=== PATIENT | female | born 1990 | race Caucasian/White ===

== ENCOUNTER → 2019-11-23 08:28 | Outpatient (BNVA) | payer MEDICAID, SELFPAY | PROVIDERS: PCP Family Medicine; Referring Provider Family Medicine; Visit Provider Psychiatry & Neurology Neurology | DX: G47.33 Obstructive sleep apnea (adult) (pediatric) (principal); Z99.89 Dependence on other enabling machines and devices | CPT/HCPCS: 99213 ==

== ENCOUNTER → 2019-12-31 10:13 | Outpatient (BNVA) | payer MEDICAID, SELFPAY | PROVIDERS: PCP Family Medicine; Visit Provider Physician Assistant | DX: Z76.89 Persons encountering health services in other specified circumstances (principal) ==

== ENCOUNTER 2020-01-13 08:30 | Outpatient (REF) | payer MEDICAID, SELFPAY | END 2020-01-13 08:31 | disposition home or self-care (01) | LOC: HO.LAB 08:30 | PROVIDERS: Visit Provider Internal Medicine | DX: Z20.828 Contact with and (suspected) exposure to other viral communicable diseases (principal) | CPT/HCPCS: C9803; U0003 ==

== ENCOUNTER → 2020-01-25 08:20 | Outpatient (BNVA) | payer MEDICAID, SELFPAY | PROVIDERS: PCP Family Medicine; Visit Provider Physician Assistant | DX: Z76.89 Persons encountering health services in other specified circumstances (principal) ==

== ENCOUNTER → 2020-02-15 08:59 | Outpatient (BNVA) | payer MEDICAID, SELFPAY | PROVIDERS: PCP Family Medicine; Visit Provider Psychiatry & Neurology Neurology | DX: Z76.89 Persons encountering health services in other specified circumstances (principal) ==

== ENCOUNTER 2020-02-28 10:47 | Outpatient (REF) | payer MEDICAID, SELFPAY ==
--- NOTE | 2020-02-28 11:52 | ECG_ITS ---
Test Reason : SOB Blood Pressure : / mmHG Vent. Rate : 088 BPM Atrial Rate : 088 BPM P-R Int : 118 ms QRS Dur : 090 ms QT Int : 396 ms P-R-T Axes : 003 009 016 degrees QTc Int : 479 ms Normal sinus rhythm Normal ECG When compared to the previous EKG of 10 jul 2018, no significant changes Referred By: Ana Maria Dye Electronically Signed By:CALUDIA MEZA
--- NOTE | 2020-02-28 12:09 | XR_ITS ---
EXAMINATION: XR CHEST CLINICAL INFORMATION: Shortness of breath COMPARISON: Previous chest x-rays most recent June 2018 TECHNIQUE: 2 views of the chest were obtained. FINDINGS: No significant abnormality is noted involving the heart, lungs, mediastinum, bony thorax or soft tissues. XR/XR chest 2V IMPRESSION: Unremarkable examination.
[2020-02-28 12:45] LABS: MANUAL DIFF FLAG NO
[2020-02-28 12:53] LABS: Basophils Percent Auto 0.5 % (0-2); Eosinophils Absolute Auto 0.1 X10*3/uL (0.0-0.4); Eosinophils Percent Auto 0.8 % (0-4); Hematocrit 44.1 % (37-47); Hemoglobin 15.1 g/dl (12.0-16.0); Imm Gran Abs Auto 0.02 X10*3/uL (0.00-0.03); Imm Gran Pct Auto 0.3 % (0.0-0.4); Lymphocytes Absolute Auto 1.7 X10*3/uL (1.2-4.9); Lymphocytes Percent Auto 28.1 % (20-40); Mean Corpuscular HGB Conc 34.2 g/dl (31.0-35.0); Mean Corpuscular Hemoglobin 28.7 pg (27.0-33.0); Mean Corpuscular Volume 83.8 fL (80-98); Mean Platelet Volume 10.1 fL (9.4-12.3); Monocytes Absolute Auto 0.4 X10*3/uL (0.1-1.2); Monocytes Percent Auto 6.4 % (2-11); Neutrophils Absolute Auto 3.9 X10*3/uL (2.0-8.3); Neutrophils Percent Auto 63.9 % (45-73); Platelet Count 241 X10*3/uL (160-400); Red Blood Count 5.26 X10*6/uL (4.20-5.50); Red Cell Distribution Width 12.1 % (11.0-16.0); White Blood Count 6.1 X10*3/uL (4.8-10.8)
[2020-02-28 13:08] LABS: Alanine Aminotransferase 34 U/L (0-31); Albumin Level 3.9 g/dL (3.5-5.0); Alkaline Phosphatase 101 U/L (39-117); Anion Gap 15 (12-20); Aspartate Amino Transferase 27 U/L (5-31); Bilirubin Total 0.5 mg/dL (0.0-1.0); Blood Urea Nitrogen 12 mg/dL (9-16); C Reactive Protein 1.51 mg/dL (< or = 0.50); Calcium 9.3 mg/dL (8.4-10.2); Carbon Dioxide 25 mmol/L (22-29); Chloride 101 mmol/L (96-108); Cholesterol 240 mg/dL; Estimated Glomerular Filt Rate > 60; Glucose Fasting 337 mg/dL (60-99); HDL Cholesterol 40 mg/dL; Iron 58 mcg/dL (30-160); LDL Cholesterol Calculated 150 mg/dl; Percent Iron Saturation 14 % (15-50); Potassium 3.9 mmol/l (3.3-5.1); Sodium 137 mmol/L (135-145); Total Iron Binding Capacity 425 mcg/dL (228-428); Total Protein 7.6 g/dL (6.5-8.0); Triglycerides 252 mg/dL; Unsaturated Iron Binding 367 ug/dL
[2020-02-28 13:17] LABS: Estimated Average Glucose 315 mg/dL; Hemoglobin A1c % 12.6 %
[2020-02-28 13:34] LABS: Ferritin 55 ng/mL (10-122); TSH reflex Free T4 2.17 mIU/mL (0.32-4.0); Vitamin D 25-OH Total 16.7 ng/mL (>30)
[2020-02-28 13:42] LABS: Folate 12.9 ng/mL (> or = 4.0); Vitamin B12 598 pg/mL (200-900)
[2020-02-29 17:33] LABS: Insulin Level Total 15.8 uIU/mL
[2020-03-01 10:42] LABS: Calcium (PTHI) 9.1 mg/dL (8.6-10.2); PTHI 68 pg/mL (14-64)
[2020-03-02 07:07] LABS: Zinc 65 mcg/dL (60-130)
[2020-03-02 18:33] LABS: Vitamin B1 13 nmol/L (8-30)
[2020-03-04 16:07] LABS: Vitamin A 88 mcg/dL (38-98)
== END 2020-02-28 10:48 | disposition home or self-care (01) ==
LOC: HO.LAB 10:47
PROVIDERS: Absent Provider Physician Assistant; PCP Family Medicine; Referring Provider Family Medicine; Visit Provider Surgery
DX: Z01.818 Encounter for other preprocedural examination (principal); E66.01 Morbid (severe) obesity due to excess calories; E55.9 Vitamin D deficiency, unspecified; R06.02 Shortness of breath; Z68.38 Body mass index [BMI] 38.0-38.9, adult; Z79.899 Other long term (current) drug therapy
CPT/HCPCS: 36415; 71046; 80053; 80061; 82306; 82607; 82728; 82746; 83036; 83525; 83540; 83970; 84425; 84443; 84590; 84630; 85025; 86140; 93005; 99212

== ENCOUNTER → 2020-03-02 08:05 | Outpatient (BNVA) | payer MEDICAID, SELFPAY | PROVIDERS: PCP Family Medicine; Referring Provider Family Medicine; Visit Provider Dietitian, Registered ==

== ENCOUNTER → 2020-03-21 08:08 | Outpatient (BNVA) | payer MEDICAID, SELFPAY | PROVIDERS: PCP Family Medicine; Visit Provider Dietitian, Registered ==

== ENCOUNTER → 2020-06-05 11:10 | Outpatient (BNVA) | payer MEDICAID, SELFPAY | PROVIDERS: PCP Family Medicine; Visit Provider Obstetrics & Gynecology | DX: Z13.89 Encounter for screening for other disorder (principal) | CPT/HCPCS: 99202 ==

== ENCOUNTER → 2020-07-07 11:06 | Outpatient (BNVA) | payer MEDICAID, SELFPAY | PROVIDERS: Visit Provider Obstetrics & Gynecology | DX: Z30.09 Encounter for other general counseling and advice on contraception (principal) | CPT/HCPCS: 99212 ==

== ENCOUNTER 2020-07-13 06:04 | Day surgery (SDC) | payer MEDICAID, SELFPAY ==
--- NOTE | 2020-07-12 13:52 | HO.ANESPROP2 ---
Documented by User: Rebecca Castorena 07/12/20 13:54 HPI - Anesthesia Eval Consult details Narrative: 30yo F for Bilateral Tubal Ligation Laparoscopic and Nexplanon Removal PMFSH Active Problems Active Problems: All Active Problems (Updated 02/28/20 @ 15:06 by Stacia Frausto MD) Vitamin D deficiency (Acute) Body mass index (BMI) of 38.0 to 38.9 in adult (Acute) Obesity (Acute) Type 2 diabetes mellitus (Acute) Obstructive sleep apnea (Acute) Past Medical History Medical History Asthma Body mass index (BMI) of 38.0 to 38.9 in adult Obesity Sleep apnea with use of continuous positive airway pressure (CPAP) Type 2 diabetes mellitus Family History Family History Father HTN (hypertension) Mother No problems noted. Sister Arthritis Knee problem Sister Arthritis Allergies Knee problem Brother No problems noted. Brother No problems noted. Son No problems noted. Son Autism Surgical History Surgical History History of surgery on wrist Hx of section Social History Social History Alcohol intake: never Patient Tobacco Use Status: Never used Tobacco Use of substances other than those prescribed or required for medical reasons: No Are you DNR?: No Advance Directives: No Advance Directives Information Provided: Yes Meds Allergies Allergy/AdvReac Type Severity Reaction Status Date / Time No Known Allergies Allergy Verified 07/07/20 11:19 Home Medications Medication Instructions Recorded Confirmed Last Taken Type dulaglutide 1.5 mg/0.5 mL 1.5 mg SUBCUT QWEEK 12/29/19 02/28/20 07/06/20 History subcutaneous pen injector metformin 1,000 mg tablet 1,000 mg PO BID 12/29/19 02/28/20 Unknown History Exam Exam Date and Time: July 12, 2020 1352 Narrative Narrative: EKG 02/2020 Vent. Rate : 088 BPM Atrial Rate : 088 BPM P-R Int : 118 ms QRS Dur : 090 ms QT Int : 396 ms P-R-T Axes : 003 009 016 degrees QTc Int : 479 ms Normal sinus rhythm Normal ECG When compared to the previous EKG of 10 jul 2018, no significant changes Assessment and Plan Assessment Anesthesia Assessment: Chart Reviewed Documented by User: Latosha Xiao 07/13/20 07:24 PMF Past Medical History Medical History Asthma Body mass index (BMI) of 38.0 to 38.9 in adult Obesity Sleep apnea with use of continuous positive airway pressure (CPAP) Type 2 diabetes mellitus Family History Family History Father HTN (hypertension) Mother No problems noted. Sister Arthritis Knee problem Sister Arthritis Allergies Knee problem Brother No problems noted. Brother No problems noted. Son No problems noted. Son Autism Surgical History Surgical History History of surgery on wrist Hx of section Social History Social History Alcohol intake: never Patient Tobacco Use Status: Never used Tobacco Use of substances other than those prescribed or required for medical reasons: No Are you DNR?: No Advance Directives: No Advance Directives Information Provided: Yes Meds Allergies Allergy/AdvReac Type Severity Reaction Status Date / Time No Known Allergies Allergy Verified 07/07/20 11:19 Home Medications Medication Instructions Recorded Confirmed Last Taken Type dulaglutide 1.5 mg/0.5 mL 1.5 mg SUBCUT QWEEK 12/29/19 02/28/20 07/06/20 History subcutaneous pen injector metformin 1,000 mg tablet 1,000 mg PO BID 12/29/19 02/28/20 Unknown History Exam Airway Mallampati Class: II TM Dist: >3cm Neck ROM: Full Loose/Missing/Broken Teeth: No Heart: RRR Lungs: CTA Assessment and Plan Assessment Anesthesia Assessment: Anesthesia Plan Discussed and Chart Reviewed Final Anesthetic Review NPO: Yes ASA Class: III Final Preanesthetic Review: Meds/Allgs Chart Reviewed, Consent Obtained/Reviewed and Anes Risks/Benef Reviewed Patient Risk: Intermediate Procedure Risk: Intermediate Anesthetic Plan Anesthetic Plan: GA Disposition: Standard PACU
[2020-07-13] VITALS (8 sets, daily range): BP systolic 100–121; BP diastolic 63–83; PULSE 80–103; RESP 16–18; TEMP 36.1–36.2; O2SAT 94–98; BMI 37.3
[2020-07-13 06:20] LABS: UPreg QC Valid YES; Urine Pregnancy NEGATIVE (NEGATIVE)
[2020-07-13 06:37] LABS: Glucose, Whole Blood 319 mg/dL (60-115)
[2020-07-13] MEDS: Acetaminophen 325 MG TABLET 650 MG PO (06:38)
[2020-07-13] MEDS: Lactated Ringers 1,000 ML 50 ML IV (06:50)
--- NOTE | 2020-07-13 07:17 | MHC.SHP ---
Pre-Procedural Eval Section A The patient is an INPATIENT: No Changes since office visit: No Cold of Flu in the past 2 weeks, No New Medical Problems, No Changes in Medication and No Patient answered all questions The History & Physical has been completed within 30 days and I have reviewed it.: Yes Section B Chief Complaint: Unwanted Fertility Allergies: Allergies Allergy/AdvReac Type Severity Reaction Status Date / Time No Known Allergies Allergy Verified 07/07/20 11:19 Plan I have reviewed the history and physical and performed a pertinent physical examination on my patient. No changes have occurred unless specified.
[2020-07-13] MEDS: Insulin Regular, Human 100 UNIT/ML 3 ML VIAL 10 UNIT SUBCUT (07:18)
--- NOTE | 2020-07-13 07:18 | W.PM.OPN ---
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 Jose Rosa is a 30 year old (history of stillbirth) who has completed her family planning and desires a permanent form of sterilization. Surgical Risks: The patient was informed of the risks and benefits of the procedure. Risks included but were not limited to bleeding, infection, injury to the vulva, vagina, or cervix, and uterine perforation. The patient was counseled on the risk of sterilization failure being about 1% on average. The patient was informed that in the event a occurs, the risk of ectopic is increased. The patient expressed understanding of the risks involved, all questions were answered, and the patient consented to the procedure. The patient had valid sterilization consent at the time of the procedure. The patient was taken to the operating room where a time out was performed to confirm correct patient and correct procedure. General anesthesia was established. The patient was then positioned on the operating table in the dorsal lithotomy position with the legs supported using stirrups. All pressure points were padded and a Darlyn hugger was placed to maintain control of core body temperature. The patient was then prepped and draped in the usual sterile fashion. A red rubber catheter was inserted and 100mL urine obtained. A sponge stick was placed in the vagina for uterine manipulation. Attention was turned to the abdomen where a 5mm horizontal infraumbilical incision was made. The 5mm trocar was introduced under direct visualization using the laparoscopy within the sleeve of the trocar. After intra-abdominal placement had been confirmed, the trocar was removed leaving the sleeve in place. The camera was introduced and pneumoperitoneum was established using carbon dioxide. Inspection of the abdominal cavity showed that the anterior surface of the uterus was adherent to the anterior abdominal wall. No other gross abnormalities appreciated, including no signs of trauma from entry. Attention was turned to the pelvis. The patient was placed into Trendelenburg position. The fallopian tubes and ovaries were visualized bilaterally. There were no abnormalities of the tubes or ovaries noted. A small incision was made on the patient's left 4cm medial to and 4cm superior to the left ASIS. A 5mm trocar was introduced through this incision under direct visualization with the laparoscope. The fallopian tubes were inspected bilaterally and the fimbriated ends of the fallopian tube were visualized bilaterally. The left fallopian tube and mesosalpinx were grasped and cauterized using Bipolar electrocautery with the Ligasure device. This was done with approximately three camacho starting medially about 1cm from the cornua and working laterally. Good cautery was confirmed. Attention was then turned to the contralateral fallopian tube and mesosalpinx which was grasped about 3cm from the cornua and cauterized with three camacho moving medially with each cauterization. Good fulguration of both tubes was then confirmed. The pneumoperitoneum was then evacuated. The laparoscope was removed and the trocar sleeves were removed. The sponge stick was removed from the vagina. The skin incisions were closed each with a single interrupted 3-0 Vicryl suture and Dermabond was applied. Good hemostasis was confirmed. The nexplanon was palpated in the left arm. The area was cleansed with betadine x3. 3mL 0.5% bupivicaine was injected below the tip of the nexplaon. A 2mm incision was made parallel to the nexplanon and the device was removed in routine fashion by grasping with a hemostat and applying gentle traction. The area was cleaned and steri strips placed. The patient was transferred to the recovery room in stable condition. All needle, sponge, and instrument counts were noted to be correct x2 at the end of the procedure.
--- NOTE | 2020-07-13 07:20 | PC.NURSE ---
Blood sugar [address] Britton and Dr. Xiao notified. New order for 10 units of regular insulin. This administered in right posterior upper arm, tolerated well. Dr. Easton aware.
[2020-07-13 08:52] LABS: Glucose, Whole Blood 259 mg/dL (60-115)
[2020-07-13] MEDS: oxyCODONE HCl Immed Release 5 MG TABLET PO (09:34)
== END 2020-07-13 10:06 | disposition home or self-care (01) ==
PROVIDERS: PCP Family Medicine; Visit Provider Obstetrics & Gynecology
PROC: (CPT 58670; principal; 2020-07-13 07:30)
DX: Z30.2 Encounter for sterilization (principal); Z30.46 Encounter for surveillance of implantable subdermal contraceptive; J45.909 Unspecified asthma, uncomplicated; E66.9 Obesity, unspecified; Z68.38 Body mass index [BMI] 38.0-38.9, adult; E11.9 Type 2 diabetes mellitus without complications; G47.33 Obstructive sleep apnea (adult) (pediatric); Z99.89 Dependence on other enabling machines and devices; Z79.84 Long term (current) use of oral hypoglycemic drugs
CPT/HCPCS: 58670; 11982; 81025; 82947; J1100; J1170; J1885; J2250; J2405; J3010

== ENCOUNTER 2020-07-14 08:18 | Outpatient (REF) | payer MEDICAID, SELFPAY ==
--- NOTE | ~2020-07-14 | US_ITS ---
EXAMINATION: US ABDOMEN COMPLETE CLINICAL INFORMATION: Right upper quadrant pain. COMPARISON: Ultrasound abdomen complete 04/07/2019. CT abdomen and pelvis 07/07/2011. TECHNIQUE: Real-time imaging of the abdominal viscera. FINDINGS: PANCREAS: Normal. ABDOMINAL AORTA: The proximal, mid, and distal segments are normal in caliber. INFERIOR VENA CAVA: Visualized portions are normal. LIVER: The liver is normal in size. The liver contour is normal. There is diffuse hepatic echogenicity likely fatty infiltration. No focal hepatic lesion. There is no intrahepatic biliary duct dilatation seen. GALLBLADDER: The gallbladder is physiologically distended. Multiple mobile gallstones are present. No evidence of gallbladder wall thickening or pericholecystic fluid. COMMON BILE DUCT: Normal in caliber measuring 0.3 cm in diameter. RIGHT KIDNEY: Normal. No hydronephrosis. No renal calculi or focal parenchymal lesions. The kidney measures 12.8 cm in maximum dimension. LEFT KIDNEY: Normal. No hydronephrosis. No renal calculi or focal parenchymal lesions. The kidney measures 12.6 cm in maximum dimension. SPLEEN: Normal. The spleen measures 10.5 cm in maximum dimension. FREE FLUID: None. US/US abdomen complete IMPRESSION: Diffuse hepatic steatosis without focal lesion. Cholelithiasis. Rest of the abdominal ultrasound is unremarkable.
== END 2020-07-14 08:19 | disposition home or self-care (01) ==
LOC: HO.HMGCX 08:18
PROVIDERS: PCP Family Medicine; Visit Provider Family Medicine
DX: K80.20 Calculus of gallbladder without cholecystitis without obstruction (principal); R10.11 Right upper quadrant pain; E78.1 Pure hyperglyceridemia
CPT/HCPCS: 76700

== ENCOUNTER → 2020-07-19 14:32 | Outpatient (BNVA) | payer MEDICAID, SELFPAY | PROVIDERS: PCP Family Medicine; Referring Provider Family Medicine; Visit Provider Surgery | DX: K80.20 Calculus of gallbladder without cholecystitis without obstruction (principal); E66.9 Obesity, unspecified | CPT/HCPCS: 99202 ==

== ENCOUNTER → 2020-07-28 11:28 | Outpatient (BNVA) | payer MEDICAID, SELFPAY | PROVIDERS: Visit Provider Obstetrics & Gynecology | DX: Z30.09 Encounter for other general counseling and advice on contraception (principal) | CPT/HCPCS: 99212 ==

== ENCOUNTER 2020-08-11 07:41 | Day surgery (SDC) | payer MEDICAID, SELFPAY ==
[2020-08-07 12:20] VITALS: BMI 37.9
--- NOTE | 2020-08-10 09:52 | HO.ANESPROP2 ---
HPI - Anesthesia Eval Consult details Narrative: 30yo F for Cholecystectomy Laparoscopic, Poss open s/p tubal 07/13/20 with GA-ETT 7 Uncontrolled DM per pt - required Insulin regular 10 units prior to tubal for POC = 319 PMFSH Active Problems Active Problems: All Active Problems (Updated 07/19/20 @ 14:40 by Iain Friend MD) Obstructive sleep apnea (Acute) Vitamin D deficiency (Acute) H/O tubal ligation (Acute) Gallstones (Acute) Body mass index (BMI) of 38.0 to 38.9 in adult (Acute) Obesity (Acute) Type 2 diabetes mellitus (Acute) Past Medical History Medical History (Updated 07/19/20 @ 14:40 by Iain Friend MD) Asthma Body mass index (BMI) of 38.0 to 38.9 in adult Gallstones Obesity Sleep apnea with use of continuous positive airway pressure (CPAP) Type 2 diabetes mellitus Family History Family History (Updated 07/19/20 @ 14:44 by STARLA Man) Father HTN (hypertension) Mother No problems noted. Sister Arthritis Knee problem Sister Arthritis Allergies Knee problem Brother No problems noted. Brother No problems noted. Son No problems noted. Son Autism Family/Other Breast cancer Surgical History Surgical History (Updated 08/07/20 @ 12:09 by Sol Killian) H/O tubal ligation History of surgery on wrist Hx of section Social History Social History Alcohol intake: never Patient Tobacco Use Status: Never used Tobacco Meds Allergies Allergy/AdvReac Type Severity Reaction Status Date / Time No Known Allergies Allergy Verified 07/28/20 11:29 Home Medications Medication Instructions Recorded Confirmed Last Taken Type dulaglutide 1.5 mg/0.5 mL 1.5 mg SUBCUT QWEEK 12/29/19 08/07/20 07/06/20 History subcutaneous pen injector metformin 1,000 mg tablet 1,000 mg PO BID 12/29/19 08/07/20 Unknown History Exam Exam Date and Time: August 10, 2020 0952 Height,Weight and Vital Signs: Height 5 ft 3 in Weight 97.2 kg Assessment and Plan Assessment Anesthesia Assessment: Chart Reviewed
[2020-08-11] VITALS (12 sets, daily range): BP systolic 107–132; BP diastolic 70–81; PULSE 63–98; RESP 12–18; TEMP 36.3–36.4; O2SAT 93–98
[2020-08-11 08:02] LABS: Glucose, Whole Blood 326 mg/dL (60-115)
[2020-08-11] MEDS: Lactated Ringers 1,000 ML 100 ML IVCONT (08:21)
[2020-08-11] MEDS: Acetaminophen 325 MG TABLET 650 MG PO (08:22)
[2020-08-11] MEDS: Insulin Regular, Human 100 UNIT/ML 3 ML VIAL 10 UNIT SUBCUT (08:23)
--- NOTE | 2020-08-11 08:43 | MHC.SHP ---
Pre-Procedural Eval Section A Date of Service: 08/11/20 Section B Chief Complaint: Gallstones Allergies: Allergies Allergy/AdvReac Type Severity Reaction Status Date / Time No Known Allergies Allergy Verified 07/28/20 11:29 Plan I have reviewed the history and physical and performed a pertinent physical examination on my patient. No changes have occurred unless specified.
--- NOTE | 2020-08-11 08:51 | PC.NURSE ---
PATIENT'S POC AT 0850 EQUALS 316 (after 10 units regular insulin given). PT AWAKE, A/O X'S 3 WITHOUT COMPLAINT.
[2020-08-11 08:53] LABS: Glucose, Whole Blood 316 mg/dL (60-115)
--- NOTE | 2020-08-11 10:13 | W.PM.OPN ---
Operative Note Operative Note Date of Service: 08/11/20 Narrative: Preop diagnosis: Symptomatic gallstones Postop diagnosis: The same Procedure: Laparoscopic cholecystectomy Surgeon: Iain Friend MD No respiratory therapy assistant The patient is a 30-year-old female with periodic right upper quadrant pain and tenderness and known gallstones. Since her symptoms seem to be secondary to her gallbladder disease, she wanted to proceed with cholecystectomy. She understood the technique of laparoscopic cholecystectomy and possible open cholecystectomy. She was aware of the risks, benefits, and alternatives. Her blood sugars have been high because of her diabetes. This improved with insulin administration preoperatively. She was brought to the operating room and placed supine on the table under general anesthesia via endotracheal tube. The abdomen is prepped and draped in the usual sterile fashion. A surgical time-out was done. The patient received Cefotan 2 g IV preoperatively. I made a short supraumbilical incision using a blade 15. And this was carried down through the full-thickness of the skin and subcutaneous fat down to the fascia. The fascia was incised and the peritoneum was entered. Through this incision, we positioned a Shabbir port. Pneumoperitoneum was insufflated to a pressure 15 minutes mercury. From here on, the rest of procedure was done under vision with a 10 mm scope. with laparoscopic visualization, inserted 5/12 mm port in the epigastric area below the subcostal margin. 5 mm port introduced a small incision below the subcostal margin along the anterior axillary line and the midclavicular line. Graspers were placed through these working ports. The patient was placed in head-up and [id number] position. The grasper was applied on the fundus of the gallbladder and this was used to retract the gallbladder cephalad. Another grasper was applied on the pouch of the gallbladder and this was used to retract the gallbladder laterally. At this point therefore, the gallbladder was being retracted in cephalad and lateral fashion to put the area of the cystic duct on stretch. I carefully freed up the neck of the gallbladder from the peritoneal attachments right carefully dissect in this with the [place] dissector. By doing so I was able to visualize the cystic duct. I continued to dissect the cystic duct bluntly with the [place] dissector to define this. Was able to achieve a critical view of the path cystic triangle by doing this. The cystic artery was also seen posterior and adjacent to this cystic duct. With the anatomy confirmed, I proceeded to apply clips on the cystic duct with 2 clips being applied distally. The cystic duct was transected between clips using Endo scissors. I continued to dissect the rest of the peritoneum of the gallbladder with the [place] dissector to allow me to have better mobilization and retraction. By doing so was able to clearly visualize the cystic artery as well. Clips were applied and the cystic artery was transected between clips. With traction on the gallbladder away from the liver bed, I proceeded to then examine the rest of the hilum and there were no other tubular structures seen here. I therefore used the electrocautery spatula to divide across the hilum to reach the interface of the gallbladder wall and the liver bed. I incised the peritoneum and defined a plane of dissection between the gallbladder wall and the liver bed using a combination of blunt dissection with the tip of the spatula and electrocautery itself. I continued to separate the gallbladder from the liver bed along this plane of dissection using this dissection although the fundus until the entire gallbladder was completely . The gallbladder was retrieved through an endobag through the umbilical incision. I reinserted all ports and insufflated. Examined the area of dissection and this 1 was noted to be hemostatic and dry without any bleeding or any evidence of bile leak I observed all 4 quadrants of the peritoneal cavity. There were adhesions in the lower abdomen likely from her recent 2 tubal ligation. However, there was note of good hemostasis and there was no evidence of any bowel injury. I therefore desufflated through the port sites. All ports were removed under vision with the laparoscope.. I removed the Shabbir port last. I closed the fascia of the umbilical incision with a [id number] Dexon 0 stitch. Skin closure was achieved on all incisions using Dexon 4-0 subcuticular running sutures. All incisions were infiltrated with Marcaine 0.5% for postop TERRY. Dressings were applied. The procedure was then completed The patient tolerated the procedure well. There were no complications noted. Initial and final counts of sponges and instruments were correct. Estimated blood loss was about 20 cc . The patient was then extubated without difficulty and transferred to the recovery room with stable vital signs.
[2020-08-11 10:21] LABS: Glucose, Whole Blood 295 mg/dL (60-115)
--- NOTE | 2020-08-11 10:21 | PM.OP ---
Brief Operative Note Date of Service: 08/11/20 Pre-op diagnosis: Gallstones Post-op diagnosis: same Procedure: laparoscopic cholecystectomy Surgeon: Iain Friend MD Anesthesia: GETA Was an Chairman Of The Board used for this Procedure?: No Estimated blood loss (mL): 20 Pathology: other ( gallbladder) Condition: stable Disposition: PACU
[2020-08-11] MEDS: fentaNYL citrate/PF 100 MCG/2 ML VIAL 25 MCG IVPUSH ×2 (10:40→10:50)
[2020-08-11] MEDS: oxyCODONE HCl Immed Release 5 MG TABLET 10 MG PO (10:41)
== END 2020-08-11 12:01 | disposition home or self-care (01) ==
PROVIDERS: PCP Family Medicine; Visit Provider Surgery
PROC: 0FT44ZZ Resection of Gallbladder, Percutaneous Endoscopic Approach (ICD-10-PCS; CPT 47562; principal; 2020-08-11 09:10)
DX: K80.10 Calculus of gallbladder with chronic cholecystitis without obstruction (principal); K82.8 Other specified diseases of gallbladder; E11.9 Type 2 diabetes mellitus without complications; G47.33 Obstructive sleep apnea (adult) (pediatric); E55.9 Vitamin D deficiency, unspecified; J45.909 Unspecified asthma, uncomplicated; E66.9 Obesity, unspecified; Z79.84 Long term (current) use of oral hypoglycemic drugs; Z79.899 Other long term (current) drug therapy; Z99.89 Dependence on other enabling machines and devices; Z68.38 Body mass index [BMI] 38.0-38.9, adult
CPT/HCPCS: 47562; 82947; 88304; J1100; J1885; J2250; J2405; J3010

== ENCOUNTER → 2021-09-11 10:39 | Outpatient (BNVA) | payer MEDICAID, SELFPAY | PROVIDERS: PCP Family Medicine; Referring Provider Family Medicine; Visit Provider Nurse Practitioner | DX: K91.5 Postcholecystectomy syndrome (principal); K21.9 Gastro-esophageal reflux disease without esophagitis; Z79.899 Other long term (current) drug therapy | CPT/HCPCS: 99202; 99212 ==

== ENCOUNTER 2021-10-18 08:22 | Emergency (ER) | payer OTHER, SELFPAY ==
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
[2021-10-18 08:26] VITALS: BP 129/89; PULSE 105; O2SAT 98
[2021-10-18 08:28] VITALS: BP 113/65; PULSE 95; RESP 18; TEMP 36.9; O2SAT 97; BMI 36.6
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
[2021-10-18] MEDS: Ibuprofen 600 MG TABLET PO (10:00)
== END 2021-10-18 10:03 | disposition home or self-care (01) ==
PROVIDERS: Emergency Provider Emergency Medicine Emergency Medical Services; PCP Family Medicine
DX: S56.911A Strain of unspecified muscles, fascia and tendons at forearm level, right arm, initial encounter (principal); S76.012A Strain of muscle, fascia and tendon of left hip, initial encounter; W19.XXXA Unspecified fall, initial encounter; Y93.9 Activity, unspecified; Y92.9 Unspecified place or not applicable; Y99.9 Unspecified external cause status; Z79.899 Other long term (current) drug therapy
CPT/HCPCS: 73090; 73502; 99283

== ENCOUNTER 2021-11-15 11:41 | Outpatient (REF) | payer OTHER, MEDICAID, SELFPAY ==
--- NOTE | 2021-11-15 | EMG_ITS ---
Bilateral tibial and peroneal motor studies were performed. Bilateral sural and right superficial peroneal study was performed. Tibial H reflexes were obtained and needle examination was done. 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 MD MAN Klein/GUS / [id number]
== END 2021-11-15 11:42 | disposition home or self-care (01) ==
LOC: HO.NEURO 11:41
PROVIDERS: PCP Family Medicine; Visit Provider Family Medicine
DX: M25.561 Pain in right knee (principal); M25.562 Pain in left knee; R20.0 Anesthesia of skin
CPT/HCPCS: 95886; 95911

== ENCOUNTER 2022-05-02 10:47 | Outpatient (REF) | payer MEDICAID, SELFPAY ==
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
== END 2022-05-02 10:48 | disposition home or self-care (01) ==
LOC: HO.CT 10:47
PROVIDERS: PCP Family Medicine; Visit Provider Emergency Medicine
DX: S09.90XA Unspecified injury of head, initial encounter (principal)
CPT/HCPCS: 70450

== ENCOUNTER → 2022-06-26 08:24 | Outpatient (REF) | payer MEDICAID, SELFPAY ==
--- NOTE | ~2022-06-26 | NM_ITS ---
EXAMINATION: RADIONUCLIDE SOLID FOOD GASTRIC EMPTYING 4-HOUR STUDY CLINICAL INFORMATION: Type 2 diabetes mellitus with hyperglycemia. Nausea. COMPARISON: No previous gastric emptying study is available for comparison. TECHNIQUE: A standard meal consisting of 4 oz of Egg Beaters brand equivalent tagged with 850 microcuries Tc-99m Sulfur Colloid, 8 oz water and 2 slices of toast with jelly was administered orally to the patient. Images were obtained using a dual head gamma camera in the anterior and posterior projections over of the stomach immediately post ingestion and at hourly intervals up to 4 hours post ingestion. The anterior and posterior counts at each time interval were averaged using the geometric mean and expressed as percentage of the immediate post ingestion counts. FINDINGS: There is good visualization of activity in the stomach immediately post ingestion. As the study progresses, there is good clearance of activity from the stomach and visualization of progressively increasing small bowel activity. By the end of the study, there is almost no retention noted in the stomach. Retention in the stomach at each time interval was: 1 hour 81% (normal 37%-90%) 2 hours 49% (normal 30%-60%) 3 hours 19% 4 hours 9% (normal 0%-10%) NM/NM gastric emptying study IMPRESSION: Normal 4-hour solid food gastric emptying study.
== END ==
LOC: HO.NUCMED 08:24
PROVIDERS: Visit Provider Family Medicine
DX: R11.0 Nausea (principal); E11.65 Type 2 diabetes mellitus with hyperglycemia
CPT/HCPCS: 78264; A9541

== ENCOUNTER 2022-08-29 12:28 | Outpatient (REF) | payer MEDICAID, SELFPAY ==
[2022-08-29 17:15] LABS: Creatinine Urine 164.42 mg/dL; Microalbum/Creatinine Ratio Ur 54.1 ug/mg cr
[2022-08-29 18:36] LABS: CT PCR NOT DETECTED (Not Detect.); NG PCR NOT DETECTED (Not Detect.)
[2022-08-30 08:20] LABS: Syphilis Screen Reactive (Nonreactive)
[2022-08-30 08:45] LABS: HBS Num1 48.86 mIU/mL (0-7.99); HIV AB/AG Nonreactive (Nonreactive); HIV Num 1 0.05 S/CO (0.00-0.99); ~Hepatitis B Surface Antibody REACTIVE (Nonreactive)
[2022-08-30 08:47] LABS: ~HepC Num1 0.08 S/CO (0.00-0.79); ~Hepatitis C Antibody Nonreactive (Nonreactive)
== END 2022-08-29 12:29 | disposition home or self-care (01) ==
LOC: HO.HHCL 12:28
PROVIDERS: Visit Provider Family Medicine
DX: Z11.4 Encounter for screening for human immunodeficiency virus [HIV] (principal); Z11.3 Encounter for screening for infections with a predominantly sexual mode of transmission; E11.65 Type 2 diabetes mellitus with hyperglycemia
CPT/HCPCS: 0353U; 82043; 86706; 86780; 86803; 87389

== ENCOUNTER 2022-09-24 12:44 | Outpatient (REF) | payer MEDICAID, SELFPAY ==
[2022-09-25 03:40] LABS: Syphilis Screen Reactive (Nonreactive)
[2022-10-01 11:05] LABS: RPR Quantitative Non-Reactive (Nonreactive); T.Pallidum Particle Agg Test Reactive (Nonreactive)
== END 2022-09-24 12:45 | disposition home or self-care (01) ==
LOC: HO.HHCL 12:44
PROVIDERS: Visit Provider Family Medicine
DX: Z11.3 Encounter for screening for infections with a predominantly sexual mode of transmission (principal)
CPT/HCPCS: 36415; 86592; 86780

== ENCOUNTER 2022-10-21 18:57 | Outpatient (REF) | payer MEDICAID, SELFPAY ==
[2022-10-21 19:56] LABS: Influenza A PCR NEGATIVE (Negative); Influenza B PCR NEGATIVE (Negative); Resp Syncy Virus RNA Qual PCR NEGATIVE (Negative); SARS COV2 PCR INHOUSE NEGATIVE (Negative)
== END 2022-10-21 18:58 | disposition home or self-care (01) ==
LOC: HO.HHCLNP 18:57
PROVIDERS: Visit Provider Nurse Practitioner Family
DX: J02.9 Acute pharyngitis, unspecified (principal); R05.1 Acute cough; Z20.822 Contact with and (suspected) exposure to COVID-19
CPT/HCPCS: 0241U

== ENCOUNTER 2022-11-11 13:45 | Outpatient (REF) | payer MEDICAID, SELFPAY ==
[2022-11-11 15:55] LABS: MANUAL DIFF FLAG NO
[2022-11-11 16:03] LABS: Basophils Percent Auto 0.3 % (0-2); Eosinophils Percent Auto 0.3 % (0-4); Hematocrit 41.7 % (37.0-47.0); Hemoglobin 14.3 g/dl (12.0-16.0); Imm Gran Abs Auto 0.03 X10*3/uL (0.00-0.03); Imm Gran Pct Auto 0.3 % (0.0-0.4); Lymphocytes Absolute Auto 2.5 X10*3/uL (1.2-4.9); Lymphocytes Percent Auto 28.1 % (20-40); Mean Corpuscular HGB Conc 34.3 g/dl (31.0-35.0); Mean Corpuscular Hemoglobin 29.1 pg (27.0-33.0); Mean Corpuscular Volume 84.8 fL (80.0-98.0); Mean Platelet Volume 10.6 fL (9.4-12.3); Monocytes Absolute Auto 0.4 X10*3/uL (0.1-1.2); Monocytes Percent Auto 4.6 % (2-11); Neutrophils Absolute Auto 5.8 x10*3/uL (2.0-8.3); Neutrophils Percent Auto 66.4 % (45-73); Platelet Count 274 X10*3/uL (160-400); Red Blood Count 4.92 X10*6/uL (4.20-5.50); Red Cell Distribution Width 12.6 % (11.0-16.0); White Blood Count 8.7 X10*3/uL (4.8-10.8)
[2022-11-11 16:28] LABS: Alanine Aminotransferase 39 U/L (0-31); Albumin Level 3.9 g/dL (3.5-5.0); Alkaline Phosphatase 76 U/L (39-117); Anion Gap 14 (12-20); Aspartate Amino Transferase 29 U/L (5-31); Bilirubin Total 0.4 mg/dL (0.0-1.0); Blood Urea Nitrogen 14 mg/dL (9-16); Calcium 9.4 mg/dL (8.4-10.2); Carbon Dioxide 22 mmol/L (22-29); Chloride 101 mmol/L (96-108); Estimated Glomerular Filt Rate > 60; Potassium 3.8 mmol/L (3.3-5.1); Sodium 133 mmol/L (135-145); Total Protein 7.7 g/dL (6.5-8.0)
[2022-11-11 16:35] LABS: Glucose Random 385 mg/dL (60-115)
[2022-11-11 16:37] LABS: TSH reflex Free T4 1.75 uIU/mL (0.32-4.0)
[2022-11-12 08:04] LABS: Syphilis Screen Reactive (Nonreactive)
[2022-11-12 08:15] LABS: HBS Num1 50.12 mIU/mL (0-7.99); HBc Num1 0.12 S/CO (0.00-0.79); HBsAGNum1 0.31 S/CO (0.00-0.99); HIV AB/AG Nonreactive (Nonreactive); HIV Num 1 0.05 S/CO (0.00-0.99); Hepatitis B Core Antibody Nonreactive (Nonreactive); Hepatitis B Surface Antigen Negative (Negative); ~HepC Num1 0.06 S/CO (0.00-0.79); ~Hepatitis B Surface Antibody REACTIVE (Nonreactive); ~Hepatitis C Antibody Nonreactive (Nonreactive)
[2022-11-12 11:48] LABS: CT PCR NOT DETECTED (Not Detect.); NG PCR NOT DETECTED (Not Detect.)
[2022-11-18 08:53] LABS: RPR Quantitative Non-Reactive (Nonreactive); T.Pallidum Particle Agg Test Reactive (Nonreactive)
== END 2022-11-11 13:46 | disposition home or self-care (01) ==
LOC: HO.HHCL 13:45
PROVIDERS: Visit Provider Family Medicine
DX: R63.4 Abnormal weight loss (principal); R10.32 Left lower quadrant pain; Z11.3 Encounter for screening for infections with a predominantly sexual mode of transmission; Z87.442 Personal history of urinary calculi
CPT/HCPCS: 0353U; 36415; 80053; 84443; 85025; 86592; 86704; 86706; 86780; 86803; 87086; 87340; 87389

== ENCOUNTER 2022-11-12 08:38 | Outpatient (REF) | payer MEDICAID, SELFPAY ==
[2022-11-12 12:30] LABS: Cholesterol 268 mg/dL (<200); HDL Cholesterol 39 mg/dL (>40); Triglycerides 448 mg/dL (<150)
[2022-11-12 14:22] LABS: Reflex LDLD? Yes
[2022-11-14 05:04] LABS: LDL Cholesterol Direct 145 mg/dL (<100)
== END 2022-11-12 08:39 | disposition home or self-care (01) ==
LOC: HO.HHCL 08:38
PROVIDERS: Visit Provider Family Medicine
DX: E78.2 Mixed hyperlipidemia (principal)
CPT/HCPCS: 36415; 80061; 83721

== ENCOUNTER 2022-12-04 | Outpatient (REF) | payer MEDICAID, SELFPAY | END 2022-12-04 00:01 | disposition home or self-care (01) | LOC: HO.HHCLNP | PROVIDERS: Visit Provider Student in an Organized Health Care Education/Training Program | DX: R30.0 Dysuria (principal) | CPT/HCPCS: 87086; 87088; 87186 ==

== ENCOUNTER 2022-12-06 11:33 | Outpatient (REF) | payer MEDICAID, SELFPAY ==
--- NOTE | ~2022-12-06 | US_ITS ---
EXAMINATION: US ABDOMEN COMPLETE CLINICAL INFORMATION: Left lower quadrant pain. Left flank pain. COMPARISON: Ultrasound abdomen complete 07/14/2020 and 04/07/2019. TECHNIQUE: Real-time imaging of the abdominal viscera. Limited visualization due to bowel gas and body habitus. FINDINGS: PANCREAS: Limited visualization of pancreatic tail and head. Imaged portion of pancreatic body is unremarkable. ABDOMINAL AORTA: Nonaneurysmal. INFERIOR VENA CAVA: Visualized portions are normal. LIVER: Increased hepatic parenchymal heterogeneity and echogenicity which could be associated with hepatic steatosis or hepatocellular disease and severely limits visualization. GALLBLADDER: Surgically absent. COMMON BILE DUCT: Normal in caliber measuring 0.28 cm in diameter. RIGHT KIDNEY: No hydronephrosis. No renal calculi. Renal cortical thickness is normal. Limited visualization. The kidney measures 12 cm in maximum dimension. LEFT KIDNEY: No hydronephrosis. No renal calculi. Renal cortical thickness is normal. Limited visualization. The kidney measures 11.3 cm in maximum dimension. SPLEEN: Normal. The spleen measures 11.4 cm in maximum dimension. FREE FLUID: None. US/US abdomen complete IMPRESSION: 1. Increased hepatic parenchymal heterogeneity and echogenicity which could be associated with hepatic steatosis or hepatocellular disease and severely limits visualization. 2. Gallbladder is surgically absent.
== END 2022-12-06 11:34 | disposition home or self-care (01) ==
LOC: HO.US 11:33
PROVIDERS: PCP Family Medicine; Visit Provider Family Medicine
DX: R10.31 Right lower quadrant pain (principal); Z87.442 Personal history of urinary calculi
CPT/HCPCS: 76700

== ENCOUNTER 2023-02-05 18:12 | Outpatient (REF) | payer MEDICAID, SELFPAY | END 2023-02-05 18:13 | disposition home or self-care (01) | LOC: HO.HHCLNP 18:12 | PROVIDERS: Visit Provider Nurse Practitioner Family | DX: R10.9 Unspecified abdominal pain (principal) | CPT/HCPCS: 87086; 87147 ==

== ENCOUNTER 2023-03-04 12:20 | Outpatient (REF) | payer MEDICAID, SELFPAY ==
[2023-03-04 13:34] LABS: MANUAL DIFF FLAG NO
[2023-03-04 13:40] LABS: Basophils Percent Auto 0.4 % (0-2); Eosinophils Absolute Auto 0.1 X10*3/uL (0.0-0.4); Eosinophils Percent Auto 0.6 % (0-4); Hematocrit 42.9 % (37.0-47.0); Hemoglobin 14.3 g/dl (12.0-16.0); Imm Gran Abs Auto 0.02 X10*3/uL (0.00-0.03); Imm Gran Pct Auto 0.2 % (0.0-0.4); Lymphocytes Absolute Auto 2.5 X10*3/uL (1.2-4.9); Lymphocytes Percent Auto 30.2 % (20-40); Mean Corpuscular HGB Conc 33.3 g/dl (31.0-35.0); Mean Corpuscular Hemoglobin 27.7 pg (27.0-33.0); Mean Corpuscular Volume 83.1 fL (80.0-98.0); Mean Platelet Volume 10.2 fL (9.4-12.3); Monocytes Absolute Auto 0.4 X10*3/uL (0.1-1.2); Neutrophils Absolute Auto 5.3 x10*3/uL (2.0-8.3); Neutrophils Percent Auto 63.6 % (45-73); Platelet Count 280 X10*3/uL (160-400); Red Blood Count 5.16 X10*6/uL (4.20-5.50); Red Cell Distribution Width 12.6 % (11.0-16.0); White Blood Count 8.4 X10*3/uL (4.8-10.8)
[2023-03-04 14:42] LABS: Band Neutrophils Percent 0 % (3-5); Lymphocytes Absolute Manual 2.1 X10*3/uL (1.2-4.9); Lymphocytes Percent Manual 25 % (20-40); Monocytes Absolute Manual 0.1 X10*3/uL (0.1-1.2); Monocytes Percent Manual 1 % (2-11); Neutrophils Absolute Manual 6.2 X10*3/uL (2.0-8.3); Neutrophils Percent Manual 74 % (45-73)
[2023-03-04 14:52] LABS: Platelet Estimate NORMAL (NORMAL); Platelet Morphology Comment NORMAL; RBC Morphology NORMAL
[2023-03-04 15:03] LABS: Folate 11.8 ng/mL (> or = 4.0); Vitamin B12 491 pg/mL (200-900)
[2023-03-04 15:13] LABS: Alanine Aminotransferase 41 U/L (0-31); Albumin Level 3.7 g/dL (3.5-5.0); Alkaline Phosphatase 80 U/L (39-117); Anion Gap 17 (12-20); Aspartate Amino Transferase 35 U/L (5-31); Bilirubin Total 0.3 mg/dL (0.0-1.0); Blood Urea Nitrogen 15 mg/dL (9-16); Carbon Dioxide 23 mmol/L (22-29); Chloride 102 mmol/L (96-108); Estimated Glomerular Filt Rate > 60; Ferritin 33 ng/mL (10-122); Glucose Random 278 mg/dL (60-115); Iron 47 mcg/dL (30-160); Percent Iron Saturation 12 % (15-50); Potassium 3.8 mmol/L (3.3-5.1); Sodium 138 mmol/L (135-145); TSH reflex Free T4 1.28 uIU/mL (0.32-4.0); Total Iron Binding Capacity 387 mcg/dL (228-428); Total Protein 7.6 g/dL (6.5-8.0); Unsaturated Iron Binding 340 ug/dL
== END 2023-03-04 12:21 | disposition home or self-care (01) ==
LOC: HO.HHCL 12:20
PROVIDERS: Visit Provider Family Medicine
DX: E11.65 Type 2 diabetes mellitus with hyperglycemia (principal); R42 Dizziness and giddiness; R00.0 Tachycardia, unspecified
CPT/HCPCS: 36415; 80053; 82607; 82728; 82746; 83540; 84443; 85007; 85025

== ENCOUNTER 2023-03-07 14:25 | Outpatient (REF) | payer MEDICAID, SELFPAY ==
[2023-03-07 16:42] LABS: Cholesterol 217 mg/dL (<200); HDL Cholesterol 40 mg/dL (>40); Triglycerides 465 mg/dL (<150)
[2023-03-07 16:55] LABS: Reflex LDLD? Yes
[2023-03-10 06:48] LABS: LDL Cholesterol Direct 103 mg/dL (<100)
== END 2023-03-07 14:26 | disposition home or self-care (01) ==
LOC: HO.HHCL 14:25
PROVIDERS: Visit Provider Family Medicine
DX: R10.9 Unspecified abdominal pain (principal); E11.65 Type 2 diabetes mellitus with hyperglycemia
CPT/HCPCS: 36415; 80061; 83721; 87338

== ENCOUNTER → 2023-04-08 12:52 | Outpatient (REF) | payer MEDICAID, SELFPAY ==
--- NOTE | 2023-04-08 12:56 | HM_ITS ---
Conclusion: 1. Baseline was normal sinus rhythm with average heart of 105 beats per minute 2. Frequent sinus tachycardia noted with 63% of time heart rate about 100 beats per minute 3. No significant arrhythmias or pauses noted 4. No patient reported events MTDD
[2023-04-08 18:13] LABS: Appearance Urine Turbid; Color Urine Yellow; Glucose Urine UA >=1000 mg/dL (Negative); Leukocyte Esterase Urine Negative (Negative); Nitrite Urine Negative (Negative); PH 5.5 (5.0-9.0); Specific Gravity - Urine >= 1.030 (1.005-1.025); UMIC TRIGGER UA YES; Urine Blood Negative (Negative); Urine Ketones 15 mg/dL (Negative); Urine Protein Negative (Neg-Trace)
[2023-04-08 18:19] LABS: Bacteria Urine Trace (None Seen); Hyaline Casts Urine 0-2 /LPF (0-2); RBC Urine 0-2 /HPF (0-2); WBC Urine 0-5 /HPF (0-5)
== END ==
LOC: HO.CARD 12:52
PROVIDERS: PCP Family Medicine; Visit Provider Family Medicine
DX: R35.0 Frequency of micturition (principal); R42 Dizziness and giddiness; R00.0 Tachycardia, unspecified
CPT/HCPCS: 81001; 87086; 93225

== ENCOUNTER → 2023-04-08 12:56 | Outpatient (BNV) | payer MEDICAID, SELFPAY | PROVIDERS: PCP Family Medicine; Visit Provider Internal Medicine Cardiovascular Disease | DX: R00.0 Tachycardia, unspecified (principal) | CPT/HCPCS: 93227 ==

== ENCOUNTER 2023-06-03 17:01 | Outpatient (REF) | payer MEDICAID, SELFPAY | END 2023-06-03 17:02 | disposition home or self-care (01) | LOC: HO.HHCLNP 17:01 | PROVIDERS: Visit Provider Internal Medicine | DX: N39.0 Urinary tract infection, site not specified (principal) | CPT/HCPCS: 87086 ==

== ENCOUNTER 2023-06-10 07:47 | Outpatient (AMB) | payer MEDICAID, SELFPAY ==
--- NOTE | 2023-06-10 07:51 | A.OFFVIS_ITS ---
Vital Signs 3 06/10/23 07:55 Height 5 ft 2 in Weight 198 lb 6.656 oz BMI 36.3 BP 102/61 Blood Pressure Location Rt brachial Position Sitting Pulse 97 Intake Visit Reasons: Abdominal Pains Intake Note: Sonali presents in the office for abdominal pains. CC: She states that her pains come here and there but since taking omeprazole its been under control. Allergies Seasonal Allergies Allergy (Mild, Verified 06/10/23 07:56) Runny Nose HPI HPI Abdominal Pains: Details: Assessment & Plan (1) Post-cholecystectomy syndrome: ?Code(s): K91.5 - Postcholecystectomy syndrome ?Plan: She has been struggling with post prandial diarrhea sine her GB was removed. Her stools were looser with the metformin before the cholecystectomy, but watery diarrhea commenced more severely after. She was not well educated about avoiding fats after her martha, I discussed with her.? She also does not have good insight into what constitutes a ?fatty food? so I will print her a list from our clinical nutrition site. She is not on any acid reducing medication. I will start carafate and famotidine. She has no dysphagia, some early satiety but this has been since the metformin.? After we have implemented these very basic interventions we will reassess her response in depending on her response with in decided that time if she needs any further interventions or treatments. ROV 2 weeks (2) GERD (gastroesophageal reflux disease): ?Code(s): K21.9 - Gastro-esophageal reflux disease without esophagitis ? ? ? Medications: New sucralfate (Carafate) 2 grams (2 x 1 gram) PO BEDTIME 60 tabs 3RF K91.5 - Postcholecystectomy syndrome ? famotidine (Pepcid) 40 mg? PO DAILY 30 tabs 3RF K21.9 - Noris ro-esophageal reflux disease without esophagitis ? Assessment & Plan (1) Post-cholecystectomy syndrome: ?Code(s): K91.5 - Postcholecystectomy syndrome ?Plan: She has been struggling with post prandial diarrhea sine her GB was removed. Her stools were looser with the metformin before the cholecystectomy, but watery diarrhea commenced more severely after. She was not well educated about avoiding fats after her martha, I discussed with her.? She also does not have good insight into what constitutes a ?fatty food? so I will print her a list from our clinical nutrition site. She is not on any acid reducing medication. I will start carafate and famotidine. She has no dysphagia, some early satiety but this has been since the metformin.? After we have implemented these very basic interventions we will reassess her response in depending on her response with in decided that time if she needs any further interventions or treatments. ROV 2 weeks (2) GERD (gastroesophageal reflux disease): ?Code(s): K21.9 - Gastro-esophageal reflux disease without esophagitis ? ? ? Medications: New sucralfate (Carafate) 2 grams (2 x 1 gram) PO BEDTIME 60 tabs 3RF K91.5 - Postcholecystectomy syndrome ? famotidine (Pepcid) 40 mg? PO DAILY 30 tabs 3RF K21.9 - Noris ro-esophageal reflux disease without esophagitis ? CORRESPONDENCE On 04/15/23 @ 09:58 Shamika Shirley Wrote To Shamika Shirley (2) Okay, I only saw her once in 2021 and then she disappeared. With this in such little background information I would not have any idea what to tell the primary care provider to order. I am assuming she is assessed the patient and would need to order tests according to her assessment and diagnosis/treatment plan. On 04/15/23 @ 09:12 Adelina George Wrote To Shamika Shirley Patient called and states that her PCP at [facility] has been trying to contact our office because this patient is having abdominal pains. She states that they want to know if they should order any testing for this patient before her appt. I offered an appt for this friday but she stated that her next day off of work is 06/09 so I gave her an appt for that day. TODAY'S VISIT She is having dysphagia of solid foods that get stuck at the GE jxn and her burps are sulfur like. She also has periumbilical discomfort. She will have upper abdominal bloating. She also has frequent nausea. She just started on Mounjaro so that is not the reason for her nausea. So far is not causing her constipation she still has diarrhea which she decides is ?normal for me now. ? She has no longer taking her Carafate unlikely she is suffering from bile gastritis and post cholecystectomy syndrome. I explained what this medication is for and why her symptoms are happening and she is willing to restart it. I am going to start with a liquid form sudden coat her esophagus since it sounds like she is having reflux and irritation. I am going to order an EGD for possible dilation. Return office visit in 3 weeks to evaluate her response to Carafate. She also continues on omeprazole 20 mg once a day. [facility] Medical History Gallstones Body mass index (BMI) of 38.0 to 38.9 in adult Obesity Sleep apnea with use of continuous positive airway pressure (CPAP) Asthma Type 2 diabetes mellitus Surgical History History of cholecystectomy H/O tubal ligation History of surgery on wrist Hx of section Family History Father HTN (hypertension) Mother No problems noted. Sister Arthritis Knee problem Sister Arthritis Allergies Knee problem Brother No problems noted. Brother No problems noted. Son No problems noted. Son Autism Family/Other Breast cancer Social History Alcohol intake: never Patient Tobacco Use Status: Never used Tobacco Review of Systems Const Denies fatigue, Denies fever(s), Denies night sweats, Denies poor appetite and Denies weight loss Eyes Details: glasses Reports requires corrective lenses ENT Reports Normal hearing present, Denies dental pain, Reports dysphagia, Denies hearing loss, Denies mouth pain, Denies odynophagia, Denies throat swelling, Denies tongue swelling and Reports other (Dentition adequate) Card Reports no additional complaints Resp Reports no additional complaints GI Details: Denies abdominal pain, Denies melena, Denies bloating, Denies hematochezia, Denies constipation, Denies GI cramping, Reports dysphagia, Denies excessive flatus, Denies early satiety, Reports heartburn, Reports diarrhea, Denies nausea, Denies odynophagia, Denies vomiting and Denies hematemesis Skin/Breast Denies pruritus, Denies lesions, Denies rash and Denies jaundice Neuro Reports Normal hearing present and Denies Abnormal speech present Endo Denies fatigue Aller/Immun Denies throat swelling and Denies tongue swelling Physical Exam Vital Signs: Last Vital Signs Pulse 97 06/10/23 07:55 BP 102/61 06/10/23 07:55 BMI result Body Mass Index 36.3 Const General: cooperative, no acute distress, well developed and well groomed Nutritional Appearance: well nourished and overweight Orientation/consciousness: oriented to person, oriented to place and oriented to time Limitations: No language barrier HEENT Head: Yes normocephalic and Yes atraumatic Eyes General: appearance normal, both eyes and all related structures Pupils: Equal, round and reactive pupils present Neck Neck: Yes normal visual inspection and Yes no lymphadenopathy Thyroid: Thyroid normal Resp Effort & Inspection: normal respiratory effort and able to speak in complete sentences Auscultation: clear to auscultation bilaterally Cardio Rate: regular rate Rhythm: regular rhythm Heart sounds: Normal, physiologic split S2 sound present Peripheral pulses: radial pulses present and posterior tibial pulses present GI Inspection: No distended, No Abdominal panniculus present, Yes obesity, Yes scar and Yes striae Palpation (GI): Soft to palpation, nontender, no guarding, not rigid, No hepatosplenomegaly present and Hepatosplenomegaly present Percussion: Yes normal to percussion Auscultation: normal bowel sounds Rectal Exam - Female: deferred Abdomen image: 2 1. surgical scars 2. Skin General skin exam: no rashes or lesions noted, turgor normal, skin not dry, no jaundice, No spider nevi and no striae Rashes: no rashes Nails: normal Neuro General: oriented to person, oriented to place and oriented to time Cranial nerves: Yes Equal, round and reactive pupils present and Yes Normal hearing present Speech: No Abnormal speech present Extrem General: Yes normal to inspection, No clubbing, No cyanosis and No edema Psych Appearance: grossly normal and well kempt Mental Status: mental status grossly normal Speech and movement: Normal speech and movement present Affect: normal affect Attitude: cooperative Thought process: Normal thought process present and not confabulating Thought content: Normal thought content present Insight: Limited insight present (Psych) Judgement: Limited judgement present (Psych) Assessment & Plan Assessment & Plan (1) GERD (gastroesophageal reflux disease): Code(s): K21.9 - Gastro-esophageal reflux disease without esophagitis Category: Medical (2) Post-cholecystectomy syndrome: Code(s): K91.5 - Postcholecystectomy syndrome Category: Medical (3) Dysphagia: Code(s): R13.10 - Dysphagia, unspecified Category: Medical Plan She is having dysphagia of solid foods that get stuck at the GE jxn and her burps are sulfur like. She also has periumbilical discomfort. She will have upper abdominal bloating. She also has frequent nausea. She just started on Mounjaro so that is not the reason for her nausea. So far is not causing her constipation she still has diarrhea which she decides is ?normal for me now. ? She has no longer taking her Carafate unlikely she is suffering from bile gastritis and post cholecystectomy syndrome. I explained what this medication is for and why her symptoms are happening and she is willing to restart it. I am going to start with a liquid form sudden coat her esophagus since it sounds like she is having reflux and irritation. I am going to order an EGD for possible dilation. Return office visit in 3 weeks to evaluate her response to Carafate. She also continues on omeprazole 20 mg once a day. Orders: Orders 2 EGD with Howard - GI Use Only Today R13.10 - Dysphagia, unspecified Medications: New 2 sucralfate (Carafate) 20 mL PO .qhs 1,000 mL 6RF K21.9 - Gastro-esophageal reflux disease without esophagitis, K91.5 - Postcholecystectomy syndrome omeprazole 20 mg PO QAM 30 caps 6RF Discontinued 2 famotidine (Pepcid) Discontinued Reason: Doctor's Order 40 mg PO DAILY 30 tabs 3RF K21.9 - Gastro-esophageal reflux disease without esophagitis sucralfate (Carafate) Discontinued Reason: Doctor's Order 2 grams (2 x 1 gram) PO BEDTIME 60 tabs 3RF K91.5 - Postcholecystectomy syndrome Coding Level of Care Code Est Pt Level 4 (34117) Diagnoses GERD (gastroesophageal reflux disease) K21.9 Post-cholecystectomy syndrome K91.5 Dysphagia R13.10
[2023-06-10 07:55] VITALS: BP 102/61; PULSE 97; BMI 36.3
== END 2023-06-10 08:59 | disposition home or self-care (01) ==
PROVIDERS: PCP Family Medicine; Visit Provider Nurse Practitioner
DX: K21.9 Gastro-esophageal reflux disease without esophagitis (principal); K91.5 Postcholecystectomy syndrome; R13.10 Dysphagia, unspecified
CPT/HCPCS: 99214

== ENCOUNTER → 2023-06-10 07:47 | Outpatient (BNVA) | payer MEDICAID, SELFPAY | PROVIDERS: PCP Family Medicine; Visit Provider Nurse Practitioner | DX: K21.9 Gastro-esophageal reflux disease without esophagitis (principal); K91.5 Postcholecystectomy syndrome; R13.10 Dysphagia, unspecified | CPT/HCPCS: 99212 ==

== ENCOUNTER 2023-06-10 15:27 | Outpatient (REF) | payer MEDICAID, SELFPAY ==
[2023-06-10 16:15] LABS: Estimated Average Glucose 212 mg/dL
[2023-06-10 16:36] LABS: Glucose Random 201 mg/dL (60-115)
== END 2023-06-10 15:28 | disposition home or self-care (01) ==
LOC: HO.HHCL 15:27
PROVIDERS: Visit Provider Physician Assistant Surgical
DX: E11.9 Type 2 diabetes mellitus without complications (principal)
CPT/HCPCS: 36415; 82947; 83036

== ENCOUNTER 2023-06-11 14:02 | Outpatient (REF) | payer MEDICAID, SELFPAY ==
[2023-06-11 16:04] LABS: MANUAL DIFF FLAG NO
[2023-06-11 16:19] LABS: Basophils Percent Auto 0.2 % (0-2); Eosinophils Absolute Auto 0.1 X10*3/uL (0.0-0.4); Hematocrit 39.5 % (37.0-47.0); Hemoglobin 13.1 g/dl (12.0-16.0); Imm Gran Abs Auto 0.02 X10*3/uL (0.00-0.03); Imm Gran Pct Auto 0.2 % (0.0-0.4); Lymphocytes Absolute Auto 2.8 X10*3/uL (1.2-4.9); Lymphocytes Percent Auto 34.1 % (20-40); Mean Corpuscular HGB Conc 33.2 g/dl (31.0-35.0); Mean Corpuscular Hemoglobin 28.2 pg (27.0-33.0); Mean Corpuscular Volume 85.1 fL (80.0-98.0); Mean Platelet Volume 10.1 fL (9.4-12.3); Monocytes Absolute Auto 0.4 X10*3/uL (0.1-1.2); Neutrophils Absolute Auto 4.9 x10*3/uL (2.0-8.3); Neutrophils Percent Auto 59.5 % (45-73); Platelet Count 287 X10*3/uL (160-400); Red Blood Count 4.64 X10*6/uL (4.20-5.50); Red Cell Distribution Width 13.2 % (11.0-16.0); White Blood Count 8.2 X10*3/uL (4.8-10.8)
[2023-06-11 17:04] LABS: Alanine Aminotransferase 61 U/L (0-31); Albumin Level 3.6 g/dL (3.5-5.0); Alkaline Phosphatase 75 U/L (39-117); Anion Gap 14 (12-20); Aspartate Amino Transferase 58 U/L (5-31); Bilirubin Total 0.3 mg/dL (0.0-1.0); Blood Urea Nitrogen 12 mg/dL (9-16); Calcium 8.7 mg/dL (8.4-10.2); Carbon Dioxide 20 mmol/L (22-29); Chloride 103 mmol/L (96-108); Cholesterol 191 mg/dL (<200); Estimated Glomerular Filt Rate > 60; Glucose Random 253 mg/dL (60-115); HDL Cholesterol 33 mg/dL (>40); Potassium 3.9 mmol/L (3.3-5.1); Sodium 133 mmol/L (135-145); Total Protein 7.4 g/dL (6.5-8.0); Triglycerides 485 mg/dL (<150)
[2023-06-11 17:22] LABS: Reflex LDLD? Yes
[2023-06-12 08:37] LABS: HIV AB/AG Nonreactive (Nonreactive); HIV Num 1 0.04 S/CO (0.00-0.99); ~HepC Num1 0.09 S/CO (0.00-0.79); ~Hepatitis C Antibody Nonreactive (Nonreactive)
[2023-06-12 13:33] LABS: RPR Rapid Plasma Reagin NON-REACTIVE (NON-REACTIVE)
[2023-06-13 07:24] LABS: LDL Cholesterol Direct 96 mg/dL (<100)
== END 2023-06-11 14:03 | disposition home or self-care (01) ==
LOC: HO.HHCL 14:02
PROVIDERS: Visit Provider Family Medicine
DX: Z11.3 Encounter for screening for infections with a predominantly sexual mode of transmission (principal); Z86.19 Personal history of other infectious and parasitic diseases; R00.0 Tachycardia, unspecified; E78.2 Mixed hyperlipidemia
CPT/HCPCS: 36415; 80053; 80061; 83721; 84443; 85025; 86592; 86803; 87389

== ENCOUNTER 2023-06-13 | Outpatient (REF) | payer MEDICAID, SELFPAY ==
[2023-06-13 16:15] LABS: Appearance Urine Clear; Color Urine Yellow; Glucose Urine UA >=1000 mg/dL (Negative); Leukocyte Esterase Urine Negative (Negative); Nitrite Urine Negative (Negative); PH 5.5 (5.0-9.0); Specific Gravity - Urine >= 1.030 (1.005-1.025); UMIC TRIGGER UA YES; Urine Blood Negative (Negative); Urine Ketones 15 mg/dL (Negative); Urine Protein Negative (Neg-Trace)
[2023-06-13 16:18] LABS: Bacteria Urine 1+ (None Seen); RBC Urine 0-2 /HPF (0-2); WBC Urine 0-5 /HPF (0-5)
== END 2023-06-13 00:01 | disposition home or self-care (01) ==
LOC: HO.HHCL
PROVIDERS: Visit Provider Family Medicine
DX: N39.0 Urinary tract infection, site not specified (principal)
CPT/HCPCS: 81001

== ENCOUNTER 2023-06-30 09:06 | Day surgery (SDC) | payer MEDICAID, SELFPAY ==
--- NOTE | 2023-06-27 13:10 | HO.ANESPROP2 ---
Documented by User: Rebecca Castorena NP 06/27/23 13:16 HPI - Anesthesia Eval Consult details Narrative: 33yo F for Upper Endoscopy with Dilitation Anesthesia Pre-Procedure Meds Is the patient on any of the following meds?: GLP1/DPP4 PMFSH Active Problems Active Problems: All Active Problems Dysphagia (Acute) GERD (gastroesophageal reflux disease) (Acute) Post-cholecystectomy syndrome (Acute) Insomnia (Acute) PTSD (post-traumatic stress disorder) (Acute) Depression with anxiety (Acute) Obstructive sleep apnea (Acute) Vitamin D deficiency (Acute) Body mass index (BMI) of 38.0 to 38.9 in adult (Acute) Obesity (Acute) Type 2 diabetes mellitus (Acute) Past Medical History Medical History Gallstones Body mass index (BMI) of 38.0 to 38.9 in adult Obesity Sleep apnea with use of continuous positive airway pressure (CPAP) Asthma Type 2 diabetes mellitus Family History Family History Father HTN (hypertension) Mother No problems noted. Sister Arthritis Knee problem Sister Arthritis Allergies Knee problem Brother No problems noted. Brother No problems noted. Son No problems noted. Son Autism Family/Other Breast cancer Surgical History Surgical History History of cholecystectomy H/O tubal ligation History of surgery on wrist Hx of section Social History Social History Alcohol intake: never Patient Tobacco Use Status: Never used Tobacco Are you DNR?: No Advance Directives: No Advance Directives Information Provided: Yes Patient : No Meds Allergies Allergy/AdvReac Type Severity Reaction Status Date / Time Seasonal Allergies Allergy Mild Runny Nose Verified 06/10/23 07:56 Home Medications ?Medication ?Instructions ?Recorded ?Confirmed ?Last Taken ?Type metformin 500 mg tablet,extended 500 mg PO BID 09/11/21 Unknown History release 24 hr fluticasone propionate 50 intranasal 06/10/23 Unknown History mcg/actuation nasal spray,suspension insulin degludec 100 unit/mL (3 10 unit subcut QAM 04/30/24 05/20/24 History mL) subcutaneous pen (Tresiba FlexTouch U-100 insulin) melatonin 3 mg tablet 3 mg PO BID 06/10/23 Unknown History tirzepatide 2.5 mg/0.5 mL 2.5 mg subcut QWEEK 06/10/23 06/21/23 History subcutaneous pen injector (Mounjaro) Exam Pertinent Lab Results Pertinent Lab Results: Laboratory Tests 06/11/23 14:05 WBC 8.2 Hgb 13.1 Hct 39.5 Plt Count 287 Sodium 133 L Potassium 3.9 Chloride 103 Carbon Dioxide 20 L BUN 12 Creatinine 0.74 Narrative Narrative: Holter 03/2023 Conclusion: 1. Baseline was normal sinus rhythm with average heart of 105 beats per minute 2. Frequent sinus tachycardia noted with 63% of time heart rate about 100 beats per minute 3. No significant arrhythmias or pauses noted 4. No patient reported events Assessment and Plan Assessment Anesthesia Assessment: Chart Reviewed Documented by User: Stanislaw Garcia MD 06/30/23 12:32 [facility] Past Medical History Medical History Gallstones Body mass index (BMI) of 38.0 to 38.9 in adult Obesity Sleep apnea with use of continuous positive airway pressure (CPAP) Asthma Type 2 diabetes mellitus Family History Family History Father HTN (hypertension) Mother No problems noted. Sister Arthritis Knee problem Sister Arthritis Allergies Knee problem Brother No problems noted. Brother No problems noted. Son No problems noted. Son Autism Family/Other Breast cancer Family history of problems with anesthesia: No Surgical History Surgical History History of cholecystectomy H/O tubal ligation History of surgery on wrist Hx of section History of Problems with Anesthesia: No Social History Social History Alcohol intake: never Patient Tobacco Use Status: Never used Tobacco Are you DNR?: No Advance Directives: No Advance Directives Information Provided: Yes Patient : No Meds Allergies Allergy/AdvReac Type Severity Reaction Status Date / Time Seasonal Allergies Allergy Mild Runny Nose Verified 06/10/23 07:56 Home Medications ?Medication ?Instructions ?Recorded ?Confirmed ?Last Taken ?Type metformin 500 mg tablet,extended 500 mg PO BID 09/11/21 Unknown History release 24 hr fluticasone propionate 50 intranasal 06/10/23 Unknown History mcg/actuation nasal spray,suspension insulin degludec 100 unit/mL (3 10 unit subcut QAM 06/10/23 06/30/23 History mL) subcutaneous pen (Tresiba FlexTouch U-100 insulin) melatonin 3 mg tablet 3 mg PO BID 06/10/23 Unknown History tirzepatide 2.5 mg/0.5 mL 2.5 mg subcut QWEEK 06/10/23 06/21/23 History subcutaneous pen injector (Malikunjaro) Exam Airway Mallampati Class: II TM Dist: <=3cm Neck ROM: Full Heart: rrr Lungs: cta Assessment and Plan Assessment Anesthesia Assessment: Anesthesia Plan Discussed Final Anesthetic Review Family History of Problems with Anesthesia: No History of Problems with Anesthesia: No NPO: Yes ASA Class: III Final Preanesthetic Review: No Changes in Pt Med Stat, Meds/Allgs Chart Reviewed, Consent Obtained/Reviewed and Anes Risks/Benef Reviewed Patient Risk: Intermediate Procedure Risk: Intermediate Anesthetic Plan Anesthetic Plan: GA Disposition: Standard PACU
[2023-06-30 11:31] VITALS: BP 115/80; PULSE 93; RESP 18; TEMP 36.6; O2SAT 98; BMI 36.9
[2023-06-30 11:43] LABS: Glucose, Whole Blood 232 mg/dL (60-115)
[2023-06-30] MEDS: Lactated Ringers 1,000 ML 100 ML IVCONT (11:53)
--- NOTE | 2023-06-30 12:28 | P.HPSUR_ITS ---
Pre-Procedural Eval Section A - 24 Hr Update-Section A only Date of Service: 06/30/23 Section B - Complete if H&P > 30 days Chief Complaint: Dysphagia, unspecified Relevant Family History (Specify if Yes): No Relevant Social History: None Present Medications: see Short Stay Collaborative assessment Medical History: Significant History (Gallstones Body mass index (BMI) of 38.0 to 38.9 in adult Obesity Sleep apnea with use of continuous positive airway pressure (CPAP) Asthma Type 2 diabetes mellitus) History of Previous Operations: Relevant previous surgery/procedure and date(s) (History of cholecystectomy H/O tubal ligation History of surgery on wrist Hx of section) Allergies: Allergies Allergy/AdvReac Type Severity Reaction Status Date / Time Seasonal Allergies Allergy Mild Runny Nose Verified 06/10/23 07:56 Review of Systems Sugical H&P ROS: Negative: Constitution, Cardiovascular, Respiratory, Neurological, Psychiatric, Hem-Onc, Allergic/Immunologic, Gastrointestinal, Genitourinary, Musculoskeletal, Integumentary, Endocrine and Eyes/E ars/Nose/Throat Exam Surgical H&P Exam: Normal: HEENT, Normal: Heart, Normal: Lungs, Normal: Extremities, Normal: Abdomen, Normal: Skin and Normal: Neurological Plan Diagnosis/Plan: Unchanged I have reviewed the history and physical and performed a pertinent physical examination on my patient. No changes have occurred unless specified. Time Spent With Patient Time: Total time managing care of this patient today ____ minutes.
--- NOTE | 2023-06-30 12:29 | W.PM.OPN ---
Operative Note Operative Note Date of Service: 06/30/23 Narrative: Procedure Description: EGD Indication: dysphagia Anesthesia: MAC FLEXIBLE TRANSORAL UPPER GASTROINTESTINAL ENDOSCOPY UPPER ENDOSCOPY Consent: Indications for the procedure and potential complications of bleeding, perforation, reaction to medications and missed diagnosis were discussed with the patient and informed consent was obtained. Instrument: Olympus GIF H 190 J mid size upper endoscope Monitoring: Vital signs and clinical assessment, continuous EKG monitoring, Pulse oximetry, Carbon Dioxide monitoring and blood pressure monitoring were done throughout the procedure. Procedure: The patient was placed in the left lateral decubitis position and pre-procedure medications were administered and a bite block was placed. The endoscope was inserted into the mouth and advanced under direct vision to the third part of duodenum. A careful inspection was made as the upper endoscope was withdrawn including a retroflexed examination of the proximal stomach; Findings and interventions are described below. Findings: Larynx:normal Esophagus: GE junction at 37 cm, diaphragm hiatus at 37 cm, normal mucosa, balloon dilation to 20 mm at LES and UES, no tears seen, bx taken from GEJ, distal and proximal esophagus, tertiary contractions noted Stomach: nodularity petra fundis . Biopsies were obtained. Grade 2 flap valve on retroflexed examination of the cardia. Duodenum: Normal bulb and descending duodenum, bx taken Intervention: Biopsies as noted above, balloon dilation Impression/Findings: gastropathy tertiary contractions PLAN: trial of PPI GERD precautions if H pylori pos treat
[2023-06-30 12:54] VITALS: BP 110/77; PULSE 103; RESP 24; TEMP 36.9; O2SAT 100
[2023-06-30 12:59] VITALS: BP 113/79; PULSE 99; RESP 20; O2SAT 100
[2023-06-30 13:04] VITALS: BP 106/73; PULSE 103; RESP 16; O2SAT 96
[2023-06-30 13:09] VITALS: BP 106/72; PULSE 99; RESP 15; O2SAT 96
[2023-06-30 13:22] VITALS: BP 106/75; PULSE 98; RESP 16; TEMP 36.8; O2SAT 95
== END 2023-06-30 14:04 | disposition home or self-care (01) ==
PROVIDERS: PCP Family Medicine; Visit Provider Internal Medicine Gastroenterology
PROC: (CPT 43249; principal; 2023-06-30 13:50)
DX: R13.10 Dysphagia, unspecified (principal); K21.9 Gastro-esophageal reflux disease without esophagitis; K31.9 Disease of stomach and duodenum, unspecified; K22.4 Dyskinesia of esophagus; E11.9 Type 2 diabetes mellitus without complications; J45.909 Unspecified asthma, uncomplicated
CPT/HCPCS: 43249; 43239; 82947; 88305; 88313; 88342; C1726; J2704

== ENCOUNTER → 2023-06-30 09:06 | Outpatient (BNV) | payer MEDICAID, SELFPAY | PROVIDERS: PCP Family Medicine; Visit Provider Internal Medicine Gastroenterology | DX: R13.10 Dysphagia, unspecified (principal); K22.70 Barrett's esophagus without dysplasia; K20.90 Esophagitis, unspecified without bleeding; K31.9 Disease of stomach and duodenum, unspecified; K22.4 Dyskinesia of esophagus | CPT/HCPCS: 43239; 43249 ==

== ENCOUNTER 2023-08-05 11:55 | Outpatient (REF) | payer MEDICAID, SELFPAY ==
[2023-08-05 13:45] LABS: Bacterial Vaginosis PCR POSITIVE (Negative); Candida Group PCR NOT DETECTED (Not Detect); Candida glab krusei PCR NOT DETECTED (Not Detect); Trichomonas vaginalis PCR NOT DETECTED (Not Detect)
== END 2023-08-05 11:56 | disposition home or self-care (01) ==
LOC: HO.LNP 11:55
PROVIDERS: Visit Provider Nurse Practitioner Family
DX: N89.8 Other specified noninflammatory disorders of vagina (principal)
CPT/HCPCS: 0352U; 0353U

== ENCOUNTER 2023-08-05 11:56 | Outpatient (REF) | payer MEDICAID, SELFPAY ==
[2023-08-05 14:02] LABS: CT PCR NOT DETECTED (Not Detect.); NG PCR NOT DETECTED (Not Detect.)
== END 2023-08-05 11:57 | disposition home or self-care (01) ==
LOC: HO.LNP 11:56
PROVIDERS: Visit Provider Nurse Practitioner Family
DX: N89.8 Other specified noninflammatory disorders of vagina (principal)
CPT/HCPCS: 0353U

== ENCOUNTER 2023-08-29 15:16 | Outpatient (AMB) | payer MEDICAID, SELFPAY ==
--- NOTE | 2023-08-29 15:20 | A.OFFVIS_ITS ---
Vital Signs 08/29/23 15:21 Height 5 ft 2 in Weight 200 lb 9.93 oz BMI 36.7 BP 102/68 Blood Pressure Location Rt brachial Position Sitting Pulse 106 H Intake Visit Reasons: s/p EGD Intake Note: Patient in office today in follow up of EGD. CC: Patient reports that her GERD was bad when she was switching from Omeprazole to Pantoprazole but is now doing better. She reports occasional nausea and vomiting with her Mounjaro dose goes up. Pan Cleaner Required: No Accompanied by: Self / Same As Patient Allergies Seasonal Allergies Allergy (Mild, Verified 08/29/23 15:29) Runny Nose No Known Drug Allergies Allergy (Unknown, Verified 08/29/23 15:29) none HPI HPI s/p EGD: Details: Assessment & Plan (1) GERD (gastroesophageal reflux disease): Code(s): K21.9 - Gastro-esophageal reflux disease without esophagitis Category: Medical (2) Post-cholecystectomy syndrome: Code(s): K91.5 - Postcholecystectomy syndrome Category: Medical (3) Dysphagia: Code(s): R13.10 - Dysphagia, unspecified Category: Medical Plan She is having dysphagia of solid foods that get stuck at the GE jxn and her burps are sulfur like. She also has periumbilical discomfort. She will have upper abdominal bloating. She also has frequent nausea. She just started on Mounjaro so that is not the reason for her nausea. So far is not causing her constipation she still has diarrhea which she decides is ?normal for me now. ? She has no longer taking her Carafate unlikely she is suffering from bile gastritis and post cholecystectomy syndrome. I explained what this medication is for and why her symptoms are happening and she is willing to restart it. I am going to start with a liquid form sudden coat her esophagus since it sounds like she is having reflux and irritation. I am going to order an EGD for possible dilation. Return office visit in 3 weeks to evaluate her response to Carafate. She also continues on omeprazole 20 mg once a day. Orders: Orders EGD with Howard - GI Use Only Today R13.10 - Dysphagia, unspecified Medications: New sucralfate (Carafate) 20 mL PO .qhs 1,000 mL 6RF K21.9 - Gastro-esophageal reflux disease without esophagitis, K91.5 - Postcholecystectomy syndrome omeprazole 20 mg PO QAM 30 caps 6RF Discontinued famotidine (Pepcid) Discontinued Reason: Doctor's Order 40 mg PO DAILY 30 tabs 3RF K21.9 - Gastro-esophageal reflux disease without esophagitis sucralfate (Carafate) Discontinued Reason: Doctor's Order 2 grams (2 x 1 gram) PO BEDTIME 60 tabs 3RF K91.5 - Postcholecystectomy syndrome EGD 06/30/23 Findings: Larynx:normal Esophagus: GE junction at 37 cm, diaphragm hiatus at 37 cm, normal mucosa, balloon dilation to 20 mm at LES and UES, no tears seen, bx taken from GEJ, distal and proximal esophagus, tertiary contractions noted Stomach: nodularity petra fundis . Biopsies were obtained. Grade 2 flap valve on retroflexed examination of the cardia. Duodenum: Normal bulb and descending duodenum, bx taken Intervention: Biopsies as noted above, balloon dilation Impression/Findings: gastropathy tertiary contractions PLAN: trial of PPI GERD precautions if H pylori pos treat BIOPSY Received: 06/30/23 Diagnosis A. Duodenum, biopsy: Duodenal mucosa within normal limits. B Stomach, biopsy: Antral-type and oxyntic mucosa with mild chronic inactive inflammation; no Helicobacter organisms seen. C. GE junction, biopsy: - Sen esophagus with background mild chronic active inflammation. - No dysplasia seen. - Squamous mucosa within normal limits. D. Esophagus, distal, biopsy: Squamous epithelium within normal limits; no inflammation seen. E. Esophagus, proximal, biopsy: Squamous epithelium within normal limits; no inflammation seen TODAY'S VISIT She tolerated the procedure well. She was not taking the sucralfate at all, and I explain again that the carafate liquid is for the diarrhea and this will also help if bile reflux is a part of the problem. She was changed from o2o to pantoprazole by the endoscopist and she is taking this. Her swallowing is improved. Will repeat the EGD in 2 years. ROV 8 weeks. [facility] Medical History Gallstones Body mass index (BMI) of 38.0 to 38.9 in adult Obesity Sleep apnea with use of continuous positive airway pressure (CPAP) Asthma Type 2 diabetes mellitus Surgical History History of esophagogastroduodenoscopy (EGD) History of cholecystectomy H/O tubal ligation History of surgery on wrist Hx of section Family History Father HTN (hypertension) Mother No problems noted. Sister Arthritis Knee problem Sister Arthritis Allergies Knee problem Brother No problems noted. Brother No problems noted. Son No problems noted. Son Autism Family/Other Breast cancer Social History Alcohol intake: never Patient Tobacco Use Status: Never used Tobacco Review of Systems Const Denies fatigue, Denies fever(s), Denies night sweats, Denies poor appetite and Denies weight loss Eyes Details: glasses Reports requires corrective lenses ENT Reports Normal hearing present, Denies dental pain, Denies dysphagia, Denies hearing loss, Denies mouth pain, Denies odynophagia, Denies throat swelling, Den ies tongue swelling and Reports other (Dentition adequate) Card Reports no additional complaints Resp Reports no additional complaints GI Details: Reports abdominal pain, Denies melena, Denies bloating, Denies hematochezia, Denies constipation, Denies GI cramping, Denies dysphagia, Denies excessive flatus, Denies early satiety, Reports heartburn, Reports diarrhea, Denies nausea, Denies odynophagia, Denies vomiting and Denies hematemesis Skin/Breast Denies pruritus, Denies lesions, Denies rash and Denies jaundice Neuro Reports Normal hearing present and Denies Abnormal speech present Endo Denies fatigue Aller/Immun Denies throat swelling and Denies tongue swelling Physical Exam Vital Signs: Last Vital Signs Pulse 106 H 08/29/23 15:21 BP 102/68 08/29/23 15:21 BMI result Body Mass Index 36.7 Const General: cooperative, no acute distress, well developed and well groomed Nutritional Appearance: well nourished and obese Orientation/consciousness: oriented to person, oriented to place and oriented to time Limitations: No language barrier HEENT Head: Yes normocephalic and Yes atraumatic Eyes General: appearance normal, both eyes and all related structures Pupils: Equal, round and reactive pupils present Neck Neck: Yes normal visual inspection and Yes no lymphadenopathy Thyroid: Thyroid normal Resp Effort & Inspection: normal respiratory effort and able to speak in complete sentences Auscultation: clear to auscultation bilaterally Cardio Rate: regular rate Rhythm: regular rhythm Heart sounds: Normal, physiologic split S2 sound present Peripheral pulses: radial pulses present and posterior tibial pulses present GI Inspection: No distended, Yes Abdominal panniculus present and Yes obesity Palpation (GI): Soft to palpation, nontender, no guarding, not rigid and No hepatosplenomegaly present Percussion: Yes normal to percussion Auscultation: normal bowel sounds Rectal Exam - Female: deferred Skin General skin exam: no rashes or lesions noted, turgor normal, skin not dry, no jaundice, No spider nevi and no striae Rashes: no rashes Nails: normal Neuro General: oriented to person, oriented to place and oriented to time Cranial nerves: Yes Equal, round and reactive pupils present and Yes Normal hearing present Speech: No Abnormal speech present Extrem General: Yes normal to inspection, No clubbing, No cyanosis and No edema Psych Appearance: grossly normal and well kempt Mental Status: mental status grossly normal Speech and movement: Normal speech and movement present Affect: normal affect Attitude: cooperative Thought process: Normal thought process present and not confabulating Thought content: Normal thought content present Insight: Limited insight present (Psych) Judgement: Limited judgement present (Psych) Assessment & Plan Assessment & Plan (1) 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: Code(s): K22.70 - Sen's esophagus without dysplasia Category: Medical (2) Dysphagia: Code(s): R13.10 - Dysphagia, unspecified Category: Medical (3) GERD (gastroesophageal reflux disease): Code(s): K21.9 - Gastro-esophageal reflux disease without esophagitis Category: Medical (4) Post-cholecystectomy syndrome: Code(s): K91.5 - Postcholecystectomy syndrome Category: Medical Plan She tolerated the procedure well. She was not taking the sucralfate at all, and I explain again that the carafate liquid is for the diarrhea and this will also help if bile reflux is a part of the problem. She was changed from o2o to pantoprazole by the endoscopist and she is taking this. Her swallowing is improved. Will repeat the EGD in 2 years. ROV 8 weeks. Medications: Refilled pantoprazole 40 mg PO DAILY 30 tabs 6RF Discontinued omeprazole Discontinued Reason: Doctor's Order 20 mg PO QAM 30 caps 6RF Coding Level of Care Code Est Pt Level 4 (54301) Diagnoses 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 K22.70 Dysphagia R13.10 GERD (gastroesophageal reflux disease) K21.9 Post-cholecystectomy syndrome K91.5 Time Spent (min) 33
[2023-08-29 15:21] VITALS: BP 102/68; PULSE 106; BMI 36.7
== END 2023-08-29 16:50 | disposition home or self-care (01) ==
PROVIDERS: PCP Family Medicine; Visit Provider Nurse Practitioner
DX: K22.70 Barrett's esophagus without dysplasia (principal); R13.10 Dysphagia, unspecified; K21.9 Gastro-esophageal reflux disease without esophagitis; K91.5 Postcholecystectomy syndrome
CPT/HCPCS: 99214

== ENCOUNTER → 2023-08-29 15:16 | Outpatient (BNVA) | payer MEDICAID, SELFPAY | PROVIDERS: PCP Family Medicine; Visit Provider Nurse Practitioner | DX: K21.9 Gastro-esophageal reflux disease without esophagitis (principal); K91.5 Postcholecystectomy syndrome; K22.70 Barrett's esophagus without dysplasia; R13.10 Dysphagia, unspecified; Z79.899 Other long term (current) drug therapy | CPT/HCPCS: 99212 ==

== ENCOUNTER 2023-09-10 14:57 | Outpatient (REF) | payer MEDICAID, SELFPAY ==
[2023-09-10 16:45] LABS: Alanine Aminotransferase 46 U/L (0-31); Albumin Level 3.7 g/dL (3.5-5.0); Alkaline Phosphatase 80 U/L (39-117); Anion Gap 10 (12-20); Aspartate Amino Transferase 33 U/L (5-31); Bilirubin Total 0.4 mg/dL (0.0-1.0); Blood Urea Nitrogen 10 mg/dL (9-16); Calcium 9.5 mg/dL (8.4-10.2); Carbon Dioxide 26 mmol/L (22-29); Chloride 106 mmol/L (96-108); Estimated Glomerular Filt Rate > 60; Glucose Random 201 mg/dL (60-115); Sodium 138 mmol/L (135-145); Total Protein 7.6 g/dL (6.5-8.0)
[2023-09-10 16:49] LABS: Estimated Average Glucose 183 mg/dL
[2023-09-10 17:22] LABS: Folate 11.2 ng/mL (> or = 4.0); Vitamin B12 677 pg/mL (200-900)
[2023-09-11 04:04] LABS: Hepatitis A Antibody IgG REACTIVE (Nonreactive); ~Hepatitis A Antibody IgG 8.81 S/CO (0.00-0.99)
[2023-09-11 04:13] LABS: HIV AB/AG Nonreactive (Nonreactive); HIV Num 1 0.05 S/CO (0.00-0.99); ~HepC Num1 0.13 S/CO (0.00-0.79); ~Hepatitis C Antibody Nonreactive (Nonreactive)
[2023-09-12 09:59] LABS: RPR Rapid Plasma Reagin NON-REACTIVE (NON-REACTIVE)
== END 2023-09-10 14:58 | disposition home or self-care (01) ==
LOC: HO.HHCL 14:57
PROVIDERS: Visit Provider Family Medicine
DX: E11.65 Type 2 diabetes mellitus with hyperglycemia (principal); Z79.4 Long term (current) use of insulin; Z01.84 Encounter for antibody response examination; Z86.19 Personal history of other infectious and parasitic diseases; Z11.3 Encounter for screening for infections with a predominantly sexual mode of transmission
CPT/HCPCS: 36415; 80053; 82607; 82746; 83036; 86592; 86708; 86803; 87389

== ENCOUNTER 2023-09-12 15:18 | Outpatient (REF) | payer MEDICAID, SELFPAY ==
[2023-09-12 16:36] LABS: Creatinine Urine 183.27 mg/dL; Microalbum/Creatinine Ratio Ur 8.1 ug/mg cr (<30)
[2023-09-12 16:59] LABS: Cholesterol 165 mg/dL (<200); HDL Cholesterol 32 mg/dL (>40); LDL Cholesterol Calculated 84 mg/dL (<100); Triglycerides 246 mg/dL (<150)
[2023-09-12 17:13] LABS: TSH reflex Free T4 1.31 uIU/mL (0.32-4.0); Vitamin D 25-OH Total 36.9 ng/mL (>30)
[2023-09-12 20:45] LABS: Reflex LDLD? No
[2023-09-15 08:25] LABS: HBsAGNum1 0.26 S/CO (0.00-0.99); Hepatitis B Surface Antigen Negative (Negative)
== END 2023-09-12 15:19 | disposition home or self-care (01) ==
LOC: HO.HHCL 15:18
PROVIDERS: Visit Provider Family Medicine
DX: E11.65 Type 2 diabetes mellitus with hyperglycemia (principal); Z11.3 Encounter for screening for infections with a predominantly sexual mode of transmission; Z79.4 Long term (current) use of insulin; R00.0 Tachycardia, unspecified; Z83.49 Family history of other endocrine, nutritional and metabolic diseases; E55.9 Vitamin D deficiency, unspecified
CPT/HCPCS: 36415; 80061; 82043; 82306; 82570; 84443; 87340

== ENCOUNTER 2023-10-23 09:44 | Outpatient (REF) | payer MEDICAID, SELFPAY ==
--- NOTE | ~2023-10-23 | XR_ITS ---
EXAMINATION: XR RIBS, BILATERAL CLINICAL INFORMATION: Rib pain four-day duration of bilateral ribs in the ninth 10th area. Patient denies injury COMPARISON: Chest 02/28/2020 TECHNIQUE: PA view of the chest and 3 views of the bilateral ribs were obtained. FINDINGS: Lungs are clear. No consolidation, pneumothorax, or pleural effusion. The cardiomediastinal silhouette and pulmonary vasculature are normal. Osseous structures are unremarkable. Ribs are intact. No fractures are identified. XR/XR ribs BI 3V IMPRESSION: No displaced rib fracture. Electronically signed by: Latosha Albert MD 11/13/2023 01:48 PM EDT
== END 2023-10-23 09:45 | disposition home or self-care (01) ==
LOC: HO.HHCX 09:44
PROVIDERS: Visit Provider Family Medicine
DX: R07.81 Pleurodynia (principal)
CPT/HCPCS: 71110

== ENCOUNTER 2023-11-11 17:53 | Outpatient (REF) | payer MEDICAID, SELFPAY ==
[2023-11-13 04:23] LABS: CT PCR NOT DETECTED (Not Detect.); NG PCR NOT DETECTED (Not Detect.)
[2023-11-13 09:12] LABS: Bacterial Vaginosis PCR POSITIVE (Negative); Candida Group PCR NOT DETECTED (Not Detect); Candida glab krusei PCR NOT DETECTED (Not Detect); Trichomonas vaginalis PCR NOT DETECTED (Not Detect)
== END 2023-11-11 17:54 | disposition home or self-care (01) ==
LOC: HO.HHCLNP 17:53
PROVIDERS: Visit Provider Family Medicine
DX: N89.8 Other specified noninflammatory disorders of vagina (principal); R30.0 Dysuria
CPT/HCPCS: 0352U; 87086; 87491; 87591

== ENCOUNTER 2023-11-26 11:29 | Outpatient (REF) | payer MEDICAID, SELFPAY ==
[2023-11-26 14:02] LABS: Alanine Aminotransferase 30 U/L (0-31); Albumin Level 3.8 g/dL (3.5-5.0); Alkaline Phosphatase 89 U/L (39-117); Anion Gap 12 (12-20); Aspartate Amino Transferase 22 U/L (5-31); Bilirubin Total 0.3 mg/dL (0.0-1.0); Blood Urea Nitrogen 12 mg/dL (9-16); Calcium 9.4 mg/dL (8.4-10.2); Carbon Dioxide 27 mmol/L (22-29); Chloride 108 mmol/L (96-108); Cholesterol 152 mg/dL (<200); Estimated Glomerular Filt Rate > 60; Glucose Random 96 mg/dL (60-115); HDL Cholesterol 32 mg/dL (>40); LDL Cholesterol Calculated 91 mg/dL (<100); Sodium 143 mmol/L (135-145); Total Protein 7.4 g/dL (6.5-8.0); Triglycerides 145 mg/dL (<150)
[2023-11-26 14:33] LABS: Creatinine Urine 238.24 mg/dL; Microalbum/Creatinine Ratio Ur 9.6 ug/mg cr (<30)
[2023-11-26 15:10] LABS: Reflex LDLD? No
[2023-11-26 16:26] LABS: CT PCR NOT DETECTED (Not Detect.); NG PCR NOT DETECTED (Not Detect.)
[2023-11-27 08:20] LABS: Hepatitis A Antibody IgG REACTIVE (Nonreactive); ~Hepatitis A Antibody IgG 6.77 S/CO (0.00-0.99)
[2023-11-27 08:43] LABS: HBsAGNum1 0.55 S/CO (0.00-0.99); HIV AB/AG Nonreactive (Nonreactive); HIV Num 1 0.05 S/CO (0.00-0.99); Hepatitis B Surface Antigen Negative (Negative); ~HepC Num1 0.09 S/CO (0.00-0.79); ~Hepatitis C Antibody Nonreactive (Nonreactive)
[2023-12-02 15:43] LABS: RPR Rapid Plasma Reagin NON-REACTIVE (NON-REACTIVE)
== END 2023-11-26 11:30 | disposition home or self-care (01) ==
LOC: HO.HHCL 11:29
PROVIDERS: Visit Provider Family Medicine
DX: Z11.3 Encounter for screening for infections with a predominantly sexual mode of transmission (principal); E11.65 Type 2 diabetes mellitus with hyperglycemia; Z79.4 Long term (current) use of insulin; K76.0 Fatty (change of) liver, not elsewhere classified; E78.2 Mixed hyperlipidemia
CPT/HCPCS: 36415; 80053; 80061; 82043; 82570; 86592; 86708; 86803; 87340; 87389; 87491; 87591

== ENCOUNTER 2024-01-26 08:17 | Outpatient (AMB) | payer MEDICAID, SELFPAY ==
--- NOTE | 2024-01-26 08:16 | MHC.OFFVISWM ---
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 32.7 Allergies Seasonal Allergies Allergy (Mild, Verified 01/26/24 08:16) Runny Nose No Known Drug Allergies Allergy (Unknown, Verified 01/26/24 08:16) none Medication List - Last Reconciled 01/26/24 by Nate Mijares MD acetaminophen ER 650 mg PO Q8H insulin degludec (Tresiba FlexTouch U-100 insulin) 10 units subcut QAM metformin ER 500 mg PO BID pantoprazole 40 mg PO DAILY sumatriptan succinate 25 mg PO Q2-4H PRN tirzepatide (Mounjaro) 2.5 mg subcut QWEEK HPI HPI 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 BMI 32.7: Details: Start time: 8.04am, End time: 9am ?I spent 51 minutes speaking with the patient on the phone plus an additional 5 minutes reviewing and updating records for a total of 56 minutes HPI Comments Details: [place] weight [place] efforts: [facility] [place] [facility] for 5 months: about 20lbs Wakes up: 5am, Sleeps: 9pm Breakfast: skips Lunch: 12pm (soup, sandwich or kinyarwanda food) Dinner: 5pm (chicken and rice) Snacks: 10am (chips) Exercise: none Fluids: Coffee/tea: none, soda: none, juice: Apple juice: 1/month, ETOH: none PFSH Medical History (Updated 01/26/24 @ 08:59 by Nate Mijares MD) Migraines Insulin dependent type 2 diabetes mellitus BMI 32.0-32.9,adult Obstructive sleep apnea Gallstones Body mass index (BMI) of 38.0 to 38.9 in adult Obesity Type 2 diabetes mellitus Surgical History History of esophagogastroduodenoscopy (EGD) History of cholecystectomy H/O tubal ligation History of surgery on wrist Hx of section Family History Father HTN (hypertension) Mother No problems noted. Sister Arthritis Knee problem Sister Arthritis Allergies Knee problem Brother No problems noted. Brother No problems noted. Son No problems noted. Son Autism Family/Other Breast cancer Social History Alcohol intake: never Patient Tobacco Use Status: Never used Tobacco Telehealth Telehealth Telehealth Platform: Telephone Location of provider rendering services: practice address Location of patient: address on file Patient Identification confirmed using: Name, : Yes Telehealth method: voice only Patient verbally consented to treatment: Yes Patient verbally consented to billing insurance company: Yes Patient informed of any privacy concerns related to visit: Yes Minutes spent on Phone/Video with Pt.: 56 Assessment & Plan Assessment & Plan (1) Obesity: Code(s): E66.9 - Obesity, unspecified Category: Medical Qualifiers: Obesity type: due to excess calories Obesity classification: adult class 2 (BMI 35 - 39.9) Serious obesity comorbidity presence: with serious comorbidity Body mass index: BMI 35.0-35.9 Qualified Code(s): E66.812 - Obesity, class 2; E66.01 - Morbid (severe) obesity due to excess calories; Z68.35 - Body mass index [BMI] 35.0-35.9, adult Plan: 1.? Plan for lap sleeve gastrectomy. If diaphragmatic or ventral hernias are present at time of surgery, these will be repaired laparoscopically as well. Risks and complications include possible conversion to an open procedure, anastomotic leak, bleeding requiring transfusion, small bowel obstruction, , DVT and pulmonary embolism, cardiac, or pulmonary complications, as 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 complications such as anastomotic ulcer, insufficient weight loss and vitamin deficiencies. I emphasized the importance of close follow-up, adherence to instructions and good communication. 2. You will receive a link of our software blane to generate an individualized nutritional and exercise plan specific for you. Please send me a screenshot of the plans you will generate Meal to include lean meat (beef, fish, pork, turkey, chicken), or tanzanian yogurt, or egg whites, or beans with a salad with olive oil and fruits (berries, pears, apples, kiwi). Avoid salt, breads, potatoes, rice, pasta, desserts. ?3. If you choose shakes, each shake would be drunk slowly, like coffee in a period of 2 hours. ?4. If you choose bars, cut each bar in 4 pieces and eat each piece in 30min ?to make each bar last 2 hours. ?5. I emphasized the importance of measuring accurately the food portion and measure it when serving the food in plate ?6. The meal portions include a specific number of forks of meat and salad. You always eat the meat portion but you can replace up to half of salad/vegetables portion with rice, potatoes or pasta, or a fruit ?if you like. The less you do it the better weight loss will be. ?7. One full-size fork is what it can be scooped on the fork without falling aside and not what can be bit with the fork. Use regular forks like those you find in a typical restaurant. ?8.? Please buy the body composition scale we discussed and send me weight measurements as soon as possible and then once a week. Always include your diet and exercise plan. 9. The best choice would be to purchase a stationary bike, elliptical or treadmill at home that can track calories. Let me know if you do so I can give you an exercise plan. ?10.?It is important of avoiding and for at least 18 months postoperatively and has been discussed at the infosession. ?11. Goal is to lose at least 1.5-2lbs per week ?12. Goal to lose 10% of your weight before surgery, which is about 18lbs. Ultimate weight goal: 171lbs before surgery 13. Please follow the diet plan exactly without any change. If you don't like something about the plan or you feel hungry you need to communicate with me so I can help you revise the plan. You should not change the plan yourself. 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 Panel Today E11.9 - Type 2 diabetes mellitus without complications, E66.9 - Obesity, unspecified, K21.9 - Gastro-esophageal reflux disease without esophagitis, K22.70 - Sen's esophagus without dysplasia, Z68.32 - Body mass index [BMI] 32.0-32.9, adult, Z79.4 - long-term (current) use of insulin Vitamin B1 Today E11.9 - Type 2 diabetes mellitus without complications, E66.9 - Obesity, unspecified, K21.9 - Gastro-esophageal reflux disease without esophagitis, K22.70 - Sen's esophagus without dysplasia, Z68.32 - Body mass index [BMI] 32.0-32.9, adult, Z79.4 - long-term (current) use of insulin Vitamin A Today E11.9 - Type 2 diabetes mellitus without complications, E66.9 - Obesity, unspecified, K21.9 - Gastro-esophageal reflux disease without esophagitis, K22.70 - Sen's esophagus without dysplasia, Z68.32 - Body mass index [BMI] 32.0-32.9, adult, Z79.4 - long-term (current) use of insulin TSH reflex Free T4 Today E11.9 - Type 2 diabetes mellitus without complications, E66.9 - Obesity, unspecified, K21.9 - Gastro-esophageal reflux disease without esophagitis, K22.70 - Sen's esophagus without dysplasia, Z68.32 - Body mass index [BMI] 32.0-32.9, adult, Z79.4 - long-term (current) use of insulin Ferritin Today E11.9 - Type 2 diabetes mellitus without complications, E66.9 - Obesity, unspecified, K21.9 - Gastro-esophageal reflux disease without esophagitis, K22.70 - Sen's esophagus without dysplasia, Z68.32 - Body mass index [BMI] 32.0-32.9, adult, 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.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 ECG 12 lead EKG Today E11.9 - Type 2 diabetes mellitus without complications, E66.9 - Obesity, unspecified, K21.9 - Gastro-esophageal reflux disease without esophagitis, K22.70 - Sen's esophagus without dysplasia, Z68.32 - Body mass index [BMI] 32.0-32.9, adult, 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.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9, adult, Z79.4 - long-term (current) use of insulin Complete Blood Count Auto Diff Today E11.9 - Type 2 diabetes mellitus without complications, E66.9 - Obesity, unspecified, K21.9 - Gastro-esophageal reflux disease without esophagitis, K22.70 - Sen's esophagus without dysplasia, Z68.32 - Body mass index [BMI] 32.0-32.9, adult, 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.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 Lipid Panel Today E11.9 - Type 2 diabetes mellitus without complications, E66.9 - Obesity, unspecified, K21.9 - Gastro-esophageal reflux disease without esophagitis, K22.70 - Sen's esophagus without dysplasia, Z68.32 - Body mass index [BMI] 32.0-32.9, adult, Z79.4 - long-term (current) use of insulin IRON PROFILE Today E11.9 - Type 2 diabetes mellitus without complications, E66.9 - Obesity, unspecified, K21.9 - Gastro-esophageal reflux disease without esophagitis, K22.70 - Sen's esophagus without dysplasia, Z68.32 - Body mass index [BMI] 32.0-32.9, adult, 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.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 Vitamin B12 and Folate Today E11.9 - Type 2 diabetes mellitus without complications, E66.9 - Obesity, unspecified, K21.9 - Gastro-esophageal reflux disease without esophagitis, K22.70 - Sen's esophagus without dysplasia, Z68.32 - Body mass index [BMI] 32.0-32.9, adult, 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.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 Zinc Today E11.9 - Type 2 diabetes mellitus without complications, E66.9 - Obesity, unspecified, K21.9 - Gastro-esophageal reflux disease without esophagitis, K22.70 - Sen's esophagus without dysplasia, Z68.32 - Body mass index [BMI] 32.0-32.9, adult, Z79.4 - long-term (current) use of insulin C Reactive Protein Today E11.9 - Type 2 diabetes mellitus without complications, E66.9 - Obesity, unspecified, K21.9 - Gastro-esophageal reflux disease without esophagitis, K22.70 - Sen's esophagus without dysplasia, Z68.32 - Body mass index [BMI] 32.0-32.9, adult, 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.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 Vitamin D 25-OH Total Today E11.9 - Type 2 diabetes mellitus without complications, E66.9 - Obesity, unspecified, K21.9 - Gastro-esophageal reflux disease without esophagitis, K22.70 - Sen's esophagus without dysplasia, Z68.32 - Body mass index [BMI] 32.0-32.9, adult, Z79.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 US abdomen comp w elastography Today E11.9 - Type 2 diabetes mellitus without complications, E66.9 - Obesity, unspecified, K21.9 - Gastro-esophageal reflux disease without esophagitis, K22.70 - Sen's esophagus without dysplasia, Z68.32 - Body mass index [BMI] 32.0-32.9, adult, Z79.4 - long-term (current) use of insulin XR chest 2V Today E11.9 - Type 2 diabetes mellitus without complications, E66.9 - Obesity, unspecified, K21.9 - Gastro-esophageal reflux disease without esophagitis, K22.70 - Sen's esophagus without dysplasia, Z68.32 - Body mass index [BMI] 32.0-32.9, adult, 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.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 Referrals Behavioral Health Referral E11.9 - Type 2 diabetes mellitus without complications, E66.9 - Obesity, unspecified, K21.9 - Gastro-esophageal reflux disease without esophagitis, K22.70 - Sen's esophagus without dysplasia, Z68.32 - Body mass index [BMI] 32.0-32.9, adult, Z79.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
[2024-01-26 08:32] VITALS: BMI 31.7
== END 2024-01-26 09:01 | disposition home or self-care (01) ==
LOC: HO.HBS 08:17
PROVIDERS: PCP Family Medicine; Visit Provider Surgery
DX: E66.812 Obesity, class 2 (principal); E66.01 Morbid (severe) obesity due to excess calories; Z68.35 Body mass index [BMI] 35.0-35.9, adult
CPT/HCPCS: 99204

== ENCOUNTER 2024-01-26 08:17 | Outpatient (REF) | payer MEDICAID, SELFPAY ==
--- NOTE | 2024-01-26 10:27 | ECG_ITS ---
Test Reason : obs Blood Pressure : / mmHG Vent. Rate : 089 BPM Atrial Rate : 089 BPM P-R Int : 132 ms QRS Dur : 084 ms QT Int : 382 ms P-R-T Axes : -07 008 026 degrees QTc Int : 464 ms Normal sinus rhythm Normal ECG When compared with ECG of 28-FEB-2020 11:57, No significant change was found Referred By: Nate Mijares Electronically Signed By:CLAUDIA MEZA
[2024-01-26 10:48] LABS: MANUAL DIFF FLAG NO
[2024-01-26 11:55] LABS: Basophils Percent Auto 0.4 % (0-2); Eosinophils Absolute Auto 0.1 X10*3/uL (0.0-0.4); Hematocrit 37.7 % (37.0-47.0); Imm Gran Abs Auto 0.02 X10*3/uL (0.00-0.03); Imm Gran Pct Auto 0.2 % (0.0-0.4); Lymphocytes Absolute Auto 2.7 X10*3/uL (1.2-4.9); Lymphocytes Percent Auto 29.9 % (20-40); Mean Corpuscular HGB Conc 31.8 g/dl (31.0-35.0); Mean Corpuscular Hemoglobin 25.1 pg (27.0-33.0); Mean Corpuscular Volume 78.9 fL (80.0-98.0); Mean Platelet Volume 9.3 fL (9.4-12.3); Monocytes Absolute Auto 0.4 X10*3/uL (0.1-1.2); Monocytes Percent Auto 4.9 % (2-11); Neutrophils Absolute Auto 5.8 x10*3/uL (2.0-8.3); Neutrophils Percent Auto 63.6 % (45-73); Platelet Count 326 X10*3/uL (160-400); Red Blood Count 4.78 X10*6/uL (4.20-5.50); Red Cell Distribution Width 13.4 % (11.0-16.0); White Blood Count 9.1 X10*3/uL (4.8-10.8)
[2024-01-26 12:00] LABS: Estimated Average Glucose 128 mg/dL; Hemoglobin A1c % 6.1 % (<6.0); Total Hemoglobin (HGBA1C) 3034.9867 umol/L
[2024-01-26 12:30] LABS: Alanine Aminotransferase 23 U/L (0-31); Albumin Level 3.7 g/dL (3.5-5.0); Alkaline Phosphatase 82 U/L (39-117); Anion Gap 11 (12-20); Aspartate Amino Transferase 31 U/L (5-31); Bilirubin Total 0.3 mg/dL (0.0-1.0); Blood Urea Nitrogen 14 mg/dL (9-16); C Reactive Protein 0.48 mg/dL (< or = 0.50); Calcium 8.8 mg/dL (8.4-10.2); Carbon Dioxide 25 mmol/L (22-29); Chloride 107 mmol/L (96-108); Cholesterol 147 mg/dL (<200); Estimated Glomerular Filt Rate > 60; Glucose Random 125 mg/dL (60-115); HDL Cholesterol 30 mg/dL (>40); Iron 25 mcg/dL (30-160); LDL Cholesterol Calculated 87 mg/dL (<100); Percent Iron Saturation 7 % (15-50); Potassium 3.9 mmol/L (3.3-5.1); Sodium 139 mmol/L (135-145); Total Iron Binding Capacity 363 mcg/dL (228-428); Total Protein 7.5 g/dL (6.5-8.0); Triglycerides 152 mg/dL (<150); Unsaturated Iron Binding 338 ug/dL
[2024-01-26 12:42] LABS: Ferritin 15 ng/mL (10-122); Insulin 186 uU/mL (2-29); Vitamin D 25-OH Total 15.9 ng/mL (>30)
[2024-01-26 12:46] LABS: TSH reflex Free T4 2.36 uIU/mL (0.32-4.0)
[2024-01-26 12:54] LABS: Folate 7.4 ng/mL (> or = 4.0); Vitamin B12 537 pg/mL (200-900)
[2024-01-30 17:24] LABS: Zinc 54 mcg/dL (60-130)
[2024-01-31 20:08] LABS: Vitamin A 41 mcg/dL (38-98)
[2024-02-05 16:18] LABS: Vitamin B1 <6 nmol/L (8-30)
== END 2024-01-26 08:18 | disposition home or self-care (01) ==
LOC: HO.XRAY 08:17
PROVIDERS: Internal Medicine; PCP Family Medicine; Visit Provider Surgery
DX: E11.65 Type 2 diabetes mellitus with hyperglycemia (principal); Z79.4 Long term (current) use of insulin; E66.9 Obesity, unspecified; Z68.32 Body mass index [BMI] 32.0-32.9, adult; K21.9 Gastro-esophageal reflux disease without esophagitis; K22.70 Barrett's esophagus without dysplasia
CPT/HCPCS: 36415; 71046; 80053; 80061; 82306; 82607; 82728; 82746; 83036; 83525; 83540; 84425; 84443; 84590; 84630; 85025; 86140; 93005

== ENCOUNTER → 2024-01-26 10:27 | Outpatient (BNV) | payer MEDICAID, SELFPAY | PROVIDERS: PCP Family Medicine; Visit Provider Internal Medicine | DX: E66.9 Obesity, unspecified (principal) | CPT/HCPCS: 93010 ==

== ENCOUNTER 2024-01-27 15:55 | Outpatient (REF) | payer MEDICAID, SELFPAY ==
--- NOTE | ~2024-01-27 | XR_ITS ---
EXAMINATION: XR SHOULDER, LEFT CLINICAL INFORMATION: left shoulder pain, limited ROM. Chronic left shoulder pain COMPARISON: None available. TECHNIQUE: AP external rotation, Grashey, scapular Y, and axillary views of the left shoulder. FINDINGS: Acromioclavicular and glenohumeral alignment maintained. Bone mineralization is normal. XR/XR shoulder LT min 2V IMPRESSION: No displaced fracture. This study was presented today to January 28, 2024 for interpretation. Stat results provided at this time as requested by referring provider. Electronically signed by: Ruthie Calderón MD 01/28/2024 10:12 AM [facility]
== END 2024-01-27 15:56 | disposition home or self-care (01) ==
LOC: HO.HHCX 15:55
PROVIDERS: Visit Provider Family Medicine
DX: M25.512 Pain in left shoulder (principal); G89.29 Other chronic pain
CPT/HCPCS: 73030

== ENCOUNTER 2024-02-23 08:21 | Outpatient (REF) | payer MEDICAID, SELFPAY ==
--- NOTE | ~2024-02-23 | US_ITS ---
EXAMINATION: US ABDOMEN COMPLETE WITH LIVER ELASTOGRAPHY HISTORY: E66.9 - Obesity, unspecified TECHNIQUE: Real-time grayscale ultrasound imaging of the abdomen was performed and images were reviewed. COMPARISON: Comparison is made with the prior examination dated 12/06/2022. FINDINGS: Liver: The liver is normal in size, but demonstrates increased echotexture, consistent with steatosis. No focal mass or intrahepatic biliary ductal dilatation is identified. There is normal hepatopedal flow in the portal vein. Ultrasound elastography of the liver was performed with 10 separate measurements of the liver parenchyma with the patient in the supine position. Measurements were obtained approximately 2 cm below Saeed's capsule and perpendicular to the capsule. Images are of satisfactory quality. The median shear wave velocity is 1.33 m/s. The interquartile range/median (IQR/median) is 0.18. Gallbladder and biliary tree: The patient is status post cholecystectomy. The common bile duct is normal in caliber measuring 4 mm. Kidneys: The right kidney measures 11.4 cm in length. The left kidney measures 10.8 cm in length. The kidneys are unremarkable, without evidence of masses, hydronephrosis, or calculi. Pancreas: The pancreatic head, neck, and body are unremarkable. The pancreatic tail is obscured by bowel gas. Spleen: The spleen is normal in size and contour, measuring 10.7 cm in length. Abdominal aorta and inferior vena cava: The visualized portions of the abdominal aorta and inferior vena cava are normal in caliber. There is no free fluid in the abdomen. US/US abdomen comp w elastography IMPRESSION: Hepatic steatosis. The median shear wave velocity is 1.33 m/s, corresponding to a median liver stiffness of 5.58 kPa. The IQR/median value is 0.18. This is indicative of a poor quality data set, and the estimated liver stiffness may be unreliable. Findings are indicative of a low elastography value which rules out advanced chronic liver disease in asymptomatic patients. REFERENCE: Society of Radiologists in Ultrasound Liver Stiffness Thresholds (2020): LIVER STIFFNESS THRESHOLDS: *Shear wave velocity less than 1.3 m/s (Liver Stiffness equal or less than 5 kPa): High probability of being normal. *Shear wave velocity less than 1.7 m/s (Liver Stiffness less than 9 kPa): In the absence of other known clinical signs, rules out compensated advanced chronic liver disease. *Shear wave velocity between 1.7-2.1 m/s (Liver Stiffness 9-13 kPa): Suggestive of compensated advanced chronic liver disease but need further test for confirmation. *Shear wave velocity between 2.1-2.4 m/s (Liver Stiffness 13-17 kPa): Rules in compensated advanced chronic liver disease. *Shear wave velocity greater than 2.4 m/s (Liver Stiffness over 17 kPa): Suggestive of clinically significant portal hypertension. QUALITY OF DATA SET: *IQR/Median value equal or less than 0.15 implies a quality data set. *IQR/Median value over 0.15 implies a poor quality data set. SIGNIFICANT CHANGE FROM PRIOR EXAM: Significant change if liver stiffness measurement is 10% or greater from prior exam. OTHER CONSIDERATIONS: The stage of liver fibrosis may be overestimated in the setting of acute hepatitis, liver inflammation, elevated liver function tests, hepatic vascular congestion, obstructive cholestasis, non-fasting state, and infiltrative diseases such as amyloidosis and lymphoma. In some patients with NAFLD, the liver stiffness thresholds for compensated advanced chronic liver disease may be lower. In causes other than viral hepatitis and NAFLD, liver stiffness thresholds are not well established. Electronically signed by: Anand Vera MD 02/24/2024 10:25 AM [place]
== END 2024-02-23 08:22 | disposition home or self-care (01) ==
LOC: HO.US 08:21
PROVIDERS: PCP Family Medicine; Visit Provider Surgery
DX: K22.70 Barrett's esophagus without dysplasia (principal); K21.9 Gastro-esophageal reflux disease without esophagitis; E66.9 Obesity, unspecified; Z68.32 Body mass index [BMI] 32.0-32.9, adult; E11.9 Type 2 diabetes mellitus without complications; Z79.4 Long term (current) use of insulin
CPT/HCPCS: 76700; 76981

== ENCOUNTER → 2024-02-23 08:23 | Outpatient (BNV) | payer MEDICAID, SELFPAY | PROVIDERS: PCP Family Medicine; Visit Provider Radiology Diagnostic Radiology | DX: E66.9 Obesity, unspecified (principal) | CPT/HCPCS: 76700 ==

== ENCOUNTER 2024-03-09 14:37 | Outpatient (AMB) | payer MEDICAID, SELFPAY ==
[2024-03-09 14:43] VITALS: BMI 31.7
--- NOTE | 2024-03-09 14:43 | A.OFFVIS_ITS ---
Vital Signs 03/09/24 14:43 Height 5 ft 3 in Weight 179 lb BMI 31.7 Intake Visit Reasons: Left shoulder pain and weakness Intake Note: Sonali is a 34 year old right hand dominant female who presents with complaints of progressively worsening left shoulder pain and weakness. The patient states that she injured her left shoulder approximately 2 years ago. She has gone to formal physical therapy which seemed to aggravate her pain. The patient reports difficulty lifting her left hand above shoulder height. She has failed the last 6 weeks of conservative treatment which has included physical therapy exercises, Tylenol and anti-inflammatory medicines. The patient states that her left shoulder pain and weakness are now interfering with her activities of daily mary ing and her ability to sleep well through the night. She denies any numbness or tingling in either of her upper extremities. Allergies Seasonal Allergies Allergy (Mild, Verified 03/09/24 14:44) Runny Nose No Known Drug Allergies Allergy (Unknown, Verified 03/09/24 14:44) none Medication List - Last Reconciled 03/09/24 by Al Hays MD acetaminophen ER 650 mg PO Q8H cholecalciferol (vitamin D3) 125 mcg PO DAILY insulin degludec (Tresiba FlexTouch U-100 insulin) 10 units subcut QAM metformin ER 500 mg PO BID pantoprazole 40 mg PO DAILY sumatriptan succinate 25 mg PO Q2-4H PRN thiamine HCl (vitamin B1) 100 mg PO DAILY tirzepatide (Mounjaro) 2.5 mg subcut QWEEK zinc gluconate 30 mg PO DAILY PFSH Medical History (Updated 03/09/24 @ 15:25 by Al Hays MD) Migraines Insulin dependent type 2 diabetes mellitus BMI 32.0-32.9,adult Obstructive sleep apnea Gallstones Body mass index (BMI) of 38.0 to 38.9 in adult Obesity Type 2 diabetes mellitus Surgical History History of esophagogastroduodenoscopy (EGD) History of cholecystectomy H/O tubal ligation History of surgery on wrist Hx of section Family History Father HTN (hypertension) Mother No problems noted. Sister Arthritis Knee problem Sister Arthritis Allergies Knee problem Brother No problems noted. Brother No problems noted. Son No problems noted. Son Autism Family/Other Breast cancer Social History Alcohol intake: never Patient Tobacco Use Status: Never used Tobacco Physical Exam Vital Signs: BMI result Body Mass Index 31.7 Const Other: Well-nourished well-developed very friendly female awake alert and oriented x3 in no acute distress Extrem Other: Bilateral upper extremity examination shows good capillary refill, no skin lesions noted, normal sensation light touch Left shoulder examination shows decreased motion when compared to odor, 4+ of 5 strength with supraspinatus testing, positive impingement signs, tenderness over her acromioclavicular joint, no instability Results Reviewed Results Reviewed: X-rays of the patient's left shoulder show severe acromioclavicular joint narrowing, a type 2 acromion, no acute bony abnormalities Assessment & Plan Assessment & Plan (1) Rotator cuff insufficiency of left shoulder: Code(s): M25.312 - Other instability, left shoulder Category: Medical Plan Sonali presents with progressively worsening left shoulder pain and weakness due to impingement syndrome and possible full-thickness rotator cuff tearing. Thus, I will send the patient for an MRI of her right shoulder for further evaluation. I will see her back once the MRI is completed to discuss the findings and treatment options. Feel free to call me at any time should questions regarding her orthopedic management arise. Thank you very much for asking me see this very friendly patient. I spent 21 minutes in reviewing the patient's records and imaging studies, seeing the patient and documenting in the medical record. Orders: Orders MR shoulder LT wo con Today M25.312 - Other instability, left shoulder Coding Level of Care Code New Pt Level 3 (13291) Complex EM visit Add On G2211 Diagnoses Rotator cuff insufficiency of left shoulder M25.312
--- OUTSIDE RECORDS SUMMARY | 2024-03-09 15:30 | XMS_ITS | Encounter Summary ---
Author Organization [facility] Address [address] [place] [address] 7 [place] [address] Care Team Providers Care Director Hair Name Role Phone Cinhtya Ray MD Primary Care Provider [phone] Mayito Acuña PharmD Unavailable [phone] Encounter Details Date Type Department Care Team (Late Contact Info) Description 02/26/2022 Abstract [facility] [address] [place] [address] [phone] Cinthya Ray MD [address] [place] [id number] Social History Tobacco Use Types Packs/Day Years Used Date Smoking Tobacco: Never Assessed Comments Unknown Sex and Gender Information Value Date Recorded Sex Assigned at Female 12/10/2021 10:14 AM EDT Legal Sex Female 10:14 AM EDT Gender Identity Female 12/10/2021 10:14 AM EDT Sexual Orientation Straight 12/10/2021 10 :14 AM EDT COVID-19 Exposure Response Date Recorded In the last 10 days, have yo u been in contact with someone who was confirmed or suspected to have Coronavirus/COVID-19? No / Unsure 02/18/2022 3:43 PM EST documented as of this encounter Plan of Treatment Upcoming Encounters Date Type Department Care Team (Late st Contact Info) Description 04/23/2024 3:30 PM EDT Telemedicine [facility] [address] [place] [address] [phone] Mayito Acuña, PharmD [address] [place], [place] [phone] 07/30/2024 3:00 PM EDT Office Visit [facility] [address] [place] [address] Demario Bocanegra documented as of this encounter Visit Diagnoses Not on filedocumented in this encounter Care Teams Director Hair Relationship Specialty Start Date End Date Cinthya Ray MD [address] [place] [id number] PCP - General Family Medicine 10/23/11 Mayito Acuña, DyanD [address] [place] [phone] Pharmacist Internal Medicine 03/07/23 documented as of this encounter
--- OUTSIDE RECORDS SUMMARY | 2024-03-09 15:31 | XMS_ITS | Encounter Summary ---
Author Organization [facility] [employer] Address [address] [place] [address] [address] [place] [address] Care Team Providers Care Roll Tester Name Role Phone Cinthya Ray MD Primary Care Provider [phone] Mayito Acuña PharmD Unavailable [phone] Reason for Visit * Reason Onset Date Comments april recall 03/04/2024 Encounter Details Date Type Department Care Team (Late st Contact Info) Description 03/04/2024 Telephone [facility] [address] [place] [address] Janey Jaramillo [place] april recall Social History Tobacco Use Types Packs/Day Years Used Date Smoking Tobacco: Never Passive Smoke Exposure: Never Smokeless Tobacco: Never Alcohol Use Standard Drinks/Week Comments Never 0 (1 standard drink = 0.6 oz pur e alcohol) Alcohol Answer Date Recorded Frequency of Alcohol Consumption Not on file 11/26/2023 Average Number of Drinks Not on file 024 Frequency of Binge Drinking Not on file 11/10 Score 0 11/26/2023 Depression Answer Date Recorded Patient Health Questionnaire-9 Score 11 09/29/2023 Patient Health Questionnaire-9 Score 11 09/29/2023 Last PHQ-9: Questionnaire Data Not on file 0 09/29/2023 Housing Stability Answer Date Recorded What is your housing situation today? I have trev villalba 06/10/[address] you li ve. Do you have problems with any of the following? I am not sure 06/10/2023 Food Insecurity Answer Date Recorded Within the past 12 months, y ou worried that your food would run out before you got money to buy more: Never True 06/10/2023 Within the past 12 months,th e food you bought just didn't last and you didn't have enough money to get more: Never True Transportation Answer Date Recorded In the past 12 months, has l ack of transportation kept you from medical appts, meetings, work or from getting things needed for daily living? No 06/10/2023 Utilities Answer Date Recorded In the past 12 months, has t he electric, gas, oil or water company threatened to shut off services in your home? No 06/10/2023 Depression Answer Date Recorded Patient Health Questionnaire-2 Score 4 09/29/2023 Comments Unknown Sex and Gender Information Value Date Recorded Sex Assigned at Female 12/10/2021 10:14 AM EDT Legal Sex Female 10:14 AM EDT Gender Identity Female 12/10/2021 10:14 AM EDT Sexual Orientation Straight 12/10/2021 10 :14 AM EDT documented as of this encounter Miscellaneous Notes * Telephone Encounter - Janey Jaramillo MA - 03/04/2024 1:32 PM EST .RONY called the patient to schedule a visit and no answer. Message left to call back and schedule. (April recall pap) documented in this encounter Plan of Treatment Upcoming Encounters Date Type Department Care Team (Late st Contact Info) Description 04/23/2024 3:30 PM EDT Telemedicine [facility] [address] [place] [address] Mayito Acuña PharmD [address] [place] [address] 07/30/2024 3:00 PM EDT Office Visit [facility] [address] [place] [address] Demario Bocanegra documented as of this encounter Goals Goal Patient Goal Type Associated Problems Recent Progress Patient-Stated? Author Blood Pressure < 140/90 Blood Pressure 97/65( 025 9:43 AM EST) No Mayito Acuña, PharmDao Hemoglobin A1c < 7 Result Component 6.1( 10:46 AM EST) No Mayito Acuña PharmD documented as of this encounter Visit Diagnoses Not on filedocumented in this encounter Additional Health Concerns Assessment Noted Time PHQ-9 Depression Total Score: 11 024 9:48 AM EDT documented as of this encounter Care Teams Roll Tester Relationship Specialty Start Date End Date Cinthya Ray MD [address] [place] [address] PCP - General Family Medicine 10/23/11 Mayito Acuña PharmD [address] [place] [phone] Pharmacist Internal Medicine 03/07/23 documented as of this encounter
--- OUTSIDE RECORDS SUMMARY | 2024-03-09 15:31 | XMS_ITS | Clinical Summary ---
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 External Provider, [facility] 02/20/2024 2:00 PM EST Office Visit [facility] [address] [place] [address] [facility] 02/16/2024 Refill [facility] [address] [place] [phone] Mayito Acuña, Citlali Type 2 diabetes mellitus with hyperglycemia, with long-term current use of insulin ([facility]) 02/13/2024 Travel 02/10/2024 Telephone [facility] [address] [place] [phone] Cinthya Ray MD Referral 02/05/2024 Orders Only [facility] [address] [place] [phone] Cinthya Ray MD Chronic left shoulder pain (Primary Dx) 01/31/2024 Orders Only [facility] [address] [place] [phone] Cinthya Ray MD Vitamin D deficiency (Primary Dx) 01/30/2024 8:00 AM EST Office Visit [facility] [address] [place] [address] Demario Bocanegra Dental calculus (Primary Dx) 01/28/[address] [address] Cinthya Ray MD 01/27/2024 3:00 PM EST Office Visit [address] [address] Cinthya Ray MD Type 2 diabetes mellitus with hyperglycemia, with long-term current use of insulin (CMS/HCC) (Primary Dx); Chronic left shoulder pain; Decreased sensation of lower extremity; Mild intermittent asthma without complication; Mixed dyslipidemia; Mixed anxiety and depressive disorder; Class 1 obesity due to excess calories with serious comorbidity and body mass index (BMI) of 33.0 to 33.9 in adult; Dietary counseling; Exercise counseling 01/27/2024 Travel 01/26/2024 Orders Only GENERIC EXTERNAL DATA DEPARTMENT Provider, Generic External Data 01/25/2024 Travel 01/22/[address] [address] Janey Jaramillo MA chart prep 01/20/2024 Travel 01/16/2024 3:30 PM EST Telemedicine [address] [address] Mayito Acuña, Citlali Type 2 diabetes mellitus with hyperglycemia, with long-term current use of insulin (CMS/HCC) (Primary Dx) 12/30/[address] [address] Cinthya Ray MD callback request 12/30/2023 Telephone [facility] [address] [place] [phone] Magali Johnson MA 12/29/2023 3:20 PM EST Office Visit [facility] [address] [place] [phone] Zee Bocanegra MD Dizziness (Primary Dx); Type 2 diabetes mellitus with hyperglycemia, with long-term current use of insulin (CMS/HCC) 12/24/2023 Refill [facility] [address] [place] [address] Cinthya Ray MD Type 2 diabetes mellitus with hyperglycemia, without long-term current use of insulin (CMS/HCC) 12/23/2023 Orders Only [facility] [address] [place] [phone] Cinthya Ray MD Type 2 diabetes mellitus with hyperglycemia, with long-term current use of insulin (CMS/HCC) (Primary Dx) 12/15/2023 6:20 PM EST Office Visit [facility] [address] [place] [phone] Abdias Perez MD Viral URI with cough (Primary Dx) 12/15/2023 Travel 12/12/2023 3:00 PM EDT Telemedicine [facility] [address] [place] [phone] Mayito Acuña, DyanD Type 2 diabetes mellitus with hyperglycemia, with long-term current use of insulin (CMS/[facility]) (Primary Dx) 12/12/2023 Travel from Last 3 Months Immunizations Name Administration Dates Next Due DTP 05/12/1997, 4,1992,08/16,1992 Hep A, Adult 03/14/2023,11/10/2017 Hep A, ped/adol, 2 dose 01/06/2012 Hep B, Adolescent or Pediatric 12/22/1995,1994,10/19/1993 Hib (HbO) 05/14/1993, 3,1992,04/12 IPV 05/12/1997, 4,1992,04/12 Influenza injectable quadriv alent IIV4 with preservative 11/10/2017,04/10/2017,10/24/2014 Influenza, IIV3, injectable 03/17/2009, 9 Influenza, Split (incl. miguel fied surface antigen) 11/13/2012,11/04/2011 Influenza, seasonal, injecta ble, preservative free 12/01/2013 MMR 04/10/2014,05/12/1997,05/14/1993 Meningococcal MCV4P [id number]-135 12/14/2008 Moderna Covid-19 Vaccine 12+ 07/01/2020,06/04/19 21 Pfizer Covid-19 Vaccine 12+ 02/22/2021 Pneumococcal Conjugate PCV 20 04/08/2023 Pneumococcal Polysaccharide PPSV23 04/10/2017 TD (adult), 2 Lf tetanus tox oid, preservative free, adsorbed 09/17/2005 Tdap 08/29/2015,01/06/2012 Family History Medical History Relation Name Comments Asthma Brother Cancer Father Depression Father Asthma Maternal Grandmother Depression Mother alcohol use disorder Mother substance use disorder Mother Arthritis Paternal Grandmother Diabetes type II Paternal Grandmother Hypertension Paternal Grandmother Depression Sister Asthma Son Relation Name Status Comments Brother Father Maternal Grandmother Mother Paternal Grandmother Sister Son Social History Tobacco Use Types Packs/Day Years Used Date Smoking Tobacco: Never Passive Smoke Exposure: Never Smokeless Tobacco: Never Tobacco Cessation:Counseling Given: Not Answered Alcohol Use Standard Drinks/Week Comments Never 0 [...] Orientation Straight 12/10/2021 10 :14 AM EDT Last Filed Vital Signs Vital Sign Reading Time Taken Comments Blood Pressure 97/65 03/02/2024 9:43 AM EST Pulse 104 03/02/2024 9:43 AM EST Temperature 37.7 ??C (99.8 ??F) 03/02/2024 9:43 AM ES T Respiratory Rate 19 03/02/2024 9:43 AM EST Oxygen Saturation 95% 02/26/2024 2:08 PM EST Inhaled Oxygen Concentration - - Weight 81.2 kg (179 lb) 03/02/2024 9:43 AM EST Height 157.5 cm (5' 2 ) 03/02/2024 9:43 AM EST Body Mass Index 32.74 03/02/2024 9:43 AM EST Plan of Treatment Upcoming Encounters Date Type Department Care Team (Late st Contact Info) Description 04/23/2024 3:30 PM EDT Telemedicine [facility] [address] [place] [address] Mayito Acuña, PharmD [address] [place] [address] 07/30/2024 3:00 PM EDT Office Visit [facility] [address] [place] [address] Demario Bocanegra Health Maintenance Due Date Last Done Comments Family Planning (PISQ) 02/26/2007 Dental Oral Exam 02/08/2023 08/08/2022 COVID-19 Vaccine ( season) 2023 02/22/2021, 07/01/2020, 06/03/2020 Influenza Vaccine (#1) 2023 8, 04/10/2017, 10/24/2014, Additional history exists Depression Monitoring (PHQ-9) 03/31/2024 09/29/2023, 09/29/2023 Dental X-Ray: Bitewings 06/04/2024 06/04/2023, 08/08 SDOH Screening 06/09/2024 06/10/2023 Cervical Cancer Screening 07/24/2024 HPV/Cotest 07/24/2024 Pap Smear 07/24/2024 07/24/2021 Diabetes: Hemoglobin A1C 07/26/2024 024, 11/26/2023, 09/10/2023, Additional history exists Dental Prophylaxis 07/31/2024 01/30/2024, 0 06/04/2023, 08/08/2022 Depression Screening 09/28/2024 09/29/2023, 09/29/19 Diabetes: Foot Exam 11/25/2024 11/26/2023, 11/26/2023, 11/26/2023, Additional history exists Diabetes: Urine Protein Screening 11/25/2024 11/26/2023, 09/12/2023, 08/29/2022, Additional history exists Lipid Panel 11/25/2024 11/26/2023, 0803/2023, 06/11/2023, Additional history exists Eye Exam 01/24/2025 01/24/2023 Alcohol/Substance Use Screening 01/26/2025 01/27/2024 Tobacco Screening 02/19/2025 02/20/2024 Dental X-Ray: Full Mouth 08/09/2025 08/08/2022 DTaP/Tdap/Td Vaccines (8 - Td or Tdap) 08/28/2025 08/29/2015, 01/06/2012, 09/17/2005, Additional history exists Zoster Vaccines (1 of 2) 02/26/2042 RSV Patients and Patients Aged 60 years or older (1 - 1-dose 75+ series) 02/26/2067 HIB Vaccines Completed 05/14/1993, 10/1992, 1992, Additional history exists Hepatitis B Vaccines Completed 12/22/1995, 06/14/1994, 10/19/1993 IPV Vaccines Completed 05/12/1997, 10/1993, 1992, Additional history exists Meningococcal Vaccine Completed 12/14/2008 Hepatitis A Vaccines Completed 03/14/2023, 11/10/2017, 01/06/2012 Pneumococcal Vaccine: Pediatrics (0 to 5 Years) and At-Risk Patients (6 to 64 Years) Completed 04/08/2023, 04/10/2017 HIV Screening Completed 11/26/2023, 08/12, 06/11/2023, Additional history exists Hepatitis C Screening Completed 11/26/2023 , 09/10/2023, 06/11/2023, Additional history exists HPV Vaccines Aged Out No longer eligi ble based on patient's age to complete this topic RSV under 20 months Aged Out No longe r eligible based on patient's age to complete this topic Rotavirus Vaccines Aged Out No longer eligible based on patient's age to complete this topic Goals Goal Patient Goal Type Associated Problems Recent Progress Patient-Stated? Author Blood Pressure < 140/90 Blood Pressure 97/65( 025 9:43 AM EST) No Myaito Acuña PharmD Hemoglobin A1c < 7 Result Component 6.1( 10:46 AM EST) No Mayito Acuña, Citlali Procedures Procedure Name Priority Date/Time Associated Diagnosis Comments POCT INFLUENZA A (ID NOW RAPID MOLECULAR) Routine 03/02/2024 10:18 AM EST Cough in adult patient POCT INFLUENZA B (ID NOW RAPID MOLECULAR) Routine 03/02/2024 10:18 AM EST Cough in adult patient POCT RAPID COVID ANTIGEN Routine 03/02/2024 10:18 AM EST Cough in adult patient POCT RAPID STREP A Routine 03/02/2024 10 :18 AM EST Cough in adult patient POC SEBASTIAN ID NOW STREP A Routine 02/26/2024 2:42 PM EST Viral upper respiratory infection POCT INFLUENZA B (ID NOW RAPID MOLECULAR) Routine 02/26/2024 2:42 PM EST Viral upper respiratory infection POCT INFLUENZA A (ID NOW RAPID MOLECULAR) Routine 02/26/2024 2:42 PM EST Viral upper respiratory infection POCT RAPID COVID ANTIGEN Routine 02/26/2024 2:42 PM EST Viral upper respiratory infection US ABDOMEN COMPLETE WITH ELASTOGRAPHY Routine 02/23/2024 8:41 AM EST 13 DO RESTORATIVE - RESIN-BASED COMPOSITE RESTORATIONS - DIRECT - RESIN-BASED COMPOSITE - TWO SURFACES, POSTERIOR Routine 02/20/2024 2:00 PM EST ADJUNCTIVE GENERAL SERVICES - PROFESSIONAL VISITS - CASE PRESENTATION, SUBSEQUENT TO DETAILED AND EXTENSIVE TREATMENT PLANNING Routine 01/30/2024 8:00 AM EST ORAL HYGIENE INSTRUCTIONS Routine 01/30/2024 8:00 AM EST PROPHYLAXIS - ADULT Routine 01/30/2024 8 :00 AM EST XR SHOULDER 2+ VIEWS LEFT Routine 01/27/2024 3:56 PM EST Chronic left shoulder pain VITAMIN B1 Routine 01/26/2024 10:46 AM EST VITAMIN A Routine 01/26/2024 10:46 AM EST ZINC Routine 01/26/2024 10:46 AM EST VITAMIN B12/FOLATE, SERUM PANEL Routine 01/26/2024 10:46 AM EST INSULIN Routine 01/26/2024 10:46 AM EST VITAMIN D,25-OH,TOTAL,IA Routine 01/26/2024 10:46 AM EST FERRITIN Routine 01/26/2024 10:46 AM EST HEMOGLOBIN A1C Routine 01/26/2024 10:46 AM EST CBC WITH AUTO DIFFERENTIAL Routine 01/26/2024 10:46 AM EST POCT URINALYSIS DIPSTICK Routine 12/29/2023 2:42 PM EST Type 2 diabetes mellitus with hyperglycemia, with long-term current use of insulin ([facility]) POCT GLUCOSE Routine 12/29/2023 1:26 PM EST Type 2 diabetes mellitus with hyperglycemia, with long-term current use of insulin (CMS/HCC) POC SEBASTIAN ID NOW STREP A Routine 12/15/2023 6:35 PM EST Viral URI with cough POCT INFLUENZA B (ID NOW RAPID MOLECULAR) Routine 12/15/2023 6:35 PM EST Viral URI with cough POCT INFLUENZA A (ID NOW RAPID MOLECULAR) Routine 12/15/2023 6:35 PM EST Viral URI with cough POCT RAPID COVID ANTIGEN Routine 12/15/2023 6:35 PM EST Viral URI with cough HEPATITIS C AB W/REFL TO HCV RNA, QN, PCR Routine 11/26/2023 11:30 AM EDT Routine screening for STI (sexually transmitted infection) HIV 1/2 ANTIGEN/ANTIBODY, FOURTH GENERATION W/RFL Routine 11/26/2023 11:30 AM EDT Routine screening for STI (sexually transmitted infection) LIPID PANEL WITH REFLEX TO DIRECT LDL Routine 11/26/2023 11:30 AM EDT Metabolic dysfunction-associat ed steatotic liver disease (MASLD) Mixed dyslipidemia ALBUMIN, RANDOM URINE W/CREATININE Routine 11/26/2023 12:00 AM EDT Type 2 diabetes mellitus with hyperglycemia, with long-term current use of insulin (CMS/HCC) BITEWING - SINGLE RADIOGRAPHIC IMAGE Routine 06/04/2023 2:00 PM EDT DIABETES EYE EXAM Routine 01/24/2023 DIAGNOSTIC - DIAGNOSTIC IMAGING - INTRAORAL - COMPREHENSIVE SERIES OF RADIOGRAPHIC IMAGES Routine 08/08/2022 4:00 PM EDT Encounter for dental examination COMPREHENSIVE ORAL EVALUATION - NEW OR ESTABLISHED PATIENT Routine 08/08/2022 4:00 PM EDT THINPREP IMAGING SYSTEM PAP Routine 07/24/2021 4:01 PM EDT from Last 3 Months or Most Recently Relevant to Health Maintenance Results * POCT Rapid Influenza B SEBASTIAN ID NOW (03/02/2024 10:18 AM EST) Only the most recent of3 resultswithin the time period is included. Pathologist [facility] Influenza B Negative Negative, Indeterminate [facility] Swab 03/02/2024 10:1 8 AM EST Sonali Tellez MD POINT OF CARE TEST ENTER/E DIT ORDERABLES Final Result Performing Organization Address [facility]/ZIP Co de Phone Number [facility] [address] [place] [phone] * POCT Rapid Influenza A SEBASTIAN ID NOW (03/02/2024 10:18 AM EST) Only the most recent of3 resultswithin the time period is included. [facility] Influenza A Negative Negative, Indeterminate [facility] Swab 03/02/2024 10:1 8 AM EST Sonali Tellez MD POINT OF CARE TEST ENTER/E DIT ORDERABLES Final Result Performing Organization Address [facility] Co de Phone Number [facility] [address] [place] [phone] * POCT Rapid Covid-19 BinaxNOW (03/02/2024 10:18 AM EST) Only the most recent of3 resultswithin the time period is included. [facility] Rapid COVID Ag Negative Swab 03/02/2024 10:1 8 AM EST Sonali Tellez MD POINT OF CARE TEST ENTER/E DIT ORDERABLES Final Result * POCT rapid strep A manually resulted (03/02/2024 10:18 AM EST) [facility] Rapid Strep A Screen Negative Negative, None Detected Swab 03/02/2024 10:1 8 AM EST us Sonali Tellez MD POINT OF CARE TEST ENTER/E DIT ORDERABLES Final Result * POCT Rapid Strep A SEBASTIAN ID NOW (02/26/2024 2:42 PM EST) Only the most recent of2 resultswithin the time period is included. Pathologist [facility] Rapid Strep A Screen Negative Negative, None Detected Swab 02/26/2024 2:42 PM EST us Sonali Tellez MD POINT OF CARE TEST ENTER/E DIT ORDERABLES Final Result * US Abdomen Comp w elastography (02/23/2024 8:41 AM EST) Anatomical Region Laterality Modality Abdomen Ultrasound 02/23/2024 8:41 AM EST Narrative 02/24/2024 10:28 AM EST ? [facility] ?[address] ?[place] [address] ? Ultrasound Report ? Signed ? Patient: Jose Glenys Rosaearl ?MR#: ?? [id number] ? : 1990 ?Acct:[id number] ? Age/Sex: 33 / F ?ADM Date: 02/23/24 ? Loc: HO.US ? Attending Dr: Nate Mijares MD ? Ordering Physician: Nate Mijares MD ?? Date of Service: 02/23/24 ?? Procedure(s): US abdomen comp w elastography ?? Accession Number(s): [id number] ? cc: Nate Mijares MD; Cinthya Ray MD ? EXAMINATION: ??US ABDOMEN COMPLETE WITH LIVER ELASTOGRAPHY ? HISTORY: E66.9 - Obesity, unspecified ? TECHNIQUE: Real-time grayscale ultrasound imaging of the abdomen was ?? performed and images were reviewed. ? COMPARISON: Comparison is made with the prior examination dated ?? 12/06/2022. ? FINDINGS: ?? Liver: ??The liver is normal in size, but demonstrates increased ?? echotexture, consistent with steatosis. ??No focal mass or intrahepatic ?? biliary ductal dilatation is identified. ??There is normal hepatopedal ?? flow in the portal vein. ? Ultrasound elastography of the liver was performed with 10 separate ?? measurements of the liver parenchyma with the patient in the supine ?? position. ??Measurements were obtained approximately 2 cm below ?? Saeed's capsule and perpendicular to the capsule. ??Images are of ?? satisfactory quality. ? The median shear wave velocity is 1.33 m/s. ?? The interquartile range/median (IQR/median) is 0.18. ? Gallbladder and biliary tree: The patient is status post ?? cholecystectomy. ??The common bile duct is normal in caliber measuring 4 ?? mm. ? Kidneys: ??The right kidney measures 11.4 cm in length. The left kidney ?? measures 10.8 cm in length. ??The kidneys are unremarkable, without ?? evidence of masses, hydronephrosis, or calculi. ? Pancreas: The pancreatic head, neck, and body are unremarkable. The ?? pancreatic tail is obscured by bowel gas. ? Spleen: The spleen is normal in size and contour, measuring 10.7 cm in ?? length. ? Abdominal aorta and inferior vena cava: The visualized portions of the ?? abdominal aorta and inferior vena cava are normal in caliber. ? There is no free fluid in the abdomen. ? US/US abdomen comp w elastography ?? IMPRESSION: ? Hepatic steatosis. ? The median shear wave velocity is 1.33 m/s, corresponding to a median ?? liver stiffness of 5.58 kPa. ??The IQR/median value is 0.18. ??This is ?? indicative of a poor quality data set, and the estimated liver ?? stiffness may be unreliable. ?? Findings are indicative of a low elastography value which rules out ?? advanced chronic liver disease in asymptomatic patients. ? REFERENCE: ?? Society of Radiologists in Ultrasound Liver Stiffness Thresholds (2019): ? LIVER STIFFNESS THRESHOLDS: ?? *Shear wave velocity less than 1.3 m/s (Liver Stiffness equal or less ?? than 5 kPa): ??High probability of being normal. ?? *Shear wave velocity less than 1.7 m/s (Liver Stiffness less than 9 ?? kPa): ??In the absence of other known clinical signs, rules out ?? compensated advanced chronic liver disease. ?? *Shear wave velocity between 1.7-2.1 m/s (Liver Stiffness 9-13 kPa): ? Suggestive of compensated advanced chronic liver disease but need ?? further test for confirmation. ?? *Shear wave velocity between 2.1-2.4 m/s (Liver Stiffness 13-17 kPa): ? Rules in compensated advanced chronic liver disease. ?? *Shear wave velocity ??greater than 2.4 m/s (Liver Stiffness over 17 ?? kPa): ??Suggestive of clinically significant portal hypertension. ? QUALITY OF DATA SET: ?? *IQR/Median value equal or less than 0.15 implies a quality data set. ?? *IQR/Median value over 0.15 implies a poor quality data set. ? SIGNIFICANT CHANGE FROM PRIOR EXAM: ?? Significant change if liver stiffness measurement is 10% or greater ?? from prior exam. ? OTHER CONSIDERATIONS: ?? The stage of liver fibrosis may be overestimated in the setting of ?? acute hepatitis, liver inflammation, elevated liver function tests, ?? hepatic vascular congestion, obstructive cholestasis, non-fasting ?? state, and infiltrative diseases such as amyloidosis and lymphoma. ??In ?? some patients with NAFLD, the liver stiffness thresholds for ?? compensated advanced chronic liver disease may be lower. ??In causes ?? other than viral hepatitis and NAFLD, liver stiffness thresholds are ?? not well established. ? Electronically signed by: ??Anand Vera MD ??02/24/2024 10:25 AM EST ?? RP ? Dictated By: ?Anand Vera MD ? Signed By: ?<Electronically signed by Anand Vera MD in OV> ?02/24/24 1025 ? DD/ 0841 ? TD/TT: 02/23/24 0854 ? Bottled Beverage Inspector: ? Procedure Note Alfie Walden - 02/24/[address] [address] Ultrasound Report Signed Patient: Jeremy Gill#: [id number] : 1990Acct:[id number] Age/Sex: 33 / FADM Date: 02/23/24 Loc: HO.US Attending Dr: Nate Mijares MD Ordering Physician: Nate Mijares MD Date of Service: 02/23/24 Procedure(s): US abdomen comp w elastography Accession Number(s): [id number] cc: Nate Mijares MD; Cinthya Ray MD EXAMINATION: US ABDOMEN COMPLETE WITH LIVER ELASTOGRAPHY HISTORY: E66.9 - Obesity, unspecified TECHNIQUE: Real-time grayscale ultrasound imaging of the abdomen was performed and images were reviewed. COMPARISON: Comparison is made with the prior examination dated 12/06/2022. FINDINGS: Liver: The liver is normal in size, but demonstrates increased echotexture, consistent with steatosis. No focal mass or intrahepatic biliary ductal dilatation is identified. There is normal hepatopedal flow in the portal vein. Ultrasound elastography of the liver was performed with 10 separate measurements of the liver parenchyma with the patient in the supine position. Measurements were obtained approximately 2 cm below Saeed's capsule and perpendicular to the capsule. Images are of satisfactory quality. The median shear wave velocity is 1.33 m/s. The interquartile range/median (IQR/median) is 0.18. Gallbladder and biliary tree: The patient is status post cholecystectomy. The common bile duct is normal in caliber measuring 4 mm. Kidneys: The right kidney measures 11.4 cm in length. The left kidney measures 10.8 cm in length. The kidneys are unremarkable, without evidence of masses, hydronephrosis, or calculi. Pancreas: The pancreatic head, neck, and body are unremarkable. The pancreatic tail is obscured by bowel gas. Spleen: The spleen is normal in size and contour, measuring 10.7 cm in length. Abdominal aorta and inferior vena cava: The visualized portions of the abdominal aorta and inferior vena cava are normal in caliber. There is no free fluid in the abdomen. US/US abdomen comp w elastography IMPRESSION: Hepatic steatosis. The median shear wave velocity is 1.33 m/s, corresponding to a median liver stiffness of 5.58 kPa. The IQR/median value is 0.18. This is indicative of a poor quality data set, and the estimated liver stiffness may be unreliable. Findings are indicative of a low elastography value which rules out advanced chronic liver disease in asymptomatic patients. REFERENCE: Society of Radiologists in Ultrasound Liver Stiffness Thresholds (2020): LIVER STIFFNESS THRESHOLDS: *Shear wave velocity less than 1.3 m/s (Liver Stiffness equal or less than 5 kPa): High probability of being normal. *Shear wave velocity less than 1.7 m/s (Liver Stiffness less than 9 kPa): In the absence of other known clinical signs, rules out compensated advanced chronic liver disease. *Shear wave velocity between 1.7-2.1 m/s (Liver Stiffness 9-13 kPa): Suggestive of compensated advanced chronic liver disease but need further test for confirmation. *Shear wave velocity between 2.1-2.4 m/s (Liver Stiffness 13-17 kPa): Rules in compensated advanced chronic liver disease. *Shear wave velocity greater than 2.4 m/s (Liver Stiffness over 17 kPa): Suggestive of clinically significant portal hypertension. QUALITY OF DATA SET: *IQR/Median value equal or less than 0.15 implies a quality data set. *IQR/Median value over 0.15 implies a poor quality data set. SIGNIFICANT CHANGE FROM PRIOR EXAM: Significant change if liver stiffness measurement is 10% or greater from prior exam. OTHER CONSIDERATIONS: The stage of liver fibrosis may be overestimated in the setting of acute hepatitis, liver inflammation, elevated liver function tests, hepatic vascular congestion, obstructive cholestasis, non-fasting state, and infiltrative diseases such as amyloidosis and lymphoma. In some patients with NAFLD, the liver stiffness thresholds for compensated advanced chronic liver disease may be lower. In causes other than viral hepatitis and NAFLD, liver stiffness thresholds are not well established. Electronically signed by: Anand Vera MD 02/24/2024 10:25 AM EST Dictated By: Anand Vera MD Signed By: <Electronically signed by Anand Vera MD in OV> 02/24/24 1025 DD/ 0841 TD/TT: 02/23/24 0854 Bottled Beverage Inspector: us [facility] External Provider IMG US PROCEDURES Final Result * XR Shoulder 2+ Views Left (01/27/2024 3:56 PM EST) Anatomical Region Laterality Modality Upper Extremities, Shoulder Left Radi ographic Imaging 01/27/2024 3:56 PM EST Narrative 01/28/2024 10:15 AM EST ?[facility] ?[address] ?[place] [address] ?XRay Report ? Signed ? Patient: Sonali Gill ?MR#: ?? [id number] ? : 1990 ?Acct:[id number] ? Age/Sex: 33 / F ?ADM Date: 01/27/24 ? Loc: HO.HHCX ? Attending Dr: Cinthya Ray MD ? Ordering Physician: Cinthya Ray MD ?? Date of Service: 01/27/24 ?? Procedure(s): XR shoulder LT min 2V ?? Accession Number(s): [id number] ? cc: Cinthya Ray MD ? EXAMINATION: ?? XR SHOULDER, LEFT ? CLINICAL INFORMATION: ?? left shoulder pain, limited ROM. ??Chronic left shoulder pain ? COMPARISON: ?? None available. ? TECHNIQUE: ?? AP external rotation, Grashey, scapular Y, and axillary views of the ?? left shoulder. ? FINDINGS: ?? Acromioclavicular and glenohumeral alignment maintained. Bone ?? mineralization is normal. ? XR/XR shoulder LT min 2V ?? IMPRESSION: ?? No displaced fracture. ? This study was presented today to January 28, 2024 for interpretation. ?? Stat results provided at this time as requested by referring provider. ? Electronically signed by: ??Ruthie Calderón MD ??01/28/2024 10:12 AM EST ? Dictated By: ?Ruthie Calderón MD ? Signed By: ?<Electronically signed by Ruthie Calderón MD in OV> ? 01/28/24 1012 ? DD/ 1556 ? TD/TT: 01/27/24 1600 ? Bottled Beverage Inspector: ? Procedure Note Alfie Walden - 01/28/2024 [facility] [address] [place] [address] XRay Report Signed Patient: Jeremy Gill#: [id number] : 1990Acct:[id number] Age/Sex: 33 / FADM Date: 01/27/24 Loc: HO.HHCX Attending Dr: Cinthya Ray MD Ordering Physician: Cinthya Ray MD Date of Service: 01/27/24 Procedure(s): XR shoulder LT min 2V Accession Number(s): [id number] cc: Cinthya Ray MD EXAMINATION: XR SHOULDER, LEFT CLINICAL INFORMATION: left shoulder pain, limited ROM. Chronic left shoulder pain COMPARISON: None available. TECHNIQUE: AP external rotation, Grashey, scapular Y, and axillary views of the left shoulder. FINDINGS: Acromioclavicular and glenohumeral alignment maintained. Bone mineralization is normal. XR/XR shoulder LT min 2V IMPRESSION: No displaced fracture. This study was presented today to January 28, 2024 for interpretation. Stat results provided at this time as requested by referring provider. Electronically signed by: Ruthie Calderón MD 01/28/2024 10:12 AM EST Dictated By: Ruthie Calderón MD Signed By: <Electronically signed by Ruthie Calderón MD in OV> 01/28/24 1012 DD/ 1556 TD/TT: 01/27/24 1600 Bottled Beverage Inspector: Cinthya Ray MD IMG XR PROCEDURES Edited Result - Final * (ABNORMAL) Vitamin D, 25-Hydroxy, Total, Immunoassay (01/26/2024 10:46 AM EST) Vitamin D 25-OH Total 15.9(L) >30 ng/mL [facility] Comment:Health Based Referen ce Values*< 20 ng/mL Aewcjtyve81-45 ng/mL Insufficient> 30 ng/mL Sufficient*Jaylon BLUNT. N Engl J Med. 2007;357:266-280Care must be taken in interpreting Vitamin D results fromdifferent laboratories and methodologies. Published datademonstrated that results from patients undergoinghemodialysis may show a negative bias when tested withvarious automated 25-OH vitamin D assays when compared toLC-MS/MS.When testing samples from patients whose predominant form ofVitamin D is Vitamin D2, such as patients receiving VitaminD2 supplementation, results that are subtherapeutic shouldbe confirmed with another method such as LC-MS/MS. 01/26/2024 10:4 6 AM EST 01/26/2024 10:46 AM EST Generic External Data Provider LAB BLOOD ORDERAB LES Final Result Performing Organization Address [facility] de Phone Number [facility] [address] [place] [phone] * Vitamin B12 (Cobalamin) and Folate Panel, Serum (01/26/2024 10:46 AM EST) [facility] Vitamin B12 537 200 - 900 pg/mL [facility] Comment:NORMAL 200-900 PG/ML INDETERMINATE 160-199 PG/ML DEFICIENT < 160 PG/ML Folate 7.4 > or = 4.0 ng/mL [facility] Comment:Reference Values:> o r = 4.0 ng/mL< 4.0 ng/mL suggests folate deficiency Methotrexate, aminopterin and folinic acid(leucovorin) are chemotherapeutic agents whose molecularstructures are similar to folate; therefore, the Architectfolate assay cannot be used for patients using these drugs. 01/26/2024 10:4 6 AM EST 01/26/2024 10:46 AM EST [employer] External Data Provider LAB BLOOD ORDERAB LES Final Result Performing Organization Address [facility] de Phone Number [facility] [address] [place] [phone] * (ABNORMAL) CBC auto differential (01/26/2024 10:46 AM EST) [facility] White Blood Count 9.1 4.8 - 10.8 X10*3/uL [facility] Red Blood Count 4.78 4.20 - 5.50 X10*6/uL [facility] Hemoglobin 12.0 12.0 - 16.0 g/dl [facility] Hematocrit 37.7 37.0 - 47.0 % [facility] Mean Corpuscular Volume 78.9(L) 80.0 - 98.0 fL [facility] Mean Corpuscular Hemoglobin 25.1(L) 27.0 - 33.0 pg [facility] Mean Corpuscular HGB Conc 31.8 31.0 - 35.0 g/dl [facility] Red Cell Distribution Width 13.4 11.0 - 16.0 % [facility] Platelet Count 326 160 - 400 X10*3/uL [facility] Mean Platelet Volume 9.3(L) 9.4 - 12.3 fL [facility] Neutrophils Percent Auto 63.6 45 - 73 % [facility] Imm Gran Pct Auto 0.2 0.0 - 0.4 % [facility] Lymphocytes Percent Auto 29.9 20 - 40 % [facility] Monocytes Percent Auto 4.9 2 - 11 % [facility] Eosinophils Percent Auto 1.0 0 - 4 % [facility] Basophils Percent Auto 0.4 0 - 2 % [facility] NRBC Pct Auto 0.0 0.0 - 0.2 /100WBC [facility] Neutrophils Absolute Auto 5.8 2.0 - 8.3 x10*3/uL [facility] Imm Gran Abs Auto 0.02 0.00 - 0.03 X10*3/uL [facility] Lymphocytes Absolute Auto 2.7 1.2 - 4.9 X10*3/uL [facility] Monocytes Absolute Auto 0.4 0.1 - 1.2 X10*3/uL [facility] Eosinophils Absolute Auto 0.1 0.0 - 0.4 X10*3/uL [facility] Basophils Absolute Auto 0.0 0.0 - 0.2 X10*3/uL [facility] NRBC Abs Auto 0.000 0.0 - 0.012 X10*3/uL [facility] 01/26/2024 10:4 6 AM EST 01/26/2024 10:46 AM EST us Generic External Data Provider LAB BLOOD ORDERAB LES Final Result Performing Organization Address [facility] Co de Phone Number [facility] [address] [place] [phone] * (ABNORMAL) Insulin (01/26/2024 10:46 AM EST) Insulin 186(H) 2 - 29 uU/mL [facility] Comment:This test was perfor med using the Sebastian chemiluminescentmethod. Values obtained from different assay methods cannot beused interchangeably. This insulin assay shows a possiblecross-reactivity with antibodies generated against insulin(immunoreactive insulin and some patients treated withbovine or porcine insulin). Insulin levels may be measuredlower in patients with insulin autoimmune syndrome orfamilial high pro-insulinemia. 01/26/2024 10:4 6 AM EST 01/26/2024 10:46 AM EST Generic External Data Provider LAB BLOOD ORDERAB LES Final Result Performing Organization Address [facility] de Phone Number [facility] [address] [place] [address] [phone] * (ABNORMAL) Zinc (01/26/2024 10:46 AM EST) Zinc 54(A) 60 - 130 mcg/dL [facility] Comment:This test was develo ped and its analytical performancecharacteristics have been determined by [employer] [place], [place]. It hasnot been cleared or approved by the U.S. Food and DrugAdministration. This assay has been validated pursuantto the CLIA regulations and is used for clinicalpurposes.THIS TEST WAS PERFORMED AT:[id number] [place] [id number] MANNING MD,PHD 01/26/2024 10:4 6 AM EST 01/26/2024 10:46 AM EST Generic External Data Provider LAB BLOOD ORDERAB LES Final Result Performing Organization Address [facility]/ZIP Co de Phone Number [facility] [address] [place] [phone] * Vitamin A (01/26/2024 10:46 AM EST) Pathologist [facility] Vitamin A (Retinol) 41 38 - 98 mcg/dL [facility] Comment:Vitamin supplementat ion within 24 hours prior toblood draw may affect the accuracy of the results.This test was developed and its analytical performancecharacteristics have been determined by [employer]. It hasnot been cleared or approved by the U.S. Food and DrugAdministration. This assay has been validated pursuantto the CLIA regulations and is used for clinicalpurposes.THIS TEST WAS PERFORMED AT:[employer] [id number] [place] [id number] MANNING MD,PHD 01/26/2024 10:4 6 AM EST 01/26/2024 10:46 AM EST Generic External Data Provider LAB BLOOD ORDERAB LES Final Result Performing Organization Address [facility] Co de Phone Number [facility] [address] [place] [phone] * (ABNORMAL) Vitamin B1 (01/26/2024 10:46 AM EST) [facility] Vitamin B1 <6(A) 8 - 30 nmol/L [facility] Comment:Vitamin supplementat ion within 24 hours prior toblood draw may affect the accuracy of the results.This test was developed and its analytical performancecharacteristics have been determined by [place], [place]. It hasnot been cleared or approved by the [employer] and DrugAdministration. This assay has been validated pursuantto the CLIA regulations and is used for clinicalpurposes.THIS TEST WAS PERFORMED AT:[employer]/[id number] [place] [id number] MANNING MD,PHD 01/26/2024 10:4 6 AM EST 01/26/2024 10:46 AM EST us Generic External Data Provider LAB BLOOD ORDERAB LES Final Result Performing Organization Address [facility] Co de Phone Number [facility] [address] [place] [phone] * (ABNORMAL) Hemoglobin A1c (01/26/2024 10:46 AM EST) Hemoglobin A1c 6.1(H) <6.0 % [facility] Comment:Hemoglobin A1C Refer ence Range Adults: 4.8 - 6.0 % Non diabetic: < 6.0 % Goal: < 7.0 %Additional Action Suggested: > 8.0 %Note: Hemoglobin A1c results are invalid for patients with abnormal amounts of HbF. Blood transfusions may impact the HbA1c concentration in the patient sample. Estimated Average Glucose 128 mg/dL [facility] Comment:eAG = Estimated ave rage glucose which is %A1C expressed asaverage glucose, using the formula of the Z0M-RgekefgFnprxay Glucose study (ADAG), Diabetes Care, Vol.31,#8,2007 01/26/2024 10:4 6 AM EST 01/26/2024 10:46 AM EST us Generic External Data Provider LAB BLOOD ORDERAB LES Final Result Performing Organization Address [facility] Co de Phone Number [facility] [address] [place] [phone] * Ferritin (01/26/2024 10:46 AM EST) Ferritin 15 10 - 122 ng/mL [facility] 01/26/2024 10:4 6 AM EST 01/26/2024 10:46 AM EST us Generic External Data Provider LAB BLOOD ORDERAB LES Final Result Performing Organization Address City/[facility] Co de Phone Number [facility] [address] [place] [phone] * POCT urinalysis dipstick manually resulted (12/29/2023 2:42 PM EST) Color, UA Yellow Clarity, UA Clear Glucose, UA Negative Bilirubin, UA Trace Comment:SMALL Ketones, UA Negative Spec Grav, UA 1.030 Blood, UA Negative Negative, None Detected pH, UA 5.5 Protein, UA Negative Urobilinogen, UA 0.2 Leukocytes, UA Negative Negative, Rare, Trace Nitrite, UA Negative Negative, None Detected Urine 12/29/2023 2:42 PM EST us Zee Bocanegra MD POINT OF CARE TEST ENTER/ED IT ORDERABLES Final Result * POCT Glucose (12/29/2023 1:26 PM EST) Glucose Blood, POC 132 60 - 200 mg/dL Blood Capillary blood specimen / Unknown 12/29/2023 1:26 PM EST us Zee Bocanegra MD POINT OF CARE TEST ENTER/ED IT ORDERABLES Final Result * (ABNORMAL) Lipid Panel with Reflex to Direct LDL (11/26/2023 11:30 AM EDT) Triglycerides 145 <150 mg/dL [facility] Comment:Desirable Triglyceri de: less than 150 mg/dLBorderline High Triglyceride 150-199 mg/dLHigh Triglyceride: 200-499 mg/dLVery High Triglyceride: greater than or equal to 5OO mg/dL Cholesterol 152 <200 mg/dL [facility] Comment:Desirable Cholestero l: less than 200 mg/dLBorderline High Cholesterol: 200-239 mg/dLHigh Cholesterol: greater than 239 mg/dL LDL Cholesterol Calculated 91 <100 mg/dL [facility] Comment:Desirable LDL: less than 100 mg/dLNear Optimal/Above Optimal LDL: 110- 129 mg/dLBorderline High LDL: 130-159 mg/dLHigh LDL: 160-189 mg/dLVery High LDL: greater than or equal to 190 mg/dL HDL Cholesterol 32(L) >40 mg/dL [facility] Comment:Desirable HDL: great er than 40 mg/dL Note: This HDL assay may give artificially low results in patients with liver disease. Blood 11/26/2023 11:3 0 AM EDT 11/26/2023 1:20 PM EDT Cinthya Ray MD LAB BLOOD ORDERABLES Final Resul t Performing Organization Address [facility] Co de Phone Number [facility] [address] [place] [phone] * Hepatitis C Antibody with Reflex to HCV, RNA, Quantitative, Real-Time PCR (11/26/2023 11:30 AM EDT) Hepatitis C Antibody Nonreactive Nonreactive [facility] Comment:Antibodies to HCV no t detected; does not exclude early acuteHCV infection. Blood Venous blood specimen / Unknown 11/26/2023 11:30 AM EDT 11/26/2023 1:20 PM EDT Cinthya Ray MD LAB BLOOD ORDERABLES Final Resul t Performing Organization Address [facility] Co de Phone Number [facility] [address] [place] [phone] * HIV-1/2 Antigen and Antibodies, Fourth Generation, with Reflexes (11/26/2023 11:30 AM EDT) HIV AB/AG Nonreactive Nonreactive [facility] Comment:HIV-1 p24 Ag and/or HIV-1/HIV-2 Ab not detected.A test result that is nonreactive does not exclude thepossibility of exposure to or infection with HIV-1 and/orHIV-2. Nonreactive results in this assay for individualswith prior exposure to HIV-1 and/or HIV-2 may be due toantigen and antibody levels that are below the limit ofdetection of this assay.The Spare Backup HIV Ag/Ab Combo assay result andsupplemental assay results should be interpreted inconjunction with the patient's clinical presentation,history and other laboratory results. If the results areinconsistent with clinical evidence, additional testing issuggested to confirm the result. Blood Venous blood specimen / Unknown 11/26/2023 11:30 AM EDT 11/26/2023 1:20 PM EDT Cinthya Ray MD LAB BLOOD ORDERABLES Final Resul t Performing Organization Address [facility] Co de Phone Number [facility] [address] [place], [place] [phone] * Albumin, Random Urine W/Creatinine (11/26/2023 12:00 AM EDT) Creatinine, Urine 238.24 mg/dL [facility] Microalbumin Urine 23.0 mg/L [facility] Microalbum Creatinine Ratio Ur 9.6 <30 ug/mg cr [facility] Comment:Albumin/Creatinine R atio Reference Ranges: Normal: < 30 ug/mg creatinine Microalbuminuria: 30 - 300 ug/mg creatinineClinical Albuminuria: > 300 ug/mg creatinine Urine 11/26/2023 11/26/2023 Cinthya Ray MD LAB URINE ORDERABLES Final Resul t Performing Organization Address [facility] Co de Phone Number [facility] [address] [place] [phone] * Diabetes Eye Exam (01/24/2023) Eye Exam Normal Normal Comment:[facility] 01/24/2023 Berta Rousseau MD HEALTH MAINTENANCE Final Result * THINPREP TIS PAP (07/24/2021 4:01 PM EDT) Clinical Information: None given [facility] COMMENT SEE COMMENT [facility] Comment: EXPLANATORY NOTE: ? The Pap is a screening test for cervical cancer. It is ?? not a diagnostic test and is subject to false negative ?? and false positive results. It is most reliable when a ?? satisfactory sample, regularly obtained, is submitted ?? with relevant clinical findings and history, and when ?? the Pap result is evaluated along with historic and ?? current clinical information. ?? COMMENT: This Pap test has been evaluated with computer assisted technology. [facility] [employer]ist [employer] : SEE COMMENT [facility] Comment: MXD, CT (ASCP) CT screening location: [address] ??[address] Interpretation/R esult: Negative for intraepithelial lesion or malignancy. [facility] LMP: NONE [facility]IVEN [facility] Prev. BX: NONE [facility]IV[facility] Prev. PAP: NONE [facility]IVEN [facility] SOURCE: None given [facility] Statement Of Adequacy: SEE COMMENT [facility] Comment: Satisfactory for evaluation. Endocervical/transformation zone component present. Age and/or menstrual status not provided 07/24/2021 4:01 PM EDT us Cinthya Ray MD LAB PATHOLOGY ORDERABLES Final R esult Performing Organization Address City/State/[facility] Co de Phone Number [facility] [address] from Last 3 Months or Most Recently Relevant to Health Maintenance [facility] * Guarantor: Sonali Gill Account Type Relation to Patient Date of Phone Billing Address Personal/Family Self 44 [address] Care Teams Final Inspector Motorcyles Relationship Specialty Start Date End Date Cinthya Ray MD [address] [place] [address] PCP - General Family Medicine 10/23/11 Mayito Acuña, PharmD [address] [place] [address] Pharmacist Internal Medicine 03/07/23
--- OUTSIDE RECORDS SUMMARY | 2024-03-09 15:31 | XMS_ITS | Encounter Summary ---
Author Organization [employer] Address [address] [facility] [address] [place] [address] Care Team Providers Care Formulation Chemist Name Role Phone Cinthya Ray MD Primary Care Provider [phone] Mayito Acuña PharmD Unavailable [phone] Encounter Details Date Type Department Care Team (Late st Contact Info) Description 02/23/2024 Orders Only [facility] External Provider, [facility] Social History Tobacco Use Types Packs/Day Years [...] AM EDT documented as of this encounter Plan of Treatment Upcoming Encounters Date Type Department Care Team (Late st Contact Info) Description 04/23/2024 3:30 PM EDT Telemedicine [facility] [address] [place] [address] Mayito Acuña PharmD [address] [place] [address] 07/30/2024 3:00 PM EDT Office Visit [facility] [address] [place], [place] [phone] Demario Bocanegra documented as of this encounter Goals Goal Patient Goal Type Associated Problems Recent Progress Patient-Stated? Author Blood Pressure < 140/90 Blood Pressure 97/65( 025 9:43 AM EST) No Mayito Acuña, PharmDao Hemoglobin A1c < 7 Result Component 6.1( 10:46 AM EST) No Mayito Acuña PharmD documented as of this encounter Procedures Procedure Name Priority Date/Time Associated Diagnosis Comments US ABDOMEN COMPLETE WITH ELASTOGRAPHY Routine 02/23/2024 8:41 AM EST documented in this encounter Results * US Abdomen Comp w elastography (02/23/2024 8:41 AM EST) Anatomical Region Laterality Modality Abdomen Ultrasound 02/23/2024 8:41 AM EST Narrative 02/24/2024 10:28 AM EST ? [facility] [facility] ?[address] ?[place] [address] ? Ultrasound Report ? Signed ? Patient: Sonali Gill ?MR#: ?? [id number] ? : 1990 ?Acct:[id number] ? Age/Sex: 33 / F ?ADM Date: 02/23/24 ? Loc: HO.US ? Attending Dr: Nate Mijares MD ? Ordering Physician: Nate Mijares MD ?? Date of Service: 02/23/24 ?? Procedure(s): US abdomen comp w elastography ?? Accession Number(s): [id number] ? cc: Nate Mijares MD; Cinthya Ray [...] ??Anand Vera MD ??02/24/2024 10:25 AM EST ? Dictated By: ?Anand Vera MD ? Signed By: ?<Electronically signed by Anand Vera MD in OV> ?02/24/24 1025 ? DD/ 0841 ? TD/TT: 02/23/24 0854 ? Billet Driller: ? Procedure Note Donlary, Image - 02/24/2024 [place] [address] Ultrasound Report Signed Patient: Jeremy Gill#: [id number] : 1990Acct:[id number] Age/Sex: Date: 02/23/24 Loc: HO.US Attending Dr: Nate Mijares MD Ordering Physician: Nate Mijares MD Date of Service: 02/23/24 Procedure(s): US abdomen comp w elastography Accession Number(s): [id number] cc: Nate Mijares MD; Cinthya Ray MD [...] by: Anand Vera MD 02/24/2024 10:25 AM [facility] Dictated By: Anand Vera MD Signed By: <Electronically signed by Anand Vera MD in OV> 02/24/24 1025 DD/ 0841 TD/TT: 02/23/24 0854 Billet Driller: [facility] External Provider IMG US PROCEDURES Final Result documented in this encounter Visit Diagnoses Not on filedocumented in this encounter Additional Health Concerns Assessment Noted Time PHQ-9 Depression Total Score: 11 024 9:48 AM EDT documented as of this encounter Care Teams Formulation Chemist Relationship Specialty Start Date End Date Cinthya Ray MD [address] [place] [address] PCP - General Family Medicine 10/23/11 Mayito Acuña, DyanD [address] [place] [address] Pharmacist Internal Medicine 03/07/23 documented as of this encounter
--- OUTSIDE RECORDS SUMMARY | 2024-03-09 15:31 | XMS_ITS | Encounter Summary ---
Author Organization [employer] Address [address] [facility] 7 [place] [address] Care Team Providers Care Transportation Operations Manager Name Role Phone Cinthya Ray MD Primary Care Provider [phone] Mayito Acuña PharmD Unavailable [phone] Encounter Details Date Type Department Care Team (Late st Contact Info) Description 03/05/2024 Orders Only [facility] MEDICINE [address] [place], [place] [phone] Cinthya Ray MD [address] [place], [place] [phone] Type 2 diabetes mellitus with other specified complication, with long-term current use of insulin ([facility]) (Primary Dx) Social History Tobacco Use Types Packs/Day Years [...] the past 12 months, has t he [employer], gas, oil or water company threatened to [...] Info) Description 04/23/2024 3:30 PM EDT Telemedicine [facility] MEDICINE [address] [place] [address] Mayito Acuña PharmD [address] [place] [address] 07/30/2024 3:00 PM EDT Office Visit [facility] CHC ADULT DENTAL [address] [place] [address] Demario Bocanegra documented as of this encounter Goals Goal Patient Goal Type Associated Problems Recent Progress Patient-Stated? Author Blood Pressure < 140/90 Blood Pressure 97/65( 025 9:43 AM EST) No Mayito Acuña PharmD Hemoglobin A1c < 7 Result Component 6.1( 4 10:46 AM EST) No Mayito Acuña PharmD documented as of this encounter Visit Diagnoses Diagnosis Type 2 diabetes mellitus with other specified complication, with long-term current use of insulin ([facility])- Primary documented in this encounter Additional Health Concerns Assessment Noted Time PHQ-9 Depression Total Score: 11 024 9:48 AM EDT documented as of this encounter Care Teams Transportation Operations Manager Relationship Specialty Start Date End Date Cinthya Ray MD [address] [place] [address] PCP - General Family Medicine 10/23/11 Mayito Acuña PharmD [address] [place] [address] Pharmacist Internal Medicine 03/07/23 documented as of this encounter
--- OUTSIDE RECORDS SUMMARY | 2024-03-09 15:31 | XMS_ITS | Encounter Summary ---
Author Organization [facility] Address [address] [place] [address] 7 [place] [address] Care Team Providers Care White Washer Name Role Phone Cinthya Ray MD Primary Care Provider [phone] Mayito Acuña PharmD Unavailable [phone] Reason for Visit * Reason Onset Date Comments triage 04/10/2022 Encounter Details Date Type Department Care Team (Late st Contact Info) Description 04/10/2022 Telephone [facility] MEDICINE [address] [place], [place] [phone] Cinthya Ray MD [address] [place], [place] [phone] triage Social History Tobacco Use Types Packs/Day Years Used Date Smoking Tobacco: Never Passive Smoke Exposure: Never Smokeless Tobacco: Never PHQ-2 Answer Date Recorded Patient Health Questionnaire-2 Score 4 04/04/2022 Depression Answer Date Recorded Patient Health Questionnaire-2 Score 4 04/04/2022 Comments Unknown Sex and Gender Information Value [...] suspected to have Coronavirus/COVID-19? No / Unsure 04/09/2022 1:57 PM EST documented as of this encounter Miscellaneous Notes * Telephone Encounter - Doreen Mosqueda RN - 04/10/2022 12:55 PM EST Triage call Pt reports continued vaginal itchiness from yeast infection. Pt seen 03/09 and diflucan tablet was taken. Advised Pt to continue with general home care advice. Advised to take second diflucan on 3rd day as directed. Call back if symptoms continue after second dose of diflucan. Pt agreed with disposition and will call back if needed. Protocol Used: Vaginal Symptoms (Adult) Protocol-Based Disposition: Home Care Positive Triage Question: * Mild vaginal itching * All higher-acuity triage questions were negative Care Advice Discussed: * Reassurance and Education - Vaginal Yeast Infection * Genital Hygiene * Antifungal Medicine for Yeast Infection * Antifungal Medicine for Yeast Infection - Extra Notes and Warnings * Expected Course * Reasons To Call Back - Discharge becomes yellow or green - Discharge smells bad - Fever or abdomen pain occur - You become worse. * Cleansing * Genital Hygiene * Telephone Encounter - Seth Bradshaw - 04/10/2022 12:46 PM EST Tc from pt returning triage nurses call. * Telephone Encounter - Paris Luque - 04/10/2022 12:11 PM EST Symptom: Vaginal Symptoms - Not Bleeding Outcome: Schedule an appointment to be seen within 24 hours Reason: No high acuity concerns reported by caller The caller accepted this outcome Pt states has a yeast infection . Pt is taking medication but does not seem to be working . documented in this encounter Plan of Treatment Upcoming Encounters Date Type Department Care Team (Late st Contact Info) Description 04/23/2024 3:30 PM EDT Telemedicine [facility] MEDICINE [address] [place] [address] Mayito Acuña, PharmD [address] [place] [address] 07/30/2024 3:00 PM EDT Office Visit [facility] CHC ADULT DENTAL [address] [place] [address] Demario Bocanegra documented as of this encounter Visit Diagnoses Not on filedocumented in this encounter Care Teams White Washer Relationship Specialty Start Date End Date Cinthya Ray MD [address] [place] [address] PCP - General Family Medicine 10/23/11 Mayito Acuña, Citlali [address] [place] [phone] Pharmacist Internal Medicine 03/07/23 documented as of this encounter
--- OUTSIDE RECORDS SUMMARY | 2024-03-09 15:31 | XMS_ITS | Encounter Summary ---
Author Organization [employer] Address [address] [facility] 7 [place] [address] Care Team Providers Care Access Liaison Name Role Phone Cinthya Ray MD Primary Care Provider Mayito Acuña PharmD Unavailable [phone] Reason for Visit * Reason Comments Abdominal Pain Fever Headache Diarrhea Encounter Details Date Type Department Care Team ([facility] st Contact Info) Description 02/26/2024 2:00 PM EST Office Visit [facility] [address] [place] [phone] Sonali Tellez MD [address] [place] [address] Viral upper respiratory infection (Primary Dx); Influenza Social History Tobacco Use Types Packs/Day Years [...] the past 12 months, has t he [employer], gas, oil or water company threatened to [...] AM EDT documented as of this encounter Last Filed Vital Signs Vital Sign Reading Time Taken Comments Blood Pressure 97/68 02/26/2024 2:08 PM EST Pulse 109 02/26/2024 2:08 PM EST Temperature 36.6 ??C (97.8 ??F) 02/26/2024 2:08 PM ES T Respiratory Rate 17 02/26/2024 2:08 PM EST Oxygen Saturation 95% 02/26/2024 2:08 PM EST Inhaled Oxygen Concentration - - Weight 82.8 kg (182 lb 9.6 oz) 02/26/2024 2:08 P M EST Height - - Body Mass Index 33.4 11/26/2023 10:19 AM EDT documented in this encounter Progress Notes * Carissa Orellana - 02/26/2024 2:00 PM EST Subjective Patient ID: Sonali Rosa is a 33 y.o. female with PMHx of diabetes mellitus type 2, STELLA,and depression who presents to walk in clinic for Abdominal Pain, Fever, Headache, and Diarrhea. Pt reports she has been feeling sick , having headaches, feeling feverish, nauseous(no vomiting) and having diarrhea. She says her symptoms started about 3 days ago. Review of Systems Constitutional: Positive for fever. Negative for unexpected weight change. Respiratory: Negative for shortness of breath. Cardiovascular: Negative for chest pain. Gastrointestinal: Positive for diarrhea and nausea. Negative for abdominal pain. Genitourinary: Negative for difficulty urinating. Neurological: Positive for headaches. Objective Visit Vitals BP 97/68 (BP Location: Right arm, Patient Position: Sitting, BP Cuff Size: Adult) Pulse 109 Temp 97.8 ??F (36.6 ??C) (Oral) Resp 17 Body mass index is 33.4 kg/m??. Physical Exam Constitutional: Appearance: Normal appearance. HENT: Nose: Congestion present. Mouth/Throat: Mouth: Mucous membranes are moist. Pharynx: Oropharynx is clear. Uvula midline. Eyes: Extraocular Movements: Extraocular movements intact. Cardiovascular: Rate and Rhythm: Normal rate and regular rhythm. Heart sounds: Normal heart sounds. Pulmonary: Effort: Pulmonary effort is normal. Breath sounds: Normal breath sounds. No wheezing. Abdominal: General: Abdomen is flat. Palpations: Abdomen is soft. Tenderness: There is no abdominal tenderness. Musculoskeletal: Cervical back: Normal range of motion and neck supple. Lymphadenopathy: Cervical: No cervical adenopathy. Skin: General: Skin is warm and dry. Neurological: General: No focal deficit present. Mental Status: She is alert. Psychiatric: Behavior: Behavior normal. Problem List Items Addressed This Visit Viral upper respiratory infection - Primary COVID, Flu and Strep negative. Pt presented with her two kids, one kid tested positive for COVID and the other tested positive for Flu. At the same visit. -Prescribed oseltamivir (Tamiflu) 75 MG capsule -No evidence of respiratory distress. Symptoms mild. -No evidence of dehydration. -Supportive care advised. -Isolation recommendations discussed. -ER precautions discussed. -Seek medical attention for worsening symptoms. Relevant Medications oseltamivir (Tamiflu) 75 MG capsule Other Visit Diagnoses Influenza Relevant Medications oseltamivir (Tamiflu) 75 MG capsule -No evidence of acute disease process. Suspect viral infection, likely Flu(given son is positive). Symptoms mild. -Will treat with [place] Flu. -ER precautions discussed. -Seek medical attention for worsening symptoms. ICarissa, am serving as a scribe to document services personally performed by Dr. StephanieBillings, based on the patient's response to questions by provider and providers statements to me. documented in this encounter Miscellaneous Notes * Assessment & Plan Note - Carissa Orellana - 02/26/2024 2:24 PM ESTAssociated Problem(s): Viral upper respiratory infection COVID, Flu and Strep negative. Pt presented with her two kids, one kid tested positive for COVID and the other tested positive for Flu. At the same visit. -Prescribed oseltamivir (Tamiflu) 75 MG capsule -No evidence of respiratory distress. Symptoms mild. -No evidence of dehydration. -Supportive care advised. -Isolation recommendations discussed. -ER precautions discussed. -Seek medical attention for worsening symptoms. documented in this encounter Plan of Treatment Upcoming Encounters Date Type Department Care Team (Late st Contact Info) Description 04/23/2024 3:30 PM EDT Telemedicine [facility] MEDICINE [address] [place] [address] Mayito Acuña PharmD [address] [place] [address] 07/30/2024 3:00 PM EDT Office Visit [facility] CHC ADULT DENTAL [address] [place] [address] Demario Bocanegra documented as of this encounter Goals Goal Patient Goal Type Associated Problems Recent Progress Patient-Stated? Author Blood Pressure < 140/90 Blood Pressure 97/65( 025 9:43 AM EST) No Mayito Acuña PharmD Hemoglobin A1c < 7 Result Component 6.1( 4 10:46 AM EST) No Mayito Acuña PharmD documented as of this encounter Procedures Procedure Name Priority Date/Time Associated Diagnosis Comments POCT INFLUENZA B (ID NOW RAPID MOLECULAR) Routine 02/26/2024 2:42 PM EST Viral upper respiratory infection POCT INFLUENZA A (ID NOW RAPID MOLECULAR) Routine 02/26/2024 2:42 PM EST Viral upper respiratory infection POC SEBASTIAN ID NOW STREP A Routine 02/26/2024 2:42 PM EST Viral upper respiratory infection POCT RAPID COVID ANTIGEN Routine 02/26/2024 2:42 PM EST Viral upper respiratory infection documented in this encounter Results * POCT Rapid Strep A SEBASTIAN ID NOW (02/26/2024 2:42 PM EST) Rapid Strep A Screen Negative Negative, None Detected Swab 02/26/2024 2:42 PM EST us Sonali Tellez MD POINT OF CARE TEST ENTER/E DIT ORDERABLES Final Result * Influenza B (ID NOW Rapid Molecular) (02/26/2024 2:42 PM EST) Pathologist [facility] Influenza B Negative Negative, Indeterminate [facility] Swab 02/26/2024 2:42 PM EST us Sonali Tellez MD POINT OF CARE TEST ENTER/E DIT ORDERABLES Final Result Performing Organization Address [facility] Co de Phone Number [facility] [address] [place] [phone] * Influenza A (ID NOW Rapid Molecular) (02/26/2024 2:42 PM EST) [facility] Influenza A Negative Negative, Indeterminate [facility] Swab 02/26/2024 2:42 PM EST us Sonali Tellez MD POINT OF CARE TEST ENTER/E DIT ORDERABLES Final Result Performing Organization Address [facility] Co de Phone Number [facility] [address] [place] [phone] * POCT Rapid COVID Ag (02/26/2024 2:42 PM EST) Rapid COVID Ag Negative [facility] Swab 02/26/2024 2:42 PM EST us Sonali Tellez MD POINT OF CARE TEST ENTER/E DIT ORDERABLES Final Result [facility] [address] [place] [address] [phone] documented in this encounter Visit Diagnoses Diagnosis Viral upper respiratory infection- Primary Acute upper respiratory infections of unspecified site Influenza Influenza with other respiratory manifestations documented in this encounter Additional Health Concerns Assessment Noted Time PHQ-9 Depression Total Score: 11 024 9:48 AM EDT documented as of this encounter Care Teams Access Liaison Relationship Specialty Start Date End Date Cinthya Ray MD [address] [place] [address] PCP - General Family Medicine 10/23/11 Mayito Acuña, PharmD [address] [place] [address] Pharmacist Internal Medicine 03/07/23 documented as of this encounter
--- OUTSIDE RECORDS SUMMARY | 2024-03-09 15:31 | XMS_ITS | Encounter Summary ---
Author Organization [email or web address] Address [address] [facility] 7 [place] [address] Care Team Providers Care Roundsman Name Role Phone Cinthya Ray MD Primary Care Provider [phone] Mayito Acuña PharmD Unavailable [phone] Reason for Visit * Reason Comments Sore Throat Encounter Details Date Type Department Care Team ([facility] st Contact Info) Description 03/02/2024 10:00 AM EST Office Visit [facility] [address] [place] [phone] Sonali Tellez MD [address] [place], [place] [phone] Cough in adult patient Social History Tobacco Use Types Packs/Day Years [...] the past 12 months, has t he [employer], gas, oil or water [employer] threatened to shut off services in your [...] 19 03/02/2024 9:43 AM EST Oxygen Saturation - - Inhaled Oxygen Concentration - - Weight 81.2 kg (179 lb) 03/02/2024 9:43 AM EST Height 157.5 cm (5' 2 ) 03/02/2024 9:43 AM EST Body Mass Index 32.74 03/02/2024 9:43 AM EST documented in this encounter Progress Notes * Nancy Guzmán MA - 03/02/2024 10:00 AM EST Subjective History was provided by the patient. Sonali Rosa is a 34 y.o. female who presents for evaluation of symptoms of a URI. Her two sons were sick, one with Covid and one with Flu, and her niece had RSV. Symptoms include cough, fever, chills, congestion, and ear pain. Onset of symptoms was 6 days ago, unchanged since that time.Associated negative symptoms include recent travel. Evaluation to date: seen previously and thoughtto have a viral URI Seen in ER on February 29, 2024. Respiratory Panel, Covid, and Flu were all negative . Treatment to date: cough suppressants Objective Vitals: 03/02/24 0943 BP: 97/65 BP Location: Left arm Patient Position: Sitting BP Cuff Size: Adult Pulse: 104 Resp: 19 Temp: 99.8 ??F (37.7 ??C) TempSrc: Oral Weight: 179 lb (81.2 kg) Height: 5' 2 (1.575 m) Physical Exam Constitutional: Appearance: Normal appearance. HENT: Right Ear: A middle ear effusion (With no infection) is present. Cardiovascular: Rate and Rhythm: Normal rate and regular rhythm. Heart sounds: Normal heart sounds. Pulmonary: Effort: Pulmonary effort is normal. Breath sounds: Normal breath sounds. Abdominal: Tenderness: There is no abdominal tenderness. Musculoskeletal: Cervical back: Normal range of motion and neck supple. Neurological: General: No focal deficit present. Mental Status: She is alert. Psychiatric: Behavior: Behavior normal. Office Visit on 03/02/2024 Component Date Value Ref Range Status Rapid Strep A Screen 03/02/2024 Negative Negative, None Detected Final Rapid COVID Ag 03/02/2024 Negative Final Influenza B 03/02/2024 Negative Negative, Indeterminate Final Influenza A 03/02/2024 Negative Negative, Indeterminate Final Problem List Items Addressed This Visit Cough in adult patient Relevant Orders POCT rapid strep A manually resulted (Completed) POCT Rapid Covid-19 BinaxNOW (Completed) POCT Rapid Influenza B SEBASTIAN ID NOW (Completed) POCT Rapid Influenza A SEBASTIAN ID NOW (Completed) -No evidence of respiratory distress. Symptoms mild. -No evidence of dehydration. -Supportive care advised. -Isolation recommendations discussed. -ER precautions discussed. -Seek medical attention for worsening symptoms. INancy, am serving as a scribe to document services personally performed by Dr. Sonali Tellez, based on the patient's response to questions by provider and providers statements to me. documented in this encounter Plan of Treatment Upcoming Encounters Date Type Department Care Team (Late st Contact Info) Description 04/23/2024 3:30 PM EDT Telemedicine [facility] MEDICINE [address] [place] [address] Mayito Acuña PharmD [address] [place] [address] 07/30/2024 3:00 PM EDT Office Visit [facility] ADULT DENTAL [address] [place] [address] Demario Bocanegra documented as of this encounter Goals Goal Patient Goal Type Associated Problems Recent Progress Patient-Stated? Author Blood Pressure < 140/90 Blood Pressure 97/65( 025 9:43 AM EST) No Mayito Acuña, Citlali Hemoglobin A1c < 7 Result Component 6.1( 10:46 AM EST) No Mayito Acuña PharmD documented as of this encounter Procedures Procedure Name Priority Date/Time Associated Diagnosis Comments POCT INFLUENZA B (ID NOW RAPID MOLECULAR) Routine 03/02/2024 10:18 AM EST Cough in adult patient POCT INFLUENZA A (ID NOW RAPID MOLECULAR) Routine 03/02/2024 10:18 AM EST Cough in adult patient POCT RAPID COVID ANTIGEN Routine 03/02/2024 10:18 AM EST Cough in adult patient POCT RAPID STREP A Routine 03/02/2024 10 :18 AM EST Cough in adult patient documented in this encounter Results * POCT Rapid Influenza A SEBASTIAN ID NOW (03/02/2024 10:18 AM EST) Influenza A Negative Negative, Indeterminate [facility] Swab 03/02/2024 10:1 8 AM EST Sonali Tellez MD POINT OF CARE TEST ENTER/E DIT ORDERABLES Final Result [facility] [address] [place] [phone] [phone] * POCT Rapid Influenza B SEBASTIAN ID NOW (03/02/2024 10:18 AM EST) [facility] Influenza B Negative Negative, Indeterminate [facility] Swab 03/02/2024 10:1 8 AM EST Sonali Tellez MD POINT OF CARE TEST ENTER/E DIT ORDERABLES Final Result [facility] [address] [place] [phone] * POCT Rapid Covid-19 BinaxNOW (03/02/2024 10:18 AM EST) [facility] Rapid COVID Ag Negative Swab 03/02/2024 10:1 8 AM EST us Sonali Tellez MD POINT OF CARE TEST ENTER/E DIT ORDERABLES Final Result * POCT rapid strep A manually resulted (03/02/2024 10:18 AM EST) [facility] Rapid Strep A Screen Negative Negative, None Detected Swab 03/02/2024 10:1 8 AM EST us Sonali Tellez MD POINT OF CARE TEST ENTER/E DIT ORDERABLES Final Result documented in this encounter Visit Diagnoses Diagnosis Cough in adult patient documented in this encounter Additional Health Concerns Assessment Noted Time PHQ-9 Depression Total Score: 11 024 9:48 AM EDT documented as of this encounter Care Teams Roundsman Relationship Specialty Start Date End Date Cinthya Ray MD [address] [place] [address] PCP - General Family Medicine 10/23/11 Mayito Acuña, Citlali [address] [place] [address] Pharmacist Internal Medicine 03/07/23 documented as of this encounter
--- OUTSIDE RECORDS SUMMARY | 2024-03-09 15:31 | XMS_ITS | Encounter Summary ---
Author Organization [employer] Address [address] [place] [address] 7 [place] [address] Care Team Providers Care Patient Relations Liaison Name Role Phone Cinthya Ray MD Primary Care Provider [phone] Mayito Acuña PharmD Unavailable [phone] Reason for Visit * Reason Onset Date Comments callback request 12/30/2023 Encounter Details Date Type Department Care Team ([facility] st Contact Info) Description 12/30/2023 Telephone [facility] MEDICINE [address] [place], [place] [phone] Cinthya Ray MD [address] [place] [address] callback request Social History Tobacco Use Types Packs/Day Years [...] the past 12 months, has t he [employer] gas, oil or water [employer] threatened to shut off services in your [...] encounter Miscellaneous Notes * Telephone Encounter - Delores Power - 12/30/2023 4:01 PM EST Tc from pt returning call from [facility] to book an appointment for follow up Callback [phone] documented in this encounter Plan of Treatment Upcoming Encounters Date Type Department Care Team (Late st Contact Info) Description 04/23/2024 3:30 PM EDT Telemedicine [facility] MEDICINE [address] [place] [address] Mayito Acuña PharmD [address] [place] [address] 07/30/2024 3:00 PM EDT Office Visit [facility] CHC ADULT DENTAL [address] [place] [address] Demario Bocanegra documented as of this encounter Goals Goal Patient Goal Type Associated Problems Recent Progress Patient-Stated? Author Blood Pressure < 140/90 Blood Pressure 97/65( 025 9:43 AM EST) No Mayito AcuñaCitlali Hemoglobin A1c < 7 Result Component 6.1( 4 10:46 AM EST) No Mayito Acuña PharmD documented as of this encounter Visit Diagnoses Not on filedocumented in this encounter Additional Health Concerns Assessment Noted Time PHQ-9 Depression Total Score: 11 024 9:48 AM EDT documented as of this encounter Care Teams Patient Relations Liaison Relationship Specialty Start Date End Date Cinthya Ray MD [address] [place] [address] PCP - General Family Medicine 10/23/11 Mayito Acuña PharmD [address] [place] [phone] Pharmacist Internal Medicine 03/07/23 documented as of this encounter
--- OUTSIDE RECORDS SUMMARY | 2024-03-09 15:32 | XMS_ITS | Encounter Summary ---
Author Organization [employer] Address [address] [place] [address] 7 [place] [address] Care Team Providers Care Presser Automatic Name Role Phone Cinthya Ray MD Primary Care Provider [phone] Mayito Acuña PharmD Unavailable [phone] Reason for Visit * Reason Onset Date Comments Med Refill 11/02/2023 Encounter Details Date Type Department Care Team (Late st Contact Info) Description 11/02/2023 Refill [facility] MED & PEDS [address] [place], [place] [phone] Cinthya Ray MD [address] [place] [address] Type 2 diabetes mellitus with hyperglycemia, without long-term current use of insulin ([facility]) Social History Tobacco Use Types Packs/Day Years Used Date Smoking Tobacco: Never Passive Smoke Exposure: Never Smokeless Tobacco: Never Alcohol Use Standard Drinks/Week Comments Never 0 (1 standard drink = 0.6 oz pur e alcohol) Depression Answer Date Recorded Patient Health Questionnaire-9 [...] Info) Description 04/23/2024 3:30 PM EDT Telemedicine [facility] MEDICINE [address] [place] [address] Mayito Acuña, DyanD [address] [place] [address] 07/30/2024 3:00 PM EDT Office Visit [facility] CHC ADULT DENTAL [address] [place] [address] Demario Bocanegra documented as of this encounter Goals Goal Patient Goal Type Associated Problems Recent Progress Patient-Stated? Author Blood Pressure < 140/90 Blood Pressure 97/65( 025 9:43 AM EST) No Mayito Acuña, PharmD Hemoglobin A1c < 7 Result Component 6.1( 4 10:46 AM EST) No Mayito Acuña PharmD documented as of this encounter Visit Diagnoses Diagnosis Type 2 diabetes mellitus with hyperglycemia, without long-term current use of insulin ([facility]) documented in this encounter Additional Health Concerns Assessment Noted Time PHQ-9 Depression Total Score: 11 024 9:48 AM EDT documented as of this encounter Care Teams Presser Automatic Relationship Specialty Start Date End Date Cinthya Ray MD [address] [place] [address] PCP - General Family Medicine 10/23/11 Mayito Acuña, Citlali [address] [place] [address] Pharmacist Internal Medicine 03/07/23 documented as of this encounter
--- OUTSIDE RECORDS SUMMARY | 2024-03-09 15:32 | XMS_ITS | Encounter Summary ---
Author Organization [facility] Address [address] [place] [address] 7 [place] [address] Care Team Providers Care Tacking Machine Operator Name Role Phone Cinthya Ray MD Primary Care Provider [phone] Mayito Acuña PharmD Unavailable [phone] Reason for Visit * Reason Onset Date Comments Med Refill 11/02/2023 Encounter Details Date Type Department Care Team (Late st Contact Info) Description 11/02/2023 Refill [facility] MEDICINE [address] [place], [place] [phone] Cinthya Ray MD [address] [place], [place] [phone] Social History Tobacco Use Types Packs/Day Years [...] Telephone Encounter - Doreen Mosqueda RN - 11/11/2023 9:32 AM EDT Triage call Pt reports that blood sugars have been up and down for last week and a half and that always indicates urinary tract infection. Pt urinary sx are burning with urination, odor to urine and low back pain as well as abdominal discomfort. Pt is offered apt in office this morning but unableto make. Pt will come to [facility] today open till 8pm. Pt reports drinking adequate liquids. Insurance is verified as active. Protocol Used: Urinary Symptoms (Adult) Protocol-Based Disposition: See in Office or Video Visit Today Video visit not offered Positive Triage Questions: * Side (flank) or lower back pain present * Bad or foul-smelling urine * Urinating more frequently than usual (i.e., frequency) OR new-onset of the feeling of an urgent need to urinate (i.e., urgency) * All higher-acuity triage questions were negative Care Advice Discussed: * Reasons To Call Back - Fever occurs - Pain or burning with urination - Unable to urinate and bladder feels full - You become worse ----- Message ----- From: Sonali Gill Sent: 11/10/2023 5:32 PM EDT To: [facility] Front Office Subject: Appointment Request Appointment Request From: Sonali Rosa With Provider: Cinthya Ray MD [[facility]] Preferred Date Range: 11/11/2023 - 11/13/2023 Preferred Times: Any Time Reason for visit: New Problem Visit Comments: Possible uti, getting pain in my lower abdomen, my ribs both sides, itching and irritated like pin and needle stabbing me in my private area. documented in this encounter Plan of Treatment Upcoming Encounters Date Type Department Care Team (Late st Contact Info) Description 04/23/2024 3:30 PM EDT Telemedicine [facility] MEDICINE [address] [place] [address] Mayito Acuña PharmD [address] [place] [address] 07/30/2024 3:00 PM EDT Office Visit [facility] ADULT DENTAL [address] [place] [address] Demario Bocanegra documented as of this encounter [...] documented as of this encounter Care Teams Tacking Machine Operator Relationship Specialty Start Date End Date Cinthya Ray MD [address] [place] [address] PCP - General Family Medicine 10/23/11 Mayito Acuña PharmD [address] [place] [address] Pharmacist Internal Medicine 03/07/23 documented as of this encounter
--- OUTSIDE RECORDS SUMMARY | 2024-03-09 15:32 | XMS_ITS | Encounter Summary ---
Author Organization [employer] Address [address] [place] [address] 7 [place] [address] Care Team Providers Care Cafeteria Cook Name Role Phone Cinthya Ray MD Primary Care Provider [phone] Mayito Acuña PharmD Unavailable [phone] Reason for Visit * Reason Onset Date Comments Referral 02/10/2024 Encounter Details Date Type Department Care Team ([facility] st Contact Info) Description 02/10/2024 Telephone [facility] [address] [place], [place] [phone] Cinthya Ray MD [address] [place] [address] Referral Social History Tobacco Use Types Packs/Day Years [...] encounter Miscellaneous Notes * Telephone Encounter - Hilda Diaz RN - 02/18/2024 3:02 PM EST TC placed to pt who called in a few weeks back requesting a referral to endocrinology to have documentation filled out for the DMV. Pt confirms that due to her being a Type 2 Diabetic she needs to have clearance done by an bio medical technician so she is safe to drive. Pt informed that this information will be sent to PCP for review. * Telephone Encounter - Tien Rosa - 02/18/2024 2:40 PM EST Tc from pt calling in regards to message prior stating she missed call but is requesting call back. * Telephone Encounter - Hilda Diaz RN - 02/12/2024 1:39 PM EST TC placed to pt and LVM to call back the office * Telephone Encounter - Binta Roland - 02/10/2024 11:40 AM EST Patient walked in requesting referral to bio medical technician. 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 documented in this encounter Plan of Treatment Upcoming Encounters Date Type Department Care Team (Late st Contact Info) Description 04/23/2024 3:30 PM EDT Telemedicine [facility] [address] [place] [address] Mayito Acuña PharmD [address] [place] [address] 07/30/2024 3:00 PM EDT Office Visit [facility] ADULT DENTAL [address] [place] [address] Demario Bocanegra documented as of this encounter [...] documented as of this encounter Care Teams Cafeteria Cook Relationship Specialty Start Date End Date Cinthya Ray MD [address] [place] [address] PCP - General Family Medicine 10/23/11 Mayito Acuña PharmD [address] [place] [phone] Pharmacist Internal Medicine 03/07/23 documented as of this encounter
--- OUTSIDE RECORDS SUMMARY | 2024-03-09 15:32 | XMS_ITS | Encounter Summary ---
Author Organization [employer] [facility] Address [address] [place] [address] 7 [place] [address] Care Team Providers Care Head Waiter/Waitress Name Role Phone Cinthya Ray MD Primary Care Provider [phone] Mayito Acuña PharmD Unavailable [phone] Encounter Details Date Type Department Care Team (Late Contact Info) Description 06/13/2022 Orders Only [facility] [address] [place] [address] Jerrica Girard FNP Social History Tobacco Use Types Packs/Day Years Used Date Smoking Tobacco: Never Passive Smoke Exposure: Never Smokeless Tobacco: Never Alcohol Use Standard Drinks/Week Comments Never 0 (1 standard drink = 0.6 oz pur e alcohol) PHQ-2 Answer Date Recorded Patient Health Questionnaire-2 [...] suspected to have Coronavirus/COVID-19? No / Unsure 06/12/2022 9:20 AM EDT documented as of this encounter Plan of Treatment Upcoming Encounters Date Type Department Care Team (Late Contact Info) Description 04/23/2024 3:30 PM EDT Telemedicine [facility] MEDICINE [address] [place] [address] Mayito Acuña, PharmD [address] [place] [address] 07/30/2024 3:00 PM EDT Office Visit [facility] ADULT DENTAL [address] [place] [address] Demario Bocanegra documented as of this encounter Visit Diagnoses Not on filedocumented in this encounter Care Teams Head Waiter/Waitress Relationship Specialty Start Date End Date Cinthya Ray MD [address] [place] [address] PCP - General Family Medicine 10/23/11 Mayito Acuña, PharmD [address] [place] [address] Pharmacist Internal Medicine 03/07/23 documented as of this encounter
--- OUTSIDE RECORDS SUMMARY | 2024-03-09 15:32 | XMS_ITS | Encounter Summary ---
Author Organization [employer] Address [address] [facility] 7 [place] [address] Care Team Providers Care Orthopedic Cast Specialist Name Role Phone Cinthya Ray MD Primary Care Provider [phone] Mayito Acuña PharmD Unavailable Encounter Details Date Type Department Care Team ([facility] st Contact Info) Description 09/15/2023 Orders Only [facility] MEDICINE [address] [place], [place] [phone] Cinthya Ray MD [address] [place], [place] [phone] Type 2 diabetes mellitus with hyperglycemia, without long-term current use of insulin ([facility]) Social History Tobacco Use Types Packs/Day Years Used Date Smoking Tobacco: Never Passive Smoke Exposure: Never Smokeless Tobacco: Never Alcohol Use Standard Drinks/Week Comments Never 0 (1 standard drink = 0.6 oz pur e alcohol) Depression Answer Date Recorded Patient Health Questionnaire-9 Score 0 09/10/2023 Patient Health Questionnaire-9 Score 0 09/10/2023 Last PHQ-9: Questionnaire Data Not on file 0 09/10/2023 Housing Stability Answer Date Recorded What is [...] Answer Date Recorded Patient Health Questionnaire-2 Score 0 09/10/2023 Comments Unknown Sex and Gender Information Value Date Recorded Sex Assigned at Female 12/10/2021 10:14 AM EDT Legal Sex Female 10:14 AM EDT Gender Identity Female 12/10/2021 10:14 AM EDT Sexual Orientation Straight 12/10/2021 10 :14 AM EDT documented as of this encounter Plan of Treatment Upcoming Encounters Date Type Department Care Team (Late st Contact Info) Description 04/23/2024 3:30 PM EDT Telemedicine [facility] MEDICINE [address] [place] [address] Mayito Acuña PharmD [address] [place] [address] 07/30/2024 3:00 PM EDT Office Visit [facility] CHC ADULT DENTAL [address] [place] [address] Demario Bocanegra documented as of this encounter [...] hyperglycemia, without long-term current use of insulin ([facility]) documented in this encounter Additional Health Concerns Assessment Noted Time PHQ-9 Depression Total Score: 0 09/10/19 24 9:01 AM EDT documented as of this encounter Care Teams Orthopedic Cast Specialist Relationship Specialty Start Date End Date Cinthya Ray MD [address] [place] [address] PCP - General Family Medicine 10/23/11 Mayito Acuña, DyanD [address] [place] [address] Pharmacist Internal Medicine 03/07/23 documented as of this encounter
--- OUTSIDE RECORDS SUMMARY | 2024-03-09 15:32 | XMS_ITS | Encounter Summary ---
Author Organization [employer] [facility] Address [address] [place] [address] [facility] [place] [address] Care Team Providers Care Exam Proctor Name Role Phone Cinthya Ray MD Primary Care Provider [phone] Mayito Acuña PharmD Unavailable [phone] Reason for Referral * Consultation (Routine) - Authorized Specialty Diagnoses / Procedures Referred By Ramya waller Referred To Contact Orthopaedic Surgery Diagnoses Chronic left shoulder pain Cinthya Ray MD [address] [place] [address] Phone: tel: fax: [facility] [address] [place] [address] Phone: tel: Referral ID Status Reason Start Date Expiration Date Visits Requested Visits Authorized [id number] Authorized Specialty Services Required 02/04/2025 6 6 Encounter Details Date Type Department Care Team (Late st Contact Info) Description 02/05/2024 Orders Only [facility] MEDICINE [address] [place] [address] Cinthya Ray MD [address] [place] [address] [phone] Chronic left shoulder pain (Primary Dx) Social History Tobacco Use Types [...] Description 04/23/2024 3:30 PM EDT Telemedicine [facility] MEDICINE [address] [place] [address] Mayito Acuña, PharmD [address] [place] [address] 07/30/2024 3:00 PM EDT Office Visit [facility] CHC ADULT DENTAL [address] [place] [address] Demario Bocanegra Scheduled Referrals Name Type Priority Associated Diagnoses Order Schedule Referral to Orthopaedic Surgery Outpatient Referral Routine Chronic left shoulder pain Expected: 02/05/2024 (Approximate), Expires: 02/04/2025 documented as of this encounter Goals Goal Patient Goal Type Associated Problems Recent Progress Patient-Stated? Author Blood Pressure < 140/90 Blood Pressure 97/65( 025 9:43 AM EST) No Mayito Acuña PharmD Hemoglobin A1c < 7 Result Component 6.1( 4 10:46 AM EST) No Mayito Acuña PharmD documented as of this encounter Visit Diagnoses Diagnosis Chronic left shoulder pain- Primary Pain in joint, shoulder region documented in this encounter Additional Health Concerns Assessment Noted Time PHQ-9 Depression Total Score: 11 024 9:48 AM EDT documented as of this encounter Care Teams Exam Proctor Relationship Specialty Start Date End Date Cinthya Ray MD [address] [place] [address] PCP - General Family Medicine 10/23/11 Mayito Acuña PharmD [address] [place] [address] Pharmacist Internal Medicine 03/07/23 documented as of this encounter
--- OUTSIDE RECORDS SUMMARY | 2024-03-09 15:32 | XMS_ITS | Clinical Summary ---
Author Organization [facility] Address [address] [place] [address] Phone Care Team Providers Care Cage Operator Name Role Phone Unavailable Primary Care Provider Unavailabl e Allergies No known active allergies Encounters Date Type Department Care Team Description 02/29/2024 2:07 AM EST - 02/29/2024 3:08 AM EST Emergency [facility] Emergency [address] [place] [address] Viral syndrome (Primary Dx) Discharge Disposition: Home or Self Care from Last 3 Months Medical History Medical History Date Comments Diabetes mellitus (CMS/HCC) Social History Tobacco Use Types Packs/Day Years Used Date Smoking Tobacco: Never Assessed Sex and Gender Information Value Date Recorded Sex Assigned at Female 02/29/2024 2:10 AM EST Gender Identity Not on file Sexual Orientation Not on file Job Start Date Occupation Industry Not on file Not on file Not on file Obstetrics History Last Filed Vital Signs Vital Sign Reading Time Taken Comments Blood Pressure 110/73 02/29/2024 1:36 AM EST Pulse 115 02/29/2024 2:43 AM EST Temperature 38 ??C (100.4 ??F) 02/29/2024 3:01 AM EST Respiratory Rate 19 02/29/2024 1:36 AM EST Oxygen Saturation 100% 02/29/2024 2:43 AM EST Inhaled Oxygen Concentration - - Weight 82.6 kg (182 lb) 02/29/2024 1:36 AM EST Height 157.5 cm (5' 2 ) 02/29/2024 1:36 AM EST Body Mass Index 33.29 02/29/2024 1:36 AM EST Plan of Treatment Health Maintenance Due Date Last Done Comments Diabetes: Annual GFR (Glomerular Filtration Rate) 1992 Diabetes: Annual Foot Exam 02/26/2002 Diabetes: Annual Retina Eye Exam 02/26/2002 Cervical Cancer Screening: Pap Smear 02/26/2013 Cholesterol Screening (Lipid Panel) 01/13/2022 Social Influencers of Health Screening 01/13/2022 COVID-19 Vaccine ( season) 2023 02/22/2021, 07/01/2020, 06/03/2020 Influenza Vaccine (#1) 2023 8, 04/10/2017, 10/24/2014, Additional history exists Diabetes: Annual Urine Albumin-Creatinine Ratio (uACR) 02/29/2024 Diabetes: Blood Sugar Control Test (HGBA1C) 07/26/2024 01/26/2024 Depression Screening 09/28/2024 09/29/2023 DTaP,Tdap,and Td Vaccines (9 - Td or Tdap) 08/28/2025 08/29/2015, 01/06/2012, 09/17/2005, Additional history exists HIB Vaccines Completed 05/14/1993, 10/1992, 1992, Additional history exists Hepatitis B Vaccines Completed 12/22/1995, 06/14/1994, 10/19/1993 IPV Vaccines Completed 05/12/1997, 10/1993, 1992, Additional history exists Meningococcal ACWY Vaccine Completed 12/14/2008 MMR Vaccines Completed 04/10/2014, 03/1997, 05/14/1993 Hepatitis A Vaccines Completed 03/14/2023, 11/10/2017, 01/06/2012 Pneumococcal Vaccine: Pediatrics (0 to 5 Years) and At-Risk Patients (6 to 64 Years) Completed 04/08/2023, 04/10/2017 HIV Screening Completed 11/26/2023 Hepatitis C Screening Completed 11/26/2023 HPV Vaccines Aged Out No longer eligi ble based on patient's age to complete this topic RSV Immunization Patients Under 20 months Aged Out No longer eligible based on patient's age to complete this topic Varicella Vaccines Aged Out No longer eligible based on patient's age to complete this topic Procedures Procedure Name Priority Date/Time Associated Diagnosis Comments RESPIRATORY VIRUS PANEL MOLECULAR STUDY STAT 02/29/2024 1:27 AM EST from Last 3 Months Results * Respiratory virus panel molecular study (02/29/2024 1:27 AM EST) Pathologist [facility] Adenovirus Detection by PCR Not Detected Not Detected LAB MICROBIOLOGY METHOD 02/29/2024 3:00 AM [facility] Influenza A PCR Not Detected Not Detected LAB MICROBIOLOGY METHOD 02/29/2024 3:00 AM [facility] Influenza B PCR Not Detected Not Detected LAB MICROBIOLOGY METHOD 02/29/2024 3:00 AM [facility] Coronavirus 229E Not Detected Not Detected LAB MICROBIOLOGY METHOD 02/29/2024 3:00 AM [facility] Coronavirus HKU1 Not Detected Not Detected LAB MICROBIOLOGY METHOD 02/29/2024 3:00 AM [facility] Coronavirus OC43 Not Detected Not Detected LAB MICROBIOLOGY METHOD 02/29/2024 3:00 AM [facility] Coronavirus NL63 Not Detected Not Detected LAB MICROBIOLOGY METHOD 02/29/2024 3:00 AM [facility] Parainfluenza Virus 1 Not Detected Not Detected LAB MICROBIOLOGY METHOD 02/29/2024 3:00 AM [facility] Parainfluenza Virus 2 Not Detected Not Detected LAB MICROBIOLOGY METHOD 02/29/2024 3:00 AM [facility] Parainfluenza Virus 3 Not Detected Not Detected LAB MICROBIOLOGY METHOD 02/29/2024 3:00 AM [facility] Parainfluenza Virus 4 Not Detected Not Detected LAB MICROBIOLOGY METHOD 02/29/2024 3:00 AM [facility] RSV PCR Not Detected Not Detected LAB MICROBIOLOGY METHOD 02/29/2024 3:00 AM [facility] Human Metapneumovirus A and B Not Detected Not Detected LAB MICROBIOLOGY METHOD 02/29/2024 3:00 AM [facility] Rhinovirus/Entero virus Not Detected Not Detected LAB MICROBIOLOGY METHOD 02/29/2024 3:00 AM [facility] Bordetella pertussis Not Detected Not Detected LAB MICROBIOLOGY METHOD 02/29/2024 3:00 AM EST [facility] Bordetella parapertussis Not Detected Not Detected LAB MICROBIOLOGY METHOD 02/29/2024 3:00 AM [facility] Mycoplasma pneumo by PCR Not Detected Not Detected LAB MICROBIOLOGY METHOD 02/29/2024 3:00 AM EST [facility] Chlamydia pneumoniae Not Detected Not Detected LAB MICROBIOLOGY METHOD 02/29/2024 3:00 AM [facility] SARS COV-2 Not Detected Not Detected LAB MICROBIOLOGY METHOD 02/29/2024 3:00 AM [facility] Swab Both anterior nares / Unknown Non-blood Collection / Unknown 02/29/2024 1:27 AM EST 02/29/2024 1:46 AM EST [facility] - 02/29/2024 3:00 AM EST Testing was performed using the Hometapper Respiratory Pathogen PCR Assay. All results must be correlated with the clinical findings. Results should not be used as the sole basis for diagnosis. False Negative results may occur from the presence of sequence variants in the region targeted by the assay or the presence of inhibitors. Results may be affected by concurrent antiviral/antimicrobial therapy or levels of organisms that are below the limit of detection. Carlos Vlaero MD LAB MICROBIOLOGY - G ENERAL ORDERABLES [facility] [address] [place] [address], from Last 3 Months
--- OUTSIDE RECORDS SUMMARY | 2024-03-09 15:32 | XMS_ITS | Encounter Summary ---
Author Organization [employer] Address [address] [facility] [address] [place] [address] Care Team Providers Care Job Boss Name Role Phone Cinthya Ray MD Primary Care Provider [phone] Mayito Acuña PharmD Unavailable [phone] Encounter Details Date Type Department Care Team (Latest Contact Info) Description 02/13/2024 Travel Social History Tobacco Use Types Packs/Day Years [...] is your housing situation today? I have trve villalba 06/10/[address] you [...] Info) Description 04/23/2024 3:30 PM EDT Telemedicine [facility] MEDICINE [address] [place] [address] Mayito Acuña PharmD [address] [place] [address] 07/30/2024 3:00 PM EDT Office Visit [facility] CHC ADULT DENTAL [address] [place] [address] Demario Bocanegra documented as of this encounter [...] documented as of this encounter Care Teams Job Boss Relationship Specialty Start Date End Date Cinthya Ray MD [address] [place] [address] PCP - General Family Medicine 10/23/11 Mayito Acuña PharmD [address] [place] [address] Pharmacist Internal Medicine 03/07/23 documented as of this encounter
--- OUTSIDE RECORDS SUMMARY | 2024-03-09 15:32 | XMS_ITS | Encounter Summary ---
Author Organization [employer] Address [address] [facility] 7t [place] [address] Care Team Providers Care Legal Director Name Role Phone Cinthya Ray MD Primary Care Provider [phone] Mayito Acuña PharmD Unavailable [phone] Encounter Details Date Type Department Care Team ([facility] st Contact Info) Description 08/05/2023 Orders Only [facility] CHC MED & PEDS [address] [place], [place] [phone] Izzy Olvera FNP [address] [place] [address] Social History Tobacco Use Types Packs/Day Years Used Date Smoking Tobacco: Never Passive Smoke Exposure: Never Smokeless Tobacco: Never Alcohol Use Standard Drinks/Week Comments Never 0 (1 standard drink = 0.6 oz pur e alcohol) Depression Answer Date Recorded Patient Health Questionnaire-9 Score 0 06/10/2023 Patient Health Questionnaire-9 Score 0 06/10/2023 Last PHQ-9: Questionnaire Data Not on file 0 06/10/2023 Housing Stability Answer Date Recorded What is [...] Date Recorded Patient Health Questionnaire-2 Score 0 06/10/2023 Comments Unknown Sex and Gender Information Value Date Recorded Sex Assigned at Female 12/10/2021 10:14 AM EDT Legal Sex Female 10:14 AM EDT Gender Identity Female 12/10/2021 10:14 AM EDT Sexual Orientation Straight 12/10/2021 10 :14 AM EDT documented as of this encounter Plan of Treatment Upcoming Encounters Date Type Department Care Team (Late st Contact Info) Description 04/23/2024 3:30 PM EDT Telemedicine [facility] MEDICINE [address] [place] [address] Mayito Acuña PharmD [address] [place] [address] 07/30/2024 3:00 PM EDT Office Visit [facility] CHC ADULT DENTAL [address] [place] [address] Demario Bocanegra documented as of this encounter [...] Noted Time PHQ-9 Depression Total Score: 0 06/10/19 24 2:55 PM EDT documented as of this encounter Care Teams Legal Director Relationship Specialty Start Date End Date Cinthya Ray MD [address] [place] [address] PCP - General Family Medicine 10/23/11 Mayito Acuña PharmD [address] [place] [address] Pharmacist Internal Medicine 03/07/23 documented as of this encounter
--- OUTSIDE RECORDS SUMMARY | 2024-03-09 15:32 | XMS_ITS | Encounter Summary ---
Author Organization [employer] [facility] Address [address] [place] [address] 7 [place] [address] Care Team Providers Care Physician Underwriter Name Role Phone Cinthya Ray MD Primary Care Provider [phone] Mayito Acuña PharmD Unavailable [phone] Reason for Visit * Reason Onset Date Comments Med Refill 08/06/2023 Encounter Details Date Type Department Care Team (Late st Contact Info) Description 08/06/2023 Refill [facility] MEDICINE [address] [place], [place] [phone] Cinthya Ray MD [address] [place], [place] [phone] Social History Tobacco Use Types Packs/Day Years [...] 04/23/2024 3:30 PM EDT Telemedicine [facility] MEDICINE [address] [place] [address] Mayito Acuña PharmD [address] [place] [address] 07/30/2024 3:00 PM EDT Office Visit [facility] CHC ADULT DENTAL [address] [place] [address] Demario Bocanegra documented as of this encounter [...] documented as of this encounter Care Teams Physician Underwriter Relationship Specialty Start Date End Date Cinthya Ray MD [address] [place] [address] PCP - General Family Medicine 10/23/11 Mayito Acuña, PharmD [address] [place] [address] Pharmacist Internal Medicine 03/07/23 documented as of this encounter
--- OUTSIDE RECORDS SUMMARY | 2024-03-09 15:32 | XMS_ITS | Encounter Summary ---
Author Organization [employer] Address [address] [place] [address] [place] [address] Care Team Providers Care [employer] Program Coordinator Name Role Phone Cinthya Ray MD Primary Care Provider [phone] Mayito Acuña PharmD Unavailable [phone] Reason for Visit * Reason Comments Filling Encounter Details Date Type Department Care Team ([facility] Contact Info) Description 02/20/2024 2:00 PM EST Office Visit [facility] ADULT DENTAL [address] [place] [address] Thompson Mcleod [address] [place] [address] Social History Tobacco Use Types Packs/Day Years [...] Sign Reading Time Taken Comments Blood Pressure 118/84 02/20/2024 2:26 PM EST Pulse - - Temperature - - Respiratory Rate - - Oxygen Saturation - - Inhaled Oxygen Concentration - - Weight - - Height - - Body Mass Index - - documented in this encounter Progress Notes * Thompson Mcleod - 02/20/2024 2:00 PM EST Dental procedures in this visit [id number] - RESIN-BASED COMPOSITE - 2 SURFACES, POSTERIOR 13 DO (Completed) Service provider: Thompson Mcleod Billing provider: Lisha Chapa DDS Patient ID: Sonali Rosa is a 33 y.o. female. Time Out: Date: 02/20/2024 Location: [facility] Tooth: #13 Procedure: Scientology Verified the above with patient, medical records assistant, and provider. Confirmed via patient's chart, intraorally and by radiographs. Tobacco Stripper: not applicable Composite baptism done on # [address] Thompson Mcleod Risk, benefits, and alternatives discussed with the patient. CONSENT FORM INITIALED & SIGNED BY THE PATIENT AND COUNTERSIGNED BY Dr. Thompson Mcleod Medical history: Reviewed in EHR Vitals: Blood pressure 118/84, last menstrual period 01/23/2024. Allergies: Reviewed in EHR Medications: Reviewed in EHR ASA 2 - No local anesthetics used - Existing baptism and recurrent decay removed - Matrix band and wedge used as needed - Desensitizer: Gluma - Etching done using 37% phosphoric acid. - talent agent applied. - Composite baptism done using Filtek body/flowable composite, shade A2 - Anatomy and margins adjusted - Proximal contact confirmed with floss. - Occlusion checked with articulating paper - Necessary reductions made. - Scientology smoothed and polished. - Post op instructions given Patient satisfied, left in stable condition Patient made aware possible post op sensitivity NV: recall Provider: Dr. Thompson Mcleod Mc Kay Machine Operator: Naima Olea Supervising dentist: Dr. Chapa * Lisha Chapa DDS - 02/20/2024 2:00 PM EST I have reviewed the documentation and dental procedures completed by the rendering provider, Thompson Mcleod DDS, and approve their chart entries for this visit. SHARLENE Stubbs DDS documented in this encounter Plan of Treatment Upcoming Encounters Date Type Department Care Team (Late st Contact Info) Description 04/23/2024 3:30 PM EDT Telemedicine [facility] MEDICINE [address] [place] [address] Mayito Acuña PharmD [address] [place] [address] 07/30/2024 3:00 PM EDT Office Visit [facility] CHC ADULT DENTAL [address] [place] [address] Demario Bocanegra documented as of this encounter Goals Goal Patient Goal Type Associated Problems Recent Progress Patient-Stated? Author Blood Pressure < 140/90 Blood Pressure 97/65( 025 9:43 AM EST) No Mayito Acuña PharmD Hemoglobin A1c < 7 Result Component 6.1( 4 10:46 AM EST) No Mayito Acuña PharmD documented as of this encounter Procedures Procedure Name Priority Date/Time Associated Diagnosis Comments 13 DO RESTORATIVE - RESIN-BASED COMPOSITE RESTORATIONS - DIRECT - RESIN-BASED COMPOSITE - TWO SURFACES, POSTERIOR Routine 02/20/2024 2:00 PM EST documented in this encounter Visit Diagnoses Not on filedocumented in this encounter Additional Health Concerns Assessment Noted Time PHQ-9 Depression Total Score: 11 024 9:48 AM EDT documented as of this encounter Care Teams [employer] Program Coordinator Relationship Specialty Start Date End Date Cinthya Ray MD [address] [place] [address] PCP - General Family Medicine 10/23/11 Mayito Acuña, Citlali [address] [place] [address] Pharmacist Internal Medicine 03/07/23 documented as of this encounter
--- OUTSIDE RECORDS SUMMARY | 2024-03-09 15:32 | XMS_ITS | Encounter Summary ---
Author Organization [employer] Address [address] [facility] 7 [place] [address] Care Team Providers Care Banquet Attendant Name Role Phone Cinthya Ray MD Primary Care Provider [phone] Mayito Acuña PharmD Unavailable [phone] Encounter Details Date Type Department Care Team ([facility] st Contact Info) Description 06/30/2023 Orders Only [facility] MEDICINE [address] [place], [place] [phone] Mayito Acuña, PharmD [address] [place], [place] [phone] Type 2 diabetes mellitus with hyperglycemia, with long-term current use of insulin ([facility]) (Primary Dx) Social History Tobacco Use Types [...] Info) Description 04/23/2024 3:30 PM EDT Telemedicine [facility] MEDICINE [address] [place] [address] Mayito Acuña PharmD [address] [place] [address] 07/30/2024 3:00 PM EDT Office Visit [facility] CHC ADULT DENTAL [address] [place] [address] Demario Bocanegra documented as of this encounter Goals Goal Patient Goal Type Associated Problems Recent Progress Patient-Stated? Author Blood Pressure < 140/90 Blood Pressure 97/65( 025 9:43 AM EST) No Mayito Acuña PharmD Hemoglobin A1c < 7 Result Component 6.1( 4 10:46 AM EST) No Mayito Acuña PharmD documented as of this encounter Procedures Procedure Name Priority Date/Time Associated Diagnosis Comments HEMATOXYLIN AND EOSIN STAIN Routine 06/30/2023 12:47 PM EDT Type 2 diabetes mellitus with hyperglycemia, with long-term current use of insulin ([facility]) documented in this encounter Results * Hematoxylin and Eosin Stain (06/30/2023 12:47 PM EDT) 06/30/2023 12:4 7 PM EDT 06/30/2023 1:27 PM EDT [facility] - 07/02/2023 9:30 AM EDT ----- ------- Name: Sonali Gill ?Age/Sex: 33/F ? : 1990 Unit#: [id number] ?? Attend Dr: Jose Figueroa MD ?Re06/30/23 ?Status: DEP SDC ? Location: HO.SSS ?Disch: ? ----- ------- SPEC : [id number] ? RECD: 06/30/23-7 ? STATUS: ??SOUT ? REQ NUM: [id number] ? MELANIA: 06/30/23-1247 ? SUBM DR: Jose Figueroa MD ? ENTERED: ??06/30/23- ?SP TYPE: Surgical ? OTHR DR: Cinthya Ray MD ? ORDERED: ??HE Stain/6, Gross Micro L4/5, IHC, Special st. 2/3, H. pylori, AB/PAS/3 ? Diagnosis ?? A. ??Duodenum, biopsy: ??Duodenal mucosa within normal limits. ? B ??Stomach, biopsy: ??Antral-type and oxyntic mucosa with mild chronic inactive ?? inflammation; no Helicobacter organisms seen. ? C. ??GE junction, biopsy: ?- Sen esophagus with background mild chronic active inflammation. ?- No dysplasia seen. ?- Squamous mucosa within normal limits. ? D. ??Esophagus, distal, biopsy: ??Squamous epithelium within normal limits; no inflammation ?? seen. ? E. ??Esophagus, proximal, biopsy: ??Squamous epithelium within normal limits; no ?? inflammation seen. ?Clinical History Pre-Op Dx: ??Dysphagia Post-Op Dx: Esophagitis, dysmotility, gastropathy ?Microscopic Description A-E. ??Microscopic sections examined. ??Intestinal metaplasia is seen (C) and no metaplastic changes are seen (A and B), supported by AB/PAS stains; no Helicobacter organisms are seen, supported by H. pylori immunostain (B). ? Material Received ?? A. Duodenum ?? B. Stomach ?? C. GE junction ?? D. Distal esophagus ?? E. Proximal esophagus ? Gross Description Received in five parts. Part A: ??Received in formalin labeled ?duodenum? are 3 hathaway-pink irregular tissue fragments ranging from 0.1-0.3 cm, submitted in toto in a cassette labeled A. ? CONTINUED ON NEXT PAGE ----- ------- Name: Sonali Gill ?Age/Sex: 33/F ? : 1990 Unit#: [id number] ?? Attend Dr: Jose Figueroa MD ?Re06/30/23 ?Status: DEP SDC ? Location: HO.SSS ?Disch: ? ----- ------- SPEC : [id number] ? RECD: 06/30/23 ? STATUS: ??SOUT ? REQ NUM: [id number] ? MELANIA: 06/30/23-1246 ? SUBM DR: Jose Figueroa MD ? ENTERED: ??06/30/23-1333 ?SP TYPE: Surgical ? OTHR DR: Cinthya Ray MD ? ORDERED: ??HE Stain/6, Gross Micro L4/5, IHC, Special st. 2/3, H. pylori, AB/PAS/3 ? Gross Description ?(Continued) Part B: ??Received in formalin labeled ?stomach? are 5 hathaway-pink irregular and rectangular tissue fragments ranging from 0.1 to 0.4 cm, submitted in toto in a cassette labeled B. Part C: ??Received in formalin labeled ?GE junction? are 3 hathaway-pink irregular tissue fragments ranging from less than 0.1 to 0.2 cm, submitted in toto in a cassette labeled C. Part D: ??Received in formalin labeled ?distal esophagus? are 4 hein- white irregular tissue fragments ranging from 0.1 to 0.2 cm, submitted in toto in a cassette labeled D. Part E: ??Received in formalin labeled ?proximal esophagus? are 4 pale, hein-white irregular tissue fragments ranging from 0.1-0.2 cm, submitted in toto in a cassette labeled E. ??CEDS Special studies ordered and performed: Immunostain for H. pylori on B; AB/PAS stains on A-C Copies To: ?? Jose Figueroa MD ?? [address] ?? [place] [address] ?? [phone] ?? Cinthya Ray MD ?? [address] [facility] ?? [place] [address] ?? ----- ------- Signed (signature on file) Esa Aguiar MD 07/02/23 0930 ? ----- ------- ? END OF REPORT ? us Generic External Data Provider LAB BLOOD ORDERAB LES Final Result [facility] [address] [place] [address] [phone] documented in this encounter Visit Diagnoses Diagnosis Type 2 diabetes mellitus with hyperglycemia, with long-term current use of insulin ([facility])- Primary documented in this encounter Additional Health Concerns Assessment Noted Time PHQ-9 Depression Total Score: 0 06/10/19 24 2:55 PM EDT documented as of this encounter Care Teams Banquet Attendant Relationship Specialty Start Date End Date Cinthya Ray MD [address] [place] [address] PCP - General Family Medicine 10/23/11 Mayito Acuña, Citlali [address] [place] [address] Pharmacist Internal Medicine 03/07/23 documented as of this encounter
--- OUTSIDE RECORDS SUMMARY | 2024-03-09 15:32 | XMS_ITS | Encounter Summary ---
Author Organization [employer] Address [address] [place] [address] Care Team Providers Care Casting Trucker Name Role Phone Unavailable Primary Care Provider Unavailabl e Reason for Visit * Reason Comments Flu Symptoms Sore throat, chills, cough. +sick contacts Encounter Details Date Type Department Care Team (Late st Contact Info) Description 02/29/2024 2:07 AM EST - 02/29/2024 3:08 AM EST Emergency Emergency [address] [place] [address] Viral syndrome (Primary Dx) Discharge Disposition: Home or Self Care Social History Tobacco Use Types Packs/Day Years Used Date Smoking Tobacco: Never Assessed Sex and Gender Information Value Date Recorded Sex Assigned at Female 02/29/2024 2:10 AM EST Gender Identity Not on file Sexual Orientation Not on file Job Start Date Occupation Industry Not on file Not on file Not on file documented as of this encounter Last Filed [...] Mass Index 33.29 02/29/2024 1:36 AM EST documented in this encounter Discharge Instructions * Discharge Instructions* KARINE Johnston - 02/29/2024 3:03 AM EST You were seen in the ER today for flulike symptoms. We did a test which did not show any evidence of COVID, flu, or RSV. This does not mean that you do not have another virus causing her symptoms. I believe it is likely that you do have a virus that is the cause of your symptoms. Please be sure to get plenty of rest and stay hydrated with fluids. If you develop a fever you may take Tylenol or ibuprofen. You may take Tylenol and ibuprofen in general for your aches and pains. You may also take wuyw-ydm-feeyhpo cold medications. Please be aware that many of them do contain Tylenol (acetaminophen) so please be sure to read the ingredients that you are not taking too much Tylenol. Please return to the ER if you experience any high fevers, sensation of throat closure or swelling in throat, shortness of breath, chest pain, or any other reason you see fit. It was a pleasure caring for you today in the emergency department. Please return to the emergency department if you begin to experience any new onset chest pain, shortness of breath, uncontrolled fevers, severe abdominal pain, loss of consciousness, uncontrolled vomiting, uncontrolled diarrhea, or for any other reason you feel is necessary. Please follow-up with your PCP about this visit. Examination and treatment you received in the emergency department has been rendered on an EMERGENCY basis only. It is not intended to be a substitute for or an effort to provide complete medical care. You should follow-up with your primary care provider. Please report to your physician any new or remaining problems, because it is impossible to recognize and treat all elements of injury or illness in a single emergency department visit. If you do not have a primary care provider or require a referral, a follow-up doctor site monitor for the emergency department will be provided in your discharge packet. In the event that you're unable to obtain a followup appointment in a timely fashion, OR you are not getting any better, OR you are getting worse, OR you develop any symptoms of concern, please return here immediately for further evaluation. The emergency department is open 24 hours a day, 7 days aweek. Your discharge report is based on information that was available when you were in the emergency department If you do not have a primary care provider, please contact one of the following to make arrangements to follow up. [facility] Kayley Sadiq Kayley Shahid * Attachments The following attachments cannot be sent through Care Everywhere. * Viral Infections (Irish) documented in this encounter Discharge Disposition Disposition Code Departure Means Destination Comment s Home or Self Care documented in this encounter Progress Notes * Mary Laughlin RN - 02/29/2024 1:38 AM EST Pt with sore throat last week. Seen by PCP and had negative swab. States she now has sore throat, cough, body aches, chills. Niece was positive for RSV, 2 children at home with covid and flu. * KARINE Johnston - 02/29/2024 1:20 AM EST Emergency Medicine Note Patient Name: Sonali Garcia Initial Evaluation: 02/29/2024 : 1990 Patient's PCP: No primary care provider on file. Emergency Physician: KARINE Johnston History of Present Illness Chief Complaint: Chief Complaint Patient presents with Flu Symptoms Sore throat, chills, cough. +sick contacts HPI: 34-year-old female patient otherwise healthy presenting to the ER today reporting flulike symptoms for the past few days. Patient reports sore throat, body aches, cough, fevers, chills. Reports she was seen at her PCP a few days ago and had a negative swab. She was recently exposed to RSV and now one of her kids has COVID and the other 1 has influenza. Denies any sensation of throat closure,difficulty breathing, shortness of breath. ROS: I have performed a ROS with the pertinent positives and negatives documented in the history ofpresent illness. Previous History Past Medical History: Diagnosis Date Diabetes mellitus (CMS/HCC) No past surgical history on file. No family history on file. has No Known Allergies. No current facility-administered medications on file prior to encounter. No current outpatient medications on file prior to encounter. Physical Exam Physical Exam Constitutional: General: She is not in acute distress. Appearance: She is normal weight. She is not ill-appearing, toxic-appearing or diaphoretic. Comments: Congested noted, dry audible cough noted HENT: Head: Normocephalic and atraumatic. Right Ear: Tympanic membrane normal. Left Ear: Tympanic membrane normal. Nose: Congestion and rhinorrhea present. Mouth/Throat: Mouth: Mucous membranes are moist. Pharynx: Oropharynx is clear. Posterior oropharyngeal erythema present. No oropharyngeal exudate. Comments: No evidence of peritonsillar abscess. Eyes: Extraocular Movements: Extraocular movements intact. Conjunctiva/sclera: Conjunctivae normal. Pupils: Pupils are equal, round, and reactive to light. Cardiovascular: Rate and Rhythm: Normal rate and regular rhythm. Pulmonary: Effort: Pulmonary effort is normal. No respiratory distress. Breath sounds: Normal breath sounds. No wheezing, rhonchi or rales. Abdominal: General: Abdomen is flat. Palpations: Abdomen is soft. Musculoskeletal: General: No swelling. Normal range of motion. Cervical back: No tenderness. Lymphadenopathy: Cervical: No cervical adenopathy. Skin: General: Skin is warm and dry. Coloration: Skin is not pale. Neurological: General: No focal deficit present. Mental Status: She is alert. Mental status is at baseline. Motor: No weakness. Gait: Gait normal. Psychiatric: Mood and Affect: Mood normal. Behavior: Behavior normal. Thought Content: Thought content normal. Judgment: Judgment normal. ED Triage Vitals [02/29/24 0136] Temp Heart Rate Resp BP (!) 38.6 ??C (101.5 ??F) (!) 130 19 110/73 SpO2 Temp Source Heart Rate Source Patient Position 97 % Oral Monitor Sitting BP Location FiO2 (%) Right arm -- Results Labs Reviewed RESPIRATORY VIRUS PANEL MOLECULAR STUDY - Normal Result Value Adenovirus Detection by PCR Not Detected Influenza A PCR Not Detected Influenza B PCR Not Detected Coronavirus 229E Not Detected Coronavirus HKU1 Not Detected Coronavirus OC43 Not Detected Coronavirus NL63 Not Detected Parainfluenza Virus 1 Not Detected Parainfluenza Virus 2 Not Detected Parainfluenza Virus 3 Not Detected Parainfluenza Virus 4 Not Detected RSV PCR Not Detected Human Metapneumovirus A and B Not Detected Rhinovirus/Enterovirus Not Detected Bordetella pertussis Not Detected Bordetella parapertussis Not Detected Mycoplasma pneumo by PCR Not Detected Chlamydia pneumoniae Not Detected SARS COV-2 Not Detected Narrative: Testing was performed using the [employer] Respiratory Pathogen PCR Assay. All results must [...] that are below the limit of detection. Abnormal Labs Reviewed - No abnormal labs to display No orders to display I have discussed the incidental/abnormal imaging and/or lab abnormalities with the patient and haveinstructed them the need for further evaluation and workup with their primary care doctor. I have provided the patient with a paper copy of the abnormality. The laboratory results, imaging results and other diagnostic exam results were reviewed in the EMR. EKG Interpretation Critical Care Time None ? Medical Decision Making Medications acetaminophen (TYLENOL) tablet 1,000 mg (1,000 mg oral Given 02/29/24 0147) sodium chloride 0.9 % bolus 1,000 mL (0 mL intravenous Stopped 02/29/24 0301) ketorolac (TORADOL) injection 15 mg (15 mg intravenous Given 02/29/24 0222) ondansetron (PF) (ZOFRAN) injection 4 mg (4 mg intravenous Given 02/29/24 0223) Medical Decision Making Differential diagnosis include but not limited to: Influenza COVID-19 RSV Pneumonia Bronchitis Enterovirus/rhinovirus Lyme disease Pharyngitis Other viral illness In short 34-year-old female here for flulike symptoms. On arrival patient's febrile at 101.5, tachycardic at 130. Given Tylenol in triage. Normotensive and 97% on room air, no acute distress. Nontoxic. Symptoms are consistent with a viral syndrome. Viral panel pending. No red flag symptoms handling secretions without difficulty no evidence of peritonsillar abscess. Will recheck vitals. Will also treat symptomatically with IV fluids, Zofran, Toradol. Anticipate discharge home. ED Course as of 02/29/24 0304 Sun Feb 29, 2024 0300 Respiratory virus panel molecular study Viral panel is back, shows no viruses detected. Based on patient's symptoms I believe patient wendy has a virus. Patient's fever and heart rate have improved, fevers is still 100.4 but patientis requesting to be discharged home at this time. Patient is reporting no other systemic symptoms, no productive cough, no shortness of breath, no chest pain, lung sounds are clear, low suspicion forpneumonia. Will discharge home with supportive care measures and strict return precautions. Patientagrees with plan. [ES] ED Course User Index [ES] KARINE Johnston Clinical Impressions as of 02/29/24 0304 Viral syndrome Procedures Procedures Diagnosis 1. Viral syndrome Disposition Discharge ED Prescriptions None Physician Attestation KARIEN Johnston 02/29/24 0253 KARINE Johnston 02/29/24 0304 Associated attestation - Carlos Valero MD - 03/01/2024 12:49 AM EST The PA has seen, evaluated, and treated the patient. I, Dr. Valero, have reviewed the record and agree with the documentation as written, except as noted. Carlos Valero MD documented in this encounter Plan of Treatment Not on file documented as of this encounter Procedures Procedure Name Priority Date/Time Associated Diagnosis Comments RESPIRATORY VIRUS PANEL MOLECULAR STUDY STAT 02/29/2024 1:27 AM EST documented in this encounter Results * Respiratory virus panel molecular study (02/29/2024 1:27 AM EST) Adenovirus Detection by PCR Not Detected Not Detected LAB MICROBIOLOGY METHOD 02/29/2024 3:00 AM [facility] Influenza A PCR Not Detected Not Detected LAB MICROBIOLOGY METHOD 02/29/2024 3:00 AM [facility] Influenza B PCR Not Detected Not Detected LAB MICROBIOLOGY METHOD 02/29/2024 3:00 AM [facility] Coronavirus 229E Not Detected Not Detected LAB MICROBIOLOGY METHOD 02/29/2024 3:00 AM [facility] Coronavirus HKU1 Not Detected Not Detected LAB MICROBIOLOGY METHOD 02/29/2024 3:00 AM [facility] Coronavirus OC43 Not Detected Not Detected LAB MICROBIOLOGY METHOD 02/29/2024 3:00 AM [facility] Coronavirus NL63 Not Detected Not Detected LAB MICROBIOLOGY METHOD 02/29/2024 3:00 AM [facility] Parainfluenza Virus 1 Not Detected Not Detected LAB MICROBIOLOGY METHOD 02/29/2024 3:00 AM [facility] Parainfluenza Virus 2 Not Detected Not Detected LAB MICROBIOLOGY METHOD 02/29/2024 3:00 AM [facility] Parainfluenza Virus 3 Not Detected Not Detected LAB MICROBIOLOGY METHOD 02/29/2024 3:00 AM [facility] Parainfluenza Virus 4 Not Detected Not Detected LAB MICROBIOLOGY METHOD 02/29/2024 3:00 AM [facility] RSV PCR Not Detected Not Detected LAB MICROBIOLOGY METHOD 02/29/2024 3:00 AM [facility] Human Metapneumovirus A and B Not Detected Not Detected LAB MICROBIOLOGY METHOD 02/29/2024 3:00 AM [facility] Rhinovirus/Entero virus Not Detected Not Detected LAB MICROBIOLOGY METHOD 02/29/2024 3:00 AM [facility] Bordetella pertussis Not Detected Not Detected LAB MICROBIOLOGY METHOD 02/29/2024 3:00 AM [facility] Bordetella parapertussis Not Detected Not Detected LAB MICROBIOLOGY METHOD 02/29/2024 3:00 AM [facility] Mycoplasma pneumo by PCR Not Detected Not Detected LAB MICROBIOLOGY METHOD 02/29/2024 3:00 AM [facility] Chlamydia pneumoniae Not Detected Not Detected LAB MICROBIOLOGY METHOD 02/29/2024 3:00 AM [facility] SARS COV-2 Not Detected Not Detected LAB MICROBIOLOGY METHOD 02/29/2024 3:00 AM [facility] Swab Both anterior nares / Unknown Non-blood Collection / Unknown 02/29/2024 1:27 AM EST 02/29/2024 1:46 AM EST Narrative [facility] - 02/29/2024 3:00 AM EST Testing was performed using the [employer] Respiratory Pathogen PCR Assay. All results must [...] that are below the limit of detection. Scot Leeanna Valero MD LAB MICROBIOLOGY - [facility] ORDERABLES [facility] ([facility] [address] [place] [address], documented in this encounter Visit Diagnoses Diagnosis Viral syndrome- Primary Unspecified viral infection, in conditions classified elsewhere and of unspecified site documented in this encounter Administered Medications Inactive Administered Medications - up to 3 most recent administrations Medication Order MAR Action Action Date Dose Rate Site acetaminophen (TYLENOL) tablet 1,000 mg 1,000 mg, oral, Once, On 02/29/24 at 0127, For 1 dose Given 02/29/2024 1:47 AM EST 1,000 mg ketorolac (TORADOL) injection 15 mg 15 mg, intravenous, Once, On 02/29/24 at 0207, For 1 dose Given 02/29/2024 2:22 AM EST 15 mg ondansetron (PF) (ZOFRAN) injection 4 mg 4 mg, intravenous, Once, On 02/29/24 at 0207, For 1 dose Given 02/29/2024 2:23 AM EST 4 mg sodium chloride 0.9 % bolus 1,000 mL 1,000 mL, intravenous, at 2,000 mL/hr, Administer over 30 Minutes, Once, On 02/29/24 at 0207, For 1 dose New Bag 02/29/2024 2:18 AM EST 1,000 mL 2000 mL/hr documented in this encounter Active and Recently Administered Medications Times are shown in EST. Scheduled Medication Order 2024 02/28/2024 02/29/2024 acetaminophen (TYLENOL) tablet 1,000 mg (COMPLETED) 1,000 mg, oral, Once, On 02/29/24 at 0127, For 1 dose 0147 (Given - Provid er: Mary Laughlin RN) ketorolac (TORADOL) injection 15 mg (COMPLETED) 15 mg, intravenous, Once, On 02/29/24 at 0207, For 1 dose 0222 (Given - Provid er: Haley Pathak RN) ondansetron (PF) (ZOFRAN) injection 4 mg (COMPLETED) 4 mg, intravenous, Once, On 02/29/24 at 0207, For 1 dose 0223 (Given - Provid er: Haley Pathak RN) sodium chloride 0.9 % bolus 1,000 mL (COMPLETED) 1,000 mL, intravenous, at 2,000 mL/hr, Administer over 30 Minutes, Once, On 02/29/24 at 0207, For 1 dose 0218 (New Bag - Prov ider: Haley Pathak RN)0301 (Stopped - Provider: Haley Pathak RN) documented in this encounter Additional Health Concerns Infection Onset Date Last Indicated Resolved Time Respiratory Rule-Out 02/29/2024 02/29/2024 025 3:00 AM EST COVID-19 Rule-Out 02/29/2024 02/29/2024 02/29/2024 3:00 AM EST documented as of this encounter
--- OUTSIDE RECORDS SUMMARY | 2024-03-09 15:32 | XMS_ITS | Encounter Summary ---
Author Organization [employer] [facility] Address [address] [place] [address] [address] [place] [address] Care Team Providers Care Stamp Mounter Name Role Phone Cinthya Ray MD Primary Care Provider [phone] Mayito Acuña PharmD Unavailable [phone] Reason for Referral * Consultation (Routine) - Authorized Specialty Diagnoses / Procedures Referred By Contcarly t Referred To Contact Pharmacy Diagnoses Type 2 diabetes mellitus with hyperglycemia, with long-term current use of insulin (CMS/HCC) Cinthya Ray MD [address] [place] [id number] Phone: tel: fax: Referral ID Status Reason Start Date Expiration Date Visits Requested Visits Authorized [id number] Authorized Consult and Treat 12/23/2023 12/22/2024 6 6 Encounter Details Date Type Department Care Team (Late st Contact Info) Description 12/23/2023 Orders Only [facility] [address] [place] [address] [phone] Cinthya Ray MD [address] [place], [place] [phone] Type 2 diabetes mellitus with hyperglycemia, with long-term current use of insulin (CMS/HCC) (Primary Dx) Social History Tobacco Use Types [...] Info) Description 04/23/2024 3:30 PM EDT Telemedicine [facility] [address] [place] [address] Mayito Acuña, PharmD [address] [place] [address] 07/30/2024 3:00 PM EDT Office Visit [facility] [address] [place] [address] Demario Bocanegra Scheduled Referrals Name Type Priority Associated Diagnoses Orde r Schedule Referral to Pharmacy CDTM Outpatient Referral Routine Type 2 diabetes mellitus with hyperglycemia, with long-term current use of insulin ([facility]) Ordered: 12/23/2023 documented as of this encounter Goals Goal [...] hyperglycemia, with long-term current use of insulin ([facility])- Primary documented in this encounter Additional Health Concerns Assessment Noted Time PHQ-9 Depression Total Score: 11 024 9:48 AM EDT documented as of this encounter Care Teams Stamp Mounter Relationship Specialty Start Date End Date Cinthya Ray MD [address] [place] [address] PCP - General Family Medicine 10/23/11 Mayito Acuña PharmD [address] [place] [address] Pharmacist Internal Medicine 03/07/23 documented as of this encounter
--- OUTSIDE RECORDS SUMMARY | 2024-03-09 15:32 | XMS_ITS | Encounter Summary ---
Author Organization [employer] Address [address] [place] [address] [address] [place] [address] Care Team Providers Care Manager Imaging Name Role Phone Cnithya Ray MD Primary Care Provider [phone] Mayito Acuña PharmD Unavailable [phone] Reason for Visit * Reason Onset Date Comments Med Refill 09/29/2023 Encounter Details Date Type Department Care Team (Late st Contact Info) Description 09/29/[address] [facility] [address] [place], [place] [phone] Cinthya Ray MD [address] [place], [place] [phone] Type 2 diabetes mellitus with hyperglycemia, without long-term current use of insulin ([facility]) Social History Tobacco Use Types [...] Info) Description 04/23/2024 3:[address] [facility] [address] [place] [address] Mayito Acuña, PharmD [address] [place] [address] 07/30/2024 3:00 PM EDT Office Visit [facility] [address] [place] [address] Demario Bocanegra documented as of this encounter [...] hyperglycemia, without long-term current use of insulin ([facility]) documented in this encounter Additional Health Concerns Assessment Noted Time PHQ-9 Depression Total Score: 11 024 9:48 AM EDT documented as of this encounter Care Teams Manager Imaging Relationship Specialty Start Date End Date Cinthya Ray MD [address] [place] [address] PCP - General Family Medicine 10/23/11 Mayito Acuña, [place] [address] [place] [address] Pharmacist Internal Medicine 03/07/23 documented as of this encounter
--- OUTSIDE RECORDS SUMMARY | 2024-03-09 15:32 | XMS_ITS | Encounter Summary ---
Author Organization [employer] [facility] Address [address] [place] [address] [address] [place] [address] Care Team Providers Care Terrazzo Helper Name Role Phone Cinthya Ray MD Primary Care Provider [phone] Mayito Acuña PharmD Unavailable [phone] Reason for Visit * Reason Onset Date Comments Medication Question 06/14/2022 Encounter Details Date Type Department Care Team ([facility] st Contact Info) Description 06/14/2022 Telephone [facility] [address] [place], [place] [phone] Cinthya Ray MD [address] [place], [place] [phone] Medication Question Social History Tobacco Use Types Packs/Day Years [...] suspected to have Coronavirus/COVID-19? No / Unsure 06/17/2022 3:28 PM EDT documented as of this encounter Miscellaneous Notes * Telephone Encounter - Cinthya Ray MD - 06/18/2022 8:44 AM EDT PCP instructed to take 1000 mg bid, not 2000 mg bid * Telephone Encounter - Trinidad Mehta - 06/14/2022 3:08 PM EDT Tc from patient calling in regards to metFORMIN XR (Glucophage-XR) 500 MG 24 hr tablet script. States her PCP agreed on 2,000 mg 2 tablets daily. Patient is running out of medication. documented in this encounter Plan of Treatment Upcoming Encounters Date Type Department Care Team (Late st Contact Info) Description 04/23/2024 3:30 PM EDT Telemedicine [facility] [address] [place] [address] Mayito Acuña, PharmD [address] [place] [phone] 07/30/2024 3:00 PM EDT Office Visit [facility] [address] [place] [address] Demario Bocanegra documented as of this encounter Visit Diagnoses Not on filedocumented in this encounter Care Teams Terrazzo Helper Relationship Specialty Start Date End Date Cinthya Ray MD [address] [place] [phone] PCP - General Family Medicine 10/23/11 Mayito Acuña, PharmD [address] [place] [phone] Pharmacist Internal Medicine 03/07/23 documented as of this encounter
--- OUTSIDE RECORDS SUMMARY | 2024-03-09 15:32 | XMS_ITS | Encounter Summary ---
Author Organization [employer] Address [address] [facility] 7 [place] [address] Care Team Providers Care Slubber Machine Operator Name Role Phone Cinthya Ray MD Primary Care Provider Mayito Acuña PharmD Unavailable [phone] Encounter Details Date Type Department Care Team ([facility] st Contact Info) Description 03/05/2023 Orders Only [facility] MEDICINE 230 [place], [place] [phone] Cinthya Ray MD 230 [place], [place] [phone] Social History Tobacco Use Types Packs/Day Years Used Date Smoking Tobacco: Never Passive Smoke Exposure: Never Smokeless Tobacco: Never Alcohol Use Standard Drinks/Week Comments Never 0 (1 standard drink = 0.6 oz pur e alcohol) PHQ-2 Answer Date Recorded Patient Health Questionnaire-2 Score 4 04/04/2022 Housing Stability Answer Date Recorded What is your housing situation today? I have trev villalba 12/03/[address] you li ve. Do you have problems with any of the following? None of the above 12/03/2022 Food Insecurity Answer Date Recorded Within the past 12 months, y ou worried that your food would run out before you got money to buy more: Never True 12/03/2022 Within the past 12 months,th e food you bought just didn't last and you didn't have enough money to get more: Never True Transportation Answer Date Recorded In the past 12 months, has l ack of transportation kept you from medical appts, meetings, work or from getting things needed for daily living? No 12/03/2022 Utilities Answer Date Recorded In the past 12 months, has t he electric, gas, oil or water company threatened to shut off services in your home? No 12/03/2022 Depression Answer Date Recorded Patient Health Questionnaire-2 [...] Description 04/23/2024 3:30 PM EDT Telemedicine [facility] MEDICINE 230 [place] [address] Mayito Acuña PharmD [address] [place] [address] 07/30/2024 3:00 PM EDT Office Visit [facility] ADULT DENTAL [address] [place] [address] Demario Bocanegra documented as of this encounter Goals Goal Patient Goal Type Associated Problems Recent Progress Patient-Stated? Author Blood Pressure < 140/90 Blood Pressure 97/65( 025 9:43 AM EST) No Mayito Acuña PharmD Hemoglobin A1c < 7 Result Component 6.1( 4 10:46 AM EST) No Mayito Acuña PharmD documented as of this encounter Visit Diagnoses Not on filedocumented in this encounter Care Teams Slubber Machine Operator Relationship Specialty Start Date End Date Cinthya Ray MD [address] [place] [address] PCP - General Family Medicine 10/23/11 Mayito Acuña PharmD [address] [place] [address] Pharmacist Internal Medicine 03/07/23 documented as of this encounter
--- OUTSIDE RECORDS SUMMARY | 2024-03-09 15:32 | XMS_ITS | Encounter Summary ---
Author Organization [employer] Address [address] [place] [address] 7 [place] [address] Care Team Providers Care Stone Polisher Machine Name Role Phone Citnhya Ray MD Primary Care Provider [phone] Mayito Acuña PharmD Unavailable [phone] Reason for Visit * Reason Onset Date Comments Appointment Request 09/02/2022 Encounter Details Date Type Department Care Team ([facility] st Contact Info) Description 09/02/2022 Telephone C [facility] [address] [place], [place] [phone] Cinthya Ray MD 230 [place] [address] Appointment Request Social History Tobacco Use Types Packs/Day Years [...] suspected to have Coronavirus/COVID-19? No / Unsure 08/22/2022 12:53 PM EDT documented as of this encounter Miscellaneous Notes * Telephone Encounter - Renae Jaramillo - 09/02/2022 10:15 AM EDT Tc from pt calling in regards to message above * Telephone Encounter - Karina Álvarez Roman - 09/02/2022 9:23 AM EDT Tc from pt requesting an appt with provider as soon as possible to discuss her results and to discuss about her kidney failure.' Please contact pt at [phone] documented in this encounter Plan of Treatment Upcoming Encounters Date Type Department Care Team (Late st Contact Info) Description 04/23/2024 3:30 PM EDT Telemedicine [facility] MEDICINE 230 [place] [address] Mayito Acuña, PharmD [address] [place] [address] 07/30/2024 3:00 PM EDT Office Visit [facility] CHC ADULT DENTAL [address] [place] [address] Demario Bocanegra documented as of this encounter Visit Diagnoses Not on filedocumented in this encounter Care Teams Stone Polisher Machine Relationship Specialty Start Date End Date Cinthya Ray MD [address] [place] [address] PCP - General Family Medicine 10/23/11 Mayito Acuña, PharmD [address] [place] [address] Pharmacist Internal Medicine 03/07/23 documented as of this encounter
--- OUTSIDE RECORDS SUMMARY | 2024-03-09 15:32 | XMS_ITS | Encounter Summary ---
Author Organization [employer] [facility] Address [address] [place] [address] 7 [place] [address] Care Team Providers Care Substance Abuse Specialist Name Role Phone Cinthya Ray MD Primary Care Provider Mayito Acuña PharmD Unavailable [phone] Reason for Visit * Reason Comments Med Refill Encounter Details Date Type Department Care Team (Late st Contact Info) Description 08/31/2022 Refill [facility] MEDICINE 230 [place] [address] Starla Nuñez MD 230 [place] [address] Injury of head, initial encounter Social History Tobacco Use Types Packs/Day Years [...] PM EDT documented as of this encounter Plan of Treatment Upcoming Encounters Date Type Department Care Team (Late st Contact Info) Description 04/23/2024 3:30 PM EDT Telemedicine [facility] MEDICINE 230 [place] [address] Mayito Acuña, Citlali 230 [place] [address] 07/30/2024 3:00 PM EDT Office Visit [facility] CHC ADULT DENTAL [address] [place] [address] Demario Bocanegra documented as of this encounter Visit Diagnoses Diagnosis Injury of head, initial encounter documented in this encounter Care Teams Substance Abuse Specialist Relationship Specialty Start Date End Date Cinthya Ray MD [address] [place] [address] PCP - General Family Medicine 10/23/11 Mayito Acuña, Citlali [address] [place] [address] Pharmacist Internal Medicine 03/07/23 documented as of this encounter
--- OUTSIDE RECORDS SUMMARY | 2024-03-09 15:32 | XMS_ITS | Encounter Summary ---
Author Organization [employer] [facility] Address [address] [place] [address] 7 [place] [address] Care Team Providers Care Tentering Machine Off Bearer Name Role Phone Cinthya Ray MD Primary Care Provider [phone] Mayito Acuña PharmD Unavailable [phone] Reason for Visit * Reason Onset Date Comments Med Refill 10/30/2023 Encounter Details Date Type Department Care Team (Late st Contact Info) Description 10/30/2023 Refill [facility] MEDICINE 230 [place], [place] [phone] Cinthya Ray MD 230 [place], [place] [phone] Social History Tobacco Use Types Packs/Day Years [...] Info) Description 04/23/2024 3:30 PM EDT Telemedicine [facility] MEDICINE 230 [place] [address] Mayito Acuña PharmD 230 [place] [address] 07/30/2024 3:00 PM EDT Office Visit [facility] CHC ADULT DENTAL [address] [place] [address] Demario Bocnaegra documented as of this encounter Goals Goal [...] documented as of this encounter Care Teams Tentering Machine Off Bearer Relationship Specialty Start Date End Date Cinthya Ray MD [address] [place] [address] PCP - General Family Medicine 10/23/11 Mayito Acuña, PharmD 230 [place] [address] Pharmacist Internal Medicine 03/07/23 documented as of this encounter
--- OUTSIDE RECORDS SUMMARY | 2024-03-09 15:32 | XMS_ITS | Encounter Summary ---
Author Organization [employer] Address [address] [place] [address] 7 [place] [address] Care Team Providers Care Finish Machine Tender Name Role Phone Cinthya Ray MD Primary Care Provider [phone] Mayito Acuña PharmD Unavailable [phone] Reason for Visit * Reason Onset Date Comments Med Refill 01/03/2023 Encounter Details Date Type Department Care Team (Late st Contact Info) Description 01/03/2023 Refill [facility] MEDICINE 230 [place], [place] [phone] Cinthya Ray MD 230 [place], [place] [phone] Social History Tobacco Use Types Packs/Day Years [...] Info) Description 04/23/2024 3:30 PM EDT Telemedicine [facility] MEDICINE 230 [place] [address] Mayito Acuña, PharmD [address] [place] [address] 07/30/2024 3:00 PM EDT Office Visit [facility] ADULT D[facility]AL [address] [place] [address] Demario Bocanegra documented as of this encounter Visit Diagnoses Not on filedocumented in this encounter Care Teams Finish Machine Tender Relationship Specialty Start Date End Date Cinthya Ray MD [address] [place] [address] PCP - General Family Medicine 10/23/11 Mayito Acuña, PharmD [address] [place] [address] Pharmacist Internal Medicine 03/07/23 documented as of this encounter
--- OUTSIDE RECORDS SUMMARY | 2024-03-09 15:32 | XMS_ITS | Encounter Summary ---
Author Organization [employer] Address [address] [place] [address] 7 [place] [address] Care Team Providers Care Striper Name Role Phone Cinthya Ray MD Primary Care Provider [phone] Mayito Acuña PharmD Unavailable [phone] Reason for Visit * Reason Onset Date Comments Med Refill 10/30/2023 Encounter Details Date Type Department Care Team (Late st Contact Info) Description 10/30/2023 Refill [facility] CHC MED & PEDS [address] [place], [place] [phone] Cinthya Ray MD 230 [place] [address] Type 2 diabetes mellitus with hyperglycemia, without long-term current use of insulin ([facility]) Social History Tobacco Use Types Packs/Day [...] Info) Description 04/23/2024 3:30 PM EDT Telemedicine [facility] MEDICINE 230 [place] [address] Mayito Acuña, yDanD 230 [place] [address] 07/30/2024 3:00 PM EDT Office Visit [facility] CHC ADULT DENTAL [address] [place] [address] Demario Bocanegra documented as of this encounter [...] hyperglycemia, without long-term current use of insulin ([facility]) documented in this encounter Additional Health Concerns Assessment Noted Time PHQ-9 Depression Total Score: 11 024 9:48 AM EDT documented as of this encounter Care Teams Striper Relationship Specialty Start Date End Date Cinthya Ray MD [address] [place] [address] PCP - General Family Medicine 10/23/11 Mayito Acuña, Citlali [address] [place] [address] Pharmacist Internal Medicine 03/07/23 documented as of this encounter
--- OUTSIDE RECORDS SUMMARY | 2024-03-09 15:32 | XMS_ITS | Encounter Summary ---
Author Organization [employer] [facility] Address [address] [place] [address] 7 [place] [address] Care Team Providers Care Wildland Fire Operations Specialist Name Role Phone Cinthya Ray MD Primary Care Provider [phone] Mayito Acuña PharmD Unavailable [phone] Reason for Visit * Reason Comments Med Refill Encounter Details Date Type Department Care Team ([facility] st Contact Info) Description 02/16/[address] [facility] MEDICINE 230 [place], [place] [phone] Mayito Acuña, PharmD 230 [place] [address] Type 2 diabetes mellitus with hyperglycemia, with long-term current use of insulin ([facility]) Social History Tobacco Use Types Packs/Day Years [...] encounter Miscellaneous Notes * Telephone Encounter - Mayito Acuña PharmD - 02/17/2024 12:35 PM EST Pharmacist will renew Mounjaro 7.5 mg subcutaneously once a week. At last visit patient was tolerating well, CDTM FU scheduled 04/24/2023. documented in this encounter Plan of Treatment Upcoming Encounters Date Type Department Care Team (Late st Contact Info) Description 04/23/2024 3:[address] [facility] MEDICINE [address] [place] [address] Mayito Acuña PharmD 230 [place] [address] 07/30/2024 3:00 PM EDT Office Visit [facility] CHC ADULT DENTAL [address] [place] [address] Demario Bocanegra documented as of this encounter [...] hyperglycemia, with long-term current use of insulin ([facility]) documented in this encounter Additional Health Concerns Assessment Noted Time PHQ-9 Depression Total Score: 11 024 9:48 AM EDT documented as of this encounter Care Teams Wildland Fire Operations Specialist Relationship Specialty Start Date End Date Cinthya Ray MD 230 [place] [address] PCP - General Family Medicine 10/23/11 Mayito Acuña PharmD [address] [place] [address] Pharmacist Internal Medicine 03/07/23 documented as of this encounter
--- OUTSIDE RECORDS SUMMARY | 2024-03-09 15:32 | XMS_ITS | Encounter Summary ---
Author Organization [employer] Address [address] [facility] 7 [place] [address] Care Team Providers Care Behavioral Health Director Name Role Phone Cinthya Ray MD Primary Care Provider [phone] Mayito Acuña PharmD Unavailable [phone] Encounter Details Date Type Department Care Team (Late st Contact Info) Description 01/31/2024 Orders Only [facility] MEDICINE 230 [place], [place] [phone] Cinthya Ray MD 230 [place], [place] [phone] Vitamin D deficiency (Primary Dx) Social History Tobacco Use Types [...] 04/23/2024 3:30 PM EDT Telemedicine [facility] MEDICINE 230 [place] [address] Mayito Acuña PharmD 230 [place] [address] 07/30/2024 3:00 PM EDT Office Visit [facility] CHC ADULT DENTAL [address] [place] [address] Demario Bocanegra documented as of this encounter Goals Goal Patient Goal Type Associated Problems Recent Progress Patient-Stated? Author Blood Pressure < 140/90 Blood Pressure 97/65( 025 9:43 AM EST) No Mayito Acuña PharmDao Hemoglobin A1c < 7 Result Component 6.1( 4 10:46 AM EST) No Mayito Acuña PharmD documented as of this encounter Visit Diagnoses Diagnosis Vitamin D deficiency- Primary documented in this encounter Additional Health Concerns Assessment Noted Time PHQ-9 Depression Total Score: 11 024 9:48 AM EDT documented as of this encounter Care Teams Behavioral Health Director Relationship Specialty Start Date End Date Cinthya Ray MD 230 [place] [address] PCP - General Family Medicine 10/23/11 Mayito Acuña, DyanD 230 [place] [address] Pharmacist Internal Medicine 03/07/23 documented as of this encounter
--- OUTSIDE RECORDS SUMMARY | 2024-03-09 15:32 | XMS_ITS | Encounter Summary ---
Author Organization [employer] [facility] Address [address] [place] [address] 7 [place] [address] Care Team Providers Care Utility Mechanic Supervisor Name Role Phone Cinthya Ray MD Primary Care Provider [phone] Mayito Acuña PharmD Unavailable [phone] Reason for Visit * Reason Onset Date Comments Results 12/09/2022 Encounter Details Date Type Department Care Team ([facility] st Contact Info) Description 12/09/2022 Telephone [facility] MEDICINE 230 [place], [place] [phone] Cinthya Ray MD 230 [place] [address] Results Social History Tobacco Use Types Packs/Day Years [...] * Telephone Encounter - Renae Jaramillo - 12/09/2022 3:45 PM EDT Tc from pt requesting a call in regards to US results. Please contact pt at [phone] documented in this encounter Plan of Treatment Upcoming Encounters Date Type Department Care Team (Late st Contact Info) Description 04/23/2024 3:30 PM EDT Telemedicine [facility] MEDICINE 230 [place] [address] Mayito Acuña, Citlali [address] [place] [address] 07/30/2024 3:00 PM EDT Office Visit [facility] CHC ADULT DENTAL [address] [place] [address] Demario Bocanegra documented as of this encounter Visit Diagnoses Not on filedocumented in this encounter Care Teams Utility Mechanic Supervisor Relationship Specialty Start Date End Date Cinthya Ray MD [address] [place] [address] PCP - General Family Medicine 10/23/11 Mayito Acuña, PharmD [address] [place] [address] Pharmacist Internal Medicine 03/07/23 documented as of this encounter
--- OUTSIDE RECORDS SUMMARY | 2024-03-09 15:32 | XMS_ITS | Encounter Summary ---
Author Organization [employer] Address [address] [place] [address] 7 [place] [address] Care Team Providers Care Mailroom Courier Name Role Phone Cinthya Ray MD Primary Care Provider [phone] Mayito Acuña PharmD Unavailable [phone] Reason for Visit * Reason Onset Date Comments Med Refill 12/24/2023 Encounter Details Date Type Department Care Team (Late st Contact Info) Description 12/24/2023 Refill [facility] CHC MED & PEDS [address] [place], [place] [phone] Cinthya Ray MD 230 [place] [address] Type 2 diabetes mellitus with hyperglycemia, without long-term current use of insulin ([facility]) Social History Tobacco Use Types Packs/Day Years [...] is your housing situation today? I have rtev villalba 06/10/[address] you [...] PM EDT Telemedicine [facility] MEDICINE 230 [place] [address] Mayito Acuña PharmD 230 [place] [address] 07/30/2024 3:00 PM EDT Office Visit [facility] CHC ADULT DENTAL [address] [place] [address] Demario Bocanegra documented as of this encounter [...] hyperglycemia, without long-term current use of insulin ([facility]) documented in this encounter Additional Health Concerns Assessment Noted Time PHQ-9 Depression Total Score: 11 024 9:48 AM EDT documented as of this encounter Care Teams Mailroom Courier Relationship Specialty Start Date End Date Cinthya Ray MD 230 [place] [address] PCP - General Family Medicine 10/23/11 Mayito Acuña, DyanD [address] [place] [address] Pharmacist Internal Medicine 03/07/23 documented as of this encounter
--- OUTSIDE RECORDS SUMMARY | 2024-03-09 15:32 | XMS_ITS | Encounter Summary ---
Author Organization [employer] Address [address] [place] [address] 7 [place] [address] Care Team Providers Care Bariatric Coordinator Name Role Phone Cinthya Ray MD Primary Care Provider [phone] Mayito Acuña PharmD Unavailable [phone] Reason for Visit * Reason Onset Date Comments Med Refill 09/29/2023 Encounter Details Date Type Department Care Team (Late st Contact Info) Description 09/29/2023 Refill [facility] CHC MED & PEDS [address] [place], [place] [phone] Cinthya Ray MD 230 [place] [address] Type 2 diabetes mellitus with hyperglycemia, without long-term current use of insulin ([facility]) Social History Tobacco Use Types Packs/Day [...] Info) Description 04/23/2024 3:30 PM EDT Telemedicine [facility] MEDICINE 230 [place] [address] Mayito Acuña, DyanD [address] [place] [address] 07/30/2024 3:00 PM EDT Office Visit [facility] CHC ADULT DENTAL [address] [place] [address] Demario Bocanegra documented as of this encounter [...] hyperglycemia, without long-term current use of insulin ([facility]) documented in this encounter Additional Health Concerns Assessment Noted Time PHQ-9 Depression Total Score: 11 024 9:48 AM EDT documented as of this encounter Care Teams Bariatric Coordinator Relationship Specialty Start Date End Date Cinthya Ray MD [address] [place] [address] PCP - General Family Medicine 10/23/11 Mayito Acuña, Citlali [address] [place] [address] Pharmacist Internal Medicine 03/07/23 documented as of this encounter
== END 2024-03-09 15:24 | disposition home or self-care (01) ==
PROVIDERS: PCP Family Medicine; Visit Provider Orthopaedic Surgery
DX: M25.312 Other instability, left shoulder (principal); M75.42 Impingement syndrome of left shoulder
CPT/HCPCS: 99203

== ENCOUNTER → 2024-03-09 14:37 | Outpatient (BNVA) | payer MEDICAID, SELFPAY | PROVIDERS: PCP Family Medicine; Visit Provider Orthopaedic Surgery | DX: M25.312 Other instability, left shoulder (principal); R53.1 Weakness | CPT/HCPCS: 99202 ==

== ENCOUNTER 2024-03-12 19:04 | Outpatient (REF) | payer MEDICAID, SELFPAY ==
--- NOTE | ~2024-03-12 | MR_ITS ---
EXAMINATION: MRI LEFT SHOULDER WITHOUT CONTRAST HISTORY: M25.312 - Other instability, left shoulder COMPARISON: Correlation is made with plain films of the left shoulder dated 01/27/2024. TECHNIQUE: Coronal T1, T2, and fat suppressed T2, axial fat suppressed proton density, and sagittal T2 weighted MR images of the left shoulder were obtained. FINDINGS: Bone marrow signal intensity is normal. There is no glenohumeral joint effusion. The glenohumeral and acromioclavicular joints are maintained. The tendons of the rotator cuff are intact. No tear is seen. There is no fluid in the subdeltoid/subacromial bursa. Muscle bulk is normal. The biceps tendon is normally located. The glenoid labrum is grossly unremarkable in appearance, although evaluation is limited by lack of a joint effusion. MR/MR shoulder LT wo con IMPRESSION: Unremarkable MRI of the left shoulder. Electronically signed by: Anand Vera MD 03/15/2024 10:04 AM [facility]
== END 2024-03-12 19:05 | disposition home or self-care (01) ==
LOC: HO.MRI 19:04
PROVIDERS: PCP Family Medicine; Visit Provider Orthopaedic Surgery
DX: M25.312 Other instability, left shoulder (principal)
CPT/HCPCS: 73221

== ENCOUNTER → 2024-03-12 19:12 | Outpatient (BNV) | payer MEDICAID, SELFPAY | PROVIDERS: PCP Family Medicine; Visit Provider Radiology Diagnostic Radiology | DX: M25.312 Other instability, left shoulder (principal) | CPT/HCPCS: 73221 ==

== ENCOUNTER 2024-03-19 14:53 | Outpatient (REF) | payer MEDICAID, SELFPAY | END 2024-03-19 14:54 | disposition home or self-care (01) | LOC: HO.NEURO 14:53 | PROVIDERS: PCP Family Medicine; Visit Provider Family Medicine | DX: R20.0 Anesthesia of skin (principal) | CPT/HCPCS: 95886; 95909 ==

== ENCOUNTER → 2024-03-19 14:57 | Outpatient (BNV) | payer MEDICAID, SELFPAY | PROVIDERS: PCP Family Medicine; Visit Provider Physical Medicine & Rehabilitation | DX: R20.2 Paresthesia of skin (principal); R20.0 Anesthesia of skin | CPT/HCPCS: 95886; 95909 ==

== ENCOUNTER 2024-03-26 14:21 | Outpatient (AMB) | payer OTHER, SELFPAY ==
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
--- OUTSIDE RECORDS SUMMARY | 2024-03-26 14:23 | XMS_ITS | Encounter Summary ---
Author Organization [facility] Address [address] [place] [address] [facility] [place] [address] Care Team Providers Care Home Care Coordinator Name Role Phone Cinthya Ray MD Primary Care Provider [phone] Mayito Acuña PharmD Unavailable [phone] Reason for Referral * Consultation (Routine) - Closed Specialty Diagnoses / Procedures Referred By Contcarly t Referred To Contact Orthopaedic Surgery Diagnoses Chronic left shoulder pain Cinthya Ray MD [address] [place] [phone] Phone: tel: fax: [facility] [address] [place] [address] Phone: tel: Referral ID Status Reason Start Date Expiration Date V isits Requested Visits Authorized [id number] Closed Specialty Services Required 02/05/2024 02/04/2025 6 6 Encounter Details Date Type Department Care Team (Late st Contact Info) Description 02/05/2024 Orders Only [facility] [address] [place] [phone] Cinthya Ray MD [address] [place], [place] [phone] Chronic left shoulder pain (Primary Dx) Social [...] Info) Description 04/23/2024 3:30 PM EDT Telemedicine [facility] [address] [place] [address] Mayito Acuña, PharmD [address] [place] [address] 07/30/2024 3:00 PM EDT Office Visit [facility] [address] [place] [address] Demario Bocanegra Scheduled Referrals Name Type Priority [...] documented as of this encounter Care Teams Home Care Coordinator Relationship Specialty Start Date End Date Cinthya Ray MD [address] [place] [address] PCP - General Family Medicine 10/23/11 Mayito Acuña PharmD [address] [place] [address] Pharmacist Internal Medicine 03/07/23 documented as of this encounter
--- OUTSIDE RECORDS SUMMARY | 2024-03-26 14:23 | XMS_ITS | Encounter Summary ---
Author Organization [facility] Address [address] [place] [address] 7 [place] [address] Care Team Providers Care Sterile Proc Tech Name Role Phone Cinthya Ray MD Primary Care Provider [phone] Mayito Acuña PharmD Unavailable [phone] Encounter Details Date Type Department Care Team (Late Contact Info) Description 06/13/2022 Orders Only [facility] [address] [place] [phone] Jerrica Girard FNP Social History Tobacco [...] SYSTEM [facility] [address] [place] [address] Mayito Acuña, PharmD [address] [place] [phone] 07/30/2024 3:00 PM EDT Office Visit [facility] AD[facility] [address] [place] [address] Demario Bocanegra documented as of this encounter Visit Diagnoses Not on filedocumented in this encounter Care Teams Sterile Proc Tech Relationship Specialty Start Date End Date Cinthya Ray MD [address] [place] [phone] PCP - General Family Medicine 10/23/11 Mayito Acuña, PharmD [address] [place] [phone] Pharmacist Internal Medicine 03/07/23 documented as of this encounter
--- OUTSIDE RECORDS SUMMARY | 2024-03-26 14:23 | XMS_ITS | Encounter Summary ---
Author Organization [facility] Address [address] [place] [address] 7 [place] [address] Care Team Providers Care Line Construction Superintendent Name Role Phone Cinthya Ray MD Primary Care Provider [phone] Mayito Acuña PharmD Unavailable [phone] Encounter Details Date Type Department Care Team (Late Contact Info) Description 02/26/2022 Abstract [facility] [address] [place] [address] [phone] Cinthya Ray MD [address] [place] [phone] Social History Tobacco Use Types Packs/Day Years [...] Info) Description 04/23/2024 3:30 PM EDT Telemedicine [facility] [address] [place] [phone] Mayito Acuña, PharmD [address] [place], [place] [phone] 07/30/2024 3:00 PM EDT Office Visit [facility] [address] [place] [address] Demario Bocanegra documented as of this encounter Visit Diagnoses Not on filedocumented in this encounter Care Teams Line Construction Superintendent Relationship Specialty Start Date End Date Cinthya Ray MD [address] [place] [phone] PCP - General Family Medicine 10/23/11 Mayito Acuña, DyanD [address] [place] [phone] Pharmacist Internal Medicine 03/07/23 documented as of this encounter
--- OUTSIDE RECORDS SUMMARY | 2024-03-26 14:23 | XMS_ITS | Encounter Summary ---
Author Organization [employer] Address [address] [place] [address] Care Team Providers Care Switching Clerk Name Role Phone Unavailable Primary Care Provider Unavailabl e Reason for Visit * Reason Comments Flu Symptoms Sore throat, chills, cough. +sick contacts Encounter Details Date Type Department Care Team (Late st Contact Info) Description 02/29/2024 2:07 AM EST - 02/29/2024 3:08 AM EST Emergency [facility] Emergency [address] [place] [address] Viral syndrome (Primary Dx) Discharge Disposition: Home or Self Care Social History Tobacco Use Types Packs/Day Years Used Date Smoking Tobacco: Never Assessed Comments Unknown Sex and Gender Information Value Date Recorded Sex Assigned at Female 02/29/2024 2:10 AM EST Legal Sex Female 2:17 AM EST Gender Identity Not on file Sexual Orientation Not on file documented as of this [...] aches and pains. You may also take [id number] cold medications. Please be aware that many [...] or require a referral, a follow-up doctor speech communication instructor for the emergency department will be provided [...] arrangements [facility] Sadiq Kayley Shahid * Attachments The following attachments cannot be sent through Care Everywhere. * Viral Infections (Azerbaijani) documented in this encounter Discharge Disposition Disposition [...] Past Medical History: Diagnosis Date Diabetes mellitus ([facility]) No past surgical history on file. No [...] Detected Narrative: Testing was performed using the Quantifind Respiratory Pathogen PCR Assay. All results must [...] plan. [ES] ED Course User Index [ES] KRAINE Johnston Clinical Impressions as of 02/29/24 0304 Viral syndrome Procedures Procedures Diagnosis 1. Viral syndrome Disposition Discharge ED Prescriptions None Physician Attestation KARINE Johnston 02/29/24 025 KARINE Johnston 02/29/24 030 Cosigned by Carlos Valero MD at 03/01/2024 12:49 AM EST Associated attestation - Carlos Valero MD - [...] LAB MICROBIOLOGY METHOD 02/29/2024 3:00 AM EST [facility] Influenza A PCR Not Detected Not Detected LAB MICROBIOLOGY METHOD 02/29/2024 3:00 AM EST [facility] Influenza B PCR Not Detected Not Detected LAB MICROBIOLOGY METHOD 02/29/2024 3:00 AM [facility] Coronavirus 229E Not Detected Not Detected LAB MICROBIOLOGY METHOD 02/29/2024 3:00 AM [facility] Coronavirus HKU1 Not Detected Not Detected LAB MICROBIOLOGY METHOD 02/29/2024 3:00 AM [facility] Coronavirus OC43 Not Detected Not Detected LAB MICROBIOLOGY METHOD 02/29/2024 3:00 AM [facility] Coronavirus NL63 Not Detected Not Detected LAB MICROBIOLOGY METHOD 02/29/2024 3:00 AM [facility] Parainfluenza Virus 1 Not Detected Not Detected LAB MICROBIOLOGY METHOD 02/29/2024 3:00 AM [facility] Parainfluenza Virus 2 Not Detected Not Detected LAB MICROBIOLOGY METHOD 02/29/2024 3:00 AM [facility] Parainfluenza Virus 3 Not Detected Not Detected LAB MICROBIOLOGY METHOD 02/29/2024 3:00 AM [facility] Parainfluenza Virus 4 Not Detected Not Detected LAB MICROBIOLOGY METHOD 02/29/2024 3:00 AM [facility] RSV PCR Not Detected Not Detected LAB MICROBIOLOGY METHOD 02/29/2024 3:00 AM [facility] Human Metapneumovirus A and B Not Detected Not Detected LAB MICROBIOLOGY METHOD 02/29/2024 3:00 AM [facility] Rhinovirus/Entero virus Not Detected Not Detected LAB MICROBIOLOGY METHOD 02/29/2024 3:00 AM [facility] Bordetella pertussis Not Detected Not Detected LAB MICROBIOLOGY METHOD 02/29/2024 3:00 AM [facility] Bordetella parapertussis Not Detected Not Detected LAB MICROBIOLOGY METHOD 02/29/2024 3:00 AM [facility] Mycoplasma pneumo by PCR Not Detected Not Detected LAB MICROBIOLOGY METHOD 02/29/2024 3:00 AM [facility] Chlamydia pneumoniae Not Detected Not Detected LAB MICROBIOLOGY METHOD 02/29/2024 3:00 AM EST [facility] SARS COV-2 Not Detected Not Detected LAB MICROBIOLOGY METHOD 02/29/2024 3:00 AM EST [facility] Swab Both anterior nares / Unknown Non-blood Collection / Unknown 02/29/2024 1:27 AM EST 02/29/2024 1:46 AM EST Narrative [facility] - 02/29/2024 3:00 AM EST Testing was performed using the Quantifind Respiratory Pathogen PCR Assay. All results must [...] that are below the limit of detection. [facility] Leeanna Valero MD LAB [facility] Final Result [facility] [address] [place] [address], documented in this encounter Visit Diagnoses Diagnosis [...]
--- OUTSIDE RECORDS SUMMARY | 2024-03-26 14:23 | XMS_ITS | Encounter Summary ---
Author Organization [employer] Address [address] [facility] 7 [place] [address] Care Team Providers Care Cripple Cutter Name Role Phone Cinthya Ray MD Primary Care Provider [phone] Mayito Acuña PharmD Unavailable [phone] Reason for Visit * Reason Comments Sore Throat Encounter Details Date Type Department Care Team ([facility] st Contact Info) Description 03/02/2024 10:00 AM EST Office Visit [facility] [address] [place] [address] [phone] Sonali Tellez MD [address] [place], [place] [phone] Cough in adult patient Social History Tobacco [...] the past 12 months, has t he [employer], gas, oil or water [employer] threatened to shut off services in your [...] Info) Description 04/23/2024 3:30 PM EDT Telemedicine [facility] [address] [place] [address] Mayito Acuña PharmD [address] [place] [address] 07/30/2024 3:00 PM EDT Office Visit [facility] ADULT DENTAL [address] [place] [address] Demario Bocanegra documented as of this encounter [...] AM EST) Influenza A Negative Negative, Indeterminate [facility] Swab 03/02/2024 10:1 8 AM EST Sonali Tellez MD POINT OF CARE TEST ENTER/E DIT ORDERABLES Final Result [facility] [address] [place] [address] [phone] * POCT Rapid Influenza B SEBASTIAN ID NOW (03/02/2024 10:18 AM EST) [facility] Influenza B Negative Negative, Indeterminate [facility] Swab 03/02/2024 10:1 8 AM EST Sonali Tellez MD POINT OF CARE TEST ENTER/E DIT ORDERABLES Final Result [facility] [address] [place] [address] [phone] * POCT Rapid Covid-19 [employer] (03/02/2024 10:18 AM EST) [facility] Rapid COVID Ag Negative Swab 03/02/2024 10:1 8 AM EST us Sonali Tellez MD POINT OF CARE TEST ENTER/E DIT ORDERABLES Final Result * POCT rapid strep A manually resulted (03/02/2024 10:18 AM EST) [facility] Rapid Strep A Screen Negative Negative, None [...] documented as of this encounter Care Teams Cripple Cutter Relationship Specialty Start Date End Date Cinthya Ray MD [address] [place] [address] PCP - General Family Medicine 10/23/11 Mayito Acuña, Citlali [address] [place] [address] Pharmacist Internal Medicine 03/07/23 documented as of this encounter
--- OUTSIDE RECORDS SUMMARY | 2024-03-26 14:23 | XMS_ITS | Encounter Summary ---
Author Organization [employer] [facility] Address [address] [place] [address] 7 [place] [address] Care Team Providers Care Wire Bound Box Machine Operator Name Role Phone Cinthya Ray MD Primary Care Provider [phone] Mayito Acuña PharmD Unavailable [phone] Reason for Visit * Reason Onset Date Comments Nurse Triage 03/23/2024 Encounter Details Date Type Department Care Team ([facility] st Contact Info) Description 03/23/2024 Telephone [facility] MEDICINE [address] [place], [place] [phone] Cinthya Ray MD [address] [place] [address] Nurse Triage Social History Tobacco Use Types Packs/Day Years [...] encounter Miscellaneous Notes * Telephone Encounter - Linda Dang RN - 03/23/2024 5:19 PM EST Images from the original note were not included. Call returned to Sonali Rosa for triage below. No answer LVM to return call to [facility] triage line [phone]. Will also send portal message to return call. Reviewed [facility] operating hours . Tien Rosa routed conversation to [place] Triage Nurse4 hours ago (12:47 PM) Sonali Rosa P [facility] [facility] Clinical Support (supporting Cinthya Ray MD)6 hours ago(10:56 AM) My sugars have not gone done and it has been very high even with taking my medication. Unsure if mymedication needs to be adjusted or what steps to take. documented in this encounter Plan of Treatment Upcoming Encounters Date Type Department Care Team (Late st Contact Info) Description 04/23/2024 3:30 PM EDT Telemedicine [facility] [address] [place] [address] Mayito Acuña, PharmD [address] [place] [address] 07/30/2024 3:00 PM EDT Office Visit [facility] ADULT [facility] [address] [place] [address] Demario Bocanegra documented as of this encounter [...] documented as of this encounter Care Teams Wire Bound Box Machine Operator Relationship Specialty Start Date End Date Cinthya Ray MD [address] [place] [address] PCP - General Family Medicine 10/23/11 Mayito Acuña PharmD [address] [place] [address] Pharmacist Internal Medicine 03/07/23 documented as of this encounter
--- OUTSIDE RECORDS SUMMARY | 2024-03-26 14:23 | XMS_ITS | Encounter Summary ---
Author Organization [facility] Address [address] [place] [address] 7 [place] [address] Care Team Providers Care Scanning Coordinator Name Role Phone Cinthya Ray MD Primary Care Provider [phone] Mayito Acuña PharmD Unavailable [phone] Reason for Visit * Reason Onset Date Comments triage 04/10/2022 Encounter Details Date Type Department Care Team (Late st Contact Info) Description 04/10/2022 Telephone [facility] MED[facility]INE [address] [place], [place] [phone] Cinthya Ray MD [address] [place], [place] [phone] triage Social History Tobacco Use Types Packs/Day [...] Info) Description 04/23/2024 3:30 PM EDT Telemedicine [facility]INE [address] [place] [address] Mayito Acuña, PharmD [address] [place] [address] 07/30/2024 3:00 PM EDT Office Visit [facility] [address] [place] [address] Demario Bocanegra documented as of this encounter Visit Diagnoses Not on filedocumented in this encounter Care Teams Scanning Coordinator Relationship Specialty Start Date End Date Cinthya Ray MD [address] [place] [address] PCP - General Family Medicine 10/23/11 Mayito Acuña, Citlali [address] [place] [address] Pharmacist Internal Medicine 03/07/23 documented as of this encounter
--- OUTSIDE RECORDS SUMMARY | 2024-03-26 14:23 | XMS_ITS | Encounter Summary ---
Author Organization [employer] Address [address] [facility] 7 [place] [address] Care Team Providers Care Electronic News Gathering Editor Name Role Phone Cinthya Ray MD Primary Care Provider [phone] Mayito Acuña PharmD Unavailable [phone] Encounter Details Date Type Department Care Team ([facility] st Contact Info) Description 03/05/2023 Orders Only [facility] MED[facility]INE [address] [place], [place] [phone] Cinthya Ray MD [address] [place], [place] [phone] Social History Tobacco Use Types Packs/Day Years [...] Description 04/23/2024 3:30 PM EDT Telemedicine [facility] [address] [place] [address] Mayito Acuña PharmD [address] [place] [address] 07/30/2024 3:00 PM EDT Office Visit [facility] [address] [place] [address] Demario Bocanegra documented as of this encounter Goals Goal Patient Goal Type Associated Problems Recent Progress Patient-Stated? Author Blood Pressure < 140/90 Blood Pressure 97/65( 025 9:43 AM EST) No Mayito Acuña PharmD Hemoglobin A1c < 7 Result Component 6.1( 4 10:46 AM EST) No Mayito Acuña PharmD documented as of this encounter Visit Diagnoses Not on filedocumented in this encounter Care Teams Electronic News Gathering Editor Relationship Specialty Start Date End Date Cinthya Ray MD [address] [place] [address] PCP - General Family Medicine 10/23/11 Mayito Acuña PharmD [address] [place] [phone] Pharmacist Internal Medicine 03/07/23 documented as of this encounter
--- OUTSIDE RECORDS SUMMARY | 2024-03-26 14:23 | XMS_ITS | Encounter Summary ---
Author Organization [employer] Address [address] [place] [address] 7 [place] [address] Care Team Providers Care Portable Track Line Marker Name Role Phone Cinthya Ray MD Primary Care Provider [phone] Mayito Acuña PharmD Unavailable [phone] Reason for Visit * Reason Onset Date Comments callback request 12/30/2023 Encounter Details Date Type Department Care Team ([facility] st Contact Info) Description 12/30/2023 Telephone [facility] [address] [place], [place] [phone] Cinthya Ray MD [address] [place] [address] callback request Social History Tobacco Use Types [...] the past 12 months, has t he [employer], gas, oil or water [employer] threatened to shut off services in your [...] EST Tc from pt returning call from [facility] to book an appointment for follow up Callback [phone] documented in this encounter Plan of Treatment Upcoming Encounters Date Type Department Care Team (Late st Contact Info) Description 04/23/2024 3:30 PM EDT Telemedicine [facility] [address] [place] [address] Mayito Acuña PharmD [address] [place] [address] 07/30/2024 3:00 PM EDT Office Visit [facility] [address] [place] [address] Demario Bocanegra documented as of this encounter [...] documented as of this encounter Care Teams Portable Track Line Marker Relationship Specialty Start Date End Date Cinthya Ray MD [address] [place] [address] PCP - General Family Medicine 10/23/11 Mayito Acuña PharmD [address] [place] [phone] Pharmacist Internal Medicine 03/07/23 documented as of this encounter
--- OUTSIDE RECORDS SUMMARY | 2024-03-26 14:23 | XMS_ITS | Encounter Summary ---
Author Organization [employer] Address [address] [facility] 7 [place] [address] Care Team Providers Care Grinder Set Up Operator Centerless Name Role Phone Cinthya Ray MD Primary Care Provider [phone] Mayito Acuña PharmD Unavailable [phone] Encounter Details Date Type Department Care Team (Late st Contact Info) Description 01/31/2024 Orders Only [facility] [address] [place], [place] [phone] Cinthya Ray MD [address] [place], [place] [phone] Vitamin D deficiency (Primary Dx) Social History [...] Info) Description 04/23/2024 3:30 PM EDT Telemedicine [facility] [address] [place] [address] Mayito Acuña PharmD [address] [place] [address] 07/30/2024 3:00 PM EDT Office Visit [facility] [address] [place] [address] Demario Bocanegra documented as of this encounter [...] documented as of this encounter Care Teams Grinder Set Up Operator Centerless Relationship Specialty Start Date End Date Cinthya Ray MD [address] [place] [address] PCP - General Family Medicine 10/23/11 Mayito Acuña, DaynD [address] [place] [address] Pharmacist Internal Medicine 03/07/23 documented as of this encounter
--- OUTSIDE RECORDS SUMMARY | 2024-03-26 14:23 | XMS_ITS | Clinical Summary ---
Author Organization [employer] Address [address] [place] [address] 7 [place] [address] Care Team Providers Care Fiscal Assistant Name Role Phone Cinthya Ray MD Primary Care Provider [phone] Mayito Acuña PharmD Unavailable [phone] Allergies No known active allergies Medications * This document contains information received from the source organization and may not represent a complete record from that organization. Blood Glucose Monitoring Suppl (cashcloud [place] Lite) w/Device kit TEST BLOOD SUGAR EVERY DAY 022 Active Alcohol Swabs (Alcohol Prep) 70 % padsIndications: Type 2 diabetes mellitus with hyperglycemia ([facility]) USE FOUR TIMES DAILY AND NEEDED 100 each 11 023 Active TRUEplus Lancets 33G miscIndications: Type 2 diabetes mellitus with hyperglycemia ([facility]) TEST BLOOD SUGAR FOUR TIMES DAILY 100 [...] 40 mg by mouth Once per day. 024 Active Sodium Fluoride (PreviDent 5000 Booster Plus) 1.1 % paste Please use pea size to brush your teeth twice daily. Spit after brushing. So not rinse. 112 g 1 024 Active acetaminophen (Tylenol) 500 MG tabletIndication s:Injury of head, initial encounter TAKE 2 TABLETS BY MOUTH EVERY 6 HOURS IF NEEDED FOR MODERATE PAIN OR FEVER UP TO 25 DOSES. 50 tablet 024 Active ibuprofen 600 MG tablet TAKE 1 TABLET BY MOUTH IN THE MORNING, AT NOON AND AT BEDTIME IF NEEDED FOR MILD PAIN 90 tablet 024 Active insulin degludec (Tresiba FlexTouch) 100 UNIT/ML injectionIndicat ions:Type 2 diabetes mellitus with hyperglycemia, without long-term current use of insulin ([facility]) INJECT 48 UNITS SUBCUTANEOUSLY ONCE EVERY DAY 45 mL 3 024 Active metroNIDAZOLE (Metrogel) 0.75 % vaginal gelIndications:B acterial Vaginosis Insert one applicator into vagina at bedtime for 7 nights 45 g 024 Active Continuous Glucose Sensor (FreeStyle Audrey 2 Sensor) miscIndications: Type 2 diabetes mellitus with hyperglycemia, without long-term current use of insulin ([facility]) Apply 1 sensor every 14 days 2 each 11 024 Active SUMAtriptan (Imitrex) 25 MG tabletIndication s:Injury of head, initial encounter TAKE 1 TAB ORALLY AFTER MIGRAINE ONSET MAY REPEAT AFTER 2HRS IF HEADACHE RETURNS,MAX 200MG IN 24HRS 9 tablet 024 Active Continuous Glucose Digital Product Manager (FreeStyle Audrey 2 [place]) deviceIndication s:Type 2 diabetes mellitus with hyperglycemia, without long-term current use of insulin ([facility]) SCAN sensory EVERY 8 HOURS 1 each 024 Active Glucose 2 g chewable tabletIndication s:Type 2 diabetes mellitus with hyperglycemia, with long-term current use of insulin ([facility]) Chew 2 g Once per day. To use as needed if FS < 70 mg /dl or if having an episode of dizziness. 10 tablet 1 024 Active Multiple Vitamin (multivitamin) tablet Take 1 tablet by mouth Once per day. 90 tablet 3 024 Active cholecalciferol (Vitamin D-3) 25 MCG (1000 UT) tablet Take 1 tablet (25 mcg) by mouth Once per day. 90 tablet 3 024 Active Mounjaro 7.5 MG/0.5ML solution auto-injectorInd ications:Type 2 diabetes mellitus with hyperglycemia, with long-term current use of insulin (CMS/HCC) INJECT ONE PEN (=7.5MG) SUBCUTANEOUSLY ONCE A WEEK DIRECTED 2 mL 5 Active metFORMIN XR (Glucophage-XR) 500 MG 24 hr tablet TAKE 2 TABLETS BY MOUTH TWICE DAILY WITH BREAKFAST AND WITH DINNER. DO NOT BREAK, CRUSH, 360 tablet 1 Active insulin pen needle (BD Pen Needle Rowena 2nd Gen) 32G x 4 mm misc USE WITH INSULIN ONCE A DAY 100 each 11 Active glucose blood (FreeStyle Precision Cruz Test) test stripIndications :Type 2 diabetes mellitus with hyperglycemia, without long-term current use of insulin (CMS/HCC) Use to test blood sugar 3 times daily as needed 50 each 5 024 2024 metFORMIN XR (Glucophage-XR) 500 MG 24 hr tablet TAKE 2 TABLETS BY MOUTH TWICE DAILY WITH BREAKFAST AND WITH DINNER. DO NOT BREAK, CRUSH, DISSOLVE OR CHEW 360 tablet 1 024 2024 Discontinued(R eorder (will not trigger notification to Pharmacy)) insulin pen needle (BD Pen Needle Rowena 2nd Gen) 32G x 4 mm misc USE WITH INSULIN ONCE A DAY 100 each 11 024 2024 Discontinued(R eorder (will not trigger notification to Pharmacy)) oseltamivir (Tamiflu) 75 MG capsuleIndicatio ns:Viral upper [...] both her parents. She had services with [facility] for psychiatry and individual therapy, but [...] Plan (11/30/2023 1:26 PM EDT): -Following with [facility], last seen on -06/30/23 EGD Sen esophagus with mild chronic active inflammation, stomach mild chronic inactive inflammation, normal duodenum. -Repeat EGD in 2 years -Continue pantoprazole Assessment & Plan (09/09/2023 6:00 AM EDT): -Following with [facility], last seen on -06/30/23 EGD Sen [...] considering a bariatric surgery and went to [facility] management clinic. She restarted going to [facility] management [facility]. - She had worked with our diabetes education nurse, Ene Arias from Nov to Dec 2021. - Currently showing good attendance to [facility]; appreciated her effort - Eye exam: 01/24/23 [facility]. No diabetic retinopathy - Comprehensive [...] considering a bariatric surgery and went to [facility] management clinic - She had worked with our diabetes education nurse, Ene Arias from Nov to Dec 2021. - Currently showing good attendance to [facility]; appreciated her effort - Eye exam: 01/24/23 [facility]. No diabetic retinopathy - Comprehensive [...] considering a bariatric surgery and went to [facility] management clinic - She had worked with our diabetes education nurse, Ene Arias from Nov to Dec 2021. - Currently showing good attendance to [facility]; appreciated her effort - Eye exam: 01/24/23 [facility]. No diabetic retinopathy - Comprehensive [...] considering a bariatric surgery and went to [facility] management clinic - She had worked with our diabetes education nurse, Ene Arias from Nov to Dec 2021. - Currently showing good attendance to [facility]; appreciated her effort - Eye exam: 01/24/23 [facility]. No diabetic retinopathy - Comprehensive [...] considering a bariatric surgery and went to [facility] management clinic - She had worked with our diabetes education nurse, Ene Arias from Nov to Dec 2021. - Currently showing good attendance to [facility]; appreciated her effort - Eye exam: 01/24/23 [facility]. No diabetic retinopathy - Comprehensive [...] considering a bariatric surgery and went to [facility] management clinic - She had worked with our diabetes education nurse, Ene Arias from Nov to Dec 2021. - Refer to [facility] - Eye exam: 01/24/23 [facility]. No diabetic retinopathy - Comprehensive [...] considering a bariatric surgery and went to [facility] management clinic - She had worked with our diabetes education nurse, Ene Arias from Nov to Dec 2021. - Eye exam: 01/21/22 [facility]. No diabetic retinopathy - Comprehensive [...] considering a bariatric surgery and went to [facility] management clinic - She had worked with our diabetes education nurse, Ene Arias from Nov to Dec 2021. - Eye exam: 01/21/22 [facility]. No diabetic retinopathy - Comprehensive [...] considering a bariatric surgery and went to [facility] management clinic - She had worked with our diabetes education nurse, Ene Arias from Nov to Dec 2021. - Eye exam: 01/21/22 [facility]. No diabetic retinopathy - Comprehensive [...] considering a bariatric surgery and went to [facility] management clinic - She had worked with our diabetes education nurse, Ene Arias from Nov to Dec 2021. - Eye exam: 01/21/22 [facility]. No diabetic retinopathy - Comprehensive [...] considering a bariatric surgery and went to [facility] management clinic - She had worked with our diabetes education nurse, Ene Arias from Nov to Dec 2021. - Eye exam: 01/21/22 [facility]. No diabetic retinopathy - Comprehensive [...] considering a bariatric surgery and went to [facility] management clinic - She had worked with our diabetes education nurse, Ene Arias from Nov to Dec 2021. - Eye exam: 01/21/22 [facility]. No diabetic retinopathy - Comprehensive [...] 2021. - completed Partial Hospitalization Program at [facility] 11/09/21 - 11/23/21 - current medication: none -Previous medication treatment Hx: venlafaxine was self-discontinued; trazodone was prescribed by psychiatrist while she was attending [facility], but pt self-discontinued due to ineffectivenss; sertraline 50 mg daily, patient self-discontinued. - previously seeing [facility] clinician and waiting for psychiatrist, patient has not been engaged in behavioral health therapy currently. - contacted by [facility] health service and was referred to off-site service - patient has developed healthy coping skills Assessment & Plan (11/30/2023 1:22 PM EDT): - MDD vs. bipolar - severe exacerbation of Depression w/ SI in October 2021. - completed Partial Hospitalization Program at [facility] 11/09/21 - 11/23/21 - current medication: none -Previous medication treatment Hx: venlafaxine was self-discontinued; trazodone was prescribed by psychiatrist while she was attending [facility], but pt self-discontinued due to ineffectivenss; sertraline 50 mg daily, patient self-discontinued. - previously seeing [facility] clinician and waiting for psychiatrist, patient has not been engaged in behavioral health therapy currently. - contacted by [facility] health service and was referred to off-site service - patient has developed healthy coping skills Assessment & Plan (03/07/2023 5:55 AM EST): - MDD vs. bipolar - severe exacerbation of Depression w/ SI in October 2021. - completed Partial Hospitalization Program at [facility] 11/09/21 - 11/23/21 - current medication: none -Previous medication treatment Hx: venlafaxine was self-discontinued; trazodone was prescribed by psychiatrist while she was attending [facility], but pt self-discontinued due to ineffectivenss; sertraline 50 mg daily, patient self-discontinued. - previously seeing [facility] clinician and waiting for psychiatrist, patient has not been engaged in behavioral health therapy currently. - will consider referring back Assessment & Plan (11/12/2022 4:17 PM EDT): - severe exacerbation of Depression w/ SI in October 2021. - completed Partial Hospitalization Program at [facility] 11/09/21 - 11/23/21 - Medication: Sertraline 50 mg daily -Previous medication treatment Hx: venlafaxine was self-discontinued; trazodone was prescribed by psychiatrist while she was attending [facility], but pt self-discontinued due to ineffectivenss - still on waiting list for outpatient appt with psychiatrist and therapist. - Able to contract her safety today - Continue BHS with [facility] Assessment & Plan (08/30/2022 12:43 PM EDT): - severe exacerbation of Depression w/ SI in October 2021. - completed Partial Hospitalization Program at [facility] 11/09/21 - 11/23/21 - Medication: Sertraline 50 mg daily -Previous medication treatment Hx: venlafaxine was self-discontinued; trazodone was prescribed by psychiatrist while she was attending [facility], but pt self-discontinued due to ineffectivenss - still on waiting list for outpatient appt with psychiatrist and therapist. - Able to contract her safety today - Continue BHS with [facility] Assessment & Plan (06/24/2022 11:25 AM EDT): - severe exacerbation of Depression w/ SI in October 2021. - completed Partial Hospitalization Program at [facility] 11/09/21 - 11/23/21 - Medication treatment Hx --venlafaxine was self-discontinued --trazodone was prescribed by psychiatrist while she was attending [facility], but pt self-discontinued due to ineffectivenss - still on waiting list for outpatient appt with psychiatrist and therapist. - Able to contract her safety today - Continue BHS with [facility] Assessment & Plan (05/21/2022 12:36 PM EDT): - severe exacerbation of Depression w/ SI in October 2021. - completed Partial Hospitalization Program at [facility] 11/09/21 - 11/23/21 - Medication treatment Hx [...] 2021. - completed Partial Hospitalization Program at [facility] 11/09/21 - 11/23/21 - Medication treatment Hx [...] 2021. - completed Partial Hospitalization Program at [facility] 11/09/21 - 11/23/21 - Medication treatment Hx [...] - previously participated weight management program at [facility], recently started seeing them again. - goal of norbertoht being 171 lbs to get surgery done. - continue working on lifestyle modifications - associated comorbidity: STELLA, DM2 Assessment & Plan (11/26/2023 2:16 PM EDT): - previously participated weight management program at [facility] - continue working on lifestyle modifications - associated comorbidity: STELLA, DM2 Assessment & Plan (11/18/2022 7:07 AM EDT): - previously participated weight management program at [facility] - continue working on lifestyle modifications - associated comorbidity: STELLA, DM2 Assessment & Plan (04/04/2022 7:14 PM EST): - previously participated weight management program at [facility] - continue working on lifestyle modifications - associated comorbidity: STELLA, DM2 Assessment & Plan (02/22/2022 4:37 PM EST): - previously participated weight management program at [facility] - continue working on lifestyle modifications - [...] 02/22/2022 Type 2 diabetes mellitus without complication 03/25/1902/18/2022 Encounters Date Type Department Care Team Description 03/23/2024 Telephone [facility] [address] [place] [address] Cinthya Ray MD Nurse Triage 03/23/2024 Refill [facility] [address] [place] [address] Cinthya Ray MD 03/12/2024 Orders Only [facility] External Provider, [facility] 03/12/2024 Refill [facility] [address] [place] [address] Cinhtya Ray MD Type 2 diabetes mellitus with hyperglycemia, without long-term current use of insulin ([facility]) 03/05/2024 Orders Only [facility] [address] [place] [address] Cinthya Ray MD Type 2 diabetes mellitus with other specified complication, with long-term current use of insulin ([facility]) (Primary Dx) 03/04/2024 Telephone [facility] [address] [place] [phone] Janey Jaramillo [place] march recall 03/02/2024 10:00 AM EST [facility] [address] [address] Sonali Tellez MD Cough in adult patient 02/26/2024 2:00 PM EST [facility] [place] [address] [place] [address] Sonali Tellez MD Viral upper respiratory infection (Primary Dx); Influenza 02/23/2024 Orders Only [facility] External Provider, [facility] 02/20/2024 2:00 PM EST Office Visit [facility] [address] [place] [address] Thompson [facility] 02/16/2024 Refill [facility] [address] [place] [address] Mayito Acuña, PharmD Type 2 diabetes mellitus with hyperglycemia, with long-term current use of insulin ([facility]) 02/13/2024 Travel 02/10/[address] [place] [address] Cinthya Ray MD Referral 02/05/2024 Orders Only [address] [place] [address] Cinthya Ray MD Chronic left shoulder pain (Primary Dx) 01/31/2024 Orders Only [address] [address] Cinthya Ray MD Vitamin D deficiency (Primary Dx) 01/30/2024 8:00 AM EST Office Visit [facility] [address] [place] [address] Demario Bocanegra Dental calculus (Primary Dx) 01/28/[address] [address] Cinthya Ray MD 01/27/2024 3:00 PM EST Office Visit [address] [address] Cinthya Ray MD Type 2 diabetes mellitus with hyperglycemia, with long-term current use of insulin ([facility]) (Primary Dx); Chronic left shoulder pain; Decreased [...] Generic External Data 01/25/2024 Travel 01/22/[address] [address] Janey Jaramillo [place] chart prep 01/20/2024 Travel 01/16/2024 3:30 PM EST Telemedicine [address] [address] Mayito Acuña, PharmD Type 2 diabetes mellitus with hyperglycemia, with long-term current use of insulin ([facility]) (Primary Dx) 12/30/2023 Telephone [facility] [address] [place] [phone] Cinthya Ray MD callback request 12/30/2023 Telephone [facility] [address] [place] [phone] Alex Magali [place] 12/29/2023 3:20 PM EST Office Visit [facility] [address] [place] [phone] Zee Bocanegra MD Dizziness (Primary Dx); Type 2 diabetes mellitus with hyperglycemia, with long-term current use of insulin ([facility]) from Last 3 Months Immunizations Name Administration Dates Next Due DTP 05/12/1997, 4,1992,08/16,1992 Hep A, Adult 03/14/2023,11/10/2017 Hep A, ped/adol, 2 dose 01/06/2012 Hep B, Adolescent or Pediatric 12/22/1995,1994,10/19/1993 Hib ([facility]) 05/14/1993, 3,1992,04/12 IPV 05/12/1997, 4,1992,04/12 Influenza injectable [...] Info) Description 04/23/2024 3:30 PM EDT Telemedicine [facility] [address] [place] [address] Mayito Acuña, PharmD [address] [place] [address] 07/30/2024 3:00 PM EDT Office Visit [facility] [address] [place] [address] Demario Bocanegra Health Maintenance Due Date Last [...] 5 Years) and At-Risk Patients (6 to 49) Years) Completed 04/08/2023, 04/10/2017 HIV Screening Completed [...] 10:46 AM EST) No Mayito Acuña PharmD Procedures Procedure Name Priority Date/Time Associated Diagnosis Comments MR SHOULDER WO CONTRAST LEFT Routine 03/12/2024 7:15 PM EST POCT INFLUENZA A (ID NOW RAPID MOLECULAR) [...] Routine 02/23/2024 8:41 AM EST 13 DO RESIN-BASED COMPOSITE - 2 SURF, POSTERIOR Routine 02/20/2024 2:00 PM EST CASE PRESENTATION, DETAILED AND EXTENSIVE TREATMENT PLANNING Routine 01/30/2024 8:00 AM EST ORAL HYGIENE INSTRUCTIONS Routine 01/30/2024 8:00 AM EST PROPHYLAXIS - ADULT Routine 01/30/2024 8 :00 AM EST XR SHOULDER 2+ VIEWS LEFT Routine 01/27/2024 3:56 PM EST Chronic left shoulder pain XR CHEST 2 VIEWS Routine 01/26/2024 10:4 7 AM EST VITAMIN B1 Routine 01/26/2024 10:46 AM EST [...] hyperglycemia, with long-term current use of insulin ([facility]) POCT GLUCOSE Routine 12/29/2023 1:26 PM EST Type 2 diabetes mellitus with hyperglycemia, with long-term current use of insulin (CMS/HCC) HEPATITIS C AB W/REFL TO HCV RNA, [...] PM EDT DIABETES EYE EXAM Routine 01/24/2023 INTRAORAL - COMPLETE SERIES OF RADIOGRAPHIC IMAGES Routine 08/08/2022 4:00 PM EDT Encounter for dental examination COMPREHENSIVE ORAL EVALUATION - NEW OR ESTABLISHED PATIENT Routine 08/08/2022 4:00 PM EDT THINPREP IMAGING SYSTEM PAP Routine 07/24/2021 4:01 PM EDT from Last 3 Months or Most Recently Relevant to Health Maintenance Results * MR Shoulder w/o Contrast Left (03/12/2024 7:15 PM EST) Anatomical Region Laterality Modality Upper Extremities, Shoulder Left Magn etic Resonance 03/12/2024 7:15 PM EST Narrative 03/15/2024 10:07 AM EST ? [facility] ?[address] ?[place] [address] ? Magnetic Resonance Report ? Signed ? Patient: Sonali Gill ?MR#: ?? [id number] ? : 1990 ?Acct:[id number] ? Age/Sex: 34 / F ?ADM Date: 01/31/25 ? Loc: HO.MRI ? Attending Dr: Al Hays MD ? Ordering Physician: Al Hays MD ?? Date of Service: 03/12/24 ?? Procedure(s): MR shoulder LT wo con ?? Accession Number(s): [id number] ? cc: Al Hays MD; Cinthya Ray MD ? EXAMINATION: MRI LEFT SHOULDER WITHOUT CONTRAST ? HISTORY: M25.312 - Other instability, left shoulder ? COMPARISON: Correlation is made with plain films of the left shoulder ?? dated 01/27/2024. ? TECHNIQUE: ??Coronal T1, T2, and fat suppressed T2, axial fat suppressed ?? proton density, and sagittal T2 weighted MR images of the left shoulder ?? were obtained. ? FINDINGS: ?? Bone marrow signal intensity is normal. There is no glenohumeral joint ?? effusion. The glenohumeral and acromioclavicular joints are maintained. ? The tendons of the rotator cuff are intact. No tear is seen. There is ?? no fluid in the subdeltoid/subacromial bursa. Muscle bulk is normal. ? The biceps tendon is normally located. The glenoid labrum is grossly ?? unremarkable in appearance, although evaluation is limited by lack of a ?? joint effusion. ? MR/MR shoulder LT wo con ?? IMPRESSION: ?? Unremarkable MRI of the left shoulder. ? Electronically signed by: ??Anand Vera MD ??03/15/2024 10:04 AM EST ?? RP ? Dictated By: ?Anand Vera MD ? Signed By: ?<Electronically signed by Anand Vera MD in OV> ?03/15/24 1004 ? DD/ ? TD/TT: 03/12/24 1940 ? Legislative Director: ? Procedure Note Alfie Walden - 03/15/[address] [address] Magnetic Resonance Report Signed Patient: Jeremy Gill#: [id number] : 1990Acct:[id number] Age/Sex: 34 / FADM Date: 03/12/24 Loc: HO.MRI Attending Dr: Al Hays MD Ordering Physician: Al Hays MD Date of Service: 03/12/24 Procedure(s): MR shoulder LT wo con Accession Number(s): [id number] cc: Al Hays MD; Cinthya Ray MD EXAMINATION: MRI LEFT SHOULDER WITHOUT CONTRAST HISTORY: M25.312 - Other instability, left shoulder COMPARISON: Correlation is made with plain films of the left shoulder dated 01/27/2024. TECHNIQUE: Coronal T1, T2, and fat suppressed T2, axial fat suppressed proton density, and sagittal T2 weighted MR images of the left shoulder were obtained. FINDINGS: Bone marrow signal intensity is normal. There is no glenohumeral joint effusion. The glenohumeral and acromioclavicular joints are maintained. The tendons of the rotator cuff are intact. No tear is seen. There is no fluid in the subdeltoid/subacromial bursa. Muscle bulk is normal. The biceps tendon is normally located. The glenoid labrum is grossly unremarkable in appearance, although evaluation is limited by lack of a joint effusion. MR/MR shoulder LT wo con IMPRESSION: Unremarkable MRI of the left shoulder. Electronically signed by: Anand Vera MD 03/15/2024 10:04 AM EST Dictated By: Anand Vera MD Signed By: <Electronically signed by Anand Vera MD in OV> 03/15/24 1004 DD/ 14 TD/TT: 03/12/241939 Legislative Director: [facility] External Provider IMG MRI PROCEDURES Final Result * POCT Rapid Influenza B SEBASTIAN ID NOW (03/02/2024 10:18 AM EST) Only the most recent of2 resultswithin the time period is included. [facility] Influenza B Negative Negative, Indeterminate [facility] Swab 03/02/2024 10:1 8 AM EST Sonali Tellez MD POINT OF CARE TEST ENTER/E DIT ORDERABLES Final Result Performing Organization Address [facility] Co de Phone Number [facility] [address] [place] [phone] * POCT Rapid Influenza A SEBASTIAN ID NOW (03/02/2024 10:18 AM EST) Only the most recent of2 resultswithin the time period is included. [facility] Influenza A Negative Negative, Indeterminate [facility] Swab 03/02/2024 10:1 8 AM EST Sonali Tellez MD POINT OF CARE TEST ENTER/E DIT ORDERABLES Final Result Performing Organization Address [facility] de Phone Number [facility] [address] [place] [phone] * POCT Rapid Covid-19 BinaxNOW (03/02/2024 10:18 AM EST) Only the most recent of2 resultswithin the time period is included. [facility] Rapid COVID Ag Negative Swab 03/02/2024 10:1 8 AM EST Result [facility] Sonali Tellez MD POINT OF CARE TEST ENTER/E DIT ORDERABLES Final Result * POCT rapid strep A manually resulted (03/02/2024 10:18 AM EST) [facility] Rapid Strep A Screen Negative Negative, None Detected Swab 03/02/2024 10:1 8 AM EST Sonali [...] EST Narrative 02/24/2024 10:28 AM EST ? [facility] ?[address] ?[place] [address] ? Ultrasound Report ? Signed ? Patient: Sonali Gill ?MR#: ?? [id number] ? : 1990 ?Acct:[id number] ? Age/Sex: 33 / F ?ADM Date: 02/23/24 ? Loc: HO.US ? Attending Dr: Nate Mijares MD ? Ordering Physician: Nate Mijares MD ?? Date of Service: 02/23/24 ?? Procedure(s): US abdomen comp w elastography ?? Accession Number(s): [id number] ? cc: Nate Mijares MD; Cinthya Ray [...] DD/ 0841 ? TD/TT: 02/23/24 0854 ? Legislative Director: ? Procedure Note Alfie Walden - 02/24/[address] [address] Ultrasound Report Signed Patient: Jose Jeremy Rosa#: [id number] : 1990Acct:[id number] Age/Sex: 33 / FADM Date: 02/23/24 Loc: HO.US Attending Dr: Nate Mijares MD Ordering Physician: Nate Mijares MD Date of Service: 02/23/24 Procedure(s): US abdomen comp w elastography Accession Number(s): [id number] cc: Nate Mijares MD; Cinthya Ray MD [...] 02/24/24 1025 DD/ 0841 TD/TT: 02/23/24 0854 Legislative Director: [facility] External Provider IMG US PROCEDURES Final Result * XR Shoulder 2+ Views Left (01/27/2024 3:56 PM EST) Anatomical Region Laterality Modality Upper Extremities, Shoulder Left Radi ographic Imaging 01/27/2024 3:56 PM EST Narrative 01/28/2024 10:15 AM EST ?[facility] [facility] ?[address] ?[place] [address] ?XRay Report ? Signed ? Patient: Garcia Moe,Yamarie ?MR#: ?? [id number] ? : 1990 ?Acct:[id number] ? Age/Sex: 33 / F ?ADM Date: 01/27/24 ? Loc: HO.HHCX ? Attending Dr: Cinthya Ray MD ? Ordering Physician: Cinthya Ray MD ?? Date of Service: 01/27/24 ?? Procedure(s): XR shoulder LT min 2V ?? Accession Number(s): [id number] ? cc: Cinthya Ray MD ? EXAMINATION: [...] MD ? Signed By: ?<Electronically signed by Ruthei Calderón MD in OV> ? 01/28/24 1012 ? DD/ 1556 ? TD/TT: 01/27/24 1600 ? Legislative Director: ? Procedure Note Alfie Walden - 01/28/[address] [address] XRay Report Signed Patient: Jose RosaRoscoeR#: [id number] : 1990Acct:[id number] Age/Sex: 33 / FADM Date: 01/27/24 Loc: HO.HHCX Attending Dr: Cinthay Ray MD Ordering Physician: Cinthya Ray MD Date of Service: 01/27/24 Procedure(s): XR shoulder LT min 2V Accession Number(s): [id number] cc: Cinthya Ray MD EXAMINATION: XR SHOULDER, [...] Ruthie Calderón MD 01/28/2024 10:12 AM EST RP Dictated By: Ruthie Calderón MD Signed By: <Electronically signed by Ruthie Calderón MD in OV> 01/28/24 1012 DD/ 1556 TD/TT: 01/27/24 1600 Legislative Director: Cinthya Ray MD IMG XR PROCEDURES Edited Result - Final * XR Chest 2 Views (01/26/2024 10:47 AM EST) Anatomical Region Laterality Modality Chest Radiographic Viky ging 01/26/2024 10:4 7 AM EST Narrative 03/10/2024 4:39 PM EST ? [facility] ?[address] ?[place] [address] ?XRay Report ? Signed ? Patient: Sonali Gill ?MR#: ?? [id number] ? : 1990 ?Acct:[id number] ? Age/Sex: 33 / F ?ADM Date: 12/16/24 ? Loc: HO.XRAY ? Attending Dr: Nate Mijares MD ? Ordering Physician: Nate Mijares MD ?? Date of Service: 01/26/24 ?? Procedure(s): XR chest 2V ?? Accession Number(s): [id number] ? cc: Nate Mijares MD; Cinthya Ray MD ? EXAMINATION: ?? XR CHEST ? CLINICAL INFORMATION: ?? Obesity, unspecified E66.9. Going through weight loss program. ? COMPARISON: ?? XR Chest 02/28/2020 ? TECHNIQUE: ?? 2 views of the chest were obtained. ? FINDINGS: ?? No airspace consolidation or pneumothorax seen. Hilar regions and ?? pulmonary vascularity unremarkable and not appreciably changed.The ?? pleural surfaces are clear. ? Small thoracic spondylitic changes. ? XR/XR chest 2V ?? IMPRESSION: ?? No evidence for acute process. No significant change since previous ?? evaluation. ? Electronically signed by: ??Esa Glover MD ??03/10/2024 04:36 PM EST ?? RP ? Dictated By: ?Esa Glover ? Signed By: ?<Electronically signed by Esa Glover in OV> ?03/10/24 1636 ? DD/ 1047 ? TD/TT: 01/26/24 1055 ? Legislative Director: ? Procedure Note Donotuseinterpreter, Image - 03/10/2024 [place] [address] XRay Report Signed Patient: Roscoe GillR#: [id number] : 1990Acct:[id number] Age/Sex: 33 / FADM Date: 01/26/24 Loc: HERNE[facility]O Attending Dr: Nate Mijares MD Ordering Physician: Nate Mijares MD Date of Service: 01/26/24 Procedure(s): XR chest 2V Accession Number(s): [id number] cc: Nate Mijares MD; Cinthya Ray MD EXAMINATION: XR CHEST CLINICAL INFORMATION: Obesity, unspecified E66.9. Going through weight loss program. COMPARISON: XR Chest 02/28/2020 TECHNIQUE: 2 views of the chest were obtained. FINDINGS: No airspace consolidation or pneumothorax seen. Hilar regions and pulmonary vascularity unremarkable and not appreciably changed.The pleural surfaces are clear. Small thoracic spondylitic changes. XR/XR chest 2V IMPRESSION: No evidence for acute process. No significant change since previous evaluation. Electronically signed by: Esa Glover MD 03/10/2024 04:36 PM EST Dictated By: Esa Glover Signed By: <Electronically signed by Esa Glover in OV> 03/10/24 1636 DD/ 1047 TD/TT: 01/26/24 1055 Legislative Director: [facility] External Provider IMG XR PROCEDURES Edited Result - Final * (ABNORMAL) Vitamin D, 25-Hydroxy, Total, Immunoassay (01/26/2024 10:46 AM EST) Vitamin D 25-OH Total 15.9(L) >30 ng/mL [facility] Comment:Health Based Referen ce Values*< 20 ng/mL [id number] ng/mL Insufficient> 30 ng/mL Sufficient*Jaylon BLUNT. N [...] Provider LAB BLOOD ORDERAB LES Final Result [facility] [address] [place] [phone] * Vitamin B12 (Cobalamin) and Folate Panel, Serum (01/26/2024 10:46 AM EST) Vitamin B12 537 200 - 900 pg/mL [facility] Comment:NORMAL 200-900 PG/ML INDETERMINATE 160-199 PG/ML DEFICIENT < 160 PG/ML Folate 7.4 > or = 4.0 ng/mL [facility] Comment:Reference Values:> o r = 4.0 ng/mL< 4.0 ng/mL suggests folate deficiency Methotrexate, aminopterin and folinic acid(leucovorin) are chemotherapeutic agents whose molecularstructures are similar to folate; therefore, the Architectfolate assay cannot be used for patients using these drugs. 01/26/2024 10:4 6 AM EST 01/26/2024 10:46 AM EST us Generic External Data Provider LAB BLOOD ORDERAB LES Final Result [facility] [address] [place] [address] [phone] * (ABNORMAL) CBC auto differential (01/26/2024 10:46 AM EST) White Blood Count 9.1 4.8 - 10.8 X10*3/uL [facility] Red Blood Count 4.78 4.20 - 5.50 X10*6/uL [facility] Hemoglobin 12.0 12.0 - 16.0 g/dl [facility] Hematocrit 37.7 37.0 - 47.0 % [facility] Mean Corpuscular Volume 78.9(L) 80.0 - 98.0 fL [facility] Mean Corpuscular Hemoglobin 25.1(L) 27.0 - 33.0 pg [facility] Mean Corpuscular HGB Conc 31.8 31.0 - 35.0 g/dl [facility] Red Cell Distribution Width 13.4 11.0 - 16.0 % [facility] Platelet Count 326 160 - 400 X10*3/uL [facility] Mean Platelet Volume 9.3(L) 9.4 - 12.3 fL [facility] Neutrophils Percent Auto 63.6 45 - 73 % [facility] Imm Gran Pct Auto 0.2 0.0 - 0.4 % [facility] Lymphocytes Percent Auto 29.9 20 - 40 % [facility] Monocytes Percent Auto 4.9 2 - 11 % [facility] Eosinophils Percent Auto 1.0 0 - 4 % [facility] Basophils Percent Auto 0.4 0 - 2 % [facility] NRBC Pct Auto 0.0 0.0 - 0.2 /100WBC [facility] Neutrophils Absolute Auto 5.8 2.0 - 8.3 x10*3/uL [facility] Imm Gran Abs Auto 0.02 0.00 - 0.03 X10*3/uL [facility] Lymphocytes Absolute Auto 2.7 1.2 - 4.9 X10*3/uL [facility] Monocytes Absolute Auto 0.4 0.1 - 1.2 X10*3/uL [facility] Eosinophils Absolute Auto 0.1 0.0 - 0.4 X10*3/uL [facility] Basophils Absolute Auto 0.0 0.0 - 0.2 X10*3/uL [facility] NRBC Abs Auto 0.000 0.0 - 0.012 X10*3/uL [facility] 01/26/2024 10:4 6 AM EST 01/26/2024 10:46 AM EST us Generic External Data Provider LAB BLOOD ORDERAB LES Final Result Performing Organization Address [facility] de Phone Number [facility] [address] [place] [phone] * (ABNORMAL) Insulin (01/26/2024 10:46 AM EST) Insulin 186(H) 2 - 29 uU/mL [facility] Comment:This test was perfor med using [...] LES Final Result Performing Organization Address City/[facility]/ZIP Co de Phone Number [facility] [address] [place] [phone] * (ABNORMAL) Zinc (01/26/2024 10:46 AM EST) Zinc 54(A) 60 - 130 mcg/dL [facility] Comment:This test was develo ped and its analytical performancecharacteristics have been determined by [facility]. It hasnot been cleared or approved by the U.S. Food and DrugAdministration. This assay has been validated pursuantto the CLIA regulations and is used for clinicalpurposes.THIS TEST WAS PERFORMED AT:[id number] [place] [address]OPPFGUBNIKKY MANNING MD,PHD 01/26/2024 10:4 6 AM EST 01/26/2024 10:46 AM EST us Generic External Data Provider LAB BLOOD ORDERAB LES Final Result [facility] [address] [place] [phone] * Vitamin A (01/26/2024 10:46 AM EST) Vitamin A (Retinol) 41 38 - 98 mcg/dL [facility] Comment:Vitamin supplementat ion within 24 hours prior toblood draw may affect the accuracy of the results.This test was developed and its analytical performancecharacteristics have been determined by [facility], [place]. It hasnot been cleared or approved by the U.S. Food and DrugAdministration. This assay has been validated pursuantto the CLIA regulations and is used for clinicalpurposes.THIS TEST WAS PERFORMED AT:[id number] [place] [address]OCFUVDKNIKKY MANNING MD,PHD 01/26/2024 10:4 6 AM EST 01/26/2024 10:46 AM EST us Generic External Data Provider LAB BLOOD ORDERAB LES Final Result Performing Organization Address [facility] Co de Phone Number [facility] [address] [place] [phone] * (ABNORMAL) Vitamin B1 (01/26/2024 10:46 AM EST) Vitamin B1 <6(A) 8 - 30 nmol/L [facility] Comment:Vitamin supplementat ion within 24 hours prior toblood draw may affect the accuracy of the results.This test was developed and its analytical performancecharacteristics have been determined by [employer] [place], [place]. It hasnot been cleared or approved by the U.S. Food and DrugAdministration. This assay has been validated pursuantto the CLIA regulations and is used for clinicalpurposes.THIS TEST WAS PERFORMED AT:[id number] [place] [address]INFZHXXNIKKY MANNING MD,PHD 01/26/2024 10:4 6 AM EST 01/26/2024 10:46 AM EST Generic External Data Provider LAB BLOOD ORDERAB LES Final Result Performing Organization Address [facility] Co de Phone Number [facility] [address] [place] [phone] * (ABNORMAL) Hemoglobin A1c (01/26/2024 10:46 AM EST) Hemoglobin A1c 6.1(H) <6.0 % [facility] Comment:Hemoglobin A1C Refer ence Range Adults: 4.8 - 6.0 % Non diabetic: < 6.0 % Goal: < 7.0 %Additional Action Suggested: > 8.0 %Note: Hemoglobin A1c results are invalid for patients with abnormal amounts of HbF. Blood transfusions may impact the HbA1c concentration in the patient sample. Estimated Average Glucose 128 mg/dL [facility] Comment:eAG = Estimated ave rage glucose which is %A1C expressed asaverage glucose, using the formula of the E5I-EnzrzgzBohxshl Glucose study (ADAG), Diabetes Care, Vol.31,#8,Sep. 2007 01/26/2024 10:4 6 AM EST 01/26/2024 10:46 AM EST us Generic External Data Provider LAB BLOOD ORDERAB LES Final Result Performing Organization Address [facility] Co de Phone Number [facility] [address] [place] [phone] * Ferritin (01/26/2024 10:46 AM EST) Ferritin 15 10 - 122 ng/mL [facility] 01/26/2024 10:4 6 AM EST 01/26/2024 10:46 AM EST Generic External Data Provider LAB BLOOD ORDERAB LES Final Result Performing Organization Address [facility] de Phone Number [facility] [address] [place] [phone] * POCT urinalysis dipstick manually resulted (12/29/2023 2:42 PM EST) Color, UA Yellow Clarity, UA Clear Glucose, UA Negative Bilirubin, UA Trace Comment:SMALL Ketones, UA Negative Spec Grav, UA 1.030 Blood, UA Negative Negative, None Detected pH, UA 5.5 Protein, UA Negative Urobilinogen, UA 0.2 Leukocytes, UA Negative Negative, Rare, Trace Nitrite, UA Negative Negative, None Detected Urine 12/29/2023 2:42 PM EST Zee Bocanegra MD POINT OF CARE TEST [...] 11:30 AM EDT) Triglycerides 145 <150 mg/dL [facility] Comment:Desirable Triglyceri de: less than 150 mg/dLBorderline High Triglyceride 150-199 mg/dLHigh Triglyceride: 200-499 mg/dLVery High Triglyceride: greater than or equal to 5OO mg/dL Cholesterol 152 <200 mg/dL [facility] Comment:Desirable Cholestero l: less than 200 mg/dLBorderline High Cholesterol: 200-239 mg/dLHigh Cholesterol: greater than 239 mg/dL LDL Cholesterol Calculated 91 <100 mg/dL [facility] Comment:Desirable LDL: less than 100 mg/dLNear Optimal/Above Optimal LDL: 110- 129 mg/dLBorderline High LDL: 130-159 mg/dLHigh LDL: 160-189 mg/dLVery High LDL: greater than or equal to 190 mg/dL HDL Cholesterol 32(L) >40 mg/dL [facility] Comment:Desirable HDL: great er than 40 mg/dL Note: This HDL assay may give artificially low results in patients with liver disease. Blood 11/26/2023 11:3 0 AM EDT 11/26/2023 1:20 PM EDT us Cinthya Ray MD LAB BLOOD ORDERABLES Final Resul t [facility] [address] [place] [phone] * Hepatitis C Antibody with Reflex to HCV, RNA, Quantitative, Real-Time PCR (11/26/2023 11:30 AM EDT) Hepatitis C Antibody Nonreactive Nonreactive [facility] Comment:Antibodies to HCV no t detected; does not exclude early acuteHCV infection. Blood Venous blood specimen / Unknown 11/26/2023 11:30 AM EDT 11/26/2023 1:20 PM EDT Cinthya Ray MD LAB BLOOD ORDERABLES Final Resul t Performing Organization Address City/[facility]/ZIP Co de Phone Number [facility] [address] [place] [phone] * HIV-1/2 Antigen and Antibodies, Fourth Generation, with Reflexes (11/26/2023 11:30 AM EDT) HIV AB/AG Nonreactive Nonreactive [facility] Comment:HIV-1 p24 Ag and/or HIV-1/HIV-2 Ab not detected.A test result that is nonreactive does not exclude thepossibility of exposure to or infection with HIV-1 and/orHIV-2. Nonreactive results in this assay for individualswith prior exposure to HIV-1 and/or HIV-2 may be due toantigen and antibody levels that are below the limit ofdetection of this assay.The [employer] HIV Ag/Ab Combo assay result andsupplemental assay results should be interpreted inconjunction with the patient's clinical presentation,history and other laboratory results. If the results areinconsistent with clinical evidence, additional testing issuggested to confirm the result. Blood Venous blood specimen / Unknown 11/26/2023 11:30 AM EDT 11/26/2023 1:20 PM EDT us Cinthya Ray MD LAB BLOOD ORDERABLES Final Resul t Performing Organization Address City/[facility]/ZIP Co de Phone Number [facility] [address] [place] [phone] * Albumin, Random Urine W/Creatinine (11/26/2023 12:00 AM EDT) Creatinine, Urine 238.24 mg/dL [facility] Microalbumin Urine 23.0 mg/L [facility] Microalbum Creatinine Ratio Ur 9.6 <30 ug/mg cr [facility] Comment:Albumin/Creatinine R atio Reference Ranges: Normal: < 30 ug/mg creatinine Microalbuminuria: 30 - 300 ug/mg creatinineClinical Albuminuria: > 300 ug/mg creatinine Urine 11/26/2023 11/26/2023 us Cinthya Ray MD LAB URINE ORDERABLES Final Resul t [facility] [address] [place] [phone] * Hm Diabetes Eye Exam (01/24/2023) Eye Exam Normal Normal Comment:[facility] 01/24/2023 us Historical Provider HEALTH MAINTENANCE Final Result * THINPREP TIS [...] has been evaluated with computer assisted technology. [facility] Assisted Living Director : SEE COMMENT [facility] Comment: MXD, CT (ASCP) CT screening location: [address] ??[phone] Interpretation/R esult: Negative for intraepithelial lesion or malignancy. [facility] LMP: NONE [facility]IVEN [facility] Prev. BX: NONE [facility]IV[facility] Prev. PAP: NONE GIVEN [facility] SOURCE: None given [facility] Statement Of Adequacy: SEE COMMENT [facility] Comment: Satisfactory for evaluation. Endocervical/transformation zone component present. Age and/or menstrual status not provided 07/24/2021 4:01 PM EDT us Cinthya Ray MD LAB PATHOLOGY ORDERABLES Final R esult [facility] [address] from Last 3 Months or Most Recently Relevant to Health Maintenance Insurance [facility] C3 DENTAL-[facility] MEDICAID STAND ADULT Care Teams Fiscal Assistant Relationship Specialty Start Date End Date Cinthya Ray MD [address] [place] [address] PCP - General Family Medicine 10/23/11 Mayito Acuña, PharmD [address] [place] [address] Pharmacist Internal Medicine 03/07/23
--- OUTSIDE RECORDS SUMMARY | 2024-03-26 14:23 | XMS_ITS | Encounter Summary ---
Author Organization [facility] Address [address] [place] [address] 7 [place] [address] Care Team Providers Care District Superintendent Name Role Phone Cinthya Ray MD Primary Care Provider Mayito Acuña PharmD Unavailable [phone] Reason for Visit * Reason Onset Date Comments Med Refill 03/23/2024 Encounter Details Date Type Department Care Team (Late st Contact Info) Description 03/23/2024 Refill [facility] [address] [place], [place] [phone] Cinthya Ray MD [address] [place], [place] [phone] Social History Tobacco Use Types Packs/Day Years [...] Info) Description 04/23/2024 3:30 PM EDT Telemedicine [facility] [address] [place] [phone] Mayito Acuña PharmD [address] [place] [address] 07/30/2024 3:00 PM EDT Office Visit [facility] [address] [place] [address] Demario Bocanegra documented as of this encounter [...] documented as of this encounter Care Teams District Superintendent Relationship Specialty Start Date End Date Cinthya Ray MD [address] [place] [address] PCP - General Family Medicine 10/23/11 Mayito Acuña, DyanD [address] [place] [address] Pharmacist Internal Medicine 03/07/23 documented as of this encounter
--- OUTSIDE RECORDS SUMMARY | 2024-03-26 14:23 | XMS_ITS | Encounter Summary ---
Author Organization [employer] Address [address] [facility] 7 [place] [address] Care Team Providers Care Software Test Specialist Name Role Phone Cinthya Ray MD Primary Care Provider [phone] Mayito Acuña PharmD Unavailable [phone] Encounter Details Date Type Department Care Team (Late st Contact Info) Description 03/05/[address] [facility] [address] [place], [place] [phone] Cinthya Ray MD [address] [place], [place] [phone] Type 2 diabetes mellitus with other specified complication, with long-term current use of insulin ([facility]) (Primary Dx) Social History Tobacco Use [...] the past 12 months, has t he [employer], gas, oil or water company threatened to [...] Description 04/23/2024 3:[address] [facility] [address] [place] [address] Mayito Acuña PharmD [address] [place] [address] 07/30/2024 3:00 PM EDT Office Visit [facility] [address] [place] [address] Demario Bocanegra documented as of this encounter [...] complication, with long-term current use of insulin ([facility])- Primary documented in this encounter Additional Health Concerns Assessment Noted Time PHQ-9 Depression Total Score: 11 024 9:48 AM EDT documented as of this encounter Care Teams Software Test Specialist Relationship Specialty Start Date End Date Cnithya Ray MD [address] [place] [address] PCP - General Family Medicine 10/23/11 Mayito Acuña PharmD [address] [place] [address] Pharmacist Internal Medicine 03/07/23 documented as of this encounter
--- OUTSIDE RECORDS SUMMARY | 2024-03-26 14:23 | XMS_ITS | Encounter Summary ---
Author Organization [employer] Address [address] [place] [address] [address] [place] [address] Care Team Providers Care Timers Inspector Name Role Phone Cinthya Ray MD Primary Care Provider [phone] Mayito Acuña PharmD Unavailable [phone] Reason for Visit * Reason Onset Date Comments april recall 03/04/2024 Encounter Details Date Type Department Care Team (Late st Contact Info) Description 03/04/2024 Telephone [facility] [address] [place] [address] Janey Jaramillo [place] april recall Social History [...] Info) Description 04/23/2024 3:30 PM EDT Telemedicine [facility] [address] [place] [address] Mayito Acuña PharmD [address] [place] [address] 07/30/2024 3:00 PM EDT Office Visit [facility] [address] [place] [address] Demario Bocanegra documented as of this encounter [...] documented as of this encounter Care Teams Timers Inspector Relationship Specialty Start Date End Date Cinthya Ray MD [address] [place] [address] PCP - General Family Medicine 10/23/11 Mayito Acuña PharmD [address] [place] [address] Pharmacist Internal Medicine 03/07/23 documented as of this encounter
--- OUTSIDE RECORDS SUMMARY | 2024-03-26 14:23 | XMS_ITS | Encounter Summary ---
Author Organization [employer] Address 75 [facility] 7 [place] [address] Care Team Providers Care Health Program Manager Name Role Phone Cinthya Ray MD Primary Care Provider [phone] Mayito Acuña PharmD Unavailable [phone] Reason for Visit * Reason Comments Abdominal Pain Fever Headache Diarrhea Encounter Details Date Type Department Care Team ([facility] st Contact Info) Description 02/26/2024 2:00 PM EST Office Visit [facility] [address] [place] [address] [phone] Sonali Tellez MD [address] [place] [address] Viral upper respiratory infection (Primary Dx); Influenza [...] the past 12 months, has t he [employer], gas, oil or water company threatened to [...] 04/23/2024 3:30 PM EDT Telemedicine [facility] [address] [place] [address] Mayito Acuña PharmD [address] [place] [address] 07/30/2024 3:00 PM EDT Office Visit [facility] ADULT DENTAL [address] [place] [address] Demario Bocanegra documented as of this encounter [...] Rapid Molecular) (02/26/2024 2:42 PM EST) Pathologist [facility] Influenza B Negative Negative, Indeterminate [facility] Swab 02/26/2024 2:42 PM EST us Sonali Tellez MD POINT OF CARE TEST ENTER/E DIT ORDERABLES Final Result Performing Organization Address [facility] Co de Phone Number [facility] [address] [place] [phone] * Influenza A (ID NOW Rapid Molecular) (02/26/2024 2:42 PM EST) [facility] Influenza A Negative Negative, Indeterminate [facility] Swab 02/26/2024 2:42 PM EST us Sonali Tellez MD POINT OF CARE TEST ENTER/E DIT ORDERABLES Final Result Performing Organization Address [facility] Co de Phone Number [facility] [address] [place] [phone] * POCT Rapid COVID Ag (02/26/2024 2:42 PM EST) Rapid COVID Ag Negative [facility] Swab 02/26/2024 2:42 PM EST us Sonali Tellez MD POINT OF CARE TEST ENTER/E DIT ORDERABLES Final Result [facility] [address] [place] [address] [phone] documented in this encounter Visit Diagnoses Diagnosis Viral upper respiratory infection- Primary Acute upper respiratory infections of unspecified site Influenza Influenza with other respiratory manifestations documented in this encounter Additional Health Concerns Assessment Noted Time PHQ-9 Depression Total Score: 11 024 9:48 AM EDT documented as of this encounter Care Teams Health Program Manager Relationship Specialty Start Date End Date Cinthya Ray MD [address] [place] [address] PCP - General Family Medicine 10/23/11 Mayito Acuña, PharmD [address] [place] [address] Pharmacist Internal Medicine 03/07/23 documented as of this encounter
--- OUTSIDE RECORDS SUMMARY | 2024-03-26 14:23 | XMS_ITS | Encounter Summary ---
Author Organization [facility] [facility] Address [address] [place] [address] 7 [place] [address] Care Team Providers Care Cook Frozen Dessert Name Role Phone Cinthya Ray MD Primary Care Provider [phone] Mayito Acuña PharmD Unavailable [phone] Reason for Visit * Reason Onset Date Comments Medication Question 06/14/2022 Encounter Details Date Type Department Care Team ([facility] st Contact Info) Description 06/14/2022 Telephone [facility] [address] [place], [place] [phone] Cinthya Ray MD [address] [place], [place] [phone] Medication Question Social History Tobacco Use Types [...] Info) Description 04/23/2024 3:30 PM EDT Telemedicine [facility] [address] [place] [address] Mayito Acuña, PharmD [address] [place] [address] 07/30/2024 3:00 PM EDT Office Visit [facility] CH[facility] ADULT DENTAL [address] [place] [address] Demario Bocanegra documented as of this encounter Visit Diagnoses Not on filedocumented in this encounter Care Teams Cook Frozen Dessert Relationship Specialty Start Date End Date Cinthya Ray MD [address] [place] [address] PCP - General Family Medicine 10/23/11 Mayito Acuña, PharmD [address] [place] [address] Pharmacist Internal Medicine 03/07/23 documented as of this encounter
--- OUTSIDE RECORDS SUMMARY | 2024-03-26 14:24 | XMS_ITS | Encounter Summary ---
Author Organization [employer] Address [address] [place] [address] 7 [place] [address] Care Team Providers Care Info Print Press Operator Name Role Phone Cinthya Ray MD Primary Care Provider [phone] Mayito Acuña PharmD Unavailable Reason for Visit * Reason Onset Date Comments Med Refill 09/29/2023 Encounter Details Date Type Department Care Team (Late st Contact Info) Description 09/29/2023 Refill [facility] CH[facility] MED & PEDS [address] [place], [place] [phone] Cinthya Ray MD [address] [place] [address] Type 2 diabetes mellitus with hyperglycemia, without long-term current use of insulin ([facility]) Social History Tobacco Use Types [...] EDT Telemedicine [facility] MEDICINE [address] [place] [address] Mayito Acuña, DyanD [address] [place] [address] 07/30/2024 3:00 PM EDT Office Visit [facility] CHC ADULT DENTAL [address] [place] [address] Demario Bocanegra documented as of this encounter [...] hyperglycemia, without long-term current use of insulin ([facility]) documented in this encounter Additional Health Concerns Assessment Noted Time PHQ-9 Depression Total Score: 11 024 9:48 AM EDT documented as of this encounter Care Teams Info Print Press Operator Relationship Specialty Start Date End Date Cinthya Ray MD [address] [place] [address] PCP - General Family Medicine 10/23/11 Mayito Acuña, Citlali [address] [place] [address] Pharmacist Internal Medicine 03/07/23 documented as of this encounter
--- OUTSIDE RECORDS SUMMARY | 2024-03-26 14:24 | XMS_ITS | Encounter Summary ---
Author Organization [facility] Address [address] [place] [address] 7 [place] [address] Care Team Providers Care Joint Maker Machine Name Role Phone Cinthya Ray MD Primary Care Provider [phone] Mayito Acuña PharmD Unavailable [phone] Reason for Visit * Reason Onset Date Comments Med Refill 08/06/2023 Encounter Details Date Type Department Care Team (Late st Contact Info) Description 08/06/2023 Refill [facility] [address] [place], [place] [phone] Cinthya Ray MD [address] [place], [place] [phone] Social History Tobacco Use Types Packs/Day Years [...] Info) Description 04/23/2024 3:30 PM EDT Telemedicine [facility] [address] [place] [address] Mayito Acuña PharmD [address] [place] [address] 07/30/2024 3:00 PM EDT Office Visit [facility] CHC ADULT DENTAL [address] [place] [address] Demario Bocanegra documented as of this encounter [...] documented as of this encounter Care Teams Joint Maker Machine Relationship Specialty Start Date End Date Cinthya Ray MD [address] [place] [address] PCP - General Family Medicine 10/23/11 Mayito Acuña, PharmD [address] [place] [address] Pharmacist Internal Medicine 03/07/23 documented as of this encounter
--- OUTSIDE RECORDS SUMMARY | 2024-03-26 14:24 | XMS_ITS | Encounter Summary ---
Author Organization [employer] Address 75 [facility] 7t [place] [address] Care Team Providers Care Exec. Creative Director Name Role Phone iCnthya Ray MD Primary Care Provider [phone] Mayito Acuña PharmD Unavailable [phone] Encounter Details Date Type Department Care Team ([facility] st Contact Info) Description 08/05/2023 Orders Only [facility] CH[facility] MED & PEDS [address] [place], [place] [phone] Izzy Olvera FNP [address] [place] [address] Social History Tobacco Use Types Packs/Day Years [...] EDT Telemedicine [facility] MEDICINE [address] [place] [address] Mayito Acuña PharmD [address] [place] [address] 07/30/2024 3:00 PM EDT Office Visit [facility] CHC ADULT DENTAL [address] [place] [address] Demario Bocanegra documented as of this encounter [...] documented as of this encounter Care Teams Exec. Creative Director Relationship Specialty Start Date End Date Cinthya Ray MD [address] [place] [address] PCP - General Family Medicine 10/23/11 Mayito Acuña PharmD [address] [place] [address] Pharmacist Internal Medicine 03/07/23 documented as of this encounter
--- OUTSIDE RECORDS SUMMARY | 2024-03-26 14:24 | XMS_ITS | Encounter Summary ---
Author Organization [employer] Address 75 [facility] 7t [place] [address] Care Team Providers Care Aix Administrator Name Role Phone Cinthya Ray MD Primary Care Provider [phone] Mayito Acuña PharmD Unavailable [phone] Encounter Details Date Type Department Care Team (Late st Contact Info) Description 03/12/2024 Orders Only [facility] External Provider, [facility] Social History Tobacco Use Types Packs/Day [...] PM EDT Telemedicine [facility] [address] [place] [address] Mayito Acuña PharmD [address] [place] [address] 07/30/2024 3:00 PM EDT Office Visit [facility] CHC ADULT DENTAL [address] [place], [place] [phone] Demario Bocanegra documented as of this encounter [...] CONTRAST LEFT Routine 03/12/2024 7:15 PM EST documented in this encounter Results * MR Shoulder w/o Contrast Left (03/12/2024 7:15 PM EST) Anatomical Region Laterality Modality Upper Extremities, Shoulder Left Magn etic Resonance 03/12/2024 7:15 PM EST Narrative 03/15/2024 10:07 AM EST ? [facility] ?[address] ?[place] [address] ? Magnetic Resonance Report ? Signed ? Patient: Sonali Gill ?MR#: ?? [id number] ? : 1990 ?Acct:[id number] ? Age/Sex: 34 / F ?ADM Date: 03/12/24 ? Loc: HO.MRI ? Attending Dr: Al Hays MD ? Ordering Physician: Al Hays MD ?? Date of Service: 03/12/24 ?? Procedure(s): MR shoulder LT wo con ?? Accession Number(s): [id number] ? cc: Al Hays MD; Cinthya Ray [...] Vera MD in OV> ?03/15/24 1004 ? DD/DT: 03/12/ 1915 ? TD/TT: 03/12/ 1940 ? Payment Specialist: ? Procedure Note Donotuseinterpreter, Image - 03/15/[address] [address] Magnetic Resonance Report Signed Patient: Jeremy Gill#: [id number] : 1990Acct:[id number] Age/Sex: 34 / FADM Date: 03/12/24 Loc: HO.MRI Attending Dr: Al Hays MD Ordering Physician: Al Hays MD Date of Service: 03/12/24 Procedure(s): MR shoulder LT wo con Accession Number(s): [id number] cc: Al Hays MD; Cinthya Ray MD [...] OV> 03/15/24 1004 DD/ 14 TD/TT: 03/12/241939 Payment Specialist: [facility] External Provider IMG MRI PROCEDURES Final Result documented in this encounter Visit Diagnoses Not on filedocumented in this encounter Additional Health Concerns Assessment Noted Time PHQ-9 Depression Total Score: 11 024 9:48 AM EDT documented as of this encounter Care Teams Aix Administrator Relationship Specialty Start Date End Date Cinthya Ray MD [address] [place] [address] PCP - General Family Medicine 10/23/11 Mayito Acuña, DyanD [address] [place] [address] Pharmacist Internal Medicine 03/07/23 documented as of this encounter
--- OUTSIDE RECORDS SUMMARY | 2024-03-26 14:24 | XMS_ITS | Encounter Summary ---
Author Organization [employer] Address [address] [place] [address] 7 [place] [address] Care Team Providers Care Paint Line Supervisor Name Role Phone Cinthya Ray MD Primary Care Provider [phone] Mayito Acuña PharmD Unavailable [phone] Reason for Visit * Reason Onset Date Comments Med Refill 09/29/2023 Encounter Details Date Type Department Care Team (Late st Contact Info) Description 09/29/2023 Refill [facility] [address] [place], [place] [phone] Cinthya Ray MD [address] [place], [place] [phone] Type 2 diabetes mellitus with hyperglycemia, without long-term current use of insulin ([facility]) Social History Tobacco Use Types Packs/Day [...] Info) Description 04/23/2024 3:30 PM EDT Telemedicine [facility] [address] [place] [address] Mayito Acuña, PharmD [address] [place] [address] 07/30/2024 3:00 PM EDT Office Visit [facility] CHC ADULT DENTAL [address] [place] [address] Demario Bocanegra documented as of this encounter [...] hyperglycemia, without long-term current use of insulin ([facility]) documented in this encounter Additional Health Concerns Assessment Noted Time PHQ-9 Depression Total Score: 11 024 9:48 AM EDT documented as of this encounter Care Teams Paint Line Supervisor Relationship Specialty Start Date End Date Cinthya Ray MD [address] [place] [address] PCP - General Family Medicine 10/23/11 Mayito Acuña, Citlali [address] [place] [address] Pharmacist Internal Medicine 03/07/23 documented as of this encounter
--- OUTSIDE RECORDS SUMMARY | 2024-03-26 14:24 | XMS_ITS | Clinical Summary ---
Author Organization [facility] Address [address] [place] [address] Phone Care Team Providers Care Point Of Sale Associate Name Role Phone Unavailable Primary Care Provider Unavailabl e Allergies No known active allergies Encounters Date Type Department Care Team Description 02/29/2024 2:07 AM EST - 02/29/2024 3:08 AM EST Emergency [facility] Emergency [address] [place] [address] Viral syndrome (Primary Dx) Discharge [...] on file Sexual Orientation Not on file Obstetrics History Last Filed [...] on patient's age to complete this topic Meningococcal B Vacine Aged Out No lo nger eligible based on patient's age to complete [...] molecular study (02/29/2024 1:27 AM EST) Pathologist [facility] Adenovirus Detection by PCR Not Detected Not Detected LAB MICROBIOLOGY METHOD 02/29/2024 3:00 AM EST [facility] Influenza A PCR Not Detected Not Detected LAB MICROBIOLOGY METHOD 02/29/2024 3:00 AM EST [facility] Influenza B PCR Not Detected Not Detected LAB MICROBIOLOGY METHOD 02/29/2024 3:00 AM EST [facility] Coronavirus 229E Not Detected Not Detected LAB MICROBIOLOGY METHOD 02/29/2024 3:00 AM [facility] Coronavirus HKU1 Not Detected Not Detected LAB MICROBIOLOGY METHOD 02/29/2024 3:00 AM [facility] Coronavirus OC43 Not Detected Not Detected LAB MICROBIOLOGY METHOD 02/29/2024 3:00 AM EST [facility] Coronavirus NL63 Not Detected Not Detected LAB MICROBIOLOGY METHOD 02/29/2024 3:00 AM EST [facility] Parainfluenza Virus 1 Not Detected Not Detected LAB MICROBIOLOGY METHOD 02/29/2024 3:00 AM [facility] Parainfluenza Virus 2 Not Detected Not Detected LAB MICROBIOLOGY METHOD 02/29/2024 3:00 AM [facility] Parainfluenza Virus 3 Not Detected Not Detected LAB MICROBIOLOGY METHOD 02/29/2024 3:00 AM EST [facility] Parainfluenza Virus 4 Not Detected Not Detected LAB MICROBIOLOGY METHOD 02/29/2024 3:00 AM [facility] RSV PCR Not Detected Not Detected LAB MICROBIOLOGY METHOD 02/29/2024 3:00 AM [facility] Human Metapneumovirus A and B Not Detected Not Detected LAB MICROBIOLOGY METHOD 02/29/2024 3:00 AM [facility] Rhinovirus/Entero virus Not Detected Not Detected LAB MICROBIOLOGY METHOD 02/29/2024 3:00 AM EST [facility] Bordetella pertussis Not Detected Not Detected LAB MICROBIOLOGY METHOD 02/29/2024 3:00 AM [facility] Bordetella parapertussis Not Detected Not Detected LAB MICROBIOLOGY METHOD 02/29/2024 3:00 AM [facility] Mycoplasma pneumo by PCR Not Detected Not Detected LAB MICROBIOLOGY METHOD 02/29/2024 3:00 AM [facility] Chlamydia pneumoniae Not Detected Not Detected LAB MICROBIOLOGY METHOD 02/29/2024 3:00 AM [facility] SARS COV-2 Not Detected Not Detected LAB MICROBIOLOGY METHOD 02/29/2024 3:00 AM [facility] Swab Both anterior nares / Unknown Non-blood Collection / Unknown 02/29/2024 1:27 AM EST 02/29/2024 1:46 AM [facility] - 02/29/2024 3:00 AM EST Testing was performed using the SeoPult Respiratory Pathogen PCR Assay. All results must [...] are below the limit of detection. Carlos Valero MD LAB MICROBIOLOGY - GENERAL [facility] Final Result [facility] [address] [place] [address], from Last 3 Months Insurance [place]ICAID - [place]
--- OUTSIDE RECORDS SUMMARY | 2024-03-26 14:24 | XMS_ITS | Encounter Summary ---
Author Organization [facility] Address [address] [place] [address] 7 [place] [address] Care Team Providers Care Rn Correctional Name Role Phone Cinthya Ray MD Primary Care Provider [phone] Mayito Acuña PharmD Unavailable [phone] Reason for Referral * Consultation (Routine) - Authorized Specialty Diagnoses / Procedures Referred By Contcarly t Referred To Contact Pharmacy Diagnoses Type 2 diabetes mellitus with hyperglycemia, with long-term current use of insulin (CMS/HCC) Cinthya Ray MD [address] [place] [address] Phone: tel: fax: Referral ID Status Reason Start Date Expiration Date Visits Requested Visits Authorized [id number] Authorized Consult and Treat 12/23/2023 12/22/2024 6 6 Encounter Details Date Type Department Care Team (Late st Contact Info) Description 12/23/2023 Orders Only [facility] MEDICINE [address] [place] [address] [phone] Cinthya Ray MD [address] [place], [place] [phone] Type 2 diabetes mellitus with hyperglycemia, with [...] 3:30 PM EDT Telemedicine [facility] MEDICINE [address] [place] [address] Mayito Acuña, PharmD [address] [place] [address] 07/30/2024 3:00 PM EDT Office Visit [facility] CHC ADULT DENTAL [address] [place] [address] Demario Bocanegra Scheduled Referrals Name Type Priority Associated Diagnoses Orde r Schedule Referral to Pharmacy CDTM Outpatient Referral Routine Type 2 diabetes mellitus with hyperglycemia, with long-term current use of insulin ([facility]) Ordered: 12/23/2023 documented as of [...] hyperglycemia, with long-term current use of insulin ([facility])- Primary documented in this encounter Additional Health Concerns Assessment Noted Time PHQ-9 Depression Total Score: 11 024 9:48 AM EDT documented as of this encounter Care Teams Rn Correctional Relationship Specialty Start Date End Date Cinthya Ray MD [address] [place] [address] PCP - General Family Medicine 10/23/11 Mayito Acuña PharmD [address] [place] [address] Pharmacist Internal Medicine 03/07/23 documented as of this encounter
--- OUTSIDE RECORDS SUMMARY | 2024-03-26 14:24 | XMS_ITS | Encounter Summary ---
Author Organization [employer] [facility] Address [address] [place] [address] 7 [place] [address] Care Team Providers Care Irrigationist Name Role Phone Cinthya Ray MD Primary Care Provider [phone] Mayito Acuña PharmD Unavailable Reason for Visit * Reason Comments Med Refill Encounter Details Date Type Department Care Team (Late st Contact Info) Description 08/31/2022 Refill [facility]INE [address] [place] [address] Starla Nuñez MD [address] [place] [address] Injury of head, initial encounter Social History [...] Info) Description 04/23/2024 3:30 PM EDT Telemedicine [facility] MED[facility] [address] [place] [address] Mayito Acuña, Citlali [address] [place] [address] 07/30/2024 3:00 PM EDT Office Visit [facility] CHC ADULT DENTAL [address] [place] [address] Demario Bocanegra documented as of this encounter Visit Diagnoses Diagnosis Injury of head, initial encounter documented in this encounter Care Teams Irrigationist Relationship Specialty Start Date End Date Cinthya Ray MD [address] [place] [address] PCP - General Family Medicine 10/23/11 Mayito Acuña, Citlali [address] [place] [address] Pharmacist Internal Medicine 03/07/23 documented as of this encounter
--- OUTSIDE RECORDS SUMMARY | 2024-03-26 14:24 | XMS_ITS | Encounter Summary ---
Author Organization [employer] Address [address] [place] [address] 7 [place] [address] Care Team Providers Care Senior Administrative Support Name Role Phone Cinthya Ray MD Primary Care Provider [phone] Mayito Acuña PharmD Unavailable [phone] Reason for Visit * Reason Onset Date Comments Appointment Request 09/02/2022 Encounter Details Date Type Department Care Team ([facility] st Contact Info) Description 09/02/2022 Telephone C [facility] [address] [place], [place] [phone] Cinthya Ray MD [address] [place] [address] Appointment Request Social History Tobacco Use Types [...] her kidney failure.' Please contact pt at [phone] documented in this encounter Plan of Treatment Upcoming Encounters Date Type Department Care Team (Late st Contact Info) Description 04/23/2024 3:30 PM EDT Telemedicine [facility] MEDICINE [address] [place] [address] Mayito Acuña, PharmD [address] [place] [address] 07/30/2024 3:00 PM EDT Office Visit [facility] CH[facility] ADULT DENTAL [address] [place] [address] Demario Bocanegra documented as of this encounter Visit Diagnoses Not on filedocumented in this encounter Care Teams Senior Administrative Support Relationship Specialty Start Date End Date Cinthya Ray MD [address] [place] [address] PCP - General Family Medicine 10/23/11 Mayito Acuña, PharmD [address] [place] [address] Pharmacist Internal Medicine 03/07/23 documented as of this encounter
--- OUTSIDE RECORDS SUMMARY | 2024-03-26 14:24 | XMS_ITS | Encounter Summary ---
Author Organization [facility] Address [address] [place] [address] 7 [place] [address] Care Team Providers Care Mix Maker Name Role Phone Cinthya Ray MD Primary Care Provider [phone] Mayito Acuña PharmD Unavailable [phone] Reason for Visit * Reason Onset Date Comments Med Refill 11/02/2023 Encounter Details Date Type Department Care Team (Late st Contact Info) Description 11/02/2023 Refill [facility] MEDICINE [address] [place], [place] [phone] Cinthya Ray MD [address] [place], [place] [phone] Social History Tobacco Use Types Packs/Day Years [...] but unableto make. Pt will come to [facility] today open till 8pm. Pt reports drinking [...] Gill Sent: 11/10/2023 5:32 PM EDT To: [facility] Office Subject: Appointment Request Appointment Request From: Sonali Rosa With Provider: Cinthya Ray MD [[facility] MEDICINE] Preferred Date Range: 11/11/2023 - 11/13/2023 [...] EDT Telemedicine [facility] MEDICINE [address] [place] [address] Mayito Acuña PharmD [address] [place] [address] 07/30/2024 3:00 PM EDT Office Visit [facility] ADULT DENTAL [address] [place] [address] Demario Bocanegra documented as of this encounter [...] documented as of this encounter Care Teams Mix Maker Relationship Specialty Start Date End Date Cinthya Ray MD [address] [place] [address] PCP - General Family Medicine 10/23/11 Mayito Acuña PharmD [address] [place] [address] Pharmacist Internal Medicine 03/07/23 documented as of this encounter
--- OUTSIDE RECORDS SUMMARY | 2024-03-26 14:24 | XMS_ITS | Encounter Summary ---
Author Organization [employer] [facility] Address [address] [place] [address] 7 [place] [address] Care Team Providers Care Qa Engineer Name Role Phone Cinthya Ray MD Primary Care Provider [phone] Mayito Acuña PharmD Unavailable [phone] Reason for Visit * Reason Onset Date Comments Med Refill 10/30/2023 Encounter Details Date Type Department Care Team (Late st Contact Info) Description 10/30/2023 Refill [facility] [address] [place], [place] [phone] Cinthya Ray MD 230 [place], [place] [phone] Social History Tobacco Use Types Packs/Day Years [...] PM EDT Telemedicine [facility] [address] [place] [address] Mayito Acuña PharmD 230 [place] [address] 07/30/2024 3:00 PM EDT Office Visit [facility] [address] [place] [address] Demario Bocanegra documented as of this encounter [...] documented as of this encounter Care Teams Qa Engineer Relationship Specialty Start Date End Date Cinthya Ray MD [address] [place] [address] PCP - General Family Medicine 10/23/11 Mayito Acuña, PharmD 230 [place] [address] Pharmacist Internal Medicine 03/07/23 documented as of this encounter
--- OUTSIDE RECORDS SUMMARY | 2024-03-26 14:24 | XMS_ITS | Encounter Summary ---
Author Organization [employer] [facility] Address [address] [place] [address] 7 [place] [address] Care Team Providers Care Elevator Attendant Name Role Phone Cinthya Rya MD Primary Care Provider [phone] Mayito Acuña PharmD Unavailable [phone] Reason for Visit * Reason Onset Date Comments Results 12/09/2022 Encounter Details Date Type Department Care Team ([facility] st Contact Info) Description 12/09/2022 Telephone [facility] 230 [place], [place] [phone] Cinthya Ray MD 230 [place] [address] Results Social History Tobacco Use Types Packs/Day [...] to US results. Please contact pt at [phone] documented in this encounter Plan of Treatment Upcoming Encounters Date Type Department Care Team (Late st Contact Info) Description 04/23/2024 3:30 PM EDT Telemedicine [facility] 230 [place] [address] Mayito Acuña, Citlali [address] [place] [address] 07/30/2024 3:00 PM EDT Office Visit [facility] ADULT DENTAL [address] [place] [address] Demario Bocanegra documented as of this encounter Visit Diagnoses Not on filedocumented in this encounter Care Teams Elevator Attendant Relationship Specialty Start Date End Date Cinthya Ray MD [address] [place] [address] PCP - General Family Medicine 10/23/11 Mayito Acuña, PharmD [address] [place] [address] Pharmacist Internal Medicine 03/07/23 documented as of this encounter
--- OUTSIDE RECORDS SUMMARY | 2024-03-26 14:24 | XMS_ITS | Encounter Summary ---
Author Organization [email or web address] Address [address] [facility] 7 [place] [address] Care Team Providers Care Rent Collector Name Role Phone Cinthya Ray MD Primary Care Provider Mayito Acuña PharmD Unavailable [phone] Encounter Details Date Type Department Care Team ([facility] st Contact Info) Description 09/15/2023 Orders Only [facility] 230 [place], [place] [phone] Cinthya Ray MD 230 [place], [place] [phone] Type 2 diabetes mellitus with hyperglycemia, without long-term current use of insulin ([facility]) Social History Tobacco Use Types Packs/Day Years [...] 04/23/2024 3:30 PM EDT Telemedicine [facility] 230 [place] [address] Mayito Acuña PharmD [address] [place] [address] 07/30/2024 3:00 PM EDT Office Visit [facility] ADULT DENTAL [address] [place] [address] Demario Bocanegra documented as of this encounter [...] hyperglycemia, without long-term current use of insulin ([facility]) documented in this encounter Additional Health Concerns Assessment Noted Time PHQ-9 Depression Total Score: 0 09/10/19 24 9:01 AM EDT documented as of this encounter Care Teams Rent Collector Relationship Specialty Start Date End Date Cinthya Ray MD [address] [place] [address] PCP - General Family Medicine 10/23/11 Mayito Acuña, DynaD [address] [place] [address] Pharmacist Internal Medicine 03/07/23 documented as of this encounter"
--- OUTSIDE RECORDS SUMMARY | 2024-03-26 14:24 | XMS_ITS | Encounter Summary ---
Author Organization [employer] Address [address] [place] [address] 7 [place] [address] Care Team Providers Care Smoking Pipes Cleaner Name Role Phone Cinthya Ray MD Primary Care Provider [phone] Mayito Acuña PharmD Unavailable [phone] Reason for Visit * Reason Onset Date Comments Med Refill 03/12/2024 Encounter Details Date Type Department Care Team (Late st Contact Info) Description 03/12/2024 Refill [facility] [address] [place], [place] [phone] Cinthya Ray MD 230 [place] [address] Type 2 diabetes mellitus with hyperglycemia, without long-term current use of insulin ([facility]) Social History Tobacco [...] PM EDT Telemedicine [facility] 230 [place] [address] Mayito Acuña PharmD 230 [place] [address] 07/30/2024 3:00 PM EDT Office Visit [facility] ADULT DENT[facility] [address] [place] [address] Demario Bocanegra documented as of this encounter [...] hyperglycemia, without long-term current use of insulin ([facility]) documented in this encounter Additional Health Concerns Assessment Noted Time PHQ-9 Depression Total Score: 11 024 9:48 AM EDT documented as of this encounter Care Teams Smoking Pipes Cleaner Relationship Specialty Start Date End Date Cinthya Ray MD 230 [place] [address] PCP - General Family Medicine 10/23/11 Mayito Acuña, DyanD 230 [place] [address] Pharmacist Internal Medicine 03/07/23 documented as of this encounter
--- OUTSIDE RECORDS SUMMARY | 2024-03-26 14:24 | XMS_ITS | Encounter Summary ---
Author Organization [employer] Address [address] [facility] 7 [place] [address] Care Team Providers Care Sweetbread Trimmer Name Role Phone Cinthya Ray MD Primary Care Provider [phone] Mayito Acuña PharmD Unavailable [phone] Encounter Details Date Type Department Care Team ([facility] st Contact Info) Description 06/30/2023 Orders Only [facility] 230 [place], [place] [phone] Mayito Acuña, PharmD 230 [place], [place] [phone] Type 2 diabetes mellitus with hyperglycemia, with long-term current use of insulin ([facility]) (Primary Dx) Social History Tobacco Use Types [...] Info) Description 04/23/2024 3:30 PM EDT Telemedicine [facility] 230 [place] [address] Mayito Acuña PharmD 230 [place] [address] 07/30/2024 3:00 PM EDT Office Visit [facility] ADULT DENTAL [address] [place] [address] Demario Bocanegra documented as of this encounter [...] hyperglycemia, with long-term current use of insulin ([facility]) documented in this encounter Results * Hematoxylin and Eosin Stain (06/30/2023 12:47 PM EDT) 06/30/2023 12:4 7 PM EDT 06/30/2023 1:27 PM EDT [facility] - 07/02/2023 9:30 AM EDT ----- ------- Name: Sonali Gill ?Age/Sex: 33/F ? : 1990 Unit#: [id number] ?? Attend Dr: Jose Figueroa MD ?Re06/30/23 ?Status: DEP SDC ? Location: HO.SSS ?Disch: ? ----- ------- SPEC : [id number] ? RECD: 06/30/23-7 ? STATUS: ??SOUT ? REQ NUM: [id number] ? MELANIA: 06/30/23-1247 ? SUBM DR: Jose Figueroa MD ? ENTERED: ??06/30/23-6 ?SP TYPE: Surgical ? OTHR DR: Cinthya [...] Gill ?Age/Sex: 33/F ? : 1990 Unit#: [id number] ?? Attend Dr: Jose Figueroa MD ?Re06/30/23 ?Status: DEP SDC ? Location: HO.SSS ?Disch: ? ----- ------- SPEC : [id number] ? RECD: 06/30/23 ? STATUS: ??SOUT ? REQ NUM: [id number] ? MELANIA: 06/30/23-1246 ? SUBM DR: Jose [...] To: ?? Jose Figueroa MD ?? [address] [facility] [address] ?? [place] [address] ?? [phone] ?? Cinthya Ray MD ?? [address] [facility] ?? [place] [address] ?? ----- ------- Signed (signature on file) Esa Aguiar MD 07/02/23 0930 ? ----- ------- ? END OF REPORT ? us Generic External Data Provider LAB BLOOD ORDERAB LES Final Result [facility] [address] [place] [address] [phone] documented in this encounter Visit Diagnoses Diagnosis Type 2 diabetes mellitus with hyperglycemia, with long-term current use of insulin ([facility])- Primary documented in this encounter Additional Health Concerns Assessment Noted Time PHQ-9 Depression Total Score: 0 06/10/19 24 2:55 PM EDT documented as of this encounter Care Teams Sweetbread Trimmer Relationship Specialty Start Date End Date Cinthya Ray MD 230 [place] [address] PCP - General Family Medicine 10/23/11 Mayito Acuña, Citlali [address] [place] [address] Pharmacist Internal Medicine 03/07/23 documented as of this encounter
--- OUTSIDE RECORDS SUMMARY | 2024-03-26 14:24 | XMS_ITS | Encounter Summary ---
Author Organization [employer] Address [address] [place] [address] 7 [place] [address] Care Team Providers Care Manager Residential Name Role Phone Cinthya Ray MD Primary Care Provider [phone] Mayito Acuña PharmD Unavailable [phone] Reason for Visit * Reason Onset Date Comments Med Refill 10/30/2023 Encounter Details Date Type Department Care Team (Late st Contact Info) Description 10/30/2023 Refill [facility] [address] [place], [place] [phone] Cinthya Ray MD 230 [place] [address] Type 2 diabetes mellitus with hyperglycemia, without long-term current use of insulin ([facility]) Social History Tobacco Use Types [...] PM EDT Telemedicine [facility] 230 [place] [address] Mayito Acuña, DyanD [address] [place] [address] 07/30/2024 3:00 PM EDT Office Visit [facility] ADULT [facility] [address] [place] [address] Demario Bocanegra documented as of this encounter [...] without long-term current use of insulin ([facility]) documented in this encounter Additional Health Concerns Assessment Noted Time PHQ-9 Depression Total Score: 11 024 9:48 AM EDT documented as of this encounter Care Teams Manager Residential Relationship Specialty Start Date End Date Cinthya Ray MD [address] [place] [address] PCP - General Family Medicine 10/23/11 Mayito Acuña, Citlali [address] [place] [address] Pharmacist Internal Medicine 03/07/23 documented as of this encounter
--- OUTSIDE RECORDS SUMMARY | 2024-03-26 14:24 | XMS_ITS | Encounter Summary ---
Author Organization [employer] Address [address] [place] [address] 7 [place] [address] Care Team Providers Care Control Officer Name Role Phone Cinthya Ray MD Primary Care Provider [phone] Mayito Acuña PharmD Unavailable [phone] Reason for Visit * Reason Onset Date Comments Med Refill 12/24/2023 Encounter Details Date Type Department Care Team (Late st Contact Info) Description 12/24/2023 Refill [facility]S [address] [place], [place] [phone] Cinthya Ray MD 230 [place] [address] Type 2 diabetes mellitus with hyperglycemia, without long-term current use of insulin ([facility]) Social History Tobacco Use Types Packs/Day Years [...] Info) Description 04/23/2024 3:30 PM EDT Telemedicine [facility] 230 [place] [address] Mayito Acuña PharmD 230 [place] [address] 07/30/2024 3:00 PM EDT Office Visit [facility] ADULT DENTAL [address] [place] [address] Demario Bocanegra documented as of this encounter [...] use of insulin ([facility]) documented in this encounter Additional Health Concerns Assessment Noted Time PHQ-9 Depression Total Score: 11 024 9:48 AM EDT documented as of this encounter Care Teams Control Officer Relationship Specialty Start Date End Date Cinthya Ray MD 230 [place] [address] PCP - General Family Medicine 10/23/11 Mayito Acuña, DyanD 230 [place] [address] Pharmacist Internal Medicine 03/07/23 documented as of this encounter
--- OUTSIDE RECORDS SUMMARY | 2024-03-26 14:24 | XMS_ITS | Encounter Summary ---
Author Organization [employer] Address [address] [place] [address] 7 [place] [address] Care Team Providers Care Manager Activities Name Role Phone Cinthya Ray MD Primary Care Provider [phone] Mayito Acuña PharmD Unavailable [phone] Reason for Visit * Reason Onset Date Comments Med Refill 01/03/2023 Encounter Details Date Type Department Care Team (Late st Contact Info) Description 01/03/2023 Refill [facility] 230 [place], [place] [phone] Cinthya Ray MD 230 [place], [place] [phone] Social History Tobacco Use Types Packs/Day Years [...] Description 04/23/2024 3:30 PM EDT Telemedicine [facility] 230 [place] [address] Mayito Acuña, PharmD [address] [place] [address] 07/30/2024 3:00 PM EDT Office Visit [facility] [address] [place] [address] Demario Bocanegra documented as of this encounter Visit Diagnoses Not on filedocumented in this encounter Care Teams Manager Activities Relationship Specialty Start Date End Date Cinthya Ray MD [address] [place] [address] PCP - General Family Medicine 10/23/11 Mayito Acuña, PharmD [address] [place] [address] Pharmacist Internal Medicine 03/07/23 documented as of this encounter
--- OUTSIDE RECORDS SUMMARY | 2024-03-26 14:24 | XMS_ITS | Encounter Summary ---
Author Organization [employer] Address [address] [place] [address] 7 [place] [address] Care Team Providers Care Terrazzo Layer Helper Name Role Phone Cinthya Ray MD Primary Care Provider [phone] Mayito Acuña PharmD Unavailable [phone] Reason for Visit * Reason Onset Date Comments Med Refill 11/02/2023 Encounter Details Date Type Department Care Team (Late st Contact Info) Description 11/02/2023 Refill [facility]EDS [address] [place], [place] [phone] Cinthya Ray MD 230 [place] [address] Type 2 diabetes mellitus with hyperglycemia, without long-term current use of insulin ([facility]) Social History Tobacco Use Types [...] EDT Telemedicine [facility] MEDICINE 230 [place] [address] Mayito Acuña, DyanD 230 [place] [address] 07/30/2024 3:00 PM EDT Office Visit [facility] ADULT DENTAL [address] [place] [address] Demario Bocanegra documented as of this encounter [...] hyperglycemia, without long-term current use of insulin ([facility]) documented in this encounter Additional Health Concerns Assessment Noted Time PHQ-9 Depression Total Score: 11 024 9:48 AM EDT documented as of this encounter Care Teams Terrazzo Layer Helper Relationship Specialty Start Date End Date Cinthya Ray MD [address] [place] [address] PCP - General Family Medicine 10/23/11 Mayito Acuña, Citlali [address] [place] [address] Pharmacist Internal Medicine 03/07/23 documented as of this encounter
== END 2024-03-26 14:56 | disposition home or self-care (01) ==
LOC: HO.HBST 14:21
PROVIDERS: PCP Family Medicine; Visit Provider Counselor Mental Health
DX: F41.8 Other specified anxiety disorders (principal); F43.9 Reaction to severe stress, unspecified
CPT/HCPCS: 90834

== ENCOUNTER → 2024-03-26 14:21 | Outpatient (BNVA) | payer OTHER, MEDICAID, SELFPAY | PROVIDERS: PCP Family Medicine; Visit Provider Counselor Mental Health ==

== ENCOUNTER 2024-04-07 11:09 | Outpatient (REF) | payer MEDICAID, SELFPAY ==
[2024-04-07 13:26] LABS: CT PCR NOT DETECTED (Not Detect.); NG PCR NOT DETECTED (Not Detect.)
[2024-04-07 13:50] LABS: Bacterial Vaginosis PCR POSITIVE (Negative); Candida Group PCR NOT DETECTED (Not Detect); Candida glab krusei PCR NOT DETECTED (Not Detect); Trichomonas vaginalis PCR NOT DETECTED (Not Detect)
--- OUTSIDE RECORDS SUMMARY | 2024-04-07 14:03 | XMS_ITS | Encounter Summary ---
Author Organization [employer] [facility] Address [address] [place] [address] 7 [place] [address] Care Team Providers Care Clinical Microbiologist Name Role Phone Cinthya Ray MD Primary Care Provider [phone] Mayito Acuña PharmD Unavailable [phone] Reason for Visit * Reason Onset Date Comments Medication Question 06/14/2022 Encounter Details Date Type Department Care Team ([facility] st Contact Info) Description 06/14/2022 Telephone [facility] 230 [place], [place] [phone] Cinthya Ray MD 230 [place], [place] [phone] Medication Question Social History Tobacco Use Types [...] Info) Description 04/23/2024 3:30 PM EDT Telemedicine [facility] 230 [place] [address] Mayito Acuña, PharmD [address] [place] [address] 07/30/2024 3:00 PM EDT Office Visit [facility] ADULT DENTAL [address] [place] [address] Demario Bocanegra documented as of this encounter Visit Diagnoses Not on filedocumented in this encounter Care Teams Clinical Microbiologist Relationship Specialty Start Date End Date Cinthya Ray MD [address] [place] [address] PCP - General Family Medicine 10/23/11 Mayito Acuña, PharmD [address] [place] [address] Pharmacist Internal Medicine 03/07/23 documented as of this encounter
--- OUTSIDE RECORDS SUMMARY | 2024-04-07 14:03 | XMS_ITS | Encounter Summary ---
Author Organization [employer] [facility] Address [address] [place] [address] [address] [place] [address] Care Team Providers Care Orthophoto Tech/Draftsman Name Role Phone Cinthya Ray MD Primary Care Provider [phone] Mayito Acuña PharmD Unavailable [phone] Reason for Referral * Consultation (Routine) - Closed Specialty Diagnoses / Procedures Referred By Contcarly t Referred To Contact Orthopaedic Surgery Diagnoses Chronic left shoulder pain Cinthya Ray MD [address] [place] [address] Phone: tel: fax: [facility] [address] [place] [address] Phone: tel: Referral ID Status Reason Start Date Expiration Date V isits Requested Visits Authorized [id number] Closed Specialty Services Required 02/05/2024 02/04/2025 6 6 Encounter Details Date Type Department Care Team (Late st Contact Info) Description 02/05/2024 Orders Only [facility] [address] [place] [address] Cinthya Ray MD 230 [place], [place] [phone] Chronic left shoulder pain (Primary Dx) Social [...] Description 04/23/2024 3:30 PM EDT Telemedicine [facility] 230 [place] [address] Mayito Acuña, PharmD 230 [place] [address] 07/30/2024 3:00 PM EDT Office Visit [facility] ADULT DENTAL [address] [place] [address] Demario Bocanegra Scheduled Referrals Name Type Priority Associated Diagnoses Order Schedule Referral to Orthopaedic Surgery Outpatient Referral Routine Chronic left shoulder pain Expected: 02/05/2024 (Approximate), Expires: 02/04/2025 documented as of this encounter Goals Goal Patient Goal Type Associated Problems Recent Progress Patient-Stated? Author Blood Pressure < 140/90 Blood Pressure 120/70(2024 5:10 PM EST) No Mayito Acuña PharmD Hemoglobin A1c < 7 Result Component 6.1( 10:46 AM EST) No Mayito Acuña PharmD documented as of this encounter Visit Diagnoses Diagnosis Chronic left shoulder pain- Primary Pain in joint, shoulder region documented in this encounter Additional Health Concerns Assessment Noted Time PHQ-9 Depression Total Score: 11 024 9:48 AM EDT documented as of this encounter Care Teams Orthophoto Tech/Draftsman Relationship Specialty Start Date End Date Cinthya Ray MD 230 [place] [address] PCP - General Family Medicine 10/23/11 Mayito Acuña PharmD [address] [place] [address] Pharmacist Internal Medicine 03/07/23 documented as of this encounter
--- OUTSIDE RECORDS SUMMARY | 2024-04-07 14:03 | XMS_ITS | Encounter Summary ---
Author Organization [employer] Address [address] [facility] 7 [place] [address] Care Team Providers Care Parts Room Assistant Name Role Phone Cinthya Ray MD Primary Care Provider [phone] Mayito Acuña PharmD Unavailable Encounter Details Date Type Department Care Team ([facility] st Contact Info) Description 03/05/2023 Orders Only [facility]INE 230 [place], [place] [phone] Cinthya Ray MD 230 [place], [place] [phone] Social History Tobacco Use Types Packs/Day Years [...] Info) Description 04/23/2024 3:30 PM EDT Telemedicine [facility] [address] [place] [address] Mayito Acuña PharmD [address] [place] [address] 07/30/2024 3:00 PM EDT Office Visit [facility] ADULT DENTAL [address] [place] [address] Demario Bocanegra documented as of this encounter Goals Goal Patient Goal Type Associated Problems Recent Progress Patient-Stated? Author Blood Pressure < 140/90 Blood Pressure 120/70(2024 5:10 PM EST) No Mayito Acuña PharmD Hemoglobin A1c < 7 Result Component 6.1( 10:46 AM EST) No Mayito Acuña PharmD documented as of this encounter Visit Diagnoses Not on filedocumented in this encounter Care Teams Parts Room Assistant Relationship Specialty Start Date End Date Cinthya Ray MD [address] [place] [address] PCP - General Family Medicine 10/23/11 Mayito Acuña PharmD [address] [place] [address] Pharmacist Internal Medicine 03/07/23 documented as of this encounter
--- OUTSIDE RECORDS SUMMARY | 2024-04-07 14:03 | XMS_ITS | Encounter Summary ---
Author Organization [employer] [facility] Address [address] [place] [address] 7 [place] [address] Care Team Providers Care Chemical Engineering Professor Name Role Phone Cinthya Ray MD Primary Care Provider [phone] Mayito Acuña PharmD Unavailable [phone] Reason for Visit * Reason Onset Date Comments Nurse Triage 03/23/2024 Encounter Details Date Type Department Care Team ([facility] st Contact Info) Description 03/23/2024 Telephone [facility] MEDICINE 230 [place], [place] [phone] Cinthya Ray MD [address] [place] [address] Nurse Triage Social History Tobacco Use Types [...] No answer LVM to return call to [facility] triage line [phone]. Will also send portal message to return call. Reviewed [facility] operating hours . Tien Rosa routed conversation to [facility] Triage Nurse4 hours ago (12:47 PM) Sonali Rosa P [facility] Clinical Support (supporting Cinthya Ray MD)6 hours ago(10:56 AM) My sugars have not gone done and it has been very high even with taking my medication. Unsure if mymedication needs to be adjusted or what steps to take. documented in this encounter Plan of Treatment Upcoming Encounters Date Type Department Care Team (Late st Contact Info) Description 04/23/2024 3:30 PM EDT Telemedicine [facility] MED[facility] [address] [place] [address] Mayito Acuña, PharmD 230 [place] [address] 07/30/2024 3:00 PM EDT Office Visit [facility] ADULT DENTAL [address] [place] [address] Demario Bocanegra documented as of this encounter [...] documented as of this encounter Care Teams Chemical Engineering Professor Relationship Specialty Start Date End Date Cinthya Ray MD [address] [place] [address] PCP - General Family Medicine 10/23/11 Mayito Acuña PharmD [address] [place] [address] Pharmacist Internal Medicine 03/07/23 documented as of this encounter
--- OUTSIDE RECORDS SUMMARY | 2024-04-07 14:03 | XMS_ITS | Encounter Summary ---
Author Organization [facility] Address [address] [place] [address] 7 [place] [address] Care Team Providers Care Line Supply Name Role Phone Cinthya Ray MD Primary Care Provider [phone] Mayito Acuña PharmD Unavailable [phone] Encounter Details Date Type Department Care Team (Late Contact Info) Description 02/26/2022 Abstract [facility] [address] [place] [address] [phone] Cinthya Ray MD [address] [place] [phone] Social History Tobacco Use Types Packs/Day Years [...] Info) Description 04/23/2024 3:30 PM EDT Telemedicine [facility] [address] [place] [address] [phone] Mayito Acuña, PharmD [address] [place], [place] [phone] 07/30/2024 3:00 PM EDT Office Visit [facility] [address] [place] [address] Demario Bocanegra documented as of this encounter Visit Diagnoses Not on filedocumented in this encounter Care Teams Line Supply Relationship Specialty Start Date End Date Cinthya Ray MD [address] [place] [address] PCP - General Family Medicine 10/23/11 Mayito Acuña, DyanD [address] [place] [address] Pharmacist Internal Medicine 03/07/23 documented as of this encounter
--- OUTSIDE RECORDS SUMMARY | 2024-04-07 14:03 | XMS_ITS | Encounter Summary ---
Author Organization [employer] Address [address] [facility] 7 [place] [address] Care Team Providers Care Human Projectile Name Role Phone Cinthya Ray MD Primary Care Provider [phone] Mayito Acuña PharmD Unavailable [phone] Encounter Details Date Type Department Care Team (Late st Contact Info) Description 04/06/2024 Orders Only [facility] [address] [place], [place] [phone] Lexis Spann MD [address] [place], [place] [phone] Social History Tobacco Use Types Packs/Day Years [...] Info) Description 04/23/2024 3:30 PM EDT Telemedicine [facility] [address] [place] [address] Mayito Acuña, DyanD [address] [place] [address] 07/30/2024 3:00 PM EDT Office Visit [facility] [address] [place] [address] Demario Bocanegra documented as of this encounter Goals Goal Patient Goal Type Associated Problems Recent Progress Patient-Stated? Author Blood Pressure < 140/90 Blood Pressure 120/70(2024 5:10 PM EST) No Mayito Acuña, PharmDao Hemoglobin A1c < 7 Result Component 6.1( 10:46 AM EST) No Mayito Acuña PharmD documented as of this encounter Procedures Procedure Name Priority Date/Time Associated Diagnosis Comments BACTERIAL VAGINOSIS PANEL Routine 04/06/2024 5:04 PM EST documented in this encounter Results * (ABNORMAL) Bacterial Vaginosis (04/06/2024 5:04 PM EST) TRICHOMONAS VAGINALIS DETECTION BY PCR NOT DETECTED Not Detect [facility] BACTERIAL VAGINOSIS DETECTION BY PCR POSITIVE(A) Negative [facility] Comment:The BV organism targ ets of the Xpert Xpress MVP test can becommensal in women; Xpert Xpress MVP positive results forbacterial vaginosis should be considered in conjunction withother clinical and patient information to determine thedisease status. Organisms that are not detected by the XpertXpress MVP test have also been reported to be associatedwith BV and aerobic vaginitis.The Xpert Xpress MVP test performance has not been evaluatedin patients under the age of 14. [employer] DETECTION BY PCR NOT DETECTED Not Detect [facility] Deyanira glab krusei PCR NOT DETECTED Not Detect [facility] 04/06/2024 5:04 PM EST 04/07/2024 11:23 AM EST us Lexis Spann MD LAB MICROBIOLOGY - GENER AL ORDERABLES Final Result [facility] [address] [place] [address] [phone] documented in this encounter Visit Diagnoses Not on filedocumented in this encounter Additional Health Concerns Assessment Noted Time PHQ-9 Depression Total Score: 11 024 9:48 AM EDT documented as of this encounter Care Teams Human Projectile Relationship Specialty Start Date End Date Cinthya Ray MD [address] [place] [address] PCP - General Family Medicine 10/23/11 Mayito Acuña PharmD [address] [place] [address] Pharmacist Internal Medicine 03/07/23 documented as of this encounter
--- OUTSIDE RECORDS SUMMARY | 2024-04-07 14:03 | XMS_ITS | Encounter Summary ---
Author Organization [employer] [facility] Address [address] [place] [address] 7 [place] [address] Care Team Providers Care Percussion Teacher Name Role Phone Cinthya Ray MD Primary Care Provider [phone] Mayito Acuña PharmD Unavailable [phone] Encounter Details Date Type Department Care Team (Late Contact Info) Description 06/13/2022 Orders Only [facility] [address] [place] [address] Jerrica Girard FNP Social History Tobacco [...] EDT Telemedicine [facility] [address] [place] [address] Mayito Acuña, PharmD [address] [place] [address] 07/30/2024 3:00 PM EDT Office Visit [facility] AD[facility] [address] [place] [address] Demario Bocanegra documented as of this encounter Visit Diagnoses Not on filedocumented in this encounter Care Teams Percussion Teacher Relationship Specialty Start Date End Date Cinthya Ray MD [address] [place] [address] PCP - General Family Medicine 10/23/11 Mayito Acuña, PharmD [address] [place] [address] Pharmacist Internal Medicine 03/07/23 documented as of this encounter
--- OUTSIDE RECORDS SUMMARY | 2024-04-07 14:03 | XMS_ITS | Encounter Summary ---
Author Organization [employer] Address [address] [facility] 7 [place] [address] Care Team Providers Care Field Service Poultry Technician Name Role Phone Cinthya Ray MD Primary Care Provider [phone] Mayito Acuña PharmD Unavailable [phone] Encounter Details Date Type Department Care Team (Late st Contact Info) Description 01/31/2024 Orders Only [facility] [address] [place], [place] [phone] Cinthya Ray MD [address] [place], [place] [phone] Vitamin D deficiency (Primary Dx) Social History [...] Info) Description 04/23/2024 3:30 PM EDT Telemedicine [facility] [address] [place] [address] Mayito Acuña PharmD [address] [place] [address] 07/30/2024 3:00 PM EDT Office Visit [facility] [address] [place] [address] Demario Bocanegra documented as of this encounter Goals Goal Patient Goal Type Associated Problems Recent Progress Patient-Stated? Author Blood Pressure < 140/90 Blood Pressure 120/70(2024 5:10 PM EST) No Mayito Acuña PharmDao Hemoglobin A1c < 7 Result Component 6.1( 10:46 AM EST) No Mayito Acuña PharmD documented as of this encounter Visit Diagnoses Diagnosis Vitamin D deficiency- Primary documented in this encounter Additional Health Concerns Assessment Noted Time PHQ-9 Depression Total Score: 11 024 9:48 AM EDT documented as of this encounter Care Teams Field Service Poultry Technician Relationship Specialty Start Date End Date Cinthya Ray MD [address] [place] [address] PCP - General Family Medicine 10/23/11 Mayito Acuña, DyanD [address] [place] [address] Pharmacist Internal Medicine 03/07/23 documented as of this encounter
--- OUTSIDE RECORDS SUMMARY | 2024-04-07 14:03 | XMS_ITS | Encounter Summary ---
Author Organization [employer] Address [address] [place] [address] 7 [place] [address] Care Team Providers Care Bridge Design Engineer Name Role Phone Cinthya Ray MD Primary Care Provider [phone] Mayito Acuña PharmD Unavailable [phone] Reason for Visit * Reason Onset Date Comments callback request 12/30/2023 Encounter Details Date Type Department Care Team ([facility] st Contact Info) Description 12/30/2023 Telephone [facility] [address] [place], [place] [phone] Cinthya Ray MD [address] [place] [address] callback request Social History Tobacco Use Types [...] the past 12 months, has t he [employer], gas, oil or water [employer] threatened to shut off services in your [...] EST Tc from pt returning call from [facility] to book an appointment for follow up Callback [phone] documented in this encounter Plan of Treatment Upcoming Encounters Date Type Department Care Team (Late st Contact Info) Description 04/23/2024 3:30 PM EDT Telemedicine [facility] [address] [place] [address] Mayito Acuña PharmD [address] [place] [address] 07/30/2024 3:00 PM EDT Office Visit [facility] [address] [place] [address] Demario Bocanegra documented as of this encounter Goals Goal Patient Goal Type Associated Problems Recent Progress Patient-Stated? Author Blood Pressure < 140/90 Blood Pressure 120/70(2024 5:10 PM EST) No Mayito AcuñaCitlali Hemoglobin A1c < 7 Result Component 6.1( 4 10:46 AM EST) No Mayito Acuña PharmD documented as of this encounter Visit Diagnoses Not on filedocumented in this encounter Additional Health Concerns Assessment Noted Time PHQ-9 Depression Total Score: 11 024 9:48 AM EDT documented as of this encounter Care Teams Bridge Design Engineer Relationship Specialty Start Date End Date Cinthya Ray MD [address] [place] [address] PCP - General Family Medicine 10/23/11 Mayito Acuña PharmD [address] [place] [address] Pharmacist Internal Medicine 03/07/23 documented as of this encounter
--- OUTSIDE RECORDS SUMMARY | 2024-04-07 14:03 | XMS_ITS | Encounter Summary ---
Author Organization [employer] Address [address] [facility] 7 [place] [address] Care Team Providers Care Beet Flumer Name Role Phone Cinthya Ray MD Primary Care Provider [phone] Mayito Acuña PharmD Unavailable [phone] Encounter Details Date Type Department Care Team (Late st Contact Info) Description 03/05/2024 Orders Only [facility] [address] [place], [place] [phone] Cinthya Ray MD [address] [place], [place] [phone] Type 2 diabetes mellitus with other specified complication, with long-term current use of insulin ([facility]) (Primary Dx) Social History Tobacco Use [...] the past 12 months, has t he [employer], gas, oil or water company threatened to [...] Info) Description 04/23/2024 3:30 PM EDT Telemedicine [facility] [address] [place] [address] Mayito Acuña PharmD [address] [place] [address] 07/30/2024 3:00 PM EDT Office Visit [facility] [address] [place] [address] Demario Bocanegra documented as of this encounter [...] complication, with long-term current use of insulin ([facility])- Primary documented in this encounter Additional Health Concerns Assessment Noted Time PHQ-9 Depression Total Score: 11 024 9:48 AM EDT documented as of this encounter Care Teams Beet Flumer Relationship Specialty Start Date End Date Cinthya Ray MD [address] [place] [address] PCP - General Family Medicine 10/23/11 Mayito Acuña PharmD [address] [place] [address] Pharmacist Internal Medicine 03/07/23 documented as of this encounter
--- OUTSIDE RECORDS SUMMARY | 2024-04-07 14:03 | XMS_ITS | Encounter Summary ---
Author Organization [employer] [facility] Address [address] [place] [address] 7 [place] [address] Care Team Providers Care Carrot Tier Name Role Phone Cinthya Ray MD Primary Care Provider [phone] Mayito Acuña PharmD Unavailable [phone] Reason for Visit * Reason Onset Date Comments triage 04/10/2022 Encounter Details Date Type Department Care Team (Late st Contact Info) Description 04/10/2022 Telephone [facility] [address] [place], [place] [phone] Cinthya Ray MD [address] [place], [place] [phone] triage Social History Tobacco Use Types Packs/Day [...] 04/23/2024 3:30 PM EDT Telemedicine [facility] [address] [place] [address] Mayito Acuña, PharmD [address] [place] [address] 07/30/2024 3:00 PM EDT Office Visit [facility] [address] [place] [address] Demario Bocanegra documented as of this encounter Visit Diagnoses Not on filedocumented in this encounter Care Teams Carrot Tier Relationship Specialty Start Date End Date Cinthya Ray MD [address] [place] [address] PCP - General Family Medicine 10/23/11 Mayito Acuña, Citlali [address] [place] [address] Pharmacist Internal Medicine 03/07/23 documented as of this encounter
--- OUTSIDE RECORDS SUMMARY | 2024-04-07 14:03 | XMS_ITS | Encounter Summary ---
Author Organization [facility] Address [address] [place] [address] 7 [place] [address] Care Team Providers Care Squad Sergeant Name Role Phone Cinthya Ray MD Primary Care Provider [phone] Mayito Acuña PharmD Unavailable [phone] Reason for Visit * Reason Onset Date Comments Med Refill 03/23/2024 Encounter Details Date Type Department Care Team (Late st Contact Info) Description 03/23/2024 Refill [facility] [address] [place], [place] [phone] Cinthya Ray MD [address] [place], [place] [phone] Social History Tobacco Use Types Packs/Day Years [...] PM EDT Telemedicine [facility] [address] [place] [address] Mayito Acuña PharmD [address] [place] [address] 07/30/2024 3:00 PM EDT Office Visit [facility] [address] [place] [address] Demario Bocanegra documented as of this encounter [...] documented as of this encounter Care Teams Squad Sergeant Relationship Specialty Start Date End Date Cinthya Ray MD [address] [place] [address] PCP - General Family Medicine 10/23/11 Mayito Acuña, DyanD [address] [place] [address] Pharmacist Internal Medicine 03/07/23 documented as of this encounter
--- OUTSIDE RECORDS SUMMARY | 2024-04-07 14:03 | XMS_ITS | Encounter Summary ---
Author Organization [employer] Address [address] [place] [address] 7 [place] [address] Care Team Providers Care Insole Cementer Name Role Phone Cinthya Ray MD Primary Care Provider [phone] Mayito Acuña PharmD Unavailable [phone] Reason for Visit * Reason Onset Date Comments Prior Authorization 04/01/2024 Encounter Details Date Type Department Care Team (Late st Contact Info) Description 04/01/2024 Telephone [facility] [address] [place], [place] [phone] Rianna Solis RN [address] [place] [address] Prior Authorization Social History Tobacco Use Types Packs/Day Years [...] encounter Miscellaneous Notes * Telephone Encounter - Rianna Solis RN - 04/05/2024 3:06 PM EST [facility] * Telephone Encounter - Rianna Solis RN - 04/01/2024 2:27 PM EST Received request from Audrey MILTON from pharmacy. PA packet generated and placed on PCP's desk. Pending signature. documented in this encounter Plan of Treatment Upcoming Encounters Date Type Department Care Team (Late st Contact Info) Description 04/23/2024 3:30 PM EDT Telemedicine [facility] [address] [place] [address] Mayito Acuña, PharmD [address] [place] [address] 07/30/2024 3:00 PM EDT Office Visit [facility] [address] [place] [address] Demario Bocanegra documented as of this encounter [...] documented as of this encounter Care Teams Insole Cementer Relationship Specialty Start Date End Date Cinthya Ray MD [address] [place] [address] PCP - General Family Medicine 10/23/11 Mayito Acuña PharmD [address] [place] [address] Pharmacist Internal Medicine 03/07/23 documented as of this encounter
--- OUTSIDE RECORDS SUMMARY | 2024-04-07 14:03 | XMS_ITS | Clinical Summary ---
Author Organization [employer] Address [address] [place] [address] 7 [place] [address] Care Team Providers Care Assistant Facility Manager Name Role Phone Cinthya Ray MD Primary Care Provider [phone] Mayito Acuña PharmD Unavailable [phone] Allergies No known active allergies Medications * This document contains information received from the source organization and may not represent a complete record from that organization. Blood Glucose Monitoring Suppl ([employer] False Pass Lite) w/Device kit TEST BLOOD SUGAR EVERY DAY 022 Active Alcohol Swabs (Alcohol Prep) 70 % padsIndications: Type 2 diabetes mellitus with hyperglycemia ([facility]) USE FOUR TIMES DAILY AND NEEDED 100 each 11 023 Active TRUEplus Lancets 33G miscIndications: Type 2 diabetes mellitus with hyperglycemia ([facility]) TEST BLOOD SUGAR FOUR TIMES DAILY 100 [...] hyperglycemia, without long-term current use of insulin ([facility]) INJECT 48 UNITS SUBCUTANEOUSLY ONCE EVERY DAY 45 mL 3 024 Active metroNIDAZOLE (Metrogel) 0.75 % vaginal gelIndications:B acterial Vaginosis Insert one applicator into vagina at bedtime for 7 nights 45 g 024 Active Continuous Glucose Sensor (FreeStyle Audrey 2 Sensor) miscIndications: Type 2 diabetes mellitus with hyperglycemia, without long-term current use of insulin ([facility]) Apply 1 sensor every 14 days 2 each 11 024 Active SUMAtriptan (Imitrex) 25 MG tabletIndication s:Injury of head, initial encounter TAKE 1 TAB ORALLY AFTER MIGRAINE ONSET MAY REPEAT AFTER 2HRS IF HEADACHE RETURNS,MAX 200MG IN 24HRS 9 tablet 024 Active Continuous Glucose Contour Stitcher (FreeStyle Audrey 2 [place]) deviceIndication s:Type 2 diabetes mellitus with hyperglycemia, without long-term current use of insulin ([facility]) SCAN sensory EVERY 8 HOURS 1 each 024 Active Glucose 2 g chewable tabletIndication s:Type 2 diabetes mellitus with hyperglycemia, with long-term current use of insulin ([facility]) Chew 2 g Once per day. To [...] mouth Once per day. 90 tablet 3 Active Mounjaro 7.5 MG/0.5ML solution auto-injectorInd ications:Type 2 diabetes mellitus with hyperglycemia, with long-term current use of insulin ([facility]) INJECT ONE PEN (=7.5MG) SUBCUTANEOUSLY ONCE A WEEK DIRECTED 2 mL 5 Active metFORMIN XR (Glucophage-XR) 500 MG 24 hr tablet TAKE 2 TABLETS BY MOUTH TWICE DAILY WITH BREAKFAST AND WITH DINNER. DO NOT BREAK, CRUSH, 360 tablet 1 Active insulin pen needle (BD Pen Needle Rowena 2nd Gen) 32G x 4 mm misc USE WITH INSULIN ONCE A DAY 100 each Active phenazopyridine (Pyridium) 200 MG tablet Take 1 tablet (200 mg) by mouth if needed in the morning, at noon, and at bedtime for bladder spasms (dysuria) for up to 3 days. 10 tablet 025 2024 Active metFORMIN XR (Glucophage-XR) 500 MG 24 [...] eorder (will not trigger notification to Pharmacy)) fluconazole (Diflucan) 150 MG tablet Take 1 tablet (150 mg) by mouth 1 (one) time for 1 dose. 1 tablet 025 2024 Active Problems Problem Noted Date Diagnosed Date Lower urinary tract symptoms (LUTS) 04/06/2024 Assessment & Plan (04/06/2024 5:09 PM EST): UA is negative today, will order culture and follow-up results. Advise increase p.o. fluids, take Pyridium tablets for the next 3 days. Treated for vaginal candidiasis and follow-up vaginal swab. Vaginal discharge 04/06/2024 Assessment & Plan (04/06/2024 5:09 PM EST): Rule out vaginal candidiasis, treat with fluconazole x 1 dose and follow-up vaginal swab results Cough in adult patient 03/02/2024 Viral upper [...] both her parents. She had services with [facility] for psychiatry and individual therapy, but lost [...] Plan (11/30/2023 1:26 PM EDT): -Following with [facility], last seen on -06/30/23 EGD Sen esophagus with mild chronic active inflammation, stomach mild chronic inactive inflammation, normal duodenum. -Repeat EGD in 2 years -Continue pantoprazole Assessment & Plan (09/09/2023 6:00 AM EDT): -Following with [facility], last seen on -06/30/23 EGD Sen [...] considering a bariatric surgery and went to [facility] wt management clinic. She restarted going to [facility] Wt management clinic. - She had worked with our diabetes education nurse, Ene Arias from Nov to Dec 2021. - Currently showing good attendance to [facility]; appreciated her effort - Eye exam: 01/24/23 [facility]. No diabetic retinopathy - Comprehensive [...] considering a bariatric surgery and went to [facility] wt management clinic - She had worked with our diabetes education nurse, Ene Arias from Nov to Dec 2021. - Currently showing good attendance to [facility]; appreciated her effort - Eye exam: 01/24/23 [facility]. No diabetic retinopathy - Comprehensive [...] considering a bariatric surgery and went to [facility] management clinic - She had worked with our diabetes education nurse, Ene Arias from Nov to Dec 2021. - Currently showing good attendance to [facility]; appreciated her effort - Eye exam: 01/24/23 [facility]. No diabetic retinopathy - Comprehensive [...] considering a bariatric surgery and went to [facility] management clinic - She had worked with our diabetes education nurse, Ene Arias from Nov to Dec 2021. - Currently showing good attendance to [facility]; appreciated her effort - Eye exam: 01/24/23 [facility]. No diabetic retinopathy - Comprehensive [...] considering a bariatric surgery and went to [facility] wt management clinic - She had worked with our diabetes education nurse, Ene Arias from Nov to Dec 2021. - Currently showing good attendance to [facility]; appreciated her effort - Eye exam: 01/24/23 [facility]. No diabetic retinopathy - Comprehensive [...] considering a bariatric surgery and went to [facility] wt management clinic - She had worked with our diabetes education nurse, Ene Arias from Nov to Dec 2021. - Refer to [facility] - Eye exam: 01/24/23 [facility]. No diabetic retinopathy - Comprehensive [...] considering a bariatric surgery and went to [facility] wt management clinic - She had worked with our diabetes education nurse, Ene Arias from Nov to Dec 2021. - Eye exam: 01/21/22 [facility]. No diabetic retinopathy - Comprehensive [...] considering a bariatric surgery and went to [facility] wt management clinic - She had worked with our diabetes education nurse, Ene Arias from Nov to Dec 2021. - Eye exam: 01/21/22 [facility]. No diabetic retinopathy - Comprehensive [...] considering a bariatric surgery and went to [facility] wt management clinic - She had worked with our diabetes education nurse, Ene Arias from Nov to Dec 2021. - Eye exam: 01/21/22 [facility]. No diabetic retinopathy - Comprehensive [...] considering a bariatric surgery and went to [facility] management clinic - She had worked with our diabetes education nurse, Ene Arias from Nov to Dec 2021. - Eye exam: 01/21/22 [facility]. No diabetic retinopathy - Comprehensive [...] considering a bariatric surgery and went to [facility] wt management clinic - She had worked with our diabetes education nurse, Ene Arias from Nov to Dec 2021. - Eye exam: 01/21/22 [facility]. No diabetic retinopathy - Comprehensive Foot exam: [...] considering a bariatric surgery and went to [facility] wt management clinic - She had worked with our diabetes education nurse, Ene Arias from Nov to Dec 2021. - Eye exam: 01/21/22 [facility]. No diabetic retinopathy - Comprehensive [...] 2021. - completed Partial Hospitalization Program at [facility] 11/09/21 - 11/23/21 - current medication: none -Previous medication treatment Hx: venlafaxine was self-discontinued; trazodone was prescribed by psychiatrist while she was attending [facility], but pt self-discontinued due to ineffectivenss; sertraline 50 mg daily, patient self-discontinued. - previously seeing [facility] clinician and waiting for psychiatrist, patient has not been engaged in behavioral health therapy currently. - contacted by [facility] and was referred to off-site service - patient has developed healthy coping skills Assessment & Plan (11/30/2023 1:22 PM EDT): - MDD vs. bipolar - severe exacerbation of Depression w/ SI in October 2021. - completed Partial Hospitalization Program at [facility] 11/09/21 - 11/23/21 - current medication: none -Previous medication treatment Hx: venlafaxine was self-discontinued; trazodone was prescribed by psychiatrist while she was attending [facility], but pt self-discontinued due to ineffectivenss; sertraline 50 mg daily, patient self-discontinued. - previously seeing [facility] clinician and waiting for psychiatrist, patient has not been engaged in behavioral health therapy currently. - contacted by [facility] behavioral health service and was referred to off-site service - patient has developed healthy coping skills Assessment & Plan (03/07/2023 5:55 AM EST): - MDD vs. bipolar - severe exacerbation of Depression w/ SI in October 2021. - completed Partial Hospitalization Program at [facility] 11/09/21 - 11/23/21 - current medication: none -Previous medication treatment Hx: venlafaxine was self-discontinued; trazodone was prescribed by psychiatrist while she was attending [facility], but pt self-discontinued due to ineffectivenss; sertraline 50 mg daily, patient self-discontinued. - previously seeing [facility] clinician and waiting for psychiatrist, patient has not been engaged in behavioral health therapy currently. - will consider referring back Assessment & Plan (11/12/2022 4:17 PM EDT): - severe exacerbation of Depression w/ SI in October 2021. - completed Partial Hospitalization Program at [facility] 11/09/21 - 11/23/21 - Medication: Sertraline 50 mg daily -Previous medication treatment Hx: venlafaxine was self-discontinued; trazodone was prescribed by psychiatrist while she was attending [facility], but pt self-discontinued due to ineffectivenss - still on waiting list for outpatient appt with psychiatrist and therapist. - Able to contract her safety today - Continue BHS with [facility] Assessment & Plan (08/30/2022 12:43 PM EDT): - severe exacerbation of Depression w/ SI in October 2021. - completed Partial Hospitalization Program at [facility] 11/09/21 - 11/23/21 - Medication: Sertraline 50 mg daily -Previous medication treatment Hx: venlafaxine was self-discontinued; trazodone was prescribed by psychiatrist while she was attending [facility], but pt self-discontinued due to ineffectivenss - still on waiting list for outpatient appt with psychiatrist and therapist. - Able to contract her safety today - Continue BHS with [facility] Assessment & Plan (06/24/2022 11:25 AM EDT): - severe exacerbation of Depression w/ SI in October 2021. - completed Partial Hospitalization Program at [facility] 11/09/21 - 11/23/21 - Medication treatment [...] 2021. - completed Partial Hospitalization Program at [facility] 11/09/21 - 11/23/21 - Medication treatment [...] 2021. - completed Partial Hospitalization Program at [facility] 11/09/21 - 11/23/21 - Medication treatment [...] 2021. - completed Partial Hospitalization Program at [facility] 11/09/21 - 11/23/21 - Medication treatment [...] - previously participated weight management program at [facility], recently started seeing them again. - goal of wieght being 171 lbs to get surgery done. - continue working on lifestyle modifications - associated comorbidity: STELLA, DM2 Assessment & Plan (11/26/2023 2:16 PM EDT): - previously participated weight management program at [facility] - continue working on lifestyle modifications - associated comorbidity: STELLA, DM2 Assessment & Plan (11/18/2022 7:07 AM EDT): - previously participated weight management program at [facility] - continue working on lifestyle modifications - associated comorbidity: STELLA, DM2 Assessment & Plan (04/04/2022 7:14 PM EST): - previously participated weight management program at [facility] - continue working on lifestyle modifications - associated comorbidity: STELLA, DM2 Assessment & Plan (02/22/2022 4:37 PM EST): - previously participated weight management program at [facility] - continue working on lifestyle modifications - [...] Encounters Date Type Department Care Team Description 04/06/2024 5:00 PM EST Office Visit [facility] [address] [place] [address] Lexis Spann MD Lower urinary tract symptoms (LUTS) (Primary Dx); Vaginal discharge 04/06/2024 Orders Only [facility] [address] [place] [address] Lexis Spann MD 04/01/2024 Telephone [facility] [address] [place] [phone] Rianna Solis RNcondenser tester 03/23/2024 Telephone [facility] [address] [place] [address] Cinthya Ray MD Nurse Triage 03/23/2024 Refill [facility] [address] [place] [address] Cinthya Ray MD 03/12/2024 Orders Only [facility] External Provider, [employer] [facility] [employer] 03/12/2024 Refill [facility] [address] [place] [address] Cinthya Ray MD Type 2 diabetes mellitus with hyperglycemia, without long-term current use of insulin ([facility]) 03/05/2024 Orders Only [facility] [address] [place] [address] Cinthya Ray MD Type 2 diabetes mellitus with other specified complication, with long-term current use of insulin ([facility]) (Primary Dx) 03/04/2024 Telephone [facility] [address] [place] [phone] Clint Janey, [place] april recall 03/02/2024 10:00 AM EST Office Visit [facility] [address] [address] Sonali Tellez MD Cough in adult patient 02/26/2024 2:00 PM EST Office Visit [facility] [address] [address] Sonali Tellez MD Viral upper respiratory infection (Primary Dx); Influenza 02/23/2024 Orders Only [facility] External Provider, [employer] 02/20/2024 2:00 PM EST Office Visit [facility] [address] [place] [address] [facility] 02/16/2024 Refill [facility] [address] [place] [address] Mayito Acuña, DyanD Type 2 diabetes mellitus with hyperglycemia, with long-term current use of insulin ([facility]) 02/13/2024 Travel 02/10/2024 Telephone [facility] [address] [place] [phone] Cinthya Ray MD Referral 02/05/2024 Orders Only [address] [address] Cinthya Ray MD Chronic left shoulder pain (Primary Dx) 01/31/2024 Orders Only [facility] [address] [place] [phone] Cinthya Ray MD Vitamin D deficiency (Primary Dx) 01/30/2024 8:00 AM EST Office Visit [facility] ADULT [facility] [address] [place] [address] Demario Bocanegra Dental calculus (Primary Dx) 01/28/2024 Telephone [facility] [address] [place] [phone] Cinthya Ray MD 01/27/2024 3:00 PM EST Office Visit [facility] [address] [facility] [place] [address] Cinthya Ray MD Type 2 diabetes mellitus [...] Generic External Data 01/25/2024 Travel 01/22/[address] [facility] [address] [facility] [place] [place] [address] Janey Jaramillo MA chart prep 01/20/2024 Travel 01/16/2024 3:30 PM EST Telemedicine [facility] [address] [place] [address] Mayito Acuña, DyanD Type 2 diabetes mellitus with hyperglycemia, with long-term current use of insulin (CMS/HCC) (Primary Dx) from Last 3 Months Immunizations Name Administration Dates Next Due DTP 05/12/1997, 4,1992,08/16,1992 Hep A, Adult 03/14/2023,11/10/2017 Hep A, ped/adol, 2 dose 01/06/2012 Hep B, Adolescent or Pediatric 12/22/1995,1994,10/19/1993 Hib ([facility]) 05/14/1993, 3,1992,04/12 IPV 05/12/1997, 4,1992,04/12 Influenza injectable [...] Sign Reading Time Taken Comments Blood Pressure 120/70 04/06/2024 5:10 PM EST Pulse 76 04/06/2024 5:10 PM EST Temperature 35.7 ??C (96.2 ??F) 04/06/2024 4:46 PM ES T Respiratory Rate 18 04/06/2024 4:46 PM EST Oxygen Saturation 99% 04/06/2024 4:46 PM EST Inhaled Oxygen Concentration - - Weight 82.1 kg (181 lb) 04/06/2024 4:46 PM EST Height 157.5 cm (5' 2 ) 03/02/2024 9:43 AM EST Body Mass Index 33.11 03/02/2024 9:43 AM EST Plan of Treatment Upcoming Encounters Date Type Department Care Team (Late st Contact Info) Description 04/23/2024 3:30 PM EDT Telemedicine [facility] [address] [place] [address] Mayito Acuña, PharmD [address] [place] [address] 07/30/2024 3:00 PM EDT Office Visit [facility] [address] [place] [address] Demario Bocanegra Health Maintenance Due Date Last [...] Alcohol/Substance Use Screening 01/26/2025 01/27/2024 Tobacco Screening 04/06/2025 04/06/2024 Dental X-Ray: Full Mouth 08/09/2025 08/08/2022 DTaP/Tdap/Td [...] 120/70(2024 5:10 PM EST) No Mayito Acuña, Citlali Hemoglobin A1c < 7 Result Component 6.1( 10:46 AM EST) No Mayito Acuña, Citlali Procedures Procedure Name Priority Date/Time Associated Diagnosis Comments POCT URINALYSIS DIPSTICK Routine 04/06/2024 5:13 PM EST Vaginal discharge BACTERIAL VAGINOSIS PANEL Routine 04/06/2024 5:04 PM EST CHLAMYDIA/N. GONORRHOEAE RNA, TMA, UROGENITAL Routine 04/06/2024 5:04 PM EST Vaginal discharge MR SHOULDER WO CONTRAST LEFT Routine 03/12/2024 [...] AUTO DIFFERENTIAL Routine 01/26/2024 10:46 AM EST HEPATITIS C AB W/REFL TO HCV RNA, [...] Relevant to Health Maintenance Results * POCT urinalysis dipstick manually resulted (04/06/2024 5:13 PM EST) Color, UA Yellow Clarity, UA Clear Glucose, UA Negative Bilirubin, UA Negative Ketones, UA Positive Spec Grav, UA 1.030 Blood, UA Negative Negative, None Detected pH, UA 6.0 Protein, UA Trace Urobilinogen, UA 0.2 Leukocytes, UA Negative Negative, Rare, Trace Nitrite, UA Negative Negative, None Detected Appearance, UA clear QC Media Lot # [id number] Lot# Expiration Date Urine 04/06/2024 5:13 PM EST Lexis Spann MD POINT OF CARE TEST ENTER /EDIT ORDERABLES Final Result * (ABNORMAL) Bacterial Vaginosis (04/06/2024 5:04 PM EST) TRICHOMONAS VAGINALIS DETECTION BY PCR NOT DETECTED Not Detect [facility] BACTERIAL VAGINOSIS DETECTION BY PCR POSITIVE(A) Negative [facility] Comment:The BV organism targ ets [...] DETECTION BY PCR NOT DETECTED Not Detect [facility] Deyanira glab krusei PCR NOT DETECTED Not Detect [facility] 04/06/2024 5:04 PM EST 04/07/2024 11:23 AM EST Lexis Spann MD LAB MICROBIOLOGY - GENER AL ORDERABLES Final Result [facility] [address] [place] [phone] * Chlamydia/N. Gonorrhoeae RNA, TMA, Urogenitial (04/06/2024 5:04 PM EST) CT PCR NOT DETECTED Not Detect. [facility] Comment:A not detected test result does not exclude the possibilityof infection because test results can be affected byimproper specimen collection, concurrent antibiotic therapy,or the number of organisms in the specimen which may bebelow the sensitivity of the test. As with many diagnostictests, results from the Xpert CT/NG assay should beinterpreted in conjunction with other laboratory andclinical data available to the clinician.Xpert CT/NG performance has not been evaluated in patientsless than 14 years of age. The assay should not be used forthe evaluationof suspected sexual abuse or for other medico-legalindications. Additional testing is recommended in anycircumstance when false positive or false negative resultscould lead to adverse medical, social or psychologicalconsequences. NG PCR NOT DETECTED Not Detect. [facility] Comment:A not detected test result does not exclude the possibilityof infection because test results can be affected byimproper specimen collection, concurrent antibiotic therapy,or the number of organisms in the specimen which may bebelow the sensitivity of the test. As with many diagnostictests, results from the Xpert CT/NG assay should beinterpreted in conjunction with other laboratory andclinical data available to the clinician.Xpert CT/NG performance has not been evaluated in patientsless than 14 years of age. The assay should not be used forthe evaluationof suspected sexual abuse or for other medico-legalindications. Additional testing is recommended in anycircumstance when false positive or false negative resultscould lead to adverse medical, social or psychologicalconsequences. Swab (Vaginal Swab) 04/06/2024 5:04 PM EST 04/07/2024 11:15 AM EST Narrative [facility] - 04/07/2024 1:26 PM EST Vaginal us Lexis Spann MD LAB MICROBIOLOGY - GENER AL ORDERABLES Final Result [facility] [address] [place] [phone] * MR Shoulder w/o Contrast Left (03/12/2024 7:15 PM EST) Anatomical Region Laterality Modality Upper Extremities, Shoulder Left Magn etic Resonance 03/12/2024 7:15 PM EST Narrative 03/15/2024 10:07 AM EST ? [employer] ?[address] ?[place] [address] ? Magnetic Resonance Report ? Signed ? Patient: Sonali Gill ?MR#: ?? [id number] ? : 1990 ?Acct:[id number] ? Age/Sex: 34 / F ?ADM Date: 03/12/24 ? Loc: HO.MRI ? Attending Dr: Al Hays MD ? Ordering Physician: Al Hays MD ?? Date of Service: 03/12/24 ?? Procedure(s): MR shoulder LT wo con ?? Accession Number(s): [id number] ? cc: Al Hays MD; Cinthya Ray [...] signed by Anand Vera MD in OV> ?03/15/241003 ? DD/ 14 ? TD/TT: 03/12/24 1940 ? Coil Binder: ? Procedure Note Donantoineter, Image - 03/15/[address] [address] Magnetic Resonance Report Signed Patient: Jeremy Gill#: [id number] : 1990Acct:[id number] Age/Sex: 34 / FADM Date: 03/12/24 Loc: HO.MRI Attending Dr: Al Hays MD Ordering Physician: Al Hays MD Date of Service: 03/12/24 Procedure(s): MR shoulder LT wo con Accession Number(s): [id number] cc: Al Hays MD; Cinthya Ray MD [...] OV> 03/15/24 1004 DD/ 14 TD/TT: 03/12/241939 Coil Binder: Result [facility] External Provider IMG MRI PROCEDURES Final Result * POCT Rapid Influenza B SEBASTIAN ID NOW (03/02/2024 10:18 AM EST) Only the most recent of2 resultswithin the time period is included. [facility] Influenza B Negative Negative, Indeterminate [facility] Swab 03/02/2024 10:1 8 AM EST Result [facility] Sonali Tellez MD POINT OF CARE TEST ENTER/E DIT ORDERABLES Final Result Performing Organization Address [facility] Co de Phone Number [facility] [address] [place] [phone] * POCT Rapid Influenza A SEBASTIAN ID NOW (03/02/2024 10:18 AM EST) Only the most recent of2 resultswithin the time period is included. [facility] Influenza A Negative Negative, Indeterminate [facility] Swab 03/02/2024 10:1 8 AM EST Result [facility] Sonali Tellez MD POINT OF CARE TEST ENTER/E DIT ORDERABLES Final Result Performing Organization Address City/[facility] Co de Phone Number [facility] [address] [place] [phone] * POCT Rapid Covid-19 BinaxNOW (03/02/2024 10:18 AM EST) Only the most recent of2 resultswithin the time period is included. [facility] Rapid COVID Ag Negative Swab 03/02/2024 10:1 8 AM EST Sonali Tellez MD POINT OF CARE TEST ENTER/E DIT ORDERABLES Final Result * POCT rapid strep A manually resulted (03/02/2024 10:18 AM EST) Rapid Strep A Screen Negative Negative, None Detected Swab 03/02/2024 10:1 8 AM EST Sonali Tellez MD POINT OF CARE TEST ENTER/E DIT ORDERABLES Final Result * POCT Rapid Strep A SEBASTIAN ID NOW (02/26/2024 2:42 PM EST) Pathologist [facility] Rapid Strep A Screen Negative Negative, None Detected Swab 02/26/2024 2:42 PM EST Sonali Tellez MD POINT OF CARE TEST ENTER/E DIT ORDERABLES Final Result * US Abdomen Comp w elastography (02/23/2024 8:41 AM EST) Anatomical Region Laterality Modality Abdomen Ultrasound 02/23/2024 8:41 AM EST Narrative 02/24/2024 10:28 AM EST ? [employer] [employer] ?[address] ?[place] [address] ? Ultrasound Report ? Signed ? Patient: Garcia MoeUmbertozac ?MR#: ?? [id number] ? : 1990 ?Acct:[id number] ? Age/Sex: 33 / F ?ADM Date: 02/23/24 ? Loc: HO.US ? Attending Dr: Nate Mijares MD ? Ordering Physician: Nate Mijares MD ?? Date of Service: 02/23/24 ?? Procedure(s): US abdomen comp w elastography ?? Accession Number(s): [id number] ? cc: Nate Mijares MD; Cinthya Ray [...] DD/ 0841 ? TD/TT: 02/23/24 0854 ? Coil Binder: ? Procedure Note Win, Image - 02/24/[address] [address] Ultrasound Report Signed Patient: Jeremy Gill#: [id number] : 1990Acct:[id number] Age/Sex: 33 / FADM Date: 02/23/24 Loc: HO.US Attending Dr: Nate Mijares MD Ordering Physician: Nate Mijares MD Date of Service: 02/23/24 Procedure(s): US abdomen comp w elastography Accession Number(s): [id number] cc: Nate Mijares MD; Cinthya Ray MD [...] by: Anand Vera MD 02/24/2024 10:25 AM [facility] Dictated By: Anand Vera MD Signed By: <Electronically signed by Anand Vera MD in OV> 02/24/24 1025 DD/ 0841 TD/TT: 02/23/24 0854 Coil Binder: [facility] External Provider IMG US PROCEDURES Final Result * XR Shoulder 2+ Views Left (01/27/2024 3:56 PM EST) Anatomical Region Laterality Modality Upper Extremities, Shoulder Left Radi ographic Imaging 01/27/2024 3:56 PM EST Narrative 01/28/2024 10:15 AM EST ?[facility] ?[address] ?[place] [address] ?XRay Report ? Signed ? Patient: Sonali Gill ?MR#: ?? [id number] ? : 1990 ?Acct:[id number] ? Age/Sex: 33 / F ?ADM Date: 01/27/24 ? Loc: HO.HHCX ? Attending Dr: Cinthya Ray MD ? Ordering Physician: Cinthya Ray MD ?? Date of Service: 01/27/24 ?? Procedure(s): XR shoulder LT min 2V ?? Accession Number(s): [id number] ? cc: Cinthya Ray MD ? EXAMINATION: [...] ??Ruthie Calderón MD ??01/28/2024 10:12 AM EST ?? RP ? Dictated By: ?Ruthie Calderón MD ? Signed By: ?<Electronically signed by Ruthie Calderón MD in OV> ? 01/28/24 1012 ? DD/ 1556 ? TD/TT: 01/27/24 1600 ? Coil Binder: ? Procedure Note Win, Image - 01/28/2024 [facility] [address] [place] [address] XRay Report Signed Patient: Jeremy Gill#: [id number] : 1990Acct:[id number] Age/Sex: 33 / FADM Date: 01/27/24 Loc: HO.HHCX Attending Dr: Cinthya Ray MD Ordering Physician: Cinthya Ray MD Date of Service: 01/27/24 Procedure(s): XR shoulder LT min 2V Accession Number(s): [id number] cc: Cinthya Ray MD EXAMINATION: XR SHOULDER, [...] 01/28/24 1012 DD/ 1556 TD/TT: 01/27/24 1600 Coil Binder: Cinthya Ray MD IMG XR PROCEDURES Edited Result - Final * XR Chest 2 Views (01/26/2024 10:47 AM EST) Anatomical Region Laterality Modality Chest Radiographic Viky ging 01/26/2024 10:4 7 AM EST Narrative 03/10/2024 4:39 PM EST ? [facility] [employer] ?[address] ?[place] [address] ?XRay Report ? Signed ? Patient: Jose Rosa,Sonali ?MR#: ?? [id number] ? : 1990 ?Acct:[id number] ? Age/Sex: 33 / F ?ADM Date: 12/16/24 ? Loc: HO.XRAY ? Attending Dr: Nate Mijares MD ? Ordering Physician: Nate Mijares MD ?? Date of Service: 01/26/24 ?? Procedure(s): XR chest 2V ?? Accession Number(s): [id number] ? cc: Nate Mijares MD; Cinthya Ray [...] DD/ 1047 ? TD/TT: 01/26/24 1055 ? Coil Binder: ? Procedure Note Donantoineter, Image - 03/10/2024 [place] [address] XRay Report Signed Patient: Jeremy Gill#: [id number] : 1990Acct:[id number] Age/Sex: 33 / FADM Date: 01/26/24 Loc: HERNESTO Attending Dr: Nate Mijares MD Ordering Physician: Nate Mijares MD Date of Service: 01/26/24 Procedure(s): XR chest 2V Accession Number(s): [id number] cc: Nate Mijares MD; Cinthya Ray MD [...] Esa Glover MD 03/10/2024 04:36 PM EST RP Dictated By: Esa Glover Signed By: <Electronically signed by Esa Glover in OV> 03/10/24 1636 DD/ 1047 TD/TT: 01/26/24 1055 Coil Binder: [facility] External Provider IMG XR PROCEDURES Edited Result - Final * (ABNORMAL) Vitamin D, 25-Hydroxy, Total, Immunoassay (01/26/2024 10:46 AM EST) Vitamin D 25-OH Total 15.9(L) >30 ng/mL [facility] Comment:Health Based Referen ce Values*< 20 ng/mL Bpeujvzbn67-32 ng/mL Insufficient> 30 ng/mL Sufficient*Jaylon BLUNT. N [...] Provider LAB BLOOD ORDERAB LES Final Result [facility] [address] [place] [phone] * Vitamin B12 (Cobalamin) and Folate Panel, Serum (01/26/2024 10:46 AM EST) Pathologist [facility] Vitamin B12 537 200 - 900 pg/mL [facility] Comment:NORMAL 200-900 PG/M L INDETERMINATE 160-199 PG/ML DEFICIENT < 160 PG/ML Folate 7.4 > or = 4.0 ng/mL [facility] Comment:Reference Values:> o r = 4.0 ng/mL< 4.0 ng/mL suggests folate deficiency Methotrexate, aminopterin and folinic acid(leucovorin) are chemotherapeutic agents whose molecularstructures are similar to folate; therefore, the Architectfolate assay cannot be used for patients using these drugs. 01/26/2024 10:4 6 AM EST 01/26/2024 10:46 AM EST Generic External Data Provider LAB BLOOD ORDERAB LES Final Result [facility] [address] [place] [address] [phone] * (ABNORMAL) CBC auto differential (01/26/2024 10:46 AM EST) [facility] White Blood Count 9.1 4.8 - 10.8 X10*3/uL [facility] Red Blood Count 4.78 4.20 - 5.50 X10*6/uL [facility] Hemoglobin 12.0 12.0 - 16.0 g/dl [facility] Hematocrit 37.7 37.0 - 47.0 % [facility] Mean Corpuscular Volume 78.9(L) 80.0 - 98.0 fL [facility] Mean Corpuscular Hemoglobin 25.1(L) 27.0 - 33.0 pg [facility] Mean Corpuscular HGB Conc 31.8 31.0 - 35.0 g/dl [facility] Red Cell Distribution Width 13.4 11.0 - 16.0 % [facility] Platelet Count 326 160 - 400 X10*3/uL [facility] Mean Platelet Volume 9.3(L) 9.4 - 12.3 fL [facility] Neutrophils Percent Auto 63.6 45 - 73 % [facility] Imm Gran Pct Auto 0.2 0.0 - 0.4 % [facility] Lymphocytes Percent Auto 29.9 20 - 40 % [facility] Monocytes Percent Auto 4.9 2 - 11 % [facility] Eosinophils Percent Auto 1.0 0 - 4 % [facility] Basophils Percent Auto 0.4 0 - 2 % [facility] NRBC Pct Auto 0.0 0.0 - 0.2 /100WBC [facility] Neutrophils Absolute Auto 5.8 2.0 - 8.3 x10*3/uL [facility] Imm Gran Abs Auto 0.02 0.00 - 0.03 X10*3/uL [facility] Lymphocytes Absolute Auto 2.7 1.2 - 4.9 X10*3/uL [facility] Monocytes Absolute Auto 0.4 0.1 - 1.2 X10*3/uL [facility] Eosinophils Absolute Auto 0.1 0.0 - 0.4 X10*3/uL [facility] Basophils Absolute Auto 0.0 0.0 - 0.2 X10*3/uL [facility] NRBC Abs Auto 0.000 0.0 - 0.012 X10*3/uL [facility] 01/26/2024 10:4 6 AM EST 01/26/2024 10:46 AM EST us Generic External Data Provider LAB BLOOD ORDERAB LES Final Result [facility] [address] [place] [phone] * (ABNORMAL) Insulin (01/26/2024 10:46 AM EST) Insulin 186(H) 2 - 29 uU/mL [facility] Comment:This test was perfor med using the Tracab chemiluminescentmethod. Values obtained from different assay methods [...] ORDERAB LES Final Result Performing Organization Address [facility] Co de Phone Number [facility] [address] [place] [phone] * (ABNORMAL) Zinc (01/26/2024 10:46 AM EST) Zinc 54(A) 60 - 130 mcg/dL [facility] Comment:This test was devjulioo ped and its analytical performancecharacteristics have been determined by [employer] [place], [place]. It hasnot been cleared or approved by the U.S. Food and DrugAdministration. This assay has been validated pursuantto the CLIA regulations and is used for clinicalpurposes.THIS TEST WAS PERFORMED AT:[employer]/[id number] [place] [address]NYVHPHHNIKKY MANNING MD,PHD 01/26/2024 10:4 6 AM EST 01/26/2024 10:46 AM EST Generic External Data Provider LAB BLOOD ORDERAB LES Final Result Performing Organization Address [facility] de Phone Number [facility] [address] [place] [phone] * Vitamin A (01/26/2024 10:46 AM EST) Vitamin A (Retinol) 41 38 - 98 mcg/dL [facility] Comment:Vitamin supplementat ion within 24 hours prior toblood draw may affect the accuracy of the results.This test was developed and its analytical performancecharacteristics have been determined by [employer] [place], [place]. It hasnot been cleared or approved by the U.S. Food and DrugAdministration. This assay has been validated pursuantto the CLIA regulations and is used for clinicalpurposes.THIS TEST WAS PERFORMED AT:[employer] [id number] [place] [address]LZTUMUNNIKKY MANNING MD,PHD 01/26/2024 10:4 6 AM EST 01/26/2024 10:46 AM EST Generic External Data Provider LAB BLOOD ORDERAB LES Final Result Performing Organization Address [facility] Co de Phone Number [facility] [address] [place] [phone] * (ABNORMAL) Vitamin B1 (01/26/2024 10:46 AM EST) Vitamin B1 <6(A) 8 - 30 nmol/L [facility] Comment:Vitamin supplementat ion within 24 hours prior toblood draw may affect the accuracy of the results.This test was developed and its analytical performancecharacteristics have been determined by [employer] [place], [place]. It hasnot been cleared or approved by the U.S. Food and DrugAdministration. This assay has been validated pursuantto the CLIA regulations and is used for clinicalpurposes.THIS TEST WAS PERFORMED AT:[employer]/[id number] [place] [address]RCOLETXNIKKY MANNING MD,PHD 01/26/2024 10:4 6 AM EST 01/26/2024 10:46 AM EST Generic External Data Provider LAB BLOOD ORDERAB LES Final Result Performing Organization Address [facility]/ZIP Co de Phone Number [facility] [address] [place] [phone] * (ABNORMAL) Hemoglobin A1c (01/26/2024 10:46 AM EST) Hemoglobin A1c 6.1(H) <6.0 % [facility] Comment:Hemoglobin A1C Refer ence Range Adults: 4.8 - 6.0 % Non diabetic: < 6.0 % Goal: < 7.0 %Additional Action Suggested: > 8.0 %Note: Hemoglobin A1c results are invalid for patients with abnormal amounts of HbF. Blood transfusions may impact the HbA1c concentration in the patient sample. Estimated Average Glucose 128 mg/dL [facility] Comment:eAG = Estimated ave rage glucose which is %A1C expressed asaverage glucose, using the formula of the O8A-JayftrpZrlyotp Glucose study (ADAG), Diabetes Care, Vol.31,#8,2007 01/26/2024 10:4 6 AM EST 01/26/2024 10:46 AM EST Generic External Data Provider LAB BLOOD ORDERAB LES Final Result Performing Organization Address [facility] Co de Phone Number [facility] [address] [place] [phone] * Ferritin (01/26/2024 10:46 AM EST) Pathologist [facility] Ferritin 15 10 - 122 ng/mL [facility] 01/26/2024 10:4 6 AM EST 01/26/2024 10:46 AM EST [employer] External Data Provider LAB BLOOD ORDERAB LES Final Result Performing Organization Address [facility] Co de Phone Number [facility] [address] [place] [phone] * (ABNORMAL) Lipid Panel with Reflex to Direct LDL (11/26/2023 11:30 AM EDT) Triglycerides 145 <150 mg/dL [facility] Comment:Desirable Triglyceri de: less than 150 mg/dLBorderline High Triglyceride 150-199 mg/dLHigh Triglyceride: 200-499 mg/dLVery High Triglyceride: greater than or equal to 5OO mg/dL Cholesterol 152 <200 mg/dL [facility] Comment:Desirable Cholestero l: less than 200 mg/dLBorderline High Cholesterol: 200-239 mg/dLHigh Cholesterol: greater than 239 mg/dL LDL Cholesterol Calculated 91 <100 mg/dL [facility] Comment:Desirable LDL: less than 100 mg/dLNear Optimal/Above Optimal LDL: 110- 129 mg/dLBorderline High LDL: 130-159 mg/dLHigh LDL: 160-189 mg/dLVery High LDL: greater than or equal to 190 mg/dL HDL Cholesterol 32(L) >40 mg/dL [facility] Comment:Desirable HDL: great er than 40 mg/dL Note: This HDL assay may give artificially low results in patients with liver disease. Blood 11/26/2023 11:3 0 AM EDT 11/26/2023 1:20 PM EDT Cinthya Ray MD LAB BLOOD ORDERABLES Final Resul t Performing Organization Address [facility] Co de Phone Number [facility] [address] [place] [phone] * Hepatitis C Antibody with Reflex to HCV, RNA, Quantitative, Real-Time PCR (11/26/2023 11:30 AM EDT) Hepatitis C Antibody Nonreactive Nonreactive [facility] Comment:Antibodies to HCV no t detected; does not exclude early acuteHCV infection. Blood Venous blood specimen / Unknown 11/26/2023 11:30 AM EDT 11/26/2023 1:20 PM EDT Cinthya Ray MD LAB BLOOD ORDERABLES Final Resul t Performing Organization Address City/[facility] Co de Phone Number [facility] [address] [place] [phone] * HIV-1/2 Antigen and Antibodies, Fourth Generation, with Reflexes (11/26/2023 11:30 AM EDT) HIV AB/AG Nonreactive Nonreactive [facility] Comment:HIV-1 p24 Ag and/or HIV-1/HIV-2 Ab not detected.A test result that is nonreactive does not exclude thepossibility of exposure to or infection with HIV-1 and/orHIV-2. Nonreactive results in this assay for individualswith prior exposure to HIV-1 and/or HIV-2 may be due toantigen and antibody levels that are below the limit ofdetection of this assay.The AlchipniMAZ HIV Ag/Ab Combo assay result andsupplemental assay results should be interpreted inconjunction with the patient's clinical presentation,history and other laboratory results. If the results areinconsistent with clinical evidence, additional testing issuggested to confirm the result. Blood Venous blood specimen / Unknown 11/26/2023 11:30 AM EDT 11/26/2023 1:20 PM EDT us Cinthya Ray MD LAB BLOOD ORDERABLES Final Resul t Performing Organization Address [facility] Co de Phone Number [facility] [address] [place] [address] [phone] * Albumin, Random Urine W/Creatinine (11/26/2023 12:00 AM EDT) Creatinine, Urine 238.24 mg/dL [facility] Microalbumin Urine 23.0 mg/L [facility] Microalbum Creatinine Ratio Ur 9.6 <30 ug/mg cr [facility] Comment:Albumin/Creatinine R atio Reference Ranges: Normal: < 30 ug/mg creatinine Microalbuminuria: 30 - 300 ug/mg creatinineClinical Albuminuria: > 300 ug/mg creatinine Urine 11/26/2023 11/26/2023 us Cinthya Ray MD LAB URINE ORDERABLES Final Resul t Performing Organization Address [facility]/ZIP Co de Phone Number [facility] [address] [place] [address] [phone] * Diabetes Eye Exam (01/24/2023) Eye Exam Normal Normal Comment:[facility] 01/24/2023 Historical Provider HEALTH MAINTENANCE Final Result * [...] has been evaluated with computer assisted technology. [facility] Basket Weaver : SEE COMMENT [facility] Comment: MXD, CT (ASCP) CT screening location: [address] ??[phone] Interpretation/R esult: Negative for intraepithelial lesion or malignancy. [facility] LMP: NONE [facility] Prev. BX: NONE [facility] Prev. PAP: NONE [facility] SOURCE: None given [facility] Statement Of Adequacy: SEE COMMENT [facility] Comment: Satisfactory for evaluation. Endocervical/transformation zone component present. Age and/or menstrual status not provided 07/24/2021 4:01 PM EDT Cinthya Ray MD LAB PATHOLOGY ORDERABLES Final R esult [facility] [address] from Last 3 Months or Most Recently Relevant to Health Maintenance Insurance [facility] C3 * Guarantor: Sonali Gill Account Type Relation to Patient Date of Phone Billing Address Personal/Family Self [place] [facility] [place] * Guarantor: Sonali Gill Account Type Relation to Patient Date of Phone Billing Address Personal/Family Self [address] [facility] [place] Care Teams Assistant Facility Manager Relationship Specialty Start Date End Date Cinthya Ray MD [address] [place] [phone] PCP - General Family Medicine 10/23/11 Mayito Acuña, DyanD [address] [place] [phone] Pharmacist Internal Medicine 03/07/23
--- OUTSIDE RECORDS SUMMARY | 2024-04-07 14:03 | XMS_ITS | Encounter Summary ---
Author Organization [employer] Address [address] [facility] 7t [place] [address] Care Team Providers Care Farm Equipment Engine Mechanic Name Role Phone Cinthya Ray MD Primary Care Provider [phone] Mayito Acuña PharmD Unavailable [phone] Encounter Details Date Type Department Care Team (Late st Contact Info) Description 04/06/2024 5:00 PM EST Office Visit [facility] [address] [place], [place] [phone] Lexis Spann MD [address] [place], [place] [phone] Lower urinary tract symptoms (LUTS) (Primary Dx); Vaginal discharge Social History Tobacco Use Types Packs/Day Years [...] the past 12 months, has t he [employer], gas, oil or water [employer] threatened to shut off services in your [...] (181 lb) 04/06/2024 4:46 PM EST Height - - Body Mass Index 33.11 03/02/2024 9:43 AM EST documented in this encounter Progress Notes * Lexis Spann MD - 04/06/2024 5:00 PM EST SUBJECTIVE: Sonali Rosa is a 34 y.o. year old female who presents for Walk In Center/UTI . Denies recent illness, injury, or hospitalization. Acute Concerns: Patient complains of dysuria and suprapubic pain x 3 days. Negative fever, back pain, or increased urinary frequency. She also has whitish/yellowish non foul smell vaginal discharge for the past week, not pruriginous. Last menstrual period 03/19/2024, she has BTL and is sexually active. Social History Social History Narrative Not on file Patient Active Problem List Diagnosis Allergic rhinitis Headache Insomnia Mixed anxiety and depressive disorder Obesity Obstructive sleep apnea syndrome History of stillbirth History of tubal ligation History of sexually transmitted disease Diabetes mellitus, type 2 (CMS/HCC) Migraine without aura and without status migrainosus, not intractable History of syphilis Postcholecystectomy diarrhea History of kidney stones Recurrent UTI Elevated blood pressure reading without diagnosis of hypertension Cyst, dermoid, scalp and neck Mixed dyslipidemia Left ear pain Panic attacks Recurrent candidiasis of vagina Tachycardia GERD (gastroesophageal reflux disease) Metabolic dysfunction-associated steatotic liver disease (MASLD) Post-cholecystectomy syndrome Sen's esophagus Major depression Mild intermittent asthma without complication Chronic left shoulder pain Decreased sensation of lower extremity Viral upper respiratory infection Cough in adult patient Lower urinary tract symptoms (LUTS) Vaginal discharge Family History Problem Relation Name Age of Onset Other (alcohol use disorder) Mother Other (substance use disorder) Mother Depression Mother Cancer Father Depression Father Depression Sister Asthma Brother Asthma Son Asthma Maternal Grandmother Diabetes type II Paternal Grandmother Hypertension Paternal Grandmother Arthritis Paternal Grandmother Review of Systems Constitutional: Negative for chills, fatigue and fever. HENT: Negative for congestion, ear pain, nosebleeds, rhinorrhea, sinus pressure, sore throat and trouble swallowing. Eyes: Negative for pain and discharge. Respiratory: Negative for cough, chest tightness and shortness of breath. Cardiovascular: Negative for chest pain, palpitations and leg swelling. Gastrointestinal: Negative for abdominal pain, blood in stool, constipation, diarrhea and nausea. Endocrine: Negative for polydipsia and polyuria. Genitourinary: Positive for dysuria and vaginal discharge. Negative for frequency, genital sores and pelvic pain. Musculoskeletal: Negative for back pain and neck pain. Skin: Negative for rash. Allergic/Immunologic: Negative for environmental allergies. Neurological: Negative for dizziness, seizures, weakness, light-headedness and headaches. Hematological: Negative for adenopathy. Psychiatric/Behavioral: Negative for agitation, behavioral problems, self-injury and suicidal ideas. OBJECTIVE: Vitals: 04/06/24 1646 04/06/24 1710 BP: 114/74 120/70 Pulse: (!) 16 76 Resp: 18 Temp: 96.2 ??F (35.7 ??C) TempSrc: Temporal SpO2: 99% Weight: 181 lb (82.1 kg) Physical Exam HENT: Right Ear: Tympanic membrane and ear canal normal. Left Ear: Tympanic membrane and ear canal normal. Mouth/Throat: Mouth: Mucous membranes are moist. Pharynx: No oropharyngeal exudate or posterior oropharyngeal erythema. Eyes: Pupils: Pupils are equal, round, and reactive to light. Cardiovascular: Rate and Rhythm: Regular rhythm. Pulses: Normal pulses. Heart sounds: Normal heart sounds. No murmur heard. Pulmonary: Breath sounds: Normal breath sounds. Abdominal: General: Bowel sounds are normal. Palpations: Abdomen is soft. Tenderness: There is abdominal tenderness in the suprapubic area. There is no right CVA tenderness or left CVA tenderness. Musculoskeletal: General: Normal range of motion. Cervical back: Neck supple. Skin: General: Skin is warm. Neurological: General: No focal deficit present. Mental Status: She is alert and oriented to person, place, and time. Psychiatric: Mood and Affect: Mood normal. Behavior: Behavior normal. Problem List Items Addressed This Visit Lower urinary tract symptoms (LUTS) - Primary UA is negative today, will order culture and follow-up results. Advise increase p.o. fluids, take Pyridium tablets for the next 3 days. Treated for vaginal candidiasis and follow-up vaginal swab. Relevant Orders Culture, Urine, Routine Vaginal discharge Rule out vaginal candidiasis, treat with fluconazole x 1 dose and follow-up vaginal swab results Relevant Orders Bacterial Vaginosis Chlamydia/N. Gonorrhoeae RNA, TMA, Urogenitial Follow Up: Current Outpatient Medications on File Prior to Visit Medication Sig Dispense Refill acetaminophen (Tylenol) 500 MG tablet TAKE 2 TABLETS BY MOUTH EVERY 6 HOURS IF NEEDED FOR MODERATE PAIN OR FEVER UP TO 25 DOSES. 50 tablet 0 Alcohol Swabs (Alcohol Prep) 70 % pads USE FOUR TIMES DAILY AND NEEDED 100 each 11 Blood Glucose Monitoring Suppl ([employer] [place] Lite) w/Device kit TEST BLOOD SUGAR EVERY DAY Blood Pressure Monitor kit Check blood pressure once daily and as needed 1 kit 0 cholecalciferol (Vitamin D-3) 25 MCG (1000 UT) tablet Take 1 tablet (25 mcg) by mouth Once per day.90 tablet 3 Continuous Glucose Supervisor Pastry ([employer] Audrey 2 [place]) device SCAN sensory EVERY 8 HOURS 1 each 0 Continuous Glucose Sensor (FreeStyle Audrey 2 Sensor) misc Apply 1 sensor every 14 days 2 each 11 fluticasone (Flonase) 50 MCG/ACT nasal spray SPRAY 2 SPRAYS INTO EACH NOSTRIL IN THE MORNING SHAKE GENTLY/PRIME BEFORE 1ST USE&CLEAN TIP/REPLACE CAP 48 mL 1 Glucose 2 g chewable tablet Chew 2 g Once per day. To use as needed if FS < 70 mg /dl or if having an episode of dizziness. 10 tablet 1 ibuprofen 600 MG tablet TAKE 1 TABLET BY MOUTH IN THE MORNING, AT NOON AND AT BEDTIME IF NEEDED FORMILD PAIN 90 tablet 0 insulin degludec (Tresiba FlexTouch) 100 UNIT/ML injection INJECT 48 UNITS SUBCUTANEOUSLY ONCE EVERY DAY 45 mL 3 insulin pen needle (BD Pen Needle Rowena 2nd Gen) 32G x 4 mm misc USE WITH INSULIN ONCE A DAY 100 each 11 melatonin 3 MG tablet TAKE 1 TABLET BY MOUTH 2-3 HOURS BEFORE YOUR DESIRED BEDTIME metFORMIN XR (Glucophage-XR) 500 MG 24 hr tablet TAKE 2 TABLETS BY MOUTH TWICE DAILY WITH BREAKFASTAND WITH DINNER. DO NOT BREAK, CRUSH, 360 tablet 1 metroNIDAZOLE (Metrogel) 0.75 % vaginal gel Insert one applicator into vagina at bedtime for 7 nights 45 g 0 Mounjaro 7.5 MG/0.5ML solution auto-injector INJECT ONE PEN (=7.5MG) SUBCUTANEOUSLY ONCE A WEEK DIRECTED 2 mL 5 Multiple Vitamin (multivitamin) tablet Take 1 tablet by mouth Once per day. 90 tablet 3 pantoprazole (ProtoNix) 40 MG EC tablet Take 40 mg by mouth Once per day. Sodium Fluoride (PreviDent 5000 Booster Plus) 1.1 % paste Please use pea size to brush your teeth twice daily. Spit after brushing. So not rinse. 112 g 1 sucralfate (Carafate) 1 GM/10ML suspension Take 10 mL (1 g) by mouth 4 times daily. 1200 mL 3 SUMAtriptan (Imitrex) 25 MG tablet TAKE 1 TAB ORALLY AFTER MIGRAINE ONSET MAY REPEAT AFTER 2HRS IF HEADACHE RETURNS,MAX 200MG IN 24HRS 9 tablet 0 TRUEplus Lancets 33G misc TEST BLOOD SUGAR FOUR TIMES DAILY 100 each 11 No current facility-administered medications on file prior to visit. documented in this encounter Miscellaneous Notes * Assessment & Plan Note - Lexis Spann MD - 04/06/2024 5:09 PM EST Associated Problem(s): Vaginal discharge Rule out vaginal candidiasis, treat with fluconazole x 1 dose and follow-up vaginal swab results * Assessment & Plan Note - Lexis Spann MD - 04/06/2024 5:09 PM EST Associated Problem(s): Lower urinary tract symptoms (LUTS) UA is negative today, will order culture and follow-up results. Advise increase p.o. fluids, take Pyridium tablets for the next 3 days. Treated for vaginal candidiasis and follow-up vaginal swab. * Addendum Note - Jose Brian MA - 04/06/2024 5:00 PM ESTAddended by: JOSE BRIAN on: 04/06/2024 05:15 PM Modules accepted: Orders documented in this encounter Plan of Treatment Upcoming Encounters Date Type Department Care Team (Late st Contact Info) Description 04/23/2024 3:30 PM EDT Telemedicine [facility] [address] [place] [address] Mayito Acuña, PharmD [address] [place] [address] 07/30/2024 3:00 PM EDT Office Visit [facility] [address] [place] [address] Demario Bocanegra Scheduled Orders Name Type Priority Associated Diagnoses Orde r Schedule Bacterial Vaginosis Microbiology Routine Vaginal discharge Expected: 04/06/2024 (Approximate), Expires: 04/06/2025 Culture, Urine, Routine Microbiology Routine Lower urinary tract symptoms (LUTS) Expected: 04/06/2024 (Approximate), Expires: 04/06/2025 documented as of this encounter Goals Goal [...] Routine 04/06/2024 5:13 PM EST Vaginal discharge CHLAMYDIA/N. GONORRHOEAE RNA, TMA, UROGENITAL Routine 04/06/2024 5:04 PM EST Vaginal discharge documented in this encounter Results * POCT urinalysis dipstick manually resulted [...] TEST ENTER /EDIT ORDERABLES Final Result * Chlamydia/N. Gonorrhoeae RNA, TMA, Urogenitial (04/06/2024 5:04 PM EST) CT PCR NOT DETECTED Not Detect. [facility] Comment:A not detected test result [...] psychologicalconsequences. NG PCR NOT DETECTED Not Detect. [facility] Comment:A not detected test result [...] PM EST 04/07/2024 11:15 AM EST Narrative [facility] - 04/07/2024 1:26 PM EST Vaginal us Lexis Spann MD LAB MICROBIOLOGY - GENER AL ORDERABLES Final Result [facility] [address] [place] [address] [phone] documented in this encounter Visit Diagnoses Diagnosis Lower urinary tract symptoms (LUTS)- Primary Vaginal discharge Leukorrhea, not specified as infective documented in this encounter Additional Health Concerns Assessment Noted Time PHQ-9 Depression Total Score: 11 024 9:48 AM EDT documented as of this encounter Care Teams Farm Equipment Engine Mechanic Relationship Specialty Start Date End Date Cinthya Ray MD [address] [place] [address] PCP - General Family Medicine 10/23/11 Mayito Acuña, PharmD [address] [place] [address] Pharmacist Internal Medicine 03/07/23 documented as of this encounter
--- OUTSIDE RECORDS SUMMARY | 2024-04-07 14:04 | XMS_ITS | Encounter Summary ---
Author Organization [employer] Address [address] [place] [address] 7 [place] [address] Care Team Providers Care Procurement Forester Name Role Phone Cinthya Ray MD Primary Care Provider [phone] Mayito Acuña PharmD Unavailable [phone] Reason for Visit * Reason Onset Date Comments Appointment Request 09/02/2022 Encounter Details Date Type Department Care Team ([facility] st Contact Info) Description 09/02/2022 Telephone C [facility] [address] [place], [place] [phone] Cinthya Ray MD [address] [place] [address] Appointment Request Social History Tobacco Use Types [...] her kidney failure.' Please contact pt at [phone] documented in this encounter Plan of Treatment Upcoming Encounters Date Type Department Care Team (Late st Contact Info) Description 04/23/2024 3:30 PM EDT Telemedicine [facility] [address] [place] [address] Mayito Acuña, PharmD [address] [place] [address] 07/30/2024 3:00 PM EDT Office Visit [facility] [address] [place] [address] Demario Bocanegra documented as of this encounter Visit Diagnoses Not on filedocumented in this encounter Care Teams Procurement Forester Relationship Specialty Start Date End Date Cinthya Ray MD [address] [place] [address] PCP - General Family Medicine 10/23/11 Mayito Acuña, PharmD [address] [place] [address] Pharmacist Internal Medicine 03/07/23 documented as of this encounter
--- OUTSIDE RECORDS SUMMARY | 2024-04-07 14:04 | XMS_ITS | Encounter Summary ---
Author Organization [employer] Address [address] [place] [address] 7 [place] [address] Care Team Providers Care Grid Inspector Name Role Phone Cinthya Ray MD Primary Care Provider [phone] Mayito Acuña PharmD Unavailable [phone] Reason for Visit * Reason Onset Date Comments Med Refill 03/12/2024 Encounter Details Date Type Department Care Team (Late st Contact Info) Description 03/12/2024 Refill [facility] [address] [place], [place] [phone] Cinthya Ray MD [address] [place] [address] Type 2 diabetes mellitus with hyperglycemia, without long-term current use of insulin ([facility]) Social History Tobacco Use Types Packs/Day Years [...] Description 04/23/2024 3:30 PM EDT Telemedicine [facility] [address] [place] [address] Mayito Acuña PharmD [address] [place] [address] 07/30/2024 3:00 PM EDT Office Visit [facility] [address] [place] [address] Demario Bocanegra documented as of this encounter [...] use of insulin ([facility]) documented in this encounter Additional Health Concerns Assessment Noted Time PHQ-9 Depression Total Score: 11 024 9:48 AM EDT documented as of this encounter Care Teams Grid Inspector Relationship Specialty Start Date End Date Cinthya Ray MD [address] [place] [address] PCP - General Family Medicine 10/23/11 Mayito Acuña, DyanD [address] [place] [address] Pharmacist Internal Medicine 03/07/23 documented as of this encounter
--- OUTSIDE RECORDS SUMMARY | 2024-04-07 14:04 | XMS_ITS | Encounter Summary ---
Author Organization [employer] Address [address] [place] [address] 7 [place] [address] Care Team Providers Care Manager Of Tires Sales Name Role Phone Cinthya Ray MD Primary Care Provider [phone] Mayito Acuña PharmD Unavailable [phone] Reason for Visit * Reason Onset Date Comments Med Refill 10/30/2023 Encounter Details Date Type Department Care Team (Late st Contact Info) Description 10/30/2023 Refill [facility] [address] [place], [place] [phone] Cinthya Ray MD [address] [place] [address] Type 2 diabetes mellitus with hyperglycemia, without long-term current use of insulin ([facility]) Social History Tobacco Use Types Packs/Day Years [...] Info) Description 04/23/2024 3:30 PM EDT Telemedicine [facility] [address] [place] [address] Mayito Acuña, DyanD [address] [place] [address] 07/30/2024 3:00 PM EDT Office Visit [facility] [address] [place] [address] Demario Bocanegra documented as of this encounter [...] hyperglycemia, without long-term current use of insulin ([facility]) documented in this encounter Additional Health Concerns Assessment Noted Time PHQ-9 Depression Total Score: 11 024 9:48 AM EDT documented as of this encounter Care Teams Manager Of Tires Sales Relationship Specialty Start Date End Date Cinthya Ray MD [address] [place] [address] PCP - General Family Medicine 10/23/11 Mayito Acuña, Citlali [address] [place] [address] Pharmacist Internal Medicine 03/07/23 documented as of this encounter
--- OUTSIDE RECORDS SUMMARY | 2024-04-07 14:04 | XMS_ITS | Encounter Summary ---
Author Organization [employer] [facility] Address [address] [place] [address] 7 [place] [address] Care Team Providers Care Food Trades Assistants Name Role Phone Cinthya Ray MD Primary Care Provider [phone] Mayito Acuña PharmD Unavailable [phone] Reason for Referral * Consultation (Routine) - Authorized Specialty Diagnoses / Procedures Referred By Contcarly t Referred To Contact Pharmacy Diagnoses Type 2 diabetes mellitus with hyperglycemia, with long-term current use of insulin (CMS/HCC) Cinthya Ray MD [address] [place] [address] Phone: tel: fax: Referral ID Status Reason Start Date Expiration Date Visits Requested Visits Authorized [id number] Authorized Consult and Treat 12/23/2023 12/22/2024 6 6 Encounter Details Date Type Department Care Team (Late st Contact Info) Description 12/23/2023 Orders Only [facility] [address] [place] [phone] Cinthya Ray MD [address] [place], [place] [phone] Type 2 diabetes mellitus with hyperglycemia, with [...] Info) Description 04/23/2024 3:30 PM EDT Telemedicine [facility] [address] [place] [address] Mayito Acuña, PharmD [address] [place] [address] 07/30/2024 3:00 PM EDT Office Visit [facility]ULT [facility] [address] [place] [address] Demario Bocanegra Scheduled Referrals Name Type Priority Associated Diagnoses Orde r Schedule Referral to Pharmacy CDTM Outpatient Referral Routine Type 2 diabetes mellitus with hyperglycemia, with long-term current use of insulin ([facility]) Ordered: 12/23/2023 documented as of this encounter [...] with long-term current use of insulin ([facility])- Primary documented in this encounter Additional Health Concerns Assessment Noted Time PHQ-9 Depression Total Score: 11 024 9:48 AM EDT documented as of this encounter Care Teams Food Trades Assistants Relationship Specialty Start Date End Date Cinthya Ray MD [address] [place] [address] PCP - General Family Medicine 10/23/11 Mayito Acuña PharmD [address] [place] [address] Pharmacist Internal Medicine 03/07/23 documented as of this encounter
--- OUTSIDE RECORDS SUMMARY | 2024-04-07 14:04 | XMS_ITS | Encounter Summary ---
Author Organization [employer] Address [address] [facility] [address]t [place] [address] Care Team Providers Care Egg Grader Name Role Phone Cinthya Ray MD Primary Care Provider [phone] Mayito Acuña PharmD Unavailable [phone] Encounter Details Date Type Department Care Team (Late st Contact Info) Description 03/12/2024 Orders Only [facility] External Provider, [facility] Social History Tobacco Use Types Packs/Day Years [...] Description 04/23/2024 3:30 PM EDT Telemedicine [facility] [address] [place] [address] Mayito Acuña PharmD [address] [place] [address] 07/30/2024 3:00 PM EDT Office Visit [facility] ADULT D[facility] [address] [place], [place] [phone] Demario oBcanegra documented as of this encounter Goals Goal [...] EST Narrative 03/15/2024 10:07 AM EST ? [facility] ?[address] ?[place] [address] ? Magnetic Resonance Report ? Signed ? Patient: Sonali Gill ?MR#: ?? [id number] ? : 1990 ?Acct:[id number] ? Age/Sex: 34 / F ?ADM Date: 03/12/24 ? Loc: HO.MRI ? Attending Dr: Al Hays MD ? Ordering Physician: Al Hays MD ?? Date of Service: 03/12/24 ?? Procedure(s): MR shoulder LT wo con ?? Accession Number(s): [id number] ? cc: Al Hays MD; Cinthya Ray [...] 03/12/ 1915 ? TD/TT: 03/12/ 1940 ? Psychometric Examiner: ? Procedure Note Donotuseinterpreter, Image - 03/15/[address] [address] Magnetic Resonance Report Signed Patient: Jeremy Gill#: [id number] : 1990Acct:[id number] Age/Sex: 34 / FADM Date: 03/12/24 Loc: HO.MRI Attending Dr: Al Hays MD Ordering Physician: Al Hays MD Date of Service: 03/12/24 Procedure(s): MR shoulder LT wo con Accession Number(s): [id number] cc: Al Hays MD; Cinthya Ray MD [...] OV> 03/15/24 1004 DD/ 14 TD/TT: 03/12/241939 Psychometric Examiner: [facility] External Provider IMG MRI PROCEDURES Final Result documented in this encounter Visit Diagnoses Not on filedocumented in this encounter Additional Health Concerns Assessment Noted Time PHQ-9 Depression Total Score: 11 024 9:48 AM EDT documented as of this encounter Care Teams Egg Grader Relationship Specialty Start Date End Date Cinthya Ray MD [address] [place] [address] PCP - General Family Medicine 10/23/11 Mayito Acuña, DyanD [address] [place] [address] Pharmacist Internal Medicine 03/07/23 documented as of this encounter
--- OUTSIDE RECORDS SUMMARY | 2024-04-07 14:04 | XMS_ITS | Encounter Summary ---
Author Organization [employer] Address [address] [facility] 7 [place] [address] Care Team Providers Care Memorial Designer Name Role Phone Cinthya Ray MD Primary Care Provider [phone] Mayito Acuña PharmD Unavailable [phone] Encounter Details Date Type Department Care Team ([facility] st Contact Info) Description 09/15/2023 Orders Only [facility] [address] [place], [place] [phone] Cinthya Ray MD [address] [place], [place] [phone] Type 2 diabetes mellitus with hyperglycemia, without long-term current use of insulin ([facility]) Social History Tobacco Use [...] [facility] [address] [place] [address] Mayito Acuña PharmD [address] [place] [address] 07/30/2024 3:00 PM EDT Office Visit [facility] ADULT DENTAL [address] [place] [address] Demario Bocanegra documented as of this encounter [...] hyperglycemia, without long-term current use of insulin ([facility]) documented in this encounter Additional Health Concerns Assessment Noted Time PHQ-9 Depression Total Score: 0 09/10/19 24 9:01 AM EDT documented as of this encounter Care Teams Memorial Designer Relationship Specialty Start Date End Date Cinthya Ray MD [address] [place] [address] PCP - General Family Medicine 10/23/11 Mayito Acuña, DyanD [address] [place] [address] Pharmacist Internal Medicine 03/07/23 documented as of this encounter
--- OUTSIDE RECORDS SUMMARY | 2024-04-07 14:04 | XMS_ITS | Encounter Summary ---
Author Organization [employer] Address [address] [facility] 7 [place] [address] Care Team Providers Care Drill Runner Helper Name Role Phone Cinthya Ray MD Primary Care Provider [phone] Mayito Acuña PharmD Unavailable [phone] Encounter Details Date Type Department Care Team ([facility] st Contact Info) Description 06/30/2023 Orders Only [facility] MEDICINE [address] [place], [place] [phone] Mayito Acuña, PharmD 230 [place], [place] [phone] Type 2 diabetes mellitus with hyperglycemia, with long-term current use of insulin ([facility]) (Primary Dx) Social History Tobacco Use Types [...] Info) Description 04/23/2024 3:30 PM EDT Telemedicine [facility] MEDICINE [address] [place] [address] Mayito Acuña PharmD 230 [place] [address] 07/30/2024 3:00 PM EDT Office Visit [facility] CHC ADULT DENTAL [address] [place] [address] Demario Bocanegra documented as of this encounter [...] hyperglycemia, with long-term current use of insulin ([facility]) documented in this encounter Results * Hematoxylin and Eosin Stain (06/30/2023 12:47 PM EDT) 06/30/2023 12:4 7 PM EDT 06/30/2023 1:27 PM EDT [facility] LABS - 07/02/2023 9:30 AM EDT ----- ------- Name: Sonali Gill ?Age/Sex: 33/F ? : 1990 Unit#: [id number] ?? Attend Dr: Jose Figueroa MD ?Re06/30/23 ?Status: DEP SDC ? Location: HO.SSS ?Disch: ? ----- ------- SPEC : [id number] ? RECD: 06/30/23-7 ? STATUS: ??SOUT ? REQ NUM: [id number] ? MELANIA: 06/30/23-1247 ? SUBM DR: Jose [...] Gill ?Age/Sex: 33/F ? : 1990 Unit#: [id number] ?? Attend Dr: Jose Figueroa MD ?Re06/30/23 ?Status: DEP SDC ? Location: HO.SSS ?Disch: ? ----- ------- SPEC : [id number] ? RECD: 06/30/23 ? STATUS: ??SOUT ? REQ NUM: [id number] ? MELANIA: 06/30/23-1246 ? SUBM DR: Jose [...] To: ?? Jose Figueroa MD ?? [address] ?? [place] [address] ?? [phone] ?? Cinthya Ray MD ?? [address] [facility] ?? [place] [address] ?? ----- ------- Signed (signature on file) Esa Aguiar MD 07/02/23 0930 ? ----- ------- ? END OF REPORT ? us Generic External Data Provider LAB BLOOD ORDERAB LES Final Result [facility] LABS [address] [place] [address] [phone] documented in this encounter Visit Diagnoses Diagnosis Type 2 diabetes mellitus with hyperglycemia, with long-term current use of insulin ([facility])- Primary documented in this encounter Additional Health Concerns Assessment Noted Time PHQ-9 Depression Total Score: 0 06/10/19 24 2:55 PM EDT documented as of this encounter Care Teams Drill Runner Helper Relationship Specialty Start Date End Date Cinthya Ray MD [address] [place] [address] PCP - General Family Medicine 10/23/11 Mayito Acuña, Citlali [address] [place] [address] Pharmacist Internal Medicine 03/07/23 documented as of this encounter
--- OUTSIDE RECORDS SUMMARY | 2024-04-07 14:04 | XMS_ITS | Encounter Summary ---
Author Organization [employer] Address [address] [facility] 7t [place] [address] Care Team Providers Care Ramp Flight Attendant Name Role Phone Cinthya Ray MD Primary Care Provider [phone] Mayito Acuña PharmD Unavailable [phone] Encounter Details Date Type Department Care Team ([facility] st Contact Info) Description 08/05/2023 Orders Only [facility] CHC MED & PEDS [address] [place], [place] [phone] Izzy Olvera FNP [address] [place] [address] Social History Tobacco Use Types Packs/Day Years [...] 04/23/2024 3:30 PM EDT Telemedicine [facility] MEDICINE [address] [place] [address] Mayito Acuña PharmD [address] [place] [address] 07/30/2024 3:00 PM EDT Office Visit [facility] CHC ADULT DENTAL [address] [place] [address] Demario Bocanegra documented as of this encounter [...] documented as of this encounter Care Teams Ramp Flight Attendant Relationship Specialty Start Date End Date Cinthya Ray MD [address] [place] [address] PCP - General Family Medicine 10/23/11 Mayito Acuña PharmD [address] [place] [address] Pharmacist Internal Medicine 03/07/23 documented as of this encounter
--- OUTSIDE RECORDS SUMMARY | 2024-04-07 14:04 | XMS_ITS | Encounter Summary ---
Author Organization [facility] Address [address] [place] [address] 7 [place] [address] Care Team Providers Care Printing Screen Assembler Name Role Phone Cinthya Ray MD Primary Care Provider [phone] Mayito Acuña PharmD Unavailable [phone] Reason for Visit * Reason Comments Med Refill Encounter Details Date Type Department Care Team (Late st Contact Info) Description 08/31/2022 Refill [facility] MEDICINE [address] [place] [address] Starla Nuñez MD [address] [place] [address] Injury of head, initial encounter Social History [...] Description 04/23/2024 3:30 PM EDT Telemedicine [facility] MEDICINE [address] [place] [address] Mayito Acuña, Citlali [address] [place] [address] 07/30/2024 3:00 PM EDT Office Visit [facility] CHC ADULT DENTAL [address] [place] [address] Demario Bocanegra documented as of this encounter Visit Diagnoses Diagnosis Injury of head, initial encounter documented in this encounter Care Teams Printing Screen Assembler Relationship Specialty Start Date End Date Cinthya Ray MD [address] [place] [address] PCP - General Family Medicine 10/23/11 Mayito Acuña, Citlali [address] [place] [address] Pharmacist Internal Medicine 03/07/23 documented as of this encounter
--- OUTSIDE RECORDS SUMMARY | 2024-04-07 14:04 | XMS_ITS | Clinical Summary ---
Author Organization [facility] Address [address] [place] [address] Phone Care Team Providers Care Government Documents Librarian Name Role Phone Unavailable Primary Care Provider Unavailabl e Allergies No known active allergies Encounters Date Type Department Care Team Description 02/29/2024 2:07 AM EST - 02/29/2024 3:08 AM EST Emergency [facility] Emergency [address] [place] [address] Viral syndrome (Primary Dx) Discharge [...] molecular study (02/29/2024 1:27 AM EST) Pathologist [facility] Adenovirus Detection by PCR Not Detected Not Detected LAB MICROBIOLOGY METHOD 02/29/2024 3:00 AM EST [facility] Influenza A PCR Not Detected Not Detected LAB MICROBIOLOGY METHOD 02/29/2024 3:00 AM EST [facility] Influenza B PCR Not Detected Not Detected LAB MICROBIOLOGY METHOD 02/29/2024 3:00 AM EST [facility] Coronavirus 229E Not Detected Not Detected LAB MICROBIOLOGY METHOD 02/29/2024 3:00 AM [facility] Coronavirus HKU1 Not Detected Not Detected LAB MICROBIOLOGY METHOD 02/29/2024 3:00 AM [facility] Coronavirus OC43 Not Detected Not Detected LAB MICROBIOLOGY METHOD 02/29/2024 3:00 AM EST [facility] Coronavirus NL63 Not Detected Not Detected LAB MICROBIOLOGY METHOD 02/29/2024 3:00 AM EST [facility] Parainfluenza Virus 1 Not Detected Not Detected LAB MICROBIOLOGY METHOD 02/29/2024 3:00 AM [facility] Parainfluenza Virus 2 Not Detected Not Detected LAB MICROBIOLOGY METHOD 02/29/2024 3:00 AM [facility] Parainfluenza Virus 3 Not Detected Not Detected LAB MICROBIOLOGY METHOD 02/29/2024 3:00 AM EST [facility] Parainfluenza Virus 4 Not Detected Not Detected LAB MICROBIOLOGY METHOD 02/29/2024 3:00 AM [facility] RSV PCR Not Detected Not Detected LAB MICROBIOLOGY METHOD 02/29/2024 3:00 AM [facility] Human Metapneumovirus A and B Not Detected Not Detected LAB MICROBIOLOGY METHOD 02/29/2024 3:00 AM [facility] Rhinovirus/Entero virus Not Detected Not Detected LAB MICROBIOLOGY METHOD 02/29/2024 3:00 AM EST [facility] Bordetella pertussis Not Detected Not Detected LAB MICROBIOLOGY METHOD 02/29/2024 3:00 AM [facility] Bordetella parapertussis Not Detected Not Detected LAB MICROBIOLOGY METHOD 02/29/2024 3:00 AM [facility] Mycoplasma pneumo by PCR Not Detected Not Detected LAB MICROBIOLOGY METHOD 02/29/2024 3:00 AM [facility] Chlamydia pneumoniae Not Detected Not Detected LAB MICROBIOLOGY METHOD 02/29/2024 3:00 AM [facility] SARS COV-2 Not Detected Not Detected LAB MICROBIOLOGY METHOD 02/29/2024 3:00 AM [facility] Swab Both anterior nares / Unknown Non-blood Collection / Unknown 02/29/2024 1:27 AM EST 02/29/2024 1:46 AM [facility] LAB - 02/29/2024 3:00 AM EST Testing was performed using the [employer] Respiratory Pathogen PCR Assay. All results must [...] Valero MD LAB MICROBIOLOGY - GENERAL [facility] Final Result [facility] [address] [place] [address], from Last 3 Months Insurance MEDICAID - [place]
--- OUTSIDE RECORDS SUMMARY | 2024-04-07 14:04 | XMS_ITS | Encounter Summary ---
Author Organization [employer] Address [address] [place] [address] 7 [place] [address] Care Team Providers Care Truck Crane Operator Helper Name Role Phone Cinthya Ray MD Primary Care Provider [phone] Mayito Acuña PharmD Unavailable [phone] Reason for Visit * Reason Onset Date Comments Med Refill 12/24/2023 Encounter Details Date Type Department Care Team (Late st Contact Info) Description 12/24/2023 Refill [facility] CHC MED & PEDS [address] [place], [place] [phone] Cinthya Ray MD [address] [place] [address] Type 2 diabetes mellitus with hyperglycemia, without long-term current use of insulin ([facility]) Social History Tobacco Use Types Packs/Day Years [...] 04/23/2024 3:30 PM EDT Telemedicine [facility] MEDICINE [address] [place] [address] Mayito Acuña PharmD [address] [place] [address] 07/30/2024 3:00 PM EDT Office Visit [facility] CHC ADULT DENTAL [address] [place] [address] Demario Bocanegra documented as of this encounter Goals Goal Patient Goal Type Associated Problems Recent Progress Patient-Stated? Author Blood Pressure < 140/90 Blood Pressure 120/70(2024 5:10 PM EST) No Mayito Acuña PharmD Hemoglobin A1c < 7 Result Component 6.1( 10:46 AM EST) No Maytio Acuña PharmD documented as of this encounter Visit Diagnoses Diagnosis Type 2 diabetes mellitus with hyperglycemia, without long-term current use of insulin ([facility]) documented in this encounter Additional Health Concerns Assessment Noted Time PHQ-9 Depression Total Score: 11 024 9:48 AM EDT documented as of this encounter Care Teams Truck Crane Operator Helper Relationship Specialty Start Date End Date Cinthya Ray MD [address] [place] [address] PCP - General Family Medicine 10/23/11 Mayito Acuña, DyanD [address] [place] [address] Pharmacist Internal Medicine 03/07/23 documented as of this encounter
--- OUTSIDE RECORDS SUMMARY | 2024-04-07 14:04 | XMS_ITS | Encounter Summary ---
Author Organization [employer] Address [address] [place] [address] 7 [place] [address] Care Team Providers Care Exam Proctor Name Role Phone Cinthya Ray MD Primary Care Provider Mayito Acuña PharmD Unavailable [phone] Reason for Visit * Reason Onset Date Comments Med Refill 01/03/2023 Encounter Details Date Type Department Care Team (Late st Contact Info) Description 01/03/[address] [facility] MEDICINE [address] [place], [place] [phone] Cinthya Ray MD [address] [place], [place] [phone] Social History Tobacco Use Types Packs/Day Years [...] 3:30 PM EDT Telemedicine [facility] MEDICINE [address] [place] [address] Mayito Acuña, PharmD [address] [place] [address] 07/30/2024 3:00 PM EDT Office Visit [facility] ADULT DENTAL [address] [place] [address] Demraio Bocanegra documented as of this encounter Visit Diagnoses Not on filedocumented in this encounter Care Teams Exam Proctor Relationship Specialty Start Date End Date Cinthya Ray MD [address] [place] [address] PCP - General Family Medicine 10/23/11 Mayito Acuña, PharmD [address] [place] [address] Pharmacist Internal Medicine 03/07/23 documented as of this encounter
--- OUTSIDE RECORDS SUMMARY | 2024-04-07 14:04 | XMS_ITS | Encounter Summary ---
Author Organization [employer] [facility] Address [address] [place] [address] 7 [place] [address] Care Team Providers Care Batch Or Continuous Still Operator Name Role Phone Cinthya Ray MD Primary Care Provider [phone] Mayito Acuña PharmD Unavailable [phone] Reason for Visit * Reason Onset Date Comments Med Refill 10/30/2023 Encounter Details Date Type Department Care Team (Late st Contact Info) Description 10/30/2023 Refill [facility] MEDICINE [address] [place], [place] [phone] Cinthya Ray MD [address] [place], [place] [phone] Social History Tobacco Use Types Packs/Day Years [...] 04/23/2024 3:30 PM EDT Telemedicine [facility] MEDICINE [address] [place] [address] Mayito Acuña PharmD [address] [place] [address] 07/30/2024 3:00 PM EDT Office Visit [facility] CHC ADULT DENTAL [address] [place] [address] Demario Bocanegra documented as of this encounter [...] documented as of this encounter Care Teams Batch Or Continuous Still Operator Relationship Specialty Start Date End Date Cinthya Ray MD [address] [place] [address] PCP - General Family Medicine 10/23/11 Mayito Acuña, PharmD [address] [place] [address] Pharmacist Internal Medicine 03/07/23 documented as of this encounter
--- OUTSIDE RECORDS SUMMARY | 2024-04-07 14:04 | XMS_ITS | Encounter Summary ---
Author Organization [employer] Address [address] [place] [address] 7 [place] [address] Care Team Providers Care Public Information Relations Manager Name Role Phone Cinthya Ray MD Primary Care Provider [phone] Mayito Acuña PharmD Unavailable [phone] Reason for Visit * Reason Onset Date Comments Med Refill 09/29/2023 Encounter Details Date Type Department Care Team (Late st Contact Info) Description 09/29/2023 Refill [facility] CHC MED & PEDS [address] [place], [place] [phone] Cinthya Ray MD [address] [place] [address] Type 2 diabetes mellitus with hyperglycemia, without long-term current use of insulin ([facility]) Social History Tobacco Use Types [...] 04/23/2024 3:30 PM EDT Telemedicine [facility] MEDICINE [address] [place] [address] Mayito Acuña, DyanD [address] [place] [address] 07/30/2024 3:00 PM EDT Office Visit [facility] CHC ADULT DENTAL [address] [place] [address] Demario Bocanegra documented as of this encounter [...] without long-term current use of insulin ([facility]) documented in this encounter Additional Health Concerns Assessment Noted Time PHQ-9 Depression Total Score: 11 024 9:48 AM EDT documented as of this encounter Care Teams Public Information Relations Manager Relationship Specialty Start Date End Date Cinthya Ray MD [address] [place] [address] PCP - General Family Medicine 10/23/11 Mayito Acuña, Citlali [address] [place] [address] Pharmacist Internal Medicine 03/07/23 documented as of this encounter
--- OUTSIDE RECORDS SUMMARY | 2024-04-07 14:04 | XMS_ITS | Encounter Summary ---
Author Organization [employer] Address [address] [place] [address] 7 [place] [address] Care Team Providers Care Craft Recruiter Name Role Phone Cinthya Ray MD Primary Care Provider [phone] Mayito Acuña PharmD Unavailable [phone] Reason for Visit * Reason Onset Date Comments Med Refill 09/29/2023 Encounter Details Date Type Department Care Team (Late st Contact Info) Description 09/29/2023 Refill [facility] MEDICINE [address] [place], [place] [phone] Cinthya Ray MD [address] [place], [place] [phone] Type 2 diabetes mellitus with hyperglycemia, without long-term current use of insulin ([facility]) Social History Tobacco Use Types [...] 04/23/2024 3:30 PM EDT Telemedicine [facility] MEDICINE [address] [place] [address] Mayito Acuña, PharmD [address] [place] [address] 07/30/2024 3:00 PM EDT Office Visit [facility] CHC ADULT DENTAL [address] [place] [address] Demario Bocanegra documented as of this encounter Goals Goal Patient Goal Type Associated Problems Recent Progress Patient-Stated? Author Blood Pressure < 140/90 Blood Pressure 120/70(2024 5:10 PM EST) No Mayito Acuña, PharmD Hemoglobin A1c < 7 Result Component 6.1( 10:46 AM EST) No Mayito Acuña PharmD documented as of this encounter Visit Diagnoses Diagnosis Type 2 diabetes mellitus with hyperglycemia, without long-term current use of insulin ([facility]) documented in this encounter Additional Health Concerns Assessment Noted Time PHQ-9 Depression Total Score: 11 024 9:48 AM EDT documented as of this encounter Care Teams Craft Recruiter Relationship Specialty Start Date End Date Cinthya Ray MD [address] [place] [address] PCP - General Family Medicine 10/23/11 Mayito Acuña, Citlali [address] [place] [address] Pharmacist Internal Medicine 03/07/23 documented as of this encounter
--- OUTSIDE RECORDS SUMMARY | 2024-04-07 14:04 | XMS_ITS | Encounter Summary ---
Author Organization [facility] Address [address] [place] [address] 7 [place] [address] Care Team Providers Care Coil Winding Machines Set Up Mechanic Name Role Phone Citnhya Ray MD Primary Care Provider [phone] Mayito Acuña PharmD Unavailable [phone] Reason for Visit * Reason Onset Date Comments Med Refill 11/02/2023 Encounter Details Date Type Department Care Team (Late st Contact Info) Description 11/02/2023 Refill [facility] MEDICINE 230 [place], [place] [phone] Cinthya Ray MD [address] [place], [place] [phone] Social History Tobacco Use Types Packs/Day Years [...] but unableto make. Pt will come to [facility] today open till 8pm. Pt reports drinking [...] Gill Sent: 11/10/2023 5:32 PM EDT To: [facility] Front Office Subject: Appointment Request Appointment Request From: Sonali Rosa With Provider: Cinthya Ray MD [[facility] MEDICINE] Preferred Date Range: 11/11/2023 - 11/13/2023 [...] Telemedicine [facility] MEDICINE [address] [place] [address] Mayito Acuña PharmD [address] [place] [address] 07/30/2024 3:00 PM EDT Office Visit [facility] ADULT DENTAL [address] [place] [address] Demario Bocanegra documented as of this encounter [...] Noted Time PHQ-9 Depression Total Score: 11 09/28/ 024 9:48 AM EDT documented as of this encounter Care Teams Coil Winding Machines Set Up Mechanic Relationship Specialty Start Date End Date Cinthya Ray MD [address] [place] [address] PCP - General Family Medicine 10/23/11 Mayito Acuña PharmD [address] [place] [address] Pharmacist Internal Medicine 03/07/23 documented as of this encounter
--- OUTSIDE RECORDS SUMMARY | 2024-04-07 14:04 | XMS_ITS | Encounter Summary ---
Author Organization [employer] Address [address] [place] [address] 7 [place] [address] Care Team Providers Care Tester Operator Helper Name Role Phone Cinthya Ray MD Primary Care Provider [phone] Mayito Acuña PharmD Unavailable [phone] Reason for Visit * Reason Onset Date Comments Med Refill 11/02/2023 Encounter Details Date Type Department Care Team (Late st Contact Info) Description 11/02/2023 Refill [facility] CHC MED & PEDS [address] [place], [place] [phone] Cinthya Ray MD [address] [place] [address] Type 2 diabetes mellitus with hyperglycemia, without long-term current use of insulin ([facility]) Social History Tobacco Use Types Packs/Day Years [...] Description 04/23/2024 3:30 PM EDT Telemedicine [facility] MEDICINE [address] [place] [address] Mayito Acuña, DyanD [address] [place] [address] 07/30/2024 3:00 PM EDT Office Visit [facility] CHC ADULT DENTAL [address] [place] [address] Demario Bocanegra documented as of this encounter [...] without long-term current use of insulin ([facility]) documented in this encounter Additional Health Concerns Assessment Noted Time PHQ-9 Depression Total Score: 11 024 9:48 AM EDT documented as of this encounter Care Teams Tester Operator Helper Relationship Specialty Start Date End Date Cinthya Ray MD [address] [place] [address] PCP - General Family Medicine 10/23/11 Mayito Acuña, Citlali [address] [place] [address] Pharmacist Internal Medicine 03/07/23 documented as of this encounter
--- OUTSIDE RECORDS SUMMARY | 2024-04-07 14:04 | XMS_ITS | Encounter Summary ---
Author Organization [facility] Address [address] [place] [address] 7 [place] [address] Care Team Providers Care Wood Turning Lathe Operator Name Role Phone Cinthya Ray MD Primary Care Provider [phone] Mayito Acuña PharmD Unavailable [phone] Reason for Visit * Reason Onset Date Comments Med Refill 08/06/2023 Encounter Details Date Type Department Care Team (Late st Contact Info) Description 08/06/2023 Refill [facility] MEDICINE [address] [place], [place] [phone] Cinthya Ray MD [address] [place], [place] [phone] Social History Tobacco Use Types Packs/Day Years [...] Description 04/23/2024 3:30 PM EDT Telemedicine [facility] MEDICINE [address] [place] [address] Mayito Acuña PharmD [address] [place] [address] 07/30/2024 3:00 PM EDT Office Visit [facility] CHC ADULT DENTAL [address] [place] [address] Demario Bocanegra documented as of this encounter [...] documented as of this encounter Care Teams Wood Turning Lathe Operator Relationship Specialty Start Date End Date Cinthya Ray MD [address] [place] [address] PCP - General Family Medicine 10/23/11 Mayito Acuña, PharmD [address] [place] [address] Pharmacist Internal Medicine 03/07/23 documented as of this encounter
--- OUTSIDE RECORDS SUMMARY | 2024-04-07 14:04 | XMS_ITS | Encounter Summary ---
Author Organization [employer] [facility] Address [address] [place] [address] 7 [place] [address] Care Team Providers Care Hearing Therapy Director Name Role Phone Cinthya Ray MD Primary Care Provider [phone] Mayito Acuña PharmD Unavailable [phone] Reason for Visit * Reason Onset Date Comments Results 12/09/2022 Encounter Details Date Type Department Care Team ([facility] st Contact Info) Description 12/09/2022 Telephone [facility] MEDICINE [address] [place], [place] [phone] Cinthya Ray MD [address] [place] [address] Results Social History Tobacco Use Types Packs/Day [...] to US results. Please contact pt at [phone] documented in this encounter Plan of Treatment Upcoming Encounters Date Type Department Care Team (Late st Contact Info) Description 04/23/2024 3:30 PM EDT Telemedicine [facility] MEDICINE [address] [place] [address] Mayito Acuña, Citlali [address] [place] [address] 07/30/2024 3:00 PM EDT Office Visit [facility] ADULT DENTAL [address] [place] [address] Demario Bocanegra documented as of this encounter Visit Diagnoses Not on filedocumented in this encounter Care Teams Hearing Therapy Director Relationship Specialty Start Date End Date Cinthya Ray MD [address] [place] [address] PCP - General Family Medicine 10/23/11 Mayito Acuña, PharmD [address] [place] [address] Pharmacist Internal Medicine 03/07/23 documented as of this encounter
== END 2024-04-07 11:10 | disposition home or self-care (01) ==
LOC: HO.LNP 11:09
PROVIDERS: Visit Provider Internal Medicine
DX: N89.8 Other specified noninflammatory disorders of vagina (principal); R39.9 Unspecified symptoms and signs involving the genitourinary system
CPT/HCPCS: 81515; 87086; 87088; 87186; 87491; 87591

== ENCOUNTER 2024-04-15 07:58 | Outpatient (REF) | payer MEDICAID, SELFPAY ==
--- NOTE | ~2024-04-15 | FL_ITS ---
EXAMINATION: XR FLUOROSCOPY UPPER GI WITH AIR CLINICAL INFORMATION: Preoperative evaluation prior to bariatric surgery COMPARISON: None TECHNIQUE: Fluoroscopic air contrast upper GI examination was performed utilizing standard techniques with thin and thick barium and effervescent granules. Numerous spot images were obtained. FINDINGS: Dual and single contrast images of the esophagus demonstrate normal caliber, contour, and mucosal pattern. No evidence of stricture, mass, or ulcerations identified. Esophageal peristalsis was normal. No evidence of hiatus hernia identified. Mild gastroesophageal reflux is seen in the midesophagus. Dual contrast and single contrast images of the stomach demonstrated normal contour and mucosal pattern without evidence of mass, ulceration, or other abnormality. Contrast freely passed into the gastric antrum and duodenal bulb without delay. Single and air-contrast images of the duodenal bulb demonstrate no abnormality. The duodenal sweep has a normal appearance, course, and mucosal fold appearance. The imaged proximal jejunum has a normal fold pattern and caliber. FLUOROSCOPY TIME: 3 minutes 17 seconds Number of Spot Images: 11 Number of Cine: 14 DOSE AREA PRODUCT: [id number] uGy-m2 (microgray-meter squared) FL/FL upper GI w air IMPRESSION: 1. Mild gastroesophageal reflux, otherwise, unremarkable upper GI series. This procedure was performed by Umberto Hansen PA-C, and supervised by Dr. Ornelas Electronically signed by: Jeremi Ornelas MD 04/19/2024 01:30 PM EDT
--- OUTSIDE RECORDS SUMMARY | 2024-04-15 08:04 | XMS_ITS | Encounter Summary ---
Author Organization [employer] Address [address] [facility] 7 [place] [address] Care Team Providers Care Graphic Design Intern Name Role Phone Cinthya Ray MD Primary Care Provider [phone] Mayito Acuña PharmD Unavailable [phone] Encounter Details Date Type Department Care Team (Late st Contact Info) Description 03/05/2024 Orders Only [facility] MEDICINE [address] [place], [place] [phone] Cinthya Ray MD 230 [place], [place] [phone] Type 2 diabetes mellitus with other specified complication, with long-term current use of insulin ([facility]) (Primary Dx) Social History Tobacco Use Types [...] the past 12 months, has t he [employer] gas, oil or water company threatened to [...] Info) Description 04/23/2024 3:30 PM EDT Telemedicine [facility] MEDICINE [address] [place] [address] Mayito Acuña PharmD [address] [place] [address] 07/30/2024 3:00 PM EDT Office Visit [facility] CH[facility] ADULT DENTAL [address] [place] [address] Demario Bocanegra documented as of this encounter [...] use of insulin ([facility])- Primary documented in this encounter Additional Health Concerns Assessment Noted Time PHQ-9 Depression Total Score: 11 024 9:48 AM EDT documented as of this encounter Care Teams Graphic Design Intern Relationship Specialty Start Date End Date Cinthya Ray MD [address] [place] [address] PCP - General Family Medicine 10/23/11 Mayito Acuña PharmD [address] [place] [address] Pharmacist Internal Medicine 03/07/23 documented as of this encounter
--- OUTSIDE RECORDS SUMMARY | 2024-04-15 08:04 | XMS_ITS | Encounter Summary ---
Author Organization [email or web address] Address [address] [facility] 7 [place] [address] Care Team Providers Care Tank Wagon Driver Name Role Phone Cinthya Ray MD Primary Care Provider [phone] Mayito Acuña PharmD Unavailable [phone] Encounter Details Date Type Department Care Team ([facility] st Contact Info) Description 03/05/2023 Orders Only [facility] MEDICINE [address] [place], [place] [phone] Cinthya Ray MD [address] [place], [place] [phone] Social History Tobacco Use Types Packs/Day Years [...] Telemedicine [facility] MEDICINE [address] [place] [address] Mayito Acuña PharmD [address] [place] [address] 07/30/2024 3:00 PM EDT Office Visit [facility] CH[facility] ADULT DENTAL [address] [place] [address] Demario Bocanegra documented as of this encounter Goals Goal Patient Goal Type Associated Problems Recent Progress Patient-Stated? Author Blood Pressure < 140/90 Blood Pressure 120/70(2024 5:10 PM EST) No Mayito Acuña PharmD Hemoglobin A1c < 7 Result Component 6.1( 10:46 AM EST) No Mayito Acuña PharmD documented as of this encounter Visit Diagnoses Not on filedocumented in this encounter Care Teams Tank Wagon Driver Relationship Specialty Start Date End Date Cinthya Ray MD [address] [place] [address] PCP - General Family Medicine 10/23/11 Mayito Acuña PharmD [address] [place] [address] Pharmacist Internal Medicine 03/07/23 documented as of this encounter
--- OUTSIDE RECORDS SUMMARY | 2024-04-15 08:04 | XMS_ITS | Encounter Summary ---
Author Organization [employer] [facility] Address [address] [place] [address] 7 [place] [address] Care Team Providers Care Regulatory Affairs Consultant Name Role Phone Cinthya Ray MD Primary Care Provider [phone] Mayito Acuña PharmD Unavailable [phone] Reason for Visit * Reason Onset Date Comments Nurse Triage 03/23/2024 Encounter Details Date Type Department Care Team (Late st Contact Info) Description 03/23/2024 Telephone [facility] MEDICINE [address] [place], [place] [phone] Cinthya Ray MD [address] [place] [address] Nurse Triage Social History Tobacco Use Types [...] No answer LVM to return call to [facility] triage line [phone]. Will also send portal message to return call. Reviewed [facility] operating hours . Tien Rosa routed conversation to [facility] Triage Nurse4 hours ago (12:47 PM) Sonali Rosa P [facility] Clinical Support (supporting Cinthya Ray MD)6 [...] [facility] MEDICINE [address] [place] [address] Mayito Acuña, PharmD [address] [place] [address] 07/30/2024 3:00 PM EDT Office Visit [facility] ADULT DENTAL [address] [place] [address] Demario Bocanegra documented as of this encounter [...] documented as of this encounter Care Teams Regulatory Affairs Consultant Relationship Specialty Start Date End Date Cinthya Ray MD [address] [place] [address] PCP - General Family Medicine 10/23/11 Mayito Acuña PharmD [address] [place] [address] Pharmacist Internal Medicine 03/07/23 documented as of this encounter
--- OUTSIDE RECORDS SUMMARY | 2024-04-15 08:04 | XMS_ITS | Encounter Summary ---
Author Organization [employer] Address [address] [facility] 7 [place] [address] Care Team Providers Care Diesel Retrofit Installer Name Role Phone Cinthya Ray MD Primary Care Provider Mayito Acuña PharmD Unavailable [phone] Encounter Details Date Type Department Care Team (Late st Contact Info) Description 01/31/2024 Orders Only [facility] MEDICINE [address] [place], [place] [phone] Cinthya Ray MD [address] [place], [place] [phone] Vitamin D deficiency (Primary Dx) Social History [...] Info) Description 04/23/2024 3:30 PM EDT Telemedicine [facility] MEDICINE [address] [place] [address] Mayito Acuña PharmD [address] [place] [address] 07/30/2024 3:00 PM EDT Office Visit [facility] CH[facility] ADULT DENTAL [address] [place] [address] Demario Bocanegra documented as of this encounter [...] documented as of this encounter Care Teams Diesel Retrofit Installer Relationship Specialty Start Date End Date Cinthya Ray MD [address] [place] [address] PCP - General Family Medicine 10/23/11 Mayito Acuña, DyanD [address] [place] [address] Pharmacist Internal Medicine 03/07/23 documented as of this encounter
--- OUTSIDE RECORDS SUMMARY | 2024-04-15 08:04 | XMS_ITS | Clinical Summary ---
Author Organization [employer] Address [address] [place] [address] 7 [place] [address] Care Team Providers Care Bench Lathe Operator Name Role Phone Cinthya Ray MD Primary Care Provider [phone] Mayito Acuña PharmD Unavailable [phone] Allergies No known active allergies Medications * This document contains information received from the source organization and may not represent a complete record from that organization. Blood Glucose Monitoring Suppl (RABBL [place] Lite) w/Device kit TEST BLOOD SUGAR EVERY DAY 022 Active Alcohol Swabs (Alcohol Prep) 70 % padsIndications: Type 2 diabetes mellitus with hyperglycemia ([facility]) USE FOUR TIMES DAILY AND NEEDED 100 each 11 023 Active TRUEplus Lancets 33G miscIndications: Type 2 diabetes mellitus with hyperglycemia ([facility]) TEST BLOOD SUGAR FOUR TIMES DAILY 100 each 11 024 Active fluticasone (Flonase) 50 MCG/ACT nasal sprayIndications [...] use of insulin ([facility]) INJECT 48 UNITS SUBCUTANEOUSLY ONCE EVERY DAY 45 mL 3 024 Active metroNIDAZOLE (Metrogel) 0.75 % vaginal gelIndications:B acterial Vaginosis Insert one applicator into vagina at bedtime for 7 nights 45 g 024 Active Continuous Glucose Sensor (Stick and PlayStyle Audrey 2 Sensor) miscIndications: Type 2 diabetes mellitus with hyperglycemia, without long-term current use of insulin ([facility]) Apply 1 sensor every 14 days 2 each 11 024 Active SUMAtriptan (Imitrex) 25 MG tabletIndication s:Injury of head, initial encounter TAKE 1 TAB ORALLY AFTER MIGRAINE ONSET MAY REPEAT AFTER 2HRS IF HEADACHE RETURNS,MAX 200MG IN 24HRS 9 tablet 024 Active Continuous Glucose Air Analyst (FreeStyle Audrey 2 [place]) deviceIndication s:Type 2 diabetes mellitus with hyperglycemia, without long-term current use of insulin ([facility]) SCAN sensory EVERY 8 HOURS 1 each 024 Active Glucose 2 g chewable tabletIndication s:Type 2 diabetes mellitus with hyperglycemia, with long-term current use of insulin ([facility]) Chew 2 g Once per day. To [...] hyperglycemia, with long-term current use of insulin ([facility]) INJECT ONE PEN (=7.5MG) SUBCUTANEOUSLY ONCE A [...] INSULIN ONCE A DAY 100 each Active sucralfate (Carafate) 1 GM/10ML suspension Take 10 mL (1 g) by mouth 4 times daily. 1200 mL 3 024 2024 metFORMIN XR (Glucophage-XR) 500 MG [...] for 1 dose. 1 tablet 025 2024 phenazopyridine (Pyridium) 200 MG tablet Take 1 tablet (200 mg) by mouth if needed in the morning, at noon, and at bedtime for bladder spasms (dysuria) for up to 3 days. 10 tablet 025 2024 metroNIDAZOLE (Flagyl) 500 MG tablet Take 1 tablet (500 mg) by mouth 2 times daily for 7 days. 14 tablet 025 2024 Active Problems Problem Noted [...] (09/29/2023 2:33 PM EDT): During IBH Consult Umbertodelle presenting with depressed mood, loss of interests/pleasure [...] both her parents. She had services with [facility] for psychiatry and individual therapy, but lost [...] information. Pt prefers to utilized [facility] with [facility] for same-day appointments. Pt will request psychopharmacology and individual therapy. clinician will follow-up to provide additional support. Sen's esophagus 09/09/2023 Assessment & Plan (11/30/2023 1:26 PM EDT): -Following with [facility], last seen on -06/30/23 EGD Sen esophagus with mild chronic active inflammation, stomach mild chronic inactive inflammation, normal duodenum. -Repeat EGD in 2 years -Continue pantoprazole Assessment & Plan (09/09/2023 6:00 AM EDT): -Following with [facility], last seen on -06/30/23 EGD Sen [...] considering a bariatric surgery and went to [facility]. She restarted going to [facility]. - She had worked with our diabetes education nurse, Ene Arias from Nov to Dec 2021. - Currently showing good attendance to CDTM; appreciated her effort - Eye exam: 01/24/23 [facility]. No diabetic retinopathy - Comprehensive [...] considering a bariatric surgery and went to [facility] - She had worked with our diabetes education nurse, Ene Arias from Nov to Dec 2021. - Currently showing good attendance to CDTM; appreciated her effort - Eye exam: 01/24/23 [facility]. No diabetic retinopathy - Comprehensive [...] considering a bariatric surgery and went to [facility] management clinic - She had worked with our diabetes education nurse, Ene Arias from Nov to Dec 2021. - Currently showing good attendance to CDTM; appreciated her effort - Eye exam: 01/24/23 [facility]. No diabetic retinopathy - Comprehensive [...] considering a bariatric surgery and went to [facility] management clinic - She had worked with our diabetes education nurse, Ene Arias from Nov to Dec 2021. - Currently showing good attendance to CDTM; appreciated her effort - Eye exam: 01/24/23 [facility]. No diabetic retinopathy - Comprehensive [...] considering a bariatric surgery and went to [facility] - She had worked with our diabetes education nurse, Ene Arias from Nov to Dec 2021. - Currently showing good attendance to CDTM; appreciated her effort - Eye exam: 01/24/23 [facility]. No diabetic retinopathy - Comprehensive [...] considering a bariatric surgery and went to [facility] - She had worked with our diabetes education nurse, Ene Arias from Nov to Dec 2021. - Refer to CDTM - Eye exam: 01/24/23 [facility]. No diabetic retinopathy - Comprehensive [...] considering a bariatric surgery and went to [facility] - She had worked with our diabetes education nurse, Ene Arias from Nov to Dec 2021. - Eye exam: 01/21/22 [facility]. No diabetic retinopathy - Comprehensive [...] considering a bariatric surgery and went to [facility] - She had worked with our diabetes education nurse, Ene Arias from Nov to Dec 2021. - Eye exam: 01/21/22 [facility]. No diabetic retinopathy - Comprehensive [...] considering a bariatric surgery and went to [facility] - She had worked with our diabetes education nurse, Ene Arias from Nov to Dec 2021. - Eye exam: 01/21/22 [facility]. No diabetic retinopathy - Comprehensive [...] considering a bariatric surgery and went to [facility] - She had worked with our diabetes education nurse, Ene Arias from Nov to Dec 2021. - Eye exam: 01/21/22 [facility]. No diabetic retinopathy - Comprehensive [...] considering a bariatric surgery and went to [facility] - She had worked with our diabetes education nurse, Ene Arias from Nov to Dec 2021. - Eye exam: 01/21/22 [facility]. No diabetic retinopathy - Comprehensive Foot exam: [...] considering a bariatric surgery and went to [facility] - She had worked with our diabetes education nurse, Ene Arias from Nov to Dec 2021. - Eye exam: 01/21/22 [facility]. No diabetic retinopathy - Comprehensive [...] 01/01/2022 History of sexually transmitted disease 01/02/20 Allergic rhinitis 06/15/2013 Assessment & Plan (11/30/2023 1:28 PM EDT): - continue fluticasone nasal Mixed anxiety and depressive disorder 01/06/2012 Assessment & Plan (01/27/2024 3:24 PM EST): - MDD vs. bipolar - severe exacerbation of Depression w/ SI in October 2021. - completed Partial Hospitalization Program at [facility] 11/09/21 - 11/23/21 - current medication: none -Previous medication treatment Hx: venlafaxine was self-discontinued; trazodone was prescribed by psychiatrist while she was attending [facility], but pt self-discontinued due to ineffectivenss; sertraline 50 mg daily, patient self-discontinued. - previously seeing [facility] clinician and waiting for psychiatrist, patient has not been engaged in behavioral health therapy currently. - contacted by [facility] behavioral health service and was referred to off-site service - patient has developed healthy coping skills Assessment & Plan (11/30/2023 1:22 PM EDT): - MDD vs. bipolar - severe exacerbation of Depression w/ SI in October 2021. - completed Partial Hospitalization Program at [facility] 11/09/21 - 11/23/21 - current medication: none -Previous medication treatment Hx: venlafaxine was self-discontinued; trazodone was prescribed by psychiatrist while she was attending [facility], but pt self-discontinued due to ineffectivenss; sertraline 50 mg daily, patient self-discontinued. - previously seeing [facility] clinician and waiting for psychiatrist, patient has not been engaged in behavioral health therapy currently. - contacted by [facility] and was referred to off-site service - patient has developed healthy coping skills Assessment & Plan (03/07/2023 5:55 AM EST): - MDD vs. bipolar - severe exacerbation of Depression w/ SI in October 2021. - completed Partial Hospitalization Program at [facility] 11/09/21 - 11/23/21 - current medication: none -Previous medication treatment Hx: venlafaxine was self-discontinued; trazodone was prescribed by psychiatrist while she was attending [facility], but pt self-discontinued due to ineffectivenss; sertraline 50 mg daily, patient self-discontinued. - previously seeing [facility] clinician and waiting for psychiatrist, patient has not been engaged in behavioral health therapy currently. - will consider referring back Assessment & Plan (11/12/2022 4:17 PM EDT): - severe exacerbation of Depression w/ SI in October 2021. - completed Partial Hospitalization Program at [facility] 11/09/21 - 11/23/21 - Medication: Sertraline [...] 2021. - completed Partial Hospitalization Program at [facility] 11/09/21 - 11/23/21 - Medication: Sertraline [...] 2021. - completed Partial Hospitalization Program at [facility] 11/09/21 - 11/23/21 - Medication treatment [...] 2021. - completed Partial Hospitalization Program at [facility] 11/09/21 - 11/23/21 - Medication treatment [...] 2021. - completed Partial Hospitalization Program at [facility] 11/09/21 - 11/23/21 - Medication treatment [...] 2021. - completed Partial Hospitalization Program at [facility] 11/09/21 - 11/23/21 - Medication treatment [...] - previously participated weight management program at [facility], recently started seeing them again. - goal of wieght being 171 lbs to get surgery done. - continue working on lifestyle modifications - associated comorbidity: STELLA, DM2 Assessment & Plan (11/26/2023 2:16 PM EDT): - previously participated weight management program at [facility] - continue working on lifestyle modifications - associated comorbidity: STELLA, DM2 Assessment & Plan (11/18/2022 7:07 AM EDT): - previously participated weight management program at [facility] - continue working on lifestyle modifications - associated comorbidity: STELLA, DM2 Assessment & Plan (04/04/2022 7:14 PM EST): - previously participated weight management program at [facility] - continue working on lifestyle modifications - associated comorbidity: STELLA, DM2 Assessment & Plan (02/22/2022 4:37 PM EST): - previously participated weight management program at [facility] - continue working on lifestyle modifications - [...] Encounters Date Type Department Care Team Description 04/13/2024 Telephone [facility] [address] [place] [phone] Lexis Spann MD 04/07/[address] [address] Lexis Spann MD 04/07/2024 Orders Only [facility] [address] [place] [phone] Lexis Spann MD 04/06/2024 5:00 PM EST Office Visit [facility] [address] [place] [phone] Lexis Spann MD Lower urinary tract symptoms (LUTS) (Primary Dx); Vaginal discharge 04/06/2024 Orders Only [facility] [address] [place] [phone] Lexis Spann MD 04/01/[address] [address] Rianna Solis RNdoor serviceman 03/23/[address] [address] Cinthya Ray MD Nurse Triage 03/23/2024 Refill [facility] [address] [place] [address] Cinthya Ray MD 03/12/2024 Orders Only [facility] External Provider, [facility] 03/12/2024 Refill [facility] [address] [place] [address] Cinthya Ray MD Type 2 diabetes mellitus with hyperglycemia, without long-term current use of insulin (CMS/HCC) 03/05/2024 Orders Only [facility] [address] [place] [address] Cinthya Ray MD Type 2 diabetes mellitus with other specified complication, with long-term current use of insulin (CMS/HCC) (Primary Dx) 03/04/2024 Telephone [facility] [address] [place] [address] Janey Jaramillo MA april recall 03/02/2024 10:00 AM EST Office Visit [facility] [address] [place] [address] Sonali Tellez MD Cough in adult patient 02/26/2024 2:00 PM EST Office Visit [facility] [address] [place] [address] Snoali Tellez MD Viral upper respiratory infection (Primary Dx); Influenza 02/23/2024 Orders Only [facility] External Provider, [facility] 02/20/2024 2:00 PM EST Office Visit [facility] [address] [place] [address] [facility] 02/16/2024 Refill [facility] [address] [place] [address] Mayito Acuña, Citlali Type 2 diabetes mellitus with hyperglycemia, with long-term current use of insulin (CMS/HCC) 02/13/2024 Travel 02/10/2024 Telephone [facility] [address] [place] [address] Cinthya Ray MD Referral 02/05/2024 Orders Only [address] [address] Cinthya Ray MD Chronic left shoulder pain (Primary Dx) 01/31/2024 Orders Only [address] [address] Cinthya Ray MD Vitamin D deficiency (Primary Dx) 01/30/2024 8:00 AM EST Office Visit [facility] [address] [place] [address] Demario Bocanegra Dental calculus (Primary Dx) 01/28/[address] [address] Cinthya Ray MD 01/27/2024 3:00 PM EST Office Visit [address] [address] Cinthya Ray MD Type 2 diabetes mellitus [...] Generic External Data 01/25/2024 Travel 01/22/[address] [address] Janey Jaramillo MA chart prep 01/20/2024 Travel 01/16/2024 3:30 PM EST Telemedicine [address] [address] Mayito Acuña, DyanD Type 2 diabetes mellitus with hyperglycemia, with long-term current use of insulin (CMS/HCC) (Primary Dx) from Last 3 Months Immunizations Name Administration Dates Next Due DTP 05/12/1997, 4,1992,08/16,1992 Hep A, Adult 03/14/2023,11/10/2017 Hep A, ped/adol, 2 dose 01/06/2012 Hep B, Adolescent or Pediatric 12/22/1995,1994,10/19/1993 Hib (HbOC) 05/14/1993, 3,1992,04/12 IPV 05/12/1997, 4,1992,04/12 Influenza injectable [...] 04/23/2024 3:30 PM EDT Telemedicine [facility] [address] [facility] [place] [place] [address] Mayito Acuña, PharmD [address] [facility] [place] [address] 07/30/2024 3:00 PM EDT Office Visit [facility] [address] [place] [facility] [place] [address] Demario Bocanegra Health Maintenance Due Date Last [...] Pap Smear 07/24/2024 07/24/2021 Diabetes: Hemoglobin A1C 07/26/202401/25/2 024, 11/26/2023, 09/10/2023, Additional history exists Dental Prophylaxis 07/31/2024 01/30/2024, 0 06/04/2023, 08/08/2022 Depression Screening 09/28/2024 09/29/2023, 09/29/19 Diabetes: Foot Exam 11/25/2024 11/26/2023, 11/26/2023, 11/26/2023, Additional history exists Diabetes: Urine Protein Screening 11/25/2024 11/26/2023, 09/12/2023, 08/29/2022, Additional history exists Lipid Panel 11/25/2024 11/26/2023, 08/0 03/2023, 06/11/2023, Additional history exists Eye Exam 01/24/2025 [...] Routine 04/06/2024 5:04 PM EST Vaginal discharge CULTURE, URINE, ROUTINE Routine 04/06/2024 12:00 AM EST Lower urinary tract symptoms (LUTS) MR SHOULDER WO CONTRAST LEFT Routine 03/12/2024 [...] hyperglycemia, with long-term current use of insulin ([facility]) BITEWING - SINGLE RADIOGRAPHIC IMAGE Routine 06/04/2023 2:00 PM EDT HM DIABETES EYE EXAM Routine 01/24/2023 INTRAORAL - [...] DETECTION BY PCR NOT DETECTED Not Detect [facility] BACTERIAL VAGINOSIS DETECTION BY PCR POSITIVE(A) Negative [facility] Comment:The BV organism targ ets [...] DETECTION BY PCR NOT DETECTED Not Detect [facility] Deyanira glab krusei PCR NOT DETECTED Not Detect [facility] 04/06/2024 5:04 PM EST 04/07/2024 11:23 AM EST us Lexis Spann MD LAB MICROBIOLOGY - GENER AL ORDERABLES Final Result [facility] [address] [place] [address] [phone] * Chlamydia/N. Gonorrhoeae RNA, TMA, Urogenitial (04/06/2024 5:04 PM EST) CT PCR NOT DETECTED Not Detect. [facility] Comment:A not detected test result [...] psychologicalconsequences. NG PCR NOT DETECTED Not Detect. [facility] Comment:A not detected test result [...] 5:04 PM EST 04/07/2024 11:15 AM EST [facility] - 04/07/2024 1:26 PM EST Vaginal us Lexis Spann MD LAB MICROBIOLOGY - GENER AL ORDERABLES Final Result Performing Organization Address [facility] Co de Phone Number [address] [address] [phone] * Culture, Urine, Routine (04/06/2024 12:00 AM EST) Urine Urine specimen obtained by clean catch procedure / Unknown 04/06/2024 04/06/2024 Comment:[facility] - 04/10/2024 7:29 AM EST Escherichia coli Quant 10,000 to 50,000 cfu/mL Escherichia coli: Ampicillin 4(S) Escherichia coli: Cefazolin (Urine) <=1(S) Escherichia coli: Cefepime <=0.12(S) Escherichia coli: Ceftriaxone <=0.25(S) Escherichia coli: Ciprofloxacin <=0.06(S) Escherichia coli: Gentamicin <=1(S) Escherichia coli: Nitrofurantoin <=16(S) Escherichia coli: Trimethoprim/Sulfamethoxazole <=20(S) Specimen Source: Urine clean catch Lexis Spann MD LAB MICROBIOLOGY - GENER AL ORDERABLES Final Result Performing Organization Address [facility] Co de Phone Number [facility] [address] [place] [phone] * MR Shoulder w/o Contrast Left (03/12/2024 7:15 PM EST) Anatomical Region Laterality Modality Upper Extremities, Shoulder Left Magn etic Resonance 03/12/2024 7:15 PM EST Narrative 03/15/2024 10:07 AM EST ? [facility] ?[address] ?[place] [address] ? Magnetic Resonance Report ? Signed ? Patient: Sonali Gill ?MR#: ?? [id number] ? : 1990 ?Acct:[id number] ? Age/Sex: 34 / F ?ADM Date: 03/12/24 ? Loc: HO.MRI ? Attending Dr: Al Hays MD ? Ordering Physician: lA Hays MD ?? Date of Service: 03/12/24 ?? Procedure(s): MR shoulder LT wo con ?? Accession Number(s): [id number] ? cc: Al Hays MD; Cinthya Ray [...] MD in OV> ?03/15/24 1004 ? DD/ 14 ? TD/TT: 03/12/241939 ? Sharepoint Designer Developer: ? Procedure Note Donotuseinterpreter, Image - 03/15/[address] [address] Magnetic Resonance Report Signed Patient: Jeremy Gill#: [id number] : 1990Acct:[id number] Age/Sex: 34 / FADM Date: 03/12/24 Loc: HO.MRI Attending Dr: Al Hays MD Ordering Physician: Al Hays MD Date of Service: 03/12/24 Procedure(s): MR shoulder LT wo con Accession Number(s): [id number] cc: Al Hays MD; Cinthya Ray MD [...] OV> 03/15/24 1004 DD/ 14 TD/TT: 03/12/241939 Sharepoint Designer Developer: [facility] External Provider IMG MRI PROCEDURES Final Result * POCT Rapid Influenza B SEBASTIAN ID NOW (03/02/2024 10:18 AM EST) Only the most recent of2 resultswithin the time period is included. [facility] Influenza B Negative Negative, Indeterminate [facility] Swab 03/02/2024 10:1 8 AM EST Sonali Tellez MD POINT OF CARE TEST ENTER/E DIT ORDERABLES Final Result Performing Organization Address [facility]/ZIP Co de Phone Number [facility] [address] [place] [phone] * POCT Rapid Influenza A SEBASTIAN ID NOW (03/02/2024 10:18 AM EST) Only the most recent of2 resultswithin the time period is included. [facility] Influenza A Negative Negative, Indeterminate [facility] Swab 03/02/2024 10:[address] [facility] Sonali Tellez MD POINT OF CARE TEST ENTER/E DIT ORDERABLES Final Result Performing Organization Address [facility] Co de Phone Number [facility] [address] [place] [phone] * POCT Rapid Covid-19 BinaxNOW (03/02/2024 10:18 AM EST) Only the most recent of2 resultswithin the time period is included. [facility] Rapid COVID Ag Negative Swab 03/02/2024 10:1 [...] ID NOW (02/26/2024 2:42 PM EST) Pathologist [facility] Rapid Strep A Screen Negative Negative, None Detected Swab 02/26/2024 2:42 PM EST us Sonali Tellez MD POINT OF CARE TEST ENTER/E DIT ORDERABLES Final Result * US Abdomen Comp w elastography (02/23/2024 8:41 AM EST) Anatomical Region Laterality Modality Abdomen Ultrasound 02/23/2024 8:41 AM EST Narrative 02/24/2024 10:28 AM EST ? [facility] ?[address] ?[place] [address] ? Ultrasound Report ? Signed ? Patient: Sonali Gill ?MR#: ?? [id number] ? : 1990 ?Acct:[id number] ? Age/Sex: 33 / F ?ADM Date: 02/23/24 ? Loc: HO.US ? Attending Dr: Nate Mijares MD ? Ordering Physician: Nate Mijares MD ?? Date of Service: 02/23/24 ?? Procedure(s): US abdomen comp w elastography ?? Accession Number(s): [id number] ? cc: Nate Mijares MD; Cinthya Ray [...] DD/ 0841 ? TD/TT: 02/23/24 0854 ? Sharepoint Designer Developer: ? Procedure Note Alfie Walden - 02/24/[address] [address] Ultrasound Report Signed Patient: Jeremy Gill#: [id number] : 1990Acct:[id number] Age/Sex: 33 / FADM Date: 02/23/24 Loc: HO.US Attending Dr: Nate Mijares MD Ordering Physician: Nate Mijares MD Date of Service: 02/23/24 Procedure(s): US abdomen comp w elastography Accession Number(s): [id number] cc: Nate Mijares MD; Cinthya Ray MD [...] 02/24/24 1025 DD/ 0841 TD/TT: 02/23/24 0854 Sharepoint Designer Developer: us [facility] External Provider IMG US PROCEDURES Final Result * XR Shoulder 2+ Views Left (01/27/2024 3:56 PM EST) Anatomical Region Laterality Modality Upper Extremities, Shoulder Left Radi ographic Imaging 01/27/2024 3:56 PM EST Narrative 01/28/2024 10:15 AM EST ?[facility] ?[address] ?[place], [place] [address] ?XRay Report ? Signed ? Patient: Sonali Gill ?MR#: ?? [id number] ? : 1990 ?Acct:[id number] ? Age/Sex: 33 / F ?ADM Date: 01/27/24 ? Loc: HO.HHCX ? Attending Dr: Cinthya Ray MD ? Ordering Physician: Cinthya Ray MD ?? Date of Service: 01/27/24 ?? Procedure(s): XR shoulder LT min 2V ?? Accession Number(s): [id number] ? cc: Cinthya Ray MD ? EXAMINATION: [...] DD/ 1556 ? TD/TT: 01/27/24 1600 ? Sharepoint Designer Developer: ? Procedure Note Alfie Walden - 01/28/2024 [facility] [address] [place] [address] XRay Report Signed Patient: Jeremy Gill#: [id number] : 1990Acct:[id number] Age/Sex: 33 / FADM Date: 01/27/24 Loc: HO.HHCX Attending Dr: Cinthya Ray MD Ordering Physician: Cinthya Ray MD Date of Service: 01/27/24 Procedure(s): XR shoulder LT min 2V Accession Number(s): [id number] cc: Cinthya Ray MD EXAMINATION: XR SHOULDER, [...] 01/28/24 1012 DD/ 1556 TD/TT: 01/27/24 1600 Sharepoint Designer Developer: Cinthya Ray MD IMG XR PROCEDURES Edited Result - Final * XR Chest 2 Views (01/26/2024 10:47 AM EST) Anatomical Region Laterality Modality Chest Radiographic Viky ging 01/26/2024 10:4 7 AM EST Narrative 03/10/2024 4:39 PM EST ? [facility] ?[address] ?[place] [address] ?XRay Report ? Signed ? Patient: Sonali Gill ?MR#: ?? [id number] ? : 1990 ?Acct:[id number] ? Age/Sex: 33 / F ?ADM Date: 12/16/24 ? Loc: HO.XRAY ? Attending Dr: Nate Mijares MD ? Ordering Physician: Nate Mijares MD ?? Date of Service: 01/26/24 ?? Procedure(s): XR chest 2V ?? Accession Number(s): [id number] ? cc: Nate Mijares MD; Cinthya Ray [...] DD/ 1047 ? TD/TT: 01/26/24 1055 ? Sharepoint Designer Developer: ? Procedure Note Win, Image - 03/10/2024 [place] [address] XRay Report Signed Patient: Jeremy Gill#: [id number] : 1990Acct:[id number] Age/Sex: 33 / FADM Date: 01/26/24 Loc: [facility] Attending Dr: Nate Mijares MD Ordering Physician: Nate Mijares MD Date of Service: 01/26/24 Procedure(s): XR chest 2V Accession Number(s): [id number] cc: Nate Mijares MD; Cinthya Ray MD [...] 03/10/24 1636 DD/ 1047 TD/TT: 01/26/24 1055 Sharepoint Designer Developer: [facility] External Provider IMG XR PROCEDURES Edited Result - Final * (ABNORMAL) Vitamin D, 25-Hydroxy, Total, Immunoassay (01/26/2024 10:46 AM EST) Vitamin D 25-OH Total 15.9(L) >30 ng/mL [facility] Comment:Health Based Referen ce Values*< 20 ng/mL Olnsuvnpd74-05 ng/mL Insufficient> 30 ng/mL Sufficient*Jaylon BLUNT. N [...] Provider LAB BLOOD ORDERAB LES Final Result [facility] [address] [place] [address] [phone] * Vitamin B12 (Cobalamin) and Folate Panel, Serum (01/26/2024 10:46 AM EST) Vitamin B12 537 200 - 900 pg/mL [facility] Comment:NORMAL 200-900 PG/ML INDETERMINATE 160-199 PG/ML DEFICIENT < 160 PG/ML Folate 7.4 > or = 4.0 ng/mL [facility] Comment:Reference Values:> o r = 4.0 ng/mL< 4.0 ng/mL suggests folate deficiency Methotrexate, aminopterin and folinic acid(leucovorin) are chemotherapeutic agents whose molecularstructures are similar to folate; therefore, the Architectfolate assay cannot be used for patients using these drugs. 01/26/2024 10:4 6 AM EST 01/26/2024 10:46 AM EST us Generic External Data Provider LAB BLOOD ORDERAB LES Final Result [facility] [address] [place] [address] [phone] * (ABNORMAL) CBC auto differential (01/26/2024 10:46 AM EST) [facility] White Blood Count 9.1 4.8 - 10.8 X10*3/uL [facility] Red Blood Count 4.78 4.20 - 5.50 X10*6/uL [facility] Hemoglobin 12.0 12.0 - 16.0 g/dl [facility] Hematocrit 37.7 37.0 - 47.0 % [facility] Mean Corpuscular Volume 78.9(L) 80.0 - 98.0 fL [facility] Mean Corpuscular Hemoglobin 25.1(L) 27.0 - 33.0 pg [facility] Mean Corpuscular HGB Conc 31.8 31.0 - 35.0 g/dl [facility] Red Cell Distribution Width 13.4 11.0 - 16.0 % [facility] Platelet Count 326 160 - 400 X10*3/uL [facility] Mean Platelet Volume 9.3(L) 9.4 - 12.3 fL [facility] Neutrophils Percent Auto 63.6 45 - 73 % [facility] Imm Gran Pct Auto 0.2 0.0 - 0.4 % [facility] Lymphocytes Percent Auto 29.9 20 - 40 % [facility] Monocytes Percent Auto 4.9 2 - 11 % [facility] Eosinophils Percent Auto 1.0 0 - 4 % [facility] Basophils Percent Auto 0.4 0 - 2 % [facility] NRBC Pct Auto 0.0 0.0 - 0.2 /100WBC [facility] Neutrophils Absolute Auto 5.8 2.0 - 8.3 x10*3/uL [facility] Imm Gran Abs Auto 0.02 0.00 - 0.03 X10*3/uL [facility] Lymphocytes Absolute Auto 2.7 1.2 - 4.9 X10*3/uL [facility] Monocytes Absolute Auto 0.4 0.1 - 1.2 X10*3/uL [facility] Eosinophils Absolute Auto 0.1 0.0 - 0.4 X10*3/uL [facility] Basophils Absolute Auto 0.0 0.0 - 0.2 X10*3/uL [facility] NRBC Abs Auto 0.000 0.0 - 0.012 X10*3/uL [facility] 01/26/2024 10:4 6 AM EST 01/26/2024 10:46 AM EST us Generic External Data Provider LAB BLOOD ORDERAB LES Final Result [facility] [address] [place] [address] [phone] * (ABNORMAL) Insulin (01/26/2024 10:46 AM EST) Insulin 186(H) 2 - 29 uU/mL [facility] Comment:This test was perfor med using the NowSpots chemiluminescentmethod. Values obtained from different assay methods [...] Final Result Performing Organization Address [facility] Co de Phone Number [facility] [address] [place] [address] [phone] * (ABNORMAL) Zinc (01/26/2024 10:46 AM EST) Zinc 54(A) 60 - 130 mcg/dL [facility] Comment:This test was develo ped and its analytical performancecharacteristics have been determined by [facility] [place], [place]. It hasnot been cleared or approved by the U.S. Food and DrugAdministration. This assay has been validated pursuantto the CLIA regulations and is used for clinicalpurposes.THIS TEST WAS PERFORMED AT:[employer]/[id number] [place] [address]PDUMGDENIKKY MANNING MD,PHD 01/26/2024 10:4 6 AM EST 01/26/2024 10:46 AM EST Generic External Data Provider LAB BLOOD ORDERAB LES Final Result Performing Organization Address [facility] Co de Phone Number [facility] [address] [place] [phone] * Vitamin A (01/26/2024 10:46 AM EST) Vitamin A (Retinol) 41 38 - 98 mcg/dL [facility] Comment:Vitamin supplementat ion within 24 hours prior toblood draw may affect the accuracy of the results.This test was developed and its analytical performancecharacteristics have been determined by [facility] [place], [place]. It hasnot been cleared or approved by the U.S. Food and DrugAdministration. This assay has been validated pursuantto the CLIA regulations and is used for clinicalpurposes.THIS TEST WAS PERFORMED AT:[employer] [id number] [place] [address]EEGANHNNIKKY MANNING MD,PHD 01/26/2024 10:4 6 AM EST 01/26/2024 10:46 AM EST Generic External Data Provider LAB BLOOD ORDERAB LES Final Result Performing Organization Address City/[facility]/ZIP Co de Phone Number [facility] [address] [place] [address] [phone] * (ABNORMAL) Vitamin B1 (01/26/2024 10:46 AM EST) Pathologist [facility] Vitamin B1 <6(A) 8 - 30 nmol/L [facility] Comment:Vitamin supplementat ion within 24 hours prior toblood draw may affect the accuracy of the results.This test was developed and its analytical performancecharacteristics have been determined by [employer] [place]. It hasnot been cleared or approved by the U.S. Food and DrugAdministration. This assay has been validated pursuantto the CLIA regulations and is used for clinicalpurposes.THIS TEST WAS PERFORMED AT:[employer]/[id number] [place] [address]KYNIAHQNIKKY MANNING MD,PHD 01/26/2024 10:4 6 AM EST 01/26/2024 10:46 AM EST Generic External Data Provider LAB BLOOD ORDERAB LES Final Result Performing Organization Address [facility] Co de Phone Number [facility] [address] [place] [address] [phone] * (ABNORMAL) Hemoglobin A1c (01/26/2024 10:46 AM EST) Hemoglobin A1c 6.1(H) <6.0 % [facility] Comment:Hemoglobin A1C Refer ence Range Adults: 4.8 - 6.0 % Non diabetic: < 6.0 % Goal: < 7.0 %Additional Action Suggested: > 8.0 %Note: Hemoglobin A1c results are invalid for patients with abnormal amounts of HbF. Blood transfusions may impact the HbA1c concentration in the patient sample. Estimated Average Glucose 128 mg/dL [facility] Comment:eAG = Estimated ave rage glucose which is %A1C expressed asaverage glucose, using the formula of the Q8Z-JdoykaxRsfoqft Glucose study (ADAG), Diabetes Care, Vol.31,#8,Sep. 2007 01/26/2024 10:4 6 AM EST 01/26/2024 10:46 AM EST Generic External Data Provider LAB BLOOD ORDERAB LES Final Result Performing Organization Address [facility] Co de Phone Number [facility] [address] [place] [address] [phone] * Ferritin (01/26/2024 10:46 AM EST) Ferritin 15 10 - 122 ng/mL [facility] 01/26/2024 10:4 6 AM EST 01/26/2024 10:46 AM EST [employer] External Data Provider LAB BLOOD ORDERAB LES Final Result Performing Organization Address [facility] Co de Phone Number [facility] [address] [place] [address] [phone] * (ABNORMAL) Lipid Panel with Reflex to Direct LDL (11/26/2023 11:30 AM EDT) Triglycerides 145 <150 mg/dL [facility] Comment:Desirable Triglyceri de: less than 150 mg/dLBorderline High Triglyceride 150-199 mg/dLHigh Triglyceride: 200-499 mg/dLVery High Triglyceride: greater than or equal to 5OO mg/dL Cholesterol 152 <200 mg/dL [facility] Comment:Desirable Cholestero l: less than 200 mg/dLBorderline High Cholesterol: 200-239 mg/dLHigh Cholesterol: greater than 239 mg/dL LDL Cholesterol Calculated 91 <100 mg/dL [facility] Comment:Desirable LDL: less than 100 mg/dLNear Optimal/Above Optimal LDL: 110- 129 mg/dLBorderline High LDL: 130-159 mg/dLHigh LDL: 160-189 mg/dLVery High LDL: greater than or equal to 190 mg/dL HDL Cholesterol 32(L) >40 mg/dL [facility] Comment:Desirable HDL: great er than 40 mg/dL Note: This HDL assay may give artificially low results in patients with liver disease. Blood 11/26/2023 11:3 0 AM EDT 11/26/2023 1:20 PM EDT Cinthya Ray MD LAB BLOOD ORDERABLES Final Resul t Performing Organization Address City/[facility] Co de Phone Number [facility] [address] [place] [address] [phone] * Hepatitis C Antibody with Reflex to HCV, RNA, Quantitative, Real-Time PCR (11/26/2023 11:30 AM EDT) Hepatitis C Antibody Nonreactive Nonreactive [facility] Comment:Antibodies to HCV no t detected; does not exclude early acuteHCV infection. Blood Venous blood specimen / Unknown 11/26/2023 11:30 AM EDT 11/26/2023 1:20 PM EDT Cinthya Ray MD LAB BLOOD ORDERABLES Final Resul t Performing Organization Address [facility]/ZIP Co de Phone Number [facility] [address] [place] [address] [phone] * HIV-1/2 Antigen and Antibodies, Fourth Generation, with Reflexes (11/26/2023 11:30 AM EDT) HIV AB/AG Nonreactive Nonreactive [facility] Comment:HIV-1 p24 Ag and/or HIV-1/HIV-2 Ab not detected.A test result that is nonreactive does not exclude thepossibility of exposure to or infection with HIV-1 and/orHIV-2. Nonreactive results in this assay for individualswith prior exposure to HIV-1 and/or HIV-2 may be due toantigen and antibody levels that are below the limit ofdetection of this assay.The Peer.im[employer]ity HIV Ag/Ab Combo assay result andsupplemental assay results should be interpreted inconjunction with the patient's clinical presentation,history and other laboratory results. If the results areinconsistent with clinical evidence, additional testing issuggested to confirm the result. Blood Venous blood specimen / Unknown 11/26/2023 11:30 AM EDT 11/26/2023 1:20 PM EDT Cinthya Ray MD LAB BLOOD ORDERABLES Final Resul t Performing Organization Address [facility] Co de Phone Number [facility] [address] [place] [address] [phone] * Albumin, Random Urine W/Creatinine (11/26/2023 12:00 AM EDT) Creatinine, Urine 238.24 mg/dL [facility] Microalbumin Urine 23.0 mg/L [facility] Microalbum Creatinine Ratio Ur 9.6 <30 ug/mg cr [facility] Comment:Albumin/Creatinine R atio Reference Ranges: Normal: < 30 ug/mg creatinine Microalbuminuria: 30 - 300 ug/mg creatinineClinical Albuminuria: > 300 ug/mg creatinine Urine 11/26/2023 11/26/2023 Cinthya Ray MD LAB URINE ORDERABLES Final Resul t Performing Organization Address [facility] Co de Phone Number [facility] [address] [place] [address] [phone] * Diabetes Eye Exam (01/24/2023) Eye Exam Normal Normal Comment:[facility] 01/24/2023 Historical Provider HEALTH MAINTENANCE Final [...] has been evaluated with computer assisted technology. [facility] Manager Investigations : SEE COMMENT [facility] Comment: MXD, CT (ASCP) CT screening location: [address] ??[phone] Interpretation/R esult: Negative for intraepithelial lesion or malignancy. [facility] LMP: NONE GIVEN [facility] Prev. BX: NONE GIVEN [facility] Prev. PAP: NONE GIVEN [facility] SOURCE: None given [facility] Statement Of Adequacy: SEE COMMENT [facility] Comment: Satisfactory for evaluation. Endocervical/transformation zone component present. Age and/or menstrual status not provided 07/24/2021 4:01 PM EDT Cinthya Ray MD LAB PATHOLOGY ORDERABLES Final R esult [facility] [address] from Last 3 Months or Most Recently Relevant to Health Maintenance [facility] MEDICAID STAND ADULT Care Teams Bench Lathe Operator Relationship Specialty Start Date End Date Cinthya Ray MD [address] [place] [phone] PCP - General Family Medicine 10/23/11 Mayito Acuña, PharmD [address] [place] [phone] Pharmacist Internal Medicine 03/07/23
--- OUTSIDE RECORDS SUMMARY | 2024-04-15 08:04 | XMS_ITS | Encounter Summary ---
Author Organization [facility] Address [address] [place] [address] 7 [place] [address] Care Team Providers Care Ios Programmer Name Role Phone Cinthya Ray MD Primary Care Provider [phone] Mayito Acuña PharmD Unavailable [phone] Reason for Visit * Reason Onset Date Comments triage 04/10/2022 Encounter Details Date Type Department Care Team (Late st Contact Info) Description 04/10/2022 Telephone [facility] [address] [place], [place] [phone] Cinthya Ray MD [address] [place], [place] [phone] triage Social History Tobacco Use Types Packs/Day [...] EDT Telemedicine [facility] [address] [place] [address] Mayito Acuña, PharmD [address] [place] [address] 07/30/2024 3:00 PM EDT Office Visit [facility] [address] [place] [address] Demario Bocanegra documented as of this encounter Visit Diagnoses Not on filedocumented in this encounter Care Teams Ios Programmer Relationship Specialty Start Date End Date Cinthya Ray MD [address] [place] [address] PCP - General Family Medicine 10/23/11 Mayito Acuña, Citlali [address] [place] [address] [phone] Pharmacist Internal Medicine 03/07/23 documented as of this encounter
--- OUTSIDE RECORDS SUMMARY | 2024-04-15 08:04 | XMS_ITS | Encounter Summary ---
Author Organization [email or web address] [facility] Address [address] [place] [address] 7 [place] [address] Care Team Providers Care Delivery Truck Driver Heavy Name Role Phone Cinthya Ray MD Primary Care Provider [phone] Mayito Acuña PharmD Unavailable [phone] Encounter Details Date Type Department Care Team (Late Contact Info) Description 02/26/2022 Abstract [facility] [address] [place] [address] [phone] Cinthya Ray MD [address] [place] [phone] Social History Tobacco Use Types Packs/Day Years [...] 04/23/2024 3:30 PM EDT Telemedicine [facility] [address] [place] [address] [phone] Mayito Acuña, PharmD [address] [place], [place] [phone] 07/30/2024 3:00 PM EDT Office Visit [facility] [address] [place] [address] Demario Bocanegra documented as of this encounter Visit Diagnoses Not on filedocumented in this encounter Care Teams Delivery Truck Driver Heavy Relationship Specialty Start Date End Date Cinthya Ray MD [address] [place] [phone] PCP - General Family Medicine 10/23/11 Mayito Acuña, DyanD [address] [place] [address] [phone] Pharmacist Internal Medicine 03/07/23 documented as of this encounter
--- OUTSIDE RECORDS SUMMARY | 2024-04-15 08:04 | XMS_ITS | Encounter Summary ---
Author Organization [employer] Address [address] [facility] 7t [place] [address] Care Team Providers Care Family Practice Physician Name Role Phone Cinthya Ray MD Primary Care Provider [phone] Mayito Acuña PharmD Unavailable [phone] Encounter Details Date Type Department Care Team (Late st Contact Info) Description 04/06/2024 5:00 PM EST Office Visit [facility] [address] [place], [place] [phone] Lexis Spann MD [address] [place], [place] [phone] Lower urinary tract symptoms (LUTS) (Primary Dx); [...] the past 12 months, has t he [employer], gas, oil or water [email or web address] threatened to shut off services in your [...] 100 each 11 Blood Glucose Monitoring Suppl ([employer] [place] Lite) w/Device kit TEST BLOOD SUGAR EVERY DAY Blood Pressure Monitor kit Check blood pressure once daily and as needed 1 kit 0 cholecalciferol (Vitamin D-3) 25 MCG (1000 UT) tablet Take 1 tablet (25 mcg) by mouth Once per day.90 tablet 3 Continuous Glucose Chief Diversity Officer ([employer] Audrey 2 [place]) device SCAN sensory EVERY 8 HOURS 1 [...] vaginal candidiasis and follow-up vaginal swab. * Result Encounter Note - Lexis Spann MD - 04/06/2024 5:00 PM EST Urine culture on 04/10/2024 showed nonsignificant bacteriuria show growing mostly E. coli. She was previously treated for BV and last symptoms were more consistent with it. Please call patient and ask how is she doing after BV treatment (see BV lab before), if she has any residual symptoms, she may need to be treated antibiotics otherwise there is no need to treat asymptomatic bacteriuria in this patient with no significant risk factors. * Addendum Note - Jose Brian MA - 04/06/2024 5:00 PM ESTAddended by: JOSE BRIAN on: 04/06/2024 05:15 PM Modules accepted: Orders documented in this encounter Plan of Treatment Upcoming Encounters Date Type Department Care Team (Late st Contact Info) Description 04/23/2024 3:30 PM EDT Telemedicine [facility] [address] [place] [address] Mayito Acuña PharmD [address] [place] [address] 07/30/2024 3:00 PM EDT Office Visit [facility] [address] [place] [address] Demario Bocanegra Scheduled Orders Name Type Priority Associated Diagnoses Orde r Schedule Bacterial Vaginosis Microbiology Routine Vaginal discharge Expected: 04/06/2024 (Approximate), Expires: 04/06/2025 documented as [...] AM EST Lower urinary tract symptoms (LUTS) documented in this encounter Results * POCT [...] EST) CT PCR NOT DETECTED Not Detect. [facility] Comment:A not detected test result [...] psychologicalconsequences. NG PCR NOT DETECTED Not Detect. [facility] Comment:A not detected test result [...] PM EST 04/07/2024 11:15 AM EST Narrative [facility] - 04/07/2024 1:26 PM EST Vaginal Lexis Spann MD LAB MICROBIOLOGY - GENER AL ORDERABLES Final Result Performing Organization Address [facility]/ZIP Co de Phone Number [facility] [address] [place] [address] [phone] * Culture, Urine, Routine (04/06/2024 12:00 AM EST) Urine Urine specimen obtained by clean catch procedure / Unknown 04/06/2024 04/06/2024 Comment:CC Narrative [facility] - 04/10/2024 7:29 AM EST Escherichia [...] AL ORDERABLES Final Result Performing Organization Address [facility] Co de Phone Number [facility] [address] [place] [address] [phone] documented in this encounter Visit Diagnoses Diagnosis Lower urinary tract symptoms (LUTS)- Primary Vaginal discharge Leukorrhea, not specified as infective documented in this encounter Additional Health Concerns Assessment Noted Time PHQ-9 Depression Total Score: 11 024 9:48 AM EDT documented as of this encounter Care Teams Family Practice Physician Relationship Specialty Start Date End Date Cinthya Ray MD [address] [place] [address] PCP - General Family Medicine 10/23/11 Mayito Acuña, Citlali [address] [place] [address] Pharmacist Internal Medicine 03/07/23 documented as of this encounter
--- OUTSIDE RECORDS SUMMARY | 2024-04-15 08:04 | XMS_ITS | Encounter Summary ---
Author Organization [facility] Address [address] [place] [address] [facility] [place] [address] Care Team Providers Care Automatic Profile Shaper Operator Name Role Phone Cinthya Ray MD Primary Care Provider [phone] Mayito Acuña PharmD Unavailable [phone] Reason for Referral * Consultation (Routine) - Closed Specialty Diagnoses / Procedures Referred By Contcarly t Referred To Contact Orthopaedic Surgery Diagnoses Chronic left shoulder pain Cinthya Ray MD [address] [place] [address] Phone: tel: fax: [facility] [address] [place] [address] Phone: tel: Referral ID Status Reason Start Date Expiration Date V isits Requested Visits Authorized [id number] Closed Specialty Services Required 02/05/2024 02/04/2025 6 6 Encounter Details Date Type Department Care Team (Late st Contact Info) Description 02/05/2024 Orders Only [facility] MEDICINE [address] [place] [address] Cinthya Ray MD [address] [place], [place] [phone] Chronic left shoulder pain (Primary Dx) Social [...] PM EDT Telemedicine [facility] 230 [place] [address] Mayito Acuña, PharmD [address] [place] [address] 07/30/2024 3:00 PM EDT Office Visit [facility] ADULT DENTAL [address] [place] [address] Demario Bocanegra Scheduled Referrals Name Type Priority [...] documented as of this encounter Care Teams Automatic Profile Shaper Operator Relationship Specialty Start Date End Date Cinthya Ray MD [address] [place] [address] PCP - General Family Medicine 10/23/11 Mayito Acuña PharmD [address] [place] [address] Pharmacist Internal Medicine 03/07/23 documented as of this encounter
--- OUTSIDE RECORDS SUMMARY | 2024-04-15 08:04 | XMS_ITS | Encounter Summary ---
Author Organization [employer] Address [address] [place] [address] 7 [place] [address] Care Team Providers Care Multimedia Developer Name Role Phone Cinthya Ray MD Primary Care Provider [phone] Mayiot Acuña PharmD Unavailable Reason for Visit * Reason Onset Date Comments callback request 12/30/2023 Encounter Details Date Type Department Care Team ([facility] st Contact Info) Description 12/30/2023 Telephone [facility] MEDICINE [address] [place], [place] [phone] Cinthya Ray MD [address] [place] [address] callback request Social History Tobacco Use Types [...] the past 12 months, has t he [employer], gas, oil or water [employer] threatened to shut off services in your [...] EST Tc from pt returning call from [facility] to book an appointment for follow up Callback [phone] documented in this encounter Plan of Treatment Upcoming Encounters Date Type Department Care Team (Late st Contact Info) Description 04/23/2024 3:30 PM EDT Telemedicine [facility] MEDICINE [address] [place] [address] Mayito Acuña PharmD [address] [place] [address] 07/30/2024 3:00 PM EDT Office Visit [facility] CHC ADULT DENTAL [address] [place] [address] Demario Bocanegra documented as of this encounter [...] documented as of this encounter Care Teams Multimedia Developer Relationship Specialty Start Date End Date Cinthya Ray MD [address] [place] [address] PCP - General Family Medicine 10/23/11 Mayito Acuña PharmD [address] [place] [address] Pharmacist Internal Medicine 03/07/23 documented as of this encounter
--- OUTSIDE RECORDS SUMMARY | 2024-04-15 08:04 | XMS_ITS | Encounter Summary ---
Author Organization [facility] Address [address] [place] [address] 7 [place] [address] Care Team Providers Care Mixed Crop And Livestock Farmer Name Role Phone Cinthya Ray MD Primary Care Provider [phone] Mayito Acuña PharmD Unavailable [phone] Reason for Visit * Reason Onset Date Comments Medication Question 06/14/2022 Encounter Details Date Type Department Care Team ([facility] st Contact Info) Description 06/14/2022 Telephone [facility] MED[facility]INE [address] [place], [place] [phone] Cinthya Ray MD 230 [place], [place] [phone] Medication Question Social History Tobacco Use Types [...] Telemedicine [facility] MED[facility]INE [address] [place] [address] Mayito Acuña, PharmD [address] [place] [address] 07/30/2024 3:00 PM EDT Office Visit [facility] CHC ADULT DENTAL [address] [place] [address] Demario Bocanegra documented as of this encounter Visit Diagnoses Not on filedocumented in this encounter Care Teams Mixed Crop And Livestock Farmer Relationship Specialty Start Date End Date Cinthya Ray MD [address] [place] [address] PCP - General Family Medicine 10/23/11 Mayito Acuña, PharmD [address] [place] [address] Pharmacist Internal Medicine 03/07/23 documented as of this encounter
--- OUTSIDE RECORDS SUMMARY | 2024-04-15 08:04 | XMS_ITS | Encounter Summary ---
Author Organization [employer] Address [address] [place] [address] 7 [place] [address] Care Team Providers Care Grocery Store Courtesy Clerk Name Role Phone Cinthya Ray MD Primary Care Provider [phone] Mayito Acuña PharmD Unavailable [phone] Reason for Visit * Reason Onset Date Comments Prior Authorization 04/01/2024 Encounter Details Date Type Department Care Team (Late st Contact Info) Description 04/01/2024 Telephone [facility] MED[facility]INE 230 [place], [place] [phone] Rianna Solis RN [address] [place] [address] Prior Authorization Social History Tobacco Use Types [...] PM EST [facility] * Telephone Encounter - Rianna Solis RN - 04/01/2024 2:27 PM EST Received request from Audrey MILTON from pharmacy. PA packet generated and placed on PCP's desk. Pending signature. documented in this encounter Plan of Treatment Upcoming Encounters Date Type Department Care Team (Late st Contact Info) Description 04/23/2024 3:30 PM EDT Telemedicine [facility] MEDICINE [address] [place] [address] Mayito Acuña, PharmD [address] [place] [address] 07/30/2024 3:00 PM EDT Office Visit [facility] CHC ADULT DENTAL [address] [place] [address] Demario Bocanegra documented as of this encounter [...] documented as of this encounter Care Teams Grocery Store Courtesy Clerk Relationship Specialty Start Date End Date Cinthya Ray MD [address] [place] [address] PCP - General Family Medicine 10/23/11 Mayito Acuña PharmD [address] [place] [address] Pharmacist Internal Medicine 03/07/23 documented as of this encounter
--- OUTSIDE RECORDS SUMMARY | 2024-04-15 08:04 | XMS_ITS | Encounter Summary ---
Author Organization [facility] Address [address] [place] [address] 7 [place] [address] Care Team Providers Care Balance Sheet Analyst Name Role Phone Cinthya Ray MD Primary Care Provider [phone] Mayito Acuña PharmD Unavailable [phone] Encounter Details Date Type Department Care Team (Late Contact Info) Description 06/13/2022 Orders Only [facility] [address] [place] [address] Jerrica Girard FNP Social History Tobacco [...] Telemedicine [facility] [address] [place] [address] Mayito Acuña, PharmD [address] [place] [address] 07/30/2024 3:00 PM EDT Office Visit [facility] ADULT DENTAL [address] [place] [address] Demario Bocanegra documented as of this encounter Visit Diagnoses Not on filedocumented in this encounter Care Teams Balance Sheet Analyst Relationship Specialty Start Date End Date Cinthya Ray MD [address] [place] [address] PCP - General Family Medicine 10/23/11 Mayito Acuña, PharmD [address] [place] [address] Pharmacist Internal Medicine 03/07/23 documented as of this encounter
--- OUTSIDE RECORDS SUMMARY | 2024-04-15 08:04 | XMS_ITS | Encounter Summary ---
Author Organization [employer] [facility] Address [address] [place] [address] 7 [place] [address] Care Team Providers Care Supervisor Coffee Name Role Phone Cinthya Ray MD Primary Care Provider [phone] Mayito Acuña PharmD Unavailable [phone] Reason for Visit * Reason Onset Date Comments Med Refill 03/23/2024 Encounter Details Date Type Department Care Team (Late st Contact Info) Description 03/23/2024 Refill [facility] MEDICINE 230 [place], [place] [phone] Cinthya Ray MD 230 [place], [place] [phone] Social History Tobacco Use Types Packs/Day Years [...] 04/23/2024 3:30 PM EDT Telemedicine [facility] MEDICINE 230 [place] [address] Mayito Acuña PharmD 230 [place] [address] 07/30/2024 3:00 PM EDT Office Visit [facility] ADULT DENTAL [address] [place] [address] Demario Bocanegra documented as of this encounter [...] documented as of this encounter Care Teams Supervisor Coffee Relationship Specialty Start Date End Date Cinthya Ray MD 230 [place] [address] PCP - General Family Medicine 10/23/11 Mayito Acuña, DyanD [address] [place] [address] Pharmacist Internal Medicine 03/07/23 documented as of this encounter
--- OUTSIDE RECORDS SUMMARY | 2024-04-15 08:04 | XMS_ITS | Encounter Summary ---
Author Organization [employer] Address [address] [facility] 7 [place] [address] Care Team Providers Care Machine Skiver Name Role Phone Cinthya Ray MD Primary Care Provider [phone] Mayito Acuña PharmD Unavailable [phone] Encounter Details Date Type Department Care Team (Late st Contact Info) Description 04/06/2024 Orders Only [facility] MEDICINE 230 [place], [place] [phone] Lexis Spann MD [address] [place], [place] [phone] Social History Tobacco Use Types Packs/Day Years [...] as of this encounter Miscellaneous Notes * Result Encounter Note - Lexis Spann MD - 04/06/2024 11:59 PM EST Vaginal swab done yesterday showed BV. Please call patient and explained that the test showed increased bacteria overgrowth in her vagina that likely come from change in the acidity (pH) of the vagina, sometimes form antibiotics use, vaginal douches or sperm. Tell her that those bacteria normally live there and that the body usually will control them, but since she is symptomatic, I will treat her with Flagyl x 7 days. Tell her that those bacteria do not come from STD, that her partner doesn't need to be tested or rx for anything at this time. Tell her to fu with me as scheduled. documented in this encounter Plan of Treatment Upcoming Encounters Date Type Department Care Team (Late st Contact Info) Description 04/23/2024 3:30 PM EDT Telemedicine [facility] MED[facility]INE 230 [place], [place] [phone] Mayito Acuña, PharmD [address] [place] [address] 07/30/2024 3:00 PM EDT Office Visit [facility] ADULT DENTAL [address] [place] [address] Demario Bocanegra documented as of this encounter [...] DETECTION BY PCR NOT DETECTED Not Detect [facility] BACTERIAL VAGINOSIS DETECTION BY PCR POSITIVE(A) Negative [facility] Comment:The BV organism targ ets of [...] DETECTION BY PCR NOT DETECTED Not Detect [facility] Deyanira glab krusei PCR NOT DETECTED Not Detect [facility] 04/06/2024 5:04 PM EST 04/07/2024 11:23 AM EST us Lexis Spann MD LAB MICROBIOLOGY - GENER AL ORDERABLES Final Result [facility] [address] [place] [address] [phone] documented in this encounter Visit Diagnoses Not on filedocumented in this encounter Additional Health Concerns Assessment Noted Time PHQ-9 Depression Total Score: 11 024 9:48 AM EDT documented as of this encounter Care Teams Machine Skiver Relationship Specialty Start Date End Date Cinthya Ray MD [address] [place] [address] PCP - General Family Medicine 10/23/11 Mayito Acuña, Citlali [address] [place] [address] Pharmacist Internal Medicine 03/07/23 documented as of this encounter
--- OUTSIDE RECORDS SUMMARY | 2024-04-15 08:05 | XMS_ITS | Encounter Summary ---
Author Organization [employer] Address [address] [place] [address] 7 [place] [address] Care Team Providers Care Assembly Line Machine Operator Name Role Phone Cinthya Ray MD Primary Care Provider [phone] Mayito Acuña PharmD Unavailable [phone] Reason for Visit * Reason Onset Date Comments Appointment Request 09/02/2022 Encounter Details Date Type Department Care Team ([facility] st Contact Info) Description 09/02/2022 Telephone [facility] MED [facility] PEDS [address] [place], [place] [phone] Cinthya Ray MD 230 [place] [address] Appointment Request Social History Tobacco Use Types [...] her kidney failure.' Please contact pt at [phone] documented in this encounter Plan of Treatment Upcoming Encounters Date Type Department Care Team (Late st Contact Info) Description 04/23/2024 3:30 PM EDT Telemedicine [facility] MEDICINE [address] [place] [address] Mayito Acuña, PharmD [address] [place] [address] 07/30/2024 3:00 PM EDT Office Visit [facility] CHC ADULT DENTAL [address] [place] [address] Demario Bocanegra documented as of this encounter Visit Diagnoses Not on filedocumented in this encounter Care Teams Assembly Line Machine Operator Relationship Specialty Start Date End Date Cinthya Ray MD [address] [place] [address] PCP - General Family Medicine 10/23/11 Mayito Acuña, PharmD [address] [place] [address] Pharmacist Internal Medicine 03/07/23 documented as of this encounter
--- OUTSIDE RECORDS SUMMARY | 2024-04-15 08:05 | XMS_ITS | Encounter Summary ---
Author Organization [employer] [facility] Address [address] [place] [address] 7 [place] [address] Care Team Providers Care Surveyor Mine Name Role Phone Cinthya Ray MD Primary Care Provider [phone] Mayito Acuña PharmD Unavailable [phone] Reason for Visit * Reason Onset Date Comments Med Refill 10/30/2023 Encounter Details Date Type Department Care Team (Late st Contact Info) Description 10/30/2023 Refill [facility] MEDICINE [address] [place], [place] [phone] Cinthya Ray MD [address] [place], [place] [phone] Social History Tobacco Use Types Packs/Day Years [...] Info) Description 04/23/2024 3:30 PM EDT Telemedicine [facility] MEDICINE [address] [place] [address] Mayito Acuña PharmD [address] [place] [address] 07/30/2024 3:00 PM EDT Office Visit [facility] CHC ADULT DENTAL [address] [place] [address] Demario Bocanegra documented as of this encounter [...] documented as of this encounter Care Teams Surveyor Mine Relationship Specialty Start Date End Date Cinthya Ray MD [address] [place] [address] PCP - General Family Medicine 10/23/11 Mayito Acuña, PharmD [address] [place] [address] Pharmacist Internal Medicine 03/07/23 documented as of this encounter
--- OUTSIDE RECORDS SUMMARY | 2024-04-15 08:05 | XMS_ITS | Encounter Summary ---
Author Organization [employer] Address [address] [place] [address] 7 [place] [address] Care Team Providers Care Watch Parts Grinder Name Role Phone Cinthya Ray MD Primary Care Provider [phone] Mayito Acuña PharmD Unavailable [phone] Reason for Visit * Reason Onset Date Comments Med Refill 12/24/2023 Encounter Details Date Type Department Care Team (Late st Contact Info) Description 12/24/2023 Refill [facility] CHC MED & PEDS [address] [place], [place] [phone] Cinthya Ray MD [address] [place] [address] Type 2 diabetes mellitus with hyperglycemia, without long-term current use of insulin ([facility]) Social History Tobacco Use Types [...] 04/23/2024 3:30 PM EDT Telemedicine [facility] MEDICINE [address] [place] [address] Mayito Acuña PharmD [address] [place] [address] 07/30/2024 3:00 PM EDT Office Visit [facility] CHC ADULT DENTAL [address] [place] [address] Demario Bocanegra documented as of this encounter [...] current use of insulin ([facility]) documented in this encounter Additional Health Concerns Assessment Noted Time PHQ-9 Depression Total Score: 11 024 9:48 AM EDT documented as of this encounter Care Teams Watch Parts Grinder Relationship Specialty Start Date End Date Cinthya Ray MD [address] [place] [address] PCP - General Family Medicine 10/23/11 Mayito Acuña, DyanD [address] [place] [address] Pharmacist Internal Medicine 03/07/23 documented as of this encounter
--- OUTSIDE RECORDS SUMMARY | 2024-04-15 08:05 | XMS_ITS | Encounter Summary ---
Author Organization [facility] Address [address] [place] [address] 7 [place] [address] Care Team Providers Care Medical Asst Name Role Phone Cinthya Ray MD Primary Care Provider [phone] Mayito Acuña PharmD Unavailable [phone] Reason for Visit * Reason Onset Date Comments Med Refill 11/02/2023 Encounter Details Date Type Department Care Team (Late st Contact Info) Description 11/02/2023 Refill [facility] MEDICINE [address] [place], [place] [phone] Cinthya Ray MD [address] [place], [place] [phone] Social History Tobacco Use Types Packs/Day Years [...] but unableto make. Pt will come to [facility] today open till 8pm. Pt [...] Gill Sent: 11/10/2023 5:32 PM EDT To: [facility] Front Office Subject: Appointment Request Appointment Request From: Sonali Rosa With Provider: Cinthya Ray MD [[facility]] Preferred Date Range: 11/11/2023 - [...] EDT Telemedicine [facility] MEDICINE [address] [place] [address] Mayito Acuña PharmD [address] [place] [address] 07/30/2024 3:00 PM EDT Office Visit [facility] ADULT DENTAL [address] [place] [address] Demario Bocanegra documented as of this encounter [...] documented as of this encounter Care Teams Medical Asst Relationship Specialty Start Date End Date Cinthya Ray MD [address] [place] [address] PCP - General Family Medicine 10/23/11 Mayito Acuña PharmD [address] [place] [address] Pharmacist Internal Medicine 03/07/23 documented as of this encounter
--- OUTSIDE RECORDS SUMMARY | 2024-04-15 08:05 | XMS_ITS | Encounter Summary ---
Author Organization [employer] Address [address] [place] [address] 7 [place] [address] Care Team Providers Care Tire Wrapper Name Role Phone Cinthya Ray MD Primary Care Provider [phone] Mayito Acuña PharmD Unavailable [phone] Reason for Visit * Reason Onset Date Comments Med Refill 10/30/2023 Encounter Details Date Type Department Care Team (Late st Contact Info) Description 10/30/2023 Refill [facility] CHC MED & PEDS [address] [place], [place] [phone] Cinthya Ray MD [address] [place] [address] Type 2 diabetes mellitus with hyperglycemia, without long-term current use of insulin ([facility]) Social History Tobacco Use Types Packs/Day [...] Description 04/23/2024 3:30 PM EDT Telemedicine [facility] MEDICINE [address] [place] [address] Mayito Acuña, DyanD [address] [place] [address] 07/30/2024 3:00 PM EDT Office Visit [facility] CH[facility] ADULT DENTAL [address] [place] [address] Demario Bocanegra documented as of this encounter [...] hyperglycemia, without long-term current use of insulin ([facility]) documented in this encounter Additional Health Concerns Assessment Noted Time PHQ-9 Depression Total Score: 11 024 9:48 AM EDT documented as of this encounter Care Teams Tire Wrapper Relationship Specialty Start Date End Date Cinthya Ray MD [address] [place] [address] PCP - General Family Medicine 10/23/11 Mayito Acuña, Citlali [address] [place] [address] Pharmacist Internal Medicine 03/07/23 documented as of this encounter
--- OUTSIDE RECORDS SUMMARY | 2024-04-15 08:05 | XMS_ITS | Encounter Summary ---
Author Organization [employer] Address [address] [facility] 7t [place] [address] Care Team Providers Care Cytogeneticist Name Role Phone Cinthya Ray MD Primary Care Provider [phone] Mayito Acuña PharmD Unavailable [phone] Encounter Details Date Type Department Care Team ([facility] st Contact Info) Description 08/05/2023 Orders Only [facility] CHC MED & PEDS [address] [place], [place] [phone] Izzy Olvera FNP 230 [place] [address] Social History Tobacco Use Types Packs/Day Years [...] Info) Description 04/23/2024 3:30 PM EDT Telemedicine [facility] MEDICINE [address] [place] [address] Mayito Acuña PharmD [address] [place] [address] 07/30/2024 3:00 PM EDT Office Visit [facility] ADULT DENTAL [address] [place] [address] Demario Bocanegra documented as of this encounter [...] documented as of this encounter Care Teams Cytogeneticist Relationship Specialty Start Date End Date Cinthya Ray MD [address] [place] [address] PCP - General Family Medicine 10/23/11 Mayito Acuña PharmD [address] [place] [address] Pharmacist Internal Medicine 03/07/23 documented as of this encounter
--- OUTSIDE RECORDS SUMMARY | 2024-04-15 08:05 | XMS_ITS | Encounter Summary ---
Author Organization [employer] [facility] Address [address] [place] [address] 7 [place] [address] Care Team Providers Care Greens Planter Name Role Phone Cinthya Ray MD Primary Care Provider [phone] Mayito Acuña PharmD Unavailable [phone] Reason for Visit * Reason Comments Med Refill Encounter Details Date Type Department Care Team (Late st Contact Info) Description 08/31/2022 Refill [facility] MEDICINE [address] [place] [address] Starla Nuñez MD 230 [place] [address] Injury of head, initial encounter Social History [...] Description 04/23/2024 3:30 PM EDT Telemedicine [facility] MEDICINE [address] [place] [address] Mayito Acuña, Citlali [address] [place] [address] 07/30/2024 3:00 PM EDT Office Visit [facility] CHC ADULT DENTAL [address] [place] [address] Demario Bocanegra documented as of this encounter Visit Diagnoses Diagnosis Injury of head, initial encounter documented in this encounter Care Teams Greens Planter Relationship Specialty Start Date End Date Cinthya Ray MD [address] [place] [address] PCP - General Family Medicine 10/23/11 Mayito Acuña, Citlali [address] [place] [address] Pharmacist Internal Medicine 03/07/23 documented as of this encounter
--- OUTSIDE RECORDS SUMMARY | 2024-04-15 08:05 | XMS_ITS | Encounter Summary ---
Author Organization [employer] Address [address] [place] [address] 7 [place] [address] Care Team Providers Care Final Inspection Supervisor Name Role Phone Cinthya Rya MD Primary Care Provider Mayito Acuña PharmD Unavailable Reason for Visit * Reason Onset Date Comments Med Refill 09/29/2023 Encounter Details Date Type Department Care Team (Late st Contact Info) Description 09/29/[address] [facility] [address] [place], [place] [phone] Cinthya Ray MD [address] [place], [place] [phone] Type 2 diabetes mellitus with hyperglycemia, without long-term current use of insulin ([facility]) Social History Tobacco Use Types [...] EDT Telemedicine [facility] [address] [place] [address] Mayito Acuña, PharmD [address] [place] [address] 07/30/2024 3:00 PM EDT Office Visit [facility] ADULT DENTAL [address] [place] [address] Demario Bocanegra documented as of this encounter [...] hyperglycemia, without long-term current use of insulin ([facility]) documented in this encounter Additional Health Concerns Assessment Noted Time PHQ-9 Depression Total Score: 11 024 9:48 AM EDT documented as of this encounter Care Teams Final Inspection Supervisor Relationship Specialty Start Date End Date Cinthya Ray MD [address] [place] [address] PCP - General Family Medicine 10/23/11 Mayito Acuña, Citlali [address] [place] [address] Pharmacist Internal Medicine 03/07/23 documented as of this encounter
--- OUTSIDE RECORDS SUMMARY | 2024-04-15 08:05 | XMS_ITS | Encounter Summary ---
Author Organization [employer] [facility] Address [address] [place] [address] 7 [place] [address] Care Team Providers Care Nail Technician Teacher Name Role Phone Cinthya Ray MD Primary Care Provider [phone] Mayito Acuña PharmD Unavailable [phone] Reason for Visit * Reason Onset Date Comments Med Refill 08/06/2023 Encounter Details Date Type Department Care Team (Late st Contact Info) Description 08/06/2023 Refill [facility] [address] [place], [place] [phone] Cinthya Ray MD [address] [place], [place] [phone] Social History Tobacco Use Types Packs/Day Years [...] Info) Description 04/23/2024 3:30 PM EDT Telemedicine [facility] [address] [place] [address] Mayito Acuña PharmD [address] [place] [address] 07/30/2024 3:00 PM EDT Office Visit [facility] CHC ADULT DENTAL [address] [place] [address] Demario Bocanegra documented as of this encounter [...] documented as of this encounter Care Teams Nail Technician Teacher Relationship Specialty Start Date End Date Cinthya Ray MD [address] [place] [address] PCP - General Family Medicine 10/23/11 Mayito Acuña, PharmD [address] [place] [address] Pharmacist Internal Medicine 03/07/23 documented as of this encounter
--- OUTSIDE RECORDS SUMMARY | 2024-04-15 08:05 | XMS_ITS | Encounter Summary ---
Author Organization [employer] Address [address] [facility] 7t [place] [address] Care Team Providers Care Tech Brazer Tester Name Role Phone Cinthya Ray MD Primary Care Provider [phone] Mayito Acuña PharmD Unavailable [phone] Encounter Details Date Type Department Care Team (Late st Contact Info) Description 04/07/2024 Telephone [facility] [address] [place], [place] [phone] Lexis Spann MD [address] [place], [place] [phone] Social History Tobacco Use Types Packs/Day Years [...] encounter Miscellaneous Notes * Telephone Encounter - Divya Florian RN - 04/07/2024 4:17 PM EST TC placed to pt to inform and advise of below provider message. Pt states she already saw the results and picked up the medication today. Advised to take medication as prescribed. Pt verbalized understanding of the message and denies questions or concerns at this time. ----- Message from Lexis Spann MD sent at 04/07/2024 2:51 PM EST ----- Vaginal swab done yesterday showed BV. Please [...] PM EDT Telemedicine [facility] [address] [place] [address] Mayito Acuña PharmD [address] [place] [address] 07/30/2024 3:00 PM EDT Office Visit [facility] CHC ADULT DENTAL [address] [place] [address] Demario Bocanegra documented as of this encounter [...] documented as of this encounter Care Teams Tech Brazer Tester Relationship Specialty Start Date End Date Cinthya Ray MD [address] [place] [address] PCP - General Family Medicine 10/23/11 Mayito Acuña PharmD [address] [place] [address] Pharmacist Internal Medicine 03/07/23 documented as of this encounter
--- OUTSIDE RECORDS SUMMARY | 2024-04-15 08:05 | XMS_ITS | Encounter Summary ---
Author Organization [employer] Address [address] [place] [address] 7 [place] [address] Care Team Providers Care Needle Punch Machine Operator Helper Name Role Phone Cinthya Ray MD Primary Care Provider [phone] Mayito Acuña PharmD Unavailable [phone] Reason for Visit * Reason Onset Date Comments Med Refill 09/29/2023 Encounter Details Date Type Department Care Team (Late st Contact Info) Description 09/29/2023 Refill [facility] CH[facility] MED & PEDS [address] [place], [place] [phone] Cinthya Ray MD [address] [place] [address] Type 2 diabetes mellitus with hyperglycemia, without long-term current use of insulin ([facility]) Social History Tobacco Use Types [...] 3:30 PM EDT Telemedicine [facility]INE 230 [place] [address] Mayito Acuña, DyanD [address] [place] [address] 07/30/2024 3:00 PM EDT Office Visit [facility] CHC ADULT DENTAL [address] [place] [address] Demario Bocanegra documented as of this encounter [...] hyperglycemia, without long-term current use of insulin ([facility]) documented in this encounter Additional Health Concerns Assessment Noted Time PHQ-9 Depression Total Score: 11 024 9:48 AM EDT documented as of this encounter Care Teams Needle Punch Machine Operator Helper Relationship Specialty Start Date End Date Cinthya Ray MD [address] [place] [address] PCP - General Family Medicine 10/23/11 Mayito Acuña, Citlali [address] [place] [address] Pharmacist Internal Medicine 03/07/23 documented as of this encounter
--- OUTSIDE RECORDS SUMMARY | 2024-04-15 08:05 | XMS_ITS | Encounter Summary ---
Author Organization [employer] Address [address] [facility] 7 [place] [address] Care Team Providers Care Supervisor Shed Workers Name Role Phone Cinthya Ray MD Primary Care Provider [phone] Mayito Acuña PharmD Unavailable Encounter Details Date Type Department Care Team ([facility] st Contact Info) Description 06/30/2023 Orders Only [facility] 230 [place], [place] [phone] Mayito Acuña, PharmD 230 [place], [place] [phone] Type 2 diabetes mellitus with hyperglycemia, with long-term current use of insulin ([facility]) (Primary Dx) Social History Tobacco [...] Info) Description 04/23/2024 3:30 PM EDT Telemedicine [facility] [address] [place] [address] Mayito Acuña PharmD [address] [place] [address] 07/30/2024 3:00 PM EDT Office Visit [facility] CHC ADULT DENTAL [address] [place] [address] Demario Bocanegra documented as of this encounter [...] hyperglycemia, with long-term current use of insulin ([facility]) documented in this encounter Results * Hematoxylin and Eosin Stain (06/30/2023 12:47 PM EDT) 06/30/2023 12:4 7 PM EDT 06/30/2023 1:27 PM EDT [facility] - 07/02/2023 9:30 AM EDT ----- ------- Name: Sonali Gill ?Age/Sex: 33/F ? : 1990 Unit#: [id number] ?? Attend Dr: Jose Figueroa MD ?Re06/30/23 ?Status: DEP SDC ? Location: HO.SSS ?Disch: ? ----- ------- SPEC : [id number] ? RECD: 06/30/23-7 ? STATUS: ??SOUT ? REQ NUM: [id number] ? MELANIA: 06/30/23-1247 ? SUBM DR: Jose [...] Gill ?Age/Sex: 33/F ? : 1990 Unit#: [id number] ?? Attend Dr: Jose Figueroa MD ?Re06/30/23 ?Status: DEP SDC ? Location: HO.SSS ?Disch: ? ----- ------- SPEC : [id number] ? RECD: 06/30/23 ? STATUS: ??SOUT ? REQ NUM: [id number] ? MELANIA: 06/30/23-1246 ? SUBM DR: Jose [...] To: ?? Jose Figueroa MD ?? [address] ?? [place] [address] ?? [phone] ?? Cinthya Ray MD ?? [address] [facility] ?? [place] [address] ?? ----- ------- Signed (signature on file) Esa Aguiar MD 07/02/23 0930 ? ----- ------- ? END OF REPORT ? us Generic External Data Provider LAB BLOOD ORDERAB LES Final Result [facility] [address] [place] [address] [phone] documented in this encounter Visit Diagnoses Diagnosis Type 2 diabetes mellitus with hyperglycemia, with long-term current use of insulin ([facility])- Primary documented in this encounter Additional Health Concerns Assessment Noted Time PHQ-9 Depression Total Score: 0 06/10/19 24 2:55 PM EDT documented as of this encounter Care Teams Supervisor Shed Workers Relationship Specialty Start Date End Date Cinthya Ray MD 230 [place] [address] PCP - General Family Medicine 10/23/11 Mayito Acuña, Citlali [address] [place] [address] Pharmacist Internal Medicine 03/07/23 documented as of this encounter
--- OUTSIDE RECORDS SUMMARY | 2024-04-15 08:05 | XMS_ITS | Encounter Summary ---
Author Organization [employer] Address [address] [place] [address] 7 [place] [address] Care Team Providers Care Rehanger Name Role Phone Cinthya Ray MD Primary Care Provider [phone] Mayito Acuña PharmD Unavailable Reason for Visit * Reason Onset Date Comments Med Refill 03/12/2024 Encounter Details Date Type Department Care Team (Late st Contact Info) Description 03/12/2024 Refill [facility] CHC MED & PEDS [address] [place], [place] [phone] Cinthya Ray MD 230 [place] [address] Type 2 diabetes mellitus with hyperglycemia, without long-term current use of insulin ([facility]) Social History Tobacco Use Types Packs/Day Years [...] PM EDT Telemedicine [facility] [address] [place] [address] Mayito Acuña PharmD [address] [place] [address] 07/30/2024 3:00 PM EDT Office Visit [facility] CHC ADULT DENTAL [address] [place] [address] Demario Bocanegra documented as of this encounter [...] hyperglycemia, without long-term current use of insulin ([facility]) documented in this encounter Additional Health Concerns Assessment Noted Time PHQ-9 Depression Total Score: 11 024 9:48 AM EDT documented as of this encounter Care Teams Rehanger Relationship Specialty Start Date End Date Citnhya Ray MD [address] [place] [address] PCP - General Family Medicine 10/23/11 Mayito Acuña, DyanD [address] [place] [address] Pharmacist Internal Medicine 03/07/23 documented as of this encounter
--- OUTSIDE RECORDS SUMMARY | 2024-04-15 08:05 | XMS_ITS | Clinical Summary ---
Author Organization [facility] Address [address] [place] [address] Phone Care Team Providers Care Vertical Lathe Operator Name Role Phone Unavailable Primary Care Provider Unavailabl e Allergies No known active allergies Encounters Date Type Department Care Team Description 02/29/2024 2:07 AM EST - 02/29/2024 3:08 AM EST Emergency [facility] Emergency [address] [place] [address] Viral syndrome (Primary Dx) Discharge [...] LAB MICROBIOLOGY METHOD 02/29/2024 3:00 AM EST [facility] Influenza A PCR Not Detected Not Detected LAB MICROBIOLOGY METHOD 02/29/2024 3:00 AM EST [facility] Influenza B PCR Not Detected Not Detected LAB MICROBIOLOGY METHOD 02/29/2024 3:00 AM EST [facility] Coronavirus 229E Not Detected Not Detected LAB MICROBIOLOGY METHOD 02/29/2024 3:00 AM [facility] Coronavirus HKU1 Not Detected Not Detected LAB MICROBIOLOGY METHOD 02/29/2024 3:00 AM [facility] Coronavirus OC43 Not Detected Not Detected LAB MICROBIOLOGY METHOD 02/29/2024 3:00 AM EST [facility] Coronavirus NL63 Not Detected Not Detected LAB MICROBIOLOGY METHOD 02/29/2024 3:00 AM EST [facility] Parainfluenza Virus 1 Not Detected Not Detected LAB MICROBIOLOGY METHOD 02/29/2024 3:00 AM [facility] Parainfluenza Virus 2 Not Detected Not Detected LAB MICROBIOLOGY METHOD 02/29/2024 3:00 AM [facility] Parainfluenza Virus 3 Not Detected Not Detected LAB MICROBIOLOGY METHOD 02/29/2024 3:00 AM EST [facility] Parainfluenza Virus 4 Not Detected Not Detected LAB MICROBIOLOGY METHOD 02/29/2024 3:00 AM [facility] RSV PCR Not Detected Not Detected LAB MICROBIOLOGY METHOD 02/29/2024 3:00 AM [facility] Human Metapneumovirus A and B Not Detected Not Detected LAB MICROBIOLOGY METHOD 02/29/2024 3:00 AM [facility] Rhinovirus/Entero virus Not Detected Not Detected LAB MICROBIOLOGY METHOD 02/29/2024 3:00 AM EST [facility] Bordetella pertussis Not Detected Not Detected LAB MICROBIOLOGY METHOD 02/29/2024 3:00 AM [facility] Bordetella parapertussis Not Detected Not Detected LAB MICROBIOLOGY METHOD 02/29/2024 3:00 AM [facility] Mycoplasma pneumo by PCR Not Detected Not Detected LAB MICROBIOLOGY METHOD 02/29/2024 3:00 AM [facility] Chlamydia pneumoniae Not Detected Not Detected LAB MICROBIOLOGY METHOD 02/29/2024 3:00 AM [facility] SARS COV-2 Not Detected Not Detected LAB MICROBIOLOGY METHOD 02/29/2024 3:00 AM [facility] Swab Both anterior nares / Unknown Non-blood Collection / Unknown 02/29/2024 1:27 AM EST 02/29/2024 1:46 AM [facility] - 02/29/2024 3:00 AM EST Testing was performed using the XbyMe Respiratory Pathogen PCR Assay. All results must [...] Valero MD LAB MICROBIOLOGY - GENERAL [facility] Final Result [facility] [address] [place] [address], from Last 3 Months Insurance MEDICAID - [place]
--- OUTSIDE RECORDS SUMMARY | 2024-04-15 08:05 | XMS_ITS | Encounter Summary ---
Author Organization [employer] Address [address] [facility] 7 [place] [address] Care Team Providers Care Turret Press Operator Name Role Phone Cinthya Ray MD Primary Care Provider [phone] Mayito Acuña PharmD Unavailable [phone] Encounter Details Date Type Department Care Team (Late st Contact Info) Description 04/07/2024 Orders Only [facility] [address] [place], [place] [phone] Lexis Spann MD [address] [place], [place] [phone] Social History Tobacco Use Types Packs/Day Years [...] Info) Description 04/23/2024 3:30 PM EDT Telemedicine [facility] [address] [place] [address] Mayito Acuña PharmD [address] [place] [address] 07/30/2024 3:00 PM EDT Office Visit [facility] CHC ADULT DENTAL [address] [place] [address] Demario Bocanegra documented as of this encounter [...] documented as of this encounter Care Teams Turret Press Operator Relationship Specialty Start Date End Date Cinthya Ray MD [address] [place] [address] PCP - General Family Medicine 10/23/11 Mayito Acuña, Citlali [address] [place] [address] Pharmacist Internal Medicine 03/07/23 documented as of this encounter
--- OUTSIDE RECORDS SUMMARY | 2024-04-15 08:05 | XMS_ITS | Encounter Summary ---
Author Organization [employer] [facility] Address [address] [place] [address] 7 [place] [address] Care Team Providers Care Ditching Machine Operator Name Role Phone Cinthya Ray MD Primary Care Provider [phone] Mayito Acuña PharmD Unavailable Reason for Visit * Reason Onset Date Comments Results 12/09/2022 Encounter Details Date Type Department Care Team ([facility] st Contact Info) Description 12/09/2022 Telephone [facility] [address] [place], [place] [phone] Cinthya Ray MD [address] [place] [address] Results Social History Tobacco Use Types Packs/Day [...] to US results. Please contact pt at [phone] documented in this encounter Plan of Treatment Upcoming Encounters Date Type Department Care Team (Late st Contact Info) Description 04/23/2024 3:30 PM EDT Telemedicine [facility] [address] [place] [address] Mayito Acuña, Citlali [address] [place] [address] 07/30/2024 3:00 PM EDT Office Visit [facility] CHC ADULT DENTAL [address] [place] [address] Demario Bocanegra documented as of this encounter Visit Diagnoses Not on filedocumented in this encounter Care Teams Ditching Machine Operator Relationship Specialty Start Date End Date Cinthya Ray MD [address] [place] [address] PCP - General Family Medicine 10/23/11 Mayito Acuña, PharmD [address] [place] [address] Pharmacist Internal Medicine 03/07/23 documented as of this encounter
--- OUTSIDE RECORDS SUMMARY | 2024-04-15 08:05 | XMS_ITS | Encounter Summary ---
Author Organization [employer] Address [address] [place] [address] 7 [place] [address] Care Team Providers Care Pantograph Transferrer Name Role Phone Cinthya Ray MD Primary Care Provider [phone] Mayito Acuña PharmD Unavailable Reason for Visit * Reason Onset Date Comments Med Refill 01/03/2023 Encounter Details Date Type Department Care Team (Late st Contact Info) Description 01/03/2023 Refill [facility] [address] [place], [place] [phone] Cinthya Ray MD [address] [place], [place] [phone] Social History Tobacco Use Types Packs/Day Years [...] [facility] [address] [place] [address] Mayito Acuña, PharmD [address] [place] [address] 07/30/2024 3:00 PM EDT Office Visit [facility] ADULT DENTAL [address] [place] [address] Demario Bocanegra documented as of this encounter Visit Diagnoses Not on filedocumented in this encounter Care Teams Pantograph Transferrer Relationship Specialty Start Date End Date Cinthya Ray MD [address] [place] [address] PCP - General Family Medicine 10/23/11 Mayito Acuña, PharmD [address] [place] [address] Pharmacist Internal Medicine 03/07/23 documented as of this encounter
--- OUTSIDE RECORDS SUMMARY | 2024-04-15 08:05 | XMS_ITS | Encounter Summary ---
Author Organization [employer] [facility] Address [address] [place] [address] 7 [place] [address] Care Team Providers Care Information Technology Teacher Name Role Phone Cinthya Ray MD Primary Care Provider [phone] Mayito Acuña PharmD Unavailable [phone] Reason for Referral * Consultation (Routine) - Authorized Specialty Diagnoses / Procedures Referred By Contcarly t Referred To Contact Pharmacy Diagnoses Type 2 diabetes mellitus with hyperglycemia, with long-term current use of insulin (CMS/HCC) Cinthya Ray MD [address] [place] [address] Phone: tel: fax: Referral ID Status Reason Start Date Expiration Date Visits Requested Visits Authorized [id number] Authorized Consult and Treat 12/23/2023 12/22/2024 6 6 Encounter Details Date Type Department Care Team (Late st Contact Info) Description 12/23/2023 Orders Only [facility] [address] [place] [phone] Cinthya Ray MD [address] [place], [place] [phone] Type 2 diabetes mellitus with hyperglycemia, with [...] Info) Description 04/23/2024 3:30 PM EDT Telemedicine [facility] [address] [place] [address] Mayito Acuña, PharmD [address] [place] [address] 07/30/2024 3:00 PM EDT Office Visit [facility] CHC ADULT DENTAL [address] [place] [address] Demario Bocanegra Scheduled Referrals Name Type Priority Associated Diagnoses Orde r Schedule Referral to Pharmacy CDTM Outpatient Referral Routine Type 2 diabetes mellitus with hyperglycemia, with long-term current use of insulin ([facility]) Ordered: 12/23/2023 documented as of this encounter Goals Goal Patient Goal Type Associated Problems Recent Progress Patient-Stated? Author Blood Pressure < 140/90 Blood Pressure 120/70(2024 5:10 PM EST) No Maytio Acuña PharmD Hemoglobin A1c < 7 Result Component 6.1( 10:46 AM EST) No Mayito Acuña PharmD documented as of this encounter Visit Diagnoses Diagnosis Type 2 diabetes mellitus with hyperglycemia, with long-term current use of insulin ([facility])- Primary documented in this encounter Additional Health Concerns Assessment Noted Time PHQ-9 Depression Total Score: 11 024 9:48 AM EDT documented as of this encounter Care Teams Information Technology Teacher Relationship Specialty Start Date End Date Cinthya Ray MD [address] [place] [address] PCP - General Family Medicine 10/23/11 Mayito Acuña PharmD [address] [place] [address] Pharmacist Internal Medicine 03/07/23 documented as of this encounter
--- OUTSIDE RECORDS SUMMARY | 2024-04-15 08:05 | XMS_ITS | Encounter Summary ---
Author Organization [employer] Address [address] [place] [address] 7 [place] [address] Care Team Providers Care Shop Supervisor Name Role Phone Cinthya Ray MD Primary Care Provider Mayito Acuña PharmD Unavailable [phone] Reason for Visit * Reason Onset Date Comments Med Refill 11/02/2023 Encounter Details Date Type Department Care Team (Late st Contact Info) Description 11/02/2023 Refill [facility] MED & PEDS [address] [place], [place] [phone] Cinthya Ray MD [address] [place] [address] Type 2 diabetes mellitus with hyperglycemia, without long-term current use of insulin ([facility]) Social History Tobacco Use [...] [facility] [address] [place] [address] Mayito Acuña, DyanD [address] [place] [address] 07/30/2024 3:00 PM EDT Office Visit [facility] CHC ADULT DENTAL [address] [place] [address] Demario Bocanegra documented as of this encounter [...] hyperglycemia, without long-term current use of insulin ([facility]) documented in this encounter Additional Health Concerns Assessment Noted Time PHQ-9 Depression Total Score: 11 024 9:48 AM EDT documented as of this encounter Care Teams Shop Supervisor Relationship Specialty Start Date End Date Cinthya Ray MD [address] [place] [address] PCP - General Family Medicine 10/23/11 Mayito Acuña, Citlali [address] [place] [address] Pharmacist Internal Medicine 03/07/23 documented as of this encounter
--- OUTSIDE RECORDS SUMMARY | 2024-04-15 08:05 | XMS_ITS | Encounter Summary ---
Author Organization [employer] Address [address] 7t [place] [address] Care Team Providers Care County Surveyor Name Role Phone Cinthya Ray MD Primary Care Provider [phone] Mayito Acuña PharmD Unavailable [phone] Encounter Details Date Type Department Care Team (Late st Contact Info) Description 04/13/2024 Telephone [facility] [address] [place], [place] [phone] Lexis Spann MD [address] [place] [address] Social History Tobacco Use Types Packs/Day Years [...] encounter Miscellaneous Notes * Telephone Encounter - Michelle Gomez RN - 04/13/2024 2:03 PM EST TC placed to pt regarding message below per Dr. Spann. No answer. Voice message left for pt toreturn call to [facility]. Pt to F/U as needed. ----- Message from Lexis Spann MD sent at 04/13/2024 12:53 PM EST ----- Urine culture on 04/10/2024 showed nonsignificant bacteriuria [...] this patient with no significant risk factors. documented in this encounter Plan of Treatment Upcoming Encounters Date Type Department Care Team ([facility] st Contact Info) Description 04/23/2024 3:30 PM EDT Telemedicine [facility] [address] [place] [address] [place] [address] Mayito Acuña, DyanD [address] [place] [address] 07/30/2024 3:00 PM EDT Office Visit [facility] ADULT DENTAL [address] [place] [address] Demario Bocanegra documented as of this encounter [...] documented as of this encounter Care Teams County Surveyor Relationship Specialty Start Date End Date Cinthya Rya MD [address] [place] [address] PCP - General Family Medicine 10/23/11 Mayito Acuña, Citlali [address] [place] [address] Pharmacist Internal Medicine 03/07/23 documented as of this encounter
--- OUTSIDE RECORDS SUMMARY | 2024-04-15 08:05 | XMS_ITS | Encounter Summary ---
Author Organization [employer] Address [address] [facility] 7 [place] [address] Care Team Providers Care Pewter Finisher Name Role Phone Cinthya Ray MD Primary Care Provider [phone] Mayito Acuña PharmD Unavailable [phone] Encounter Details Date Type Department Care Team ([facility] st Contact Info) Description 09/15/2023 Orders Only [facility] MEDICINE [address] [place], [place] [phone] Cinthya Ray MD 230 [place], [place] [phone] Type 2 diabetes mellitus with hyperglycemia, without long-term current use of insulin ([facility]) Social History Tobacco Use [...] [facility] MEDICINE [address] [place] [address] Mayito Acuña PharmD [address] [place] [address] 07/30/2024 3:00 PM EDT Office Visit [facility] CH[facility] ADULT DENTAL [address] [place] [address] Demario Bocanegra documented as of this encounter [...] without long-term current use of insulin ([facility]) documented in this encounter Additional Health Concerns Assessment Noted Time PHQ-9 Depression Total Score: 0 09/10/19 24 9:01 AM EDT documented as of this encounter Care Teams Pewter Finisher Relationship Specialty Start Date End Date Cinthya Ray MD [address] [place] [address] PCP - General Family Medicine 10/23/11 Mayito Acuña, DyanD [address] [place] [address] Pharmacist Internal Medicine 03/07/23 documented as of this encounter
== END 2024-04-15 07:59 | disposition home or self-care (01) ==
LOC: HO.XRAY 07:58
PROVIDERS: PCP Family Medicine; Visit Provider Surgery
DX: E66.9 Obesity, unspecified (principal); Z68.32 Body mass index [BMI] 32.0-32.9, adult; K22.70 Barrett's esophagus without dysplasia; K21.9 Gastro-esophageal reflux disease without esophagitis; E11.9 Type 2 diabetes mellitus without complications; Z79.4 Long term (current) use of insulin
CPT/HCPCS: 74246; 99212

== ENCOUNTER → 2024-04-15 08:00 | Outpatient (BNV) | payer MEDICAID, SELFPAY | PROVIDERS: PCP Family Medicine; Visit Provider Physician Assistant Surgical | DX: E66.9 Obesity, unspecified (principal); Z01.818 Encounter for other preprocedural examination | CPT/HCPCS: 74246 ==

== ENCOUNTER 2024-04-15 08:28 | Outpatient (AMB) | payer MEDICAID, SELFPAY ==
--- NOTE | 2024-04-15 08:41 | A.OFFVIS_ITS ---
Vital Signs 04/15/24 08:45 Height 5 ft 3 in Weight 179 lb BMI 31.7 Intake Visit Reasons: OV- MRI review LT shoulder Intake Note: Sonali is a 34 year old right hand dominant female who presents with complaints of progressively worsening left shoulder pain and stiffness. The patient states that she injured her left shoulder approximately 2 years ago. She has gone to f ormal physical therapy which seemed to aggravate her pain. The patient reports difficulty lifting her left hand above shoulder height. She has failed the last 6 weeks of conservative treatment which has included physical therapy exercises, Tylenol and anti-inflammatory medicines. The patient states that her left shoulder pain and stiffness are now interfering with her activities of daily living and her ability to sleep well through the night. She denies any numbness or tingling in either of her upper extremities. Allergies Seasonal Allergies Allergy (Mild, Verified 04/15/24 08:45) Runny Nose No Known Drug Allergies Allergy (Unknown, Verified 04/15/24 08:45) none Medication List - Last Reconciled 04/15/24 by Al Hays MD acetaminophen ER 650 mg PO Q8H cholecalciferol (vitamin D3) 125 mcg PO DAILY insulin degludec (Tresiba FlexTouch U-100 insulin) 10 units subcut QAM metformin ER 500 mg PO BID pantoprazole 40 mg PO DAILY sumatriptan succinate 25 mg PO Q2-4H PRN thiamine HCl (vitamin B1) 100 mg PO DAILY tirzepatide (Mounjaro) 2.5 mg subcut QWEEK zinc gluconate 30 mg PO DAILY PFSH Medical History Migraines Insulin dependent type 2 diabetes mellitus BMI 32.0-32.9,adult Obstructive sleep apnea Gallstones Body mass index (BMI) of 38.0 to 38.9 in adult Obesity Type 2 diabetes mellitus Surgical History History of esophagogastroduodenoscopy (EGD) History of cholecystectomy H/O tubal ligation History of surgery on wrist Hx of section Family History Father HTN (hypertension) Mother No problems noted. Sister Arthritis Knee problem Sister Arthritis Allergies Knee problem Brother No problems noted. Brother No problems noted. Son No problems noted. Son Autism Family/Other Breast cancer Social History Alcohol intake: never Patient Tobacco Use Status: Never used Tobacco Physical Exam Vital Signs: BMI result Body Mass Index 31.7 Const Other: Well-nourished well-developed very friendly female awake alert and oriented x3 in no acute distress Extrem Other: Bilateral upper extremity examination shows good capillary refill, no skin lesions noted, normal sensation light touch Left shoulder examination shows decreased active and passive range of motion when compared to her right shoulder, 4+ out of 5 strength with supraspinatus testing, positive impingement signs, tenderness over her acromioclavicular joint, no instability Results Reviewed Results Reviewed: MRI of the patient's right shoulder shows severe acromioclavicular joint narrowing, a type 2 acromion, signal change within the supraspinatus tendon most likely due to adhesive capsulitis Assessment & Plan Assessment & Plan (1) Impingement syndrome of left shoulder: Code(s): M75.42 - Impingement syndrome of left shoulder Category: Medical Plan Ms. Jose Rosa presents with progressively worsening left shoulder pain and stiffness due to impingement syndrome, acromioclavicular joint arthritis and adhesive capsulitis. I had a lengthy discussion with the patient regarding the treatment options. At this point she has failed continued non operative treatments. The risks and benefits of left shoulder surgery were discussed at length with the patient. The patient wishes to proceed with surgery. Surgery will most likely involve left shoulder diagnostic arthroscopy with distal clavicle excision, acromioplasty, capsular release and manipulation under anesthesia. The patient will be scheduled for next available date. She will follow-up as instructed. Feel free to call me at any time should questions regarding her orthopedic management arise. I spent 20 minutes in reviewing the patient's records and imaging studies, seeing the patient and documenting in the medical record. Coding Level of Care Code Est Pt Level 3 (99175) Complex EM visit Add On G2211 Diagnoses Impingement syndrome of left shoulder M75.42
[2024-04-15 08:45] VITALS: BMI 31.7
--- OUTSIDE RECORDS SUMMARY | 2024-04-15 08:51 | XMS_ITS | Clinical Summary ---
Author Organization [facility] Address [address] [place] [address] Phone Care Team Providers Care Swatch Checker Name Role Phone Unavailable Primary Care Provider Unavailabl e Allergies No known active allergies Encounters Date Type Department Care Team Description 02/29/2024 2:07 AM EST - 02/29/2024 3:08 AM EST Emergency [facility] Emergency [address] [place] [address] Viral syndrome (Primary Dx) Discharge [...] molecular study (02/29/2024 1:27 AM EST) Pathologist [facility] Adenovirus Detection by PCR Not Detected Not Detected LAB MICROBIOLOGY METHOD 02/29/2024 3:00 AM EST [facility] Influenza A PCR Not Detected Not Detected LAB MICROBIOLOGY METHOD 02/29/2024 3:00 AM EST [facility] Influenza B PCR Not Detected Not Detected LAB MICROBIOLOGY METHOD 02/29/2024 3:00 AM EST [facility] Coronavirus 229E Not Detected Not Detected LAB MICROBIOLOGY METHOD 02/29/2024 3:00 AM [facility] Coronavirus HKU1 Not Detected Not Detected LAB MICROBIOLOGY METHOD 02/29/2024 3:00 AM [facility] Coronavirus OC43 Not Detected Not Detected LAB MICROBIOLOGY METHOD 02/29/2024 3:00 AM EST [facility] Coronavirus NL63 Not Detected Not Detected LAB MICROBIOLOGY METHOD 02/29/2024 3:00 AM EST [facility] Parainfluenza Virus 1 Not Detected Not Detected LAB MICROBIOLOGY METHOD 02/29/2024 3:00 AM [facility] Parainfluenza Virus 2 Not Detected Not Detected LAB MICROBIOLOGY METHOD 02/29/2024 3:00 AM [facility] Parainfluenza Virus 3 Not Detected Not Detected LAB MICROBIOLOGY METHOD 02/29/2024 3:00 AM EST [facility] Parainfluenza Virus 4 Not Detected Not Detected LAB MICROBIOLOGY METHOD 02/29/2024 3:00 AM [facility] RSV PCR Not Detected Not Detected LAB MICROBIOLOGY METHOD 02/29/2024 3:00 AM [facility] Human Metapneumovirus A and B Not Detected Not Detected LAB MICROBIOLOGY METHOD 02/29/2024 3:00 AM [facility] Rhinovirus/Entero virus Not Detected Not Detected LAB MICROBIOLOGY METHOD 02/29/2024 3:00 AM EST [facility] Bordetella pertussis Not Detected Not Detected LAB MICROBIOLOGY METHOD 02/29/2024 3:00 AM [facility] Bordetella parapertussis Not Detected Not Detected LAB MICROBIOLOGY METHOD 02/29/2024 3:00 AM [facility] Mycoplasma pneumo by PCR Not Detected Not Detected LAB MICROBIOLOGY METHOD 02/29/2024 3:00 AM [facility] Chlamydia pneumoniae Not Detected Not Detected LAB MICROBIOLOGY METHOD 02/29/2024 3:00 AM [facility] SARS COV-2 Not Detected Not Detected LAB MICROBIOLOGY METHOD 02/29/2024 3:00 AM [facility] Swab Both anterior nares / Unknown Non-blood Collection / Unknown 02/29/2024 1:27 AM EST 02/29/2024 1:46 AM [facility] - 02/29/2024 3:00 AM EST Testing was performed using the [employer] Respiratory Pathogen PCR Assay. All results must [...] Valero MD LAB MICROBIOLOGY - GENERAL [facility] Final Result [facility] [address] [place] [address], from Last 3 Months Insurance [place]
== END 2024-04-15 09:12 | disposition home or self-care (01) ==
PROVIDERS: PCP Family Medicine; Visit Provider Orthopaedic Surgery
DX: M75.42 Impingement syndrome of left shoulder (principal); M19.012 Primary osteoarthritis, left shoulder
CPT/HCPCS: 99213

== ENCOUNTER 2024-04-22 14:22 | Outpatient (AMB) | payer OTHER, SELFPAY ==
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
--- OUTSIDE RECORDS SUMMARY | 2024-04-22 18:11 | XMS_ITS | Encounter Summary ---
Author Organization [employer] Address [address] [place] [address] [address] [place] [address] Care Team Providers Care Front End Ui Developer Name Role Phone Cinthya Ray MD Primary Care Provider [phone] Mayito Acuña PharmD Unavailable [phone] Reason for Visit * Reason Onset Date Comments callback request 12/30/2023 Encounter Details Date Type Department Care Team ([facility] st Contact Info) Description 12/30/2023 Telephone [facility] [address], [place] [phone] Cinthya Ray MD [address] [place] [address] callback request Social History Tobacco Use Types [...] the past 12 months, has t he [employer], gas, oil or water [employer] threatened to shut off services in your [...] EST Tc from pt returning call from [facility] to book an appointment for follow up Callback [phone] documented in this encounter Plan of Treatment Upcoming Encounters Date Type Department Care Team (Late st Contact Info) Description 04/23/2024 3:30 PM EDT Telemedicine [facility] [address] [place] [address] Mayito Acuña PharmD [address] [place] [address] 07/30/2024 3:00 PM EDT Office Visit [facility] [address] [place] [address] Demario Bocanegra documented as of this encounter [...] documented as of this encounter Care Teams Front End Ui Developer Relationship Specialty Start Date End Date Cinthya Ray MD [address] [place] [address] PCP - General Family Medicine 10/23/11 Mayito Acuña PharmD [address] [place] [phone] Pharmacist Internal Medicine 03/07/23 documented as of this encounter
--- OUTSIDE RECORDS SUMMARY | 2024-04-22 18:11 | XMS_ITS | Encounter Summary ---
Author Organization [facility] Address [address] [place] [address] [address] [place] [address] Care Team Providers Care High [employer] Math Tutor Name Role Phone Cinthya Ray MD Primary Care Provider [phone] Mayito Acuña PharmD Unavailable [phone] Encounter Details Date Type Department Care Team (Late Contact Info) Description 02/26/2022 Abstract [facility] [address] [place] [address] [phone] Cinthya Ray MD [address] [place] [phone] Social History Tobacco Use Types Packs/Day Years [...] Info) Description 04/23/2024 3:30 PM EDT Telemedicine [facility] [address] [place] [address] [phone] Mayito Acuña, PharmD [address] [place], [place] [phone] 07/30/2024 3:00 PM EDT Office Visit [facility] ADULT [facility] [address] [place] [address] Demario Bocanegra documented as of this encounter Visit Diagnoses Not on filedocumented in this encounter Care Teams [employer] Math Tutor Relationship Specialty Start Date End Date Cinthya Ray MD [address] [place] [phone] PCP - General Family Medicine 10/23/11 Mayito Acuña, DyanD [address] [place] [phone] Pharmacist Internal Medicine 03/07/23 documented as of this encounter
--- OUTSIDE RECORDS SUMMARY | 2024-04-22 18:12 | XMS_ITS | Encounter Summary ---
Author Organization [employer] Address 75 [facility] 7t [place] [address] Care Team Providers Care Byproducts Maker Name Role Phone Cinthya Ray MD Primary Care Provider [phone] Mayito Acuña PharmD Unavailable [phone] Encounter Details Date Type Department Care Team (Late st Contact Info) Description 04/06/2024 5:00 PM EST Office Visit [facility] [address] [place], [place] [phone] Lexis Spann MD 230 [place], [place] [phone] Lower urinary tract symptoms (LUTS) (Primary Dx); [...] the past 12 months, has t he [employer], gas, oil or water [employer] threatened to shut off services in your [...] 100 each 11 Blood Glucose Monitoring Suppl (Recite Me [place] [place] Lite) w/Device kit TEST BLOOD SUGAR EVERY DAY Blood Pressure Monitor kit Check blood pressure once daily and as needed 1 kit 0 cholecalciferol (Vitamin D-3) 25 MCG (1000 UT) tablet Take 1 tablet (25 mcg) by mouth Once per day.90 tablet 3 Continuous Glucose Senior Net C Developer (WALT[employer] [place]) device SCAN sensory EVERY 8 HOURS 1 [...] Description 04/23/2024 3:30 PM EDT Telemedicine [facility] [address] [place] [address] Mayito Acuña PharmD [address] [place] [address] 07/30/2024 3:00 PM EDT Office Visit [facility] [address] [place] [address] Demario Bocanegra Scheduled Orders Name Type Priority [...] EST) CT PCR NOT DETECTED Not Detect. [facility] Comment:A not detected test result does [...] psychologicalconsequences. NG PCR NOT DETECTED Not Detect. [facility] Comment:A not detected test result does [...] PM EST 04/07/2024 11:15 AM EST Narrative [facility] - 04/07/2024 1:26 PM EST Vaginal Lexis Spann MD LAB MICROBIOLOGY - GENER AL ORDERABLES Final Result Performing Organization Address [facility]/ZIP Co de Phone Number [facility] [address] [place] [phone] * Culture, Urine, Routine (04/06/2024 12:00 AM EST) Urine Urine specimen obtained by clean catch procedure / Unknown 04/06/2024 04/06/2024 Comment:CC Narrative [facility] - 04/10/2024 7:29 AM EST Escherichia [...] AL ORDERABLES Final Result Performing Organization Address [facility] Co de Phone Number [facility] [address] [place] [phone] documented in this encounter Visit Diagnoses Diagnosis Lower urinary tract symptoms (LUTS)- Primary Vaginal discharge Leukorrhea, not specified as infective documented in this encounter Additional Health Concerns Assessment Noted Time PHQ-9 Depression Total Score: 11 024 9:48 AM EDT documented as of this encounter Care Teams Byproducts Maker Relationship Specialty Start Date End Date Cinthya Ray MD [address] [place] [address] PCP - General Family Medicine 10/23/11 Mayito Acuña, Citlali [address] [place] [address] Pharmacist Internal Medicine 03/07/23 documented as of this encounter
--- OUTSIDE RECORDS SUMMARY | 2024-04-22 18:12 | XMS_ITS | Encounter Summary ---
Author Organization [employer] Address 75 [facility] 7 [place] [address] Care Team Providers Care Digital Account Supervisor Name Role Phone Cinthya Ray MD Primary Care Provider [phone] Mayito Acuña PharmD Unavailable [phone] Encounter Details Date Type Department Care Team (Late st Contact Info) Description 04/07/2024 Orders Only [facility] [address] [place], [place] [phone] Lexis Spann MD [address] [place], [place] [phone] Social History Tobacco Use Types Packs/Day Years [...] EDT Telemedicine [facility] [address] [place] [address] Mayito Acuña PharmD [address] [place] [address] 07/30/2024 3:00 PM EDT Office Visit [facility] [address] [place] [address] Demario Bocanegra documented as of this encounter Goals Goal Patient Goal Type Associated Problems Recent Progress Patient-Stated? Author Blood Pressure < 140/90 Blood Pressure 120/70(2024 5:10 PM EST) No Mayito Acuña, PharmaDo Hemoglobin A1c < 7 Result Component 6.1( 10:46 AM EST) No Mayito Acuña PharmD documented as of this encounter Visit Diagnoses Not on filedocumented in this encounter Additional Health Concerns Assessment Noted Time PHQ-9 Depression Total Score: 11 024 9:48 AM EDT documented as of this encounter Care Teams Digital Account Supervisor Relationship Specialty Start Date End Date Cinthya Ray MD [address] [place] [address] PCP - General Family Medicine 10/23/11 Mayito Acuña, Citlali [address] [place] [address] Pharmacist Internal Medicine 03/07/23 documented as of this encounter
--- OUTSIDE RECORDS SUMMARY | 2024-04-22 18:12 | XMS_ITS | Encounter Summary ---
Author Organization [employer] Address 75 [facility] 7t [place] [address] Care Team Providers Care Property Loss Insurance Claim Adjuster Name Role Phone Cinthya Ray MD Primary Care Provider [phone] Mayito Acuña PharmD Unavailable [phone] Encounter Details Date Type Department Care Team (Latest Contact Info) Description 04/22/2024 Travel Social History Tobacco Use Types Packs/Day [...] Info) Description 04/23/2024 3:30 PM EDT Telemedicine [facility] [address] [place] [address] Mayito Acuña PharmD [address] [place] [address] 07/30/2024 3:00 PM EDT Office Visit [facility] [address] [place] [address] Demario Bocanegra documented as of this encounter [...] documented as of this encounter Care Teams Property Loss Insurance Claim Adjuster Relationship Specialty Start Date End Date Cinthya Ray MD [address] [place] [address] PCP - General Family Medicine 10/23/11 Mayito Acuña PharmD [address] [place] [phone] Pharmacist Internal Medicine 03/07/23 documented as of this encounter
--- OUTSIDE RECORDS SUMMARY | 2024-04-22 18:12 | XMS_ITS | Encounter Summary ---
Author Organization [employer] [facility] Address [address] [place] [address] 7 [place] [address] Care Team Providers Care Regional Marketing Manager Name Role Phone Cinthya Ray MD Primary Care Provider [phone] Mayito Acuña PharmD Unavailable [phone] Reason for Visit * Reason Onset Date Comments Med Refill 03/23/2024 Encounter Details Date Type Department Care Team (Late st Contact Info) Description 03/23/2024 Refill [facility] 230 [place], [place] [phone] Cinthya Rya MD 230 [place], [place] [phone] Social History Tobacco Use Types Packs/Day Years [...] Info) Description 04/23/2024 3:30 PM EDT Telemedicine [facility] [address] [place] [address] Mayito Acuña PharmD 230 [place] [address] 07/30/2024 3:00 PM EDT Office Visit [facility] AD[facility] [address] [place] [address] Demario Bocanegra documented as of this encounter [...] documented as of this encounter Care Teams Regional Marketing Manager Relationship Specialty Start Date End Date Cinthya Ray MD 230 [place] [address] PCP - General Family Medicine 10/23/11 Mayito Acuña, DyanD 230 [place] [address] Pharmacist Internal Medicine 03/07/23 documented as of this encounter
--- OUTSIDE RECORDS SUMMARY | 2024-04-22 18:12 | XMS_ITS | Encounter Summary ---
Author Organization [employer] Address [address] [place] [address] 7 [place] [address] Care Team Providers Care Chief Diversity Officer Name Role Phone Cinthya Ray MD Primary Care Provider [phone] Mayito Acuña PharmD Unavailable [phone] Reason for Visit * Reason Onset Date Comments Med Refill 11/02/2023 Encounter Details Date Type Department Care Team (Late st Contact Info) Description 11/02/2023 Refill [facility] [address] [place], [place] [phone] Cinthya Ray MD 230 [place] [address] Type 2 diabetes mellitus with hyperglycemia, without long-term current use of insulin ([facility]) Social History Tobacco Use Types [...] 3:30 PM EDT Telemedicine [facility] 230 [place] [address] Mayito Acuña, DaynD [address] [place] [address] 07/30/2024 3:00 PM EDT Office Visit [facility] [address] [place] [address] Demario Bocanegra documented as of this encounter [...] hyperglycemia, without long-term current use of insulin ([facility]) documented in this encounter Additional Health Concerns Assessment Noted Time PHQ-9 Depression Total Score: 11 024 9:48 AM EDT documented as of this encounter Care Teams Chief Diversity Officer Relationship Specialty Start Date End Date Cinthya Ray MD [address] [place] [address] PCP - General Family Medicine 10/23/11 Mayito Acuña, Citlali [address] [place] [address] Pharmacist Internal Medicine 03/07/23 documented as of this encounter
--- OUTSIDE RECORDS SUMMARY | 2024-04-22 18:12 | XMS_ITS | Encounter Summary ---
Author Organization [employer] Address 75 [facility] 7t [place] [address] Care Team Providers Care Melting Operator Name Role Phone Cinthya Ray MD Primary Care Provider [phone] Mayito Acuña PharmD Unavailable Encounter Details Date Type Department Care Team (Late st Contact Info) Description 01/31/2024 Orders Only [facility] [address] [place], [place] [phone] Cinthya Ray MD [address] [place], [place] [phone] Vitamin D deficiency (Primary Dx) Social History [...] Telemedicine [facility] 230 [place] [address] Mayito Acuña PharmD [address] [place] [address] 07/30/2024 3:00 PM EDT Office Visit [facility] [address] [place] [address] Demario Bocanegra documented as of this encounter [...] documented as of this encounter Care Teams Melting Operator Relationship Specialty Start Date End Date Cinthya Ray MD [address] [place] [address] PCP - General Family Medicine 10/23/11 Mayito Acuña, DyanD [address] [place] [address] Pharmacist Internal Medicine 03/07/23 documented as of this encounter
--- OUTSIDE RECORDS SUMMARY | 2024-04-22 18:12 | XMS_ITS | Encounter Summary ---
Author Organization [employer] [facility] Address [address] [place] [address] 7 [place] [address] Care Team Providers Care Aircraft Sales Representative Name Role Phone Cinthya Ray MD Primary Care Provider [phone] Mayito Acuña PharmD Unavailable [phone] Reason for Visit * Reason Onset Date Comments Med Refill 08/06/2023 Encounter Details Date Type Department Care Team (Late st Contact Info) Description 08/06/2023 Refill [facility] 230 [place], [place] [phone] Cinthya Ray MD 230 [place], [place] [phone] Social History Tobacco Use Types Packs/Day Years [...] 3:30 PM EDT Telemedicine [facility] 230 [place] [address] Mayito Acuña PharmD [address] [place] [address] 07/30/2024 3:00 PM EDT Office Visit [facility] [address] [place] [address] Demario Bocanegra documented as of this encounter [...] documented as of this encounter Care Teams Aircraft Sales Representative Relationship Specialty Start Date End Date Cinthya Ray MD [address] [place] [address] PCP - General Family Medicine 10/23/11 Mayito Acuña, PharmD [address] [place] [address] Pharmacist Internal Medicine 03/07/23 documented as of this encounter
--- OUTSIDE RECORDS SUMMARY | 2024-04-22 18:12 | XMS_ITS | Encounter Summary ---
Author Organization [employer] [facility] Address [address] [place] [address] 7 [place] [address] Care Team Providers Care Polymerization Supervisor Name Role Phone Cinthya Ray MD Primary Care Provider [phone] Mayito Acuña PharmD Unavailable [phone] Reason for Visit * Reason Onset Date Comments Results 12/09/2022 Encounter Details Date Type Department Care Team ([facility] st Contact Info) Description 12/09/2022 Telephone [facility] [address] [place], [place] [phone] Cinthya Ray MD 230 [place] [address] Results Social History Tobacco Use Types Packs/Day [...] to US results. Please contact pt at [phone] documented in this encounter Plan of Treatment Upcoming Encounters Date Type Department Care Team (Late st Contact Info) Description 04/23/2024 3:30 PM EDT Telemedicine [facility] [address] [place] [address] Mayito Acuña, Citlali [address] [place] [address] 07/30/2024 3:00 PM EDT Office Visit [facility] [address] [place] [address] Demario Bocanegra documented as of this encounter Visit Diagnoses Not on filedocumented in this encounter Care Teams Polymerization Supervisor Relationship Specialty Start Date End Date Cinthya Ray MD [address] [place] [address] PCP - General Family Medicine 10/23/11 Mayito Acuña, PharmD [address] [place] [address] Pharmacist Internal Medicine 03/07/23 documented as of this encounter
--- OUTSIDE RECORDS SUMMARY | 2024-04-22 18:12 | XMS_ITS | Encounter Summary ---
Author Organization [employer] Address 75 [facility] 7t [place] [address] Care Team Providers Care Locomotive Firer Name Role Phone Cinthya Ray MD Primary Care Provider [phone] Mayito Acuña PharmD Unavailable [phone] Encounter Details Date Type Department Care Team ([facility] st Contact Info) Description 08/05/2023 Orders Only [facility] [address] [place], [place] [phone] Izzy Olvera FNP 230 [place] [address] Social History Tobacco Use Types Packs/Day Years [...] Info) Description 04/23/2024 3:30 PM EDT Telemedicine [facility] 230 [place] [address] Mayito Acuña PharmD 230 [place] [address] 07/30/2024 3:00 PM EDT Office Visit [facility] [address] [place] [address] Demario Bocanegra documented as of this encounter [...] documented as of this encounter Care Teams Locomotive Firer Relationship Specialty Start Date End Date Cinthya Ray MD [address] [place] [address] PCP - General Family Medicine 10/23/11 Mayito Acuña PharmD [address] [place] [address] Pharmacist Internal Medicine 03/07/23 documented as of this encounter
--- OUTSIDE RECORDS SUMMARY | 2024-04-22 18:12 | XMS_ITS | Encounter Summary ---
Author Organization [employer] Address 75 [facility] 7 [place] [address] Care Team Providers Care Diamond Wheel Edger Name Role Phone Cinthya Ray MD Primary Care Provider [phone] Mayito Acuña PharmD Unavailable [phone] Encounter Details Date Type Department Care Team ([facility] st Contact Info) Description 09/15/2023 Orders Only [facility] 230 [place], [place] [phone] Cinthya Ray MD 230 [place], [place] [phone] Type 2 diabetes mellitus with hyperglycemia, without long-term current use of insulin ([facility]) Social History Tobacco Use Types [...] EDT Telemedicine [facility] 230 [place] [address] Mayito Acuña PharmD [address] [place] [address] 07/30/2024 3:00 PM EDT Office Visit [facility] [address] [place] [address] Demario Bocanegra documented as of this encounter [...] long-term current use of insulin ([facility]) documented in this encounter Additional Health Concerns Assessment Noted Time PHQ-9 Depression Total Score: 0 09/10/19 24 9:01 AM EDT documented as of this encounter Care Teams Diamond Wheel Edger Relationship Specialty Start Date End Date Cinthya Ray MD [address] [place] [address] PCP - General Family Medicine 10/23/11 Mayito Acuña, DyanD [address] [place] [address] Pharmacist Internal Medicine 03/07/23 documented as of this encounter
--- OUTSIDE RECORDS SUMMARY | 2024-04-22 18:12 | XMS_ITS | Encounter Summary ---
Author Organization [employer] Address [address] [facility] [address] 7t [place] [address] Care Team Providers Care County Adviser Name Role Phone Cinthya Ray MD Primary Care Provider [phone] Mayito Acuña PharmD Unavailable [phone] Encounter Details Date Type Department Care Team (Late st Contact Info) Description 04/13/2024 Telephone [facility] 230 [place], [place] [phone] Lexis Spann MD [address] [place] [address] Social History Tobacco Use Types Packs/Day Years [...] message left for pt toreturn call to [facility]. Pt to F/U as needed. ----- [...] Upcoming Encounters Date Type Department Care Team ([facility] st Contact Info) Description 04/23/2024 3:30 PM EDT Telemedicine [facility] [address] [place] [address] [place] [address] Mayito Acuña, DyanD [address] [place] [address] 07/30/2024 3:00 PM EDT Office Visit [facility] [address] [place] [address] Demario Bocanegra documented as of this encounter [...] as of this encounter Care Teams County Adviser Relationship Specialty Start Date End Date Cinthya Rya MD [address] [place] [address] PCP - General Family Medicine 10/23/11 Mayito Acuña, Citlali [address] [place] [address] Pharmacist Internal Medicine 03/07/23 documented as of this encounter
--- OUTSIDE RECORDS SUMMARY | 2024-04-22 18:12 | XMS_ITS | Encounter Summary ---
Author Organization [employer] Address 75 [facility] 7 [place] [address] Care Team Providers Care Conveyor Belt Installer Name Role Phone Cinthya Ray MD Primary Care Provider [phone] Mayito Acuña PharmD Unavailable [phone] Encounter Details Date Type Department Care Team ([facility] st Contact Info) Description 06/30/2023 Orders Only [facility] [address] [place], [place] [phone] Mayito Acuña, PharmD [address] [place], [place] [phone] Type 2 diabetes mellitus with hyperglycemia, with long-term current use of insulin ([facility]) (Primary Dx) Social History Tobacco Use Types [...] Info) Description 04/23/2024 3:30 PM EDT Telemedicine [facility] [address] [place] [address] Mayito Acuña PharmD [address] [place] [address] 07/30/2024 3:00 PM EDT Office Visit [facility]ULT [facility] [address] [place] [address] Demario Bocanegra documented as of this encounter [...] hyperglycemia, with long-term current use of insulin ([facility]) documented in this encounter Results * Hematoxylin and Eosin Stain (06/30/2023 12:47 PM EDT) 06/30/2023 12:4 7 PM EDT 06/30/2023 1:27 PM EDT [facility] - 07/02/2023 9:30 AM EDT ----- ------- Name: Sonali Gill ?Age/Sex: 33/F ? : 1990 Unit#: [id number] ?? Attend Dr: Jose Figueroa MD ?Re06/30/23 ?Status: DEP SDC ? Location: HO.SSS ?Disch: ? ----- ------- SPEC : [id number] ? RECD: 06/30/23-7 ? STATUS: ??SOUT ? REQ NUM: [id number] ? MELANIA: 06/30/23-1247 ? SUBM DR: Jose [...] Gill ?Age/Sex: 33/F ? : 1990 Unit#: [id number] ?? Attend Dr: Jose Figueroa MD ?Re06/30/23 ?Status: DEP SDC ? Location: HO.SSS ?Disch: ? ----- ------- SPEC : [id number] ? RECD: 06/30/23 ? STATUS: ??SOUT ? REQ NUM: [id number] ? MELANIA: 06/30/23-1246 ? SUBM DR: Jose [...] To: ?? Jose Figueroa MD ?? [address] ?? [place] [address] ?? [phone] ?? Cinthya Ray MD ?? [address] [facility] ?? [place] [address] ?? ----- ------- Signed (signature on file) Esa Aguiar MD 07/02/23 0930 ? ----- ------- ? END OF REPORT ? us Generic External Data Provider LAB BLOOD ORDERAB LES Final Result [facility] [address] [place] [address] [phone] documented in this encounter Visit Diagnoses Diagnosis Type 2 diabetes mellitus with hyperglycemia, with long-term current use of insulin ([facility])- Primary documented in this encounter Additional Health Concerns Assessment Noted Time PHQ-9 Depression Total Score: 0 06/10/19 24 2:55 PM EDT documented as of this encounter Care Teams Conveyor Belt Installer Relationship Specialty Start Date End Date Cinthya Ray MD 230 [place] [address] PCP - General Family Medicine 10/23/11 Mayito Acuña, Citlali [address] [place] [address] Pharmacist Internal Medicine 03/07/23 documented as of this encounter
--- OUTSIDE RECORDS SUMMARY | 2024-04-22 18:12 | XMS_ITS | Encounter Summary ---
Author Organization [employer] [facility] Address [address] [place] [address] 7 [place] [address] Care Team Providers Care Tunnel Miner Name Role Phone Cinthya Ray MD Primary Care Provider [phone] Mayito Acuña PharmD Unavailable [phone] Encounter Details Date Type Department Care Team (Late Contact Info) Description 06/13/2022 Orders Only [facility] [address] [place] [address] Jerrica Girard FNP Social History Tobacco [...] EDT Telemedicine [facility] [address] [place] [address] Mayito Acuña, PharmD [address] [place] [address] 07/30/2024 3:00 PM EDT Office Visit [facility] [address] [place] [address] Demario Bocanegra documented as of this encounter Visit Diagnoses Not on filedocumented in this encounter Care Teams Tunnel Miner Relationship Specialty Start Date End Date Cinthya Ray MD [address] [place] [address] PCP - General Family Medicine 10/23/11 Mayito Acuña, PharmD [address] [place] [address] Pharmacist Internal Medicine 03/07/23 documented as of this encounter
--- OUTSIDE RECORDS SUMMARY | 2024-04-22 18:12 | XMS_ITS | Encounter Summary ---
Author Organization [employer] Address [address] [facility] [address] [place] [address] Care Team Providers Care Supervisor Safety Deposit Name Role Phone Cinthya Ray MD Primary Care Provider [phone] Mayito Acuña PharmD Unavailable [phone] Encounter Details Date Type Department Care Team (Late st Contact Info) Description 04/15/2024 Orders Only [facility] External Provider, [facility] Social History Tobacco Use Types Packs/Day [...] EDT Telemedicine [facility] MEDICINE [address] [place] [address] Mayito Acuña PharmD [address] [place] [address] 07/30/2024 3:00 PM EDT Office Visit [facility]ULT [facility] [address] [place], [place] [phone] Demario Bocanegra documented as of this encounter Goals Goal Patient Goal Type Associated Problems Recent Progress Patient-Stated? Author Blood Pressure < 140/90 Blood Pressure 120/70(2024 5:10 PM EST) No Mayito Acuña, Citlali Hemoglobin A1c < 7 Result Component 6.1( 10:46 AM EST) No Mayito Acuña PharmD documented as of this encounter Procedures Procedure Name Priority Date/Time Associated Diagnosis Comments FL UPPER GI W AIR Routine 04/15/2024 8:0 0 AM EST documented in this encounter Results * FL upper GI w air (04/15/2024 8:00 AM EST) Anatomical Region Laterality Modality Body Radiographic Viky ging 04/15/2024 8:00 AM EST Narrative 04/19/2024 1:33 PM EDT ? [facility] ?[address] ?[place] [address] ? Fluoroscopy Report ? Signed ? Patient: Sonali Gill ?MR#: ?? [id number] ? : 1990 ?Acct:[id number] ? Age/Sex: 34 / F ?ADM Date: 04/15/24 ? Loc: HO.XRAY ? Attending Dr: Nate Mijares MD ? Ordering Physician: Nate Mijares MD ?? Date of Service: 04/15/24 ?? Procedure(s): FL upper GI w air ?? Accession Number(s): [id number] ? cc: Nate Mijares MD; Cinthya Ray MD ? EXAMINATION: ?? XR FLUOROSCOPY UPPER GI WITH AIR ? CLINICAL INFORMATION: ?? Preoperative evaluation prior to bariatric surgery ? COMPARISON: ?? None ? TECHNIQUE: ?? Fluoroscopic air contrast upper GI examination was performed utilizing ?? standard techniques with thin and thick barium and effervescent ?? granules. Numerous spot images were obtained. ? FINDINGS: ?? Dual and single contrast images of the esophagus demonstrate normal ?? caliber, contour, and mucosal pattern. No evidence of stricture, mass, ?? or ulcerations identified. Esophageal peristalsis was normal. ? No evidence of hiatus hernia identified. Mild gastroesophageal reflux ?? is seen in the midesophagus. ? Dual contrast and single contrast images of the stomach demonstrated ?? normal contour and mucosal pattern without evidence of mass, ?? ulceration, or other abnormality. Contrast freely passed into the ?? gastric antrum and duodenal bulb without delay. ? Single and air-contrast images of the duodenal bulb demonstrate no ?? abnormality. The duodenal sweep has a normal appearance, course, and ?? mucosal fold appearance. The imaged proximal jejunum has a normal fold ?? pattern and caliber. ? FLUOROSCOPY TIME: ?? 3 minutes 17 seconds ? Number of Spot Images: 11 ?? Number of Cine: 14 ? DOSE AREA PRODUCT: ?? 2872 uGy-m2 (microgray-meter squared) ? FL/FL upper GI w air ?? IMPRESSION: ?? 1. Mild gastroesophageal reflux, otherwise, unremarkable upper GI ?? series. ? This procedure was performed by Umberto Hansen PA-C, and supervised by ?? Dr. Ornelas ? Electronically signed by: ??Jeremi Ornelas MD ??04/19/2024 01:30 PM EDT RP ? Dictated By: ?Umberto Hansen ? Signed By: ?<Electronically signed by Umberto Hansen in OV> ? 04/19/24 1330 ?<Electronically signed by Jeremi Ornelas MD in OV> ? 04/19/24 1332 ? DD/ 0800 ? TD/TT: 04/15/24 0820 ? Weather Algorithm Scientist: ? Procedure Note [place], Image - 04/19/[address] [address] Fluoroscopy Report Signed Patient: Jeremy Gill#: [id number] : 1990Acct:[id number] Age/Sex: 34 / FADM Date: 04/15/24 Loc: [facility]RAY Attending Dr: Nate Mijares MD Ordering Physician: Nate Mijares MD Date of Service: 04/15/24 Procedure(s): FL upper GI w air Accession Number(s): [id number] cc: Nate Mijares MD; Cinthya Ray MD EXAMINATION: XR FLUOROSCOPY UPPER GI WITH AIR CLINICAL INFORMATION: Preoperative evaluation prior to bariatric surgery COMPARISON: None TECHNIQUE: Fluoroscopic air contrast upper GI examination was performed utilizing standard techniques with thin and thick barium and effervescent granules. Numerous spot images were obtained. FINDINGS: Dual and single contrast images of the esophagus demonstrate normal caliber, contour, and mucosal pattern. No evidence of stricture, mass, or ulcerations identified. Esophageal peristalsis was normal. No evidence of hiatus hernia identified. Mild gastroesophageal reflux is seen in the midesophagus. Dual contrast and single contrast images of the stomach demonstrated normal contour and mucosal pattern without evidence of mass, ulceration, or other abnormality. Contrast freely passed into the gastric antrum and duodenal bulb without delay. Single and air-contrast images of the duodenal bulb demonstrate no abnormality. The duodenal sweep has a normal appearance, course, and mucosal fold appearance. The imaged proximal jejunum has a normal fold pattern and caliber. FLUOROSCOPY TIME: 3 minutes 17 seconds Number of Spot Images: 11 Number of Cine: 14 DOSE AREA PRODUCT: [id number] uGy-m2 (microgray-meter squared) FL/FL upper GI w air IMPRESSION: 1. Mild gastroesophageal reflux, otherwise, unremarkable upper GI series. This procedure was performed by Umberto Hansen PA-C, and supervised by Dr. Ornelas Electronically signed by: Jeremi Ornelas MD 04/19/2024 01:30 PM EDT RP Dictated By: Umberto Hansen Signed By: <Electronically signed by Umberto Hansen in OV> 04/19/24 1330 <Electronically signed by Jeremi Ornelas MD in OV> 04/19/24 1332 DD/ 0800 TD/TT: 04/15/24 0820 Weather Algorithm Scientist: [facility] External Provider IMG FLU OROSCOPY PROCEDURES Final Result documented in this encounter Visit Diagnoses Not on filedocumented in this encounter Additional Health Concerns Assessment Noted Time PHQ-9 Depression Total Score: 11 024 9:48 AM EDT documented as of this encounter Care Teams Supervisor Safety Deposit Relationship Specialty Start Date End Date Cinthya Ray MD [address] [place] [address] PCP - General Family Medicine 10/23/11 Mayito Acuña, DyanD [address] [place] [address] Pharmacist Internal Medicine 03/07/23 documented as of this encounter
--- OUTSIDE RECORDS SUMMARY | 2024-04-22 18:12 | XMS_ITS | Encounter Summary ---
Author Organization [employer] Address [address] [place] [address] [address] [place] [address] Care Team Providers Care Survey Analyst Name Role Phone Cinthya Ray MD Primary Care Provider [phone] Mayito Acuña PharmD Unavailable [phone] Reason for Visit * Reason Onset Date Comments Appointment Request 09/02/2022 Encounter Details Date Type Department Care Team ([facility] st Contact Info) Description 09/02/2022 Telephone C [facility] [address] [place], [place] [phone] Cinthya Ray MD [address] [place] [address] Appointment Request Social History Tobacco Use Types [...] her kidney failure.' Please contact pt at [phone] documented in this encounter Plan of Treatment Upcoming Encounters Date Type Department Care Team (Late st Contact Info) Description 04/23/2024 3:30 PM EDT Telemedicine [facility] MEDICINE [address] [place] [address] Mayito Acuña, PharmD [address] [place] [phone] 07/30/2024 3:00 PM EDT Office Visit [facility] ADULT DENTAL [address] [place] [address] Demario Bocanegra documented as of this encounter Visit Diagnoses Not on filedocumented in this encounter Care Teams Survey Analyst Relationship Specialty Start Date End Date Cinthya Ray MD [address] [place] [phone] PCP - General Family Medicine 10/23/11 Mayito Acuña, PharmD [address] [place] [phone] Pharmacist Internal Medicine 03/07/23 documented as of this encounter
--- OUTSIDE RECORDS SUMMARY | 2024-04-22 18:12 | XMS_ITS | Encounter Summary ---
Author Organization [email or web address] Address [address] [place] [address] 7 [place] [address] Care Team Providers Care Director Child Name Role Phone Cinthya Ray MD Primary Care Provider [phone] Mayito Acuña PharmD Unavailable [phone] Reason for Visit * Reason Onset Date Comments Med Refill 01/03/2023 Encounter Details Date Type Department Care Team (Late st Contact Info) Description 01/03/2023 Refill [facility] MED[facility]INE [address] [place], [place] [phone] Cinthya Ray MD [address] [place], [place] [phone] Social History Tobacco Use Types Packs/Day Years [...] 04/23/2024 3:30 PM EDT Telemedicine [facility] MED[facility]INE [address] [place] [address] Mayito Acuña, PharmD [address] [place] [phone] 07/30/2024 3:00 PM EDT Office Visit [facility] AD[facility] [address] [place] [address] Demario Bocanegra documented as of this encounter Visit Diagnoses Not on filedocumented in this encounter Care Teams Director Child Relationship Specialty Start Date End Date Cinthya Ray MD [address] [place] [phone] PCP - General Family Medicine 10/23/11 Mayito Acuña, PharmD [address] [place] [phone] Pharmacist Internal Medicine 03/07/23 documented as of this encounter
--- OUTSIDE RECORDS SUMMARY | 2024-04-22 18:12 | XMS_ITS | Clinical Summary ---
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 Blood Glucose Monitoring Suppl (Drive YOYO Jenks Lite) w/Device kit TEST BLOOD SUGAR EVERY DAY 06/09/19 22 Active Alcohol Swabs (Alcohol Prep) 70 % padsIndications:T ype 2 diabetes mellitus with hyperglycemia (CMS/HCC) USE FOUR TIMES DAILY AND NEEDED 100 each 11 01/08/20 23 Active TRUEplus Lancets 33G miscIndications:T ype 2 diabetes mellitus with hyperglycemia (CMS/HCC) TEST BLOOD SUGAR FOUR TIMES DAILY 100 each 11 03/10/19 24 Active fluticasone (Flonase) 50 MCG/ACT nasal sprayIndications: Left ear pain SPRAY 2 SPRAYS INTO EACH NOSTRIL IN THE MORNING SHAKE GENTLY/PRIME BEFORE 1ST USE&CLEAN TIP/REPLACE CAP 48 mL 1 05/12/19 24 Active melatonin 3 MG tablet TAKE 1 TABLET BY MOUTH 2-3 HOURS BEFORE YOUR DESIRED BEDTIME 03/17/19 24 Active Blood Pressure Monitor kit Check blood pressure once daily and as needed 1 kit 06/10/19 24 Active pantoprazole (ProtoNix) 40 MG EC tablet Take 40 mg by mouth Once per day. 06/30/19 24 Active Sodium Fluoride (PreviDent 5000 Booster Plus) 1.1 % paste Please use pea size to brush your teeth twice daily. Spit after brushing. So not rinse. 112 g 1 08/15/19 24 Active acetaminophen (Tylenol) 500 MG tabletIndications :Injury of head, initial encounter TAKE 2 TABLETS BY MOUTH EVERY 6 HOURS IF NEEDED FOR MODERATE PAIN OR FEVER UP TO 25 DOSES. 50 tablet 08/26/19 24 Active ibuprofen 600 MG tablet TAKE 1 TABLET BY MOUTH IN THE MORNING, AT NOON AND AT BEDTIME IF NEEDED FOR MILD PAIN 90 tablet 09/22/19 24 Active insulin degludec (Tresiba FlexTouch) 100 UNIT/ML injectionIndicati ons:Type 2 diabetes mellitus with hyperglycemia, without long-term current use of insulin ([facility]) INJECT 48 UNITS SUBCUTANEOUSLY ONCE EVERY DAY 45 mL 3 10/06/19 24 Active metroNIDAZOLE (Metrogel) 0.75 % vaginal gelIndications:Ba cterial Vaginosis Insert one applicator into vagina at bedtime for 7 nights 45 g 11/11/19 24 Active Continuous Glucose Sensor (ScannxStyle Audrey 2 Sensor) miscIndications:T ype 2 diabetes mellitus with hyperglycemia, without long-term current use of insulin ([facility]) Apply 1 sensor every 14 days 2 each 11 11/19/19 24 Active SUMAtriptan (Imitrex) 25 MG tabletIndications :Injury of head, initial encounter TAKE 1 TAB ORALLY AFTER MIGRAINE ONSET MAY REPEAT AFTER 2HRS IF HEADACHE RETURNS,MAX 200MG IN 24HRS 9 tablet 11/19/19 24 Active Continuous Glucose Dining Room Host/Hostess (FreeStyle Audrey 2 [place]) deviceIndications :Type 2 diabetes mellitus with hyperglycemia, without long-term current use of insulin ([facility]) SCAN sensory EVERY 8 HOURS 1 each 11/21/19 24 Active Glucose 2 g chewable tabletIndications :Type 2 diabetes mellitus with hyperglycemia, with long-term current use of insulin ([facility]) Chew 2 g Once per day. To use as needed if FS < 70 mg /dl or if having an episode of dizziness. 10 tablet 1 12/29/19 24 Active Multiple Vitamin (multivitamin) tablet Take 1 tablet by mouth Once per day. 90 tablet 3 01/31/20 24 Active cholecalciferol (Vitamin D-3) 25 MCG (1000 UT) tablet Take 1 tablet (25 mcg) by mouth Once per day. 90 tablet 3 01/31/20 24 Active Mounjaro 7.5 MG/0.5ML solution auto-injectorIndi cations:Type 2 diabetes mellitus with hyperglycemia, with long-term current use of insulin ([facility]) INJECT ONE PEN (=7.5MG) SUBCUTANEOUSLY ONCE A WEEK DIRECTED 2 mL 5 02/16/19 Active metFORMIN XR (Glucophage-XR) 500 MG 24 hr tablet TAKE 2 TABLETS BY MOUTH TWICE DAILY WITH BREAKFAST AND WITH DINNER. DO NOT BREAK, CRUSH, 360 tablet 1 03/23/19 Active insulin pen needle (BD Pen Needle Rowena 2nd Gen) 32G x 4 mm misc USE WITH INSULIN ONCE A DAY 100 each 11 03/23/19 Active sucralfate (Carafate) 1 GM/10ML suspension Take 10 mL (1 g) by mouth 4 times daily. 1200 mL 3 04/15/19 24 025 fluconazole (Diflucan) 150 MG tablet Take 1 tablet (150 mg) by mouth 1 (one) time for 1 dose. 1 tablet 04/06/19 25 025 phenazopyridine (Pyridium) 200 MG tablet Take 1 tablet (200 mg) by mouth if needed in the morning, at noon, and at bedtime for bladder spasms (dysuria) for up to 3 days. 10 tablet 04/06/19 25 025 metroNIDAZOLE (Flagyl) 500 MG tablet Take 1 tablet (500 mg) by mouth 2 times daily for 7 days. 14 tablet 04/07/19 25 025 Active Problems Problem Noted Date Diagnosed Date [...] both her parents. She had services with [facility] [facility] for psychiatry and individual therapy, but lost [...] Plan (11/30/2023 1:26 PM EDT): -Following with [facility], last seen on -06/30/23 EGD Sen esophagus with mild chronic active inflammation, stomach mild chronic inactive inflammation, normal duodenum. -Repeat EGD in 2 years -Continue pantoprazole Assessment & Plan (09/09/2023 6:00 AM EDT): -Following with [facility], last seen on -06/30/23 EGD Sen [...] considering a bariatric surgery and went to [facility] wt management clinic. She restarted going to [facility] Wt management clinic. - She had worked with our diabetes education nurse, Ene Arias from Nov to Dec 2021. - Currently showing good attendance to [facility]; appreciated her effort - Eye exam: 01/24/23 [facility]. No diabetic retinopathy - Comprehensive [...] considering a bariatric surgery and went to [facility] wt management clinic - She had worked with our diabetes education nurse, Ene Arias from Nov to Dec 2021. - Currently showing good attendance to [facility]; appreciated her effort - Eye exam: 01/24/23 [facility]. No diabetic retinopathy - Comprehensive Foot [...] considering a bariatric surgery and went to [facility] wt management clinic - She had worked with our diabetes education nurse, Ene Arias from Nov to Dec 2021. - Currently showing good attendance to [facility]; appreciated her effort - Eye exam: 01/24/23 [facility]. No diabetic retinopathy - Comprehensive [...] considering a bariatric surgery and went to [facility] wt management clinic - She had worked with our diabetes education nurse, Ene Arias from Nov to Dec 2021. - Currently showing good attendance to [facility]; appreciated her effort - Eye exam: 01/24/23 [facility]. No diabetic retinopathy - Comprehensive [...] considering a bariatric surgery and went to [facility] wt management clinic - She had worked with our diabetes education nurse, Ene Arias from Nov to Dec 2021. - Currently showing good attendance to [facility]; appreciated her effort - Eye exam: 01/24/23 [facility]. No diabetic retinopathy - Comprehensive [...] considering a bariatric surgery and went to [facility] wt management clinic - She had worked with our diabetes education nurse, Ene Arias from Nov to Dec 2021. - Refer to [facility] - Eye exam: 01/24/23 [facility]. No diabetic retinopathy - Comprehensive [...] considering a bariatric surgery and went to [facility] wt management clinic - She had worked with our diabetes education nurse, Ene Arias from Nov to Dec 2021. - Eye exam: 01/21/22 [facility]. No diabetic retinopathy - Comprehensive [...] considering a bariatric surgery and went to [facility] wt management clinic - She had worked with our diabetes education nurse, Ene Arias from Nov to Dec 2021. - Eye exam: 01/21/22 [facility]. No diabetic retinopathy - Comprehensive [...] considering a bariatric surgery and went to [facility] wt management clinic - She had worked with our diabetes education nurse, Ene Arias from Nov to Dec 2021. - Eye exam: 01/21/22 [facility]. No diabetic retinopathy - Comprehensive [...] considering a bariatric surgery and went to [facility] wt management clinic - She had worked with our diabetes education nurse, Ene Arias from Nov to Dec 2021. - Eye exam: 01/21/22 [facility]. No diabetic retinopathy - Comprehensive [...] considering a bariatric surgery and went to [facility] management clinic - She had worked with our diabetes education nurse, Ene Arias from Nov to Dec 2021. - Eye exam: 01/21/22 [facility]. No diabetic retinopathy - Comprehensive [...] considering a bariatric surgery and went to [facility] wt management clinic - She had worked with our diabetes education nurse, Ene Arias from Nov to Dec 2021. - Eye exam: 01/21/22 [facility]. No diabetic retinopathy - Comprehensive [...] 2021. - completed Partial Hospitalization Program at [facility] 11/09/21 - 11/23/21 - current medication: none -Previous medication treatment Hx: venlafaxine was self-discontinued; trazodone was prescribed by psychiatrist while she was attending [facility], but pt self-discontinued due to ineffectivenss; sertraline 50 mg daily, patient self-discontinued. - previously seeing [facility]NOTE 2[facility] clinician and waiting for psychiatrist, patient has not been engaged in behavioral health therapy currently. - contacted by [facility] behavioral health service and was referred to off-site service - patient has developed healthy coping skills Assessment & Plan (11/30/2023 1:22 PM EDT): - MDD vs. bipolar - severe exacerbation of Depression w/ SI in October 2021. - completed Partial Hospitalization Program at [facility] 11/09/21 - 11/23/21 - current medication: none -Previous medication treatment Hx: venlafaxine was self-discontinued; trazodone was prescribed by psychiatrist while she was attending [facility], but pt self-discontinued due to ineffectivenss; sertraline 50 mg daily, patient self-discontinued. - previously seeing [facility]NOTE 2[facility] clinician and waiting for psychiatrist, patient has not been engaged in behavioral health therapy currently. - contacted by [facility] health service and was referred to off-site service - patient has developed healthy coping skills Assessment & Plan (03/07/2023 5:55 AM EST): - MDD vs. bipolar - severe exacerbation of Depression w/ SI in October 2021. - completed Partial Hospitalization Program at [facility] 11/09/21 - 11/23/21 - current medication: none -Previous medication treatment Hx: venlafaxine was self-discontinued; trazodone was prescribed by psychiatrist while she was attending [facility], but pt self-discontinued due to ineffectivenss; sertraline 50 mg daily, patient self-discontinued. - previously seeing [facility] clinician and waiting for psychiatrist, patient has not been engaged in behavioral health therapy currently. - will consider referring back Assessment & Plan (11/12/2022 4:17 PM EDT): - severe exacerbation of Depression w/ SI in October 2021. - completed Partial Hospitalization Program at [facility] 11/09/21 - 11/23/21 - Medication: Sertraline 50 mg daily -Previous medication treatment Hx: venlafaxine was self-discontinued; trazodone was prescribed by psychiatrist while she was attending [facility], but pt self-discontinued due to ineffectivenss - still on waiting list for outpatient appt with psychiatrist and therapist. - Able to contract her safety today - Continue BHS with [facility] Assessment & Plan (08/30/2022 12:43 PM EDT): - severe exacerbation of Depression w/ SI in October 2021. - completed Partial Hospitalization Program at [facility] 11/09/21 - 11/23/21 - Medication: Sertraline 50 mg daily -Previous medication treatment Hx: venlafaxine was self-discontinued; trazodone was prescribed by psychiatrist while she was attending [facility], but pt self-discontinued due to ineffectivenss - still on waiting list for outpatient appt with psychiatrist and therapist. - Able to contract her safety today - Continue BHS with [facility] Assessment & Plan (06/24/2022 11:25 AM EDT): - severe exacerbation of Depression w/ SI in October 2021. - completed Partial Hospitalization Program at [facility] 11/09/21 - 11/23/21 - Medication treatment Hx --venlafaxine was self-discontinued --trazodone was prescribed by psychiatrist while she was attending [facility], but pt self-discontinued due to ineffectivenss - still on waiting list for outpatient appt with psychiatrist and therapist. - Able to contract her safety today - Continue BHS with [facility] Assessment & Plan (05/21/2022 12:36 PM EDT): - severe exacerbation of Depression w/ SI in October 2021. - completed Partial Hospitalization Program at [facility] 11/09/21 - 11/23/21 - Medication treatment Hx --venlafaxine was self-discontinued --trazodone was prescribed by psychiatrist while she was attending [facility], but pt self-discontinued due to ineffectivenss - still on waiting list for outpatient appt with psychiatrist and therapist. - Able to contract her safety today - Continue S with [facility] Assessment & Plan (04/04/2022 7:17 PM EST): - severe exacerbation of Depression w/ SI in October 2021. - completed Partial Hospitalization Program at [facility] 11/09/21 - 11/23/21 - Medication treatment Hx --venlafaxine was self-discontinued --trazodone was prescribed by psychiatrist while she was attending [facility], but pt self-discontinued due to ineffectivenss - still on waiting list for outpatient appt with psychiatrist and therapist. - Able to contract her safety today - Continue S with [facility] Assessment & Plan (02/22/2022 4:28 PM EST): - severe exacerbation of Depression w/ SI in October 2021. - completed Partial Hospitalization Program at [facility] 11/09/21 - 11/23/21 - Medication treatment Hx --venlafaxine was self-discontinued --trazodone was prescribed by psychiatrist while she was attending [facility], but pt self-discontinued due to [...] - previously participated weight management program at [facility], recently started seeing them again. - goal of [place] being 171 lbs to get surgery done. - continue working on lifestyle modifications - associated comorbidity: STELLA, DM2 Assessment & Plan (11/26/2023 2:16 PM EDT): - previously participated weight management program at [facility] - continue working on lifestyle modifications - associated comorbidity: STELLA, DM2 Assessment & Plan (11/18/2022 7:07 AM EDT): - previously participated weight management program at [facility] - continue working on lifestyle modifications - associated comorbidity: STELLA, DM2 Assessment & Plan (04/04/2022 7:14 PM EST): - previously participated weight management program at [facility] - continue working on lifestyle modifications - associated comorbidity: STELLA, DM2 Assessment & Plan (02/22/2022 4:37 PM EST): - previously participated weight management program at [facility] - continue working on lifestyle modifications - [...] Encounters Date Type Department Care Team Description 04/22/2024 Travel 04/19/2024 Orders Only [address] [address] Cinthya Ray MD Type 2 diabetes mellitus with hyperglycemia, with long-term current use of insulin ([facility]) (Primary Dx) 04/15/2024 Orders Only [facility] External Provider, [facility] 04/13/2024 Telephone [facility] [address] [place] [phone] Lexis Spann MD 04/07/[address] [address] Lexis Spann MD 04/07/2024 Orders Only [address] [address] Lexis Spann MD 04/06/2024 5:00 PM EST Office Visit [facility] [address] [address] Lexis Spann MD Lower urinary tract symptoms (LUTS) (Primary Dx); Vaginal discharge 04/06/2024 Orders Only [address] [address] Lexis Spann MD 04/01/[address] [address] Rianna Solis RNpreschool teacher assistant 03/23/[address] [address] Cinthya Ray MD Nurse Triage 03/23/[address] [place] [address] Cinthya Ray MD 03/12/2024 Orders Only [facility] External Provider, [facility] 03/12/2024 Refill [facility] [address] [place] [address] Cinthya Ray MD Type 2 diabetes mellitus with hyperglycemia, without long-term current use of insulin ([facility]) 03/05/2024 Orders Only [facility] [address] [place] [phone] Cinthya Ray MD Type 2 diabetes mellitus with other specified complication, with long-term current use of insulin ([facility]) (Primary Dx) 03/04/2024 Telephone [facility] [address] [place] [phone] Janey Jaramillo MA april recall 03/02/2024 10:00 AM EST Office Visit [facility] [address] [address] Sonali Tellez MD Cough in adult patient 02/26/2024 2:00 PM EST [facility] [address] [address] Sonali Tellez MD Viral upper respiratory infection (Primary Dx); Influenza 02/23/2024 Orders Only [facility] External Provider, [facility] 02/20/2024 2:00 PM EST Office Visit [facility] [address] [place] [address] Thompson Mcleod 02/16/2024 Refill [facility] [address] [place] [address] Mayito Acuña, DyanD Type 2 diabetes mellitus with hyperglycemia, with long-term current use of insulin ([facility]) 02/13/2024 Travel 02/10/[address] [address] Cinthya Ray MD Referral 02/05/2024 Orders Only [facility] [address] [place] [phone] Cinthya Ray MD Chronic left shoulder pain (Primary Dx) 01/31/2024 Orders Only [facility] [address] [place] [address] Cinthya Ray MD Vitamin D deficiency (Primary Dx) 01/30/2024 8:00 AM EST Office Visit [facility] [address] [facility] [place] [address] Demario Bocanegra Dental calculus (Primary Dx) 01/28/2024 Telephone [facility] [address] [place] [address] Cinthya Ray MD 01/27/2024 3:00 PM EST Office Visit [facility] [address] [place] [address] Cinthya Ray MD Type 2 diabetes mellitus with hyperglycemia, with long-term current use of insulin ([facility]) (Primary Dx); Chronic left shoulder [...] DEPARTMENT Provider, Generic External Data 01/25/2024 Travel from Last 3 Months Immunizations Name [facility] [address] [place] [address] Mayito Acuña, PharmD [address] [place] [address] 07/30/2024 3:00 PM EDT Office Visit [facility] [address] [place] [address] Demario Bocanegra Health Maintenance Due Date Last Done Comments Family Planning (PISQ) 02/26/2007 Dental Oral Exam 02/08/2023 08/08/2022 COVID-19 Vaccine (4 - 2024-25 season) 2023 02/22/2021, 07/01/2020, 06/03/2020 Influenza Vaccine [...] Additional history exists Lipid Panel 11/25/2024 11/26/2023, 08/03/2023, 06/11/2023, Additional history exists Eye Exam 01/24/2025 [...] AIR Routine 04/15/2024 8:0 0 AM EST POCT URINALYSIS DIPSTICK Routine 04/06/2024 5:13 PM [...] ESTABLISHED PATIENT Routine 08/08/2022 4:00 PM EDT [employer] IMAGING SYSTEM PAP Routine 07/24/2021 4:01 PM EDT from Last 3 Months or Most Recently Relevant to Health Maintenance Results * FL upper GI w air (04/15/2024 8:00 AM EST) Anatomical Region Laterality Modality Body Radiographic Viky ging 04/15/2024 8:00 AM EST Narrative 04/19/2024 1:33 PM EDT ? [facility] ?[address] ?[place] [address] ? Fluoroscopy Report ? Signed ? Patient: Sonali Gill ?MR#: ?? [id number] ? : 1990 ?Acct:[id number] ? Age/Sex: 34 / F ?ADM Date: 04/15/24 ? Loc: HO.XRAY ? Attending Dr: Nate Mijares MD ? Ordering Physician: Nate Mijares MD ?? Date of Service: 04/15/24 ?? Procedure(s): FL upper GI w air ?? Accession Number(s): [id number] ? cc: Nate Mijares MD; Cinthya Ray [...] DD/ 0800 ? TD/TT: 04/15/24 0820 ? Motorcycle Tester: ? Procedure Note iWn, Image - 04/19/2024 [place] [address] Fluoroscopy Report Signed Patient: Jeremy Gill#: [id number] : 1990Acct:[id number] Age/Sex: 34 / FADM Date: 04/15/24 Loc: [facility] Attending Dr: Nate Mijares MD Ordering Physician: Nate Mijares MD Date of Service: 04/15/24 Procedure(s): FL upper GI w air Accession Number(s): [id number] cc: Nate Mijares MD; Cinthya Ray MD [...] 04/19/24 1332 DD/ 0800 TD/TT: 04/15/24 0820 Motorcycle Tester: [facility] External Provider IMG FLU OROSCOPY PROCEDURES Final Result * POCT urinalysis dipstick manually resulted (04/06/2024 [...] (ABNORMAL) Bacterial Vaginosis (04/06/2024 5:04 PM EST) [facility] TRICHOMONAS VAGINALIS DETECTION BY PCR NOT DETECTED Not Detect [facility] BACTERIAL VAGINOSIS DETECTION BY PCR POSITIVE(A) Negative [facility] Comment:The BV organism targ ets [...] DETECTION BY PCR NOT DETECTED Not Detect [facility] Deyanira glab krusei PCR NOT DETECTED Not Detect [facility] 04/06/2024 5:04 PM EST 04/07/2024 11:23 AM EST Lexis Spann MD LAB MICROBIOLOGY - GENER AL ORDERABLES Final Result [facility] [address] [place] [phone] * Chlamydia/N. Gonorrhoeae RNA, TMA, Urogenitial (04/06/2024 5:04 PM EST) [facility] CT PCR NOT DETECTED Not Detect. [facility] Comment:A not detected test result [...] psychologicalconsequences. NG PCR NOT DETECTED Not Detect. [facility] Comment:A not detected test result [...] 5:04 PM EST 04/07/2024 11:15 AM EST [facility] - 04/07/2024 1:26 PM EST Vaginal us Lexis Spann MD LAB MICROBIOLOGY - GENER AL ORDERABLES Final Result [facility] [address] [place] [phone] * Culture, Urine, Routine (04/06/2024 12:00 AM EST) Urine Urine specimen obtained by clean catch procedure / Unknown 04/06/2024 04/06/2024 Comment:[facility] - 04/10/2024 7:29 AM EST Escherichia coli Quant 10,000 to 50,000 cfu/mL Escherichia coli: Ampicillin 4(S) Escherichia coli: Cefazolin (Urine) <=1(S) Escherichia coli: Cefepime <=0.12(S) Escherichia coli: Ceftriaxone <=0.25(S) Escherichia coli: Ciprofloxacin <=0.06(S) Escherichia coli: Gentamicin <=1(S) Escherichia coli: Nitrofurantoin <=16(S) Escherichia coli: Trimethoprim/Sulfamethoxazole <=20(S) Specimen Source: Urine clean catch us Lexis Spann MD LAB MICROBIOLOGY - GENER AL ORDERABLES Final Result [facility] [address] [facility] [place] [address] [phone] * MR Shoulder w/o Contrast Left (03/12/2024 7:15 PM EST) Anatomical Region Laterality Modality Upper Extremities, Shoulder Left Magn etic Resonance 03/12/2024 7:15 PM EST Narrative 03/15/2024 10:07 AM EST ? [facility] ?[address] ?[place] [address] ? Magnetic Resonance Report ? Signed ? Patient: Sonali Gill ?MR#: ?? [id number] ? : 1990 ?Acct:[id number] ? Age/Sex: 34 / F ?ADM Date: 03/12/24 ? Loc: HO.MRI ? Attending Dr: Al Hays MD ? Ordering Physician: Al Hays MD ?? Date of Service: 03/12/24 ?? Procedure(s): MR shoulder LT wo con ?? Accession Number(s): [id number] ? cc: Al Hays MD; Cinthya Ray [...] ?03/15/24 1004 ? DD/ 1915 ? TD/TT: 03/12/24 1940 ? Motorcycle Tester: ? Procedure Note Donotuseinterpreter, Image - 03/15/2024 [place] [address] Magnetic Resonance Report Signed Patient: Jeremy Gill#: [id number] : 1990Acct:[id number] Age/Sex: 34 / FADM Date: 03/12/24 Loc: HO.MRI Attending Dr: Al Hays MD Ordering Physician: Al Hays MD Date of Service: 03/12/24 Procedure(s): MR shoulder LT wo con Accession Number(s): [id number] cc: Al Hays MD; Cinthya Ray MD [...] OV> 03/15/24 1004 DD/ 14 TD/TT: 03/12/241939 Motorcycle Tester: [facility] External Provider IMG MRI PROCEDURES Final Result * POCT Rapid Influenza B SEBASTIAN ID NOW (03/02/2024 10:18 AM EST) Only the most recent of2 resultswithin the time period is included. Influenza B Negative Negative, Indeterminate [facility] Swab 03/02/2024 10:1 8 AM EST Sonali Tellez MD POINT OF CARE TEST ENTER/E DIT ORDERABLES Final Result Performing Organization Address [facility] Co de Phone Number [facility] [address] [place] [phone] * POCT Rapid Influenza A SEBASTIAN ID NOW (03/02/2024 10:18 AM EST) Only the most recent of2 resultswithin the time period is included. Influenza A Negative Negative, Indeterminate [facility] Swab 03/02/2024 10:1 8 AM EST Sonali Tellez MD POINT OF CARE TEST ENTER/E DIT ORDERABLES Final Result Performing Organization Address [facility] Co de Phone Number [facility] [address] [place] [phone] * POCT Rapid Covid-19 BinaxNOW (03/02/2024 10:18 AM EST) Only the most recent of2 resultswithin the time period is included. [facility] Rapid COVID Ag Negative Swab 03/02/2024 10:1 8 AM EST Sonali Tellez MD POINT OF CARE TEST ENTER/E DIT ORDERABLES Final Result * POCT rapid strep A manually resulted (03/02/2024 10:18 AM EST) [facility] Rapid Strep A Screen Negative Negative, None Detected Swab 03/02/2024 10:1 8 AM EST us Sonali Tellez MD POINT OF CARE TEST ENTER/E DIT ORDERABLES Final Result * POCT Rapid Strep A SEBASTIAN ID NOW (02/26/2024 2:42 PM EST) [facility] Rapid Strep A Screen Negative Negative, None Detected Swab 02/26/2024 2:42 PM EST us Sonali Tellez MD POINT OF CARE TEST ENTER/E DIT ORDERABLES Final Result * US Abdomen Comp w elastography (02/23/2024 8:41 AM EST) Anatomical Region Laterality Modality Abdomen Ultrasound 02/23/2024 8:41 AM EST Narrative 02/24/2024 10:28 AM EST ? [facility] ?[address] ?[place] [address] ? Ultrasound Report ? Signed ? Patient: Sonali Gill ?MR#: ?? [id number] ? : 1990 ?Acct:[id number] ? Age/Sex: 33 / F ?ADM Date: 01/13/25 ? Loc: HO.US ? Attending Dr: Nate Mijares MD ? Ordering Physician: Nate Mijares MD ?? Date of Service: 02/23/24 ?? Procedure(s): US abdomen comp w elastography ?? Accession Number(s): [id number] ? cc: Nate Mijares MD; Cinthya Ray [...] DD/ 0841 ? TD/TT: 02/23/24 0854 ? Motorcycle Tester: ? Procedure Note Donotuseinterpreter, Image - 02/24/[address] [address] Ultrasound Report Signed Patient: Jeremy Gill#: [id number] : 1990Acct:[id number] Age/Sex: 33 FADM Date: 02/23/24 Loc: HO.US Attending Dr: Nate Mijares MD Ordering Physician: Nate Mijares MD Date of Service: 02/23/24 Procedure(s): US abdomen comp w elastography Accession Number(s): [id number] cc: Nate Mijares MD; Cinthya Ray MD [...] Anand Vera MD 02/24/2024 10:25 AM EST RP Dictated By: Anand Vera MD Signed By: <Electronically signed by Anand Vera MD in OV> 02/24/24 1025 DD/ 0841 TD/TT: 02/23/24 0854 Motorcycle Tester: [facility] External Provider IMG US PROCEDURES Final Result * XR Shoulder 2+ Views Left (01/27/2024 3:56 PM EST) Anatomical Region Laterality Modality Upper Extremities, Shoulder Left Radi ographic Imaging 01/27/2024 3:56 PM EST Narrative 01/28/2024 10:15 AM EST ?[facility] ?[address] ?[place] [address] ?XRay Report ? Signed ? Patient: Sonlai Gill ?MR#: ?? [id number] ? : 1990 ?Acct:[id number] ? Age/Sex: 33 / F ?ADM Date: 01/27/24 ? Loc: HO.HHCX ? Attending Dr: Cinthya Ray MD ? Ordering Physician: Cinthya Ray MD ?? Date of Service: 01/27/24 ?? Procedure(s): XR shoulder LT min 2V ?? Accession Number(s): [id number] ? cc: Cinthya Ray MD ? EXAMINATION: [...] DD/ 1556 ? TD/TT: 01/27/24 1600 ? Motorcycle Tester: ? Procedure Note Donotaudieinterpreter, Image - 01/28/[address] [address] XRay Report Signed Patient: Jeremy Gill#: [id number] : 1990Acct:[id number] Age/Sex: FADM Date: 01/27/24 Loc: HO.HHCX Attending Dr: Cinthya Ray MD Ordering Physician: Cinthya Ray MD Date of Service: 01/27/24 Procedure(s): XR shoulder LT min 2V Accession Number(s): [id number] cc: Cinthya Ray MD EXAMINATION: XR SHOULDER, [...] 01/28/24 1012 DD/ 1556 TD/TT: 01/27/24 1600 Motorcycle Tester: us Cinthya Ray MD IMG XR PROCEDURES Edited Result - Final * XR Chest 2 Views (01/26/2024 10:47 AM EST) Anatomical Region Laterality Modality Chest Radiographic Viky ging 01/26/2024 10:4 7 AM EST Narrative 03/10/2024 4:39 PM EST ? [facility] ?[address] ?[place], [place] [address] ?XRay Report ? Signed ? Patient: Sonali Gill ?MR#: ?? [id number] ? : 1990 ?Acct:[id number] ? Age/Sex: 33 / F ?ADM Date: 01/26/24 ? Loc: HO.XRAY ? Attending Dr: Nate Mijares MD ? Ordering Physician: Nate Mijares MD ?? Date of Service: 01/26/24 ?? Procedure(s): XR chest 2V ?? Accession Number(s): [id number] ? cc: Nate Mijares MD; Cinthya Ray [...] PM EST ?? RP ? Dictated By: ?AdalbertoEsa ? Signed By: ?<Electronically signed by Esa Glover in OV> ?03/10/24 1636 ? DD/ 1047 ? TD/TT: 01/26/24 1055 ? Motorcycle Tester: ? Procedure Note Alfie Walden - 03/10/[address] [address] XRay Report Signed Patient: Jeremy Gill#: [id number] : 1990Acct:[id number] Age/Sex: 33 / FADM Date: 01/26/24 Loc: HOMAGDALENEAY Attending Dr: Nate Mijares MD Ordering Physician: Nate Mijares MD Date of Service: 01/26/24 Procedure(s): XR chest 2V Accession Number(s): [id number] cc: Nate Mijares MD; Cinthya Ray MD [...] 03/10/24 1636 DD/ 1047 TD/TT: 01/26/24 1055 Motorcycle Tester: [facility] External Provider IMG XR PROCEDURES Edited Result - Final * (ABNORMAL) Vitamin D, 25-Hydroxy, Total, Immunoassay (01/26/2024 10:46 AM EST) Vitamin D 25-OH Total 15.9(L) >30 ng/mL [facility] Comment:Health Based Referen ce Values*< 20 ng/mL Uiuogbkcs95-89 ng/mL Insufficient> 30 ng/mL Sufficient*Jayoln BLUNT. N Engl J Med. 2007;357:266-280Care must [...] ORDERAB LES Final Result Performing Organization Address [facility] Co de Phone Number [facility] [address] [place] [phone] * Vitamin B12 (Cobalamin) and Folate Panel, Serum (01/26/2024 10:46 AM EST) Vitamin B12 537 200 - 900 pg/mL [facility] Comment:NORMAL 200-900 PG/ML INDETERMINATE 160-199 PG/ML DEFICIENT < 160 PG/ML Folate 7.4 > or = 4.0 ng/mL [facility] Comment:Reference Values:> o r = 4.0 ng/mL< 4.0 ng/mL suggests folate deficiency Methotrexate, aminopterin and folinic acid(leucovorin) are chemotherapeutic agents whose molecularstructures are similar to folate; therefore, the Architectfolate assay cannot be used for patients using these drugs. 01/26/2024 10:4 6 AM EST 01/26/2024 10:46 AM EST Generic External Data Provider LAB BLOOD ORDERAB LES Final Result Performing Organization Address [facility] Co de Phone Number [facility] [address] [place] [phone] * (ABNORMAL) CBC auto differential (01/26/2024 10:46 AM EST) White Blood Count 9.1 4.8 - 10.8 X10*3/uL [facility] Red Blood Count 4.78 4.20 - 5.50 X10*6/uL [facility] Hemoglobin 12.0 12.0 - 16.0 g/dl [facility] Hematocrit 37.7 37.0 - 47.0 % [facility] Mean Corpuscular Volume 78.9(L) 80.0 - 98.0 fL [facility] Mean Corpuscular Hemoglobin 25.1(L) 27.0 - 33.0 pg [facility] Mean Corpuscular HGB Conc 31.8 31.0 - 35.0 g/dl [facility] Red Cell Distribution Width 13.4 11.0 - 16.0 % [facility] Platelet Count 326 160 - 400 X10*3/uL [facility] Mean Platelet Volume 9.3(L) 9.4 - 12.3 fL [facility] Neutrophils Percent Auto 63.6 45 - 73 % [facility] Imm Gran Pct Auto 0.2 0.0 - 0.4 % [facility] Lymphocytes Percent Auto 29.9 20 - 40 % [facility] Monocytes Percent Auto 4.9 2 - 11 % [facility] Eosinophils Percent Auto 1.0 0 - 4 % [facility] Basophils Percent Auto 0.4 0 - 2 % [facility] NRBC Pct Auto 0.0 0.0 - 0.2 /100WBC [facility] Neutrophils Absolute Auto 5.8 2.0 - 8.3 x10*3/uL [facility] Imm Gran Abs Auto 0.02 0.00 - 0.03 X10*3/uL [facility] Lymphocytes Absolute Auto 2.7 1.2 - 4.9 X10*3/uL [facility] Monocytes Absolute Auto 0.4 0.1 - 1.2 X10*3/uL [facility] Eosinophils Absolute Auto 0.1 0.0 - 0.4 X10*3/uL [facility] Basophils Absolute Auto 0.0 0.0 - 0.2 X10*3/uL [facility] NRBC Abs Auto 0.000 0.0 - 0.012 X10*3/uL [facility] 01/26/2024 10:4 6 AM EST 01/26/2024 10:46 AM EST us Generic External Data Provider LAB BLOOD ORDERAB LES Final Result Performing Organization Address [facility] de Phone Number [facility] [address] [place] [phone] * (ABNORMAL) Insulin (01/26/2024 10:46 AM EST) Insulin 186(H) 2 - 29 uU/mL [facility] Comment:This test was perfor med [...] ORDERAB LES Final Result Performing Organization Address [facility] Phone Number [facility] [address] [place] [phone] * (ABNORMAL) Zinc (01/26/2024 10:46 AM EST) Zinc 54(A) 60 - 130 mcg/dL [facility] Comment:This test was develo ped and its analytical performancecharacteristics have been determined by [employer] [place], [place]. It hasnot been cleared or approved by the U.S. Food and DrugAdministration. This assay has been validated pursuantto the CLIA regulations and is used for clinicalpurposes.THIS TEST WAS PERFORMED AT:[facility] [place] [address]NQQFINCNIKKY MANNING MD,PHD 01/26/2024 10:4 6 AM EST 01/26/2024 10:46 AM EST us Generic External Data Provider LAB BLOOD ORDERAB LES Final Result Performing Organization Address [facility]/ZIP Co de Phone Number [facility] [address] [place] [phone] * Vitamin A (01/26/2024 10:46 AM EST) Vitamin A (Retinol) 41 38 - 98 mcg/dL [facility] Comment:Vitamin supplementat ion within 24 hours prior toblood draw may affect the accuracy of the results.This test was developed and its analytical performancecharacteristics have been determined by [employer], [place]. It hasnot been cleared or approved by the .S. Food and DrugAdministration. This assay has been validated pursuantto the CLIA regulations and is used for clinicalpurposes.THIS TEST WAS PERFORMED AT:[facility] [id number] [id number] MANNING MD,PHD 01/26/2024 10:4 6 AM EST 01/26/2024 10:46 AM EST us Generic External Data Provider LAB BLOOD ORDERAB LES Final Result Performing Organization Address [facility] de Phone Number [facility] [address] [place] [phone] * (ABNORMAL) Vitamin B1 (01/26/2024 10:46 AM EST) Vitamin B1 <6(A) 8 - 30 nmol/L [facility] Comment:Vitamin supplementat ion within 24 hours prior toblood draw may affect the accuracy of the results.This test was developed and its analytical performancecharacteristics have been determined by [employer], [place]. It hasnot been cleared or approved by the U.S. Food and DrugAdministration. This assay has been validated pursuantto the CLIA regulations and is used for clinicalpurposes.THIS TEST WAS PERFORMED AT:[facility] [place] [address]JGZVXQINIKKY MANNING MD,PHD 01/26/2024 10:4 6 AM EST 01/26/2024 10:46 AM EST us Generic External Data Provider LAB BLOOD ORDERAB LES Final Result Performing Organization Address City/[facility]/ZIP Co de Phone Number [facility] [address] [place] [phone] * (ABNORMAL) Hemoglobin A1c (01/26/2024 10:46 AM EST) Hemoglobin A1c 6.1(H) <6.0 % [facility] Comment:Hemoglobin A1C Refer ence Range Adults: 4.8 - 6.0 % Non diabetic: < 6.0 % Goal: < 7.0 %Additional Action Suggested: > 8.0 %Note: Hemoglobin A1c results are invalid for patients with abnormal amounts of HbF. Blood transfusions may impact the HbA1c concentration in the patient sample. Estimated Average Glucose 128 mg/dL [facility] Comment:eAG = Estimated ave rage glucose which is %A1C expressed asaverage glucose, using the formula of the V4E-KzyrmtkNklifjb Glucose study (ADAG), Diabetes Care, Vol.31,#8,2007 01/26/2024 10:4 6 AM EST 01/26/2024 10:46 AM EST us Generic External Data Provider LAB BLOOD ORDERAB LES Final Result Performing Organization Address City/[facility]/ZIP Co de Phone Number [facility] [address] [place] [phone] * Ferritin (01/26/2024 10:46 AM EST) Ferritin 15 10 - 122 ng/mL [facility] 01/26/2024 10:4 6 AM EST 01/26/2024 10:46 AM EST us Generic External Data Provider LAB BLOOD ORDERAB LES Final Result Performing Organization Address City/[facility]/ZIP Co de Phone Number [facility] [address] [place] [address] [place] [phone] * (ABNORMAL) Lipid Panel with Reflex to Direct LDL (11/26/2023 11:30 AM EDT) Triglycerides 145 <150 mg/dL [facility] Comment:Desirable Triglyceri de: less than 150 mg/dLBorderline High Triglyceride 150-199 mg/dLHigh Triglyceride: 200-499 mg/dLVery High Triglyceride: greater than or equal to 5OO mg/dL Cholesterol 152 <200 mg/dL [facility] Comment:Desirable Cholestero l: less than 200 mg/dLBorderline High Cholesterol: 200-239 mg/dLHigh Cholesterol: greater than 239 mg/dL LDL Cholesterol Calculated 91 <100 mg/dL [facility] Comment:Desirable LDL: less than 100 mg/dLNear Optimal/Above Optimal LDL: 110- 129 mg/dLBorderline High LDL: 130-159 mg/dLHigh LDL: 160-189 mg/dLVery High LDL: greater than or equal to 190 mg/dL HDL Cholesterol 32(L) >40 mg/dL [facility] Comment:Desirable HDL: great er than 40 mg/dL Note: This HDL assay may give artificially low results in patients with liver disease. Blood 11/26/2023 11:3 0 AM EDT 11/26/2023 1:20 PM EDT Cinthya Ray MD LAB BLOOD ORDERABLES Final Resul t [facility] [address] [place] [phone] * Hepatitis C Antibody with Reflex to HCV, RNA, Quantitative, Real-Time PCR (11/26/2023 11:30 AM EDT) Hepatitis C Antibody Nonreactive Nonreactive [facility] Comment:Antibodies to HCV no t detected; does not exclude early acuteHCV infection. Blood Venous blood specimen / Unknown 11/26/2023 11:30 AM EDT 11/26/2023 1:20 PM EDT us Cinthya Ray MD LAB BLOOD ORDERABLES Final Resul t Performing Organization Address City/[facility]/ZIP Co de Phone Number [facility] [address] [place] [phone] * HIV-1/2 Antigen and Antibodies, Fourth Generation, with Reflexes (11/26/2023 11:30 AM EDT) HIV AB/AG Nonreactive Nonreactive [facility] Comment:HIV-1 p24 Ag and/or HIV-1/HIV-2 Ab not detected.A test result that is nonreactive does not exclude thepossibility of exposure to or infection with HIV-1 and/orHIV-2. Nonreactive results in this assay for individualswith prior exposure to HIV-1 and/or HIV-2 may be due toantigen and antibody levels that are below the limit ofdetection of this assay.[employer] HIV Ag/Ab Combo assay result andsupplemental assay results should be interpreted inconjunction with the patient's clinical presentation,history and other laboratory results. If the results areinconsistent with clinical evidence, additional testing issuggested to confirm the result. Blood Venous blood specimen / Unknown 11/26/2023 11:30 AM EDT 11/26/2023 1:20 PM EDT us Cinthya Ray MD LAB BLOOD ORDERABLES Final Resul t Performing Organization Address City/[facility]/ZIP Co de Phone Number [facility] [address] [place] [phone] * Albumin, Random Urine W/Creatinine (11/26/2023 12:00 AM EDT) Creatinine, Urine 238.24 mg/dL [facility] Microalbumin Urine 23.0 mg/L [facility] Microalbum Creatinine Ratio Ur 9.6 <30 ug/mg cr [facility] Comment:Albumin/Creatinine R atio Reference Ranges: Normal: < 30 ug/mg creatinine Microalbuminuria: 30 - 300 ug/mg creatinineClinical Albuminuria: > 300 ug/mg creatinine Urine 11/26/2023 11/26/2023 Cinthya Ray MD LAB URINE ORDERABLES Final Resul t [facility] [address] [place] [phone] * Hm Diabetes Eye Exam (01/24/2023) Eye Exam Normal Normal Comment:[facility] 01/24/2023 Historical Provider HEALTH MAINTENANCE Final [...] has been evaluated with computer assisted technology. [facility] Automotive Parts Manager : SEE COMMENT [facility] Comment: MXD, CT (ASCP) CT screening location: [address] ??[address] Interpretation/R esult: Negative for intraepithelial lesion or malignancy. [facility] LMP: NONE [facility] Prev. BX: NONE [facility] Prev. PAP: NONE [facility] SOURCE: None given [facility] Statement Of Adequacy: SEE COMMENT [facility] Comment: Satisfactory for evaluation. Endocervical/transformation zone component present. Age and/or menstrual status not provided 07/24/2021 4:01 PM EDT Cinthya Ray MD LAB PATHOLOGY ORDERABLES Final R esult [facility] [address] [place] from Last 3 Months or Most Recently Relevant to Health Maintenance Insurance [facility] C3 DENTAL-[facility] [place] [id number] Care Teams Magnetometer Operator Relationship Specialty Start Date End Date Cinthya Ray MD [address] [place] [phone] PCP - General Family Medicine 10/23/11 Mayito Acuña, DyanD [address] [place] [phone] Pharmacist Internal Medicine 03/07/23
--- OUTSIDE RECORDS SUMMARY | 2024-04-22 18:12 | XMS_ITS | Encounter Summary ---
Author Organization [employer] Address [address] [place] [address] [address] [place] [address] Care Team Providers Care Pattern Changer Name Role Phone Cinthya Ray MD Primary Care Provider [phone] Mayito Acuña PharmD Unavailable [phone] Reason for Visit * Reason Onset Date Comments Med Refill 12/24/2023 Encounter Details Date Type Department Care Team (Late st Contact Info) Description 12/24/2023 Refill [facility] [address] [place], [place] [phone] Cinthya Ray MD [address] [place] [address] Type 2 diabetes mellitus with hyperglycemia, without long-term current use of insulin ([facility]) Social [...] EDT Telemedicine [facility] MEDIC[facility] [address] [place] [address] Mayito Acuña PharmD [address] [place] [phone] 07/30/2024 3:00 PM EDT Office Visit [facility] ADULT D[facility]AL [address] [place] [address] Demario Bocanegra documented as of this encounter [...] without long-term current use of insulin ([facility]) documented in this encounter Additional Health Concerns Assessment Noted Time PHQ-9 Depression Total Score: 11 024 9:48 AM EDT documented as of this encounter Care Teams Pattern Changer Relationship Specialty Start Date End Date Cinthya Ray MD [address] [place] [address] PCP - General Family Medicine 10/23/11 Mayito Acuña, DyanD [address] [place] [address] Pharmacist Internal Medicine 03/07/23 documented as of this encounter
--- OUTSIDE RECORDS SUMMARY | 2024-04-22 18:12 | XMS_ITS | Clinical Summary ---
Author Organization [facility] Address [address] [place] [address] Phone Care Team Providers Care Sexual Assault Social Worker Name Role Phone Unavailable Primary Care Provider Unavailabl e Allergies No known active allergies Encounters Date Type Department Care Team Description 02/29/2024 2:07 AM EST - 02/29/2024 3:08 AM EST Emergency [facility] Emergency [address] [place] [address] Viral syndrome (Primary Dx) Discharge [...] LAB MICROBIOLOGY METHOD 02/29/2024 3:00 AM EST [facility] Influenza A PCR Not Detected Not Detected LAB MICROBIOLOGY METHOD 02/29/2024 3:00 AM EST [facility] Influenza B PCR Not Detected Not Detected LAB MICROBIOLOGY METHOD 02/29/2024 3:00 AM EST [facility] Coronavirus 229E Not Detected Not Detected LAB MICROBIOLOGY METHOD 02/29/2024 3:00 AM [facility] Coronavirus HKU1 Not Detected Not Detected LAB MICROBIOLOGY METHOD 02/29/2024 3:00 AM [facility] Coronavirus OC43 Not Detected Not Detected LAB MICROBIOLOGY METHOD 02/29/2024 3:00 AM EST [facility] Coronavirus NL63 Not Detected Not Detected LAB MICROBIOLOGY METHOD 02/29/2024 3:00 AM EST [facility] Parainfluenza Virus 1 Not Detected Not Detected LAB MICROBIOLOGY METHOD 02/29/2024 3:00 AM [facility] Parainfluenza Virus 2 Not Detected Not Detected LAB MICROBIOLOGY METHOD 02/29/2024 3:00 AM [facility] Parainfluenza Virus 3 Not Detected Not Detected LAB MICROBIOLOGY METHOD 02/29/2024 3:00 AM EST [facility] Parainfluenza Virus 4 Not Detected Not Detected LAB MICROBIOLOGY METHOD 02/29/2024 3:00 AM [facility] RSV PCR Not Detected Not Detected LAB MICROBIOLOGY METHOD 02/29/2024 3:00 AM [facility] Human Metapneumovirus A and B Not Detected Not Detected LAB MICROBIOLOGY METHOD 02/29/2024 3:00 AM [facility] Rhinovirus/Entero virus Not Detected Not Detected LAB MICROBIOLOGY METHOD 02/29/2024 3:00 AM EST [facility] Bordetella pertussis Not Detected Not Detected LAB MICROBIOLOGY METHOD 02/29/2024 3:00 AM [facility] Bordetella parapertussis Not Detected Not Detected LAB MICROBIOLOGY METHOD 02/29/2024 3:00 AM [facility] Mycoplasma pneumo by PCR Not Detected Not Detected LAB MICROBIOLOGY METHOD 02/29/2024 3:00 AM [facility] Chlamydia pneumoniae Not Detected Not Detected LAB MICROBIOLOGY METHOD 02/29/2024 3:00 AM [facility] SARS COV-2 Not Detected Not Detected LAB MICROBIOLOGY METHOD 02/29/2024 3:00 AM [facility] Swab Both anterior nares / Unknown Non-blood Collection / Unknown 02/29/2024 1:27 AM EST 02/29/2024 1:46 AM [facility] - 02/29/2024 3:00 AM EST Testing was performed using the Cantimer Respiratory Pathogen PCR Assay. All results must [...] Valero MD LAB MICROBIOLOGY - GENERAL [facility] Final Result [facility] [address] [place] [address], from Last 3 Months Insurance [place]
--- OUTSIDE RECORDS SUMMARY | 2024-04-22 18:12 | XMS_ITS | Encounter Summary ---
Author Organization [employer] Address [address] [place] [address] 7 [place] [address] Care Team Providers Care Straw Hat Presser Name Role Phone Cinthya Ray MD Primary Care Provider [phone] Mayito Acuña PharmD Unavailable [phone] Reason for Visit * Reason Onset Date Comments Med Refill 09/29/2023 Encounter Details Date Type Department Care Team (Late st Contact Info) Description 09/29/2023 Refill [facility] [address] [place], [place] [phone] Cinthya Ray MD [address] [place] [address] Type 2 diabetes mellitus with hyperglycemia, without long-term current use of insulin ([facility]) Social History Tobacco Use Types [...] Description 04/23/2024 3:30 PM EDT Telemedicine [facility] [address] [place] [address] Mayito Acuña, DyanD [address] [place] [address] 07/30/2024 3:00 PM EDT Office Visit [facility] ADULT DENTAL [address] [place] [address] Demario Bocanegra documented as of this encounter [...] hyperglycemia, without long-term current use of insulin ([facility]) documented in this encounter Additional Health Concerns Assessment Noted Time PHQ-9 Depression Total Score: 11 024 9:48 AM EDT documented as of this encounter Care Teams Straw Hat Presser Relationship Specialty Start Date End Date Cinthya Ray MD [address] [place] [address] PCP - General Family Medicine 10/23/11 Mayito Acuña, Citlali [address] [place] [address] Pharmacist Internal Medicine 03/07/23 documented as of this encounter
--- OUTSIDE RECORDS SUMMARY | 2024-04-22 18:12 | XMS_ITS | Encounter Summary ---
Author Organization [employer] Address [address] [place] [address] 7 [place] [address] Care Team Providers Care Manager Of Change Name Role Phone Cinthya Ray MD Primary Care Provider [phone] Mayito Acuña PharmD Unavailable [phone] Reason for Visit * Reason Onset Date Comments Med Refill 10/30/2023 Encounter Details Date Type Department Care Team (Late st Contact Info) Description 10/30/2023 Refill [facility] [address] [place], [place] [phone] Cinthya Ray MD [address] [place] [address] Type 2 diabetes mellitus with hyperglycemia, without long-term current use of insulin ([facility]) Social History Tobacco Use [...] Info) Description 04/23/2024 3:30 PM EDT Telemedicine [facility] MEDICINE [address] [place] [address] Mayito Acuña, DyanD [address] [place] [address] 07/30/2024 3:00 PM EDT Office Visit [facility] ADULT DENTAL [address] [place] [address] Demario Bocanegra documented as of this encounter [...] long-term current use of insulin ([facility]) documented in this encounter Additional Health Concerns Assessment Noted Time PHQ-9 Depression Total Score: 11 024 9:48 AM EDT documented as of this encounter Care Teams Manager Of Change Relationship Specialty Start Date End Date Cinthya Ray MD [address] [place] [address] PCP - General Family Medicine 10/23/11 Mayito Acuña, Citlali [address] [place] [address] Pharmacist Internal Medicine 03/07/23 documented as of this encounter
--- OUTSIDE RECORDS SUMMARY | 2024-04-22 18:12 | XMS_ITS | Encounter Summary ---
Author Organization [facility] Address [address] [place] [address] 7 [place] [address] Care Team Providers Care Commercial Helicopter Pilot Name Role Phone Cinthya Ray MD Primary Care Provider [phone] Mayito Acuña PharmD Unavailable [phone] Reason for Visit * Reason Comments Med Refill Encounter Details Date Type Department Care Team (Late st Contact Info) Description 08/31/2022 Refill [facility] MED[facility] [address] [place] [address] Starla Nuñez MD [address] [place] [address] Injury of head, initial encounter Social History [...] Description 04/23/2024 3:30 PM EDT Telemedicine [facility] MED[facility]INE [address] [place] [address] Mayito Acuña, Citlali [address] [place] [address] 07/30/2024 3:00 PM EDT Office Visit [facility] ADULT D[facility]AL [address] [place] [address] Demario Bocanegra documented as of this encounter Visit Diagnoses Diagnosis Injury of head, initial encounter documented in this encounter Care Teams Commercial Helicopter Pilot Relationship Specialty Start Date End Date Cinthya Ray MD [address] [place] [address] PCP - General Family Medicine 10/23/11 Mayito Acuña, Citlali [address] [place] [address] Pharmacist Internal Medicine 03/07/23 documented as of this encounter
--- OUTSIDE RECORDS SUMMARY | 2024-04-22 18:12 | XMS_ITS | Encounter Summary ---
Author Organization [employer] Address [address] [facility] 7 [place] [address] Care Team Providers Care Air Pollution Inspector Name Role Phone Cinthya Ray MD Primary Care Provider [phone] Mayito Acuña PharmD Unavailable [phone] Encounter Details Date Type Department Care Team (Late st Contact Info) Description 04/06/2024 Orders Only [facility] MEDICINE [address] [place], [place] [phone] Lexis Spann MD [address] [place], [place] [phone] Social History Tobacco Use Types Packs/Day Years [...] EDT Telemedicine [facility] [address] [place], [place] [phone] Mayito Acuña, PharmD [address] [place] [address] 07/30/2024 3:00 PM EDT Office Visit [facility] ADULT DENTAL [address] [place] [address] Demario Bocanegra documented as of this encounter [...] DETECTION BY PCR NOT DETECTED Not Detect [facility] BACTERIAL VAGINOSIS DETECTION BY PCR POSITIVE(A) Negative [facility] Comment:The BV organism targ ets of [...] DETECTION BY PCR NOT DETECTED Not Detect [facility] Deyanira glab krusei PCR NOT DETECTED Not Detect [facility] 04/06/2024 5:04 PM EST 04/07/2024 11:23 AM EST us Lexis Spann MD LAB MICROBIOLOGY - GENER AL ORDERABLES Final Result [facility] [address] [place] [address] [phone] documented in this encounter Visit Diagnoses Not on filedocumented in this encounter Additional Health Concerns Assessment Noted Time PHQ-9 Depression Total Score: 11 024 9:48 AM EDT documented as of this encounter Care Teams Air Pollution Inspector Relationship Specialty Start Date End Date Cinthya Ray MD [address] [place] [address] PCP - General Family Medicine 10/23/11 Mayito Acuña, Citlali [address] [place] [address] Pharmacist Internal Medicine 03/07/23 documented as of this encounter
--- OUTSIDE RECORDS SUMMARY | 2024-04-22 18:12 | XMS_ITS | Encounter Summary ---
Author Organization [employer] [facility] Address [address] [place] [address] 7 [place] [address] Care Team Providers Care Rafter Cutting Machine Operator Name Role Phone Cinthya Ray MD Primary Care Provider Mayito Acuña PharmD Unavailable [phone] Reason for Visit * Reason Onset Date Comments Nurse Triage 03/23/2024 Encounter Details Date Type Department Care Team ([facility] st Contact Info) Description 03/23/2024 Telephone [facility] MEDICINE [address] [place], [place] [phone] Cinthya Ray MD [address] [place] [address] Nurse Triage Social History Tobacco Use Types [...] LVM to return call to [facility] triage line [phone]. Will also send portal message to return call. Reviewed [facility] operating hours . Tien Rosa routed conversation to [place] Triage Nurse4 hours ago (12:47 PM) Sonali Rosa P [facility] Clinical Support (supporting Cinthya Ray MD)6 [...] [facility] [address] [place] [address] Mayito Acuña, PharmD [address] [place] [address] 07/30/2024 3:00 PM EDT Office Visit [facility] ADULT DENTAL [address] [place] [address] Demario Bocanegra documented as of this encounter [...] documented as of this encounter Care Teams Rafter Cutting Machine Operator Relationship Specialty Start Date End Date Cinthya Ray MD [address] [place] [address] PCP - General Family Medicine 10/23/11 Mayito Acuña PharmD [address] [place] [address] Pharmacist Internal Medicine 03/07/23 documented as of this encounter
--- OUTSIDE RECORDS SUMMARY | 2024-04-22 18:12 | XMS_ITS | Encounter Summary ---
Author Organization [employer] Address [address] [place] [address] 7 [place] [address] Care Team Providers Care Blanket Winder Operator Name Role Phone Cinthya Ray MD Primary Care Provider [phone] Mayito Acuña PharmD Unavailable [phone] Reason for Visit * Reason Onset Date Comments Med Refill 03/12/2024 Encounter Details Date Type Department Care Team (Late st Contact Info) Description 03/12/2024 Refill [facility] PEDS [address] [place], [place] [phone] Cinthya Ray MD [address] [place] [address] Type 2 diabetes mellitus with hyperglycemia, without long-term current use of insulin ([facility]) Social History Tobacco Use Types Packs/Day [...] Info) Description 04/23/2024 3:30 PM EDT Telemedicine [facility] MEDICINE [address] [place] [address] Mayito Acuña PharmD [address] [place] [address] 07/30/2024 3:00 PM EDT Office Visit [facility] ADULT DENTAL [address] [place] [address] Demario Bocanegra documented as of this encounter [...] hyperglycemia, without long-term current use of insulin ([facility]) documented in this encounter Additional Health Concerns Assessment Noted Time PHQ-9 Depression Total Score: 11 024 9:48 AM EDT documented as of this encounter Care Teams Blanket Winder Operator Relationship Specialty Start Date End Date Cinthya Ray MD [address] [place] [address] PCP - General Family Medicine 10/23/11 Mayito Acuña, DyanD [address] [place] [address] Pharmacist Internal Medicine 03/07/23 documented as of this encounter
--- OUTSIDE RECORDS SUMMARY | 2024-04-22 18:12 | XMS_ITS | Encounter Summary ---
Author Organization [employer] [facility] Address [address] [place] [address] 7 [place] [address] Care Team Providers Care Filler Mixer Name Role Phone Cinthya Ray MD Primary Care Provider [phone] Mayito Acuña PharmD Unavailable Reason for Visit * Reason Onset Date Comments Medication Question 06/14/2022 Encounter Details Date Type Department Care Team ([facility] st Contact Info) Description 06/14/2022 Telephone [facility] MEDICINE [address] [place], [place] [phone] Cnithya Ray MD [address] [place], [place] [phone] Medication Question Social History Tobacco Use Types [...] [facility] MEDICINE [address] [place] [address] Mayito Acuña, PharmD [address] [place] [address] 07/30/2024 3:00 PM EDT Office Visit [facility] ADULT DENTAL [address] [place] [address] Demario Bocanegra documented as of this encounter Visit Diagnoses Not on filedocumented in this encounter Care Teams Filler Mixer Relationship Specialty Start Date End Date Cinthya Ray MD [address] [place] [address] PCP - General Family Medicine 10/23/11 Mayito Acuña, PharmD [address] [place] [address] Pharmacist Internal Medicine 03/07/23 documented as of this encounter
--- OUTSIDE RECORDS SUMMARY | 2024-04-22 18:12 | XMS_ITS | Encounter Summary ---
Author Organization [employer] [facility] Address [address] [place] [address] 7 [place] [address] Care Team Providers Care Fence Repairman Name Role Phone Cinthya Ray MD Primary Care Provider [phone] Mayito Acuña PharmD Unavailable [phone] Reason for Visit * Reason Onset Date Comments Med Refill 10/30/2023 Encounter Details Date Type Department Care Team (Late st Contact Info) Description 10/30/2023 Refill [facility] MEDICINE [address] [place], [place] [phone] Cinthya Ray MD [address] [place], [place] [phone] Social History Tobacco Use Types Packs/Day Years [...] Telemedicine [facility] MEDICINE [address] [place] [address] Mayito Acuña PharmD [address] [place] [address] 07/30/2024 3:00 PM EDT Office Visit [facility] ADULT DENTAL [address] [place] [address] Demario Bocanegra documented as of this encounter [...] documented as of this encounter Care Teams Fence Repairman Relationship Specialty Start Date End Date Cinthya Ray MD [address] [place] [address] PCP - General Family Medicine 10/23/11 Mayito Acuña, PharmD [address] [place] [address] Pharmacist Internal Medicine 03/07/23 documented as of this encounter
--- OUTSIDE RECORDS SUMMARY | 2024-04-22 18:12 | XMS_ITS | Encounter Summary ---
Author Organization [employer] Address [address] [facility] 7t [place] [address] Care Team Providers Care Simulation Technician Name Role Phone Cinthya Ray MD Primary Care Provider [phone] Mayito Acuña PharmD Unavailable [phone] Encounter Details Date Type Department Care Team ([facility] st Contact Info) Description 03/05/2023 Orders Only [facility] MEDICINE [address] [place], [place] [phone] Cinthya Ray MD [address] [place], [place] [phone] Social History Tobacco Use Types Packs/Day Years [...] Info) Description 04/23/2024 3:30 PM EDT Telemedicine [facility] MEDICINE [address] [place] [address] Mayito Acuña PharmD [address] [place] [address] 07/30/2024 3:00 PM EDT Office Visit [facility] ADULT DENTAL [address] [place] [address] Demario Bocanegra documented as of this encounter Goals Goal Patient Goal Type Associated Problems Recent Progress Patient-Stated? Author Blood Pressure < 140/90 Blood Pressure 120/70(2024 5:10 PM EST) No Mayito Acuña PharmD Hemoglobin A1c < 7 Result Component 6.1( 10:46 AM EST) No Mayito Acuña PharmD documented as of this encounter Visit Diagnoses Not on filedocumented in this encounter Care Teams Simulation Technician Relationship Specialty Start Date End Date Cinthya Ray MD [address] [place] [address] PCP - General Family Medicine 10/23/11 Mayito Acuña PharmD [address] [place] [address] Pharmacist Internal Medicine 03/07/23 documented as of this encounter
--- OUTSIDE RECORDS SUMMARY | 2024-04-22 18:12 | XMS_ITS | Encounter Summary ---
Author Organization [employer] Address [address] [place] [address] 7 [place] [address] Care Team Providers Care Hygiene Coordinator Name Role Phone Cinthya Ray MD Primary Care Provider [phone] Mayito Acuña PharmD Unavailable [phone] Reason for Visit * Reason Onset Date Comments Prior Authorization 04/01/2024 Encounter Details Date Type Department Care Team (Late st Contact Info) Description 04/01/2024 Telephone [facility] MEDICINE [address] [place], [place] [phone] Rianna Solis RN [address] [place] [address] Prior Authorization Social History Tobacco Use Types [...] PM EST [facility] * Telephone Encounter - Rianna Solis RN - 04/01/2024 2:27 PM EST Received request from Audrey MILTON from pharmacy. PA packet generated and placed on PCP's desk. Pending signature. documented in this encounter Plan of Treatment Upcoming Encounters Date Type Department Care Team (Late st Contact Info) Description 04/23/2024 3:30 PM EDT Telemedicine [facility] MEDICINE [address] [place] [address] Mayito Acuña, PharmD [address] [place] [address] 07/30/2024 3:00 PM EDT Office Visit [facility] ADULT DENTAL [address] [place] [address] Demario Bocanegra documented as of this encounter [...] documented as of this encounter Care Teams Hygiene Coordinator Relationship Specialty Start Date End Date Cinthya Ray MD [address] [place] [address] PCP - General Family Medicine 10/23/11 Mayito Acuña PharmD [address] [place] [address] Pharmacist Internal Medicine 03/07/23 documented as of this encounter
--- OUTSIDE RECORDS SUMMARY | 2024-04-22 18:12 | XMS_ITS | Encounter Summary ---
Author Organization [employer] [facility] Address [address] [place] [address] 7 [place] [address] Care Team Providers Care Risk Control Representative Name Role Phone Cinthya Ray MD Primary Care Provider [phone] Mayito Acuña PharmD Unavailable [phone] Reason for Visit * Reason Onset Date Comments triage 04/10/2022 Encounter Details Date Type Department Care Team (Late st Contact Info) Description 04/10/2022 Telephone [facility] MEDICINE [address] [place], [place] [phone] Cinthya Ray MD [address] [place], [place] [phone] triage Social History Tobacco Use Types Packs/Day [...] EDT Telemedicine [facility] MEDICINE [address] [place] [address] Mayito Aucña, PharmD [address] [place] [address] 07/30/2024 3:00 PM EDT Office Visit [facility] CHC ADULT DENTAL [address] [place] [address] Demario Bocanegra documented as of this encounter Visit Diagnoses Not on filedocumented in this encounter Care Teams Risk Control Representative Relationship Specialty Start Date End Date Cinthya Ray MD [address] [place] [address] PCP - General Family Medicine 10/23/11 Mayito Acuña, Citlali [address] [place] [address] Pharmacist Internal Medicine 03/07/23 documented as of this encounter
--- OUTSIDE RECORDS SUMMARY | 2024-04-22 18:12 | XMS_ITS | Encounter Summary ---
Author Organization [facility] Address [address] [place] [address] 7 [place] [address] Care Team Providers Care Molding Line Operator Name Role Phone Cinthya Ray MD Primary Care Provider [phone] Mayito Acuña PharmD Unavailable [phone] Reason for Referral * Consultation (Routine) - Authorized Specialty Diagnoses / Procedures Referred By Contcarly t Referred To Contact Pharmacy Diagnoses Type 2 diabetes mellitus with hyperglycemia, with long-term current use of insulin (CMS/HCC) Cinthya Ray MD [address] [place] [address] Phone: tel: fax: Referral ID Status Reason Start Date Expiration Date Visits Requested Visits Authorized [id number] Authorized Consult and Treat 12/23/2023 12/22/2024 6 6 Encounter Details Date Type Department Care Team (Late st Contact Info) Description 12/23/2023 Orders Only [facility] MEDICINE [address] [place] [phone] Cinthya Ray MD [address] [place], [place] [phone] Type 2 diabetes mellitus with hyperglycemia, with [...] Telemedicine [facility] MEDICINE [address] [place] [address] Mayito Acuña, PharmD [address] [place] [address] 07/30/2024 3:00 PM EDT Office Visit [facility] ADULT DENTAL [address] [place] [address] Demario Bocanegra Scheduled Referrals Name Type Priority Associated Diagnoses Orde r Schedule Referral to Pharmacy CDTM Outpatient Referral Routine Type 2 diabetes mellitus with hyperglycemia, with long-term current use of insulin ([facility]) Ordered: 12/23/2023 documented as of this [...] with long-term current use of insulin ([facility])- Primary documented in this encounter Additional Health Concerns Assessment Noted Time PHQ-9 Depression Total Score: 11 024 9:48 AM EDT documented as of this encounter Care Teams Molding Line Operator Relationship Specialty Start Date End Date Cinthya Ray MD [address] [place] [address] PCP - General Family Medicine 10/23/11 Mayito Acuña PharmD [address] [place] [address] Pharmacist Internal Medicine 03/07/23 documented as of this encounter
--- OUTSIDE RECORDS SUMMARY | 2024-04-22 18:12 | XMS_ITS | Encounter Summary ---
Author Organization [employer] Address [address] [facility] 7t [place] [address] Care Team Providers Care Explosive Specialist Name Role Phone Cinthya Ray MD Primary Care Provider [phone] Mayito Acuña PharmD Unavailable [phone] Encounter Details Date Type Department Care Team (Late st Contact Info) Description 04/07/2024 Telephone [facility] MEDICINE [address] [place], [place] [phone] Lexis Spann MD [address] [place], [place] [phone] Social History Tobacco Use Types Packs/Day Years [...] 3:30 PM EDT Telemedicine [facility] MEDICINE [address] [place] [address] Mayito Acuña PharmD [address] [place] [address] 07/30/2024 3:00 PM EDT Office Visit [facility] ADULT DENTAL [address] [place] [address] Demario Bocanegra documented as of this encounter Goals Goal Patient Goal Type Associated Problems Recent Progress Patient-Stated? Author Blood Pressure < 140/90 Blood Pressure 120/70(2024 5:10 PM EST) No Mayiot Acuña PharmD Hemoglobin A1c < 7 Result Component 6.1( 10:46 AM EST) No Mayito Acuña PharmD documented as of this encounter Visit Diagnoses Not on filedocumented in this encounter Additional Health Concerns Assessment Noted Time PHQ-9 Depression Total Score: 11 024 9:48 AM EDT documented as of this encounter Care Teams Explosive Specialist Relationship Specialty Start Date End Date Cinthya Ray MD [address] [place] [address] PCP - General Family Medicine 10/23/11 Mayito Acuña PharmD [address] [place] [phone] Pharmacist Internal Medicine 03/07/23 documented as of this encounter
--- OUTSIDE RECORDS SUMMARY | 2024-04-22 18:12 | XMS_ITS | Encounter Summary ---
Author Organization [employer] Address [address] [facility] 7 [place] [address] Care Team Providers Care Road Mechanic Name Role Phone Cinthya Ray MD Primary Care Provider [phone] Mayito Acuña PharmD Unavailable Encounter Details Date Type Department Care Team (Late st Contact Info) Description 03/05/2024 Orders Only [facility] MEDICINE 230 [place], [place] [phone] Cinthya Ray MD [address] [place], [place] [phone] Type 2 diabetes mellitus with other specified complication, with long-term current use of insulin ([facility]) (Primary Dx) Social History Tobacco [...] the past 12 months, has t he [employer], gas, oil or water company threatened to [...] [facility] MEDICINE [address] [place] [address] Mayito Acuña PharmD [address] [place] [address] 07/30/2024 3:00 PM EDT Office Visit [facility] CHC ADULT DENTAL [address] [place] [address] Demario Bocanegra documented as of this encounter [...] complication, with long-term current use of insulin ([facility])- Primary documented in this encounter Additional Health Concerns Assessment Noted Time PHQ-9 Depression Total Score: 11 024 9:48 AM EDT documented as of this encounter Care Teams Road Mechanic Relationship Specialty Start Date End Date Cinthya Ray MD [address] [place] [address] PCP - General Family Medicine 10/23/11 Mayito Acuña PharmD [address] [place] [address] Pharmacist Internal Medicine 03/07/23 documented as of this encounter
--- OUTSIDE RECORDS SUMMARY | 2024-04-22 18:12 | XMS_ITS | Encounter Summary ---
Author Organization [employer] [facility] Address [address] [place] [address] 7 [place] [address] Care Team Providers Care Fisher Weir Name Role Phone Cinthya Ray MD Primary Care Provider [phone] Mayito Acuña PharmD Unavailable [phone] Reason for Visit * Reason Onset Date Comments Med Refill 11/02/2023 Encounter Details Date Type Department Care Team (Late st Contact Info) Description 11/02/2023 Refill [facility] MEDICINE 230 [place], [place] [phone] Cinthya Ray MD [address] [place], [place] [phone] Social History Tobacco Use Types Packs/Day Years [...] but unableto make. Pt will come to [facility] today open till 8pm. Pt reports [...] Gill Sent: 11/10/2023 5:32 PM EDT To: [facility] Front Office Subject: Appointment Request Appointment Request From: Sonali Rosa With Provider: Cinthya Ray MD [[facility] MEDICINE] Preferred Date Range: 11/11/2023 - [...] [facility] MED[facility]INE [address] [place] [address] Mayito Acuña PharmD [address] [place] [address] 07/30/2024 3:00 PM EDT Office Visit [facility] ADULT DENTAL [address] [place] [address] Demario Bocanegra documented as of this encounter [...] documented as of this encounter Care Teams Fisher Weir Relationship Specialty Start Date End Date Cinthya Ray MD [address] [place] [address] PCP - General Family Medicine 10/23/11 Mayito Acuña PharmD [address] [place] [address] Pharmacist Internal Medicine 03/07/23 documented as of this encounter
--- OUTSIDE RECORDS SUMMARY | 2024-04-22 18:12 | XMS_ITS | Encounter Summary ---
Author Organization [facility] [facility] Address [address] [place] [address] [address] [facility] [place] [address] Care Team Providers Care Math Interventionist Name Role Phone Cinthya Ray MD Primary Care Provider [phone] Mayito Acuña PharmD Unavailable [phone] Reason for Referral * Consultation (Routine) - Closed Specialty Diagnoses / Procedures Referred By Contcarly t Referred To Contact Orthopaedic Surgery Diagnoses Chronic left shoulder pain Cinthya Ray MD [address] [place] [phone] Phone: tel: fax: [facility] Orthopedics [address] [place] [address] Phone: tel: Referral ID Status Reason Start Date Expiration Date V isits Requested Visits Authorized [id number] Closed Specialty Services Required 02/05/2024 02/04/2025 6 6 Encounter Details Date Type Department Care Team (Late st Contact Info) Description 02/05/2024 Orders Only [facility] MEDICINE [address] [place] [address] Cinthya Ray MD [address] [place], [place] [phone] Chronic left shoulder pain (Primary Dx) Social [...] [facility] MEDICINE [address] [place] [address] Mayito Acuña, PharmD [address] [place] [address] 07/30/2024 3:00 PM EDT Office Visit [facility] CHC ADULT DENTAL [address] [place] [address] Demario Bocanegra Scheduled Referrals Name Type Priority [...] documented as of this encounter Care Teams Math Interventionist Relationship Specialty Start Date End Date Cinthya Ray MD [address] [place] [address] PCP - General Family Medicine 10/23/11 Mayito Acuña PharmD [address] [place] [address] Pharmacist Internal Medicine 03/07/23 documented as of this encounter
--- OUTSIDE RECORDS SUMMARY | 2024-04-22 18:12 | XMS_ITS | Encounter Summary ---
Author Organization [employer] [facility] Address [address] [place] [address] 7 [place] [address] Care Team Providers Care Product Development Name Role Phone Cinthya Ray MD Primary Care Provider [phone] Mayito Acuña PharmD Unavailable Reason for Referral * Consultation (Urgent) - Authorized Specialty Diagnoses / Procedures Referred By Contac t Referred To Contact Endocrinology Diagnoses Type 2 diabetes mellitus with hyperglycemia, with long-term current use of insulin (CMS/HCC) Cinthya Ray MD [address] [place] [address] Phone: tel: fax: [facility] [place] [address] [place] [address] Phone: tel: fax: Referral ID Status Reason Start Date Expiration Date Visits Requested Visits Authorized [id number] Authorized Specialty Services Required 04/19/2024 04/19/2025 12 12 Encounter Details Date Type Department Care Team (Late st Contact Info) Description 04/19/2024 Orders Only [facility] MEDICINE [address] [place], [place] [phone] Cinthya Ray MD [address] [place], [place] [phone] Type 2 diabetes mellitus with hyperglycemia, with [...] is your housing situation today? I have trevgricelda villalba 06/10/[address] you [...] Info) Description 04/23/2024 3:30 PM EDT Telemedicine [facility] MEDICINE 230 [place] [address] Mayito Acuña, PharmD [address] [place] [address] 07/30/2024 3:00 PM EDT Office Visit [facility] CHC ADULT DENTAL [address] [facility] [place] [address] Demario Bocanegra Scheduled Referrals Name Type Priority Associated Diagnoses Order Schedule Referral to Endocrinology Outpatient Referral Urgent Type 2 diabetes mellitus with hyperglycemia, with long-term current use of insulin (CMS/HCC) Expected: 04/19/2024 (Approximate), Expires: 04/19/2025 documented as of this encounter Goals Goal [...] long-term current use of insulin (CMS/[facility])- Primary documented in this encounter Additional Health Concerns Assessment Noted Time PHQ-9 Depression Total Score: 11 024 9:48 AM EDT documented as of this encounter Care Teams Product Development Relationship Specialty Start Date End Date Cinthya Ray MD [address] [place] [address] PCP - General Family Medicine 10/23/11 Mayito Acuña PharmD [address] [place] [address] Pharmacist Internal Medicine 03/07/23 documented as of this encounter
--- OUTSIDE RECORDS SUMMARY | 2024-04-22 18:12 | XMS_ITS | Encounter Summary ---
Author Organization [employer] Address [address] [place] [address] 7 [place] [address] Care Team Providers Care Instructor Weaving Name Role Phone Cinthya Ray MD Primary Care Provider [phone] Mayito Acuña PharmD Unavailable [phone] Reason for Visit * Reason Onset Date Comments Med Refill 09/29/2023 Encounter Details Date Type Department Care Team (Late st Contact Info) Description 09/29/2023 Refill [facility] MEDICINE [address] [place], [place] [phone] Cinthya Ray MD [address] [place], [place] [phone] Type 2 diabetes mellitus with hyperglycemia, without long-term current use of insulin ([facility]) Social History Tobacco Use [...] Description 04/23/2024 3:30 PM EDT Telemedicine [facility] MEDICINE [address] [place] [address] Mayito Acuña, PharmD [address] [place] [address] 07/30/2024 3:00 PM EDT Office Visit [facility] CHC ADULT DENTAL [address] [place] [address] Demario Bocanegra documented as of this encounter [...] hyperglycemia, without long-term current use of insulin ([facility]) documented in this encounter Additional Health Concerns Assessment Noted Time PHQ-9 Depression Total Score: 11 024 9:48 AM EDT documented as of this encounter Care Teams Instructor Weaving Relationship Specialty Start Date End Date Cinthya Ray MD [address] [place] [address] PCP - General Family Medicine 10/23/11 Mayito Acuña, [place] [address] [place] [address] Pharmacist Internal Medicine 03/07/23 documented as of this encounter
== END 2024-04-22 15:00 | disposition home or self-care (01) ==
LOC: HO.HBST 14:22
PROVIDERS: PCP Family Medicine; Visit Provider Counselor Mental Health
DX: F41.8 Other specified anxiety disorders (principal); F43.9 Reaction to severe stress, unspecified
CPT/HCPCS: 90837

== ENCOUNTER → 2024-04-22 14:22 | Outpatient (BNVA) | payer MEDICAID, SELFPAY | PROVIDERS: PCP Family Medicine; Visit Provider Counselor Mental Health ==

== ENCOUNTER 2024-04-24 22:31 | Emergency (ER) | payer MEDICAID, SELFPAY ==
[2024-04-24 22:37] VITALS: BP 98/60; PULSE 91; RESP 16; TEMP 36.7; O2SAT 97; BMI 32.0
--- NOTE | 2024-04-24 22:43 | ECG_ITS ---
Test Reason : syncope Blood Pressure : */* mmHG Vent. Rate : 88 BPM Atrial Rate : 88 BPM P-R Int : 130 ms QRS Dur : 88 ms QT Int : 368 ms P-R-T Axes : -16 -11 -6 degrees QTcB Int : 445 ms Normal sinus rhythm Minimal voltage criteria for LVH, may be normal variant ( R in aVL ) Borderline ECG When compared with ECG of 26-Jan-2024 10:24, Inverted T waves have replaced nonspecific T wave abnormality in Inferior leads Referred By: Generic ED Physician Electronically Signed By: CLAUDIA MEZA
[2024-04-24 22:47] LABS: Glucose, Whole Blood 85 mg/dL (60-115)
[2024-04-24 23:02] LABS: Basophils Percent Auto 0.4 % (0-2); Eosinophils Absolute Auto 0.1 X10*3/uL (0.0-0.4); Eosinophils Percent Auto 1.2 % (0-4); Hematocrit 34.9 % (37.0-47.0); Hemoglobin 11.5 g/dl (12.0-16.0); Imm Gran Abs Auto 0.03 X10*3/uL (0.00-0.03); Imm Gran Pct Auto 0.3 % (0.0-0.4); Lymphocytes Absolute Auto 3.1 X10*3/uL (1.2-4.9); Lymphocytes Percent Auto 33.3 % (20-40); MANUAL DIFF FLAG NO; Mean Corpuscular Hemoglobin 24.8 pg (27.0-33.0); Mean Corpuscular Volume 75.2 fL (80.0-98.0); Monocytes Absolute Auto 0.5 X10*3/uL (0.1-1.2); Neutrophils Absolute Auto 5.5 x10*3/uL (2.0-8.3); Neutrophils Percent Auto 59.8 % (45-73); Platelet Count 281 X10*3/uL (160-400); Red Blood Count 4.64 X10*6/uL (4.20-5.50); Red Cell Distribution Width 15.3 % (11.0-16.0); White Blood Count 9.2 X10*3/uL (4.8-10.8)
[2024-04-24 23:17] LABS: Alanine Aminotransferase 15 U/L (0-31); Albumin Level 3.6 g/dL (3.5-5.0); Alkaline Phosphatase 77 U/L (39-117); Anion Gap 13 (12-20); Aspartate Amino Transferase 22 U/L (5-31); Bilirubin Total 0.3 mg/dL (0.0-1.0); Blood Urea Nitrogen 17 mg/dL (9-16); Calcium 8.7 mg/dL (8.4-10.2); Carbon Dioxide 24 mmol/L (22-29); Chloride 109 mmol/L (96-108); Creatinine Clr Calc Pharmacy 110.9; Estimated Glomerular Filt Rate > 60; Glucose Random 96 mg/dL (60-115); Potassium 3.9 mmol/L (3.3-5.1); Sodium 142 mmol/L (135-145); Total Protein 7.5 g/dL (6.5-8.0)
--- NOTE | 2024-04-24 23:29 | PC.NURSE ---
18g IV access established in left AC at 22:55. Labs drawn and sent for analysis. Awaiting initial ED provider evaluation. Placed on continuous cardiac monitoring. Sister at bedside. RN to RN report given to Helga Whiteside.
--- NOTE | 2024-04-24 23:40 | ED.GENADULT ---
HPI - General Adult General Chief complaint: General Medical Stated complaint: sugar dropping, fainted earlier today Time Seen by Provider: 04/24/24 23:00 Source: patient Mode of arrival: ambulatory Limitations: no limitations History of Present Illness ED Provider: HPI narrative: patient is diabetic on Tresiba and metformin started on maunjaro for last 3 months patient's HbA1c was 6.1 in January still taking Tresiba 48 units in a.m. and metformin not eating much been having multiple episodes of lightheadedness today again she had similar episode of lightheadedness at around 11:00 did not check her blood sugar later when she check her POC by 63 on arrival it was 85 repeat was 103 patient is otherwise feeling normal Related Data Home Medications ?Medication ?Instructions ?Recorded ?Confirmed metformin 500 mg tablet,extended 500 mg PO BID 09/11/21 04/15/24 release 24 hr insulin degludec 100 unit/mL (3 10 unit subcut QAM 06/10/23 04/15/24 mL) subcutaneous pen (Tresiba FlexTouch U-100 insulin) tirzepatide 2.5 mg/0.5 mL 2.5 mg subcut QWEEK 06/10/23 04/15/24 subcutaneous pen injector (Mounjaro) sumatriptan succinate 25 mg tablet 25 mg PO Q2-4H PRN 01/26/24 04/15/24 Previous Rx's ?Medication ?Instructions ?Recorded acetaminophen 650 mg 650 mg PO Q8H #60 tabs 01/21/24 tablet,extended release cholecalciferol (vitamin D3) 125 125 mcg PO DAILY #90 caps 01/26/24 mcg (5,000 unit) capsule thiamine HCl (vitamin B1) 100 mg 100 mg PO DAILY #90 tabs 02/07/24 tablet zinc gluconate 30 mg tablet 30 mg PO DAILY #90 tabs 02/10/24 pantoprazole 40 mg tablet,delayed 40 mg PO DAILY #30 tabs 03/30/24 release Allergies Allergy/AdvReac Type Severity Reaction Status Date / Time Seasonal Allergies Allergy Mild Runny Nose Verified 04/24/24 22:40 No Known Drug Allergies Allergy Unknown none Verified 04/24/24 22:40 Review of Systems Review of Systems: Yes all other systems are reviewed and are negative PMFSH Past Medical History Medical History Migraines Insulin dependent type 2 diabetes mellitus BMI 32.0-32.9,adult Obstructive sleep apnea Gallstones Body mass index (BMI) of 38.0 to 38.9 in adult Obesity Type 2 diabetes mellitus Surgical History History of esophagogastroduodenoscopy (EGD) History of cholecystectomy H/O tubal ligation History of surgery on wrist Hx of section Family History Family History Father HTN (hypertension) Mother No problems noted. Sister Arthritis Knee problem Sister Arthritis Allergies Knee problem Brother No problems noted. Brother No problems noted. Son No problems noted. Son Autism Family/Other Breast cancer Social History Social History Alcohol intake: never Patient Tobacco Use Status: Never used Tobacco Advance Directives: No Do you have a plan to hurt others: No Plan Physical Exam ED Vital Signs: Vital Signs - 24 hr 04/24/24 22:37 04/25/24 00:19 Temperature 98.0 F 98.5 F Pulse Rate 91 95 Respiratory Rate 16 16 Blood Pressure 98/60 95/68 Pulse Oximetry 97 95 Oxygen Delivery Method Room Air Room Air BMI result Body Mass Index 32.0 Appearance: Alert. Oriented X3. No acute distress. Eyes: PERRLA, No Nystagmus ENT: Pharynx normal. Oral Mucosa moist Neck: Normal inspection. Neck supple. CVS: Normal heart rate and rhythm. Pulses normal. Respiratory: No respiratory distress. Equal air entry bilateral, no wheezing/rales/rhonchi Abdomen: Soft and nontender. Bowel sounds are present, no mass palpable, no CVA tenderness Skin: Skin warm and dry. Normal skin color. Normal skin turgor. Extremities: No lower extremity edema. No calf tenderness Neuro: Oriented X 3. No motor deficit. No sensory deficit.No cerebellar signs , cranial nerves II-XII intact Medical Decision Making Medical Decision Making MDM Narrative: patient is on weight loss treatment plan and diabetic on Tresiba metformin which doses have not been decreased despite patient not eating last HbA1c was 6.1 patient advised to stop metformin and decrease the dose of Tresiba to 40 units and sugar and follow up with PCP Lab Data MDM Lab Attestation statement: I reviewed the patient's lab results. 04/24/24 22:57 04/24/24 22:57 Labs: Lab Results 04/24/24 04/24/24 04/24/24 Range/Units 22:37 22:57 23:51 WBC 9.2 (4.8-10.8) X10*3/uL RBC 4.64 (4.20-5.50) X10*6/uL Hgb 11.5 L (12.0-16.0) g/dl Hct 34.9 L (37.0-47.0) % MCV 75.2 L (80.0-98.0) fL MCH 24.8 L (27.0-33.0) pg MCHC 33.0 (31.0-35.0) g/dl RDW 15.3 (11.0-16.0) % Plt Count 281 (160-400) X10*3/uL MPV 9.0 L (9.4-12.3) fL Immature Gran % (Auto) 0.3 (0.0-0.4) % Neut % (Auto) 59.8 (45-73) % Lymph % (Auto) 33.3 (20-40) % Hamilton % (Auto) 5.0 (2-11) % Eos % (Auto) 1.2 (0-4) % Baso % (Auto) 0.4 (0-2) % Lymph # (Auto) 3.1 (1.2-4.9) X10*3/uL Hamilton # (Auto) 0.5 (0.1-1.2) X10*3/uL Eos # (Auto) 0.1 (0.0-0.4) X10*3/uL Baso # (Auto) 0.0 (0.0-0.2) X10*3/uL Abs Immat Gran (auto) 0.03 (0.00-0.03) X10*3/uL Absolute Neuts (auto) 5.5 (2.0-8.3) x10*3/uL Absolute Nucleated RBC 0.000 (0.0-0.012) X10*3/uL Nucleated RBC % (auto) 0.0 (0.0-0.2) /100WBC Sodium 142 (135-145) mmol/L Potassium 3.9 (3.3-5.1) mmol/L Chloride 109 H (96-108) mmol/L Carbon Dioxide 24 (22-29) mmol/L Anion Gap 13 (12-20) BUN 17 H (9-16) mg/dL Creatinine 0.71 (0.5-1.4) mg/dL Estim Creat Clear Calc 110.9 Estimated GFR > 60 POC Glucose 85 103 (60-115) mg/dL Random Glucose 96 (60-115) mg/dL Calcium 8.7 (8.4-10.2) mg/dL Total Bilirubin 0.3 (0.0-1.0) mg/dL AST 22 (5-31) U/L ALT 15 (0-31) U/L Alkaline Phosphatase 77 (39-117) U/L Total Protein 7.5 (6.5-8.0) g/dL Albumin 3.6 (3.5-5.0) g/dL Discharge Plan Discharge Clinical Impression: Diabetic hypoglycemia Patient Disposition: Home, Self-Care Instructions: Hypoglycemia in a Person with Diabetes (ED) Additional Instructions: stop metformin decrease the dose of Tresiba to 40 units daily check your blood sugar more often have frequent small meals speak to your PCP about decreasing the dose of Tresiba further if blood sugar continued to decrease Prescriptions: No Action thiamine HCl (vitamin B1) 100 mg tablet 100 mg PO DAILY Qty: 90 0RF zinc gluconate 30 mg tablet 30 mg PO DAILY Qty: 90 0RF pantoprazole 40 mg tablet,delayed release (DR/EC) 40 mg PO DAILY Qty: 30 6RF metformin 500 mg tablet extended release 24 hr 500 mg PO BID Mounjaro 2.5 mg/0.5 mL pen injector 2.5 mg subcut QWEEK insulin degludec [Tresiba FlexTouch U-100] 100 unit/mL (3 mL) insulin pen 10 unit subcut QAM Patient Comments: 1/2 dose acetaminophen 650 mg tablet extended release 650 mg PO Q8H Qty: 60 1RF sumatriptan succinate 25 mg tablet 25 mg PO Q2-4H PRN Rx Instructions: do not exceed 8 doses per 24 hrs cholecalciferol (vitamin D3) 125 mcg (5,000 unit) capsule 125 mcg PO DAILY Qty: 90 0RF Interventions: ED Discharge Assessment Last Done: 04/25/24 00:19 Discharge Date/Time: 04/25/24 00:20 Print Language: Azeri
--- NOTE | 2024-04-24 23:54 | PC.NURSE ---
this rn assumed care of pt, pt a&ox4, respirations even and unlabored. POC obtained. at bedside with pt.
[2024-04-24 23:56] LABS: Glucose, Whole Blood 103 mg/dL (60-115)
[2024-04-25 00:19] VITALS: BP 95/68; PULSE 95; RESP 16; TEMP 36.9; O2SAT 95
== END 2024-04-25 00:20 | disposition home or self-care (01) ==
PROVIDERS: Emergency Provider Internal Medicine; PCP Family Medicine
DX: E11.649 Type 2 diabetes mellitus with hypoglycemia without coma (principal); Z79.4 Long term (current) use of insulin; Z79.84 Long term (current) use of oral hypoglycemic drugs; Z79.899 Other long term (current) drug therapy
CPT/HCPCS: 36415; 80053; 82947; 85025; 93005; 99283

== ENCOUNTER → 2024-04-24 22:43 | Outpatient (BNV) | payer MEDICAID, SELFPAY | PROVIDERS: Emergency Provider Internal Medicine; PCP Family Medicine; Visit Provider Internal Medicine | DX: R55 Syncope and collapse (principal) | CPT/HCPCS: 93010 ==

== ENCOUNTER 2024-04-30 09:16 | Outpatient (AMB) | payer MEDICAID, SELFPAY ==
[2024-04-30 09:24] VITALS: BP 88/60; PULSE 96; O2SAT 100; BMI 33.1
--- NOTE | 2024-04-30 09:24 | A.OFFVIS_ITS ---
Vital Signs 04/30/24 09:24 Height 5 ft 2 in Weight 180 lb 12.465 oz BMI 33.1 BP 88/60 L Blood Pressure Location Rt brachial Position Sitting Pulse 96 Pulse Source Pulse Oximeter Pulse Oximetry (%) 100 Oxygen Delivery Method Room Air Intake Visit Reasons: T2DM Intake Note: NEW Patient presents today to establish treatment for Type 2 Diabetes Mellitus: Last Diabetic eye exam was on: 01/2024 Last Podiatry exam was on: Patient does not see a Activity Coordinator Most recent HbA1c: 6.5%, 04/30/2024 Random Glucose- 134 mg/dL, Today Jewelry Repairer Required: No Accompanied by: Self / Same As Patient Allergies Seasonal Allergies Allergy (Mild, Verified 04/30/24 09:27) Runny Nose No Known Drug Allergies Allergy (Unknown, Verified 04/30/24 09:27) none Medication List - Last Reconciled 04/30/24 by Kimberly Isaac PA-C acetaminophen ER 650 mg PO Q8H cholecalciferol (vitamin D3) 125 mcg PO DAILY insulin degludec (Tresiba FlexTouch U-100 insulin) 35 units subcut QAM pantoprazole 40 mg PO DAILY sumatriptan succinate 25 mg PO Q2-4H PRN thiamine HCl (vitamin B1) 100 mg PO DAILY zinc gluconate 30 mg PO DAILY HPI HPI T2DM: Details: Patient is a 34-year-old female with a significant past medical history of type 2 diabetes, obesity, depression and Sen's esophagus presenting today for initial visit regarding diabetes. Endo: She was diagnosed with diabetes around age 26. Her last A1c was 6.1 at the hospital and today it is 6.5. She is currently on metformin 500 mg twice a day, Tresiba 35 units daily Mounjaro 7.5 mg weekly. In the past she has trialed Trulicity but had issues with supply at higher dose and had some nausea higher doses. States that she has never had issues with insurance covering Tresiba or metformin. recently d/c metformin at the ER for hypoglycemia and reduced on her Tresiba from 44 units to 35 units. She says that this is stressing her out because being off of the metformin she has some constipation and also she is noticing her blood sugars are a little bit higher. cgm-8 % hyperglycemic and 92% in range. No recent hypoglycemic events on cgm. however, a week ago she went to the emergency room for hypotension, hypoglycemia and syncope in the shower. CV: Blood pressure today in the office is 88/60. repeated 94/60. She is asymptomatic. She says that this is not uncommon for her and she does check it at home and it is usually about 110/70. She has a cough and states that she will check when she gets home. She has made a point to be better hydrated.. Last cholesterol was unknown but she believes normal because this is closely managed by her PCP. [facility] Medical History Migraines Insulin dependent type 2 diabetes mellitus BMI 32.0-32.9,adult Obstructive sleep apnea Gallstones Body mass index (BMI) of 38.0 to 38.9 in adult Obesity Type 2 diabetes mellitus Surgical History History of esophagogastroduodenoscopy (EGD) History of cholecystectomy H/O tubal ligation History of surgery on wrist Hx of section Family History Father HTN (hypertension) Mother No problems noted. Sister Arthritis Knee problem Sister Arthritis Allergies Knee problem Brother No problems noted. Brother No problems noted. Son No problems noted. Son Autism Family/Other Breast cancer Social History Alcohol intake: never Patient Tobacco Use Status: Never used Tobacco Physical Exam Vital Signs: Last Vital Signs Pulse 96 04/30/24 09:24 BP 88/60 L 04/30/24 09:24 Pulse Ox 100 04/30/24 09:24 Oxygen Delivery Method Room Air 04/30/24 09:24 BMI result Body Mass Index 33.1 Const Orientation/consciousness: patient oriented x3 Neck Neck: Yes no lymphadenopathy Thyroid: Thyroid normal Carotids: no bruits Resp Auscultation: clear to auscultation bilaterally Cardio Rate: regular rate Rhythm: regular rhythm Heart sounds: S1 normal heart sound present and S2 normal heart sound present Peripheral pulses: dorsalis pedis present Neuro General: patient oriented x3, gait normal and no focal motor deficits Extrem Other: Monofilament sensation intact bilaterally. Vibratory sensation intact bilaterally. Skin intact. General: Yes normal to inspection Results AMB Hemoglobin A1c AMB Hemoglobin A1c 6.5 % Last Edit by STARLA Clark on 04/30/24 09:55 Results Reviewed Results Reviewed: Laboratory Last Values Glucose (Clinic) 134 mg/dL (60-115) H 04/30/24 09:39 Hgb A1c (Clinic) 6.5 % (4.0-6.0) H 04/30/24 09:42 Assessment & Plan Assessment & Plan (1) Insulin dependent type 2 diabetes mellitus: Code(s): E11.9 - Type 2 diabetes mellitus without complications; Z79.4 - prison (current) use of insulin Category: Medical Plan: We spent 65 minutes in [id number] time today discussing the differences between type 1 and type 2 diabetes, pathophysiology of diabetes, complications associated with diabetes including but not limited to increased risk of stroke, heart attack, amputations, neuropathy, nephropathy etc.. We reviewed her recent ER visit. Reduce Tresiba 10 units Increase Mounjaro to 10 mg weekly Restart metformin 500 mg twice a day. (2) Hypoglycemia due to type 2 diabetes mellitus: Code(s): E11.649 - Type 2 diabetes mellitus with hypoglycemia without coma Category: Medical Plan: Rule of 15 reviewed. Nasal spray ordered. (3) Hypotension: Code(s): I95.9 - Hypotension, unspecified Category: Medical Plan: Discussed that blood pressures on the lower side today. She is asymptomatic. She is going to increase hydration and monitor blood pressures at home. We discussed trying compression stockings if blood pressures are low and follow up with PCP. Orders: Orders AMB Hemoglobin A1c Today E11.9 - Type 2 diabetes mellitus without complications, Z79.4 - long term care phlebotomist (current) use of insulin Medications: New tirzepatide (Mounjaro) 10 mg (0.5 mL) subcut QWEEK 2 mL 5RF metformin 500 mg PO BID 180 tabs 0RF tirzepatide (Mounjaro) 10 mg (0.5 mL) subcut QWEEK 2 mL 5RF glucagon 3 mg/actuation 3 mg intranasal ONCE 2 ea 5RF insulin degludec (Tresiba FlexTouch U-100 insulin) 10 units (0.1 mL) subcut QAM 15 mL 4RF Patient Instructions: increase mounjaro to 10 mg weekly restart meformin 500 mg bid reduce tresiba from 35 units to 10 units Coding Level of Care Code New Pt Level 5 (81180) Complex EM visit Add On G2211 Diagnoses Insulin dependent type 2 diabetes mellitus E11.9; Z79.4 Hypoglycemia due to type 2 diabetes mellitus E11.649 Hypotension I95.9
[2024-04-30 09:43] LABS: Glucose, Whole Blood 134 mg/dL (60-115)
== END 2024-04-30 10:16 | disposition home or self-care (01) ==
LOC: HO.ENCR 09:16
PROVIDERS: PCP Family Medicine; Visit Provider Physician Assistant
DX: E11.9 Type 2 diabetes mellitus without complications (principal); Z79.4 Long term (current) use of insulin; E11.649 Type 2 diabetes mellitus with hypoglycemia without coma; I95.9 Hypotension, unspecified

== ENCOUNTER → 2024-04-30 09:16 | Outpatient (BNVA) | payer MEDICAID, SELFPAY | PROVIDERS: PCP Family Medicine; Visit Provider Physician Assistant | DX: E11.649 Type 2 diabetes mellitus with hypoglycemia without coma (principal); I95.9 Hypotension, unspecified; Z79.4 Long term (current) use of insulin | CPT/HCPCS: 82947; 83036; 99212 ==

== ENCOUNTER 2024-05-07 14:47 | Outpatient (AMB) | payer MEDICAID, SELFPAY ==
[2024-05-07 14:59] VITALS: BP 100/74; PULSE 81; O2SAT 98; BMI 32.3
--- NOTE | 2024-05-07 14:59 | A.OFFVIS_ITS ---
Vital Signs 05/07/24 14:59 Height 5 ft 2 in Weight 176 lb 5.917 oz BMI 32.3 BP 100/74 Blood Pressure Location Rt brachial Position Sitting Pulse 81 Pulse Source Pulse Oximeter Pulse Oximetry (%) 98 Oxygen Delivery Method Room Air Intake Visit Reasons: Insulin dependent type 2 diabetes mellitus Intake Note: Patient presents today for a follow-up on Type 2 Diabetes Mellitus: Last Diabetic eye exam was on: 01/2024 Last Podiatry exam was on: Patient does not see a Odd Piece Checker Most recent HbA1c: 6.5%, 04/30/2024 Random Glucose- 94 mg/dL, Today Sap Fico Architect Required: No Accompanied by: Self / Same As Patient Allergies Seasonal Allergies Allergy (Mild, Verified 05/07/24 15:00) Runny Nose No Known Drug Allergies Allergy (Unknown, Verified 05/07/24 15:00) none Medication List - Last Reconciled 05/07/24 by Kimberly Isaac PA-C acetaminophen ER 650 mg PO Q8H cholecalciferol (vitamin D3) 125 mcg PO DAILY glucagon 3 mg/actuation 3 mg intranasal ONCE insulin degludec (Tresiba FlexTouch U-100 insulin) 10 units (0.1 mL) subcut QAM metformin 500 mg PO BID pantoprazole 40 mg PO DAILY sumatriptan succinate 25 mg PO Q2-4H PRN thiamine HCl (vitamin B1) 100 mg PO DAILY tirzepatide (Mounjaro) 10 mg (0.5 mL) subcut QWEEK zinc gluconate 30 mg PO DAILY HPI HPI Insulin dependent type 2 diabetes mellitus: Details: Patient is a 34-year-old female with a significant past medical history of type 2 diabetes, obesity, depression and Sen's esophagus presenting today for follow up visit regarding diabetes. Endo: She was diagnosed with diabetes around age 26. Her last A1c was 6.1 at the hospital and today it is 6.5. She is currently on metformin 500 mg twice a day, Tresiba 10 units daily Mounjaro 10 mg weekly. -when she took the 10 mg of the Mounjaro she did have a day of nausea and vomiting which has since resolved. She repeated the dose today and states that she has no symptoms. She says she took the higher dose and had a large, heavy meal as she thinks that that triggered it. In the past she has trialed Trulicity but had issues with supply at higher dose and had some nausea higher doses. States that she has never had issues with insurance covering Tresiba or metformin. cgm-just started a new sensor today. She was 10% hyperglycemic at 90% in range. CV: Blood pressure today is 100/74. [facility] Medical History Migraines Insulin dependent type 2 diabetes mellitus BMI 32.0-32.9,adult Obstructive sleep apnea Gallstones Body mass index (BMI) of 38.0 to 38.9 in adult Obesity Type 2 diabetes mellitus Surgical History History of esophagogastroduodenoscopy (EGD) History of cholecystectomy H/O tubal ligation History of surgery on wrist Hx of section Family History Father HTN (hypertension) Mother No problems noted. Sister Arthritis Knee problem Sister Arthritis Allergies Knee problem Brother No problems noted. Brother No problems noted. Son No problems noted. Son Autism Family/Other Breast cancer Social History Alcohol intake: never Patient Tobacco Use Status: Never used Tobacco Physical Exam Vital Signs: Last Vital Signs Pulse 81 05/07/24 14:59 BP 100/74 05/07/24 14:59 Pulse Ox 98 05/07/24 14:59 Oxygen Delivery Method Room Air 05/07/24 14:59 BMI result Body Mass Index 32.3 Const Orientation/consciousness: patient oriented x3 HEENT Ears: hearing grossly normal bilaterally Neck Thyroid: Thyroid normal Lymphatic: no lymphadenopathy noted Resp Auscultation: clear to auscultation bilaterally Cardio Rate: regular rate Rhythm: regular rhythm Heart sounds: S1 normal heart sound present and S2 normal heart sound present Skin General skin exam: no rashes or lesions noted Neuro General: patient oriented x3, gait normal and no focal motor deficits Assessment & Plan Assessment & Plan (1) Hypoglycemia due to type 2 diabetes mellitus: Code(s): E11.649 - Type 2 diabetes mellitus with hypoglycemia without coma Category: Medical Plan: Stop Tresiba Continue metformin and Darren Advised short term follow up in 1 month. Sooner if needed. She will call me she gets any episodes of hypoglycemia. (2) Hypotension: Code(s): I95.9 - Hypotension, unspecified Category: Medical Plan: WNL today. Medications: Discontinued insulin degludec (Tresiba FlexTouch U-100 insulin) Discontinued Reason: Doctor's Order 10 units (0.1 mL) subcut QAM 15 mL 4RF Coding Level of Care Code Est Pt Level 4 (30338) Complex EM visit Add On G2211 Diagnoses Hypoglycemia due to type 2 diabetes mellitus E11.649 Hypotension I95.9
[2024-05-07 15:16] LABS: Glucose, Whole Blood 94 mg/dL (60-115)
== END 2024-05-07 15:26 | disposition home or self-care (01) ==
LOC: HO.ENCR 14:47
PROVIDERS: PCP Family Medicine; Visit Provider Physician Assistant
DX: E11.649 Type 2 diabetes mellitus with hypoglycemia without coma (principal); I95.9 Hypotension, unspecified

== ENCOUNTER → 2024-05-07 14:47 | Outpatient (BNVA) | payer MEDICAID, SELFPAY | PROVIDERS: PCP Family Medicine; Visit Provider Physician Assistant | DX: E11.649 Type 2 diabetes mellitus with hypoglycemia without coma (principal); I95.9 Hypotension, unspecified | CPT/HCPCS: 82947; 99212 ==

== ENCOUNTER 2024-05-24 14:44 | Outpatient (AMB) | payer MEDICAID, SELFPAY ==
[2024-05-24 14:45] VITALS: BP 84/56; PULSE 96; O2SAT 98; BMI 32.2
--- NOTE | 2024-05-24 14:45 | A.OFFVIS_ITS ---
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 Endo: She was diagnosed with diabetes around age 26. Her last A1c was 6.1 at the hospital and today it is 6.5. She is currently on metformin 500 mg twice a day and mounjaro 10 mg weekly. In the past she has trialed Trulicity but had issues with supply at higher dose and had some nausea higher doses. States that she has never had issues with insurance covering Tresiba or metformin. cgm-she is due to start a sensor today. Her blood sugars have been elevated since discontinuing the Tresiba. She states that she has also been off of the Mounjaro for the last few days because she is going for left shoulder surgery. CV: Blood pressure today is 84/56. Repeated blood pressure is similar 90/60. She is asymptomatic.. [facility] Medical History (Updated 05/21/24 @ 11:00 by Sol Killian RN) Fatty liver GERD (gastroesophageal reflux disease) Anxiety Depression Insulin dependent type 2 diabetes mellitus Migraines BMI 32.0-32.9,adult Gallstones Body mass index (BMI) of 38.0 to 38.9 in adult Obesity Surgical History History of esophagogastroduodenoscopy (EGD) History of cholecystectomy H/O tubal ligation History of surgery on wrist Hx of section Family History Father HTN (hypertension) Mother No problems noted. Sister Arthritis Knee problem Sister Arthritis Allergies Knee problem Brother No problems noted. Brother No problems noted. Son No problems noted. Son Autism Family/Other Breast cancer Social History Household Members Other:: minor children Are you a primary long term care phlebotomist to a significant other at home: Yes Do you presently have visiting nurse or other home services: No Alcohol intake: never Patient Tobacco Use Status: Never used Tobacco Current occupation: rt handed Physical Exam Vital Signs: Last Vital Signs Pulse 96 05/24/24 14:45 BP 84/56 L 05/24/24 14:45 Pulse Ox 98 05/24/24 14:45 Oxygen Delivery Method Room Air 05/24/24 14:45 BMI result Body Mass Index 32.2 Const Orientation/consciousness: patient oriented x3 HEENT Ears: hearing grossly normal bilaterally Neck Thyroid: Thyroid normal Lymphatic: no lymphadenopathy noted Resp Auscultation: clear to auscultation bilaterally Cardio Rate: regular rate Rhythm: regular rhythm Heart sounds: S1 normal heart sound present and S2 normal heart sound present Skin General skin exam: no rashes or lesions noted Neuro General: patient oriented x3, gait normal and no focal motor deficits Results Reviewed Results Reviewed: Laboratory Last Values Glucose (Clinic) 168 mg/dL (60-115) H 05/24/24 14:51 Laboratory Tests 01/26/24 04/24/24 04/24/24 10:46 22:57 23:51 Sodium 142 Potassium 3.9 Chloride 109 H Carbon Dioxide 24 Anion Gap 13 BUN 17 H Creatinine 0.71 Estim Creat Clear Calc 110.9 Estimated GFR > 60 Glucose (Clinic) POC Glucose 103 Hgb A1c (Clinic) AST 22 ALT 15 Alkaline Phosphatase 77 Triglycerides 152 H Cholesterol 147 LDL Cholesterol, Calc 87 HDL Cholesterol 30 L 04/30/24 05/07/24 09:42 15:06 Sodium Potassium Chloride Carbon Dioxide Anion Gap BUN Creatinine Estim Creat Clear Calc Estimated GFR Glucose (Clinic) 94 POC Glucose Hgb A1c (Clinic) 6.5 H AST ALT Alkaline Phosphatase Triglycerides Cholesterol LDL Cholesterol, Calc HDL Cholesterol Assessment & Plan Assessment & Plan (1) Hypoglycemia due to type 2 diabetes mellitus: Code(s): E11.649 - Type 2 diabetes mellitus with hypoglycemia without coma Category: Medical Plan: Restart Tresiba. Currently hold the Mounjaro until after surgery. Continue with metformin. Short term follow up in 1 month. Sooner if needed. (2) Hypotension: Code(s): I95.9 - Hypotension, unspecified Category: Medical Plan: Advised to hydrate. She is asymptomatic. Advised to contact PCP and follow up. Patient Instructions: restart tresiba 10 units -take half the dose the day before surgery call your surgeon to tell them continue metformin 500 mg twice a day ok to restart mounjaro after surgery if you are not feeling sick let the surgeon know about low bp. Coding Level of Care Code Est Pt Level 4 (18266) Diagnoses Hypoglycemia due to type 2 diabetes mellitus E11.649 Hypotension I95.9
[2024-05-24 14:55] LABS: Glucose, Whole Blood 168 mg/dL (60-115)
--- OUTSIDE RECORDS SUMMARY | 2024-05-24 17:14 | XMS_ITS | Encounter Summary ---
Author Organization [facility] Address [address] [place] [address] [address] [place] [address] Care Team Providers Care Limited Radiology Technician Name Role Phone Cinthya Ray MD Primary Care Provider [phone] Mayito Acuña PharmD Unavailable [phone] Reason for Referral * Consultation (Routine) - Closed Specialty Diagnoses / Procedures Referred By Contcarly t Referred To Contact Orthopaedic Surgery Diagnoses Chronic left shoulder pain Cinthya Ray MD [address] [place] [address] Phone: tel: fax: [facility] [address] [place] [address] Phone: tel: Referral ID Status Reason Start Date Expiration Date V isits Requested Visits Authorized [id number] Closed Specialty Services Required 02/05/2024 02/04/2025 6 6 Encounter Details Date Type Department Care Team (Late st Contact Info) Description 02/05/2024 Orders Only [facility] MEDICINE [address] [place] [id number] Cinthya Ray MD [address], [place] [phone] Chronic left shoulder pain (Primary Dx) Social [...] Care Team (Late st Contact Info) Description 07/30/2024 3:00 PM EDT Office Visit [facility] [address] [place] [address] Demario Bocanegra Scheduled Referrals Name Type Priority Associated Diagnoses Order Schedule Referral to Orthopaedic Surgery Outpatient Referral Routine Chronic left shoulder pain Expected: 02/05/2024 (Approximate), Expires: 02/04/2025 documented as of this encounter Goals Goal Patient Goal Type Associated Problems Recent Progress Patient-Stated? Author Blood Pressure < 140/90 Blood Pressure 104/66(2024 3:34 PM EDT) No Mayito Acuña PharmD Hemoglobin A1c < 7 Result Component 6.5( 3:35 PM EDT) No Mayito Acuña PharmD documented as of this encounter Visit Diagnoses Diagnosis Chronic left shoulder pain- Primary Pain in joint, shoulder region documented in this encounter Additional Health Concerns Assessment Noted Time PHQ-9 Depression Total Score: 11 024 9:48 AM EDT documented as of this encounter Care Teams Limited Radiology Technician Relationship Specialty Start Date End Date Cinthya Ray MD [address] [place] [address] PCP - General Family Medicine 10/23/11 Mayito Acuña, Citlali [address] [place] [address] Pharmacist Internal Medicine 03/07/23 04/22/24 documented as of this encounter
--- OUTSIDE RECORDS SUMMARY | 2024-05-24 17:14 | XMS_ITS | Encounter Summary ---
Author Organization [facility] [employer] [facility] Address [address] [place] [address] 7 [place] [address] Care Team Providers Care Deep Submergence Vehicle Crewmember Name Role Phone Cinthya Ray MD Primary Care Provider [phone] Mayito Acuña PharmD Unavailable [phone] Reason for Visit * Reason Onset Date Comments triage 04/10/2022 Encounter Details Date Type Department Care Team (Late st Contact Info) Description 04/10/2022 Telephone [facility] MEDICINE [address] [place], [place] [phone] Cinthya Ray MD [address] [place], [place] [phone] triage Social History Tobacco Use Types Packs/Day [...] Description 07/30/2024 3:00 PM EDT Office Visit [facility] [address] [place] [address] Demario Bocanegra documented as of this encounter Visit Diagnoses Not on filedocumented in this encounter Care Teams Deep Submergence Vehicle Crewmember Relationship Specialty Start Date End Date Cinthya Ray MD [address] [place] [address] PCP - General Family Medicine 10/23/11 Mayito Acuña, PharmD [address] [place] [phone] Pharmacist Internal Medicine 03/07/23 04/22/24 documented as of this encounter
--- OUTSIDE RECORDS SUMMARY | 2024-05-24 17:14 | XMS_ITS | Encounter Summary ---
Author Organization [employer] Address [address] [facility] 7 [place] [address] Care Team Providers Care Senior Sales Associate Name Role Phone Cinthya Ray MD Primary Care Provider [phone] Mayito Acuña PharmD Unavailable [phone] Encounter Details Date Type Department Care Team (Late st Contact Info) Description 03/05/2024 Orders Only [facility] MEDICINE [address] [place], [place] [phone] Cinthya Ray MD [address] [place], [place] [phone] Type 2 diabetes mellitus with other specified complication, with long-term current use of insulin ([facility]) (Primary Dx) Social [...] 07/30/2024 3:00 PM EDT Office Visit [facility] [address] [place] [address] Demario Bocanegra documented as of this encounter Goals Goal Patient Goal Type Associated Problems Recent Progress Patient-Stated? Author Blood Pressure < 140/90 Blood Pressure 104/66(2024 3:34 PM EDT) No Mayito Acuña, PharmD Hemoglobin A1c < 7 Result Component 6.5( 3:35 PM EDT) No Mayito Acuña, PharmD documented as of this encounter Visit Diagnoses Diagnosis Type 2 diabetes mellitus with other specified complication, with long-term current use of insulin ([facility])- Primary documented in this encounter Additional Health Concerns Assessment Noted Time PHQ-9 Depression Total Score: 11 024 9:48 AM EDT documented as of this encounter Care Teams Senior Sales Associate Relationship Specialty Start Date End Date Cinthya Ray MD [address] [place] [address] PCP - General Family Medicine 10/23/11 Mayito Acuña, DyanD [address] [place] [address] Pharmacist Internal Medicine 03/07/23 04/22/24 documented as of this encounter
--- OUTSIDE RECORDS SUMMARY | 2024-05-24 17:14 | XMS_ITS | Clinical Summary ---
Author Organization [employer] Address [address] [place] [address] 7 [place] [address] Care Team Providers Care Plant Cytologist Name Role Phone Cinthya Ray MD Primary Care Provider [phone] Allergies No known active allergies Medications * This document contains information received from the source organization and may not represent a complete record from that organization. Alcohol Swabs (Alcohol Prep) 70 % padsIndications: Type 2 diabetes mellitus with hyperglycemia ([facility]) USE FOUR TIMES DAILY AND NEEDED 100 each 11 023 Active TRUEplus Lancets 33G miscIndications: Type 2 diabetes mellitus with hyperglycemia ([facility]) TEST BLOOD SUGAR FOUR TIMES DAILY [...] not rinse. 112 g 1 024 Active ibuprofen 600 MG tablet TAKE 1 TABLET BY MOUTH IN THE MORNING, AT NOON AND AT BEDTIME IF NEEDED FOR MILD PAIN 90 tablet 024 Active SUMAtriptan (Imitrex) 25 MG tabletIndication s:Injury of head, initial encounter TAKE 1 TAB ORALLY AFTER MIGRAINE ONSET MAY REPEAT AFTER 2HRS IF HEADACHE RETURNS,MAX 200MG IN 24HRS 9 tablet 024 Active Glucose 2 g chewable tabletIndication s:Type 2 diabetes mellitus with hyperglycemia, with long-term current use of insulin (CMS/HCC) Chew 2 g Once per day. To [...] ONCE A WEEK DIRECTED 2 mL 5 025 Active metFORMIN XR (Glucophage-XR) 500 MG 24 hr tablet TAKE 2 TABLETS BY MOUTH TWICE DAILY WITH BREAKFAST AND WITH DINNER. DO NOT BREAK, CRUSH, 360 tablet 1 025 Active Continuous Glucose Accounts Payable Manager (FreeStyle Audrey 3 [place]) deviceIndication s:Type 2 diabetes mellitus with hyperglycemia, with long-term current use of insulin (CMS/HCC) 1 each Once per day. Use as directed for CGM 1 each 025 Active Continuous Glucose Sensor (FreeStyle Audrey 3 Plus Sensor) miscIndications: Type 2 diabetes mellitus with hyperglycemia, with long-term current use of insulin (CMS/HCC) 1 each every 15 days. Apply 1 every 15 days as directed for CGM 2 each 025 Active insulin degludec (Tresiba FlexTouch) 100 UNIT/ML injectionIndicat ions:Type 2 diabetes mellitus with hyperglycemia, without long-term current use of insulin (CMS/HCC) INJECT 35 UNITS SUBCUTANEOUSLY ONCE EVERY DAY, may increase by 2 units every 72 hours for fasting blood sugar above 130. MAX DAILY DOSE 45 UNITS PER DAY PATIENT CAN INJECT. 45 mL 3 03/18/2 025 Active insulin pen needle (BD Pen Needle Rowena 2nd Gen) 32G x 4 mm misc USE WITH INSULIN ONCE A DAY 100 each 11 025 Active ondansetron (Zofran) 4 MG tablet Take 1 tablet (4 mg) by mouth every 8 (eight) hours if needed for nausea or vomiting. 30 tablet 025 Active insulin degludec (Tresiba FlexTouch) 100 UNIT/ML injectionIndicat ions:Type 2 diabetes mellitus with hyperglycemia, without long-term current use of insulin (CMS/[facility]) INJECT 48 UNITS SUBCUTANEOUSLY ONCE EVERY DAY 45 mL 3 024 2024 Discontinued insulin pen needle (BD Pen Needle Rowena 2nd Gen) 32G x 4 mm misc USE WITH INSULIN ONCE A DAY 100 each 11 025 2024 Discontinued(R eorder (will not trigger notification to Pharmacy)) insulin degludec (Tresiba FlexTouch) 100 UNIT/ML injectionIndicat ions:Type 2 diabetes mellitus with hyperglycemia, without long-term current use of insulin ([facility]) INJECT 35 UNITS SUBCUTANEOUSLY ONCE EVERY DAY, may increase by 2 units every 72 hours for fasting blood sugar above 130. 45 mL 3 025 2024 Discontinued Active Problems Problem Noted Date Diagnosed Date Hypotension 05/04/2024 Assessment & Plan (05/04/2024 4:51 AM EDT): - Goal BP <140/90 per JNC-8 and <130/80 per ACC/AHA Guidelines - Usually soft BP - Recently had a syncopal episode, likely vasovagal - has not started ARB or ACEI for renal protection (patient had BTL, but BP is low) - discussed about the importance of adequate food and fluid intake, and possibly reducing GLP1RA dose. - continue working on lifestyle modifications - encouraged to check BP at home Lower urinary tract symptoms (LUTS) 04/06/2024 Assessment [...] 1 dose and follow-up vaginal swab results Viral upper respiratory infection 02/26/2024 Assessment & [...] left shoulder pain 01/27/2024 Assessment & Plan (05/04/2024 4:55 AM EDT): - following with [facility] - Dx impingement syndrome - completed PT - last seen by Dr. Hays on 04/15/24. Patient gave an informed consent to have elective surgery - scheduled for left shoulder surgery on 06/04/24 Assessment & Plan (01/27/2024 3:42 PM EST): [...] her parents. She had services with [facility] for psychiatry and individual therapy, but lost [...] Plan (11/30/2023 1:26 PM EDT): -Following with [facility], last seen on -06/30/23 EGD Sen esophagus with mild chronic active inflammation, stomach mild chronic inactive inflammation, normal duodenum. -Repeat EGD in 2 years -Continue pantoprazole Assessment & Plan (09/09/2023 6:00 AM EDT): -Following with [facility], last seen on -06/30/23 EGD Sen [...] liver disease (MASLD) 06/13/2023 Assessment & Plan (05/04/2024 5:13 AM EDT): - last abdominal US / elastography 03/04/24. Hepatic steatosis. The median shear wave velocity is 1.33 m/s - FIB-4 index 0.65, cirrhosis less likely - Continue working on lifestyle modifications and optimize chronic disease management Assessment & Plan (11/26/2023 2:16 PM EDT): [...] disease management Tachycardia 03/07/2023 Assessment & Plan (05/04/2024 5:11 AM EDT): - patient seems to have dehydration / volume contraction due to hyperglycemia - evaluated with Holter monitor in Mar 2023, which showed sinus tachycardia - improve glycemic control - possibly due to COVID and/or STELLA Assessment & Plan (11/26/2023 2:16 PM EDT): [...] diagnosis of hypertension 04/04/2022 Assessment & Plan (05/03/2024 3:44 PM EDT): - Goal BP <140/90 per JNC-8 and <130/80 per ACC/AHA Guidelines - BP at goal today - will monitor - consider starting a low dose ARB or ACEI since patient has reliable contraception (BTL). - continue working on lifestyle modifications - encouraged to check BP at home Assessment & Plan (11/30/2023 1:25 PM EDT): [...] mellitus, type 2 02/18/2022 Assessment & Plan (05/04/2024 5:00 AM EDT): - A1C 6.5% on 11/26/23 - A1C 6.1% on 01/26/24 -A1C 6.5% on 05/04/23 - Co-managed with our pharmacist through [facility] - Continue Metformin ER 500 mg twice a day - continue tirzepatide 10 mg weekly. Discussed about lowering dose due to patient's poor PO intake, but patient wants to reach her goal weight to get a bariatric procedure. - Continue basal insulin, Tresiba 10 units - We considered about SGLT-2 inhibitor in [...] considering a bariatric surgery and went to [facility]. She restarted going to [facility]. - She had worked with our diabetes education nurse, Ene Arias from Nov to Dec 2021. - Graduated from [facility]. - Eye exam: 01/28/24. [facility]. Nonregenerative diabetic retinopathy, bilateral, mild. - Comprehensive Foot exam: 11/26/23. Diabetic neuropathy - Lipid profile: 11/26/23 - Microalbumin: 11/26/23 - Dental appt: Recommended to schedule appt. Assessment & Plan (04/26/2024 9:11 AM EDT): Pt with hypoglycemic episode, no med or lifesttyle changes preceding but does not less appetite with mounjaro Last hgb A1c 6.1 Reduce triseba to 35 units (pt had an additional low at 40 units) and may increase by 2 units every 72 hours for three consecutive fasting blood sugar >130 Pt has also stopped metformin per Er rec Assessment & Plan (01/31/2024 7:03 PM EST): [...] considering a bariatric surgery and went to [facility]. She restarted going to [facility]. - She had worked with our diabetes education nurse, Ene Arias from Nov to Dec 2021. - Currently showing good attendance to [facility]; appreciated her effort - Eye exam: 01/24/23 [facility]. No diabetic retinopathy - Comprehensive [...] considering a bariatric surgery and went to [facility] - She had worked with our diabetes education nurse, Ene Arias from Nov to Dec 2021. - Currently showing good attendance to [facility]; appreciated her effort - Eye exam: 01/24/23 [facility]. No diabetic retinopathy - Comprehensive [...] considering a bariatric surgery and went to [facility] - She had worked with our diabetes education nurse, Ene Arias from Nov to Dec 2021. - Currently showing good attendance to [facility]; appreciated her effort - Eye exam: 01/24/23 [facility]. No diabetic retinopathy - Comprehensive [...] considering a bariatric surgery and went to [facility] - She had worked with our diabetes education nurse, Ene Arias from Nov to Dec 2021. - Currently showing good attendance to [facility]; appreciated her effort - Eye exam: 01/24/23 [facility]. No diabetic retinopathy - Comprehensive Foot [...] considering a bariatric surgery and went to [facility] - She had worked with our diabetes education nurse, Ene Arias from Nov to Dec 2021. - Currently showing good attendance to [facility]; appreciated her effort - Eye exam: 01/24/23 [facility]. No diabetic retinopathy - Comprehensive [...] considering a bariatric surgery and went to [facility] - She had worked with our diabetes education nurse, Ene Arias from Nov to Dec 2021. - Refer to [facility] - Eye exam: 01/24/23 [facility]. No diabetic retinopathy - Comprehensive [...] considering a bariatric surgery and went to [facility] - She had worked with our diabetes education nurse, Ene Arias from Nov to Dec 2021. - Eye exam: 01/21/22 [facility]. No diabetic retinopathy - Comprehensive [...] considering a bariatric surgery and went to [facility] - She had worked with our diabetes education nurse, Ene Arias from Nov to Dec 2021. - Eye exam: 01/21/22 [facility]. No diabetic retinopathy - Comprehensive [...] considering a bariatric surgery and went to [facility] - She had worked with our diabetes education nurse, Ene Arias from Nov to Dec 2021. - Eye exam: 01/21/22 [facility]. No diabetic retinopathy - Comprehensive [...] considering a bariatric surgery and went to [facility] - She had worked with our diabetes education nurse, Ene Arias from Nov to Dec 2021. - Eye exam: 01/21/22 [facility]. No diabetic retinopathy - Comprehensive [...] considering a bariatric surgery and went to [facility] - She had worked with our diabetes education nurse, Ene Arias from Nov to Dec 2021. - Eye exam: 01/21/22 [facility]. No diabetic retinopathy - Comprehensive [...] considering a bariatric surgery and went to [facility] - She had worked with our diabetes education nurse, Ene Arias from Nov to Dec 2021. - Eye exam: 01/21/22 [facility]. No diabetic retinopathy - Comprehensive [...] 2021. - completed Partial Hospitalization Program at [facility] 11/09/21 - 11/23/21 - current medication: none -Previous medication treatment Hx: venlafaxine was self-discontinued; trazodone was prescribed by psychiatrist while she was attending [facility], but pt self-discontinued due to ineffectivenss; sertraline 50 mg daily, patient self-discontinued. - previously seeing [facility] clinician and waiting for psychiatrist, patient has not been engaged in behavioral health therapy currently. - contacted by [facility] service and was referred to off-site service - patient has developed healthy coping skills Assessment & Plan (11/30/2023 1:22 PM EDT): - MDD vs. bipolar - severe exacerbation of Depression w/ SI in October 2021. - completed Partial Hospitalization Program at [facility] 11/09/21 - 11/23/21 - current medication: none -Previous medication treatment Hx: venlafaxine was self-discontinued; trazodone was prescribed by psychiatrist while she was attending [facility], but pt self-discontinued due to ineffectivenss; sertraline 50 mg daily, patient self-discontinued. - previously seeing [facility] clinician and waiting for psychiatrist, patient has not been engaged in behavioral health therapy currently. - contacted by [facility] service and was referred to off-site service - patient has developed healthy coping skills Assessment & Plan (03/07/2023 5:55 AM EST): - MDD vs. bipolar - severe exacerbation of Depression w/ SI in October 2021. - completed Partial Hospitalization Program at [facility] 11/09/21 - 11/23/21 - current medication: none -Previous medication treatment Hx: venlafaxine was self-discontinued; trazodone was prescribed by psychiatrist while she was attending [facility], but pt self-discontinued due to ineffectivenss; sertraline 50 mg daily, patient self-discontinued. - previously seeing [facility] clinician and waiting for psychiatrist, patient has not been engaged in behavioral health therapy currently. - will consider referring back Assessment & Plan (11/12/2022 4:17 PM EDT): - severe exacerbation of Depression w/ SI in October 2021. - completed Partial Hospitalization Program at [facility] 11/09/21 - 11/23/21 - Medication: [...] 2021. - completed Partial Hospitalization Program at [facility] 11/09/21 - 11/23/21 - Medication: [...] 2021. - completed Partial Hospitalization Program at [facility] 11/09/21 - 11/23/21 - Medication [...] 2021. - completed Partial Hospitalization Program at [facility] 11/09/21 - 11/23/21 - Medication treatment Hx --venlafaxine was self-discontinued --trazodone was prescribed by psychiatrist while she was attending [facility], but pt self-discontinued due to ineffectivenss - still on waiting list for outpatient appt with psychiatrist and therapist. - Able to contract her safety today - Continue BHS with [facility] Assessment & Plan (04/04/2022 7:17 PM EST): - severe exacerbation of Depression w/ SI in October 2021. - completed Partial Hospitalization Program at [facility] 11/09/21 - 11/23/21 - Medication [...] 2021. - completed Partial Hospitalization Program at [facility] 11/09/21 - 11/23/21 - Medication [...] the morning Obesity 11/04/2011 Assessment & Plan (05/04/2024 4:58 AM EDT): - previously participated weight management program at [facility], recently started seeing them again. - goal of wieght being 171 lbs to get surgery done. - continue working on lifestyle modifications - associated comorbidity: STELLA, diabetes mellitus type 2 - continue GLP1RA - patient is restricting food intake and discussed about its harmful effect. She is on GLP1RA and is having side effects. Will try to consult with both [facility] and surgical weight loss provider. Surgical weight loss is not indicated and patient still may need to take medications. Assessment & Plan (01/27/2024 3:27 PM EST): - previously participated weight management program at [facility], recently started seeing them again. - goal of wieght being 171 lbs to get surgery done. - continue working on lifestyle modifications - associated comorbidity: STELLA, DM2 Assessment & Plan (11/26/2023 2:16 PM EDT): - previously participated weight management program at [facility] - continue working on lifestyle modifications - associated comorbidity: STELLA, DM2 Assessment & Plan (11/18/2022 7:07 AM EDT): - previously participated weight management program at [facility] - continue working on lifestyle modifications - associated comorbidity: STELLA, DM2 Assessment & Plan (04/04/2022 7:14 PM EST): - previously participated weight management program at [facility] - continue working on lifestyle modifications - associated comorbidity: STELLA, DM2 Assessment & Plan (02/22/2022 4:37 PM EST): - previously participated weight management program at [facility] - continue working on lifestyle modifications - [...] Encounters Date Type Department Care Team Description 05/24/[address] [address] Cinthya Ray MD Prior Auth Prescription 05/24/2024 Orders Only GENERIC EXTERNAL DATA DEPARTMENT Provider, Generic External Data 05/07/2024 Orders Only GENERIC EXTERNAL DATA DEPARTMENT Provider, Generic External Data 05/04/[address] [address] Cinthya Ray MD Medication Question 05/03/2024 3:30 PM EDT Office Visit [address] [address] Cinthya Ray MD Metabolic dysfunction-associat ed steatotic liver disease (MASLD) (Primary Dx); Type 2 diabetes mellitus with hypoglycemia without coma, with long-term current use of insulin ([facility]); Decreased sensation of lower extremity; Tachycardia; Hypotension, unspecified hypotension type; Elevated blood pressure reading without diagnosis of hypertension; Chronic left shoulder pain; Dietary counseling; Exercise counseling; Class 1 obesity with serious comorbidity and body mass index (BMI) of 32.0 to 32.9 in adult, unspecified obesity type; Nausea and vomiting, unspecified vomiting type 05/03/2024 Travel 04/30/2024 Orders Only GENERIC EXTERNAL DATA DEPARTMENT Provider, Generic External Data 04/29/[address] [id number] Fauzia Matamoros NP 04/29/[address] [id number] Cinthya Ray MD chart prep 04/27/[address] [id number] Cinthya Ray MD 04/26/2024 8:40 AM EDT Office Visit [facility] [address] [place] [address] Fauzia Matamoros NP Type 2 diabetes mellitus with hypoglycemia without coma, with long-term current use of insulin (CMS/HCC) (Primary Dx); Type 2 diabetes mellitus with hyperglycemia, without long-term current use of insulin (CMS/HCC) 04/26/2024 Refill [facility] [address] [place] [address] Cinthya Ray MD 04/26/2024 Telephone [facility] [address] [place] [address] Rianna Solis, RN NTTS 04/26/2024 Telephone [facility] [address] [place] [address] Cinthya Ray MD 04/26/2024 Travel 04/26/2024 Refill [facility] [address] [place] [address] Fauzia Matamoros NP Type 2 diabetes mellitus with hyperglycemia, without long-term current use of insulin (CMS/HCC) 04/26/2024 Telephone [facility] [address] [place] [phone] Cinthya Ray MD ER Follow-up; Nurse Triage 04/24/2024 Orders Only GENERIC EXTERNAL DATA DEPARTMENT Provider, Generic External Data 04/23/2024 3:30 PM EDT Telemedicine [facility] [address] [place] [phone] Mayito Acuña, [place] Type 2 diabetes mellitus with hyperglycemia, with long-term current use of insulin (CMS/HCC) (Primary Dx) 04/23/2024 Travel 04/23/2024 Population Health Risk Score [facility] Department [address] [place] [id number] Provider, Population Health Generic 04/22/2024 Travel 04/19/2024 Orders Only [facility] [address] [place] [address] Cinthya Ray MD Type 2 diabetes mellitus with hyperglycemia, with long-term current use of insulin (CMS/HCC) (Primary Dx) 04/15/2024 Orders Only [facility] External Provider, [facility] 04/13/2024 Telephone [facility] [address] [place] [address] Lexis Spann MD 04/07/[address] [address] Lexis Spann MD 04/07/2024 Orders Only [address] [address] Lexis Spann MD 04/06/2024 5:00 PM EST Office Visit [facility] [address] [address] Lexis Spann MD Lower urinary tract symptoms (LUTS) (Primary Dx); Vaginal discharge 04/06/2024 Orders Only [address] [address] Lexis Spann MD 04/01/[address] [address] Rianna Solis RNequipment maintenance supervisor 03/23/[address] [address] Cinthya Ray MD Nurse Triage 03/23/[address] [address] Cinthya Ray MD 03/12/2024 Orders Only [facility] External Provider, [facility] 03/12/2024 Refill [facility] [address] [place] [address] Cinthya Ray MD Type 2 diabetes mellitus with hyperglycemia, without long-term current use of insulin ([facility]) 03/05/2024 Orders Only [address] [address] Cinthya Ray MD Type 2 diabetes mellitus with other specified complication, with long-term current use of insulin ([facility]) (Primary Dx) 03/04/[address] [place] [address] Janey Jaramillo MA april recall 03/02/2024 10:00 AM EST Office Visit [facility] [address] [place] [address] Sonali Tellez MD Cough in adult patient 02/26/2024 2:00 PM EST Office Visit [facility] [address] [address] Sonali Tellez MD Viral upper respiratory infection (Primary Dx); Influenza from Last 3 Months Immunizations Name Administration Dates Next Due DTP 05/12/1997, 4,1992,08/16,1992 Hep A, Adult 03/14/2023,11/10/2017 Hep A, ped/adol, 2 dose 01/06/2012 Hep B, Adolescent or Pediatric 12/22/1995,1994,10/19/1993 Hib ([facility]) 05/14/1993, 3,1992,04/12 IPV 05/12/1997, 4,1992,04/12 Influenza injectable [...] Answer Date Recorded Patient Health Questionnaire-9 Score 14 05/03/2024 Patient Health Questionnaire-9 Score 14 05/03/2024 Last PHQ-9: Questionnaire Data Not on file 0 05/03/2024 Housing Stability Answer Date Recorded What is [...] Answer Date Recorded Patient Health Questionnaire-2 Score 3 05/03/2024 Comments Unknown Sex and Gender Information Value Date Recorded Sex Assigned at Female 12/10/2021 10:14 AM EDT Legal Sex Female 10:14 AM EDT Gender Identity Female 12/10/2021 10:14 AM EDT Sexual Orientation Straight 12/10/2021 10 :14 AM EDT Last Filed Vital Signs Vital Sign Reading Time Taken Comments Blood Pressure 104/66 05/03/2024 3:34 PM EDT Pulse 98 05/03/2024 3:34 PM EDT Temperature 36.2 ??C (97.1 ??F) 05/03/2024 3:34 PM ED T Respiratory Rate 14 05/03/2024 3:34 PM EDT Oxygen Saturation 99% 05/03/2024 3:34 PM EDT Inhaled Oxygen Concentration - - Weight 79.7 kg (175 lb 9.6 oz) 05/03/2024 3:34 P M EDT Height 157.5 cm (5' 2 ) 03/02/2024 9:43 AM EST Body Mass Index 32.12 03/02/2024 9:43 AM EST Plan of Treatment Upcoming Encounters Date Type Department Care Team (Late st Contact Info) Description 07/30/2024 3:00 PM EDT Office Visit [facility] [address] [place] [address] Demario Bocanegra Health Maintenance Due Date Last Done Comments Family Planning (PISQ) 02/26/2007 Dental Oral Exam 02/08/2023 08/08/2022 COVID-19 Vaccine ( season) 2023 02/22/2021, 07/01/2020, 06/03/2020 Influenza Vaccine (#1) 2023 8, 04/10/2017, 10/24/2014, Additional history exists Dental X-Ray: Bitewings 06/04/2024 06/04/2023, 08/08 SDOH Screening 06/09/2024 06/10/2023 Cervical Cancer Screening 07/24/2024 HPV/Cotest 07/24/2024 Pap Smear 07/24/2024 07/24/2021 Dental Prophylaxis 07/31/2024 01/30/2024, 0 06/04/2023, 08/08/2022 Depression Monitoring 11/03/2024 05/03/2024, 025 Diabetes: Hemoglobin A1C 11/03/2024 025, 01/26/2024, 11/26/2023, Additional history exists Diabetes: Foot Exam 11/25/2024 11/26/2023, 11/26/2023, 11/26/2023, Additional history exists Diabetes: Urine Protein Screening 11/25/2024 11/26/2023, 09/12/2023, 08/29/2022, Additional history exists Lipid Panel 11/25/2024 11/26/2023, 08/03/2023, 06/11/2023, Additional history exists Eye Exam 01/24/2025 01/24/2023 Alcohol/Substance Use Screening 01/26/2025 01/27/2024 Tobacco Screening 04/26/2025 04/26/2024 Depression Screening 05/03/2025 05/03/2024, 05/04/19 25 Dental X-Ray: Full Mouth 08/09/2025 08/08/2022 DTaP/Tdap/Td [...] 3:35 PM EDT) No Mayito Acuña PharmD Procedures Procedure Name Priority Date/Time Associated Diagnosis Comments GLUCOSE, WHOLE BLOOD Routine 05/24/2024 2:51 PM EDT GLUCOSE, WHOLE BLOOD Routine 05/07/2024 3:06 PM EDT POCT GLYCOSYLATED HEMOGLOBIN (HGB A1C) Routine 05/03/2024 3:35 PM EDT Type 2 diabetes mellitus with hypoglycemia without coma, with long-term current use of insulin ([facility]) POCT GLUCOSE Routine 05/03/2024 3:35 PM EDT Type 2 diabetes mellitus with hypoglycemia without coma, with long-term current use of insulin ([facility]) GLUCOSE, WHOLE BLOOD Routine 04/30/2024 9:39 AM EDT GLUCOSE, WHOLE BLOOD Routine 04/24/2024 11:51 PM EDT COMPREHENSIVE METABOLIC PANEL Routine 04/24/2024 10:57 PM EDT CBC WITH AUTO DIFFERENTIAL Routine 04/24/2024 10:57 PM EDT GLUCOSE, WHOLE BLOOD Routine 04/24/2024 10:37 PM EDT FL UPPER GI W AIR Routine 04/15/2024 8: 00 AM EST POCT URINALYSIS DIPSTICK Routine 04/06/2024 [...] 2:42 PM EST Viral upper respiratory infection PROPHYLAXIS - ADULT Routine 01/30/2024 8 :00 AM EST HEPATITIS C AB W/REFL TO [...] Recently Relevant to Health Maintenance Results * (ABNORMAL) Glucose, Whole Blood (05/24/2024 2:51 PM EDT) Only the most recent of3 resultswithin the time period is included. Glucose, Whole Blood 168(H) 60 - 115 mg/dL [facility] Comment:METER #: [id number] 5Testing performed in the Endocrinology Department [address] , [address], [facility]. 05/24/2024 2:51 PM EDT 05/24/2024 2:54 PM EDT us Generic External Data Provider LAB BLOOD ORDERAB LES Final Result [facility] [address] [place] [phone] * (ABNORMAL) POCT glycosylated hemoglobin (Hgb A1c) (05/03/2024 3:35 PM EDT) Hemoglobin A1C 6.5(A) 4.0 - 6.0 % QC Media Lot # [id number] Lot# Expiration Date [id number] Blood Capillary blood specimen / Unknown 05/03/2024 3:35 PM EDT Cinthya Ray MD POINT OF CARE TEST ENTER/EDIT OR DERABLES Final Result * POCT glucose manually resulted (05/03/2024 3:35 PM EDT) Glucose Blood, POC 113 60 - 200 mg/dL QC Media Lot # [id number] Lot# Expiration Date ,026 Blood Capillary blood specimen / Unknown 05/03/2024 3:35 PM EDT Cinthya Ray MD POINT OF CARE TEST ENTER/EDIT OR DERABLES Final Result * Glucose, Whole Blood (04/24/2024 11:51 PM EDT) Only the most recent of2 resultswithin the time period is included. Glucose, Whole Blood 103 60 - 115 mg/dL [facility] Comment:METER #: [id number] 04/24/2024 11:5 1 PM EDT 04/24/2024 11:55 PM EDT us Generic External Data Provider LAB BLOOD ORDERAB LES Final Result [facility] [address] [place] [phone] * (ABNORMAL) CBC auto differential (04/24/2024 10:57 PM EDT) White Blood Count 9.2 4.8 - 10.8 X10*3/uL [facility] Red Blood Count 4.64 4.20 - 5.50 X10*6/uL [facility] Hemoglobin 11.5(L) 12.0 - 16.0 g/dl [facility] Hematocrit 34.9(L) 37.0 - 47.0 % [facility] Mean Corpuscular Volume 75.2(L) 80.0 - 98.0 fL [facility] Mean Corpuscular Hemoglobin 24.8(L) 27.0 - 33.0 pg [facility] Mean Corpuscular HGB Conc 33.0 31.0 - 35.0 g/dl [facility] Red Cell Distribution Width 15.3 11.0 - 16.0 % [facility] Platelet Count 281 160 - 400 X10*3/uL [facility] Mean Platelet Volume 9.0(L) 9.4 - 12.3 fL [facility] Neutrophils Percent Auto 59.8 45 - 73 % [facility] Imm Gran Pct Auto 0.3 0.0 - 0.4 % [facility] Lymphocytes Percent Auto 33.3 20 - 40 % [facility] Monocytes Percent Auto 5.0 2 - 11 % [facility] Eosinophils Percent Auto 1.2 0 - 4 % [facility] Basophils Percent Auto 0.4 0 - 2 % [facility] NRBC Pct Auto 0.0 0.0 - 0.2 /100WBC [facility] Neutrophils Absolute Auto 5.5 2.0 - 8.3 x10*3/uL [facility] Imm Gran Abs Auto 0.03 0.00 - 0.03 X10*3/uL [facility] Lymphocytes Absolute Auto 3.1 1.2 - 4.9 X10*3/uL [facility] Monocytes Absolute Auto 0.5 0.1 - 1.2 X10*3/uL [facility] Eosinophils Absolute Auto 0.1 0.0 - 0.4 X10*3/uL [facility] Basophils Absolute Auto 0.0 0.0 - 0.2 X10*3/uL [facility] NRBC Abs Auto 0.000 0.0 - 0.012 X10*3/uL [facility] 04/24/2024 10:5 7 PM EDT 04/24/2024 11:01 PM EDT us Generic External Data Provider LAB BLOOD ORDERAB LES Final Result [facility] [address] [place] [phone] * (ABNORMAL) Comprehensive Metabolic Panel (04/24/2024 10:57 PM EDT) Sodium 142 135 - 145 mmol/L [facility] Potassium 3.9 3.3 - 5.1 mmol/L [facility] Chloride 109(H) 96 - 108 mmol/L [facility] Carbon Dioxide 24 22 - 29 mmol/L [facility] Anion Gap 13 12 - 20 [facility] Urea Nitrogen (BUN) 17(H) 9 - 16 mg/dL [facility] Creatinine, Serum 0.71 0.5 - 1.4 mg/dL [facility] Creatinine Clr Calc Pharmacy 110.9 [facility] Comment:Provided height and weight: 157.48 cm,79.379 kg.eGFR (calculated from the MDRD study equation) and eCrCl(calculated from the Cockcroft-Gault equation) are based ondifferent parameters and may not yield comparable results.If eCrCl result is absurd, please check patient'sheight/weight. Estimated Glomerular Filt Rate >60 [facility] Comment:Chronic Kidney Disea se: Estimated GFR < 60 mL/min/1.56p7Qiyato Kidney Disease: Estimated GFR < 15 mL/min/1.73m2 Glucose 96 60 - 115 mg/dL [facility] Calcium 8.7 8.4 - 10.2 mg/dL [facility] Bilirubin, Total 0.3 0.0 - 1.0 mg/dL [facility] Aspartate Amino Transferase 22 5 - 31 U/L [facility] Alanine Aminotransferase 15 0 - 31 U/L [facility] Total Protein 7.5 6.5 - 8.0 g/dL [facility] Albumin Level 3.6 3.5 - 5.0 g/dL [facility] Alkaline Phosphatase 77 39 - 117 U/L [facility] 04/24/2024 10:5 7 PM EDT 04/24/2024 11:01 PM EDT us Generic External Data Provider LAB BLOOD ORDERAB LES Final Result [facility] [address] [place] [address] [phone] * FL upper GI w air (04/15/2024 8:00 AM EST) Anatomical Region Laterality Modality Body Radiographic Vkiy ging 04/15/2024 8:00 AM EST Narrative 04/19/2024 1:33 PM EDT ? [facility] ?[address] ?[place] [address] ? Fluoroscopy Report ? Signed ? Patient: Sonali Gill ?MR#: ?? [id number] ? : 1990 ?Acct:[id number] ? Age/Sex: 34 / F ?ADM Date: 04/15/24 ? Loc: HO.XRAY ? Attending Dr: Nate Mijares MD ? Ordering Physician: Nate Mijares MD ?? Date of Service: 04/15/24 ?? Procedure(s): FL upper GI w air ?? Accession Number(s): [id number] ? cc: Nate Mijares MD; Cinthya Ray [...] DD/ 0800 ? TD/TT: 04/15/24 0820 ? Artist Manager: ? Procedure Note Win, Alfie - 04/19/2024 [place] [address] Fluoroscopy Report Signed Patient: Jeremy Gill#: [id number] : 1990Acct:[id number] Age/Sex: 34 / FADM Date: 04/15/24 Loc: [facility] Attending Dr: Nate Mijares MD Ordering Physician: Nate Mijares MD Date of Service: 04/15/24 Procedure(s): FL upper GI w air Accession Number(s): [id number] cc: Nate Mijares MD; Cinthya Ray MD [...] Jeremi Ornelas MD 04/19/2024 01:30 PM EDT Dictated By: Umberto Hansen Signed By: <Electronically signed by Umberto Hansen in OV> 04/19/24 1330 <Electronically signed by Jeremi Ornelas MD in OV> 04/19/24 1332 DD/ 0800 TD/TT: 04/15/24 0820 Artist Manager: [facility] External Provider IMG FLU OROSCOPY PROCEDURES Final [...] DETECTION BY PCR NOT DETECTED Not Detect [facility] BACTERIAL VAGINOSIS DETECTION BY PCR POSITIVE(A) Negative [facility] Comment:The BV organism targ ets [...] DETECTION BY PCR NOT DETECTED Not Detect [facility] Deyanira glab krusei PCR NOT DETECTED Not Detect [facility] 04/06/2024 5:04 PM EST 04/07/2024 11:23 AM EST Lexis Spann MD LAB MICROBIOLOGY - GENER AL ORDERABLES Final Result [facility] [address] [place] [phone] * Chlamydia/N. Gonorrhoeae RNA, TMA, Urogenitial (04/06/2024 5:04 PM EST) CT PCR NOT DETECTED Not Detect. [facility] Comment:A not detected test result [...] psychologicalconsequences. NG PCR NOT DETECTED Not Detect. [facility] Comment:A not detected test result [...] PM EST 04/07/2024 11:15 AM EST Narrative [facility] - 04/07/2024 1:26 PM EST Vaginal us Lexis Spann MD LAB MICROBIOLOGY - GENER AL ORDERABLES Final Result [facility] [address] [place] [phone] * Culture, Urine, Routine (04/06/2024 12:00 AM EST) Urine Urine specimen obtained by clean catch procedure / Unknown 04/06/2024 04/06/2024 Comment:[facility] Narrative [facility] - 04/10/2024 7:29 AM EST [...] MICROBIOLOGY - GENER AL ORDERABLES Final Result [facility] [address] [place] [address] [phone] * MR Shoulder w/o Contrast Left (03/12/2024 7:15 PM EST) Anatomical Region Laterality Modality Upper Extremities, Shoulder Left Magn etic Resonance 03/12/2024 7:15 PM EST Narrative 03/15/2024 10:07 AM EST ? [facility] ?[address] ?[place] [address] ? Magnetic Resonance Report ? Signed ? Patient: Sonali Gill ?MR#: ?? [id number] ? : 1990 ?Acct:[id number] ? Age/Sex: 34 / F ?ADM Date: 03/12/24 ? Loc: HO.MRI ? Attending Dr: Al Hays MD ? Ordering Physician: Al Hays MD ?? Date of Service: 03/12/24 ?? Procedure(s): MR shoulder LT wo con ?? Accession Number(s): [id number] ? cc: Al Hays MD; Cinthya Ray [...] ??Anand Vera MD ??03/15/2024 10:04 AM EST ? Dictated By: ?Anand Vera MD ? Signed By: ?<Electronically signed by Anand Vera MD in OV> ?03/15/24 1004 ? DD/ 1915 ? TD/TT: 03/12/24 1940 ? Artist Manager: ? Procedure Note Alfie Walden - 03/15/2024 [place] [address] Magnetic Resonance Report Signed Patient: Jeremy Gill#: [id number] : 1990Acct:[id number] Age/Sex: 34 / FADM Date: 03/12/24 Loc: HO.MRI Attending Dr: Al Hays MD Ordering Physician: Al Hays MD Date of Service: 03/12/24 Procedure(s): MR shoulder LT wo con Accession Number(s): [id number] cc: Al Hays MD; Cnithya Ray MD EXAMINATION: MRI LEFT SHOULDER WITHOUT [...] OV> 03/15/24 1004 DD/ 14 TD/TT: 03/12/241939 Artist Manager: [facility] External Provider IMG MRI PROCEDURES Final Result * POCT Rapid Influenza B SEBASTIAN ID NOW (03/02/2024 10:18 AM EST) Only the most recent of2 resultswithin the time period is included. Influenza B Negative Negative, Indeterminate [facility] Swab 03/02/2024 10:1 8 AM EST Sonali Tellez MD POINT OF CARE TEST ENTER/E DIT ORDERABLES Final Result Performing Organization Address [facility] de Phone Number [facility] [address] [place] [phone] * POCT Rapid Influenza A SEBASTIAN ID NOW (03/02/2024 10:18 AM EST) Only the most recent of2 resultswithin the time period is included. Influenza A Negative Negative, Indeterminate [facility] Swab 03/02/2024 10:1 8 AM EST Sonali Tellez MD POINT OF CARE TEST ENTER/E DIT ORDERABLES Final Result Performing Organization Address [facility] Co de Phone Number [facility] [address] [place] [address] [phone] * POCT Rapid Covid-19 BinaxNOW (03/02/2024 10:18 AM EST) Only the most recent of2 resultswithin the time period is included. [facility] Rapid COVID Ag Negative Swab 03/02/2024 10:1 8 AM EST Sonali Tellez MD POINT OF CARE TEST ENTER/E DIT ORDERABLES Final Result * POCT rapid strep A manually resulted (03/02/2024 10:18 AM EST) [facility] Rapid Strep A Screen Negative Negative, None Detected Swab 03/02/2024 10:1 8 AM EST Sonali Tellez MD POINT OF CARE TEST ENTER/E DIT ORDERABLES Final Result * POCT Rapid Strep A SEBASTIAN ID NOW (02/26/2024 2:42 PM EST) [facility] Rapid Strep A Screen Negative Negative, None Detected Swab 02/26/2024 2:42 PM EST Sonali Tellez MD POINT OF CARE TEST ENTER/E DIT ORDERABLES Final Result * (ABNORMAL) Lipid Panel with Reflex to Direct LDL (11/26/2023 11:30 AM EDT) [facility] Triglycerides 145 <150 mg/dL [facility] Comment:Desirable Triglyceri de: less than 150 mg/dLBorderline High Triglyceride 150-199 mg/dLHigh Triglyceride: 200-499 mg/dLVery High Triglyceride: greater than or equal to 5OO mg/dL Cholesterol 152 <200 mg/dL [facility] Comment:Desirable Cholestero l: less than 200 mg/dLBorderline High Cholesterol: 200-239 mg/dLHigh Cholesterol: greater than 239 mg/dL LDL Cholesterol Calculated 91 <100 mg/dL [facility] Comment:Desirable LDL: less than 100 mg/dLNear Optimal/Above Optimal LDL: 110- 129 mg/dLBorderline High LDL: 130-159 mg/dLHigh LDL: 160-189 mg/dLVery High LDL: greater than or equal to 190 mg/dL HDL Cholesterol 32(L) >40 mg/dL [facility] Comment:Desirable HDL: great er than 40 mg/dL Note: This HDL assay may give artificially low results in patients with liver disease. Blood 11/26/2023 11:3 0 AM EDT 11/26/2023 1:20 PM EDT Cinthya Ray MD LAB BLOOD ORDERABLES Final Resul t Performing Organization Address [facility] Co de Phone Number [facility] [address] [place] [phone] * Hepatitis C Antibody with Reflex to HCV, RNA, Quantitative, Real-Time PCR (11/26/2023 11:30 AM EDT) Hepatitis C Antibody Nonreactive Nonreactive [facility] Comment:Antibodies to HCV no t detected; does not exclude early acuteHCV infection. Blood Venous blood specimen / Unknown 11/26/2023 11:30 AM EDT 11/26/2023 1:20 PM EDT Cinthya Ray MD LAB BLOOD ORDERABLES Final Resul t Performing Organization Address [facility] Co de Phone Number [facility] [address] [place] [phone] * HIV-1/2 Antigen and Antibodies, Fourth Generation, with Reflexes (11/26/2023 11:30 AM EDT) HIV AB/AG Nonreactive Nonreactive [facility] Comment:HIV-1 p24 Ag and/or HIV-1/HIV-2 Ab not detected.A test result that is nonreactive does not exclude thepossibility of exposure to or infection with HIV-1 and/orHIV-2. Nonreactive results in this assay for individualswith prior exposure to HIV-1 and/or HIV-2 may be due toantigen and antibody levels that are below the limit ofdetection of this assay.The [employer] HIV Ag/Ab Combo assay result andsupplemental assay results should be interpreted inconjunction with the patient's clinical presentation,history and other laboratory results. If the results areinconsistent with clinical evidence, additional testing issuggested to confirm the result. Blood Venous blood specimen / Unknown 11/26/2023 11:30 AM EDT 11/26/2023 1:20 PM EDT Cinthya Ray MD LAB BLOOD ORDERABLES Final Resul t Performing Organization Address [facility] Co de Phone Number [facility] [address] [place] [address] [phone] * Albumin, Random Urine W/Creatinine (11/26/2023 12:00 AM EDT) Creatinine, Urine 238.24 mg/dL [facility] Microalbumin Urine 23.0 mg/L [facility] Microalbum Creatinine Ratio Ur 9.6 <30 ug/mg cr [facility] Comment:Albumin/Creatinine R atio Reference Ranges: Normal: < 30 ug/mg creatinine Microalbuminuria: 30 - 300 ug/mg creatinineClinical Albuminuria: > 300 ug/mg creatinine Urine 11/26/2023 11/26/2023 Cinthya Ray MD LAB URINE ORDERABLES Final Resul t Performing Organization Address [facility]/ZIP Co de Phone Number [facility] [address] [place] [address] [phone] * Diabetes Eye Exam (01/24/2023) Eye Exam Normal Normal Comment:[facility] 01/24/2023 Berta Provider HEALTH MAINTENANCE Final Result * THINPREP [...] has been evaluated with computer assisted technology. [facility] Cuff Cutter : SEE COMMENT [facility] Comment: MXD, CT (ASCP) CT screening location: [address] ??[phone] Interpretation/R esult: Negative for intraepithelial lesion or malignancy. [facility] LMP: NONE [facility] Prev. BX: NONE [facility] Prev. PAP: NONE [facility]IV[facility] SOURCE: None given [facility] Statement Of Adequacy: SEE COMMENT [facility] Comment: Satisfactory for evaluation. Endocervical/transformation zone component present. Age and/or menstrual status not provided 07/24/2021 4:01 PM EDT Cinthya Ray MD LAB PATHOLOGY ORDERABLES Final R esult [facility] [address] from Last 3 Months or Most Recently Relevant to Health Maintenance [facility] [place] AD[place] Care Teams Plant Cytologist Relationship Specialty Start Date End Date Cinthya Ray MD [address] [place] [phone] PCP - General Family Medicine 10/23/11
--- OUTSIDE RECORDS SUMMARY | 2024-05-24 17:14 | XMS_ITS | Encounter Summary ---
Author Organization [facility] Address [address] [place] [address] 7 [place] [address] Care Team Providers Care Grinding Wheel Operator Name Role Phone Cinthya Ray MD Primary Care Provider [phone] Encounter Details Date Type Department Care Team (Late st Contact Info) Description 05/24/2024 Orders Only GENERIC EXTERNAL DATA DEPARTMENT Provider, Generic External Data Social History Tobacco Use Types Packs/Day Years [...] Description 07/30/2024 3:00 PM EDT Office Visit [facility] [address] [place] [address] Demario Bocanegra documented as of this encounter Goals Goal Patient Goal Type Associated Problems Recent Progress Patient-Stated? Author Blood Pressure < 140/90 Blood Pressure 104/66(2024 3:34 PM EDT) No Mayito Acuña, PharmDao Hemoglobin A1c < 7 Result Component 6.5( 3:35 PM EDT) No Mayito Acuña PharmD documented as of this encounter Procedures Procedure Name Priority Date/Time Associated Diagnosis Comments GLUCOSE, WHOLE BLOOD Routine 05/24/2024 2:51 PM EDT documented in this encounter Results * (ABNORMAL) Glucose, Whole Blood (05/24/2024 2:51 PM EDT) Glucose, Whole Blood 168(H) 60 - 115 mg/dL [facility] Comment:METER #: [id number] 5Testing performed in the Endocrinology Department [address] , [address], [facility]. 05/24/2024 2:51 PM EDT 05/24/2024 2:54 PM EDT us Generic External Data Provider LAB BLOOD ORDERAB LES Final Result [facility] [address] [place] [phone] documented in this encounter Visit Diagnoses Not on filedocumented in this encounter Additional Health Concerns Assessment Noted Time PHQ-9 Depression Total Score: 14 025 3:57 PM EDT documented as of this encounter Care Teams Grinding Wheel Operator Relationship Specialty Start Date End Date Cinthya Ray MD [address] [place] [address] PCP - General Family Medicine 10/23/11 documented as of this encounter
--- OUTSIDE RECORDS SUMMARY | 2024-05-24 17:14 | XMS_ITS | Encounter Summary ---
Author Organization [employer] Address [address] [facility] 7 [place] [address] Care Team Providers Care Granite Countertop Installer Name Role Phone Cinthya Ray MD Primary Care Provider [phone] Mayito Acuña PharmD Unavailable [phone] Encounter Details Date Type Department Care Team (Late st Contact Info) Description 01/31/2024 Orders Only [facility] [address] [place], [place] [phone] Cinthya Ray MD [address] [place], [place] [phone] Vitamin D deficiency (Primary Dx) Social History [...] Description 07/30/2024 3:00 PM EDT Office Visit [facility] AD[facility] [address] [place] [address] Demario Bocanegra documented as of this encounter [...] documented as of this encounter Care Teams Granite Countertop Installer Relationship Specialty Start Date End Date Cinthya Ray MD [address] [place] [address] PCP - General Family Medicine 10/23/11 Mayito Acuña PharmD [address] [place] [phone] Pharmacist Internal Medicine 03/07/23 04/22/24 documented as of this encounter
--- OUTSIDE RECORDS SUMMARY | 2024-05-24 17:14 | XMS_ITS | Encounter Summary ---
Author Organization [employer] Address [address] [facility] [address] [place] [address] Care Team Providers Care Shook Splicer Name Role Phone Cinthya Ray MD Primary Care Provider [phone] Mayito Acuña PharmD Unavailable [phone] Encounter Details Date Type Department Care Team ([facility] st Contact Info) Description 03/05/2023 Orders Only [facility] [address] [place], [place] [phone] Cinthya Ray MD [address] [place], [place] [phone] Social History Tobacco Use Types Packs/Day Years [...] Description 07/30/2024 3:00 PM EDT Office Visit [facility] [address] [place] [address] Demario Bocanegra documented as of this encounter Goals Goal Patient Goal Type Associated Problems Recent Progress Patient-Stated? Author Blood Pressure < 140/90 Blood Pressure 104/66(2024 3:34 PM EDT) No Mayito Acuña, PharmDao Hemoglobin A1c < 7 Result Component 6.5( 3:35 PM EDT) No Mayito Acuña PharmD documented as of this encounter Visit Diagnoses Not on filedocumented in this encounter Care Teams Shook Splicer Relationship Specialty Start Date End Date Cinthya Ray MD [address] [place] [phone] PCP - General Family Medicine 10/23/11 Mayito Acuña PharmD [address] [place] [phone] Pharmacist Internal Medicine 03/07/23 04/22/24 documented as of this encounter
--- OUTSIDE RECORDS SUMMARY | 2024-05-24 17:14 | XMS_ITS | Encounter Summary ---
Author Organization [email or web address] Address [address] [place] [address] 7 [place] [address] Care Team Providers Care Daycare Director Name Role Phone Cinthya Ray MD Primary Care Provider [phone] Mayito Acuña PharmD Unavailable [phone] Reason for Visit * Reason Onset Date Comments callback request 12/30/2023 Encounter Details Date Type Department Care Team ([facility] st Contact Info) Description 12/30/[address] [facility] MED[facility]INE [address] [place], [place] [phone] Cinthya Ray MD [address] [place] [address] callback request Social History Tobacco Use Types [...] the past 12 months, has t he [employer] gas, oil or water company threatened to [...] EST Tc from pt returning call [facility] to book an appointment for follow up Callback [phone] documented in this encounter Plan of Treatment Upcoming Encounters Date Type Department Care Team (Late st Contact Info) Description 07/30/2024 3:00 PM EDT Office Visit [facility] ADULT DENTAL [address] [place] [address] Demario Bocanegra documented as of this encounter Goals Goal Patient Goal Type Associated Problems Recent Progress Patient-Stated? Author Blood Pressure < 140/90 Blood Pressure 104/66(2024 3:34 PM EDT) No aMyito Acuña PharmD Hemoglobin A1c < 7 Result Component 6.5( 3:35 PM EDT) No Mayito Acuña PharmD documented as of this encounter Visit Diagnoses Not on filedocumented in this encounter Additional Health Concerns Assessment Noted Time PHQ-9 Depression Total Score: 11 024 9:48 AM EDT documented as of this encounter Care Teams Daycare Director Relationship Specialty Start Date End Date Cinthya Ray MD [address] [place] [address] PCP - General Family Medicine 10/23/11 Mayito Acuña PharmD [address] [place] [address] Pharmacist Internal Medicine 03/07/23 04/22/24 documented as of this encounter
--- OUTSIDE RECORDS SUMMARY | 2024-05-24 17:14 | XMS_ITS | Encounter Summary ---
Author Organization [email or web address] [facility] Address [address] [place] [address] 7 [place] [address] Care Team Providers Care Dairy Clerk Name Role Phone Cinthya Ray MD Primary Care Provider [phone] Mayito Acuña PharmD Unavailable [phone] Encounter Details Date Type Department Care Team ([facility]) Description 02/26/2022 Abstract [facility] MEDICINE [address] [place], [place] [phone] Cinthya Ray MD [address] [place] [address] Social History Tobacco Use Types Packs/Day Years [...] Department Care Team (Late Contact Info) Description 07/30/2024 3:00 PM EDT Office Visit [facility]C ADULT DENTAL [address] [place] [address] Demario Bocanegra documented as of this encounter Visit Diagnoses Not on filedocumented in this encounter Care Teams Dairy Clerk Relationship Specialty Start Date End Date Cinthya Ray MD [address] [place] [address] PCP - General Family Medicine 10/23/11 Mayito Acuña, Citlali [address] [place] [address] Pharmacist Internal Medicine 03/07/23 04/22/24 documented as of this encounter
--- OUTSIDE RECORDS SUMMARY | 2024-05-24 17:15 | XMS_ITS | Encounter Summary ---
Author Organization [employer] Address [address] [place] [address] 7 [place] [address] Care Team Providers Care Software Sales Name Role Phone Cinthya Ray MD Primary Care Provider [phone] Mayito Acuña PharmD Unavailable [phone] Reason for Visit * Reason Onset Date Comments Med Refill 11/02/2023 Encounter Details Date Type Department Care Team (Late st Contact Info) Description 11/02/[address] [facility] CHC MED & PEDS [address] [place], [place] [phone] Cinthya Ray MD [address] [place] [address] Type 2 diabetes mellitus with hyperglycemia, without long-term current use of insulin ([facility]) Social History Tobacco Use Types Packs/Day Years [...] Description 07/30/2024 3:00 PM EDT Office Visit [facility] ADULT DENTAL [address] [place] [address] Demario Bocanegra documented as of this encounter [...] hyperglycemia, without long-term current use of insulin ([facility]) documented in this encounter Additional Health Concerns Assessment Noted Time PHQ-9 Depression Total Score: 11 024 9:48 AM EDT documented as of this encounter Care Teams Software Sales Relationship Specialty Start Date End Date Cinthya Ray MD [address] [place] [address] PCP - General Family Medicine 10/23/11 Mayito Acuña PharmD [address] [place] [address] Pharmacist Internal Medicine 03/07/23 04/22/24 documented as of this encounter
--- OUTSIDE RECORDS SUMMARY | 2024-05-24 17:15 | XMS_ITS | Encounter Summary ---
Author Organization [employer] [facility] Address [address] [place] [address] 7 [place] [address] Care Team Providers Care Winder Tender Name Role Phone Cinthya Ray MD Primary Care Provider [phone] Mayito Acuña PharmD Unavailable [phone] Reason for Visit * Reason Onset Date Comments Med Refill 11/02/2023 Encounter Details Date Type Department Care Team (Late st Contact Info) Description 11/02/2023 Refill [facility] MEDICINE [address] [place], [place] [phone] Cinthya Ray MD [address] [place], [place] [phone] Social History Tobacco Use Types Packs/Day Years [...] but unableto make. Pt will come to [facility] today open till 8pm. Pt reports drinking [...] Gill Sent: 11/10/2023 5:32 PM EDT To: [facility] Front Office Subject: Appointment Request Appointment Request From: Sonali Rosa With Provider: Cinthya Ray MD [[facility] MEDICINE] Preferred Date Range: 11/11/2023 - 11/13/2023 [...] PM EDT Office Visit [facility] ADULT DENTAL [address] [place] [address] Demario Bocanegra documented as of this encounter [...] documented as of this encounter Care Teams Winder Tender Relationship Specialty Start Date End Date Cinthya Ray MD [address] [place] [address] PCP - General Family Medicine 10/23/11 Mayito Acuña PharmD [address] [place] [address] Pharmacist Internal Medicine 03/07/23 04/22/24 documented as of this encounter
--- OUTSIDE RECORDS SUMMARY | 2024-05-24 17:15 | XMS_ITS | Encounter Summary ---
Author Organization [employer] Address [address] [place] [address] 7 [place] [address] Care Team Providers Care Crumb Packer Name Role Phone Cinthya Ray MD Primary Care Provider [phone] Mayito Acuña PharmD Unavailable [phone] Reason for Visit * Reason Onset Date Comments Med Refill 01/03/2023 Encounter Details Date Type Department Care Team (Late st Contact Info) Description 01/03/2023 Refill [facility] MEDICINE [address] [place], [place] [phone] Cinthya Ray MD [address] [place], [place] [phone] Social History Tobacco Use Types Packs/Day Years [...] Description 07/30/2024 3:00 PM EDT Office Visit [facility] ADULT DENTAL [address] [place] [address] Demario Bocanegra documented as of this encounter Visit Diagnoses Not on filedocumented in this encounter Care Teams Crumb Packer Relationship Specialty Start Date End Date Cinthya Ray MD [address] [place] [address] PCP - General Family Medicine 10/23/11 Mayito Acuña, DyanD [address] [place] [address] Pharmacist Internal Medicine 03/07/23 04/22/24 documented as of this encounter
--- OUTSIDE RECORDS SUMMARY | 2024-05-24 17:15 | XMS_ITS | Encounter Summary ---
Author Organization [employer] Address [address] [place] [address] 7 [place] [address] Care Team Providers Care Chainstitch Pants Outseamer Name Role Phone Cinthya Ray MD Primary Care Provider [phone] Mayito Acuña PharmD Unavailable [phone] Reason for Visit * Reason Onset Date Comments Med Refill 03/12/2024 Encounter Details Date Type Department Care Team (Late st Contact Info) Description 03/12/2024 Refill [facility] CHC MED & PEDS [address] [place], [place] [phone] Cinthya Ray MD [address] [place] [address] Type 2 diabetes mellitus with hyperglycemia, without long-term current use of insulin ([facility]) Social History Tobacco Use Types Packs/Day [...] Description 07/30/2024 3:00 PM EDT Office Visit [facility] ADULT DENTAL [address] [place] [address] Demario Bocanegra documented as of this encounter [...] ([facility]) documented in this encounter Additional Health Concerns Assessment Noted Time PHQ-9 Depression Total Score: 11 024 9:48 AM EDT documented as of this encounter Care Teams Chainstitch Pants Outseamer Relationship Specialty Start Date End Date Cinthya Ray MD [address] [place] [address] PCP - General Family Medicine 10/23/11 Mayito Acuña, PharmD [address] [place] [address] Pharmacist Internal Medicine 03/07/23 04/22/24 documented as of this encounter
--- OUTSIDE RECORDS SUMMARY | 2024-05-24 17:15 | XMS_ITS | Encounter Summary ---
Author Organization [employer] Address [address] [place] [address] 7 [place] [address] Care Team Providers Care Soap Grinder Name Role Phone Cinthya Ray MD Primary Care Provider [phone] Mayito Acuña PharmD Unavailable [phone] Reason for Visit * Reason Onset Date Comments Appointment Request 09/02/2022 Encounter Details Date Type Department Care Team ([facility] st Contact Info) Description 09/02/2022 Telephone C CHC MED & PEDS [address] [place], [place] [phone] Cinthya Ray MD [address] [place] [address] Appointment Request Social History Tobacco Use Types [...] above * Telephone Encounter - Karina Álvarez Jessie - 09/02/2022 9:23 AM EDT Tc from pt requesting an appt with provider as soon as possible to discuss her results and to discuss about her kidney failure.' Please contact pt at [phone] documented in this encounter Plan of Treatment Upcoming Encounters Date Type Department Care Team (Late st Contact Info) Description 07/30/2024 3:00 PM EDT Office Visit [facility] ADULT DENTAL [address] [place] [address] Demario Bocanegra documented as of this encounter Visit Diagnoses Not on filedocumented in this encounter Care Teams Soap Grinder Relationship Specialty Start Date End Date Cinthya Ray MD [address] [place] [address] PCP - General Family Medicine 10/23/11 Mayito Acuña, Citlali [address] [place] [address] Pharmacist Internal Medicine 03/07/23 04/22/24 documented as of this encounter
--- OUTSIDE RECORDS SUMMARY | 2024-05-24 17:15 | XMS_ITS | Clinical Summary ---
Author Organization [facility] Address [address] [place] [address] Phone Care Team Providers Care Visitor Information Assistant Name Role Phone Unavailable Primary Care Provider Unavailabl e Allergies No known active allergies Encounters Date Type Department Care Team Description 02/29/2024 2:07 AM EST - 02/29/2024 3:08 AM EST Emergency [facility] Emergency [address] [place] [address] Viral syndrome (Primary Dx) Discharge Disposition: Home or Self Care from Last 3 Months Medical History Medical History Date Comments Diabetes mellitus ([facility], [facility] V28) Social History Tobacco Use Types Packs/Day Years [...] Vaccine ( season) 2023 02/22/2021, 07/01/2020, 06/03/2020 Diabetes: Annual Urine Albumin-Creatinine Ratio (uACR) 02/29/2024 Diabetes: Blood Sugar Control Test (HGBA1C) 07/26/2024 01/26/2024 Depression Screening 09/28/2024 09/29/2023 Influenza Vaccine (Season Ended) 2024 11/10/2017, 04/10/2017, 10/24/2014, Additional history exists DTaP,Tdap,and Td Vaccines (9 - Td or [...] age to complete this topic Meningococcal B Vaccine Aged Out No l onger eligible based on patient's age to complete [...] study (02/29/2024 1:27 AM EST) Pathologist [facility] Adenovirus Detection by PCR Not Detected Not Detected LAB MICROBIOLOGY METHOD 02/29/2024 3:00 AM [facility] Influenza A PCR Not Detected Not Detected LAB MICROBIOLOGY METHOD 02/29/2024 3:00 AM [facility] Influenza B PCR Not Detected Not Detected LAB MICROBIOLOGY METHOD 02/29/2024 3:00 AM EST [facility] Coronavirus 229E Not Detected Not Detected LAB MICROBIOLOGY METHOD 02/29/2024 3:00 AM [facility] Coronavirus HKU1 Not Detected Not Detected LAB MICROBIOLOGY METHOD 02/29/2024 3:00 AM [facility] Coronavirus OC43 Not Detected Not Detected LAB MICROBIOLOGY METHOD 02/29/2024 3:00 AM [facility] Coronavirus NL63 Not Detected Not Detected LAB MICROBIOLOGY METHOD 02/29/2024 3:00 AM [facility] Parainfluenza Virus 1 Not Detected Not Detected LAB MICROBIOLOGY METHOD 02/29/2024 3:00 AM [facility] Parainfluenza Virus 2 Not Detected Not Detected LAB MICROBIOLOGY METHOD 02/29/2024 3:00 AM [facility] Parainfluenza Virus 3 Not Detected Not Detected LAB MICROBIOLOGY METHOD 02/29/2024 3:00 AM [facility] Parainfluenza Virus 4 [...] LAB MICROBIOLOGY METHOD 02/29/2024 3:00 AM EST [facility] Bordetella pertussis Not Detected Not [...] 1:27 AM EST 02/29/2024 1:46 AM EST [facility] - 02/29/2024 3:00 AM EST Testing was performed using the [employer] Respiratory Pathogen PCR Assay. All results must [...] that are below the limit of detection. [facility] Leeanna Valero MD LAB MICROBIOLOGY - GENERAL HARTLINEBud [facility] Final Result [facility] [address] [place] [address], from Last 3 Months Insurance MEDICAID - [place]
--- OUTSIDE RECORDS SUMMARY | 2024-05-24 17:15 | XMS_ITS | Encounter Summary ---
Author Organization [facility] Address [address] [place] [address] 7 [place] [address] Care Team Providers Care Human Service Worker Name Role Phone Cinthya Ray MD Primary Care Provider [phone] Mayito Acuña PharmD Unavailable [phone] Reason for Visit * Reason Onset Date Comments Med Refill 08/06/2023 Encounter Details Date Type Department Care Team (Late st Contact Info) Description 08/06/2023 Refill [facility] MEDICINE [address] [place], [place] [phone] Cinthya Ray MD [address] [place], [place] [phone] Social History Tobacco Use Types Packs/Day Years [...] [facility] ADULT DENTAL [address] [place] [address] Demario Bocanegra documented as of this encounter [...] as of this encounter Care Teams Human Service Worker Relationship Specialty Start Date End Date Cinthya Ray MD [address] [place] [address] PCP - General Family Medicine 10/23/11 Mayito Acuña PharmD [address] [place] [address] Pharmacist Internal Medicine 03/07/23 04/22/24 documented as of this encounter
--- OUTSIDE RECORDS SUMMARY | 2024-05-24 17:15 | XMS_ITS | Encounter Summary ---
Author Organization [employer] Address [address] [place] [address] 7 [place] [address] Care Team Providers Care Straightening Press Operator Helper Name Role Phone Cinthya Ray MD Primary Care Provider [phone] Mayito Acuña PharmD Unavailable [phone] Reason for Visit * Reason Onset Date Comments Med Refill 10/30/2023 Encounter Details Date Type Department Care Team (Late st Contact Info) Description 10/30/2023 Refill [facility] CHC MED & PEDS [address] [place], [place] [phone] Cinthya Ray MD [address] [place] [address] Type 2 diabetes mellitus with hyperglycemia, without long-term current use of insulin ([facility]) Social History Tobacco Use Types Packs/Day [...] Description 07/30/2024 3:00 PM EDT Office Visit [facility] ADULT DENTAL [address] [place] [address] Demario Bocanegra documented as of this encounter [...] hyperglycemia, without long-term current use of insulin ([facility]) documented in this encounter Additional Health Concerns Assessment Noted Time PHQ-9 Depression Total Score: 11 024 9:48 AM EDT documented as of this encounter Care Teams Straightening Press Operator Helper Relationship Specialty Start Date End Date Cinthya Ray MD [address] [place] [address] PCP - General Family Medicine 10/23/11 Mayito Acuña PharmD [address] [place] [address] Pharmacist Internal Medicine 03/07/23 04/22/24 documented as of this encounter
--- OUTSIDE RECORDS SUMMARY | 2024-05-24 17:15 | XMS_ITS | Encounter Summary ---
Author Organization [employer] Address [address] [place] [address] 7 [place] [address] Care Team Providers Care Immigration Services Officer Name Role Phone Cinthya Ray MD Primary Care Provider [phone] Reason for Visit * Reason Onset Date Comments Prior Auth Prescription 05/24/2024 Encounter Details Date Type Department Care Team ([facility] st Contact Info) Description 05/24/2024 Telephone [facility] MEDICINE [address] [place], [place] [phone] Cinthya Ray MD [address] [place], [place] [phone] Prior Auth Prescription Social History Tobacco Use Types Packs/Day Years [...] encounter Miscellaneous Notes * Telephone Encounter - Valerie Garcia RN - 05/24/2024 4:15 PM EDT From med list for Freestlye Audrey 3 sensors: Note to Pharmacy: Replaces Audrey 2. Patient monitors with smartphone, does not need reader. Patientwill make transition to Audrey 3 when supply of Audrey 2 completed. Called [facility] pharmacy, no active Rx for Audrey 2 sensors (). PA required for Audrey 3. Pharmacy stating that pt now following with Endocrinology as well, unsure if they should be prescribing. Willtask to call when office is open to clarify. * Telephone Encounter - Binta Roland - 05/24/2024 4:01 PM EDT Patient walked in requesting PA for CGM. Script was sent but no PA has been generated (Patient wants free style audrey 3). Patient says she has the manual reader but would rather have the CGM doesn't want to prick fingers every day. Advised message would be sent. documented in this encounter Plan of Treatment Upcoming Encounters Date Type Department Care Team (Late st Contact Info) Description 07/30/2024 3:00 PM EDT Office Visit [facility] ADULT DENTAL [address] [place] [address] Demario Bocanegra documented as of this encounter [...] documented as of this encounter Care Teams Immigration Services Officer Relationship Specialty Start Date End Date Cinthya Ray MD [address] [place] [address] PCP - General Family Medicine 10/23/11 documented as of this encounter
--- OUTSIDE RECORDS SUMMARY | 2024-05-24 17:15 | XMS_ITS | Encounter Summary ---
Author Organization [employer] [facility] Address [address] [place] [address] 7 [place] [address] Care Team Providers Care Cost Controller Name Role Phone Cinthya Ray MD Primary Care Provider [phone] Mayito Acuña PharmD Unavailable [phone] Reason for Visit * Reason Comments Med Refill Encounter Details Date Type Department Care Team (Late st Contact Info) Description 08/31/2022 Refill [facility] MEDICINE [address] [place] [address] Starla Nuñez MD [address] [place] [address] Injury of head, initial encounter Social History [...] Description 07/30/2024 3:00 PM EDT Office Visit [facility] CHC ADULT DENTAL [address] [place] [address] Demario Bocanegra documented as of this encounter Visit Diagnoses Diagnosis Injury of head, initial encounter documented in this encounter Care Teams Cost Controller Relationship Specialty Start Date End Date Cinthya Ray MD [address] [place] [address] PCP - General Family Medicine 10/23/11 Mayito Acuña, Citlali [address] [place] [address] Pharmacist Internal Medicine 03/07/23 04/22/24 documented as of this encounter
--- OUTSIDE RECORDS SUMMARY | 2024-05-24 17:15 | XMS_ITS | Encounter Summary ---
Author Organization [employer] Address [address] [facility] 7 [place] [address] Care Team Providers Care Contact Lens Flashing Puncher Name Role Phone Cinthya Ray MD Primary Care Provider [phone] Mayito Acuña PharmD Unavailable [phone] Encounter Details Date Type Department Care Team ([facility] st Contact Info) Description 09/15/2023 Orders Only [facility] MEDICINE [address] [place], [place] [phone] Cinthya Ray MD [address] [place], [place] [phone] Type 2 diabetes mellitus with hyperglycemia, without long-term current use of insulin ([facility] [place]) Social History Tobacco Use Types [...] [facility] AD[facility] [address] [place] [address] Demario Bocanegra documented as of this encounter [...] use of insulin ([facility]) documented in this encounter Additional Health Concerns Assessment Noted Time PHQ-9 Depression Total Score: 0 09/10/19 9:01 AM EDT documented as of this encounter Care Teams Contact Lens Flashing Puncher Relationship Specialty Start Date End Date Cinthya Ray MD [address] [place] [address] PCP - General Family Medicine 10/23/11 Mayito Acuña PharmD [address] [place] [address] Pharmacist Internal Medicine 03/07/23 04/22/24 documented as of this encounter
--- OUTSIDE RECORDS SUMMARY | 2024-05-24 17:15 | XMS_ITS | Encounter Summary ---
Author Organization [employer] [facility] Address [address] [place] [address] 7 [place] [address] Care Team Providers Care Build Master Name Role Phone Cinthya Ray MD Primary Care Provider [phone] Mayito Acuña PharmD Unavailable [phone] Reason for Visit * Reason Onset Date Comments Med Refill 10/30/2023 Encounter Details Date Type Department Care Team (Late st Contact Info) Description 10/30/2023 Refill [facility] MEDICINE [address] [place], [place] [phone] Cinthya Ray MD [address] [place], [place] [phone] Social History Tobacco Use Types Packs/Day Years [...] Description 07/30/2024 3:00 PM EDT Office Visit [facility] ADULT DENTAL [address] [place] [address] Demario Bocanegra documented as of this encounter [...] documented as of this encounter Care Teams Build Master Relationship Specialty Start Date End Date Cinthya Ray MD [address] [place] [address] PCP - General Family Medicine 10/23/11 Mayito Acuña PharmD [address] [place] [address] Pharmacist Internal Medicine 03/07/23 04/22/24 documented as of this encounter
--- OUTSIDE RECORDS SUMMARY | 2024-05-24 17:15 | XMS_ITS | Encounter Summary ---
Author Organization [employer] Address [address] [place] [address] 7 [place] [address] Care Team Providers Care Property Maintenance Supervisor Name Role Phone Cinthya Ray MD Primary Care Provider [phone] Mayito Acuña PharmD Unavailable [phone] Reason for Visit * Reason Onset Date Comments Med Refill 12/24/2023 Encounter Details Date Type Department Care Team (Late st Contact Info) Description 12/24/2023 Refill [facility] MED & PEDS [address] [place], [place] [phone] Cinthya Ray MD [address] [place] [address] Type 2 diabetes mellitus with hyperglycemia, without long-term current use of insulin ([facility]) Social History Tobacco Use Types Packs/Day Years [...] Description 07/30/2024 3:00 PM EDT Office Visit [facility] ADULT DENTAL [address] [place] [address] Demario Bocanegra documented as of this encounter [...] hyperglycemia, without long-term current use of insulin ([facility]) documented in this encounter Additional Health Concerns Assessment Noted Time PHQ-9 Depression Total Score: 11 024 9:48 AM EDT documented as of this encounter Care Teams Property Maintenance Supervisor Relationship Specialty Start Date End Date Cinthya Ray MD [address] [place] [address] PCP - General Family Medicine 10/23/11 Mayito Acuña, PharmD [address] [place] [address] Pharmacist Internal Medicine 03/07/23 04/22/24 documented as of this encounter
--- OUTSIDE RECORDS SUMMARY | 2024-05-24 17:15 | XMS_ITS | Encounter Summary ---
Author Organization [employer] Address [address] [facility] 7t [place] [address] Care Team Providers Care Cemetery Workers Supervisor Name Role Phone Cinthya Ray MD Primary Care Provider [phone] Mayito Acuña PharmD Unavailable [phone] Encounter Details Date Type Department Care Team ([facility] st Contact Info) Description 08/05/2023 Orders Only [facility] CHC MED & PEDS [address] [place], [place] [phone] Izzy Olvera FNP [address] [place] [address] Social History Tobacco Use Types Packs/Day Years [...] Description 07/30/2024 3:00 PM EDT Office Visit [facility] ADULT DENTAL [address] [place] [address] Demario Bocanegra documented as of this encounter [...] documented as of this encounter Care Teams Cemetery Workers Supervisor Relationship Specialty Start Date End Date Cinthya Ray MD [address] [place] [address] PCP - General Family Medicine 10/23/11 Mayito Acuña PharmD [address] [place] [address] Pharmacist Internal Medicine 03/07/23 04/22/24 documented as of this encounter
--- OUTSIDE RECORDS SUMMARY | 2024-05-24 17:15 | XMS_ITS | Encounter Summary ---
Author Organization [employer] Address [address] [place] [address] 7 [place] [address] Care Team Providers Care Facility Administrator Name Role Phone Cinthya Ray MD Primary Care Provider [phone] Reason for Visit * Reason Comments Med Refill Encounter Details Date Type Department Care Team ([facility] st Contact Info) Description 04/26/2024 Refill [facility] MEDICINE [address] [place], [place] [phone] Cinthya Ray MD [address] [place], [place] [phone] Social History Tobacco Use Types Packs/Day Years [...] 3:00 PM EDT Office Visit [facility] ADULT DENTAL [address] [place] [address] Demario Bocanegra documented as of this encounter [...] documented as of this encounter Care Teams Facility Administrator Relationship Specialty Start Date End Date Cinthya Ray MD [address] [place] [address] PCP - General Family Medicine 10/23/11 documented as of this encounter
--- OUTSIDE RECORDS SUMMARY | 2024-05-24 17:15 | XMS_ITS | Encounter Summary ---
Author Organization [employer] Address [address] [place] [address] 7 [place] [address] Care Team Providers Care Lock Stitch Channeler Name Role Phone Cinthya Ray MD Primary Care Provider [phone] Mayito Acuña PharmD Unavailable [phone] Reason for Visit * Reason Onset Date Comments Med Refill 09/29/2023 Encounter Details Date Type Department Care Team (Late st Contact Info) Description 09/29/2023 Refill [facility] MEDICINE [address] [place], [place] [phone] Cinthya Ray MD 230 [place], [place] [phone] Type 2 diabetes mellitus with hyperglycemia, without long-term current use of insulin ([facility]) Social History Tobacco Use Types Packs/Day Years [...] Description 07/30/2024 3:00 PM EDT Office Visit [facility] ADULT DENTAL [address] [place] [address] Demario Bocanegra documented as of this encounter [...] hyperglycemia, without long-term current use of insulin ([facility]) documented in this encounter Additional Health Concerns Assessment Noted Time PHQ-9 Depression Total Score: 11 024 9:48 AM EDT documented as of this encounter Care Teams Lock Stitch Channeler Relationship Specialty Start Date End Date Cinthya Ray MD 230 [place] [address] PCP - General Family Medicine 10/23/11 Mayito Acuña PharmD 230 [place] [address] Pharmacist Internal Medicine 03/07/23 04/22/24 documented as of this encounter
--- OUTSIDE RECORDS SUMMARY | 2024-05-24 17:15 | XMS_ITS | Encounter Summary ---
Author Organization [employer] Address [address] [facility] 7 [place] [address] Care Team Providers Care Applied Exercise Physiologist Name Role Phone Cinthya Ray MD Primary Care Provider [phone] Mayito Acuña PharmD Unavailable [phone] Encounter Details Date Type Department Care Team ([facility] st Contact Info) Description 06/30/2023 Orders Only [facility] MEDICINE 230 [place], [place] [phone] Mayito Acuña, PharmD [address] [place], [place] [phone] Type 2 diabetes mellitus with hyperglycemia, with long-term current use of insulin ([facility]) (Primary Dx) Social History Tobacco [...] Visit [facility] ADULT DENTAL [address] [place] [address] Demario Bocanegra documented as of this encounter Goals Goal Patient Goal Type Associated Problems Recent Progress Patient-Stated? Author Blood Pressure < 140/90 Blood Pressure 104/66(2024 3:34 PM EDT) No Mayito Acuña, Citlali Hemoglobin A1c < 7 Result Component 6.5( 3:35 PM EDT) No Mayito Acuña PharmD documented as of this encounter Procedures Procedure Name Priority Date/Time Associated Diagnosis Comments HEMATOXYLIN AND EOSIN STAIN Routine 06/30/2023 12:47 PM EDT Type 2 diabetes mellitus with hyperglycemia, with long-term current use of insulin ([facility]) documented in this encounter Results * Hematoxylin and Eosin Stain (06/30/2023 12:47 PM EDT) 06/30/2023 12:4 7 PM EDT 06/30/2023 1:27 PM EDT [facility] - 07/02/2023 9:30 AM EDT ----- ------- Name: Sonali Gill ?Age/Sex: 33/F ? : 1990 Unit#: [id number] ?? Attend Dr: Jose Figueroa MD ?Re06/30/23 ?Status: DEP SDC ? Location: HO.SSS ?Disch: ? ----- ------- SPEC : [id number] ? RECD: 06/30/23-1326 ? STATUS: ??SOUT ? REQ NUM: [id number] ? MELANIA: 06/30/23-1246 ? SUBM DR: Jose Figueroa MD ? ENTERED: ??06/30/23-9 ?SP TYPE: Surgical ? OTHR DR: Cinthya [...] Gill ?Age/Sex: 33/F ? : 1990 Unit#: [id number] ?? Attend Dr: Jose Figueroa MD ?Re06/30/23 ?Status: DEP SDC ? Location: HO.SSS ?Disch: ? ----- ------- SPEC : [id number] ? RECD: 06/30/23-1326 ? STATUS: ??SOUT ? REQ NUM: [id number] ? MELANIA: 06/30/23-1247 ? SUBM DR: Jose Figueroa MD ? ENTERED: ??06/30/23-7 ?SP TYPE: Surgical ? OTHR DR: Cinthya [...] To: ?? Jose Figueroa MD ?? [address] [facility] ?? [place] [address] ?? [phone] ?? Cinthya Ray MD ?? [address] [facility] ?? [place] [address] ?? ----- ------- Signed (signature on file) Esa Aguiar MD 07/02/23 8031 ? ----- ------- ? END OF REPORT ? us Generic External Data Provider LAB BLOOD ORDERAB LES Final Result [facility] [address] [place] [address] [phone] documented in this encounter Visit Diagnoses Diagnosis Type 2 diabetes mellitus with hyperglycemia, with long-term current use of insulin ([facility])- Primary documented in this encounter Additional Health Concerns Assessment Noted Time PHQ-9 Depression Total Score: 0 06/10/19 24 2:55 PM EDT documented as of this encounter Care Teams Applied Exercise Physiologist Relationship Specialty Start Date End Date Cinthya Ray MD [address] [place] [address] PCP - General Family Medicine 10/23/11 Mayito Acuña, DyanD [address] [place] [address] Pharmacist Internal Medicine 03/07/23 04/22/24 documented as of this encounter
--- OUTSIDE RECORDS SUMMARY | 2024-05-24 17:15 | XMS_ITS | Encounter Summary ---
Author Organization [facility] Address [address] [facility] 7t [place] [address] Care Team Providers Care Rn X Ray Name Role Phone Cinthya Ray MD Primary Care Provider [phone] Mayito Acuña PharmD Unavailable Encounter Details Date Type Department Care Team (Late Contact Info) Description 06/13/2022 Orders Only [facility] [address] [place], [place] [phone] Jerrica Girard FNP Social History Tobacco Use [...] Upcoming Encounters Date Type Department Care Team ([facility] Contact Info) Description 07/30/2024 3:00 PM EDT Office Visit [facility] CHC ADULT DENTAL [address] [place] [address] Demario Bocanegra documented as of this encounter Visit Diagnoses Not on filedocumented in this encounter Care Teams Rn X Ray Relationship Specialty Start Date End Date Cinthya Ray MD 230 [place] [address] PCP - General Family Medicine 10/23/11 Mayito Acuña, Citlali [address] [place] [address] Pharmacist Internal Medicine 03/07/23 04/22/24 documented as of this encounter
--- OUTSIDE RECORDS SUMMARY | 2024-05-24 17:15 | XMS_ITS | Encounter Summary ---
Author Organization [employer] [facility] Address [address] [place] [address] 7 [place] [address] Care Team Providers Care Notch Grinder Name Role Phone Cinthya Ray MD Primary Care Provider [phone] Mayito Acuña PharmD Unavailable [phone] Reason for Visit * Reason Onset Date Comments Medication Question 06/14/2022 Encounter Details Date Type Department Care Team ([facility] st Contact Info) Description 06/14/2022 Telephone [facility] MEDICINE [address] [place], [place] [phone] Cinthya Ray MD 230 [place] [address] Medication Question Social History Tobacco Use Types [...] Office Visit [facility] ADULT DENTAL [address] [place] [address] Demario Bocanegra documented as of this encounter Visit Diagnoses Not on filedocumented in this encounter Care Teams Notch Grinder Relationship Specialty Start Date End Date Cinthya Ray MD [address] [place] [address] PCP - General Family Medicine 10/23/11 Mayito Acuña, DyanD [address] [place] [address] Pharmacist Internal Medicine 03/07/23 04/22/24 documented as of this encounter
--- OUTSIDE RECORDS SUMMARY | 2024-05-24 17:15 | XMS_ITS | Encounter Summary ---
Author Organization [employer] Address [address] [facility] 7 [place] [address] Care Team Providers Care Software Security Consultant Name Role Phone Cinthya Ray MD Primary Care Provider [phone] Mayito Acuña PharmD Unavailable [phone] Encounter Details Date Type Department Care Team (Late st Contact Info) Description 04/07/2024 Orders Only [facility] MEDICINE 230 [place], [place] [phone] Lexis Spann MD [address] [place], [place] [phone] Social History Tobacco Use Types Packs/Day Years [...] Description 07/30/2024 3:00 PM EDT Office Visit [facility] ADULT DENTAL [address] [place] [address] Demario Bocanegra documented as of this encounter [...] as of this encounter Care Teams Software Security Consultant Relationship Specialty Start Date End Date Cinthya Ray MD [address] [place] [address] PCP - General Family Medicine 10/23/11 Mayito Acuña PharmD [address] [place] [address] Pharmacist Internal Medicine 03/07/23 04/22/24 documented as of this encounter
--- OUTSIDE RECORDS SUMMARY | 2024-05-24 17:15 | XMS_ITS | Encounter Summary ---
Author Organization [employer] Address [address] [place] [address] 7 [place] [address] Care Team Providers Care Ham Facer Name Role Phone Cinthya Ray MD Primary Care Provider [phone] Mayito Acuña PharmD Unavailable [phone] Reason for Visit * Reason Onset Date Comments Med Refill 09/29/2023 Encounter Details Date Type Department Care Team (Late st Contact Info) Description 09/29/2023 Refill [facility] CHC MED & PEDS [address] [place], [place] [phone] Cinthya Ray MD 230 [place] [address] Type 2 diabetes mellitus with hyperglycemia, without long-term current use of insulin ([facility]) Social History Tobacco Use Types Packs/Day Years [...] Description 07/30/2024 3:00 PM EDT Office Visit [facility] ADULT DENTAL [address] [place] [address] Demario Bocanegra documented as of this encounter [...] of insulin ([facility]) documented in this encounter Additional Health Concerns Assessment Noted Time PHQ-9 Depression Total Score: 11 024 9:48 AM EDT documented as of this encounter Care Teams Ham Facer Relationship Specialty Start Date End Date Cinthya Ray MD 230 [place] [address] PCP - General Family Medicine 10/23/11 Mayito Acuña PharmD [address] [place] [address] Pharmacist Internal Medicine 03/07/23 04/22/24 documented as of this encounter
--- OUTSIDE RECORDS SUMMARY | 2024-05-24 17:15 | XMS_ITS | Encounter Summary ---
Author Organization [facility] [facility] Address [address] [place] [address] 7 [place] [address] Care Team Providers Care On Site Coordinator Name Role Phone Cinthya Ray MD Primary Care Provider [phone] Mayito Acuña PharmD Unavailable [phone] Reason for Referral * Consultation (Urgent) - Closed Specialty Diagnoses / Procedures Referred By Contac t Referred To Contact Endocrinology Diagnoses Type 2 diabetes mellitus with hyperglycemia, with long-term current use of insulin (CMS/HCC) Cinthya Ray MD [address] [place] [address] Phone: tel: fax: [facility] Endocrinology [address] [place] [address] Phone: tel: fax: Referral ID Status Reason Start Date Expiration Date V isits Requested Visits Authorized [id number] Closed Specialty Services Required 04/19/2024 04/19/2025 12 12 Encounter Details Date Type Department Care Team (Late st Contact Info) Description 04/19/2024 Orders Only [facility] MEDICINE [address] [place], [place] [phone] Cinthya Ray MD [address] [place], [place] [phone] Type 2 diabetes mellitus with hyperglycemia, with [...] EDT Office Visit [facility] ADULT DENTAL [address] [place] [address] Demario Bocanegra Pending Results Name Type Priority Associated Diagnoses Date /Time Referral to Endocrinology Outpatient Referral Urgent Type 2 diabetes mellitus with hyperglycemia, with long-term current use of insulin ([facility]) 04/30/2024 Scheduled Referrals Name Type Priority Associated Diagnoses Order Schedule Referral to Endocrinology Outpatient Referral Urgent Type 2 diabetes mellitus with hyperglycemia, with long-term current use of insulin ([facility]) Expected: 04/19/2024 (Approximate), Expires: 04/19/2025 documented as [...] hyperglycemia, with long-term current use of insulin ([facility])- Primary documented in this encounter Additional Health Concerns Assessment Noted Time PHQ-9 Depression Total Score: 11 024 9:48 AM EDT documented as of this encounter Care Teams On Site Coordinator Relationship Specialty Start Date End Date Cinthya Ray MD [address] [place] [address] PCP - General Family Medicine 10/23/11 Mayito Acuña, Citlali [address] [place] [address] Pharmacist Internal Medicine 03/07/23 04/22/24 documented as of this encounter
--- OUTSIDE RECORDS SUMMARY | 2024-05-24 17:15 | XMS_ITS | Encounter Summary ---
Author Organization [employer] [facility] Address [address] [place] [address] 7 [place] [address] Care Team Providers Care Terra Cotta Setter Name Role Phone Cinthya Ray MD Primary Care Provider [phone] Mayito Acuña PharmD Unavailable [phone] Reason for Referral * Consultation (Routine) - Authorized Specialty Diagnoses / Procedures Referred By Contcarly t Referred To Contact Pharmacy Diagnoses Type 2 diabetes mellitus with hyperglycemia, with long-term current use of insulin (CMS/HCC) Cinthya Ray MD [address] [place] [address] Phone: tel: fax: Referral ID Status Reason Start Date Expiration Date Visits Requested Visits Authorized [id number] Authorized Consult and Treat 12/23/2023 12/22/2024 6 6 Encounter Details Date Type Department Care Team (Late st Contact Info) Description 12/23/2023 Orders Only [facility] MEDICINE [address] [place] [phone] Cinthya Ray MD [address] [place], [place] [phone] Type 2 diabetes mellitus with hyperglycemia, with [...] Description 07/30/2024 3:00 PM EDT Office Visit [facility] CHC ADULT DENTAL [address] [place] [address] Demario Bocanegra Scheduled Referrals Name Type Priority Associated Diagnoses Orde r Schedule Referral to Pharmacy CDTM Outpatient Referral Routine Type 2 diabetes mellitus with hyperglycemia, with long-term current use of insulin ([facility]) Ordered: 12/23/2023 documented as of this encounter [...] use of insulin ([facility])- Primary documented in this encounter Additional Health Concerns Assessment Noted Time PHQ-9 Depression Total Score: 11 024 9:48 AM EDT documented as of this encounter Care Teams Terra Cotta Setter Relationship Specialty Start Date End Date Cinthya Ray MD [address] [place] [address] PCP - General Family Medicine 10/23/11 Mayito Acuña PharmD [address] [place] [address] Pharmacist Internal Medicine 03/07/23 04/22/24 documented as of this encounter
--- OUTSIDE RECORDS SUMMARY | 2024-05-24 17:15 | XMS_ITS | Encounter Summary ---
Author Organization [facility] Address [address] [place] [address] 7 [place] [address] Care Team Providers Care Edi Programmer Analyst Name Role Phone Cinthya Ray MD Primary Care Provider [phone] Mayito Acuña PharmD Unavailable Reason for Visit * Reason Onset Date Comments Results 12/09/2022 Encounter Details Date Type Department Care Team ([facility] st Contact Info) Description 12/09/2022 Telephone [facility] MEDICINE [address] [place], [place] [phone] Cinthya Ray MD [address] [place] [address] Results Social History Tobacco Use Types Packs/Day [...] to US results. Please contact pt at [phone] documented in this encounter Plan of Treatment Upcoming Encounters Date Type Department Care Team (Late st Contact Info) Description 07/30/2024 3:00 PM EDT Office Visit [facility] CHC ADULT DENTAL [address] [place] [address] Demario Bocanegra documented as of this encounter Visit Diagnoses Not on filedocumented in this encounter Care Teams Edi Programmer Analyst Relationship Specialty Start Date End Date Cinthya Ray MD [address] [place] [address] PCP - General Family Medicine 10/23/11 Mayito Acuña, DyanD [address] [place] [address] Pharmacist Internal Medicine 03/07/23 04/22/24 documented as of this encounter
== END 2024-05-24 15:24 | disposition home or self-care (01) ==
LOC: HO.ENCR 14:44
PROVIDERS: PCP Family Medicine; Visit Provider Physician Assistant
DX: E11.649 Type 2 diabetes mellitus with hypoglycemia without coma (principal); I95.9 Hypotension, unspecified

== ENCOUNTER → 2024-05-24 14:44 | Outpatient (BNVA) | payer MEDICAID, SELFPAY | PROVIDERS: PCP Family Medicine; Visit Provider Physician Assistant | DX: E11.649 Type 2 diabetes mellitus with hypoglycemia without coma (principal); E66.9 Obesity, unspecified; I95.9 Hypotension, unspecified; Z79.84 Long term (current) use of oral hypoglycemic drugs; Z68.32 Body mass index [BMI] 32.0-32.9, adult | CPT/HCPCS: 82947; 99212 ==

== ENCOUNTER 2024-05-26 14:22 | Outpatient (AMB) | payer MEDICAID, SELFPAY ==
--- NOTE | 2024-05-26 14:28 | A.OFFVIS_ITS ---
Vital Signs 05/26/24 14:29 Height 5 ft 2 in Weight 176 lb BMI 32.2 Intake Visit Reasons: Left shoulder pain and stiffness Intake Note: Sonali is a 34 year old right hand dominant female who presents with complaints of progressively worsening left shoulder pain and stiffness. The patient states that she injured her left shoulder approximately 2 years ago. She has gone to formal physical therapy which seemed to aggravate her pain. The patient reports difficulty lifting her left hand above shoulder height. She has failed the last 6 weeks of conservative treatment which has included physical therapy exercises, Tylenol and anti-inflammatory medicines. The patient states that her left shoulder pain and stiffness are now interfering with her activities of daily living and her ability to sleep well through the night. She denies any numbness or tingling in either of her upper extremities. Allergies Seasonal Allergies Allergy (Mild, Verified 05/24/24 14:49) Runny Nose Medication List - Last Reconciled 05/26/24 by Al Hays MD metformin 500 mg PO BID pantoprazole 40 mg PO DAILY sumatriptan succinate 25 mg PO Q2-4H PRN tirzepatide (Mounjaro) 10 mg (0.5 mL) subcut QWEEK [facility] Medical History Fatty liver GERD (gastroesophageal reflux disease) Anxiety Depression Insulin dependent type 2 diabetes mellitus Migraines BMI 32.0-32.9,adult Gallstones Body mass index (BMI) of 38.0 to 38.9 in adult Obesity Surgical History History of esophagogastroduodenoscopy (EGD) History of cholecystectomy H/O tubal ligation History of surgery on wrist Hx of section Family History Father HTN (hypertension) Mother No problems noted. Sister Arthritis Knee problem Sister Arthritis Allergies Knee problem Brother No problems noted. Brother No problems noted. Son No problems noted. Son Autism Family/Other Breast cancer Social History Household Members Other:: minor children Are you a primary critical care unit nurse to a significant other at home: Yes Do you presently have visiting nurse or other home services: No Alcohol intake: never Patient Tobacco Use Status: Never used Tobacco Current occupation: rt handed Physical Exam Vital Signs: BMI result Body Mass Index 32.2 Const Other: Well-nourished well-developed very friendly female awake alert and oriented x3 in no acute distress Extrem Other: Bilateral upper extremity examination shows good capillary refill, no skin lesions noted, normal sensation light touch Left shoulder examination shows decreased active and passive range of motion when compared to her right shoulder, 4+ out of 5 strength with supraspinatus testing, positive impingement signs, tenderness over her acromioclavicular joint, no instability Results Reviewed Results Reviewed: MRI of the patient's left shoulder show severe acromioclavicular joint narrowing, a type 2 acromion, signal change within the supraspinatus tendon most likely due to adhesive capsulitis, no acute bony abnormalities Assessment & Plan Assessment & Plan (1) Impingement syndrome of left shoulder: Code(s): M75.42 - Impingement syndrome of left shoulder Category: Medical Plan Ms. Jose Rosa presents with left shoulder pain and stiffness due to impingement syndrome, acromioclavicular joint arthritis and adhesive capsulitis. I had a lengthy discussion with the patient regarding the treatment options. At this point she has failed continued non operative treatments. The risks and benefits of left shoulder surgery were discussed at length with the patient. The patient wishes to proceed with surgery. Surgery will involve left shoulder arthroscopic distal clavicle excision, acromioplasty, capsular release and manipulation under anesthesia. She will be given a prescription for pain medicine at the time of her surgery. The patient will follow-up as instructed. Feel free to call me at any time should questions regarding her orthopedic management arise. I spent 20 minutes in reviewing the patient's records and imaging studies, seeing the patient and documenting in the medical record. Coding Level of Care Code Est Pt Level 3 (66223) Complex EM visit Add On G2211 Diagnoses Impingement syndrome of left shoulder M75.42
[2024-05-26 14:29] VITALS: BMI 32.2
--- OUTSIDE RECORDS SUMMARY | 2024-05-26 17:09 | XMS_ITS | Encounter Summary ---
Author Organization [employer] [facility] Address [address] [place] [address] 7 [place] [address] Care Team Providers Care Sponge Packer Name Role Phone Cinthya Ray MD Primary Care Provider [phone] Mayito Acuña PharmD Unavailable [phone] Reason for Visit * Reason Onset Date Comments Medication Question 06/14/2022 Encounter Details Date Type Department Care Team ([facility] st Contact Info) Description 06/14/2022 Telephone [facility] [address] [place], [place] [phone] Cinthya Ray MD 230 [place], [place] [phone] Medication Question Social History Tobacco Use Types [...] [facility] [address] [place] [address] Demario Bocanegra documented as of this encounter Visit Diagnoses Not on filedocumented in this encounter Care Teams Sponge Packer Relationship Specialty Start Date End Date Cinthya Ray MD [address] [place] [address] PCP - General Family Medicine 10/23/11 Mayito Acuña, DyanD [address] [place] [address] Pharmacist Internal Medicine 03/07/23 04/22/24 documented as of this encounter
--- OUTSIDE RECORDS SUMMARY | 2024-05-26 17:09 | XMS_ITS | Encounter Summary ---
Author Organization [employer] Address [address] [facility] 7 [place] [address] Care Team Providers Care Boat Canvas Installer Name Role Phone Cinthya Ray MD Primary Care Provider [phone] Mayito Acuña PharmD Unavailable [phone] Encounter Details Date Type Department Care Team ([facility] st Contact Info) Description 03/05/2023 Orders Only [facility] MED[facility]INE 230 [place], [place] [phone] Cinthya Ray MD 230 [place], [place] [phone] Social History Tobacco Use Types Packs/Day Years [...] Visit [facility] ADULT DENTAL [address] [place] [address] Demario Bocanegra documented as of this encounter Goals Goal Patient Goal Type Associated Problems Recent Progress Patient-Stated? Author Blood Pressure < 140/90 Blood Pressure 104/66(2024 3:34 PM EDT) No Mayito Acuña, PharmDao Hemoglobin A1c < 7 Result Component 6.5( 3:35 PM EDT) No Mayito Acuña PharmD documented as of this encounter Visit Diagnoses Not on filedocumented in this encounter Care Teams Boat Canvas Installer Relationship Specialty Start Date End Date Cinthya Ray MD [address] [place] [address] PCP - General Family Medicine 10/23/11 Mayito Acuña PharmD [address] [place] [address] Pharmacist Internal Medicine 03/07/23 04/22/24 documented as of this encounter
--- OUTSIDE RECORDS SUMMARY | 2024-05-26 17:09 | XMS_ITS | Encounter Summary ---
Author Organization [employer] [facility] Address [address] [place] [address] 7 [place] [address] Care Team Providers Care Telephone Betting Clerk Name Role Phone Cinthya Ray MD Primary Care Provider [phone] Mayito Acuña PharmD Unavailable [phone] Reason for Visit * Reason Onset Date Comments Med Refill 10/30/2023 Encounter Details Date Type Department Care Team (Late st Contact Info) Description 10/30/2023 Refill [facility] MED[facility]INE 230 [place], [place] [phone] Cinthya Ray MD 230 [place], [place] [phone] Social History Tobacco Use Types Packs/Day Years [...] Description 07/30/2024 3:00 PM EDT Office Visit [facility] ADULT DENTAL [address] [place] [address] Demario Bocanegra documented as of this encounter [...] documented as of this encounter Care Teams Telephone Betting Clerk Relationship Specialty Start Date End Date Cinthya Ray MD [address] [place] [address] PCP - General Family Medicine 10/23/11 Mayito Acuña PharmD [address] [place] [address] Pharmacist Internal Medicine 03/07/23 04/22/24 documented as of this encounter
--- OUTSIDE RECORDS SUMMARY | 2024-05-26 17:09 | XMS_ITS | Encounter Summary ---
Author Organization [employer] Address [address] [place] [address] 7 [place] [address] Care Team Providers Care Senior Assistant Manager Name Role Phone Cinthya Ray MD Primary Care Provider [phone] Mayito Acuña PharmD Unavailable [phone] Reason for Visit * Reason Onset Date Comments callback request 12/30/2023 Encounter Details Date Type Department Care Team ([facility] st Contact Info) Description 12/30/2023 Telephone [facility]INE 230 [place], [place] [phone] Cinthya Ray MD 230 [place] [address] callback request Social History Tobacco Use Types [...] the past 12 months, has t he [employer], gas, oil or water company threatened to [...] EST Tc from pt returning call from [facility] to book an appointment for follow up Callback [phone] documented in this encounter Plan of Treatment Upcoming Encounters Date Type Department Care Team (Late st Contact Info) Description 07/30/2024 3:00 PM EDT Office Visit [facility] 505 [place] [address] Demario Bocanegra documented as of this encounter [...] as of this encounter Care Teams Senior Assistant Manager Relationship Specialty Start Date End Date Cinthya Ray MD [address] [place] [address] PCP - General Family Medicine 10/23/11 Mayito Acuña PharmD [address] [place] [address] Pharmacist Internal Medicine 03/07/23 04/22/24 documented as of this encounter
--- OUTSIDE RECORDS SUMMARY | 2024-05-26 17:09 | XMS_ITS | Encounter Summary ---
Author Organization [employer] Address [address] [place] [address] 7 [place] [address] Care Team Providers Care Anesthesiology Crna Name Role Phone Cinthya Ray MD Primary Care Provider [phone] Reason for Visit * Reason Comments Med Refill Encounter Details Date Type Department Care Team ([facility] st Contact Info) Description 04/26/2024 Refill [facility] MED[facility]INE [address] [place], [place] [phone] Cinthya Ray MD 230 [place], [place] [phone] Social History Tobacco Use Types Packs/Day Years [...] PM EDT Office Visit [facility] ADULT DENTAL [address] [place] [address] Demario Bocanegra documented as of this encounter [...] documented as of this encounter Care Teams Anesthesiology Crna Relationship Specialty Start Date End Date Cinthya Ray MD [address] [place] [address] PCP - General Family Medicine 10/23/11 documented as of this encounter
--- OUTSIDE RECORDS SUMMARY | 2024-05-26 17:09 | XMS_ITS | Encounter Summary ---
Author Organization [email or web address] Address [address] [facility] 7 [place] [address] Care Team Providers Care Wastewater Treatment Plant Supervisor Name Role Phone Cinthya Ray MD Primary Care Provider [phone] Mayito Acuña PharmD Unavailable [phone] Encounter Details Date Type Department Care Team (Late st Contact Info) Description 04/07/2024 Orders Only [facility] MED[facility]INE 230 [place], [place] [phone] Lexis Spann MD 230 [place], [place] [phone] Social History Tobacco Use Types Packs/Day Years [...] 3:00 PM EDT Office Visit [facility] ADULT DENTAL [address] [place] [address] Demario Bocanegra documented as of this encounter [...] documented as of this encounter Care Teams Wastewater Treatment Plant Supervisor Relationship Specialty Start Date End Date Cinthya Ray MD [address] [place] [address] PCP - General Family Medicine 10/23/11 Mayito Acuña PharmD [address] [place] [address] Pharmacist Internal Medicine 03/07/23 04/22/24 documented as of this encounter
--- OUTSIDE RECORDS SUMMARY | 2024-05-26 17:09 | XMS_ITS | Encounter Summary ---
Author Organization [employer] [facility] Address [address] [place] [address] 7 [place] [address] Care Team Providers Care Pinball Machine Repairer Name Role Phone Cinthya Ray MD Primary Care Provider [phone] Mayito Acuña PharmD Unavailable [phone] Reason for Referral * Consultation (Routine) - Authorized Specialty Diagnoses / Procedures Referred By Contcarly t Referred To Contact Pharmacy Diagnoses Type 2 diabetes mellitus with hyperglycemia, with long-term current use of insulin (CMS/HCC) Cinthya Ray MD [address] [place] [address] Phone: tel: fax: Referral ID Status Reason Start Date Expiration Date Visits Requested Visits Authorized [id number] Authorized Consult and Treat 12/23/2023 12/22/2024 6 6 Encounter Details Date Type Department Care Team (Late st Contact Info) Description 12/23/2023 Orders Only [facility] [address] [place] [phone] Cinthya Ray MD 230 [place], [place] [phone] Type 2 diabetes mellitus with hyperglycemia, with [...] Description 07/30/2024 3:00 PM EDT Office Visit [facility] [address] [place] [address] Demario Bocanegra Scheduled Referrals Name Type Priority Associated Diagnoses Orde r Schedule Referral to Pharmacy CDTM Outpatient Referral Routine Type 2 diabetes mellitus with hyperglycemia, with long-term current use of insulin ([facility]) Ordered: 12/23/2023 documented as of this encounter [...] hyperglycemia, with long-term current use of insulin ([facility])- Primary documented in this encounter Additional Health Concerns Assessment Noted Time PHQ-9 Depression Total Score: 11 024 9:48 AM EDT documented as of this encounter Care Teams Pinball Machine Repairer Relationship Specialty Start Date End Date Cinthya Ray MD [address] [place] [address] PCP - General Family Medicine 10/23/11 Mayito Acuña PharmD [address] [place] [address] Pharmacist Internal Medicine 03/07/23 04/22/24 documented as of this encounter
--- OUTSIDE RECORDS SUMMARY | 2024-05-26 17:09 | XMS_ITS | Encounter Summary ---
Author Organization [employer] Address [address] [facility] 7 [place] [address] Care Team Providers Care Gun Sealing Machine Operator Name Role Phone Cinthya Ray MD Primary Care Provider [phone] Mayito Acuña PharmD Unavailable [phone] Encounter Details Date Type Department Care Team (Late st Contact Info) Description 01/31/2024 Orders Only [facility] MED[facility]INE 230 [place], [place] [phone] Cinthya Ray MD 230 [place], [place] [phone] Vitamin D deficiency (Primary Dx) Social History [...] Visit [facility] ADULT DENTAL [address] [place] [address] Demario Bocanegra documented as of this encounter [...] documented as of this encounter Care Teams Gun Sealing Machine Operator Relationship Specialty Start Date End Date Cinthya Ray MD [address] [place] [address] PCP - General Family Medicine 10/23/11 Mayito Acuña PharmD [address] [place] [address] Pharmacist Internal Medicine 03/07/23 04/22/24 documented as of this encounter
--- OUTSIDE RECORDS SUMMARY | 2024-05-26 17:09 | XMS_ITS | Encounter Summary ---
Author Organization [facility] Address [address] [place] [address] 7 [place] [address] Care Team Providers Care Consumer Lending Manager Name Role Phone Cinthya Ray MD Primary Care Provider Mayito Acuña PharmD Unavailable [phone] Encounter Details Date Type Department [facility] Team ([facility] Info) Description 02/26/[address] [facility] 230 [place], [place] [phone] Cinthya Ray MD [address] [place] [address] Social History Tobacco Use Types Packs/Day Years [...] Description 07/30/2024 3:00 PM EDT Office Visit [facility] [address] [place] [address] Demario Bocanegra documented as of this encounter Visit Diagnoses Not on filedocumented in this encounter Care Teams Consumer Lending Manager Relationship Specialty Start Date End Date Cinthya Ray MD [address] [place] [address] PCP - General Family Medicine 10/23/11 Mayito Acuña, Citlali [address] [place] [address] Pharmacist Internal Medicine 03/07/23 04/22/24 documented as of this encounter
--- OUTSIDE RECORDS SUMMARY | 2024-05-26 17:09 | XMS_ITS | Encounter Summary ---
Author Organization [employer] Address [address] [place] [address] 7 [place] [address] Care Team Providers Care Topographical Field Assistant Name Role Phone Cinthya Ray MD Primary Care Provider [phone] Mayito Acuña PharmD Unavailable [phone] Reason for Visit * Reason Onset Date Comments Med Refill 03/12/2024 Encounter Details Date Type Department Care Team (Late st Contact Info) Description 03/12/2024 Refill [facility] [address] [place], [place] [phone] Cinthya Ray MD [address] [place] [address] Type 2 diabetes mellitus with hyperglycemia, without long-term current use of insulin ([facility]) Social History Tobacco Use Types Packs/Day [...] Description 07/30/2024 3:00 PM EDT Office Visit [facility] ADULT DENTAL [address] [place] [address] Demario Bocanegra documented as of this encounter [...] without long-term current use of insulin ([facility]) documented in this encounter Additional Health Concerns Assessment Noted Time PHQ-9 Depression Total Score: 11 024 9:48 AM EDT documented as of this encounter Care Teams Topographical Field Assistant Relationship Specialty Start Date End Date Cinthya Ray MD [address] [place] [address] PCP - General Family Medicine 10/23/11 Mayito Acuña, PharmD [address] [place] [address] Pharmacist Internal Medicine 03/07/23 04/22/24 documented as of this encounter
--- OUTSIDE RECORDS SUMMARY | 2024-05-26 17:09 | XMS_ITS | Encounter Summary ---
Author Organization [employer] [facility] Address [address] [place] [address] 7 [place] [address] Care Team Providers Care Maintenance Painter Apprentice Name Role Phone Cinthya Ray MD Primary Care Provider [phone] Encounter Details Date Type Department Care Team [...] 3:00 PM EDT Office Visit [facility] ADULT D[facility] [address] [place] [address] Demario Bocanegra documented as of this encounter [...] Whole Blood 168(H) 60 - 115 mg/dL [facility] Comment:METER #: [id number] 5Testing performed in the Endocrinology Department [address] , [address], [facility]. 05/24/2024 2:51 PM EDT 05/24/2024 2:54 PM EDT us Generic External Data Provider LAB BLOOD ORDERAB LES Final Result [facility] [address] [place] [address] [phone] documented in this encounter Visit Diagnoses Not on filedocumented in this encounter Additional Health Concerns Assessment Noted Time PHQ-9 Depression Total Score: 14 025 3:57 PM EDT documented as of this encounter Care Teams Maintenance Painter Apprentice Relationship Specialty Start Date End Date Cinthya Ray MD [address] [place] [address] PCP - General Family Medicine 10/23/11 documented as of this encounter
--- OUTSIDE RECORDS SUMMARY | 2024-05-26 17:09 | XMS_ITS | Encounter Summary ---
Author Organization [employer] [facility] Address [address] [place] [address] 7 [place] [address] Care Team Providers Care Silk Screen Processor Name Role Phone Cinthya Ray MD Primary Care Provider [phone] Mayito Acuña PharmD Unavailable [phone] Reason for Referral * Consultation (Urgent) - Closed Specialty Diagnoses / Procedures Referred By Contac t Referred To Contact Endocrinology Diagnoses Type 2 diabetes mellitus with hyperglycemia, with long-term current use of insulin (CMS/HCC) Cinthya Ray MD [address] [place] [address] Phone: tel: fax: [facility] [place] [address] [place] [address] Phone: tel: fax: Referral ID Status Reason Start Date Expiration Date V isits Requested Visits Authorized [id number] Closed Specialty Services Required 04/19/2024 04/19/2025 12 12 Encounter Details Date Type Department Care Team (Late st Contact Info) Description 04/19/2024 Orders Only [facility] MEDICINE [address] [place], [place] [phone] Cinthya Ray MD [address] [place], [place] [phone] Type 2 diabetes mellitus with hyperglycemia, with [...] [facility] ADULT DENTAL [address] [place] [address] Demario Bocanegra Pending Results Name Type Priority Associated Diagnoses Date /Time Referral to Endocrinology Outpatient Referral Urgent Type 2 diabetes mellitus with hyperglycemia, with long-term current use of insulin ([facility]) 04/30/2024 Scheduled Referrals Name Type Priority Associated Diagnoses Order Schedule Referral to Endocrinology Outpatient Referral Urgent Type 2 diabetes mellitus with hyperglycemia, with long-term current use of insulin ([facility]) Expected: 04/19/2024 (Approximate), Expires: 04/19/2025 documented as [...] hyperglycemia, with long-term current use of insulin ([facility])- Primary documented in this encounter Additional Health Concerns Assessment Noted Time PHQ-9 Depression Total Score: 11 024 9:48 AM EDT documented as of this encounter Care Teams Silk Screen Processor Relationship Specialty Start Date End Date Cinthya Ray MD [address] [place] [address] PCP - General Family Medicine 10/23/11 Mayito Acuña, Citlali [address] [place] [address] Pharmacist Internal Medicine 03/07/23 04/22/24 documented as of this encounter
--- OUTSIDE RECORDS SUMMARY | 2024-05-26 17:09 | XMS_ITS | Encounter Summary ---
Author Organization [employer] Address [address] [place] [address] 7 [place] [address] Care Team Providers Care Room Service Waiter Name Role Phone Cinthya Ray MD Primary Care Provider [phone] Reason for Visit * Reason Onset Date Comments Prior Auth Prescription 05/24/2024 Encounter Details Date Type Department Care Team (Late st Contact Info) Description 05/24/2024 Refill [facility] MEDICINE [address] [place], [place] [phone] Cinthya Ray MD [address] [place], [place] [phone] Social History Tobacco Use Types Packs/Day Years [...] as of this encounter Miscellaneous Notes * Addendum Note - Rianna Solis RN - 05/25/2024 2:39 PM EDTAddended by: RIANNA SOLIS on: 05/25/2024 02:39 PM Modules accepted: Orders * Telephone Encounter - Rianna Solis RN - 05/25/2024 2:35 PM EDT I spoke with pt and informed that I will generate PA right now. PA generated and placed on provider's desk. Pending signature. Informed that it can take up to 21 days for insurance to provide response. Pt wondering if she can get Alley 2 sensors to hold her over until then. I called pharmacy, spokewith Rosaura who states Alley 2 sensor PA still active, they just need a script and they can fill itfor the pt. * Telephone Encounter - Martín George - 05/25/2024 2:02 PM EDT Tc pt request update on PA sensor . Pt is eager to speak with someone now . Pt call got disconnected. * Telephone Encounter - Valerie Garcia RN - 05/25/2024 9:11 AM EDT Called [facility] Endocrinology, spoke with DUSTIN Morse. Endo expressed confusion due to [facility] and Endo prescribing pt's endo meds. Asked her to send message to endo provider asking if its appropriate for CGM and if so, to prescribe it to allow for consistently in the pt's endocrinology care. Mini verbalized understanding, to call back with update from endo provider. * Telephone Encounter - Valerie Garcia RN - 05/24/2024 4:15 PM EDT From med list for [employer] Alley 3 sensors: Note to Pharmacy: Replaces Alley 2. Patient monitors with smartphone, does not need reader. Patientwill make transition to Alley 3 when supply of Alley 2 completed. Called [facility] pharmacy, no active Rx for Alley 2 sensors (). PA required for Alley 3. Pharmacy stating that pt now following with Endocrinology as well, unsure if they should be prescribing. Willtask to call when office is open to clarify. * Telephone Encounter - Binta Roland - 05/24/2024 4:01 PM EDT Patient walked in requesting PA for CGM. Script was sent but no PA has been generated (Patient wants free style alley 3). Patient says she has the manual reader but would rather have the CGM doesn't want to prick fingers every day. Advised message would be sent. documented in this encounter Plan of Treatment Upcoming Encounters Date Type Department Care Team (Late st Contact Info) Description 07/30/2024 3:00 PM EDT Office Visit [facility] CHC ADULT DENTAL [address] [place] [address] Demario Bocanegra documented as of this encounter [...] documented as of this encounter Care Teams Room Service Waiter Relationship Specialty Start Date End Date Cinthya Ray MD [address] [place] [id number] PCP - General Family Medicine 10/23/11 documented as of this encounter
--- OUTSIDE RECORDS SUMMARY | 2024-05-26 17:09 | XMS_ITS | Encounter Summary ---
Author Organization [email or web address] Address [address] [place] [address] 7 [place] [address] Care Team Providers Care Hvac Project Manager Name Role Phone Cinthya Ray MD Primary Care Provider [phone] Mayito Acuña PharmD Unavailable [phone] Reason for Visit * Reason Onset Date Comments Med Refill 01/03/2023 Encounter Details Date Type Department Care Team (Late st Contact Info) Description 01/03/2023 Refill [facility] MEDICINE [address] [place], [place] [phone] Cinthya Ray MD [address] [place], [place] [phone] Social History Tobacco Use Types Packs/Day Years [...] [facility] ADULT DENTAL [address] [place] [address] Demario Bocanegra documented as of this encounter Visit Diagnoses Not on filedocumented in this encounter Care Teams Hvac Project Manager Relationship Specialty Start Date End Date Cinthya Ray MD [address] [place] [id number] PCP - General Family Medicine 10/23/11 Mayito Acuña, DyanD [address] [place] [phone] Pharmacist Internal Medicine 03/07/23 04/22/24 documented as of this encounter
--- OUTSIDE RECORDS SUMMARY | 2024-05-26 17:09 | XMS_ITS | Encounter Summary ---
Author Organization [employer] Address [address] [facility] [address] [place] [address] Care Team Providers Care Occupational Therapy Director Name Role Phone Cinthya Ray MD Primary Care Provider [phone] Mayito Acuña PharmD Unavailable [phone] Encounter Details Date Type Department Care Team ([facility] st Contact Info) Description 08/05/2023 Orders Only [facility] CHC MED & PEDS [address] [place], [place] [phone] Izzy Olvera FNP [address] [place] [address] Social History Tobacco Use Types Packs/Day Years [...] [facility] ADULT DENTAL [address] [place] [address] Demario Bocanegra documented as of this encounter [...] documented as of this encounter Care Teams Occupational Therapy Director Relationship Specialty Start Date End Date Cinthya Ray MD [address] [place] [id number] PCP - General Family Medicine 10/23/11 Mayito Acuña PharmD [address] [place] [phone] Pharmacist Internal Medicine 03/07/23 04/22/24 documented as of this encounter
--- OUTSIDE RECORDS SUMMARY | 2024-05-26 17:09 | XMS_ITS | Encounter Summary ---
Author Organization [employer] Address [address] [place] [address] [address] [place] [address] Care Team Providers Care Occupational Physician Name Role Phone Cinthya Ray MD Primary Care Provider [phone] Mayito Acuña PharmD Unavailable [phone] Reason for Visit * Reason Onset Date Comments Med Refill 10/30/2023 Encounter Details Date Type Department Care Team (Late st Contact Info) Description 10/30/2023 Refill [facility] CHC MED & PEDS [address] [place], [place] [phone] Cinthya Ray MD [address] [place] [address] Type 2 diabetes mellitus with hyperglycemia, without long-term current use of insulin ([facility]) Social History Tobacco Use Types Packs/Day Years [...] [facility] ADULT DENTAL [address] [place] [address] Demario Bocanegra documented as of this encounter [...] hyperglycemia, without long-term current use of insulin ([facility]) documented in this encounter Additional Health Concerns Assessment Noted Time PHQ-9 Depression Total Score: 11 024 9:48 AM EDT documented as of this encounter Care Teams Occupational Physician Relationship Specialty Start Date End Date Cinthya Ray MD [address] [place] [address] PCP - General Family Medicine 10/23/11 Mayito Acuña PharmD [address] [place] [phone] Pharmacist Internal Medicine 03/07/23 04/22/24 documented as of this encounter
--- OUTSIDE RECORDS SUMMARY | 2024-05-26 17:09 | XMS_ITS | Clinical Summary ---
Author Organization [employer] Address [address] [place] [address] 7 [place] [address] Care Team Providers Care Environmental Research Project Manager Name Role Phone Cinthya Ray MD Primary Care Provider [phone] Allergies No known active allergies Medications * This document contains information received from the source organization and may not represent a complete record from that organization. Alcohol Swabs (Alcohol Prep) 70 % padsIndications: Type 2 diabetes mellitus with hyperglycemia ([facility]) USE FOUR TIMES DAILY AND NEEDED 100 each 11 023 Active TRUEplus Lancets 33G miscIndications: Type 2 diabetes mellitus with hyperglycemia ([facility]) TEST BLOOD SUGAR FOUR TIMES DAILY [...] 360 tablet 1 025 Active Continuous Glucose [employer] Caser (FreeStyle Audrey 3 [place]) deviceIndication s:Type 2 diabetes mellitus with hyperglycemia, [...] nausea or vomiting. 30 tablet 025 Active Continuous Glucose Sensor (FreeStyle Audrey 2 Sensor) misc Scan at least every 8 hours. Change sensor every 14 days. 2 each 1 025 Active insulin pen needle (BD Pen Needle Rowena 2nd Gen) 32G x 4 mm misc USE WITH INSULIN ONCE A DAY 100 each 11 025 2024 Discontinued(R eorder (will not trigger notification to Pharmacy)) insulin degludec (Tresiba FlexTouch) 100 UNIT/ML injectionIndicat ions:Type 2 diabetes mellitus with hyperglycemia, without long-term current use of insulin ([facility]) INJECT 35 UNITS SUBCUTANEOUSLY ONCE EVERY [...] (05/04/2024 4:55 AM EDT): - following with [facility] - Dx impingement syndrome - completed [...] both her parents. 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 -Repeat EGD in 2 years -Continue pantoprazole Assessment & Plan (09/09/2023 6:00 AM EDT): -Following with [facility], last seen on -06/30/23 [...] a bariatric surgery and went to [facility] wt management clinic. She restarted going to [facility]t management clinic. - She had worked with our diabetes education nurse, Ene Arias from Nov to Dec 2021. - Graduated from [facility]. - Eye exam: 01/28/24. [facility]. Nonregenerative diabetic retinopathy, bilateral, mild. [...] a bariatric surgery and went to [facility] wt management clinic. She restarted going to [facility] management clinic. - She had worked with our diabetes education nurse, Ene Arias from Nov to Dec 2021. - Currently showing good attendance to [facility]; appreciated her effort - Eye exam: 01/24/23 [facility]. No diabetic retinopathy - Comprehensive [...] considering a bariatric surgery and went to [facility] management clinic - She had worked with our diabetes education nurse, Ene Arias from Nov to Dec 2021. - Currently showing good attendance to [facility]; appreciated her effort - Eye exam: 01/24/23 [facility]. No diabetic retinopathy - Comprehensive [...] a bariatric surgery and went to [facility] wt management clinic - She had worked with our diabetes education nurse, Ene Arias from Nov to Dec 2021. - Currently showing good attendance to [facility]; appreciated her effort - Eye exam: 01/24/23 [facility]. No diabetic retinopathy - Comprehensive [...] considering a bariatric surgery and went to [facility] management clinic - She had worked with our diabetes education nurse, Ene Arias from Nov to Dec 2021. - Currently showing good attendance to [facility]; appreciated her effort - Eye exam: 01/24/23 [facility]. No diabetic retinopathy - Comprehensive [...] considering a bariatric surgery and went to [facility] management clinic - She had worked with our diabetes education nurse, Ene Arias from Nov to Dec 2021. - Currently showing good attendance to [facility]; appreciated her effort - Eye exam: 01/24/23 [facility]. No diabetic retinopathy - Comprehensive [...] a bariatric surgery and went to [facility] wt management clinic - She had worked with our diabetes education nurse, Ene Arias from Nov to Dec 2021. - Refer to [facility] - Eye exam: 01/24/23 [facility]. No diabetic retinopathy - Comprehensive [...] a bariatric surgery and went to [facility] wt management clinic - She had worked with our diabetes education nurse, Ene Arias from Nov to Dec 2021. - Eye exam: 01/21/22 [facility]. No diabetic retinopathy - Comprehensive [...] a bariatric surgery and went to [facility] wt management clinic - She had worked with our diabetes education nurse, Ene Arias from Nov to Dec 2021. - Eye exam: 01/21/22 [facility]. No diabetic retinopathy - Comprehensive [...] a bariatric surgery and went to [facility] wt management clinic - She had worked with our diabetes education nurse, Ene Arias from Nov to Dec 2021. - Eye exam: 01/21/22 [facility]. No diabetic retinopathy - Comprehensive [...] a bariatric surgery and went to [facility] wt management clinic - She had worked with our diabetes education nurse, Ene Arias from Nov to Dec 2021. - Eye exam: 01/21/22 [facility]. No diabetic retinopathy - Comprehensive [...] a bariatric surgery and went to [facility] wt management clinic - She had worked with our diabetes education nurse, Ene Arias from Nov to Dec 2021. - Eye exam: 01/21/22 [facility]. No diabetic retinopathy - Comprehensive [...] a bariatric surgery and went to [facility] wt management clinic - She had worked with our diabetes education nurse, Een Arias from Nov to Dec 2021. - Eye exam: 01/21/22 [facility]. No diabetic retinopathy - Comprehensive [...] 2021. - completed Partial Hospitalization Program at [facility] 11/09/21 - 11/23/21 - current medication: none -Previous medication treatment Hx: venlafaxine was self-discontinued; trazodone was prescribed by psychiatrist while she was attending [facility], but pt self-discontinued due to ineffectivenss; sertraline 50 mg daily, patient self-discontinued. - previously seeing [facility] clinician and waiting for psychiatrist, patient has not been engaged in behavioral health therapy currently. - contacted by [facility] service and was referred to off-site service - patient has developed healthy coping skills Assessment & Plan (11/30/2023 1:22 PM EDT): - MDD vs. bipolar - severe exacerbation of Depression w/ SI in October 2021. - completed Partial Hospitalization Program at [facility] 11/09/21 - 11/23/21 - current medication: none -Previous medication treatment Hx: venlafaxine was self-discontinued; trazodone was prescribed by psychiatrist while she was attending [facility], but pt self-discontinued due to ineffectivenss; sertraline 50 mg daily, patient self-discontinued. - previously seeing [facility] clinician and waiting for psychiatrist, patient has not been engaged in behavioral health therapy currently. - contacted by [facility] service and was referred to off-site service - patient has developed healthy coping skills Assessment & Plan (03/07/2023 5:55 AM EST): - MDD vs. bipolar - severe exacerbation of Depression w/ SI in October 2021. - completed Partial Hospitalization Program at [facility] 11/09/21 - 11/23/21 - current medication: none -Previous medication treatment Hx: venlafaxine was self-discontinued; trazodone was prescribed by psychiatrist while she was attending [facility], but pt self-discontinued due to ineffectivenss; sertraline 50 mg daily, patient self-discontinued. - previously seeing [facility] clinician and waiting for psychiatrist, patient has not been engaged in behavioral health therapy currently. - will consider referring back Assessment & Plan (11/12/2022 4:17 PM EDT): - severe exacerbation of Depression w/ SI in October 2021. - completed Partial Hospitalization Program at [facility] 11/09/21 - 11/23/21 - Medication: Sertraline 50 mg daily -Previous medication treatment Hx: venlafaxine was self-discontinued; trazodone was prescribed by psychiatrist while she was attending [facility], but pt self-discontinued due to ineffectivenss - still on waiting list for outpatient appt with psychiatrist and therapist. - Able to contract her safety today - Continue BHS with [facility] Assessment & Plan (08/30/2022 12:43 PM EDT): - severe exacerbation of Depression w/ SI in October 2021. - completed Partial Hospitalization Program at [facility] 11/09/21 - 11/23/21 - Medication: Sertraline 50 mg daily -Previous medication treatment Hx: venlafaxine was self-discontinued; trazodone was prescribed by psychiatrist while she was attending [facility], but pt self-discontinued due to ineffectivenss - still on waiting list for outpatient appt with psychiatrist and therapist. - Able to contract her safety today - Continue BHS with [facility] Assessment & Plan (06/24/2022 11:25 AM EDT): - severe exacerbation of Depression w/ SI in October 2021. - completed Partial Hospitalization Program at [facility] 11/09/21 - 11/23/21 - Medication treatment [...] 2021. - completed Partial Hospitalization Program at [facility] 11/09/21 - 11/23/21 - Medication treatment [...] 2021. - completed Partial Hospitalization Program at [facility] 11/09/21 - 11/23/21 - Medication treatment Hx --venlafaxine was self-discontinued --trazodone was prescribed by psychiatrist while she was attending [facility], but pt self-discontinued due to ineffectivenss - still on waiting list for outpatient appt with psychiatrist and therapist. - Able to contract her safety today - Continue BHS with [facility] Assessment & Plan (02/22/2022 4:28 PM EST): - severe exacerbation of Depression w/ SI in October 2021. - completed Partial Hospitalization Program at [facility] 11/09/21 - 11/23/21 - Medication treatment [...] - previously participated weight management program at [facility], recently started seeing them again. - goal of wieght being 171 lbs to get surgery done. - continue working on lifestyle modifications - associated comorbidity: STELLA, diabetes mellitus type 2 - continue GLP1RA - patient is restricting food intake and discussed about its harmful effect. She is on GLP1RA and is having side effects. Will try to consult with both self sealing fuel tank builder and surgical weight loss provider. Surgical weight loss is not indicated and patient still may need to take medications. Assessment & Plan (01/27/2024 3:27 PM EST): - previously participated weight management program at [facility], recently started seeing them again. - goal of wieght being 171 lbs to get surgery done. - continue working on lifestyle modifications - associated comorbidity: STELLA, DM2 Assessment & Plan (11/26/2023 2:16 PM EDT): - previously participated weight management program at [facility] - continue working on lifestyle modifications - associated comorbidity: STELLA, DM2 Assessment & Plan (11/18/2022 7:07 AM EDT): - previously participated weight management program at [facility] - continue working on lifestyle modifications - associated comorbidity: STELLA, DM2 Assessment & Plan (04/04/2022 7:14 PM EST): - previously participated weight management program at [facility] - continue working on lifestyle modifications - associated comorbidity: STELLA, DM2 Assessment & Plan (02/22/2022 4:37 PM EST): - previously participated weight management program at [facility] - continue working on lifestyle [...] Date Type Department Care Team Description 05/24/2024 Refill [facility] [place] [address] Cinthya Ray MD 05/24/2024 Orders Only GENERIC EXTERNAL DATA DEPARTMENT Provider, Generic External Data 05/07/2024 Orders Only GENERIC EXTERNAL DATA DEPARTMENT Provider, Generic External Data 05/04/2024 Telephone [facility] [place] [place] [address] Cinthya Ray MD Medication Question 05/03/2024 3:30 PM EDT Office Visit [facility] [place] [address] Cinthya Ray MD Metabolic dysfunction-associat ed steatotic liver disease (MASLD) (Primary Dx); Type 2 diabetes mellitus with hypoglycemia without coma, with long-term current use of insulin ([facility]); Decreased sensation of lower extremity; Tachycardia; Hypotension, [...] DEPARTMENT Provider, Generic External Data 04/29/2024 Telephone [facility] [place] [address] Fauzia Matamoros NP 04/29/2024 Telephone [facility] [place] [place] [address] Cinthya Ray MD chart prep 04/27/2024 Refill [facility] [place] [place] [address] Cinthya aRy MD 04/26/2024 8:40 AM EDT Office Visit [facility] [address] Fauzia Matamoros, MANNY Type 2 diabetes mellitus with hypoglycemia without coma, with long-term current use of insulin (CMS/HCC) (Primary Dx); Type 2 diabetes mellitus with hyperglycemia, without long-term current use of insulin (CMS/HCC) 04/26/2024 Refill [facility] [address] [facility] [place] [address] Cinthya Ray MD 04/26/2024 Telephone [facility] [address] [place] [address] Rianna Slois, RN NTTS 04/26/2024 Telephone [facility] [address] [place] [address] Cinthya Ray MD 04/26/2024 Travel 04/26/2024 Refill [facility] [address] [facility] [place] [address] Fauzia Matamoros NP Type 2 diabetes mellitus with hyperglycemia, without long-term current use of insulin (CMS/HCC) 04/26/2024 Telephone [facility] [address] [facility] [place] [address] Cinthya Ray MD ER Follow-up; Nurse Triage 04/24/2024 Orders Only GENERIC EXTERNAL DATA DEPARTMENT Provider, Generic External Data 04/23/2024 3:30 PM EDT Telemedicine [facility] [place] [address] Mayito Acuña, Citlali Type 2 diabetes mellitus with hyperglycemia, with long-term current use of insulin (CMS/HCC) (Primary Dx) 04/23/2024 Travel 04/23/2024 Population Health Risk Score [facility] ([facility] Department [address] [place] [phone] Provider, Population Health Generic 04/22/2024 Travel 04/19/2024 Orders Only [facility] [address] [facility] [place] [address] Cinthya Ray MD Type 2 diabetes mellitus with hyperglycemia, with long-term current use of insulin (CMS/HCC) (Primary Dx) 04/15/2024 Orders Only [facility] External Provider, [facility] 04/13/2024 Telephone [facility] [address] [address] Lexis Spann MD 04/07/[address] [address] Lexis Spann MD 04/07/2024 Orders Only [address] [address] Lexis Spann MD 04/06/2024 5:00 PM EST Office Visit [facility] [address] [address] Lexis Spann MD Lower urinary tract symptoms (LUTS) (Primary Dx); Vaginal discharge 04/06/2024 Orders Only [address] [address] Lexis Spann MD 04/01/[address] [address] Rianna Solis RNindustrial health engineer 03/23/[address] [address] Cinthya Ray MD Nurse Triage 03/23/[address] [address] Cinthya Ray MD 03/12/2024 Orders Only [facility] External Provider, [facility] 03/12/2024 Refill [facility] [address] [place] [address] Cinthya Ray MD Type 2 diabetes mellitus with hyperglycemia, without long-term current use of insulin (CMS/HCC) 03/05/2024 Orders Only [address] [address] Cinthya Ray MD Type 2 diabetes mellitus with other specified complication, with long-term current use of insulin (CMS/HCC) (Primary Dx) 03/04/[address] [address] Janey Jaramillo [place] april03/02/2024 10:00 AM EST Office Visit [facility] [address] [place] [address] Sonali Tellez MD Cough in adult patient 02/26/2024 2:00 PM EST Office Visit [facility] [address] [place] [address] Sonali Tellez MD Viral upper respiratory infection (Primary Dx); Influenza from Last 3 Months Immunizations Name Administration Dates Next Due DTP 05/12/1997, 4,1992,08/16,1992 Hep A, Adult 03/14/2023,11/10/2017 Hep A, ped/adol, 2 dose 01/06/2012 Hep B, Adolescent or Pediatric 12/22/1995,1994,10/19/1993 Hib ([facility]) 05/14/1993, 3,1992,04/12 IPV 05/12/1997, 4,1992,04/12 Influenza injectable [...] 07/30/2024 3:00 PM EDT Office Visit [facility] [address] [place] [address] Demario Bocanegra Health Maintenance Due Date Last [...] coma, with long-term current use of insulin ([facility]) POCT GLUCOSE Routine 05/03/2024 3:35 PM EDT Type 2 diabetes mellitus with hypoglycemia without coma, with long-term current use of insulin ([facility]) GLUCOSE, WHOLE BLOOD Routine 04/30/2024 9:39 [...] Whole Blood 168(H) 60 - 115 mg/dL [facility] Comment:METER #: [id number] 5Testing performed in the Endocrinology Department [address] , [address], [facility]. 05/24/2024 2:51 PM EDT 05/24/2024 2:54 PM EDT us Generic External Data Provider LAB BLOOD ORDERAB LES Final Result [facility] [address] [place], [place] [phone] * (ABNORMAL) POCT glycosylated hemoglobin (Hgb A1c) (05/03/2024 3:35 PM EDT) Hemoglobin A1C 6.5(A) 4.0 - 6.0 % QC Media Lot # [id number] Lot# Expiration Date [id number] Blood Capillary blood specimen / Unknown 05/03/2024 3:35 PM EDT Cinthya Ray MD POINT OF CARE TEST ENTER/EDIT OR DERABLES Final Result * POCT glucose manually resulted (05/03/2024 3:35 PM EDT) Glucose Blood, POC 113 60 - 200 mg/dL QC Media Lot # [id number] Lot# Expiration Date Blood Capillary blood specimen / Unknown 05/03/2024 3:35 PM EDT Cinthya Ray MD POINT OF CARE TEST ENTER/EDIT OR DERABLES Final Result * Glucose, Whole Blood (04/24/2024 11:51 PM EDT) Only the most recent of2 resultswithin the time period is included. Glucose, Whole Blood 103 60 - 115 mg/dL [facility] Comment:METER #: [id number] 04/24/2024 11:5 1 PM EDT 04/24/2024 11:55 PM EDT Generic External Data Provider LAB BLOOD ORDERAB LES Final Result [facility] [address] [place] [phone] * (ABNORMAL) CBC auto differential (04/24/2024 10:57 PM EDT) White Blood Count 9.2 4.8 - 10.8 X10*3/uL [facility] Red Blood Count 4.64 4.20 - 5.50 X10*6/uL [facility] Hemoglobin 11.5(L) 12.0 - 16.0 g/dl [facility] Hematocrit 34.9(L) 37.0 - 47.0 % [facility] Mean Corpuscular Volume 75.2(L) 80.0 - 98.0 fL [facility] Mean Corpuscular Hemoglobin 24.8(L) 27.0 - 33.0 pg [facility] Mean Corpuscular HGB Conc 33.0 31.0 - 35.0 g/dl [facility] Red Cell Distribution Width 15.3 11.0 - 16.0 % [facility] Platelet Count 281 160 - 400 X10*3/uL [facility] Mean Platelet Volume 9.0(L) 9.4 - 12.3 fL [facility] Neutrophils Percent Auto 59.8 45 - 73 % [facility] Imm Gran Pct Auto 0.3 0.0 - 0.4 % [facility] Lymphocytes Percent Auto 33.3 20 - 40 % [facility] Monocytes Percent Auto 5.0 2 - 11 % [facility] Eosinophils Percent Auto 1.2 0 - 4 % [facility] Basophils Percent Auto 0.4 0 - 2 % [facility] NRBC Pct Auto 0.0 0.0 - 0.2 /100WBC [facility] Neutrophils Absolute Auto 5.5 2.0 - 8.3 x10*3/uL [facility] Imm Gran Abs Auto 0.03 0.00 - 0.03 X10*3/uL [facility] Lymphocytes Absolute Auto 3.1 1.2 - 4.9 X10*3/uL [facility] Monocytes Absolute Auto 0.5 0.1 - 1.2 X10*3/uL [facility] Eosinophils Absolute Auto 0.1 0.0 - 0.4 X10*3/uL [facility] Basophils Absolute Auto 0.0 0.0 - 0.2 X10*3/uL [facility] NRBC Abs Auto 0.000 0.0 - 0.012 X10*3/uL [facility] 04/24/2024 10:5 7 PM EDT 04/24/2024 11:01 PM EDT us Generic External Data Provider LAB BLOOD ORDERAB LES Final Result [facility] [address] [place] [address] [phone] * (ABNORMAL) Comprehensive Metabolic Panel (04/24/2024 10:57 PM EDT) Sodium 142 135 - 145 mmol/L [facility] Potassium 3.9 3.3 - 5.1 mmol/L [facility] Chloride 109(H) 96 - 108 mmol/L [facility] Carbon Dioxide 24 22 - 29 mmol/L [facility] Anion Gap 13 12 - 20 [facility] Urea Nitrogen (BUN) 17(H) 9 - 16 mg/dL [facility] Creatinine, Serum 0.71 0.5 - 1.4 mg/dL [facility] Creatinine Clr Calc Pharmacy 110.9 [facility] Comment:Provided height and weight: 157.48 cm,79.379 kg.eGFR (calculated from the MDRD study equation) and eCrCl(calculated from the Cockcroft-Gault equation) are based ondifferent parameters and may not yield comparable results.If eCrCl result is absurd, please check patient'sheight/weight. Estimated Glomerular Filt Rate >60 [facility] Comment:Chronic Kidney Disea se: Estimated GFR < 60 mL/min/[id number] Kidney Disease: Estimated GFR < 15 mL/min/1.73m2 Glucose 96 60 - 115 mg/dL [facility] Calcium 8.7 8.4 - 10.2 mg/dL [facility] Bilirubin, Total 0.3 0.0 - 1.0 mg/dL [facility] Aspartate Amino Transferase 22 5 - 31 U/L [facility] Alanine Aminotransferase 15 0 - 31 U/L [facility] Total Protein 7.5 6.5 - 8.0 g/dL [facility] Albumin Level 3.6 3.5 - 5.0 g/dL [facility] Alkaline Phosphatase 77 39 - 117 U/L [facility] 04/24/2024 10:5 7 PM EDT 04/24/2024 11:01 PM EDT us Generic External Data Provider LAB BLOOD ORDERAB LES Final Result [facility] [address] [place] [phone] * FL upper GI w air (04/15/2024 8:00 AM EST) Anatomical Region Laterality Modality Body Radiographic Viky ging 04/15/2024 8:00 AM EST Narrative 04/19/2024 1:33 PM EDT ? [facility] ?[address] ?[place] [address] ? Fluoroscopy Report ? Signed ? Patient: Sonali Gill ?MR#: ?? [id number] ? : 1990 ?Acct:[id number] ? Age/Sex: 34 / F ?ADM Date: 04/15/24 ? Loc: HO.XRAY ? Attending Dr: Nate Mijares MD ? Ordering Physician: Nate Mijares MD ?? Date of Service: 04/15/24 ?? Procedure(s): FL upper GI w air ?? Accession Number(s): [id number] ? cc: Nate Mijares MD; Cinthya Ray [...] DD/ 0800 ? TD/TT: 04/15/24 0820 ? Drying Machine Operator: ? Procedure Note Casiaudielachelle, Image - 04/19/2024 [place] [address] Fluoroscopy Report Signed Patient: Jeremy Gill#: [id number] : 1990Acct:[id number] Age/Sex: 34 / FADM Date: 04/15/24 Loc: [facility] Attending Dr: Nate Mijares MD Ordering Physician: Nate Mijares MD Date of Service: 04/15/24 Procedure(s): FL upper GI w air Accession Number(s): [id number] cc: Nate Mijares MD; Cinthya Ray MD [...] 04/19/24 1332 DD/ 0800 TD/TT: 04/15/24 0820 Drying Machine Operator: [facility] External Provider IMG FLU OROSCOPY PROCEDURES [...] (ABNORMAL) Bacterial Vaginosis (04/06/2024 5:04 PM EST) [facility] TRICHOMONAS VAGINALIS DETECTION BY PCR NOT DETECTED Not Detect [facility] BACTERIAL VAGINOSIS DETECTION BY PCR POSITIVE(A) Negative [facility] Comment:The BV organism targ ets [...] DETECTION BY PCR NOT DETECTED Not Detect [facility] Deyanira glab krusei PCR NOT DETECTED Not Detect [facility] 04/06/2024 5:04 PM EST 04/07/2024 11:23 AM EST us Lexis Spann MD LAB MICROBIOLOGY - GENER AL ORDERABLES Final Result [facility] [address] [place] [phone] * Chlamydia/N. Gonorrhoeae RNA, TMA, Urogenitial (04/06/2024 5:04 PM EST) [facility] CT PCR NOT DETECTED Not Detect. [facility] Comment:A not detected test result [...] psychologicalconsequences. NG PCR NOT DETECTED Not Detect. [facility] Comment:A not detected test result [...] 5:04 PM EST 04/07/2024 11:15 AM EST [facility]S - 04/07/2024 1:26 PM EST Vaginal Lexis Spann MD LAB MICROBIOLOGY - [facility] AL ORDERABLES Final Result [facility] [address] [place] [phone] * Culture, Urine, Routine (04/06/2024 12:00 AM EST) Urine Urine specimen obtained by clean catch procedure / Unknown 04/06/2024 04/06/2024 Comment:[facility]S - 04/10/2024 7:29 AM EST [...] AL ORDERABLES Final Result Performing Organization Address [facility]/State/ZIP Co de Phone Number [facility] [address] [place] [address] [phone] * MR Shoulder w/o Contrast Left (03/12/2024 7:15 PM EST) Anatomical Region Laterality Modality Upper Extremities, Shoulder Left Magn etic Resonance 03/12/2024 7:15 PM EST Narrative 03/15/2024 10:07 AM EST ? [facility] ?[address] ?[place] [address] ? Magnetic Resonance Report ? Signed ? Patient: Sonali Gill ?MR#: ?? [id number] ? : 1990 ?Acct:[id number] ? Age/Sex: 34 / F ?ADM Date: 03/12/24 ? Loc: HO.MRI ? Attending Dr: Al Hays MD ? Ordering Physician: Al Hays MD ?? Date of Service: 03/12/24 ?? Procedure(s): MR shoulder LT wo con ?? Accession Number(s): [id number] ? cc: Al Hays MD; Cinthya Ray [...] DD/ 1915 ? TD/TT: 03/12/24 1940 ? Drying Machine Operator: ? Procedure Note Corinter, Image - 03/15/2024 [place] [address] Magnetic Resonance Report Signed Patient: Jeremy Gill#: [id number] : 1990Acct:[id number] Age/Sex: 34 / FADM Date: 03/12/24 Loc: HO.MRI Attending Dr: Al Hays MD Ordering Physician: Al Hays MD Date of Service: 03/12/24 Procedure(s): MR shoulder LT wo con Accession Number(s): [id number] cc: Al Hays MD; Cinthya Ray MD [...] OV> 03/15/24 1004 DD/ 14 TD/TT: 03/12/241939 Drying Machine Operator: [facility] External Provider IMG MRI PROCEDURES Final Result * POCT Rapid Influenza B SEBASTIAN ID NOW (03/02/2024 10:18 AM EST) Only the most recent of2 resultswithin the time period is included. Influenza B Negative Negative, Indeterminate [facility] Swab 03/02/2024 10:1 8 AM EST Sonali Tellez MD POINT OF CARE TEST ENTER/E DIT ORDERABLES Final Result Performing Organization Address [facility] Co de Phone Number [facility] [address] [place] [phone] * POCT Rapid Influenza A SEBASTIAN ID NOW (03/02/2024 10:18 AM EST) Only the most recent of2 resultswithin the time period is included. Influenza A Negative Negative, Indeterminate [facility] Swab 03/02/2024 10:1 8 AM EST Sonali Tellez MD POINT OF CARE TEST ENTER/E DIT ORDERABLES Final Result Performing Organization Address [facility]/ZIP Co de Phone Number [facility] [address] [place] [phone] * POCT Rapid Covid-19 BinaxNOW (03/02/2024 10:18 AM EST) Only the most recent of2 resultswithin the time period is included. [facility] Rapid COVID Ag Negative Swab 03/02/2024 10:1 8 AM EST us Sonali Tellez MD POINT OF CARE TEST ENTER/E DIT ORDERABLES Final Result * POCT rapid strep A manually resulted (03/02/2024 10:18 AM EST) [facility] Rapid Strep A Screen Negative Negative, None Detected Swab 03/02/2024 10:1 8 AM EST us Sonali Tellez MD POINT OF CARE TEST ENTER/E DIT ORDERABLES Final Result * POCT Rapid Strep A SEBASTIAN ID NOW (02/26/2024 2:42 PM EST) [facility] Rapid Strep A Screen Negative Negative, None Detected Swab 02/26/2024 2:42 PM EST us Sonali Tellez MD POINT OF CARE TEST ENTER/E DIT ORDERABLES Final Result * (ABNORMAL) Lipid Panel with Reflex to Direct LDL (11/26/2023 11:30 AM EDT) [facility] Triglycerides 145 <150 mg/dL [facility] Comment:Desirable Triglyceri de: less than 150 mg/dLBorderline High Triglyceride 150-199 mg/dLHigh Triglyceride: 200-499 mg/dLVery High Triglyceride: greater than or equal to 5OO mg/dL Cholesterol 152 <200 mg/dL [facility] Comment:Desirable Cholestero l: less than 200 mg/dLBorderline High Cholesterol: 200-239 mg/dLHigh Cholesterol: greater than 239 mg/dL LDL Cholesterol Calculated 91 <100 mg/dL [facility] Comment:Desirable LDL: less than 100 mg/dLNear Optimal/Above Optimal LDL: 110- 129 mg/dLBorderline High LDL: 130-159 mg/dLHigh LDL: 160-189 mg/dLVery High LDL: greater than or equal to 190 mg/dL HDL Cholesterol 32(L) >40 mg/dL [facility] Comment:Desirable HDL: great er than 40 mg/dL Note: This HDL assay may give artificially low results in patients with liver disease. Blood 11/26/2023 11:3 0 AM EDT 11/26/2023 1:20 PM EDT Cinthya Ray MD LAB BLOOD ORDERABLES Final Resul t Performing Organization Address [facility] Co de Phone Number [facility] [address] [place] [phone] * Hepatitis C Antibody with Reflex to HCV, RNA, Quantitative, Real-Time PCR (11/26/2023 11:30 AM EDT) Hepatitis C Antibody Nonreactive Nonreactive [facility] Comment:Antibodies to HCV no t detected; does not exclude early acuteHCV infection. Blood Venous blood specimen / Unknown 11/26/2023 11:30 AM EDT 11/26/2023 1:20 PM EDT Cinthya Ray MD LAB BLOOD ORDERABLES Final Resul t Performing Organization Address [facility] Co de Phone Number [facility] [address] [place] [phone] * HIV-1/2 Antigen and Antibodies, Fourth Generation, with Reflexes (11/26/2023 11:30 AM EDT) HIV AB/AG Nonreactive Nonreactive [facility] Comment:HIV-1 p24 Ag and/or HIV-1/HIV-2 Ab not detected.A test result that is nonreactive does not exclude thepossibility of exposure to or infection with HIV-1 and/orHIV-2. Nonreactive results in this assay for individualswith prior exposure to HIV-1 and/or HIV-2 may be due toantigen and antibody levels that are below the limit ofdetection of this assay.The [employer]um (Formerly Ube) HIV Ag/Ab Combo assay result andsupplemental assay results should be interpreted inconjunction with the patient's clinical presentation,history and other laboratory results. If the results areinconsistent with clinical evidence, additional testing issuggested to confirm the result. Blood Venous blood specimen / Unknown 11/26/2023 11:30 AM EDT 11/26/2023 1:20 PM EDT Cinthya Ray MD LAB BLOOD ORDERABLES Final Resul t Performing Organization Address [facility] Co de Phone Number [facility] [address] [place] [phone] * Albumin, Random Urine W/Creatinine (11/26/2023 12:00 AM EDT) Pathologist [facility] Creatinine, Urine 238.24 mg/dL [facility] Microalbumin Urine 23.0 mg/L [facility] Microalbum Creatinine Ratio Ur 9.6 <30 ug/mg cr [facility] Comment:Albumin/Creatinine R atio Reference Ranges: Normal: < 30 ug/mg creatinine Microalbuminuria: 30 - 300 ug/mg creatinineClinical Albuminuria: > 300 ug/mg creatinine Urine 11/26/2023 11/26/2023 Cinthya Ray MD LAB URINE ORDERABLES Final Resul t Performing Organization Address [facility] Co de Phone Number [facility] [address] [place] [phone] * Diabetes Eye Exam (01/24/2023) Pathologist [facility] Eye Exam Normal Normal Comment:[facility] 01/24/2023 Historical On[facility] Final Result * THINPREP TIS PAP (07/24/2021 4:01 PM EDT) Clinical Information: None given [facility] COMMENT SEE COMMENT FOUNDATI ON [...] has been evaluated with computer assisted technology. [facility] Field Marketer : SEE COMMENT [facility] Comment: MXD, CT (ASCP) CT screening location: [address] ??[phone] Interpretation/R esult: Negative for intraepithelial lesion or malignancy. [facility] LMP: NONE GIVEN FOUNDATIO N LAB SYSTEM Prev. BX: NONE GIVEN FOUNDATIO N LAB SYSTEM Prev. PAP: NONE GIVEN FOUNDATI ON LAB SYSTEM SOURCE: None given FOUNDATIO N [facility] SYSTEM Statement Of Adequacy: SEE COMMENT [facility] Comment: Satisfactory for evaluation. Endocervical/transformation zone component present. Age and/or menstrual status not provided 07/24/2021 4:01 PM EDT Cinthya Ray MD LAB PATHOLOGY ORDERABLES Final R esult [facility] [address] from Last 3 Months or Most Recently Relevant to Health Maintenance Insurance [employer] C[employer] * Guarantor: Sonali Gill Account Type Relation to Patient Date of Phone Billing Address Personal/Family Self [address] [facility] [address] [place] Care Teams Environmental Research Project Manager Relationship Specialty Start Date End Date Cinthya Ray MD [address] [place] [phone] PCP - General Family Medicine 10/23/11
--- OUTSIDE RECORDS SUMMARY | 2024-05-26 17:09 | XMS_ITS | Encounter Summary ---
Author Organization [employer] [facility] Address [address] [place] [address] 7 [place] [address] Care Team Providers Care District Court Judge Name Role Phone Cinthya Ray MD Primary Care Provider Mayito Acuña PharmD Unavailable [phone] Reason for Visit * Reason Onset Date Comments triage 04/10/2022 Encounter Details Date Type Department Care Team (Late st Contact Info) Description 04/10/2022 Telephone [facility] [address] [place], [place] [phone] Cinthya Ray MD [address] [place], [place] [phone] triage Social History Tobacco Use Types Packs/Day [...] [facility] ADULT D[facility] [address] [place] [address] Demario Bocanegra documented as of this encounter Visit Diagnoses Not on filedocumented in this encounter Care Teams District Court Judge Relationship Specialty Start Date End Date Cinthya Ray MD [address] [place] [phone] PCP - General Family Medicine 10/23/11 Mayito Acuña, PharmD [address] [place] [phone] Pharmacist Internal Medicine 03/07/23 04/22/24 documented as of this encounter
--- OUTSIDE RECORDS SUMMARY | 2024-05-26 17:09 | XMS_ITS | Encounter Summary ---
Author Organization [employer] Address [address] [facility] 7 [place] [address] Care Team Providers Care Suit Maker Name Role Phone Cinthya Ray MD Primary Care Provider [phone] Mayito Acuña PharmD Unavailable [phone] Encounter Details Date Type Department Care Team (Late st Contact Info) Description 03/05/2024 Orders Only [facility] [address] [place], [place] [phone] Cinthya Ray MD 230 [place], [place] [phone] Type 2 diabetes mellitus with other specified complication, with long-term current use of insulin ([facility]) (Primary Dx) Social History Tobacco Use Types [...] EDT Office Visit [facility] [address] [place] [address] Demario Bocanegra documented as of this encounter [...] complication, with long-term current use of insulin ([facility])- Primary documented in this encounter Additional Health Concerns Assessment Noted Time PHQ-9 Depression Total Score: 11 024 9:48 AM EDT documented as of this encounter Care Teams Suit Maker Relationship Specialty Start Date End Date Cinthya Ray MD [address] [place] [address] PCP - General Family Medicine 10/23/11 Mayito Acuña, DyanD [address] [place] [address] Pharmacist Internal Medicine 03/07/23 04/22/24 documented as of this encounter
--- OUTSIDE RECORDS SUMMARY | 2024-05-26 17:09 | XMS_ITS | Encounter Summary ---
Author Organization [employer] [facility] Address [address] [place] [address] 7 [place] [address] Care Team Providers Care Admitting Representative Name Role Phone Cinthya Ray MD Primary Care Provider [phone] Mayito Acuña PharmD Unavailable [phone] Reason for Visit * Reason Onset Date Comments Med Refill 08/06/2023 Encounter Details Date Type Department Care Team (Late st Contact Info) Description 08/06/2023 Refill [facility] 230 [place], [place] [phone] Cinthya Ray MD 230 [place], [place] [phone] Social History Tobacco Use Types Packs/Day Years [...] Description 07/30/2024 3:00 PM EDT Office Visit [facility] ADULT D[facility]AL [address] [place] [address] Demario Bocanegra documented as of this encounter [...] documented as of this encounter Care Teams Admitting Representative Relationship Specialty Start Date End Date Cinthya Ray MD [address] [place] [phone] PCP - General Family Medicine 10/23/11 Mayito Acuña PharmD [address] [place] [phone] Pharmacist Internal Medicine 03/07/23 04/22/24 documented as of this encounter
--- OUTSIDE RECORDS SUMMARY | 2024-05-26 17:09 | XMS_ITS | Encounter Summary ---
Author Organization [employer] Address [address] [place] [address] 7 [place] [address] Care Team Providers Care Extractor Machine Operator Name Role Phone Cinthya Ray MD Primary Care Provider [phone] Mayito Acuña PharmD Unavailable [phone] Reason for Visit * Reason Onset Date Comments Med Refill 12/24/2023 Encounter Details Date Type Department Care Team (Late st Contact Info) Description 12/24/2023 Refill [facility] MED & PEDS [address] [place], [place] [phone] Cinthya Ray MD 230 [place] [address] Type 2 diabetes mellitus with hyperglycemia, without long-term current use of insulin ([facility]) Social History Tobacco [...] PM EDT Office Visit [facility] ADULT D[facility] [address] [place] [address] Demario Bocanegra documented as of this encounter [...] hyperglycemia, without long-term current use of insulin ([facility]) documented in this encounter Additional Health Concerns Assessment Noted Time PHQ-9 Depression Total Score: 11 024 9:48 AM EDT documented as of this encounter Care Teams Extractor Machine Operator Relationship Specialty Start Date End Date Cinthya Ray MD [address] [place] [address] PCP - General Family Medicine 10/23/11 Mayito Acuña, PharmD [address] [place] [address] Pharmacist Internal Medicine 03/07/23 04/22/24 documented as of this encounter
--- OUTSIDE RECORDS SUMMARY | 2024-05-26 17:09 | XMS_ITS | Encounter Summary ---
Author Organization [employer] [facility] Address [address] [facility] 7t [place] [address] Care Team Providers Care Oyster Culturist Name Role Phone Cinthya Ray MD Primary Care Provider [phone] Mayito Acuña PharmD Unavailable [phone] Encounter Details Date Type Department Care Team ([facility] Contact Info) Description 06/13/2022 Orders Only [facility] [address] [place], [place] [phone] Jerrica Girard FNP Social History Tobacco Use [...] Upcoming Encounters Date Type Department Care Team ([facility] Contact Info) Description 07/30/2024 3:00 PM EDT Office Visit [facility] [address] [place], [place] [phone] Demario Bocanegra documented as of this encounter Visit Diagnoses Not on filedocumented in this encounter Care Teams Oyster Culturist Relationship Specialty Start Date End Date Cinthya Ray MD [address] [place] [address] PCP - General Family Medicine 10/23/11 Mayito Acuña, Citlali [address] [place] [address] Pharmacist Internal Medicine 03/07/23 04/22/24 documented as of this encounter
--- OUTSIDE RECORDS SUMMARY | 2024-05-26 17:09 | XMS_ITS | Encounter Summary ---
Author Organization [employer] Address [address] [facility] 7 [place] [address] Care Team Providers Care Web Operations Lead Name Role Phone Cinthya Ray MD Primary Care Provider [phone] Mayito Acuña PharmD Unavailable [phone] Encounter Details Date Type Department Care Team ([facility] st Contact Info) Description 09/15/2023 Orders Only [facility] [address] [place], [place] [phone] Cinthya Ray MD 230 [place], [place] [phone] Type 2 diabetes mellitus with hyperglycemia, without long-term current use of insulin ([facility]) Social History Tobacco Use Types Packs/Day [...] [facility] ADULT D[facility] [address] [place] [address] Demario Bocanegra documented as of this encounter [...] without long-term current use of insulin ([facility]) documented in this encounter Additional Health Concerns Assessment Noted Time PHQ-9 Depression Total Score: 0 09/10/19 9:01 AM EDT documented as of this encounter Care Teams Web Operations Lead Relationship Specialty Start Date End Date Cinthya Ray MD [address] [place] [address] PCP - General Family Medicine 10/23/11 Mayito Acuña PharmD [address] [place] [phone] Pharmacist Internal Medicine 03/07/23 04/22/24 documented as of this encounter
--- OUTSIDE RECORDS SUMMARY | 2024-05-26 17:09 | XMS_ITS | Encounter Summary ---
Author Organization [id number] [facility] Address [address] [place] [address] 7 [place] [address] Care Team Providers Care Adolescent Psychiatrist Name Role Phone Cinthya Ray MD Primary Care Provider [phone] Mayito Acuña PharmD Unavailable [phone] Reason for Visit * Reason Onset Date Comments Results 12/09/2022 Encounter Details Date Type Department Care Team ([facility] st Contact Info) Description 12/09/2022 Telephone [facility] MEDICINE [address] [place], [place] [phone] Cinthya Ray MD [address] [place] [address] Results Social History Tobacco Use Types Packs/Day [...] to US results. Please contact pt at [phone] documented in this encounter Plan of Treatment Upcoming Encounters Date Type Department Care Team (Late st Contact Info) Description 07/30/2024 3:00 PM EDT Office Visit [facility] ADULT D[facility]AL [address] [place] [address] Demario Bocanegra documented as of this encounter Visit Diagnoses Not on filedocumented in this encounter Care Teams Adolescent Psychiatrist Relationship Specialty Start Date End Date Cinthya Ray MD [address] [place] [address] PCP - General Family Medicine 10/23/11 Mayito Acuña, DyanD [address] [place] [address] Pharmacist Internal Medicine 03/07/23 04/22/24 documented as of this encounter
--- OUTSIDE RECORDS SUMMARY | 2024-05-26 17:09 | XMS_ITS | Encounter Summary ---
Author Organization [employer] Address [address] [facility] 7 [place] [address] Care Team Providers Care Commercial Housekeeper Name Role Phone Cinthya Ray MD Primary Care Provider [phone] Mayito Acuña PharmD Unavailable [phone] Encounter Details Date Type Department Care Team ([facility] st Contact Info) Description 06/30/2023 Orders Only [facility] MEDICINE 230 [place], [place] [phone] Mayito Acuña, PharmD 230 [place], [place] [phone] Type 2 diabetes mellitus with hyperglycemia, with long-term current use of insulin ([facility]) (Primary [...] 3:00 PM EDT Office Visit [facility] ADULT DENT[facility] [address] [place] [address] Demario Bocanegra documented as of this encounter [...] hyperglycemia, with long-term current use of insulin ([facility]) documented in this encounter Results * Hematoxylin and Eosin Stain (06/30/2023 12:47 PM EDT) 06/30/2023 12:4 7 PM EDT 06/30/2023 1:27 PM EDT [facility] - 07/02/2023 9:30 AM EDT ----- ------- Name: Sonali Gill ?Age/Sex: 33/F ? : 1990 Unit#: [id number] ?? Attend Dr: Jose Figueroa MD ?Re06/30/23 ?Status: DEP SDC ? Location: HO.SSS ?Disch: ? ----- ------- SPEC : [id number] ? RECD: 06/30/23-1326 ? STATUS: ??SOUT ? REQ NUM: [id number] ? MELANIA: 06/30/23-1246 ? SUBM DR: Jose [...] Gill ?Age/Sex: 33/F ? : 1990 Unit#: [id number] ?? Attend Dr: Jose Figueroa MD ?Re06/30/23 ?Status: DEP SDC ? Location: HO.SSS ?Disch: ? ----- ------- SPEC : [id number] ? RECD: 06/30/23-1326 ? STATUS: ??SOUT ? REQ NUM: [id number] ? MELANIA: 06/30/23-1247 ? SUBM DR: Jose [...] To: ?? Jose Figueroa MD ?? [address] [facility] ?? [place] [address] ?? [phone] ?? Cinthya Ray MD ?? [address] [facility] ?? [place] [address] ?? ----- ------- Signed (signature on file) Esa Aguiar MD 07/02/23 9834 ? ----- ------- ? END OF REPORT ? us Generic External Data Provider LAB BLOOD ORDERAB LES Final Result [facility] [address] [place] [address] [phone] documented in this encounter Visit Diagnoses Diagnosis Type 2 diabetes mellitus with hyperglycemia, with long-term current use of insulin ([facility])- Primary documented in this encounter Additional Health Concerns Assessment Noted Time PHQ-9 Depression Total Score: 0 06/10/19 24 2:55 PM EDT documented as of this encounter Care Teams Commercial Housekeeper Relationship Specialty Start Date End Date Cinthya Ray MD 230 [place] [address] PCP - General Family Medicine 10/23/11 Mayito Acuña, DyanD [address] [place] [address] Pharmacist Internal Medicine 03/07/23 04/22/24 documented as of this encounter
--- OUTSIDE RECORDS SUMMARY | 2024-05-26 17:09 | XMS_ITS | Encounter Summary ---
Author Organization [employer] [facility] Address [address] [place] [address] [facility] [place] [address] Care Team Providers Care Marbleizing Machine Tender Name Role Phone Cinthya Ray MD Primary Care Provider [phone] Mayito Acuña PharmD Unavailable [phone] Reason for Referral * Consultation (Routine) - Closed Specialty Diagnoses / Procedures Referred By Contcarly t Referred To Contact Orthopaedic Surgery Diagnoses Chronic left shoulder pain Cinthya Ray MD [address] [place] [address] Phone: tel: fax: [facility] [address] [place] [address] Phone: tel: Referral ID Status Reason Start Date Expiration Date V isits Requested Visits Authorized [id number] Closed Specialty Services Required 02/05/2024 02/04/2025 6 6 Encounter Details Date Type Department Care Team (Late st Contact Info) Description 02/05/2024 Orders Only [facility] [address] [place] [phone] Cinthya Ray MD [address] [place], [place] [phone] Chronic left shoulder pain (Primary Dx) Social [...] [facility] ADULT D[facility] [address] [place] [address] Demario Bocanegra Scheduled Referrals Name Type Priority [...] documented as of this encounter Care Teams Marbleizing Machine Tender Relationship Specialty Start Date End Date Cinthya Ray MD [address] [place] [address] PCP - General Family Medicine 10/23/11 Mayito Acuña, Citlali [address] [place] [address] Pharmacist Internal Medicine 03/07/23 04/22/24 documented as of this encounter
--- OUTSIDE RECORDS SUMMARY | 2024-05-26 17:10 | XMS_ITS | Clinical Summary ---
Author Organization [facility] Address [address] [place] [address] Phone Care Team Providers Care Rn Spine Name Role Phone Unavailable Primary Care Provider Unavailabl e Allergies No known active allergies Encounters Date Type Department Care Team Description 02/29/2024 2:07 AM EST - 02/29/2024 3:08 AM EST Emergency [facility] Emergency [address] [place] [address] Viral syndrome (Primary Dx) Discharge Disposition: Home or Self Care from Last 3 Months Medical History Medical History Date Comments Diabetes mellitus ([facility] V24, [facility] V28) Social History Tobacco Use Types Packs/Day [...] molecular study (02/29/2024 1:27 AM EST) Pathologist [facility] Adenovirus Detection by PCR Not Detected Not Detected LAB MICROBIOLOGY METHOD 02/29/2024 3:00 AM [facility] Influenza A PCR Not Detected Not Detected LAB MICROBIOLOGY METHOD 02/29/2024 3:00 AM [facility] Influenza B PCR Not Detected Not Detected LAB MICROBIOLOGY METHOD 02/29/2024 3:00 AM EST [facility] Coronavirus 229E Not Detected [...] LAB MICROBIOLOGY METHOD 02/29/2024 3:00 AM EST [facility] Bordetella pertussis Not Detected Not Detected LAB MICROBIOLOGY METHOD 02/29/2024 3:00 AM [facility] Bordetella parapertussis Not Detected Not Detected LAB MICROBIOLOGY METHOD 02/29/2024 3:00 AM [facility] Mycoplasma pneumo by PCR Not Detected Not Detected LAB MICROBIOLOGY METHOD 02/29/2024 3:00 AM [facility] Chlamydia pneumoniae Not Detected Not Detected LAB MICROBIOLOGY METHOD 02/29/2024 3:00 AM [facility] SARS COV-2 Not Detected Not Detected LAB MICROBIOLOGY METHOD 02/29/2024 3:00 AM [facility] Swab Both anterior nares / Unknown Non-blood Collection / Unknown 02/29/2024 1:27 AM EST 02/29/2024 1:46 AM EST [facility] - 02/29/2024 3:00 AM EST Testing was performed using the [employer] Respiratory Pathogen PCR Assay. All results must [...] that are below the limit of detection. [facility] Leeanna Valero MD LAB MICROBIOLOGY - [facility] Final Result [facility] [address] [place] [address], from Last 3 Months Insurance [id number]
--- OUTSIDE RECORDS SUMMARY | 2024-05-26 17:10 | XMS_ITS | Encounter Summary ---
Author Organization [employer] Address [address] [place] [address] 7 [place] [address] Care Team Providers Care Cable Dispatcher Name Role Phone Cinthya Ray MD Primary Care Provider [phone] Mayito Acuña PharmD Unavailable [phone] Reason for Visit * Reason Onset Date Comments Med Refill 09/29/2023 Encounter Details Date Type Department Care Team (Late st Contact Info) Description 09/29/2023 Refill [facility] [address] [place], [place] [phone] Cinthya Ray MD [address] [place], [place] [phone] Type 2 diabetes mellitus with hyperglycemia, without long-term current use of insulin ([facility]) Social History Tobacco Use Types Packs/Day Years [...] Description 07/30/2024 3:00 PM EDT Office Visit [facility] ADULT DENT[facility] [address] [place] [address] Demario Bocanegra documented as of this encounter [...] long-term current use of insulin ([facility]) documented in this encounter Additional Health Concerns Assessment Noted Time PHQ-9 Depression Total Score: 11 024 9:48 AM EDT documented as of this encounter Care Teams Cable Dispatcher Relationship Specialty Start Date End Date Cinthya Ray MD [address] [place] [address] PCP - General Family Medicine 10/23/11 Mayito Acuña PharmD [address] [place] [address] Pharmacist Internal Medicine 03/07/23 04/22/24 documented as of this encounter
--- OUTSIDE RECORDS SUMMARY | 2024-05-26 17:10 | XMS_ITS | Encounter Summary ---
Author Organization [employer] Address [address] [place] [address] 7 [place] [address] Care Team Providers Care Celery Stripper Name Role Phone Cinthya Ray MD Primary Care Provider [phone] Mayito Acuña PharmD Unavailable [phone] Reason for Visit * Reason Onset Date Comments Med Refill 09/29/2023 Encounter Details Date Type Department Care Team (Late st Contact Info) Description 09/29/2023 Refill [facility]S [address] [place], [place] [phone] Cinthya Ray MD [address] [place] [address] Type 2 diabetes mellitus with hyperglycemia, without long-term current use of insulin ([facility]) Social [...] [facility] [address] [place] [address] Demario Bocanegra documented as of this encounter [...] hyperglycemia, without long-term current use of insulin ([facility]) documented in this encounter Additional Health Concerns Assessment Noted Time PHQ-9 Depression Total Score: 11 024 9:48 AM EDT documented as of this encounter Care Teams Celery Stripper Relationship Specialty Start Date End Date Cinthya Ray MD [address] [place] [address] PCP - General Family Medicine 10/23/11 Mayito Acuña PharmD [address] [place] [address] Pharmacist Internal Medicine 03/07/23 04/22/24 documented as of this encounter
--- OUTSIDE RECORDS SUMMARY | 2024-05-26 17:10 | XMS_ITS | Encounter Summary ---
Author Organization [employer] Address [address] [place] [address] 7 [place] [address] Care Team Providers Care Pinsetter Mechanic Automatic Name Role Phone Cinthya Ray MD Primary Care Provider [phone] Mayito Acuña PharmD Unavailable Reason for Visit * Reason Onset Date Comments Appointment Request 09/02/2022 Encounter Details Date Type Department Care Team ([facility] st Contact Info) Description 09/02/2022 Telephone C [facility] PEDS [address] [place], [place] [phone] Cinthya Ray MD [address] [place] [address] Appointment Request Social History Tobacco Use Types [...] her kidney failure.' Please contact pt at [phone] documented in this encounter Plan of Treatment Upcoming Encounters Date Type Department Care Team (Late st Contact Info) Description 07/30/2024 3:00 PM EDT Office Visit [facility] ADULT D[facility] [address] [place] [address] Demario Bocanegra documented as of this encounter Visit Diagnoses Not on filedocumented in this encounter Care Teams Pinsetter Mechanic Automatic Relationship Specialty Start Date End Date Cinthya Ray MD [address] [place] [address] PCP - General Family Medicine 10/23/11 Mayito Acuña, Citlali [address] [place] [address] Pharmacist Internal Medicine 03/07/23 04/22/24 documented as of this encounter
--- OUTSIDE RECORDS SUMMARY | 2024-05-26 17:10 | XMS_ITS | Encounter Summary ---
Author Organization [employer] [facility] Address [address] [place] [address] 7 [place] [address] Care Team Providers Care Freight Flagman Name Role Phone Cinthya Ray MD Primary Care Provider [phone] Mayito Acuña PharmD Unavailable [phone] Reason for Visit * Reason Onset Date Comments Med Refill 11/02/2023 Encounter Details Date Type Department Care Team (Late st Contact Info) Description 11/02/2023 Refill [facility] MED[facility] [address] [place], [place] [phone] Cinthya Ray MD [address] [place], [place] [phone] Social History Tobacco Use Types Packs/Day Years [...] but unableto make. Pt will come to [facility] today open till 8pm. Pt reports drinking [...] Gill Sent: 11/10/2023 5:32 PM EDT To: [facility] Front Office Subject: Appointment Request Appointment Request From: Sonali Rosa With Provider: Cinthya Ray MD [[facility]] Preferred Date Range: 11/11/2023 [...] Description 07/30/2024 3:00 PM EDT Office Visit [facility] ADULT DENTAL [address] [place] [address] Demario Bocanegra documented as of this encounter [...] documented as of this encounter Care Teams Freight Flagman Relationship Specialty Start Date End Date Cinthya Ray MD [address] [place] [address] PCP - General Family Medicine 10/23/11 Mayito Acuña PharmD [address] [place] [address] Pharmacist Internal Medicine 03/07/23 04/22/24 documented as of this encounter
--- OUTSIDE RECORDS SUMMARY | 2024-05-26 17:10 | XMS_ITS | Encounter Summary ---
Author Organization [employer] Address [address] [place] [address] 7 [place] [address] Care Team Providers Care Data Modeling Architect Name Role Phone Cinthya Ray MD Primary Care Provider [phone] Mayito Acuña PharmD Unavailable [phone] Reason for Visit * Reason Onset Date Comments Med Refill 11/02/2023 Encounter Details Date Type Department Care Team (Late st Contact Info) Description 11/02/2023 Refill [facility] MED & PEDS [address] [place], [place] [phone] Cinthya Ray MD [address] [place] [address] Type 2 diabetes mellitus with hyperglycemia, without long-term current use of insulin ([facility]) Social History Tobacco Use Types [...] [facility] ADULT D[facility] [address] [place] [address] Demario Bocanegra documented as of this encounter [...] hyperglycemia, without long-term current use of insulin ([facility]) documented in this encounter Additional Health Concerns Assessment Noted Time PHQ-9 Depression Total Score: 11 024 9:48 AM EDT documented as of this encounter Care Teams Data Modeling Architect Relationship Specialty Start Date End Date Cinthya Ray MD [address] [place] [address] PCP - General Family Medicine 10/23/11 Mayito Acuña PharmD [address] [place] [address] Pharmacist Internal Medicine 03/07/23 04/22/24 documented as of this encounter
--- OUTSIDE RECORDS SUMMARY | 2024-05-26 17:10 | XMS_ITS | Encounter Summary ---
Author Organization [facility] Address [address] [place] [address] 7 [place] [address] Care Team Providers Care Care Administrative Tech Name Role Phone Cinthya Ray MD Primary Care Provider [phone] Mayito Acuña PharmD Unavailable [phone] Reason for Visit * Reason Comments Med Refill Encounter Details Date Type Department Care Team (Late st Contact Info) Description 08/31/2022 Refill [facility] [address] [place] [address] Starla Nuñez MD [address] [place] [address] Injury of head, initial encounter Social History [...] Description 07/30/2024 3:00 PM EDT Office Visit [facility] ADULT DENTAL [address] [place] [address] Demario Bocanegra documented as of this encounter Visit Diagnoses Diagnosis Injury of head, initial encounter documented in this encounter Care Teams Care Administrative Tech Relationship Specialty Start Date End Date Cinthya Ray MD [address] [place] [address] PCP - General Family Medicine 10/23/11 Mayito Acuña, Citlali [address] [place] [address] Pharmacist Internal Medicine 03/07/23 04/22/24 documented as of this encounter
== END 2024-05-26 14:42 | disposition home or self-care (01) ==
LOC: HO.HOS 14:22
PROVIDERS: PCP Family Medicine; Visit Provider Orthopaedic Surgery
DX: M75.42 Impingement syndrome of left shoulder (principal)
CPT/HCPCS: 99214

== ENCOUNTER → 2024-05-26 14:22 | Outpatient (BNVA) | payer MEDICAID, SELFPAY | PROVIDERS: PCP Family Medicine; Visit Provider Orthopaedic Surgery | DX: M75.42 Impingement syndrome of left shoulder (principal) | CPT/HCPCS: 99212 ==

== ENCOUNTER 2024-06-04 09:29 | Day surgery (SDC) | payer MEDICAID, SELFPAY ==
--- OUTSIDE RECORDS SUMMARY | 2024-04-16 13:46 | XMS_ITS | Encounter Summary ---
Author Organization [employer] [facility] Address [address] [place] [address] 7 [place] [address] Care Team Providers Care Agricultural Economist Name Role Phone Cinthya Ray MD Primary Care Provider [phone] Mayito Acuña PharmD Unavailable [phone] Encounter Details Date Type Department Care Team (Late Contact Info) Description 02/26/2022 Abstract [facility] MEDICINE [address] [place] [address] [phone] Cinthya Ray MD [address] [place] [address] Social History Tobacco Use Types Packs/Day Years [...] 04/23/2024 3:30 PM EDT Telemedicine [facility] MEDICINE [address] [place] [address] [phone] Mayito Acuña, PharmD [address] [place], [place] [phone] 07/30/2024 3:00 PM EDT Office Visit [facility] ADULT DENTAL [address] [place] [address] Demario Bocanegra documented as of this encounter Visit Diagnoses Not on filedocumented in this encounter Care Teams Agricultural Economist Relationship Specialty Start Date End Date Cinthya Ray MD [address] [place] [address] PCP - General Family Medicine 10/23/11 Mayito Acuña, DyanD [address] [place] [address] Pharmacist Internal Medicine 03/07/23 documented as of this encounter
--- OUTSIDE RECORDS SUMMARY | 2024-04-16 13:46 | XMS_ITS | Encounter Summary ---
Author Organization [employer] Address [address] [place] [address] 7 [place] [address] Care Team Providers Care Application Development Liaison Name Role Phone Cinthya Ray MD Primary Care Provider [phone] Mayito Acuña PharmD Unavailable [phone] Reason for Visit * Reason Onset Date Comments callback request 12/30/2023 Encounter Details Date Type Department Care Team ([facility] st Contact Info) Description 12/30/2023 Telephone [facility] MEDICINE [address] [place], [place] [phone] Cinthya Ray MD [address] [place] [address] callback request Social History Tobacco Use Types [...] the past 12 months, has t he [employer], gas, oil or water [email or web address] threatened to shut off services in your [...] EST Tc from pt returning call from [facility] to book an appointment for follow up Callback [phone] documented in this encounter Plan of Treatment Upcoming Encounters Date Type Department Care Team (Late st Contact Info) Description 04/23/2024 3:30 PM EDT Telemedicine [facility] MEDICINE [address] [place] [address] Mayito Acuña PharmD [address] [place] [address] 07/30/2024 3:00 PM EDT Office Visit [facility] CHC ADULT DENTAL [address] [place] [address] Demario Bocanegra documented as of this encounter [...] documented as of this encounter Care Teams Application Development Liaison Relationship Specialty Start Date End Date Cinthya Ray MD [address] [place] [address] PCP - General Family Medicine 10/23/11 Mayito Acuña PharmD [address] [place] [address] Pharmacist Internal Medicine 03/07/23 documented as of this encounter
--- OUTSIDE RECORDS SUMMARY | 2024-04-16 13:47 | XMS_ITS | Encounter Summary ---
Author Organization [employer] [facility] Address [address] [place] [address] 7 [place] [address] Care Team Providers Care Property Controller Name Role Phone Cinthya Ray MD Primary Care Provider [phone] Mayito Acuña PharmD Unavailable [phone] Reason for Visit * Reason Onset Date Comments triage 04/10/2022 Encounter Details Date Type Department Care Team (Late st Contact Info) Description 04/10/2022 Telephone [facility] MEDICINE [address] [place], [place] [phone] Cinthya Ray MD [address] [place], [place] [phone] triage Social History Tobacco Use Types Packs/Day [...] Info) Description 04/23/2024 3:30 PM EDT Telemedicine [facility] MEDICINE [address] [place] [address] Mayito Acuña, PharmD [address] [place] [address] 07/30/2024 3:00 PM EDT Office Visit [facility] CHC ADULT DENTAL [address] [place] [address] Demario Bocanegra documented as of this encounter Visit Diagnoses Not on filedocumented in this encounter Care Teams Property Controller Relationship Specialty Start Date End Date Cinthya Ray MD [address] [place] [address] PCP - General Family Medicine 10/23/11 Mayito Acuña, Citlali [address] [place] [address] Pharmacist Internal Medicine 03/07/23 documented as of this encounter
--- OUTSIDE RECORDS SUMMARY | 2024-04-16 13:47 | XMS_ITS | Encounter Summary ---
Author Organization [employer] [facility] Address [address] [place] [address] 7 [place] [address] Care Team Providers Care Termite Inspector Name Role Phone Cinthya Ray MD Primary Care Provider Mayito Acuña PharmD Unavailable [phone] Encounter Details Date Type Department Care Team (Late Contact Info) Description 06/13/2022 Orders Only [facility] [address] [place] [phone] Jerrica Girard FNP Social History Tobacco [...] Info) Description 04/23/2024 3:30 PM EDT Telemedicine [facility] MEDICINE [address] [place] [address] Mayito Acuña, PharmD [address] [place] [address] 07/30/2024 3:00 PM EDT Office Visit [facility] ADULT DENTAL [address] [place] [address] Demario Bocanegra documented as of this encounter Visit Diagnoses Not on filedocumented in this encounter Care Teams Termite Inspector Relationship Specialty Start Date End Date Cinthya Ray MD [address] [place] [address] PCP - General Family Medicine 10/23/11 Mayito Acuña, PharmD [address] [place] [address] Pharmacist Internal Medicine 03/07/23 documented as of this encounter
--- OUTSIDE RECORDS SUMMARY | 2024-04-16 13:47 | XMS_ITS | Encounter Summary ---
Author Organization [employer] Address [address] [place] [address] 7 [place] [address] Care Team Providers Care Boot Repairer Name Role Phone Cinthya Ray MD Primary Care Provider [phone] Mayito Acuña PharmD Unavailable [phone] Reason for Visit * Reason Onset Date Comments Med Refill 12/24/2023 Encounter Details Date Type Department Care Team (Late st Contact Info) Description 12/24/2023 Refill [facility] [address] [place], [place] [phone] Cinthya Ray MD [address] [place] [address] Type 2 diabetes mellitus with hyperglycemia, without long-term current use of insulin ([facility]) Social History Tobacco Use Types Packs/Day [...] Description 04/23/2024 3:30 PM EDT Telemedicine [facility] [address] [place] [address] Mayito Acuña PharmD [address] [place] [address] 07/30/2024 3:00 PM EDT Office Visit [facility] [address] [place] [address] Demario Bocanegra documented as of this encounter [...] without long-term current use of insulin ([facility]) documented in this encounter Additional Health Concerns Assessment Noted Time PHQ-9 Depression Total Score: 11 024 9:48 AM EDT documented as of this encounter Care Teams Boot Repairer Relationship Specialty Start Date End Date Cinthya Ray MD [address] [place] [address] PCP - General Family Medicine 10/23/11 Mayito Acuña, DyanD [address] [place] [address] Pharmacist Internal Medicine 03/07/23 documented as of this encounter
--- OUTSIDE RECORDS SUMMARY | 2024-04-16 13:47 | XMS_ITS | Encounter Summary ---
Author Organization [employer] Address [address] [place] [address] 7 [place] [address] Care Team Providers Care Retail Attendant Name Role Phone Cinthya Ray MD Primary Care Provider [phone] Mayito Acuña PharmD Unavailable [phone] Reason for Visit * Reason Onset Date Comments Med Refill 09/29/2023 Encounter Details Date Type Department Care Team (Late st Contact Info) Description 09/29/2023 Refill [facility] [address] [place], [place] [phone] Cinthya Ray MD [address] [place] [address] Type 2 diabetes mellitus with hyperglycemia, without long-term current use of insulin ([facility]) Social History [...] EDT Telemedicine [facility] MEDICINE [address] [place] [address] Mayito Acuña, DyanD [address] [place] [address] 07/30/2024 3:00 PM EDT Office Visit [facility] ADULT DENTAL [address] [place] [address] Demario Bocanegra documented as of this encounter [...] hyperglycemia, without long-term current use of insulin ([facility]) documented in this encounter Additional Health Concerns Assessment Noted Time PHQ-9 Depression Total Score: 11 024 9:48 AM EDT documented as of this encounter Care Teams Retail Attendant Relationship Specialty Start Date End Date Cinthya Ray MD [address] [place] [address] PCP - General Family Medicine 10/23/11 Mayito Acuña, Citlali [address] [place] [address] Pharmacist Internal Medicine 03/07/23 documented as of this encounter
--- OUTSIDE RECORDS SUMMARY | 2024-04-16 13:47 | XMS_ITS | Encounter Summary ---
Author Organization [employer] Address [address] [place] [address] 7 [place] [address] Care Team Providers Care Project Mgr Name Role Phone Cinthya Ray MD Primary Care Provider [phone] Mayito Acuña PharmD Unavailable Reason for Visit * Reason Onset Date Comments Prior Authorization 04/01/2024 Encounter Details Date Type Department Care Team (Late st Contact Info) Description 04/01/2024 Telephone [facility] MEDICINE [address] [place], [place] [phone] Rianna Solis RN [address] [place] [address] Prior Authorization Social History Tobacco Use Types [...] PM EST [facility] * Telephone Encounter - Rianna Solis RN - 04/01/2024 2:27 PM EST Received request from Audrey MILTON from pharmacy. PA packet generated and placed on PCP's desk. Pending signature. documented in this encounter Plan of Treatment Upcoming Encounters Date Type Department Care Team (Late st Contact Info) Description 04/23/2024 3:30 PM EDT Telemedicine [facility] MEDICINE [address] [place] [address] Mayito Acuña, PharmD [address] [place] [address] 07/30/2024 3:00 PM EDT Office Visit [facility] ADULT DENTAL [address] [place] [address] Demario Bocanegra documented as of this encounter [...] documented as of this encounter Care Teams Project Mgr Relationship Specialty Start Date End Date Citnhya Ray MD [address] [place] [address] PCP - General Family Medicine 10/23/11 Mayito Acuña PharmD [address] [place] [address] Pharmacist Internal Medicine 03/07/23 documented as of this encounter
--- OUTSIDE RECORDS SUMMARY | 2024-04-16 13:47 | XMS_ITS | Encounter Summary ---
Author Organization [email or web address] [facility] Address [address] [place] [address] [facility] [place] [address] Care Team Providers Care Lodge Sales Associate Name Role Phone Cinthya Ray MD Primary Care Provider [phone] Mayito Acuña PharmD Unavailable [phone] Reason for Visit * Reason Onset Date Comments Medication Question 06/14/2022 Encounter Details Date Type Department Care Team ([facility] st Contact Info) Description 06/14/2022 Telephone [facility] MEDICINE [address] [place], [place] [phone] Cinthya Ray MD [address] [place], [place] [phone] Medication Question Social History Tobacco Use Types [...] Telemedicine [facility] MEDICINE [address] [place] [address] Mayito Acuña, PharmD [address] [place] [address] 07/30/2024 3:00 PM EDT Office Visit [facility] CHC ADULT DENTAL [address] [place] [address] Demario Bocanegra documented as of this encounter Visit Diagnoses Not on filedocumented in this encounter Care Teams Lodge Sales Associate Relationship Specialty Start Date End Date Cinthya Ray MD [address] [place] [address] PCP - General Family Medicine 10/23/11 Mayito Acuña, PharmD [address] [place] [address] Pharmacist Internal Medicine 03/07/23 documented as of this encounter
--- OUTSIDE RECORDS SUMMARY | 2024-04-16 13:47 | XMS_ITS | Encounter Summary ---
Author Organization [employer] Address 75 [facility] 7 [place] [address] Care Team Providers Care Brush Holder Assembler Name Role Phone Cinthya Ray MD Primary Care Provider [phone] Mayito Acuña PharmD Unavailable Encounter Details Date Type Department Care Team (Late st Contact Info) Description 01/31/2024 Orders Only [facility]INE 230 [place], [place] [phone] Cinthya Ray MD [address] [place], [place] [phone] Vitamin D deficiency (Primary Dx) Social History [...] Description 04/23/2024 3:30 PM EDT Telemedicine [facility] 230 [place] [address] Mayito Acuña PharmD 230 [place] [address] 07/30/2024 3:00 PM EDT Office Visit [facility] CHC ADULT DENTAL [address] [place] [address] Demario Bocanegra documented as of this encounter [...] documented as of this encounter Care Teams Brush Holder Assembler Relationship Specialty Start Date End Date Cinthya Ray MD 230 [place] [address] PCP - General Family Medicine 10/23/11 Mayito Acuña, DyanD [address] [place] [address] Pharmacist Internal Medicine 03/07/23 documented as of this encounter
--- OUTSIDE RECORDS SUMMARY | 2024-04-16 13:47 | XMS_ITS | Encounter Summary ---
Author Organization [employer] Address 75 [facility] 7 [place] [address] Care Team Providers Care Patient Registration Representative Name Role Phone Cinthya Ray MD Primary Care Provider [phone] Mayito Aucña PharmD Unavailable [phone] Encounter Details Date Type Department Care Team ([facility] st Contact Info) Description 06/30/2023 Orders Only [facility] MEDICINE 230 [place], [place] [phone] Mayito Acuña, PharmD 230 [place], [place] [phone] Type 2 diabetes mellitus with hyperglycemia, with long-term current use of insulin ([facility]) (Primary Dx) Social History Tobacco Use [...] 04/23/2024 3:30 PM EDT Telemedicine [facility] MEDICINE 230 [place] [address] Mayito Acuña PharmD 230 [place] [address] 07/30/2024 3:00 PM EDT Office Visit [facility] CHC ADULT DENTAL [address] [place] [address] Demario Bocanegra documented as of this encounter [...] insulin ([facility]) documented in this encounter Results * Hematoxylin and Eosin Stain (06/30/2023 12:47 PM EDT) 06/30/2023 12:4 7 PM EDT 06/30/2023 1:27 PM EDT [facility]S - 07/02/2023 9:30 AM EDT ----- ------- Name: Sonali Gill ?Age/Sex: 33/F ? : 1990 Unit#: [id number] ?? Attend Dr: Jose Figueroa MD ?Re06/30/23 ?Status: DEP SDC ? Location: HO.SSS ?Disch: ? ----- ------- SPEC : [id number] ? RECD: 06/30/23-7 ? STATUS: ??SOUT ? REQ NUM: [id number] ? MELANIA: 06/30/23-1247 ? SUBM DR: Jose Figueroa MD ? ENTERED: ??06/30/23-1 ?SP TYPE: Surgical ? OTHR DR: Cinthya [...] Gill ?Age/Sex: 33/F ? : 1990 Unit#: [id number] ?? Attend Dr: Jose Figueroa MD ?Re06/30/23 ?Status: DEP SDC ? Location: HO.SSS ?Disch: ? ----- ------- SPEC : [id number] ? RECD: 06/30/23 ? STATUS: ??SOUT ? REQ NUM: [id number] ? MELANIA: 06/30/23-1246 ? SUBM DR: Jose [...] To: ?? Jose Figueroa MD ?? [address] ?? [place] [address] ?? [phone] ?? Cinthya Ray MD ?? 230 [facility] ?? [place] [address] ?? ----- ------- Signed (signature on file) Esa Aguiar MD 07/02/23 0930 ? ----- ------- ? END OF REPORT ? us Generic External Data Provider LAB BLOOD ORDERAB LES Final Result [facility] [address] [place] [address] [phone] documented in this encounter Visit Diagnoses Diagnosis Type 2 diabetes mellitus with hyperglycemia, with long-term current use of insulin ([facility])- Primary documented in this encounter Additional Health Concerns Assessment Noted Time PHQ-9 Depression Total Score: 0 06/10/19 24 2:55 PM EDT documented as of this encounter Care Teams Patient Registration Representative Relationship Specialty Start Date End Date Cinthya Ray MD 230 [place] [address] PCP - General Family Medicine 10/23/11 Mayito Acuña, Citlali 230 [place] [address] Pharmacist Internal Medicine 03/07/23 documented as of this encounter
--- OUTSIDE RECORDS SUMMARY | 2024-04-16 13:47 | XMS_ITS | Encounter Summary ---
Author Organization [employer] [facility] Address [address] [place] [address] 7 [place] [address] Care Team Providers Care Environmental Property Assessor Name Role Phone Cinthya Ray MD Primary Care Provider [phone] Mayito Acuña PharmD Unavailable [phone] Reason for Visit * Reason Onset Date Comments Nurse Triage 03/23/2024 Encounter Details Date Type Department Care Team ([facility] st Contact Info) Description 03/23/2024 Telephone [facility] MEDICINE 230 [place], [place] [phone] Cinthya Ray MD 230 [place] [address] Nurse Triage Social History Tobacco Use Types [...] No answer LVM to return call to [facility] triage line [phone]. Will also send portal message to return call. Reviewed [facility] operating hours . Tien Rosa routed conversation to [place] Triage Nurse4 hours ago (12:47 PM) Sonali Rosa P [place] [facility] Clinical Support (supporting Cinthya Ray MD)6 [...] PM EDT Telemedicine [facility] MEDICINE [address] [place] [address] Mayito Acuña, PharmD 230 [place] [address] 07/30/2024 3:00 PM EDT Office Visit [facility] ADULT DENTAL [address] [place] [address] Demario Bocanegra documented as of this encounter [...] documented as of this encounter Care Teams Environmental Property Assessor Relationship Specialty Start Date End Date Cinthya Ray MD [address] [place] [address] PCP - General Family Medicine 10/23/11 Mayito Acuña PharmD [address] [place] [address] Pharmacist Internal Medicine 03/07/23 documented as of this encounter
--- OUTSIDE RECORDS SUMMARY | 2024-04-16 13:47 | XMS_ITS | Encounter Summary ---
Author Organization [employer] Address [address] [place] [address] 7 [place] [address] Care Team Providers Care Account Executive Sales Representative Name Role Phone Cinthya Ray MD Primary Care Provider [phone] Mayito Acuña PharmD Unavailable [phone] Reason for Visit * Reason Onset Date Comments Med Refill 09/29/2023 Encounter Details Date Type Department Care Team (Late st Contact Info) Description 09/29/2023 Refill [facility] MEDICINE 230 [place], [place] [phone] Cinthya Ray MD 230 [place], [place] [phone] Type 2 diabetes mellitus with hyperglycemia, without long-term current use of insulin ([facility]) Social [...] 3:30 PM EDT Telemedicine [facility] MEDICINE 230 [place] [address] Mayito Acuña, PharmD 230 [place] [address] 07/30/2024 3:00 PM EDT Office Visit [facility] CHC ADULT DENTAL [address] [place] [address] Demario Bocanegra documented as of this encounter [...] hyperglycemia, without long-term current use of insulin ([facility]) documented in this encounter Additional Health Concerns Assessment Noted Time PHQ-9 Depression Total Score: 11 024 9:48 AM EDT documented as of this encounter Care Teams Account Executive Sales Representative Relationship Specialty Start Date End Date Cinthya Ray MD 230 [place] [address] PCP - General Family Medicine 10/23/11 Mayito Acuña, Citlali 230 [place] [address] Pharmacist Internal Medicine 03/07/23 documented as of this encounter
--- OUTSIDE RECORDS SUMMARY | 2024-04-16 13:47 | XMS_ITS | Encounter Summary ---
Author Organization [employer] Address 75 [facility] 7 [place] [address] Care Team Providers Care Tapeman Name Role Phone Cinthya Ray MD Primary Care Provider [phone] Mayito Acuña PharmD Unavailable [phone] Encounter Details Date Type Department Care Team (Late st Contact Info) Description 04/06/2024 Orders Only [facility] MEDICINE [address] [place], [place] [phone] Lexis Spann MD [address] [place], [place] [phone] Social History Tobacco Use Types Packs/Day Years [...] Info) Description 04/23/2024 3:30 PM EDT Telemedicine [facility] MEDICINE 230 [place], [place] [phone] Mayito Acuña, PharmD [address] [place] [address] 07/30/2024 3:00 PM EDT Office Visit [facility] ADULT DENTAL [address] [place] [address] Demario Bocanegra documented as of this encounter [...] DETECTION BY PCR NOT DETECTED Not Detect [facility] BACTERIAL VAGINOSIS DETECTION BY PCR POSITIVE(A) Negative [facility] Comment:The BV organism targ ets of [...] DETECTION BY PCR NOT DETECTED Not Detect [facility] Deyanira glab krusei PCR NOT DETECTED Not Detect [facility] 04/06/2024 5:04 PM EST 04/07/2024 11:23 AM EST us Lexis Spann MD LAB MICROBIOLOGY - GENER AL ORDERABLES Final Result [facility] [address] [place] [address] [phone] documented in this encounter Visit Diagnoses Not on filedocumented in this encounter Additional Health Concerns Assessment Noted Time PHQ-9 Depression Total Score: 11 024 9:48 AM EDT documented as of this encounter Care Teams Tapeman Relationship Specialty Start Date End Date Cinthya Ray MD 230 [place] [address] PCP - General Family Medicine 10/23/11 Mayito Acuña, Citlali [address] [place] [address] Pharmacist Internal Medicine 03/07/23 documented as of this encounter
--- OUTSIDE RECORDS SUMMARY | 2024-04-16 13:47 | XMS_ITS | Encounter Summary ---
Author Organization [employer] Address 75 [facility] 7 [place] [address] Care Team Providers Care Technical Support Professional Name Role Phone Cinthya Ray MD Primary Care Provider [phone] Mayito Acuña PharmD Unavailable Encounter Details Date Type Department Care Team ([facility] st Contact Info) Description 03/05/2023 Orders Only [facility] MEDICINE 230 [place], [place] [phone] Cinthya Ray MD 230 [place], [place] [phone] Social History Tobacco Use Types Packs/Day Years [...] 04/23/2024 3:30 PM EDT Telemedicine [facility] MEDICINE 230 [place] [address] Mayito Acuña PharmD [address] [place] [address] 07/30/2024 3:00 PM EDT Office Visit [facility] CHC ADULT DENTAL [address] [place] [address] Demario Bocanegra documented as of this encounter Goals Goal Patient Goal Type Associated Problems Recent Progress Patient-Stated? Author Blood Pressure < 140/90 Blood Pressure 120/70(2024 5:10 PM EST) No Mayito Acuña PharmD Hemoglobin A1c < 7 Result Component 6.1( 10:46 AM EST) No Mayito Acuña PharmD documented as of this encounter Visit Diagnoses Not on filedocumented in this encounter Care Teams Technical Support Professional Relationship Specialty Start Date End Date Cinthya Ray MD [address] [place] [address] PCP - General Family Medicine 10/23/11 Mayito Acuña PharmD [address] [place] [address] Pharmacist Internal Medicine 03/07/23 documented as of this encounter
--- OUTSIDE RECORDS SUMMARY | 2024-04-16 13:47 | XMS_ITS | Encounter Summary ---
Author Organization [employer] Address 75 [facility] 7t [place] [address] Care Team Providers Care Loom Blower Name Role Phone Cinthya Ray MD Primary Care Provider [phone] Mayito Acuña PharmD Unavailable [phone] Encounter Details Date Type Department Care Team (Late st Contact Info) Description 04/07/[address] [facility] MEDICINE 230 [place], [place] [phone] Lexis Spann MD 230 [place], [place] [phone] Social History Tobacco Use Types Packs/Day Years [...] Description 04/23/2024 3:[address] [facility] MEDICINE 230 [place] [address] Mayito Acuña PharmD 230 [place] [address] 07/30/2024 3:00 PM EDT Office Visit [facility] CHC ADULT DENTAL [address] [place] [address] Demario Bocanegra documented as of this encounter [...] documented as of this encounter Care Teams Loom Blower Relationship Specialty Start Date End Date Cinthya Ray MD 230 [place] [address] PCP - General Family Medicine 10/23/11 Mayito Acuña PharmD [address] [place] [address] Pharmacist Internal Medicine 03/07/23 documented as of this encounter
--- OUTSIDE RECORDS SUMMARY | 2024-04-16 13:47 | XMS_ITS | Encounter Summary ---
Author Organization [employer] [facility] Address [address] [place] [address] 7 [place] [address] Care Team Providers Care School Office Manager Name Role Phone Cinthya Ray MD Primary Care Provider [phone] Mayito Acuña PharmD Unavailable [phone] Reason for Referral * Consultation (Routine) - Authorized Specialty Diagnoses / Procedures Referred By Contcarly t Referred To Contact Pharmacy Diagnoses Type 2 diabetes mellitus with hyperglycemia, with long-term current use of insulin (CMS/HCC) Cinthya Ray MD [address] [place] [address] Phone: tel: fax: Referral ID Status Reason Start Date Expiration Date Visits Requested Visits Authorized [id number] Authorized Consult and Treat 12/23/2023 12/22/2024 6 6 Encounter Details Date Type Department Care Team (Late st Contact Info) Description 12/23/2023 Orders Only [facility] MEDICINE [address] [place] [address] [phone] Cinthya Ray MD [address] [place], [place] [phone] Type 2 diabetes mellitus with hyperglycemia, with [...] 04/23/2024 3:30 PM EDT Telemedicine [facility] MEDICINE 230 [place] [address] Mayito Acuña, PharmD 230 [place] [address] 07/30/2024 3:00 PM EDT Office Visit [facility] CHC ADULT DENTAL [address] [place] [address] Demario Bocanegra Scheduled Referrals Name Type Priority Associated Diagnoses Orde r Schedule Referral to Pharmacy CDTM Outpatient Referral Routine Type 2 diabetes mellitus with hyperglycemia, with long-term current use of insulin ([facility]) Ordered: 12/23/2023 documented as of [...] hyperglycemia, with long-term current use of insulin ([facility])- Primary documented in this encounter Additional Health Concerns Assessment Noted Time PHQ-9 Depression Total Score: 11 024 9:48 AM EDT documented as of this encounter Care Teams School Office Manager Relationship Specialty Start Date End Date Cinthya Ray MD 230 [place] [address] PCP - General Family Medicine 10/23/11 Mayito Acuña PharmD [address] [place] [address] Pharmacist Internal Medicine 03/07/23 documented as of this encounter
--- OUTSIDE RECORDS SUMMARY | 2024-04-16 13:47 | XMS_ITS | Encounter Summary ---
Author Organization [employer] [facility] Address [address] [place] [address] 7 [place] [address] Care Team Providers Care Bread Molder Name Role Phone Cinthya Ray MD Primary Care Provider [phone] Mayito Acuña PharmD Unavailable [phone] Reason for Visit * Reason Onset Date Comments Med Refill 03/23/2024 Encounter Details Date Type Department Care Team (Late st Contact Info) Description 03/23/2024 Refill [facility] 230 [place], [place] [phone] Cinthya Ray MD 230 [place], [place] [phone] Social History Tobacco Use Types Packs/Day Years [...] 04/23/2024 3:30 PM EDT Telemedicine [facility] 230 [place] [address] Mayito Acuña PharmD [address] [place] [address] 07/30/2024 3:00 PM EDT Office Visit [facility] ADULT DENTAL [address] [place] [address] Demario Bocnaegra documented as of this encounter [...] documented as of this encounter Care Teams Bread Molder Relationship Specialty Start Date End Date Cinthya Ray MD [address] [place] [address] PCP - General Family Medicine 10/23/11 Mayito Acuña, DyanD [address] [place] [address] Pharmacist Internal Medicine 03/07/23 documented as of this encounter"
--- OUTSIDE RECORDS SUMMARY | 2024-04-16 13:47 | XMS_ITS | Encounter Summary ---
Author Organization [employer] Address [address] [facility] [address] 7t [place] [address] Care Team Providers Care Log Cooker Name Role Phone Cinthya Ray MD Primary Care Provider [phone] Mayito Acuña PharmD Unavailable [phone] Encounter Details Date Type Department Care Team (Late st Contact Info) Description 04/13/2024 Telephone [facility] 230 [place], [place] [phone] Lexis Spann MD 230 [place] [address] Social History Tobacco Use Types Packs/Day Years [...] message left for pt toreturn call to [facility]. Pt to F/U as needed. ----- Message [...] Upcoming Encounters Date Type Department Care Team ([facility] st Contact Info) Description 04/23/2024 3:30 PM EDT Telemedicine [facility] [address] [place] [address] [place] [address] Mayito Acuña, DyanD [address] [place] [address] 07/30/2024 3:00 PM EDT Office Visit [facility] CHC ADULT DENTAL [address] [place] [address] Demario Bocanegra documented as of this encounter [...] documented as of this encounter Care Teams Log Cooker Relationship Specialty Start Date End Date Cinthya Ray MD [address] [place] [address] PCP - General Family Medicine 10/23/11 Mayito Acuña, Citlali [address] [place] [address] Pharmacist Internal Medicine 03/07/23 documented as of this encounter
--- OUTSIDE RECORDS SUMMARY | 2024-04-16 13:47 | XMS_ITS | Encounter Summary ---
Author Organization [employer] Address 75 [facility] 7 [place] [address] Care Team Providers Care Timber Skidder Name Role Phone Cinthya Ray MD Primary Care Provider [phone] Mayito Acuña PharmD Unavailable [phone] Encounter Details Date Type Department Care Team (Late st Contact Info) Description 03/05/2024 Orders Only [facility] MEDICINE 230 [place], [place] [phone] Cinthya Ray MD 230 [place], [place] [phone] Type 2 diabetes mellitus with other specified complication, with long-term current use of insulin ([facility]) (Primary Dx) Social History Tobacco Use Types [...] the past 12 months, has t he [employer], gas, oil or water company threatened to [...] PM EDT Telemedicine [facility] MEDICINE [address] [place] [address] Mayito Acuña PharmD [address] [place] [address] 07/30/2024 3:00 PM EDT Office Visit [facility] CHC ADULT DENTAL [address] [place] [address] Demario Bocanegra documented as of this encounter [...] current use of insulin ([facility])- Primary documented in this encounter Additional Health Concerns Assessment Noted Time PHQ-9 Depression Total Score: 11 024 9:48 AM EDT documented as of this encounter Care Teams Timber Skidder Relationship Specialty Start Date End Date Cinthya Ray MD [address] [place] [address] PCP - General Family Medicine 10/23/11 Mayito Acuña PharmD [address] [place] [address] Pharmacist Internal Medicine 03/07/23 documented as of this encounter
--- OUTSIDE RECORDS SUMMARY | 2024-04-16 13:47 | XMS_ITS | Encounter Summary ---
Author Organization [employer] Address 75 [facility] 7 [place] [address] Care Team Providers Care Heavy Equipment Operator Apprentice Name Role Phone Cinthya Ray MD Primary Care Provider [phone] Mayito Acuña PharmD Unavailable [phone] Encounter Details Date Type Department Care Team ([facility] st Contact Info) Description 09/15/2023 Orders Only [facility] MEDICINE 230 [place], [place] [phone] Cinthya Ray MD 230 [place], [place] [phone] Type 2 diabetes mellitus with hyperglycemia, without long-term current use of insulin ([facility]) Social History Tobacco Use Types Packs/Day [...] Info) Description 04/23/2024 3:30 PM EDT Telemedicine [facility] MEDICINE [address] [place] [address] Mayito Acuña PharmD [address] [place] [address] 07/30/2024 3:00 PM EDT Office Visit [facility] CHC ADULT DENTAL [address] [place] [address] Demario Bocanegra documented as of this encounter [...] without long-term current use of insulin ([facility]) documented in this encounter Additional Health Concerns Assessment Noted Time PHQ-9 Depression Total Score: 0 09/10/19 24 9:01 AM EDT documented as of this encounter Care Teams Heavy Equipment Operator Apprentice Relationship Specialty Start Date End Date Cinthya Ray MD [address] [place] [address] PCP - General Family Medicine 10/23/11 Mayito Acuña, DyanD [address] [place] [address] Pharmacist Internal Medicine 03/07/23 documented as of this encounter
--- OUTSIDE RECORDS SUMMARY | 2024-04-16 13:47 | XMS_ITS | Clinical Summary ---
Author Organization [employer] Address [address] [place] [address] 7 [place] [address] Care Team Providers Care Ticket Clerk Name Role Phone Cinthya Ray MD Primary Care Provider [phone] Mayito Acuña PharmD Unavailable [phone] Allergies No known active allergies Medications * This document contains information received from the source organization and may not represent a complete record from that organization. Blood Glucose Monitoring Suppl ([employer] [place]ite) w/Device kit TEST BLOOD SUGAR EVERY DAY 022 Active Alcohol Swabs (Alcohol Prep) 70 % padsIndications: Type 2 diabetes mellitus with hyperglycemia ([facility]) USE FOUR TIMES DAILY AND NEEDED 100 each 11 023 Active TRUEplus Lancets 33G miscIndications: Type 2 diabetes mellitus with hyperglycemia ([facility]) TEST BLOOD SUGAR FOUR TIMES [...] current use of insulin ([facility]) INJECT 48 UNITS SUBCUTANEOUSLY ONCE EVERY DAY 45 mL 3 024 Active metroNIDAZOLE (Metrogel) 0.75 % vaginal gelIndications:B acterial Vaginosis Insert one applicator into vagina at bedtime for 7 nights 45 g 024 Active Continuous Glucose Sensor (Gibi TechnologiesStyle Audrey 2 Sensor) miscIndications: Type 2 diabetes mellitus with hyperglycemia, without long-term current use of insulin ([facility]) Apply 1 sensor every 14 days 2 each 11 024 Active SUMAtriptan (Imitrex) 25 MG tabletIndication s:Injury of head, initial encounter TAKE 1 TAB ORALLY AFTER MIGRAINE ONSET MAY REPEAT AFTER 2HRS IF HEADACHE RETURNS,MAX 200MG IN 24HRS 9 tablet 024 Active Continuous Glucose General Expeditor (FreeStyle Audrey 2 [place]) deviceIndication s:Type 2 diabetes mellitus with hyperglycemia, without long-term current use of insulin ([facility]) SCAN sensory EVERY 8 HOURS 1 each 024 Active Glucose 2 g chewable tabletIndication s:Type 2 diabetes mellitus with hyperglycemia, with long-term current use of insulin ([facility]) Chew 2 g Once per [...] current use of insulin ([facility]) INJECT ONE PEN (=7.5MG) SUBCUTANEOUSLY [...] both her parents. She had services with [facility] for psychiatry and individual therapy, but lost [...] information. Pt prefers to utilized [facility] with [facility] for same-day appointments. Pt will request psychopharmacology and individual therapy. clinician will follow-up to provide additional support. Sen's esophagus 09/09/2023 Assessment & Plan (11/30/2023 1:26 PM EDT): -Following with [facility], last seen on -06/30/23 EGD Sen esophagus with mild chronic active inflammation, stomach mild chronic inactive inflammation, normal duodenum. -Repeat EGD in 2 years -Continue pantoprazole Assessment & Plan (09/09/2023 6:00 AM EDT): -Following with [facility], last seen on -06/30/23 EGD Sen [...] considering a bariatric surgery and went to [facility] wt management clinic. She restarted going to [facility] management clinic. - She had worked with our diabetes education nurse, Ene Arias from Nov to Dec 2021. - Currently showing good attendance to CD[facility]; appreciated her effort - Eye exam: 01/24/23 [facility]. No diabetic retinopathy - Comprehensive [...] considering a bariatric surgery and went to [facility] wt management clinic - She had worked with our diabetes education nurse, Ene Arias from Nov to Dec 2021. - Currently showing good attendance to CD[facility]; appreciated her effort - Eye exam: 01/24/23 [facility]. No diabetic retinopathy - Comprehensive [...] considering a bariatric surgery and went to [facility] management clinic - She had worked with our diabetes education nurse, Ene Arias from Nov to Dec 2021. - Currently showing good attendance to CD[facility]; appreciated her effort - Eye exam: 01/24/23 [facility]. No diabetic retinopathy - Comprehensive [...] considering a bariatric surgery and went to [facility] management clinic - She had worked with our diabetes education nurse, Ene Arias from Nov to Dec 2021. - Currently showing good attendance to CD[facility]; appreciated her effort - Eye exam: 01/24/23 [facility]. No diabetic retinopathy - Comprehensive [...] considering a bariatric surgery and went to [facility] wt management clinic - She had worked with our diabetes education nurse, Ene Arias from Nov to Dec 2021. - Currently showing good attendance to CD[facility]; appreciated her effort - Eye exam: 01/24/23 [facility]. No diabetic retinopathy - Comprehensive [...] considering a bariatric surgery and went to [facility] wt management clinic - She had worked with our diabetes education nurse, Ene Arias from Nov to Dec 2021. - Refer to [facility] - Eye exam: 01/24/23 [facility]. No diabetic retinopathy - Comprehensive [...] considering a bariatric surgery and went to [facility] wt management clinic - She had worked with our diabetes education nurse, Ene Arias from Nov to Dec 2021. - Eye exam: 01/21/22 [facility]. No diabetic retinopathy - Comprehensive [...] considering a bariatric surgery and went to [facility] wt management clinic - She had worked with our diabetes education nurse, Ene Arias from Nov to Dec 2021. - Eye exam: 01/21/22 [facility]. No diabetic retinopathy - Comprehensive [...] considering a bariatric surgery and went to [facility] wt management clinic - She had worked with our diabetes education nurse, Ene Arias from Nov to Dec 2021. - Eye exam: 01/21/22 [facility]. No diabetic retinopathy - Comprehensive [...] considering a bariatric surgery and went to [facility] wt management clinic - She had worked with our diabetes education nurse, Ene Arias from Nov to Dec 2021. - Eye exam: 01/21/22 [facility]. No diabetic retinopathy - Comprehensive [...] considering a bariatric surgery and went to [facility] wt management clinic - She had worked with our diabetes education nurse, Ene Arias from Nov to Dec 2021. - Eye exam: 01/21/22 [facility]. No diabetic retinopathy - Comprehensive Foot exam: [...] considering a bariatric surgery and went to [facility] wt management clinic - She had worked with our diabetes education nurse, Ene Arias from Nov to Dec 2021. - Eye exam: 01/21/22 [facility]. No diabetic retinopathy - Comprehensive [...] 2021. - completed Partial Hospitalization Program at [facility] 11/09/21 - 11/23/21 - current medication: none -Previous medication treatment Hx: venlafaxine was self-discontinued; trazodone was prescribed by psychiatrist while she was attending [facility], but pt self-discontinued due to ineffectivenss; sertraline 50 mg daily, patient self-discontinued. - previously seeing [facility] clinician and waiting for psychiatrist, patient has not been engaged in behavioral health therapy currently. - contacted by [facility] behavioral health service and was referred to off-site service - patient has developed healthy coping skills Assessment & Plan (11/30/2023 1:22 PM EDT): - MDD vs. bipolar - severe exacerbation of Depression w/ SI in October 2021. - completed Partial Hospitalization Program at [facility] 11/09/21 - 11/23/21 - current medication: none -Previous medication treatment Hx: venlafaxine was self-discontinued; trazodone was prescribed by psychiatrist while she was attending [facility], but pt self-discontinued due to ineffectivenss; sertraline 50 mg daily, patient self-discontinued. - previously seeing [facility] clinician and waiting for psychiatrist, patient has not been engaged in behavioral health therapy currently. - contacted by [facility] and was referred to off-site service - patient has developed healthy coping skills Assessment & Plan (03/07/2023 5:55 AM EST): - MDD vs. bipolar - severe exacerbation of Depression w/ SI in October 2021. - completed Partial Hospitalization Program at [facility] 11/09/21 - 11/23/21 - current medication: none -Previous medication treatment Hx: venlafaxine was self-discontinued; trazodone was prescribed by psychiatrist while she was attending [facility], but pt self-discontinued due to ineffectivenss; sertraline 50 mg daily, patient self-discontinued. - previously seeing [facility] clinician and waiting for psychiatrist, patient has not been engaged in behavioral health therapy currently. - will consider referring back Assessment & Plan (11/12/2022 4:17 PM EDT): - severe exacerbation of Depression w/ SI in October 2021. - completed Partial Hospitalization Program at [facility] 11/09/21 - 11/23/21 - Medication: Sertraline 50 mg daily -Previous medication treatment Hx: venlafaxine was self-discontinued; trazodone was prescribed by psychiatrist while she was attending [facility], but pt self-discontinued due to ineffectivenss - still on waiting list for outpatient appt with psychiatrist and therapist. - Able to contract her safety today - Continue BHS with [facility] Assessment & Plan (08/30/2022 12:43 PM EDT): - severe exacerbation of Depression w/ SI in October 2021. - completed Partial Hospitalization Program at [facility] 11/09/21 - 11/23/21 - Medication: Sertraline 50 mg daily -Previous medication treatment Hx: venlafaxine was self-discontinued; trazodone was prescribed by psychiatrist while she was attending [facility], but pt self-discontinued due to ineffectivenss - still on waiting list for outpatient appt with psychiatrist and therapist. - Able to contract her safety today - Continue [facility] with [facility] Assessment & Plan (06/24/2022 11:25 AM EDT): - severe exacerbation of Depression w/ SI in October 2021. - completed Partial Hospitalization Program at [facility] 11/09/21 - 11/23/21 - Medication treatment [...] 2021. - completed Partial Hospitalization Program at [facility] 11/09/21 - 11/23/21 - Medication treatment [...] 2021. - completed Partial Hospitalization Program at [facility] 11/09/21 - 11/23/21 - Medication treatment [...] 2021. - completed Partial Hospitalization Program at [facility] 11/09/21 - 11/23/21 - Medication treatment [...] - previously participated weight management program at [facility], recently started seeing them again. - goal of wieght being 171 lbs to get surgery done. - continue working on lifestyle modifications - associated comorbidity: STELLA, DM2 Assessment & Plan (11/26/2023 2:16 PM EDT): - previously participated weight management program at [facility] - continue working on lifestyle modifications - associated comorbidity: STELLA, DM2 Assessment & Plan (11/18/2022 7:07 AM EDT): - previously participated weight management program at [facility] - continue working on lifestyle modifications - associated comorbidity: STELLA, DM2 Assessment & Plan (04/04/2022 7:14 PM EST): - previously participated weight management program at [facility] - continue working on lifestyle modifications - associated comorbidity: STELLA, DM2 Assessment & Plan (02/22/2022 4:37 PM EST): - previously participated weight management program at [facility] - continue working on lifestyle modifications - [...] Type Department Care Team Description 04/13/2024 Telephone [facility] [address] [place] [phone] Lexis Spann MD 04/07/[address] [address] Lexis Spann MD 04/07/2024 Orders Only [facility] [address] [place] [address] Lexis Spann MD 04/06/2024 5:00 PM EST Office Visit [facility] [address] [place] [phone] Lexis Spann MD Lower urinary tract symptoms (LUTS) (Primary Dx); Vaginal discharge 04/06/2024 Orders Only [facility] [address] [place] [address] Lexis Spann MD 04/01/[address] [address] Rianna Solis RNpost commander 03/23/[address] [address] Cinthya Ray MD Nurse Triage 03/23/2024 Refill [facility] [address] [place] [address] Cinthya Ray MD 03/12/2024 Orders Only [facility] External Provider, [facility] 03/12/2024 Refill [facility] [address] [place] [address] Cinthya Ray MD Type 2 diabetes mellitus with hyperglycemia, without long-term current use of insulin (CMS/HCC) 03/05/2024 Orders Only [facility] [address] [place] [address] Cinthya Ray MD Type 2 diabetes mellitus with other specified complication, with long-term current use of insulin (CMS/HCC) (Primary Dx) 03/04/2024 Telephone [facility] [address] [place] [address] Janey Jaramillo MA april recall 03/02/2024 10:00 AM EST Office Visit [facility] [address] [place] [address] Sonali Tellez MD Cough in adult patient 02/26/2024 2:00 PM EST Office Visit [facility] [address] [place] [address] Sonali Tellez MD Viral upper respiratory infection (Primary Dx); Influenza 02/23/2024 Orders Only [facility] External Provider, [facility] 02/20/2024 2:00 PM EST Office Visit [facility] [address] [place] [address] [facility] 02/16/2024 Refill [facility] [address] [place] [address] Mayito Acuña, Citlali Type 2 diabetes mellitus with hyperglycemia, with long-term current use of insulin (CMS/HCC) 02/13/2024 Travel 02/10/2024 Telephone [facility] [address] [place] [address] Cinthya Ray MD Referral 02/05/2024 Orders Only [address] [address] Cinthya Ray MD Chronic left shoulder pain (Primary Dx) 01/31/2024 Orders Only [address] [address] Cinthya Ray MD Vitamin D deficiency (Primary Dx) 01/30/2024 8:00 AM EST Office Visit [facility] [address] [place] [address] Demario Bocanegra Dental calculus (Primary Dx) 01/28/[address] [address] Cinthya Ray MD 01/27/2024 3:00 PM EST Office Visit [address] [address] Cinthya Ray MD Type 2 diabetes mellitus with hyperglycemia, with long-term current use of insulin ([facility]) (Primary Dx); Chronic left shoulder pain; Decreased [...] Generic External Data 01/25/2024 Travel 01/22/[address] [address] Janey Jaramillo MA chart prep 01/20/2024 Travel from Last 3 Months Immunizations Name [...] Info) Description 04/23/2024 3:30 PM EDT Telemedicine [facility] [address] [place] [address] Mayito Acuña, PharmD [address] [place] [address] 07/30/2024 3:00 PM EDT Office Visit [facility] [address] [place] [address] Demario Bocanegra Health Maintenance Due Date Last [...] 06/04/2023, 08/08/2022 Depression Screening 09/28/2024 09/29/2023, 09/29/19 24 Diabetes: Foot Exam 11/25/2024 11/26/2023, 11/26/2023, 11/26/2023, [...] 120/70(2024 5:10 PM EST) No Mayito Acuña, DyanD Hemoglobin A1c < 7 Result Component 6.1( [...] DETECTION BY PCR NOT DETECTED Not Detect [facility] BACTERIAL VAGINOSIS DETECTION BY PCR POSITIVE(A) Negative [facility] Comment:The BV organism targ ets [...] DETECTION BY PCR NOT DETECTED Not Detect [facility] Deyanira glab krusei PCR NOT DETECTED Not Detect [facility] 04/06/2024 5:04 PM EST 04/07/2024 11:23 AM EST Lexis Spann MD LAB MICROBIOLOGY - GENER AL ORDERABLES Final Result [facility] [address] [place] [address] [phone] * Chlamydia/N. Gonorrhoeae RNA, TMA, Urogenitial (04/06/2024 5:04 PM EST) CT PCR NOT DETECTED Not Detect. [facility] Comment:A not detected test result [...] psychologicalconsequences. NG PCR NOT DETECTED Not Detect. [facility] Comment:A not detected test result [...] PM EST 04/07/2024 11:15 AM EST Narrative [facility] - 04/07/2024 1:26 PM EST Vaginal Lexis Spann MD LAB MICROBIOLOGY - GENER AL ORDERABLES Final Result Performing Organization Address [facility] Co de Phone Number [facility] [address] [place] [phone] * Culture, Urine, Routine (04/06/2024 12:00 AM EST) Urine Urine specimen obtained by clean catch procedure / Unknown 04/06/2024 04/06/2024 Comment:[facility] Narrative [facility] - 04/10/2024 7:29 AM EST [...] AL ORDERABLES Final Result Performing Organization Address [facility] [[email or web address]] de Phone Number [facility] [address] [place] [phone] * MR Shoulder w/o Contrast Left (03/12/2024 7:15 PM EST) Anatomical Region Laterality Modality Upper Extremities, Shoulder Left Magn etic Resonance 03/12/2024 7:15 PM EST Narrative 03/15/2024 10:07 AM EST ? [facility] [place] [facility] ?[address] ?[place] [address] ? Magnetic Resonance Report ? Signed ? Patient: Sonali Gill ?MR#: ?? [id number] ? : 1990 ?Acct:[id number] ? Age/Sex: 34 / F ?ADM Date: 03/12/24 ? Loc: HO.MRI ? Attending Dr: Al Hays MD ? Ordering Physician: Al Hays MD ?? Date of Service: 03/12/24 ?? Procedure(s): MR shoulder LT wo con ?? Accession Number(s): [id number] ? cc: Al Hays MD; Cinthya Ray [...] MD in OV> ?03/15/24 1004 ? DD/ 1915 ? TD/TT: 03/12/241939 ? Sharepoint Specialist: ? Procedure Note Alfie Walden - 03/15/[address] [address] Magnetic Resonance Report Signed Patient: Jeremy Gill#: [id number] : 1990Acct:[id number] Age/Sex: 34 / FADM Date: 03/12/24 Loc: HO.MRI Attending Dr: Al Hays MD Ordering Physician: Al Hays MD Date of Service: 03/12/24 Procedure(s): MR shoulder LT wo con Accession Number(s): [id number] cc: Al Hays MD; Cinthya Ray MD [...] 03/15/24 1004 DD/ 14 TD/TT: 03/12/241939 Sharepoint Specialist: [facility] External Provider IMG MRI PROCEDURES Final Result * POCT Rapid Influenza B SEBASTIAN ID NOW (03/02/2024 10:18 AM EST) Only the most recent of2 resultswithin the time period is included. [facility] Influenza B Negative Negative, Indeterminate [facility] Swab 03/02/2024 10:1 8 AM EST Sonali Tellez MD POINT OF CARE TEST ENTER/E DIT ORDERABLES Final Result Performing Organization Address [facility] Co de Phone Number [facility] [address] [place] [phone] * POCT Rapid Influenza A SEBASTIAN ID NOW (03/02/2024 10:18 AM EST) Only the most recent of2 resultswithin the time period is included. [facility] Influenza A Negative Negative, Indeterminate [facility] Swab 03/02/2024 10:1 8 AM EST Sonali Tellez MD POINT OF CARE TEST ENTER/E DIT ORDERABLES Final Result Performing Organization Address [facility] [[email or web address]] de Phone Number [facility] [address] [place] [phone] * POCT Rapid Covid-19 BinaxNOW (03/02/2024 10:18 AM EST) Only the most recent of2 resultswithin the time period is included. [facility] Rapid COVID Ag Negative Swab 03/02/2024 10:1 8 AM EST Sonali Tellez MD POINT OF CARE TEST ENTER/E DIT ORDERABLES Final Result * POCT rapid strep A manually resulted (03/02/2024 10:18 AM EST) [facility] Rapid Strep A Screen Negative Negative, [...] EST Narrative 02/24/2024 10:28 AM EST ? [facility] ?[address] ?[place] [address] ? Ultrasound Report ? Signed ? Patient: Sonali Gill ?MR#: ?? [id number] ? : 1990 ?Acct:[id number] ? Age/Sex: 33 / F ?ADM Date: 02/23/24 ? Loc: HO.US ? Attending Dr: Nate Mijares MD ? Ordering Physician: Nate Mijares MD ?? Date of Service: 02/23/24 ?? Procedure(s): US abdomen comp w elastography ?? Accession Number(s): [id number] ? cc: Nate Mijares MD; Cinthya Ray [...] ? Signed By: ?<Electronically signed by Anand eVra MD in OV> ?02/24/24 1025 ? DD/ 0841 ? TD/TT: 02/23/24 0854 ? Sharepoint Specialist: ? Procedure Note Sevenantoineter, Image - 02/24/[address] [address] Ultrasound Report Signed Patient: Jose RosaUmbertodellGiovanni#: [id number] : 1990Acct:[id number] Age/Sex: 33 / FADM Date: 02/23/24 Loc: HO.US Attending Dr: Nate Mijares MD Ordering Physician: Nate Mijares MD Date of Service: 02/23/24 Procedure(s): US abdomen comp w elastography Accession Number(s): [id number] cc: Nate Mijares MD; Cinthya Ray MD [...] 1025 DD/ 0841 TD/TT: 02/23/24 0854 Sharepoint Specialist: us [facility] External Provider IMG US PROCEDURES Final Result * XR Shoulder 2+ Views Left (01/27/2024 3:56 PM EST) Anatomical Region Laterality Modality Upper Extremities, Shoulder Left Radi ographic Imaging 01/27/2024 3:56 PM EST Narrative 01/28/2024 10:15 AM EST ?[facility] ?[address] ?[place] [address] ?XRay Report ? Signed ? Patient: Garciajose carlos Rosa,Yamarie ?MR#: ?? [id number] ? : 1990 ?Acct:[id number] ? Age/Sex: 33 / F ?ADM Date: 01/27/24 ? Loc: HO.HHCX ? Attending Dr: Cinthya Ray MD ? Ordering Physician: Cinthya Ray MD ?? Date of Service: 01/27/24 ?? Procedure(s): XR shoulder LT min 2V ?? Accession Number(s): [id number] ? cc: Cinthya Ray MD ? EXAMINATION: [...] 1556 ? TD/TT: 01/27/24 1600 ? Sharepoint Specialist: ? Procedure Note Win, Image - 01/28/[address] [address] XRay Report Signed Patient: Jeremy Gill#: [id number] : 1990Acct:[id number] Age/Sex: 33 / FADM Date: 01/27/24 Loc: HO.HHCX Attending Dr: Cinthya Ray MD Ordering Physician: Cnithya Ray MD Date of Service: 01/27/24 Procedure(s): XR shoulder LT min 2V Accession Number(s): [id number] cc: Cinthya Ray MD EXAMINATION: XR SHOULDER, [...] 1012 DD/ 1556 TD/TT: 01/27/24 1600 Sharepoint Specialist: us Cinthya Ray MD IMG XR PROCEDURES Edited Result - Final * XR Chest 2 Views (01/26/2024 10:47 AM EST) Anatomical Region Laterality Modality Chest Radiographic Viky ging 01/26/2024 10:4 7 AM EST Narrative 03/10/2024 4:39 PM EST ? [facility] ?[address] ?[place] [address] ?XRay Report ? Signed ? Patient: Sonali Gill ?MR#: ?? [id number] ? : 1990 ?Acct:[id number] ? Age/Sex: 33 / F ?ADM Date: 12/16/24 ? Loc: HO.XRAY ? Attending Dr: Nate Mijares MD ? Ordering Physician: Nate Mijares MD ?? Date of Service: 01/26/24 ?? Procedure(s): XR chest 2V ?? Accession Number(s): [id number] ? cc: Nate Mijares MD; Cinthya Ray [...] 1047 ? TD/TT: 01/26/24 1055 ? Sharepoint Specialist: ? Procedure Note Donlary, Image - 03/10/2024 [place] [address] XRay Report Signed Patient: Roscoe GillR#: [id number] : 1990Acct:[id number] Age/Sex: 33 / FADM Date: 01/26/24 Loc: [facility] Attending Dr: Nate Mijares MD Ordering Physician: Nate Mijares MD Date of Service: 01/26/24 Procedure(s): XR chest 2V Accession Number(s): [id number] cc: Nate Mijares MD; Cinthya Ray MD [...] 1636 DD/ 1047 TD/TT: 01/26/24 1055 Sharepoint Specialist: [facility] External Provider IMG XR PROCEDURES Edited Result - Final * (ABNORMAL) Vitamin D, 25-Hydroxy, Total, Immunoassay (01/26/2024 10:46 AM EST) Vitamin D 25-OH Total 15.9(L) >30 ng/mL [facility] Comment:Health Based Referen ce Values*< 20 ng/mL Icjdgrkjf18-36 ng/mL Insufficient> 30 ng/mL Sufficient*Jaylon BLUNT. N [...] Provider LAB BLOOD ORDERAB LES Final Result [facility] [address] [place] [phone] * Vitamin B12 (Cobalamin) and Folate Panel, Serum (01/26/2024 10:46 AM EST) Vitamin B12 537 200 - 900 pg/mL [facility] Comment:NORMAL 200-900 PG/ML INDETERMINATE 160-199 PG/ML DEFICIENT < 160 PG/ML Folate 7.4 > or = 4.0 ng/mL [facility] Comment:Reference Values:> o r = 4.0 ng/mL< 4.0 ng/mL suggests folate deficiency Methotrexate, aminopterin and folinic acid(leucovorin) are chemotherapeutic agents whose molecularstructures are similar to folate; therefore, the Architectfolate assay cannot be used for patients using these drugs. 01/26/2024 10:4 6 AM EST 01/26/2024 10:46 AM EST us Generic External Data Provider LAB BLOOD ORDERAB LES Final Result [facility] [address], [place] [phone] * (ABNORMAL) CBC auto differential (01/26/2024 10:46 AM EST) White Blood Count 9.1 4.8 - 10.8 X10*3/uL [facility] Red Blood Count 4.78 4.20 - 5.50 X10*6/uL [facility] Hemoglobin 12.0 12.0 - 16.0 g/dl [facility] Hematocrit 37.7 37.0 - 47.0 % [facility] Mean Corpuscular Volume 78.9(L) 80.0 - 98.0 fL [facility] Mean Corpuscular Hemoglobin 25.1(L) 27.0 - 33.0 pg [facility] Mean Corpuscular HGB Conc 31.8 31.0 - 35.0 g/dl [facility] Red Cell Distribution Width 13.4 11.0 - 16.0 % [facility] Platelet Count 326 160 - 400 X10*3/uL [facility] Mean Platelet Volume 9.3(L) 9.4 - 12.3 fL [facility] Neutrophils Percent Auto 63.6 45 - 73 % [facility] Imm Gran Pct Auto 0.2 0.0 - 0.4 % [facility] Lymphocytes Percent Auto 29.9 20 - 40 % [facility] Monocytes Percent Auto 4.9 2 - 11 % [facility] Eosinophils Percent Auto 1.0 0 - 4 % [facility] Basophils Percent Auto 0.4 0 - 2 % [facility] NRBC Pct Auto 0.0 0.0 - 0.2 /100WBC [facility] Neutrophils Absolute Auto 5.8 2.0 - 8.3 x10*3/uL [facility] Imm Gran Abs Auto 0.02 0.00 - 0.03 X10*3/uL [facility] Lymphocytes Absolute Auto 2.7 1.2 - 4.9 X10*3/uL [facility] Monocytes Absolute Auto 0.4 0.1 - 1.2 X10*3/uL [facility] Eosinophils Absolute Auto 0.1 0.0 - 0.4 X10*3/uL [facility] Basophils Absolute Auto 0.0 0.0 - 0.2 X10*3/uL [facility] NRBC Abs Auto 0.000 0.0 - 0.012 X10*3/uL [facility] 01/26/2024 10:4 6 AM EST 01/26/2024 10:46 AM EST us Generic External Data Provider LAB BLOOD ORDERAB LES Final Result [facility] [address] [place] [address] [phone] * (ABNORMAL) Insulin (01/26/2024 10:46 AM EST) Insulin 186(H) 2 - 29 uU/mL [facility] Comment:This test was perfor med using the EvaluAgent chemiluminescentmethod. Values obtained from different assay methods [...] LES Final Result Performing Organization Address [facility] Co de Phone Number [facility] [address] [place] [phone] * (ABNORMAL) Zinc (01/26/2024 10:46 AM EST) Zinc 54(A) 60 - 130 mcg/dL [facility] Comment:This test was develo ped and its analytical performancecharacteristics have been determined by [facility] [place]. It hasnot been cleared or approved by the U.S. Food and DrugAdministration. This assay has been validated pursuantto the CLIA regulations and is used for clinicalpurposes.THIS TEST WAS PERFORMED AT:[facility] [id number] [place] [id number] MANNING MD,PHD 01/26/2024 10:4 6 AM EST 01/26/2024 10:46 AM EST Generic External Data Provider LAB BLOOD ORDERAB LES Final Result Performing Organization Address [facility] [[email or web address]] de Phone Number [facility] [address] [place] [phone] * Vitamin A (01/26/2024 10:46 AM EST) Vitamin A (Retinol) 41 38 - 98 mcg/dL [facility] Comment:Vitamin supplementat ion within 24 hours prior toblood draw may affect the accuracy of the results.This test was developed and its analytical performancecharacteristics have been determined by [facility] [place]. It hasnot been cleared or approved by the U.S. Food and DrugAdministration. This assay has been validated pursuantto the CLIA regulations and is used for clinicalpurposes.THIS TEST WAS PERFORMED AT:[id number] [place] [id number] MANNING MD,PHD 01/26/2024 10:4 6 AM EST 01/26/2024 10:46 AM EST Generic External Data Provider LAB BLOOD ORDERAB LES Final Result Performing Organization Address [facility] Co de Phone Number [facility] [address] [place] [phone] * (ABNORMAL) Vitamin B1 (01/26/2024 10:46 AM EST) Vitamin B1 <6(A) 8 - 30 nmol/L [facility] Comment:Vitamin supplementat ion within 24 hours prior toblood draw may affect the accuracy of the results.This test was developed and its analytical performancecharacteristics have been determined by [employer] [place], [place]. It hasnot been cleared or approved by the U.S. Food and DrugAdministration. This assay has been validated pursuantto the CLIA regulations and is used for clinicalpurposes.THIS TEST WAS PERFORMED AT:[id number] [place] [id number] MANNING MD,PHD 01/26/2024 10:4 6 AM EST 01/26/2024 10:46 AM EST Generic External Data Provider LAB BLOOD ORDERAB LES Final Result Performing Organization Address [facility] Co de Phone Number [facility] [address] [place] [phone] * (ABNORMAL) Hemoglobin A1c (01/26/2024 10:46 AM EST) Hemoglobin A1c 6.1(H) <6.0 % [facility] Comment:Hemoglobin A1C Refer ence Range Adults: 4.8 - 6.0 % Non diabetic: < 6.0 % Goal: < 7.0 %Additional Action Suggested: > 8.0 %Note: Hemoglobin A1c results are invalid for patients with abnormal amounts of HbF. Blood transfusions may impact the HbA1c concentration in the patient sample. Estimated Average Glucose 128 mg/dL [facility] Comment:eAG = Estimated ave rage glucose which is %A1C expressed asaverage glucose, using the formula of the [id number] Glucose study (ADAG), Diabetes Care, Vol.31,#8,Sep. 2007 01/26/2024 10:4 6 AM EST 01/26/2024 10:46 AM EST Generic External Data Provider LAB BLOOD ORDERAB LES Final Result Performing Organization Address [facility] Co de Phone Number [facility] [address] [place] [phone] * Ferritin (01/26/2024 10:46 AM EST) Ferritin 15 10 - 122 ng/mL [facility] 01/26/2024 10:4 6 AM EST 01/26/2024 10:46 AM EST Generic External Data Provider LAB BLOOD ORDERAB LES Final Result Performing Organization Address [facility] [[email or web address]] de Phone Number [facility] [address] [place] [phone] * (ABNORMAL) Lipid Panel with Reflex to Direct LDL (11/26/2023 11:30 AM EDT) Triglycerides 145 <150 mg/dL [facility] Comment:Desirable Triglyceri de: less than 150 mg/dLBorderline High Triglyceride 150-199 mg/dLHigh Triglyceride: 200-499 mg/dLVery High Triglyceride: greater than or equal to 5OO mg/dL Cholesterol 152 <200 mg/dL [facility] Comment:Desirable Cholestero l: less than 200 mg/dLBorderline High Cholesterol: 200-239 mg/dLHigh Cholesterol: greater than 239 mg/dL LDL Cholesterol Calculated 91 <100 mg/dL [facility] Comment:Desirable LDL: less than 100 mg/dLNear Optimal/Above Optimal LDL: 110- 129 mg/dLBorderline High LDL: 130-159 mg/dLHigh LDL: 160-189 mg/dLVery High LDL: greater than or equal to 190 mg/dL HDL Cholesterol 32(L) >40 mg/dL [facility] Comment:Desirable HDL: great er than 40 mg/dL Note: This HDL assay may give artificially low results in patients with liver disease. Blood 11/26/2023 11:3 0 AM EDT 11/26/2023 1:20 PM EDT Cinthya Ray MD LAB BLOOD ORDERABLES Final Resul t Performing Organization Address [facility] Co de Phone Number [facility] [address] [place] [phone] * Hepatitis C Antibody with Reflex to HCV, RNA, Quantitative, Real-Time PCR (11/26/2023 11:30 AM EDT) Hepatitis C Antibody Nonreactive Nonreactive [facility] Comment:Antibodies to HCV no t detected; does not exclude early acuteHCV infection. Blood Venous blood specimen / Unknown 11/26/2023 11:30 AM EDT 11/26/2023 1:20 PM EDT Cinthya Ray MD LAB BLOOD ORDERABLES Final Resul t Performing Organization Address [facility] Co de Phone Number [facility] [address] [place] [phone] * HIV-1/2 Antigen and Antibodies, Fourth Generation, with Reflexes (11/26/2023 11:30 AM EDT) HIV AB/AG Nonreactive Nonreactive [facility] Comment:HIV-1 p24 Ag and/or HIV-1/HIV-2 Ab not detected.A test result that is nonreactive does not exclude thepossibility of exposure to or infection with HIV-1 and/orHIV-2. Nonreactive results in this assay for individualswith prior exposure to HIV-1 and/or HIV-2 may be due toantigen and antibody levels that are below the limit ofdetection of this assay.The Socitive HIV Ag/Ab Combo assay result andsupplemental assay results should be interpreted inconjunction with the patient's clinical presentation,history and other laboratory results. If the results areinconsistent with clinical evidence, additional testing issuggested to confirm the result. Blood Venous blood specimen / Unknown 11/26/2023 11:30 AM EDT 11/26/2023 1:20 PM EDT Cinthya Ray MD LAB BLOOD ORDERABLES Final Resul t Performing Organization Address [facility] Co de Phone Number [facility] [address] [place] [address] [phone] * Albumin, Random Urine W/Creatinine (11/26/2023 12:00 AM EDT) Creatinine, Urine 238.24 mg/dL [facility] Microalbumin Urine 23.0 mg/L [facility] Microalbum Creatinine Ratio Ur 9.6 <30 ug/mg cr [facility] Comment:Albumin/Creatinine R atio Reference Ranges: Normal: < 30 ug/mg creatinine Microalbuminuria: 30 - 300 ug/mg creatinineClinical Albuminuria: > 300 ug/mg creatinine Urine 11/26/2023 11/26/2023 Cinthya Ray MD LAB URINE ORDERABLES Final Resul t Performing Organization Address [facility] Co de Phone Number [facility] [address] [place] [phone] [phone] * Diabetes Eye Exam (01/24/2023) Eye Exam Normal Normal Comment:[facility] 01/24/2023 Berta Rousseau MD HEALTH MAINTENANCE [...] has been evaluated with computer assisted technology. [facility] Commercial Shrimping Captain : SEE COMMENT [facility] Comment: MXD, CT (ASCP) CT screening location: [address] ??[phone] Interpretation/R esult: Negative for intraepithelial lesion or malignancy. [facility] LMP: NONE [facility]IV[facility] Prev. BX: NONE [facility]IV[facility] Prev. PAP: NONE [facility]IVEN [facility] SOURCE: None given [facility] Statement Of Adequacy: SEE COMMENT [facility] Comment: Satisfactory for evaluation. Endocervical/transformation zone component present. Age and/or menstrual status not provided 07/24/2021 4:01 PM EDT us Cinthya Ray MD LAB PATHOLOGY ORDERABLES Final R esult [facility] [address] from Last 3 Months or Most Recently Relevant to Health Maintenance Insurance [place] MEDICAID STAND ADULT * Guarantor: Sonali Gill Account Type Relation to Patient Date of Phone Billing Address Personal/Family [facility] [place] [address] Care Teams Ticket Clerk Relationship Specialty Start Date End Date Cinthya Ray MD [address] [place] [address] PCP - General Family Medicine 10/23/11 Mayito Acuña, PharmD [address] [place] [address] Pharmacist Internal Medicine 03/07/23
--- OUTSIDE RECORDS SUMMARY | 2024-04-16 13:47 | XMS_ITS | Encounter Summary ---
Author Organization [employer] [facility] Address [address] [place] [address] 7 [place] [address] Care Team Providers Care Mortgage Advisor Name Role Phone Cinthya Ray MD Primary Care Provider [phone] Mayito Acuña PharmD Unavailable [phone] Reason for Visit * Reason Onset Date Comments Med Refill 10/30/2023 Encounter Details Date Type Department Care Team (Late st Contact Info) Description 10/30/[address] [facility] [address] [place], [place] [phone] Cinthya Ray MD [address] [place], [place] [phone] Social History Tobacco Use Types Packs/Day Years [...] EDT Telemedicine [facility] [address] [place] [address] Mayito Acuña PharmD [address] [place] [address] 07/30/2024 3:00 PM EDT Office Visit [facility] [address] [place] [address] Demario Bocanegra documented as of this encounter [...] documented as of this encounter Care Teams Mortgage Advisor Relationship Specialty Start Date End Date Cinthya Ray MD [address] [place] [phone] PCP - General Family Medicine 10/23/11 Mayito Acuña, PharmD [address] [place] [address] Pharmacist Internal Medicine 03/07/23 documented as of this encounter
--- OUTSIDE RECORDS SUMMARY | 2024-04-16 13:47 | XMS_ITS | Encounter Summary ---
Author Organization [facility] Address [address] [place] [address] 7 [place] [address] Care Team Providers Care Plastic Surgery Assistant Name Role Phone Cinthya Ray MD Primary Care Provider [phone] Mayito Acuña PharmD Unavailable [phone] Reason for Visit * Reason Onset Date Comments Med Refill 08/06/2023 Encounter Details Date Type Department Care Team (Late st Contact Info) Description 08/06/2023 Refill [facility] [address] [place], [place] [phone] Cinthya Ray MD [address] [place], [place] [phone] Social History Tobacco Use Types Packs/Day Years [...] Telemedicine [facility] [address] [place] [address] Mayito Acuña PharmD [address] [place] [phone] 07/30/2024 3:00 PM EDT Office Visit [facility] ADULT DENTAL [address] [place] [address] Demario Bocanegra documented as of this encounter [...] documented as of this encounter Care Teams Plastic Surgery Assistant Relationship Specialty Start Date End Date Cinthya Ray MD [address] [place] [address] PCP - General Family Medicine 10/23/11 Mayito Acuña, PharmD [address] [place] [address] Pharmacist Internal Medicine 03/07/23 documented as of this encounter
--- OUTSIDE RECORDS SUMMARY | 2024-04-16 13:47 | XMS_ITS | Encounter Summary ---
Author Organization [employer] Address [address] [place] [address] 7 [place] [address] Care Team Providers Care Insole Rounder Name Role Phone Cinthya Ray MD Primary Care Provider [phone] Mayito Acuña PharmD Unavailable [phone] Reason for Visit * Reason Onset Date Comments Med Refill 10/30/2023 Encounter Details Date Type Department Care Team (Late st Contact Info) Description 10/30/2023 Refill [facility] MED & PEDS [address] [place], [place] [phone] Cinthya Ray MD [address] [place] [address] Type 2 diabetes mellitus with hyperglycemia, without long-term current use of insulin ([facility]) Social History Tobacco Use Types Packs/Day [...] 04/23/2024 3:30 PM EDT Telemedicine [facility] [address] [place] [address] Mayito Acuña, DyanD [address] [place] [address] 07/30/2024 3:00 PM EDT Office Visit [facility] ADULT DENTAL [address] [place] [address] Demario Bocanegra documented as of this encounter [...] hyperglycemia, without long-term current use of insulin ([facility]) documented in this encounter Additional Health Concerns Assessment Noted Time PHQ-9 Depression Total Score: 11 024 9:48 AM EDT documented as of this encounter Care Teams Insole Rounder Relationship Specialty Start Date End Date Cinthya Ray MD [address] [place] [address] PCP - General Family Medicine 10/23/11 Mayito Acuña, Citlali [address] [place] [address] Pharmacist Internal Medicine 03/07/23 documented as of this encounter
--- OUTSIDE RECORDS SUMMARY | 2024-04-16 13:47 | XMS_ITS | Encounter Summary ---
Author Organization [email or web address] [facility] Address [address] [place] [address] [address] [place] [address] Care Team Providers Care Maintenance Advisor Name Role Phone Cinthya Ray MD Primary Care Provider [phone] Mayito Acuña PharmD Unavailable Reason for Referral * Consultation (Routine) - Closed Specialty Diagnoses / Procedures Referred By Contcarly t Referred To Contact Orthopaedic Surgery Diagnoses Chronic left shoulder pain Cinthya Ray MD [address] [place] [phone] Phone: tel: fax: [facility] Orthopedics [address] [place] [address] Phone: tel: Referral ID Status Reason Start Date Expiration Date V isits Requested Visits Authorized [id number] Closed Specialty Services Required 02/05/2024 02/04/2025 6 6 Encounter Details Date Type Department Care Team (Late st Contact Info) Description 02/05/2024 Orders Only [facility] [address] [place] [phone] Cinthya Ray MD [address] [place], [place] [phone] Chronic left shoulder pain (Primary Dx) Social [...] EDT Telemedicine [facility] [address] [place] [address] Mayito Acuña, PharmD [address] [place] [address] 07/30/2024 3:00 PM EDT Office Visit [facility] ADULT DENTAL [address] [place] [address] Demario Bocanegra Scheduled Referrals Name Type Priority [...] documented as of this encounter Care Teams Maintenance Advisor Relationship Specialty Start Date End Date Cinthya Ray MD [address] [place] [address] PCP - General Family Medicine 10/23/11 Mayito Acuña PharmD [address] [place] [address] Pharmacist Internal Medicine 03/07/23 documented as of this encounter
--- OUTSIDE RECORDS SUMMARY | 2024-04-16 13:47 | XMS_ITS | Encounter Summary ---
Author Organization [employer] Address [address] [place] [address] [address] [place] [address] Care Team Providers Care Horticultural Specialty Grower Field Name Role Phone Cinthya Ray MD Primary Care Provider [phone] Mayito Acuña PharmD Unavailable [phone] Reason for Visit * Reason Onset Date Comments Med Refill 03/12/2024 Encounter Details Date Type Department Care Team (Late st Contact Info) Description 03/12/2024 Refill [facility] MED & PEDS [address] [place], [place] [phone] Cinthya Ray MD [address] [place] [address] Type 2 diabetes mellitus with hyperglycemia, without long-term current use of insulin ([facility]) Social History Tobacco Use Types [...] EDT Telemedicine [facility] [address] [place] [address] Mayito Acuña PharmD [address] [place] [address] 07/30/2024 3:00 PM EDT Office Visit [facility] ADULT DENTAL [address] [place] [address] Demario Bocanegra documented as of this encounter [...] current use of insulin ([facility]) documented in this encounter Additional Health Concerns Assessment Noted Time PHQ-9 Depression Total Score: 11 024 9:48 AM EDT documented as of this encounter Care Teams Horticultural Specialty Grower Field Relationship Specialty Start Date End Date Cinthya Ray MD [address] [place] [address] PCP - General Family Medicine 10/23/11 Mayito Acuña, DyanD [address] [place] [address] Pharmacist Internal Medicine 03/07/23 documented as of this encounter
--- OUTSIDE RECORDS SUMMARY | 2024-04-16 13:47 | XMS_ITS | Encounter Summary ---
Author Organization [employer] Address [address] [place] [address] 7 [place] [address] Care Team Providers Care Roll Filler Name Role Phone Cinthya Ray MD Primary Care Provider [phone] Mayito Acuña PharmD Unavailable [phone] Reason for Visit * Reason Onset Date Comments Med Refill 01/03/2023 Encounter Details Date Type Department Care Team (Late st Contact Info) Description 01/03/2023 Refill [facility] [address] [place], [place] [phone] Cinthya Ray MD [address] [place], [place] [phone] Social History Tobacco Use Types Packs/Day Years [...] 04/23/2024 3:30 PM EDT Telemedicine [facility] [address] [place] [address] Mayito Acuña, PharmD [address] [place] [address] 07/30/2024 3:00 PM EDT Office Visit [facility] ADULT DENTAL [address] [place] [address] Demario Bocanegra documented as of this encounter Visit Diagnoses Not on filedocumented in this encounter Care Teams Roll Filler Relationship Specialty Start Date End Date Cinthya Ray MD [address] [place] [address] PCP - General Family Medicine 10/23/11 Mayito Acuña, PharmD [address] [place] [address] Pharmacist Internal Medicine 03/07/23 documented as of this encounter
--- OUTSIDE RECORDS SUMMARY | 2024-04-16 13:47 | XMS_ITS | Encounter Summary ---
Author Organization [employer] Address [address] [facility] 7 [place] [address] Care Team Providers Care Face Cleaner Name Role Phone Cinthya Ray MD Primary Care Provider [phone] Mayito Acuña PharmD Unavailable [phone] Encounter Details Date Type Department Care Team (Late st Contact Info) Description 04/07/2024 Orders Only [facility] [address] [place], [place] [phone] Lexis Spann MD [address] [place], [place] [phone] Social History Tobacco Use Types Packs/Day Years [...] Info) Description 04/23/2024 3:30 PM EDT Telemedicine [facility] [address] [place] [address] Mayito Acuña PharmD [address] [place] [address] 07/30/2024 3:00 PM EDT Office Visit [facility] CH[facility] ADULT DENTAL [address] [place] [address] Demario Bocanegra documented as of this encounter [...] documented as of this encounter Care Teams Face Cleaner Relationship Specialty Start Date End Date Cinthya Ray MD [address] [place] [address] PCP - General Family Medicine 10/23/11 Mayito Acuña, Citlali [address] [place] [address] Pharmacist Internal Medicine 03/07/23 documented as of this encounter
--- OUTSIDE RECORDS SUMMARY | 2024-04-16 13:47 | XMS_ITS | Encounter Summary ---
Author Organization [employer] [facility] Address [address] [place] [address] 7 [place] [address] Care Team Providers Care Tele Grout Sewer Line Repairer Name Role Phone Cinthya Ray MD Primary Care Provider [phone] Mayito Acuña PharmD Unavailable [phone] Reason for Visit * Reason Onset Date Comments Results 12/09/2022 Encounter Details Date Type Department Care Team ([facility] st Contact Info) Description 12/09/2022 Telephone [facility] MEDICINE [address] [place], [place] [phone] Cinthya Ray MD 230 [place] [address] Results Social History Tobacco Use Types Packs/Day [...] to [place] results. Please contact pt at [phone] documented in this encounter Plan of Treatment Upcoming Encounters Date Type Department Care Team (Late st Contact Info) Description 04/23/2024 3:30 PM EDT Telemedicine [facility] MEDICINE [address] [place] [address] Mayito Acuña, Citlali [address] [place] [address] 07/30/2024 3:00 PM EDT Office Visit [facility] CHC ADULT DENTAL [address] [place] [address] Demario Bocanegra documented as of this encounter Visit Diagnoses Not on filedocumented in this encounter Care Teams Tele Grout Sewer Line Repairer Relationship Specialty Start Date End Date Cinthya Ray MD [address] [place] [address] PCP - General Family Medicine 10/23/11 Mayito Acuña, PharmD [address] [place] [phone] Pharmacist Internal Medicine 03/07/23 documented as of this encounter
--- OUTSIDE RECORDS SUMMARY | 2024-04-16 13:47 | XMS_ITS | Encounter Summary ---
Author Organization [employer] Address [address] [facility] 7t [place] [address] Care Team Providers Care Call Center Support Representative Name Role Phone Cinthya Ray MD Primary Care Provider [phone] Mayito Acuña PharmD Unavailable [phone] Encounter Details Date Type Department Care Team (Late st Contact Info) Description 04/06/2024 5:00 PM EST Office Visit [facility] WALK-IN CENTER 230 [place], [place] [phone] Lexis Spann MD [address] [place], [place] [phone] Lower urinary tract symptoms (LUTS) (Primary Dx); [...] the past 12 months, has t he [employer] [facility] [employer], gas, oil or water [employer] threatened to shut off services in your [...] 100 each 11 Blood Glucose Monitoring Suppl ([employer] [place] [employer]ite) w/Device kit TEST BLOOD SUGAR EVERY DAY Blood Pressure Monitor kit Check blood pressure once daily and as needed 1 kit 0 cholecalciferol (Vitamin D-3) 25 MCG (1000 UT) tablet Take 1 tablet (25 mcg) by mouth Once per day.90 tablet 3 Continuous Glucose Lumber Sorter Machine ([employer] Audrey 2 [place]) device SCAN sensory EVERY 8 HOURS 1 [...] Info) Description 04/23/2024 3:30 PM EDT Telemedicine [facility] MEDICINE [address] [place] [address] Mayito Acuña PharmD [address] [place] [address] 07/30/2024 3:00 PM EDT Office Visit [facility] ADULT DENTAL [address] [place] [address] Demario Bocanegra Scheduled Orders Name Type Priority [...] EST) CT PCR NOT DETECTED Not Detect. [facility] Comment:A not detected test result [...] psychologicalconsequences. NG PCR NOT DETECTED Not Detect. [facility] Comment:A not detected test result [...] PM EST 04/07/2024 11:15 AM EST Narrative [facility] - 04/07/2024 1:26 PM EST Vaginal Lexis Spann MD LAB MICROBIOLOGY - GENER AL ORDERABLES Final Result Performing Organization Address [facility]/ZIP Co de Phone Number [facility] [address] [place] [phone] * Culture, Urine, Routine (04/06/2024 12:00 AM EST) Urine Urine specimen obtained by clean catch procedure / Unknown 04/06/2024 04/06/2024 Comment:CC Narrative [facility] - 04/10/2024 7:29 AM EST [...] AL ORDERABLES Final Result Performing Organization Address [facility] Co de Phone Number [facility] [address] [place] [phone] documented in this encounter Visit Diagnoses Diagnosis Lower urinary tract symptoms (LUTS)- Primary Vaginal discharge Leukorrhea, not specified as infective documented in this encounter Additional Health Concerns Assessment Noted Time PHQ-9 Depression Total Score: 11 024 9:48 AM EDT documented as of this encounter Care Teams Call Center Support Representative Relationship Specialty Start Date End Date Cinthya Ray MD [address] [place] [address] PCP - General Family Medicine 10/23/11 Mayito Acuña, Citlali [address] [place] [address] Pharmacist Internal Medicine 03/07/23 documented as of this encounter
--- OUTSIDE RECORDS SUMMARY | 2024-04-16 13:47 | XMS_ITS | Encounter Summary ---
Author Organization [employer] Address [address] [facility] 7t [place] [address] Care Team Providers Care Tester Armature Or Fields Name Role Phone Cinthya Ray MD Primary Care Provider [phone] Mayito Acuña PharmD Unavailable [phone] Encounter Details Date Type Department Care Team ([facility] st Contact Info) Description 08/05/2023 Orders Only [facility] CHC MED & PEDS [address] [place], [place] [phone] Izzy Olvera FNP [address] [place] [address] Social History Tobacco Use Types Packs/Day Years [...] EDT Telemedicine [facility] MEDICINE [address] [place] [address] Mayito Acuña PharmD 230 [place] [address] 07/30/2024 3:00 PM EDT Office Visit [facility] CHC ADULT DENTAL [address] [place] [address] Demario Bocanegra documented as of this encounter [...] as of this encounter Care Teams Tester Armature Or Fields Relationship Specialty Start Date End Date Cinthya Ray MD [address] [place] [address] PCP - General Family Medicine 10/23/11 Mayito Acuña PharmD [address] [place] [address] Pharmacist Internal Medicine 03/07/23 documented as of this encounter
--- OUTSIDE RECORDS SUMMARY | 2024-04-16 13:48 | XMS_ITS | Encounter Summary ---
Author Organization [employer] Address [address] [place] [address] 7 [place] [address] Care Team Providers Care Painter Apprentice Name Role Phone Cinthya Ray MD Primary Care Provider [phone] Mayito Acuña PharmD Unavailable [phone] Reason for Visit * Reason Onset Date Comments Appointment Request 09/02/2022 Encounter Details Date Type Department Care Team ([facility] st Contact Info) Description 09/02/2022 Telephone [facility] MED [facility] PEDS [address] [place], [place] [phone] Cinthya Ray MD 230 [place] [address] Appointment Request Social History Tobacco Use Types [...] her kidney failure.' Please contact pt at [phone] documented in this encounter Plan of Treatment Upcoming Encounters Date Type Department Care Team (Late st Contact Info) Description 04/23/2024 3:30 PM EDT Telemedicine [facility] MEDICINE [address] [place] [address] Mayito Acuña, PharmD [address] [place] [address] 07/30/2024 3:00 PM EDT Office Visit [facility] CHC ADULT DENTAL [address] [place] [address] Demario Bocanegra documented as of this encounter Visit Diagnoses Not on filedocumented in this encounter Care Teams Painter Apprentice Relationship Specialty Start Date End Date Cinthya Ray MD [address] [place] [address] PCP - General Family Medicine 10/23/11 Mayito Acuña, PharmD [address] [place] [phone] Pharmacist Internal Medicine 03/07/23 documented as of this encounter
--- OUTSIDE RECORDS SUMMARY | 2024-04-16 13:48 | XMS_ITS | Encounter Summary ---
Author Organization [employer] Address [address] [place] [address] 7 [place] [address] Care Team Providers Care Home Comfort Advisor Name Role Phone Cinthya Ray MD Primary Care Provider [phone] Mayito Acuña PharmD Unavailable Reason for Visit * Reason Onset Date Comments Med Refill 11/02/2023 Encounter Details Date Type Department Care Team (Late st Contact Info) Description 11/02/2023 Refill [facility] CHC MED & PEDS [address] [place], [place] [phone] Cinthya Ray MD [address] [place] [address] Type 2 diabetes mellitus with hyperglycemia, without long-term current use of insulin ([facility]) Social History Tobacco Use Types Packs/Day [...] Info) Description 04/23/2024 3:30 PM EDT Telemedicine [facility] MEDICINE [address] [place] [address] Mayito Acuña, DyanD [address] [place] [address] 07/30/2024 3:00 PM EDT Office Visit [facility] CHC ADULT DENTAL [address] [place] [address] Demario Bocanegra documented as of this encounter [...] hyperglycemia, without long-term current use of insulin ([facility]) documented in this encounter Additional Health Concerns Assessment Noted Time PHQ-9 Depression Total Score: 11 024 9:48 AM EDT documented as of this encounter Care Teams Home Comfort Advisor Relationship Specialty Start Date End Date Cinthya Ray MD [address] [place] [address] PCP - General Family Medicine 10/23/11 Mayito Acuña, Citlali [address] [place] [phone] Pharmacist Internal Medicine 03/07/23 documented as of this encounter
--- OUTSIDE RECORDS SUMMARY | 2024-04-16 13:48 | XMS_ITS | Clinical Summary ---
Author Organization [facility] Address [address] [place] [address] Phone Care Team Providers Care Forensics Team Director Name Role Phone Unavailable Primary Care Provider Unavailabl e Allergies No known active allergies Encounters Date Type Department Care Team Description 02/29/2024 2:07 AM EST - 02/29/2024 3:08 AM EST Emergency [facility] Emergency [address] [place] [address] Viral syndrome (Primary Dx) Discharge [...] molecular study (02/29/2024 1:27 AM EST) Pathologist [facility] Adenovirus Detection by PCR Not Detected Not Detected LAB MICROBIOLOGY METHOD 02/29/2024 3:00 AM EST [facility] Influenza A PCR Not Detected Not Detected LAB MICROBIOLOGY METHOD 02/29/2024 3:00 AM EST [facility] Influenza B PCR Not Detected Not Detected LAB MICROBIOLOGY METHOD 02/29/2024 3:00 AM EST [facility] Coronavirus 229E Not Detected Not Detected LAB MICROBIOLOGY METHOD 02/29/2024 3:[address] [facility] Coronavirus HKU1 Not Detected Not Detected LAB MICROBIOLOGY METHOD 02/29/2024 3:[address] [facility] Coronavirus OC43 Not Detected Not Detected LAB MICROBIOLOGY METHOD 02/29/2024 3:00 AM EST [facility] Coronavirus NL63 Not Detected Not Detected LAB MICROBIOLOGY METHOD 02/29/2024 3:00 AM EST [facility] Parainfluenza Virus 1 Not Detected Not Detected LAB MICROBIOLOGY METHOD 02/29/2024 3:[address] [facility] Parainfluenza Virus 2 Not Detected Not Detected LAB MICROBIOLOGY METHOD 02/29/2024 3:[address] [facility] Parainfluenza Virus 3 Not Detected Not Detected LAB MICROBIOLOGY METHOD 02/29/2024 3:00 AM EST [facility] Parainfluenza Virus 4 Not Detected Not Detected LAB MICROBIOLOGY METHOD 02/29/2024 3:[address] [facility] RSV PCR Not Detected Not Detected LAB MICROBIOLOGY METHOD 02/29/2024 3:[address] [facility] Human Metapneumovirus A and B Not Detected Not Detected LAB MICROBIOLOGY METHOD 02/29/2024 3:[address] [facility] Rhinovirus/Entero virus Not Detected Not Detected LAB MICROBIOLOGY METHOD 02/29/2024 3:00 AM EST [facility] Bordetella pertussis Not Detected Not Detected LAB MICROBIOLOGY METHOD 02/29/2024 3:[address] [facility] Bordetella parapertussis Not Detected Not Detected LAB MICROBIOLOGY METHOD 02/29/2024 3:[address] [facility] Mycoplasma pneumo by PCR Not Detected Not Detected LAB MICROBIOLOGY METHOD 02/29/2024 3:[address] [facility] Chlamydia pneumoniae Not Detected Not Detected LAB MICROBIOLOGY METHOD 02/29/2024 3:[address] [facility] SARS COV-2 Not Detected Not Detected LAB MICROBIOLOGY METHOD 02/29/2024 3:[address] [facility] Swab Both anterior nares / Unknown Non-blood Collection / Unknown 02/29/2024 1:27 AM EST 02/29/2024 1:46 AM [facility] - 02/29/2024 3:00 AM EST Testing was performed using the [employer] Respiratory Pathogen PCR Assay. All results [...] Valero MD LAB MICROBIOLOGY - GENERAL [facility] Final Result [facility] [address] [place] [address], from Last 3 Months Insurance MEDICAID - [place]
--- OUTSIDE RECORDS SUMMARY | 2024-04-16 13:48 | XMS_ITS | Encounter Summary ---
Author Organization [employer] [facility] Address [address] [place] [address] 7 [place] [address] Care Team Providers Care Load Tallier Name Role Phone Cinthya Ray MD Primary Care Provider [phone] Mayito Acuña PharmD Unavailable [phone] Reason for Visit * Reason Onset Date Comments Med Refill 11/02/2023 Encounter Details Date Type Department Care Team (Late st Contact Info) Description 11/02/2023 Refill [facility] MEDICINE [address] [place], [place] [phone] Cinthya Ray MD [address] [place], [place] [phone] Social History Tobacco Use Types Packs/Day Years [...] but unableto make. Pt will come to [facility] today open till 8pm. Pt reports [...] Gill Sent: 11/10/2023 5:32 PM EDT To: [facility] Front Office Subject: Appointment Request Appointment Request From: Sonali Rosa With Provider: Cinthya Ray MD [[facility] MEDICINE] Preferred Date Range: 11/11/2023 - 11/13/2023 [...] Info) Description 04/23/2024 3:30 PM EDT Telemedicine [facility] MEDICINE [address] [place] [address] Mayito Acuña PharmD [address] [place] [address] 07/30/2024 3:00 PM EDT Office Visit [facility] ADULT DENTAL [address] [place] [address] Demario Bocanegra documented as of this encounter [...] documented as of this encounter Care Teams Load Tallier Relationship Specialty Start Date End Date Cinthya Ray MD [address] [place] [address] PCP - General Family Medicine 10/23/11 Mayito Acuña PharmD [address] [place] [phone] Pharmacist Internal Medicine 03/07/23 documented as of this encounter
--- OUTSIDE RECORDS SUMMARY | 2024-04-16 13:48 | XMS_ITS | Encounter Summary ---
Author Organization [facility] Address [address] [place] [address] 7 [place] [address] Care Team Providers Care College Intern Name Role Phone Cinthya Ray MD Primary Care Provider [phone] Mayito Acuña PharmD Unavailable [phone] Reason for Visit * Reason Comments Med Refill Encounter Details Date Type Department Care Team (Late st Contact Info) Description 08/31/2022 Refill [facility] MEDICINE [address] [place] [address] Starla Nuñez MD [address] [place] [address] Injury of head, initial encounter Social History [...] Info) Description 04/23/2024 3:30 PM EDT Telemedicine [facility] MEDICINE [address] [place] [address] Mayito Acuña, Citlali [address] [place] [address] 07/30/2024 3:00 PM EDT Office Visit [facility] CHC ADULT DENTAL [address] [place] [address] Demario Bocanegra documented as of this encounter Visit Diagnoses Diagnosis Injury of head, initial encounter documented in this encounter Care Teams College Intern Relationship Specialty Start Date End Date Cinthya Ray MD [address] [place] [address] PCP - General Family Medicine 10/23/11 Mayito Acuña, Citlali [address] [place] [address] Pharmacist Internal Medicine 03/07/23 documented as of this encounter
[2024-05-21 11:01] VITALS: BMI 31.5
--- NOTE | 2024-06-03 09:35 | P.CONAN_ITS ---
Documented by User: Rebecca Castorena NP 06/03/24 09:37 HPI - Anesthesia Eval Consult details Narrative: 34yo F for Shoulder Arthroscopy,distal clavicle excsion,acromioplasty,capsular release,manipulation Anesthesia Pre-Procedure Meds Is the patient on any of the following meds?: GLP1/DPP4 PMFSH Active Problems Active Problems: All Active Problems Hypotension (Acute) Hypoglycemia due to type 2 diabetes mellitus (Acute) Impingement syndrome of left shoulder (Acute) Rotator cuff insufficiency of left shoulder (Acute) Zinc deficiency (Acute) Vitamin B1 deficiency (Acute) Insulin dependent type 2 diabetes mellitus (Acute) 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 (Acute) Dysphagia (Acute) GERD (gastroesophageal reflux disease) (Acute) Post-cholecystectomy syndrome (Acute) Insomnia (Acute) PTSD (post-traumatic stress disorder) (Acute) Depression with anxiety (Acute) Vitamin D deficiency (Acute) Type 2 diabetes mellitus (Acute) Migraines (Acute) BMI 32.0-32.9,adult (Acute) Body mass index (BMI) of 38.0 to 38.9 in adult (Acute) Obesity (Acute) Past Medical History Medical History Fatty liver GERD (gastroesophageal reflux disease) Anxiety Depression Insulin dependent type 2 diabetes mellitus Migraines BMI 32.0-32.9,adult Gallstones Body mass index (BMI) of 38.0 to 38.9 in adult Obesity Family History Family History Father HTN (hypertension) Mother No problems noted. Sister Arthritis Knee problem Sister Arthritis Allergies Knee problem Brother No problems noted. Brother No problems noted. Son No problems noted. Son Autism Family/Other Breast cancer Family history of problems with anesthesia: No Surgical History Surgical History History of esophagogastroduodenoscopy (EGD) History of cholecystectomy H/O tubal ligation History of surgery on wrist Hx of section History of Problems with Anesthesia: No Social History Social History Household Members Other:: minor children Are you a primary healthcare market consultant to a significant other at home: Yes Do you presently have visiting nurse or other home services: No Alcohol intake: never Patient Tobacco Use Status: Never used Tobacco Use of substances other than those prescribed or required for medical reasons: No Have you been hit, kicked, punched, or otherwise hurt by someone within the past year? If so, by whom?: No Spiritual Healthcare Practices: no Religion Healthcare Practices: no Cultural Healthcare Practices: no Are you DNR?: No Advance Directives: No (sister is primary contact) Advance Directives Information Provided: Yes (as above noted) Advance Directives on File: No Patient : No FDLMP: 04/22/24 : No Poor oral hygiene: No Current occupation: rt handed Meds Allergies Allergy/AdvReac Type Severity Reaction Status Date / Time Seasonal Allergies Allergy Mild Runny Nose Verified 05/24/24 14:49 Active Medications: Current Medications Cefazolin Sodium/Dextrose (Ancef) 2 gm in 50 mls @ 100 mls/hr IV PREOP ONE Stop: 06/04/24 06:22 Home Medications ?Medication ?Instructions ?Recorded ?Confirmed ?Last Taken ?Type sumatriptan succinate 25 mg tablet 25 mg PO Q2-4H PRN Migraine 01/26/24 05/26/24 Unknown History Headache Exam Height,Weight and Vital Signs: Height 5 ft 2 in Weight 78.018 kg Pertinent Lab Results Pertinent Lab Results: Laboratory Tests 04/24/24 22:57 WBC 9.2 Hgb 11.5 L Hct 34.9 L Plt Count 281 Sodium 142 Potassium 3.9 Chloride 109 H Carbon Dioxide 24 BUN 17 H Creatinine 0.71 Laboratory Tests 04/30/24 09:42 Hgb A1c (Clinic) 6.5 H Narrative Narrative: EKG 04/2024 Vent. Rate : 88 BPM Atrial Rate : 88 BPM P-R Int : 130 ms QRS Dur : 88 ms QT Int : 368 ms P-R-T Axes : -16 -11 -6 degrees QTcB Int : 445 ms Normal sinus rhythm Minimal voltage criteria for LVH, may be normal variant ( R in aVL ) Borderline ECG When compared with ECG of 26-Jan-2024 10:24, Inverted T waves have replaced nonspecific T wave abnormality in Inferior leads Assessment and Plan Assessment Anesthesia Assessment: Chart Reviewed Final Anesthetic Review Family History of Problems with Anesthesia: No History of Problems with Anesthesia: No Documented by User: Maria Guadalupe Best MD 06/04/24 11:36 PMFSH Past Medical History Medical History Fatty liver GERD (gastroesophageal reflux disease) Anxiety Depression Insulin dependent type 2 diabetes mellitus Migraines BMI 32.0-32.9,adult Gallstones Body mass index (BMI) of 38.0 to 38.9 in adult Obesity Family History Family History Father HTN (hypertension) Mother No problems noted. Sister Arthritis Knee problem Sister Arthritis Allergies Knee problem Brother No problems noted. Brother No problems noted. Son No problems noted. Son Autism Family/Other Breast cancer Surgical History Surgical History History of esophagogastroduodenoscopy (EGD) History of cholecystectomy H/O tubal ligation History of surgery on wrist Hx of section Social History Social History Household Members Other:: minor children Are you a primary healthcare market consultant to a significant other at home: Yes Do you presently have visiting nurse or other home services: No Alcohol intake: never Patient Tobacco Use Status: Never used Tobacco Use of substances other than those prescribed or required for medical reasons: No Have you been hit, kicked, punched, or otherwise hurt by someone within the past year? If so, by whom?: No Spiritual Healthcare Practices: no Religion Healthcare Practices: no Cultural Healthcare Practices: no Are you DNR?: No Advance Directives: No (sister is primary contact) Advance Directives Information Provided: Yes (as above noted) Advance Directives on File: No Patient : No FDLMP: 04/22/24 : No Poor oral hygiene: No Current occupation: rt handed Meds Allergies Allergy/AdvReac Type Severity Reaction Status Date / Time Seasonal Allergies Allergy Mild Runny Nose Verified 05/24/24 14:49 Home Medications ?Medication ?Instructions ?Recorded ?Confirmed ?Last Taken ?Type sumatriptan succinate 25 mg tablet 25 mg PO Q2-4H PRN Migraine 01/26/24 05/26/24 Unknown History Headache Exam Airway Mallampati Class: II TM Dist: >3cm Neck ROM: Full Heart: rrr Lungs: ta Assessment and Plan Assessment Anesthesia Assessment: Anesthesia Plan Discussed Final Anesthetic Review NPO: Yes ASA Class: III Final Preanesthetic Review: No Changes in Pt Med Stat, Meds/Allgs Chart Reviewed, Consent Obtained/Reviewed and Anes Risks/Benef Reviewed Patient Risk: Intermediate Procedure Risk: Intermediate Anesthetic Plan Anesthetic Plan: GA, Regional Block and Agree w/ Assess. and Plan Disposition: Standard PACU
[2024-06-04] VITALS (8 sets, daily range): BP systolic 95–118; BP diastolic 59–77; PULSE 83–98; RESP 16–20; TEMP 36.1–36.4; O2SAT 94–100; BMI 31.9
[2024-06-04] MEDS: Lactated Ringers 1,000 ML 100 ML IVCONT (10:52)
[2024-06-04] MEDS: ceFAZolin Sodium/Dextrose,Iso 2 GM/50 ML PIGGYBACK IV (12:40)
[2024-06-04] MEDS: Acetaminophen 1,000 MG/100 ML PIGGYBACK 400 MG IV (12:50)
[2024-06-04] MEDS: cefTRIAXone sodium 1 GM VIAL IVPUSH (14:05)
--- NOTE | 2024-06-04 14:06 | P.BOP_ITS ---
Brief Operative Note Date of Service: 06/04/24 Pre-op diagnosis: Left shoulder impingement syndrome, left shoulder acromioclavicular joint arthritis, left shoulder adhesive capsulitis Post-op diagnosis: same Procedure: Left shoulder diagnostic arthroscopy with left shoulder arthroscopic distal clavicle excision, left shoulder arthroscopic acromioplasty, left shoulder arthroscopic anterior capsular release, left shoulder manipulation under anesthesia Implants: None Surgeon: Al Hays MD Anesthesia: GETA and regional Was an Internal Medicine Nurse Practitioner used for this Procedure?: No Estimated blood loss (mL): 10 Pathology: none sent Condition: stable Disposition: PACU
--- NOTE | 2024-06-04 14:06 | W.PM.OPN ---
Operative Note Operative Note Date of Service: 06/04/24 Narrative: After the patient was identified as Sonali Rosa and their left shoulder was initialed by myself the patient was brought to the holding area where a left shoulder interscalene regional block was performed by the anesthesiologist in routine fashion. The patient was then brought to the operating room where general anesthesia was induced by the anesthesiologist in routine fashion. The patient was given 2 g of IV Ancef preoperatively for infection prophylaxis. Examination under anesthesia of the patient's left shoulder showed decreased range of motion when compared to the right shoulder. The patient's left shoulder had forward flexion to 140 degrees compared to 170 degrees, external rotation to 40 degrees compared to 60 degrees, and internal rotation to 40 degrees compared to 50 degrees. The patient was gently positioned in the beach chair position with all bony prominences well padded. The patient's left shoulder region and upper extremity were prepped and draped in sterile fashion. A formal time-out was completed. A #11 scalpel blade was used to make a posterior portal 2 cm inferior and 1 cm medial to the posterolateral corner of the acromion. Blunt trocar technique was used to enter the glenohumeral joint in routine fashion. An anterior portal was made just lateral to the coracoid process after proper positioning was confirmed using a spinal needle. Diagnostic arthroscopy showed minimal degenerative changes of the glenoid and humeral head articular surfaces. There was no evidence of rotator cuff tearing. There was no evidence of injury to the biceps tendon or its insertion onto the glenoid. There was inflammation of the anterior joint capsule consistent with adhesive capsulitis. The ArthroCare Wand was then used to perform an anterior capsular release between the inferior border of the biceps tendon and the superior border of the subscapularis tendon. The arthroscope was then placed from the posterior portal into the subacromial space. A lateral portal was made 2 fingerbreadths lateral to the anterior lateral corner of the acromion. The ArthroCare Wand was used to ablate soft tissues along the undersurface of the acromion as well as to excise the coracoacromial ligament. There was a sharp spur along the undersurface of the acromion which was removed using the hooded bur. The arthroscope was then placed into the lateral portal and the acromioplasty was completed with the bur in the posterior portal using the posterior aspect of the acromion as a cutting block. The ArthroCare Wand was then brought in through the anterior portal and was used to ablate soft tissues along the acromioclavicular joint and distal clavicle. The posterior and superior ligamentous structures were left intact. A distal clavicle excision of 8 mm was performed using the hooded bur. Any remaining bursal tissue was removed using the arthroscopic shaver. The subacromial space was irrigated and then drained. All arthroscopic instruments were removed. A gentle manipulation under anesthesia was then performed. Full passive range of motion was easily attained. The 3 portals were closed with 3-0 nylon interrupted suture. The subacromial space was injected with Marcaine. Dry sterile dressing was placed over all incisions. The patient's left upper extremity was placed into a sling. The patient was awoken and extubated in the operating room. The patient was transferred to the recovery room in stable condition.
[2024-06-04] MEDS: ondansetron HCL 4 MG/2 ML VIAL IVPUSH (14:15)
== END 2024-06-04 15:12 | disposition home or self-care (01) ==
PROVIDERS: PCP Family Medicine; Visit Provider Orthopaedic Surgery
PROC: (CPT 29805; principal; 2024-06-04 11:30)
DX: M75.42 Impingement syndrome of left shoulder (principal); M75.02 Adhesive capsulitis of left shoulder; M19.012 Primary osteoarthritis, left shoulder; M25.512 Pain in left shoulder; M25.612 Stiffness of left shoulder, not elsewhere classified; E11.9 Type 2 diabetes mellitus without complications; E66.9 Obesity, unspecified; Z68.31 Body mass index [BMI] 31.0-31.9, adult; J30.2 Other seasonal allergic rhinitis; G47.33 Obstructive sleep apnea (adult) (pediatric); G43.909 Migraine, unspecified, not intractable, without status migrainosus; Z79.4 Long term (current) use of insulin; Z79.84 Long term (current) use of oral hypoglycemic drugs; Z79.85 Long-term (current) use of injectable non-insulin antidiabetic drugs; Z79.899 Other long term (current) drug therapy; Z98.890 Other specified postprocedural states
CPT/HCPCS: 29824; 29825; 29826; J0131; J0171; J0665; J0690; J0696; J1100; J2003; J2250; J2371; J2405; J2704; J2795; J3010

== ENCOUNTER → 2024-06-04 09:29 | Outpatient (BNV) | payer MEDICAID, SELFPAY | PROVIDERS: PCP Family Medicine; Visit Provider Orthopaedic Surgery | DX: M75.42 Impingement syndrome of left shoulder (principal); M19.012 Primary osteoarthritis, left shoulder; M75.02 Adhesive capsulitis of left shoulder | CPT/HCPCS: 29824; 29826 ==

== ENCOUNTER 2024-06-18 08:31 | Outpatient (AMB) | payer MEDICAID, SELFPAY ==
--- NOTE | 2024-06-18 08:35 | MHC.OFFVIS ---
Vital Signs 06/18/24 08:37 Height 5 ft 2 in Weight 174 lb BMI 31.8 Intake Visit Reasons: PO LT Shoulder 06/04/24 DR Intake Note: Sonali is a 34 year old right hand dominant female who presents today post-operatively after undergoing a left shoulder arthoscopy on 06/04/[address] Hays. Patient reports she is doing well. She is taking Tylenol PRN with relief of pain. Patient has discontinued taking Oxycodone. Allergies Seasonal Allergies Allergy (Mild, Verified 06/18/24 08:36) Runny Nose HPI HPI PO LT Shoulder 06/04/24 DR: Details: 34-year-old female returns to the office today status post left shoulder arthroscopy with Dr. Hays on 06/04/2024. She states she is doing well. She is able to perform activities without significant limitations. [facility] Medical History Fatty liver GERD (gastroesophageal reflux disease) Anxiety Depression Insulin dependent type 2 diabetes mellitus Migraines BMI 32.0-32.9,adult Gallstones Body mass index (BMI) of 38.0 to 38.9 in adult Obesity Surgical History History of esophagogastroduodenoscopy (EGD) History of cholecystectomy H/O tubal ligation History of surgery on wrist Hx of section Family History Father HTN (hypertension) Mother No problems noted. Sister Arthritis Knee problem Sister Arthritis Allergies Knee problem Brother No problems noted. Brother No problems noted. Son No problems noted. Son Autism Family/Other Breast cancer Social History Household Members Other:: minor children Are you a primary pediatric care coordinator to a significant other at home: Yes Do you presently have visiting nurse or other home services: No Alcohol intake: never Comment: counts correct Patient Tobacco Use Status: Never used Tobacco Current occupation: rt handed Review of Systems Const All systems reviewed & are unremarkable except as noted in HPI and below Physical Exam Vital Signs: BMI result Body Mass Index 31.8 Extrem Other: Left shoulder incision clean dry and intact. No erythema or drainage. She has good range of motion. Neurovascularly intact. Results Reviewed Results Reviewed: Date of Service: 06/04/24 Pre-op diagnosis: Left shoulder impingement syndrome, left shoulder acromioclavicular joint arthritis, left shoulder adhesive capsulitis Post-op diagnosis: same Procedure: Left shoulder diagnostic arthroscopy with left shoulder arthroscopic distal clavicle excision, left shoulder arthroscopic acromioplasty, left shoulder arthroscopic anterior capsular release, left shoulder manipulation under anesthesia Implants: None Surgeon: Al Hays MD Assessment & Plan Assessment & Plan (1) Impingement syndrome of left shoulder: Code(s): M75.42 - Impingement syndrome of left shoulder Category: Medical Plan: Sutures removed today Steri-Strips applied. I educated her about limiting repetitive motion in lifting overhead for the next 4-6 weeks. I did offer a course of physical therapy to work on rotator cuff and periscapular stabilization which she declined at this time. She states she will work on exercises at home. She will see us back in [address] Hays, sooner if needed. Coding Level of Care Code Global (38141) Diagnoses Impingement syndrome of left shoulder M75.42
[2024-06-18 08:37] VITALS: BMI 31.8
--- OUTSIDE RECORDS SUMMARY | 2024-06-18 08:45 | XMS_ITS | Encounter Summary ---
Author Organization [employer] Address [address] [facility] 7t [place] [address] Care Team Providers Care Manager Surgical Name Role Phone Cinthya Ray MD Primary Care Provider [phone] Mayito Acuña PharmD Unavailable [phone] Encounter Details Date Type Department Care Team ([facility] Contact Info) Description 06/13/2022 Orders Only [facility] [address] [place], [place] [phone] Jerrica Girard FNP Social History Tobacco Use [...] Upcoming Encounters Date Type Department Care Team ([facility] Contact Info) Description 07/30/2024 3:00 PM EDT Office Visit [facility] [address] [place], [place] [phone] Demario Bocanegra documented as of this encounter Visit Diagnoses Not on filedocumented in this encounter Care Teams Manager Surgical Relationship Specialty Start Date End Date Cinthya Ray MD [address] [place] [address] PCP - General Family Medicine 10/23/11 Mayito Acuña, Citlali [address] [place] [address] Pharmacist Internal Medicine 03/07/23 04/22/24 documented as of this encounter
--- OUTSIDE RECORDS SUMMARY | 2024-06-18 08:45 | XMS_ITS | Encounter Summary ---
Author Organization mention [facility] Address [address] [place] [address] Care Team Providers Care Ironworker Foreman Name Role Phone Cinthya Ray MD Primary Care Provider [phone] Mayito Acuña PharmD Unavailable [phone] Encounter Details Date Type Department Care Team ([facility] Contact Info) Description 02/26/2022 Abstract [facility] [address] [place] [address] Cinthya Ray MD [address] [place] [address] Social History Tobacco Use Types Packs/Day Years [...] Description 07/30/2024 3:00 PM EDT Office Visit [facility] ADULT DENTAL [address] [place] [address] Demario Bocanegra documented as of this encounter Visit Diagnoses Not on filedocumented in this encounter Care Teams Ironworker Foreman Relationship Specialty Start Date End Date Cinthya Ray MD [address] [place] [address] PCP - General Family Medicine 10/23/11 Mayito Acuña, DyanD [address] [place] [address] Pharmacist Internal Medicine 03/07/23 04/22/24 documented as of this encounter
--- OUTSIDE RECORDS SUMMARY | 2024-06-18 08:45 | XMS_ITS | Encounter Summary ---
Author Organization [employer] Address [address] [facility] 7 [place] [address] Care Team Providers Care Platen Press Operator Apprentice Name Role Phone Cinthya Ray MD Primary Care Provider [phone] Mayito Acuña PharmD Unavailable [phone] Encounter Details Date Type Department Care Team (Late st Contact Info) Description 01/31/2024 Orders Only [facility] [address] [place], [place] [phone] Cinthya Ray MD [address] [place], [place] [phone] Vitamin D deficiency (Primary Dx) Social History [...] 3:00 PM EDT Office Visit [facility] ADULT [facility] [address] [place] [address] Demario Bocanegra documented as of this encounter Goals Goal Patient Goal Type Associated Problems Recent Progress Patient-Stated? Author Blood Pressure < 140/90 Blood Pressure 118/83(2024 11:45 AM EDT) No Mayito Acuña PharmD Hemoglobin A1c < 7 Result Component 6.5( 3:35 PM EDT) No Mayito Acuña PharmD documented as of this encounter Visit Diagnoses Diagnosis Vitamin D deficiency- Primary documented in this encounter Additional Health Concerns Assessment Noted Time PHQ-9 Depression Total Score: 11 024 9:48 AM EDT documented as of this encounter Care Teams Platen Press Operator Apprentice Relationship Specialty Start Date End Date Cinthya Ray MD [address] [place] [address] PCP - General Family Medicine 10/23/11 Mayito Acuña PharmD [address] [place] [address] Pharmacist Internal Medicine 03/07/23 04/22/24 documented as of this encounter
--- OUTSIDE RECORDS SUMMARY | 2024-06-18 08:45 | XMS_ITS | Encounter Summary ---
Author Organization [employer] Address [address] [place] [address] Care Team Providers Care Intake Clinician Name Role Phone Cinthya Ray MD Primary Care Provider [phone] Mayito Acuña PharmD Unavailable [phone] Reason for Referral * Consultation (Routine) - Closed Specialty Diagnoses / Procedures Referred By Ramya waller Referred To Contact Orthopaedic Surgery Diagnoses Chronic left shoulder pain Cinthya Ray MD [address] [place] [address] Phone: tel: fax: [facility] [address] [place] [address] Phone: tel: Referral ID Status Reason Start Date Expiration Date V isits Requested Visits Authorized [id number] Closed Specialty Services Required 02/05/2024 02/04/2025 6 6 Encounter Details Date Type Department Care Team (Late st Contact Info) Description 02/05/2024 Orders Only [facility] MED[facility] [address] [place] [phone] Cinthya Ray MD [address] [place], [place] [phone] Chronic left shoulder pain (Primary Dx) Social [...] [facility] ADULT DENTAL [address] [place] [address] Demario Bocanegra Scheduled Referrals Name Type Priority [...] documented as of this encounter Care Teams Intake Clinician Relationship Specialty Start Date End Date Cinthya Ray MD [address] [place] [address] PCP - General Family Medicine 10/23/11 Mayito Acuña PharmD [address] [place] [address] Pharmacist Internal Medicine 03/07/23 04/22/24 documented as of this encounter
--- OUTSIDE RECORDS SUMMARY | 2024-06-18 08:45 | XMS_ITS | Encounter Summary ---
Author Organization [employer] Address [address] [place] [address] Care Team Providers Care Conveyor Belt Repairer Name Role Phone Cinthya Ray MD Primary Care Provider [phone] Mayito Acuña PharmD Unavailable [phone] Reason for Visit * Reason Onset Date Comments Medication Question 06/14/2022 Encounter Details Date Type Department Care Team ([facility] st Contact Info) Description 06/14/2022 Telephone [facility] MED[facility] [address] [place], [place] [phone] Cinthya Ray MD [address] [place] [address] Medication Question Social History Tobacco Use Types [...] [facility] ADULT DENTAL [address] [place] [address] Demario Bocanegra documented as of this encounter Visit Diagnoses Not on filedocumented in this encounter Care Teams Conveyor Belt Repairer Relationship Specialty Start Date End Date Cinthya Ray MD [address] [place] [address] PCP - General Family Medicine 10/23/11 Mayito Acuña, Citlali [address] [place] [address] Pharmacist Internal Medicine 03/07/23 04/22/24 documented as of this encounter
--- OUTSIDE RECORDS SUMMARY | 2024-06-18 08:45 | XMS_ITS | Encounter Summary ---
Author Organization [employer] Address [address] [facility] 7 [place] [address] Care Team Providers Care Aerospace Products Sales Engineer Name Role Phone Cinthya Ray MD Primary Care Provider [phone] Mayito Acuña PharmD Unavailable [phone] Encounter Details Date Type Department Care Team (Late st Contact Info) Description 03/05/2023 Orders Only [facility] MED[facility] [address] [place], [place] [phone] Cinthya Ray MD [address] [place], [place] [phone] Social History Tobacco Use Types Packs/Day Years Used Date Smoking Tobacco: Never Passive Smoke Exposure: Never Smokeless Tobacco: Never Alcohol Use Standard Drinks/Week Comments Never 0 (1 standard drink = 0.6 oz pur e alcohol) PHQ-2 Answer Date Recorded Patient Health Questionnaire-2 Score 4 04/04/2022 Housing Stability Answer Date Recorded What is your housing situation today? I have trevgricelda villalba 12/03/[address] you [...] Description 07/30/2024 3:00 PM EDT Office Visit [facility] ADULT DENTAL [address] [place] [address] Demario Bocanegra documented as of this encounter Goals Goal Patient Goal Type Associated Problems Recent Progress Patient-Stated? Author Blood Pressure < 140/90 Blood Pressure 118/83(2024 11:45 AM EDT) No Mayito Acuña, PharmDao Hemoglobin A1c < 7 Result Component 6.5( 3:35 PM EDT) No Mayito Acuña PharmD documented as of this encounter Visit Diagnoses Not on filedocumented in this encounter Care Teams Aerospace Products Sales Engineer Relationship Specialty Start Date End Date Cinthya Ray MD [address] [place] [address] PCP - General Family Medicine 10/23/11 Mayito Acuña PharmD [address] [place] [address] Pharmacist Internal Medicine 03/07/23 04/22/24 documented as of this encounter
--- OUTSIDE RECORDS SUMMARY | 2024-06-18 08:45 | XMS_ITS | Encounter Summary ---
Author Organization [email or web address] Address [address] [facility] 7t [place] [address] Care Team Providers Care Supply Chain Associate Name Role Phone Cinthya Ray MD Primary Care Provider [phone] Mayito Acuña PharmD Unavailable [phone] Encounter Details Date Type Department Care Team (Late st Contact Info) Description 08/05/2023 Orders Only [facility] MED & PEDS [address] [place] [address] Izzy Olvera FNP [address] [place] [address] Social History Tobacco Use Types Packs/Day Years [...] [facility] ADULT D[facility] [address] [place] [address] Demario Bocanegra documented as of this encounter [...] documented as of this encounter Care Teams Supply Chain Associate Relationship Specialty Start Date End Date Cinthya Ray MD [address] [place] [address] PCP - General Family Medicine 10/23/11 Mayito Acuña PharmD [address] [place] [address] Pharmacist Internal Medicine 03/07/23 04/22/24 documented as of this encounter
--- OUTSIDE RECORDS SUMMARY | 2024-06-18 08:45 | XMS_ITS | Encounter Summary ---
Author Organization [employer] Address [address] [facility] 7 [place] [address] Care Team Providers Care Chicken Sexer Name Role Phone Cinthya Ray MD Primary Care Provider [phone] Mayito Acuña PharmD Unavailable [phone] Encounter Details Date Type Department Care Team (Late st Contact Info) Description 03/05/2024 Orders Only [facility] MEDICINE [address] [place], [place] [phone] Cinthya Ray MD [address] [place], [place] [phone] Type 2 diabetes mellitus with other specified complication, with long-term current use of insulin ([facility]) (Primary Dx) Social History [...] the past 12 months, has t he Community [employer], gas, oil or water company threatened to [...] [facility] ADULT DENTAL [address] [place] [address] eDmario Bocanegra documented as of this encounter Goals Goal Patient Goal Type Associated Problems Recent Progress Patient-Stated? Author Blood Pressure < 140/90 Blood Pressure 118/83(2024 11:45 AM EDT) No Mayito Acuña, PharmD Hemoglobin A1c < 7 Result Component 6.5( 3:35 PM EDT) No Mayito Acuña, PharmD documented as of this encounter Visit Diagnoses Diagnosis Type 2 diabetes mellitus with other specified complication, with long-term current use of insulin ([facility])- Primary documented in this encounter Additional Health Concerns Assessment Noted Time PHQ-9 Depression Total Score: 11 024 9:48 AM EDT documented as of this encounter Care Teams Chicken Sexer Relationship Specialty Start Date End Date Cinthya Ray MD [address] [place] [address] PCP - General Family Medicine 10/23/11 Mayito Acuña, PharmD [address] [place] [address] Pharmacist Internal Medicine 03/07/23 04/22/24 documented as of this encounter
--- OUTSIDE RECORDS SUMMARY | 2024-06-18 08:45 | XMS_ITS | Encounter Summary ---
Author Organization [employer] Address [address] [place] [address] Care Team Providers Care Salvage Clerk Name Role Phone Cinthya Ray MD Primary Care Provider [phone] Mayito Acuña PharmD Unavailable [phone] Reason for Visit * Reason Onset Date Comments callback request 12/30/2023 Encounter Details Date Type Department Care Team ([facility] st Contact Info) Description 12/30/2023 Telephone [facility] MEDICINE [address] [place], [place] [phone] Cinthya Ray MD [address] [place] [address] callback request Social History Tobacco Use Types [...] EST Tc from pt returning call from [facility] to book an appointment for follow up Callback [phone] documented in this encounter Plan of Treatment Upcoming Encounters Date Type Department Care Team (Late st Contact Info) Description 07/30/2024 3:00 PM EDT Office Visit [facility] ADULT DENTAL [address] [place] [address] Demario Bocanegra documented as of this encounter Goals Goal Patient Goal Type Associated Problems Recent Progress Patient-Stated? Author Blood Pressure < 140/90 Blood Pressure 118/83(2024 11:45 AM EDT) No Mayito Acuña, Citlali Hemoglobin A1c < 7 Result Component 6.5( 3:35 PM EDT) No Mayito Acuña PharmD documented as of this encounter Visit Diagnoses Not on filedocumented in this encounter Additional Health Concerns Assessment Noted Time PHQ-9 Depression Total Score: 11 024 9:48 AM EDT documented as of this encounter Care Teams Salvage Clerk Relationship Specialty Start Date End Date Cinthya Ray MD [address] [place] [address] PCP - General Family Medicine 10/23/11 Mayito Acuña, DyanD [address] [place] [address] Pharmacist Internal Medicine 03/07/23 04/22/24 documented as of this encounter
--- OUTSIDE RECORDS SUMMARY | 2024-06-18 08:45 | XMS_ITS | Encounter Summary ---
Author Organization [email or web address] [facility] Address [address] [place] [address] Care Team Providers Care Frozen Foods Manager Name Role Phone Cinthya Ray MD Primary Care Provider [phone] Mayito Acuña PharmD Unavailable [phone] Reason for Visit * Reason Onset Date Comments triage 04/10/2022 Encounter Details Date Type Department Care Team ([facility] st Contact Info) Description 04/10/2022 Telephone [facility] [address] [place], [place] [phone] Cinthya Ray MD [address] [place], [place] [phone] triage Social History Tobacco Use Types Packs/Day [...] [facility] [address] [place] [address] Demario Bocanegra documented as of this encounter Visit Diagnoses Not on filedocumented in this encounter Care Teams Frozen Foods Manager Relationship Specialty Start Date End Date Cinthya Ray MD [address] [place] [address] PCP - General Family Medicine 10/23/11 Mayito Acuña, DyanD [address] [place] [address] Pharmacist Internal Medicine 03/07/23 04/22/24 documented as of this encounter
--- OUTSIDE RECORDS SUMMARY | 2024-06-18 08:45 | XMS_ITS | Clinical Summary ---
Author Organization [employer] Address [address] [facility] [address] [address] Care Team Providers Care Rod Puller And Coiler Name Role Phone Cinthya Ray MD Primary Care Provider Allergies No known active allergies Medications * This document contains information received from the source organization and may not represent a complete record from that organization. Alcohol Swabs (Alcohol Prep) 70 % padsIndications:T ype 2 diabetes mellitus with hyperglycemia (CMS/[facility]) USE FOUR TIMES DAILY AND NEEDED 100 each 11 01/08/20 23 Active TRUEplus Lancets 33G miscIndications:T ype 2 diabetes mellitus with hyperglycemia ([facility]) TEST BLOOD SUGAR FOUR TIMES [...] rinse. 112 g 1 08/15/19 24 Active ibuprofen 600 MG tablet TAKE 1 TABLET BY MOUTH IN THE MORNING, AT NOON AND AT BEDTIME IF NEEDED FOR MILD PAIN 90 tablet 09/22/19 24 Active SUMAtriptan (Imitrex) 25 MG tabletIndications :Injury of head, initial encounter TAKE 1 TAB ORALLY AFTER MIGRAINE ONSET MAY REPEAT AFTER 2HRS IF HEADACHE RETURNS,MAX 200MG IN 24HRS 9 tablet 11/19/19 24 Active Glucose 2 g chewable tabletIndications [...] A WEEK DIRECTED 2 mL 5 02/16/19 25 Active metFORMIN XR (Glucophage-XR) 500 MG 24 hr tablet TAKE 2 TABLETS BY MOUTH TWICE DAILY WITH BREAKFAST AND WITH DINNER. DO NOT BREAK, CRUSH, 360 tablet 1 03/23/19 25 Active Continuous Glucose Customer Energy Specialist (FreeStyle Audrey 3 [place]) deviceIndications :Type 2 diabetes mellitus with hyperglycemia, with long-term current use of insulin (CMS/HCC) 1 each Once per day. Use as directed for CGM 1 each 04/24/19 25 Active Continuous Glucose Sensor (FreeStyle Audrey 3 Plus Sensor) miscIndications:T ype 2 diabetes mellitus with hyperglycemia, with long-term current use of insulin (CMS/HCC) 1 each every 15 days. Apply 1 every 15 days as directed for CGM 2 each 04/24/19 25 Active insulin degludec (Tresiba FlexTouch) 100 UNIT/ML injectionIndicati ons:Type 2 diabetes mellitus with hyperglycemia, without long-term current use of insulin (CMS/HCC) INJECT 35 UNITS SUBCUTANEOUSLY ONCE EVERY DAY, may increase by 2 units every 72 hours for fasting blood sugar above 130. MAX DAILY DOSE 45 UNITS PER DAY PATIENT CAN INJECT. 45 mL 3 03/18/20 25 Active insulin pen needle (BD Pen Needle Rowena 2nd Gen) 32G x 4 mm misc USE WITH INSULIN ONCE A DAY 100 each 11 04/28/19 25 Active ondansetron (Zofran) 4 MG tablet Take 1 tablet (4 mg) by mouth every 8 (eight) hours if needed for nausea or vomiting. 30 tablet 05/05/19 25 Active Continuous Glucose Sensor (FreeStyle Audrey 2 Sensor) misc Scan at least every 8 hours. Change sensor every 14 days. 2 each 1 05/26/19 25 Active fluconazole (Diflucan) 150 MG tablet Take 1 tablet (150 mg) by mouth 1 (one) time for 1 dose. 1 tablet 06/08/19 25 025 terconazole (Terazol 7) 0.4 % vaginal cream Insert 1 applicator into the vagina at bedtime for 7 days. 45 g 06/10/19 025 Active Problems Problem Noted Date Diagnosed [...] (05/04/2024 4:55 AM EDT): - following with [facility] - Dx impingement syndrome - completed [...] both her parents. She had services with [facility] for psychiatry and individual therapy, but lost [...] Plan (11/30/2023 1:26 PM EDT): -Following with [facility] GI, last seen on -06/30/23 EGD Sen esophagus with mild chronic active inflammation, stomach mild chronic inactive inflammation, normal duodenum. -Repeat EGD in 2 years -Continue pantoprazole Assessment & Plan (09/09/2023 6:00 AM EDT): -Following with [facility], last seen on -06/30/23 EGD Sen [...] considering a bariatric surgery and went to [facility] wt management clinic. She restarted going to [facility] Wt management clinic. - She had worked with our diabetes education nurse, Ene Arias from Nov to Dec 2021. - Graduated from [employer]. - Eye exam: 01/28/24. [facility]. Nonregenerative diabetic retinopathy, bilateral, mild. [...] considering a bariatric surgery and went to [facility] wt management clinic. She restarted going to [facility] management clinic. - She had worked with our diabetes education nurse, Ene Arias from Nov to Dec 2021. - Currently showing good attendance to [facility]; appreciated her effort - Eye exam: 01/24/23 [facility]. No diabetic retinopathy - Comprehensive [...] considering a bariatric surgery and went to [facility] management clinic - She had worked with our diabetes education nurse, Ene Arias from Nov to Dec 2021. - Currently showing good attendance to [facility]; appreciated her effort - Eye exam: 01/24/23 [facility]. No diabetic retinopathy - Comprehensive [...] considering a bariatric surgery and went to [facility] wt management clinic - She had worked with our diabetes education nurse, Ene Arias from Nov to Dec 2021. - Currently showing good attendance to [employer]; appreciated her effort - Eye exam: 01/24/23 [facility]. No diabetic retinopathy - Comprehensive [...] considering a bariatric surgery and went to [facility] wt management clinic - She had worked with our diabetes education nurse, Ene Arias from Nov to Dec 2021. - Currently showing good attendance to [facility]; appreciated her effort - Eye exam: 01/24/23 [facility]. No diabetic retinopathy - Comprehensive [...] considering a bariatric surgery and went to [facility] wt management clinic - She had worked with our diabetes education nurse, Ene Arias from Nov to Dec 2021. - Currently showing good attendance to [facility]; appreciated her effort - Eye exam: 01/24/23 [facility]. No diabetic retinopathy - Comprehensive [...] considering a bariatric surgery and went to [facility] wt management clinic - She had worked with our diabetes education nurse, Ene Arias from Nov to Dec 2021. - Refer to [facility] - Eye exam: 01/24/23 [facility]. No diabetic retinopathy - Comprehensive [...] considering a bariatric surgery and went to [facility] wt management clinic - She had worked with our diabetes education nurse, Ene Arias from Nov to Dec 2021. - Eye exam: 01/21/22 [facility]. No diabetic retinopathy - Comprehensive [...] considering a bariatric surgery and went to [facility] wt management clinic - She had worked with our diabetes education nurse, Ene Arias from Nov to Dec 2021. - Eye exam: 01/21/22 [facility]. No diabetic retinopathy - Comprehensive [...] considering a bariatric surgery and went to [facility] wt management clinic - She had worked with our diabetes education nurse, Ene Arias from Nov to Dec 2021. - Eye exam: 01/21/22 [facility]. No diabetic retinopathy - Comprehensive [...] considering a bariatric surgery and went to [facility] wt management clinic - She had worked with our diabetes education nurse, Ene Arias from Nov to Dec 2021. - Eye exam: 01/21/22 [facility]. No diabetic retinopathy - Comprehensive [...] considering a bariatric surgery and went to [facility] wt management clinic - She had worked with our diabetes education nurse, Ene Arias from Nov to Dec 2021. - Eye exam: 01/21/22 [facility]. No diabetic retinopathy - Comprehensive [...] considering a bariatric surgery and went to [facility] wt management clinic - She had worked with our diabetes education nurse, Ene Arias from Nov to Dec 2021. - Eye exam: 01/21/22 [facility]. No diabetic retinopathy - Comprehensive [...] - completed Partial Hospitalization Program at [facility] 11/09/21 - 11/23/21 - current medication: none -Previous medication treatment Hx: venlafaxine was self-discontinued; trazodone was prescribed by psychiatrist while she was attending [facility], but pt self-discontinued due to ineffectivenss; sertraline 50 mg daily, patient self-discontinued. - previously seeing [facility] clinician and waiting for psychiatrist, patient has not been engaged in behavioral health therapy currently. - contacted by [facility] and was referred to off-site service - patient has developed healthy coping skills Assessment & Plan (11/30/2023 1:22 PM EDT): - MDD vs. bipolar - severe exacerbation of Depression w/ SI in October 2021. - completed Partial Hospitalization Program at [facility] 11/09/21 - 11/23/21 - current medication: none -Previous medication treatment Hx: venlafaxine was self-discontinued; trazodone was prescribed by psychiatrist while she was attending [facility], but pt self-discontinued due to ineffectivenss; sertraline 50 mg daily, patient self-discontinued. - previously seeing [facility] clinician and waiting for psychiatrist, patient has not been engaged in behavioral health therapy currently. - contacted [facility] and was referred to off-site service - patient has developed healthy coping skills Assessment & Plan (03/07/2023 5:55 AM EST): - MDD vs. bipolar - severe exacerbation of Depression w/ SI in October 2021. - completed Partial Hospitalization Program at [facility] 11/09/21 - 11/23/21 - current medication: none -Previous medication treatment Hx: venlafaxine was self-discontinued; trazodone was prescribed by psychiatrist while she was attending [facility], but pt self-discontinued due to ineffectivenss; sertraline 50 mg daily, patient self-discontinued. - previously seeing [facility] clinician and waiting for psychiatrist, patient has not been engaged in behavioral health therapy currently. - will consider referring back Assessment & Plan (11/12/2022 4:17 PM EDT): - severe exacerbation of Depression w/ SI in October 2021. - completed Partial Hospitalization Program at [facility] 11/09/21 - 11/23/21 - Medication: Sertraline 50 mg daily -Previous medication treatment Hx: venlafaxine was self-discontinued; trazodone was prescribed by psychiatrist while she was attending [facility], but pt self-discontinued due to ineffectivenss - still on waiting list for outpatient appt with psychiatrist and therapist. - Able to contract her safety today - Continue BHS with [facility] Assessment & Plan (08/30/2022 12:43 PM EDT): - severe exacerbation of Depression w/ SI in October 2021. - completed Partial Hospitalization Program at [facility] 11/09/21 - 11/23/21 - Medication: [...] - completed Partial Hospitalization Program at [facility] 11/09/21 - 11/23/21 - Medication [...] - completed Partial Hospitalization Program at [facility] 11/09/21 - 11/23/21 - Medication [...] - completed Partial Hospitalization Program at [facility] 11/09/21 - 11/23/21 - Medication [...] - completed Partial Hospitalization Program at [facility] 11/09/21 - 11/23/21 - Medication treatment Hx --venlafaxine was self-discontinued --trazodone was prescribed by psychiatrist while she was attending [facility], but pt self-discontinued due to [...] - previously participated weight management program at [facility], recently started seeing them again. - goal of wieght being 171 lbs to get surgery done. - continue working on lifestyle modifications - associated comorbidity: STELAL, diabetes mellitus type 2 - continue GLP1RA - patient is restricting food intake and discussed about its harmful effect. She is on GLP1RA and is having side effects. Will try to consult with both mounter and surgical weight loss provider. Surgical weight loss is not indicated and patient still may need to take medications. Assessment & Plan (01/27/2024 3:27 PM EST): - previously participated weight management program at [facility], recently started seeing them again. - goal of wieght being 171 lbs to get surgery done. - continue working on lifestyle modifications - associated comorbidity: STELLA, DM2 Assessment & Plan (11/26/2023 2:16 PM EDT): - previously participated weight management program at [facility] - continue working on lifestyle modifications - associated comorbidity: STELLA, DM2 Assessment & Plan (11/18/2022 7:07 AM EDT): - previously participated weight management program at [facility] - continue working on lifestyle modifications - associated comorbidity: STELLA, DM2 Assessment & Plan (04/04/2022 7:14 PM EST): - previously participated weight management program at [facility] - continue working on lifestyle modifications - associated comorbidity: STELLA, DM2 Assessment & Plan (02/22/2022 4:37 PM EST): - previously participated weight management program at [facility] - continue working on lifestyle modifications - [...] Encounters Date Type Department Care Team Description 06/18/2024 Refill [facility] [address] [facility] [place] [address] Cinthya Ray MD Injury of head, initial encounter 06/18/2024 Refill [facility] [address] [facility] [place] [address] Cinthya Ray MD Type 2 diabetes mellitus with hyperglycemia (CMS/HCC); Injury of head, initial encounter 06/09/2024 Orders Only [facility] [place] [address] Abigail Darling CNM 06/08/[address] [address] Cinhtya Ray MD Nurse Triage 06/07/2024 2:00 PM EDT Office Visit [address] [address] Abigail Darling CNM Vaginal discharge (Primary Dx) 06/07/2024 Travel 06/07/[address] [address] Cinthya Ray MD Nurse Triage 05/24/2024 Refill [facility] [place] [address] Cinthya Ray MD 05/24/2024 Orders Only GENERIC EXTERNAL DATA DEPARTMENT Provider, Generic External Data 05/07/2024 Orders Only GENERIC EXTERNAL DATA DEPARTMENT Provider, Generic External Data 05/04/2024 Telephone [facility] [place] [address] Cinthya Ray MD Medication Question 05/03/2024 3:30 PM EDT Office Visit [facility] [place] [address] Cinthya Ray MD Metabolic dysfunction-associat ed steatotic liver disease (MASLD) (Primary Dx); Type 2 diabetes mellitus with hypoglycemia without coma, with long-term current use of insulin (CMS/HCC); Decreased sensation of lower extremity; Tachycardia; Hypotension, [...] DEPARTMENT Provider, Generic External Data 04/29/[address] [address] Fauzia Matamorso NP 04/29/2024 Telephone [facility] [address] [place] [address] Cinthya Ray MD chart prep 04/27/[address] [address] Cinthya Ray MD 04/26/2024 8:40 AM EDT Office Visit [facility] [address] [place] [phone] Fauzia Matamoros NP Type 2 diabetes mellitus with hypoglycemia without coma, with long-term current use of insulin (CMS/HCC) (Primary Dx); Type 2 diabetes mellitus with hyperglycemia, without long-term current use of insulin (CMS/HCC) 04/26/2024 Refill [facility] [address] [place] [address] Cinthya Ray MD 04/26/[address] [address] Rianna Solis, RN NTTS 04/26/2024 Telephone [facility] [address] [place] [address] Cinthya Ray MD 04/26/2024 Travel 04/26/2024 Refill [facility] [address] [place] [phone] Fauzia Matamoros NP Type 2 diabetes mellitus with hyperglycemia, without long-term current use of insulin (CMS/HCC) 04/26/[address] [address] Cinthya Ray MD ER Follow-up; Nurse Triage 04/24/2024 Orders Only GENERIC EXTERNAL DATA DEPARTMENT Provider, Generic External Data 04/23/2024 3:30 PM EDT Telemedicine [facility] [address] [place] [address] Mayito Acuña, Citlali Type 2 diabetes mellitus with hyperglycemia, with long-term current use of insulin (CMS/HCC) (Primary Dx) 04/23/2024 Travel 04/23/2024 Population [facility] Risk Score [facility] () Department [address] [place] [id number] Provider, Population Health Generic 04/22/2024 Travel 04/19/2024 Orders Only [facility] [address] [place] [address] Cinthya Ray MD Type 2 diabetes mellitus with hyperglycemia, with long-term current use of insulin (CMS/HCC) (Primary Dx) 04/15/2024 Orders Only [facility] External Provider, [facility] 04/13/2024 Telephone [facility] [address] [place] [address] Lexis Spann MD 04/07/2024 Telephone [facility] [address] [place] [address] Lexis Spann MD 04/07/2024 Orders Only [facility] [address] [place] [address] Lexis Spann MD 04/06/2024 5:00 PM EST Office Visit [facility] [address] [place] [phone] Lexis Spann MD Lower urinary tract symptoms (LUTS) (Primary Dx); Vaginal discharge 04/06/2024 Orders Only [facility] [address] [place] [phone] Lexis Spann MD 04/01/[address] [address] Rianna Solis RNchildren's aide 03/23/2024 Telephone [facility] [address] [place] [address] Cinthya Ray MD Nurse Triage 03/23/2024 Refill [facility] [address] [place] [address] Cinthya Ray MD from Last 3 Months Immunizations Name Administration Dates Next Due DTP 05/12/1997, 4,1992,08/16,1992 Hep A, Adult 03/14/2023,11/10/2017 Hep A, ped/adol, 2 dose 01/06/2012 Hep B, Adolescent or Pediatric 12/22/1995,1994,10/19/1993 Hib ([facility]) 05/14/1993, 3,1992,04/12 IPV 05/12/1997, 4,1992,04/12 Influenza [...] Patient Health Questionnaire-2 Score 3 05/03/2024 Comments No Sex and Gender Information Value Date Recorded Sex Assigned at Female 12/10/2021 10:14 AM EDT Legal Sex Female 10:14 AM EDT Gender Identity Female 12/10/2021 10:14 AM EDT Sexual Orientation Straight 12/10/2021 10 :14 AM EDT Last Filed Vital Signs Vital Sign Reading Time Taken Comments Blood Pressure 118/83 06/07/2024 11:45 AM EDT Pulse 107 06/07/2024 11:45 AM EDT Temperature 36.4 ??C (97.6 ??F) 06/07/2024 1 1:45 AM EDT Respiratory Rate 16 06/07/2024 11:4 5 AM EDT Oxygen Saturation 98% 06/07/2024 11: 45 AM EDT Inhaled Oxygen Concentration - - Weight 80.2 kg (176 lb 12.8 oz) 025 11:45 AM EDT Height 157.5 cm (5' 2 ) 06/07/2024 11:4 5 AM EDT Body Mass Index 32.34 06/07/2024 11:45 AM EDT Plan of Treatment Upcoming Encounters Date Type Department Care Team (Late st Contact Info) Description 07/30/2024 3:00 PM EDT Office Visit [facility] [address] [place] [address] Demario Bocanegra Health Maintenance Due Date Last Done Comments Family Planning (PISQ) 02/26/2007 Dental Oral Exam 02/08/2023 08/08/2022 COVID-19 Vaccine ( season) 2023 02/22/2021, 07/01/2020, 06/03/2020 Influenza Vaccine (#1) 2023 8, 04/10/2017, 10/24/2014, Additional history exists Dental X-Ray: Bitewings 06/04/2024 06/04/2023, 08/08 SDOH Screening 06/09/2024 06/10/2023 Cervical Cancer Screening 07/24/2024 HPV/Cotest 07/24/2024 Pap Smear 07/24/2024 07/24/2021 Dental Prophylaxis 07/31/2024 01/30/2024, 0 06/04/2023, 08/08/2022 Diabetes: Hemoglobin A1C 11/03/2024 025, 01/26/2024, 11/26/2023, Additional history exists Diabetes: Foot Exam 11/25/2024 11/26/2023, 11/26/2023, 11/26/2023, Additional history exists Diabetes: Urine Protein Screening 11/25/2024 11/26/2023, 09/12/2023, 08/29/2022, Additional history exists Lipid Panel 11/25/2024 11/26/2023, 08/03/2023, 06/11/2023, Additional history exists Eye Exam 01/24/2025 01/24/2023 Alcohol/Substance Use Screening 01/26/2025 01/27/2024 Depression Screening 05/03/2025 05/03/2024, 05/04/19 Tobacco Screening 06/07/2025 06/07/2024 Dental X-Ray: Full Mouth 08/09/2025 08/08/2022 DTaP/Tdap/Td [...] 6.5( 3:35 PM EDT) No Mayito Acuña, Citlali Procedures Procedure Name Priority Date/Time Associated Diagnosis Comments POCT WET MOUNT/LILIA Routine 06/07/2024 12 :15 PM EDT Vaginal discharge GLUCOSE, WHOLE BLOOD Routine 05/24/2024 2:51 PM EDT GLUCOSE, WHOLE BLOOD Routine 05/07/2024 3:06 PM EDT POCT GLYCOSYLATED HEMOGLOBIN (HGB A1C) Routine 05/03/2024 3:35 PM EDT Type 2 diabetes mellitus with hypoglycemia without coma, with long-term current use of insulin ([facility]) POCT GLUCOSE Routine 05/03/2024 3:35 PM EDT Type 2 diabetes mellitus with hypoglycemia without coma, with long-term current use of insulin ([facility]) GLUCOSE, WHOLE BLOOD Routine 04/30/2024 9:39 AM [...] AM EST Lower urinary tract symptoms (LUTS) PROPHYLAXIS - ADULT Routine 01/30/2024 8 :00 [...] Relevant to Health Maintenance Results * POCT fern test, vaginal fluid manually resulted (06/07/2024 12:15 PM EDT) LILIA Prep Positive Comment:pH 4.5, neg whiff, n eg clue, neg trich, neg wbc. pos hyphae Vaginal Fluid Vaginal structure / Unknown 06/07/2024 12:15 PM EDT Abigail Ramirez CNM - 06/07/2024 12:15 PM EDT Vulvovaginal candidiasis Abigail Darling CNM POINT OF CARE TEST ENTER/ EDIT ORDERABLES Final Result * (ABNORMAL) Glucose, Whole Blood (05/24/2024 2:51 PM EDT) Only the most recent of3 resultswithin the time period is included. Glucose, Whole Blood 168(H) 60 - 115 mg/dL [facility] Comment:METER #: [id number] 5Testing performed in the Endocrinology Department [address] , [address], [facility]. 05/24/2024 2:51 PM EDT 05/24/2024 2:54 PM EDT Generic External Data Provider LAB BLOOD ORDERAB LES Final Result [facility] [address] [place] [phone] * (ABNORMAL) POCT glycosylated hemoglobin (Hgb A1c) (05/03/2024 3:35 PM EDT) Hemoglobin A1C 6.5(A) 4.0 - 6.0 % QC Media Lot # [id number] Lot# Expiration Date 120,02 6 Blood Capillary blood specimen / Unknown [...] Whole Blood 103 60 - 115 mg/dL [facility] Comment:METER #: [id number] 04/24/2024 11:5 1 PM EDT 04/24/2024 11:55 PM EDT us Generic External Data Provider LAB BLOOD ORDERAB LES Final Result [facility] [address] [place] [address] [phone] * (ABNORMAL) CBC auto differential (04/24/2024 10:57 PM EDT) [facility] White Blood Count 9.2 4.8 - 10.8 X10*3/uL [facility] Red Blood Count 4.64 4.20 - 5.50 X10*6/uL [facility] Hemoglobin 11.5(L) 12.0 - 16.0 g/dl [facility] Hematocrit 34.9(L) 37.0 - 47.0 % [facility] Mean Corpuscular Volume 75.2(L) 80.0 - 98.0 fL [facility] Mean Corpuscular Hemoglobin 24.8(L) 27.0 - 33.0 pg [facility] Mean Corpuscular HGB Conc 33.0 31.0 - 35.0 g/dl [facility] Red Cell Distribution Width 15.3 11.0 - 16.0 % [facility] Platelet Count 281 160 - 400 X10*3/uL [facility] Mean Platelet Volume 9.0(L) 9.4 - 12.3 fL [facility] Neutrophils Percent Auto 59.8 45 - 73 % [facility] Imm Gran Pct Auto 0.3 0.0 - 0.4 % [facility] Lymphocytes Percent Auto 33.3 20 - 40 % [facility] Monocytes Percent Auto 5.0 2 - 11 % [facility] Eosinophils Percent Auto 1.2 0 - 4 % [facility] [facility] Basophils Percent Auto 0.4 0 - 2 % [facility] NRBC Pct Auto 0.0 0.0 - 0.2 /100WBC [facility] Neutrophils Absolute Auto 5.5 2.0 - 8.3 x10*3/uL [facility] Imm Gran Abs Auto 0.03 0.00 - 0.03 X10*3/uL [facility] Lymphocytes Absolute Auto 3.1 1.2 - 4.9 X10*3/uL [facility] Monocytes Absolute Auto 0.5 0.1 - 1.2 X10*3/uL [facility] Eosinophils Absolute Auto 0.1 0.0 - 0.4 X10*3/uL [facility] Basophils Absolute Auto 0.0 0.0 - 0.2 X10*3/uL [facility] NRBC Abs Auto 0.000 0.0 - 0.012 X10*3/uL [facility] 04/24/2024 10:5 7 PM EDT 04/24/2024 11:01 PM EDT us Generic External Data Provider LAB BLOOD ORDERAB LES Final Result [facility] [address] [place] [phone] * (ABNORMAL) Comprehensive Metabolic Panel (04/24/2024 10:57 PM EDT) Sodium 142 135 - 145 mmol/L [facility] Potassium 3.9 3.3 - 5.1 mmol/L [facility] Chloride 109(H) 96 - 108 mmol/L [facility] Carbon Dioxide 24 22 - 29 mmol/L [facility] Anion Gap 13 12 - 20 [facility] Urea Nitrogen (BUN) 17(H) 9 - 16 mg/dL [facility] Creatinine, Serum 0.71 0.5 - 1.4 mg/dL [facility] Creatinine Clr Calc Pharmacy 110.9 [facility] Comment:Provided height and weight: 157.48 cm,79.379 kg.eGFR (calculated from the MDRD study equation) and eCrCl(calculated from the Cockcroft-Gault equation) are based ondifferent parameters and may not yield comparable results.If eCrCl result is absurd, please check patient'sheight/weight. Estimated Glomerular Filt Rate >60 [facility] Comment:Chronic Kidney Disea se: Estimated GFR < 60 mL/min/1.97c2Jhgdpf Kidney Disease: Estimated GFR < 15 mL/min/1.73m2 Glucose 96 60 - 115 mg/dL [facility] Calcium 8.7 8.4 - 10.2 mg/dL [facility] Bilirubin, Total 0.3 0.0 - 1.0 mg/dL [facility] Aspartate Amino Transferase 22 5 - 31 U/L [facility] Alanine Aminotransferase 15 0 - 31 U/L [facility] Total Protein 7.5 6.5 - 8.0 g/dL [facility] Albumin Level 3.6 3.5 - 5.0 g/dL [facility] Alkaline Phosphatase 77 39 - 117 U/L [facility] 04/24/2024 10:5 7 PM EDT 04/24/2024 11:01 PM EDT us Generic External Data Provider LAB BLOOD ORDERAB LES Final Result Performing Organization Address City/State/[facility] Co de Phone Number [facility] [address] [place] [phone] * FL upper GI w air (04/15/2024 8:00 AM EST) Anatomical Region Laterality Modality Body Radiographic Viky ging 04/15/2024 8:00 AM EST Narrative 04/19/2024 1:33 PM EDT ? [facility] ?[address] ?[place] [address] ? Fluoroscopy Report ? Signed ? Patient: Sonali Gill ?MR#: ?? [id number] ? : 1990 ?Acct:[id number] ? Age/Sex: 34 / F ?ADM Date: 03/06/25 ? Loc: HO.XRAY ? Attending Dr: Nate Mijares MD ? Ordering Physician: Nate Mijares MD ?? Date of Service: 04/15/24 ?? Procedure(s): FL upper GI w air ?? Accession Number(s): [id number] ? cc: Nate Mijares MD; Cinthya Ray [...] Dr. Ornelas ? Electronically signed by: ??Jeremi Ceci MD ??04/19/2024 01:30 PM EDT RP ? Dictated By: ?Umberto Hansen ? Signed By: ?<Electronically signed by Umberto Hansen in OV> ? 04/19/24 1330 ?<Electronically signed by Jeremi S Ceci BRITTON in OV> ? 04/19/24 1332 ? DD/ 0800 ? TD/TT: 04/15/24 0820 ? Wharf Tender Helper: ? Procedure Note Donotaudieinterpreter, Image - 04/19/[address] [address] Fluoroscopy Report Signed Patient: Jeremy Gill#: [id number] : 1990Acct:[id number] Age/Sex: 34 / FADM Date: 04/15/24 Loc: HO.XRAY Attending Dr: Nate Mijares MD Ordering Physician: Nate Mijares MD Date of Service: 04/15/24 Procedure(s): FL upper GI w air Accession Number(s): [id number] cc: Nate Mijares MD; Cinthya aRy MD EXAMINATION: XR FLUOROSCOPY UPPER GI WITH [...] 04/19/24 1332 DD/ 0800 TD/TT: 04/15/24 0820 Wharf Tender Helper: [facility] External Provider IMG FLU OROSCOPY PROCEDURES Final [...] Expiration Date Urine 04/06/2024 5:13 PM EST Result [facility] Lexis Spann MD POINT OF CARE TEST ENTER /EDIT ORDERABLES Final Result * (ABNORMAL) Bacterial Vaginosis (04/06/2024 5:04 PM EST) TRICHOMONAS VAGINALIS DETECTION BY PCR NOT DETECTED Not Detect [facility] BACTERIAL VAGINOSIS DETECTION BY PCR POSITIVE(A) Negative [facility] Comment:The BV organism targ ets of [...] DETECTION BY PCR NOT DETECTED Not Detect [facility] Deyanira glab krusei PCR NOT DETECTED Not Detect [facility] 04/06/2024 5:04 PM EST 04/07/2024 11:23 AM EST Lexis Spann MD LAB MICROBIOLOGY - GENER AL ORDERABLES Final Result [facility] [address] [place] [phone] * Chlamydia/N. Gonorrhoeae RNA, TMA, Urogenitial (04/06/2024 5:04 PM EST) CT PCR NOT DETECTED Not Detect. [facility] Comment:A not detected test result does [...] psychologicalconsequences. NG PCR NOT DETECTED Not Detect. [facility] Comment:A not detected test result does [...] 5:04 PM EST 04/07/2024 11:15 AM EST [facility] - 04/07/2024 1:26 PM EST Vaginal Lexis Spann MD LAB MICROBIOLOGY - GENER AL ORDERABLES Final Result Performing Organization Address [facility] Co de Phone Number [facility] [address] [place] [phone] * Culture, Urine, Routine (04/06/2024 12:00 AM EST) Urine Urine specimen obtained by clean catch procedure / Unknown 04/06/2024 04/06/2024 Comment:[facility] - 04/10/2024 7:29 AM EST Escherichia [...] AL ORDERABLES Final Result Performing Organization Address [facility] de Phone Number [facility] [address] [place] [phone] * (ABNORMAL) Lipid Panel with Reflex to Direct LDL (11/26/2023 11:30 AM EDT) Triglycerides 145 <150 mg/dL [facility] Comment:Desirable Triglyceri de: less than 150 mg/dLBorderline High Triglyceride 150-199 mg/dLHigh Triglyceride: 200-499 mg/dLVery High Triglyceride: greater than or equal to 5OO mg/dL Cholesterol 152 <200 mg/dL [facility] Comment:Desirable Cholestero l: less than 200 mg/dLBorderline High Cholesterol: 200-239 mg/dLHigh Cholesterol: greater than 239 mg/dL LDL Cholesterol Calculated 91 <100 mg/dL [facility] Comment:Desirable LDL: less than 100 mg/dLNear Optimal/Above Optimal LDL: 110- 129 mg/dLBorderline High LDL: 130-159 mg/dLHigh LDL: 160-189 mg/dLVery High LDL: greater than or equal to 190 mg/dL HDL Cholesterol 32(L) >40 mg/dL [facility] Comment:Desirable HDL: great er than 40 mg/dL Note: This HDL assay may give artificially low results in patients with liver disease. Blood 11/26/2023 11:3 0 AM EDT 11/26/2023 1:20 PM EDT Cinthya Ray MD LAB BLOOD ORDERABLES Final Resul t Performing Organization Address [facility] Co de Phone Number [facility] [address] [place] [phone] * Hepatitis C Antibody with Reflex to HCV, RNA, Quantitative, Real-Time PCR (11/26/2023 11:30 AM EDT) Hepatitis C Antibody Nonreactive Nonreactive [facility] Comment:Antibodies to HCV no t detected; does not exclude early acuteHCV infection. Blood Venous blood specimen / Unknown 11/26/2023 11:30 AM EDT 11/26/2023 1:20 PM EDT Cinthya Ray MD LAB BLOOD ORDERABLES Final Resul t Performing Organization Address [facility] Co de Phone Number [facility] [address] [place] [phone] * HIV-1/2 Antigen and Antibodies, Fourth Generation, with Reflexes (11/26/2023 11:30 AM EDT) HIV AB/AG Nonreactive Nonreactive [facility] Comment:HIV-1 p24 Ag and/or HIV-1/HIV-2 Ab not detected.A test result that is nonreactive does not exclude thepossibility of exposure to or infection with HIV-1 and/orHIV-2. Nonreactive results in this assay for individualswith prior exposure to HIV-1 and/or HIV-2 may be due toantigen and antibody levels that are below the limit ofdetection of this assay.The [employer] HIV Ag/Ab Combo assay result andsupplemental assay results should be interpreted inconjunction with the patient's clinical presentation,history and other laboratory results. If the results areinconsistent with clinical evidence, additional testing issuggested to confirm the result. Blood Venous blood specimen / Unknown 11/26/2023 11:30 AM EDT 11/26/2023 1:20 PM EDT Cinthya Ray MD LAB BLOOD ORDERABLES Final Resul t Performing Organization Address City/[facility]/ZIP Co de Phone Number [facility] [address] [place] [phone] * Albumin, Random Urine W/Creatinine (11/26/2023 12:00 AM EDT) Creatinine, Urine 238.24 mg/dL [facility] Microalbumin Urine 23.0 mg/L [facility] Microalbum Creatinine Ratio Ur 9.6 <30 ug/mg cr [facility] Comment:Albumin/Creatinine R atio Reference Ranges: Normal: < 30 ug/mg creatinine Microalbuminuria: 30 - 300 ug/mg creatinineClinical Albuminuria: > 300 ug/mg creatinine Urine 11/26/2023 11/26/2023 Cinthya Ray MD LAB URINE ORDERABLES Final Resul t Performing Organization Address [facility] Co de Phone Number [facility] [address] [place] [phone] * Diabetes Eye Exam (01/24/2023) Eye Exam Normal Normal Comment:[place] eye 01/24/2023 Historical Provider HEALTH MAINTENANCE Final [...] has been evaluated with computer assisted technology. [facility] Field Map Technician : SEE COMMENT [facility] Comment: MXD, CT (ASCP) CT screening location: [address] ??[phone] Interpretation/R esult: Negative for intraepithelial lesion or malignancy. [facility] LMP: NONE [facility] Prev. BX: NONE [facility] Prev. PAP: NONE [facility] SOURCE: None given [facility] Statement Of Adequacy: SEE COMMENT [facility] Comment: Satisfactory for evaluation. Endocervical/transformation zone component present. Age and/or menstrual status not provided 07/24/2021 4:01 PM EDT Cinthya Ray MD LAB PATHOLOGY ORDERABLES Final R esult [facility] [address] from Last 3 Months or Most Recently Relevant to Health Maintenance [id number] [place] [facility] ST[facility] ADULT * Guarantor: Sonali Gill Account Type Relation to Patient Date of Phone Billing Address Personal/Family Self [facility] [place] Care Teams Rod Puller And Coiler Relationship Specialty Start Date End Date Cinthya Ray MD [address] [place] [address] [phone] PCP - General Family Medicine 10/23/11
--- OUTSIDE RECORDS SUMMARY | 2024-06-18 08:46 | XMS_ITS | Encounter Summary ---
Author Organization [employer] Address [address] [place] [address] 7 [place] [address] Care Team Providers Care Cardiopulmonary Technologist Name Role Phone Cinthya Ray MD Primary Care Provider [phone] Mayito Acuña PharmD Unavailable [phone] Reason for Visit * Reason Onset Date Comments Med Refill 10/30/2023 Encounter Details Date Type Department Care Team (Late st Contact Info) Description 10/30/2023 Refill [facility] [address] [place], [place] [phone] Cinthya Ray MD [address] [place] [address] Type 2 diabetes mellitus with hyperglycemia, without long-term current use of insulin ([facility]) Social History Tobacco Use Types Packs/Day [...] 07/30/2024 3:00 PM EDT [facility] [address] [place] [address] Demario Bocanegra documented as of this encounter [...] hyperglycemia, without long-term current use of insulin ([facility]) documented in this encounter Additional Health Concerns Assessment Noted Time PHQ-9 Depression Total Score: 11 024 9:48 AM EDT documented as of this encounter Care Teams Cardiopulmonary Technologist Relationship Specialty Start Date End Date Cinthya Ray MD [address] [place] [address] PCP - General Family Medicine 10/23/11 Mayito Acuña PharmD [address] [place] [address] Pharmacist Internal Medicine 03/07/23 04/22/24 documented as of this encounter
--- OUTSIDE RECORDS SUMMARY | 2024-06-18 08:46 | XMS_ITS | Encounter Summary ---
Author Organization [employer] Address [address] [facility] 7 [place] [address] Care Team Providers Care Tool Procurement Coordinator Name Role Phone Cinthya Ray MD Primary Care Provider [phone] Mayito Acuña PharmD Unavailable [phone] Encounter Details Date Type Department Care Team (Late st Contact Info) Description 06/30/2023 Orders Only [facility] [address] [place], [place] [phone] Mayito Acuña, PharmD [address] [place], [place] [phone] Type 2 diabetes mellitus with hyperglycemia, with long-term current use of insulin ([facility]) (Primary Dx) Social History Tobacco Use Types [...] [facility] [address] [place] [address] Demario Bocanegra documented as of this encounter [...] hyperglycemia, with long-term current use of insulin ([facility]) documented in this encounter Results * Hematoxylin and Eosin Stain (06/30/2023 12:47 PM EDT) 06/30/2023 12:4 7 PM EDT 06/30/2023 1:27 PM EDT [facility] - 07/02/2023 9:30 AM EDT ----- ------- Name: Sonali Gill ?Age/Sex: 33/F ? : 1990 Unit#: [id number] ?? Attend Dr: Jose Figueroa MD ?Re06/30/23 ?Status: DEP SDC ? Location: HO.SSS ?Disch: ? ----- ------- SPEC : [id number] ? RECD: 06/30/23-1326 ? STATUS: ??SOUT ? REQ NUM: [id number] ? MELANIA: 06/30/23-1246 ? SUBM DR: Jose Figueroa MD ? ENTERED: ??06/30/23-6260 ?SP TYPE: Surgical ? OTHR DR: Cinthya [...] Gill ?Age/Sex: 33/F ? : 1990 Unit#: [id number] ?? Attend Dr: Jose Figueroa MD ?Re06/30/23 ?Status: DEP SDC ? Location: HO.SSS ?Disch: ? ----- ------- SPEC : [id number] ? RECD: 06/30/23-1326 ? STATUS: ??SOUT ? REQ NUM: [id number] ? MELANIA: 06/30/23-1247 ? SUBM DR: oJse Figueroa MD ? ENTERED: ??06/30/23-9850 ?SP TYPE: Surgical ? OTHR DR: Cinthya [...] To: ?? Jose Figueroa MD ?? [address] [facility] [address] ?? [place] [address] ?? [phone] ?? Cinthya Ray MD ?? [address] ?? [place] [address] ?? ----- ------- Signed (signature on file) Esa Aguiar MD 07/02/23 0241 ? ----- ------- ? END OF REPORT ? us Generic External Data Provider LAB BLOOD ORDERAB LES Final Result [facility] [address] [place] [phone] [phone] documented in this encounter Visit Diagnoses Diagnosis Type 2 diabetes mellitus with hyperglycemia, with long-term current use of insulin ([facility])- Primary documented in this encounter Additional Health Concerns Assessment Noted Time PHQ-9 Depression Total Score: 0 06/10/19 24 2:55 PM EDT documented as of this encounter Care Teams Tool Procurement Coordinator Relationship Specialty Start Date End Date Cinthya Ray MD [address] [place] [address] PCP - General Family Medicine 10/23/11 Mayito Acuña, DyanD [address] [place] [address] Pharmacist Internal Medicine 03/07/23 04/22/24 documented as of this encounter
--- OUTSIDE RECORDS SUMMARY | 2024-06-18 08:46 | XMS_ITS | Encounter Summary ---
Author Organization [employer] Address [address] [place] [address] Care Team Providers Care Diesel Locomotive Engineer Name Role Phone Cinthya Ray MD Primary Care Provider [phone] Mayito Acuña PharmD Unavailable [phone] Reason for Visit * Reason Onset Date Comments Med Refill 09/29/2023 Encounter Details Date Type Department Care Team (Late st Contact Info) Description 09/29/2023 Refill [facility] [address] [place], [place] [phone] Cinthya Ray MD [address] [place] [address] Type 2 diabetes mellitus with hyperglycemia, without long-term current use of insulin ([facility]) Social [...] Description 07/30/2024 3:00 PM EDT Office Visit [facility] [address] [place] [address] Demario Bocanegra documented as of this encounter [...] current use of insulin ([facility]) documented in this encounter Additional Health Concerns Assessment Noted Time PHQ-9 Depression Total Score: 11 024 9:48 AM EDT documented as of this encounter Care Teams Diesel Locomotive Engineer Relationship Specialty Start Date End Date Cinthya Ray MD [address] [place] [address] PCP - General Family Medicine 10/23/11 Mayito Acuña PharmD [address] [place] [phone] Pharmacist Internal Medicine 03/07/23 04/22/24 documented as of this encounter
--- OUTSIDE RECORDS SUMMARY | 2024-06-18 08:46 | XMS_ITS | Encounter Summary ---
Author Organization [employer] Address [address] [place] [address] [place] [address] Care Team Providers Care Telemarketing Representative Name Role Phone Cinthya Ray MD Primary Care Provider [phone] Mayiot Acuña PharmD Unavailable [phone] Reason for Visit * Reason Onset Date Comments Med Refill 10/30/2023 Encounter Details Date Type Department Care Team (Late st Contact Info) Description 10/30/2023 Refill [facility] [address] [place], [place] [phone] Cinthya Ray MD [address] [place] [address] Social History Tobacco Use Types Packs/Day Years [...] enough money to get more: Never True 04/ Transportation Answer Date Recorded In the past [...] [facility] [address] [place] [address] Demario Bocanegra documented as of this encounter [...] documented as of this encounter Care Teams Telemarketing Representative Relationship Specialty Start Date End Date Cinthya Ray MD [address] [place] [address] PCP - General Family Medicine 10/23/11 Mayito Acuña PharmD [address] [place] [address] Pharmacist Internal Medicine 03/07/23 04/22/24 documented as of this encounter
--- OUTSIDE RECORDS SUMMARY | 2024-06-18 08:46 | XMS_ITS | Encounter Summary ---
Author Organization [employer] Address [address] [place] [address] Care Team Providers Care Cafe Operator Name Role Phone Cinthya Ray MD Primary Care Provider [phone] Mayito Acuña PharmD Unavailable [phone] Reason for Referral * Consultation (Routine) - Closed Specialty Diagnoses / Procedures Referred By Contcarly t Referred To Contact Pharmacy Diagnoses Type 2 diabetes mellitus with hyperglycemia, with long-term current use of insulin (CMS/HCC) Cinthya Ray MD [address] [place] [address] Phone: tel: fax: Referral ID Status Reason Start Date Expiration Date V isits Requested Visits Authorized [id number] Closed Consult and Treat 12/23/2023 12/22/2024 6 6 Encounter Details Date Type Department Care Team (Late st Contact Info) Description 12/23/2023 Orders Only [facility] [address] [place], [place] [phone] Cinthya Ray MD [address] [place], [place] [phone] Type 2 diabetes mellitus with hyperglycemia, with [...] 07/30/2024 3:00 PM EDT Office Visit [facility] [address] [place] [address] Demario Bocanegra Scheduled Referrals Name Type Priority Associated Diagnoses Orde r Schedule Referral to Pharmacy CDTM Outpatient Referral Routine Type 2 diabetes mellitus with hyperglycemia, with long-term current use of insulin ([facility]) Ordered: 12/23/2023 documented as of this encounter [...] hyperglycemia, with long-term current use of insulin ([facility])- Primary documented in this encounter Additional Health Concerns Assessment Noted Time PHQ-9 Depression Total Score: 11 024 9:48 AM EDT documented as of this encounter Care Teams Cafe Operator Relationship Specialty Start Date End Date Cinthya Ray MD [address] [place] [address] PCP - General Family Medicine 10/23/11 Mayito Acuña PharmD [address] [place] [address] Pharmacist Internal Medicine 03/07/23 04/22/24 documented as of this encounter
--- OUTSIDE RECORDS SUMMARY | 2024-06-18 08:46 | XMS_ITS | Encounter Summary ---
Author Organization [employer] Address [address] [facility] 7 [place] [address] Care Team Providers Care Roving Changer Name Role Phone Cinthya Ray MD Primary Care Provider [phone] Mayito Acuña PharmD Unavailable [phone] Encounter Details Date Type Department Care Team (Late st Contact Info) Description 04/07/2024 Orders Only [facility] [address] [place], [place] [phone] Lexis Spann MD [address] [place], [place] [phone] Social History Tobacco Use Types Packs/Day Years [...] [facility] [address] [place] [address] Demario Bocanegra documented as of this encounter [...] documented as of this encounter Care Teams Roving Changer Relationship Specialty Start Date End Date Cinthya Ray MD [address] [place] [phone] PCP - General Family Medicine 10/23/11 Mayito Acuña PharmD [address] [place] [phone] Pharmacist Internal Medicine 03/07/23 04/22/24 documented as of this encounter
--- OUTSIDE RECORDS SUMMARY | 2024-06-18 08:46 | XMS_ITS | Encounter Summary ---
Author Organization [employer] Address [address] [place] [address] Care Team Providers Care Floodplain Manager Name Role Phone Cinthya Ray MD Primary Care Provider Mayito Acuña PharmD Unavailable [phone] Reason for Visit * Reason Onset Date Comments Results 12/09/2022 Encounter Details Date Type Department Care Team ([facility] st Contact Info) Description 12/09/2022 Telephone [facility] [address] [place], [place] [phone] Cinthya Ray MD [address] [place], [place] [phone] Results Social History Tobacco Use Types Packs/Day [...] to US results. Please contact pt at [phone] documented in this encounter Plan of Treatment Upcoming Encounters Date Type Department Care Team (Late st Contact Info) Description 07/30/2024 3:00 PM EDT Office Visit [facility] [address] [place] [address] Demario Bocanegra documented as of this encounter Visit Diagnoses Not on filedocumented in this encounter Care Teams Floodplain Manager Relationship Specialty Start Date End Date Cinthya Ray MD [address] [place] [address] PCP - General Family Medicine 10/23/11 Mayito Acuña, DyanD [address] [place] [address] Pharmacist Internal Medicine 03/07/23 04/22/24 documented as of this encounter
--- OUTSIDE RECORDS SUMMARY | 2024-06-18 08:46 | XMS_ITS | Encounter Summary ---
Author Organization [employer] Address [address] [place] [address] Care Team Providers Care Photography Spotter Name Role Phone Cinthya Ray MD Primary Care Provider [phone] Mayito Acuña PharmD Unavailable [phone] Reason for Referral * Consultation (Urgent) - Closed Specialty Diagnoses / Procedures Referred By Contac t Referred To Contact Endocrinology Diagnoses Type 2 diabetes mellitus with hyperglycemia, with long-term current use of insulin (CMS/HCC) Cinthya Ray MD [address] [place] [address] Phone: tel: fax: [facility] Endocrinology [address] [place] [address] Phone: tel: fax: Referral ID Status Reason Start Date Expiration Date V isits Requested Visits Authorized [id number] Closed Specialty Services Required 04/19/2024 04/19/2025 12 12 Encounter Details Date Type Department Care Team (Late st Contact Info) Description 04/19/2024 Orders Only [facility] MED[facility]INE [address] [place], [place] [phone] Cinthya Ray MD [address] [place], [place] [phone] Type 2 diabetes mellitus with hyperglycemia, with [...] [facility] ADULT D[facility] [address] [place] [address] Demario Bocanegra Pending Results Name Type Priority Associated Diagnoses Date /Time Referral to Endocrinology Outpatient Referral Urgent Type 2 diabetes mellitus with hyperglycemia, with long-term current use of insulin ([facility]) 04/30/2024 Scheduled Referrals Name Type Priority Associated Diagnoses Order Schedule Referral to Endocrinology Outpatient Referral Urgent Type 2 diabetes mellitus with hyperglycemia, with long-term current use of insulin ([facility]) Expected: 04/19/2024 (Approximate), Expires: 04/19/2025 [...] hyperglycemia, with long-term current use of insulin ([facility])- Primary documented in this encounter Additional Health Concerns Assessment Noted Time PHQ-9 Depression Total Score: 11 024 9:48 AM EDT documented as of this encounter Care Teams Photography Spotter Relationship Specialty Start Date End Date Cinthya Ray MD [address] [place] [address] PCP - General Family Medicine 10/23/11 Mayito Acuña PharmD [address] [place] [address] Pharmacist Internal Medicine 03/07/23 04/22/24 documented as of this encounter
--- OUTSIDE RECORDS SUMMARY | 2024-06-18 08:46 | XMS_ITS | Encounter Summary ---
Author Organization [employer] Address [address] [place] [address] [place] [address] Care Team Providers Care Brim Stretching Machine Operator Name Role Phone Cinthya Ray MD Primary Care Provider [phone] Mayito Acuña PharmD Unavailable [phone] Reason for Visit * Reason Onset Date Comments Med Refill 08/06/2023 Encounter Details Date Type Department Care Team (Late st Contact Info) Description 08/06/2023 Refill [facility] MED[facility] 230 [place], [place] [phone] Cinthya Ray MD 230 [place] [address] Social History Tobacco Use Types Packs/Day Years [...] [facility] [address] [place] [address] Demario Bocanegra documented as of this encounter [...] documented as of this encounter Care Teams Brim Stretching Machine Operator Relationship Specialty Start Date End Date Cinthya Ray MD [address] [place] [address] PCP - General Family Medicine 10/23/11 Mayito Acuña PharmD [address] [place] [address] Pharmacist Internal Medicine 03/07/23 04/22/24 documented as of this encounter
--- OUTSIDE RECORDS SUMMARY | 2024-06-18 08:46 | XMS_ITS | Encounter Summary ---
Author Organization [employer] Address [address] [place] [address] 7 [place] [address] Care Team Providers Care Testboard Operator Name Role Phone Cinthya Ray MD Primary Care Provider [phone] Reason for Visit * Reason Onset Date Comments Med Refill 06/18/2024 Encounter Details Date Type Department Care Team (Late st Contact Info) Description 06/18/2024 Refill [facility] 230 [place], [place] [phone] Cinthya Ray MD 230 [place], [place] [phone] Type 2 diabetes mellitus with hyperglycemia (CMS/HCC); Injury of head, initial encounter Social History [...] Description 07/30/2024 3:00 PM EDT Office Visit [facility] ADULT D[facility] [address] [place] [address] Demario Bocanegra documented as of this encounter Goals Goal Patient Goal Type Associated Problems Recent Progress Patient-Stated? Author Blood Pressure < 140/90 Blood Pressure 118/83(2024 11:45 AM EDT) No Mayito Acuña, PharmD Hemoglobin A1c < 7 Result Component 6.5( 3:35 PM EDT) No Mayito Acuña, Citlali documented as of this encounter Visit Diagnoses Diagnosis Type 2 diabetes mellitus with hyperglycemia ([facility]) Injury of head, initial encounter documented in this encounter Additional Health Concerns Assessment Noted Time PHQ-9 Depression Total Score: 14 025 3:57 PM EDT documented as of this encounter Care Teams Testboard Operator Relationship Specialty Start Date End Date Cinthya Ray MD [address] [place] [address] PCP - General Family Medicine 10/23/11 documented as of this encounter
--- OUTSIDE RECORDS SUMMARY | 2024-06-18 08:46 | XMS_ITS | Encounter Summary ---
Author Organization [employer] Address [address] [facility] 7 [place] [address] Care Team Providers Care Crucible Packer Name Role Phone Cinthya Ray MD Primary Care Provider [phone] Mayito Acuña PharmD Unavailable [phone] Encounter Details Date Type Department Care Team (Late st Contact Info) Description 09/15/2023 Orders Only [facility] MEDICINE 230 [place], [place] [phone] Cinthya Ray MD 230 [place], [place] [phone] Type 2 diabetes mellitus with hyperglycemia, without long-term current use of insulin ([facility]) Social History Tobacco Use Types Packs/Day Years [...] [facility] [address] [place] [address] Demario Bocanegra documented as of this encounter [...] long-term current use of insulin ([facility]) documented in this encounter Additional Health Concerns Assessment Noted Time PHQ-9 Depression Total Score: 0 09/10/19 9:01 AM EDT documented as of this encounter Care Teams Crucible Packer Relationship Specialty Start Date End Date Cinthya Ray MD [address] [place] [address] PCP - General Family Medicine 10/23/11 Mayito Acuña PharmD [address] [place] [address] Pharmacist Internal Medicine 03/07/23 04/22/24 documented as of this encounter
--- OUTSIDE RECORDS SUMMARY | 2024-06-18 08:46 | XMS_ITS | Encounter Summary ---
Author Organization [employer] Address [address] [facility] 7 [place] [address] Care Team Providers Care Typewriter Assembler Name Role Phone Cinthya Ray MD Primary Care Provider [phone] Encounter Details Date Type Department Care Team ([facility] st Contact Info) Description 06/09/2024 Orders Only [facility] 230 [place], [place] [phone] Abigail aDrling, [facility] 230 [place], [place] [phone] Social History Tobacco Use Types Packs/Day Years [...] [facility] ADULT D[facility] [address] [place] [address] Demario Bocanegra documented as of this encounter [...] documented as of this encounter Care Teams Typewriter Assembler Relationship Specialty Start Date End Date Cinthya Ray MD [address] [place] [address] PCP - General Family Medicine 10/23/11 documented as of this encounter
--- OUTSIDE RECORDS SUMMARY | 2024-06-18 08:46 | XMS_ITS | Encounter Summary ---
Author Organization [employer] Address [address] [facility] 7 [place] [address] Care Team Providers Care Office Machine Servicer Apprentice Name Role Phone Cinthya Ray MD Primary Care Provider [phone] Reason for Visit * Reason Onset Date Comments Med Refill 06/18/2024 Encounter Details Date Type Department Care Team (Late st Contact Info) Description 06/18/2024 Refill [facility] MED & PEDS [address] [place], [place] [phone] Cinthya Ray MD 230 [place] [address] Injury of head, initial encounter Social History [...] [facility] ADULT D[facility] 505 [place] [address] Demario Bocanegra documented as of this encounter [...] documented as of this encounter Care Teams Office Machine Servicer Apprentice Relationship Specialty Start Date End Date Cinthya Ray MD [address] [place] [address] PCP - General Family Medicine 10/23/11 documented as of this encounter
--- OUTSIDE RECORDS SUMMARY | 2024-06-18 08:46 | XMS_ITS | Encounter Summary ---
Author Organization [employer] Address [address] [place] [address] 7 [place] [address] Care Team Providers Care Mgmt Consultant Name Role Phone Cinthya aRy MD Primary Care Provider [phone] Mayito Acuña PharmD Unavailable [phone] Reason for Visit * Reason Onset Date Comments Med Refill 09/29/2023 Encounter Details Date Type Department Care Team (Late st Contact Info) Description 09/29/2023 Refill [facility] CHC MED & PEDS [address] [place], [place] [phone] Cinthya Ray MD 230 [place] [address] Type 2 diabetes mellitus with hyperglycemia, without long-term current use of insulin ([facility]) Social History [...] Description 07/30/2024 3:00 PM EDT Office Visit [facility] [address] [place] [address] Demario Bocanegra documented as of this encounter [...] without long-term current use of insulin ([facility]) documented in this encounter Additional Health Concerns Assessment Noted Time PHQ-9 Depression Total Score: 11 024 9:48 AM EDT documented as of this encounter Care Teams Mgmt Consultant Relationship Specialty Start Date End Date Cinthya Ray MD [address] [place] [address] PCP - General Family Medicine 10/23/11 Mayito Acuña PharmD [address] [place] [address] Pharmacist Internal Medicine 03/07/23 04/22/24 documented as of this encounter
--- OUTSIDE RECORDS SUMMARY | 2024-06-18 08:46 | XMS_ITS | Encounter Summary ---
Author Organization [employer] Address [address] [place] [address] 7 [place] [address] Care Team Providers Care Hydraulic Press Tender Name Role Phone Cinthya Ray MD Primary Care Provider [phone] Mayito Acuña PharmD Unavailable [phone] Reason for Visit * Reason Onset Date Comments Med Refill 03/12/2024 Encounter Details Date Type Department Care Team (Late st Contact Info) Description 03/12/[address] [facility] CHC MED & PEDS [address] [place], [place] [phone] Cinthya Ray MD 230 [place] [address] Type 2 diabetes mellitus with hyperglycemia, without long-term current use of insulin ([facility]) Social History Tobacco Use [...] [facility]ULT [facility] [address] [place] [address] Demario Bocanegra documented as of this encounter [...] hyperglycemia, without long-term current use of insulin ([facility]) documented in this encounter Additional Health Concerns Assessment Noted Time PHQ-9 Depression Total Score: 11 024 9:48 AM EDT documented as of this encounter Care Teams Hydraulic Press Tender Relationship Specialty Start Date End Date Cinthya Ray MD [address] [place] [address] PCP - General Family Medicine 10/23/11 Mayito Acuña, DyanD [address] [place] [address] Pharmacist Internal Medicine 03/07/23 04/22/24 documented as of this encounter
--- OUTSIDE RECORDS SUMMARY | 2024-06-18 08:46 | XMS_ITS | Encounter Summary ---
Author Organization [employer] Address [address] [place] [address] 7 [place] [address] Care Team Providers Care Emergency Department Coordinator Name Role Phone Cinthya Ray MD Primary Care Provider [phone] Mayito Acuña PharmD Unavailable [phone] Reason for Visit * Reason Onset Date Comments Med Refill 12/24/2023 Encounter Details Date Type Department Care Team (Late st Contact Info) Description 12/24/2023 Refill [facility] CHC MED & PEDS [address] [place], [place] [phone] Cinthya Ray MD 230 [place] [address] Type 2 diabetes mellitus with hyperglycemia, without long-term current use of insulin ([facility]) Social History Tobacco Use Types Packs/Day [...] [facility] [address] [place] [address] Demario Bocanegra documented as of this encounter [...] hyperglycemia, without long-term current use of insulin ([facility]) documented in this encounter Additional Health Concerns Assessment Noted Time PHQ-9 Depression Total Score: 11 024 9:48 AM EDT documented as of this encounter Care Teams Emergency Department Coordinator Relationship Specialty Start Date End Date Cinthya Ray MD [address] [place] [address] PCP - General Family Medicine 10/23/11 Mayito Acuña, DyanD [address] [place] [address] Pharmacist Internal Medicine 03/07/23 04/22/24 documented as of this encounter
--- OUTSIDE RECORDS SUMMARY | 2024-06-18 08:46 | XMS_ITS | Encounter Summary ---
Author Organization [employer] Address [address] [facility] 7 [place] [address] Care Team Providers Care Fingernail Technician Name Role Phone Cinthya Ray MD Primary Care Provider [phone] Reason for Visit * Reason Comments Med Refill Encounter Details Date Type Department Care Team ([facility] st Contact Info) Description 04/26/2024 Refill [facility] 230 [place], [place] [phone] Cinthya Ray MD 230 [place], [place] [phone] Social History Tobacco Use Types Packs/Day Years [...] [facility] [address] [place] [address] Demario Bocanegra documented as of this encounter [...] documented as of this encounter Care Teams Fingernail Technician Relationship Specialty Start Date End Date Cinthya Ray MD [address] [place] [address] PCP - General Family Medicine 10/23/11 documented as of this encounter
--- OUTSIDE RECORDS SUMMARY | 2024-06-18 08:46 | XMS_ITS | Encounter Summary ---
Author Organization [facility] [employer] Address [address] [place] [address] Care Team Providers Care Universal Grinder Operator Name Role Phone Cinthya Ray MD Primary Care Provider [phone] Mayito Acuña PharmD Unavailable Reason for Visit * Reason Onset Date Comments Med Refill 01/03/2023 Encounter Details Date Type Department Care Team (Late st Contact Info) Description 01/03/2023 Refill [facility] 230 [place], [place] [phone] Cinthya Ray MD [address] [place] [address] Social History Tobacco Use Types Packs/Day Years [...] [facility] [address] [place] [address] Demario Bocanegra documented as of this encounter Visit Diagnoses Not on filedocumented in this encounter Care Teams Universal Grinder Operator Relationship Specialty Start Date End Date Cinthya Ray MD [address] [place] [address] PCP - General Family Medicine 10/23/11 Mayito Acuña, DyanD [address] [place] [address] Pharmacist Internal Medicine 03/07/23 04/22/24 documented as of this encounter
--- OUTSIDE RECORDS SUMMARY | 2024-06-18 08:47 | XMS_ITS | Clinical Summary ---
Author Organization [facility] Address [address] [place] [address] Phone Care Team Providers Care Welcome Center Agent Name Role Phone Unavailable Primary Care Provider Unavailabl e Allergies No known active allergies Medical History Medical History Date Comments Diabetes mellitus ([facility] V24, [facility] V28) Social History Tobacco Use Types Packs/Day [...] on patient's age to complete this topic Insurance MEDICAID - [place]
--- OUTSIDE RECORDS SUMMARY | 2024-06-18 08:47 | XMS_ITS | Encounter Summary ---
Author Organization [employer] Address [address] [place] [address] [place] [address] Care Team Providers Care Tie Up Worker Name Role Phone Cinthya Ray MD Primary Care Provider [phone] Mayito Acuña PharmD Unavailable [phone] Reason for Visit * Reason Onset Date Comments Med Refill 11/02/2023 Encounter Details Date Type Department Care Team (Late st Contact Info) Description 11/02/2023 Refill [facility] 230 [place], [place] [phone] Cinthya Ray MD [address] [place] [address] Social History Tobacco Use Types Packs/Day Years [...] unableto make. Pt will come to [facility] today open till 8pm. Pt reports [...] become worse ----- Message ----- From: Sonali Glil Sent: 11/10/2023 5:32 PM EDT To: [facility] Front Office Subject: Appointment Request Appointment Request From: Sonali Rosa With Provider: Cinthya Ray MD [[facility]] Preferred Date Range: 11/11/2023 - [...] [facility] ADULT D[facility] [address] [place] [address] Demario Bocanegra documented as of this encounter [...] documented as of this encounter Care Teams Tie Up Worker Relationship Specialty Start Date End Date Cinthya Ray MD [address] [place] [address] PCP - General Family Medicine 10/23/11 Mayito Acuña PharmD [address] [place] [address] Pharmacist Internal Medicine 03/07/23 04/22/24 documented as of this encounter
--- OUTSIDE RECORDS SUMMARY | 2024-06-18 08:47 | XMS_ITS | Encounter Summary ---
Author Organization [employer] Address [address] [place] [address] [address], [place] [address] Care Team Providers Care Digital Cartographer Name Role Phone Cinthya Ray MD Primary Care Provider [phone] Mayito Acuña PharmD Unavailable [phone] Reason for Visit * Reason Onset Date Comments Appointment Request 09/02/2022 Encounter Details Date Type Department Care Team ([facility] st Contact Info) Description 09/02/2022 Telephone C [facility] MED [facility] PEDS [address] [place], [place] [phone] Cinthya Ray MD [address] [place] [address] Appointment Request Social History Tobacco Use Types [...] Miscellaneous Notes * Telephone Encounter - Renae Ambrocio 09/02/2022 10:15 AM EDT Tc from pt calling in regards to message above * Telephone Encounter - Karina Roman - 09/02/2022 9:23 AM EDT Tc from pt requesting an appt with provider as soon as possible to discuss her results and to discuss about her kidney failure.' Please contact pt at [phone] documented in this encounter Plan of Treatment Upcoming Encounters Date Type Department Care Team (Late st Contact Info) Description 07/30/2024 3:00 PM EDT Office Visit [facility] ADULT DENTAL [address] [place] [address] Demario Bocanegra documented as of this encounter Visit Diagnoses Not on filedocumented in this encounter Care Teams Digital Cartographer Relationship Specialty Start Date End Date Cinthya Ray MD [address] [place] [address] PCP - General Family Medicine 10/23/11 Mayito Acuña, DyanD [address] [place] [address] Pharmacist Internal Medicine 03/07/23 04/22/24 documented as of this encounter
--- OUTSIDE RECORDS SUMMARY | 2024-06-18 08:47 | XMS_ITS | Encounter Summary ---
Author Organization [employer] Address [address] [place] [address] 7 [place] [address] Care Team Providers Care Personal Secretary Name Role Phone Cinthya Ray MD Primary Care Provider [phone] Mayito Acuña PharmD Unavailable [phone] Reason for Visit * Reason Onset Date Comments Med Refill 11/02/2023 Encounter Details Date Type Department Care Team (Late st Contact Info) Description 11/02/2023 Refill [facility] CHC MED & PEDS [address] [place], [place] [phone] Cinthya Ray MD [address] [place] [address] Type 2 diabetes mellitus with hyperglycemia, without long-term current use of insulin ([facility]) Social History Tobacco Use Types [...] [facility] ADULT DENT[facility] [address] [place] [address] Demario Bocanegra documented as of this encounter [...] current use of insulin ([facility]) documented in this encounter Additional Health Concerns Assessment Noted Time PHQ-9 Depression Total Score: 11 024 9:48 AM EDT documented as of this encounter Care Teams Personal Secretary Relationship Specialty Start Date End Date Cinthya Ray MD [address] [place] [address] PCP - General Family Medicine 10/23/11 Mayito Acuña PharmD [address] [place] [address] Pharmacist Internal Medicine 03/07/23 04/22/24 documented as of this encounter
--- OUTSIDE RECORDS SUMMARY | 2024-06-18 08:47 | XMS_ITS | Encounter Summary ---
Author Organization [facility] Address [address] [place] [address] 7 [place] [address] Care Team Providers Care Ceramic Plater Name Role Phone Cinthya Ray MD Primary Care Provider [phone] Mayito Acuña PharmD Unavailable Reason for Visit * Reason Comments Med Refill Encounter Details Date Type Department Care Team ([facility] Contact Info) Description 08/31/2022 Refill [facility] MEDICINE [address] [place] [address] Starla Nuñez MD [address] [place] [address] Injury of head, initial encounter Social History [...] Upcoming Encounters Date Type Department Care Team ([facility] Contact Info) Description 07/30/2024 3:00 PM EDT Office Visit [facility] ADULT DENTAL [address] [place] [address] Demario Bocanegra documented as of this encounter Visit Diagnoses Diagnosis Injury of head, initial encounter documented in this encounter Care Teams Ceramic Plater Relationship Specialty Start Date End Date Cinthya Ray MD [address] [place] [address] PCP - General Family Medicine 10/23/11 Mayito Acuña, Citlali [address] [place] [address] Pharmacist Internal Medicine 03/07/23 04/22/24 documented as of this encounter
== END 2024-06-18 08:49 | disposition home or self-care (01) ==
LOC: HO.HOS 08:31
PROVIDERS: PCP Family Medicine; Visit Provider Physician Assistant
DX: M75.42 Impingement syndrome of left shoulder (principal)
CPT/HCPCS: 99024

== ENCOUNTER → 2024-06-18 08:31 | Outpatient (BNVA) | payer MEDICAID, SELFPAY | PROVIDERS: PCP Family Medicine; Visit Provider Physician Assistant | DX: Z47.89 Encounter for other orthopedic aftercare (principal); Z98.890 Other specified postprocedural states | CPT/HCPCS: 99212 ==

== ENCOUNTER 2024-06-28 15:30 | Outpatient (AMB) | payer MEDICAID, SELFPAY ==
--- NOTE | 2024-06-28 15:32 | A.OFFVIS_ITS ---
Vital Signs 06/28/24 15:37 Height 5 ft 2 in Weight 171 lb 15.369 oz BMI 31.4 BP 80/58 L Blood Pressure Location Rt brachial Position Sitting Pulse 93 Pulse Source Pulse Oximeter Pulse Oximetry (%) 98 Oxygen Delivery Method Room Air Intake Visit Reasons: T2DM Intake Note: Patient presents today for a follow-up on Type 2 Diabetes Mellitus: Last Diabetic eye exam was on: DUE Last Podiatry exam was on: Patient does not see a Magnet Placer Most recent HbA1c: 6.5%, 04/30/2024 Random Glucose- 114 mg/dL, Today Utility System Operator Required: No Accompanied by: Self / Same As Patient Allergies Seasonal Allergies Allergy (Mild, Verified 06/28/24 15:35) Runny Nose Medication List - Last Reconciled 06/28/24 by Kimberly Isaac PA-C blood sugar diagnostic (FreeStyle Lite Strips) Use daily As directed to check blood glucose blood-glucose meter (FreeStyle Lite Meter kit) Use daily As directed to check blood sugars blood-glucose sensor (FreeStyle Uadrey 3 Plus Sensor device) Use daily As directed to monitor glucose blood-glucose,paper mill manager,cont (FreeStyle Audrey 3 [place]) Use daily As directed to monitor blood glucose insulin degludec (Tresiba FlexTouch U-100 insulin) 10 units subcut DAILY lancets (FreeStyle Lancets) use BID as directed to check blood glucose metformin 500 mg PO BID pantoprazole 40 mg PO DAILY sumatriptan succinate 25 mg PO Q2-4H PRN tirzepatide (Mounjaro) 10 mg (0.5 mL) subcut QWEEK HPI HPI T2DM: Details: Patient is a 34-year-old female with a significant past medical history of type 2 diabetes, obesity, depression and Sen's esophagus presenting today for follow up visit regarding diabetes. Endo: She was diagnosed with diabetes around age 26. Her last A1c was 6.5. She is currently on metformin 500 mg twice a day, Tresiba 10 units daily and mounjaro 10 mg weekly. In the past she has trialed Trulicity but had issues with supply at higher dose and had some nausea higher doses. States that she has never had issues with insurance covering Tresiba or metformin. cgm-in range 80%, hyperglycemic 20% She states that her blood sugars are getting better since her shoulder repair and being back on Mounjaro. She overall feels well and does not want to adjust her medication. CV: Blood pressure today is 80/58. Repeated blood pressure is similar. She is asymptomatic. She states her PCP is aware and that she has had multiple readings of low blood pressures. She is requesting a consult to Cardiology. She does not feel weak or dizzy right now.. [facility] Medical History Fatty liver GERD (gastroesophageal reflux disease) Anxiety Depression Insulin dependent type 2 diabetes mellitus Migraines BMI 32.0-32.9,adult Gallstones Body mass index (BMI) of 38.0 to 38.9 in adult Obesity Surgical History History of esophagogastroduodenoscopy (EGD) History of cholecystectomy H/O tubal ligation History of surgery on wrist Hx of section Family History Father HTN (hypertension) Mother No problems noted. Sister Arthritis Knee problem Sister Arthritis Allergies Knee problem Brother No problems noted. Brother No problems noted. Son No problems noted. Son Autism Family/Other Breast cancer Social History Household Members Other:: minor children Are you a primary gericare aide teacher to a significant other at home: Yes Do you presently have visiting nurse or other home services: No Alcohol intake: never Comment: counts correct Patient Tobacco Use Status: Never used Tobacco Current occupation: rt handed Physical Exam Vital Signs: Last Vital Signs Pulse 93 06/28/24 15:37 BP 80/58 L 06/28/24 15:37 Pulse Ox 98 06/28/24 15:37 Oxygen Delivery Method Room Air 06/28/24 15:37 BMI result Body Mass Index 31.4 Const Orientation/consciousness: patient oriented x3 HEENT Ears: hearing grossly normal bilaterally Neck Thyroid: Thyroid normal Lymphatic: no lymphadenopathy noted Resp Auscultation: clear to auscultation bilaterally Cardio Rate: regular rate Rhythm: regular rhythm Heart sounds: S1 normal heart sound present and S2 normal heart sound present Skin General skin exam: no rashes or lesions noted Neuro General: patient oriented x3, gait normal and no focal motor deficits Results Reviewed Results Reviewed: Laboratory Last Values Glucose (Clinic) 114 mg/dL (60-115) 06/28/24 15:41 Assessment & Plan Assessment & Plan (1) Type 2 diabetes mellitus: Code(s): E11.9 - Type 2 diabetes mellitus without complications Category: Medical Qualifiers: Diabetes mellitus truck terminal manager insulin use: with truck terminal manager use Diabetes mellitus complication status: without complication Qualified Code(s): E11.9 - Type 2 diabetes mellitus without complications; Z79.4 - terminal computer operator (current) use of insulin Plan: Continue current regimen. Does not have backup testing method. Ordered today. Recheck labs in 3 months Follow up at that time. Sooner if needed. Patient understands and agrees with this plan (2) Hypotension: Code(s): I95.9 - Hypotension, unspecified Category: Medical Plan: Referral to cardiology Orders: Orders Lipid Panel Today E11.9 - Type 2 diabetes mellitus without complications, I95.9 - Hypotension, unspecified Comprehensive [place]. Panel Fast Today E11.9 - Type 2 diabetes mellitus without complications, I95.9 - Hypotension, unspecified Hemoglobin A1c Today E11.9 - Type 2 diabetes mellitus without complications, I95.9 - Hypotension, unspecified, R73.01 - Impaired fasting glucose Microalbumin, Random (w Creat) Today E11.9 - Type 2 diabetes mellitus without complications, I95.9 - Hypotension, unspecified Referrals Cardiology Referral I95.9 - Hypotension, unspecified Medications: New blood-glucose,paper mill manager,cont (FreeStyle Audrey 3 [place]) Use daily As directed to monitor blood glucose 1 ea 0RF E11.65 - Type 2 diabetes mellitus with hyperglycemia, Z79.4 - shelter (current) use of insulin blood sugar diagnostic (FreeStyle Lite Strips) Use daily As directed to check blood glucose 100 ea 3RF E11.9 - Type 2 diabetes mellitus without complications blood-glucose,paper mill manager,cont (FreeStyle Audrey 3 [place]) Use daily As directed to monitor blood glucose 1 ea 0RF E11.65 - Type 2 diabetes mellitus with hyperglycemia, Z79.4 - shelter (current) use of insulin blood-glucose,paper mill manager,cont (FreeStyle Audrey 3 [place]) Use daily As directed to monitor blood glucose 1 ea 0RF E11.65 - Type 2 diabetes mellitus with hyperglycemia, Z79.4 - shelter (current) use of insulin lancets (FreeStyle Lancets) use BID as directed to check blood glucose 100 ea 3RF blood-glucose meter (FreeStyle Lite Meter kit) Use daily As directed to check blood sugars 1 ea 0RF E11.22 - Type 2 diabetes mellitus with diabetic chronic kidney disease, E11.9 - Type 2 diabetes mellitus without complications, Z79.4 - terminal computer operator (current) use of insulin lancets (FreeStyle Lancets) use BID as directed to check blood glucose 100 ea 3RF blood sugar diagnostic (FreeStyle Lite Strips) Use daily As directed to check blood glucose 100 ea 3RF E11.9 - Type 2 diabetes mellitus without complications blood-glucose meter (FreeStyle Lite Meter kit) Use daily As directed to check blood sugars 1 ea 0RF E11.22 - Type 2 diabetes mellitus with diabetic chronic kidney disease, E11.9 - Type 2 diabetes mellitus without complications, Z79.4 - terminal computer operator (current) use of insulin Coding Level of Care Code Est Pt Level 4 (61788) Complex EM visit Add On G2211 Diagnoses Type 2 diabetes mellitus without complication, with long-term current use of insulin E11.9; Z79.4 Diabetes mellitus shelter insulin use: with truck terminal manager use Diabetes mellitus complication status: without complication Hypotension I95.9
--- OUTSIDE RECORDS SUMMARY | 2024-06-28 15:33 | XMS_ITS | Encounter Summary ---
Author Organization [employer] Address [address] [facility] [address] [place] [address] Care Team Providers Care Restaurant Hour[employer] Team Member Name Role Phone Cinthya Ray MD Primary Care Provider [phone] Mayito Acuña PharmD Unavailable [phone] Encounter Details Date Type Department Care Team (Late st Contact Info) Description 03/05/2023 Orders Only [facility] [address] [place], [place] [phone] Cinthya Ray MD [address] [place], [place] [id number] Social History Tobacco Use Types Packs/Day Years [...] Description 07/30/2024 3:00 PM EDT Office Visit [facility] [address] [place] [address] Demario Bocanegra documented as of this encounter Goals Goal Patient Goal Type Associated Problems Recent Progress Patient-Stated? Author Blood Pressure < 140/90 Blood Pressure 118/83(2024 11:45 AM EDT) No Mayito Acuña, PharmDao Hemoglobin A1c < 7 Result Component 6.5( 3:35 PM EDT) No Mayito Acuña PharmD documented as of this encounter Visit Diagnoses Not on filedocumented in this encounter Care Teams Restaurant [employer] Team Member Relationship Specialty Start Date End Date Cinthya Ray MD [address] [place] [id number] PCP - General Family Medicine 10/23/11 Mayito Acuña PharmD [address] [place] [id number] Pharmacist Internal Medicine 03/07/23 04/22/24 documented as of this encounter
--- OUTSIDE RECORDS SUMMARY | 2024-06-28 15:33 | XMS_ITS | Clinical Summary ---
Author Organization [employer] Address [address] [place] [address] [place] [address] Care Team Providers Care Rug Sizer Name Role Phone Cinthya Ray MD Primary Care Provider [phone] Allergies No known active allergies Medications * This document contains information received from the source organization and may not represent a complete record from that organization. TRUEplus Lancets 33G miscIndications: Type 2 diabetes mellitus with hyperglycemia ([facility]) TEST BLOOD SUGAR FOUR TIMES DAILY 100 [...] FOR MILD PAIN 90 tablet 024 Active Glucose 2 g chewable tabletIndication s:Type 2 diabetes mellitus with hyperglycemia, with long-term current use of insulin ([facility]) Chew 2 g Once per day. To [...] hyperglycemia, with long-term current use of insulin ([facility]) INJECT ONE PEN (=7.5MG) SUBCUTANEOUSLY ONCE A WEEK DIRECTED 2 mL 5 025 Active metFORMIN XR (Glucophage-XR) 500 MG 24 hr tablet TAKE 2 TABLETS BY MOUTH TWICE DAILY WITH BREAKFAST AND WITH DINNER. DO NOT BREAK, CRUSH, 360 tablet 1 025 Active Continuous Glucose Domestic Maid (FreeStyle Audrey 3 [place]) deviceIndication s:Type 2 diabetes mellitus with hyperglycemia, with long-term current use of insulin ([facility]) 1 each Once per day. Use as directed for CGM 1 each 025 Active Continuous Glucose Sensor (FreeStyle Audrey 3 Plus Sensor) miscIndications: Type 2 diabetes mellitus with hyperglycemia, with long-term current use of insulin ([facility]) 1 each every 15 days. Apply 1 every 15 days as directed for CGM 2 each 025 Active insulin degludec (Tresiba FlexTouch) 100 UNIT/ML injectionIndicat ions:Type 2 diabetes mellitus with hyperglycemia, without long-term current use of insulin ([facility]) INJECT 35 UNITS SUBCUTANEOUSLY ONCE EVERY DAY, may increase by 2 units every 72 hours for fasting blood sugar above 130. MAX DAILY DOSE 45 UNITS PER DAY PATIENT CAN INJECT. 45 mL 3 025 Active insulin pen needle (BD Pen Needle Rowena 2nd Gen) 32G x 4 mm misc USE WITH INSULIN ONCE A DAY 100 each 025 Active ondansetron (Zofran) 4 MG tablet Take 1 tablet (4 mg) by mouth every 8 (eight) hours if needed for nausea or vomiting. 30 tablet 025 Active Continuous Glucose Sensor (FreeStyle Audrey 2 Sensor) misc Scan at least every 8 hours. Change sensor every 14 days. 2 each 1 025 Active Alcohol Swabs (Alcohol Prep) 70 % padsIndications: Type 2 diabetes mellitus with hyperglycemia ([facility]) Check blood sugar 4 times daily or as needed 100 each 11 025 Active SUMAtriptan (Imitrex) 25 MG tabletIndication s:Injury of head, initial encounter TAKE 1 TAB ORALLY AFTER MIGRAINE ONSET MAY REPEAT AFTER 2HRS IF HEADACHE RETURNS,MAX 200MG IN 24HRS 9 tablet 025 Active Alcohol Swabs (Alcohol Prep) 70 % padsIndications: Type 2 diabetes mellitus with hyperglycemia ([facility]) USE FOUR TIMES DAILY AND NEEDED 100 each 11 023 2024 Discontinued(R eorder (will not trigger notification to Pharmacy)) SUMAtriptan (Imitrex) 25 MG tabletIndication s:Injury of head, initial encounter TAKE 1 TAB ORALLY AFTER MIGRAINE ONSET MAY REPEAT AFTER 2HRS IF HEADACHE RETURNS,MAX 200MG IN 24HRS 9 tablet 024 2024 Discontinued(R eorder (will not trigger notification to Pharmacy)) fluconazole (Diflucan) 150 MG tablet Take 1 tablet (150 mg) by mouth 1 (one) time for 1 dose. 1 tablet 025 2024 terconazole (Terazol 7) 0.4 % vaginal cream Insert 1 applicator into the vagina at bedtime for 7 days. 45 g 025 2024 Active Problems Problem Noted Date [...] (05/04/2024 4:55 AM EDT): - following with [facility] - Dx impingement syndrome - completed [...] both her parents. She had services with [facility] for psychiatry and individual therapy, but lost [...] (11/30/2023 1:26 PM EDT): -Following with [facility], last seen on -06/30/23 EGD Sen esophagus with mild chronic active inflammation, stomach mild chronic inactive inflammation, normal duodenum. -Repeat EGD in 2 years -Continue pantoprazole Assessment & Plan (09/09/2023 6:00 AM EDT): -Following with [facility], last seen on -06/30/23 EGD [...] control - possibly due to COVID and/or TSELLA, will evaluate with sleep study Assessment & [...] a bariatric surgery and went [place] [facility]. She restarted going to [facility]. - She had worked with our diabetes education nurse, Ene Arias from Nov to Dec 2021. - Graduated from [facility]. - Eye exam: 01/28/24. [facility]. Nonregenerative diabetic retinopathy, bilateral, mild. [...] a bariatric surgery and went [place] [facility] She restarted going to [facility]. - She had worked with our diabetes education nurse, Ene Arias from Nov to Dec 2021. - Currently showing good attendance to [facility]; appreciated her effort - Eye exam: 01/24/23 [facility]. No diabetic retinopathy - Comprehensive [...] considering a bariatric surgery and went to [facility] management clinic - She had worked with our diabetes education nurse, Ene Arias from Nov to Dec 2021. - Currently showing good attendance to [facility]; appreciated her effort - Eye exam: 01/24/23 [facility]. No diabetic retinopathy - Comprehensive [...] a bariatric surgery and went [place] [facility] - She had worked with our diabetes education nurse, Ene Arias from Nov to Dec 2021. - Currently showing good attendance to [facility]; appreciated her effort - Eye exam: 01/24/23 [facility]. No diabetic retinopathy - Comprehensive [...] a bariatric surgery and went [place] [facility] - She had worked with our diabetes education nurse, Ene Arias from Nov to Dec 2021. - Currently showing good attendance to [facility]; appreciated her effort - Eye exam: 01/24/23 [facility]. No diabetic retinopathy - Comprehensive [...] a bariatric surgery and went [place] [facility] - She had worked with our diabetes education nurse, Ene Arias from Nov to Dec 2021. - Currently showing good attendance to [facility]; appreciated her effort - Eye exam: 01/24/23 [facility]. No diabetic retinopathy - Comprehensive [...] a bariatric surgery and went [place] [facility] - She had worked with our diabetes education nurse, Ene Arias from Nov to Dec 2021. - Refer to [facility] - Eye exam: 01/24/23 [facility]. No diabetic retinopathy - Comprehensive [...] a bariatric surgery and went [place] [facility] - She had worked with our diabetes education nurse, Ene Arias from Nov to Dec 2021. - Eye exam: 01/21/22 [facility]. No diabetic retinopathy - Comprehensive [...] a bariatric surgery and went [place] [facility] - She had worked with our diabetes education nurse, Ene Arias from Nov to Dec 2021. - Eye exam: 01/21/22 [facility]. No diabetic retinopathy - Comprehensive [...] a bariatric surgery and went [place] [facility] - She had worked with our diabetes education nurse, Ene Arias from Nov to Dec 2021. - Eye exam: 01/21/22 [facility]. No diabetic retinopathy - Comprehensive [...] a bariatric surgery and went to [facility] - She had worked with our diabetes education nurse, Ene Arias from Nov to Dec 2021. - Eye exam: 01/21/22 [facility]. No diabetic retinopathy - Comprehensive [...] a bariatric surgery and went to [facility] - She had worked with our diabetes education nurse, Ene Arias from Nov to Dec 2021. - Eye exam: 01/21/22 [facility]. No diabetic retinopathy - Comprehensive [...] a bariatric surgery and went to [facility] - She had worked with our diabetes education nurse, Ene Arias from Nov to Dec 2021. - Eye exam: 01/21/22 [facility]. No diabetic retinopathy - Comprehensive [...] 2021. - completed Partial Hospitalization Program at [facility] 11/09/21 - 11/23/21 - current medication: none -Previous medication treatment Hx: venlafaxine was self-discontinued; trazodone was prescribed by psychiatrist while she was attending [facility], but pt self-discontinued due to ineffectivenss; sertraline 50 mg daily, patient self-discontinued. - previously seeing [facility] clinician and waiting for psychiatrist, patient has not been engaged in behavioral health therapy currently. - contacted by [facility] behavioral health service and was referred to off-site service - patient has developed healthy coping skills Assessment & Plan (11/30/2023 1:22 PM EDT): - MDD vs. bipolar - severe exacerbation of Depression w/ SI in October 2021. - completed Partial Hospitalization Program at [facility] 11/09/21 - 11/23/21 - current medication: none -Previous medication treatment Hx: venlafaxine was self-discontinued; trazodone was prescribed by psychiatrist while she was attending [facility], but pt self-discontinued due to ineffectivenss; sertraline 50 mg daily, patient self-discontinued. - previously seeing [facility] clinician and waiting for psychiatrist, patient has not been engaged in behavioral health therapy currently. - contacted by [facility] service and was referred to off-site service - patient has developed healthy coping skills Assessment & Plan (03/07/2023 5:55 AM EST): - MDD vs. bipolar - severe exacerbation of Depression w/ SI in October 2021. - completed Partial Hospitalization Program at [facility] 11/09/21 - 11/23/21 - current medication: none -Previous medication treatment Hx: venlafaxine was self-discontinued; trazodone was prescribed by psychiatrist while she was attending [facility], but pt self-discontinued due to ineffectivenss; sertraline 50 mg daily, patient self-discontinued. - previously seeing [facility] clinician and waiting for psychiatrist, patient has not been engaged in behavioral health therapy currently. - will consider referring back Assessment & Plan (11/12/2022 4:17 PM EDT): - severe exacerbation of Depression w/ SI in October 2021. - completed Partial Hospitalization Program at [facility] 11/09/21 - 11/23/21 - Medication: Sertraline 50 mg daily -Previous medication treatment Hx: venlafaxine was self-discontinued; trazodone was prescribed by psychiatrist while she was attending [facility], but pt self-discontinued due to ineffectivenss - still on waiting list for outpatient appt with psychiatrist and therapist. - Able to contract her safety today - Continue BHS with [facility] Assessment & Plan (08/30/2022 12:43 PM EDT): - severe exacerbation of Depression w/ SI in October 2021. - completed Partial Hospitalization Program at [facility] 11/09/21 - 11/23/21 - Medication: Sertraline 50 mg daily -Previous medication treatment Hx: venlafaxine was self-discontinued; trazodone was prescribed by psychiatrist while she was attending [facility], but pt self-discontinued due to ineffectivenss - still on waiting list for outpatient appt with psychiatrist and therapist. - Able to contract her safety today - Continue BHS with [facility] Assessment & Plan (06/24/2022 11:25 AM EDT): - severe exacerbation of Depression w/ SI in October 2021. - completed Partial Hospitalization Program at [facility] 11/09/21 - 11/23/21 - Medication treatment Hx --venlafaxine was self-discontinued --trazodone was prescribed by psychiatrist while she was attending [facility], but pt self-discontinued due to ineffectivenss - still on waiting list for outpatient appt with psychiatrist and therapist. - Able to contract her safety today - Continue BHS with [facility] Assessment & Plan (05/21/2022 12:36 PM EDT): - severe exacerbation of Depression w/ SI in October 2021. - completed Partial Hospitalization Program at [facility] 11/09/21 - 11/23/21 - Medication treatment Hx --venlafaxine was self-discontinued --trazodone was prescribed by psychiatrist while she was attending [facility], but pt self-discontinued due to ineffectivenss - still on waiting list for outpatient appt with psychiatrist and therapist. - Able to contract her safety today - Continue BHS with [facility] Assessment & Plan (04/04/2022 7:17 PM EST): - severe exacerbation of Depression w/ SI in October 2021. - completed Partial Hospitalization Program at [facility] 11/09/21 - 11/23/21 - Medication treatment [...] 2021. - completed Partial Hospitalization Program at [facility] 11/09/21 - 11/23/21 - Medication treatment [...] - previously participated weight management program at [facility], recently started seeing them again. - goal of wieght being 171 lbs to get surgery done. - continue working on lifestyle modifications - associated comorbidity: STELLA, diabetes mellitus type 2 - continue GLP1RA - patient is restricting food intake and discussed about its harmful effect. She is on GLP1RA and is having side effects. Will try to consult with both cook pie and surgical weight loss provider. Surgical weight loss is not indicated and patient still may need to take medications. Assessment & Plan (01/27/2024 3:27 PM EST): - previously participated weight management program at [facility], recently started seeing them again. - goal of wieght being 171 lbs to get surgery done. - continue working on lifestyle modifications - associated comorbidity: STELLA, DM2 Assessment & Plan (11/26/2023 2:16 PM EDT): - previously participated weight management program [place] [facility] - continue working on lifestyle modifications - associated comorbidity: STELLA, DM2 Assessment & Plan (11/18/2022 7:07 AM EDT): - previously participated weight management program at [facility] - continue working on lifestyle modifications - associated comorbidity: STELLA, DM2 Assessment & Plan (04/04/2022 7:14 PM EST): - previously participated weight management program at [facility] - continue working on lifestyle modifications - associated comorbidity: STELLA, DM2 Assessment & Plan (02/22/2022 4:37 PM EST): - previously participated weight management program at [facility] - continue working on lifestyle modifications [...] Type Department Care Team Description 06/18/2024 Refill [facility] [address] [place] [address] Cinthya Ray MD Injury of head, initial encounter 06/18/2024 Refill [facility] [address] [place] [address] Cinthya Ray MD Type 2 diabetes mellitus with hyperglycemia ([facility]); Injury of head, initial encounter 06/09/2024 Orders Only [facility] [address] [place] [address] Abigail Darling CNM 06/08/[address] [address] Cinthya Ray MD Nurse Triage 06/07/2024 2:00 PM EDT Office Visit [facility] [address] [place] [phone] Abigail Darling CNM Vaginal discharge (Primary Dx) 06/07/2024 Travel 06/07/[address] [address] Cinthya Ray MD Nurse Triage 05/24/2024 Refill [facility] [address] [place] [address] Cinthya Ray MD 05/24/2024 Orders Only GENERIC EXTERNAL DATA DEPARTMENT Provider, Generic External Data 05/07/2024 Orders Only GENERIC EXTERNAL DATA DEPARTMENT Provider, Generic External Data 05/04/2024 Telephone [facility] [place] [address] Cinthya Ray MD Medication Question 05/03/2024 3:30 PM EDT Office Visit [address] [place] [address] Cinthya Ray MD Metabolic dysfunction-associat ed steatotic [...] DEPARTMENT Provider, Generic External Data 04/29/[address] [address] Fauzia Matamoros NP 04/29/[address] [address] Cinthya Ray MD chart prep 04/27/[address] [address] Cinthya Ray MD 04/26/2024 8:40 AM EDT Office Visit [facility] [address] [place] [phone] Fauzia Matamoros, MANNY Type 2 diabetes mellitus with hypoglycemia without coma, with long-term current use of insulin (CMS/HCC) (Primary Dx); Type 2 diabetes mellitus with hyperglycemia, without long-term current use of insulin (CMS/HCC) 04/26/2024 Refill [facility] [place] [address] Cinthya Ray MD 04/26/[address] [address] Rianna Solis, RN NTTS 04/26/[address] [address] Cinthya Ray MD 04/26/2024 Travel 04/26/2024 Refill [facility] [address] [place] [address] Fauzia Matamoros NP Type 2 diabetes mellitus with hyperglycemia, without long-term current use of insulin (CMS/HCC) 04/26/2024 Telephone [facility] [address] [place] [address] Cinthya Ray MD ER Follow-up; Nurse Triage 04/24/2024 Orders Only GENERIC EXTERNAL DATA DEPARTMENT Provider, Generic External Data 04/23/2024 3:30 PM EDT Telemedicine [facility] [address] [place] [address] Mayito Acuña, PharmD Type 2 diabetes mellitus with hyperglycemia, with long-term current use of insulin (CMS/HCC) (Primary Dx) 04/23/2024 Travel 04/23/2024 Population Health Risk Score [facility] () Department [address] [place] [phone] Provider, Population Health Generic 04/22/2024 Travel 04/19/2024 Orders Only [facility] [address] [place] [address] Cinthya Ray MD Type 2 diabetes mellitus with hyperglycemia, with long-term current use of insulin (CMS/HCC) (Primary Dx) 04/15/2024 Orders Only [facility] External Provider, [facility] 04/13/2024 Telephone [facility] [address] [place] [address] Lexis Spann MD 04/07/2024 Telephone [facility] [address] [place] [address] Lexis Spann MD 04/07/2024 Orders Only [facility] [address] [place] [address] Lexis Spann MD 04/06/2024 5:00 PM EST Office Visit [facility] [address] [place] [phone] Lexis Spann MD Lower urinary tract symptoms (LUTS) (Primary Dx); Vaginal discharge 04/06/2024 Orders Only [facility] [address] [place] [address] Lexis Spann MD 04/01/2024 Telephone [facility] [address] [place] [address] Rianna Solis RNloan review analyst from Last 3 Months Immunizations Immunization Administration Dates Next Due DTP 05/12/1997, 4,1992,08/16,1992 Hep A, Adult 03/14/2023,11/10/2017 Hep A, ped/adol, 2 dose 01/06/2012 Hep B, Adolescent or Pediatric 12/22/1995,1994,10/19/1993 Hib ([facility]) 05/14/1993, 3,1992,04/12 IPV 05/12/1997, 4,1992,04/12 Influenza [...] [facility] [address] [place] [address] Demario Bocanegra Health Maintenance Due Date Last [...] Additional history exists Lipid Panel 11/25/2024 11/26/2023, 03/2023, 06/11/2023, Additional history exists Eye Exam [...] coma, with long-term current use of insulin ([facility]) POCT GLUCOSE Routine 05/03/2024 3:35 PM EDT Type 2 diabetes mellitus with hypoglycemia without coma, with long-term current use of insulin ([facility]) GLUCOSE, WHOLE BLOOD Routine 04/30/2024 9:39 AM [...] hyperglycemia, with long-term current use of insulin ([facility]) BITEWING - SINGLE RADIOGRAPHIC IMAGE Routine 06/04/2023 [...] structure / Unknown 06/07/2024 12:15 PM EDT Impressions Abigail Darling CNM - 06/07/2024 12:15 PM EDT Vulvovaginal candidiasis Abigail Darling CNM POINT OF CARE TEST ENTER/ EDIT ORDERABLES Final Result * (ABNORMAL) Glucose, Whole Blood (05/24/2024 2:51 PM EDT) Only the most recent of3 resultswithin the time period is included. Glucose, Whole Blood 168(H) 60 - 115 mg/dL [facility] Comment:METER #: [id number] 5Testing performed in the Endocrinology Department [address] , [address], [facility]. 05/24/2024 2:51 PM EDT 05/24/2024 2:54 PM EDT us Generic External Data Provider LAB BLOOD ORDERAB LES Final Result [facility] [address] [place] [address] [phone] * (ABNORMAL) POCT glycosylated hemoglobin (Hgb A1c) (05/03/2024 3:35 PM EDT) Hemoglobin A1C 6.5(A) 4.0 - 6.0 % QC Media Lot # [id number] Lot# Expiration Date , 6 Blood Capillary blood specimen / Unknown [...] Whole Blood 103 60 - 115 mg/dL [facility] Comment:METER #: [id number] 8 04/24/2024 11:5 1 PM EDT 04/24/2024 11:55 PM EDT Generic External Data Provider LAB BLOOD ORDERAB LES Final Result [facility] [address] [place] [phone] * (ABNORMAL) CBC auto differential (04/24/2024 10:57 PM EDT) White Blood Count 9.2 4.8 - 10.8 X10*3/uL [facility] Red Blood Count 4.64 4.20 - 5.50 X10*6/uL [facility] Hemoglobin 11.5(L) 12.0 - 16.0 g/dl [facility] Hematocrit 34.9(L) 37.0 - 47.0 % [facility] Mean Corpuscular Volume 75.2(L) 80.0 - 98.0 fL [facility] Mean Corpuscular Hemoglobin 24.8(L) 27.0 - 33.0 pg [facility] Mean Corpuscular HGB Conc 33.0 31.0 - 35.0 g/dl [facility] Red Cell Distribution Width 15.3 11.0 - 16.0 % [facility] Platelet Count 281 160 - 400 X10*3/uL [facility] Mean Platelet Volume 9.0(L) 9.4 - 12.3 fL [facility] Neutrophils Percent Auto 59.8 45 - 73 % [facility] Imm Gran Pct Auto 0.3 0.0 - 0.4 % [facility] Lymphocytes Percent Auto 33.3 20 - 40 % [facility] Monocytes Percent Auto 5.0 2 - 11 % [facility] Eosinophils Percent Auto 1.2 0 - 4 % [facility] Basophils Percent Auto 0.4 0 - 2 % [facility] NRBC Pct Auto 0.0 0.0 - 0.2 /100WBC [facility] Neutrophils Absolute Auto 5.5 2.0 - 8.3 x10*3/uL [facility] Imm Gran Abs Auto 0.03 0.00 - 0.03 X10*3/uL [facility] Lymphocytes Absolute Auto 3.1 1.2 - 4.9 X10*3/uL [facility] Monocytes Absolute Auto 0.5 0.1 - 1.2 X10*3/uL [facility] Eosinophils Absolute Auto 0.1 0.0 - 0.4 X10*3/uL [facility] Basophils Absolute Auto 0.0 0.0 - 0.2 X10*3/uL [facility] NRBC Abs Auto 0.000 0.0 - 0.012 X10*3/uL [facility] 04/24/2024 10:5 7 PM EDT 04/24/2024 11:01 PM EDT us Generic External Data Provider LAB BLOOD ORDERAB LES Final Result [facility] [address] [place] [address] [phone] * (ABNORMAL) Comprehensive Metabolic Panel (04/24/2024 10:57 PM EDT) Sodium 142 135 - 145 mmol/L [facility] Potassium 3.9 3.3 - 5.1 mmol/L [facility] Chloride 109(H) 96 - 108 mmol/L [facility] Carbon Dioxide 24 22 - 29 mmol/L [facility] Anion Gap 13 12 - 20 [facility] Urea Nitrogen (BUN) 17(H) 9 - 16 mg/dL [facility] Creatinine, Serum 0.71 0.5 - 1.4 mg/dL [facility] Creatinine Clr Calc Pharmacy 110.9 [facility] Comment:Provided height and weight: 157.48 cm,79.379 kg.eGFR (calculated from the MDRD study equation) and eCrCl(calculated from the Cockcroft-Gault equation) are based ondifferent parameters and may not yield comparable results.If eCrCl result is absurd, please check patient'sheight/weight. Estimated Glomerular Filt Rate >60 [facility] Comment:Chronic Kidney Disea se: Estimated GFR < 60 mL/min/1.00m3Wgloxn Kidney Disease: Estimated GFR < 15 mL/min/1.73m2 Glucose 96 60 - 115 mg/dL [facility] Calcium 8.7 8.4 - 10.2 mg/dL [facility] Bilirubin, Total 0.3 0.0 - 1.0 mg/dL [facility] Aspartate Amino Transferase 22 5 - 31 U/L [facility] Alanine Aminotransferase 15 0 - 31 U/L [facility] Total Protein 7.5 6.5 - 8.0 g/dL [facility] Albumin Level 3.6 3.5 - 5.0 g/dL [facility] Alkaline Phosphatase 77 39 - 117 U/L [facility] 04/24/2024 10:5 7 PM EDT 04/24/2024 11:01 PM EDT us Generic External Data Provider LAB BLOOD ORDERAB LES Final Result [facility] [address], [place] [phone] * FL upper GI w air (04/15/2024 8:00 AM EST) Anatomical Region Laterality Modality Body Radiographic Viky ging 04/15/2024 8:00 AM EST Narrative 04/19/2024 1:33 PM EDT ? [facility] ?[address] ?[place] [address] ? Fluoroscopy Report ? Signed ? Patient: Sonali Gill ?MR#: ?? [id number] ? : 1990 ?Acct:[id number] ? Age/Sex: 34 / F ?ADM Date: 04/15/24 ? Loc: HO.XRAY ? Attending Dr: Nate Mijares MD ? Ordering Physician: Nate Mijares MD ?? Date of Service: 04/15/24 ?? Procedure(s): FL upper GI w air ?? Accession Number(s): [id number] ? cc: Nate Mijares MD; Cinthya Ray [...] DD/ 0800 ? TD/TT: 04/15/24 0820 ? Franchise Business Consultant: ? Procedure Note Donotaudieinterpreter, Image - 04/19/[address] [address] Fluoroscopy Report Signed Patient: Jeremy Gill#: [id number] : 1990Acct:[id number] Age/Sex: 34 / FADM Date: 04/15/24 Loc: [facility] Attending Dr: Nate Mijares MD Ordering Physician: Nate Mijares MD Date of Service: 04/15/24 Procedure(s): FL upper GI w air Accession Number(s): [id number] cc: Nate Mijares MD; Cinthya Ray MD [...] 04/19/24 1332 DD/ 0800 TD/TT: 04/15/24 0820 Franchise Business Consultant: [facility] External Provider IMG FLU OROSCOPY PROCEDURES [...] DETECTION BY PCR NOT DETECTED Not Detect [facility] BACTERIAL VAGINOSIS DETECTION BY PCR POSITIVE(A) Negative [facility] Comment:The BV organism targ ets [...] DETECTION BY PCR NOT DETECTED Not Detect [facility] Deyanira glab krusei PCR NOT DETECTED Not Detect [facility] 04/06/2024 5:04 PM EST 04/07/2024 11:23 AM EST us Lexis Spann MD LAB MICROBIOLOGY - GENER AL ORDERABLES Final Result [facility] [address] [place] [phone] * Chlamydia/N. Gonorrhoeae RNA, TMA, Urogenitial (04/06/2024 5:04 PM EST) CT PCR NOT DETECTED Not Detect. [facility] Comment:A not detected test result [...] psychologicalconsequences. NG PCR NOT DETECTED Not Detect. [facility] Comment:A not detected test result [...] 5:04 PM EST 04/07/2024 11:15 AM EST [facility] - 04/07/2024 1:26 PM EST Vaginal Lexis Spann MD LAB MICROBIOLOGY - GENER AL ORDERABLES Final Result Performing Organization Address [facility] Co de Phone Number [facility] [address] [place] [phone] * Culture, Urine, Routine (04/06/2024 12:00 AM EST) Urine Urine specimen obtained by clean catch procedure / Unknown 04/06/2024 04/06/2024 Comment:[facility] - 04/10/2024 7:29 AM EST [...] AL ORDERABLES Final Result Performing Organization Address [facility] Co de Phone Number [facility] [address] [place] [phone] * (ABNORMAL) Lipid Panel with Reflex to Direct LDL (11/26/2023 11:30 AM EDT) Triglycerides 145 <150 mg/dL [facility] Comment:Desirable Triglyceri de: less than 150 mg/dLBorderline High Triglyceride 150-199 mg/dLHigh Triglyceride: 200-499 mg/dLVery High Triglyceride: greater than or equal to 5OO mg/dL Cholesterol 152 <200 mg/dL [facility] Comment:Desirable Cholestero l: less than 200 mg/dLBorderline High Cholesterol: 200-239 mg/dLHigh Cholesterol: greater than 239 mg/dL LDL Cholesterol Calculated 91 <100 mg/dL [facility] Comment:Desirable LDL: less than 100 mg/dLNear Optimal/Above Optimal LDL: 110- 129 mg/dLBorderline High LDL: 130-159 mg/dLHigh LDL: 160-189 mg/dLVery High LDL: greater than or equal to 190 mg/dL HDL Cholesterol 32(L) >40 mg/dL [facility] Comment:Desirable HDL: great er than 40 mg/dL Note: This HDL assay may give artificially low results in patients with liver disease. Blood 11/26/2023 11:3 0 AM EDT 11/26/2023 1:20 PM EDT Cinthya Ray MD LAB BLOOD ORDERABLES Final Resul t Performing Organization Address [facility] Co de Phone Number [facility] [address] [place] [phone] * Hepatitis C Antibody with Reflex to HCV, RNA, Quantitative, Real-Time PCR (11/26/2023 11:30 AM EDT) Hepatitis C Antibody Nonreactive Nonreactive [facility] Comment:Antibodies to HCV no t detected; does not exclude early acuteHCV infection. Blood Venous blood specimen / Unknown 11/26/2023 11:30 AM EDT 11/26/2023 1:20 PM EDT us Cinthya Ray MD LAB BLOOD ORDERABLES Final Resul t Performing Organization Address [facility] Co de Phone Number [facility] [address] [place] [address] [phone] * HIV-1/2 Antigen and Antibodies, Fourth Generation, with Reflexes (11/26/2023 11:30 AM EDT) HIV AB/AG Nonreactive Nonreactive [facility] Comment:HIV-1 p24 Ag and/or HIV-1/HIV-2 Ab not detected.A test result that is nonreactive does not exclude thepossibility of exposure to or infection with HIV-1 and/orHIV-2. Nonreactive results in this assay for individualswith prior exposure to HIV-1 and/or HIV-2 may be due toantigen and antibody levels that are below the limit ofdetection of this assay.[employer] HIV Ag/Ab Combo assay result andsupplemental assay results should be interpreted inconjunction with the patient's clinical presentation,history and other laboratory results. If the results areinconsistent with clinical evidence, additional testing issuggested to confirm the result. Blood Venous blood specimen / Unknown 11/26/2023 11:30 AM EDT 11/26/2023 1:20 PM EDT us Cinthya Ray MD LAB BLOOD ORDERABLES Final Resul t [facility] [address] [place] [phone] * Albumin, Random Urine W/Creatinine (11/26/2023 12:00 AM EDT) Creatinine, Urine 238.24 mg/dL [facility] Microalbumin Urine 23.0 mg/L [facility] Microalbum Creatinine Ratio Ur 9.6 <30 ug/mg cr [facility] Comment:Albumin/Creatinine R atio Reference Ranges: Normal: < 30 ug/mg creatinine Microalbuminuria: 30 - 300 ug/mg creatinineClinical Albuminuria: > 300 ug/mg creatinine Urine 11/26/2023 11/26/2023 us Cinthya Sakurai MD LAB URINE ORDERABLES Final Resul t [facility] [address] [place] [address] [phone] * Hm Diabetes Eye Exam (01/24/2023) Eye Exam Normal Normal Comment:ora eye 01/24/2023 us Historical Provider MD HEALTH MAINTENANCE Final Result * THINPREP [...] has been evaluated with computer assisted technology. [facility] Straightening Machine Operator : SEE COMMENT [facility] Comment: MXD, CT (ASCP) CT screening location: [address] ??[phone] Interpretation/R esult: Negative for intraepithelial lesion or malignancy. [facility] LMP: NONE GIVEN [facility] Prev. BX: NONE GIVEN [facility] Prev. PAP: NONE [facility]IVEN [facility] SOURCE: None given [facility] Statement Of Adequacy: SEE COMMENT [facility] Comment: Satisfactory for evaluation. Endocervical/transformation zone component present. Age and/or menstrual status not provided 07/24/2021 4:01 PM EDT us Cinthya Ray MD LAB PATHOLOGY ORDERABLES Final R esult [facility] [address] from Last 3 Months or Most Recently Relevant to Health Maintenance Insurance [facility] C3 DENTAL-[facility] MEDICAID STAND ADULT Care Teams Rug Sizer Relationship Specialty Start Date End Date Cinthya Ray MD [address] [place] [address] PCP - General Family Medicine 10/23/11
--- OUTSIDE RECORDS SUMMARY | 2024-06-28 15:33 | XMS_ITS | Encounter Summary ---
Author Organization [employer] Address [address] [place] [address] Care Team Providers Care Boilermaker Industrial Boilers Name Role Phone Cinthya Ray MD Primary Care Provider [phone] Mayito Acuña PharmD Unavailable [phone] Reason for Visit * Reason Onset Date Comments callback request 12/30/2023 Encounter Details Date Type Department Care Team ([facility] st Contact Info) Description 12/30/2023 Telephone [facility] MED[facility] [address] [place], [place] [phone] Cinthya Ray MD [address] [place] [address] callback request Social History Tobacco Use Types [...] EST Tc from pt returning call from [facility] to book an appointment for follow up Callback [phone] documented in this encounter Plan of Treatment Upcoming Encounters Date Type Department Care Team (Late st Contact Info) Description 07/30/2024 3:00 PM EDT Office Visit [facility] [address] [place] [address] Demario Bocanegra documented as of this encounter [...] documented as of this encounter Care Teams Boilermaker Industrial Boilers Relationship Specialty Start Date End Date Cinthya Ray MD [address] [place] [address] PCP - General Family Medicine 10/23/11 Mayito Acuña, DyanD [address] [place] [address] Pharmacist Internal Medicine 03/07/23 04/22/24 documented as of this encounter
--- OUTSIDE RECORDS SUMMARY | 2024-06-28 15:33 | XMS_ITS | Encounter Summary ---
Author Organization [employer] Address [address] [facility] 7t [place] [address] Care Team Providers Care Plant Controls Specialist Name Role Phone Cinthya Ray MD Primary Care Provider [phone] Mayito Acuña PharmD Unavailable [phone] Encounter Details Date Type Department Care Team (Late st Contact Info) Description 08/05/2023 Orders Only [facility] MED & PEDS [address] [place] [address] Izzy Olvera FNP [address] [place] [address] Social History Tobacco Use Types Packs/Day Years [...] Description 07/30/2024 3:00 PM EDT Office Visit [facility] ADULT DENTAL [address] [place] [address] Demario Bocanegra documented as of this encounter [...] documented as of this encounter Care Teams Plant Controls Specialist Relationship Specialty Start Date End Date Cinthya Ray MD [address] [place] [address] PCP - General Family Medicine 10/23/11 Mayito Acuña PharmD [address] [place] [address] Pharmacist Internal Medicine 03/07/23 04/22/24 documented as of this encounter
--- OUTSIDE RECORDS SUMMARY | 2024-06-28 15:33 | XMS_ITS | Encounter Summary ---
Author Organization [employer] Address [address] [place] [address] Care Team Providers Care Court Commissioner Name Role Phone Cinthya Ray MD Primary Care Provider [phone] Mayito Acuña PharmD Unavailable [phone] Reason for Visit * Reason Onset Date Comments Med Refill 01/03/2023 Encounter Details Date Type Department Care Team (Late st Contact Info) Description 01/03/2023 Refill [facility] MED[facility]INE [address] [place], [place] [phone] Cinthya Ray MD [address] [place] [address] Social History Tobacco Use Types Packs/Day Years [...] [facility] ADULT DENTAL [address] [place] [address] Demario Bocanegra documented as of this encounter Visit Diagnoses Not on filedocumented in this encounter Care Teams Court Commissioner Relationship Specialty Start Date End Date Cinthya Ray MD [address] [place] [address] PCP - General Family Medicine 10/23/11 Mayito Acuña, DyanD [address] [place] [address] Pharmacist Internal Medicine 03/07/23 04/22/24 documented as of this encounter
--- OUTSIDE RECORDS SUMMARY | 2024-06-28 15:33 | XMS_ITS | Encounter Summary ---
Author Organization [employer] Address [address] [facility] 7 [place] [address] Care Team Providers Care Program Management Intern Name Role Phone Cinthya Ray MD Primary Care Provider [phone] Mayito Acuña PharmD Unavailable [phone] Encounter Details Date Type Department Care Team (Late st Contact Info) Description 03/05/2024 Orders Only [facility] MED[facility]INE [address] [place], [place] [phone] Cinthya Ray MD [address] [place], [place] [phone] Type 2 diabetes mellitus with other specified complication, with long-term current use of insulin ([facility]) (Primary Dx) Social History Tobacco Use [...] the past 12 months, has t he [employer], gas, oil or water company threatened to [...] [facility]ULT [facility] [address] [place] [address] Demario Bocanegra documented as of this encounter [...] complication, with long-term current use of insulin ([facility])- Primary documented in this encounter Additional Health Concerns Assessment Noted Time PHQ-9 Depression Total Score: 11 024 9:48 AM EDT documented as of this encounter Care Teams Program Management Intern Relationship Specialty Start Date End Date Cinthya Ray MD [address] [place] [address] PCP - General Family Medicine 10/23/11 Mayito Acuña, PharmD [address] [place] [address] Pharmacist Internal Medicine 03/07/23 04/22/24 documented as of this encounter
--- OUTSIDE RECORDS SUMMARY | 2024-06-28 15:33 | XMS_ITS | Encounter Summary ---
Author Organization [email or web address] Address [address] [facility] 7 [place] [address] Care Team Providers Care Divisional Human Resources Director Name Role Phone Cinthya Ray MD Primary Care Provider [phone] Mayito Acuña PharmD Unavailable [phone] Encounter Details Date Type Department Care Team (Late st Contact Info) Description 09/15/2023 Orders Only [facility] MEDICINE [address] [place], [place] [phone] Cinthya Ray MD [address] [place], [place] [phone] Type 2 diabetes mellitus with hyperglycemia, without long-term current use of insulin ([facility]) Social History Tobacco Use [...] [facility] ADULT D[facility] [address] [place] [address] Demario Bocanegra documented as of this encounter [...] use of insulin ([facility]) documented in this encounter Additional Health Concerns Assessment Noted Time PHQ-9 Depression Total Score: 0 09/10/19 9:01 AM EDT documented as of this encounter Care Teams Divisional Human Resources Director Relationship Specialty Start Date End Date Cinthya Ray MD [address] [place] [address] PCP - General Family Medicine 10/23/11 Mayito Acuña PharmD [address] [place] [address] Pharmacist Internal Medicine 03/07/23 04/22/24 documented as of this encounter
--- OUTSIDE RECORDS SUMMARY | 2024-06-28 15:33 | XMS_ITS | Encounter Summary ---
Author Organization [employer] [facility] Address [address] [place] [address] Care Team Providers Care Poly Area Supervisor Name Role Phone Cinthya Ray MD Primary Care Provider [phone] Mayito Acuña PharmD Unavailable [phone] Encounter Details Date Type Department Care Team ([facility] Contact Info) Description 02/26/2022 Abstract [facility] MEDICINE [address] [place] [address] Cinthya Ray MD [address] [place] [address] Social History Tobacco Use Types Packs/Day Years [...] Description 07/30/2024 3:00 PM EDT Office Visit [facility] ADULT DENTAL [address] [place] [address] Demario Bocanegra documented as of this encounter Visit Diagnoses Not on filedocumented in this encounter Care Teams Poly Area Supervisor Relationship Specialty Start Date End Date Cinthya Ray MD [address] [place] [address] PCP - General Family Medicine 10/23/11 Mayito Acuña, DyanD [address] [place] [address] Pharmacist Internal Medicine 03/07/23 04/22/24 documented as of this encounter
--- OUTSIDE RECORDS SUMMARY | 2024-06-28 15:33 | XMS_ITS | Encounter Summary ---
Author Organization [employer] Address [address] [place] [address] Care Team Providers Care Hand Rigger Name Role Phone Cinthya Ray MD Primary Care Provider [phone] Mayito Acuña PharmD Unavailable Reason for Referral * Consultation (Urgent) - Closed Specialty Diagnoses / Procedures Referred By Contac t Referred To Contact Endocrinology Diagnoses Type 2 diabetes mellitus with hyperglycemia, with long-term current use of insulin (CMS/HCC) Cinthya Ray MD [address] [place] [address] Phone: tel: fax: [facility] [place] [address] [place] [address] Phone: tel: fax: Referral ID Status Reason Start Date Expiration Date V isits Requested Visits Authorized [id number] Closed Specialty Services Required 04/19/2024 04/19/2025 12 12 Encounter Details Date Type Department Care Team (Late st Contact Info) Description 04/19/2024 Orders Only [facility] [address] [place], [place] [phone] Cinthya Ray MD [address] [place], [place] [phone] Type 2 diabetes mellitus with hyperglycemia, with [...] [facility]ULT [facility] [address] [place] [address] Demario Bocanegra Pending Results Name Type Priority Associated Diagnoses Date /Time Referral to Endocrinology Outpatient Referral Urgent Type 2 diabetes mellitus with hyperglycemia, with long-term current use of insulin ([facility]) 04/30/2024 Scheduled Referrals Name Type Priority Associated Diagnoses Order Schedule Referral to Endocrinology Outpatient Referral Urgent Type 2 diabetes mellitus with hyperglycemia, with long-term current use of insulin ([facility]) Expected: 04/19/2024 (Approximate), Expires: 04/19/2025 documented [...] hyperglycemia, with long-term current use of insulin ([facility])- Primary documented in this encounter Additional Health Concerns Assessment Noted Time PHQ-9 Depression Total Score: 11 024 9:48 AM EDT documented as of this encounter Care Teams Hand Rigger Relationship Specialty Start Date End Date Cinthya Ray MD [address] [place] [address] PCP - General Family Medicine 10/23/11 Mayito Acuña PharmD [address] [place] [address] Pharmacist Internal Medicine 03/07/23 04/22/24 documented as of this encounter
--- OUTSIDE RECORDS SUMMARY | 2024-06-28 15:33 | XMS_ITS | Encounter Summary ---
Author Organization [employer] Address [address] [facility] 7 [place] [address] Care Team Providers Care Production Cost Estimator Name Role Phone Cinthya Ray MD Primary Care Provider [phone] Mayito Acuña PharmD Unavailable [phone] Encounter Details Date Type Department Care Team (Late st Contact Info) Description 04/07/2024 Orders Only [facility] MEDICINE [address] [place], [place] [phone] Lexis Spann MD [address] [place], [place] [phone] Social History Tobacco Use Types Packs/Day Years [...] [facility] [address] [place] [address] Demario Bocanegra documented as of this encounter [...] documented as of this encounter Care Teams Production Cost Estimator Relationship Specialty Start Date End Date Cinthya Ray MD [address] [place] [address] PCP - General Family Medicine 10/23/11 Mayito Acuña PharmD [address] [place] [address] Pharmacist Internal Medicine 03/07/23 04/22/24 documented as of this encounter
--- OUTSIDE RECORDS SUMMARY | 2024-06-28 15:33 | XMS_ITS | Encounter Summary ---
Author Organization [employer] Address [address] [place] [address] 7 [place] [address] Care Team Providers Care Snowboarding Instructor Name Role Phone Cinthya Ray MD Primary Care Provider [phone] Mayito Acuña PharmD Unavailable [phone] Reason for Visit * Reason Onset Date Comments Med Refill 03/12/2024 Encounter Details Date Type Department Care Team (Late st Contact Info) Description 03/12/2024 Refill [facility] CHC MED & PEDS [address] [place], [place] [phone] Cinthya Ray MD [address] [place] [address] Type 2 diabetes mellitus with hyperglycemia, without long-term current use of insulin ([facility]) Social History [...] [facility] [address] [place] [address] Demario Bocanegra documented as of this encounter [...] hyperglycemia, without long-term current use of insulin ([facility]) documented in this encounter Additional Health Concerns Assessment Noted Time PHQ-9 Depression Total Score: 11 024 9:48 AM EDT documented as of this encounter Care Teams Snowboarding Instructor Relationship Specialty Start Date End Date Cinthya Ray MD [address] [place] [address] PCP - General Family Medicine 10/23/11 Mayito Acuña, DyanD [address] [place] [address] Pharmacist Internal Medicine 03/07/23 04/22/24 documented as of this encounter
--- OUTSIDE RECORDS SUMMARY | 2024-06-28 15:33 | XMS_ITS | Encounter Summary ---
Author Organization [employer] [facility] Address [address] [place] [address] Care Team Providers Care Culinary Manager Name Role Phone Cinthya Ray MD Primary Care Provider [phone] Mayito Acuña PharmD Unavailable [phone] Reason for Visit * Reason Onset Date Comments triage 04/10/2022 Encounter Details Date Type Department Care Team ([facility] st Contact Info) Description 04/10/2022 Telephone [facility] MEDICINE [address] [place], [place] [phone] Cinthya Ray MD [address] [place], [place] [phone] triage Social History Tobacco Use Types Packs/Day [...] 07/30/2024 3:00 PM EDT Office Visit [facility] ADULT DENTAL [address] [place] [address] Demario Bocanegra documented as of this encounter Visit Diagnoses Not on filedocumented in this encounter Care Teams Culinary Manager Relationship Specialty Start Date End Date Cinthya Ray MD [address] [place] [address] PCP - General Family Medicine 10/23/11 Mayito Acuña, DyanD [address] [place] [address] Pharmacist Internal Medicine 03/07/23 04/22/24 documented as of this encounter
--- OUTSIDE RECORDS SUMMARY | 2024-06-28 15:33 | XMS_ITS | Encounter Summary ---
Author Organization [employer] Address [address] [facility] 7t [place] [address] Care Team Providers Care Service Associate Name Role Phone Cinthya Ray MD Primary Care Provider [phone] Mayito Acuña PharmD Unavailable [phone] Encounter Details Date Type Department Care Team ([facility] Contact Info) Description 06/13/2022 Orders Only [facility] [address] [place], [place] [phone] Jerrica Girard FNP Social History Tobacco Use [...] Upcoming Encounters Date Type Department Care Team ([facility] Contact Info) Description 07/30/2024 3:00 PM EDT Office Visit [facility] CHC ADULT DENTAL [address] [place], [place] [phone] Demario Bocanegra documented as of this encounter Visit Diagnoses Not on filedocumented in this encounter Care Teams Service Associate Relationship Specialty Start Date End Date Cinthya Ray MD [address] [place] [address] PCP - General Family Medicine 10/23/11 Mayito Acuña, Citlali [address] [place] [address] Pharmacist Internal Medicine 03/07/23 04/22/24 documented as of this encounter
--- OUTSIDE RECORDS SUMMARY | 2024-06-28 15:33 | XMS_ITS | Encounter Summary ---
Author Organization [employer] Address [address] [place] [address] 7 [place] [address] Care Team Providers Care Parts Designer Name Role Phone Cinthya Ray MD Primary Care Provider [phone] Mayito Acuña PharmD Unavailable [phone] Reason for Visit * Reason Onset Date Comments Med Refill 10/30/2023 Encounter Details Date Type Department Care Team (Late st Contact Info) Description 10/30/2023 Refill [facility] CHC MED & PEDS [address] [place], [place] [phone] Cinthya Ray MD 230 [place] [address] Type 2 diabetes mellitus with hyperglycemia, without long-term current use of insulin ([facility]) Social History Tobacco Use Types [...] [facility] [address] [place] [address] Demario Bocanegra documented as of this encounter [...] hyperglycemia, without long-term current use of insulin ([facility]) documented in this encounter Additional Health Concerns Assessment Noted Time PHQ-9 Depression Total Score: 11 024 9:48 AM EDT documented as of this encounter Care Teams Parts Designer Relationship Specialty Start Date End Date Cinthya Ray MD [address] [place] [address] PCP - General Family Medicine 10/23/11 Mayito Acuña PharmD [address] [place] [address] Pharmacist Internal Medicine 03/07/23 04/22/24 documented as of this encounter
--- OUTSIDE RECORDS SUMMARY | 2024-06-28 15:33 | XMS_ITS | Encounter Summary ---
Author Organization [employer] Address [address] [facility] 7 [place] [address] Care Team Providers Care Vp Global Marketing Solutions Name Role Phone Cinthya Ray MD Primary Care Provider Encounter Details Date Type Department Care Team ([facility] st Contact Info) Description 06/09/2024 Orders Only [facility] MEDICINE [address] [place], [place] [phone] Abigail Darling, [facility] [address] [place], [place] [phone] Social History Tobacco Use Types Packs/Day Years [...] Description 07/30/2024 3:00 PM EDT Office Visit [facility] ADULT DENTAL [address] [place] [address] Demario Bocanegra documented as of this encounter [...] documented as of this encounter Care Teams Vp Global Marketing Solutions Relationship Specialty Start Date End Date Cinthya Ray MD 230 [place] [address] PCP - General Family Medicine 10/23/11 documented as of this encounter
--- OUTSIDE RECORDS SUMMARY | 2024-06-28 15:33 | XMS_ITS | Encounter Summary ---
Author Organization [employer] Address [address] [facility] 7 [place] [address] Care Team Providers Care Optoelectronics Engineer Name Role Phone Cinthya Ray MD Primary Care Provider [phone] Mayito Acuña PharmD Unavailable [phone] Encounter Details Date Type Department Care Team (Late st Contact Info) Description 01/31/2024 Orders Only [facility] MEDICINE [address] [place], [place] [phone] Cinthya Ray MD 230 [place], [place] [phone] Vitamin D deficiency (Primary Dx) Social History [...] 3:00 PM EDT Office Visit [facility] ADULT DENTAL 505 [place] [address] Demario Bocanegra documented as of this encounter [...] documented as of this encounter Care Teams Optoelectronics Engineer Relationship Specialty Start Date End Date Cinthya Ray MD 230 [place] [address] PCP - General Family Medicine 10/23/11 Mayito Acuña PharmD [address] [place] [address] Pharmacist Internal Medicine 03/07/23 04/22/24 documented as of this encounter
--- OUTSIDE RECORDS SUMMARY | 2024-06-28 15:33 | XMS_ITS | Encounter Summary ---
Author Organization [employer] Address [address] [place] [address] Care Team Providers Care Shirrer Name Role Phone Cinthya Ray MD Primary Care Provider [phone] Mayito Acuña PharmD Unavailable [phone] Reason for Referral * Consultation (Routine) - Closed Specialty Diagnoses / Procedures Referred By Ramya waller Referred To Contact Orthopaedic Surgery Diagnoses Chronic left shoulder pain Cinthya Ray MD [address] [place] [address] Phone: tel: fax: [facility] Orthopedics [address] [place] [address] Phone: tel: Referral ID Status Reason Start Date Expiration Date V isits Requested Visits Authorized [id number] Closed Specialty Services Required 02/05/2024 02/04/2025 6 6 Encounter Details Date Type Department Care Team (Late st Contact Info) Description 02/05/2024 Orders Only [facility] MEDICINE [address] [place] [phone] Cintyha Ray MD [address] [place], [place] [phone] Chronic left shoulder pain (Primary Dx) Social [...] [facility] [address] [place] [address] Demario Bocanegra Scheduled Referrals Name Type Priority [...] documented as of this encounter Care Teams Shirrer Relationship Specialty Start Date End Date Cinthya Ray MD [address] [place] [address] PCP - General Family Medicine 10/23/11 Mayito Acuña PharmD [address] [place] [address] Pharmacist Internal Medicine 03/07/23 04/22/24 documented as of this encounter
--- OUTSIDE RECORDS SUMMARY | 2024-06-28 15:33 | XMS_ITS | Encounter Summary ---
Author Organization [employer] Address [address] [place] [address] Care Team Providers Care Container Washer Machine Name Role Phone Cinthya Ray MD Primary Care Provider [phone] Mayito Acuña PharmD Unavailable [phone] Reason for Referral * Consultation (Routine) - Closed Specialty Diagnoses / Procedures Referred By Contcarly t Referred To Contact Pharmacy Diagnoses Type 2 diabetes mellitus with hyperglycemia, with long-term current use of insulin (CMS/HCC) Cinthya Ray MD [address] [place] [address] Phone: tel: fax: Referral ID Status Reason Start Date Expiration Date V isits Requested Visits Authorized [id number] Closed Consult and Treat 12/23/2023 12/22/2024 6 6 Encounter Details Date Type Department Care Team (Late st Contact Info) Description 12/23/2023 Orders Only [facility] MEDICINE [address] [place], [place] [phone] Cinthya Ray MD [address] [place], [place] [phone] Type 2 diabetes mellitus with hyperglycemia, with [...] Description 07/30/2024 3:00 PM EDT Office Visit [facility] CHC ADULT DENTAL [address] [place] [address] Demario Bocanegra Scheduled Referrals Name Type Priority Associated Diagnoses Orde r Schedule Referral to Pharmacy CDTM Outpatient Referral Routine Type 2 diabetes mellitus with hyperglycemia, with long-term current use of insulin ([facility]) Ordered: 12/23/2023 documented as of this encounter [...] hyperglycemia, with long-term current use of insulin ([facility])- Primary documented in this encounter Additional Health Concerns Assessment Noted Time PHQ-9 Depression Total Score: 11 024 9:48 AM EDT documented as of this encounter Care Teams Container Washer Machine Relationship Specialty Start Date End Date Cinthya Ray MD [address] [place] [address] PCP - General Family Medicine 10/23/11 Mayito Acuña PharmD [address] [place] [address] Pharmacist Internal Medicine 03/07/23 04/22/24 documented as of this encounter
--- OUTSIDE RECORDS SUMMARY | 2024-06-28 15:33 | XMS_ITS | Encounter Summary ---
Author Organization [employer] Address [address] [place] [address] Care Team Providers Care Floor Cashier Name Role Phone Cinthya Ray MD Primary Care Provider [phone] Mayito Acuña PharmD Unavailable [phone] Reason for Visit * Reason Onset Date Comments Results 12/09/2022 Encounter Details Date Type Department Care Team ([facility] st Contact Info) Description 12/09/2022 Telephone [facility] MEDICINE [address] [place], [place] [phone] Cinthya Ray MD [address] [place], [place] [phone] Results Social History Tobacco Use Types Packs/Day [...] to US results. Please contact pt at [phone] documented in this encounter Plan of Treatment Upcoming Encounters Date Type Department Care Team (Late st Contact Info) Description 07/30/2024 3:00 PM EDT Office Visit [facility] CHC ADULT DENTAL [address] [place] [address] Demario Bocanegra documented as of this encounter Visit Diagnoses Not on filedocumented in this encounter Care Teams Floor Cashier Relationship Specialty Start Date End Date Cinthya Ray MD [address] [place] [address] PCP - General Family Medicine 10/23/11 Mayito Acuña, DyanD [address] [place] [address] Pharmacist Internal Medicine 03/07/23 04/22/24 documented as of this encounter
--- OUTSIDE RECORDS SUMMARY | 2024-06-28 15:33 | XMS_ITS | Encounter Summary ---
Author Organization [employer] Address [address] [place] [address] [place] [address] Care Team Providers Care Music Library Assistant Name Role Phone Cinthya Ray MD Primary Care Provider [phone] Mayito Acuña PharmD Unavailable [phone] Reason for Visit * Reason Onset Date Comments Med Refill 08/06/2023 Encounter Details Date Type Department Care Team (Late st Contact Info) Description 08/06/2023 Refill [facility] MEDICINE 230 [place], [place] [phone] Cinthya Ray MD [address] [place] [address] Social History Tobacco Use Types Packs/Day Years [...] [facility] ADULT DENTAL [address] [place] [address] Demario Bocanegra documented as of this encounter [...] documented as of this encounter Care Teams Music Library Assistant Relationship Specialty Start Date End Date Cinthya Ray MD [address] [place] [address] PCP - General Family Medicine 10/23/11 Mayito Acuña PharmD [address] [place] [address] Pharmacist Internal Medicine 03/07/23 04/22/24 documented as of this encounter
--- OUTSIDE RECORDS SUMMARY | 2024-06-28 15:33 | XMS_ITS | Encounter Summary ---
Author Organization [employer] Address [address] [place] [address] 7 [place] [address] Care Team Providers Care Filing Writer Name Role Phone Cinthya Ray MD Primary Care Provider [phone] Mayito Acuña PharmD Unavailable [phone] Reason for Visit * Reason Onset Date Comments Med Refill 12/24/2023 Encounter Details Date Type Department Care Team (Late st Contact Info) Description 12/24/2023 Refill [facility] CHC MED & PEDS [address] [place], [place] [phone] Cinthya Ray MD 230 [place] [address] Type 2 diabetes mellitus with hyperglycemia, without long-term current use of insulin ([facility]) Social History Tobacco Use Types Packs/Day [...] 3:00 PM EDT Office Visit [facility] ADULT DENTAL [address] [place] [address] Demario Bocanegra documented as of this encounter [...] hyperglycemia, without long-term current use of insulin ([facility]) documented in this encounter Additional Health Concerns Assessment Noted Time PHQ-9 Depression Total Score: 11 024 9:48 AM EDT documented as of this encounter Care Teams Filing Writer Relationship Specialty Start Date End Date Cinthya Ray MD [address] [place] [address] PCP - General Family Medicine 10/23/11 Mayito Acuña, DyanD [address] [place] [address] Pharmacist Internal Medicine 03/07/23 04/22/24 documented as of this encounter
--- OUTSIDE RECORDS SUMMARY | 2024-06-28 15:33 | XMS_ITS | Encounter Summary ---
Author Organization [employer] Address [address] [facility] 7t [place] [address] Care Team Providers Care Control Systems Designer Name Role Phone Cinthya Ray MD Primary Care Provider [phone] Reason for Visit * Reason Onset Date Comments Med Refill 06/18/2024 Encounter Details Date Type Department Care Team (Late st Contact Info) Description 06/18/2024 Refill [facility] CHC MED & PEDS [address] [place], [place] [phone] Cinthya Ray MD 230 [place] [address] Injury of head, initial encounter Social History [...] 3:00 PM EDT Office Visit [facility] ADULT DENTAL [address] [place] [address] Demario Bocanegra documented as of this encounter [...] as of this encounter Care Teams Control Systems Designer Relationship Specialty Start Date End Date Cinthya Ray MD [address] [place] [address] PCP - General Family Medicine 10/23/11 documented as of this encounter
--- OUTSIDE RECORDS SUMMARY | 2024-06-28 15:33 | XMS_ITS | Encounter Summary ---
Author Organization [employer] Address [address] [place] [address] Care Team Providers Care Hot Strip Finisher Name Role Phone Cinthya Ray MD Primary Care Provider [phone] Mayito Acuña PharmD Unavailable [phone] Reason for Visit * Reason Onset Date Comments Medication Question 06/14/2022 Encounter Details Date Type Department Care Team ([facility] st Contact Info) Description 06/14/[address] [facility] MEDICINE 230 [place], [place] [phone] Cinthya Ray MD [address] [place] [address] Medication Question Social History Tobacco Use Types [...] [facility] ADULT DENT[facility] [address] [place] [address] Demario Bocanegra documented as of this encounter Visit Diagnoses Not on filedocumented in this encounter Care Teams Hot Strip Finisher Relationship Specialty Start Date End Date Cinthya Ray MD [address] [place] [address] PCP - General Family Medicine 10/23/11 Mayito Acuña, Citlali [address] [place] [address] Pharmacist Internal Medicine 03/07/23 04/22/24 documented as of this encounter
--- OUTSIDE RECORDS SUMMARY | 2024-06-28 15:33 | XMS_ITS | Encounter Summary ---
Author Organization [employer] Address [address] [facility] 7 [place] [address] Care Team Providers Care Hyster Machine Operator Name Role Phone Cinthya Ray MD Primary Care Provider [phone] Mayito Acuña PharmD Unavailable [phone] Encounter Details Date Type Department Care Team (Late st Contact Info) Description 06/30/2023 Orders Only [facility] MEDICINE 230 [place], [place] [phone] Mayito Acuña, PharmD [address] [place], [place] [phone] Type 2 diabetes mellitus with hyperglycemia, with long-term current use of insulin ([facility]) (Primary Dx) Social History Tobacco Use [...] [facility] ADULT DENTAL [address] [place] [address] Demario Bocanegra documented as of this encounter [...] long-term current use of insulin ([facility]) documented in this encounter Results * Hematoxylin and Eosin Stain (06/30/2023 12:47 PM EDT) 06/30/2023 12:4 7 PM EDT 06/30/2023 1:27 PM EDT [facility] LABS - 07/02/2023 9:30 AM EDT ----- ------- Name: Sonali Gill ?Age/Sex: 33/F ? : 1990 Unit#: [id number] ?? Attend Dr: Jose Figueroa MD ?Re06/30/23 ?Status: DEP SDC ? Location: HO.SSS ?Disch: ? ----- ------- SPEC : [id number] ? RECD: 06/30/23-1326 ? STATUS: ??SOUT ? REQ NUM: [id number] ? MELANIA: 06/30/23-1246 ? SUBM DR: Jose Figueroa MD ? ENTERED: ??06/30/23-8832 ?SP TYPE: Surgical ? OTHR DR: Cinthya [...] Gill ?Age/Sex: 33/F ? : 1990 Unit#: [id number] ?? Attend Dr: Jose Figueroa MD ?Re06/30/23 ?Status: DEP SDC ? Location: HO.SSS ?Disch: ? ----- ------- SPEC : [id number] ? RECD: 06/30/23-1326 ? STATUS: ??SOUT ? REQ NUM: [id number] ? MELANIA: 06/30/23-1247 ? SUBM DR: Jose Figueroa MD ? ENTERED: ??06/30/23-5188 ?SP TYPE: Surgical ? OTHR DR: Cinthya [...] To: ?? Jose Figueroa MD ?? [address] [facility] [address] ?? [place] [address] ?? [phone] ?? Cinthya Ray MD ?? [address] ?? [place] [address] ?? ----- ------- Signed (signature on file) Esa Aguiar MD 07/02/23 1132 ? ----- ------- ? END OF REPORT ? us Generic External Data Provider LAB BLOOD ORDERAB LES Final Result [facility] [address] [place] [address] [phone] documented in this encounter Visit Diagnoses Diagnosis Type 2 diabetes mellitus with hyperglycemia, with long-term current use of insulin ([facility])- Primary documented in this encounter Additional Health Concerns Assessment Noted Time PHQ-9 Depression Total Score: 0 06/10/19 24 2:55 PM EDT documented as of this encounter Care Teams Hyster Machine Operator Relationship Specialty Start Date End Date Cinthya Ray MD [address] [place] [address] PCP - General Family Medicine 10/23/11 Mayito Acuña, DyanD [address] [place] [address] Pharmacist Internal Medicine 03/07/23 04/22/24 documented as of this encounter
--- OUTSIDE RECORDS SUMMARY | 2024-06-28 15:34 | XMS_ITS | Encounter Summary ---
Author Organization [employer] Address [address] [place] [address] [address] Care Team Providers Care Fire Support Man Name Role Phone Cinthya Ray MD Primary Care Provider [phone] Mayito Acuña PharmD Unavailable [phone] Reason for Visit * Reason Onset Date Comments Appointment Request 09/02/2022 Encounter Details Date Type Department Care Team ([facility] st Contact Info) Description 09/02/2022 Telephone C [facility] MED [facility] PEDS [address] [place], [place] [phone] Cinthya Ray MD [address] [place] [address] Appointment Request Social History Tobacco Use Types [...] her kidney failure.' Please contact pt at [phone] documented in this encounter Plan of Treatment Upcoming Encounters Date Type Department Care Team (Late st Contact Info) Description 07/30/2024 3:00 PM EDT Office Visit [facility] ADULT DENTAL [address] [place] [address] Demario Bocanegra documented as of this encounter Visit Diagnoses Not on filedocumented in this encounter Care Teams Fire Support Man Relationship Specialty Start Date End Date Cinthya Ray MD [address] [place] [address] PCP - General Family Medicine 10/23/11 Mayito Acuña, DyanD [address] [place] [address] Pharmacist Internal Medicine 03/07/23 04/22/24 documented as of this encounter
--- OUTSIDE RECORDS SUMMARY | 2024-06-28 15:34 | XMS_ITS | Clinical Summary ---
Author Organization [facility] Address [address] [place] [address] Phone Care Team Providers Care Bee Rancher Name Role Phone Unavailable Primary Care Provider Unavailabl e Allergies No known active allergies Medical History Medical History Date Comments Diabetes mellitus ([facility], [facility] V28) Social History Tobacco Use Types Packs/Day [...]
--- OUTSIDE RECORDS SUMMARY | 2024-06-28 15:34 | XMS_ITS | Encounter Summary ---
Author Organization [employer] Address [address] [place] [address] [place] [address] Care Team Providers Care Rail Filler Name Role Phone Cinthya Ray MD Primary Care Provider [phone] Mayito Acuña PharmD Unavailable [phone] Reason for Visit * Reason Onset Date Comments Med Refill 10/30/2023 Encounter Details Date Type Department Care Team (Late st Contact Info) Description 10/30/2023 Refill [facility] MEDICINE [address] [place], [place] [phone] Cinthya Ray MD [address] [place] [address] Social History Tobacco Use Types Packs/Day Years [...] Description 07/30/2024 3:00 PM EDT Office Visit [facility] ADULT DENTAL [address] [place] [address] Demario Bocanegra documented as of this encounter [...] documented as of this encounter Care Teams Rail Filler Relationship Specialty Start Date End Date Cinthya Ray MD [address] [place] [address] PCP - General Family Medicine 10/23/11 Mayito Acuña PharmD [address] [place] [address] Pharmacist Internal Medicine 03/07/23 04/22/24 documented as of this encounter
--- OUTSIDE RECORDS SUMMARY | 2024-06-28 15:34 | XMS_ITS | Encounter Summary ---
Author Organization [employer] Address [address] [place] [address] 7 [place] [address] Care Team Providers Care Sales And Marketing Coordinator Name Role Phone Cinthya Ray MD Primary Care Provider Mayito Acuña PharmD Unavailable [phone] Reason for Visit * Reason Onset Date Comments Med Refill 09/29/2023 Encounter Details Date Type Department Care Team (Late st Contact Info) Description 09/29/2023 Refill [facility] MED & PEDS [address] [place], [place] [phone] Cinthya Ray MD [address] [place] [address] Type 2 diabetes mellitus with hyperglycemia, without long-term current use of insulin ([facility]) Social History [...] AM EDT documented as of this encounter Functional Status * Over the past 2 weeks, how often have you been bothered by any of the following problems? Question Answer Date of Assessment Author Patient Health Questionnaire -2 Score 4 09/29/2023 9:48 AM EDT Swati Ortiz * If you checked off any problems on this questionnaire so far, Question Answer Date of Assessment Author How difficult have these problems made it for you to do your work, take care of things at home, or get along with other people? Very difficult 09/29/2023 9:48 AM Swati Payton * Over the past 2 weeks, how often have you been bothered by any of the following problems? Question Answer Date of Assessment Author Little interest or pleasure in doing things More than half the days 09/29/2023 9:48 AM Evelia Payton Feeling down, depressed, or hopeless More than half the days 09/29/2023 9:48 AM Evelia Payton Trouble falling or staying asleep, or sleeping too much Several days 09/29/2023 9:48 AM Evelia Payton Feeling tired or having little energy More than half the days 09/29/2023 9:48 AM Evelia Payton Poor appetite or overeating Not at all 09/29/2023 9:48 AM EDT Evelia Ortiz Feeling bad about yourself - or that you are a failure or have let yourself or your family down Several days 09/29/2023 9:48 AM EDT Evelia Ortiz Trouble concentrating on things, such as reading the newspaper or watching television More than half the days 09/29/2023 9:48 AM EDT Evelia Ortiz Moving or speaking so slowly that other people could have noticed? Or the opposite - being so fidgety or restless that you have been moving around a lot more than usual. Several days 09/29/2023 9:48 AM EDT Evelia Ortiz Thoughts that you would be better off or hurting yourself in some way Not at all 09/29/2023 9:48 AM EDT Evelia Ortiz Patient Health Questionnaire-9 Score 11 09/29/2023 9:48 AM EDT Evelia Ortiz documented as of this encounter Plan of Treatment Upcoming Encounters Date Type Department Care Team (Late st Contact Info) Description 07/30/2024 3:00 PM EDT Office Visit [facility] ADULT DENTAL [address] [place] [address] Demario Bocanegra documented as of this encounter [...] current use of insulin ([facility]) documented in this encounter Additional Health Concerns Assessment Noted Time PHQ-9 Depression Total Score: 11 024 9:48 AM EDT documented as of this encounter Care Teams Sales And Marketing Coordinator Relationship Specialty Start Date End Date Cinthya Ray MD [address] [place] [address] PCP - General Family Medicine 10/23/11 Mayito Acuña, PharmD [address] [place] [address] Pharmacist Internal Medicine 03/07/23 04/22/24 documented as of this encounter
--- OUTSIDE RECORDS SUMMARY | 2024-06-28 15:34 | XMS_ITS | Encounter Summary ---
Author Organization [employer] Address [address] [place] [address] 7 [place] [address] Care Team Providers Care Port Cdl A Driver Name Role Phone Cinthya Ray MD Primary Care Provider [phone] Mayito Acuña PharmD Unavailable [phone] Reason for Visit * Reason Onset Date Comments Med Refill 11/02/2023 Encounter Details Date Type Department Care Team (Late st Contact Info) Description 11/02/[address] [facility] CH[facility] MED & PEDS [address] [place], [place] [phone] Cinthya Ray MD [address] [place] [address] Type 2 diabetes mellitus with hyperglycemia, without long-term current use of insulin ([facility]) Social History Tobacco Use Types Packs/Day Years [...] [facility] ADULT D[facility] [address] [place] [address] Demario Bocanegra documented as of this encounter [...] hyperglycemia, without long-term current use of insulin ([facility]) documented in this encounter Additional Health Concerns Assessment Noted Time PHQ-9 Depression Total Score: 11 024 9:48 AM EDT documented as of this encounter Care Teams Port Cdl A Driver Relationship Specialty Start Date End Date Cinthya Ray MD [address] [place] [address] PCP - General Family Medicine 10/23/11 Mayito Acuña PharmD [address] [place] [address] Pharmacist Internal Medicine 03/07/23 04/22/24 documented as of this encounter
--- OUTSIDE RECORDS SUMMARY | 2024-06-28 15:34 | XMS_ITS | Encounter Summary ---
Author Organization [employer] Address [address] [place] [address] [place] [address] Care Team Providers Care Business Project Manager Name Role Phone Cinthya Ray MD Primary Care Provider [phone] Mayito Acuña PharmD Unavailable [phone] Reason for Visit * Reason Onset Date Comments Med Refill 11/02/2023 Encounter Details Date Type Department Care Team (Late st Contact Info) Description 11/02/2023 Refill [facility] [address] [place], [place] [phone] Cinthya Ray MD [address] [place] [address] Social History Tobacco Use Types Packs/Day Years [...] but unableto make. Pt will come to [facility] today open till 8pm. Pt [...] Gill Sent: 11/10/2023 5:32 PM EDT To: [facility] Front Office Subject: Appointment Request Appointment Request From: Sonali Rosa With Provider: Cinthya Ray MD [[facility]] Preferred Date Range: 11/11/2023 - 11/13/2023 [...] [facility]ULT [facility] [address] [place] [address] Demario Bocanegra documented as of this encounter [...] documented as of this encounter Care Teams Business Project Manager Relationship Specialty Start Date End Date Cinthya Ray MD [address] [place] [address] PCP - General Family Medicine 10/23/11 Mayito Acuña PharmD [address] [place] [address] Pharmacist Internal Medicine 03/07/23 04/22/24 documented as of this encounter
--- OUTSIDE RECORDS SUMMARY | 2024-06-28 15:34 | XMS_ITS | Encounter Summary ---
Author Organization [employer] [facility] Address [address] [place] [address] 7 [place] [address] Care Team Providers Care Caddy Name Role Phone Cinthya Ray MD Primary Care Provider [phone] Mayito Acuña PharmD Unavailable [phone] Reason for Visit * Reason Comments Med Refill Encounter Details Date Type Department Care Team ([facility] Contact Info) Description 08/31/2022 Refill [facility] [address] [place] [address] Starla Nuñez MD [address] [place] [address] Injury of head, initial encounter Social History [...] Upcoming Encounters Date Type Department Care Team ([facility] Contact Info) Description 07/30/2024 3:00 PM EDT Office Visit [facility] ADULT DENTAL [address] [place] [address] Demario Bocanegra documented as of this encounter Visit Diagnoses Diagnosis Injury of head, initial encounter documented in this encounter Care Teams Caddy Relationship Specialty Start Date End Date Cinthya Ray MD [address] [place] [address] PCP - General Family Medicine 10/23/11 Mayito Acuña, Citlali [address] [place] [address] Pharmacist Internal Medicine 03/07/23 04/22/24 documented as of this encounter
--- OUTSIDE RECORDS SUMMARY | 2024-06-28 15:34 | XMS_ITS | Encounter Summary ---
Author Organization [employer] Address [address] [place] [address] Care Team Providers Care Sign Builder Supervisor Name Role Phone Cinthya Ray MD Primary Care Provider [phone] Mayito Acuña PharmD Unavailable [phone] Reason for Visit * Reason Onset Date Comments Med Refill 09/29/2023 Encounter Details Date Type Department Care Team (Late st Contact Info) Description 09/29/2023 Refill [facility] MEDICINE [address] [place], [place] [phone] Cinthya Ray MD [address] [place] [address] Type 2 diabetes mellitus with hyperglycemia, without long-term current use of insulin ([facility]) Social History Tobacco Use Types [...] other people? Very difficult 09/29/2023 9:48 AM EDT Swati Ortiz * Over the past 2 weeks, how [...] [facility] ADULT [facility] [address] [place] [address] Demario Bocanegra documented as of this encounter [...] current use of insulin ([facility]) documented in this encounter Additional Health Concerns Assessment Noted Time PHQ-9 Depression Total Score: 11 024 9:48 AM EDT documented as of this encounter Care Teams Sign Builder Supervisor Relationship Specialty Start Date End Date Cinthya Ray MD [address] [place] [address] PCP - General Family Medicine 10/23/11 Mayito Acuña, PharmD [address] [place] [address] Pharmacist Internal Medicine 03/07/23 04/22/24 documented as of this encounter
--- OUTSIDE RECORDS SUMMARY | 2024-06-28 15:34 | XMS_ITS | Encounter Summary ---
Author Organization [employer] Address [address] [facility] 7 [place] [address] Care Team Providers Care Family Resource Management Specialist Name Role Phone Cinthya Ray MD Primary Care Provider [phone] Reason for Visit * Reason Comments Med Refill Encounter Details Date Type Department Care Team ([facility] st Contact Info) Description 04/26/2024 Refill [facility] MED[facility] [address] [place], [place] [phone] Cinthya Ray MD [address] [place], [place] [phone] Social History Tobacco Use Types Packs/Day Years [...] [facility] ADULT DENTAL [address] [place] [address] Demario Bocanegra documented as of this encounter [...] as of this encounter Care Teams Family Resource Management Specialist Relationship Specialty Start Date End Date Cinthya Ray MD [address] [place] [address] PCP - General Family Medicine 10/23/11 documented as of this encounter
[2024-06-28 15:37] VITALS: BP 80/58; PULSE 93; O2SAT 98; BMI 31.4
[2024-06-28 15:44] LABS: Glucose, Whole Blood 114 mg/dL (60-115)
== END 2024-06-28 16:04 | disposition home or self-care (01) ==
LOC: HO.ENCR 15:30
PROVIDERS: PCP Family Medicine; Visit Provider Physician Assistant
DX: E11.9 Type 2 diabetes mellitus without complications (principal); Z79.4 Long term (current) use of insulin; I95.9 Hypotension, unspecified

== ENCOUNTER → 2024-06-28 15:30 | Outpatient (BNVA) | payer MEDICAID, SELFPAY | PROVIDERS: PCP Family Medicine; Visit Provider Physician Assistant | DX: E11.9 Type 2 diabetes mellitus without complications (principal); I95.9 Hypotension, unspecified; Z79.4 Long term (current) use of insulin | CPT/HCPCS: 82947; 99212 ==

== ENCOUNTER 2024-07-13 14:16 | Outpatient (AMB) | payer MEDICAID, SELFPAY ==
--- NOTE | 2024-07-13 14:22 | A.OFFVIS_ITS ---
Intake Visit Reasons: PO LT Shoulder 06/04/24 Intake Note: Sonali presents with complaints of mild intermittent discomfort in her left shoulder after undergoing left shoulder arthroscopic surgery on 06/04/2024. She is no longer taking narcotics for her discomfort. She continues with her home stretching program. She denies any fevers or chills. Allergies Seasonal Allergies Allergy (Mild, Verified 07/13/24 14:22) Runny Nose Medication List - Last Reconciled 07/13/24 by Al Hays MD blood sugar diagnostic (FreeStyle Lite Strips) Use daily As directed to check blood glucose blood-glucose meter (FreeStyle Lite Meter kit) Use daily As directed to check blood sugars blood-glucose sensor (FreeStyle Audrey 3 Plus Sensor device) Use daily As dir ected to monitor glucose blood-glucose,decorating consultant,cont (FreeStyle Audrey 3 [place]) Use daily As directed to monitor blood glucose insulin degludec (Tresiba FlexTouch U-100 insulin) 10 units subcut DAILY lancets (FreeStyle Lancets) use BID as directed to check blood glucose metformin 500 mg PO BID pantoprazole 40 mg PO DAILY sumatriptan succinate 25 mg PO Q2-4H PRN tirzepatide (Mounjaro) 10 mg (0.5 mL) subcut QWEEK [facility] Medical History Fatty liver GERD (gastroesophageal reflux disease) Anxiety Depression Insulin dependent type 2 diabetes mellitus Migraines BMI 32.0-32.9,adult Gallstones Body mass index (BMI) of 38.0 to 38.9 in adult Obesity Surgical History History of esophagogastroduodenoscopy (EGD) History of cholecystectomy H/O tubal ligation History of surgery on wrist Hx of section Family History Father HTN (hypertension) Mother No problems noted. Sister Arthritis Knee problem Sister Arthritis Allergies Knee problem Brother No problems noted. Brother No problems noted. Son No problems noted. Son Autism Family/Other Breast cancer Social History Household Members Other:: minor children Are you a primary caregivers non medical to a significant other at home: Yes Do you presently have visiting nurse or other home services: No Alcohol intake: never Comment: counts correct Patient Tobacco Use Status: Never used Tobacco Current occupation: rt handed Physical Exam Const Other: Well-nourished well-developed very friendly female awake alert and oriented x3 in no acute distress Extrem Other: Left shoulder examination shows that the surgical incisions are well healed, no erythema, almost full range of motion when compared to her right shoulder, mild discomfort with range of motion, no instability Assessment & Plan Assessment & Plan (1) Left shoulder pain: Code(s): M25.512 - Pain in left shoulder Category: Medical Plan Ms. Jose Rosa continues to do very well after undergoing left shoulder arthroscopic surgery on 06/04/2024. She will continue with her home stretching program. The do's and don'ts of lifting were discussed at length with the patient. She will contact me prior to her follow-up appointment in 3 months should any questions or concerns arise. Feel free to call me at any time should questions regarding her orthopedic management arise. Coding Level of Care Code Global (14599) Diagnoses Left shoulder pain M25.512
--- OUTSIDE RECORDS SUMMARY | 2024-07-13 16:05 | XMS_ITS | Encounter Summary ---
Author Organization [employer] [facility] Address [address] [place] [address] Care Team Providers Care Equine Vet Name Role Phone Cinthya Ray MD Primary Care Provider Mayito Acuña PharmD Unavailable [phone] Encounter Details Date Type Department Care Team ([facility] Contact Info) Description 02/26/2022 Abstract [facility] MEDICINE [address] [place] [address] Cinthya Ray MD [address] [place] [address] Social History Tobacco Use Types Packs/Day Years [...] Description 07/30/2024 3:00 PM EDT Office Visit [facility] ADULT DENTAL [address] [place] [address] Demario Bocanegra documented as of this encounter Visit Diagnoses Not on filedocumented in this encounter Care Teams Equine Vet Relationship Specialty Start Date End Date Cinthya Ray MD [address] [place] [address] PCP - General Family Medicine 10/23/11 Mayito Acuña, DyanD [address] [place] [address] Pharmacist Internal Medicine 03/07/23 04/22/24 documented as of this encounter
== END 2024-07-13 14:27 | disposition home or self-care (01) ==
LOC: HO.HOS 14:17
PROVIDERS: PCP Family Medicine; Visit Provider Orthopaedic Surgery
DX: M25.512 Pain in left shoulder (principal)
CPT/HCPCS: 99024

== ENCOUNTER → 2024-07-13 14:16 | Outpatient (BNVA) | payer MEDICAID, SELFPAY | PROVIDERS: PCP Family Medicine; Visit Provider Orthopaedic Surgery | DX: M25.512 Pain in left shoulder (principal) | CPT/HCPCS: 99212 ==

== ENCOUNTER 2024-07-21 11:20 | Outpatient (REF) | payer MEDICAID, SELFPAY ==
--- OUTSIDE RECORDS SUMMARY | 2024-07-22 13:24 | XMS_ITS | Encounter Summary ---
Author Organization [facility] [facility] Address [address] [place] [address] Care Team Providers Care Lead Refiner Name Role Phone Cinthya Ray MD Primary Care Provider [phone] Mayito Acuña PharmD Unavailable [phone] Encounter Details Date Type Department Care Team ([facility] Contact Info) Description 02/26/2022 Abstract [facility] MEDICINE [address] [place] [address] Cinthya Ray MD [address] [place] [address] Social History Tobacco Use Types Packs/Day Years [...] Description 07/30/2024 3:00 PM EDT Office Visit [facility] ADULT DENTAL [address] [place] [address] Demario Bocanegra documented as of this encounter Visit Diagnoses Not on filedocumented in this encounter Care Teams Lead Refiner Relationship Specialty Start Date End Date Cinthya Ray MD [address] [place] [address] PCP - General Family Medicine 10/23/11 Mayito Acuña, DyanD [address] [place] [address] Pharmacist Internal Medicine 03/07/23 04/22/24 documented as of this encounter
[2024-07-22 13:46] LABS: Bacterial Vaginosis PCR NEGATIVE (Negative); Candida Group PCR DETECTED (Not Detect); Candida glab krusei PCR NOT DETECTED (Not Detect); Trichomonas vaginalis PCR NOT DETECTED (Not Detect)
[2024-07-22 14:19] LABS: CT PCR NOT DETECTED (Not Detect.); NG PCR NOT DETECTED (Not Detect.)
== END 2024-07-21 11:21 | disposition home or self-care (01) ==
LOC: HO.HHCLNP 11:20
PROVIDERS: Visit Provider Nurse Practitioner
DX: N94.9 Unspecified condition associated with female genital organs and menstrual cycle (principal)
CPT/HCPCS: 81515; 87491; 87591

== ENCOUNTER 2024-08-23 09:53 | Outpatient (AMB) | payer MEDICAID, SELFPAY ==
--- NOTE | 2024-08-23 09:58 | A.OFFVIS_ITS ---
Vital Signs 08/23/24 10:00 Height 5 ft 2 in Weight 187 lb 9.814 oz BMI 34.3 BP 90/60 Blood Pressure Location Lt brachial Position Sitting Pulse 96 Pulse Source Pulse Oximeter Pulse Oximetry (%) 99 Oxygen Delivery Method Room Air Intake Visit Reasons: T2DM side effects Intake Note: Patient present today for Type 2 Diabetes Mellitus Last Diabetic eye exam:Jan 2025 Last Podiatry Visit: no early years teacher Random Glucose: 224 mg/dl HgA1C: 7.8% Allergies Seasonal Allergies Allergy (Mild, Verified 08/23/24 10:02) Runny Nose Medication List - Last Reconciled 08/23/24 by Kimberly Isaac PA-C blood sugar diagnostic (FreeStyle Lite Strips) Use daily As directed to check blood glucose blood-glucose meter (FreeStyle Lite Meter kit) Use daily As directed to check blood sugars blood-glucose sensor (FreeStyle Audrey 3 Plus Sensor device) Use daily As directed to monitor glucose blood-glucose,spiral machine operator,cont (FreeStyle Audrey 3 [place]) Use daily As directed to monitor blood glucose insulin degludec (Tresiba FlexTouch U-100 insulin) 50 units (0.5 mL) subcut DAILY lancets (FreeStyle Lancets) use BID as directed to check blood glucose metformin 1,000 mg (2 x 500 mg) PO BID pantoprazole 40 mg PO DAILY pen needle, diabetic As directed tid sumatriptan succinate 25 mg PO Q2-4H PRN HPI HPI T2DM side effects: Details: Patient is a 34-year-old female with a significant past medical history of type 2 diabetes, obesity, depression and Sen's esophagus presenting today for follow up visit regarding diabetes. Endo: She was diagnosed with diabetes around age 26. Her last A1c was 6.5 and today it is 7.8. She is currently on metformin 1000 mg once a day, Tresiba 50 units daily and Ozempic 1 mg weekly. She was supposed to be on lispro but noticed side effects immediately with this medication. -She accidentally was taking 4000 mg daily of metformin for the last 1-2 months and since going down to the 1000 mg daily she has not been having any of the stomach pains. She states that being on the normal dosing of the metformin though she does notice for the 1st few days after taking Ozempic she is not feeling well with it. She gets some nausea with it and is just frustrated because her weight has gone up and her blood sugars have also increased since being off of Mounjaro. She states it was her son who told her that she was taking the wrong dosage. She states that she did not realize the amount of metformin that she was actually taking. She says that she has never made a mistake like this before and understands the dangers to this. She did call her PCP right away when she noticed. -The lispro was causing n/v almost instantly after administering so she d/c'd this. -The ozempic she finds ineffective/nausea for 2 days after taking it. In the past she has trialed Trulicity but had issues with supply at higher dose and had some nausea higher doses. States that she has never had issues with insurance covering Tresiba or metformin. cgm-usage 90%, G mi 8.5%, average glucose 217. Very hyperglycemic 32%, hyperglycemic 40%, in range 28%, 0% hypoglycemia. She states that her blood sugars are getting better since her shoulder repair an d being back on Mounjaro. She overall feels well and does not want to adjust her medication. CV: Blood pressure today is 90/60. Following with cardiology for hypotension. [facility] Medical History (Updated 08/23/24 @ 10:22 by Kimberly Isaac PA-C) Fatty liver GERD (gastroesophageal reflux disease) Anxiety Depression Insulin dependent type 2 diabetes mellitus Migraines BMI 32.0-32.9,adult Gallstones Body mass index (BMI) of 38.0 to 38.9 in adult Obesity Surgical History (Updated 08/23/24 @ 10:01 by Magy Dang CMA) Hx of shoulder surgery History of esophagogastroduodenoscopy (EGD) History of cholecystectomy H/O tubal ligation History of surgery on wrist Hx of section Family History Father HTN (hypertension) Mother No problems noted. Sister Arthritis Knee problem Sister Arthritis Allergies Knee problem Brother No problems noted. Brother No problems noted. Son No problems noted. Son Autism Family/Other Breast cancer Social History Household Members Other:: minor children Are you a primary career development associate to a significant other at home: Yes Do you presently have visiting nurse or other home services: No Alcohol intake: never Comment: counts correct Patient Tobacco Use Status: Never used Tobacco Current occupation: rt handed Physical Exam Vital Signs: Last Vital Signs Pulse 96 08/23/24 10:00 BP 90/60 08/23/24 10:00 Pulse Ox 99 08/23/24 10:00 Oxygen Delivery Method Room Air 08/23/24 10:00 BMI result Body Mass Index 34.3 Const Orientation/consciousness: patient oriented x3 HEENT Ears: hearing grossly normal bilaterally Neck Thyroid: Thyroid normal Lymphatic: no lymphadenopathy noted Resp Auscultation: clear to auscultation bilaterally Cardio Rate: regular rate Rhythm: regular rhythm Heart sounds: S1 normal heart sound present and S2 normal heart sound present GI Inspection: Yes normal to inspection Palpation (GI): Soft to palpation and Other GI palpation findings present (nontender, no cva tenderness) Auscultation: normoactive bowel sounds Rectal Exam - Female: deferred Skin General skin exam: no rashes or lesions noted Neuro General: patient oriented x3, gait normal and no focal motor deficits Results Reviewed Results Reviewed: Laboratory Last Values Glucose (Clinic) 224 mg/dL (60-115) H 08/23/24 10:08 Assessment & Plan Assessment & Plan (1) Uncontrolled type 2 diabetes mellitus with hyperglycemia, with long-term current use of insulin: Code(s): E11.65 - Type 2 diabetes mellitus with hyperglycemia; Z79.4 - nursing home (current ) use of insulin Category: Medical Plan: Discontinue Ozempic Given the med error I will have her complete labs today. Vitals WNL. Exam reassuring. We will start Mounjaro. She was on this in the past and tolerated. Has been poorly controlled with the Ozempic/not tolerating, failed Trulicity as well. I will switch her to novolog with meals increase tresiba to 60 units daily short term follow up 3-4 weeks to be reassessed or sooner prn Orders: Orders Liver Panel Today E11.65 - Type 2 diabetes mellitus with hyperglycemia, Z79.4 - petroleum terminal plant operator (current) use of insulin Basic Metabolic Panel Today E11.65 - Type 2 diabetes mellitus with hyperglycemia, Z79.4 - petroleum terminal plant operator (current) use of insulin Microalbumin, Random (w Creat) Today E11.65 - Type 2 diabetes mellitus with hyperglycemia, Z79.4 - petroleum terminal plant operator (current) use of insulin Complete Blood Count Auto Diff Today E11.9 - Type 2 diabetes mellitus without complications, Z79.4 - petroleum terminal plant operator (current) use of insulin Medications: New tirzepatide (Mounjaro) for 4 weeks 2.5 mg (0.5 mL) subcut QWEEK 2 mL 5RF insulin aspart U-100 (Novolog FlexPen U-100 Insulin aspart) with breakfast, lunch and dinner 5 units (0.05 mL) subcut TID 15 mL 2RF Changed From insulin degludec (Tresiba FlexTouch U-100 insulin) 50 units (0.5 mL) subcut DAILY 15 mL 5RF To insulin degludec (Tresiba FlexTouch U-100 insulin) 60 units (0.6 mL) subcut DAILY 15 mL 5RF Coding Level of Care Code Est Pt Level 4 (00289) Complex EM visit Add On G2211 Diagnoses Uncontrolled type 2 diabetes mellitus with hyperglycemia, with long-term current use of insulin E11.65; Z79.4
[2024-08-23 10:00] VITALS: BP 90/60; PULSE 96; O2SAT 99; BMI 34.3
[2024-08-23 10:12] LABS: Glucose, Whole Blood 224 mg/dL (60-115)
--- OUTSIDE RECORDS SUMMARY | 2024-08-23 10:26 | XMS_ITS | Clinical Summary ---
Author Organization [facility] Address [address] [place] [address] Phone Care Team Providers Care Client Services Representative Name Role Phone Unavailable Primary Care Provider Unavailabl e Allergies No known active allergies Medical History Medical History Date Comments Diabetes mellitus ([facility] V24, [facility] V28) Social History Tobacco Use Types Packs/Day [...] 115 02/29/2024 2:43 AM EST Temperature 38 C (100.4 F) 02/29/2024 3:01 AM EST Respiratory Rate 19 [...] Influencers of Health Screening 01/13/2022 COVID-19 Vaccine () 10/12/2023 02/22/2021, 07/01/2020, 06/03/2020 Diabetes: Annual Urine Albumin-Creatinine Ratio (uACR) 02/29/2024 Diabetes: Blood Sugar Control Test (HGBA1C) 07/26/2024 01/26/2024 Depression Screening 09/28/2024 09/29/2023 Influenza Vaccine (#1) 2024 8, 04/10/2017, 10/24/2014, Additional history exists DTaP,Tdap,and Td [...] 5 Years) and At-Risk Patients (6 to 49 Years) Completed 04/08/2023, 04/10/2017 HIV Screening Completed [...]
--- OUTSIDE RECORDS SUMMARY | 2024-08-23 10:26 | XMS_ITS | Encounter Summary ---
Author Organization [employer] [facility] Address [address] [place] [id number] Care Team Providers Care Sba Business Development Officer Name Role Phone Cinthya Ray MD Primary Care Provider [phone] Mayito Acuña PharmD Unavailable [phone] Encounter Details Date Type Department Care Team ([facility] Contact Info) Description 02/26/2022 Abstract [facility] [address] [place] [address] Cinthya Ray MD [address] [place], [place] [phone] Social History Tobacco Use Types Packs/Day Years [...] Department Care Team (Late Contact Info) Description 10/01/2024 8:00 AM EDT Office Visit [facility] [address] [place] [address] Demario Bocanegra documented as of this encounter Visit Diagnoses Not on filedocumented in this encounter Care Teams Sba Business Development Officer Relationship Specialty Start Date End Date Cinthya Ray MD [address] [place] [address] PCP - General Family Medicine 10/23/11 Mayito Acuña, DyanD [address] [place] [id number] Pharmacist Internal Medicine 03/07/23 04/22/24 documented as of this encounter
== END 2024-08-23 10:27 | disposition home or self-care (01) ==
LOC: HO.ENCR 09:54
PROVIDERS: PCP Family Medicine; Visit Provider Physician Assistant
DX: E11.65 Type 2 diabetes mellitus with hyperglycemia (principal); Z79.4 Long term (current) use of insulin; Z13.9 Encounter for screening, unspecified

== ENCOUNTER → 2024-08-23 09:53 | Outpatient (BNVA) | payer MEDICAID, SELFPAY | PROVIDERS: PCP Family Medicine; Visit Provider Physician Assistant | DX: E11.65 Type 2 diabetes mellitus with hyperglycemia (principal); Z79.4 Long term (current) use of insulin; Z79.84 Long term (current) use of oral hypoglycemic drugs | CPT/HCPCS: 82947; 83036; 99212 ==

== ENCOUNTER 2024-08-23 10:43 | Outpatient (REF) | payer MEDICAID, SELFPAY ==
[2024-08-23 13:08] LABS: MANUAL DIFF FLAG NO
[2024-08-23 13:13] LABS: Hematocrit 34.3 % (37.0-47.0); Hemoglobin 11.1 g/dl (12.0-16.0); Imm Gran Abs Auto 0.02 X10*3/uL (0.00-0.03); Imm Gran Pct Auto 0.3 % (0.0-0.4); Lymphocytes Absolute Auto 2.2 X10*3/uL (1.2-4.9); Mean Corpuscular HGB Conc 32.4 g/dl (31.0-35.0); Mean Corpuscular Hemoglobin 23.8 pg (27.0-33.0); Mean Corpuscular Volume 73.6 fL (80.0-98.0); NRBC Abs Auto 0.000 X10*3/uL (0.0-0.012); NRBC Pct Auto 0.0 /100WBC (0.0-0.2); Platelet Count 291 X10*3/uL (160-400); Red Blood Count 4.66 X10*6/uL (4.20-5.50); White Blood Count 7.5 X10*3/uL (4.8-10.8)
[2024-08-23 13:39] LABS: Alanine Aminotransferase 18 U/L (0-31); Albumin Level 3.8 g/dL (3.5-5.0); Alkaline Phosphatase 83 U/L (39-117); Anion Gap 11 (12-20); Aspartate Amino Transferase 25 U/L (5-31); Blood Urea Nitrogen 13 mg/dL (9-16); Calcium 8.6 mg/dL (8.4-10.2); Carbon Dioxide 23 mmol/L (22-29); Chloride 105 mmol/L (96-108); Estimated Glomerular Filt Rate > 60; Potassium 4.0 mmol/L (3.3-5.1); Sodium 135 mmol/L (135-145); Total Protein 7.3 g/dL (6.5-8.0)
[2024-08-23 14:41] LABS: Microalbum/Creatinine Ratio Ur 6.6 ug/mg cr (<30)
== END 2024-08-23 10:44 | disposition home or self-care (01) ==
LOC: HO.10HDL 10:43
PROVIDERS: Visit Provider Physician Assistant
DX: E11.65 Type 2 diabetes mellitus with hyperglycemia (principal); Z79.4 Long term (current) use of insulin; Z13.89 Encounter for screening for other disorder
CPT/HCPCS: 36415; 80048; 80076; 82043; 82570; 85025

== ENCOUNTER 2024-09-27 14:05 | Outpatient (AMB) | payer MEDICAID, SELFPAY ==
[2024-09-27 14:10] VITALS: BP 87/58; PULSE 98; O2SAT 98; BMI 35.5
--- NOTE | 2024-09-27 14:10 | A.OFFVIS_ITS ---
Vital Signs 09/27/24 14:10 Height 5 ft 2 in Weight 194 lb 0.108 oz BMI 35.5 BP 87/58 L Blood Pressure Location Rt brachial Position Sitting Pulse 98 Pulse Source Pulse Oximeter Pulse Oximetry (%) 98 Oxygen Delivery Method Room Air Intake Visit Reasons: dm Intake Note: Patient present today for Type 2 Diabetes Mellitus Last Diabetic eye exam: Jan 2024 Last Podiatry Visit: Patient does not see a Geoscientist Most Recent HgA1C: 7.8%, 08/23/2024 Random Glucose: 273 mg/dL Tax Services Specialist Required: No Accompanied by: Self / Same As Patient Allergies Seasonal Allergies Allergy (Mild, Verified 09/27/24 14:12) Runny Nose Medication List - Last Reconciled 09/27/24 by Kimberly Isaac PA-C blood sugar diagnostic (FreeStyle Lite Strips) Use daily As directed to check blood glucose blood-glucose meter (FreeStyle Lite Meter kit) Use daily As directed to check blood sugars blood-glucose sensor (FreeStyle Audrey 3 Plus Sensor device) Use daily As di rected to monitor glucose blood-glucose,care director rn,cont (FreeStyle Audrey 3 Jamieson) Use daily As directed to monitor blood glucose insulin aspart U-100 (Novolog FlexPen U-100 Insulin aspart) 5 units (0.05 mL) subcut TID insulin degludec (Tresiba FlexTouch U-100 insulin) 60 units (0.6 mL) subcut DAILY lancets (FreeStyle Lancets) use BID as directed to check blood glucose metformin 1,000 mg (2 x 500 mg) PO BID pantoprazole 40 mg PO DAILY pen needle, diabetic As directed tid sumatriptan succinate 25 mg PO Q2-4H PRN tirzepatide (Mounjaro) 5 mg (0.5 mL) subcut QWEEK HPI HPI dm: Details: Patient is a 34-year-old female with a significant past medical history of type 2 diabetes, obesity, depression and Sen's esophagus presenting today for follow up visit regarding diabetes. Endo: She was diagnosed with diabetes around age 26. Her last A1c was 7.8. She is currently on metformin 1000 mg once a day, Tresiba 60 units daily , and NovoLog 6 units with meals and Mounjaro 5 mg weekly. -she states that she has not started taking the NovoLog yet. She also is still in the 2.5 mg of the Mounjaro because her pharmacy did not notify the insurance of the prescription change. She plans to go there today to discuss this with them. -The lispro was causing n/v almost instantly after administering so she d/c'd this. -The Trulicity and ozempic she finds ineffective/nausea for 2 days after taking it. cgm-usage 89 %, G mi 8.9%, average glucose 232. Very hyperglycemic 37%, hy perglycemic 45%, in range 18%, 0% hypoglycemia. CV: Blood pressure today is 90/60. Following with cardiology for hypotension. [facility] Medical History Fatty liver GERD (gastroesophageal reflux disease) Anxiety Depression Insulin dependent type 2 diabetes mellitus Migraines BMI 32.0-32.9,adult Gallstones Body mass index (BMI) of 38.0 to 38.9 in adult Obesity Surgical History Hx of shoulder surgery History of esophagogastroduodenoscopy (EGD) History of cholecystectomy H/O tubal ligation History of surgery on wrist Hx of section Family History Father HTN (hypertension) Mother No problems noted. Sister Arthritis Knee problem Sister Arthritis Allergies Knee problem Brother No problems noted. Brother No problems noted. Son No problems noted. Son Autism Family/Other Breast cancer Social History Household Members Other:: minor children Are you a primary care management assistant to a significant other at home: Yes Do you presently have visiting nurse or other home services: No Alcohol intake: never Comment: counts correct Patient Tobacco Use Status: Never used Tobacco Current occupation: rt handed Physical Exam Vital Signs: Oxygen Delivery Method Room Air 09/27/24 14:10 Const Orientation/consciousness: patient oriented x3 HEENT Ears: hearing grossly normal bilaterally Neck Thyroid: Thyroid normal Lymphatic: no lymphadenopathy noted Resp Auscultation: clear to auscultation bilaterally Cardio Rate: regular rate Rhythm: regular rhythm Heart sounds: S1 normal heart sound present and S2 normal heart sound present Skin General skin exam: no rashes or lesions noted Neuro General: patient oriented x3, gait normal and no focal motor deficits Results Reviewed Results Reviewed: Laboratory Tests 08/23/24 08/23/24 10:50 11:15 Creatinine 0.60 Estimated GFR > 60 Random Glucose 209 H Hgb A1c (Clinic) 7.8 H AST 25 ALT 18 Assessment & Plan Assessment & Plan (1) Uncontrolled type 2 diabetes mellitus with hyperglycemia, with long-term current use of insulin: Code(s): E11.65 - Type 2 diabetes mellitus with hyperglycemia; 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 Currently asymptomatic. Medications: Refilled tirzepatide (Mounjaro) 5 mg (0.5 mL) subcut QWEEK 2 mL 2RF Coding Level of Care Code Est Pt Level 4 (36924) Complex EM visit Add On G2211 Diagnoses Uncontrolled type 2 diabetes mellitus with hyperglycemia, with long-term current use of insulin E11.65; Z79.4 Hypotension I95.9
[2024-09-27 14:21] LABS: Glucose, Whole Blood 273 mg/dL (60-115)
--- OUTSIDE RECORDS SUMMARY | 2024-09-27 14:52 | XMS_ITS | Encounter Summary ---
Author Organization [employer] Address [address] [place] [address] Care Team Providers Care Compensation And Hris Analyst Name Role Phone Cinthya Ray MD Primary Care Provider [phone] Mayito Acuña PharmD Unavailable [phone] Encounter Details Date Type Department Care Team (Late Contact Info) Description 02/26/2022 Abstract [facility] [address] [place] [address] Cinthya Ray MD [address] [place] [address] Social History Tobacco Use Types Packs/Day Years [...] Care Team (Late st Contact Info) Description 10/01/2024 8:00 AM EDT Office Visit [facility]ULT [facility] [address] [place] [address] Demario Bocanegra documented as of this encounter Visit Diagnoses Not on filedocumented in this encounter Care Teams Compensation And Hris Analyst Relationship Specialty Start Date End Date Cinthya Ray MD [address] [place], [place] [phone] PCP - General Family Medicine 10/23/11 Mayito Acuña, Citlali [address] [place] [address] Pharmacist Internal Medicine 03/07/23 04/22/24 documented as of this encounter
--- OUTSIDE RECORDS SUMMARY | 2024-09-27 14:52 | XMS_ITS | Clinical Summary ---
Author Organization [facility] Address [address] [place] [address] Phone Care Team Providers Care Spike Machine Operator Name Role Phone Unavailable Primary Care Provider Unavailabl e Allergies No known active allergies Medical History Medical History Date Comments Diabetes mellitus ([facility] V24, [facility] V28) Social History Tobacco Use Types Packs/Day [...] Vaccine ( season) 2023 02/22/2021, 07/01/2020, 06/03/2020 Depression Screening 02/11/2024 Diabetes: Annual Urine Albumin-Creatinine Ratio (uACR) 02/29/2024 Diabetes: Blood Sugar Control Test (HGBA1C) 07/26/2024 01/26/2024 Influenza Vaccine (#1) 2024 8, 04/10/2017, 10/24/2014, [...]
== END 2024-09-27 15:18 | disposition home or self-care (01) ==
LOC: HO.ENCR 14:05
PROVIDERS: PCP Family Medicine; Visit Provider Physician Assistant
DX: E11.65 Type 2 diabetes mellitus with hyperglycemia (principal); Z79.4 Long term (current) use of insulin; I95.9 Hypotension, unspecified

== ENCOUNTER → 2024-09-27 14:05 | Outpatient (BNVA) | payer MEDICAID, SELFPAY | PROVIDERS: PCP Family Medicine; Visit Provider Physician Assistant | DX: E11.65 Type 2 diabetes mellitus with hyperglycemia (principal); I95.9 Hypotension, unspecified; E66.9 Obesity, unspecified; Z79.4 Long term (current) use of insulin; Z79.84 Long term (current) use of oral hypoglycemic drugs | CPT/HCPCS: 82947; 99212 ==

== ENCOUNTER 2024-10-14 14:38 | Outpatient (AMB) | payer MEDICAID, SELFPAY ==
--- OUTSIDE RECORDS SUMMARY | 2024-10-09 09:20 | XMS_ITS | Encounter Summary ---
Author Organization [employer] Address [address] [place] [address] [address], [place] [address] Care Team Providers Care Laundry Or Dry Cleaners Counter Clerk Name Role Phone Cinthya Ray MD Primary Care Provider [phone] Reason for Referral * Consultation (Routine) - Authorized Specialty Diagnoses / Procedures Referred By Contac t Referred To Contact Neurology Diagnoses Chronic migraine without aura with status migrainosus, not intractable Megan Ortez MD [address] [place] [address] Phone: tel: fax: [facility] [address] [place] [address] Phone: tel: fax: Referral ID Status Reason Start Date Expiration Date Visits Requested Visits Authorized [id number] Authorized Specialty Services Required 10/12/2024 10/12/2025 6 6 Reason for Visit * Reason Comments Walk-In Migraines/ dizziness Encounter Details Date Type Department Care Team (Late st Contact Info) Description 10/09/2024 9:20 AM EDT Office Visit [facility] [address] [place], [place] [phone] Megan Ortez MD [address] [place] [address] Chronic migraine without aura with status migrainosus, not intractable (Primary Dx); Severe episode of recurrent major depressive disorder, without psychotic features (CMS/HCC); Mild intermittent asthma without complication Social History Tobacco Use Types Packs/Day Years [...] Sign Reading Time Taken Comments Blood Pressure 100/69 10/09/2024 9:23 AM EDT Pulse 99 10/09/2024 9:23 AM EDT Temperature 36.4 C (97.6 F) 10/09/2024 9:23 AM EDT Respiratory Rate 18 10/09/2024 9:23 AM EDT Oxygen Saturation 99% 10/09/2024 9:23 AM EDT Inhaled Oxygen Concentration - - Weight 88.9 kg (196 lb) 10/09/2024 9:23 AM EDT Height - - Body Mass Index 35.85 07/21/2024 2:31 PM EDT documented in this encounter Progress Notes * Megan Ortez MD - 10/09/2024 9:20 AM EDT SUBJECTIVE: Sonali Rosa is a 34 y.o. female who presents for acute visit. Denies recent illness, ERvisit, or hospitalization. Acute Concerns: Sonali presents to clinic with her son for concerns of ongoing Migraine headaches x 1 week. Front of head with dizziness bending over and standing back up (she has low blood pressure and is going tosee cardiology next month about this and possible orthostatic hypotension). No visual disturbance no numbness or weakness in face or extremities has been on Sumatriptan in the past and it does not help per patient report. She has never been on prophylactic medications for migraine as far as she knows. Endorses light sensitivity and slight blurry vision this morning. Has migraines almost every day. Patient Active Problem List Diagnosis Date Noted Severe episode of recurrent major depressive disorder, without psychotic features ([facility]) 10/09/2024 Hypotension 05/04/2024 Lower urinary tract symptoms (LUTS) 04/06/2024 Mild intermittent asthma without complication 01/27/2024 Chronic left shoulder pain 01/27/2024 Decreased sensation of lower extremity 01/27/2024 Major depression 09/23/2023 Sen's esophagus 09/09/2023 Post-cholecystectomy syndrome 07/31/2023 GERD (gastroesophageal reflux disease) 06/13/2023 Metabolic dysfunction-associated steatotic liver disease (MASLD) 06/13/2023 Tachycardia 03/07/2023 Recurrent candidiasis of vagina 08/29/2022 Panic attacks 06/19/2022 Cyst, dermoid, scalp and neck 04/04/2022 Mixed dyslipidemia 04/04/2022 History of syphilis 02/22/2022 Postcholecystectomy diarrhea 02/22/2022 History of kidney stones 02/22/2022 Recurrent UTI 02/22/2022 Diabetes mellitus, type 2 ([facility]) 02/18/2022 Obstructive sleep apnea syndrome 01/01/2022 History of stillbirth 01/01/2022 History of tubal ligation 01/01/2022 History of sexually transmitted disease 01/01/2022 Allergic rhinitis 06/15/2013 Mixed anxiety and depressive disorder 01/06/2012 Headache 11/04/2011 Insomnia 11/04/2011 Obesity 11/04/2011 Elevated blood pressure reading without diagnosis of hypertension 04/04/2022 Chronic migraine without aura with status migrainosus, not intractable 02/12/2022 Surgical History[1] Social History Social History Narrative Not on file Review of Systems Constitutional: Negative. Respiratory: Negative. Cardiovascular: Negative. Gastrointestinal: Negative. Musculoskeletal: Negative. Skin: Negative. Neurological: Positive for light-headedness and headaches. Negative for tremors, syncope, facial asymmetry, speech difficulty and weakness. OBJECTIVE: Vitals: 10/09/24 0923 BP: 100/69 BP Location: Right arm Patient Position: Sitting BP Cuff Size: Adult Pulse: 99 Resp: 18 Temp: 97.6 ??F (36.4 ??C) TempSrc: Oral SpO2: 99% Weight: 196 lb (88.9 kg) Physical Exam Vitals and nursing note reviewed. Constitutional: Appearance: Normal appearance. HENT: Head: Normocephalic and atraumatic. Right Ear: Tympanic membrane normal. Left Ear: Tympanic membrane normal. Nose: Nose normal. Mouth/Throat: Mouth: Mucous membranes are moist. Pharynx: Oropharynx is clear. Eyes: General: Right eye: No discharge. Left eye: No discharge. Extraocular Movements: Extraocular movements intact. Conjunctiva/sclera: Conjunctivae normal. Pupils: Pupils are equal, round, and reactive to light. Cardiovascular: Rate and Rhythm: Normal rate and regular rhythm. Pulses: Normal pulses. Heart sounds: Normal heart sounds. Pulmonary: Effort: Pulmonary effort is normal. Breath sounds: Normal breath sounds. Skin: General: Skin is warm and dry. Capillary Refill: Capillary refill takes less than 2 seconds. Neurological: General: No focal deficit present. Mental Status: She is alert and oriented to person, place, and time. Cranial Nerves: No cranial nerve deficit. Sensory: No sensory deficit. Motor: No weakness. Coordination: Coordination normal. Gait: Gait normal. Deep Tendon Reflexes: Reflexes normal. Psychiatric: Mood and Affect: Mood normal. Behavior: Behavior normal. ASSESSMENT/PLAN Problem List Items Addressed This Visit Chronic migraine without aura with status migrainosus, not intractable - Primary Relevant Medications lamoTRIgine (LaMICtal) 100 MG tablet ketorolac (Toradol) 10 MG tablet ondansetron (Zofran) 4 MG tablet diphenhydrAMINE (BENADryl) 25 MG tablet Other Relevant Orders Referral to Neurology Mild intermittent asthma without complication Relevant Medications ketorolac (Toradol) 10 MG tablet diphenhydrAMINE (BENADryl) 25 MG tablet Severe episode of recurrent major depressive disorder, without psychotic features (CMS/HCC) Relevant Medications Baqsimi Two Pack 3 MG/DOSE nasal powder lamoTRIgine (LaMICtal) 100 MG tablet Follow Up: per PCP recall or sooner prn Allergies[2] Current Medications[3] Syrian Translation: Patient is bilingual and declines translation services [1] Past Surgical History: Procedure Laterality Date SECTION, LOW TRANSVERSE 2011 SECTION, LOW TRANSVERSE 04/07/2014 intrauterine demise at 34 4/7 wks CHOLECYSTECTOMY 08/11/2020 TUBAL LIGATION [2] No Known Allergies [3] Current Outpatient Medications: Baqsimi Two Pack 3 MG/DOSE nasal powder, SPRAY 3 MG INTRANASALLY ONCE, Disp: , Rfl: insulin lispro (HumaLOG) 100 UNIT/ML injection, INJECT 6 UNITS (0.06 ML) SUBCUTANEOUSLY 2 TIMES A DAY FOR 30 DAYS BEFORE BREAKFAST AND SUPPER, Disp: , Rfl: lamoTRIgine (LaMICtal) 100 MG tablet, PLEASE SEE ATTACHED FOR DETAILED DIRECTIONS, Disp: , Rfl: Ozempic, 1 MG/DOSE, 4 MG/3ML solution pen-injector, 1 MG (0.75 ML) SUBCUTANEOUSLY EVERY WEEK FOR 28DAYS, Disp: , Rfl: Alcohol Swabs (Alcohol Prep) 70 % pads, Check blood sugar 4 times daily or as needed, Disp: 100 each, Rfl: 11 Blood Pressure Monitor kit, Check blood pressure once daily and as needed, Disp: 1 kit, Rfl: 0 cholecalciferol (Vitamin D-3) 25 MCG (1000 UT) tablet, Take 1 tablet (25 mcg) by mouth Once per day., Disp: 90 tablet, Rfl: 3 clotrimazole (Lotrimin) 1 % vaginal cream, Insert one applicator per vagina at bedtime for 7 nights, Disp: 45 g, Rfl: 0 Continuous Glucose Mental Hygienist (FreeStyle Audrey 3 Graham) device, 1 each Once per day. Use as directedfor CGM, Disp: 1 each, Rfl: 0 Continuous Glucose Sensor (FreeStyle Audrey 2 Sensor) misc, Scan at least every 8 hours. Change sensor every 14 days., Disp: 2 each, Rfl: 1 Continuous Glucose Sensor (FreeStyle Audrey 3 Plus Sensor) misc, 1 each every 15 days. Apply 1 every15 days as directed for CGM, Disp: 2 each, Rfl: 11 diphenhydrAMINE (BENADryl) 25 MG tablet, Take 2 tablets (50 mg) by mouth if needed each day (headache). Take with Zofran and Toradol for migraine cocktail, Disp: 30 tablet, Rfl: 0 fluconazole (Diflucan) 150 MG tablet, Take 1 tab po once, repeat on day 3, Disp: 2 tablet, Rfl: 0 fluticasone (Flonase) 50 MCG/ACT nasal spray, SPRAY 2 SPRAYS INTO EACH NOSTRIL IN THE MORNING SHAKEGENTLY/PRIME BEFORE 1ST USE&CLEAN TIP/REPLACE CAP, Disp: 48 mL, Rfl: 1 Glucose 2 g chewable tablet, Chew 2 g Once per day. To use as needed if FS < 70 mg /dl or if having an episode of dizziness., Disp: 10 tablet, Rfl: 1 ibuprofen 600 MG tablet, TAKE 1 TABLET BY MOUTH IN THE MORNING, AT NOON AND AT BEDTIME IF NEEDED FOR MILD PAIN, Disp: 90 tablet, Rfl: 0 insulin aspart FlexPen (NovoLOG) 100 UNIT/ML pen, INJECT 5 UNITS (0.05 ML) SUBCUTANEOUSLY 3 TIMES ADAY WITH BREAKFAST, LUNCH AND DINNER, Disp: , Rfl: insulin degludec (Tresiba FlexTouch) 100 UNIT/ML injection, INJECT 35 UNITS SUBCUTANEOUSLY ONCE EVERY DAY, may increase by 2 units every 72 hours for fasting blood sugar above 130. MAX DAILY DOSE 45 UNITS PER DAY PATIENT CAN INJECT., Disp: 45 mL, Rfl: 3 insulin pen needle (BD Pen Needle Rowena 2nd Gen) 32G x 4 mm misc, USE WITH INSULIN ONCE A DAY, Disp:100 each, Rfl: 11 ketorolac (Toradol) 10 MG tablet, Take 1 tablet (10 mg) by mouth every 8 (eight) hours if needed for moderate pain for up to 5 days. Take one with Benadryl and Zofran for migraine prophylaxis, Disp: 15 tablet, Rfl: 0 lamoTRIgine (LaMICtal) 25 MG tablet, PLEASE SEE ATTACHED FOR DETAILED DIRECTIONS, Disp: , Rfl: loratadine (Claritin) 10 MG tablet, Take 1 tablet (10 mg) by mouth Once per day., Disp: 90 tablet, Rfl: 0 melatonin 3 MG tablet, TAKE 1 TABLET BY MOUTH 2-3 HOURS BEFORE YOUR DESIRED BEDTIME, Disp: , Rfl: metFORMIN XR (Glucophage-XR) 500 MG 24 hr tablet, TAKE 2 TABLETS BY MOUTH TWICE DAILY WITH BREAKFAST AND WITH DINNER, DO NOT BREAK, CRUSH, DISSOLVE OR CHEW, Disp: 360 tablet, Rfl: 1 Mounjaro 2.5 MG/0.5ML solution auto-injector, INJECT 1 PEN (2.5 MG) SUBCUTANEOUSLY ONCE EVERY WEEK FOR 4 WEEKS, Disp: , Rfl: Multiple Vitamin (multivitamin) tablet, Take 1 tablet by mouth Once per day., Disp: 90 tablet, Rfl:3 ondansetron (Zofran) 4 MG tablet, Take 1 tablet (4 mg) by mouth every 8 (eight) hours if needed fornausea or vomiting for up to 7 days. Take with Ketorolac 10mg and Benadryl 50mg for migraine cocktail, Disp: 20 tablet, Rfl: 0 pantoprazole (ProtoNix) 40 MG EC tablet, Take 40 mg by mouth Once per day., Disp: , Rfl: Sodium Fluoride (PreviDent 5000 Booster Plus) 1.1 % paste, Please use pea size to brush your teeth twice daily. Spit after brushing. So not rinse., Disp: 112 g, Rfl: 1 SUMAtriptan (Imitrex) 25 MG tablet, TAKE 1 TAB ORALLY AFTER MIGRAINE ONSET MAY REPEAT AFTER 2HRS IFHEADACHE RETURNS,MAX 200MG IN 24HRS, Disp: 9 tablet, Rfl: 0 TRUEplus Lancets 33G misc, TEST BLOOD SUGAR FOUR TIMES DAILY, Disp: 100 each, Rfl: 11 documented in this encounter Plan of Treatment Scheduled Referrals Name Type Priority Associated Diagnoses Orde r Schedule Referral to Neurology Outpatient Referral Routine Chronic migraine without aura with status migrainosus, not intractable Expected: 10/09/2024 (Approximate), Expires: 10/09/2025 documented as of this encounter Goals Goal Patient Goal Type Associated Problems Recent Progress Patient-Stated? Author Blood Pressure < 140/90 Blood Pressure 100/69(2024 9:23 AM EDT) No Mayito Acuña, PharmD Hemoglobin A1c < 7 Result Component 6.5( 3:35 PM EDT) No Mayito Acuña, DyanD documented as of this encounter Visit Diagnoses Diagnosis Chronic migraine without aura with status migrainosus, not intractable- Primary Severe episode of recurrent major depressive disorder, without psychotic features (CMS/HCC) Mild intermittent asthma without complication documented in this encounter Additional Health Concerns Assessment Noted Time PHQ-9 Depression Total Score: 14 025 3:57 PM EDT documented as of this encounter Care Teams Laundry Or Dry Cleaners Counter Clerk Relationship Specialty Start Date End Date Cinthya Ray MD [address] [place] [id number] PCP - General Family Medicine 10/23/11 documented as of this encounter
--- NOTE | 2024-10-14 14:41 | A.OFFVIS_ITS ---
Intake Visit Reasons: PO LT Shoulder 06/04/24 -3 month follow up Intake Note: Sonali is a 34 year old female who presents with complaints of mild to moderate discomfort along the lateral aspect of her left shoulder after undergoing left shoulder arthroscopic surgery on 06/04/2024. She denies any fevers or chills. The patient states that she has been in the process of moving to a new apartment which has involved quite a bit of lifting. Allergies Seasonal Allergies Allergy (Mild, Verified 10/14/24 14:43) Runny Nose Medication List - Last Reconciled 10/14/24 by Al Hays MD blood sugar diagnostic (FreeStyle Lite Strips) Use daily As directed to check blood glucose blood-glucose meter (FreeStyle Lite Meter kit) Use daily As directed to check blood sugars blood-glucose sensor (MentorDOTMeStyle Audrey 3 Plus Sensor device) Use daily As directed to monitor glucose blood-glucose,endless belt finisher,cont (FreeStyle Audrey 3 [place]) Use daily As directed to monitor blood glucose insulin aspart U-100 (Novolog FlexPen U-100 Insulin aspart) 5 units (0.05 mL) subcut TID insulin degludec (Tresiba FlexTouch U-100 insulin) 60 units (0.6 mL) subcut DAILY lamotrigine mg PO lancets (FreeStyle Lancets) use BID as directed to check blood glucose metformin 1,000 mg (2 x 500 mg) PO BID pantoprazole 40 mg PO DAILY pen needle, diabetic As directed tid sumatriptan succinate 25 mg PO Q2-4H PRN tirzepatide (Mounjaro) 5 mg (0.5 mL) subcut QWEEK PFSH Medical History Fatty liver GERD (gastroesophageal reflux disease) Anxiety Depression Insulin dependent type 2 diabetes mellitus Migraines BMI 32.0-32.9,adult Gallstones Body mass index (BMI) of 38.0 to 38.9 in adult Obesity Surgical History Hx of shoulder surgery History of esophagogastroduodenoscopy (EGD) History of cholecystectomy H/O tubal ligation History of surgery on wrist Hx of section Family History Father HTN (hypertension) Mother No problems noted. Sister Arthritis Knee problem Sister Arthritis Allergies Knee problem Brother No problems noted. Brother No problems noted. Son No problems noted. Son Autism Family/Other Breast cancer Social History Household Members Other:: minor children Are you a primary home care consultant to a significant other at home: Yes Do you presently have visiting nurse or other home services: No Alcohol intake: never Comment: counts correct Patient Tobacco Use Status: Never used Tobacco Current occupation: rt handed Physical Exam Const Other: Well-nourished well-developed very friendly female awake alert and oriented x3 in no acute distress Extrem Other: Left shoulder examination shows that the surgical incisions are well healed, no erythema, almost full range of motion when compared to her right shoulder, mild discomfort with resisted forward flexion, no instability Assessment & Plan Assessment & Plan (1) Left shoulder pain: Code(s): M25.512 - Pain in left shoulder Category: Medical Plan Ms. Jose Rosa continues to do very well after undergoing left shoulder arthroscopic surgery on 06/04/2024. She does have intermittent discomfort most likely due to overuse. Activity modifications were discussed at length with the patient. She will contact me prior to her follow-up appointment in 3 months should her symptoms worsen in any way. Feel free to call me at any time should questions regarding her orthopedic management arise. I spent 22 minutes in reviewing the patient's records and imaging studies, seeing the patient and documenting in the medical record. Coding Level of Care Code Est Pt Level 3 (59569) Complex EM visit Add On G2211 Diagnoses Left shoulder pain M25.512
--- OUTSIDE RECORDS SUMMARY | 2024-10-14 15:52 | XMS_ITS | Encounter Summary ---
Author Organization [employer] Address [address] [place] [address] Care Team Providers Care Ship Engineer Name Role Phone Cinthya Ray MD Primary Care Provider [phone] Reason for Referral * Consultation (Routine) - Authorized Specialty Diagnoses / Procedures Referred By Contac t Referred To Contact Cardiology Diagnoses Hypotension, unspecified hypotension type Cinthya Ray MD [address] [place] [address] Phone: tel: fax: [facility] Referral ID Status Reason Start Date Expiration Date Visits Requested Visits Authorized [id number] Authorized Specialty Services Required 07/09/2024 07/09/2025 6 6 Encounter Details Date Type Department Care Team (Late st Contact Info) Description 07/09/2024 Orders Only [facility] MEDICINE [address] [place], [place] [phone] Cinthya Ray MD [address] [place], [place] [phone] Hypotension, unspecified hypotension type (Primary Dx) Social History Tobacco Use Types [...] as of this encounter Plan of Treatment Scheduled Referrals Name Type Priority Associated Diagnoses Orde r Schedule Referral to Cardiology Outpatient Referral Routine Hypotension, unspecified hypotension type Expected: 07/09/2024 (Approximate), Expires: 07/09/2025 documented as of this encounter Goals Goal Patient Goal Type Associated Problems Recent Progress Patient-Stated? Author Blood Pressure < 140/90 Blood Pressure 100/69(2024 9:23 AM EDT) No Mayito Acuña, Citlali Hemoglobin A1c < 7 Result Component 6.5( 3:35 PM EDT) No Mayito Acuña, Citlali documented as of this encounter Visit Diagnoses Diagnosis Hypotension, unspecified hypotension type- Primary documented in this encounter Additional Health Concerns Assessment Noted Time PHQ-9 Depression Total Score: 14 025 3:57 PM EDT documented as of this encounter Care Teams Ship Engineer Relationship Specialty Start Date End Date Cinthya Ray MD [address] [place] [address] PCP - General Family Medicine 10/23/11 documented as of this encounter
--- OUTSIDE RECORDS SUMMARY | 2024-10-14 15:52 | XMS_ITS | Encounter Summary ---
Author Organization [employer] Address [address] [place] [address] [address] [place] [address] Care Team Providers Care President Sales And Marketing Name Role Phone Cinthya Ray MD Primary Care Provider [phone] Reason for Visit * Reason Comments Med Refill Encounter Details Date Type Department Care Team ([facility] st Contact Info) Description 04/26/2024 Refill [facility] MEDICINE [address] [place], [place] [phone] Cinthya Ray MD [address] [place] [address] Social History Tobacco Use Types Packs/Day Years [...] as of this encounter Plan of Treatment Not on file documented as of this encounter Goals Goal Patient Goal Type Associated Problems Recent Progress Patient-Stated? Author Blood Pressure < 140/90 Blood Pressure 100/69(2024 9:23 AM EDT) No Mayito Acuña, PharmDao Hemoglobin A1c < 7 Result Component 6.5( 3:35 PM EDT) No Mayito Acuña, Citlali documented as of this encounter Visit Diagnoses Not on filedocumented in this encounter Additional Health Concerns Assessment Noted Time PHQ-9 Depression Total Score: 11 024 9:48 AM EDT documented as of this encounter Care Teams President Sales And Marketing Relationship Specialty Start Date End Date Cinthya Ray MD [address] [place] [address] PCP - General Family Medicine 10/23/11 documented as of this encounter
--- OUTSIDE RECORDS SUMMARY | 2024-10-14 15:52 | XMS_ITS | Encounter Summary ---
Author Organization [employer] Address [address] [place] [address] [address] [place] [address] Care Team Providers Care Sausage Smoker Name Role Phone Cinthya Ray MD Primary Care Provider [phone] Mayito Acuña PharmD Unavailable [phone] Reason for Visit * Reason Onset Date Comments callback request 12/30/2023 Encounter Details Date Type Department Care Team (Late st Contact Info) Description 12/30/2023 Telephone [facility] MEDICINE [address] [place], [place] [phone] Cinthya Ray MD [address] [place], [place] [phone] callback request Social History Tobacco Use Types [...] EST Tc from pt returning call from [facility] to book an appointment for follow up Callback [phone] documented in this encounter Plan of Treatment [...] documented as of this encounter Care Teams Sausage Smoker Relationship Specialty Start Date End Date Cinthya Ray MD [address] [place] [address] PCP - General Family Medicine 10/23/11 Mayito Acuña, DyanD [address] [place] [address] Pharmacist Internal Medicine 03/07/23 04/22/24 documented as of this encounter
--- OUTSIDE RECORDS SUMMARY | 2024-10-14 15:52 | XMS_ITS | Encounter Summary ---
Author Organization [employer] Address [address] [facility] 7 [place] [address] Care Team Providers Care Makeup Artistry Instructor Name Role Phone Cinthya Rya MD Primary Care Provider [phone] Encounter Details Date Type Department Care Team ([facility] st Contact Info) Description 06/09/2024 Orders Only [facility] MEDICINE [address] [place], [place] [phone] Abigail Darling CNM [address] [place] [address] Social History Tobacco Use Types Packs/Day Years [...] Pressure 100/69(2024 9:23 AM EDT) No Mayito Acuña PharmD Hemoglobin A1c < 7 Result Component 6.5( 3:35 PM EDT) No Mayito Acuña PharmD documented as of this encounter Visit Diagnoses Not on filedocumented in this encounter Additional Health Concerns Assessment Noted Time PHQ-9 Depression Total Score: 14 025 3:57 PM EDT documented as of this encounter Care Teams Makeup Artistry Instructor Relationship Specialty Start Date End Date Cinthya Ray MD [address] [place] [address] PCP - General Family Medicine 10/23/11 documented as of this encounter
--- OUTSIDE RECORDS SUMMARY | 2024-10-14 15:52 | XMS_ITS | Encounter Summary ---
Author Organization [employer] Address [address] [place] [address] Care Team Providers Care Air Carrier Maintenance Inspector Name Role Phone Cinthya Ray MD Primary Care Provider [phone] Mayito Acuña PharmD Unavailable [phone] Encounter Details Date Type Department Care Team (Late st Contact Info) Description 02/26/2022 Abstract [facility] MEDICINE [address] [place], [place] [phone] Cinthya Ray MD [address] [place] [address] Social History Tobacco Use Types Packs/Day Years [...] on file documented as of this encounter Visit Diagnoses Not on filedocumented in this encounter Care Teams Air Carrier Maintenance Inspector Relationship Specialty Start Date End Date Cinthya Ray MD [address] [place], [place] [phone] PCP - General Family Medicine 10/23/11 Mayito Acuña, DyanD [address] [place] [address] Pharmacist Internal Medicine 03/07/23 04/22/24 documented as of this encounter
--- OUTSIDE RECORDS SUMMARY | 2024-10-14 15:52 | XMS_ITS | Encounter Summary ---
Author Organization [employer] Address [address] [place] [address] [address] [address] Care Team Providers Care Subsystems Engineer Name Role Phone Cinthya Ray MD Primary Care Provider [phone] Mayito Acuña PharmD Unavailable [phone] Reason for Referral * Consultation (Urgent) - Closed Specialty Diagnoses / Procedures Referred By Contac t Referred To Contact Endocrinology Diagnoses Type 2 diabetes mellitus with hyperglycemia, with long-term current use of insulin (CMS/HCC) Cinthya Ray MD [address] [place] [address] Phone: tel: fax: [facility] Endocrinology [address] [place] [address] Phone: tel: fax: Referral ID Status Reason Start Date Expiration Date V isits Requested Visits Authorized [id number] Closed Specialty Services Required 04/19/2024 04/19/2025 12 12 Encounter Details Date Type Department Care Team (Late st Contact Info) Description 04/19/2024 Orders Only [facility] MEDICINE [address] [place], [place] [phone] Cinthya Ray MD [address] [place], [place] [phone] Type 2 diabetes mellitus with hyperglycemia, with [...] as of this encounter Plan of Treatment Pending Results Name Type Priority Associated Diagnoses Date /Time Referral to Endocrinology Outpatient Referral Urgent Type 2 diabetes mellitus with hyperglycemia, with long-term current use of insulin ([facility]) 04/30/2024 Scheduled Referrals Name Type Priority Associated Diagnoses Order Schedule Referral to Endocrinology Outpatient Referral Urgent Type 2 diabetes mellitus with hyperglycemia, with long-term current use of insulin ([facility]) Expected: 04/19/2024 (Approximate), Expires: 04/19/2025 [...] hyperglycemia, with long-term current use of insulin ([facility])- Primary documented in this encounter Additional Health Concerns Assessment Noted Time PHQ-9 Depression Total Score: 11 024 9:48 AM EDT documented as of this encounter Care Teams Subsystems Engineer Relationship Specialty Start Date End Date Cinthya Ray MD [address] [place] [address] PCP - General Family Medicine 10/23/11 Maytio Acuña PharmD [address] [place] [address] Pharmacist Internal Medicine 03/07/23 04/22/24 documented as of this encounter
--- OUTSIDE RECORDS SUMMARY | 2024-10-14 15:52 | XMS_ITS | Clinical Summary ---
Author Organization [email or web address] Address [address] [place] [address] 7 [place] [address] Care Team Providers Care Celery Stripper Name Role Phone Cinthya Ray MD Primary Care Provider [phone] Allergies No known active allergies Medications * This document contains information received from the source organization and may not represent a complete record from that organization. TRUEplus Lancets 33G miscIndications: Type 2 diabetes mellitus with hyperglycemia ([facility]) TEST BLOOD SUGAR FOUR TIMES [...] of insulin ([facility]) Chew 2 g Once per [...] per day. 90 tablet 3 024 Active Continuous Glucose Chancellor (FreeStyle Audrey 3 [place]) deviceIndication s:Type 2 diabetes mellitus with hyperglycemia, [...] of insulin ([facility]/HCC) INJECT 35 UNITS SUBCUTANEOUSLY ONCE EVERY DAY, may increase by 2 units every 72 hours for fasting blood sugar above 130. MAX DAILY DOSE 45 UNITS PER DAY PATIENT CAN INJECT. 45 mL 3 025 Active insulin pen needle (BD Pen Needle Rowena 2nd Gen) 32G x 4 mm misc USE WITH INSULIN ONCE A DAY 100 each 025 Active Alcohol Swabs (Alcohol Prep) 70 % padsIndications: Type 2 diabetes mellitus with hyperglycemia (CMS/HCC) Check blood sugar 4 times daily or as needed 100 each 025 Active SUMAtriptan (Imitrex) 25 MG tabletIndication s:Injury of head, initial encounter TAKE 1 TAB ORALLY AFTER MIGRAINE ONSET MAY REPEAT AFTER 2HRS IF HEADACHE RETURNS,MAX 200MG IN 24HRS 9 tablet 025 Active Continuous Glucose Sensor (FreeStyle Audrey 2 Sensor) misc Scan at least every 8 hours. Change sensor every 14 days. 2 each 1 025 Active metFORMIN XR (Glucophage-XR) 500 MG 24 hr tablet TAKE 2 TABLETS BY MOUTH TWICE DAILY WITH BREAKFAST AND WITH DINNER, DO NOT BREAK, CRUSH, DISSOLVE OR CHEW 360 tablet 1 025 Active fluconazole (Diflucan) 150 MG tabletIndication s:Candidiasis Take 1 tab po once, repeat on day 3 2 tablet 025 Active clotrimazole (Lotrimin) 1 % vaginal creamIndications :Vulvovaginal Candidiasis Insert one applicator per vagina at bedtime for 7 nights 45 g 025 Active insulin aspart FlexPen (NovoLOG) 100 UNIT/ML pen INJECT 5 UNITS (0.05 ML) SUBCUTANEOUSLY 3 TIMES A DAY WITH BREAKFAST, LUNCH AND DINNER 025 Active Mounjaro 2.5 MG/0.5ML solution auto-injector INJECT 1 PEN (2.5 MG) SUBCUTANEOUSLY ONCE EVERY WEEK FOR 4 WEEKS 025 Active lamoTRIgine (LaMICtal) 25 MG tablet PLEASE SEE ATTACHED FOR DETAILED DIRECTIONS 025 Active loratadine (Claritin) 10 MG tablet TAKE 1 TABLET BY MOUTH EVERY DAY 90 tablet 025 Active Baqsimi Two Pack 3 MG/DOSE nasal powder SPRAY 3 MG INTRANASALLY ONCE 025 Active insulin lispro (HumaLOG) 100 UNIT/ML injection INJECT 6 UNITS (0.06 ML) SUBCUTANEOUSLY 2 TIMES A DAY FOR 30 DAYS BEFORE BREAKFAST AND SUPPER 025 Active lamoTRIgine (LaMICtal) 100 MG tablet PLEASE SEE ATTACHED FOR DETAILED DIRECTIONS 025 Active Ozempic, 1 MG/DOSE, 4 MG/3ML solution pen-injector 1 MG (0.75 ML) SUBCUTANEOUSLY EVERY WEEK FOR 28 DAYS 025 Active ondansetron (Zofran) 4 MG tabletIndication s:Chronic migraine without aura with status migrainosus, not intractable Take 1 tablet (4 mg) by mouth every 8 (eight) hours if needed for nausea or vomiting for up to 7 days. Take with Ketorolac 10mg and Benadryl 50mg for migraine cocktail 20 tablet 025 2024 Active diphenhydrAMINE (BENADryl) 25 MG tabletIndication s:Chronic migraine without aura with status migrainosus, not intractable Take 2 tablets (50 mg) by mouth if needed each day (headache). Take with Zofran and Toradol for migraine cocktail 30 tablet 025 2024 Active ketorolac (Toradol) 10 MG tabletIndication s:Chronic migraine without aura with status migrainosus, not intractable TAKE 1 TABLET BY MOUTH EVERY 8 HOURS IF NEEDED FOR MODERATE PAIN FOR UP TO 5 DAYS. TAKE ONE WITH BENADRYL AND ZOFRAN FOR MIGRAINE PROPHYLAXIS 15 tablet Active metFORMIN XR (Glucophage-XR) 500 MG 24 hr tablet TAKE 2 TABLETS BY MOUTH TWICE DAILY WITH BREAKFAST AND WITH DINNER. DO NOT BREAK, CRUSH, 360 tablet 1 025 2024 Discontinued ondansetron (Zofran) 4 MG tablet Take 1 tablet (4 mg) by mouth every 8 (eight) hours if needed for nausea or vomiting. 30 tablet 025 2024 Discontinued loratadine (Claritin) 10 MG tablet Take 1 tablet (10 mg) by mouth Once per day. 90 tablet 025 2024 Discontinued fluconazole (Diflucan) 150 MG tabletIndication s:Vaginal itching Take 1 tablet (150 mg) by mouth Once per day. 2 tablet 025 2024 Discontinued(R eorder (will not trigger notification to Pharmacy)) ketorolac (Toradol) 10 MG tabletIndication s:Chronic migraine without aura with status migrainosus, not intractable Take 1 tablet (10 mg) by mouth every 8 (eight) hours if needed for moderate pain for up to 5 days. Take one with Benadryl and Zofran for migraine prophylaxis 15 tablet 025 2024 Discontinued Active Problems Problem Noted Date Diagnosed Date Severe episode of recurrent major depressive disorder, without psychotic features 10/09/2024 Hypotension 05/04/2024 Assessment & Plan (05/04/2024 4:51 [...] for vaginal candidiasis and follow-up vaginal swab. Mild intermittent asthma without complication Assessment & Plan (01/27/2024 3:31 PM EST): Well-controlled. Chronic left shoulder pain 01/27/2024 Assessment & Plan (05/04/2024 4:55 AM EDT): - following with [facility] - Dx impingement syndrome - completed [...] both her parents. She had services with [facility] for psychiatry and individual therapy, but lost [...] information. Pt prefers to utilized [facility] with [facility] for same-day appointments. Pt will request psychopharmacology and individual therapy. clinician will follow-up to provide additional support. Sen's esophagus 09/09/2023 Assessment & Plan (11/30/2023 1:26 PM EDT): -Following with [facility], last seen on -06/30/23 EGD Sen esophagus with mild chronic active inflammation, stomach mild chronic inactive inflammation, normal duodenum. -Repeat EGD in 2 years -Continue pantoprazole Assessment & Plan (09/09/2023 6:00 AM EDT): -Following with [facility], last seen on -06/30/23 EGD Sen [...] increased panic attacks and anxiety -Rx Hydroxyzine Elevated blood pressure read ing without diagnosis [...] considering a bariatric surgery and went to [facility] wt management clinic. She restarted going to [facility]. - She had worked with our diabetes education nurse, Ene Arias from Nov to Dec 2021. - Graduated from [facility]. - Eye exam: 01/28/24. [facility]. Nonregenerative diabetic retinopathy, bilateral, mild. - Comprehensive [...] considering a bariatric surgery and went to [facility] management clinic. She restarted going to [facility] management clinic. - She had worked with our diabetes education nurse, Ene Arias from Nov to Dec 2021. - Currently showing good attendance to [facility]; appreciated her effort - Eye exam: 01/24/23 [facility]. No diabetic retinopathy - Comprehensive [...] considering a bariatric surgery and went to [facility] management clinic - She had worked with our diabetes education nurse, Ene Arias from Nov to Dec 2021. - Currently showing good attendance to [facility]; appreciated her effort - Eye exam: 01/24/23 [facility]. No diabetic retinopathy - Comprehensive [...] considering a bariatric surgery and went to [facility] wt management clinic - She had worked with our diabetes education nurse, Ene Arias from Nov to Dec 2021. - Currently showing good attendance to [facility]; appreciated her effort - Eye exam: 01/24/23 [facility]. No diabetic retinopathy - Comprehensive Foot [...] considering a bariatric surgery and went to [facility] wt management clinic - She had worked with our diabetes education nurse, Ene Arias from Nov to Dec 2021. - Currently showing good attendance to [facility]; appreciated her effort - Eye exam: 01/24/23 [facility]. No diabetic retinopathy - Comprehensive [...] considering a bariatric surgery and went to [facility] wt management clinic - She had worked with our diabetes education nurse, Ene Arias from Nov to Dec 2021. - Currently showing good attendance to [facility]; appreciated her effort - Eye exam: 01/24/23 [facility]. No diabetic retinopathy - Comprehensive [...] considering a bariatric surgery and went to [facility] management clinic - She had worked with our diabetes education nurse, Ene Arias from Nov to Dec 2021. - Refer to [facility] - Eye exam: 01/24/23 [facility]. No diabetic retinopathy - Comprehensive [...] considering a bariatric surgery and went to [facility] wt management clinic - She had worked with our diabetes education nurse, Ene Arias from Nov to Dec 2021. - Eye exam: 01/21/22 [facility]. No diabetic retinopathy - Comprehensive [...] considering a bariatric surgery and went to [facility] management clinic - She had worked with our diabetes education nurse, Ene Arias from Nov to Dec 2021. - Eye exam: 01/21/22 [facility]. No diabetic retinopathy - Comprehensive [...] considering a bariatric surgery and went to [facility] wt management clinic - She had worked with our diabetes education nurse, Ene Arias from Nov to Dec 2021. - Eye exam: 01/21/22 [facility]. No diabetic retinopathy - Comprehensive [...] considering a bariatric surgery and went to [facility] wt management clinic - She had worked with our diabetes education nurse, Ene Arias from Nov to Dec 2021. - Eye exam: 01/21/22 [facility]. No diabetic retinopathy - Comprehensive [...] considering a bariatric surgery and went to [facility] wt management clinic - She had worked with our diabetes education nurse, Ene Arias from Nov to Dec 2021. - Eye exam: 01/21/22 [facility]. No diabetic retinopathy - Comprehensive [...] considering a bariatric surgery and went to [facility] wt management clinic - She had worked with our diabetes education nurse, Ene Arias from Nov to Dec 2021. - Eye exam: 01/21/22 [facility]. No diabetic retinopathy - Comprehensive Foot exam: 09/26/21. Diabetic neuropathy - Lipid profile: 03/27/21 TC 248; TG 275; HDL 43; LDL 160. - Microalbumin: 03/27/21, UACR 43 - Dental appt: Recommended to schedule appt. Chronic migraine without aur a with status migrainosus, not intractable 02/12/2022 Assessment & [...] 2021. - completed Partial Hospitalization Program at [facility] 11/09/21 - 11/23/21 - current medication: none -Previous medication treatment Hx: venlafaxine was self-discontinued; trazodone was prescribed by psychiatrist while she was attending [facility], but pt self-discontinued due to ineffectivenss; sertraline 50 mg daily, patient self-discontinued. - previously seeing [facility] clinician and waiting for psychiatrist, patient has not been engaged in behavioral health therapy currently. - contacted by integrated behavioral health service and was referred to off-site service - patient has developed healthy coping skills Assessment & Plan (11/30/2023 1:22 PM EDT): - MDD vs. bipolar - severe exacerbation of Depression w/ SI in October 2021. - completed Partial Hospitalization Program at [facility] 11/09/21 - 11/23/21 - current medication: none -Previous medication treatment Hx: venlafaxine was self-discontinued; trazodone was prescribed by psychiatrist while she was attending [facility], but pt self-discontinued due to ineffectivenss; sertraline 50 mg daily, patient self-discontinued. - previously seeing [facility] clinician and waiting for psychiatrist, patient has not been engaged in behavioral health therapy currently. - contacted by integrated behavioral health service and was referred to off-site service - patient has developed healthy coping skills Assessment & Plan (03/07/2023 5:55 AM EST): - MDD vs. bipolar - severe exacerbation of Depression w/ SI in October 2021. - completed Partial Hospitalization Program at [facility] 11/09/21 - 11/23/21 - current medication: none -Previous medication treatment Hx: venlafaxine was self-discontinued; trazodone was prescribed by psychiatrist while she was attending [facility], but pt self-discontinued due to ineffectivenss; sertraline 50 mg daily, patient self-discontinued. - previously seeing [facility] clinician and waiting for psychiatrist, patient has not been engaged in behavioral health therapy currently. - will consider referring back Assessment & Plan (11/12/2022 4:17 PM EDT): - severe exacerbation of Depression w/ SI in October 2021. - completed Partial Hospitalization Program at [facility] 11/09/21 - 11/23/21 - Medication: Sertraline 50 mg daily -Previous medication treatment Hx: venlafaxine was self-discontinued; trazodone was prescribed by psychiatrist while she was attending [facility], but pt self-discontinued due to ineffectivenss - still on waiting list for outpatient appt with psychiatrist and therapist. - Able to contract her safety today - Continue BHS with [facility] Assessment & Plan (08/30/2022 12:43 PM EDT): - severe exacerbation of Depression w/ SI in October 2021. - completed Partial Hospitalization Program at [facility] 11/09/21 - 11/23/21 - Medication: Sertraline 50 [...] 2021. - completed Partial Hospitalization Program at [facility] 11/09/21 - 11/23/21 - Medication treatment Hx [...] 2021. - completed Partial Hospitalization Program at [facility] 11/09/21 - 11/23/21 - Medication treatment Hx [...] 2021. - completed Partial Hospitalization Program at [facility] 11/09/21 - 11/23/21 - Medication treatment Hx --venlafaxine was self-discontinued --trazodone was prescribed by psychiatrist while she was attending [facility], but pt self-discontinued due to ineffectivenss - still on waiting list for outpatient appt with psychiatrist and therapist. - Able to contract her safety today - Continue BHS with [facility] Assessment & Plan (02/22/2022 4:28 PM EST): - severe exacerbation of Depression w/ SI in October 2021. - completed Partial Hospitalization Program at [facility] 11/09/21 - 11/23/21 - Medication treatment Hx --venlafaxine was self-discontinued --trazodone was prescribed by psychiatrist while she was attending [facility], but pt self-discontinued due to ineffectivenss - [...] previously participated weight management program at [facility], recently started seeing them again. - goal of wieght being 171 lbs to get surgery done. - continue working on lifestyle modifications - associated comorbidity: STELLA, diabetes mellitus type 2 - continue GLP1RA - patient is restricting food intake and discussed about its harmful effect. She is on GLP1RA and is having side effects. Will try to consult with both kiln loader and surgical weight loss provider. Surgical weight loss is not indicated and patient still may need to take medications. Assessment & Plan (01/27/2024 3:27 PM EST): - previously participated weight management program at [facility], recently started seeing them again. - goal of wieght being 171 lbs to get surgery done. - continue working on lifestyle modifications - associated comorbidity: STELLA, DM2 Assessment & Plan (11/26/2023 2:16 PM EDT): - previously participated weight management program at [facility] - continue working on lifestyle modifications - associated comorbidity: STELLA, DM2 Assessment & Plan (11/18/2022 7:07 AM EDT): - previously participated weight management program at [facility] - [facility] working on lifestyle modifications - associated comorbidity: STELLA, DM2 Assessment & Plan (04/04/2022 7:14 PM EST): - previously participated weight management program at [facility] working on lifestyle modifications - associated comorbidity: STELLA, DM2 Assessment & Plan (02/22/2022 4:37 PM EST): - previously participated weight management program at [facility] - [facility] working on lifestyle modifications - associated comorbidity: STELLA, DM2 Resolved Problems Problem Noted Date Diagnosed Date Resolved Date Vaginal discharge 04/06/2024 10/09/2024 Assessment & Plan (04/06/2024 5:09 PM EST): Rule out vaginal candidiasis, treat with fluconazole x 1 dose and follow-up vaginal swab results Viral upper respiratory infection 02/26/2024 10/09/2024 Assessment & Plan (02/26/2024 2:30 PM EST): [...] discussed. -Seek medical attention for worsening symptoms. Dysphagia 06/13/2023 11/30/2023 Assessment & Plan (06/13/2023 [...] frequent BM - consider gastric emptying study Left ear pain 05/21/2022 10/09/2024 Assessment & Plan (05/21/2022 12:42 PM EDT): Benign Ear Exam -Treatment for sub-acute Otitis Media in April 2022 with Augmentin -Normal Head CT on 05/02/22 -Patient was referred to an ENT Specialist, and anticipating an appointment Right sided abdominal pain 04/04/2022 0 04/27/2023 [...] Encounters Date Type Department Care Team Description 10/09/2024 9:20 AM EDT Office Visit [facility] [address] [place] [id number] Megan Ortez MD Chronic migraine without aura with status migrainosus, not intractable (Primary Dx); Severe episode of recurrent major depressive disorder, without psychotic features (CMS/HCC); Mild intermittent asthma without complication 10/09/2024 Telephone [facility] [address] [place], [place] [phone] Estefany Chang MD 10/09/2024 Refill [facility] [address] [place] [address] Megan Ortez MD Chronic migraine without aura with status migrainosus, not intractable 10/09/2024 Travel 10/09/2024 Refill [facility] [address] [place] [address] Cinthya Ray MD 10/08/2024 Telephone [facility] [address] [place] [address] Cinthya Ray MD 10/07/[address] [address] Hilda Diaz, RN NTTS Triage 10/01/2024 8:00 AM EDT Office Visit [facility] [address] [place] [address] DaljitBhaskarDemario Dental calculus (Primary Dx) 09/30/2024 Travel 09/27/2024 Orders Only GENERIC EXTERNAL DATA DEPARTMENT Provider, Generic External Data 09/23/2024 9:20 AM EDT Office Visit [facility] [address] [place] [id number] Sonali Tellez MD Vaginal itching (Primary Dx); Candidiasis 09/23/2024 Travel 09/23/[address] [address] Cinthya Ray MD Nurse Triage 09/15/[address] [address] Cinthya Ray MD 08/24/[address] [address] Cinthya Ray MD Nurse Triage 08/23/2024 Orders Only GENERIC EXTERNAL DATA DEPARTMENT Provider, Generic External Data 08/12/[address] [address] Rianna Solis RNmechanical and auto body car checker 07/23/2024 Travel 07/22/2024 Results Follow-Up [address] [address] Ysabel Dejesus NP POCT Urinalysis, Chlamydia/N. Gonorrhoeae RNA, TMA, Urogenitial, Bacterial Vaginosis Panel, POCT Glucose 07/21/2024 2:30 PM EDT Office Visit [address] [address] Ysabel Dejesus NP Vaginal itching (Primary Dx); Type 2 diabetes mellitus with hypoglycemia without coma, with long-term current use of insulin ([facility]) 07/21/2024 Travel 07/21/[address] [address] Cinthya Ray MD Nurse Triage 07/20/2024 Refill [facility] [address] [place], [place] [phone] Cinthya Ray MD Type 2 diabetes mellitus with hyperglycemia, with long-term current use of insulin ([facility]) 07/19/2024 Refill [facility] [address] [place], [place] [phone] Sonali Tellez MD from Last 3 Months Immunizations Immunization Administration [...] (196 lb) 10/09/2024 9:23 AM EDT Height 157.5 cm (5' 2 ) 07/21/2024 2:31 PM EDT Body Mass Index 35.85 07/21/2024 2:31 PM EDT Plan of Treatment Health Maintenance Due Date Last Done Comments Family Planning (PISQ) 02/26/2007 HPV Vaccines (1 - 3-dose series) 02/26/2007 Dental Oral Exam 02/08/2023 08/08/2022 SDOH Screening 06/09/2024 06/10/2023 Cervical Cancer Screening 07/24/2024 HPV/Cotest 07/24/2024 Pap Smear 07/24/2024 07/24/2021 COVID-19 Vaccine ( season) 2024 02/22/2021, 07/01/2020, 06/03/2020 Influenza Vaccine (#1) 2024 8, 04/10/2017, 10/24/2014, Additional history exists Depression Monitoring 11/03/2024 05/03/2024, 025 Diabetes: Hemoglobin A1C 11/03/2024 025, 01/26/2024, 11/26/2023, Additional history exists Diabetes: Foot Exam 11/25/2024 11/26/2023, 11/26/2023, 11/26/2023, Additional history exists Diabetes: Urine Protein Screening 11/25/2024 11/26/2023, 09/12/2023, 08/29/2022, Additional history exists Lipid Panel 11/25/2024 11/26/2023, 08/0 03/2023, 06/11/2023, Additional history exists Eye Exam 01/24/2025 01/24/2023 Alcohol/Substance Use Screening 01/26/2025 01/27/2024 Dental Prophylaxis 04/04/2025 10/01/2024, 1 04/01/2023, 06/04/2023, Additional history exists Disability Screening 05/03/2025 05/03/2024 Dental X-Ray: Full Mouth 08/09/2025 08/08/2022 DTaP/Tdap/Td Vaccines (8 - Td or Tdap) 08/28/2025 08/29/2015, 01/06/2012, 09/17/2005, Additional history exists Dental X-Ray: Bitewings 10/02/2025 10/02/19 25, 06/04/2023, 08/08/2022 Tobacco Screening 10/09/2025 10/09/2024 Zoster Vaccines (1 of 2) 02/26/2042 RSV [...] Years) and At-Risk Patients (6 to 49) Years Completed 04/08/2023, 04/10/2017 HIV Screening Completed 11/26/2023, 08/12, 06/11/2023, Additional history exists Hepatitis C Screening Completed 11/26/2023 , 09/10/2023, 06/11/2023, Additional history exists Meningococcal B Vaccine Aged Out No l [...] Procedure Name Priority Date/Time Associated Diagnosis Comments COMPREHENSIVE PERIODONTAL EVALUATION - NEW OR ESTABLISHED PATIENT Routine 10/01/2024 8:00 AM EDT CASE PRESENTATION, DETAILED AND EXTENSIVE TREATMENT PLANNING Routine 10/01/2024 8:00 AM EDT INTRAORAL - PERIAPICAL EACH ADDITIONAL RADIOGRAPHIC IMAGE Routine 10/01/2024 8:00 AM EDT INTRAORAL - PERIAPICAL FIRST RADIOGRAPHIC IMAGE Routine 10/01/2024 8:00 AM EDT BITEWINGS - 4 RADIOGRAPHIC IMAGES Routine 10/01/2024 8:00 AM EDT ORAL HYGIENE INSTRUCTIONS Routine 10/01/2024 8:00 AM EDT PROPHYLAXIS - ADULT Routine 10/01/2024 8 :00 AM EDT GLUCOSE, WHOLE BLOOD Routine 09/27/2024 2:18 PM EDT POCT URINALYSIS DIPSTICK Routine 09/23/2024 9:30 AM EDT Vaginal itching GLUCOSE, WHOLE BLOOD Routine 08/23/2024 10:08 AM EDT POCT URINALYSIS DIPSTICK Routine 07/21/2024 3:15 PM EDT Vaginal itching POCT GLUCOSE Routine 07/21/2024 3:07 PM EDT Vaginal itching BACTERIAL VAGINOSIS PANEL Routine 07/21/2024 12:00 AM EDT Vaginal itching CHLAMYDIA/N. GONORRHOEAE RNA, TMA, UROGENITAL Routine 07/21/2024 12:00 AM EDT Vaginal itching POCT GLYCOSYLATED HEMOGLOBIN (HGB A1C) Routine 05/03/2024 [...] with long-term current use of insulin (CMS/HCC) DIABETES EYE EXAM Routine 01/24/2023 INTRAORAL - COMPLETE SERIES OF RADIOGRAPHIC IMAGES Routine 08/08/2022 4:00 PM EDT Encounter for dental examination COMPREHENSIVE ORAL EVALUATION - NEW OR ESTABLISHED PATIENT Routine 08/08/2022 4:00 PM EDT THINPREP IMAGING SYSTEM PAP Routine 07/24/2021 4:01 PM EDT from Last 3 Months or Most Recently Relevant to Health Maintenance Results * (ABNORMAL) Glucose, Whole Blood (09/27/2024 2:18 PM EDT) Only the most recent of2 resultswithin the time period is included. Glucose, Whole Blood 273(H) 60 - 115 mg/dL [facility] Comment:METER #: [id number] 0Testing performed in the Endocrinology Department [address] , [address], [facility]. 09/27/2024 2:18 PM EDT 09/27/2024 2:21 PM EDT us Generic External Data Provider LAB BLOOD ORDERAB LES Final Result [facility] [address] [place] [address] [phone] * POCT urinalysis dipstick manually resulted (09/23/2024 9:30 AM EDT) Only the most recent of2 resultswithin the time period is included. Color, UA Yellow Clarity, UA Clear Glucose, UA Many Comment:500 mg/dL Bilirubin, UA Negative Ketones, UA Positive Comment:15 mg/dL Spec Grav, UA 1.015 Blood, UA Negative Negative, None Detected pH, UA 6.5 Protein, UA Negative Urobilinogen, UA 0.2 Leukocytes, UA Negative Negative, Rare, Trace Nitrite, UA Negative Negative, None Detected Urine 09/23/2024 9:30 AM EDT Sonali Tellez MD POINT OF CARE TEST ENTER/E DIT ORDERABLES Final Result * (ABNORMAL) POCT Glucose (07/21/2024 3:07 PM EDT) Glucose Blood, POC 253(A) 60 - 200 mg/dL QC Media Lot # [id number] Lot# Expiration Date Blood Capillary blood specimen / Unknown 07/21/2024 3:07 PM EDT Ysabel Dejesus NP POINT OF CARE TEST ENTER/EDIT O RDERABLES Final Result * (ABNORMAL) Bacterial Vaginosis Panel (07/21/2024 12:00 AM EDT) TRICHOMONAS VAGINALIS DETECTION BY PCR NOT DETECTED Not Detect [facility] BACTERIAL VAGINOSIS DETECTION BY PCR NEGATIVE Negative [facility] Comment:The BV [...] of 14. DEYANIRA GROUP DETECTION BY PCR DETECTED(A) Not Detect [facility] Deyanira glab krusei PCR NOT DETECTED Not Detect [facility] Swab Vaginal structure / Unknown 07/21/2024 07/21/2024 Ysabel Anjelica BRYANT LAB MICROBIOLOGY - GENERAL CHERYL VARGAS Final Result [facility] [address] [place] [address] [phone] * Chlamydia/N. Gonorrhoeae RNA, TMA, Urogenitial (07/21/2024 12:00 AM EDT) CT PCR NOT DETECTED Not Detect. [facility] [...] to adverse medical, social or psychologicalconsequences. Swab Vaginal structure / Unknown 07/21/2024 07/21/2024 Narrative [facility] - 07/22/2024 2:19 PM EDT Vaginal Ysabel Dejesus NP LAB MICROBIOLOGY - GENERAL CHERYL VARGAS Final Result [facility] [address] [place] [address] [phone] * (ABNORMAL) POCT glycosylated hemoglobin (Hgb A1c) (05/03/2024 3:35 PM EDT) Hemoglobin A1C 6.5(A) 4.0 - 6.0 % QC Media Lot # [id number] Lot# Expiration Date [id number] Blood Capillary blood specimen / Unknown 05/03/2024 3:35 PM EDT Cinthya Ray MD POINT OF CARE TEST ENTER/EDIT OR DERABLES Final Result * (ABNORMAL) Lipid Panel with Reflex to Direct LDL (11/26/2023 11:30 AM EDT) Triglycerides 145 <150 mg/dL [facility] Comment:Desirable Triglyceri de: less than 150 [...] 190 mg/dL HDL Cholesterol 32(L) >40 mg/dL [facility] Comment:Desirable HDL: great er than 40 mg/dL Note: This HDL assay may give artificially low results in patients with liver disease. Blood 11/26/2023 11:3 0 AM EDT 11/26/2023 1:20 PM EDT us Cinthya Ray MD LAB BLOOD ORDERABLES Final Resul t Performing Organization Address [facility]/ZIP Co de Phone Number [facility] [address] [place] [phone] * Hepatitis C Antibody with Reflex [...] ORDERABLES Final Resul t Performing Organization Address [facility] Co de Phone Number [facility] [address] [place] [phone] * HIV-1/2 Antigen and Antibodies, Fourth Generation, with Reflexes (11/26/2023 11:30 AM EDT) HIV AB/AG Nonreactive Nonreactive [facility] Comment:HIV-1 p24 Ag and/or HIV-1/HIV-2 Ab not detected.A test result that is nonreactive does not exclude thepossibility of exposure to or infection with HIV-1 and/orHIV-2. Nonreactive results in this assay for individualswith prior exposure to HIV-1 and/or HIV-2 may be due toantigen and antibody levels that are below the limit ofdetection of this assay.The [employer] HIV Ag/Ab Combo assay result andsupplemental assay results should be interpreted inconjunction with the patient's clinical presentation,history and other laboratory results. If the results areinconsistent with clinical evidence, additional testing issuggested to confirm the result. Blood Venous blood specimen / Unknown 11/26/2023 11:30 AM EDT 11/26/2023 1:20 PM EDT Cinthya Ray MD LAB BLOOD ORDERABLES Final Resul t Performing Organization Address [facility] Co de Phone Number [facility] [address] [place] [phone] * Albumin, Random Urine W/Creatinine (11/26/2023 12:00 AM EDT) Creatinine, Urine 238.24 mg/dL [facility] Microalbumin Urine 23.0 mg/L [facility] Microalbum Creatinine Ratio Ur 9.6 <30 ug/mg cr [facility] Comment:Albumin/Creatinine R atio Reference Ranges: Normal: < 30 ug/mg creatinine Microalbuminuria: 30 - 300 ug/mg creatinineClinical Albuminuria: > 300 ug/mg creatinine Urine 11/26/2023 11/26/2023 Cinthya Ray MD LAB URINE ORDERABLES Final Resul t Performing Organization Address [facility] Co de Phone Number [facility] [address] [place] [phone] * Diabetes Eye Exam (01/24/2023) Eye Exam Normal Normal Comment:[facility] 01/24/2023 Historical Provider HEALTH MAINTENANCE Final Result * THINPREP TIS PAP (07/24/2021 4:01 PM EDT) Clinical Information: None given [facility] COMMENT SEE COMMENT [facility] Comment: EXPLANATORY NOTE: The Pap is a screening test for cervical cancer. It is not a diagnostic test and is subject to false negative and false positive results. It is most reliable when a satisfactory sample, regularly obtained, is submitted with relevant clinical findings and history, and when the Pap result is evaluated along with historic and current clinical information. COMMENT: This Pap test has been evaluated with computer assisted technology. [facility] Time Clock Repairer : SEE COMMENT [facility] Comment: MXD, CT (ASCP) CT screening location: [place] [address] Interpretation/R esult: Negative for intraepithelial lesion or malignancy. [facility] LMP: NONE [facility]IV[facility] Prev. BX: NONE [facility]IV[facility] Prev. PAP: NONE [facility]IV[facility] SOURCE: None given [facility] Statement Of Adequacy: SEE COMMENT [facility] Comment: Satisfactory for evaluation. Endocervical/transformation zone component present. Age and/or menstrual status not provided 07/24/2021 4:01 PM EDT us Cinthya Ray MD LAB PATHOLOGY ORDERABLES Final R esult [facility] [address] from Last 3 Months or Most Recently Relevant to Health Maintenance Insurance [facility] C3 DENTAL-[facility] MEDICAID STAND ADULT Care Teams Celery Stripper Relationship Specialty Start Date End Date Cinthya Ray MD [address] [place] [address] PCP - General Family Medicine 10/23/11
--- OUTSIDE RECORDS SUMMARY | 2024-10-14 15:52 | XMS_ITS | Encounter Summary ---
Author Organization [email or web address] Address [address] [facility] 7 [place] [address] Care Team Providers Care Tie Cutter Name Role Phone Cinthya Ray MD Primary Care Provider [phone] Reason for Visit * Reason Onset Date Comments Med Refill 06/18/2024 Encounter Details Date Type Department Care Team (Late st Contact Info) Description 06/18/2024 Refill [facility] & PEDS [address] [place] [address] Cinthya Ray MD [address] [place] [address] Injury of head, initial encounter Social History [...] as of this encounter Care Teams Tie Cutter Relationship Specialty Start Date End Date Cinthya Ray MD [address] [place] [address] PCP - General Family Medicine 10/23/11 documented as of this encounter
--- OUTSIDE RECORDS SUMMARY | 2024-10-14 15:53 | XMS_ITS | Encounter Summary ---
Author Organization [employer] Address [address] [place] [address] 7 [place] [address] Care Team Providers Care High School Agriculture Teacher Name Role Phone Cinthya Ray MD Primary Care Provider [phone] Mayito Acuña PharmD Unavailable [phone] Reason for Visit * Reason Onset Date Comments Med Refill 11/02/2023 Encounter Details Date Type Department Care Team (Late st Contact Info) Description 11/02/2023 Refill [facility] [address] [place], [place] [phone] Cinthya Ray MD [address] [place], [place] [phone] Social History Tobacco Use Types Packs/Day Years [...] but unableto make. Pt will come to [facility] today open till 8pm. Pt reports drinking [...] Gill Sent: 11/10/2023 5:32 PM EDT To: [facility] Front Office Subject: Appointment Request Appointment Request From: Sonali Rosa With Provider: Cinthya Ray MD [[facility]] Preferred Date Range: 11/11/2023 - [...] documented as of this encounter Care Teams High School Agriculture Teacher Relationship Specialty Start Date End Date Cinthya Ray MD [address] [place] [address] PCP - General Family Medicine 10/23/11 Mayito Acuña PharmD [address] [place] [address] Pharmacist Internal Medicine 03/07/23 04/22/24 documented as of this encounter
--- OUTSIDE RECORDS SUMMARY | 2024-10-14 15:53 | XMS_ITS | Encounter Summary ---
Author Organization [employer] Address [address] [place] [address] 7 [place] [address] Care Team Providers Care Adjunct Art History Instructor Name Role Phone Cinthya Ray MD Primary Care Provider [phone] Reason for Visit * Reason Comments Med Refill Encounter Details Date Type Department Care Team ([facility] st Contact Info) Description 10/09/[address] [facility] [address] [place], [place] [phone] Cinthya Ray MD [address] [place] [address] Social History Tobacco Use Types Packs/Day Years [...] documented as of this encounter Care Teams Adjunct Art History Instructor Relationship Specialty Start Date End Date Cinthya Ray MD [address] [place] [address] PCP - General Family Medicine 10/23/11 documented as of this encounter
--- OUTSIDE RECORDS SUMMARY | 2024-10-14 15:53 | XMS_ITS | Encounter Summary ---
Author Organization [employer] Address [address] [place] [address] 7 [place] [address] Care Team Providers Care Urologic Surgeon Name Role Phone Cinthya Ray MD Primary Care Provider [phone] Mayito Acuña PharmD Unavailable [phone] Reason for Visit * Reason Onset Date Comments Med Refill 10/30/2023 Encounter Details Date Type Department Care Team (Late st Contact Info) Description 10/30/2023 Refill [facility] [address] [place], [place] [phone] Cinthya Ray MD [address] [place], [place] [phone] Social History Tobacco Use Types Packs/Day Years [...] documented as of this encounter Care Teams Urologic Surgeon Relationship Specialty Start Date End Date Cinthya Ray MD [address] [place] [address] PCP - General Family Medicine 10/23/11 Mayito Acuña PharmD [address] [place] [address] Pharmacist Internal Medicine 03/07/23 04/22/24 documented as of this encounter
--- OUTSIDE RECORDS SUMMARY | 2024-10-14 15:53 | XMS_ITS | Encounter Summary ---
Author Organization [employer] Address [address] [facility] 7 [place] [address] Care Team Providers Care Civil Engineering Professional Name Role Phone Cinthya Ray MD Primary Care Provider Mayito Acuña PharmD Unavailable [phone] Reason for Visit * Reason Onset Date Comments Med Refill 10/30/2023 Encounter Details Date Type Department Care Team (Late st Contact Info) Description 10/30/2023 Refill [facility] MED & PEDS [address] [place], [place] [phone] Cinthya Ray MD [address] [place], [place] [phone] Type 2 diabetes mellitus with hyperglycemia, without long-term current use of insulin ([facility]) Social History Tobacco Use Types [...] without long-term current use of insulin ([facility]) documented in this encounter Additional Health Concerns Assessment Noted Time PHQ-9 Depression Total Score: 11 024 9:48 AM EDT documented as of this encounter Care Teams Civil Engineering Professional Relationship Specialty Start Date End Date Cinthya Ray MD [address] [place] [address] PCP - General Family Medicine 10/23/11 Mayito Acuña PharmD [address] [place] [address] Pharmacist Internal Medicine 03/07/23 04/22/24 documented as of this encounter
--- OUTSIDE RECORDS SUMMARY | 2024-10-14 15:53 | XMS_ITS | Encounter Summary ---
Author Organization [employer] Address [address] [place] [address], [place] [address] Care Team Providers Care Webbing Inspector Name Role Phone Cinthya Ray MD Primary Care Provider [phone] Mayito Acuña PharmD Unavailable [phone] Reason for Referral * Consultation (Routine) - Closed Specialty Diagnoses / Procedures Referred By Ramya waller Referred To Contact Orthopaedic Surgery Diagnoses Chronic left shoulder pain Cinthya Ray MD [address] [place] [address] Phone: tel: fax: [facility] [address] [place] [address] Phone: tel: Referral ID Status Reason Start Date Expiration Date V isits Requested Visits Authorized [id number] Closed Specialty Services Required 02/05/2024 02/04/2025 6 6 Encounter Details Date Type Department Care Team (Late st Contact Info) Description 02/05/2024 Orders Only [facility] [address] [place] [phone] Cinthya Ray MD [address] [place] [address] [phone] Chronic left shoulder pain (Primary Dx) Social [...] Hemoglobin A1c < 7 Result Component 6.5( 5 3:35 PM EDT) No Mayito Acuña, Citlali documented as of this encounter Visit Diagnoses Diagnosis Chronic left shoulder pain- Primary Pain in joint, shoulder region documented in this encounter Additional Health Concerns Assessment Noted Time PHQ-9 Depression Total Score: 11 024 9:48 AM EDT documented as of this encounter Care Teams Webbing Inspector Relationship Specialty Start Date End Date Cinthya Ray MD [address] [place] [address] PCP - General Family Medicine 10/23/11 Mayito Acuña, DyanD [address] [place] [address] Pharmacist Internal Medicine 03/07/23 04/22/24 documented as of this encounter
--- OUTSIDE RECORDS SUMMARY | 2024-10-14 15:53 | XMS_ITS | Encounter Summary ---
Author Organization [employer] Address [address] [place] [address] 7 [place] [address] Care Team Providers Care Hearing Aide Technician Name Role Phone Cinthya Ray MD Primary Care Provider [phone] Mayito Acuña PharmD Unavailable [phone] Reason for Visit * Reason Comments Med Refill Encounter Details Date Type Department Care Team (Late st Contact Info) Description 08/31/2022 Refill [facility] [address] [place] [address] Starla Nñuez MD [address] [place], [place] [phone] Injury of head, initial encounter Social History [...] encounter documented in this encounter Care Teams Hearing Aide Technician Relationship Specialty Start Date End Date Cinthya Ray MD [address] [place] [address] PCP - General Family Medicine 10/23/11 Mayito Acuña PharmD [address] [place] [address] Pharmacist Internal Medicine 03/07/23 04/22/24 documented as of this encounter
--- OUTSIDE RECORDS SUMMARY | 2024-10-14 15:53 | XMS_ITS | Encounter Summary ---
Author Organization [employer] Address [address] [facility] 7t [place] [address] Care Team Providers Care Straw Hat Brusher Name Role Phone Cinthya Ray MD Primary Care Provider [phone] Encounter Details Date Type Department Care Team (Latest Contact Info) Description 10/09/2024 Travel Social History Tobacco Use Types Packs/Day [...] of this encounter Care Teams Straw Hat Brusher Relationship Specialty Start Date End Date Cinthya Ray MD [address] [place] [address] PCP - General Family Medicine 10/23/11 documented as of this encounter
--- OUTSIDE RECORDS SUMMARY | 2024-10-14 15:53 | XMS_ITS | Encounter Summary ---
Author Organization [employer] Address [address] [facility] 7 [place] [address] Care Team Providers Care Ship Ceiler Name Role Phone Cinthya Ray MD Primary Care Provider [phone] Mayito Acuña PharmD Unavailable [phone] Reason for Visit * Reason Onset Date Comments Med Refill 09/29/2023 Encounter Details Date Type Department Care Team (Late st Contact Info) Description 09/29/2023 Refill [facility] & PEDS [address] [place], [place] [phone] Cinthya Ray MD [address] [place], [place] [phone] Type 2 diabetes mellitus with hyperglycemia, without long-term current use of insulin ([facility]) Social History Tobacco Use Types [...] days 09/29/2023 9:48 AM EDT Evelia Ortiz Poor appetite or overeating Not at all [...] current use of insulin ([facility]) documented in this encounter Additional Health Concerns Assessment Noted Time PHQ-9 Depression Total Score: 11 024 9:48 AM EDT documented as of this encounter Care Teams Ship Ceiler Relationship Specialty Start Date End Date Cinthya Ray MD [address] [place] [address] PCP - General Family Medicine 10/23/11 Mayito Acuña PharmD [address] [place] [address] Pharmacist Internal Medicine 03/07/23 04/22/24 documented as of this encounter
--- OUTSIDE RECORDS SUMMARY | 2024-10-14 15:53 | XMS_ITS | Encounter Summary ---
Author Organization [employer] Address 75 [facility] 7 [place] [address] Care Team Providers Care Elevator Worker Name Role Phone Cinthya Ray MD Primary Care Provider [phone] Reason for Visit * Reason Comments Med Change Request Encounter Details Date Type Department Care Team ([facility] st Contact Info) Description 10/09/2024 Refill [facility] [address] [place] [phone] Megan Ortez MD [address] [place] [address] Chronic migraine without aura with status migrainosus, not intractable Social History Tobacco Use Types Packs/Day Years [...] without aura with status migrainosus, not intractable documented in this encounter Additional Health Concerns Assessment Noted Time PHQ-9 Depression Total Score: 14 025 3:57 PM EDT documented as of this encounter Care Teams Elevator Worker Relationship Specialty Start Date End Date Cinthya Ray MD [address] [place] [address] PCP - General Family Medicine 10/23/11 documented as of this encounter
--- OUTSIDE RECORDS SUMMARY | 2024-10-14 15:53 | XMS_ITS | Encounter Summary ---
Author Organization [employer] Address [address] [facility] 7 [place] [address] Care Team Providers Care Yeast Culture Operator Name Role Phone Cinthya Ray MD Primary Care Provider Mayito Acuña PharmD Unavailable [phone] Encounter Details Date Type Department Care Team (Late st Contact Info) Description 03/05/2024 Orders Only [facility] [address] [place], [place] [phone] Cinthya Ray MD [address] [place], [place] [phone] Type 2 diabetes mellitus with other specified complication, with long-term current use of insulin ([facility]) (Primary Dx) Social History Tobacco [...] complication, with long-term current use of insulin ([facility])- Primary documented in this encounter Additional Health Concerns Assessment Noted Time PHQ-9 Depression Total Score: 11 024 9:48 AM EDT documented as of this encounter Care Teams Yeast Culture Operator Relationship Specialty Start Date End Date Cinthya Ray MD [address] [place] [address] PCP - General Family Medicine 10/23/11 Mayito Acuña PharmD [address] [place] [address] Pharmacist Internal Medicine 03/07/23 04/22/24 documented as of this encounter
--- OUTSIDE RECORDS SUMMARY | 2024-10-14 15:53 | XMS_ITS | Encounter Summary ---
Author Organization [employer] Address 75 [facility] 7 [place] [address] Care Team Providers Care Forwarder Operator Name Role Phone Cinthya Ray MD Primary Care Provider [phone] Mayito Acuña PharmD Unavailable [phone] Encounter Details Date Type Department Care Team ([facility] st Contact Info) Description 08/05/2023 Orders Only [facility]S [address] [place] [address] Izzy Olvera FNP [address] [place] [address] Social History Tobacco Use Types Packs/Day Years [...] 100/69(2024 9:23 AM EDT) No Mayito Acuña PharmDao Hemoglobin A1c < 7 Result Component 6.5( 3:35 PM EDT) No Mayito Acuña PharmD documented as of this encounter Visit Diagnoses Not on filedocumented in this encounter Additional Health Concerns Assessment Noted Time PHQ-9 Depression Total Score: 0 06/10/19 24 2:55 PM EDT documented as of this encounter Care Teams Forwarder Operator Relationship Specialty Start Date End Date Cinthya Ray MD [address] [place] [address] PCP - General Family Medicine 10/23/11 Mayito Acuña PharmD [address] [place], [place] [phone] Pharmacist Internal Medicine 03/07/23 04/22/24 documented as of this encounter
--- OUTSIDE RECORDS SUMMARY | 2024-10-14 15:53 | XMS_ITS | Encounter Summary ---
Author Organization [employer] Address [address] [place] [address] 7 [place] [address] Care Team Providers Care Rice Field Worker Name Role Phone Cinthya Ray MD Primary Care Provider [phone] Mayito Acuña PharmD Unavailable [phone] Reason for Visit * Reason Onset Date Comments Appointment Request 09/02/2022 Encounter Details Date Type Department Care Team ([facility] st Contact Info) Description 09/02/2022 Telephone [facility] MED & PEDS [address] [place], [place] [phone] Cinthya Ray MD [address] [place], [place] [phone] Appointment Request Social History Tobacco Use Types [...] to message above * Telephone Encounter - Yangsocorro Henri Roman - 09/02/2022 9:23 AM EDT Tc from pt requesting an appt with provider as soon as possible to discuss her results and to discuss about her kidney failure.' Please contact pt at [phone] documented in this encounter Plan of Treatment Not on file documented as of this encounter Visit Diagnoses Not on filedocumented in this encounter Care Teams Rice Field Worker Relationship Specialty Start Date End Date Cinthya Ray MD [address] [place] [address] PCP - General Family Medicine 10/23/11 Mayito Acuña, Citlali [address] [place] [address] Pharmacist Internal Medicine 03/07/23 04/22/24 documented as of this encounter
--- OUTSIDE RECORDS SUMMARY | 2024-10-14 15:53 | XMS_ITS | Encounter Summary ---
Author Organization [employer] Address 75 [facility] 7 [place] [address] Care Team Providers Care Surface Lay Out Technician Name Role Phone Cinthya Ray MD Primary Care Provider [phone] Mayito Acuña PharmD Unavailable [phone] Encounter Details Date Type Department Care Team (Late st Contact Info) Description 06/30/2023 Orders Only [facility] MEDICINE [address] [place], [place] [phone] Mayito Acuña, PharmD [address] [place] [address] Type 2 diabetes mellitus with hyperglycemia, with long-term current use of insulin ([facility]) (Primary Dx) Social History Tobacco Use Types [...] hyperglycemia, with long-term current use of insulin ([facility]) documented in this encounter Results * Hematoxylin and Eosin Stain (06/30/2023 12:47 PM EDT) 06/30/2023 12:4 7 PM EDT 06/30/2023 1:27 PM EDT [facility]S - 07/02/2023 9:30 AM EDT ----- ------- Name: Sonali Gill Age/Sex: 33/F : [address] [facility]#: [id number] Unit#: [id number] Attend Dr: Jose Figueroa MD Re06/30/23 Status: [facility] Location: [facility] Disch: ----- ------- SPEC : [id number] RECD: 06/30/23-1327 STATUS: [facility] NUM: [id number] MELANIA: 06/30/23-12[address] [facility] [address]: Jose Figueroa MD ENTERED: 06/30/23-1333 SP TYPE: Surgical OTHR DR: Cinthya Ray MD ORDERED: HE Stain/6, Gross Micro L4/5, IHC, Special st. 2/3, H. pylori, AB/PAS/3 Diagnosis A. Duodenum, biopsy: Duodenal mucosa within normal limits. B Stomach, biopsy: Antral-type and oxyntic mucosa with mild chronic inactive inflammation; no Helicobacter organisms seen. C. GE junction, biopsy: - Sen esophagus with background mild chronic active inflammation. - No dysplasia seen. - Squamous mucosa within normal limits. D. Esophagus, distal, biopsy: Squamous epithelium within normal limits; no inflammation seen. E. Esophagus, proximal, biopsy: Squamous epithelium within normal limits; no inflammation seen. Clinical History Pre-Op Dx: Dysphagia Post-Op Dx: Esophagitis, dysmotility, gastropathy Microscopic Description A-E. Microscopic sections examined. Intestinal metaplasia is seen (C) and no metaplastic changes are seen (A and B), supported by AB/PAS stains; no Helicobacter organisms are seen, supported by H. pylori immunostain (B). Material Received A. Duodenum B. Stomach C. GE junction D. Distal esophagus E. Proximal esophagus Gross Description Received in five parts. Part A: Received in formalin labeled duodenum are 3 hathaway-pink irregular tissue fragments ranging from 0.1-0.3 cm, submitted in toto in a cassette labeled A. CONTINUED ON NEXT PAGE ----- ------- Name: Sonali Gill Age/Sex: : 1990 Unit#: [id number] Attend Dr: Jose Figueroa MD Re06/30/23 Status: [facility] Location: [facility] Disch: ----- ------- SPEC : [id number] RECD: 06/30/23 STATUS: [facility] NUM: [id number] MELANIA: 06/30/23-[address] [facility] [address]: Jose Figueroa MD ENTERED: 06/30/230662 SP TYPE: Surgical OTHR DR: Cinthya Rya MD ORDERED: HE Stain/6, Gross Micro L4/5, IHC, Special st. 2/3, H. pylori, AB/PAS/3 Gross Description (Continued) Part B: Received in formalin labeled stomach are 5 hathaway-pink irregular and rectangular tissue fragments ranging from 0.1 to 0.4 cm, submitted in toto in a cassette labeled B. Part C: Received in formalin labeled GE junction are 3 hathaway-pink irregular tissue fragments ranging from less than 0.1 to 0.2 cm, submitted in toto in a cassette labeled C. Part D: Received in formalin labeled distal esophagus are 4 hein-white irregular tissue fragments ranging from 0.1 to 0.2 cm, submitted in toto in a cassette labeled D. Part E: Received in formalin labeled proximal esophagus are 4 pale, hein-white irregular tissue fragments ranging from 0.1-0.2 cm, submitted in toto in a cassette labeled E. CEDS Special studies ordered and performed: Immunostain for H. pylori on B; AB/PAS stains on A-C Copies To: Jose Figueroa MD [address] [place] [address] [place] [address] Cinthya Ray MD [address] [place] [address] ----- ------- Signed (signature on file) Esa Aguiar MD 07/02/23 0930 ----- ------- END OF REPORT us Generic External Data Provider LAB BLOOD ORDERAB LES Final Result [facility] [address] [place] [address] [phone] documented in this encounter Visit Diagnoses Diagnosis Type 2 diabetes mellitus with hyperglycemia, with long-term current use of insulin ([facility])- Primary documented in this encounter Additional Health Concerns Assessment Noted Time PHQ-9 Depression Total Score: 0 06/10/19 24 2:55 PM EDT documented as of this encounter Care Teams Surface Lay Out Technician Relationship Specialty Start Date End Date Cinthya Ray MD [address] [place] [address] PCP - General Family Medicine 10/23/11 Mayito Acuña, Citlali [address] [place] [address] Pharmacist Internal Medicine 03/07/23 04/22/24 documented as of this encounter
--- OUTSIDE RECORDS SUMMARY | 2024-10-14 15:53 | XMS_ITS | Clinical Summary ---
Author Organization [facility] Address [address] [place] [address] Phone Care Team Providers Care Instructional Writer Name Role Phone Unavailable Primary Care Provider Unavailabl e Allergies No known active allergies Medical History Medical History Date Comments Diabetes mellitus ([facility] V24, [facility] V28) Social History Tobacco Use Types Packs/Day [...] 01/13/2022 Social Influencers of Health Screening 01/13/2022 Depression Screening 02/11/2024 Diabetes: Annual Urine Albumin-Creatinine Ratio (uACR) 02/29/2024 Diabetes: Blood Sugar Control Test (HGBA1C) 07/26/2024 01/26/2024 COVID-19 Vaccine ( season) 2024 02/22/2021, 07/01/2020, [...]
--- OUTSIDE RECORDS SUMMARY | 2024-10-14 15:53 | XMS_ITS | Encounter Summary ---
Author Organization [employer] Address 75 [facility] 7 [place] [address] Care Team Providers Care District Attorney Name Role Phone Cinthya Ray MD Primary Care Provider [phone] Mayito Acuña PharmD Unavailable [phone] Reason for Visit * Reason Onset Date Comments Med Refill 01/03/2023 Encounter Details Date Type Department Care Team (Late st Contact Info) Description 01/03/2023 Refill [facility] MEDICINE [address] [place], [place] [phone] Cinhtya Ray MD [address] [place], [place] [phone] Social History Tobacco Use Types Packs/Day Years [...] filedocumented in this encounter Care Teams District Attorney Relationship Specialty Start Date End Date Cinthya Ray MD [address] [place] [address] PCP - General Family Medicine 10/23/11 Mayito Acuña, Citlali [address] [place] [address] Pharmacist Internal Medicine 03/07/23 04/22/24 documented as of this encounter
--- OUTSIDE RECORDS SUMMARY | 2024-10-14 15:53 | XMS_ITS | Encounter Summary ---
Author Organization [employer] Address 75 [facility] 7 [place] [address] Care Team Providers Care Professor Of History Name Role Phone Cinthya Ray MD Primary Care Provider [phone] Mayito Acuña PharmD Unavailable [phone] Reason for Visit * Reason Onset Date Comments Results 12/09/2022 Encounter Details Date Type Department Care Team ([facility] st Contact Info) Description 12/09/2022 Telephone [facility] MEDICINE [address] [place], [place] [phone] Cinthya Ray MD [address] [place], [place] [phone] Results Social History Tobacco Use Types Packs/Day [...] to US results. Please contact pt at [phone] documented in this encounter Plan of Treatment Not on file documented as of this encounter Visit Diagnoses Not on filedocumented in this encounter Care Teams Professor Of History Relationship Specialty Start Date End Date Cinthya Ray MD [address] [place] [address] PCP - General Family Medicine 10/23/11 Mayito Acuña, Citlali [address] [place] [address] Pharmacist Internal Medicine 03/07/23 04/22/24 documented as of this encounter
--- OUTSIDE RECORDS SUMMARY | 2024-10-14 15:53 | XMS_ITS | Encounter Summary ---
Author Organization [employer] Address 75 [facility] 7 [place] [address] Care Team Providers Care Textile Bag Sewer Name Role Phone Cinthya Ray MD Primary Care Provider [phone] Mayito Acuña PharmD Unavailable [phone] Encounter Details Date Type Department Care Team (Late st Contact Info) Description 01/31/2024 Orders Only [facility] MED[facility]INE [address] [place], [place] [phone] Cinthya Ray MD [address] [place] [address] Vitamin D deficiency (Primary Dx) Social History [...] the past 12 months, has t he [employer], gas, oil or water company threatened to [...] documented as of this encounter Care Teams Textile Bag Sewer Relationship Specialty Start Date End Date Cinthya Ray MD [address] [place] [address] PCP - General Family Medicine 10/23/11 Mayito Acuña PharmD [address] [place] [address] Pharmacist Internal Medicine 03/07/23 04/22/24 documented as of this encounter
--- OUTSIDE RECORDS SUMMARY | 2024-10-14 15:53 | XMS_ITS | Encounter Summary ---
Author Organization [employer] Address 75 [facility] 7 [place] [address] Care Team Providers Care Sales Development Specialist Name Role Phone Cinthya Ray MD Primary Care Provider [phone] Mayito Acuña PharmD Unavailable [phone] Encounter Details Date Type Department Care Team (Late st Contact Info) Description 04/07/2024 Orders Only [facility] MEDICINE [address] [place], [place] [phone] Lexis Spann MD [address] [place] [address] Social History Tobacco Use Types Packs/Day Years [...] the past 12 months, has t he [employer], gas, oil or water company threatened to [...] as of this encounter Care Teams Sales Development Specialist Relationship Specialty Start Date End Date Cinthya Ray MD [address] [place] [address] PCP - General Family Medicine 10/23/11 Mayito Acuña PharmD [address] [place] [address] Pharmacist Internal Medicine 03/07/23 04/22/24 documented as of this encounter
--- OUTSIDE RECORDS SUMMARY | 2024-10-14 15:53 | XMS_ITS | Encounter Summary ---
Author Organization [employer] Address 75 [facility] 7 [place] [address] Care Team Providers Care Sandblast Carver Name Role Phone Cinthya Ray MD Primary Care Provider [phone] Mayito Acuña PharmD Unavailable [phone] Encounter Details Date Type Department Care Team (Late st Contact Info) Description 03/05/2023 Orders Only [facility] MEDICINE [address] [place], [place] [phone] Cinthya Ray MD [address] [place] [address] Social History Tobacco Use Types Packs/Day Years [...] on filedocumented in this encounter Care Teams Sandblast Carver Relationship Specialty Start Date End Date Cinthya Ray MD [address] [place] [address] PCP - General Family Medicine 10/23/11 Mayito Acuña PharmD [address] [place] [address] Pharmacist Internal Medicine 03/07/23 04/22/24 documented as of this encounter
--- OUTSIDE RECORDS SUMMARY | 2024-10-14 15:53 | XMS_ITS | Encounter Summary ---
Author Organization [employer] Address 75 [facility] 7 [place] [address] Care Team Providers Care Jewelry Setter Name Role Phone Cinthya Ray MD Primary Care Provider [phone] Mayito Acuña PharmD Unavailable [phone] Reason for Visit * Reason Onset Date Comments Med Refill 11/02/2023 Encounter Details Date Type Department Care Team (Late st Contact Info) Description 11/02/2023 Refill [facility] MED & PEDS [address] [place], [place] [phone] Cinthya Ray MD [address] [place], [place] [phone] Type 2 diabetes mellitus with hyperglycemia, without long-term current use of insulin ([facility]) Social History Tobacco Use Types Packs/Day Years [...] without long-term current use of insulin ([facility]) documented in this encounter Additional Health Concerns Assessment Noted Time PHQ-9 Depression Total Score: 11 024 9:48 AM EDT documented as of this encounter Care Teams Jewelry Setter Relationship Specialty Start Date End Date Cinthya Ray MD [address] [place] [address] PCP - General Family Medicine 10/23/11 Mayito Acuña PharmD [address] [place] [address] Pharmacist Internal Medicine 03/07/23 04/22/24 documented as of this encounter
--- OUTSIDE RECORDS SUMMARY | 2024-10-14 15:53 | XMS_ITS | Encounter Summary ---
Author Organization [employer] Address 75 [facility] 7 [place] [address] Care Team Providers Care Screwdown Operator Name Role Phone Cinthya Ray MD Primary Care Provider [phone] Encounter Details Date Type Department Care Team ([facility] Contact Info) Description 10/09/2024 Telephone [facility] [address] [place] [address] Estefany Chang MD [address] [place] [address] Social History Tobacco Use Types Packs/Day Years [...] encounter Miscellaneous Notes * Telephone Encounter - Estefany Chang MD - 10/09/2024 11:53 AM EDT Was called on Friday around 11 am by answering service to speak to [facility] pharmacist regarding toradol oral tabs prescribed by in [facility] for migraines.Refill authorized after I spoke with [facility]. documented in this encounter Plan of Treatment [...] documented as of this encounter Care Teams Screwdown Operator Relationship Specialty Start Date End Date Cinthya Ray MD [address] [place] [address] PCP - General Family Medicine 10/23/11 documented as of this encounter
--- OUTSIDE RECORDS SUMMARY | 2024-10-14 15:53 | XMS_ITS | Encounter Summary ---
Author Organization [employer] Address [address] [place] [address] [address] [address] Care Team Providers Care Tire Care Manager Name Role Phone Cinthya Ray MD Primary Care Provider [phone] Mayito Acuña PharmD Unavailable [phone] Reason for Visit * Reason Onset Date Comments triage 04/10/2022 Encounter Details Date Type Department Care Team (Late st Contact Info) Description 04/10/2022 Telephone [facility] MEDICINE [address] [place], [place] [phone] Cinthya Ray MD [address] [place], [place] [phone] triage Social History Tobacco Use Types Packs/Day [...] on filedocumented in this encounter Care Teams Tire Care Manager Relationship Specialty Start Date End Date Cinthya Ray MD [address] [place] [address] PCP - General Family Medicine 10/23/11 Mayito Acuña, PharmD [address] [place] [address] Pharmacist Internal Medicine 03/07/23 04/22/24 documented as of this encounter
--- OUTSIDE RECORDS SUMMARY | 2024-10-14 15:53 | XMS_ITS | Encounter Summary ---
Author Organization [employer] Address [address] [place] [address] [address] Care Team Providers Care Chiropractic Physician Name Role Phone Cinthya Ray MD Primary Care Provider [phone] Mayito Acuña PharmD Unavailable [phone] Reason for Visit * Reason Onset Date Comments Medication Question 06/14/2022 Encounter Details Date Type Department Care Team (Late st Contact Info) Description 06/14/2022 Telephone [facility] MEDICINE [address] [place], [place] [phone] Cinthya Ray MD [address] [place], [place] [phone] Medication Question Social History Tobacco Use Types [...] on filedocumented in this encounter Care Teams Chiropractic Physician Relationship Specialty Start Date End Date Cinthya Ray MD [address] [place] [address] PCP - General Family Medicine 10/23/11 Mayito Acuña, DyanD [address] [place] [address] Pharmacist Internal Medicine 03/07/23 04/22/24 documented as of this encounter
--- OUTSIDE RECORDS SUMMARY | 2024-10-14 15:53 | XMS_ITS | Encounter Summary ---
Author Organization [employer] Address 75 [facility] 7 [place] [address] Care Team Providers Care Crewman Main Battle Tank Name Role Phone Cinthya Ray MD Primary Care Provider [phone] Mayito Acuña PharmD Unavailable [phone] Encounter Details Date Type Department Care Team (Late st Contact Info) Description 09/15/2023 Orders Only [facility] MEDICINE [address] [place], [place] [phone] Cinthya Ray MD [address] [place] [address] Type 2 diabetes mellitus with hyperglycemia, without long-term current use of insulin ([facility]) Social History Tobacco Use [...] hyperglycemia, without long-term current use of insulin ([facility]) documented in this encounter Additional Health Concerns Assessment Noted Time PHQ-9 Depression Total Score: 0 09/10/19 24 9:01 AM EDT documented as of this encounter Care Teams Crewman Main Battle Tank Relationship Specialty Start Date End Date Cinthya Ray MD [address] [place] [address] PCP - General Family Medicine 10/23/11 Mayito Acuña PharmD [address] [place] [address] Pharmacist Internal Medicine 03/07/23 04/22/24 documented as of this encounter
--- OUTSIDE RECORDS SUMMARY | 2024-10-14 15:53 | XMS_ITS | Encounter Summary ---
Author Organization [employer] Address 75 [facility] 7 [place] [address] Care Team Providers Care Compounding Assistant Name Role Phone Cinthya Ray MD Primary Care Provider [phone] Mayito Acuña PharmD Unavailable [phone] Reason for Visit * Reason Onset Date Comments Med Refill 03/12/2024 Encounter Details Date Type Department Care Team (Late st Contact Info) Description 03/12/2024 Refill [facility] CH[facility] MED & PEDS [address] [place], [place] [phone] Cinthya Ray MD [address] [place], [place] [phone] Type 2 diabetes mellitus with hyperglycemia, without long-term current use of insulin ([facility]) Social History Tobacco Use Types Packs/Day Years [...] without long-term current use of insulin ([facility]) documented in this encounter Additional Health Concerns Assessment Noted Time PHQ-9 Depression Total Score: 11 024 9:48 AM EDT documented as of this encounter Care Teams Compounding Assistant Relationship Specialty Start Date End Date Cinthya Ray MD [address] [place] [address] PCP - General Family Medicine 10/23/11 Mayito Acuña PharmD [address] [place] [address] Pharmacist Internal Medicine 03/07/23 04/22/24 documented as of this encounter
--- OUTSIDE RECORDS SUMMARY | 2024-10-14 15:53 | XMS_ITS | Encounter Summary ---
Author Organization [employer] Address [address] [place] [address] [facility] [place] [address] Care Team Providers Care Visitor Services Specialist Name Role Phone Cinthya Ray MD Primary Care Provider [phone] Mayito Acuña PharmD Unavailable [phone] Reason for Referral * Consultation (Routine) - Closed Specialty Diagnoses / Procedures Referred By Ramya t Referred To Contact Pharmacy Diagnoses Type 2 diabetes mellitus with hyperglycemia, with long-term current use of insulin (CMS/HCC) Cinthya Ray MD [address] [place] [address] Phone: tel: fax: Referral ID Status Reason Start Date Expiration Date V isits Requested Visits Authorized [id number] Closed Consult and Treat 12/23/2023 12/22/2024 6 6 Encounter Details Date Type Department Care Team (Late st Contact Info) Description 12/23/2023 Orders Only [facility] MEDICINE [address] [place], [place] [phone] Cinthya Ray MD [address] [place], [place] [phone] Type 2 diabetes mellitus with hyperglycemia, with [...] long-term current use of insulin ([facility]) Ordered: 12/23/2023 documented as of this encounter Goals Goal Patient Goal Type Associated Problems Recent Progress Patient-Stated? Author Blood Pressure < 140/90 Blood Pressure 100/69(2024 9:23 AM EDT) No Mayito Acuña PharmD Hemoglobin A1c < 7 Result Component 6.5( 5 3:35 PM EDT) No Mayito Acuña PharmD documented as of this encounter Visit Diagnoses Diagnosis Type 2 diabetes mellitus with hyperglycemia, with long-term current use of insulin ([facility])- Primary documented in this encounter Additional Health Concerns Assessment Noted Time PHQ-9 Depression Total Score: 11 024 9:48 AM EDT documented as of this encounter Care Teams Visitor Services Specialist Relationship Specialty Start Date End Date Cinthya Ray MD [address] [place] [address] PCP - General Family Medicine 10/23/11 Mayito Acuña PharmD [address] [place] [address] Pharmacist Internal Medicine 03/07/23 04/22/24 documented as of this encounter
--- OUTSIDE RECORDS SUMMARY | 2024-10-14 15:53 | XMS_ITS | Encounter Summary ---
Author Organization [employer] Address 75 [facility] 7t [place] [address] Care Team Providers Care Complaints Coordinator Name Role Phone Cinthya Ray MD Primary Care Provider [phone] Mayito Acuña PharmD Unavailable [phone] Encounter Details Date Type Department Care Team (Late st Contact Info) Description 06/13/2022 Orders Only [facility] [address] [place] [address] Jerrica Girard FNP Social History Tobacco Use [...] on filedocumented in this encounter Care Teams Complaints Coordinator Relationship Specialty Start Date End Date Cinthya Ray MD [address] [place] [address] PCP - General Family Medicine 10/23/11 Mayito Acuña, DyanD [address] [place] [address] Pharmacist Internal Medicine 03/07/23 04/22/24 documented as of this encounter
--- OUTSIDE RECORDS SUMMARY | 2024-10-14 15:53 | XMS_ITS | Encounter Summary ---
Author Organization [employer] Address [address] [place] [address] 7 [place] [address] Care Team Providers Care Chute Boss Name Role Phone Cinthya Ray MD Primary Care Provider [phone] Mayito Acuña PharmD Unavailable [phone] Reason for Visit * Reason Onset Date Comments Med Refill 09/29/2023 Encounter Details Date Type Department Care Team (Late st Contact Info) Description 09/29/2023 Refill [facility] MEDICINE [address] [place], [place] [phone] Cinthya Ray MD [address] [place], [place] [phone] Type 2 diabetes mellitus with hyperglycemia, without long-term current use of insulin ([facility]) [...] without long-term current use of insulin ([facility]) documented in this encounter Additional Health Concerns Assessment Noted Time PHQ-9 Depression Total Score: 11 024 9:48 AM EDT documented as of this encounter Care Teams Chute Boss Relationship Specialty Start Date End Date Cinthya Ray MD [address] [place] [address] PCP - General Family Medicine 10/23/11 Mayito Acuña PharmD [address] [place] [address] Pharmacist Internal Medicine 03/07/23 04/22/24 documented as of this encounter
--- OUTSIDE RECORDS SUMMARY | 2024-10-14 15:53 | XMS_ITS | Encounter Summary ---
Author Organization [employer] Address [address] [place] [address] 7 [place] [address] Care Team Providers Care Greens Tier Name Role Phone Cinthya Ray MD Primary Care Provider [phone] Mayito Acuña PharmD Unavailable [phone] Reason for Visit * Reason Onset Date Comments Med Refill 08/06/2023 Encounter Details Date Type Department Care Team (Late st Contact Info) Description 08/06/2023 Refill [facility] MEDICINE [address] [place], [place] [phone] Cinthya Ray MD [address] [place], [place] [phone] Social History Tobacco Use Types Packs/Day Years [...] documented as of this encounter Care Teams Greens Tier Relationship Specialty Start Date End Date Cinthya Ray MD [address] [place] [address] PCP - General Family Medicine 10/23/11 Mayito Acuña PharmD [address] [place] [address] Pharmacist Internal Medicine 03/07/23 04/22/24 documented as of this encounter
--- OUTSIDE RECORDS SUMMARY | 2024-10-14 15:53 | XMS_ITS | Encounter Summary ---
Author Organization [employer] Address [address] [place] [address] 7 [place] [address] Care Team Providers Care Sales Inspector Name Role Phone Cinthya Ray MD Primary Care Provider [phone] Reason for Visit * Reason Comments Med Change Request Encounter Details Date Type Department Care Team ([facility] st Contact Info) Description 07/20/2024 Refill [facility] [address] [place], [place] [phone] Cinthya Ray MD [address] [place] [address] Type 2 diabetes mellitus with hyperglycemia, with long-term current use of insulin ([facility]) Social History Tobacco Use Types [...] hyperglycemia, with long-term current use of insulin ([facility]) documented in this encounter Additional Health Concerns Assessment Noted Time PHQ-9 Depression Total Score: 14 025 3:57 PM EDT documented as of this encounter Care Teams Sales Inspector Relationship Specialty Start Date End Date Cinthya Ray MD [address] [place] [address] PCP - General Family Medicine 10/23/11 documented as of this encounter
--- OUTSIDE RECORDS SUMMARY | 2024-10-14 15:53 | XMS_ITS | Encounter Summary ---
Author Organization [employer] Address [address] [facility] 7 [place] [address] Care Team Providers Care Survey Associate Name Role Phone Cinthya Ray MD Primary Care Provider [phone] Mayito Acuña PharmD Unavailable Reason for Visit * Reason Onset Date Comments Med Refill 12/24/2023 Encounter Details Date Type Department Care Team (Late st Contact Info) Description 12/24/2023 Refill [facility] [address] [place], [place] [phone] Cinthya Ray MD [address] [place], [place] [phone] Type 2 diabetes mellitus with hyperglycemia, without long-term current use of insulin ([facility]) Social History Tobacco Use [...] of insulin ([facility]) documented in this encounter Additional Health Concerns Assessment Noted Time PHQ-9 Depression Total Score: 11 024 9:48 AM EDT documented as of this encounter Care Teams Survey Associate Relationship Specialty Start Date End Date Cinthya Ray MD [address] [place] [address] PCP - General Family Medicine 10/23/11 Mayito Acuña PharmD [address] [place] [address] Pharmacist Internal Medicine 03/07/23 04/22/24 documented as of this encounter
== END 2024-10-14 15:02 | disposition home or self-care (01) ==
LOC: HO.HOS 14:39
PROVIDERS: PCP Family Medicine; Visit Provider Orthopaedic Surgery
DX: M25.512 Pain in left shoulder (principal)
CPT/HCPCS: 99213

== ENCOUNTER → 2024-10-14 14:38 | Outpatient (BNVA) | payer MEDICAID, SELFPAY | PROVIDERS: PCP Family Medicine; Visit Provider Orthopaedic Surgery | DX: M25.512 Pain in left shoulder (principal) | CPT/HCPCS: 99212 ==

== ENCOUNTER 2024-10-21 13:16 | Outpatient (AMB) | payer MEDICAID, SELFPAY ==
--- NOTE | 2024-10-21 13:19 | A.OFFVIS_ITS ---
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 Package Pick Up Required: No Accompanied by: Self / Same As Patient Allergies Seasonal Allergies Allergy (Mild, Verified 10/14/24 14:43) Runny Nose Medication List - Last Reconciled 10/21/24 by Josue Chaudhry MD blood sugar diagnostic (FreeStyle Lite Strips) Use daily As directed to check blood glucose blood-glucose meter (FreeStyle Lite Meter kit) Use daily As directed to check blood sugars blood-glucose sensor (FreeStyle Audrey 3 Plus Sensor device) Use daily As directed to monitor glucose blood-glucose,business leader,cont (FreeStyle Audrey 3 [place]on) Use daily As directed to monitor blood glucose insulin aspart U-100 (Novolog FlexPen U-100 Insulin aspart) 5 units (0.05 mL) subcut TID insulin degludec (Tresiba FlexTouch U-100 insulin) 60 units (0.6 mL) subcut DAILY lamotrigine mg PO lancets (FreeStyle Lancets) use BID as directed to check blood glucose metformin 1,000 mg (2 x 500 mg) PO BID pantoprazole 40 mg PO DAILY pen needle, diabetic As directed tid sumatriptan succinate 25 mg PO Q2-4H PRN tirzepatide (Mounjaro) 5 mg (0.5 mL) subcut QWEEK HPI Comments Details: Sonali has been referred for evaluation of low blood pressure. It seems that for the last year or so, she has been having low blood pressures. Sometimes she gets dizzy. On occasion, she has also fallen down. No previously diagnosed cardiac issues. She does not get any symptoms like exertional angina or shortness of breath. Otherwise, because of obesity she has been losing weight with Tirzepatide. Seems that the weight loss this correlated with low blood pre ssure. Previously, her blood pressure was in the normal range. [facility] Medical History Fatty liver GERD (gastroesophageal reflux disease) Anxiety Depression Insulin dependent type 2 diabetes mellitus Migraines BMI 32.0-32.9,adult Gallstones Body mass index (BMI) of 38.0 to 38.9 in adult Obesity Surgical History Hx of shoulder surgery History of esophagogastroduodenoscopy (EGD) History of cholecystectomy H/O tubal ligation History of surgery on wrist Hx of section Family History Father HTN (hypertension) Mother No problems noted. Sister Arthritis Knee problem Sister Arthritis Allergies Knee problem Brother No problems noted. Brother No problems noted. Son No problems noted. 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 Do you presently have visiting nurse or other home services: No Alcohol intake: never Comment: counts correct Patient Tobacco Use Status: Never used Tobacco Current occupation: rt handed Review of Systems Const Denies chills, Denies fatigue, Denies fever(s), Denies frequent falls, Denies weakness, Denies weight gain and Denies weight loss ENT Denies dizziness Card Denies chest pain, Denies leg edema, Denies lightheadedness, Denies palpitations, Reports dyspnea, Reports dyspnea on exertion and Reports orthopnea Resp Denies cough, Reports dyspnea and Reports dyspnea on exertion GI Denies bloating and Denies change in bowel habits Musc Denies muscle weakness, Denies numbness and Denies tingling Neuro Denies dizziness, Denies frequent falls, Denies numbness, Denies tingling and Denies weakness Endo Denies fatigue and Denies palpitations Physical Exam Vital Signs: Last Vital Signs Pulse 94 10/21/24 13:21 BP 92/68 10/21/24 13:21 BMI result Body Mass Index 35.6 Const General: comfortable and no acute distress Orientation/consciousness: patient oriented x3 HEENT Other: Unremarkable Head: Yes normal to inspection Neck Neck: Yes normal visual inspection Chest Chest palpation & inspection: normal inspection of the chest Resp Auscultation: clear to auscultation bilaterally Cardio Palpation: normal PMI Heart sounds: S1 normal heart sound present, S2 normal heart sound present, no gallops, no murmurs and no rubs GI Palpation (GI): Soft to palpation Back/Spine/Pelvis Other: unremarkable Skin General skin exam: no rashes or lesions noted Neuro General: patient oriented x3 Extrem General: Yes normal to inspection Psych Mental Status: mental status grossly normal Office Procedures EKG Details: EKG with underlying sinus rhythm at 94/Min; no ischemic changes; [place]. [id number], Complete Assessment & Plan Assessment & Plan (1) Hypotension: Code(s): I95.9 - Hypotension, unspecified Category: Medical Plan When her weight was over 200 lb, her blood pressure was within normal range. At the current weight, she is in the hypotensive category. We discussed this at length today. In her case, losing weight is going to be challenging as it will also probably cause hypotension. Hence if she still intends to lose a lot of weight and then do it very gradually. Otherwise, increased salt and fluid intake. Compression stockings may be of help. If still has a issues, then consider midodrine/Florinef. However, at her age would rather avoid medications as much possible. Autonomic insufficiency from diabetes also may play a role. We will get an echocardiogram for cardiac function assessment. We will follow her up in a few months' time for reassessment. In the interim, she will call with concerns. Orders: Orders CA echo transthoracic complete Today I95.9 - Hypotension, unspecified Coding Level of Care Code New Pt Level 4 (45863) Diagnoses Hypotension I95.9 CPT Codes EKG - CPT: 69664-[id number], Complete ([id number])
[2024-10-21 13:21] VITALS: BP 92/68; PULSE 94; BMI 35.6
--- OUTSIDE RECORDS SUMMARY | 2024-10-21 17:17 | XMS_ITS | Encounter Summary ---
Author Organization [employer] Address [address] [place] [address] Care Team Providers Care Vacuum Extractor Operator Name Role Phone Cinthya Ray MD Primary Care Provider [phone] Mayito Acuña PharmD Unavailable [phone] Encounter Details Date Type Department Care Team (Late st Contact Info) Description 02/26/2022 Abstract [facility] [address] [place], [place] [phone] Cinthya Ray MD [address] [place] [address] Social History Tobacco Use Types Packs/Day Years [...] on filedocumented in this encounter Care Teams Vacuum Extractor Operator Relationship Specialty Start Date End Date Cinthya aRy MD [address] [place], [place] [phone] PCP - General Family Medicine 10/23/11 Mayito Acuña, DyanD [address] [place] [address] Pharmacist Internal Medicine 03/07/23 04/22/24 documented as of this encounter
--- OUTSIDE RECORDS SUMMARY | 2024-10-21 17:17 | XMS_ITS | Encounter Summary ---
Author Organization [employer] Address [address] [place] [address] [address] Care Team Providers Care Pick Pulling Machine Tender Name Role Phone Cinthya Ray MD Primary Care Provider [phone] Mayito Acuña PharmD Unavailable [phone] Reason for Visit * Reason Onset Date Comments triage 04/10/2022 Encounter Details Date Type Department Care Team (Late st Contact Info) Description 04/10/2022 Telephone [facility] [address] [place], [place] [phone] Cinthya Ray MD [address] [place], [place] [phone] triage Social History Tobacco Use Types Packs/Day [...] on filedocumented in this encounter Care Teams Pick Pulling Machine Tender Relationship Specialty Start Date End Date Cinthya Ray MD [address] [place] [id number] PCP - General Family Medicine 10/23/11 Mayito Acuña, PharmD [address] [place] [address] Pharmacist Internal Medicine 03/07/23 04/22/24 documented as of this encounter
--- OUTSIDE RECORDS SUMMARY | 2024-10-21 17:17 | XMS_ITS | Encounter Summary ---
Author Organization [employer] Address [address] [place] [address], [place] [address] Care Team Providers Care Data Entry Machine Operator Name Role Phone Cinthya Ray MD Primary Care Provider [phone] Mayito Acuña PharmD Unavailable [phone] Reason for Referral * Consultation (Routine) - Closed Specialty Diagnoses / Procedures Referred By Ramya waller Referred To Contact Orthopaedic Surgery Diagnoses Chronic left shoulder pain Cinthya Ray MD [address] [place] [phone] Phone: tel: fax: [facility] Orthopedics [address] [place] [address] Phone: tel: Referral ID Status Reason Start Date Expiration Date V isits Requested Visits Authorized [id number] Closed Specialty Services Required 02/05/2024 02/04/2025 6 6 Encounter Details Date Type Department Care Team (Late st Contact Info) Description 02/05/2024 Orders Only [facility] [address] [place] [phone] Cinthya Ray MD [address] [place] [phone] Chronic left shoulder pain (Primary Dx) Social [...] as of this encounter Care Teams Data Entry Machine Operator Relationship Specialty Start Date End Date Cinthya Ray MD [address] [place] [address] PCP - General Family Medicine 10/23/11 Mayito Acuña, DyanD [address] [place] [phone] Pharmacist Internal Medicine 03/07/23 04/22/24 documented as of this encounter
--- OUTSIDE RECORDS SUMMARY | 2024-10-21 17:17 | XMS_ITS | Clinical Summary ---
Author Organization [employer] Address [address] [place] [address] 7 [place] [address] Care Team Providers Care Records And Information Manager Name Role Phone Cinthya Ray MD Primary Care Provider [phone] Allergies No known active allergies Medications * This document contains information received from the source organization and may not represent a complete record from that organization. TRUEplus Lancets 33G miscIndications: Type 2 diabetes mellitus with hyperglycemia ([facility]) TEST BLOOD SUGAR FOUR TIMES [...] hyperglycemia, with long-term current use of insulin ([facility]) Chew 2 g Once per [...] 90 tablet 3 024 Active Continuous Glucose Dentist/Owner (FreeStyle Audrey 3 [place]) deviceIndication s:Type 2 diabetes mellitus with hyperglycemia, [...] long-term current use of insulin ([facility]) INJECT 35 UNITS SUBCUTANEOUSLY ONCE EVERY DAY, [...] TABLET BY MOUTH EVERY DAY 90 tablet Active Baqsimi Two Pack 3 MG/DOSE nasal [...] EVERY WEEK FOR 28 DAYS 025 Active diphenhydrAMINE (BENADryl) 25 MG tabletIndication s:Chronic [...] ZOFRAN FOR MIGRAINE PROPHYLAXIS 15 tablet Active ondansetron (Zofran) 4 MG tablet Take [...] migraine prophylaxis 15 tablet 025 2024 Discontinued ondansetron (Zofran) 4 MG tabletIndication s:Chronic migraine without aura with status migrainosus, not intractable Take 1 tablet (4 mg) by mouth every 8 (eight) hours if needed for nausea or vomiting for up to 7 days. Take with Ketorolac 10mg and Benadryl 50mg for migraine cocktail 20 tablet 025 2024 Active Problems Problem Noted [...] (05/04/2024 4:55 AM EDT): - following with [facility] Orthopedics - Dx impingement syndrome - completed [...] both her parents. She had services with [facility] for psychiatry and individual therapy, but lost [...] Plan (11/30/2023 1:26 PM EDT): -Following with [facility] GI, last seen on -06/30/23 EGD Sen esophagus with mild chronic active inflammation, stomach mild chronic inactive inflammation, normal duodenum. -Repeat EGD in 2 years -Continue pantoprazole Assessment & Plan (09/09/2023 6:00 AM EDT): -Following with [facility] GI, last seen on -06/30/23 EGD Sen [...] considering a bariatric surgery and went to [facility] wt management clinic. She restarted going to [facility] Wt management clinic. - She had worked with our diabetes education nurse, Ene Arias from Nov to Dec 2021. - Graduated from [employer]. - Eye exam: 01/28/24. [facility]. Nonregenerative diabetic retinopathy, bilateral, mild. - [...] considering a bariatric surgery and went to [facility] management clinic. She restarted going to [facility] management clinic. - She had worked with our diabetes education nurse, Ene Arias from Nov to Dec 2021. - Currently showing good attendance to [facility]; appreciated her effort - Eye exam: 01/24/23 [facility]. No diabetic retinopathy - Comprehensive [...] considering a bariatric surgery and went to [facility] management clinic - She had worked with our diabetes education nurse, Ene Arias from Nov to Dec 2021. - Currently showing good attendance to [facility]; appreciated her effort - Eye exam: 01/24/23 [facility]. No diabetic retinopathy - Comprehensive [...] considering a bariatric surgery and went to [facility] wt management clinic - She had worked with our diabetes education nurse, Ene Arias from Nov to Dec 2021. - Currently showing good attendance to [facility]; appreciated her effort - Eye exam: 01/24/23 [facility]. No diabetic retinopathy - Comprehensive [...] considering a bariatric surgery and went to [facility] management clinic - She had worked with our diabetes education nurse, Ene Arias from Nov to Dec 2021. - Currently showing good attendance to [facility]; appreciated her effort - Eye exam: 01/24/23 [facility]. No diabetic retinopathy - Comprehensive [...] considering a bariatric surgery and went to [facility] wt management clinic - She had worked with our diabetes education nurse, Ene Arias from Nov to Dec 2021. - Currently showing good attendance to [facility]; appreciated her effort - Eye exam: 01/24/23 [facility]. No diabetic retinopathy - Comprehensive [...] considering a bariatric surgery and went to [facility] wt management clinic - She had worked with our diabetes education nurse, Ene Arias from Nov to Dec 2021. - Refer to [facility] - Eye exam: 01/24/23 [facility]. No diabetic retinopathy - Comprehensive [...] considering a bariatric surgery and went to [facility] wt management clinic - She had worked with our diabetes education nurse, Ene Arias from Nov to Dec 2021. - Eye exam: 01/21/22 [facility]. No diabetic retinopathy - Comprehensive [...] considering a bariatric surgery and went to [facility] wt management clinic - She had worked with our diabetes education nurse, Ene Arias from Nov to Dec 2021. - Eye exam: 01/21/22 [facility]. No diabetic retinopathy - Comprehensive [...] considering a bariatric surgery and went to [facility] wt management clinic - She had worked with our diabetes education nurse, Ene Arias from Nov to Dec 2021. - Eye exam: 01/21/22 [facility]. No diabetic retinopathy - Comprehensive [...] considering a bariatric surgery and went to [facility] wt management clinic - She had worked with our diabetes education nurse, Ene Arias from Nov to Dec 2021. - Eye exam: 01/21/22 [facility]. No diabetic retinopathy - Comprehensive [...] considering a bariatric surgery and went to [facility] wt management clinic - She had worked with our diabetes education nurse, Ene Arias from Nov to Dec 2021. - Eye exam: 01/21/22 [facility]. No diabetic retinopathy - Comprehensive [...] considering a bariatric surgery and went to [facility] wt management clinic - She had worked with our diabetes education nurse, Ene Arias from Nov to Dec 2021. - Eye exam: 01/21/22 [facility]. No diabetic retinopathy - Comprehensive [...] 2021. - completed Partial Hospitalization Program at [facility] 11/09/21 - 11/23/21 - current medication: none -Previous medication treatment Hx: venlafaxine was self-discontinued; trazodone was prescribed by psychiatrist while she was attending [facility], but pt self-discontinued due to ineffectivenss; sertraline 50 mg daily, patient self-discontinued. - previously seeing [facility] clinician and waiting for psychiatrist, patient has not been engaged in behavioral health therapy currently. - contacted by [facility] behavioral health service and was referred to off-site service - patient has developed healthy coping skills Assessment & Plan (11/30/2023 1:22 PM EDT): - MDD vs. bipolar - severe exacerbation of Depression w/ SI in October 2021. - completed Partial Hospitalization Program at [facility] 11/09/21 - 11/23/21 - current medication: none -Previous medication treatment Hx: venlafaxine was self-discontinued; trazodone was prescribed by psychiatrist while she was attending [facility], but pt self-discontinued due to ineffectivenss; sertraline 50 mg daily, patient self-discontinued. - previously seeing [facility] clinician and waiting for psychiatrist, patient has not been engaged in behavioral health therapy currently. - contacted by [facility] behavioral health service and was referred to off-site service - patient has developed healthy coping skills Assessment & Plan (03/07/2023 5:55 AM EST): - MDD vs. bipolar - severe exacerbation of Depression w/ SI in October 2021. - completed Partial Hospitalization Program at [facility] 11/09/21 - 11/23/21 - current medication: none -Previous medication treatment Hx: venlafaxine was self-discontinued; trazodone was prescribed by psychiatrist while she was attending [facility], but pt self-discontinued due to ineffectivenss; sertraline 50 mg daily, patient self-discontinued. - previously seeing [facility] clinician and waiting for psychiatrist, patient has not been engaged in behavioral health therapy currently. - will consider referring back Assessment & Plan (11/12/2022 4:17 PM EDT): - severe exacerbation of Depression w/ SI in October 2021. - completed Partial Hospitalization Program at [facility] 11/09/21 - 11/23/21 - Medication: Sertraline 50 mg daily -Previous medication treatment Hx: venlafaxine was self-discontinued; trazodone was prescribed by psychiatrist while she was attending [facility], but pt self-discontinued due to ineffectivenss - still on waiting list for outpatient appt with psychiatrist and therapist. - Able to contract her safety today - Continue BHS with [facility] Assessment & Plan (08/30/2022 12:43 PM EDT): - severe exacerbation of Depression w/ SI in October 2021. - completed Partial Hospitalization Program at [facility] 11/09/21 - 11/23/21 - Medication: Sertraline 50 mg daily -Previous medication treatment Hx: venlafaxine was self-discontinued; trazodone was prescribed by psychiatrist while she was attending [facility], but pt self-discontinued due to ineffectivenss - still on waiting list for outpatient appt with psychiatrist and therapist. - Able to contract her safety today - Continue BHS with [facility] Assessment & Plan (06/24/2022 11:25 AM EDT): - severe exacerbation of Depression w/ SI in October 2021. - completed Partial Hospitalization Program at [facility] 11/09/21 - 11/23/21 - Medication treatment [...] 2021. - completed Partial Hospitalization Program at [facility] 11/09/21 - 11/23/21 - Medication treatment [...] 2021. - completed Partial Hospitalization Program at [facility] 11/09/21 - 11/23/21 - Medication treatment [...] 2021. - completed Partial Hospitalization Program at [facility] 11/09/21 - 11/23/21 - Medication treatment [...] - previously participated weight management program at [facility], recently started seeing them again. - goal of wieght being 171 lbs to get surgery done. - continue working on lifestyle modifications - associated comorbidity: STELLA, diabetes mellitus type 2 - continue GLP1RA - patient is restricting food intake and discussed about its harmful effect. She is on GLP1RA and is having side effects. Will try to consult with both strategic account executive and surgical weight loss provider. Surgical weight loss is not indicated and patient still may need to take medications. Assessment & Plan (01/27/2024 3:27 PM EST): - previously participated weight management program at [facility], recently started seeing them again. - goal of wieght being 171 lbs to get surgery done. - continue working on lifestyle modifications - associated comorbidity: STELLA, DM2 Assessment & Plan (11/26/2023 2:16 PM EDT): - previously participated weight management program at [facility] working on lifestyle modifications - associated comorbidity: STELLA, DM2 Assessment & Plan (11/18/2022 7:07 AM EDT): - previously participated weight management program at [facility] working on lifestyle modifications - associated comorbidity: STELLA, DM2 Assessment & Plan (04/04/2022 7:14 PM EST): - previously participated weight management program at [facility] working on lifestyle modifications - associated comorbidity: STELLA, DM2 Assessment & Plan (02/22/2022 4:37 PM EST): - previously participated weight management program at [facility] working on lifestyle modifications - associated [...] Description 10/09/2024 9:20 AM EDT Office Visit [facility] [address] [place] [phone] Megan Ortez MD Chronic migraine without aura with status migrainosus, not intractable (Primary Dx); Severe episode of recurrent major depressive disorder, without psychotic features (CMS/HCC); Mild intermittent asthma without complication 10/09/2024 Telephone [facility] [address] [place], [place] [phone] Estefany Chang MD 10/09/2024 Refill [facility] [address] [place] [address] Megan Ortez MD Chronic migraine without aura with status migrainosus, not intractable 10/09/2024 Travel 10/09/2024 Refill [facility] [address] [place] [address] Cinthya Ray MD 10/08/2024 Telephone [facility] [address] [place] [address] Cinthya Ray MD 10/07/2024 Telephone [facility] [address] [place] [address] Hilda Diaz RN NTTS Triage 10/01/2024 8:00 AM EDT Office Visit [facility] [address] [place] [address] Demario Bocanegra Dental calculus (Primary Dx) 09/30/2024 Travel 09/27/2024 Orders Only GENERIC EXTERNAL DATA DEPARTMENT Provider, Generic External Data 09/23/2024 9:20 AM EDT Office Visit [facility] [address] [place] [address] Sonali Tellez MD Vaginal itching (Primary Dx); Candidiasis 09/23/2024 Travel 09/23/[address] [address] Cinthya Ray MD Nurse Triage 09/15/[address] [address] Cinthya Ray MD 08/24/[address] [address] Cinthya Ray MD Nurse Triage 08/23/2024 Orders Only GENERIC EXTERNAL DATA DEPARTMENT Provider, Generic External Data 08/12/[address] [address] Rianna Solis RNnew car make ready mechanic 07/23/2024 Travel 07/22/2024 Results Follow-Up [address] [address] Ysabel Dejesus NP POCT Urinalysis, Chlamydia/N. Gonorrhoeae RNA, TMA, Urogenitial, Bacterial Vaginosis Panel, POCT Glucose 07/21/2024 2:30 PM EDT Office Visit [address] [address] Ysabel Dejesus NP Vaginal itching (Primary Dx); Type 2 diabetes mellitus with hypoglycemia without coma, with long-term current use of insulin ([facility]) 07/21/2024 Travel 07/21/[address] [address] Cinthya Ray MD Nurse Triage from Last 3 Months Immunizations Immunization Administration [...] hyperglycemia, with long-term current use of insulin ([facility]) DIABETES EYE EXAM Routine 01/24/2023 INTRAORAL - [...] Whole Blood 273(H) 60 - 115 mg/dL [facility] Comment:METER #: [id number] 0Testing performed in the Endocrinology Department [address] , [address], [facility]. 09/27/2024 2:18 PM EDT 09/27/2024 2:21 PM EDT us Generic External Data Provider LAB BLOOD ORDERAB LES Final Result [facility] [address] [place] [phone] * POCT urinalysis dipstick manually resulted [...] None Detected Urine 09/23/2024 9:30 AM EDT us Sonali Tellez MD POINT OF CARE TEST ENTER/E DIT ORDERABLES Final Result * (ABNORMAL) POCT Glucose (07/21/2024 3:07 PM EDT) Glucose Blood, POC 253(A) 60 - 200 mg/dL QC Media Lot # [id number] Lot# Expiration Date Blood Capillary blood specimen / Unknown 07/21/2024 3:07 PM EDT us Ysabel Dejesus NP POINT OF CARE TEST ENTER/EDIT O RDERABLES Final Result * (ABNORMAL) Bacterial Vaginosis Panel (07/21/2024 12:00 AM EDT) Pathologist [facility] TRICHOMONAS VAGINALIS DETECTION BY PCR NOT DETECTED Not Detect [facility] BACTERIAL VAGINOSIS DETECTION BY PCR NEGATIVE Negative [facility] Comment:The BV organism targ [...] GROUP DETECTION BY PCR DETECTED(A) Not Detect [facility] Deyanira glab krusei PCR NOT DETECTED Not Detect [facility] Swab Vaginal structure / Unknown 07/21/2024 07/21/2024 us Ysabel Dejesus NP LAB MICROBIOLOGY - GENERAL ORDE RABLES Final Result [facility] [address] [place] [phone] * Chlamydia/N. Gonorrhoeae RNA, TMA, Urogenitial (07/21/2024 12:00 AM EDT) CT PCR NOT DETECTED Not Detect. [facility] Comment:A not detected test [...] psychologicalconsequences. NG PCR NOT DETECTED Not Detect. [facility] Comment:A not detected test [...] Vaginal structure / Unknown 07/21/2024 07/21/2024 Narrative [facility] - 07/22/2024 2:19 PM EDT Vaginal us Ysabel Dejesus NP LAB MICROBIOLOGY - GENERAL CHERYL VARGAS Final Result [facility] [address] [place] [address] [phone] * (ABNORMAL) POCT glycosylated hemoglobin (Hgb A1c) (05/03/2024 3:35 PM EDT) Hemoglobin A1C 6.5(A) 4.0 - 6.0 % QC Media Lot # [id number] Lot# Expiration Date [id number] Blood Capillary blood specimen / Unknown 05/03/2024 3:35 PM EDT us Cinthya Ray MD POINT OF CARE TEST ENTER/EDIT OR DERABLES Final Result * (ABNORMAL) Lipid Panel with Reflex to Direct LDL (11/26/2023 11:30 AM EDT) Triglycerides 145 <150 mg/dL [facility] Comment:Desirable Triglyceri de: less than 150 mg/dLBorderline High Triglyceride 150-199 mg/dLHigh Triglyceride: 200-499 mg/dLVery High Triglyceride: greater than or equal to 5OO mg/dL Cholesterol 152 <200 mg/dL [facility] Comment:Desirable Cholestero l: less than 200 mg/dLBorderline High Cholesterol: 200-239 mg/dLHigh Cholesterol: greater than 239 mg/dL LDL Cholesterol Calculated 91 <100 mg/dL [facility] Comment:Desirable LDL: less than 100 mg/dLNear Optimal/Above Optimal LDL: 110- 129 mg/dLBorderline High LDL: 130-159 mg/dLHigh LDL: 160-189 mg/dLVery High LDL: greater than or equal to 190 mg/dL HDL Cholesterol 32(L) >40 mg/dL [facility] Comment:Desirable HDL: great er than 40 mg/dL Note: This HDL assay may give artificially low results in patients with liver disease. Blood 11/26/2023 11:3 0 AM EDT 11/26/2023 1:20 PM EDT us Cinthya Ray MD LAB BLOOD ORDERABLES Final Resul t [facility] [address] [place], [place] [phone] * Hepatitis C Antibody with Reflex to HCV, RNA, Quantitative, Real-Time PCR (11/26/2023 11:30 AM EDT) Hepatitis C Antibody Nonreactive Nonreactive [facility] Comment:Antibodies to HCV no t detected; does not exclude early acuteHCV infection. Blood Venous blood specimen / Unknown 11/26/2023 11:30 AM EDT 11/26/2023 1:20 PM EDT us Cinthya Ray MD LAB BLOOD ORDERABLES Final Resul t [facility] [address] [place] [address] [phone] * HIV-1/2 Antigen and Antibodies, Fourth Generation, with Reflexes (11/26/2023 11:30 AM EDT) HIV AB/AG Nonreactive Nonreactive [facility] Comment:HIV-1 p24 Ag and/or HIV-1/HIV-2 Ab not detected.A test result that is nonreactive does not exclude thepossibility of exposure to or infection with HIV-1 and/orHIV-2. Nonreactive results in this assay for individualswith prior exposure to HIV-1 and/or HIV-2 may be due toantigen and antibody levels that are below the limit ofdetection of this assay.The [employer] HIV Ag/Ab Combo assay result andsupplemental assay results should be interpreted inconjunction with the patient's clinical presentation,history and other laboratory results. If the results areinconsistent with clinical evidence, additional testing issuggested to confirm the result. Blood Venous blood specimen / Unknown 11/26/2023 11:30 AM EDT 11/26/2023 1:20 PM EDT us Cinthya Ray MD LAB BLOOD ORDERABLES Final Resul t [facility] [address] [place] [address] [phone] * Albumin, Random Urine W/Creatinine (11/26/2023 12:00 AM EDT) Creatinine, Urine 238.24 mg/dL [facility] Microalbumin Urine 23.0 mg/L [facility] Microalbum Creatinine Ratio Ur 9.6 <30 ug/mg cr [facility] Comment:Albumin/Creatinine R atio Reference Ranges: Normal: < 30 ug/mg creatinine Microalbuminuria: 30 - 300 ug/mg creatinineClinical Albuminuria: > 300 ug/mg creatinine Urine 11/26/2023 11/26/2023 Cinthya Ray MD LAB URINE ORDERABLES Final Resul t [facility] [address] [place] [phone] * Hm Diabetes Eye Exam (01/24/2023) Eye Exam Normal Normal Comment:[facility] 01/24/2023 Historical Provider HEALTH MAINTENANCE Final [...] assisted technology. [facility] Geospatial Specialist : SEE COMMENT [facility] Comment: MXD, CT (ASCP) CT screening location: [address] [address] Interpretation/R esult: Negative for intraepithelial lesion or malignancy. Admittor [facility] LMP: NONE GIVEN FOUNDATIO N [...] [facility] [address] from Last 3 Months or Most Recently Relevant to Health Maintenance Insurance [address] [place] [address] C3 DENTAL-[facility] MEDICAID STAND ADULT Care Teams Records And Information Manager Relationship Specialty Start Date End Date Cinthya Ray MD [address] [place] [phone] PCP - General Family Medicine 10/23/11
--- OUTSIDE RECORDS SUMMARY | 2024-10-21 17:17 | XMS_ITS | Encounter Summary ---
Author Organization [employer] Address [address] [facility] [address] [place] [address] Care Team Providers Care Accounting Recruiter Name Role Phone Cinthya Ray MD Primary Care Provider [phone] Mayito Acuña PharmD Unavailable Encounter Details Date Type Department Care Team (Late st Contact Info) Description 01/31/2024 Orders Only [facility] [address] [place], [place] [phone] Cinthya Ray MD [address] [place] [address] Vitamin D deficiency (Primary Dx) Social History [...] the past 12 months, has t he [employer], gas, oil or water company threatened to [...] documented as of this encounter Care Teams Accounting Recruiter Relationship Specialty Start Date End Date Cinthya Ray MD [address] [place] [address] PCP - General Family Medicine 10/23/11 Mayito Acuña PharmD [address] [place] [address] Pharmacist Internal Medicine 03/07/23 04/22/24 documented as of this encounter
--- OUTSIDE RECORDS SUMMARY | 2024-10-21 17:17 | XMS_ITS | Encounter Summary ---
Author Organization [employer] Address [address] [facility] [address] [place] [address] Care Team Providers Care Rock Drill Operator Name Role Phone Cinthya Rya MD Primary Care Provider [phone] Mayito Acuña PharmD Unavailable [phone] Encounter Details Date Type Department Care Team (Late st Contact Info) Description 03/05/2023 Orders Only [facility] [address] [place], [place] [phone] Cinthya Ray MD [address] [place] [address] Social History Tobacco Use Types Packs/Day Years [...] on filedocumented in this encounter Care Teams Rock Drill Operator Relationship Specialty Start Date End Date Cinthya Ray MD [address] [place] [address] PCP - General Family Medicine 10/23/11 Mayito Acuña PharmD [address] [place] [address] Pharmacist Internal Medicine 03/07/23 04/22/24 documented as of this encounter
--- OUTSIDE RECORDS SUMMARY | 2024-10-21 17:17 | XMS_ITS | Encounter Summary ---
Author Organization [employer] Address [address] [place] [address] 7 [place] [address] Care Team Providers Care Multiple Drum Sander Helper Name Role Phone Cinthya Ray MD Primary Care Provider [phone] Mayito Acuña PharmD Unavailable [phone] Reason for Visit * Reason Onset Date Comments callback request 12/30/2023 Encounter Details Date Type Department Care Team (Late st Contact Info) Description 12/30/2023 Telephone [facility] [address] [place], [place] [phone] Cinthya Ray MD 230 [place], [place] [phone] callback request Social History Tobacco Use Types [...] Tc from pt returning call from [facility] to book an appointment for follow up Callback [phone] documented in this encounter Plan of Treatment [...] documented as of this encounter Care Teams Multiple Drum Sander Helper Relationship Specialty Start Date End Date Cinthya Ray MD 230 [place] [address] PCP - General Family Medicine 10/23/11 Mayito Acuña, DyanD [address] [place] [address] Pharmacist Internal Medicine 03/07/23 04/22/24 documented as of this encounter
--- OUTSIDE RECORDS SUMMARY | 2024-10-21 17:17 | XMS_ITS | Encounter Summary ---
Author Organization [employer] Address 75 [facility] 7 [place] [address] Care Team Providers Care Forensic Computer Examiner Name Role Phone Cinthya Ray MD Primary Care Provider [phone] Mayito Acuña PharmD Unavailable [phone] Encounter Details Date Type Department Care Team (Late st Contact Info) Description 03/05/2024 Orders Only [facility] MED[facility]INE 230 [place], [place] [phone] Cinthya Ray MD 230 [place], [place] [phone] Type 2 diabetes mellitus with other specified complication, with long-term current use of insulin ([facility]) (Primary Dx) Social History Tobacco [...] complication, with long-term current use of insulin ([facility])- Primary documented in this encounter Additional Health Concerns Assessment Noted Time PHQ-9 Depression Total Score: 11 024 9:48 AM EDT documented as of this encounter Care Teams Forensic Computer Examiner Relationship Specialty Start Date End Date Cinthya Ray MD 230 [place] [address] PCP - General Family Medicine 10/23/11 Mayito Acuña PharmD 230 [place] [address] Pharmacist Internal Medicine 03/07/23 04/22/24 documented as of this encounter
--- OUTSIDE RECORDS SUMMARY | 2024-10-21 17:18 | XMS_ITS | Encounter Summary ---
Author Organization [employer] Address [address] [place] [address] 7 [place] [address] Care Team Providers Care Rug Inspector Name Role Phone Cinthya Ray MD Primary Care Provider [phone] Reason for Visit * Reason Comments Med Change Request Encounter Details Date Type Department Care Team ([facility] st Contact Info) Description 07/20/2024 Refill [facility] MED[facility]INE 230 [place], [place] [phone] Cinthya Ray MD 230 [place] [address] Type 2 diabetes mellitus with hyperglycemia, with long-term current use of insulin ([facility]) Social History Tobacco Use Types [...] your housing situation today? I have trev villabla 06/10/[address] you li [...] with long-term current use of insulin ([facility]) documented in this encounter Additional Health Concerns Assessment Noted Time PHQ-9 Depression Total Score: 14 025 3:57 PM EDT documented as of this encounter Care Teams Rug Inspector Relationship Specialty Start Date End Date Cinthya Ray MD 230 [place] [address] PCP - General Family Medicine 10/23/11 documented as of this encounter
--- OUTSIDE RECORDS SUMMARY | 2024-10-21 17:18 | XMS_ITS | Encounter Summary ---
Author Organization [employer] Address [address] [place] [address] Care Team Providers Care Mathematics Academic Chair Name Role Phone Cinthya Ray MD Primary Care Provider [phone] Reason for Referral * Consultation (Routine) - Authorized Specialty Diagnoses / Procedures Referred By Contac t Referred To Contact Cardiology Diagnoses Hypotension, unspecified hypotension type Cinthya Ray MD 230 [place] [address] Phone: tel: fax: [facility] Referral ID Status Reason Start Date Expiration Date Visits Requested Visits Authorized [id number] Authorized Specialty Services Required 07/09/2024 07/09/2025 6 6 Encounter Details Date Type Department Care Team (Late st Contact Info) Description 07/09/2024 Orders Only [facility] MEDICINE 230 [place], [place] [phone] Cinthya Ray MD 230 [place], [place] [phone] Hypotension, unspecified hypotension type (Primary Dx) Social [...] documented as of this encounter Care Teams Mathematics Academic Chair Relationship Specialty Start Date End Date Cinthya Ray MD 230 [place] [address] PCP - General Family Medicine 10/23/11 documented as of this encounter
--- OUTSIDE RECORDS SUMMARY | 2024-10-21 17:18 | XMS_ITS | Encounter Summary ---
Author Organization [employer] Address [address] [place] [address] 7 [place] [address] Care Team Providers Care General Contractor Name Role Phone Cinthya Ray MD Primary Care Provider Mayito Acuña PharmD Unavailable [phone] Reason for Visit * Reason Onset Date Comments Med Refill 08/06/2023 Encounter Details Date Type Department Care Team (Late st Contact Info) Description 08/06/2023 Refill [facility] 230 [place], [place] [phone] Cinthya Ray MD [address] [place], [place] [phone] Social History Tobacco Use Types Packs/Day Years [...] documented as of this encounter Care Teams General Contractor Relationship Specialty Start Date End Date Cinthya Ray MD [address] [place] [address] PCP - General Family Medicine 10/23/11 Mayito Acñua PharmD 230 [place] [address] Pharmacist Internal Medicine 03/07/23 04/22/24 documented as of this encounter
--- OUTSIDE RECORDS SUMMARY | 2024-10-21 17:18 | XMS_ITS | Encounter Summary ---
Author Organization [employer] Address 75 [facility] 7 [place] [address] Care Team Providers Care Construction Grip Name Role Phone Cinthya Ray MD Primary Care Provider [phone] Reason for Visit * Reason Onset Date Comments Med Refill 06/18/2024 Encounter Details Date Type Department Care Team (Late st Contact Info) Description 06/18/2024 Refill [facility] MED & PEDS [address] [place] [address] Cinthya Ray MD 230 [place] [address] Injury of head, initial encounter Social History [...] documented as of this encounter Care Teams Construction Grip Relationship Specialty Start Date End Date Cinthya Ray MD [address] [place] [address] PCP - General Family Medicine 10/23/11 documented as of this encounter
--- OUTSIDE RECORDS SUMMARY | 2024-10-21 17:18 | XMS_ITS | Encounter Summary ---
Author Organization [employer] Address [address] [place] [address] 7 [place] [address] Care Team Providers Care Selling Underwriter Name Role Phone Cinthya Ray MD Primary Care Provider [phone] Mayito Acuña PharmD Unavailable [phone] Reason for Visit * Reason Onset Date Comments Appointment Request 09/02/2022 Encounter Details Date Type Department Care Team ([facility] st Contact Info) Description 09/02/2022 Telephone [facility] CHC MED & PEDS [address] [place], [place] [phone] Cinthya Ray MD 230 [place], [place] [phone] Appointment Request Social History Tobacco Use Types [...] her kidney failure.' Please contact pt at [phone] documented in this encounter Plan of Treatment Not on file documented as of this encounter Visit Diagnoses Not on filedocumented in this encounter Care Teams Selling Underwriter Relationship Specialty Start Date End Date Cinthya Ray MD 230 [place] [address] PCP - General Family Medicine 10/23/11 Mayito Acuña, Citlali 230 [place] [address] Pharmacist Internal Medicine 03/07/23 04/22/24 documented as of this encounter
--- OUTSIDE RECORDS SUMMARY | 2024-10-21 17:18 | XMS_ITS | Encounter Summary ---
Author Organization [employer] Address [address] [place] [address] 7 [place] [address] Care Team Providers Care Agricultural Sciences Professor Name Role Phone Cinthya Ray MD Primary Care Provider [phone] Mayito Acuña PharmD Unavailable [phone] Reason for Visit * Reason Onset Date Comments Med Refill 10/30/2023 Encounter Details Date Type Department Care Team (Late st Contact Info) Description 10/30/[address] [facility] MEDICINE 230 [place], [place] [phone] Cinthya Ray MD 230 [place], [place] [phone] Social History Tobacco Use Types Packs/Day Years [...] documented as of this encounter Care Teams Agricultural Sciences Professor Relationship Specialty Start Date End Date Cinthya Ray MD 230 [place] [address] PCP - General Family Medicine 10/23/11 Mayito Acuña PharmD [address] [place] [address] Pharmacist Internal Medicine 03/07/23 04/22/24 documented as of this encounter
--- OUTSIDE RECORDS SUMMARY | 2024-10-21 17:18 | XMS_ITS | Encounter Summary ---
Author Organization [employer] Address 75 [facility] 7 [place] [address] Care Team Providers Care Nutrition Services Manager Name Role Phone Cinthya Ray MD Primary Care Provider [phone] Mayito Acuña PharmD Unavailable [phone] Reason for Visit * Reason Onset Date Comments Med Refill 09/29/2023 Encounter Details Date Type Department Care Team (Late st Contact Info) Description 09/29/2023 Refill [facility] CHC MED & PEDS [address] [place], [place] [phone] Cinthya Ray MD 230 [place], [place] [phone] Type 2 diabetes mellitus with hyperglycemia, without long-term current use of insulin ([facility]) Social History Tobacco Use Types [...] Questionnaire-9 Score 11 09/29/2023 9:48 AM EDT Evleia Ortiz documented as of this encounter Plan [...] hyperglycemia, without long-term current use of insulin ([facility]) documented in this encounter Additional Health Concerns Assessment Noted Time PHQ-9 Depression Total Score: 11 024 9:48 AM EDT documented as of this encounter Care Teams Nutrition Services Manager Relationship Specialty Start Date End Date Cinthya Ray MD 230 [place] [address] PCP - General Family Medicine 10/23/11 Mayito Acuña PharmD 230 [place] [address] Pharmacist Internal Medicine 03/07/23 04/22/24 documented as of this encounter
--- OUTSIDE RECORDS SUMMARY | 2024-10-21 17:18 | XMS_ITS | Encounter Summary ---
Author Organization [employer] Address [address] [place] [address] [facility] [place] [address] Care Team Providers Care Sales And Marketing Associate Name Role Phone Cinthya Ray MD Primary Care Provider [phone] Mayito Acuña PharmD Unavailable [phone] Reason for Referral * Consultation (Routine) - Closed Specialty Diagnoses / Procedures Referred By Ramya t Referred To Contact Pharmacy Diagnoses Type 2 diabetes mellitus with hyperglycemia, with long-term current use of insulin (CMS/HCC) Cinthya Ray MD 230 [place] [address] Phone: tel: fax: Referral ID Status Reason Start Date Expiration Date V isits Requested Visits Authorized [id number] Closed Consult and Treat 12/23/2023 12/22/2024 6 6 Encounter Details Date Type Department Care Team (Late st Contact Info) Description 12/23/2023 Orders Only [facility] 230 [place], [place] [phone] Cinthya Ray MD 230 [place], [place] [phone] Type 2 diabetes mellitus with hyperglycemia, with [...] long-term current use of insulin ([facility]) Ordered: 12/23/2023 documented as of this encounter [...] long-term current use of insulin ([facility])- Primary documented in this encounter Additional Health Concerns Assessment Noted Time PHQ-9 Depression Total Score: 11 024 9:48 AM EDT documented as of this encounter Care Teams Sales And Marketing Associate Relationship Specialty Start Date End Date Cinthya Ray MD [address] [place] [address] PCP - General Family Medicine 10/23/11 Mayito Acuña PharmD [address] [place] [address] Pharmacist Internal Medicine 03/07/23 04/22/24 documented as of this encounter
--- OUTSIDE RECORDS SUMMARY | 2024-10-21 17:18 | XMS_ITS | Encounter Summary ---
Author Organization [employer] Address [address] [place] [address] 7 [place] [address] Care Team Providers Care Animal Anatomy Teacher Name Role Phone Cinthya Ray MD Primary Care Provider [phone] Reason for Visit * Reason Comments Med Refill Encounter Details Date Type Department Care Team ([facility] st Contact Info) Description 04/26/2024 Refill [facility] 230 [place], [place] [phone] Cinthya Ray MD 230 [place] [address] Social History Tobacco Use Types Packs/Day Years [...] documented as of this encounter Care Teams Animal Anatomy Teacher Relationship Specialty Start Date End Date Cinthya Ray MD 230 [place] [address] PCP - General Family Medicine 10/23/11 documented as of this encounter
--- OUTSIDE RECORDS SUMMARY | 2024-10-21 17:18 | XMS_ITS | Encounter Summary ---
Author Organization [employer] Address 75 [facility] 7 [place] [address] Care Team Providers Care Metal Riveting Machine Operator Name Role Phone Cinthya Ray MD Primary Care Provider [phone] Mayito Acuña PharmD Unavailable [phone] Encounter Details Date Type Department Care Team (Late st Contact Info) Description 09/15/2023 Orders Only [facility] 230 [place], [place] [phone] Cinthya Ray MD 230 [place] [address] Type 2 diabetes mellitus with hyperglycemia, without long-term current use of insulin ([facility]) Social History Tobacco Use Types Packs/Day [...] hyperglycemia, without long-term current use of insulin ([facility]) documented in this encounter Additional Health Concerns Assessment Noted Time PHQ-9 Depression Total Score: 0 09/10/19 24 9:01 AM EDT documented as of this encounter Care Teams Metal Riveting Machine Operator Relationship Specialty Start Date End Date Cinthya Ray MD [address] [place] [address] PCP - General Family Medicine 10/23/11 Mayito Acuña PharmD [address] [place] [address] Pharmacist Internal Medicine 03/07/23 04/22/24 documented as of this encounter
--- OUTSIDE RECORDS SUMMARY | 2024-10-21 17:18 | XMS_ITS | Encounter Summary ---
Author Organization [employer] Address 75 [facility] 7 [place] [address] Care Team Providers Care Lei Seller Name Role Phone Cinthya Ray MD Primary Care Provider Mayito Acuña PharmD Unavailable [phone] Encounter Details Date Type Department Care Team (Late st Contact Info) Description 04/07/2024 Orders Only [facility] MEDICINE 230 [place], [place] [phone] Lexis Spann MD 230 [place] [address] Social History Tobacco Use Types Packs/Day Years [...] the past 12 months, has t he [employer], gas, oil or water company threatened to [...] documented as of this encounter Care Teams Lei Seller Relationship Specialty Start Date End Date Cinthya Ray MD 230 [place] [address] PCP - General Family Medicine 10/23/11 Mayito Acuña PharmD 230 [place] [address] Pharmacist Internal Medicine 03/07/23 04/22/24 documented as of this encounter
--- OUTSIDE RECORDS SUMMARY | 2024-10-21 17:18 | XMS_ITS | Encounter Summary ---
Author Organization [employer] Address [address] [place] [address] 7 [place] [address] Care Team Providers Care Insurance Sales Assistant Name Role Phone Cinthya Ray MD Primary Care Provider Mayito Acuña PharmD Unavailable [phone] Reason for Visit * Reason Onset Date Comments Med Refill 09/29/2023 Encounter Details Date Type Department Care Team (Late st Contact Info) Description 09/29/2023 Refill [facility] MEDICINE 230 [place], [place] [phone] Cinthya Ray MD [address] [place], [place] [phone] Type 2 diabetes mellitus with hyperglycemia, without long-term current use of insulin ([facility]) Social History Tobacco Use [...] current use of insulin ([facility]) documented in this encounter Additional Health Concerns Assessment Noted Time PHQ-9 Depression Total Score: 11 024 9:48 AM EDT documented as of this encounter Care Teams Insurance Sales Assistant Relationship Specialty Start Date End Date Cinthya Ray MD [address] [place] [address] PCP - General Family Medicine 10/23/11 Mayito Acuña PharmD [address] [place] [address] Pharmacist Internal Medicine 03/07/23 04/22/24 documented as of this encounter
--- OUTSIDE RECORDS SUMMARY | 2024-10-21 17:18 | XMS_ITS | Encounter Summary ---
Author Organization [employer] Address 75 [facility] 7 [place] [address] Care Team Providers Care Neurosurgical Nurse Practitioner Name Role Phone Cinthya Ray MD Primary Care Provider [phone] Mayito Acuña PharmD Unavailable [phone] Reason for Visit * Reason Onset Date Comments Med Refill 03/12/2024 Encounter Details Date Type Department Care Team (Late st Contact Info) Description 03/12/[address] [facility] CHC MED & PEDS [address] [place], [place] [phone] Cinthya Ray MD 230 [place], [place] [phone] Type 2 diabetes mellitus with hyperglycemia, without long-term current use of insulin ([facility]) Social History Tobacco Use [...] current use of insulin ([facility]) documented in this encounter Additional Health Concerns Assessment Noted Time PHQ-9 Depression Total Score: 11 024 9:48 AM EDT documented as of this encounter Care Teams Neurosurgical Nurse Practitioner Relationship Specialty Start Date End Date iCnthya Ray MD 230 [place] [address] PCP - General Family Medicine 10/23/11 Mayito Acuña PharmD 230 [place] [address] Pharmacist Internal Medicine 03/07/23 04/22/24 documented as of this encounter
--- OUTSIDE RECORDS SUMMARY | 2024-10-21 17:18 | XMS_ITS | Encounter Summary ---
Author Organization [employer] Address 75 [facility] 7 [place] [address] Care Team Providers Care Lead Blender Name Role Phone Cinthya Ray MD Primary Care Provider [phone] Mayito Acuña PharmD Unavailable [phone] Reason for Visit * Reason Onset Date Comments Med Refill 12/24/2023 Encounter Details Date Type Department Care Team (Late st Contact Info) Description 12/24/2023 Refill [facility] CH[facility] MED & PEDS [address] [place], [place] [phone] Cinthya Ray MD 230 [place], [place] [phone] Type 2 diabetes mellitus with hyperglycemia, without long-term current use of insulin ([facility]) Social History Tobacco Use Types Packs/Day Years [...] hyperglycemia, without long-term current use of insulin ([facility]) documented in this encounter Additional Health Concerns Assessment Noted Time PHQ-9 Depression Total Score: 11 024 9:48 AM EDT documented as of this encounter Care Teams Lead Blender Relationship Specialty Start Date End Date Cinthya Ray MD [address] [place] [address] PCP - General Family Medicine 10/23/11 Mayito Acuña PharmD [address] [place] [address] Pharmacist Internal Medicine 03/07/23 04/22/24 documented as of this encounter
--- OUTSIDE RECORDS SUMMARY | 2024-10-21 17:18 | XMS_ITS | Encounter Summary ---
Author Organization [employer] Address 75 [facility] 7 [place] [address] Care Team Providers Care Clerical Stock Inspector Name Role Phone Cinthya Ray MD Primary Care Provider [phone] Mayito Acuña PharmD Unavailable [phone] Encounter Details Date Type Department Care Team ([facility] st Contact Info) Description 08/05/2023 Orders Only [facility] CHC MED & PEDS [address] [place] [address] Izzy Olvera FNP 230 [place] [address] Social History Tobacco Use Types Packs/Day Years [...] documented as of this encounter Care Teams Clerical Stock Inspector Relationship Specialty Start Date End Date Cinthya Ray MD 230 [place] [address] PCP - General Family Medicine 10/23/11 Mayito Acuña PharmD 230 [place], [place] [phone] Pharmacist Internal Medicine 03/07/23 04/22/24 documented as of this encounter
--- OUTSIDE RECORDS SUMMARY | 2024-10-21 17:18 | XMS_ITS | Encounter Summary ---
Author Organization [employer] Address [address] [place] [address] [address] Care Team Providers Care Punchboard Filling Machine Operator Name Role Phone Cinthya Ray MD Primary Care Provider [phone] Mayito Acuña PharmD Unavailable [phone] Reason for Visit * Reason Onset Date Comments Medication Question 06/14/2022 Encounter Details Date Type Department Care Team (Late st Contact Info) Description 06/14/2022 Telephone [facility] MEDICINE 230 [place], [place] [phone] Cinthya Ray MD [address] [place], [place] [phone] Medication Question Social History Tobacco Use Types [...] on filedocumented in this encounter Care Teams Punchboard Filling Machine Operator Relationship Specialty Start Date End Date Cinthya Ray MD [address] [place] [address] PCP - General Family Medicine 10/23/11 Mayito Acuña, DyanD [address] [place] [address] Pharmacist Internal Medicine 03/07/23 04/22/24 documented as of this encounter
--- OUTSIDE RECORDS SUMMARY | 2024-10-21 17:18 | XMS_ITS | Encounter Summary ---
Author Organization [employer] Address 75 [facility] 7 [place] [address] Care Team Providers Care Personal Driver Name Role Phone Cinthya Ray MD Primary Care Provider [phone] Encounter Details Date Type Department Care Team ([facility] st Contact Info) Description 06/09/2024 Orders Only [facility] MEDICINE 230 [place], [place] [phone] Abigail Darling CNM 230 [place] [address] Social History Tobacco Use Types Packs/Day Years [...] as of this encounter Care Teams Personal Driver Relationship Specialty Start Date End Date Cinthya Ray MD [address] [place] [address] PCP - General Family Medicine 10/23/11 documented as of this encounter
--- OUTSIDE RECORDS SUMMARY | 2024-10-21 17:18 | XMS_ITS | Encounter Summary ---
Author Organization [employer] Address [address] [facility] 7 [place] [address] Care Team Providers Care Double Back Operator Name Role Phone Cinthya Ray MD Primary Care Provider [phone] Mayito Acuña PharmD Unavailable Encounter Details Date Type Department Care Team (Late st Contact Info) Description 06/30/2023 Orders Only [facility] MEDICINE [address] [place], [place] [phone] Mayito Acuña, PharmD [address] [place] [address] Type 2 diabetes mellitus with hyperglycemia, with long-term current use of insulin ([facility]) (Primary Dx) Social History Tobacco [...] hyperglycemia, with long-term current use of insulin ([facility]) documented in this encounter Results * Hematoxylin and Eosin Stain (06/30/2023 12:47 PM EDT) 06/30/2023 12:4 7 PM EDT 06/30/2023 1:27 PM EDT [facility] - 07/02/2023 9:30 AM EDT ----- ------- Name: Sonali Gill Age/Sex: 33/F : 1990 [facility]#: [id number] Unit#: [id number] Attend Dr: Jose Figueroa MD Re06/30/23 Status: [facility] Location: [facility] Disch: ----- ------- SPEC : [id number] RECD: 06/30/23-1327 STATUS: [facility] NUM: [id number] MELANIA: 06/30/23-[address] [facility] [address]: Jose Figueroa MD ENTERED: 06/30/23-1333 [...] Name: Sonali Gill Age/Sex: : 1990 Unit#: [id number] Attend Dr: Jose Figueroa MD Re06/30/23 Status: [facility] Location: [facility] Disch: ----- ------- SPEC : [id number] RECD: 06/30/23 STATUS: [facility] NUM: [id number] MELANIA: 06/30/23-[address] [facility] [address]: Jose Figueroa MD ENTERED: 06/30/239706 SP TYPE: Surgical OTHR DR: Cinthya Ray [...] on A-C Copies To: Jose Figueroa MD [address] [place] [address] [place] [address] Cinthya Ray MD [address] [place] [address] ----- ------- Signed (signature on file) Esa Aguiar MD 07/02/23 0930 ----- ------- END OF REPORT us Generic External Data Provider LAB BLOOD ORDERAB LES Final Result [facility] [address] [place] [address] [phone] documented in this encounter Visit Diagnoses Diagnosis Type 2 diabetes mellitus with hyperglycemia, with long-term current use of insulin ([facility])- Primary documented in this encounter Additional Health Concerns Assessment Noted Time PHQ-9 Depression Total Score: 0 06/10/19 24 2:55 PM EDT documented as of this encounter Care Teams Double Back Operator Relationship Specialty Start Date End Date Cinthya Ray MD [address] [place] [address] PCP - General Family Medicine 10/23/11 Mayito Acuña, Citlali [address] [place] [address] Pharmacist Internal Medicine 03/07/23 04/22/24 documented as of this encounter
--- OUTSIDE RECORDS SUMMARY | 2024-10-21 17:18 | XMS_ITS | Encounter Summary ---
Author Organization [employer] Address [address] [place] [address] [address], [place] [address] Care Team Providers Care Core Setter Name Role Phone Cinthya Ray MD Primary Care Provider Mayito Acuña PharmD Unavailable [phone] Reason for Referral * Consultation (Urgent) - Closed Specialty Diagnoses / Procedures Referred By Contac t Referred To Contact Endocrinology Diagnoses Type 2 diabetes mellitus with hyperglycemia, with long-term current use of insulin (CMS/HCC) Cinthya Ray MD [address] [place] [address] Phone: tel: fax: [facility] Endocrinology [address] [place] [address] Phone: tel: fax: Referral ID Status Reason Start Date Expiration Date V isits Requested Visits Authorized [id number] Closed Specialty Services Required 04/19/2024 04/19/2025 12 12 Encounter Details Date Type Department Care Team (Late st Contact Info) Description 04/19/2024 Orders Only [facility] MEDICINE [address] [place], [place] [phone] Cinthya Ray MD [address] [place], [place] [phone] Type 2 diabetes mellitus with hyperglycemia, with [...] hyperglycemia, with long-term current use of insulin ([facility]) 04/30/2024 Scheduled Referrals Name Type Priority Associated Diagnoses Order Schedule Referral to Endocrinology Outpatient Referral Urgent Type 2 diabetes mellitus with hyperglycemia, with long-term current use of insulin ([facility]) Expected: 04/19/2024 (Approximate), Expires: 04/19/2025 [...] hyperglycemia, with long-term current use of insulin ([facility])- Primary documented in this encounter Additional Health Concerns Assessment Noted Time PHQ-9 Depression Total Score: 11 024 9:48 AM EDT documented as of this encounter Care Teams Core Setter Relationship Specialty Start Date End Date Cinthya Ray MD [address] [place] [address] PCP - General Family Medicine 10/23/11 Mayito Acuña PharmD [address] [place] [address] Pharmacist Internal Medicine 03/07/23 04/22/24 documented as of this encounter
--- OUTSIDE RECORDS SUMMARY | 2024-10-21 17:18 | XMS_ITS | Encounter Summary ---
Author Organization [employer] Address [address] [facility] 7 [place] [address] Care Team Providers Care Non Food Receiving Clerk Name Role Phone Cinthya Ray MD Primary Care Provider [phone] Mayito Acuña PharmD Unavailable [phone] Reason for Visit * Reason Onset Date Comments Med Refill 10/30/2023 Encounter Details Date Type Department Care Team (Late st Contact Info) Description 10/30/2023 Refill [facility] MED & PEDS [address] [place], [place] [phone] Cinthya Ray MD [address] [place], [place] [phone] Type 2 diabetes mellitus with hyperglycemia, without long-term current use of insulin ([facility]) Social History Tobacco [...] hyperglycemia, without long-term current use of insulin ([facility]) documented in this encounter Additional Health Concerns Assessment Noted Time PHQ-9 Depression Total Score: 11 024 9:48 AM EDT documented as of this encounter Care Teams Non Food Receiving Clerk Relationship Specialty Start Date End Date Cinthya Ray MD [address] [place] [address] PCP - General Family Medicine 10/23/11 Mayito Acuña PharmD [address] [place] [address] Pharmacist Internal Medicine 03/07/23 04/22/24 documented as of this encounter
--- OUTSIDE RECORDS SUMMARY | 2024-10-21 17:18 | XMS_ITS | Encounter Summary ---
Author Organization [employer] Address [address] [facility] 7 [place] [address] Care Team Providers Care Delivery Man Name Role Phone Cinthya Ray MD Primary Care Provider [phone] Mayito Acuña PharmD Unavailable [phone] Reason for Visit * Reason Onset Date Comments Med Refill 01/03/2023 Encounter Details Date Type Department Care Team (Late st Contact Info) Description 01/03/[address] [facility] MEDICINE [address] [place], [place] [phone] Cinthya Ray MD [address] [place], [place] [phone] Social History Tobacco Use Types Packs/Day Years [...] filedocumented in this encounter Care Teams Delivery Man Relationship Specialty Start Date End Date Cinthya Ray MD [address] [place] [address] PCP - General Family Medicine 10/23/11 Mayito Acuña, Citlali [address] [place] [address] Pharmacist Internal Medicine 03/07/23 04/22/24 documented as of this encounter
--- OUTSIDE RECORDS SUMMARY | 2024-10-21 17:18 | XMS_ITS | Encounter Summary ---
Author Organization [employer] Address [address] [place] [address] 7 [place] [address] Care Team Providers Care Assembly Line Inspector Name Role Phone Cinthya Ray MD Primary Care Provider Mayito Acuña PharmD Unavailable [phone] Reason for Visit * Reason Onset Date Comments Med Refill 11/02/2023 Encounter Details Date Type Department Care Team (Late st Contact Info) Description 11/02/2023 Refill [facility] MEDICINE [address] [place], [place] [phone] Cinthya Ray MD [address] [place], [place] [phone] Social History Tobacco Use Types Packs/Day Years [...] but unableto make. Pt will come to [facility] today open till 8pm. Pt [...] Gill Sent: 11/10/2023 5:32 PM EDT To: [facility] Front Office Subject: Appointment Request Appointment Request From: Sonali Rosa With Provider: Cinthya Ray MD [[facility]] Preferred Date Range: 11/11/2023 - [...] documented as of this encounter Care Teams Assembly Line Inspector Relationship Specialty Start Date End Date Cinthya Ray MD [address] [place] [address] PCP - General Family Medicine 10/23/11 Mayito Acuña PharmD [address] [place] [address] Pharmacist Internal Medicine 03/07/23 04/22/24 documented as of this encounter
--- OUTSIDE RECORDS SUMMARY | 2024-10-21 17:18 | XMS_ITS | Encounter Summary ---
Author Organization [employer] Address [address] [place] [address] 7 [place] [address] Care Team Providers Care Jd Edwards Developer Name Role Phone Cinthya Ray MD Primary Care Provider [phone] Mayito Acuña PharmD Unavailable [phone] Reason for Visit * Reason Comments Med Refill Encounter Details Date Type Department Care Team (Late st Contact Info) Description 08/31/2022 Refill [facility] MEDICINE [address] [place] [address] Starla Nuñez MD [address] [place], [place] [phone] Injury of head, initial encounter Social History [...] encounter documented in this encounter Care Teams Jd Edwards Developer Relationship Specialty Start Date End Date Cinthya Ray MD [address] [place] [address] PCP - General Family Medicine 10/23/11 Mayito Acuña PharmD [address] [place] [address] Pharmacist Internal Medicine 03/07/23 04/22/24 documented as of this encounter
--- OUTSIDE RECORDS SUMMARY | 2024-10-21 17:18 | XMS_ITS | Encounter Summary ---
Author Organization [employer] Address [address] [facility] 7 [place] [address] Care Team Providers Care Scrap Shear Operator Name Role Phone Cinthya Ray MD Primary Care Provider [phone] Mayito Acuña PharmD Unavailable [phone] Reason for Visit * Reason Onset Date Comments Results 12/09/2022 Encounter Details Date Type Department Care Team ([facility] st Contact Info) Description 12/09/2022 Telephone [facility] MEDICINE [address] [place], [place] [phone] Cinthya Ray MD [address] [place], [place] [phone] Results Social History Tobacco Use Types Packs/Day [...] to US results. Please contact pt at [phone] documented in this encounter Plan of Treatment Not on file documented as of this encounter Visit Diagnoses Not on filedocumented in this encounter Care Teams Scrap Shear Operator Relationship Specialty Start Date End Date Cinthya Ray MD [address] [place] [address] PCP - General Family Medicine 10/23/11 Mayito Acuña, Citlali [address] [place] [address] Pharmacist Internal Medicine 03/07/23 04/22/24 documented as of this encounter
--- OUTSIDE RECORDS SUMMARY | 2024-10-21 17:18 | XMS_ITS | Encounter Summary ---
Author Organization [employer] Address [address] [facility] 7t [place] [address] Care Team Providers Care Overhead Crane Inspector Name Role Phone Cinthya Ray MD Primary Care Provider [phone] Mayito Acuña PharmD Unavailable [phone] Encounter Details Date Type Department Care Team (Late st Contact Info) Description 06/13/2022 Orders Only [facility] [address] [place] [address] Jerrica Girard FNP Social History Tobacco Use [...] on filedocumented in this encounter Care Teams Overhead Crane Inspector Relationship Specialty Start Date End Date Cinthya Ray MD [address] [place] [address] PCP - General Family Medicine 10/23/11 Mayito Acuña, DyanD [address] [place] [address] Pharmacist Internal Medicine 03/07/23 04/22/24 documented as of this encounter
--- OUTSIDE RECORDS SUMMARY | 2024-10-21 17:18 | XMS_ITS | Encounter Summary ---
Author Organization [employer] Address [address] [facility] 7 [place] [address] Care Team Providers Care Compress Trucker Name Role Phone Cinthya Ray MD Primary Care Provider [phone] Mayito Acuña PharmD Unavailable [phone] Reason for Visit * Reason Onset Date Comments Med Refill 11/02/2023 Encounter Details Date Type Department Care Team (Late st Contact Info) Description 11/02/2023 Refill [facility] MED & PEDS [address] [place], [place] [phone] Cinthya Ray MD [address] [place], [place] [phone] Type 2 diabetes mellitus with hyperglycemia, without long-term current use of insulin ([facility]) Social History Tobacco Use Types [...] hyperglycemia, without long-term current use of insulin ([facility]) documented in this encounter Additional Health Concerns Assessment Noted Time PHQ-9 Depression Total Score: 11 024 9:48 AM EDT documented as of this encounter Care Teams Compress Trucker Relationship Specialty Start Date End Date Cinthya Ray MD [address] [place] [address] PCP - General Family Medicine 10/23/11 Mayito Acuña PharmD [address] [place] [address] Pharmacist Internal Medicine 03/07/23 04/22/24 documented as of this encounter
== END 2024-10-21 13:43 | disposition home or self-care (01) ==
LOC: HO.HCS 13:16
PROVIDERS: PCP Family Medicine; Visit Provider Internal Medicine
DX: I95.9 Hypotension, unspecified (principal)
CPT/HCPCS: 93010; 99214

== ENCOUNTER → 2024-10-21 13:16 | Outpatient (BNVA) | payer MEDICAID, SELFPAY | PROVIDERS: PCP Family Medicine; Visit Provider Internal Medicine | DX: R42 Dizziness and giddiness (principal); I95.9 Hypotension, unspecified | CPT/HCPCS: 93005; 99212 ==

== ENCOUNTER 2024-11-19 13:57 | Outpatient (AMB) | payer MEDICAID, SELFPAY ==
[2024-11-19 14:00] VITALS: BP 84/56; PULSE 92; O2SAT 99; BMI 36.8
--- NOTE | 2024-11-19 14:00 | MHC.OFFVIS ---
Vital Signs 11/19/24 14:00 Height 5 ft 2 in Weight 201 lb 0.985 oz BMI 36.8 BP 84/56 L Blood Pressure Location Rt brachial Position Sitting Pulse 92 Pulse Source Pulse Oximeter Pulse Oximetry (%) 99 Oxygen Delivery Method Room Air Intake Visit Reasons: T2DM Intake Note: Patient present today for Type 2 Diabetes Mellitus Last Diabetic eye exam: Last exam was on 01/2024 Last Podiatry Visit: Doesn't have one Random Glucose: 150 mg/dl HgA1C: 7.7% Abstract Checker Required: No Accompanied by: Self / Same As Patient Allergies Seasonal Allergies Allergy (Mild, Verified 11/19/24 14:06) Runny Nose Medication List - Last Reconciled 11/19/24 by Kimberly Isaac PA-C blood sugar diagnostic (FreeStyle Lite Strips) Use daily As directed to check blood glucose blood-glucose meter (FreeStyle Lite Meter kit) Use daily As directed to check blood sugars blood-glucose sensor (FreeStyle Audrey 3 Plus Sensor device) Use daily As directed to monitor glucose blood-glucose,machine cloth measurer,cont (FreeStyle Audrey 3 [place]) Use daily As directed to monitor blood glucose insulin aspart U-100 (Novolog FlexPen U-100 Insulin aspart) 5 units (0.05 mL) subcut TID insulin degludec (Tresiba FlexTouch U-100 insulin) 50 units subcut DAILY lamotrigine mg PO lancets (FreeStyle Lancets) use BID as directed to check blood glucose metformin 1,000 mg (2 x 500 mg) PO BID pantoprazole 40 mg PO DAILY pen needle, diabetic As directed tid sumatriptan succinate 25 mg PO Q2-4H PRN tirzepatide (Mounjaro) 10 mg (0.5 mL) subcut QWEEK HPI HPI T2DM: Details: Patient is a 34-year-old female with a significant past medical history of type 2 diabetes, obesity, depression and Sen's esophagus presenting today for follow up visit regarding diabetes. Endo: She was diagnosed with diabetes around age 26. Her A1c is 7.7. She is currently on metformin 1000 mg twice a day, Tresiba 60 units daily , and Mounjaro 7.5 mg weekly. -The lispro was causing n/v almost instantly after administering so she d/c'd this. -The Trulicity and ozempic she finds ineffective/nausea for 2 days after taking it. cgm-usage 78%, G mi 7.1%, average glucose 157. Very hyperglycemic 6%, hyperglycemic 21%, in range 73%, 0% hypoglycemia. CV: Blood pressure today is 84/56. Following with cardiology for hypotension. [facility] Medical History Fatty liver GERD (gastroesophageal reflux disease) Anxiety Depression Insulin dependent type 2 diabetes mellitus Migraines BMI 32.0-32.9,adult Gallstones Body mass index (BMI) of 38.0 to 38.9 in adult Obesity Surgical History Hx of shoulder surgery History of esophagogastroduodenoscopy (EGD) History of cholecystectomy H/O tubal ligation History of surgery on wrist Hx of section Family History Father HTN (hypertension) Mother No problems noted. Sister Arthritis Knee problem Sister Arthritis Allergies Knee problem Brother No problems noted. Brother No problems noted. Son No problems noted. Son Autism Family/Other Breast cancer Social History Household Members Other:: minor children Are you a primary resident care provider to a significant other at home: Yes Do you presently have visiting nurse or other home services: No Alcohol intake: never Comment: counts correct Patient Tobacco Use Status: Never used Tobacco Current occupation: rt handed Physical Exam Vital Signs: Last Vital Signs Pulse 92 11/19/24 14:00 BP 84/56 L 11/19/24 14:00 Pulse Ox 99 11/19/24 14:00 Oxygen Delivery Method Room Air 11/19/24 14:00 BMI result Body Mass Index 36.8 Const Orientation/consciousness: patient oriented x3 HEENT Ears: hearing grossly normal bilaterally Neck Thyroid: Thyroid normal Lymphatic: no lymphadenopathy noted Resp Auscultation: clear to auscultation bilaterally Cardio Rate: regular rate Rhythm: regular rhythm Heart sounds: S1 normal heart sound present and S2 normal heart sound present Skin General skin exam: no rashes or lesions noted Neuro General: patient oriented x3, gait normal and no focal motor deficits Results AMB Hemoglobin A1c AMB Hemoglobin A1c 7.7 % Last Edit by STARLA Le on 11/19/24 14:21 Results Reviewed Results Reviewed: Laboratory Last Values Glucose (Clinic) 150 mg/dL (60-115) H 11/19/24 14:08 Assessment & Plan Assessment & Plan (1) Uncontrolled type 2 diabetes mellitus with hyperglycemia, with long-term current use of insulin: Code(s): E11.65 - Type 2 diabetes mellitus with hyperglycemia; Z79.4 - jail (current) use of insulin Category: Medical Plan: reduce Tresiba 50 units use NovoLog 5 units prn large meals Continue metformin 1000 mg bid Increase Mounjaro to 10 mg weekly Continue metformin 1000 mg twice a day Orders: Orders AMB Hemoglobin A1c Today E11.65 - Type 2 diabetes mellitus with hyperglycemia, Z13.9 - Encounter for screening, unspecified, Z79.4 - jail (current) use of insulin Coding Level of Care Code Est Pt Level 4 (32285) Complex EM visit Add On G2211 Diagnoses Uncontrolled type 2 diabetes mellitus with hyperglycemia, with long-term current use of insulin E11.65; Z79.4
[2024-11-19 14:11] LABS: Glucose, Whole Blood 150 mg/dL (60-115)
== END 2024-11-19 15:18 | disposition home or self-care (01) ==
LOC: HO.ENCR 13:57
PROVIDERS: PCP Family Medicine; Visit Provider Physician Assistant
DX: E11.65 Type 2 diabetes mellitus with hyperglycemia (principal); Z79.4 Long term (current) use of insulin; Z13.9 Encounter for screening, unspecified

== ENCOUNTER → 2024-11-19 13:57 | Outpatient (BNVA) | payer MEDICAID, SELFPAY | PROVIDERS: PCP Family Medicine; Visit Provider Physician Assistant | DX: E11.65 Type 2 diabetes mellitus with hyperglycemia (principal); E66.9 Obesity, unspecified; Z79.84 Long term (current) use of oral hypoglycemic drugs; Z68.36 Body mass index [BMI] 36.0-36.9, adult | CPT/HCPCS: 82947; 83036; 99212 ==

== ENCOUNTER → 2024-12-17 12:34 | Outpatient (REF) | payer MEDICAID, SELFPAY ==
--- NOTE | 2024-12-17 12:37 | CA_ITS ---
Transthoracic Echocardiogram Patient (Last, First, Middle): Sonali Gill, Gender: F Date of : 1990 Age: 34 Procedure Date: 12/17/2024 Procedure Type: Transthoracic Echocardiogram Location: OP Height: 157.48 cm Weight: 90.72 kg BSA: 1.91 m2 Heart Rate: 87 bpm BP: 90 / 60 mmHg [place]ug Mill Operator: TO Referring MD: Josue Chaudhry MD Merchandise Associate: Herbert Horton MD Symptoms: I95.9 - Hypotension, unspecified Study Quality: Technically Difficult ECG Rhythm: Sinus Conclusions: - Essentially normal study Findings Procedure Information Contrast agent, definity, is being given per protocol without apparent complications. Left Ventricle Normal left ventricular size, thickness, and systolic function. The visually estimated ejection fraction is between 55-60%. Spectral Doppler is indicative of a normal filling pattern. Right Ventricle Normal right ventricular cavity size and systolic function. Atria The left atrium is normal in size. Interatrial shunt cannot be excluded. The right atrium is normal in size. Aortic Valve The aortic valve structure and function is likely normal. There is no aortic valve stenosis. There is no aortic valve regurgitation. Mitral Valve Normal mitral valve structure and function. There is trace mitral valve regurgitation. There is no mitral valve stenosis. Pulmonic Valve The pulmonic valve is likely normal. There is trace pulmonic valve regurgitation. Tricuspid Valve Likely normal tricuspid valve structure and function. Tricuspid regurgitation envelope is inadequate for calculation of right ventricular systolic pressure. Normal right atrial pressure. Great Vessels All visible segments of the aorta are normal in size. The pulmonary artery was not well visualized. Venous The inferior vena cava is normal in size and collapses greater than 50% with inspiration. Pericardium/Pleural There is no evidence of pericardial effusion. Prior Study Comparison No prior study available for comparison. Measurements 2D Linear Measurements IVSd: 0.72 0.6-0.9/0.6-1.0 cm LVIDd: 4.90 3.9-5.3/4.2-5.9 cm LVIDd Index: 2.57 2.4-3.2/2.2-3.1 cm/m2 LVIDs: 3.34 2.0-3.6 cm LVPWd: 0.79 0.7-1.1 cm LA Diam: 3.60 2.7-3.8/3.0-4.0 cm LAIDs Index: 1.88 1.5-2.3 cm/m2 LV Mass: 151.30 67-162/88-224 g LV Mass Index: 79.21 43-95/49-115 g/m2 LVOT Diam: 2.30 3.0+(-)1.3 cm Mitral Valve MV Pk E: 0.48 MV PK A: 0.49 MV Decel Time: 153.00 E/A: 1.00 E'Lateral: 10.90 E'Medial: 6.09 E/E' Med: 7.90 E/E' Lat: 4.40 PHT: 45.00 MVA PHT: 4.89 Decel [place]: 3.13 Aortic Valve AoV Pk Trav: 1.08 AoV Mn Trav: 0.72 AoV VTI: 0.18 AoV Pk Grad: 5.00 Aov Mn Grad: 2.00 KIKE Cont.VTI: 3.13 LVOT LVOT Pk Trav: 0.84 LVOT Mn Trav: 0.55 LVOT VTI: 0.14 LVOT Pk Grad: 3.00 LVOT Mn Grad: 1.00 LVOT Diam: 2.30 LVOT Area: 4.15 Diastolic Function MV Pk E: 0.48 MV Pk A: 0.49 E/A: 1.00 E'Medial: 6.09 E/E' Med: 7.90 E' Laterial: 10.90 E/E' Lat: 4.40 Right Ventricle TAPSE (mm): 17.90 TVS' Trav: 9.63 Tricuspid Valve RA Press: 3.00 Great Vessels Aorta Sinus of Valsalva: 3.03 2.0-3.5 cm Ao Asc: 3.00 2.1-3.4 cm Updated in Other Vendor System with Status of Final Herbert Horton MD electronically signed on 12/17/2024 4:16:10 PM with status of Final
--- OUTSIDE RECORDS SUMMARY | 2024-12-17 14:45 | XMS_ITS | Encounter Summary ---
Author Organization [employer] Address [address] [place] [address] 7 [place] [address] Care Team Providers Care Order Tracer Name Role Phone Cinthya Ray MD Primary Care Provider [phone] Mayito Acuña PharmD Unavailable [phone] Reason for Visit * Reason Onset Date Comments callback request 12/30/2023 Encounter Details Date Type Department Care Team (Late st Contact Info) Description 12/30/2023 Telephone [facility] MEDICINE [address] [place], [place] [phone] Cinthya Ray MD [address] [place], [place] [phone] callback request Social History Tobacco Use Types [...] book an appointment for follow up Callback [phone] documented in this encounter Plan of Treatment Upcoming Encounters Date Type Department Care Team (Late st Contact Info) Description 01/04/2025 3:00 PM EST Office Visit [facility] [address] [place] [address] [facility] [address] [place] [address] documented as of this encounter Goals Goal Patient Goal Type Associated Problems Recent Progress Patient-Stated? Author Blood Pressure < 140/90 Blood Pressure 100/69(2024 9:23 AM EDT) No Mayito Acuña, PharmDao Hemoglobin A1c < 7 Result Component 6.5( 3:35 PM EDT) No Acuña, Mayito, PharmD documented as of this encounter Visit Diagnoses Not on filedocumented in this encounter Additional Health Concerns Assessment Noted Time PHQ-9 Depression Total Score: 11 024 9:48 AM EDT documented as of this encounter Care Teams Order Tracer Relationship Specialty Start Date End Date Cinthya Ray MD [address] [place] [address] PCP - General Family Medicine 10/23/11 Mayito Acuña, PharmD [address] [place] [address] Pharmacist Internal Medicine 03/07/23 04/22/24 documented as of this encounter
--- OUTSIDE RECORDS SUMMARY | 2024-12-17 14:45 | XMS_ITS | Encounter Summary ---
Author Organization [employer] Address [address] [facility] 7 [place] [address] Care Team Providers Care Customer Insight Analyst Name Role Phone Cinthya Ray MD Primary Care Provider [phone] Mayito Acuña PharmD Unavailable [phone] Encounter Details Date Type Department Care Team (Late st Contact Info) Description 04/07/2024 Orders Only [facility] [address] [place], [place] [phone] Lexis Spann MD [address] [place] [address] Social History Tobacco Use Types Packs/Day Years [...] the past 12 months, has t he [employer] or [employer] threatened to [...] Description 01/04/2025 3:00 PM EST Office Visit [facility] ADULT DENTAL [address] [place] [address] Thompson [facility]cleod [address] [place] [address] documented as of this encounter Goals Goal [...] documented as of this encounter Care Teams Customer Insight Analyst Relationship Specialty Start Date End Date Cinthya Ray MD [address] [place] [address] PCP - General Family Medicine 10/23/11 Mayito Acuña, PharmD [address] [place] [address] Pharmacist Internal Medicine 03/07/23 04/22/24 documented as of this encounter
--- OUTSIDE RECORDS SUMMARY | 2024-12-17 14:45 | XMS_ITS | Encounter Summary ---
Author Organization [employer] Address 75 [facility] 7 [place] [address] Care Team Providers Care Medical Director/Head Team Physician Name Role Phone Cinthya Ray MD Primary Care Provider [phone] Mayito Acuña PharmD Unavailable [phone] Encounter Details Date Type Department Care Team (Late st Contact Info) Description 01/31/2024 Orders Only [facility] MEDICINE [address] [place], [place] [phone] Cinthya Ray MD 230 [place] [address] Vitamin D deficiency (Primary Dx) Social History [...] Description 01/04/2025 3:00 PM EST Office Visit [facility] ADULT DENTAL 505 [place], [place] [phone] Thompson [facility]cleod 505 [place] [address] documented as of this encounter Goals Goal [...] as of this encounter Care Teams Medical Director/Head Team Physician Relationship Specialty Start Date End Date Cinthya Ray MD [address] [place] [address] PCP - General Family Medicine 10/23/11 Mayito Acuña, PharmD [address] [place] [address] Pharmacist Internal Medicine 03/07/23 04/22/24 documented as of this encounter
--- OUTSIDE RECORDS SUMMARY | 2024-12-17 14:45 | XMS_ITS | Encounter Summary ---
Author Organization [employer] Address [address] [facility] 7 [place] [address] Care Team Providers Care Chief Technologist Name Role Phone Cinthya Ray MD Primary Care Provider [phone] Mayito Acuña PharmD Unavailable [phone] Encounter Details Date Type Department Care Team (Late st Contact Info) Description 09/15/2023 Orders Only [facility] MED[facility]INE 230 [place], [place] [phone] Citnhya Ray MD 230 [place] [address] Type 2 diabetes mellitus with hyperglycemia, without long-term current use of insulin ([facility]) Social History Tobacco Use Types Packs/Day [...] Description 01/04/2025 3:00 PM EST Office Visit [facility] ADULT [facility] 505 [place] [address] Shani Thompson 505 [place] [address] documented as of this encounter Goals Goal [...] hyperglycemia, without long-term current use of insulin (HCC) documented in this encounter Additional Health Concerns Assessment Noted Time PHQ-9 Depression Total Score: 0 09/10/19 24 9:01 AM EDT documented as of this encounter Care Teams Chief Technologist Relationship Specialty Start Date End Date Cinthya Ray MD [address] [place] [address] PCP - General Family Medicine 10/23/11 Mayito Acuña, PharmD 230 [place] [address] Pharmacist Internal Medicine 03/07/23 04/22/24 documented as of this encounter
--- OUTSIDE RECORDS SUMMARY | 2024-12-17 14:45 | XMS_ITS | Encounter Summary ---
Author Organization [facility] [employer] Address 75 [facility] 7 [place] [address] Care Team Providers Care Upholstery Repairer Name Role Phone Cinthya Ray MD Primary Care Provider [phone] Encounter Details Date Type Department Care Team ([facility] st Contact Info) Description 06/09/2024 Orders Only [facility] MEDICINE [address] [place], [place] [phone] Abigail Darling CNM 230 [place] [address] Social History Tobacco Use Types Packs/Day Years [...] Description 01/04/2025 3:00 PM EST Office Visit [facility] ADULT DENTAL 505 [place] [address] Shani Thompson 505 [place] [address] documented as of this encounter Goals Goal [...] documented as of this encounter Care Teams Upholstery Repairer Relationship Specialty Start Date End Date Cinthya Ray MD 230 [place] [address] PCP - General Family Medicine 10/23/11 documented as of this encounter
--- OUTSIDE RECORDS SUMMARY | 2024-12-17 14:45 | XMS_ITS | Encounter Summary ---
Author Organization [employer] Address [address] [place] [address] 7 [place] [address] Care Team Providers Care Transportation Planner Name Role Phone Cinthya Ray MD Primary Care Provider [phone] Mayito Acuña PharmD Unavailable [phone] Reason for Visit * Reason Onset Date Comments Med Refill 08/06/2023 Encounter Details Date Type Department Care Team (Late st Contact Info) Description 08/06/2023 Refill [facility] MEDICINE [address] [place], [place] [phone] Cinthya Ray MD 230 [place], [place] [phone] Social History Tobacco Use Types Packs/Day Years [...] Description 01/04/2025 3:00 PM EST Office Visit [facility] ADULT DENTAL 505 [place] [address] Shani Thompson 505 [place] [address] documented as of this encounter Goals Goal [...] as of this encounter Care Teams Transportation Planner Relationship Specialty Start Date End Date Cinthya Ray MD [address] [place] [address] PCP - General Family Medicine 10/23/11 Mayito Acuña PharmD [address] [place] [address] Pharmacist Internal Medicine 03/07/23 04/22/24 documented as of this encounter
--- OUTSIDE RECORDS SUMMARY | 2024-12-17 14:45 | XMS_ITS | Encounter Summary ---
Author Organization [employer] Address 75 [facility] 7 [place] [address] Care Team Providers Care Social Worker Health Services Name Role Phone Cinthya Ray MD Primary Care Provider [phone] Reason for Visit * Reason Onset Date Comments Med Refill 06/18/2024 Encounter Details Date Type Department Care Team (Late st Contact Info) Description 06/18/2024 Refill [facility] 505 [place] [address] Cinthya Ray MD 230 [place] [address] Injury of head, initial encounter Social History [...] 01/04/2025 3:00 PM EST Office Visit [facility] AD[facility]AL 505 [place], [place] [phone] Thompson Mcleod 505 [place] [address] documented as of this encounter Goals Goal [...] documented as of this encounter Care Teams Social Worker Health Services Relationship Specialty Start Date End Date Cinthya Ray MD [address] [place] [address] PCP - General Family Medicine 10/23/11 documented as of this encounter
--- OUTSIDE RECORDS SUMMARY | 2024-12-17 14:45 | XMS_ITS | Encounter Summary ---
Author Organization [employer] Address [address] [place] [address] [address], [place] [address] Care Team Providers Care Physician General Internal Medicine Name Role Phone Cinthya Ray MD Primary Care Provider [phone] Mayito Acuña PharmD Unavailable [phone] Reason for Referral * Consultation (Routine) - Closed Specialty Diagnoses / Procedures Referred By Ramya waller Referred To Contact Orthopaedic Surgery Diagnoses Chronic left shoulder pain Cinthya Ray MD [address] [place] [address] Phone: tel: fax: [facility] [address] [place] [address] Phone: tel: Referral ID Status Reason Start Date Expiration Date V isits Requested Visits Authorized [id number] Closed Specialty Services Required 02/05/2024 02/04/2025 6 6 Encounter Details Date Type Department Care Team (Late st Contact Info) Description 02/05/2024 Orders Only [facility] MEDICINE [address] [place] [address] Cinthya Ray MD [address] [place] [address] [phone] Chronic left shoulder pain (Primary Dx) Social [...] Description 01/04/2025 3:00 PM EST Office Visit [facility]ULT [facility]AL 505 [place] [address] Thompson [facility]cleod 505 [place] [address] Scheduled Referrals Name Type Priority Associated Diagnoses [...] as of this encounter Care Teams Physician General Internal Medicine Relationship Specialty Start Date End Date Cinthya Ray MD [address] [place] [address] PCP - General Family Medicine 10/23/11 Mayito Acuña PharmD [address] [place] [address] Pharmacist Internal Medicine 03/07/23 04/22/24 documented as of this encounter
--- OUTSIDE RECORDS SUMMARY | 2024-12-17 14:45 | XMS_ITS | Encounter Summary ---
Author Organization [employer] Address [address] [place] [address] Care Team Providers Care Panelboard Assembler Name Role Phone Cinthya Ray MD Primary Care Provider [phone] Reason for Referral * Consultation (Routine) - Closed Specialty Diagnoses / Procedures Referred By Contac t Referred To Contact Cardiology Diagnoses Hypotension, unspecified hypotension type Cinthya Ray MD [address] [place] [address] Phone: tel: fax: [facility] Referral ID Status Reason Start Date Expiration Date V isits Requested Visits Authorized [id number] Closed Specialty Services Required 07/09/2024 07/09/2025 6 6 Encounter Details Date Type Department Care Team (Late st Contact Info) Description 07/09/2024 Orders Only [facility] MEDICINE 230 [place], [place] [phone] Cinthya Ray MD [address] [place], [place] [phone] Hypotension, unspecified hypotension type (Primary Dx) Social [...] 3:00 PM EST Office Visit [facility] ADULT DENTAL 505 [place] [address] Thompson [facility]cleod [address] [place] [address] Scheduled Referrals Name Type Priority Associated Diagnoses [...] documented as of this encounter Care Teams Panelboard Assembler Relationship Specialty Start Date End Date Cinthya Ray MD [address] [place] [address] PCP - General Family Medicine 10/23/11 documented as of this encounter
--- OUTSIDE RECORDS SUMMARY | 2024-12-17 14:45 | XMS_ITS | Encounter Summary ---
Author Organization [employer] Address 75 [facility] 7t [place] [address] Care Team Providers Care Healthcare Administration Intern Name Role Phone Cinthya Ray MD Primary Care Provider [phone] Mayito Acuña PharmD Unavailable [phone] Encounter Details Date Type Department Care Team (Late st Contact Info) Description 06/13/2022 Orders Only [facility] [address] [place] [address] Jerrica Girard FNP Social History Tobacco Use [...] 01/04/2025 3:00 PM EST Office Visit [facility] ADULT D[facility] [address] [place] [address] Thompson Mcleod 505 [place], [place] [phone] documented as of this encounter Visit Diagnoses Not on filedocumented in this encounter Care Teams Healthcare Administration Intern Relationship Specialty Start Date End Date Cinthya Ray MD [address] [place] [address] PCP - General Family Medicine 10/23/11 Mayito Acuña, Citlali [address] [place], [place] [phone] Pharmacist Internal Medicine 03/07/23 04/22/24 documented as of this encounter
--- OUTSIDE RECORDS SUMMARY | 2024-12-17 14:45 | XMS_ITS | Encounter Summary ---
Author Organization [employer] Address [address] [place] [address] Care Team Providers Care Molding Line Operator Name Role Phone Cinthya Ray MD Primary Care Provider [phone] Mayito Acuña PharmD Unavailable [phone] Encounter Details Date Type Department Care Team (Late st Contact Info) Description 02/26/2022 Abstract [facility] MEDICINE [address] [place] [address] Cinthya Ray MD [address] [place] [address] Social History Tobacco Use Types Packs/Day Years [...] Description 01/04/2025 3:00 PM EST Office Visit [facility] AD[facility] 505 [place], [place] [phone] Thompson Mcleod 505 [place], [place] [phone] documented as of this encounter Visit Diagnoses Not on filedocumented in this encounter Care Teams Molding Line Operator Relationship Specialty Start Date End Date Cinthya Ray MD [address] [place] [address] PCP - General Family Medicine 10/23/11 Mayito Acuña, Citlali [address] [place] [address] Pharmacist Internal Medicine 03/07/23 04/22/24 documented as of this encounter
--- OUTSIDE RECORDS SUMMARY | 2024-12-17 14:45 | XMS_ITS | Clinical Summary ---
Author Organization [employer] Address [address] [place] [address] 7 [place] [address] Care Team Providers Care Didactic Instructor Name Role Phone Cinthya Ray MD Primary Care Provider [phone] Allergies No known active allergies Medications * This document contains information received from the source organization and may not represent a complete record from that organization. TRUEplus Lancets 33G miscIndications:T ype 2 diabetes mellitus with hyperglycemia (HCC) TEST BLOOD SUGAR FOUR TIMES DAILY 100 [...] MILD PAIN 90 tablet 09/22/19 24 Active Glucose 2 g chewable tabletIndications :Type 2 diabetes mellitus with hyperglycemia, with long-term current use of insulin (HCC) Chew 2 g Once per day. To [...] day. 90 tablet 3 01/31/20 24 Active Continuous Glucose Enterprise Systems Administrator (FreeStyle Audrey 3 [place]) deviceIndications :Type 2 diabetes mellitus with hyperglycemia, with long-term current use of insulin (HCC) 1 each Once per day. Use as directed for CGM 1 each 04/24/19 25 Active Continuous Glucose Sensor (FreeStyle Audrey 3 Plus Sensor) miscIndications:T ype 2 diabetes mellitus with hyperglycemia, with long-term current use of insulin (HCC) 1 each every 15 days. Apply 1 every 15 days as directed for CGM 2 each 04/24/19 25 Active insulin degludec (Tresiba FlexTouch) 100 UNIT/ML injectionIndicati ons:Type 2 diabetes mellitus with hyperglycemia, without long-term current use of insulin ([facility]) INJECT 35 UNITS SUBCUTANEOUSLY ONCE EVERY DAY, may increase by 2 units every 72 hours for fasting blood sugar above 130. MAX DAILY DOSE 45 UNITS PER DAY PATIENT CAN INJECT. 45 mL 3 04/28/19 25 Active insulin pen needle (BD Pen Needle Rowena 2nd Gen) 32G x 4 mm misc USE WITH INSULIN ONCE A DAY 100 each 04/28/19 25 Active Alcohol Swabs (Alcohol Prep) 70 % padsIndications:T ype 2 diabetes mellitus with hyperglycemia (HCC) Check blood sugar 4 times daily or as needed 100 each 06/19/19 25 Active SUMAtriptan (Imitrex) 25 MG tabletIndications :Injury of head, initial encounter TAKE 1 TAB ORALLY AFTER MIGRAINE ONSET MAY REPEAT AFTER 2HRS IF HEADACHE RETURNS,MAX 200MG IN 24HRS 9 tablet 06/19/19 25 Active Continuous Glucose Sensor (FreeStyle Audrey 2 Sensor) misc Scan at least every 8 hours. Change sensor every 14 days. 2 each 1 07/21/19 25 Active metFORMIN XR (Glucophage-XR) 500 MG 24 hr tablet TAKE 2 TABLETS BY MOUTH TWICE DAILY WITH BREAKFAST AND WITH DINNER, DO NOT BREAK, CRUSH, DISSOLVE OR CHEW 360 tablet 1 09/16/19 25 Active fluconazole (Diflucan) 150 MG tabletIndications :Candidiasis Take 1 tab po once, repeat on day 3 2 tablet 09/24/19 25 Active clotrimazole (Lotrimin) 1 % vaginal creamIndications: Vulvovaginal Candidiasis Insert one applicator per vagina at bedtime for 7 nights 45 g 09/24/19 25 Active insulin aspart FlexPen (NovoLOG) 100 UNIT/ML pen INJECT 5 UNITS (0.05 ML) SUBCUTANEOUSLY 3 TIMES A DAY WITH BREAKFAST, LUNCH AND DINNER 08/25/19 25 Active Mounjaro 2.5 MG/0.5ML solution auto-injector INJECT 1 PEN (2.5 MG) SUBCUTANEOUSLY ONCE EVERY WEEK FOR 4 WEEKS 09/10/19 25 Active lamoTRIgine (LaMICtal) 25 MG tablet PLEASE SEE ATTACHED FOR DETAILED DIRECTIONS 09/03/19 25 Active loratadine (Claritin) 10 MG tablet TAKE 1 TABLET BY MOUTH EVERY DAY 90 tablet 10/13/19 25 Active Baqsimi Two Pack 3 MG/DOSE nasal powder SPRAY 3 MG INTRANASALLY ONCE 05/01/19 25 Active insulin lispro (HumaLOG) 100 UNIT/ML injection INJECT 6 UNITS (0.06 ML) SUBCUTANEOUSLY 2 TIMES A DAY FOR 30 DAYS BEFORE BREAKFAST AND SUPPER 07/23/19 25 Active lamoTRIgine (LaMICtal) 100 MG tablet PLEASE SEE ATTACHED FOR DETAILED DIRECTIONS 10/01/19 25 Active Ozempic, 1 MG/DOSE, 4 MG/3ML solution pen-injector 1 MG (0.75 ML) SUBCUTANEOUSLY EVERY WEEK FOR 28 DAYS 08/17/19 25 Active diphenhydrAMINE (BENADryl) 25 MG tabletIndications :Chronic migraine without aura with status migrainosus, not intractable Take 2 tablets (50 mg) by mouth if needed each day (headache). Take with Zofran and Toradol for migraine cocktail 30 tablet 10/10/19 25 Active ketorolac (Toradol) 10 MG tabletIndications :Chronic migraine without aura with status migrainosus, not intractable TAKE 1 TABLET BY MOUTH EVERY 8 HOURS IF NEEDED FOR MODERATE PAIN FOR UP TO 5 DAYS. TAKE ONE WITH BENADRYL AND ZOFRAN FOR MIGRAINE PROPHYLAXIS 15 tablet 10/13/19 25 Active Active Problems Problem Noted Date Diagnosed Date Severe episode of recurrent major depressive disorder, without psychotic features ([facility]) 10/09/2024 Hypotension 05/04/2024 Assessment & Plan (05/04/2024 [...] (05/04/2024 4:55 AM EDT): - following with [facility] - Dx impingement syndrome - completed [...] both her parents. She had services with [facility] for psychiatry and individual therapy, but lost [...] Plan (11/30/2023 1:26 PM EDT): -Following with [facility], last seen on -06/30/23 EGD Sen esophagus with mild chronic active inflammation, stomach mild chronic inactive inflammation, normal duodenum. -Repeat EGD in 2 years -Continue pantoprazole Assessment & Plan (09/09/2023 6:00 AM EDT): -Following with [facility], last seen on -06/30/23 EGD Sen [...] considering a bariatric surgery and went to [facility] wt management clinic. She restarted going to [facility] Wt management clinic. - She had worked with our diabetes education nurse, Ene Arias from Nov to Dec 2021. - Graduated from [facility] [employer]. - Eye exam: 01/28/24. [facility]. Nonregenerative diabetic retinopathy, bilateral, mild. [...] considering a bariatric surgery and went to [facility] wt management clinic. She restarted going to [facility] Wt management clinic. - She had worked with our diabetes education nurse, Ene Arias from Nov to Dec 2021. - Currently showing good attendance to [facility]; appreciated her effort - Eye exam: 01/24/23 [facility]. No diabetic retinopathy - Comprehensive [...] considering a bariatric surgery and went to [facility] management clinic - She had worked with our diabetes education nurse, Ene Arias from Nov to Dec 2021. - Currently showing good attendance to [facility]; appreciated her effort - Eye exam: 01/24/23 [facility]. No diabetic retinopathy - Comprehensive [...] considering a bariatric surgery and went to [facility] wt management clinic - She had worked with our diabetes education nurse, Ene Arias from Nov to Dec 2021. - Currently showing good attendance to [facility]; appreciated her effort - Eye exam: 01/24/23 [facility]. No diabetic retinopathy - Comprehensive [...] considering a bariatric surgery and went to [facility] management clinic - She had worked with our diabetes education nurse, Ene Arias from Nov to Dec 2021. - Currently showing good attendance to [facility]; appreciated her effort - Eye exam: 01/24/23 [facility]. No diabetic retinopathy - Comprehensive [...] considering a bariatric surgery and went to [facility] management clinic - She had worked with our diabetes education nurse, Ene Arias from Nov to Dec 2021. - Currently showing good attendance to [facility]; appreciated her effort - Eye exam: 01/24/23 [facility]. No diabetic retinopathy - Comprehensive [...] considering a bariatric surgery and went to [facility] wt management clinic - She had worked with our diabetes education nurse, Ene Arias from Nov to Dec 2021. - Refer to [facility] - Eye exam: 01/24/23 [facility]. No diabetic retinopathy - Comprehensive [...] considering a bariatric surgery and went to [facility] wt management clinic - She had worked with our diabetes education nurse, Ene Arias from Nov to Dec 2021. - Eye exam: 01/21/22 [facility]. No diabetic retinopathy - Comprehensive [...] considering a bariatric surgery and went to [facility] wt management clinic - She had worked with our diabetes education nurse, Ene Arias from Nov to Dec 2021. - Eye exam: 01/21/22 [facility]. No diabetic retinopathy - Comprehensive [...] considering a bariatric surgery and went to [facility] wt management clinic - She had worked with our diabetes education nurse, Ene Arias from Nov to Dec 2021. - Eye exam: 01/21/22 [facility]. No diabetic retinopathy - Comprehensive [...] considering a bariatric surgery and went to [facility] wt management clinic - She had worked with our diabetes education nurse, Ene Arias from Nov to Dec 2021. - Eye exam: 01/21/22 [facility]. No diabetic retinopathy - Comprehensive [...] considering a bariatric surgery and went to [facility] wt management clinic - She had worked with our diabetes education nurse, Ene Arias from Nov to Dec 2021. - Eye exam: 01/21/22 [facility]. No diabetic retinopathy - Comprehensive [...] considering a bariatric surgery and went to [facility] wt management clinic - She had worked with our diabetes education nurse, Ene Arias from Nov to Dec 2021. - Eye exam: 01/21/22 [facility]. No diabetic retinopathy - Comprehensive [...] 2021. - completed Partial Hospitalization Program at [facility] 11/09/21 - 11/23/21 - current medication: none -Previous medication treatment Hx: venlafaxine was self-discontinued; trazodone was prescribed by psychiatrist while she was attending [facility], but pt self-discontinued due to ineffectivenss; sertraline 50 mg daily, patient self-discontinued. - previously seeing [facility] clinician and waiting for psychiatrist, patient has not been engaged in behavioral health therapy currently. - contacted by [facility] service and was referred to off-site service - patient has developed healthy coping skills Assessment & Plan (11/30/2023 1:22 PM EDT): - MDD vs. bipolar - severe exacerbation of Depression w/ SI in October 2021. - completed Partial Hospitalization Program at [facility] 11/09/21 - 11/23/21 - current medication: none -Previous medication treatment Hx: venlafaxine was self-discontinued; trazodone was prescribed by psychiatrist while she was attending [facility], but pt self-discontinued due to ineffectivenss; sertraline 50 mg daily, patient self-discontinued. - previously seeing [facility] clinician and waiting for psychiatrist, patient has not been engaged in behavioral health therapy currently. - contacted by [facility] service and was referred to off-site service - patient has developed healthy coping skills Assessment & Plan (03/07/2023 5:55 AM EST): - MDD vs. bipolar - severe exacerbation of Depression w/ SI in October 2021. - completed Partial Hospitalization Program at [facility] 11/09/21 - 11/23/21 - current medication: none -Previous medication treatment Hx: venlafaxine was self-discontinued; trazodone was prescribed by psychiatrist while she was attending [facility], but pt self-discontinued due to ineffectivenss; sertraline 50 mg daily, patient self-discontinued. - previously seeing [facility] clinician and waiting for psychiatrist, patient has not been engaged in behavioral health therapy currently. - will consider referring back Assessment & Plan (11/12/2022 4:17 PM EDT): - severe exacerbation of Depression w/ SI in October 2021. - completed Partial Hospitalization Program at [facility] 11/09/21 - 11/23/21 - Medication: Sertraline [...] 2021. - completed Partial Hospitalization Program at [facility] 11/09/21 - 11/23/21 - Medication: Sertraline 50 mg daily -Previous medication treatment Hx: venlafaxine was self-discontinued; trazodone was prescribed by psychiatrist while she was attending [facility], but pt self-discontinued due to ineffectivenss - still on waiting list for outpatient appt with psychiatrist and therapist. - Able to contract her safety today - Continue BHS with [facility] Assessment & Plan (06/24/2022 11:25 AM EDT): - severe exacerbation of Depression w/ SI in October 2021. - completed Partial Hospitalization Program at [facility] 11/09/21 - 11/23/21 - Medication treatment Hx --venlafaxine was self-discontinued --trazodone was prescribed by psychiatrist while she was attending [facility], but pt self-discontinued due to ineffectivenss - still on waiting list for outpatient appt with psychiatrist and therapist. - Able to contract her safety today - Continue BHS with [facility] Assessment & Plan (05/21/2022 12:36 PM EDT): - severe exacerbation of Depression w/ SI in October 2021. - completed Partial Hospitalization Program at [facility] 11/09/21 - 11/23/21 - Medication treatment Hx --venlafaxine was self-discontinued --trazodone was prescribed by psychiatrist while she was attending [facility], but pt self-discontinued due to ineffectivenss - still on waiting list for outpatient appt with psychiatrist and therapist. - Able to contract her safety today - Continue BHS with [facility] Assessment & Plan (04/04/2022 7:17 PM EST): - severe exacerbation of Depression w/ SI in October 2021. - completed Partial Hospitalization Program at [facility] 11/09/21 - 11/23/21 - Medication treatment Hx --venlafaxine was self-discontinued --trazodone was prescribed by psychiatrist while she was attending [facility], but pt self-discontinued due to ineffectivenss - still on waiting list for outpatient appt with psychiatrist and therapist. - Able to contract her safety today - Continue BHS with [facility] Assessment & Plan (02/22/2022 4:28 PM EST): - severe exacerbation of Depression w/ SI in October 2021. - completed Partial Hospitalization Program at [facility] 11/09/21 - 11/23/21 - Medication treatment Hx --venlafaxine was self-discontinued --trazodone was prescribed by psychiatrist while she was attending [facility], but pt self-discontinued due to ineffectivenss [...] - previously participated weight management program at [facility], recently started seeing them again. - goal of wieght being 171 lbs to get surgery done. - continue working on lifestyle modifications - associated comorbidity: STELLA, diabetes mellitus type 2 - continue GLP1RA - patient is restricting food intake and discussed about its harmful effect. She is on GLP1RA and is having side effects. Will try to consult with both database management specialist and surgical weight loss provider. Surgical weight loss is not indicated and patient still may need to take medications. Assessment & Plan (01/27/2024 3:27 PM EST): - previously participated weight management program at [facility], recently started seeing them again. - goal of wieght being 171 lbs to get surgery done. - continue working on lifestyle modifications - associated comorbidity: STELLA, DM2 Assessment & Plan (11/26/2023 2:16 PM EDT): - previously participated weight management program at [facility] - continue working on lifestyle modifications - associated comorbidity: STELLA, DM2 Assessment & Plan (11/18/2022 7:07 AM EDT): - previously participated weight management program at [facility] - continue working on lifestyle modifications - associated comorbidity: STELLA, DM2 Assessment & Plan (04/04/2022 7:14 PM EST): - previously participated weight management program at [facility] - continue working on lifestyle modifications - associated comorbidity: STELLA, DM2 Assessment & Plan (02/22/2022 4:37 PM EST): - previously participated weight management program at [facility] - continue working on lifestyle modifications - [...] Encounters Date Type Department Care Team Description 11/23/2024 Refill [facility] [address] [place] [address] Lexis Spann MD 11/19/2024 Orders Only GENERIC EXTERNAL DATA DEPARTMENT Provider, Generic External Data 11/17/2024 Telephone [facility] [address] [place] [phone] Rianna Solis RN NTTS 10/09/2024 9:20 AM EDT Office Visit [facility] [address] [place] [address] Megan Ortez MD Chronic migraine without aura with status migrainosus, not intractable (Primary Dx); Severe episode of recurrent major depressive disorder, without psychotic features (CMS/HCC); Mild intermittent asthma without complication 10/09/2024 Telephone [facility] [address] [place] [address] Estefany Chang MD 10/09/2024 Refill [facility] [address] [place] [address] Megan Ortez MD Chronic migraine without aura with status migrainosus, not intractable 10/09/2024 Travel 10/09/2024 Refill [facility] [address] [place] [phone] Cinthya Ray MD 10/08/[address] [address] Cinthya Ray MD 10/07/[address] [address] Hilda Diaz RN NTTS Triage 10/01/2024 8:00 AM EDT Office Visit [facility] [address] [place] [address] Demario Bocanegra Dental calculus (Primary Dx) 09/30/2024 Travel 09/27/2024 Orders Only GENERIC EXTERNAL DATA DEPARTMENT Provider, Generic External Data 09/23/2024 9:20 AM EDT Office Visit [facility] [address] [address] Sonali Tellez MD Vaginal itching (Primary Dx); Candidiasis 09/23/2024 Travel 09/23/2024 Telephone [facility] [address] [place] [phone] Cinthya Ray MD Nurse Triage from Last [...] 07/21/2024 2:31 PM EDT Plan of Treatment Upcoming Encounters Date Type Department Care Team (Late st Contact Info) Description 01/04/2025 3:00 PM EST Office Visit [facility] [address] [facility] [place] [address] [facility] [address] [place] [address] Health Maintenance Due Date Last Done Comments [...] Associated Diagnosis Comments GLUCOSE, WHOLE BLOOD Routine 11/19/2024 2:08 PM EDT COMPREHENSIVE PERIODONTAL EVALUATION - NEW OR ESTABLISHED [...] Routine 09/23/2024 9:30 AM EDT Vaginal itching POCT GLYCOSYLATED HEMOGLOBIN [...] with long-term current use of insulin (CMS/HCC) [facility] DIABETES EYE EXAM Routine 01/24/2023 INTRAORAL - COMPLETE SERIES OF RADIOGRAPHIC IMAGES Routine 08/08/2022 4:00 PM EDT Encounter for dental examination COMPREHENSIVE ORAL EVALUATION - NEW OR ESTABLISHED PATIENT Routine 08/08/2022 4:00 PM EDT THINPREP IMAGING SYSTEM PAP Routine 07/24/2021 4:01 PM EDT from Last 3 Months or Most Recently Relevant to Health Maintenance Results * (ABNORMAL) Glucose, Whole Blood (11/19/2024 2:08 PM EDT) Only the most recent of2 resultswithin the time period is included. Glucose, Whole Blood 150(H) 60 - 115 mg/dL [facility] Comment:METER #: [id number] Testing performed in the Endocrinology Department [address], [address], [facility]. 11/19/2024 2:08 PM EDT 11/19/2024 2:11 PM EDT us Generic External Data Provider LAB BLOOD ORDERAB LES Final Result Performing Organization Address City/State/[facility] Co de Phone Number [facility] [address] [place] [phone] * POCT urinalysis dipstick manually resulted (09/23/2024 9:30 AM EDT) Color, UA Yellow Clarity, UA Clear Glucose, [...] DIT ORDERABLES Final Result * (ABNORMAL) POCT glycosylated hemoglobin (Hgb A1c) [...] 11:30 AM EDT) Triglycerides 145 <150 mg/dL [facility] Comment:Desirable Triglyceri de: less than 150 mg/dLBorderline High Triglyceride 150-199 mg/dLHigh Triglyceride: 200-499 mg/dLVery High Triglyceride: greater than or equal to 5OO mg/dL Cholesterol 152 <200 mg/dL [facility] Comment:Desirable Cholestero l: less than 200 mg/dLBorderline High Cholesterol: 200-239 mg/dLHigh Cholesterol: greater than 239 mg/dL LDL Cholesterol Calculated 91 <100 mg/dL [facility] Comment:Desirable LDL: less than 100 mg/dLNear Optimal/Above Optimal LDL: 110- 129 mg/dLBorderline High LDL: 130-159 mg/dLHigh LDL: 160-189 mg/dLVery High LDL: greater than or equal to 190 mg/dL HDL Cholesterol 32(L) >40 mg/dL [facility] Comment:Desirable HDL: great er than 40 mg/dL Note: This HDL assay may give artificially low results in patients with liver disease. Blood 11/26/2023 11:3 0 AM EDT 11/26/2023 1:20 PM EDT Cinthya Ray MD LAB BLOOD ORDERABLES Final Resul t [facility] [address] [place] [address] [phone] * Hepatitis C Antibody with Reflex to HCV, RNA, Quantitative, Real-Time PCR (11/26/2023 11:30 AM EDT) Hepatitis C Antibody Nonreactive Nonreactive [facility] Comment:Antibodies to HCV no t detected; does not exclude early acuteHCV infection. Blood Venous blood specimen / Unknown 11/26/2023 11:30 AM EDT 11/26/2023 1:20 PM EDT Cinthya Ray MD LAB BLOOD ORDERABLES Final Resul t Performing Organization Address [facility]/ZIP Co de Phone Number [facility] [address] [place] [address] [phone] * HIV-1/2 Antigen and Antibodies, Fourth Generation, with Reflexes (11/26/2023 11:30 AM EDT) HIV AB/AG Nonreactive Nonreactive [facility] Comment:HIV-1 p24 Ag and/or HIV-1/HIV-2 Ab not detected.A test result that is nonreactive does not exclude thepossibility of exposure to or infection with HIV-1 and/orHIV-2. Nonreactive results in this assay for individualswith prior exposure to HIV-1 and/or HIV-2 may be due toantigen and antibody levels that are below the limit ofdetection of this assay.The [employer] HIV Ag/Ab Combo assay result andsupplemental assay results should be interpreted inconjunction with the patient's clinical presentation,history and other laboratory results. If the results areinconsistent with clinical evidence, additional testing issuggested to confirm the result. Blood Venous blood specimen / Unknown 11/26/2023 11:30 AM EDT 11/26/2023 1:20 PM EDT us Cinthya Ray MD LAB BLOOD ORDERABLES Final Resul t Performing Organization Address City/[facility]/ZIP Co de Phone Number [facility] [address] [place] [address] [phone] * Albumin, Random Urine W/Creatinine (11/26/2023 12:00 AM EDT) Creatinine, Urine 238.24 mg/dL [facility] Microalbumin Urine 23.0 mg/L [facility] Microalbum Creatinine Ratio Ur 9.6 <30 ug/mg cr [facility] Comment:Albumin/Creatinine R atio Reference Ranges: Normal: < 30 ug/mg creatinine Microalbuminuria: 30 - 300 ug/mg creatinineClinical Albuminuria: > 300 ug/mg creatinine Urine 11/26/2023 11/26/2023 us Cinthya Ray MD LAB URINE ORDERABLES Final Resul t [facility] [address] [place] [phone] * Hm Diabetes Eye Exam (01/24/2023) Eye Exam Normal Normal Comment:[facility] 01/24/2023 us Historical Provider HEALTH MAINTENANCE [...] has been evaluated with computer assisted technology. [employer] LAB SYSTEM Production Designer : SEE COMMENT [facility] Comment: MXD, CT (ASCP) CT screening location: [address] [address] Interpretation/R esult: Negative for intraepithelial lesion or malignancy. [facility] LMP: NONE [facility] Prev. BX: NONE [facility] Prev. PAP: NONE [facility]IV[facility] SOURCE: None given [facility] Statement Of Adequacy: SEE COMMENT [facility] Comment: Satisfactory for evaluation. Endocervical/transformation zone component present. Age and/or menstrual status not provided 07/24/2021 4:01 PM EDT us Cinthya Ray MD LAB PATHOLOGY ORDERABLES Final R esult [facility] [address] from Last 3 Months or Most Recently Relevant to Health Maintenance Insurance [facility] C3 DENTAL-[facility] MEDICAID STAND ADULT Care Teams Didactic Instructor Relationship Specialty Start Date End Date Cinthya Ray MD [address] [place] [address] PCP - General Family Medicine 10/23/11
--- OUTSIDE RECORDS SUMMARY | 2024-12-17 14:45 | XMS_ITS | Encounter Summary ---
Author Organization [employer] Address [address] [place] [address] 7[place] [address] Care Team Providers Care Industrial Automation Engineer Name Role Phone Cinthya Ray MD Primary Care Provider [phone] Reason for Visit * Reason Comments Med Refill Encounter Details Date Type Department Care Team ([facility] st Contact Info) Description 04/26/2024 Refill [facility] MEDICINE 230 [place], [place] [phone] Cinthya Ray MD 230 [place] [address] Social History Tobacco Use Types Packs/Day Years [...] Description 01/04/2025 3:00 PM EST Office Visit [facility] ADULT DENTAL 505 [place] [address] Thompson Mcleod 505 [place] [address] documented as of this encounter Goals Goal [...] documented as of this encounter Care Teams Industrial Automation Engineer Relationship Specialty Start Date End Date Cinthya Ray MD 230 [place] [address] PCP - General Family Medicine 10/23/11 documented as of this encounter
--- OUTSIDE RECORDS SUMMARY | 2024-12-17 14:45 | XMS_ITS | Encounter Summary ---
Author Organization [employer] Address [address] [place] [address] [place] [address] Care Team Providers Care Package Reinspector Name Role Phone Cinthya Ray MD Primary Care Provider [phone] Mayito Acuña PharmD Unavailable [phone] Reason for Visit * Reason Onset Date Comments triage 04/10/2022 Encounter Details Date Type Department Care Team (Late st Contact Info) Description 04/10/2022 Telephone [facility] MEDICINE 230 [place], [place] [phone] Cinthya Ray MD 230 [place], [place] [phone] triage Social History Tobacco Use Types Packs/Day [...] Description 01/04/2025 3:00 PM EST Office Visit [facility] ADULT DENTAL 505 [place] [address] Thompson Mcleod 505 [place] [address] documented as of this encounter Visit Diagnoses Not on filedocumented in this encounter Care Teams Package Reinspector Relationship Specialty Start Date End Date Cinthya Ray MD 230 [place] [address] PCP - General Family Medicine 10/23/11 Mayito Acuña, DyanD 230 [place] [address] Pharmacist Internal Medicine 03/07/23 04/22/24 documented as of this encounter
--- OUTSIDE RECORDS SUMMARY | 2024-12-17 14:45 | XMS_ITS | Encounter Summary ---
Author Organization [employer] Address 75 [facility] 7 [place] [address] Care Team Providers Care Smoking Tobacco Cutter Operator Name Role Phone Cinthya Ray MD Primary Care Provider [phone] Mayito Acuña PharmD Unavailable [phone] Reason for Visit * Reason Onset Date Comments Med Refill 03/12/2024 Encounter Details Date Type Department Care Team (Late st Contact Info) Description 03/12/2024 Refill [facility] CHC MED & PEDS [address] [place], [place] [phone] Cinthya Ray MD 230 [place], [place] [phone] Type 2 diabetes mellitus with hyperglycemia, without long-term current use of insulin ([facility]) Social [...] Visit [facility] ADULT DENTAL 505 [place] [address] Thompson Mcleod 505 [place] [address] documented as of this encounter Goals Goal [...] as of this encounter Care Teams Smoking Tobacco Cutter Operator Relationship Specialty Start Date End Date Cinthya Ray MD 230 [place], [place] [phone] PCP - General Family Medicine 10/23/11 Mayito Acuña, Citlali 230 [place] [address] Pharmacist Internal Medicine 03/07/23 04/22/24 documented as of this encounter
--- OUTSIDE RECORDS SUMMARY | 2024-12-17 14:45 | XMS_ITS | Encounter Summary ---
Author Organization [employer] Address [address] [place] [address] 7[place] [address] Care Team Providers Care Roto Mixer Operator Name Role Phone Cinthya Ray MD Primary Care Provider [phone] Mayito Acuña PharmD Unavailable [phone] Reason for Visit * Reason Onset Date Comments Medication Question 06/14/2022 Encounter Details Date Type Department Care Team (Late st Contact Info) Description 06/14/2022 Telephone [facility] MEDICINE 230 [place], [place] [phone] Cinthya Ray MD 230 [place], [place] [phone] Medication Question Social History Tobacco Use Types [...] Description 01/04/2025 3:00 PM EST Office Visit [facility] ADULT DENTAL 505 [place] [address] Shani, Thompson 505 [place] [address] documented as of this encounter Visit Diagnoses Not on filedocumented in this encounter Care Teams Roto Mixer Operator Relationship Specialty Start Date End Date Cinthya Ray MD 230 [place] [address] PCP - General Family Medicine 10/23/11 Mayito Acuña, DyanD 230 [place] [address] Pharmacist Internal Medicine 03/07/23 04/22/24 documented as of this encounter
--- OUTSIDE RECORDS SUMMARY | 2024-12-17 14:45 | XMS_ITS | Encounter Summary ---
Author Organization [employer] Address [address] [place] [address] 7[place] [address] Care Team Providers Care Project Inspector Name Role Phone Cinthya Ray MD Primary Care Provider [phone] Mayito Acuña PharmD Unavailable [phone] Reason for Referral * Consultation (Urgent) - Closed Specialty Diagnoses / Procedures Referred By Contac t Referred To Contact Endocrinology Diagnoses Type 2 diabetes mellitus with hyperglycemia, with long-term current use of insulin (HCC) Cinthya Ray MD 230 [place] [address] Phone: tel: fax: [facility] Endocrinology [address] [place] [address] Phone: tel: fax: Referral ID Status Reason Start Date Expiration Date V isits Requested Visits Authorized [id number] Closed Specialty Services Required 04/19/2024 04/19/2025 12 12 Encounter Details Date Type Department Care Team (Late st Contact Info) Description 04/19/2024 Orders Only [facility] MEDICINE 230 [place] [address] Cinthya Ray MD 230 [place] [address] Type 2 diabetes mellitus with hyperglycemia, with [...] Upcoming Encounters Date Type Department Care Team ([facility] Contact Info) Description 01/04/2025 3:00 PM EST Office Visit [facility] ADULT DENTAL 505 [place] [address] Thompson Mcleod 505 [place] [address] Pending Results Name Type Priority Associated Diagnoses Date /Time Referral to Endocrinology Outpatient Referral Urgent Type 2 diabetes mellitus with hyperglycemia, with long-term current use of insulin ([facility]) 04/30/2024 Scheduled Referrals Name Type Priority Associated Diagnoses Order Schedule Referral to Endocrinology Outpatient Referral Urgent Type 2 diabetes mellitus with hyperglycemia, with long-term current use of insulin ([facility]) Expected: 04/19/2024 (Approximate), Expires: 04/19/2025 documented as [...] hyperglycemia, with long-term current use of insulin ([facility])- Primary documented in this encounter Additional Health Concerns Assessment Noted Time PHQ-9 Depression Total Score: 11 024 9:48 AM EDT documented as of this encounter Care Teams Project Inspector Relationship Specialty Start Date End Date Cinthya Ray MD 230 [place] [address] PCP - General Family Medicine 10/23/11 Mayito Acuña PharmD 230 [place] [address] Pharmacist Internal Medicine 03/07/23 04/22/24 documented as of this encounter
--- OUTSIDE RECORDS SUMMARY | 2024-12-17 14:45 | XMS_ITS | Encounter Summary ---
Author Organization [employer] Address 75 [facility] 7 [place] [address] Care Team Providers Care Carbon Sequestration Plant Manager Name Role Phone Cinthya Ray MD Primary Care Provider [phone] Mayito Acuña PharmD Unavailable [phone] Encounter Details Date Type Department Care Team ([facility] st Contact Info) Description 08/05/2023 Orders Only [facility] CHC MED & PEDS [address] [place] [address] Izzy Olvera FNP 230 [place] [address] Social History Tobacco Use Types Packs/Day Years [...] 3:00 PM EST Office Visit [facility] ADULT DENTAL 505 [place] [address] Thompson Mcleod 505 [place] [address] documented as of this encounter Goals Goal [...] documented as of this encounter Care Teams Carbon Sequestration Plant Manager Relationship Specialty Start Date End Date Cinthya Ray MD 230 [place] [address] PCP - General Family Medicine 10/23/11 Mayito Acuña PharmD [address] [place] [address] [phone] Pharmacist Internal Medicine 03/07/23 04/22/24 documented as of this encounter
--- OUTSIDE RECORDS SUMMARY | 2024-12-17 14:45 | XMS_ITS | Encounter Summary ---
Author Organization [employer] Address 75 [facility] 7 [place] [address] Care Team Providers Care Multicultural Internship Name Role Phone Cinthya Ray MD Primary Care Provider [phone] Mayito Acuña PharmD Unavailable [phone] Encounter Details Date Type Department Care Team (Late st Contact Info) Description 03/05/2024 Orders Only [facility] MEDICINE 230 [place], [place] [phone] Cinthya Ray MD 230 [place], [place] [phone] Type 2 diabetes mellitus with other specified complication, with long-term current use of insulin ([facility]) (Primary Dx) Social History Tobacco Use [...] 01/04/2025 3:00 PM EST Office Visit [facility] ADULT DENTAL 505 [place] [address] Thompson Mcleod 505 [place] [address] documented as of this encounter Goals Goal [...] complication, with long-term current use of insulin (HCC)- Primary documented in this encounter Additional Health Concerns Assessment Noted Time PHQ-9 Depression Total Score: 11 024 9:48 AM EDT documented as of this encounter Care Teams Multicultural Internship Relationship Specialty Start Date End Date Cinthya Ray MD 230 [place] [address] PCP - General Family Medicine 10/23/11 Mayito Acuña, DyanD 230 [place] [address] Pharmacist Internal Medicine 03/07/23 04/22/24 documented as of this encounter
--- OUTSIDE RECORDS SUMMARY | 2024-12-17 14:45 | XMS_ITS | Encounter Summary ---
Author Organization [employer] Address 75 [facility] 7 [place] [address] Care Team Providers Care Cutter Operator Asbestos Shingle Name Role Phone Cinthya Ray MD Primary Care Provider [phone] Mayito Acuña PharmD Unavailable [phone] Encounter Details Date Type Department Care Team (Late st Contact Info) Description 03/05/2023 Orders Only [facility] MEDICINE 230 [place], [place] [phone] Cinthya Ray MD 230 [place] [address] Social History Tobacco Use Types Packs/Day Years [...] Description 01/04/2025 3:00 PM EST Office Visit [facility] ADULT DENTAL 505 [place], [place] [phone] Thompson Mcleod 505 [place], [place] [phone] documented as of this encounter Goals Goal Patient Goal Type Associated Problems Recent Progress Patient-Stated? Author Blood Pressure < 140/90 Blood Pressure 100/69(2024 9:23 AM EDT) No Mayito Acuña PharmD Hemoglobin A1c < 7 Result Component 6.5( 3:35 PM EDT) No Mayito Acuña PharmD documented as of this encounter Visit Diagnoses Not on filedocumented in this encounter Care Teams Cutter Operator Asbestos Shingle Relationship Specialty Start Date End Date Cinthya Ray MD 230 [place] [address] PCP - General Family Medicine 10/23/11 Mayito Acuña PharmD 230 [place], [place] [phone] Pharmacist Internal Medicine 03/07/23 04/22/24 documented as of this encounter
--- OUTSIDE RECORDS SUMMARY | 2024-12-17 14:45 | XMS_ITS | Encounter Summary ---
Author Organization [employer] Address 75 [facility] 7 [place] [address] Care Team Providers Care Farmworkers Name Role Phone Cinthya Ray MD Primary Care Provider [phone] Reason for Visit * Reason Comments Med Refill Encounter Details Date Type Department Care Team ([facility] st Contact Info) Description 11/23/2024 Refill [facility] [address] [place] [phone] Lexis Spann MD 230 [place], [place] [phone] Social History Tobacco Use Types Packs/Day Years [...] 3:00 PM EST Office Visit [facility] ADULT DENTAL 505 [place] [address] Thompson Mcleod 505 [place] [address] documented as of this encounter Goals Goal [...] documented as of this encounter Care Teams Farmworkers Relationship Specialty Start Date End Date Cinthya Ray MD [address] [place] [address] PCP - General Family Medicine 10/23/11 documented as of this encounter
--- OUTSIDE RECORDS SUMMARY | 2024-12-17 14:46 | XMS_ITS | Encounter Summary ---
Author Organization [employer] Address 75 [facility] 7 [place] [address] Care Team Providers Care Manager Adobe Name Role Phone Cinthya Ray MD Primary Care Provider [phone] Mayito Acuña PharmD Unavailable [phone] Reason for Visit * Reason Onset Date Comments Med Refill 12/24/2023 Encounter Details Date Type Department Care Team (Late st Contact Info) Description 12/24/2023 Refill [facility] CHC MED & PEDS [address] [place], [place] [phone] Cinthya Ray MD 230 [place], [place] [phone] Type 2 diabetes mellitus with hyperglycemia, without long-term current use of insulin ([facility]) Social History Tobacco [...] Description 01/04/2025 3:00 PM EST Office Visit [facility] ADULT DENTAL 505 [place] [address] Thompson Mcleod 505 [place] [address] documented as of this encounter Goals Goal [...] as of this encounter Care Teams Manager Adobe Relationship Specialty Start Date End Date Cinthya Ray MD 230 [place], [place] [phone] PCP - General Family Medicine 10/23/11 Mayito Acuña, Citlali [address] [place] [address] Pharmacist Internal Medicine 03/07/23 04/22/24 documented as of this encounter
--- OUTSIDE RECORDS SUMMARY | 2024-12-17 14:46 | XMS_ITS | Encounter Summary ---
Author Organization [employer] Address 75 [facility] 7 [place] [address] Care Team Providers Care Collar Setter Overlock Name Role Phone Cinthya Ray MD Primary Care Provider [phone] Mayito Acuña PharmD Unavailable [phone] Reason for Visit * Reason Onset Date Comments Med Refill 11/02/2023 Encounter Details Date Type Department Care Team (Late st Contact Info) Description 11/02/2023 Refill [facility] CHC MED & PEDS [address] [place], [place] [phone] Cinthya Ray MD 230 [place], [place] [phone] Type 2 diabetes mellitus with hyperglycemia, without long-term current use of insulin ([facility]) Social History Tobacco Use Types Packs/Day [...] 01/04/2025 3:00 PM EST Office Visit [facility] ADULT DENTAL 505 [place] [address] Thompson Mcleod 505 [place] [address] documented as of this encounter Goals Goal [...] documented as of this encounter Care Teams Collar Setter Overlock Relationship Specialty Start Date End Date Cinthya aRy MD [address] [place] [address] PCP - General Family Medicine 10/23/11 Mayito Acuña, DyanD [address] [place] [address] Pharmacist Internal Medicine 03/07/23 04/22/24 documented as of this encounter
--- OUTSIDE RECORDS SUMMARY | 2024-12-17 14:46 | XMS_ITS | Encounter Summary ---
Author Organization [employer] Address 75 [facility] 7 [place] [address] Care Team Providers Care Head Automatic Sawyer Name Role Phone Cinthya Ray MD Primary Care Provider [phone] Mayito Acuña PharmD Unavailable [phone] Reason for Visit * Reason Onset Date Comments Med Refill 10/30/2023 Encounter Details Date Type Department Care Team (Late st Contact Info) Description 10/30/2023 Refill [facility] CHC MED & PEDS [address] [place], [place] [phone] Cinthya Ray MD 230 [place], [place] [phone] Type 2 diabetes mellitus with hyperglycemia, without long-term current use of insulin ([facility]) Social History Tobacco Use Types Packs/Day [...] [facility] 505 [place] [address] Thompson Mcleod 505 [place] [address] documented as of this encounter Goals Goal [...] documented as of this encounter Care Teams Head Automatic Sawyer Relationship Specialty Start Date End Date Cinthya Ray MD [address] [place] [address] PCP - General Family Medicine 10/23/11 Mayito Acuña, DyanD [address] [place] [address] Pharmacist Internal Medicine 03/07/23 04/22/24 documented as of this encounter
--- OUTSIDE RECORDS SUMMARY | 2024-12-17 14:46 | XMS_ITS | Encounter Summary ---
Author Organization [employer] Address [address] [place] [address] 7 [place] [address] Care Team Providers Care Project Hire Name Role Phone Cinthya Ray MD Primary Care Provider [phone] Mayito Acuña PharmD Unavailable [phone] Reason for Visit * Reason Onset Date Comments Med Refill 09/29/2023 Encounter Details Date Type Department Care Team (Late st Contact Info) Description 09/29/2023 Refill [facility] MEDICINE 230 [place], [place] [phone] Cinthya Ray MD 230 [place], [place] [phone] Type 2 diabetes mellitus with hyperglycemia, without long-term current use of insulin ([facility]) Social History Tobacco Use Types [...] 3:00 PM EST Office Visit [facility] ADULT DENTAL 505 [place] [address] Thompson Mcleod 505 [place] [address] documented as of this encounter Goals Goal [...] as of this encounter Care Teams Project Hire Relationship Specialty Start Date End Date Cinthya Ray MD 230 [place] [address] PCP - General Family Medicine 10/23/11 Mayito Acuña, Citlali 230 [place] [address] Pharmacist Internal Medicine 03/07/23 04/22/24 documented as of this encounter
--- OUTSIDE RECORDS SUMMARY | 2024-12-17 14:46 | XMS_ITS | Encounter Summary ---
Author Organization [employer] Address 75 [facility] 7 [place] [address] Care Team Providers Care Brand Coordinator Name Role Phone Cinthya Ray MD Primary Care Provider [phone] Mayito Acuña PharmD Unavailable [phone] Reason for Visit * Reason Onset Date Comments Med Refill 01/03/2023 Encounter Details Date Type Department Care Team (Late st Contact Info) Description 01/03/2023 Refill [facility] MEDICINE 230 [place], [place] [phone] Cinthya Ray MD 230 [place], [place] [phone] Social History Tobacco Use Types Packs/Day Years [...] 01/04/2025 3:00 PM EST Office Visit [facility] ADULT DENTAL 505 [place], [place] [phone] Thompson Mcleod 505 [place] [address] documented as of this encounter Visit Diagnoses Not on filedocumented in this encounter Care Teams Brand Coordinator Relationship Specialty Start Date End Date Cinthya Ray MD 230 [place] [address] PCP - General Family Medicine 10/23/11 Mayito Acuña, DyanD [address] [place] [address] Pharmacist Internal Medicine 03/07/23 04/22/24 documented as of this encounter
--- OUTSIDE RECORDS SUMMARY | 2024-12-17 14:46 | XMS_ITS | Encounter Summary ---
Author Organization [employer] Address 75 [facility] 7 [place] [address] Care Team Providers Care Psychodramatist Name Role Phone Cinthya Ray MD Primary Care Provider [phone] Mayito Acuña PharmD Unavailable [phone] Reason for Visit * Reason Onset Date Comments Med Refill 09/29/2023 Encounter Details Date Type Department Care Team (Late st Contact Info) Description 09/29/2023 Refill [facility] CHC MED & PEDS [address] [place], [place] [phone] Cinthya Ray MD 230 [place], [place] [phone] Type 2 diabetes mellitus with hyperglycemia, without long-term current use of insulin ([facility]) Social History Tobacco Use [...] Visit [facility] ADULT DENTAL 505 [place] [address] Thompson Mcleod 505 [place] [address] documented as of this encounter Goals Goal [...] documented as of this encounter Care Teams Psychodramatist Relationship Specialty Start Date End Date Cinthya Ray MD 230 [place] [address] PCP - General Family Medicine 10/23/11 Mayito Acuña, Citlali [address] [place] [address] Pharmacist Internal Medicine 03/07/23 04/22/24 documented as of this encounter
--- OUTSIDE RECORDS SUMMARY | 2024-12-17 14:46 | XMS_ITS | Encounter Summary ---
Author Organization [employer] Address [address] [place] [address] 7[facility] [place] [address] Care Team Providers Care Cement Railroad Car Loader Name Role Phone Cinthya Ray MD Primary Care Provider [phone] Mayito Acuña PharmD Unavailable [phone] Reason for Referral * Consultation (Routine) - Closed Specialty Diagnoses / Procedures Referred By Contcarly t Referred To Contact Pharmacy Diagnoses Type 2 diabetes mellitus with hyperglycemia, with long-term current use of insulin (HCC) Cinthya Ray MD 230 [place] [address] Phone: tel: fax: Referral ID Status Reason Start Date Expiration Date V isits Requested Visits Authorized [id number] Closed Consult and Treat 12/23/2023 12/22/2024 6 6 Encounter Details Date Type Department Care Team (Late st Contact Info) Description 12/23/2023 Orders Only [facility] MEDICINE 230 [place], [place] [phone] Cinthya Ray MD 230 [place], [place] [phone] Type 2 diabetes mellitus with hyperglycemia, with [...] Description 01/04/2025 3:00 PM EST Office Visit [facility]C ADULT DENTAL 505 [place] [address] Thompson Mcleod 505 [place] [address] Scheduled Referrals Name Type Priority Associated Diagnoses Orde r Schedule Referral to Pharmacy CDTM Outpatient Referral Routine Type 2 diabetes mellitus with hyperglycemia, with long-term current use of insulin ([facility]) Ordered: 12/23/2023 documented as of this [...] hyperglycemia, with long-term current use of insulin ([facility])- Primary documented in this encounter Additional Health Concerns Assessment Noted Time PHQ-9 Depression Total Score: 11 024 9:48 AM EDT documented as of this encounter Care Teams Cement Railroad Car Loader Relationship Specialty Start Date End Date Cinthya Ray MD 230 [place] [address] PCP - General Family Medicine 10/23/11 Mayito Acuña PharmD 230 [place] [address] Pharmacist Internal Medicine 03/07/23 04/22/24 documented as of this encounter
--- OUTSIDE RECORDS SUMMARY | 2024-12-17 14:46 | XMS_ITS | Encounter Summary ---
Author Organization [employer] Address [address] [place] [address] [address] [facility] [place] [address] Care Team Providers Care Exhauster Name Role Phone Cinthya Ray MD Primary Care Provider Reason for Visit * Reason Comments Med Change Request Encounter Details Date Type Department Care Team ([facility] st Contact Info) Description 07/20/[address] [facility] [address] [place], [place] [phone] Cinthya Ray MD [address] [place] [address] Type 2 diabetes mellitus with hyperglycemia, with long-term current use of insulin ([facility]) Social History [...] Description 01/04/2025 3:00 PM EST Office Visit [facility] ADULT DENTAL [address] [place] [address] Thompson [facility]cleod [address] [place] [address] documented as of this encounter Goals Goal Patient Goal Type Associated Problems Recent Progress Patient-Stated? Author Blood Pressure < 140/90 Blood Pressure 100/69(2024 9:23 AM EDT) No Mayiot Acuña, PharmD Hemoglobin A1c < 7 Result Component 6.5( 3:35 PM EDT) No Mayito Acuña PharmD documented as of this encounter Visit Diagnoses Diagnosis Type 2 diabetes mellitus with hyperglycemia, with long-term current use of insulin (HCC) documented in this encounter Additional Health Concerns Assessment Noted Time PHQ-9 Depression Total Score: 14 025 3:57 PM EDT documented as of this encounter Care Teams Exhauster Relationship Specialty Start Date End Date Cinthya Ray MD [address] [place] [address] PCP - General Family Medicine 10/23/11 documented as of this encounter
--- OUTSIDE RECORDS SUMMARY | 2024-12-17 14:46 | XMS_ITS | Encounter Summary ---
Author Organization [employer] Address [address] [facility] 7 [place] [address] Care Team Providers Care Film Maker Name Role Phone Cinthya Ray MD Primary Care Provider [phone] Mayito Acuña PharmD Unavailable [phone] Reason for Visit * Reason Onset Date Comments Results 12/09/2022 Encounter Details Date Type Department Care Team ([facility] st Contact Info) Description 12/09/2022 Telephone [facility] [address] [place], [place] [phone] Cinthya Ray MD [address] [place], [place] [phone] Results Social History Tobacco Use Types Packs/Day [...] to US results. Please contact pt at [phone] documented in this encounter Plan of Treatment Upcoming Encounters Date Type Department Care Team (Late st Contact Info) Description 01/04/2025 3:00 PM EST Office Visit [facility] ADULT DENTAL [address] [place] [address] Thompson [facility] [address] [place] [address] documented as of this encounter Visit Diagnoses Not on filedocumented in this encounter Care Teams Film Maker Relationship Specialty Start Date End Date Cinthya Ray MD [address] [place] [address] PCP - General Family Medicine 10/23/11 Mayito Acuña, Citlali [address] [place], [place] [phone] Pharmacist Internal Medicine 03/07/23 04/22/24 documented as of this encounter
--- OUTSIDE RECORDS SUMMARY | 2024-12-17 14:46 | XMS_ITS | Encounter Summary ---
Author Organization [employer] Address [address] [place] [address] 7 [place] [address] Care Team Providers Care Retail Shift Manager Name Role Phone Cinthya Ray MD Primary Care Provider [phone] Mayito Acuña PharmD Unavailable [phone] Reason for Visit * Reason Comments Med Refill Encounter Details Date Type Department Care Team (Late st Contact Info) Description 08/31/2022 Refill [facility] [address] [place] [address] Starla Nuñez MD 230 [place], [place] [phone] Injury of head, initial encounter Social History [...] Description 01/04/2025 3:00 PM EST Office Visit [facility] ADULT DENTAL [address] [place] [address] Thompson [facility] [address] [place] [address] documented as of this encounter Visit Diagnoses Diagnosis Injury of head, initial encounter documented in this encounter Care Teams Retail Shift Manager Relationship Specialty Start Date End Date Cinthya Ray MD [address] [place] [address] PCP - General Family Medicine 10/23/11 Mayito Acuña, DyanD [address] [place], [place] [phone] Pharmacist Internal Medicine 03/07/23 04/22/24 documented as of this encounter
--- OUTSIDE RECORDS SUMMARY | 2024-12-17 14:46 | XMS_ITS | Encounter Summary ---
Author Organization [employer] Address [address] [place] [address] 7 [place] [address] Care Team Providers Care Ski Patrol Name Role Phone Cinthya Ray MD Primary Care Provider [phone] Mayito Acuña PharmD Unavailable [phone] Reason for Visit * Reason Onset Date Comments Appointment Request 09/02/2022 Encounter Details Date Type Department Care Team ([facility] st Contact Info) Description 09/02/2022 Telephone [facility] [address] [place], [place] [phone] Cinthya Ray MD [address] [place], [place] [phone] Appointment Request Social History Tobacco Use Types [...] her kidney failure.' Please contact pt at [phone] documented in this encounter Plan of Treatment Upcoming Encounters Date Type Department Care Team (Late st Contact Info) Description 01/04/2025 3:00 PM EST Office Visit [facility] ADULT DENTAL 505 [place] [address] Thompson [facility] [address] [place] [address] documented as of this encounter Visit Diagnoses Not on filedocumented in this encounter Care Teams Ski Patrol Relationship Specialty Start Date End Date Cinthya Ray MD [address] [place] [address] PCP - General Family Medicine 10/23/11 Mayito Acuña, DyanD [address] [place] [address] Pharmacist Internal Medicine 03/07/23 04/22/24 documented as of this encounter
--- OUTSIDE RECORDS SUMMARY | 2024-12-17 14:46 | XMS_ITS | Encounter Summary ---
Author Organization [employer] Address [address] [place] [address] 7 [place] [address] Care Team Providers Care Print Manager Name Role Phone Cinthya Ray MD Primary Care Provider [phone] Mayito Acuña PharmD Unavailable [phone] Reason for Visit * Reason Onset Date Comments Med Refill 11/02/2023 Encounter Details Date Type Department Care Team (Late st Contact Info) Description 11/02/2023 Refill [facility] MED[facility] 230 [place], [place] [phone] Cinthya Ray MD [address] [place], [place] [phone] Social History Tobacco Use Types Packs/Day Years [...] but unableto make. Pt will come to [facility] today open till 8pm. Pt reports [...] Gill Sent: 11/10/2023 5:32 PM EDT To: [facility] Front Office Subject: Appointment Request Appointment Request From: Sonali Rosa With Provider: Cinthya Ray MD [[facility]] Preferred Date Range: 11/11/2023 - 11/13/2023 [...] Description 01/04/2025 3:00 PM EST Office Visit [facility] ADULT [facility] [address] [place], [place] [phone] Rhona Mcleodricio 505 [place], [place] [phone] documented as of this encounter Goals Goal [...] documented as of this encounter Care Teams Print Manager Relationship Specialty Start Date End Date Cinthya Ray MD [address] [place] [address] PCP - General Family Medicine 10/23/11 Mayito Acuña PharmD [address] [place], [place] [phone] Pharmacist Internal Medicine 03/07/23 04/22/24 documented as of this encounter
--- OUTSIDE RECORDS SUMMARY | 2024-12-17 14:46 | XMS_ITS | Encounter Summary ---
Author Organization [employer] Address [address] [place] [address] 7 [place] [address] Care Team Providers Care Assembler Liquid Center Name Role Phone Cinthya Ray MD Primary Care Provider [phone] Mayito Acuña PharmD Unavailable [phone] Reason for Visit * Reason Onset Date Comments Med Refill 10/30/2023 Encounter Details Date Type Department Care Team (Late st Contact Info) Description 10/30/2023 Refill [facility] [address] [place], [place] [phone] Cinthya Ray MD 230 [place], [place] [phone] Social History Tobacco Use Types Packs/Day Years [...] 3:00 PM EST Office Visit [facility] ADULT DENTAL [address] [place] [address] Shani Thompson 505 [place] [address] documented as of this encounter Goals Goal [...] documented as of this encounter Care Teams Assembler Liquid Center Relationship Specialty Start Date End Date Cinthya Ray MD 230 [place] [address] PCP - General Family Medicine 10/23/11 Mayito Acuña PharmD 230 [place] [address] Pharmacist Internal Medicine 03/07/23 04/22/24 documented as of this encounter
--- OUTSIDE RECORDS SUMMARY | 2024-12-17 14:46 | XMS_ITS | Encounter Summary ---
Author Organization [employer] Address [address] [facility] 7 [place] [address] Care Team Providers Care Pneumatic Tester Mechanic Name Role Phone Cinthya Ray MD Primary Care Provider [phone] Mayito Acuña PharmD Unavailable [phone] Encounter Details Date Type Department Care Team (Late st Contact Info) Description 06/30/2023 Orders Only [facility] MED[facility]INE [address] [place], [place] [phone] Mayito Acuña, PharmD 230 [place] [address] Type 2 diabetes mellitus with hyperglycemia, with long-term current use of insulin ([facility]) (Primary Dx) Social History Tobacco Use Types [...] 3:00 PM EST Office Visit [facility] ADULT DENTAL [address] [place] [address] Shani, Thompson [address] [place] [address] documented as of this encounter Goals Goal Patient Goal Type Associated Problems Recent Progress Patient-Stated? Author Blood Pressure < 140/90 Blood Pressure 100/69(2024 9:23 AM EDT) No Mayito Acuña, Citlali Hemoglobin A1c < 7 Result Component 6.5( 3:35 PM EDT) No Maiyto Acuña PharmD documented as of this encounter Procedures Procedure Name Priority Date/Time Associated Diagnosis Comments HEMATOXYLIN AND EOSIN STAIN Routine 06/30/2023 12:47 PM EDT Type 2 diabetes mellitus with hyperglycemia, with long-term current use of insulin ([facility]) documented in this encounter Results * Hematoxylin and Eosin Stain (06/30/2023 12:47 PM EDT) 06/30/2023 12:4 7 PM EDT 06/30/2023 1:27 PM EDT [facility] - 07/02/2023 9:30 AM EDT ----- ------- Name: Sonali Gill Age/Sex: 33/ : 1990 Unit#: [id number] Attend Dr: Jose Figueroa MD Re06/30/23 Status: [facility] Location: [facility] Disch: ----- ------- SPEC : [id number] RECD: 06/30/23 STATUS: DANOSushma LAUDoris NUM: [id number] MELANIA: 06/30/23-[address] [facility] [address]: Jose Figueroa MD ENTERED: 06/30/23-1333 SP [...] PAGE ----- ------- Name: Sonali Gill Age/Sex: 33/F : 1990 Unit#: [id number] Attend Dr: Jose Figueroa MD Re06/30/23 Status: [facility] Location: [facility] Disch: ----- ------- SPEC : [id number] RECD: 06/30/23-2 STATUS: TRUNG DEAN NUM: [id number] MELANIA: 06/30/23-[address] [facility] [address]: Jose Figueroa MD ENTERED: 06/30/239492 SP TYPE: Surgical OTHR DR: Cinthya Ray MD ORDERED: HE Stain/6, Gross Micro L4/5, IHC, Special st. 2/, H. pylori, AB/PAS/3 Gross Description (Continued) Part [...] on A-C Copies To: Jose Figueroa MD [address] [place] [address] [place] [address] Cinthya Ray MD [address] [place] [phone] ----- ------- Signed (signature on file) Esa Aguiar MD 07/02/23 0930 ----- ------- END OF REPORT us Generic External Data Provider LAB BLOOD ORDERAB LES Final Result [facility] [address] [place] [address] [phone] documented in this encounter Visit Diagnoses Diagnosis Type 2 diabetes mellitus with hyperglycemia, with long-term current use of insulin (HCC)- Primary documented in this encounter Additional Health Concerns Assessment Noted Time PHQ-9 Depression Total Score: 0 06/10/19 24 2:55 PM EDT documented as of this encounter Care Teams Pneumatic Tester Mechanic Relationship Specialty Start Date End Date Cinthya Ray MD [address] [place] [address] PCP - General Family Medicine 10/23/11 Mayito Acuña, DyanD [address] [place] [address] Pharmacist Internal Medicine 03/07/23 04/22/24 documented as of this encounter
== END ==
LOC: HO.CARD 12:34
PROVIDERS: PCP Family Medicine; Visit Provider Internal Medicine
DX: I95.9 Hypotension, unspecified (principal)
CPT/HCPCS: 93306; Q9957

== ENCOUNTER → 2024-12-17 12:37 | Outpatient (BNV) | payer MEDICAID, SELFPAY | PROVIDERS: PCP Family Medicine; Visit Provider Internal Medicine Cardiovascular Disease | DX: I95.9 Hypotension, unspecified (principal) | CPT/HCPCS: 93306 ==

== ENCOUNTER 2024-12-27 14:59 | Outpatient (AMB) | payer MEDICAID, SELFPAY ==
--- NOTE | 2024-12-27 15:00 | A.OFFVIS_ITS ---
Vital Signs 12/27/24 15:01 Height 5 ft 2 in Weight 186 lb 1.122 oz BMI 34.0 BP 98/66 Blood Pressure Location Rt brachial Position Sitting Pulse 91 Pulse Source Pulse Oximeter Pulse Oximetry (%) 99 Oxygen Delivery Method Room Air Intake Visit Reasons: T2DM Intake Note: Patient present today for Type 2 Diabetes Mellitus Last Diabetic eye exam: Last exam was on 01/2024, she has upcoming appt in January. Last Podiatry Visit: Doesn't have one Random Glucose: 111 mg/dl HgA1C: 7.7% 11/19/24 Manufacturing Mechanic Required: No Accompanied by: Self / Same As Patient Allergies Seasonal Allergies Allergy (Mild, Verified 12/27/24 15:08) Runny Nose Medication List - Last Reconciled 12/27/24 by Kimberly Isaac PA-C blood sugar diagnostic (FreeStyle Lite Strips) Use daily As directed to check blood glucose blood-glucose meter (FreeStyle Lite Meter kit) Use daily As directed to check blood sugars blood-glucose sensor (FreeStyle Audrey 3 Plus Sensor device) Use daily As directed to monitor glucose blood-glucose,plasma table operator,cont (FreeStyle Audrey 3 [place]) Use daily As directed to monitor blood glucose insulin degludec (Tresiba FlexTouch U-100 insulin) 50 units subcut DAILY lamotrigine mg PO lancets (FreeStyle Lancets) use BID as directed to check blood glucose metformin 1,000 mg (2 x 500 mg) PO BID pantoprazole 40 mg PO DAILY pen needle, diabetic As directed tid sumatriptan succinate 25 mg PO Q2-4H PRN tirzepatide (Mounjaro) 10 mg (0.5 mL) subcut QWEEK HPI HPI T2DM: Details: Patient is a 34-year-old female with a significant past medical history of type 2 diabetes, obesity, depression and Sen's esophagus presenting today for follow up visit regarding diabetes. Endo: She was diagnosed with diabetes around age 26. Her A1c is 7.7. She is currently on metformin 1000 mg once a day, Tresiba 60 units daily and Mounjaro 10 mg weekly. -has noted a lot of appetite suppression with the mounjaro and has had some low glucose readings. She has lost 15 lbs in 1 month. -The lispro was causing n/v almost instantly after administering so she d/c'd this. -The Trulicity and ozempic she finds ineffective/nausea for 2 days after taking it. cgm-usage 98%, G mi 6.2%, average glucose 122. Very hyperglycemic 1%, hyperglycemic 9%, in range 87%, 3% hypoglycemia. CV: Blood pressure today is 98/66. Following with cardiology for hypotension. [facility] Medical History Fatty liver GERD (gastroesophageal reflux disease) Anxiety Depression Insulin dependent type 2 diabetes mellitus Migraines BMI 32.0-32.9,adult Gallstones Body mass index (BMI) of 38.0 to 38.9 in adult Obesity Surgical History Hx of shoulder surgery History of esophagogastroduodenoscopy (EGD) History of cholecystectomy H/O tubal ligation History of surgery on wrist Hx of section Family History Father HTN (hypertension) Mother No problems noted. Sister Arthritis Knee problem Sister Arthritis Allergies Knee problem Brother No problems noted. Brother No problems noted. Son No problems noted. Son Autism Family/Other Breast cancer Social History Household Members Other:: minor children Are you a primary care associate to a significant other at home: Yes Do you presently have visiting nurse or other home services: No Alcohol intake: never Comment: counts correct Patient Tobacco Use Status: Never used Tobacco Current occupation: rt handed Physical Exam Const Orientation/consciousness: patient oriented x3 HEENT Ears: hearing grossly normal bilaterally Neck Thyroid: Thyroid normal Lymphatic: no lymphadenopathy noted Resp Auscultation: clear to auscultation bilaterally Cardio Rate: regular rate Rhythm: regular rhythm Heart sounds: S1 normal heart sound present and S2 normal heart sound present Skin General skin exam: no rashes or lesions noted Neuro General: patient oriented x3, gait normal and no focal motor deficits Results Reviewed Results Reviewed: Laboratory Tests 01/26/24 08/23/24 08/23/24 10:46 10:50 11:15 Creatinine 0.60 Estimated GFR > 60 Hgb A1c (Clinic) 7.8 H AST 25 ALT 18 Triglycerides 152 H Cholesterol 147 LDL Cholesterol, Calc 87 HDL Cholesterol 30 L 11/19/24 14:10 Creatinine Estimated GFR Hgb A1c (Clinic) 7.7 H AST ALT Triglycerides Cholesterol LDL Cholesterol, Calc HDL Cholesterol Assessment & Plan Assessment & Plan (1) Uncontrolled type 2 diabetes mellitus with hyperglycemia, with long-term current use of insulin: Code(s): E11.65 - Type 2 diabetes mellitus with hyperglycemia; Z79.4 - halfway (current) use of insulin Category: Medical Plan: reduce Tresiba 45units stop novolog fully decrease metformin to 500 mg daily Increase Mounjaro to 12.5 mg weekly Medications: New tirzepatide (Mounjaro) 12.5 mg (0.5 mL) subcut QWEEK 2 mL 5RF Changed From insulin degludec (Tresiba FlexTouch U-100 insulin) 50 units subcut DAILY To insulin degludec (Tresiba FlexTouch U-100 insulin) 45 units subcut DAILY From metformin 1,000 mg (2 x 500 mg) PO BID 360 tabs 0RF To metformin 500 mg PO BID 180 tabs 3RF From metformin 500 mg PO BID 180 tabs 3RF To metformin 500 mg PO DAILY 90 tabs 3RF Discontinued tirzepatide (Mounjaro) Discontinued Reason: Doctor's Order 10 mg (0.5 mL) subcut QWEEK 2 mL 5RF insulin aspart U-100 (Novolog FlexPen U-100 Insulin aspart) with breakfast, lunch and dinner Discontinued Reason: Doctor's Order 5 units (0.05 mL) subcut TID 15 mL 2RF Patient Instructions: reduce Tresiba 45 units stop novolog fully decrease metformin to 500 mg daily (1 tab) Increase Mounjaro to 12.5 mg weekly Coding Level of Care Code Est Pt Level 4 (31183) Complex EM visit Add On G2211 Diagnoses Uncontrolled type 2 diabetes mellitus with hyperglycemia, with long-term current use of insulin E11.65; Z79.4
[2024-12-27 15:01] VITALS: BP 98/66; PULSE 91; O2SAT 99; BMI 34.0
[2024-12-27 15:13] LABS: Glucose, Whole Blood 111 mg/dL (60-115)
== END 2024-12-27 15:25 | disposition home or self-care (01) ==
LOC: HO.ENCR 15:00
PROVIDERS: PCP Family Medicine; Visit Provider Physician Assistant
DX: E11.65 Type 2 diabetes mellitus with hyperglycemia (principal); Z79.4 Long term (current) use of insulin

== ENCOUNTER → 2024-12-27 14:59 | Outpatient (BNVA) | payer MEDICAID, SELFPAY | PROVIDERS: PCP Family Medicine; Visit Provider Physician Assistant | DX: E11.65 Type 2 diabetes mellitus with hyperglycemia (principal); Z79.84 Long term (current) use of oral hypoglycemic drugs; Z79.899 Other long term (current) drug therapy; Z79.4 Long term (current) use of insulin | CPT/HCPCS: 82947; 99212 ==

== ENCOUNTER 2025-01-11 09:48 | Outpatient (REF) | payer MEDICAID, SELFPAY ==
--- OUTSIDE RECORDS SUMMARY | 2025-01-13 08:57 | XMS_ITS | Encounter Summary ---
Author Organization [employer] Address 75 [facility] 7 [place] [address] Care Team Providers Care Facilities Mechanical Design Engineer Name Role Phone Cinthya Ray MD Primary Care Provider [phone] Encounter Details Date Type Department Care Team ([facility] st Contact Info) Description 06/09/2024 Orders Only [facility] MEDICINE [address] [place], [place] [phone] Abigail Darling CNM [address] [place] [address] Social History Tobacco Use Types Packs/Day Years [...] Description 02/07/2025 2:00 PM EST Office Visit [facility] MEDICINE 230 [place] [address] Cinthya Ray MD 230 [place] [address] 02/15/2025 9:00 AM EST Office Visit [facility] ADULT [facility] 505 [place] [address] Shani, Thompson 505 [place] [address] 02/22/2025 9:00 AM EST Office Visit [facility] 505 [place] [address] Shani, Thompson 505 [place] [address] documented as of this encounter Goals Goal [...] documented as of this encounter Care Teams Facilities Mechanical Design Engineer Relationship Specialty Start Date End Date Cinthya Ray MD 230 [place] [address] PCP - General Family Medicine 10/23/11 documented as of this encounter
--- OUTSIDE RECORDS SUMMARY | 2025-01-13 08:57 | XMS_ITS | Encounter Summary ---
Author Organization [employer] Address [address] [place] [address] 7 [place] [address] Care Team Providers Care Business Investor Name Role Phone Cinthya Ray MD Primary Care Provider [phone] Reason for Visit * Reason Comments Med Refill Encounter Details Date Type Department Care Team ([facility] st Contact Info) Description 04/26/2024 Refill [facility] MEDICINE 230 [place], [place] [phone] Cinthya Ray MD 230 [place] [address] Social History Tobacco Use Types Packs/Day Years [...] 02/07/2025 2:00 PM EST Office Visit [facility] MEDICINE 230 [place] [address] Cinthya Ray MD 230 [place] [address] 02/15/2025 9:00 AM EST Office Visit [facility] 505 [place] [address] Shnai, Thompson 505 [place] [address] 02/22/2025 9:00 AM EST Office Visit [facility] 505 [place] [address] Shani, Thompson 505 [place] [address] documented as of this encounter Goals Goal [...] as of this encounter Care Teams Business Investor Relationship Specialty Start Date End Date Cinthya Ray MD 230 [place] [address] PCP - General Family Medicine 10/23/11 documented as of this encounter
--- OUTSIDE RECORDS SUMMARY | 2025-01-13 08:57 | XMS_ITS | Encounter Summary ---
Author Organization [employer] Address [address] [place] [address] Care Team Providers Care Soap Worker Name Role Phone Cinthya Ray MD Primary Care Provider [phone] Mayito Acuña PharmD Unavailable [phone] Encounter Details Date Type Department Care Team (Late st Contact Info) Description 02/26/2022 Abstract [facility] MEDICINE [address] [place] [address] [phone] Cinthya Ray MD [address] [place] [address] [phone] Social History Tobacco Use Types Packs/Day Years [...] 02/07/2025 2:00 PM EST Office Visit [facility] MEDICINE [address] [place] [address] [phone] Cinthya Ray MD 230 [place], [place] [phone] 02/15/2025 9:00 AM EST Office Visit [facility] ADULT DENTAL [address] [place] [address] Tony Mcleodio 505 [place] [address] 02/22/2025 9:00 AM EST Office Visit [facility] ADULT D[facility]AL [address] [place] [address] Tony Mcleodio 505 [place] [address] documented as of this encounter Visit Diagnoses Not on filedocumented in this encounter Care Teams Soap Worker Relationship Specialty Start Date End Date Cinthya Ray MD 230 [place] [address] PCP - General Family Medicine 10/23/11 Mayito Acuña, DyanD [address] [place] [address] Pharmacist Internal Medicine 03/07/23 04/22/24 documented as of this encounter
--- OUTSIDE RECORDS SUMMARY | 2025-01-13 08:57 | XMS_ITS | Encounter Summary ---
Author Organization [employer] Address 75 [facility] 7 [place] [address] Care Team Providers Care Optical Goods Drill Operator Name Role Phone Cinthya Ray MD Primary Care Provider [phone] Reason for Visit * Reason Onset Date Comments Med Refill 06/18/2024 Encounter Details Date Type Department Care Team (Late st Contact Info) Description 06/18/2024 Refill [facility] MED & PEDS [address] [place] [address] Cinthya Ray MD 230 [place] [address] Injury of head, initial encounter Social History [...] Description 02/07/2025 2:00 PM EST Office Visit [facility] MEDICINE 230 [place] [address] Cinthya Ray MD 230 [place] [address] 02/15/2025 9:00 AM EST Office Visit [facility] 505 [place] [address] Thompson Mcleod 505 [place] [address] 02/22/2025 9:00 AM EST Office Visit [facility] 505 [place] [address] Thompson Mcleod 505 [place] [address] documented as of this encounter Goals Goal [...] documented as of this encounter Care Teams Optical Goods Drill Operator Relationship Specialty Start Date End Date Cinthya Ray MD [address] [place] [address] PCP - General Family Medicine 10/23/11 documented as of this encounter
--- OUTSIDE RECORDS SUMMARY | 2025-01-13 08:57 | XMS_ITS | Encounter Summary ---
Author Organization [employer] Address [address] [place] [address] 7[place] [address] Care Team Providers Care Animal Science Instructor Name Role Phone Cinthya Ray MD Primary Care Provider [phone] Mayito Acuña PharmD Unavailable [phone] Reason for Referral * Consultation (Urgent) - Closed Specialty Diagnoses / Procedures Referred By Contac t Referred To Contact Endocrinology Diagnoses Type 2 diabetes mellitus with hyperglycemia, with long-term current use of insulin (HCC) Cinthya Ray MD 230 [place] [address] Phone: tel: fax: [facility]ocr[facility]ology [address] [place] [address] Phone: tel: fax: Referral ID Status Reason Start Date Expiration Date V isits Requested Visits Authorized [id number] Closed Specialty Services Required 04/19/2024 04/19/2025 12 12 Encounter Details Date Type Department Care Team (Late st Contact Info) Description 04/19/2024 Orders Only [facility] MEDICINE 230 [place] [address] Cinthya Ray MD 230 [place] [address] Type 2 diabetes mellitus with hyperglycemia, with [...] Upcoming Encounters Date Type Department Care Team ([facility] st Contact Info) Description 02/07/2025 2:00 PM EST Office Visit [facility] MEDICINE 230 [place] [address] Cinthya Ray MD [address] [place] [address] 02/15/2025 9:00 AM EST Office Visit [facility] ADULT DENTAL 505 [place] [address] Thompson Mcleod 505 [place], [place] 02/22/2025 9:00 AM EST Office Visit [facility] ADULT DENTAL 505 [place] [address] Thompson Mcleod 505 [place], [place] Pending Results Name Type Priority Associated Diagnoses Date /Time Referral to Endocrinology Outpatient Referral Urgent Type 2 diabetes mellitus with hyperglycemia, with long-term current use of insulin ([facility]) 04/30/2024 Scheduled Referrals Name Type Priority Associated Diagnoses Order Schedule Referral to Endocrinology Outpatient Referral Urgent Type 2 diabetes mellitus with hyperglycemia, with long-term current use of insulin ([facility]) Expected: 04/19/2024 (Approximate), Expires: 04/19/2025 documented as [...] hyperglycemia, with long-term current use of insulin ([facility])- Primary documented in this encounter Additional Health Concerns Assessment Noted Time PHQ-9 Depression Total Score: 11 024 9:48 AM EDT documented as of this encounter Care Teams Animal Science Instructor Relationship Specialty Start Date End Date Cinthya Ray MD [address] [place] [address] PCP - General Family Medicine 10/23/11 Mayito Acuña, DyanD [address] [place] [address] Pharmacist Internal Medicine 03/07/23 04/22/24 documented as of this encounter
--- OUTSIDE RECORDS SUMMARY | 2025-01-13 08:57 | XMS_ITS | Encounter Summary ---
Author Organization [employer] Address [address] [place] [address] [address] [address] Care Team Providers Care Learning Support Aide Name Role Phone Cinthya Ray MD Primary Care Provider [phone] Reason for Referral * Consultation (Routine) - Closed Specialty Diagnoses / Procedures Referred By Contac t Referred To Contact Cardiology Diagnoses Hypotension, unspecified hypotension type Cinthya Ray MD 230 [place] [address] Phone: tel: fax: [facility] Referral ID Status Reason Start Date Expiration Date V isits Requested Visits Authorized [id number] Closed Specialty Services Required 07/09/2024 07/09/2025 6 6 Encounter Details Date Type Department Care Team (Late st Contact Info) Description 07/09/2024 Orders Only [facility] MEDICINE 230 [place], [place] [phone] Cinthya Ray MD 230 [place], [place] [phone] Hypotension, unspecified hypotension type (Primary Dx) Social [...] EST Office Visit [facility] MEDICINE 230 [place] [address] Cinthya Ray MD 230 [place] [address] 02/15/2025 9:00 AM EST Office Visit [facility]ULT [facility]AL 505 [place], [place] [phone] Thompson Mcleod 505 [place] [address] 02/22/2025 9:00 AM EST Office Visit [facility]ULT [facility]AL 505 [place] [address] Thompson Mcleod 505 [place] [address] Scheduled Referrals Name Type Priority Associated Diagnoses [...] documented as of this encounter Care Teams Learning Support Aide Relationship Specialty Start Date End Date Cinthya Ray MD 230 [place] [address] PCP - General Family Medicine 10/23/11 documented as of this encounter
--- OUTSIDE RECORDS SUMMARY | 2025-01-13 08:57 | XMS_ITS | Encounter Summary ---
Author Organization [employer] Address 75 [facility] 7 [place] [address] Care Team Providers Care Emergency Room Technician Name Role Phone Cinthya Ray MD Primary Care Provider [phone] Reason for Visit * Reason Comments Med Refill Encounter Details Date Type Department Care Team ([facility] st Contact Info) Description 11/23/2024 Refill [facility] [address] [place] [address] [phone] Lexis Spann MD 230 [place], [place] [phone] Social History Tobacco Use Types Packs/Day Years [...] 2:00 PM EST Office Visit [facility] MEDICINE 230 [place] [address] Cinthya Ray MD 230 [place] [address] 02/15/2025 9:00 AM EST Office Visit [facility] ADULT DENTAL 505 [place] [address] Shani Thompson 505 [place] [address] 02/22/2025 9:00 AM EST Office Visit [facility] ADULT DENTAL 505 [place] [address] Shani Thompson 505 [place] [address] documented as of this encounter Goals Goal [...] as of this encounter Care Teams Emergency Room Technician Relationship Specialty Start Date End Date Cinthya Ray MD [address] [place] [address] PCP - General Family Medicine 10/23/11 documented as of this encounter
--- OUTSIDE RECORDS SUMMARY | 2025-01-13 08:58 | XMS_ITS | Encounter Summary ---
Author Organization [employer] Address 75 [facility] 7 [place] [address] Care Team Providers Care Wire Technician Name Role Phone Cinthya Ray MD Primary Care Provider [phone] Mayito Acuña PharmD Unavailable [phone] Encounter Details Date Type Department Care Team ([facility] st Contact Info) Description 08/05/2023 Orders Only [facility] CH[facility] MED & PEDS [address] [place] [address] Izzy Olvera FNP 230 [place] [address] Social History Tobacco Use Types Packs/Day Years [...] Description 02/07/2025 2:00 PM EST Office Visit [facility] MEDICINE 230 [place] [address] Cinthya Ray MD 230 [place] [address] 02/15/2025 9:00 AM EST Office Visit [facility] ADULT DENTAL 505 [place] [address] [facility] 505 [place] [address] 02/22/2025 9:00 AM EST Office Visit [facility] ADULT [facility] 505 [place] [address] [facility] 505 [place] [address] documented as of this encounter Goals Goal [...] as of this encounter Care Teams Wire Technician Relationship Specialty Start Date End Date Cinthya Ray MD 230 [place] [address] PCP - General Family Medicine 10/23/11 Mayito Acuña PharmD [address] [place] [address] Pharmacist Internal Medicine 03/07/23 04/22/24 documented as of this encounter
--- OUTSIDE RECORDS SUMMARY | 2025-01-13 08:58 | XMS_ITS | Encounter Summary ---
Author Organization [employer] Address 75 [facility] 7 [place] [address] Care Team Providers Care Buffing Turner And Counter Name Role Phone Citnhya Ray MD Primary Care Provider [phone] Mayito Acuña PharmD Unavailable [phone] Encounter Details Date Type Department Care Team (Late st Contact Info) Description 03/05/2024 Orders Only [facility] MEDICINE 230 [place], [place] [phone] Cinthya Ray MD 230 [place], [place] [phone] Type 2 diabetes mellitus with other specified complication, with long-term current use of insulin ([facility]) (Primary Dx) Social History [...] Office Visit [facility] MEDICINE 230 [place] [address] Cinthya Ray MD 230 [place] [address] 02/15/2025 9:00 AM EST Office Visit [facility] ADULT DENTAL 505 [place] [address] ShaniRhonaThompson 505 [place] [address] 02/22/2025 9:00 AM EST Office Visit [facility] ADULT DENTAL 505 [place] [address] Shani Thompson 505 [place] [address] documented as of this encounter Goals Goal [...] documented as of this encounter Care Teams Buffing Turner And Counter Relationship Specialty Start Date End Date Cinthya Ray MD 230 [place] [address] PCP - General Family Medicine 10/23/11 Mayito Acuña PharmD 230 [place] [address] Pharmacist Internal Medicine 03/07/23 04/22/24 documented as of this encounter
--- OUTSIDE RECORDS SUMMARY | 2025-01-13 08:58 | XMS_ITS | Encounter Summary ---
Author Organization [employer] Address 75 [facility] 7 [place] [address] Care Team Providers Care Health Care Recruiter Name Role Phone Cinthya Ray MD Primary Care Provider [phone] Mayito Acuña PharmD Unavailable [phone] Reason for Visit * Reason Onset Date Comments Med Refill 01/03/2023 Encounter Details Date Type Department Care Team (Late st Contact Info) Description 01/03/2023 Refill [facility] MEDICINE 230 [place], [place] [phone] Cinthya Ray MD 230 [place], [place] [phone] Social History Tobacco Use Types Packs/Day Years [...] Description 02/07/2025 2:00 PM EST Office Visit [facility] MEDICINE [address] [place] [address] Cinthya Ray MD [address] [place] [address] 02/15/2025 9:00 AM EST Office Visit [facility]ULT [facility] 505 [place] [address] [facility] 505 [place] [address] 02/22/2025 9:00 AM EST Office Visit [facility] ADULT [facility] 505 [place] [address] [facility] 505 [place] [address] documented as of this encounter Visit Diagnoses Not on filedocumented in this encounter Care Teams Health Care Recruiter Relationship Specialty Start Date End Date Cinthya Ray MD [address] [place] [address] PCP - General Family Medicine 10/23/11 Mayito Acuña, PharmD [address] [place] [address] Pharmacist Internal Medicine 03/07/23 04/22/24 documented as of this encounter
--- OUTSIDE RECORDS SUMMARY | 2025-01-13 08:58 | XMS_ITS | Encounter Summary ---
Author Organization [employer] Address 75 [facility] 7t [place] [address] Care Team Providers Care Spinning Mule Tender Name Role Phone Cinthya Ray MD Primary Care Provider [phone] Myaito Acuña PharmD Unavailable [phone] Encounter Details Date Type Department Care Team (Late Contact Info) Description 06/13/2022 Orders Only [facility] [address] [place] [address] [phone] Jerrica Girard FNP Social History Tobacco Use [...] Description 02/07/2025 2:00 PM EST Office Visit [facility] MEDICINE 230 [place] [address] Cinthya Ray MD 230 [place] [address] 02/15/2025 9:00 AM EST Office [facility] ADULT DENTAL 505 [place] [address] Thompson Mcleod 505 [place] [address] 02/22/2025 9:00 AM EST Office [facility] ADULT DENTAL 505 [place] [address] Tony Mcleodio 505 [place] [address] documented as of this encounter Visit Diagnoses Not on filedocumented in this encounter Care Teams Spinning Mule Tender Relationship Specialty Start Date End Date Cinthya Ray MD [address] [place] [address] PCP - General Family Medicine 10/23/11 Mayito Acuña, DyanD [address] [place] [address] Pharmacist Internal Medicine 03/07/23 04/22/24 documented as of this encounter
--- OUTSIDE RECORDS SUMMARY | 2025-01-13 08:58 | XMS_ITS | Encounter Summary ---
Author Organization [employer] Address [address] [place] [address] 7 [place] [address] Care Team Providers Care Knife Sharpener Name Role Phone Cinthya Ray MD Primary Care Provider [phone] Mayito Acuña PharmD Unavailable [phone] Reason for Visit * Reason Onset Date Comments Med Refill 08/06/2023 Encounter Details Date Type Department Care Team (Late st Contact Info) Description 08/06/2023 Refill [facility] MEDICINE 230 [place], [place] [phone] Cinthya Ray MD 230 [place], [place] [phone] Social History Tobacco Use Types Packs/Day Years [...] 2:00 PM EST Office Visit [facility] MEDICINE 230 [place] [address] Cinthya Ray MD 230 [place] [address] 02/15/2025 9:00 AM EST Office Visit [facility] ADULT [facility]AL 505 [place] [address] [facility], Thompson 505 [place] [address] 02/22/2025 9:00 AM EST Office Visit [facility] AD[facility] 505 [place] [address] [facility], Thompson [address] [place] [address] documented as of this encounter Goals Goal [...] documented as of this encounter Care Teams Knife Sharpener Relationship Specialty Start Date End Date Cinthya Ray MD 230 [place] [address] PCP - General Family Medicine 10/23/11 Mayito Acuña, PharmD 230 [place] [address] Pharmacist Internal Medicine 03/07/23 04/22/24 documented as of this encounter
--- OUTSIDE RECORDS SUMMARY | 2025-01-13 08:58 | XMS_ITS | Encounter Summary ---
Author Organization [employer] Address 75 [facility] 7 [place] [address] Care Team Providers Care Account Developer Name Role Phone Cinthya Ray MD Primary Care Provider [phone] Mayito Acuña PharmD Unavailable [phone] Encounter Details Date Type Department Care Team (Late st Contact Info) Description 04/07/2024 Orders Only [facility] MEDICINE 230 [place], [place] [phone] Lexis Spann MD 230 [place] [address] Social History Tobacco Use Types Packs/Day Years [...] the past 12 months, has t he [employer] gas, oil or water company threatened to [...] Visit [facility] MEDICINE 230 [place] [address] Cinthya Ray MD 230 [place] [address] 02/15/2025 9:00 AM EST Office Visit [facility] ADULT DENTAL 505 [place] [address] Rhona Mcleodricio 505 [place] [address] 02/22/2025 9:00 AM EST Office Visit [facility] ADULT DENTAL 505 [place] [address] ShaniRhona trianaricio 505 [place] [address] documented as of this encounter Goals Goal [...] as of this encounter Care Teams Account Developer Relationship Specialty Start Date End Date Cinthya Ray MD 230 [place] [address] PCP - General Family Medicine 10/23/11 Mayito Acuña PharmD [address] [place] [address] Pharmacist Internal Medicine 03/07/23 04/22/24 documented as of this encounter
--- OUTSIDE RECORDS SUMMARY | 2025-01-13 08:58 | XMS_ITS | Encounter Summary ---
Author Organization [employer] Address [address] [place] [address] 7 [place] [address] Care Team Providers Care Senior Data Warehouse Architect Name Role Phone Cinthya Ray MD Primary Care Provider [phone] Mayito Acuña PharmD Unavailable [phone] Reason for Visit * Reason Onset Date Comments Med Refill 10/30/2023 Encounter Details Date Type Department Care Team (Late st Contact Info) Description 10/30/2023 Refill [facility] MEDICINE 230 [place], [place] [phone] Cinthya Ray MD 230 [place], [place] [phone] Social History Tobacco Use Types Packs/Day Years [...] Description 02/07/2025 2:00 PM EST Office Visit [facility] MEDICINE 230 [place] [address] Cinthya Ray MD 230 [place] [address] 02/15/2025 9:00 AM EST Office Visit [facility] ADULT DENT[facility] 505 [place] [address] [facility], Thompson 505 [place] [address] 02/22/2025 9:00 AM EST Office Visit [facility] ADULT DENT[facility] 505 [place] [address] [facility], Thompson 505 [place] [address] documented as of this encounter Goals Goal [...] as of this encounter Care Teams Senior Data Warehouse Architect Relationship Specialty Start Date End Date Cinthya Ray MD 230 [place] [address] PCP - General Family Medicine 10/23/11 Mayito Acuña, PharmD 230 [place] [address] Pharmacist Internal Medicine 03/07/23 04/22/24 documented as of this encounter
--- OUTSIDE RECORDS SUMMARY | 2025-01-13 08:58 | XMS_ITS | Encounter Summary ---
Author Organization [employer] Address [address] [place] [address] 7[place] [address] Care Team Providers Care Stove Tender Name Role Phone Cinthya Ray MD Primary Care Provider [phone] Mayito Acuña PharmD Unavailable [phone] Reason for Visit * Reason Onset Date Comments triage 04/10/2022 Encounter Details Date Type Department Care Team (Late st Contact Info) Description 04/10/2022 Telephone [facility] MEDICINE 230 [place], [place] [phone] Cinthya Ray MD 230 [place], [place] [phone] triage Social History Tobacco Use Types Packs/Day [...] Description 02/07/2025 2:00 PM EST Office Visit [facility] MEDICINE [address] [place] [address] Cinthya Ray MD 230 [place] [address] 02/15/2025 9:00 AM EST Office Visit [facility] ADULT [facility] 505 [place] [address] Thompson Mcleod [address] [place] [address] 02/22/2025 9:00 AM EST Office Visit [facility] AD[facility] [address] [place] [address] Thompson Mcleod [address] [place] [address] documented as of this encounter Visit Diagnoses Not on filedocumented in this encounter Care Teams Stove Tender Relationship Specialty Start Date End Date Cinthya Ray MD [address] [place] [address] PCP - General Family Medicine 10/23/11 Mayito Acuña, PharmD [address] [place] [address] Pharmacist Internal Medicine 03/07/23 04/22/24 documented as of this encounter
--- OUTSIDE RECORDS SUMMARY | 2025-01-13 08:58 | XMS_ITS | Encounter Summary ---
Author Organization [employer] Address [address] [place] [address] 7 [place] [address] Care Team Providers Care Research Chief Engineer Name Role Phone Cinthya Ray MD Primary Care Provider [phone] Mayito Acuña PharmD Unavailable [phone] Reason for Visit * Reason Onset Date Comments callback request 12/30/2023 Encounter Details Date Type Department Care Team (Late st Contact Info) Description 12/30/[address] [facility] MEDICINE 230 [place], [place] [phone] Cinthya Ray MD 230 [place], [place] [phone] callback request Social History Tobacco Use Types [...] EST Tc from pt returning call from [facility] to book an appointment for follow up Callback [phone] documented in this encounter Plan of Treatment Upcoming Encounters Date Type Department Care Team (Late st Contact Info) Description 02/07/2025 2:00 PM EST Office Visit [facility] MEDICINE 230 [place] [address] Cinthya Ray MD 230 [place] [address] 02/15/2025 9:00 AM EST Office Visit [facility] ADULT DENTAL 505 [place] [address] [facility] 505 [place] [address] 02/22/2025 9:00 AM EST Office Visit [facility] ADULT DENTAL [address] [place] [address] [facility] 505 [place] [address] documented as of this encounter Goals Goal [...] documented as of this encounter Care Teams Research Chief Engineer Relationship Specialty Start Date End Date Cinthya Ray MD 230 [place] [address] PCP - General Family Medicine 10/23/11 Mayito Acuña, Citlali 230 [place] [address] Pharmacist Internal Medicine 03/07/23 04/22/24 documented as of this encounter
--- OUTSIDE RECORDS SUMMARY | 2025-01-13 08:58 | XMS_ITS | Encounter Summary ---
Author Organization [employer] Address 75 [facility] 7 [place] [address] Care Team Providers Care Fire Prevention Captain Name Role Phone Cinthya Ray MD Primary Care Provider [phone] Mayito Acuña PharmD Unavailable [phone] Reason for Visit * Reason Onset Date Comments Med Refill 03/12/2024 Encounter Details Date Type Department Care Team (Late st Contact Info) Description 03/12/2024 Refill [facility] CHC MED & PEDS [address] [place], [place] [phone] Cinthya Ray MD 230 [place], [place] [phone] Type 2 diabetes mellitus with hyperglycemia, without long-term current use of insulin ([facility]) Social History Tobacco Use [...] Description 02/07/2025 2:00 PM EST Office Visit [facility] MEDICINE 230 [place] [address] Cinthya Ray MD 230 [place] [address] 02/15/2025 9:00 AM EST Office Visit [facility] AD[facility] 505 [place] [address] [facility] [address] [place] [address] 02/22/2025 9:00 AM EST Office Visit [facility] ADULT D[facility]AL 505 [place] [address] Rhona [facility]cle[facility]io 505 [place] [address] documented as of this encounter Goals Goal [...] documented as of this encounter Care Teams Fire Prevention Captain Relationship Specialty Start Date End Date Cinthya Ray MD 230 [place] [address] PCP - General Family Medicine 10/23/11 Mayito Acuña PharmD [address] [place] [address] Pharmacist Internal Medicine 03/07/23 04/22/24 documented as of this encounter
--- OUTSIDE RECORDS SUMMARY | 2025-01-13 08:58 | XMS_ITS | Encounter Summary ---
Author Organization [employer] Address [address] [place] [address] 7 [place] [address] Care Team Providers Care Line Servicer Name Role Phone Cinthya Ray MD Primary Care Provider [phone] Mayito Acuña PharmD Unavailable [phone] Reason for Visit * Reason Onset Date Comments Med Refill 09/29/2023 Encounter Details Date Type Department Care Team (Late st Contact Info) Description 09/29/2023 Refill [facility] MEDICINE 230 [place], [place] [phone] Cinthya Ray MD 230 [place], [place] [phone] Type 2 diabetes mellitus with hyperglycemia, without long-term current use of insulin ([facility]) Social History Tobacco Use Types [...] Office Visit [facility] MEDICINE 230 [place] [address] Cinthya Ray MD 230 [place] [address] 02/15/2025 9:00 AM EST Office Visit [facility] ADULT DENTAL 505 [place] [address] [facility] 505 [place] [address] 02/22/2025 9:00 AM EST Office Visit [facility] ADULT DENTAL 505 [place] [address] Rhona [facility]cle[facility]ricio 505 [place] [address] documented as of this encounter Goals Goal [...] documented as of this encounter Care Teams Line Servicer Relationship Specialty Start Date End Date Cinthya Ray MD 230 [place] [address] PCP - General Family Medicine 10/23/11 Mayito Acuña PharmD [address] [place] [address] Pharmacist Internal Medicine 03/07/23 04/22/24 documented as of this encounter
--- OUTSIDE RECORDS SUMMARY | 2025-01-13 08:58 | XMS_ITS | Encounter Summary ---
Author Organization [employer] Address 75 [facility] 7 [place] [address] Care Team Providers Care Quality Technician Fiberglass Name Role Phone Cinthya Ray MD Primary Care Provider [phone] Mayito Acuña PharmD Unavailable [phone] Encounter Details Date Type Department Care Team (Late st Contact Info) Description 03/05/2023 Orders Only [facility] MEDICINE 230 [place], [place] [phone] Cinthya Ray MD 230 [place] [address] Social History Tobacco Use Types Packs/Day Years [...] Description 02/07/2025 2:00 PM EST Office Visit [facility] MED[facility]INE 230 [place] [address] Cinthya Ray MD [address] [place] [address] 02/15/2025 9:00 AM EST Office Visit [facility] ADULT DENTAL 505 [place] [address] [facility] 505 [place] [address] 02/22/2025 9:00 AM EST Office Visit [facility] ADULT DENTAL 505 [place] [address] [facility] 505 [place] [address] documented as of this encounter Goals Goal Patient Goal Type Associated Problems Recent Progress Patient-Stated? Author Blood Pressure < 140/90 Blood Pressure 112/74(2024 8:14 AM EST) No Mayito Acuña PharmD Hemoglobin A1c < 7 Result Component 6.5( 3:35 PM EDT) No Mayito Acuña PharmD documented as of this encounter Visit Diagnoses Not on filedocumented in this encounter Care Teams Quality Technician Fiberglass Relationship Specialty Start Date End Date Cinthya Ray MD 230 [place] [address] PCP - General Family Medicine 10/23/11 Mayito Acuña, DyanD 230 [place] [address] Pharmacist Internal Medicine 03/07/23 04/22/24 documented as of this encounter
--- OUTSIDE RECORDS SUMMARY | 2025-01-13 08:58 | XMS_ITS | Encounter Summary ---
Author Organization [employer] Address 75 [facility] 7 [place] [address] Care Team Providers Care Test Design Engineer Name Role Phone Cinthya Ray MD Primary Care Provider [phone] Mayito Acuña PharmD Unavailable [phone] Encounter Details Date Type Department Care Team (Late st Contact Info) Description 06/30/2023 Orders Only [facility] MEDICINE 230 [place], [place] [phone] Mayito Acuña, PharmD 230 [place] [address] Type 2 diabetes mellitus with hyperglycemia, with long-term current use of insulin ([facility]) (Primary Dx) Social [...] 2:00 PM EST Office Visit [facility] MED[facility]INE 230 [place] [address] Cinthya Ray MD 230 [place] [address] 02/15/2025 9:00 AM EST Office Visit [facility] ADULT DENTAL 505 [place] [address] [facility], Thompson 505 [place] [address] 02/22/2025 9:00 AM EST Office Visit [facility] ADULT DENTAL 505 [place] [address] [facility], Thompson 505 [place] [address] documented as of this encounter Goals Goal [...] hyperglycemia, with long-term current use of insulin ([facility]) documented in this encounter Results * Hematoxylin and Eosin Stain (06/30/2023 12:47 PM EDT) 06/30/2023 12:4 7 PM EDT 06/30/2023 1:27 PM EDT [facility] - 07/02/2023 9:30 AM EDT ----- ------- Name: Sonali Gill Age/Sex: 33/F : 1990 Unit#: [id number] Attend Dr: Jose Figueroa MD Re06/30/23 Status: [facility] Location: [facility] Disch: ----- ------- SPEC : [id number] RECD: 06/30/23 STATUS: TRUNG DEAN NUM: [id number] MELANIA: 06/30/23-[address]: Jose Figueroa MD [...] Name: Sonali Gill Age/Sex: / [facility] 1990 [id number]#: [id number] Attend Dr: Jose Figueroa MD Re06/30/23 Status: [facility] Location: [facility] Disch: ----- ------- SPEC : [id number] RECD: 06/30/23 STATUS: TRUNG DEAN NUM: [id number] MELANIA: 06/30/[address] [facility] [address]: Jose Figueroa MD ENTERED: 06/30/23 SP [...] on A-C Copies To: Jose Figueroa MD [address] [place] [address] [place], [place] [id number] Cinthya Ray MD [address] [place] [address] ----- ------- Signed (signature on file) Esa Aguiar MD 07/02/23 0930 ----- ------- END OF REPORT us Generic External Data Provider LAB BLOOD ORDERAB LES Final Result [facility] [address] [place] [address] [phone] documented in this encounter Visit Diagnoses Diagnosis Type 2 diabetes mellitus with hyperglycemia, with long-term current use of insulin (HCC)- Primary documented in this encounter Additional Health Concerns Assessment Noted Time PHQ-9 Depression Total Score: 0 06/10/19 24 2:55 PM EDT documented as of this encounter Care Teams Test Design Engineer Relationship Specialty Start Date End Date Cinthya Ray MD 230 [place] [address] PCP - General Family Medicine 10/23/11 Mayito Acuña, DyanD 230 [place] [address] Pharmacist Internal Medicine 03/07/23 04/22/24 documented as of this encounter
--- OUTSIDE RECORDS SUMMARY | 2025-01-13 08:58 | XMS_ITS | Encounter Summary ---
Author Organization [employer] Address [address] [place] [address] [facility] [place] [address] Care Team Providers Care Sterilization Specialist Name Role Phone Cinthya Ray MD Primary Care Provider [phone] Mayito Acuña PharmD Unavailable [phone] Reason for Referral * Consultation (Routine) - Closed Specialty Diagnoses / Procedures Referred By Contcarly t Referred To Contact Pharmacy Diagnoses Type 2 diabetes mellitus with hyperglycemia, with long-term current use of insulin (HCC) Cinthya Ray MD 230 [place] [address] Phone: tel: fax: Referral ID Status Reason Start Date Expiration Date V isits Requested Visits Authorized [id number] Closed Consult and Treat 12/23/2023 12/22/2024 6 6 Encounter Details Date Type Department Care Team (Late st Contact Info) Description 12/23/2023 Orders Only [facility] MEDICINE [address] [place], [place] [phone] Cinthya Ray MD 230 [place], [place] [phone] Type 2 diabetes mellitus with hyperglycemia, with [...] [facility] [address] [place] [address] Cinthya Ray MD 230 [place] [address] 02/15/2025 9:00 AM EST Office Visit [facility] ADULT DENTAL [address] [place] [address] [facility] [address] [place] [address] 02/22/2025 9:00 AM EST Office Visit [facility] ADULT DENTAL [address] [place] [address] [facility] [address] [place] [address] Scheduled Referrals Name Type Priority Associated Diagnoses Orde r Schedule Referral to Pharmacy CDTM Outpatient Referral Routine Type 2 diabetes mellitus with hyperglycemia, with long-term current use of insulin ([facility]) Ordered: 12/23/2023 documented as of this encounter [...] hyperglycemia, with long-term current use of insulin ([facility])- Primary documented in this encounter Additional Health Concerns Assessment Noted Time PHQ-9 Depression Total Score: 11 09/28/ 024 9:48 AM EDT documented as of this encounter Care Teams Sterilization Specialist Relationship Specialty Start Date End Date Cinthya Ray MD 230 [place] [address] PCP - General Family Medicine 10/23/11 Mayito Acuña, DyanD [address] [place] [address] Pharmacist Internal Medicine 03/07/23 04/22/24 documented as of this encounter
--- OUTSIDE RECORDS SUMMARY | 2025-01-13 08:58 | XMS_ITS | Encounter Summary ---
Author Organization [employer] Address 75 [facility] 7 [place] [address] Care Team Providers Care Ointment Mill Tender Name Role Phone Cinthya Ray MD Primary Care Provider [phone] Mayito Acuña PharmD Unavailable [phone] Encounter Details Date Type Department Care Team (Late st Contact Info) Description 09/15/2023 Orders [address] [facility] MEDICINE 230 [place], [place] [phone] Cinthya Ray MD 230 [place] [address] Type 2 diabetes mellitus with hyperglycemia, without long-term current use of insulin ([facility]) Social History Tobacco [...] PM EST Office Visit [facility] MEDICINE [address] [place] [address] Cinthya Ray MD 230 [place] [address] 02/15/2025 9:00 AM EST Office Visit [facility] ADULT DENTAL 505 [place] [address] [facility], Thompson [address] [place] [address] 02/22/2025 9:00 AM EST Office Visit [facility] ADULT DENTAL [address] [place] [address] [facility], Thompson [address] [place] [address] documented as of this encounter Goals Goal [...] documented as of this encounter Care Teams Ointment Mill Tender Relationship Specialty Start Date End Date Cinthya Ray MD 230 [place] [address] PCP - General Family Medicine 10/23/11 Mayito Acuña, PharmD 230 [place] [address] Pharmacist Internal Medicine 03/07/23 04/22/24 documented as of this encounter
--- OUTSIDE RECORDS SUMMARY | 2025-01-13 08:58 | XMS_ITS | Encounter Summary ---
Author Organization [employer] Address 75 [facility] 7 [place] [address] Care Team Providers Care Spot Man Name Role Phone Cinthya Ray MD Primary Care Provider [phone] Mayito Acuña PharmD Unavailable [phone] Reason for Visit * Reason Onset Date Comments Med Refill 10/30/2023 Encounter Details Date Type Department Care Team (Late st Contact Info) Description 10/30/2023 Refill [facility] CHC MED & PEDS [address] [place], [place] [phone] Cinthya Ray MD 230 [place], [place] [phone] Type 2 diabetes mellitus with hyperglycemia, without long-term current use of insulin ([facility]) Social History Tobacco Use [...] Description 02/07/2025 2:00 PM EST Office Visit [facility] MEDICINE 230 [place] [address] Cinthya Ray MD 230 [place] [address] 02/15/2025 9:00 AM EST Office Visit [facility] ADULT DENTAL 505 [place] [address] Shani, Thompson 505 [place] [address] 02/22/2025 9:00 AM EST Office Visit [facility] ADULT DENTAL 505 [place] [address] Shani, Thompson 505 [place] [address] documented as of this encounter Goals Goal [...] documented as of this encounter Care Teams Spot Man Relationship Specialty Start Date End Date Cinthya Ray MD [address] [place] [address] PCP - General Family Medicine 10/23/11 Mayito Acuña PharmD [address] [place] [address] Pharmacist Internal Medicine 03/07/23 04/22/24 documented as of this encounter
--- OUTSIDE RECORDS SUMMARY | 2025-01-13 08:58 | XMS_ITS | Encounter Summary ---
Author Organization [employer] Address 75 [facility] 7 [place] [address] Care Team Providers Care Stop Attacher Name Role Phone Cinthya Ray MD Primary Care Provider [phone] Mayito Acuña PharmD Unavailable [phone] Reason for Visit * Reason Onset Date Comments Results 12/09/2022 Encounter Details Date Type Department Care Team ([facility] st Contact Info) Description 12/09/2022 Telephone [facility] MEDICINE 230 [place], [place] [phone] Cinthya Ray MD 230 [place], [place] [phone] Results Social History Tobacco Use Types Packs/Day [...] to US results. Please contact pt at [phone] documented in this encounter Plan of Treatment Upcoming Encounters Date Type Department Care Team (Late st Contact Info) Description 02/07/2025 2:00 PM EST Office Visit [facility] MEDICINE 230 [place] [address] Cinthya Ray MD [address] [place] [address] 02/15/2025 9:00 AM EST Office Visit [facility] ADULT DENTAL 505 [place] [address] [facility] [address] [place] [address] 02/22/2025 9:00 AM EST Office Visit [facility] ADULT DENTAL 505 [place] [address] [facility] [address] [place] [address] documented as of this encounter Visit Diagnoses Not on filedocumented in this encounter Care Teams Stop Attacher Relationship Specialty Start Date End Date Cinthya Ray MD 230 [place] [address] PCP - General Family Medicine 10/23/11 Mayito Acuña, DyanD [address] [place] [address] Pharmacist Internal Medicine 03/07/23 04/22/24 documented as of this encounter
--- OUTSIDE RECORDS SUMMARY | 2025-01-13 08:58 | XMS_ITS | Encounter Summary ---
Author Organization [employer] Address 75 [facility] 7 [place] [address] Care Team Providers Care Communication Instructor Name Role Phone Cinthya Ray MD Primary Care Provider [phone] Mayito Acuña PharmD Unavailable [phone] Reason for Visit * Reason Onset Date Comments Med Refill 12/24/2023 Encounter Details Date Type Department Care Team (Late st Contact Info) Description 12/24/[address] [facility] CHC MED & PEDS [address] [place], [place] [phone] Cinthya Ray MD 230 [place], [place] [phone] Type 2 diabetes mellitus with hyperglycemia, without long-term current use of insulin ([facility]) Social History Tobacco Use [...] 2:00 PM EST Office Visit [facility] MEDICINE [address] [place] [address] Cinthya Ray MD [address] [place] [address] 02/15/2025 9:00 AM EST Office Visit [facility] ADULT DENTAL 505 [place] [address] Thompson [facility] 505 [place] [address] 02/22/2025 9:00 AM EST Office Visit [facility] ADULT DENTAL 505 [place] [address] Rhona Mcleodricio 505 [place] [address] documented as of this encounter Goals Goal [...] documented as of this encounter Care Teams Communication Instructor Relationship Specialty Start Date End Date Cinthya Ray MD 230 [place] [address] PCP - General Family Medicine 10/23/11 Mayito Acuña PharmD [address] [place] [address] Pharmacist Internal Medicine 03/07/23 04/22/24 documented as of this encounter
--- OUTSIDE RECORDS SUMMARY | 2025-01-13 08:58 | XMS_ITS | Encounter Summary ---
Author Organization [employer] Address [address] [place] [address] [address] [address] Care Team Providers Care Line Walker Name Role Phone Cinthya Ray MD Primary Care Provider [phone] Mayito Acuña PharmD Unavailable [phone] Reason for Visit * Reason Onset Date Comments Medication Question 06/14/2022 Encounter Details Date Type Department Care Team (Late st Contact Info) Description 06/14/2022 Telephone [facility] MEDICINE 230 [place], [place] [phone] Cinthya Ray MD 230 [place], [place] [phone] Medication Question Social History Tobacco Use Types [...] Description 02/07/2025 2:00 PM EST Office Visit [facility] MEDICINE 230 [place] [address] Cinthya Ray MD 230 [place] [address] 02/15/2025 9:00 AM EST Office Visit [facility] ADULT DENTAL 505 [place] [address] Shani, Thompson [address] [place] [address] 02/22/2025 9:00 AM EST Office Visit [facility] ADULT DENTAL 505 [place] [address] Shani, Thompson [address] [place] [address] documented as of this encounter Visit Diagnoses Not on filedocumented in this encounter Care Teams Line Walker Relationship Specialty Start Date End Date Cinthya Ray MD 230 [place] [address] PCP - General Family Medicine 10/23/11 Mayito Acuña, PharmD [address] [place] [address] Pharmacist Internal Medicine 03/07/23 04/22/24 documented as of this encounter
--- OUTSIDE RECORDS SUMMARY | 2025-01-13 08:58 | XMS_ITS | Encounter Summary ---
Author Organization [employer] Address [address] [place] [address] Care Team Providers Care Poly Operator Name Role Phone Cinthya Ray MD Primary Care Provider [phone] Mayito Acuña PharmD Unavailable [phone] Reason for Referral * Consultation (Routine) - Closed Specialty Diagnoses / Procedures Referred By Ramya waller Referred To Contact Orthopaedic Surgery Diagnoses Chronic left shoulder pain Cinthya Ray MD [address] [place] [address] Phone: tel: fax: [facility] Orthopedics [address] [place] [address] [place] [phone] Phone: tel: Referral ID Status Reason Start Date Expiration Date V isits Requested Visits Authorized [id number] Closed Specialty Services Required 02/05/2024 02/04/2025 6 6 Encounter Details Date Type Department Care Team (Late st Contact Info) Description 02/05/2024 Orders Only [facility] MEDICINE 230 [place], [place] [phone] Cinthya Ray MD 230 [place], [place] [phone] Chronic left shoulder pain (Primary Dx) Social [...] Description 02/07/2025 2:00 PM EST Office Visit [facility] MEDICINE [address] [place] [address] Cinthya Ray MD 230 [place] [address] 02/15/2025 9:00 AM EST Office Visit [facility] ADULT DENTAL [address] [place] [address] [facility] 505 [place] [address] 02/22/2025 9:00 AM EST Office Visit [facility] ADULT DENTAL [address] [place] [address] [facility] [address] [place] [address] Scheduled Referrals Name Type Priority Associated Diagnoses [...] documented as of this encounter Care Teams Poly Operator Relationship Specialty Start Date End Date Cinthya Ray MD 230 [place] [address] PCP - General Family Medicine 10/23/11 Mayito Acuña, PharmD 230 [place] [address] Pharmacist Internal Medicine 03/07/23 04/22/24 documented as of this encounter
--- OUTSIDE RECORDS SUMMARY | 2025-01-13 08:58 | XMS_ITS | Encounter Summary ---
Author Organization [employer] Address [address] [place] [address] [address], [place] [address] Care Team Providers Care Sausage Smoker Name Role Phone Cinthya Ray MD Primary Care Provider [phone] Reason for Visit * Reason Onset Date Comments Appointment Request 12/28/2024 Encounter Details Date Type Department Care Team ([facility] st Contact Info) Description 12/28/2024 Telephone [facility] MEDICINE [address] [place], [place] [phone] Cinthya Ray MD [address] [place], [place] [phone] Appointment Request Social History Tobacco Use Types [...] the past 12 months, has t he [employer], gas, oil or water company threatened to [...] appointment with pcp, stated no immediate concerns. Civil Engineering Intern unable to schedule due to limited availability. Please contact pt at [phone]. documented in this encounter Plan of Treatment Upcoming Encounters Date Type Department Care Team ([facility] st Contact Info) Description 02/07/2025 2:00 PM EST Office Visit [facility] MEDICINE [address] [place] [address] Cinthya Ray MD [address] [place] [address] 02/15/2025 9:00 AM EST Office Visit [facility] ADULT DENTAL [address] [place] [address] Thompson Mcleod [address] [place] [address] 02/22/2025 9:00 AM EST Office Visit [facility] ADULT DENTAL [address] [place] [address] Thompson Mcleod [address] [place] [address] documented as of this encounter Goals Goal [...] Date End Date Cinthya Ray MD [address] [place] [address] PCP - General Family Medicine 10/23/11 documented as of this encounter
--- OUTSIDE RECORDS SUMMARY | 2025-01-13 08:58 | XMS_ITS | Clinical Summary ---
Author Organization [employer] Address [address] [place] [address] 7 [place] [address] Care Team Providers Care Agricultural Engineering Technologist Name Role Phone Cinthya Ray MD Primary Care Provider [phone] Allergies No known active allergies Medications * [...] tablet 3 01/31/20 24 Active Continuous Glucose Inventory Planner (FreeStyle Audrey [address] [place]) deviceIndications :Type 2 diabetes mellitus with hyperglycemia, [...] hyperglycemia, without long-term current use of insulin ([facility]) INJECT 35 UNITS SUBCUTANEOUSLY ONCE EVERY [...] recurrent major depressive disorder, without psychotic features ([facility]) 10/09/2024 Hypotension 05/04/2024 Assessment & Plan [...] both her parents. She had services with [facility] for psychiatry and individual therapy, but [...] Nov to Dec 2021. - Graduated from [facility] [employer] [facility]. - Eye exam: 01/28/24. [facility]. Nonregenerative diabetic retinopathy, bilateral, mild. [...] appreciated her effort - Eye exam: 01/24/23 [facility]. No diabetic retinopathy - Comprehensive [...] considering a bariatric surgery and went to [facility] management clinic - She had worked with our diabetes education nurse, Ene Arias from Nov to Dec 2021. - Currently showing good attendance to [facility]; appreciated her effort - Eye exam: 01/24/23 [facility]. No diabetic retinopathy - Comprehensive [...] appreciated her effort - Eye exam: 01/24/23 [facility]. No diabetic retinopathy - Comprehensive [...] considering a bariatric surgery and went to [facility] management clinic - She had worked with our diabetes education nurse, Ene Arias from Nov to Dec 2021. - Currently showing good attendance to [facility]; appreciated her effort - Eye exam: 01/24/23 [facility]. No diabetic retinopathy - Comprehensive [...] considering a bariatric surgery and went to [facility] management clinic - She had worked with our diabetes education nurse, Ene Arias from Nov to Dec 2021. - Currently showing good attendance to [facility]; appreciated her effort - Eye exam: 01/24/23 [facility]. No diabetic retinopathy - Comprehensive [...] Refer to [facility] - Eye exam: 01/24/23 [facility]. No diabetic retinopathy - Comprehensive [...] to Dec 2021. - Eye exam: 01/21/22 [facility]. No diabetic retinopathy - Comprehensive [...] to Dec 2021. - Eye exam: 01/21/22 [facility]. No diabetic retinopathy - Comprehensive [...] to Dec 2021. - Eye exam: 01/21/22 [facility]. No diabetic retinopathy - Comprehensive [...] to Dec 2021. - Eye exam: 01/21/22 [facility]. No diabetic retinopathy - Comprehensive [...] to Dec 2021. - Eye exam: 01/21/22 [facility]. No diabetic retinopathy - Comprehensive [...] to Dec 2021. - Eye exam: 01/21/22 [facility]. No diabetic retinopathy - Comprehensive [...] 2021. - completed Partial Hospitalization Program at [facility] 11/09/21 - 11/23/21 - current medication: none -Previous medication treatment Hx: venlafaxine was self-discontinued; trazodone was prescribed by psychiatrist while she was attending [facility], but pt self-discontinued due to ineffectivenss; sertraline 50 mg daily, patient self-discontinued. - previously seeing [facility] clinician and waiting for psychiatrist, patient has not been engaged in behavioral health therapy currently. - contacted by [facility] service and was referred to off-site service - patient has developed healthy coping skills Assessment & Plan (11/30/2023 1:22 PM EDT): - MDD vs. bipolar - severe exacerbation of Depression w/ SI in October 2021. - completed Partial Hospitalization Program at [facility] 11/09/21 - 11/23/21 - current medication: none -Previous medication treatment Hx: venlafaxine was self-discontinued; trazodone was prescribed by psychiatrist while she was attending [facility], but pt self-discontinued due to ineffectivenss; sertraline 50 mg daily, patient self-discontinued. - previously seeing [facility] clinician and waiting for psychiatrist, patient has not been engaged in behavioral health therapy currently. - contacted by [facility] service and was referred to off-site service - patient has developed healthy coping skills Assessment & Plan (03/07/2023 5:55 AM EST): - MDD vs. bipolar - severe exacerbation of Depression w/ SI in October 2021. - completed Partial Hospitalization Program at [facility] 11/09/21 - 11/23/21 - current medication: none -Previous medication treatment Hx: venlafaxine was self-discontinued; trazodone was prescribed by psychiatrist while she was attending [facility], but pt self-discontinued due to ineffectivenss; sertraline 50 mg daily, patient self-discontinued. - previously seeing [facility] clinician and waiting for psychiatrist, patient has not been engaged in behavioral health therapy currently. - will consider referring back Assessment & Plan (11/12/2022 4:17 PM EDT): - severe exacerbation of Depression w/ SI in October 2021. - completed Partial Hospitalization Program at [facility] 11/09/21 - 11/23/21 - Medication: Sertraline [...] 2021. - completed Partial Hospitalization Program at [facility] 11/09/21 - 11/23/21 - Medication: Sertraline [...] 2021. - completed Partial Hospitalization Program at [facility] 11/09/21 - 11/23/21 - Medication treatment [...] 2021. - completed Partial Hospitalization Program at [facility] 11/09/21 - 11/23/21 - Medication treatment [...] 2021. - completed Partial Hospitalization Program at [facility] 11/09/21 - 11/23/21 - Medication treatment Hx --venlafaxine was self-discontinued --trazodone was prescribed by psychiatrist while she was attending [facility], but pt self-discontinued due to ineffectivenss - still on waiting list for outpatient appt with psychiatrist and therapist. - Able to contract her safety today - Continue BHS with [facility] Assessment & Plan (02/22/2022 4:28 PM EST): - severe exacerbation of Depression w/ SI in October 2021. - completed Partial Hospitalization Program at [facility] 11/09/21 - 11/23/21 - Medication treatment [...] - previously participated weight management program at [facility], recently started seeing them again. - goal of wieght being 171 lbs to get surgery done. - continue working on lifestyle modifications - associated comorbidity: STELLA, diabetes mellitus type 2 - continue GLP1RA - patient is restricting food intake and discussed about its harmful effect. She is on GLP1RA and is having side effects. Will try to consult with both driver license agent and surgical weight loss provider. Surgical weight loss is not indicated and patient still may need to take medications. Assessment & Plan (01/27/2024 3:27 PM EST): - previously participated weight management program at [facility], recently started seeing them again. [...] Description 01/05/2025 8:00 AM EST Office Visit [facility] ADULT DENTAL [address] [place] [address] Thompson Mcleod 01/03/2025 Telephone [facility] WALK-IN CENTER [address] [place] [address] Sharona Leija MA 12/28/2024 Telephone [facility] MEDICINE [address] [place] [address] Cinthya Ray MD Appointment Request 12/27/2024 Orders Only GENERIC EXTERNAL DATA DEPARTMENT Provider, Generic External Data 11/23/2024 Refill [facility] [address] [place] [address] Lexis Spann MD 11/19/2024 Orders Only GENERIC EXTERNAL DATA DEPARTMENT Provider, Generic External Data 11/17/2024 Telephone [facility] MEDICINE [address] [place] [address] Rianna Solis, RN NTTS from Last 3 Months Immunizations Immunization Administration Dates Next Due DTP 05/12/1997, 4,1992,08/16,1992 Hep A, Adult 03/14/2023,11/10/2017 Hep A, ped/adol, 2 dose 01/06/2012 Hep B, Adolescent or Pediatric 12/22/1995,1994,10/19/1993 Hib ([facility]) 05/14/1993, 3,1992,04/12 IPV 05/12/1997, 4,1992,04/12 Influenza [...] 02/07/2025 2:00 PM EST Office Visit [facility] MEDICINE [address] [place] [address] Cinthya Ray MD [address] [place] [address] 02/15/2025 9:00 AM EST Office Visit [facility] ADULT DENTAL [address] [place] [address] [facility] [address] [place] [address] 02/22/2025 9:00 AM EST Office Visit [facility] ADULT DENTAL [address] [place] [address] [facility] [address] [place] [address] Health Maintenance Due Date Last Done Comments [...] Whole Blood 111 60 - 115 mg/dL [facility] Comment:METER #: [id number] 0Testing performed in the Endocrinology Department [address] , [address], [place]. 12/27/2024 3:10 PM EST 12/27/2024 3:13 PM EST us Generic External Data Provider LAB BLOOD ORDERAB LES Final Result [facility] [address] [place] [address] [phone] * (ABNORMAL) POCT glycosylated hemoglobin (Hgb [...] 11:30 AM EDT) Triglycerides 145 <150 mg/dL [facility] Comment:Desirable Triglyceri de: less than 150 mg/dLBorderline High Triglyceride 150-199 mg/dLHigh Triglyceride: 200-499 mg/dLVery High Triglyceride: greater than or equal to 5OO mg/dL Cholesterol 152 <200 mg/dL [facility] Comment:Desirable Cholestero l: less than 200 mg/dLBorderline High Cholesterol: 200-239 mg/dLHigh Cholesterol: greater than 239 mg/dL LDL Cholesterol Calculated 91 <100 mg/dL [facility] Comment:Desirable LDL: less than 100 mg/dLNear Optimal/Above Optimal LDL: 110- 129 mg/dLBorderline High LDL: 130-159 mg/dLHigh LDL: 160-189 mg/dLVery High LDL: greater than or equal to 190 mg/dL HDL Cholesterol 32(L) >40 mg/dL [facility] Comment:Desirable HDL: great er than 40 mg/dL Note: This HDL assay may give artificially low results in patients with liver disease. Blood 11/26/2023 11:3 0 AM EDT 11/26/2023 1:20 PM EDT us Cinthya Ray MD LAB BLOOD ORDERABLES Final Resul t [facility] [address] [place] [phone] * Hepatitis C Antibody with Reflex to HCV, RNA, Quantitative, Real-Time PCR (11/26/2023 11:30 AM EDT) Hepatitis C Antibody Nonreactive Nonreactive [facility] Comment:Antibodies to HCV no t detected; does not exclude early acuteHCV infection. Blood Venous blood specimen / Unknown 11/26/2023 11:30 AM EDT 11/26/2023 1:20 PM EDT us Cinthya Ray MD LAB BLOOD ORDERABLES Final Resul t Performing Organization Address [facility] de Phone Number [facility] [address] [place] [phone] * HIV-1/2 Antigen and Antibodies, Fourth Generation, with Reflexes (11/26/2023 11:30 AM EDT) HIV AB/AG Nonreactive Nonreactive [facility] Comment:HIV-1 p24 Ag and/or HIV-1/HIV-2 Ab not detected.A test result that is nonreactive does not exclude thepossibility of exposure to or infection with HIV-1 and/orHIV-2. Nonreactive results in this assay for individualswith prior exposure to HIV-1 and/or HIV-2 may be due toantigen and antibody levels that are below the limit ofdetection of this assay.The Vocal[employer] HIV Ag/Ab Combo assay result andsupplemental assay results should be interpreted inconjunction with the patient's clinical presentation,history and other laboratory results. If the results areinconsistent with clinical evidence, additional testing issuggested to confirm the result. Blood Venous blood specimen / Unknown 11/26/2023 11:30 AM EDT 11/26/2023 1:20 PM EDT us Cinthya Ray MD LAB BLOOD ORDERABLES Final Resul t Performing Organization Address [facility] Co de Phone Number [facility] [address] [place] [phone] [phone] * Albumin, Random Urine W/Creatinine (11/26/2023 12:00 AM EDT) Creatinine, Urine 238.24 mg/dL [facility] Microalbumin Urine 23.0 mg/L [facility] Microalbum Creatinine Ratio Ur 9.6 <30 ug/mg cr [facility] Comment:Albumin/Creatinine R atio Reference Ranges: Normal: < 30 ug/mg creatinine Microalbuminuria: 30 - 300 ug/mg creatinineClinical Albuminuria: > 300 ug/mg creatinine Urine 11/26/2023 11/26/2023 Cinthya Ray MD LAB URINE ORDERABLES Final Resul t Performing Organization Address [facility] Co de Phone Number [facility] [address] [place] [address] [phone] * Diabetes Eye Exam (01/24/2023) Eye Exam Normal Normal Comment:[facility] 01/24/2023 Berta Provider HEALTH MAINTENANCE Final Result * THINPREP TIS PAP (07/24/2021 4:01 PM EDT) Clinical Information: None given [facility] COMMENT SEE COMMENT FOUNDATI [...] has been evaluated with computer assisted technology. [facility] Fire Prevention Officer : SEE COMMENT [facility] Comment: MXD, CT (ASCP) CT screening location: [place] [address] Interpretation/R esult: Negative for intraepithelial lesion or [...] R esult [facility] [address] from Last 3 Months or Most Recently Relevant to Health Maintenance Additional Health Concerns Active Problems Noted Date Diagnosed Date Help patients manage their type 2 diabetes 12/28 Patient has chronic kidney disease 12/28/2024 Patient has chronic kidney disease 01/03/2025 Patient has chronic kidney disease 01/05/[address] [place] [address] C3 D[facility]AL-[facility] MEDICAID STAND ADULT Care Teams Agricultural Engineering Technologist Relationship Specialty Start Date End Date Cinthya Ray MD [address] [place] [address] PCP - General Family Medicine 10/23/11
--- OUTSIDE RECORDS SUMMARY | 2025-01-13 08:58 | XMS_ITS | Encounter Summary ---
Author Organization [employer] Address [address] [facility] 7 [place] [address] Care Team Providers Care Satellite Television Installer Name Role Phone Cinthya Ray MD Primary Care Provider [phone] Mayito Acuña PharmD Unavailable [phone] Encounter Details Date Type Department Care Team (Late st Contact Info) Description 01/31/2024 Orders Only [facility] MEDICINE [address] [place], [place] [phone] Cinthya Ray MD [address] [place] [address] Vitamin D deficiency (Primary Dx) Social History [...] 02/07/2025 2:00 PM EST Office Visit [facility] MEDICINE [address] [place] [address] Cinthya Ray MD [address] [place] [address] 02/15/2025 9:00 AM EST Office Visit [facility] ADULT DENTAL [address] [place] [address] Thompson Mcleod [address] [place] [address] 02/22/2025 9:00 AM EST Office Visit [facility] ADULT DENTAL [address] [place] [address] Thompson Mcleod [address] [place] [address] documented as of this encounter Goals Goal [...] documented as of this encounter Care Teams Satellite Television Installer Relationship Specialty Start Date End Date Cinthya Ray MD [address] [place] [address] PCP - General Family Medicine 10/23/11 Mayito Acuña PharmD [address] [place] [phone] Pharmacist Internal Medicine 03/07/23 04/22/24 documented as of this encounter
--- OUTSIDE RECORDS SUMMARY | 2025-01-13 08:59 | XMS_ITS | Encounter Summary ---
Author Organization [employer] Address [address] [place] [address] 7 [place] [address] Care Team Providers Care Recruiter Account Manager Name Role Phone Cinthya Ray MD Primary Care Provider [phone] Mayito Acuña PharmD Unavailable Reason for Visit * Reason Onset Date Comments Appointment Request 09/02/2022 Encounter Details Date Type Department Care Team ([facility] st Contact Info) Description 09/02/2022 Telephone [facility] CHC MED & PEDS [address] [place], [place] [phone] Cinthya Ray MD [address] [place], [place] [phone] Appointment Request Social History Tobacco Use Types [...] her kidney failure.' Please contact pt at [phone] documented in this encounter Plan of Treatment Upcoming Encounters Date Type Department Care Team (Late st Contact Info) Description 02/07/2025 2:00 PM EST Office Visit [facility] MEDICINE [address] [place] [address] Cinthya Ray MD [address] [place] [address] 02/15/2025 9:00 AM EST Office Visit [facility] ADULT DENTAL [address] [place] [address] Shani, Thompson [address] [place] [address] 02/22/2025 9:00 AM EST Office Visit [facility] ADULT DENTAL [address] [place] [address] Shani, Thompson [address] [place] [address] documented as of this encounter Visit Diagnoses Not on filedocumented in this encounter Care Teams Recruiter Account Manager Relationship Specialty Start Date End Date Cinthya Ray MD [address] [place] [address] PCP - General Family Medicine 10/23/11 Mayito Acuña, PharmD [address] [place] [phone] Pharmacist Internal Medicine 03/07/23 04/22/24 documented as of this encounter
--- OUTSIDE RECORDS SUMMARY | 2025-01-13 08:59 | XMS_ITS | Encounter Summary ---
Author Organization [employer] Address [address] [facility] 7 [place] [address] Care Team Providers Care Animal Ride Manager Name Role Phone Cinthya Ray MD Primary Care Provider [phone] Mayito Acuña PharmD Unavailable [phone] Reason for Visit * Reason Onset Date Comments Med Refill 09/29/2023 Encounter Details Date Type Department Care Team (Late st Contact Info) Description 09/29/2023 Refill [facility] CHC MED & PEDS [address] [place], [place] [phone] Cinthya Ray MD [address] [place], [place] [phone] Type 2 diabetes mellitus with hyperglycemia, without long-term current use of insulin ([facility]) Social History Tobacco [...] 02/07/2025 2:00 PM EST Office Visit [facility] MEDICINE [address] [place] [address] Cinthya Ray MD [address] [place] [address] 02/15/2025 9:00 AM EST Office Visit [facility] ADULT DENTAL [address] [place] [address] Rhona Mcleodricio [address] [place] [address] 02/22/2025 9:00 AM EST Office Visit [facility] ADULT DENTAL [address] [place] [address] Shani, Thompson [address] [place] [address] documented as of this encounter Goals Goal [...] as of this encounter Care Teams Animal Ride Manager Relationship Specialty Start Date End Date Cinthya Ray MD [address] [place] [address] PCP - General Family Medicine 10/23/11 Mayito Acuña PharmD [address] [place] [phone] Pharmacist Internal Medicine 03/07/23 04/22/24 documented as of this encounter
--- OUTSIDE RECORDS SUMMARY | 2025-01-13 08:59 | XMS_ITS | Encounter Summary ---
Author Organization [employer] Address [address] [place] [address] 7 [place] [address] Care Team Providers Care Flex O Writer Operator Name Role Phone Cinthya Ray MD Primary Care Provider [phone] Reason for Visit * Reason Comments Med Change Request Encounter Details Date Type Department Care Team ([facility] st Contact Info) Description 07/20/2024 Refill [facility] MEDICINE [address] [place], [place] [phone] Cinthya Ray MD [address] [place] [address] Type 2 diabetes mellitus with hyperglycemia, with long-term current use of insulin ([facility]) Social History Tobacco Use Types Packs/Day [...] 2:00 PM EST Office Visit [facility] MEDICINE [address] [place] [address] Cinthya Ray MD [address] [place] [address] 02/15/2025 9:00 AM EST Office Visit [facility] ADULT DENTAL [address] [place] [address] Thompson Mcleod [address] [place] [address] 02/22/2025 9:00 AM EST Office Visit [facility] ADULT DENTAL [address] [place] [address] Thompson Mcleod [address] [place] [address] documented as of this encounter Goals Goal [...] documented as of this encounter Care Teams Flex O Writer Operator Relationship Specialty Start Date End Date Cinthya Ray MD [address] [place] [address] PCP - General Family Medicine 10/23/11 documented as of this encounter
--- OUTSIDE RECORDS SUMMARY | 2025-01-13 08:59 | XMS_ITS | Clinical Summary ---
Author Organization [facility] Address [address] [place] [address] Phone Care Team Providers Care Electrical Engineering Manager Name Role Phone Unavailable Primary Care Provider Unavailabl e Allergies No known active allergies Medical History Medical History Date Comments Diabetes mellitus ([facility] V24, [facility] V28) Social History Tobacco Use [...]
--- OUTSIDE RECORDS SUMMARY | 2025-01-13 08:59 | XMS_ITS | Encounter Summary ---
Author Organization [employer] Address [address] [place] [address] 7 [place] [address] Care Team Providers Care Power Plant Operations Manager Name Role Phone Cinthya Ray MD Primary Care Provider [phone] Mayito Acuña PharmD Unavailable [phone] Reason for Visit * Reason Onset Date Comments Med Refill 11/02/2023 Encounter Details Date Type Department Care Team (Late st Contact Info) Description 11/02/2023 Refill [facility] [address] [place], [place] [phone] Cinthya Ray MD [address] [place], [place] [phone] Social History Tobacco Use Types Packs/Day Years [...] but unableto make. Pt will come to [facility] today open till 8pm. Pt reports [...] Gill Sent: 11/10/2023 5:32 PM EDT To: [facility] Front Office Subject: Appointment Request Appointment Request From: Sonali Rosa With Provider: Cinthya Ray MD [[facility]] Preferred Date Range: 11/11/2023 - [...] Description 02/07/2025 2:00 PM EST Office Visit [facility] [address] [place] [address] Cinthya Ray MD [address] [place] [address] 02/15/2025 9:00 AM EST Office Visit [facility] [address] [place] [address] [facility] [address] [place] [address] 02/22/2025 9:00 AM EST Office Visit [facility] [address] [place] [address] [facility] [address] [place] [address] documented as of this encounter Goals Goal [...] documented as of this encounter Care Teams Power Plant Operations Manager Relationship Specialty Start Date End Date Cinthya Ray MD [address] [place] [address] PCP - General Family Medicine 10/23/11 Mayito Acuña, DyanD [address] [place] [address] Pharmacist Internal Medicine 03/07/23 04/22/24 documented as of this encounter
--- OUTSIDE RECORDS SUMMARY | 2025-01-13 08:59 | XMS_ITS | Encounter Summary ---
Author Organization [employer] Address [address] [facility] 7 [place] [address] Care Team Providers Care Chief General Pediatric [facility] Name Role Phone Cinthya Ray MD Primary Care Provider Mayito Acuña PharmD Unavailable [phone] Reason for Visit * Reason Onset Date Comments Med Refill 11/02/2023 Encounter Details Date Type Department Care Team (Late st Contact Info) Description 11/02/2023 Refill [facility] [address] [place], [place] [phone] Cinthya Ray MD [address] [place], [place] [phone] Type 2 diabetes mellitus with hyperglycemia, without long-term current use of insulin ([facility]) Social History Tobacco Use Types [...] Description 02/07/2025 2:00 PM EST Office Visit [facility] [address] [place] [address] Cinthya Ray MD [address] [place] [address] 02/15/2025 9:00 AM EST Office Visit [facility] [address] [place] [address] Shani, Thompson 505 [place] [address] 02/22/2025 9:00 AM EST Office Visit [facility] [address] [place] [address] Shani, Thompson [address] [place] [address] documented as of this encounter Goals Goal [...] as of this encounter Care Teams Chief General Pediatric Clinic Relationship Specialty Start Date End Date Cinthya Ray MD [address] [place] [address] PCP - General Family Medicine 10/23/11 Mayito Acuña PharmD [address] [place] [address] Pharmacist Internal Medicine 03/07/23 04/22/24 documented as of this encounter
--- OUTSIDE RECORDS SUMMARY | 2025-01-13 08:59 | XMS_ITS | Encounter Summary ---
Author Organization [employer] Address [address] [place] [address] 7 [place] [address] Care Team Providers Care Audio Visual Facilities Engineer Name Role Phone Cinthya Ray MD Primary Care Provider [phone] Mayito Acuña PharmD Unavailable [phone] Reason for Visit * Reason Comments Med Refill Encounter Details Date Type Department Care Team (Late st Contact Info) Description 08/31/2022 Refill [facility] [address] [place] [address] Starla Nuñez MD [address] [place], [place] [phone] Injury of head, initial encounter Social History [...] Description 02/07/2025 2:00 PM EST Office Visit [facility] [address] [place] [address] Cinthya Ray MD [address] [place] [address] 02/15/2025 9:00 AM EST Office Visit [facility] [address] [place] [address] Rhona Mcleodricio 505 [place] [address] 02/22/2025 9:00 AM EST Office Visit [facility] [address] [place], [place] [phone] Rhona Mcleodricio [address] [place] [address] documented as of this encounter Visit Diagnoses Diagnosis Injury of head, initial encounter documented in this encounter Care Teams Audio Visual Facilities Engineer Relationship Specialty Start Date End Date Cinthya Ray MD [address] [place] [address] PCP - General Family Medicine 10/23/11 Mayito Acuña, Citlali [address] [place] [address] Pharmacist Internal Medicine 03/07/23 04/22/24 documented as of this encounter
== END 2025-01-11 09:49 | disposition home or self-care (01) ==
LOC: HO.LNP 09:48
PROVIDERS: PCP Family Medicine; Visit Provider Nurse Practitioner
DX: K22.70 Barrett's esophagus without dysplasia (principal); K91.5 Postcholecystectomy syndrome
CPT/HCPCS: 83013; 99212

== ENCOUNTER 2025-01-11 09:48 | Outpatient (AMB) | payer MEDICAID, SELFPAY ==
[2025-01-11 09:54] VITALS: BP 95/54; PULSE 97; BMI 34.2
--- NOTE | 2025-01-11 09:54 | A.OFFVIS_ITS ---
Vital Signs 01/11/25 09:54 Height 5 ft 2 in Weight 187 lb BMI 34.2 BP 95/54 L Blood Pressure Location Rt brachial Position Sitting Pulse 97 Intake Visit Reasons: f/u gerd Intake Note: Sonali AVALOS: Patient reports that she ran out of med about 6 months ago and her GI symptoms had gotten worse. She c/o feeling like the food stays stuck and does not goes down and foul smell with burping. She also c/o epigastric pain, nausea, vomiting, and acid reflux. She states that the vomiting is mostly because of the Mounjaro but before starting it she felt nauseous. She also c/o diarrhea. Patient states that she would like to check for bacteria. Card Hanger Required: No Accompanied by: Self / Same As Patient Allergies Seasonal Allergies Allergy (Mild, Verified 01/11/25 10:00) Runny Nose No Known Drug Allergies Allergy (Unknown, Verified 01/11/25 10:00) none HPI HPI f/u gerd: Details: Assessment & Plan (1) 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: Code(s): K22.70 - Sen's esophagus without dysplasia Category: Medical (2) Dysphagia: Code(s): R13.10 - Dysphagia, unspecified Category: Medical (3) GERD (gastroesophageal reflux disease): Code(s): K21.9 - Gastro-esophageal reflux disease without esophagitis Category: Medical (4) Post-cholecystectomy syndrome: Code(s): K91.5 - Postcholecystectomy syndrome Category: Medical Plan She tolerated the procedure well. She was not taking the sucralfate at all, and I explain again that the carafate liquid is for the diarrhea and this will also help if bile reflux is a part of the problem. She was changed from o2o to pantoprazole by the endoscopist and she is taking this. Her swallowing is improved. Will repeat the EGD in 2 years. ROV 8 weeks. Medications: Refilled pantoprazole 40 mg PO DAILY 30 tabs 6RF Discontinued omeprazole Discontinued Reason: Doctor's Order 20 mg PO QAM 30 caps 6RF LABS: Laboratory Tests 08/23/24 10:50 WBC 7.5 Hgb 11.1 L Hct 34.3 L MCV 73.6 L MCH 23.8 L Plt Count 291 Estimated GFR > 60 Total Bilirubin 0.3 Direct Bilirubin < 0.1 AST 25 ALT 18 Alkaline Phosphatase 83 TODAY'S VISIT [facility] Medical History (Updated 01/11/25 @ 10:33 by MICHELLE Wilkerson) Left shoulder pain Obesity Fatty liver GERD (gastroesophageal reflux disease) Anxiety Depression Insulin dependent type 2 diabetes mellitus Migraines BMI 32.0-32.9,adult Gallstones Body mass index (BMI) of 38.0 to 38.9 in adult Surgical History Hx of shoulder surgery History of esophagogastroduodenoscopy (EGD) History of cholecystectomy H/O tubal ligation History of surgery on wrist Hx of section Family History Father HTN (hypertension) Mother No problems noted. Sister Arthritis Knee problem Sister Arthritis Allergies Knee problem Brother No problems noted. Brother No problems noted. Son No problems noted. Son Autism Family/Other Breast cancer Social History Household Members Other:: minor children Are you a primary career technology teacher to a significant other at home: Yes Do you presently have visiting nurse or other home services: No Alcohol intake: never Comment: counts correct Patient Tobacco Use Status: Never used Tobacco Current occupation: rt handed Review of Systems Const Denies fatigue, Denies fever(s), Denies night sweats, Denies poor appetite and Denies weight loss ENT Reports Normal hearing present, Denies dental pain, Reports dysphagia, Reports dizziness, Denies hearing loss, Denies mouth pain, Denies odynophagia, Denies throat swelling, Denies tongue swelling and Reports other (Dentition adequate) Card Reports syncope and Reports lightheadedness Resp Reports no additional complaints GI Details: Denies abdominal pain, Denies melena, Denies bloating, Denies hematochezia, Denies constipation, Denies GI cramping, Reports dysphagia, Denies excessive flatus, Denies early satiety, Reports heartburn, Reports diarrhea, Denies nausea, Denies odynophagia, Denies vomiting and Denies hematemesis Skin/Breast Denies pruritus, Denies lesions, Denies rash and Denies jaundice Neuro Reports Normal hearing present, Denies Abnormal speech present, Reports dizziness and Reports syncope Endo Denies fatigue Aller/Immun Denies throat swelling and Denies tongue swelling Physical Exam Vital Signs: Last Vital Signs Pulse 97 01/11/25 09:54 BP 95/54 L 01/11/25 09:54 BMI result Body Mass Index 34.2 Const General: cooperative, no acute distress, well developed and well groomed Nutritional Appearance: well nourished and obese Orientation/consciousness: oriented to person, oriented to place and oriented to time Limitations: No language barrier HEENT Head: Yes normocephalic and Yes atraumatic Eyes General: appearance normal, both eyes and all related structures Pupils: Equal, round and reactive pupils present Neck Neck: Yes normal visual inspection and Yes no lymphadenopathy Thyroid: Thyroid normal Resp Effort & Inspection: normal respiratory effort and able to speak in complete sentences Auscultation: clear to auscultation bilaterally Cardio Rate: regular rate Rhythm: regular rhythm Heart sounds: Normal, physiologic split S2 sound present Peripheral pulses: radial pulses present and posterior tibial pulses present GI Inspection: No distended, No Abdominal panniculus present and Yes obesity Palpation (GI): Soft to palpation, nontender, no guarding, not rigid and No hepatosplenomegaly present Percussion: Yes normal to percussion Auscultation: normal bowel sounds Rectal Exam - Female: deferred Skin General skin exam: no rashes or lesions noted, turgor normal, skin not dry, no jaundice, No spider nevi and no striae Rashes: no rashes Nails: normal Neuro General: oriented to person, oriented to place and oriented to time Cranial nerves: Yes Equal, round and reactive pupils present and Yes Normal hearing present Speech: No Abnormal speech present Extrem General: Yes normal to inspection, No clubbing, No cyanosis and No edema Psych Appearance: grossly normal and well kempt Mental Status: mental status grossly normal Speech and movement: Normal speech and movement present Affect: normal affect Attitude: cooperative Thought process: Normal thought process present and not confabulating Thought content: Normal thought content present Insight: Fair insight present (Psych) Judgement: Fair judgement present (Psych) Assessment & Plan Assessment & Plan (1) 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: Code(s): K22.70 - Sen's esophagus without dysplasia Category: Medical (2) Erosive esophagitis: Code(s): K22.10 - Ulcer of esophagus without bleeding Category: Medical (3) Post-cholecystectomy syndrome: Code(s): K91.5 - Postcholecystectomy syndrome Category: Medical Plan Subjective Patient presents for worsening gastrointestinal symptoms. Reports persistent diarrhea and a sensation of food ?stuck? mid-sternally with foul, ?rotten food? burping. Symptoms have progressed since being off pantoprazole for approximately six months pending visit to renew prescriptions. Previously took sucralfate without benefit and with poor palatability. Notes intolerance to eggs recently. History notable for Sen?s esophagus and cholecystectomy; I discussed suspected bile reflux/bile gastritis post-cholecystectomy contributing to current symptoms and diarrhea. Diabetes reported as under control. Reports chronically low blood pressure with frequent dizziness and one prior syncopal episode. Currently on Mounjaro, which may slow gastric emptying and exacerbate reflux; not planning to discontinue. Relevant Past Medical, Social, and Family History - Sen?s esophagus - Cholecystectomy - Type 2 diabetes mellitus (on Mounjaro) - Chronic low blood pressure with dizziness and a prior single syncopal episode - Remote history of asthma Objective - Prior pathology negative for H. pylori Assessment & Plan GERD with Sen?s esophagus; erosive esophagitis; suspected bile reflux/bile gastritis post-cholecystectomy with associated diarrhea and dyspepsia/dysphagia symptoms: Clinical picture consistent with bile-mediated reflux and gastritis following cholecystectomy, with ongoing reflux symptoms and diarrhea; prior H. pylori pathology negative. - Restart pantoprazole; attempt dosing twice daily, pending insurance coverage - Begin cholestyramine powder twice daily mixed with a small amount of juice (prefer lower-sugar options); if constipation occurs, reduce to once daily; if partial improvement, consider dose increase - Order and schedule surveillance upper endoscopy (due next year for Sen?s); surgical scheduling to contact patient - Perform H. pylori breath test today - Counselled that GLP-1 therapy (Mounjaro) may slow gastric emptying and worsen reflux; continue medication and manage around effects - Follow up in 8 weeks to reassess response and adjust therapy Chronic low blood pressure with dizziness and prior syncope; suspected autonomic/neurally mediated hypotension: Patient reports frequent dizziness and one syncopal event. Negative Checker has advised increased salt intake and deferred medications currently due to age and potential metabolic considerations. - Continue salt intake increase per cardiology guidance - I will review current guidance on evaluation (including tilt table testing) and management options (e.g., fludrocortisone) and provide education. - Continue cardiology follow-up as scheduled on 02/07 Orders: Orders H Pylori Breath Test Today Referrals GI Procedure Notification K22.70 - Sen's esophagus without dysplasia Medications: New cholestyramine administer w/meal; avoid other meds within 1hr before or 4-6hr after dose 4 grams PO BID 60 ea 6RF K91.5 - Postcholecystectomy syndrome Changed From pantoprazole 40 mg PO DAILY 30 tabs 6RF K22.10 - Ulcer of esophagus without bleeding, K22.70 - Sen's esophagus without dysplasia To pantoprazole 40 mg PO BID 60 tabs 3RF K22.10 - Ulcer of esophagus without bleeding, K22.70 - Sen's esophagus without dysplasia Coding Level of Care Code Est Pt Level 4 (85945) Diagnoses 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 K22.70 Erosive esophagitis K22.10 Post-cholecystectomy syndrome K91.5 Time Spent (min) 37
--- OUTSIDE RECORDS SUMMARY | 2025-01-11 10:53 | XMS_ITS | Encounter Summary ---
Author Organization [employer] Address [address] [facility] 7 [place] [address] Care Team Providers Care Carbider Name Role Phone Cinthya Ray MD Primary Care Provider [phone] Encounter Details Date Type Department Care Team ([facility] st Contact Info) Description 06/09/2024 Orders Only [facility] [address] [place], [place] [phone] Abigail Darling CNM [address] [place] [address] Social History Tobacco Use Types Packs/Day Years [...] Care Team (Late st Contact Info) Description 02/07/2025 2:00 PM EST Office Visit [facility] [address] [place] [address] Cinthya Ray MD [address] [place] [address] 02/15/2025 9:00 AM EST Office Visit [facility] ADULT DENTAL [address] [place] [address] Shani, Thompson [address] [place] [address] 02/22/2025 9:00 AM EST Office Visit [facility] [address] [place] [address] Shani, Thompson [address] [place] [address] documented as of this encounter Goals Goal Patient Goal Type Associated Problems Recent Progress Patient-Stated? Author Blood Pressure < 140/90 Blood Pressure 112/74(2024 8:14 AM EST) No Mayito Acuña, PharmD Hemoglobin A1c < 7 Result Component 6.5( 5 3:35 PM EDT) No Mayito Acuña, PharmD documented as of this encounter Visit Diagnoses Not on filedocumented in this encounter Additional Health Concerns Assessment Noted Time PHQ-9 Depression Total Score: 14 025 3:57 PM EDT documented as of this encounter Care Teams Carbider Relationship Specialty Start Date End Date Cinthya Ray MD [address] [place] [address] PCP - General Family Medicine 10/23/11 documented as of this encounter
--- OUTSIDE RECORDS SUMMARY | 2025-01-11 10:53 | XMS_ITS | Encounter Summary ---
Author Organization [employer] Address [address] [place] [address] Care Team Providers Care Bank Operations Officer Name Role Phone Cinthya Ray MD Primary Care Provider [phone] Reason for Referral * Consultation (Routine) - Closed Specialty Diagnoses / Procedures Referred By Contac t Referred To Contact Cardiology Diagnoses Hypotension, unspecified hypotension type Cinthya Ray MD [address] [place] [address] Phone: tel: fax: [facility] Referral ID Status Reason Start Date Expiration Date V isits Requested Visits Authorized [id number] Closed Specialty Services Required 07/09/2024 07/09/2025 6 6 Encounter Details Date Type Department Care Team (Late st Contact Info) Description 07/09/2024 Orders Only [facility] [address] [place], [place] [phone] Cinthya Ray MD [address] [place], [place] [phone] Hypotension, unspecified hypotension type (Primary Dx) Social [...] Description 02/07/2025 2:00 PM EST Office Visit [facility] [address] [place] [address] Cinthya Ray MD [address] [place] [address] 02/15/2025 9:00 AM EST Office Visit [facility] [address] [place], [place] [phone] Thompson Mcleod [address] [place] [address] 02/22/2025 9:00 AM EST Office Visit [facility] [address] [place] [address] Thompson Mcleod [address] [place] [address] Scheduled Referrals Name Type Priority Associated Diagnoses Orde r Schedule Referral to Cardiology Outpatient Referral Routine Hypotension, unspecified hypotension type Expected: 07/09/2024 (Approximate), Expires: 07/09/2025 documented as of this encounter Goals Goal Patient Goal Type Associated Problems Recent Progress Patient-Stated? Author Blood Pressure < 140/90 Blood Pressure 112/74(2024 8:14 AM EST) No Mayito Acuña, DyanD Hemoglobin A1c < 7 Result Component 6.5( 3:35 PM EDT) No Mayito Acuña PharmD documented as of this encounter Visit Diagnoses Diagnosis Hypotension, unspecified hypotension type- Primary documented in this encounter Additional Health Concerns Assessment Noted Time PHQ-9 Depression Total Score: 14 025 3:57 PM EDT documented as of this encounter Care Teams Bank Operations Officer Relationship Specialty Start Date End Date Cinthya Ray MD [address] [place] [address] PCP - General Family Medicine 10/23/11 documented as of this encounter
--- OUTSIDE RECORDS SUMMARY | 2025-01-11 10:53 | XMS_ITS | Encounter Summary ---
Author Organization [employer] Address [address] [place] [address], [place] [address] Care Team Providers Care Gang Mower Operator Name Role Phone Cinthya Ray MD Primary Care Provider [phone] Mayito Acuña PharmD Unavailable [phone] Reason for Referral * Consultation (Urgent) - Closed Specialty Diagnoses / Procedures Referred By Contac t Referred To Contact Endocrinology Diagnoses Type 2 diabetes mellitus with hyperglycemia, with long-term current use of insulin (HCC) Cinthya Ray MD [address] [place] [address] Phone: tel: fax: [facility] Endocrinology [address] [place] [address] Phone: tel: fax: Referral ID Status Reason Start Date Expiration Date V isits Requested Visits Authorized [id number] Closed Specialty Services Required 04/19/2024 04/19/2025 12 12 Encounter Details Date Type Department Care Team (Late st Contact Info) Description 04/19/2024 Orders Only [facility] [address] [place] [address] Cinthya Ray MD [address] [place] [address] Type 2 diabetes mellitus with hyperglycemia, with [...] Upcoming Encounters Date Type Department Care Team ([facility] st Contact Info) Description 02/07/2025 2:00 PM EST Office Visit [facility] [address] [place] [address] Cinthya Ray MD [address] [place] [address] 02/15/2025 9:00 AM EST Office Visit [facility] ADULT DENTAL [address] [place] [address] Thompson Mcleod [address] [place], [place] 02/22/2025 9:00 AM EST Office Visit [facility] ADULT D[facility] [address] [place] [address] Thompson Mcleod [address] [place], [place] Pending Results Name Type Priority Associated Diagnoses Date /Time Referral to Endocrinology Outpatient Referral Urgent Type 2 diabetes mellitus with hyperglycemia, with long-term current use of insulin ([facility]) 04/30/2024 Scheduled Referrals Name Type Priority Associated Diagnoses Order Schedule Referral to Endocrinology Outpatient Referral Urgent Type 2 diabetes mellitus with hyperglycemia, with long-term current use of insulin ([facility]) Expected: 04/19/2024 (Approximate), Expires: 04/19/2025 documented as of this encounter Goals Goal Patient Goal Type Associated Problems Recent Progress Patient-Stated? Author Blood Pressure < 140/90 Blood Pressure 112/74(2024 8:14 AM EST) No Mayito Acuña, Citlali Hemoglobin [...] documented as of this encounter Care Teams Gang Mower Operator Relationship Specialty Start Date End Date Cinthya Ray MD [address] [place] [address] PCP - General Family Medicine 10/23/11 Mayito Acuña, DyanD [address] [place] [address] Pharmacist Internal Medicine 03/07/23 04/22/24 documented as of this encounter
--- OUTSIDE RECORDS SUMMARY | 2025-01-11 10:53 | XMS_ITS | Encounter Summary ---
Author Organization [employer] Address [address] [place] [address] Care Team Providers Care Paper Cleaner Name Role Phone Cinthya Ray MD Primary Care Provider [phone] Mayito Acuña PharmD Unavailable [phone] Encounter Details Date Type Department Care Team (Late st Contact Info) Description 02/26/2022 Abstract [facility] [address] [place] [address] [phone] Cinthya Ray MD [address] [place] [phone] Social History Tobacco Use Types Packs/Day Years [...] Description 02/07/2025 2:00 PM EST Office Visit [facility] [address] [place] [phone] Cinthya Ray MD [address] [place], [place] [phone] 02/15/2025 9:00 AM EST Office Visit [facility] [address] [place] [address] Tony Mcleodio [address] [place] [address] 02/22/2025 9:00 AM EST Office Visit [facility] [address] [place] [address] Tony Mcleodio [address] [place] [address] documented as of this encounter Visit Diagnoses Not on filedocumented in this encounter Care Teams Paper Cleaner Relationship Specialty Start Date End Date Cinthya Ray MD [address] [place] [address] PCP - General Family Medicine 10/23/11 Mayito Acuña, DyanD [address] [place] [address] Pharmacist Internal Medicine 03/07/23 04/22/24 documented as of this encounter
--- OUTSIDE RECORDS SUMMARY | 2025-01-11 10:53 | XMS_ITS | Encounter Summary ---
Author Organization [employer] Address [address] [facility] 7 [place] [address] Care Team Providers Care Tester Waste Disposal Leakage Name Role Phone Cinthya Ray MD Primary Care Provider [phone] Reason for Visit * Reason Onset Date Comments Med Refill 06/18/2024 Encounter Details Date Type Department Care Team (Late st Contact Info) Description 06/18/2024 Refill [facility] [address] [place] [address] Cinthya Ray MD [address] [place] [address] Injury of head, initial encounter Social History [...] Description 02/07/2025 2:00 PM EST Office Visit [facility] [address] [place] [address] Cinthya Ray MD [address] [place] [address] 02/15/2025 9:00 AM EST Office Visit [facility] ADULT DENT[facility] [address] [place] [address] Thompson Mcleod [address] [place] [address] 02/22/2025 9:00 AM EST Office Visit [facility] ADULT DENTAL [address] [place] [address] Thompson Mcleod [address] [place] [address] documented as of this encounter Goals Goal Patient Goal Type Associated Problems Recent Progress Patient-Stated? Author Blood Pressure < 140/90 Blood Pressure 112/74(2024 8:14 AM EST) No Mayito Acuña PharmD Hemoglobin A1c < 7 Result Component 6.5( 3:35 PM EDT) No Mayito Acuña PharmD documented as of this encounter Visit Diagnoses Diagnosis Injury of head, initial encounter documented in this encounter Additional Health Concerns Assessment Noted Time PHQ-9 Depression Total Score: 14 025 3:57 PM EDT documented as of this encounter Care Teams Tester Waste Disposal Leakage Relationship Specialty Start Date End Date Cinthya Ray MD [address] [place] [address] PCP - General Family Medicine 10/23/11 documented as of this encounter
--- OUTSIDE RECORDS SUMMARY | 2025-01-11 10:54 | XMS_ITS | Encounter Summary ---
Author Organization [employer] Address [address] [facility] 7 [place] [address] Care Team Providers Care Human Resource Officer Name Role Phone Cinthya Ray MD Primary Care Provider [phone] Reason for Visit * Reason Comments Med Refill Encounter Details Date Type Department Care Team ([facility] st Contact Info) Description 11/23/2024 Refill [facility] [address] [place] [address] [phone] Lexis Spann MD [address] [place], [place] [phone] Social History Tobacco Use Types Packs/Day Years [...] Description 02/07/2025 2:00 PM EST Office Visit [facility] [address] [place] [address] Cinthya Ray MD [address] [place] [address] 02/15/2025 9:00 AM EST Office Visit [facility] ADULT DENT[facility] [address] [place] [address] Shani Thompson [address] [place] [address] 02/22/2025 9:00 AM EST Office Visit [facility] [address] [place] [address] Shani Thompson [address] [place] [address] documented as of this encounter Goals Goal [...] as of this encounter Care Teams Human Resource Officer Relationship Specialty Start Date End Date Cinthya Ray MD [address] [place] [address] PCP - General Family Medicine 10/23/11 documented as of this encounter
--- OUTSIDE RECORDS SUMMARY | 2025-01-11 10:54 | XMS_ITS | Encounter Summary ---
Author Organization [employer] Address [address] [facility] 7 [place] [address] Care Team Providers Care Division Sergeant Name Role Phone Cinthya Ray MD Primary Care Provider [phone] Mayito Acuña PharmD Unavailable [phone] Encounter Details Date Type Department Care Team (Late st Contact Info) Description 01/31/2024 Orders Only [facility] [address] [place], [place] [phone] Cinthya Ray MD [address] [place] [address] Vitamin D deficiency (Primary Dx) Social History [...] Description 02/07/2025 2:00 PM EST Office Visit [facility] [address] [place] [address] Cinthya Ray MD [address] [place] [address] 02/15/2025 9:00 AM EST Office Visit [facility] ADULT DENT[facility] [address] [place] [address] Thompson Mcleod [address] [place] [address] 02/22/2025 9:00 AM EST Office Visit [facility] [address] [place] [address] Thompson Mcleod [address] [place] [address] documented as of this encounter Goals Goal [...] documented as of this encounter Care Teams Division Sergeant Relationship Specialty Start Date End Date Cinthya Ray MD [address] [place] [address] PCP - General Family Medicine 10/23/11 Mayito Acuña PharmD [address] [place] [phone] Pharmacist Internal Medicine 03/07/23 04/22/24 documented as of this encounter
--- OUTSIDE RECORDS SUMMARY | 2025-01-11 10:54 | XMS_ITS | Encounter Summary ---
Author Organization [employer] Address [address] [place] [address] Care Team Providers Care Railway Track Plant Operator Name Role Phone Cinthya Ray MD Primary Care Provider [phone] Mayito Acuña PharmD Unavailable [phone] Reason for Referral * Consultation (Routine) - Closed Specialty Diagnoses / Procedures Referred By Ramya waller Referred To Contact Orthopaedic Surgery Diagnoses Chronic left shoulder pain Cinthya Ray MD [address] [place] [place] [address] Phone: tel: fax: [facility] [address] [place] [address] [place] [phone] Phone: tel: Referral ID Status Reason Start Date Expiration Date V isits Requested Visits Authorized [id number] Closed Specialty Services Required 02/05/2024 02/04/2025 6 6 Encounter Details Date Type Department Care Team (Late st Contact Info) Description 02/05/2024 Orders Only [facility] MEDICINE [address] [place], [place] [phone] Cnithya Ray MD [address] [place], [place] [phone] Chronic left shoulder pain (Primary Dx) Social [...] Description 02/07/2025 2:00 PM EST Office Visit [facility] MEDICINE [address] [place] [address] Cinthya Ray MD [address] [place] [address] 02/15/2025 9:00 AM EST Office Visit [facility] ADULT DENTAL [address] [place] [address] [facility] 505 [place] [address] 02/22/2025 9:00 AM EST Office Visit [facility] ADULT DENTAL [address] [place] [address] [facility] [address] [place] [address] Scheduled Referrals Name Type Priority Associated Diagnoses [...] documented as of this encounter Care Teams Railway Track Plant Operator Relationship Specialty Start Date End Date Cinthya Ray MD [address] [place] [address] PCP - General Family Medicine 10/23/11 Mayito Acuña, PharmD [address] [place] [address] Pharmacist Internal Medicine 03/07/23 04/22/24 documented as of this encounter
--- OUTSIDE RECORDS SUMMARY | 2025-01-11 10:54 | XMS_ITS | Encounter Summary ---
Author Organization [employer] Address 75 [facility] 7 [place] [address] Care Team Providers Care Scrap Metal Burner Name Role Phone Cinthya Ray MD Primary Care Provider [phone] Mayito Acuña PharmD Unavailable [phone] Encounter Details Date Type Department Care Team (Late st Contact Info) Description 06/30/2023 Orders Only [facility] MEDICINE [address] [place], [place] [phone] Mayito Acuña, PharmD [address] [place] [address] Type 2 diabetes mellitus with hyperglycemia, with long-term current use of insulin ([facility]) (Primary Dx) Social History Tobacco Use Types [...] Description 02/07/2025 2:00 PM EST Office Visit [facility] MEDICINE 230 [place] [address] Cinthya Ray MD [address] [place] [address] 02/15/2025 9:00 AM EST Office Visit [facility] ADULT DENTAL 505 [place] [address] [facility], [facility] [address] [place] [address] 02/22/2025 9:00 AM EST Office Visit [facility] ADULT DENTAL [address] [place] [address] [facility], [facility] [address] [place] [address] documented as of this encounter Goals Goal Patient Goal Type Associated Problems Recent Progress Patient-Stated? Author Blood Pressure < 140/90 Blood Pressure 112/74(2024 8:14 AM EST) No Mayito Acuña, Citlali Hemoglobin A1c < 7 Result Component 6.5( 3:35 PM EDT) Mayito Rodriguez PharmD documented as of this encounter Procedures Procedure Name Priority Date/Time Associated Diagnosis Comments HEMATOXYLIN AND EOSIN STAIN Routine 06/30/2023 12:47 PM EDT Type 2 diabetes mellitus with hyperglycemia, with long-term current use of insulin ([facility]) documented in this encounter Results * Hematoxylin and Eosin Stain (06/30/2023 12:47 PM EDT) 06/30/2023 12:4 7 PM EDT 06/30/2023 1:27 PM EDT [facility] LABS - 07/02/2023 9:30 AM EDT ----- ------- Name: Sonali Gill Age/Sex: 33/F : 1990 Unit#: [id number] Attend Dr: Jose Figueroa MD Re06/30/23 Status: [facility] Location: [facility] Disch: ----- ------- SPEC : [id number] RECD: 06/30/23 STATUS: TRUNG DEAN NUM: [id number] MELANIA: 06/30/23-[address]: Jose Figueroa MD ENTERED: 06/30/23 SP TYPE: Surgical OTHR DR: Cinthya Ray [...] PAGE ----- ------- Name: Sonali Gill Age/Sex: / [facility] 1990 [id number]#: [id number] Attend Dr: Jose Figueroa MD Re06/30/23 Status: [facility] Location: [facility] Disch: ----- ------- SPEC : [id number] RECD: 06/30/23 STATUS: TRUNG DEAN NUM: [id number] MELANIA: 06/30/[address] [facility] [address]: Jose Figueroa MD ENTERED: 06/30/23 SP TYPE: Surgical OTHR DR: Cinthya Ray [...] on A-C Copies To: Jose Figueroa MD [address] [place] [address] [place], [place] [id number] Cinthya Ray MD [address] [place] [phone] ----- ------- Signed (signature on file) Esa Aguiar MD 07/02/23 0930 ----- ------- END OF REPORT us Generic External Data Provider LAB BLOOD ORDERAB LES Final Result [facility] [address] [place] [address] [phone] documented in this encounter Visit Diagnoses Diagnosis Type 2 diabetes mellitus with hyperglycemia, with long-term current use of insulin (HCC)- Primary documented in this encounter Additional Health Concerns Assessment Noted Time PHQ-9 Depression Total Score: 0 06/10/19 24 2:55 PM EDT documented as of this encounter Care Teams Scrap Metal Burner Relationship Specialty Start Date End Date Cinthya Ray MD [address] [place] [address] PCP - General Family Medicine 10/23/11 Mayito Acuña, DyanD [address] [place] [address] Pharmacist Internal Medicine 03/07/23 04/22/24 documented as of this encounter
--- OUTSIDE RECORDS SUMMARY | 2025-01-11 10:54 | XMS_ITS | Encounter Summary ---
Author Organization [employer] Address [address] [place] [address] Care Team Providers Care Claims Adjuster Supervisor Name Role Phone Cinthya Ray MD Primary Care Provider [phone] Reason for Visit * Reason Onset Date Comments Appointment Request 12/28/2024 Encounter Details Date Type Department Care Team ([facility] st Contact Info) Description 12/28/2024 Telephone [facility] MEDICINE [address] [place], [place] [phone] Cinthya Ray MD [address] [place], [place] [phone] Appointment Request Social History Tobacco Use Types [...] the past 12 months, has t he [employer], gas, oil or water company threatened to [...] encounter Miscellaneous Notes * Telephone Encounter - Tien Rosa - 12/28/2024 2:49 PM EST Tc from pt requesting a call back to schedule an appointment with pcp, stated no immediate concerns. Printing Pressman unable to schedule due to limited availability. Please contact pt at [phone]. documented in this encounter Plan of Treatment Upcoming Encounters Date Type Department Care Team ([facility] st Contact Info) Description 02/07/2025 2:00 PM EST Office Visit [facility] MEDICINE [address] [place] [address] Cinthya Ray MD 230 [place] [address] 02/15/2025 9:00 AM EST Office Visit [facility] ADULT D[facility]AL [address] [place] [address] [facility] [address] [place] [address] 02/22/2025 9:00 AM EST Office Visit [facility] ADULT DENTAL 505 [place] [address] [facility] [address] [place] [address] documented as of this encounter Goals Goal Patient Goal Type Associated Problems Recent Progress Patient-Stated? Author Blood Pressure < 140/90 Blood Pressure 112/74(2024 8:14 AM EST) No Mayito Acuña PharmD Hemoglobin A1c < 7 Result Component 6.5( 3:35 PM EDT) No Mayito Acuña PharmD Help patients manage their type 2 diabetes Care Plan Help patients manage their type 2 diabetes Tien Robison Patient has chronic kidney disease Care Plan Patient has chronic kidney disease Tien Robison documented as of this encounter Visit Diagnoses Not on filedocumented in this encounter Additional Health Concerns Active Problems Noted Date Diagnosed Date Help patients manage their type 2 diabetes 12/28 Patient has chronic kidney disease 12/28/2024 Assessment Noted Time PHQ-9 Depression Total Score: 14 025 3:57 PM EDT documented as of this encounter Care Teams Claims Adjuster Supervisor Relationship Specialty Start Date End Date Cinthya Ray MD [address] [place] [address] PCP - General Family Medicine 10/23/11 documented as of this encounter
--- OUTSIDE RECORDS SUMMARY | 2025-01-11 10:54 | XMS_ITS | Encounter Summary ---
Author Organization [employer] Address 75 [facility] 7 [place] [address] Care Team Providers Care Fountain Pen Turner Name Role Phone Cinthya Ray MD Primary Care Provider [phone] Mayito Acuña PharmD Unavailable [phone] Encounter Details Date Type Department Care Team (Late st Contact Info) Description 09/15/2023 Orders Only [facility] MEDICINE [address] [place], [place] [phone] Cinthya Ray MD 230 [place] [address] Type 2 diabetes mellitus with hyperglycemia, without long-term current use of insulin ([facility]) Social History Tobacco Use Types Packs/Day [...] 2:00 PM EST Office Visit [facility] MEDICINE [address] [place] [address] Cinthya Ray MD [address] [place] [address] 02/15/2025 9:00 AM EST Office Visit [facility] ADULT DENTAL [address] [place] [address] [facility], [facility] [address] [place] [address] 02/22/2025 9:00 AM EST Office Visit [facility] ADULT DENTAL [address] [place] [address] [facility], [facility] [address] [place] [address] documented as of this encounter Goals Goal [...] documented as of this encounter Care Teams Fountain Pen Turner Relationship Specialty Start Date End Date Cinthya Ray MD [address] [place] [address] PCP - General Family Medicine 10/23/11 Mayito Acuña, PharmD [address] [place] [address] Pharmacist Internal Medicine 03/07/23 04/22/24 documented as of this encounter
--- OUTSIDE RECORDS SUMMARY | 2025-01-11 10:54 | XMS_ITS | Encounter Summary ---
Author Organization [employer] Address 75 [facility] 7 [place] [address] Care Team Providers Care Leather Staker Name Role Phone Cinthya Ray MD Primary Care Provider [phone] Mayito Acuña PharmD Unavailable [phone] Encounter Details Date Type Department Care Team (Late st Contact Info) Description 03/05/2023 Orders Only [facility] MEDICINE [address] [place], [place] [phone] Cinthya Ray MD [address] [place] [address] Social History Tobacco Use Types Packs/Day Years [...] 02/07/2025 2:00 PM EST Office Visit [facility] MEDICINE [address] [place] [address] Cinthya Ray MD [address] [place] [address] 02/15/2025 9:00 AM EST Office Visit [facility] ADULT DENTAL 505 [place] [address] [facility] 505 [place] [address] 02/22/2025 9:00 AM EST Office Visit [facility] ADULT DENTAL [address] [place] [address] [facility] [address] [place] [address] documented as of this encounter Goals Goal Patient Goal Type Associated Problems Recent Progress Patient-Stated? Author Blood Pressure < 140/90 Blood Pressure 112/74(2024 8:14 AM EST) No Mayito Acuña PharmD Hemoglobin A1c < 7 Result Component 6.5( 3:35 PM EDT) No Mayito Acuña PharmD documented as of this encounter Visit Diagnoses Not on filedocumented in this encounter Care Teams Leather Staker Relationship Specialty Start Date End Date Cinthya Ray MD 230 [place] [address] PCP - General Family Medicine 10/23/11 Mayito Acuña, DyanD [address] [place] [address] Pharmacist Internal Medicine 03/07/23 04/22/24 documented as of this encounter
--- OUTSIDE RECORDS SUMMARY | 2025-01-11 10:54 | XMS_ITS | Encounter Summary ---
Author Organization [employer] Address 75 [facility] 7 [place] [address] Care Team Providers Care Port Drier Name Role Phone Cinthya Ray MD Primary Care Provider [phone] Mayito Acuña PharmD Unavailable Encounter Details Date Type Department Care Team ([facility] st Contact Info) Description 08/05/[address] [facility] CHC MED & PEDS [address] [place] [address] Izzy Olvera FNP 230 [place] [address] Social History Tobacco Use Types Packs/Day Years [...] Description 02/07/2025 2:00 PM EST Office Visit [facility] MEDICINE 230 [place] [address] Cinthya Ray MD 230 [place] [address] 02/15/2025 9:00 AM EST Office Visit [facility] ADULT DENTAL [address] [place] [address] [facility] 505 [place] [address] 02/22/2025 9:00 AM EST Office Visit [facility] ADULT DENTAL [address] [place] [address] [facility] 505 [place] [address] documented as of this encounter Goals Goal Patient Goal Type Associated Problems Recent Progress Patient-Stated? Author Blood Pressure < 140/90 Blood Pressure 112/74(2024 8:14 AM EST) No Mayito Acuña, PharmDao Hemoglobin A1c < 7 Result Component 6.5( 3:35 PM EDT) No Mayito Acuña, Citlali documented as of this encounter Visit Diagnoses Not on filedocumented in this encounter Additional Health Concerns Assessment Noted Time PHQ-9 Depression Total Score: 0 06/10/19 24 2:55 PM EDT documented as of this encounter Care Teams Port Drier Relationship Specialty Start Date End Date Cinthya Ray MD [address] [place] [address] PCP - General Family Medicine 10/23/11 Mayito Acuña PharmD [address] [place] [address] Pharmacist Internal Medicine 03/07/23 04/22/24 documented as of this encounter
--- OUTSIDE RECORDS SUMMARY | 2025-01-11 10:54 | XMS_ITS | Encounter Summary ---
Author Organization [employer] Address 75 [facility] 7t [place] [address] Care Team Providers Care Clinical Pharmacy Specialist Name Role Phone Cinthya Ray MD Primary Care Provider [phone] Mayito Acuña PharmD Unavailable [phone] Encounter Details Date Type Department Care Team (Late st Contact Info) Description 06/13/2022 Orders Only [facility] W[facility] CENTER [address] [place] [phone] Jerrica Girard FNP Social History Tobacco Use [...] Department Care Team (Late Contact Info) Description 02/07/2025 2:00 PM EST Office Visit [facility] MEDICINE 230 [place] [address] Cinthya Ray MD 230 [place] [address] 02/15/2025 9:00 AM EST Office Visit [facility] ADULT DENTAL 505 [place] [address] [facility] [address] [place] [address] 02/22/2025 9:00 AM EST Office Visit [facility] ADULT DENTAL [address] [place] [address] Tony [facility] [address] [place] [address] documented as of this encounter Visit Diagnoses Not on filedocumented in this encounter Care Teams Clinical Pharmacy Specialist Relationship Specialty Start Date End Date Cinthya Ray MD [address] [place] [address] PCP - General Family Medicine 10/23/11 Mayito Acuña, DyanD [address] [place] [address] Pharmacist Internal Medicine 03/07/23 04/22/24 documented as of this encounter
--- OUTSIDE RECORDS SUMMARY | 2025-01-11 10:54 | XMS_ITS | Encounter Summary ---
Author Organization [employer] Address [address] [place] [address] 7 [place] [address] Care Team Providers Care Director Financial Systems Name Role Phone Cinthya Ray MD Primary Care Provider [phone] Mayito Acuña PharmD Unavailable [phone] Reason for Visit * Reason Onset Date Comments callback request 12/30/2023 Encounter Details Date Type Department Care Team (Late st Contact Info) Description 12/30/2023 Telephone [facility] MEDICINE 230 [place], [place] [phone] Cinthya Ray MD [address] [place], [place] [phone] callback request Social History Tobacco Use Types [...] EST Tc from pt returning [facility] from [facility] to book an appointment for follow up Callback [id number] documented in this encounter Plan of Treatment Upcoming Encounters Date Type Department Care Team (Late st Contact Info) Description 02/07/2025 2:00 PM EST Office Visit [facility] MEDICINE [address] [place] [address] Cinthya Ray MD [address] [place] [address] 02/15/2025 9:00 AM EST Office Visit [facility] CHC ADULT DENTAL [address] [place] [address] [facility] [address] [place] [address] 02/22/2025 9:00 AM EST Office Visit [facility] CHC ADULT DENTAL [address] [place] [address] [facility] [address] [place] [address] documented as of this encounter Goals Goal [...] documented as of this encounter Care Teams Director Financial Systems Relationship Specialty Start Date End Date Cinthya Ray MD [address] [place] [address] PCP - General Family Medicine 10/23/11 Mayito Acuña, Citlali [address] [place] [address] Pharmacist Internal Medicine 03/07/23 04/22/24 documented as of this encounter
--- OUTSIDE RECORDS SUMMARY | 2025-01-11 10:54 | XMS_ITS | Encounter Summary ---
Author Organization [employer] Address 75 [facility] 7 [place] [address] Care Team Providers Care Lard Maker Name Role Phone Cinthya Ray MD Primary Care Provider [phone] Mayito Acuña PharmD Unavailable [phone] Reason for Visit * Reason Onset Date Comments Med Refill 12/24/2023 Encounter Details Date Type Department Care Team (Late st Contact Info) Description 12/24/2023 Refill [facility] CHC MED & PEDS [address] [place], [place] [phone] Cinthya Ray MD [address] [place], [place] [phone] Type 2 diabetes mellitus with hyperglycemia, without long-term current use of insulin ([facility]) Social History Tobacco Use [...] Description 02/07/2025 2:00 PM EST Office Visit [facility] MEDICINE [address] [place] [address] Cinthya Ray MD [address] [place] [address] 02/15/2025 9:00 AM EST Office Visit [facility] ADULT DENTAL [address] [place] [address] [facility] [address] [place] [address] 02/22/2025 9:00 AM EST Office Visit [facility] ADULT DENTAL [address] [place] [address] Rhona [facility] [address] [place] [address] documented as of this encounter Goals Goal [...] documented as of this encounter Care Teams Lard Maker Relationship Specialty Start Date End Date Cinthya Ray MD [address] [place] [address] PCP - General Family Medicine 10/23/11 Mayito Acuña PharmD [address] [place] [address] Pharmacist Internal Medicine 03/07/23 04/22/24 documented as of this encounter
--- OUTSIDE RECORDS SUMMARY | 2025-01-11 10:54 | XMS_ITS | Encounter Summary ---
Author Organization [employer] Address [address] [place] [address] [facility] [place] [address] Care Team Providers Care Stone Chimney Mason Name Role Phone Cinthya Ray MD Primary Care Provider [phone] Mayito Acuña PharmD Unavailable [phone] Reason for Referral * Consultation (Routine) - Closed Specialty Diagnoses / Procedures Referred By Contcarly t Referred To Contact Pharmacy Diagnoses Type 2 diabetes mellitus with hyperglycemia, with long-term current use of insulin (HCC) Cinthya Ray MD 230 [place] [address] Phone: tel: fax: Referral ID Status Reason Start Date Expiration Date V isits Requested Visits Authorized [id number] Closed Consult and Treat 12/23/2023 12/22/2024 6 6 Encounter Details Date Type Department Care Team (Late st Contact Info) Description 12/23/2023 Orders Only [facility] MEDICINE [address] [place], [place] [phone] Cinthya Ray MD 230 [place], [place] [phone] Type 2 diabetes mellitus with hyperglycemia, with [...] Description 02/07/2025 2:00 PM EST Office Visit [facility] MEDICINE 230 [place] [address] Cinthya Ray MD 230 [place] [address] 02/15/2025 9:00 AM EST Office Visit [facility] ADULT DENTAL [address] [place] [address] [facility] [address] [place] [address] 02/22/2025 9:00 AM EST Office Visit [facility] ADULT DENTAL [address] [place] [address] [facility] [address] [place] [address] Scheduled Referrals Name Type Priority Associated Diagnoses Orde r Schedule Referral to Pharmacy CDTM Outpatient Referral Routine Type 2 diabetes mellitus with hyperglycemia, with long-term current use of insulin ([facility]) Ordered: 12/23/2023 documented as of [...] hyperglycemia, with long-term current use of insulin ([facility])- Primary documented in this encounter Additional Health Concerns Assessment Noted Time PHQ-9 Depression Total Score: 11 09/28/ 024 9:48 AM EDT documented as of this encounter Care Teams Stone Chimney Mason Relationship Specialty Start Date End Date Cinthya Ray MD [address] [place] [address] PCP - General Family Medicine 10/23/11 aMyito Acuña, DyanD [address] [place] [address] Pharmacist Internal Medicine 03/07/23 04/22/24 documented as of this encounter
--- OUTSIDE RECORDS SUMMARY | 2025-01-11 10:54 | XMS_ITS | Encounter Summary ---
Author Organization [employer] Address [address] [place] [address] [place], [place] [address] Care Team Providers Care Plate Maker Name Role Phone Cinthya Ray MD Primary Care Provider [phone] Mayito Acuña PharmD Unavailable [phone] Reason for Visit * Reason Onset Date Comments Medication Question 06/14/2022 Encounter Details Date Type Department Care Team (Late st Contact Info) Description 06/14/2022 Telephone [facility] MEDICINE [address] [place], [place] [phone] Cinthya Ray MD [address] [place], [place] [phone] Medication Question Social History Tobacco Use Types [...] Description 02/07/2025 2:00 PM EST Office Visit [facility] MEDICINE [address] [place] [address] Cinthya Ray MD [address] [place] [address] 02/15/2025 9:00 AM EST Office Visit [facility] ADULT DENTAL [address] [place] [address] Shani, Thompson [address] [place] [address] 02/22/2025 9:00 AM EST Office Visit [facility] ADULT DENTAL [address] [place] [address] [facility], [facility] [address] [place] [address] documented as of this encounter Visit Diagnoses Not on filedocumented in this encounter Care Teams Plate Maker Relationship Specialty Start Date End Date Cinthya Ray MD [address] [place] [address] PCP - General Family Medicine 10/23/11 Mayito Acuña, PharmD [address] [place] [address] Pharmacist Internal Medicine 03/07/23 04/22/24 documented as of this encounter
--- OUTSIDE RECORDS SUMMARY | 2025-01-11 10:54 | XMS_ITS | Encounter Summary ---
Author Organization [employer] Address [address] [facility] 7 [place] [address] Care Team Providers Care Picture Booker Name Role Phone Cinthya Ray MD Primary Care Provider [phone] Mayito Acuña PharmD Unavailable [phone] Encounter Details Date Type Department Care Team (Late st Contact Info) Description 04/07/2024 Orders Only [facility] MEDICINE [address] [place], [place] [phone] Lexis Spann MD [address] [place] [address] Social History Tobacco Use Types Packs/Day Years [...] the past 12 months, has t he [employer], gas, oil or water company threatened to [...] Description 02/07/2025 2:00 PM EST Office Visit [facility] MEDICINE [address] [place] [address] Cinthya Ray MD [address] [place] [address] 02/15/2025 9:00 AM EST Office Visit [facility] ADULT DENTAL [address] [place] [address] Rhona Mcleodricio [address] [place] [address] 02/22/2025 9:00 AM EST Office Visit [facility] ADULT DENTAL [address] [place] [address] ShaniRhona trianaricio [address] [place] [address] documented as of this encounter Goals Goal [...] documented as of this encounter Care Teams Picture Booker Relationship Specialty Start Date End Date Cinthya Ray MD [address] [place] [address] PCP - General Family Medicine 10/23/11 Mayito Acuña PharmD [address] [place] [id number] Pharmacist Internal Medicine 03/07/23 04/22/24 documented as of this encounter
--- OUTSIDE RECORDS SUMMARY | 2025-01-11 10:54 | XMS_ITS | Encounter Summary ---
Author Organization [employer] Address [address] [place] [address] [address] [address] Care Team Providers Care Panel Assembler Name Role Phone Cinthya Ray MD Primary Care Provider [phone] Mayito Acuña PharmD Unavailable [phone] Reason for Visit * Reason Onset Date Comments triage 04/10/2022 Encounter Details Date Type Department Care Team (Late st Contact Info) Description 04/10/2022 Telephone [facility] MEDICINE [address] [place], [place] [phone] Cinthya Ray MD [address] [place], [place] [phone] triage Social History Tobacco Use Types Packs/Day [...] Description 02/07/2025 2:00 PM EST Office Visit [facility] MEDICINE [address] [place] [address] Cinthya Ray MD [address] [place] [address] 02/15/2025 9:00 AM EST Office Visit [facility] ADULT DENTAL [address] [place] [address] Thompson Mcleod [address] [place] [address] 02/22/2025 9:00 AM EST Office Visit [facility] ADULT DENTAL [address] [place] [address] Thompson Mcleod [address] [place] [address] documented as of this encounter Visit Diagnoses Not on filedocumented in this encounter Care Teams Panel Assembler Relationship Specialty Start Date End Date Cinthya Ray MD [address] [place] [address] PCP - General Family Medicine 10/23/11 Mayito Acuña, PharmD [address] [place] [address] Pharmacist Internal Medicine 03/07/23 04/22/24 documented as of this encounter
--- OUTSIDE RECORDS SUMMARY | 2025-01-11 10:54 | XMS_ITS | Encounter Summary ---
Author Organization [employer] Address [address] [facility] 7 [place] [address] Care Team Providers Care Rehab Rn Name Role Phone Cinthya Ray MD Primary Care Provider [phone] Mayito Acuña PharmD Unavailable [phone] Reason for Visit * Reason Onset Date Comments Results 12/09/2022 Encounter Details Date Type Department Care Team ([facility] st Contact Info) Description 12/09/2022 Telephone [facility] MEDICINE [address] [place], [place] [phone] Cinthya Ray MD [address] [place], [place] [phone] Results Social History Tobacco Use Types Packs/Day [...] to [place] results. Please contact pt at [phone] documented in this encounter Plan of Treatment Upcoming Encounters Date Type Department Care Team (Late st Contact Info) Description 02/07/2025 2:00 PM EST Office Visit [facility] MEDICINE [address] [place] [address] Cinthya Ray MD [address] [place] [address] 02/15/2025 9:00 AM EST Office Visit [facility] ADULT DENTAL [address] [place] [address] Thompson Mcleod [address] [place] [address] 02/22/2025 9:00 AM EST Office Visit [facility] ADULT DENTAL [address] [place] [address] Thompson Mcleod [address] [place] [address] documented as of this encounter Visit Diagnoses Not on filedocumented in this encounter Care Teams Rehab Rn Relationship Specialty Start Date End Date Cinthya Ray MD [address] [place] [address] PCP - General Family Medicine 10/23/11 Mayito Acuña, DyanD [address] [place] [address] Pharmacist Internal Medicine 03/07/23 04/22/24 documented as of this encounter
--- OUTSIDE RECORDS SUMMARY | 2025-01-11 10:54 | XMS_ITS | Encounter Summary ---
Author Organization [employer] Address [address] [place] [address] 7 [place] [address] Care Team Providers Care Printed Circuit Board Reworker Name Role Phone Cinthya Ray MD Primary Care Provider [phone] Reason for Visit * Reason Comments Med Refill Encounter Details Date Type Department Care Team ([facility] st Contact Info) Description 04/26/2024 Refill [facility] MEDICINE [address] [place], [place] [phone] Cinthya Ray MD [address] [place] [address] Social History Tobacco Use Types Packs/Day Years [...] Description 02/07/2025 2:00 PM EST Office Visit [facility] MEDICINE [address] [place] [address] Cinthya Ray MD [address] [place] [address] 02/15/2025 9:00 AM EST Office Visit [facility] ADULT D[facility]AL [address] [place] [address] Shani, Thompson [address] [place] [address] 02/22/2025 9:00 AM EST Office Visit [facility] ADULT DENTAL [address] [place] [address] Shani, Thompson [address] [place] [address] documented as of this encounter Goals Goal Patient Goal Type Associated Problems Recent Progress Patient-Stated? Author Blood Pressure < 140/90 Blood Pressure 112/74(2024 8:14 AM EST) Mayito Rodriguez, PharmD Hemoglobin A1c < 7 Result Component 6.5( 5 3:35 PM EDT) No Mayito Acuña PharmD documented as of this encounter Visit Diagnoses Not on filedocumented in this encounter Additional Health Concerns Assessment Noted Time PHQ-9 Depression Total Score: 11 024 9:48 AM EDT documented as of this encounter Care Teams Printed Circuit Board Reworker Relationship Specialty Start Date End Date Cinthya Ray MD [address] [place] [address] PCP - General Family Medicine 10/23/11 documented as of this encounter
--- OUTSIDE RECORDS SUMMARY | 2025-01-11 10:54 | XMS_ITS | Clinical Summary ---
Author Organization [employer] Address [address] [place] [address] 7 [place] [address] Care Team Providers Care Import/Export Analyst Name Role Phone Cinthya Ray MD Primary Care Provider [phone] Allergies No known active allergies Medications * [...] tablet 3 01/31/20 24 Active Continuous Glucose Service Advisor (FreeStyle Audrey [address] [place]) deviceIndications :Type 2 diabetes mellitus with hyperglycemia, [...] hyperglycemia, without long-term current use of insulin ([facility]) INJECT 35 UNITS SUBCUTANEOUSLY ONCE EVERY [...] recurrent major depressive disorder, without psychotic features ([facility]) 10/09/2024 Hypotension 05/04/2024 Assessment & Plan (05/04/2024 [...] (05/04/2024 4:55 AM EDT): - following with [facility] Orthopedics - Dx impingement syndrome - [...] her parents. 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 -Repeat EGD in 2 years -Continue pantoprazole Assessment & Plan (09/09/2023 6:00 AM EDT): -Following with [facility] GI, last seen on -06/30/23 EGD [...] considering a bariatric surgery and went to [facility] wt management clinic. She restarted going to [facility] Wt management clinic. - She had worked with our diabetes education nurse, Ene Arias from Nov to Dec 2021. - Graduated from [employer]. - Eye exam: 01/28/24. [facility]. Nonregenerative diabetic retinopathy, bilateral, mild. [...] considering a bariatric surgery and went to [facility] wt management clinic. She restarted going to [facility] Wt management clinic. - She had worked with our diabetes education nurse, Ene Arias from Nov to Dec 2021. - Currently showing good attendance to [facility]; appreciated her effort - Eye exam: 01/24/23 [facility]. No diabetic retinopathy - Comprehensive [...] considering a bariatric surgery and went to [facility] management clinic - She had worked with our diabetes education nurse, Ene Arias from Nov to Dec 2021. - Currently showing good attendance to [facility]; appreciated her effort - Eye exam: 01/24/23 [facility]. No diabetic retinopathy - Comprehensive [...] considering a bariatric surgery and went to [facility] wt management clinic - She had worked with our diabetes education nurse, Ene Arias from Nov to Dec 2021. - Currently showing good attendance to [facility]; appreciated her effort - Eye exam: 01/24/23 [facility] No diabetic retinopathy - Comprehensive [...] considering a bariatric surgery and went to [facility] management clinic - She had worked with our diabetes education nurse, Ene Arias from Nov to Dec 2021. - Currently showing good attendance to [facility]; appreciated her effort - Eye exam: 01/24/23 [facility] No diabetic retinopathy - Comprehensive [...] considering a bariatric surgery and went to [facility] management clinic - She had worked with our diabetes education nurse, Ene Arias from Nov to Dec 2021. - Currently showing good attendance to [facility]; appreciated her effort - Eye exam: 01/24/23 [facility] No diabetic retinopathy - Comprehensive [...] considering a bariatric surgery and went to [facility] wt management clinic - She had worked with our diabetes education nurse, Ene Arias from Nov to Dec 2021. - Refer to [facility] - Eye exam: 01/24/23 [facility] No diabetic retinopathy - Comprehensive [...] considering a bariatric surgery and went to [facility] wt management clinic - She had worked with our diabetes education nurse, Ene Arias from Nov to Dec 2021. - Eye exam: 01/21/22 [facility] No diabetic retinopathy - Comprehensive [...] considering a bariatric surgery and went to [facility] wt management clinic - She had worked with our diabetes education nurse, Ene Arias from Nov to Dec 2021. - Eye exam: 01/21/22 [facility] No diabetic retinopathy - Comprehensive [...] considering a bariatric surgery and went to [facility] wt management clinic - She had worked with our diabetes education nurse, Ene Arias from Nov to Dec 2021. - Eye exam: 01/21/22 [facility] No diabetic retinopathy - Comprehensive [...] considering a bariatric surgery and went to [facility] wt management clinic - She had worked with our diabetes education nurse, Ene Arias from Nov to Dec 2021. - Eye exam: 01/21/22 [facility]. No diabetic retinopathy - Comprehensive [...] considering a bariatric surgery and went to [facility] wt management clinic - She had worked with our diabetes education nurse, Ene Arias from Nov to Dec 2021. - Eye exam: 01/21/22 [facility] No diabetic retinopathy - Comprehensive [...] considering a bariatric surgery and went to [facility] wt management clinic - She had worked with our diabetes education nurse, Ene Arias from Nov to Dec 2021. - Eye exam: 01/21/22 [facility] No diabetic retinopathy - Comprehensive [...] 2021. - completed Partial Hospitalization Program at [facility] 11/09/21 - 11/23/21 - current medication: none -Previous medication treatment Hx: venlafaxine was self-discontinued; trazodone was prescribed by psychiatrist while she was attending [facility], but pt self-discontinued due to ineffectivenss; sertraline 50 mg daily, patient self-discontinued. - previously seeing [facility] clinician and waiting for psychiatrist, patient has not been engaged in behavioral health therapy currently. - contacted by [facility] service and was referred to off-site service - patient has developed healthy coping skills Assessment & Plan (11/30/2023 1:22 PM EDT): - MDD vs. bipolar - severe exacerbation of Depression w/ SI in October 2021. - completed Partial Hospitalization Program at [facility] 11/09/21 - 11/23/21 - current medication: none -Previous medication treatment Hx: venlafaxine was self-discontinued; trazodone was prescribed by psychiatrist while she was attending [facility], but pt self-discontinued due to ineffectivenss; sertraline 50 mg daily, patient self-discontinued. - previously seeing [facility] clinician and waiting for psychiatrist, patient has not been engaged in behavioral health therapy currently. - contacted by [facility] service and was referred to off-site service - patient has developed healthy coping skills Assessment & Plan (03/07/2023 5:55 AM EST): - MDD vs. bipolar - severe exacerbation of Depression w/ SI in October 2021. - completed Partial Hospitalization Program at [facility] 11/09/21 - 11/23/21 - current medication: none -Previous medication treatment Hx: venlafaxine was self-discontinued; trazodone was prescribed by psychiatrist while she was attending [facility], but pt self-discontinued due to ineffectivenss; sertraline 50 mg daily, patient self-discontinued. - previously seeing [facility] clinician and waiting for psychiatrist, patient has not been engaged in behavioral health therapy currently. - will consider referring back Assessment & Plan (11/12/2022 4:17 PM EDT): - severe exacerbation of Depression w/ SI in October 2021. - completed Partial Hospitalization Program at [facility] 11/09/21 - 11/23/21 - Medication: Sertraline 50 [...] 2021. - completed Partial Hospitalization Program at [facility] 11/09/21 - 11/23/21 - Medication: Sertraline 50 mg daily -Previous medication treatment Hx: venlafaxine was self-discontinued; trazodone was prescribed by psychiatrist while she was attending [facility], but pt self-discontinued due to ineffectivenss - still on waiting list for outpatient appt with psychiatrist and therapist. - Able to contract her safety today - Continue BHS with [facility] Assessment & Plan (06/24/2022 11:25 AM EDT): - severe exacerbation of Depression w/ SI in October 2021. - completed Partial Hospitalization Program at [facility] 11/09/21 - 11/23/21 - Medication treatment Hx --venlafaxine was self-discontinued --trazodone was prescribed by psychiatrist while she was attending [facility], but pt self-discontinued due to ineffectivenss - still on waiting list for outpatient appt with psychiatrist and therapist. - Able to contract her safety today - Continue BHS with [facility] Assessment & Plan (05/21/2022 12:36 PM EDT): - severe exacerbation of Depression w/ SI in October 2021. - completed Partial Hospitalization Program at [facility] 11/09/21 - 11/23/21 - Medication treatment Hx --venlafaxine was self-discontinued --trazodone was prescribed by psychiatrist while she was attending [facility], but pt self-discontinued due to ineffectivenss - still on waiting list for outpatient appt with psychiatrist and therapist. - Able to contract her safety today - Continue BHS with [facility] Assessment & Plan (04/04/2022 7:17 PM EST): - severe exacerbation of Depression w/ SI in October 2021. - completed Partial Hospitalization Program at [facility] 11/09/21 - 11/23/21 - Medication treatment Hx --venlafaxine was self-discontinued --trazodone was prescribed by psychiatrist while she was attending [facility], but pt self-discontinued due to ineffectivenss - still on waiting list for outpatient appt with psychiatrist and therapist. - Able to contract her safety today - Continue BHS with [facility] Assessment & Plan (02/22/2022 4:28 PM EST): - severe exacerbation of Depression w/ SI in October 2021. - completed Partial Hospitalization Program at [facility] 11/09/21 - 11/23/21 - Medication treatment Hx --venlafaxine was self-discontinued --trazodone was prescribed by psychiatrist while she was attending [facility], but pt self-discontinued due to ineffectivenss - [...] effects. Will try to consult with both cable driller and surgical weight loss provider. Surgical weight [...] - previously participated weight management program at [facility] - continue working on lifestyle modifications - associated comorbidity: STELLA, DM2 Assessment & Plan (11/18/2022 7:07 AM EDT): - previously participated weight management program at [facility] - continue working on lifestyle modifications - associated comorbidity: STELLA, DM2 Assessment & Plan (04/04/2022 7:14 PM EST): - previously participated weight management program at [facility] - continue working on lifestyle modifications - associated comorbidity: STELLA, DM2 Assessment & Plan (02/22/2022 4:37 PM EST): - previously participated weight management program at [facility] - continue working on lifestyle modifications [...] Encounters Date Type Department Care Team Description 01/05/2025 8:00 AM EST Office Visit [facility] [address] [place] [address] [facility] 01/03/2025 Telephone [facility] [address] [place] [address] Sharona Leija MA 12/28/2024 Telephone [facility] [address] [place] [address] Cinthya Ray MD Appointment Request 12/27/2024 Orders Only GENERIC EXTERNAL DATA DEPARTMENT Provider, Generic External Data 11/23/2024 Refill [facility] [address] [place] [address] Lexis Spann MD 11/19/2024 Orders Only GENERIC EXTERNAL DATA DEPARTMENT Provider, Generic External Data 11/17/2024 Telephone [facility] [address] [place] [address] Rianna Solis, RN NTTS from Last 3 Months Immunizations Immunization Administration Dates Next Due DTP 05/12/1997, 4,1992,08/16,1992 Hep A, Adult 03/14/2023,11/10/2017 Hep A, ped/adol, 2 dose 01/06/2012 Hep B, Adolescent or Pediatric 12/22/1995,1994,10/19/1993 Hib ([facility]) 05/14/1993, 3,1992,04/12 IPV 05/12/1997, 4,1992,04/12 Influenza [...] Sign Reading Time Taken Comments Blood Pressure 112/74 01/05/2025 8:14 AM EST Pulse 99 10/09/2024 9:23 AM EDT Temperature [...] Description 02/07/2025 2:00 PM EST Office Visit [facility] [address] [place] [address] Cinthya Ray MD [address] [place] [address] 02/15/2025 9:00 AM EST Office Visit [facility]ULT [facility] [address] [place] [address] [facility] [address] [place] [address] 02/22/2025 9:00 AM EST Office Visit [facility] [address] [place] [address] [facility] [address] [place] [address] Health Maintenance Due Date Last Done Comments Family Planning (PISQ) 02/26/2007 HPV Vaccines (1 - 3-dose series) 02/26/2007 Dental Oral Exam 02/08/2023 08/08/2022 Eye Exam 01/25/2024 01/24/2023 SDOH Screening 06/09/2024 06/10/2023 Cervical Cancer Screening 07/24/2024 HPV/Cotest 07/24/2024 Pap Smear 07/24/2024 07/24/2021 COVID-19 Vaccine ( season) 2024 02/22/2021, 07/01/2020, 06/03/2020 Influenza Vaccine (#1) 2024 8, 04/10/2017, 10/24/2014, Additional history exists Depression Monitoring 11/03/2024 05/03/2024, 025 Diabetes: Hemoglobin A1C 11/03/2024 025, 01/26/2024, 11/26/2023, Additional history exists Diabetes: Foot Exam 11/25/2024 11/26/2023, 11/26/2023, 11/26/2023, Additional history exists Lipid Panel 11/25/2024 11/26/2023, 0803/2023, 06/11/2023, Additional history exists Alcohol/Substance Use Screening 01/26/2025 01/27/2024 Dental Prophylaxis 04/04/2025 10/01/2024, 1 04/01/2023, 06/04/2023, Additional history exists Disability Screening 05/03/2025 05/03/2024 Dental X-Ray: Full Mouth 08/09/2025 08/08/2022, 0406/2021 Diabetes: Urine Protein Screening 08/23/2025 08/23/2024, 11/26/2023, 09/12/2023, Additional history exists DTaP/Tdap/Td Vaccines (8 - Td or Tdap) 08/28/2025 08/29/2015, 01/06/2012, 09/17/2005, Additional history exists Dental X-Ray: Bitewings 10/02/2025 10/02/19 25, 06/04/2023, 08/08/2022 Tobacco Screening 01/05/2026 01/05/2025 Zoster Vaccines (1 of 2) 02/26/2042 RSV [...] 3:35 PM EDT) No Mayito Acuña, PharmD Help patients manage their type 2 diabetes Care Plan Help patients manage their type 2 diabetes No Tien Rosa Patient has chronic kidney disease Care Plan Patient has chronic kidney disease No Tien Rosa Patient has chronic kidney disease Care Plan Patient has chronic kidney disease No Sharona Leija [place] Patient has chronic kidney disease Care Plan Patient has chronic kidney disease No Naima Olea Procedures Procedure Name Priority Date/Time Associated Diagnosis Comments CASE PRESENTATION, DETAILED AND EXTENSIVE TREATMENT PLANNING Routine 01/05/2025 8:00 AM EST 3 MO RESIN-BASED COMPOSITE - 2 SURF, POSTERIOR Routine 01/05/2025 8:00 AM EST GLUCOSE, WHOLE BLOOD Routine 12/27/2024 3:10 PM EST GLUCOSE, WHOLE BLOOD Routine 11/19/2024 2:08 PM EDT PROPHYLAXIS - ADULT Routine 10/01/2024 8 :00 AM EDT BITEWINGS - 4 RADIOGRAPHIC IMAGES Routine 10/01/2024 8:00 AM EDT POCT GLYCOSYLATED HEMOGLOBIN (HGB A1C) Routine [...] Recently Relevant to Health Maintenance Results * Glucose, Whole Blood (12/27/2024 3:10 PM EST) Only the most recent of2 resultswithin the time period is included. Glucose, Whole Blood 111 60 - 115 mg/dL [facility] Comment:METER #: [id number] 0Testing performed in the Endocrinology Department [address] , [address], [place]. 12/27/2024 3:10 PM EST 12/27/2024 3:13 PM EST us Generic External Data Provider LAB BLOOD ORDERAB LES Final Result [facility] [address] [place] [address] [phone] * (ABNORMAL) POCT glycosylated hemoglobin (Hgb A1c) (05/03/2024 3:35 PM EDT) Hemoglobin A1C 6.5(A) 4.0 - 6.0 % QC Media Lot # [id number] Lot# Expiration Date [id number] Blood Capillary blood specimen / Unknown 05/03/2024 3:35 PM EDT us Cinthya Ray MD POINT OF CARE TEST ENTER/EDIT OR DERABLES Final Result * (ABNORMAL) Lipid Panel with Reflex to Direct LDL (11/26/2023 11:30 AM EDT) Triglycerides 145 <150 mg/dL [facility] Comment:Desirable Triglyceri de: less than 150 mg/dLBorderline High Triglyceride 150-199 mg/dLHigh Triglyceride: 200-499 mg/dLVery High Triglyceride: greater than or equal to 5OO mg/dL Cholesterol 152 <200 mg/dL [facility] Comment:Desirable Cholestero l: less than 200 mg/dLBorderline High Cholesterol: 200-239 mg/dLHigh Cholesterol: greater than 239 mg/dL LDL Cholesterol Calculated 91 <100 mg/dL [facility] Comment:Desirable LDL: less than 100 mg/dLNear Optimal/Above Optimal LDL: 110- 129 mg/dLBorderline High LDL: 130-159 mg/dLHigh LDL: 160-189 mg/dLVery High LDL: greater than or equal to 190 mg/dL HDL Cholesterol 32(L) >40 mg/dL [facility] Comment:Desirable HDL: great er than 40 mg/dL Note: This HDL assay may give artificially low results in patients with liver disease. Blood 11/26/2023 11:3 0 AM EDT 11/26/2023 1:20 PM EDT us Cinthya Ray MD LAB BLOOD ORDERABLES Final Resul t [facility] [address] [place] [phone] * Hepatitis C Antibody with Reflex to HCV, RNA, Quantitative, Real-Time PCR (11/26/2023 11:30 AM EDT) Hepatitis C Antibody Nonreactive Nonreactive [facility] Comment:Antibodies to HCV no t detected; does not exclude early acuteHCV infection. Blood Venous blood specimen / Unknown 11/26/2023 11:30 AM EDT 11/26/2023 1:20 PM EDT us Cinthya Ray MD LAB BLOOD ORDERABLES Final Resul t Performing Organization Address [facility] de Phone Number [facility] [address] [place] [phone] * HIV-1/2 Antigen and Antibodies, Fourth Generation, with Reflexes (11/26/2023 11:30 AM EDT) HIV AB/AG Nonreactive Nonreactive [facility] Comment:HIV-1 p24 Ag and/or HIV-1/HIV-2 Ab not detected.A test result that is nonreactive does not exclude thepossibility of exposure to or infection with HIV-1 and/orHIV-2. Nonreactive results in this assay for individualswith prior exposure to HIV-1 and/or HIV-2 may be due toantigen and antibody levels that are below the limit ofdetection of this assay.The SpanDeXnity HIV Ag/Ab Combo assay result andsupplemental assay [...] Resul t Performing Organization Address [facility] Co de Phone Number [facility] [address] [place] [address] [phone] * Albumin, Random Urine W/Creatinine (11/26/2023 12:00 AM EDT) Creatinine, Urine 238.24 mg/dL [facility] Microalbumin Urine 23.0 mg/L [facility] Microalbum Creatinine Ratio Ur 9.6 <30 ug/mg cr [facility] Comment:Albumin/Creatinine R atio Reference Ranges: Normal: < 30 ug/mg creatinine Microalbuminuria: 30 - 300 ug/mg creatinineClinical Albuminuria: > 300 ug/mg creatinine Urine 11/26/2023 11/26/2023 Cinthya Ray MD LAB URINE ORDERABLES Final Resul t Performing Organization Address [facility] Co de Phone Number [facility] [address] [place] [address] [phone] * Diabetes Eye Exam (01/24/2023) Eye Exam Normal Normal Comment:brutus eye 01/24/2023 Berta Provider HEALTH MAINTENANCE Final Result * THINPREP TIS PAP (07/24/2021 4:01 PM EDT) Clinical Information: None given [facility] COMMENT SEE COMMENT [facility] ON [...] along with historic and current clinical information. Comment: This Pap test has been evaluated with computer assisted technology. [facility] Health Sanitarian : SEE COMMENT [facility] Comment: MXD, CT (ASCP) CT screening location: [place] [id number] Interpretation/R esult: Negative for intraepithelial lesion or [...] R esult [facility] [address] from Last 3 Months or Most Recently Relevant to Health Maintenance Additional Health Concerns Active Problems Noted Date Diagnosed Date Help patients manage their type 2 diabetes 12/28 Patient has chronic kidney disease 12/28/2024 Patient has chronic kidney disease 01/03/2025 Patient has chronic kidney disease 01/05/[address] [place] [address] C3 DENTAL-[facility] MEDICAID STAND ADULT Care Teams Import/Export Analyst Relationship Specialty Start Date End Date Cinthya Ray MD [address] [place] [phone] PCP - General Family Medicine 10/23/11
--- OUTSIDE RECORDS SUMMARY | 2025-01-11 10:54 | XMS_ITS | Encounter Summary ---
Author Organization [employer] Address [address] [place] [address] [address] [place] [address] Care Team Providers Care Derivatives Trader Name Role Phone Cinthya Ray MD Primary Care Provider [phone] Mayito Acuña PharmD Unavailable [phone] Reason for Visit * Reason Onset Date Comments Med Refill 08/06/2023 Encounter Details Date Type Department Care Team (Late st Contact Info) Description 08/06/2023 Refill [facility] [address] [place], [place] [phone] Cinthya Ray MD [address] [place], [place] [phone] Social History Tobacco Use Types Packs/Day Years [...] Description 02/07/2025 2:00 PM EST Office Visit [facility] [address] [place] [address] Cinthya Ray MD [address] [place] [address] 02/15/2025 9:00 AM EST Office Visit [facility] [address] [place] [address] [facility] [address] [place] [address] 02/22/2025 9:00 AM EST Office Visit [facility] AD[facility] [address] [place] [address] [facility] [address] [place] [address] documented as of this encounter Goals Goal [...] documented as of this encounter Care Teams Derivatives Trader Relationship Specialty Start Date End Date Cinthya Ray MD [address] [place] [address] PCP - General Family Medicine 10/23/11 Mayito Acuña, PharmD [address] [place] [address] Pharmacist Internal Medicine 03/07/23 04/22/24 documented as of this encounter
--- OUTSIDE RECORDS SUMMARY | 2025-01-11 10:54 | XMS_ITS | Encounter Summary ---
Author Organization [employer] Address 75 [facility] 7 [place] [address] Care Team Providers Care Supervisor Insulation Name Role Phone Cinthya Ray MD Primary Care Provider [phone] Mayito Acuña PharmD Unavailable [phone] Reason for Visit * Reason Onset Date Comments Med Refill 03/12/2024 Encounter Details Date Type Department Care Team (Late st Contact Info) Description 03/12/2024 Refill [facility] CH[facility] MED & PEDS [address] [place], [place] [phone] Cinthya Ray MD [address] [place], [place] [phone] Type 2 diabetes mellitus with hyperglycemia, without long-term current use of insulin ([facility]) Social [...] Description 02/07/2025 2:00 PM EST Office Visit [facility] MEDICINE 230 [place] [address] Cinthya Ray MD [address] [place] [address] 02/15/2025 9:00 AM EST Office Visit [facility] ADULT D[facility] 505 [place] [address] Thompson Mcleod 505 [place] [address] 02/22/2025 9:00 AM EST Office Visit [facility] 505 [place] [address] Rhona Mcleodricio 505 [place] [address] documented as of this encounter Goals Goal [...] as of this encounter Care Teams Supervisor Insulation Relationship Specialty Start Date End Date Cinthya Ray MD [address] [place] [address] PCP - General Family Medicine 10/23/11 Mayito Acuña PharmD [address] [place] [address] Pharmacist Internal Medicine 03/07/23 04/22/24 documented as of this encounter
--- OUTSIDE RECORDS SUMMARY | 2025-01-11 10:54 | XMS_ITS | Encounter Summary ---
Author Organization [employer] Address 75 [facility] 7 [place] [address] Care Team Providers Care National Accounts Recruiter Name Role Phone Cinthya Ray MD Primary Care Provider [phone] Mayito Acuña PharmD Unavailable [phone] Encounter Details Date Type Department Care Team (Late st Contact Info) Description 03/05/2024 Orders Only [facility] MEDICINE [address] [place], [place] [phone] Cinthya Ray MD 230 [place], [place] [phone] Type 2 diabetes mellitus with other specified complication, with long-term current use of insulin ([facility]) (Primary Dx) Social History Tobacco Use Types [...] Description 02/07/2025 2:00 PM EST Office Visit [facility] MEDICINE [address] [place] [address] Cinthya Ray MD 230 [place] [address] 02/15/2025 9:00 AM EST Office Visit [facility] ADULT DENTAL 505 [place] [address] ShaniRhonaThompson 505 [place] [address] 02/22/2025 9:00 AM EST Office Visit [facility] ADULT DENTAL 505 [place] [address] Shani Thompson 505 [place] [address] documented as of this encounter Goals Goal [...] documented as of this encounter Care Teams National Accounts Recruiter Relationship Specialty Start Date End Date Cinthya Ray MD 230 [place] [address] PCP - General Family Medicine 10/23/11 Mayito Acuña PharmD 230 [place] [address] Pharmacist Internal Medicine 03/07/23 04/22/24 documented as of this encounter
--- OUTSIDE RECORDS SUMMARY | 2025-01-11 10:55 | XMS_ITS | Encounter Summary ---
Author Organization [employer] Address [address] [place] [address] 7 [place] [address] Care Team Providers Care Organ Tuner Name Role Phone Cinthya Ray MD Primary Care Provider [phone] Mayito Acuña PharmD Unavailable [phone] Reason for Visit * Reason Onset Date Comments Med Refill 10/30/2023 Encounter Details Date Type Department Care Team (Late st Contact Info) Description 10/30/2023 Refill [facility] CHC MED & PEDS [address] [place], [place] [phone] Cinthya Ray MD 230 [place], [place] [phone] Type 2 diabetes mellitus with hyperglycemia, without long-term current use of insulin ([facility]) Social History Tobacco Use Types Packs/Day [...] Office Visit [facility] MEDICINE 230 [place] [address] Cinthya Ray MD 230 [place] [address] 02/15/2025 9:00 AM EST Office Visit [facility] ADULT DENTAL 505 [place] [address] Shani, Thompson 505 [place] [address] 02/22/2025 9:00 AM EST Office Visit [facility] ADULT DENTAL 505 [place] [address] Shani, Thompson 505 [place] [address] documented as of this encounter Goals Goal [...] documented as of this encounter Care Teams Organ Tuner Relationship Specialty Start Date End Date Cinthya Ray MD 230 [place] [address] PCP - General Family Medicine 10/23/11 Mayito Acuña PharmD [address] [place] [address] Pharmacist Internal Medicine 03/07/23 04/22/24 documented as of this encounter
--- OUTSIDE RECORDS SUMMARY | 2025-01-11 10:55 | XMS_ITS | Encounter Summary ---
Author Organization [email or web address] Address [address] [place] [address] 7 [place] [address] Care Team Providers Care Nurse Wound Name Role Phone Cinthya Ray MD Primary Care Provider [phone] Mayito Acuña PharmD Unavailable [phone] Reason for Visit * Reason Comments Med Refill Encounter Details Date Type Department Care Team (Late st Contact Info) Description 08/31/2022 Refill [facility] MEDICINE 230 [place] [address] Starla Nuñez MD 230 [place], [place] [phone] Injury of head, initial encounter Social History [...] Visit [facility] MEDICINE [address] [place] [address] Cinthya Ray MD 230 [place] [address] 02/15/2025 9:00 AM EST Office Visit [facility] ADULT DENTAL 505 [place] [address] Rhona Mcleodricio 505 [place] [address] 02/22/2025 9:00 AM EST Office Visit [facility]ULT D[facility] 505 [place], [place] [phone] Rhona Mcleodricio 505 [place] [address] documented as of this encounter Visit Diagnoses Diagnosis Injury of head, initial encounter documented in this encounter Care Teams Nurse Wound Relationship Specialty Start Date End Date Cinthya Ray MD [address] [place] [address] PCP - General Family Medicine 10/23/11 Mayito Acuña, Citlali [address] [place] [address] Pharmacist Internal Medicine 03/07/23 04/22/24 documented as of this encounter
--- OUTSIDE RECORDS SUMMARY | 2025-01-11 10:55 | XMS_ITS | Encounter Summary ---
Author Organization [employer] Address [address] [place] [address] 7 [place] [address] Care Team Providers Care Trolley Collector Name Role Phone Cinthya Ray MD Primary Care Provider [phone] Mayito Acuña PharmD Unavailable [phone] Reason for Visit * Reason Onset Date Comments Med Refill 11/02/2023 Encounter Details Date Type Department Care Team (Late st Contact Info) Description 11/02/2023 Refill [facility] MEDICINE [address] [place], [place] [phone] Cinthya Ray MD 230 [place], [place] [phone] Social History Tobacco Use Types Packs/Day Years [...] but unableto make. Pt will come to [facility] today open till 8pm. [...] Gill Sent: 11/10/2023 5:32 PM EDT To: [facility] Front Office Subject: Appointment Request Appointment Request From: Sonali Rosa With Provider: Cinthya Ray MD [[facility]] Preferred Date Range: 11/11/2023 - [...] EST Office Visit [facility] MEDICINE [address] [place] [address] Cinthya Ray MD [address] [place] [address] 02/15/2025 9:00 AM EST Office Visit [facility] ADULT DENTAL [address] [place] [address] [facility] 505 [place] [address] 02/22/2025 9:00 AM EST Office Visit [facility] ADULT D[facility] [address] [place] [address] [facility] 505 [place] [address] documented as of this encounter Goals Goal [...] documented as of this encounter Care Teams Trolley Collector Relationship Specialty Start Date End Date Cinthya Ray MD [address] [place] [address] PCP - General Family Medicine 10/23/11 Mayito Acuña, DyanD [address] [place] [address] Pharmacist Internal Medicine 03/07/23 04/22/24 documented as of this encounter
--- OUTSIDE RECORDS SUMMARY | 2025-01-11 10:55 | XMS_ITS | Clinical Summary ---
Author Organization [facility] Address [address] [place] [address] Phone Care Team Providers Care Vehicle Operator Name Role Phone Unavailable Primary Care Provider Unavailabl e Allergies No known active allergies Medical History Medical History Date Comments Diabetes mellitus ([facility] V24, [facility] V28) Social History Tobacco Use Types [...] 02/26/2002 Cervical Cancer Screening: Pap Smear 02/26/2013 HPV Vaccines (1 - 3-dose SCDM series) 02/26/2019 Cholesterol Screening (Lipid Panel) 01/13/2022 Social Influencers of Health Screening 01/13/2022 Depression Screening 02/11/2024 Diabetes: Annual Urine Albumin-Creatinine Ratio (uACR) 02/29/2024 Diabetes: Blood Sugar Control Test (HGBA1C) 07/26/2024 01/26/2024 COVID-19 Vaccine ( season) 2024 02/22/2021, 07/01/2020, 06/03/2020 Influenza Vaccine (#1) 2024 8, 04/10/2017, 10/24/2014, Additional history exists DTaP,Tdap,and Td Vaccines (9 - Td or Tdap) 08/28/2025 08/29/2015, 01/06/2012, 09/17/2005, Additional history exists RSV Immunization Adult Patients (1 - 1-dose 75+ series) 02/26/2067 HIB [...] Completed 11/26/2023 Hepatitis C Screening Completed 11/26/2023 Meningococcal B Vaccine Aged Out No l onger eligible based on patient's age to complete this topic RSV Immunization Patients Under 20 months Aged Out No longer eligible based on patient's age to complete this topic Varicella Vaccines Aged Out No longer eligible based on patient's age to complete this topic Insurance MEDICAID - [place]
--- OUTSIDE RECORDS SUMMARY | 2025-01-11 10:55 | XMS_ITS | Encounter Summary ---
Author Organization [employer] Address [address] [place] [address] 7 [place] [address] Care Team Providers Care Drum Worker Name Role Phone Cinthya Ray MD Primary Care Provider [phone] Reason for Visit * Reason Comments Med Change Request Encounter Details Date Type Department Care Team ([facility] st Contact Info) Description 07/20/2024 Refill [facility] MEDICINE 230 [place], [place] [phone] Cinthya Ray MD 230 [place] [address] Type 2 diabetes mellitus with hyperglycemia, with long-term current use of insulin ([facility]) Social History Tobacco [...] 2:00 PM EST Office Visit [facility] MEDICINE 230 [place] [address] Cinthya Ray MD 230 [place] [address] 02/15/2025 9:00 AM EST Office Visit [facility] ADULT DENTAL 505 [place] [address] Thompson Mcleod [address] [place] [address] 02/22/2025 9:00 AM EST Office Visit [facility] ADULT DENT[facility] 505 [place] [address] Thompson Mcleod [address] [place] [address] documented as of this encounter Goals Goal [...] documented as of this encounter Care Teams Drum Worker Relationship Specialty Start Date End Date Cinthya Ray MD 230 [place] [address] PCP - General Family Medicine 10/23/11 documented as of this encounter
--- OUTSIDE RECORDS SUMMARY | 2025-01-11 10:55 | XMS_ITS | Encounter Summary ---
Author Organization [employer] Address [address] [place] [address] 7 [place] [address] Care Team Providers Care Screener Operator Name Role Phone Cinthya Ray MD Primary Care Provider [phone] Mayito Acuña PharmD Unavailable [phone] Reason for Visit * Reason Onset Date Comments Med Refill 09/29/2023 Encounter Details Date Type Department Care Team (Late st Contact Info) Description 09/29/2023 Refill [facility] MEDICINE 230 [place], [place] [phone] Cinthya Ray MD 230 [place], [place] [phone] Type 2 diabetes mellitus with hyperglycemia, without long-term current use of insulin ([facility]) Social History Tobacco Use Types Packs/Day Years [...] Answer Date of Assessment Author Patient Health Questionnaire-2 Score 4 09/29/2023 9:48 AM EDT Evelia Ortiz LMHC * How difficult have these problems made it for you to do your work, take care of things at home, or get along with other people? Answer Date of Assessment Author Very difficult 09/29/2023 9:48 AM EDT Evelia Doan LMHC * Over the past 2 weeks, how often have you been bothered by any of the following problems? Question Answer Date of Assessment Author Little interest or pleasure in doing things More than half the days 09/29/2023 9:48 AM Evelia Payton LMHC Feeling down, depressed, or hopeless More than half the days 09/29/2023 9:48 AM Evelia Payton LMHC Trouble falling or staying asleep, or sleeping too much Several days 09/29/2023 9:48 AM Evelia Payton LMHC Feeling tired or having little energy More than half the days 09/29/2023 9:48 AM Evelia Payton LMHC Poor appetite or overeating Not at all 09/29/2023 9:48 AM BAOT Evelia Ortiz LMHC Feeling bad about yourself - or that you are a failure or have let yourself or your family down Several days 09/29/2023 9:48 AM EDT Evelia Ortiz LMHC Trouble concentrating on things, such as reading the newspaper or watching television More than half the days 09/29/2023 9:48 AM EDEvelia Rodriguez LMHC Moving or speaking so slowly that other people could have noticed? Or the opposite - being so fidgety or restless that you have been moving around a lot more than usual. Several days 09/29/2023 9:48 AM Evelia Payton LMHC Thoughts that you would be better off or hurting yourself in some way Not at all 09/29/2023 9:48 AM Evelia Payton LMHC Patient Health Questionnaire-9 Score 11 09/29/2023 9:48 AM Evelia Payton LMHC documented as of this encounter Plan of Treatment Upcoming Encounters Date Type Department Care Team (Late st Contact Info) Description 02/07/2025 2:00 PM EST Office Visit [facility] MEDICINE 230 [place] [address] Cinthya Ray MD 230 [place] [address] 02/15/2025 9:00 AM EST Office Visit [facility] ADULT DENTAL 505 [place] [address] Thompson Mcleod 505 [place] [address] 02/22/2025 9:00 AM EST Office Visit [facility] ADULT DENTAL 505 [place] [address] Rhona Mcleodricio 505 [place] [address] documented as of this encounter Goals Goal [...] documented as of this encounter Care Teams Screener Operator Relationship Specialty Start Date End Date Cinthya Ray MD 230 [place] [address] PCP - General Family Medicine 10/23/11 Mayito Acuña PharmD [address] [place] [address] Pharmacist Internal Medicine 03/07/23 04/22/24 documented as of this encounter
--- OUTSIDE RECORDS SUMMARY | 2025-01-11 10:55 | XMS_ITS | Encounter Summary ---
Author Organization [employer] Address [address] [place] [address] 7 [place] [address] Care Team Providers Care Cd Mixer Helper Name Role Phone Cinthya Ray MD Primary Care Provider [phone] Mayito Acuña PharmD Unavailable [phone] Reason for Visit * Reason Onset Date Comments Appointment Request 09/02/2022 Encounter Details Date Type Department Care Team ([facility] st Contact Info) Description 09/02/[address] [facility] CHC MED & PEDS [address] [place], [place] [phone] Cinthya Ray MD [address] [place], [place] [phone] Appointment Request Social History Tobacco Use Types [...] her kidney failure.' Please contact pt at [phone] documented in this encounter Plan of Treatment Upcoming Encounters Date Type Department Care Team (Late st Contact Info) Description 02/07/2025 2:00 PM EST Office Visit [facility] MEDICINE 230 [place] [address] Cinthya Ray MD [address] [place] [address] 02/15/2025 9:00 AM EST Office Visit [facility] ADULT DENTAL 505 [place] [address] Shani, Thompson 505 [place] [address] 02/22/2025 9:00 AM EST Office Visit [facility] ADULT DENTAL 505 [place] [address] Shani, Thompson [address] [place] [address] documented as of this encounter Visit Diagnoses Not on filedocumented in this encounter Care Teams Cd Mixer Helper Relationship Specialty Start Date End Date Cinthya Ray MD [address] [place] [address] PCP - General Family Medicine 10/23/11 Mayito Acuña, PharmD [address] [place] [address] Pharmacist Internal Medicine 03/07/23 04/22/24 documented as of this encounter
--- OUTSIDE RECORDS SUMMARY | 2025-01-11 10:55 | XMS_ITS | Encounter Summary ---
Author Organization [employer] Address [address] [place] [address] 7 [place] [address] Care Team Providers Care Child Development Consultant Name Role Phone Cinthya Ray MD Primary Care Provider [phone] Mayito Acuña PharmD Unavailable [phone] Reason for Visit * Reason Onset Date Comments Med Refill 10/30/2023 Encounter Details Date Type Department Care Team (Late st Contact Info) Description 10/30/2023 Refill [facility] MEDICINE 230 [place], [place] [phone] Cinthya Ray MD 230 [place], [place] [phone] Social History Tobacco Use Types Packs/Day Years [...] 2:00 PM EST Office Visit [facility] MEDICINE [address] [place] [address] Cinthya Ray MD 230 [place] [address] 02/15/2025 9:00 AM EST Office Visit [facility]ULT [facility] 505 [place] [address] [facility] Thompson 505 [place] [address] 02/22/2025 9:00 AM EST Office Visit [facility] ADULT DENTAL 505 [place] [address] [facility] [address] [place] [address] documented as of this encounter Goals Goal [...] documented as of this encounter Care Teams Child Development Consultant Relationship Specialty Start Date End Date Cinthya Ray MD 230 [place] [address] PCP - General Family Medicine 10/23/11 Mayito Acuña, PharmD 230 [place] [address] Pharmacist Internal Medicine 03/07/23 04/22/24 documented as of this encounter
--- OUTSIDE RECORDS SUMMARY | 2025-01-11 10:55 | XMS_ITS | Encounter Summary ---
Author Organization [employer] Address 75 [facility] 7 [place] [address] Care Team Providers Care Balance Bridge Inspector Name Role Phone Cinthya Ray MD Primary Care Provider [phone] Mayito Acuña PharmD Unavailable [phone] Reason for Visit * Reason Onset Date Comments Med Refill 09/29/2023 Encounter Details Date Type Department Care Team (Late st Contact Info) Description 09/29/2023 Refill [facility] CHC MED & PEDS [address] [place], [place] [phone] Cinthya Ray MD 230 [place], [place] [phone] Type 2 diabetes mellitus with hyperglycemia, without long-term current use of insulin ([facility]) Social History Tobacco Use Types [...] days 09/29/2023 9:48 AM EDEvelia Rodriguez LMHC Poor appetite or overeating Not at all 09/29/2023 9:48 AM Evelia Payton LMHC Feeling bad about yourself - or that you are a failure or have let yourself or your family down Several days 09/29/2023 9:48 AM Evelia Payton LMHC Trouble concentrating on things, such as reading the newspaper or watching television More than half the days 09/29/2023 9:48 AM Evelia Payton LMHC Moving or speaking so slowly that [...] 2:00 PM EST Office Visit [facility] MEDICINE 230 [place] [address] Cinthya Ray MD [address] [place] [address] 02/15/2025 9:00 AM EST Office Visit [facility] ADULT DENTAL 505 [place] [address] Rhona Mcleodricio 505 [place] [address] 02/22/2025 9:00 AM EST Office Visit [facility] ADULT DENTAL 505 [place] [address] Shani, Thompson 505 [place] [address] documented as of this encounter Goals Goal [...] documented as of this encounter Care Teams Balance Bridge Inspector Relationship Specialty Start Date End Date Cinthya Ray MD 230 [place] [address] PCP - General Family Medicine 10/23/11 Mayito Acuña PharmD [address] [place] [address] Pharmacist Internal Medicine 03/07/23 04/22/24 documented as of this encounter
--- OUTSIDE RECORDS SUMMARY | 2025-01-11 10:55 | XMS_ITS | Encounter Summary ---
Author Organization [employer] Address 75 [facility] 7 [place] [address] Care Team Providers Care Surveillance Dual Rate Officer Name Role Phone Cinthya Ray MD Primary Care Provider [phone] Mayito Acuña PharmD Unavailable [phone] Reason for Visit * Reason Onset Date Comments Med Refill 01/03/2023 Encounter Details Date Type Department Care Team (Late st Contact Info) Description 01/03/2023 Refill [facility] MEDICINE 230 [place], [place] [phone] Cinthya Ray MD 230 [place], [place] [phone] Social History Tobacco Use Types Packs/Day Years [...] Description 02/07/2025 2:00 PM EST Office Visit [facility] MEDICINE [address] [place] [address] Cinthya Ray MD [address] [place] [address] 02/15/2025 9:00 AM EST Office Visit [facility] ADULT DENTAL 505 [place] [address] [facility] [address] [place] [address] 02/22/2025 9:00 AM EST Office Visit [facility] ADULT DENTAL 505 [place] [address] [facility] 505 [place] [address] documented as of this encounter Visit Diagnoses Not on filedocumented in this encounter Care Teams Surveillance Dual Rate Officer Relationship Specialty Start Date End Date Cinthya Ray MD [address] [place] [address] PCP - General Family Medicine 10/23/11 Mayito Acuña, PharmD [address] [place] [address] Pharmacist Internal Medicine 03/07/23 04/22/24 documented as of this encounter
--- OUTSIDE RECORDS SUMMARY | 2025-01-11 10:55 | XMS_ITS | Encounter Summary ---
Author Organization [employer] Address [address] [place] [address] 7 [place] [address] Care Team Providers Care Hand Scraper Name Role Phone Cinthya Ray MD Primary Care Provider [phone] Mayito Acuña PharmD Unavailable [phone] Reason for Visit * Reason Onset Date Comments Med Refill 11/02/2023 Encounter Details Date Type Department Care Team (Late st Contact Info) Description 11/02/2023 Refill [facility] MED & PEDS [address] [place], [place] [phone] Cinthya Ray MD 230 [place], [place] [phone] Type 2 diabetes mellitus with hyperglycemia, without long-term current use of insulin ([facility]) Social History Tobacco Use Types Packs/Day [...] Visit [facility] MEDICINE 230 [place] [address] Cinthya Ray MD [address] [place] [address] 02/15/2025 9:00 AM EST Office Visit [facility] ADULT DENTAL 505 [place] [address] Shani, Thompson 505 [place] [address] 02/22/2025 9:00 AM EST Office Visit [facility] ADULT DENT[facility] 505 [place] [address] Shani, Thompson 505 [place] [address] documented as of this encounter Goals Goal [...] as of this encounter Care Teams Hand Scraper Relationship Specialty Start Date End Date Cinthya Ray MD 230 [place] [address] PCP - General Family Medicine 10/23/11 Mayito Acuña PharmD [address] [place] [address] Pharmacist Internal Medicine 03/07/23 04/22/24 documented as of this encounter
== END 2025-01-11 11:45 | disposition home or self-care (01) ==
LOC: HO.HGI 09:49
PROVIDERS: PCP Family Medicine; Visit Provider Nurse Practitioner
DX: K22.70 Barrett's esophagus without dysplasia (principal); K22.10 Ulcer of esophagus without bleeding; K91.5 Postcholecystectomy syndrome
CPT/HCPCS: 99214

== ENCOUNTER 2025-02-08 08:46 | Outpatient (REF) | payer MEDICAID, SELFPAY ==
--- OUTSIDE RECORDS SUMMARY | 2025-02-07 14:00 | XMS_ITS | Encounter Summary ---
Author Organization [employer] Address [address] [place] [address] Care Team Providers Care Perinatal Breastfeeding Assistant Name Role Phone Cinthya Ray MD Primary Care Provider [phone] Encounter Details Date Type Department Care Team (Latest Contact Info) Description 02/07/2025 2:00 PM EST Office Visit [facility] [address] [place], [place] [phone] Cinthya Ray MD [address] [place], [place] [phone] Other mixed anxiety disorders (Primary Dx); Severe episode of recurrent major depressive disorder, without psychotic features (CMS/HCC) (HCC); Mild intermittent asthma without complication; Obstructive sleep apnea syndrome; Chronic nonintractable headache, unspecified headache type; Chronic migraine without aura with status migrainosus, not intractable; Chronic left shoulder pain; History of syphilis; History of sexually transmitted disease; Recurrent UTI; Recurrent candidiasis of vagina; History of kidney stones; Sen's esophagus without dysplasia; Gastroesophageal reflux disease, unspecified whether esophagitis present; Metabolic dysfunction-associated steatotic liver disease (MASLD); Post-cholecystectomy syndrome; Postcholecystectomy diarrhea; Type 2 diabetes mellitus with hypoglycemia without coma, with long-term current use of insulin (HCC); Allergic rhinitis, unspecified seasonality, unspecified trigger; Mixed dyslipidemia; Tachycardia; Weight loss; Routine screening for STI (sexually transmitted infection) Social History Tobacco Use Types Packs/Day Years [...] Answer Date Recorded Patient Health Questionnaire-9 Score 8 02/07/2025 Patient Health Questionnaire-9 Score 8 02/07/2025 Last PHQ-9: Questionnaire Data Not on file 1 Housing Stability Answer Date Recorded What is your housing situation today? I have trev villalba 02/07/[address] you li ve. Do you have problems with any of the following? Inadequate heat 02/07/2025 Food Insecurity Answer Date Recorded Within the past 12 months, y ou worried that your food would run out before you got money to buy more: Often true 2024 Within the past 12 months,th e food you bought just didn't last and you didn't have enough money to get more: Sometimes True 02/07/2025 Transportation Answer Date Recorded In the past 12 months, has l ack of transportation kept you from medical appts, meetings, work or from getting things needed for daily living? No 02/07/2025 Utilities Answer Date Recorded In the past 12 months, has t he electric, gas, oil or water company threatened to shut off services in your home? No 02/07/2025 Depression Answer Date Recorded Patient Health Questionnaire-2 Score 1 02/07/2025 Internet Access Answer Date Recorded Internet Access Q1 Yes 02/07/2025 Internet Access Q2 Not on file 02/07/2025 Comments No Sex and Gender Information Value Date Recorded Sex Assigned at Female 12/10/2021 10:14 AM EDT Legal Sex Female 10:14 AM EDT Gender Identity Female 12/10/2021 10:14 AM EDT Sexual Orientation Straight 12/10/2021 10 :14 AM EDT documented as of this encounter Last Filed Vital Signs Vital Sign Reading Time Taken Comments Blood Pressure 110/78 02/07/2025 2:52 PM EST Pulse 78 02/07/2025 2:52 PM EST Temperature 36 C (96.8 F) 02/07/2025 2:52 PM EST Respiratory Rate 16 02/07/2025 2:52 PM EST Oxygen Saturation - - Inhaled Oxygen Concentration - - Weight 84.9 kg (187 lb 3.2 oz) 02/07/2025 2:52 P M EST Height - - Body Mass Index 34.24 07/21/2024 2:31 PM EDT documented in this encounter Functional Status * SBIRT - Alcohol Question Answer Date of Assessment Author How many times in the past y ear have you had 5 or more (for men) or 4 or more (for women) drinks in a day? 0 02/07/2025 1:45 PM EST Susie Jaramillo MA Score 0 02/07/2025 1:45 PM EST Janey Neal MA * SBIRT - Drugs Question Answer Date of Assessment Author How many times in the past y ear have you used an illegal drug or used a prescription medication for non-medical reasons? 0 02/07/2025 1:45 PM EST Nay Jaramillo MA Score 0 02/07/2025 1:45 PM EST Janey Neal MA * Over the past 2 weeks, how often have you been bothered by any of the following problems? Question Answer Date of Assessment Author Patient Health Questionnaire -2 Score 1 02/07/2025 1:46 PM Susie Dave MA * Little interest or pleasure in doing things Answer Date of Assessment Author Not at all 02/07/2025 1:46 PM Janey Dave MA * Feeling down, depressed, or hopeless Answer Date of Assessment Author Several days 02/07/2025 1:46 PM Janey Dave MA * Trouble falling or staying asleep, or sleeping too much Answer Date of Assessment Author Nearly every day 02/07/2025 1:46 PM Janey Dave MA * Feeling tired or having little energy Answer Date of Assessment Author Several days 02/07/2025 1:46 PM Janey Dave MA * Poor appetite or overeating Answer Date of Assessment Author Nearly every day 02/07/2025 1:46 PM Janey Dave MA * Feeling bad about yourself - or that you are a failure or have let yourself or your family down Answer Date of Assessment Author Not at all 02/07/2025 1:46 PM Janey Dave MA * Trouble concentrating on things, such as reading the newspaper or watching television Answer Date of Assessment Author Not at all 02/07/2025 1:46 PM Janey Dave MA * Moving or speaking so slowly that other people could have noticed? Or the opposite - being so fidgety or restless that you have been moving around a lot more than usual. Answer Date of Assessment Author Not at all 02/07/2025 1:46 PM Janey Dave MA * Thoughts that you would be better off or hurting yourself in some way Answer Date of Assessment Author Not at all 02/07/2025 1:46 PM Janey Dave MA * Patient Health Questionnaire-9 Score Answer Date of Assessment Author 8 02/07/2025 1:46 PM Janey Dave MA * Over the last 2 weeks, how often have you been bothered by any of the following problems? Question Answer Date of Assessment Author Feeling nervous, anxious, or on edge 1 02/07/2025 1:46 PM Susie Dave MA Not being able to stop or control worrying 1 02/07/2025 1:46 PM Susie Dave MA Worrying too much about different things 0 02/07/2025 1:46 PM Susie Dave MA Trouble relaxing 1 02/07/2025 1:46 PM Janey Mireles MA Being so restless that it is hard to sit still 0 02/07/2025 1:46 PM Susie Dave MA Becoming easily annoyed or irritable 2 02/07/2025 1:46 PM Susie Dave MA Feeling afraid as if somethi ng awful might happen 0 02/07/2025 1:46 PM Susie Dave MA ALBERTINA-7 Total Score 5 02/07/2025 1:46 PM Janey Dave MA * How difficult have these problems made it for you to do your work, take care of things at home, or get along with other people? Answer Date of Assessment Author Not difficult at all 02/07/2025 1:46 PM Janey Price MA documented as of this encounter Miscellaneous Notes * Assessment & Plan Note - Cinthya Ray MD - 02/07/2025 5:52 AM ESTAssociated Problem(s): Depression - MDD vs. bipolar - severe exacerbation of Depression w/ SI in October 2021. - completed Partial Hospitalization Program at [facility] 11/09/21 - 11/23/21 - current medication: none -Previous medication treatment Hx: venlafaxine was self-discontinued; trazodone was prescribed by psychiatrist while she was attending [facility], but pt self- discontinued due to ineffectivenss; sertraline 50 mg daily, patient self-discontinued. - previously seeing [facility] clinician and waiting for psychiatrist, patient has not been engaged in behavioral health therapy currently. - contacted by [facility] behavioral health service and was referred to off-site service - patient has developed healthy coping skills * Assessment & Plan Note - Cinthya Ray MD - 02/07/2025 5:52 AM ESTAssociated Problem(s): Anxiety disorder with panic attacks - MDD vs. bipolar - severe exacerbation of Depression w/ SI in October 2021. - completed Partial Hospitalization Program at [facility] 11/09/21 - 11/23/21 - current medication: none -Previous medication treatment Hx: venlafaxine was self-discontinued; trazodone was prescribed by psychiatrist while she was attending [facility], but pt self- discontinued due to ineffectivenss; sertraline 50 mg daily, patient self-discontinued. - previously seeing [facility] clinician and waiting for psychiatrist, patient has not been engaged in behavioral health therapy currently. - contacted by [facility] behavioral health service and was referred to off-site service - patient has developed healthy coping skills documented in this encounter Plan of Treatment Upcoming Encounters Date Type Department Care Team (Late st Contact Info) Description 02/15/2025 9:00 AM EST Office Visit [facility] [address] [place], [place] [phone] Thompson Mcleod [address] [place] [address] 02/22/2025 9:00 AM EST Office Visit [facility] [address] [place], [place] [phone] Thompson Mcleod [address] [place] [address] 02/24/2025 1:45 PM EST Procedure Visit [facility] [address] [place] [address] Abigail Darling, CNM [address] [place] [address] Scheduled Orders Name Type Priority Associated Diagnoses Orde r Schedule Lipid Panel with Reflex to Direct LDL Lab Routine Mixed dyslipidemia Expected: 02/07/2025 (Approximate), Expires: 02/07/2026 Albumin, Random Urine W/Creatinine Lab Routine Type 2 diabetes mellitus with hypoglycemia without coma, with long-term current use of insulin (HCC) Expected: 02/07/2025 (Approximate), Expires: 02/07/2026 Comprehensive Metabolic Panel Lab Routine Type 2 diabetes mellitus with hypoglycemia without coma, with long-term current use of insulin (HCC) Mixed dyslipidemia Tachycardia Expected: 02/07/2025 (Approximate), Expires: 02/07/2026 TSH with Reflex to Free T4 Lab Routine Tachycardia Weight loss Expected: 02/07/2025 (Approximate), Expires: 02/07/2026 CBC auto differential Lab Routine Tachycardia Weight loss Expected: 02/07/2025 (Approximate), Expires: 02/07/2026 Ferritin Lab Routine Weight loss Expected: 02/07/2025 (Approximate), Expires: 02/07/2026 Iron And Total Iron Binding Capacity Lab Routine Weight loss Expected: 02/07/2025, Expires: 02/07/2026 Reticulocyte Count Lab Routine Weight loss Expected: 02/07/2025, Expires: 02/07/2026 Vitamin B12 (Cobalamin) and Folate Panel, Serum Lab Routine Type 2 diabetes mellitus with hypoglycemia without coma, with long-term current use of insulin (HCC) Weight loss Expected: 02/07/2025 (Approximate), Expires: 02/07/2026 Syphilis Screen Lab Routine Routine screening for STI (sexually transmitted infection) Expected: 02/07/2025 (Approximate), Expires: 02/07/2026 Hepatitis C Antibody with Reflex to HCV, RNA, Quantitative, Real-Time PCR Lab Routine Routine screening for STI (sexually transmitted infection) Expected: 02/07/2025 (Approximate), Expires: 02/07/2026 Chlamydia/N. Gonorrhoeae RNA, TMA, Urogenitial Microbiology Routine Routine screening for STI (sexually transmitted infection) Expected: 02/07/2025 (Approximate), Expires: 02/07/2026 HIV-1/2 Antigen and Antibodies, Fourth Generation, with Reflexes Lab Routine Routine screening for STI (sexually transmitted infection) Expected: 02/07/2025 (Approximate), Expires: 02/07/2026 Hepatitis B surface antigen, EIA Lab Routine Routine screening for STI (sexually transmitted infection) Expected: 02/07/2025 (Approximate), Expires: 02/07/2026 Chlamydia/N. Gonorrhoeae, PCR, Urine Lab Routine Routine screening for STI (sexually transmitted infection) Ordered: 02/08/2025 documented as of this encounter Goals Goal Patient Goal Type Associated Problems Recent Progress Patient-Stated? Author Blood Pressure < 140/90 Blood Pressure 110/78(2024 2:52 PM EST) No Mayito Acuña, Citlali Hemoglobin A1c < 7 Result Component 6.5( 1:48 PM EST) No Mayito Acuña, Citlali Help patients manage their type 2 diabetes [...] has chronic kidney disease No Naima Olea Patient has chronic kidney disease Care Plan Patient has chronic kidney disease No Momo Vila Patient has chronic kidney disease Care Plan Patient has chronic kidney disease No Magali Mathur Patient has chronic kidney disease Care Plan Patient has chronic kidney disease No Janey Jaramillo MA Patient has chronic kidney disease Care Plan Patient has chronic kidney disease No Janey Jaramillo [place] Patient has chronic kidney disease Care Plan Patient has chronic kidney disease No David Ceballos documented as of this encounter Procedures Procedure Name Priority Date/Time Associated Diagnosis Comments POCT GLYCOSYLATED HEMOGLOBIN (HGB A1C) Routine 02/07/2025 1:48 PM EST Type 2 diabetes mellitus with hypoglycemia without coma, with long-term current use of insulin ([facility]) POCT GLUCOSE (CPT-71904) Routine 02/07/2025 1:48 PM EST Type 2 diabetes mellitus with hypoglycemia without coma, with long-term current use of insulin ([facility]) documented in this encounter Results * (ABNORMAL) POCT glycosylated hemoglobin (Hgb A1c) (02/07/2025 1:48 PM EST) Hemoglobin A1C 6.5(A) 4.0 - 5.7 % QC Media Lot # [id number] Lot# Expiration Date ,027 Blood Capillary blood specimen / Unknown 02/07/2025 1:48 PM EST Cinthya Ray MD POINT OF CARE TEST ENTER/EDIT OR DERABLES Final Result * POCT glucose manually resulted ([id number]) (02/07/2025 1:48 PM EST) Glucose Blood, POC 184 60 - 200 mg/dL QC Media Lot # [id number] Lot# Expiration Date , Blood Capillary blood specimen / Unknown 02/07/2025 1:48 PM EST us Cinthya Ray MD POINT OF CARE TEST ENTER/EDIT OR DERABLES Final Result documented in this encounter Visit Diagnoses Diagnosis Other mixed anxiety disorders- Primary Severe episode of recurrent major depressive disorder, without psychotic features (CMS/HCC) (HCC) Mild intermittent asthma without complication Obstructive sleep apnea syndrome Obstructive sleep apnea (adult) (pediatric) Chronic nonintractable headache, unspecified headache type Chronic migraine without aura with status migrainosus, not intractable Chronic left shoulder pain Pain in joint, shoulder region History of syphilis History of sexually transmitted disease Personal history of other infectious and parasitic disease Recurrent UTI Urinary tract infection, site not specified Recurrent candidiasis of vagina History of kidney stones Sen's esophagus without dysplasia Gastroesophageal reflux disease, unspecified whether esophagitis present Metabolic dysfunction-associated steatotic liver disease (MASLD) 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 Type 2 diabetes mellitus with hypoglycemia without coma, with long-term current use of insulin (HCC) Allergic rhinitis, unspecified seasonality, unspecified trigger Mixed dyslipidemia Tachycardia Unspecified tachycardia Weight loss Loss of weight Routine screening for STI (sexually transmitted infection) Screening examination for venereal disease documented in this encounter Additional Health Concerns Active Problems Noted Date Diagnosed Date Help patients manage their type 2 diabetes 12/28 Patient has chronic kidney disease 12/28/2024 Patient has chronic kidney disease 01/03/2025 Patient has chronic kidney disease 01/05/2025 Patient has chronic kidney disease 01/14/2025 Patient has chronic kidney disease 01/25/2025 Patient has chronic kidney disease 02/02/2025 Patient has chronic kidney disease 02/02/2025 Patient has chronic kidney disease 02/07/2025 Assessment Noted Time PHQ-9 Depression Total Score: 8 02/08/20 25 1:46 PM EST documented as of this encounter Care Teams Perinatal Breastfeeding Assistant Relationship Specialty Start Date End Date Cinthya Ray MD [address] [place] [address] PCP - General Family Medicine 10/23/11 documented as of this encounter
--- OUTSIDE RECORDS SUMMARY | 2025-02-08 10:40 | XMS_ITS | Encounter Summary ---
Author Organization [employer] Address [address] [place] [address] 7 [place] [address] Care Team Providers Care Can Patcher Name Role Phone Cinthya Ray MD Primary Care Provider [phone] Mayito Acuña PharmD Unavailable [phone] Reason for Visit * Reason Onset Date Comments callback request 12/30/2023 Encounter Details Date Type Department Care Team (Late st Contact Info) Description 12/30/2023 Telephone [facility] [address] [place], [place] [phone] Cinthya Ray MD [address] [place], [place] [phone] callback request Social History Tobacco Use Types [...] book an appointment for follow up Callback [phone] documented in this encounter Plan of Treatment Upcoming Encounters Date Type Department Care Team (Late st Contact Info) Description 02/15/2025 9:00 AM EST Office Visit [facility] [address] [place] [address] ShaniThompson [address] [place] [address] 02/22/2025 9:00 AM EST Office Visit [facility] [address] [place] [address] Rhona Mcleodricio [address] [place] [address] 02/24/2025 1:45 PM EST Procedure Visit [facility] [address] [place] [address] Abigail Darling, COCO [address] [place] [address] documented as of this encounter Goals Goal Patient Goal Type Associated Problems Recent Progress Patient-Stated? Author Blood Pressure < 140/90 Blood Pressure 110/78(2024 2:52 PM EST) No Mayito Acuña PharmD Hemoglobin A1c < 7 Result Component 6.5( 1:48 PM EST) No Mayito Acuña PharmD documented as of this encounter Visit Diagnoses Not on filedocumented in this encounter Additional Health Concerns Assessment Noted Time PHQ-9 Depression Total Score: 11 024 9:48 AM EDT documented as of this encounter Care Teams Can Patcher Relationship Specialty Start Date End Date Cinthya Ray MD [address] [place] [address] PCP - General Family Medicine 10/23/11 Mayito Acuña PharmD [address] [place] [address] Pharmacist Internal Medicine 03/07/23 04/22/24 documented as of this encounter
--- OUTSIDE RECORDS SUMMARY | 2025-02-08 10:40 | XMS_ITS | Encounter Summary ---
Author Organization [employer] Address 75 [facility] 7 [place] [address] Care Team Providers Care Receiving Specialist Name Role Phone Cinthya Ray MD Primary Care Provider [phone] Mayito Acuña PharmD Unavailable [phone] Encounter Details Date Type Department Care Team (Late st Contact Info) Description 03/05/2023 Orders Only [facility] MEDICINE [address] [place], [place] [phone] Cinthya Ray MD 230 [place] [address] Social History Tobacco Use Types Packs/Day Years [...] Description 02/15/2025 9:00 AM EST Office Visit [facility] ADULT DENTAL 505 [place] [address] [facility] 505 [place] [address] 02/22/2025 9:00 AM EST Office Visit [facility] ADULT DENTAL [address] [place] [address] [facility] [address] [place] [address] 02/24/2025 1:45 PM EST Procedure Visit [facility] MEDICINE [address] [place] [address] Abigail Darling, COCO [address] [place] [address] documented as of this encounter Goals Goal Patient Goal Type Associated Problems Recent Progress Patient-Stated? Author Blood Pressure < 140/90 Blood Pressure 110/78(2024 2:52 PM EST) No Mayito Acuña PharmD Hemoglobin A1c < 7 Result Component 6.5( 1:48 PM EST) No Mayito Acuña PharmD documented as of this encounter Visit Diagnoses Not on filedocumented in this encounter Care Teams Receiving Specialist Relationship Specialty Start Date End Date Cinthya Ray MD 230 [place] [address] PCP - General Family Medicine 10/23/11 Mayito Acuña, DyanD [address] [place] [address] Pharmacist Internal Medicine 03/07/23 04/22/24 documented as of this encounter
--- OUTSIDE RECORDS SUMMARY | 2025-02-08 10:40 | XMS_ITS | Encounter Summary ---
Author Organization [employer] Address 75 [facility] 7 [place] [address] Care Team Providers Care Check Viewer Name Role Phone Cinthya Ray MD Primary Care Provider [phone] Encounter Details Date Type Department Care Team ([facility] st Contact Info) Description 06/09/2024 Orders Only [facility] MEDICINE [address] [place], [place] [phone] Abigail Darling CNM 230 [place] [address] Social History Tobacco Use Types Packs/Day Years [...] Description 02/15/2025 9:00 AM EST Office Visit [facility] 505 [place] [address] [facility] 505 [place] [address] 02/22/2025 9:00 AM EST Office Visit [facility] 505 [place] [address] [facility] 505 [place] [address] 02/24/2025 1:45 PM EST Procedure Visit [facility] MEDICINE 230 [place], [place] [phone] Abigail Darling CNM [address] [place], [place] [phone] documented as of this encounter Goals Goal Patient Goal Type Associated Problems Recent Progress Patient-Stated? Author Blood Pressure < 140/90 Blood Pressure 110/78(2024 2:52 PM EST) No Mayito Acuña, PharmD Hemoglobin A1c < 7 Result Component 6.5( 5 1:48 PM EST) No Mayito Acuña, PharmD documented as of this encounter Visit Diagnoses Not on filedocumented in this encounter Additional Health Concerns Assessment Noted Time PHQ-9 Depression Total Score: 14 025 3:57 PM EDT documented as of this encounter Care Teams Check Viewer Relationship Specialty Start Date End Date Cinthya Ray MD 230 [place] [address] PCP - General Family Medicine 10/23/11 documented as of this encounter
--- OUTSIDE RECORDS SUMMARY | 2025-02-08 10:40 | XMS_ITS | Encounter Summary ---
Author Organization [employer] Address [address] [place] [address] [place] [address] Care Team Providers Care Cleaning Maid Name Role Phone Cinthya Ray MD Primary Care Provider [phone] Reason for Visit * Reason Onset Date Comments Appointment Request 12/28/2024 Encounter Details Date Type Department Care Team ([facility] st Contact Info) Description 12/28/2024 Telephone [facility] MEDICINE [address] [place], [place] [phone] Cinthya Ray MD 230 [place], [place] [phone] Appointment Request Social History Tobacco Use Types [...] the past 12 months, has t he [employer] gas, oil or water company threatened to [...] appointment with pcp, stated no immediate concerns. Lace Finisher unable to schedule due to limited availability. Please contact pt at [phone]. documented in this encounter Plan of Treatment Upcoming Encounters Date Type Department Care Team ([facility] st Contact Info) Description 02/15/2025 9:00 AM EST Office Visit [facility] ADULT D[facility]AL 505 [place] [address] Rhona Mcleodricio 505 [place] [address] 02/22/2025 9:00 AM EST Office Visit [facility] ADULT D[facility]AL 505 [place] [address] Rhona Mcleodricio 505 [place] [address] 02/24/2025 1:45 PM EST Procedure Visit [facility] [address] [place] [address] Abigail Darling CNM [address] [place] [address] documented as of this encounter Goals Goal Patient Goal Type Associated Problems Recent Progress Patient-Stated? Author Blood Pressure < 140/90 Blood Pressure 110/78(2024 2:52 PM EST) No Mayito Acuña PharmD Hemoglobin A1c < 7 Result Component 6.5( 1:48 PM EST) No Mayito Acuña PharmD Help patients manage [...] documented as of this encounter Care Teams Cleaning Maid Relationship Specialty Start Date End Date Cinthya Ray MD 230 [place] [address] PCP - General Family Medicine 10/23/11 documented as of this encounter
--- OUTSIDE RECORDS SUMMARY | 2025-02-08 10:40 | XMS_ITS | Encounter Summary ---
Author Organization [employer] Address 75 [facility] 7 [place] [address] Care Team Providers Care Bowling Or Skating Front Desk Clerk Name Role Phone Cinthya Ray MD Primary Care Provider [phone] Reason for Visit * Reason Onset Date Comments Med Refill 06/18/2024 Encounter Details Date Type Department Care Team (Late st Contact Info) Description 06/18/2024 Refill [facility] MED & PEDS [address] [place] [address] Cinthya Ray MD 230 [place] [address] Injury of head, initial encounter Social History [...] Description 02/15/2025 9:00 AM EST Office Visit [facility] ADULT DENTAL 505 [place] [address] Tony Mcleodio 505 [place] [address] 02/22/2025 9:00 AM EST Office Visit [facility] ADULT DENTAL 505 [place] [address] Shani Thompson 505 [place] [address] 02/24/2025 1:45 PM EST Procedure Visit [facility] MEDICINE 230 [place], [place] [phone] Abigail Darling CNM [address] [place] [address] documented as of this encounter Goals Goal [...] documented as of this encounter Care Teams Bowling Or Skating Front Desk Clerk Relationship Specialty Start Date End Date Cinthya Ray MD [address] [place] [address] PCP - General Family Medicine 10/23/11 documented as of this encounter
--- OUTSIDE RECORDS SUMMARY | 2025-02-08 10:40 | XMS_ITS | Encounter Summary ---
Author Organization [employer] Address 75 [facility] 7 [place] [address] Care Team Providers Care Associate Editor Name Role Phone Cinthya Ray MD Primary Care Provider [phone] Mayito Acuña PharmD Unavailable [phone] Encounter Details Date Type Department Care Team (Late st Contact Info) Description 01/31/2024 Orders Only [facility] MEDICINE 230 [place], [place] [phone] Cinthya Ray MD 230 [place] [address] Vitamin D deficiency (Primary Dx) Social History [...] [facility] 505 [place] [address] Rhona Mcleodricio 505 [place] [address] 02/22/2025 9:00 AM EST Office Visit [facility] AD[facility] 505 [place] [address] Shani Thompson 505 [place] [address] 02/24/2025 1:45 PM EST Procedure Visit [facility] MEDICINE 230 [place], [place] [phone] Abigail Darling CNM [address] [place] [address] documented as of this encounter Goals Goal [...] documented as of this encounter Care Teams Associate Editor Relationship Specialty Start Date End Date Cinthya Ray MD 230 [place] [address] PCP - General Family Medicine 10/23/11 Mayito Acuña PharmD [address] [place] [address] Pharmacist Internal Medicine 03/07/23 04/22/24 documented as of this encounter
--- OUTSIDE RECORDS SUMMARY | 2025-02-08 10:40 | XMS_ITS | Encounter Summary ---
Author Organization [employer] Address 75 [facility] 7 [place] [address] Care Team Providers Care Prop Cutter Name Role Phone Cinthya Ray MD Primary Care Provider Mayito Acuña PharmD Unavailable [phone] Encounter Details Date Type Department Care Team (Late st Contact Info) Description 03/05/2024 Orders Only [facility] MEDICINE [address] [place], [place] [phone] Cinthya Ray MD 230 [place], [place] [phone] Type 2 diabetes mellitus with other specified complication, with long-term current use of insulin ([facility]) (Primary Dx) Social History Tobacco [...] Description 02/15/2025 9:00 AM EST Office Visit [facility] ADULT DENTAL 505 [place] [address] [facility] 505 [place] [address] 02/22/2025 9:00 AM EST Office Visit [facility] ADULT DENTAL [address] [place] [address] Shani Thompson 505 [place] [address] 02/24/2025 1:45 PM EST Procedure Visit [facility] MEDICINE [address] [place] [address] Abigail Darling CNM [address] [place] [address] documented as of this encounter Goals Goal [...] documented as of this encounter Care Teams Prop Cutter Relationship Specialty Start Date End Date Cinthya Ray MD 230 [place] [address] PCP - General Family Medicine 10/23/11 Mayito Acuña PharmD 230 [place] [address] Pharmacist Internal Medicine 03/07/23 04/22/24 documented as of this encounter
--- OUTSIDE RECORDS SUMMARY | 2025-02-08 10:40 | XMS_ITS | Encounter Summary ---
Author Organization [employer] Address [address] [place] [address] Care Team Providers Care Manager Global Name Role Phone Cinthya Ray MD Primary Care Provider [phone] Mayito Acuña PharmD Unavailable [phone] Reason for Referral * Consultation (Routine) - Closed Specialty Diagnoses / Procedures Referred By Ramya waller Referred To Contact Orthopaedic Surgery Diagnoses Chronic left shoulder pain Cinthya Ray MD [address] [place] [address] Phone: tel: fax: [facility] Orth[facility] [address] [place] [address] [place] [phone] Phone: tel: Referral ID Status Reason Start Date Expiration Date V isits Requested Visits Authorized [id number] Closed Specialty Services Required 02/05/2024 02/04/2025 6 6 Encounter Details Date Type Department Care Team (Late st Contact Info) Description 02/05/2024 Orders Only [facility] MEDICINE 230 [place], [place] [phone] Cinthya Ray MD [address] [place], [place] [phone] Chronic left shoulder pain (Primary Dx) Social [...] Description 02/15/2025 9:00 AM EST Office Visit [facility] ADULT DENTAL 505 [place] [address] Thompson Mcleod 505 [place] [address] 02/22/2025 9:00 AM EST Office Visit [facility] ADULT DENTAL 505 [place], [place] [phone] Thompson Mcleod [address] [place], [place] [phone] 02/24/2025 1:45 PM EST Procedure Visit [facility] MEDICINE 230 [place], [place] [phone] Abigail Darling CNM [address] [place], [place] [phone] Scheduled Referrals Name Type Priority Associated Diagnoses [...] as of this encounter Care Teams Manager Global Relationship Specialty Start Date End Date Cinthya Ray MD [address] [place] [address] PCP - General Family Medicine 10/23/11 Mayito Acuña, PharmD [address] [place] [address] Pharmacist Internal Medicine 03/07/23 04/22/24 documented as of this encounter
--- OUTSIDE RECORDS SUMMARY | 2025-02-08 10:40 | XMS_ITS | Encounter Summary ---
Author Organization [employer] Address [address] [place] [address] [place], [place] [address] Care Team Providers Care Taker Off Name Role Phone Cinthya aRy MD Primary Care Provider [phone] Mayito Acuña PharmD Unavailable Reason for Visit * Reason Onset Date Comments triage 04/10/2022 Encounter Details Date Type Department Care Team (Late st Contact Info) Description 04/10/2022 Telephone [facility] MEDICINE [address] [place], [place] [phone] Cinthya Ray MD 230 [place], [place] [phone] triage Social History Tobacco Use Types Packs/Day [...] encounter Miscellaneous Notes * Telephone Encounter - Droeen Mosqueda RN - 04/10/2022 12:55 PM EST [...] [facility] 505 [place] [address] Thompson Mcleod 505 [place] [address] 02/22/2025 9:00 AM EST Office Visit [facility] 505 [place], [place] [phone] Thompson Mcleod 505 [place], [place] [phone] 02/24/2025 1:45 PM EST Procedure Visit [facility] MEDICINE [address] [place], [place] [phone] Abigail Darling CNM [address] [place] [address] documented as of this encounter Visit Diagnoses Not on filedocumented in this encounter Care Teams Taker Off Relationship Specialty Start Date End Date Cinthya Ray MD [address] [place] [phone] PCP - General Family Medicine 10/23/11 Mayito Acuña, PharmD [address] [place] [phone] Pharmacist Internal Medicine 03/07/23 04/22/24 documented as of this encounter
--- OUTSIDE RECORDS SUMMARY | 2025-02-08 10:40 | XMS_ITS | Encounter Summary ---
Author Organization [employer] Address [address] [place] [address] Care Team Providers Care New Car Driver Name Role Phone Cinthya Ray MD Primary Care Provider [phone] Mayito Acuña PharmD Unavailable [phone] Encounter Details Date Type Department Care Team (Late st Contact Info) Description 02/26/2022 Abstract [facility] MEDICINE 230 [place] [address] Cinthya Ray MD 230 [place] [address] Social History Tobacco Use Types Packs/Day Years [...] Description 02/15/2025 9:00 AM EST Office Visit [facility] CHC ADULT DENTAL 505 [place], [place] [phone] Thompson Mcleod 505 [place], [place] [phone] 02/22/2025 9:00 AM EST Office Visit [facility] CHC ADULT DENTAL 505 [place], [place] [phone] Thompson Mcleod [address] [place] [address] 02/24/2025 1:45 PM EST Procedure Visit [facility] MEDICINE 230 [place] [address] Abigail Darling CNM 230 [place] [address] documented as of this encounter Visit Diagnoses Not on filedocumented in this encounter Care Teams New Car Driver Relationship Specialty Start Date End Date Cinthya Ray MD [address] [place] [address] PCP - General Family Medicine 10/23/11 Mayito Acuña, DyanD [address] [place] [address] Pharmacist Internal Medicine 03/07/23 04/22/24 documented as of this encounter
--- OUTSIDE RECORDS SUMMARY | 2025-02-08 10:40 | XMS_ITS | Encounter Summary ---
Author Organization [employer] Address 75 [facility] 7 [place] [address] Care Team Providers Care Weights And Measures Sealer Name Role Phone Cinthya Ray MD Primary Care Provider [phone] Mayito Acuña PharmD Unavailable [phone] Encounter Details Date Type Department Care Team ([facility] st Contact Info) Description 08/05/2023 Orders Only [facility] CHC MED & PEDS [address] [place] [address] Izzy Olvera FNP 230 [place] [address] Social History Tobacco Use Types Packs/Day Years [...] Description 02/15/2025 9:00 AM EST Office Visit [facility] ADULT DENTAL 505 [place] [address] [facility] 505 [place] [address] 02/22/2025 9:00 AM EST Office Visit [facility] ADULT DENTAL 505 [place] [address] [facility] [address] [place] [address] 02/24/2025 1:45 PM EST Procedure Visit [facility] MEDICINE 230 [place] [address] Abigail Darling CNM [address] [place] [address] documented as of this encounter Goals Goal Patient Goal Type Associated Problems Recent Progress Patient-Stated? Author Blood Pressure < 140/90 Blood Pressure 110/78(2024 2:52 PM EST) No Mayito Acuña, PharmD Hemoglobin A1c < 7 Result Component 6.5( 1:48 PM EST) No Mayito Acuña, Citlali documented as of this encounter Visit Diagnoses Not on filedocumented in this encounter Additional Health Concerns Assessment Noted Time PHQ-9 Depression Total Score: 0 06/10/19 24 2:55 PM EDT documented as of this encounter Care Teams Weights And Measures Sealer Relationship Specialty Start Date End Date Cinthya Ray MD 230 [place] [address] PCP - General Family Medicine 10/23/11 Mayito Acuña PharmD [address] [place] [address] Pharmacist Internal Medicine 03/07/23 04/22/24 documented as of this encounter
--- OUTSIDE RECORDS SUMMARY | 2025-02-08 10:40 | XMS_ITS | Encounter Summary ---
Author Organization [employer] Address [address] [place] [address] [place] [address] Care Team Providers Care Varnish Melter Helper Name Role Phone Cinthya Ray MD Primary Care Provider [phone] Mayito Acuña PharmD Unavailable Reason for Visit * Reason Onset Date Comments Medication Question 06/14/2022 Encounter Details Date Type Department Care Team (Late st Contact Info) Description 06/14/2022 Telephone [facility] MEDICINE 230 [place], [place] [phone] Cinthya Ray MD 230 [place], [place] [phone] Medication Question Social History Tobacco Use Types [...] Description 02/15/2025 9:00 AM EST Office Visit [facility] ADULT DENTAL 505 [place] [address] [facility] 505 [place] [address] 02/22/2025 9:00 AM EST Office Visit [facility] ADULT DENTAL [address] [place] [address] [facility] 505 [place] [address] 02/24/2025 1:45 PM EST Procedure Visit [facility] MEDICINE 230 [place] [address] Abigail Darling CNM [address] [place] [address] documented as of this encounter Visit Diagnoses Not on filedocumented in this encounter Care Teams Varnish Melter Helper Relationship Specialty Start Date End Date Cinthya Ray MD [address] [place] [address] PCP - General Family Medicine 10/23/11 Mayito Acuña, PharmD [address] [place] [address] Pharmacist Internal Medicine 03/07/23 04/22/24 documented as of this encounter
--- OUTSIDE RECORDS SUMMARY | 2025-02-08 10:40 | XMS_ITS | Clinical Summary ---
Author Organization [employer] Address [address] [place] [address] 7 [place] [address] Care Team Providers Care Ore [employer]er [employer] Name Role Phone Cinthya Stanley MD Primary Care Provider [phone] Allergies No known active allergies Medications * This document contains information received from the source organization and may not represent a complete record from that organization. TRUEplus Lancets 33G miscIndications: Type 2 diabetes mellitus with hyperglycemia (HCC) TEST BLOOD SUGAR FOUR TIMES DAILY 100 each 11 024 Active fluticasone (Flonase) 50 MCG/ACT nasal sprayIndications :Left ear pain SPRAY 2 SPRAYS INTO EACH NOSTRIL IN THE MORNING SHAKE GENTLY/PRIME BEFORE 1ST USE&CLEAN TIP/REPLACE CAP 48 mL 1 024 Active Blood Pressure Monitor kit Check [...] not rinse. 112 g 1 024 Active Glucose 2 g chewable tabletIndication [...] 90 tablet 3 024 Active Continuous Glucose Secretary Bookkeeper (FreeStyle Audrey 3 Goehner) deviceIndication s:Type 2 diabetes mellitus with hyperglycemia, with long-term current use of insulin ([facility]) 1 each Once per day. Use as [...] long-term current use of insulin ([facility]) INJECT 35 UNITS SUBCUTANEOUSLY ONCE EVERY DAY, may increase by 2 units every 72 hours for fasting blood sugar above 130. MAX DAILY DOSE 45 UNITS PER DAY PATIENT CAN INJECT. 45 mL 3 025 Active insulin pen needle (BD Pen Needle Rowena 2nd Gen) 32G x 4 mm misc USE WITH INSULIN ONCE A DAY 100 each 11 025 Active Alcohol Swabs (Alcohol Prep) 70 % padsIndications: Type 2 diabetes mellitus with hyperglycemia ([facility]) Check blood sugar 4 times daily or [...] and Toradol for migraine cocktail 30 tablet Active ARIPiprazole (Abilify) 5 MG tablet Take 5 mg by mouth Once per day. 025 Active melatonin 3 MG tablet TAKE 1 TABLET BY MOUTH 2-3 HOURS BEFORE YOUR DESIRED BEDTIME 2024 Discontinued(I neffective) ibuprofen 600 MG tablet TAKE 1 TABLET BY MOUTH IN THE MORNING, AT NOON AND AT BEDTIME IF NEEDED FOR MILD PAIN 90 tablet 024 2024 Discontinued(M ed list cleanup (will not trigger notification to Pharmacy)) ketorolac (Toradol) 10 MG tabletIndication s:Chronic migraine without aura with status migrainosus, not intractable TAKE 1 TABLET BY MOUTH EVERY 8 HOURS IF NEEDED FOR MODERATE PAIN FOR UP TO 5 DAYS. TAKE ONE WITH BENADRYL AND ZOFRAN FOR MIGRAINE PROPHYLAXIS 15 tablet 025 2024 Discontinued(T herapy completed) Active Problems Problem Noted Date Diagnosed Date [...] for vaginal candidiasis and follow-up vaginal swab. Asthma 01/27/2024 Assessment & Plan (01/27/2024 3:31 PM EST): Well-controlled. Chronic left shoulder pain 01/27/2024 Assessment & Plan (05/04/2024 4:55 AM EDT): - following with [facility] - Dx impingement syndrome - completed [...] signs and symptoms to seek emergent care. Depression 09/23/2023 Assessment & Plan (02/07/2025 5:52 AM EST): >>ASSESSMENT AND PLAN FOR MAJOR DEPRESSION WRITTEN ON 09/29/2023 2:33 PM BY CACHORRO CHRISTINE During IB Consult Sonali presenting with depressed mood, loss [...] both her parents. She had services with [facility] for psychiatry and individual therapy, but lost [...] information. Pt prefers to utilized [facility] with [facility] for same-day appointments. Pt will request psychopharmacology and individual therapy. clinician will follow-up to provide additional support. Assessment & Plan (02/07/2025 5:52 AM EST): - MDD vs. bipolar - severe exacerbation of Depression w/ SI in October 2021. - completed Partial Hospitalization Program at [facility] 11/09/21 - 11/23/21 - current medication: none -Previous medication treatment Hx: venlafaxine was self-discontinued; trazodone was prescribed by psychiatrist while she was attending [facility], but pt self-discontinued due to ineffectivenss; sertraline 50 mg daily, patient self-discontinued. - previously seeing [facility] clinician and waiting for psychiatrist, patient has not been engaged in behavioral health therapy currently. - contacted by integrated behavioral health service and was referred to off-site service - patient has developed healthy coping skills Sen's esophagus 09/09/2023 Assessment & Plan (11/30/2023 1:26 PM EDT): -Following with [facility], last seen on -06/30/23 EGD Sen esophagus with mild chronic active inflammation, stomach mild chronic inactive inflammation, normal duodenum. -Repeat EGD in 2 years -Continue pantoprazole Assessment & Plan (09/09/2023 6:00 AM EDT): -Following with [facility], last seen on -06/30/23 EGD Sen [...] for 6 months - check STI periodically Elevated blood pressure read ing without diagnosis [...] Hx severe hypertrigylceridemia, in 600-700s. Lipid profile: 8/2/24 Work on lifestyle modifications Consider starting statin [...] a bariatric surgery and went to [facility]. She restarted going to [facility]. - She had worked with our diabetes education nurse, Ene Arias from Nov to Dec 2021. - Graduated from [facility]. - Eye exam: 01/28/24. [facility]. Nonregenerative diabetic retinopathy, bilateral, mild. [...] a bariatric surgery and went to [facility]. She restarted going to [facility]. - She had worked with our diabetes education nurse, Ene Arias from Nov to Dec 2021. - Currently showing good attendance to [facility]; appreciated her effort - Eye exam: 01/24/23 [facility]. No diabetic retinopathy - Comprehensive [...] a bariatric surgery and went to [facility] - She had worked with our diabetes education nurse, Ene Arias from Nov to Dec 2021. - Currently showing good attendance to [facility]; appreciated her effort - Eye exam: 01/24/23 [facility]. No diabetic retinopathy - Comprehensive [...] a bariatric surgery and went to [facility] - She had worked with our diabetes education nurse, Ene Arias from Nov to Dec 2021. - Currently showing good attendance to [facility]; appreciated her effort - Eye exam: 01/24/23 [facility]. No diabetic retinopathy - Comprehensive [...] a bariatric surgery and went to [facility] - She had worked with our diabetes education nurse, Ene Arias from Nov to Dec 2021. - Currently showing good attendance to [facility]; appreciated her effort - Eye exam: 01/24/23 [facility]. No diabetic retinopathy - Comprehensive [...] a bariatric surgery and went to [facility] - She had worked with our diabetes education nurse, Ene Arias from Nov to Dec 2021. - Currently showing good attendance to [facility]; appreciated her effort - Eye exam: 01/24/23 [facility]. No diabetic retinopathy - Comprehensive [...] a bariatric surgery and went to [facility] - She had worked with our diabetes education nurse, Ene Arias from Nov to Dec 2021. - Refer to [facility] - Eye exam: 01/24/23 [facility]. No diabetic retinopathy - Comprehensive [...] a bariatric surgery and went to [facility] - She had worked with our diabetes education nurse, Ene Arias from Nov to Dec 2021. - Eye exam: 01/21/22 [facility]. No diabetic retinopathy - Comprehensive [...] a bariatric surgery and went to [facility] - She had worked with our diabetes education nurse, Ene Arias from Nov to Dec 2021. - Eye exam: 01/21/22 [facility]. No diabetic retinopathy - Comprehensive [...] a bariatric surgery and went to [facility] - She had worked with our diabetes education nurse, Ene Arias from Nov to Dec 2021. - Eye exam: 01/21/22 [facility]. No diabetic retinopathy - Comprehensive [...] a bariatric surgery and went to [facility] - She had worked with our diabetes education nurse, Ene Arias from Nov to Dec 2021. - Eye exam: 01/21/22 [facility]. No diabetic retinopathy - Comprehensive [...] a bariatric surgery and went to [facility] - She had worked with our diabetes education nurse, Ene Arias from Nov to Dec 2021. - Eye exam: 01/21/22 [facility]. No diabetic retinopathy - Comprehensive [...] a bariatric surgery and went to [facility] - She had worked with our diabetes education nurse, Ene Arias from Nov to Dec 2021. - Eye exam: 01/21/22 [facility]. No diabetic retinopathy - Comprehensive [...] 1:28 PM EDT): - continue fluticasone nasal Anxiety disorder with panic attacks 01/06/2012 Assessment & Plan (02/07/2025 5:52 AM EST): - MDD vs. bipolar - severe exacerbation of Depression w/ SI in October 2021. - completed Partial Hospitalization Program at [facility] 11/09/21 - 11/23/21 - current medication: none -Previous medication treatment Hx: venlafaxine was self-discontinued; trazodone was prescribed by psychiatrist while she was attending [facility], but pt self-discontinued due to ineffectivenss; sertraline 50 mg daily, patient self-discontinued. - previously seeing [facility] clinician and waiting for psychiatrist, patient has not been engaged in behavioral health therapy currently. - contacted by [facility] service and was referred to off-site service - patient has developed healthy coping skills Assessment & Plan (01/27/2024 3:24 PM EST): - MDD vs. bipolar - severe exacerbation of Depression w/ SI in October 2021. - completed Partial Hospitalization Program at [facility] 11/09/21 - 11/23/21 - current medication: none -Previous medication treatment Hx: venlafaxine was self-discontinued; trazodone was prescribed by psychiatrist while she was attending [facility], but pt self-discontinued due to ineffectivenss; sertraline 50 mg daily, patient self-discontinued. - previously seeing [facility] clinician and waiting for psychiatrist, patient has not been engaged in behavioral health therapy currently. - contacted by [facility] health service and was referred to off-site service - patient has developed healthy coping skills Assessment & Plan (11/30/2023 1:22 PM EDT): - MDD vs. bipolar - severe exacerbation of Depression w/ SI in October 2021. - completed Partial Hospitalization Program at [facility] 11/09/21 - 11/23/21 - current medication: none -Previous medication treatment Hx: venlafaxine was self-discontinued; trazodone was prescribed by psychiatrist while she was attending [facility], but pt self-discontinued due to ineffectivenss; sertraline 50 mg daily, patient self-discontinued. - previously seeing [facility] clinician and waiting for psychiatrist, patient has not been engaged in behavioral health therapy currently. - contacted by [facility] behavioral health service and was referred to off-site service - patient has developed healthy coping skills Assessment & Plan (03/07/2023 5:55 AM EST): - MDD vs. bipolar - severe exacerbation of Depression w/ SI in October 2021. - completed Partial Hospitalization Program at [facility] 11/09/21 - 11/23/21 - current medication: none -Previous medication treatment Hx: venlafaxine was self-discontinued; trazodone was prescribed by psychiatrist while she was attending [facility], but pt self-discontinued due to ineffectivenss; sertraline 50 mg daily, patient self-discontinued. - previously seeing [facility] clinician and waiting for psychiatrist, patient has not been engaged in behavioral health therapy currently. - will consider referring back Assessment & Plan (11/12/2022 4:17 PM EDT): - severe exacerbation of Depression w/ SI in October 2021. - completed Partial Hospitalization Program at [facility] 11/09/21 - 11/23/21 - Medication: Sertraline 50 mg daily -Previous medication treatment Hx: venlafaxine was self-discontinued; trazodone was prescribed by psychiatrist while she was attending [facility], but pt self-discontinued due to ineffectivenss - still on waiting list for outpatient appt with psychiatrist and therapist. - Able to contract her safety today - Continue BHS with [facility] Assessment & Plan (08/30/2022 12:43 PM EDT): - severe exacerbation of Depression w/ SI in October 2021. - completed Partial Hospitalization Program at [facility] 11/09/21 - 11/23/21 - Medication: Sertraline 50 mg daily -Previous medication treatment Hx: venlafaxine was self-discontinued; trazodone was prescribed by psychiatrist while she was attending [facility], but pt self-discontinued due to ineffectivenss - still on waiting list for outpatient appt with psychiatrist and therapist. - Able to contract her safety today - Continue BHS with [facility] Assessment & Plan (02/07/2025 5:54 AM EST): >>ASSESSMENT AND PLAN FOR ANXIETY DISORDER WITH PANIC ATTACKS WRITTEN ON 06/24/2022 11:25 AM BY CINTHYA STANLEY MD - severe exacerbation of Depression w/ SI in October 2021. - completed Partial Hospitalization Program at [facility] 11/09/21 - 11/23/21 - Medication treatment Hx --venlafaxine was self-discontinued --trazodone was prescribed by psychiatrist while she was attending [facility], but pt self-discontinued due to ineffectivenss - still on waiting list for outpatient appt with psychiatrist and therapist. - Able to contract her safety today - Continue BHS with [facility] >>ASSESSMENT AND PLAN FOR PANIC ATTACKS WRITTEN ON 06/19/2022 12:40 PM BY SERENE BUTLER Has increased panic attacks and anxiety -Rx Hydroxyzine Assessment & Plan (05/21/2022 12:36 PM EDT): - severe exacerbation of Depression w/ SI in October 2021. - completed Partial Hospitalization Program at [facility] 11/09/21 - 11/23/21 - Medication treatment Hx --venlafaxine was self-discontinued --trazodone was prescribed by psychiatrist while she was attending [facility], but pt self-discontinued due to ineffectivenss - still on waiting list for outpatient appt with psychiatrist and therapist. - Able to contract her safety today - Continue BHS with [facility] Assessment & Plan (04/04/2022 7:17 PM EST): - severe exacerbation of Depression w/ SI in October 2021. - completed Partial Hospitalization Program at [facility] 11/09/21 - 11/23/21 - Medication treatment Hx --venlafaxine was self-discontinued --trazodone was prescribed by psychiatrist while she was attending [facility], but pt self-discontinued due to ineffectivenss - still on waiting list for outpatient appt with psychiatrist and therapist. - Able to contract her safety today - Continue BHS with [facility] Assessment & Plan (02/22/2022 4:28 PM EST): - severe exacerbation of Depression w/ SI in October 2021. - completed Partial Hospitalization Program at [facility] 11/09/21 - 11/23/21 - Medication treatment Hx --venlafaxine was self-discontinued --trazodone was prescribed by psychiatrist while she was attending [facility], but pt self-discontinued due to [...] - previously participated weight management program at [facility], recently started seeing them again. - goal of norbertoht being 171 lbs to get surgery done. - continue working on lifestyle modifications - associated comorbidity: STELLA, diabetes mellitus type 2 - continue GLP1RA - patient is restricting food intake and discussed about its harmful effect. She is on GLP1RA and is having side effects. Will try to consult with both assistant director and surgical weight loss provider. Surgical weight loss is not indicated and patient still may need to take medications. Assessment & Plan (01/27/2024 3:27 PM EST): - previously participated weight management program at [facility], recently started seeing them again. - goal of wieght being 171 lbs to get surgery done. - continue working on lifestyle modifications - associated comorbidity: STELLA, DM2 Assessment & Plan (11/26/2023 2:16 PM EDT): - previously participated weight management program at [facility] working on lifestyle modifications - associated comorbidity: STELLA, DM2 Assessment & Plan (11/18/2022 7:07 AM EDT): - previously participated weight management program at [facility] - [facility] working on lifestyle modifications - associated [...] Encounters Date Type Department Care Team Description 02/07/2025 2:00 PM EST Office Visit [facility] [address] [place] [address] Cinthya Stanley MD Other mixed anxiety disorders (Primary Dx); Severe [...] Routine screening for STI (sexually transmitted infection) 02/07/2025 Patient Outreach [address] [address] Cinthya Stanley MD Care Coordination ([facility] outreach for SDOH housing search-referral completed ) 02/07/2025 Travel 02/06/2025 Travel 02/02/[address] [address] Cinthya Stanley MD 01/25/2025 Patient Outreach [address] [address] Cinthya Stanley MD Pre-visit Planning (Pre-visit planning - LVM ) 01/14/[address] [address] Cinthya Stanley MD Referral 01/11/2025 Orders Only GENERIC EXTERNAL DATA DEPARTMENT Provider, Generic External Data 01/05/2025 8:00 AM EST Office Visit [facility] ADULT DENTAL [address] [place] [address] Thompson [facility] 01/03/2025 Telephone [facility] [address] [place] [phone] Sharona Leija [place] 12/28/[address] [address] Cinthya Stanley MD Appointment Request 12/27/2024 Orders Only GENERIC EXTERNAL DATA DEPARTMENT Provider, Generic External Data 11/23/2024 Refill [facility] [address] [place] [phone] Lexis Spann MD 11/19/2024 Orders Only GENERIC EXTERNAL DATA DEPARTMENT Provider, Generic External Data 11/17/[address] [address] Rianna Solis, RN NTTS from Last 3 [...] 16 02/07/2025 2:52 PM EST Oxygen Saturation 99% 10/09/2024 9:23 AM EDT Inhaled Oxygen Concentration - - Weight 84.9 kg (187 lb 3.2 oz) 02/07/2025 2:52 P M EST Height 157.5 cm (5' 2 ) 07/21/2024 2:31 PM EDT Body Mass Index 34.24 07/21/2024 2:31 PM EDT Plan of Treatment Upcoming Encounters Date Type Department Care Team (Late st Contact Info) Description 02/15/2025 9:00 AM EST Office Visit [facility] ADULT DENTAL [address] [facility], [place] [phone] Rhona Mcleodricio [address] [place] [address] 02/22/2025 9:00 AM EST Office Visit [facility] ADULT DENTAL [address] [place] [address] Rhona Mcleodricio [address] [place], [place] [phone] 02/24/2025 1:45 PM EST Procedure Visit [facility] [address], [place] [phone] Abigail Darling, CNM [address] [place] [address] Health Maintenance Due Date Last Done Comments Family Planning (PISQ) 02/26/2007 HPV Vaccines (1 - 3-dose series) 02/26/2007 Dental Oral Exam 02/08/2023 08/08/2022 Eye Exam 01/25/2024 01/24/2023 Cervical Cancer Screening 07/24/2024 HPV/Cotest 07/24/2024 Pap Smear 07/24/2024 07/24/2021 COVID-19 Vaccine ( season) 2024 02/22/2021, 07/01/2020, 06/03/2020 Influenza Vaccine (#1) 2024 8, 04/10/2017, 10/24/2014, Additional history exists Lipid Panel 11/25/2024 11/26/2023, 08/0 03/2023, 06/11/2023, Additional history exists Dental Prophylaxis 04/04/2025 10/01/2024, 1 04/01/2023, 06/04/2023, Additional history exists Diabetes: Hemoglobin A1C 08/08/202502/07/ 025, 05/03/2024, 01/26/2024, Additional history exists Dental X-Ray: Full Mouth 08/09/2025 08/08/2022, 05/11 Diabetes: Urine Protein Screening 08/23/2025 08/23/2024, 11/26/2023, 09/12/2023, Additional history exists DTaP/Tdap/Td Vaccines (8 - Td or Tdap) 08/28/2025 08/29/2015, 01/06/2012, 09/17/2005, Additional history exists Dental X-Ray: Bitewings 10/02/2025 10/02/19, 06/04/2023, 08/08/2022 Alcohol/Substance Use Screening 02/07/2026 02/07/2025 Depression Screening 02/07/2026 02/07/2025, 02/08/20 Diabetes: Foot Exam 02/07/2026 02/07/2025, 02/07/2025, 02/07/2025, Additional history exists Disability Screening 02/07/2026 02/07/2025 SDOH Screening 02/07/2026 02/07/2025 Tobacco Screening 02/07/2026 02/07/2025 Zoster Vaccines (1 of 2) 02/26/2042 RSV [...] Result Component 6.5( 1:48 PM EST) No Maytio Acuña PharmD Help patients manage their type [...] has chronic kidney disease No David Ceballos Procedures Procedure Name Priority Date/Time Associated Diagnosis Comments POCT GLYCOSYLATED HEMOGLOBIN (HGB A1C) Routine 02/07/2025 1:48 PM EST Type 2 diabetes mellitus with hypoglycemia without coma, with long-term current use of insulin (HCC) POCT GLUCOSE (CPT-04073) Routine 02/07/2025 1:48 PM EST Type 2 diabetes mellitus with hypoglycemia without coma, with long-term current use of insulin (HCC) HELICOBACTER PYLORI, UREA BREATH TEST Routine 01/11/2025 11:05 AM EST CASE PRESENTATION, DETAILED AND EXTENSIVE TREATMENT PLANNING Routine 01/05/2025 8:00 AM EST 3 MO RESIN-BASED COMPOSITE - 2 SURF, POSTERIOR Routine 01/05/2025 8:00 AM EST GLUCOSE, WHOLE BLOOD Routine 12/27/2024 3:10 PM EST GLUCOSE, WHOLE BLOOD Routine 11/19/2024 2:08 PM EDT PROPHYLAXIS - ADULT Routine 10/01/2024 8 :00 AM EDT BITEWINGS - 4 RADIOGRAPHIC IMAGES Routine 10/01/2024 8:00 AM EDT HEPATITIS C AB W/REFL TO HCV RNA, [...] Relevant to Health Maintenance Results * (ABNORMAL) POCT glycosylated hemoglobin (Hgb A1c) (02/07/2025 1:48 PM EST) Hemoglobin A1C 6.5(A) 4.0 - 5.7 % QC Media Lot # [id number] Lot# Expiration Date [id number] Blood Capillary blood specimen / Unknown 02/07/2025 1:48 PM EST Cinthya Stanley MD POINT OF CARE TEST ENTER/EDIT OR DERABLES Final Result * POCT glucose manually resulted (CPT-21562) (02/07/2025 1:48 PM EST) Glucose Blood, POC 184 60 - 200 mg/dL QC Media Lot # [id number] Lot# Expiration Date Blood Capillary blood specimen / Unknown 02/07/2025 1:48 PM EST Cinthya Stanley MD POINT OF CARE TEST ENTER/EDIT OR DERABLES Final Result * Helicobacter pylori, Urea Breath Test (01/11/2025 11:05 AM EST) H. pylori Breath Test Negative Negative [facility] Comment:Antimicrobials, prot on pump inhibitors and bismuthpreparations are known to suppress H. pylori. Ingestingthese medications within two weeks prior to performing thebreath test may produce negative test results. A positiveresult is still clinically valid. 01/11/2025 11:0 5 AM EST 01/13/2025 8:22 AM EST us Generic External Data Provider LAB BODY FLUIDS A ND STOOLS ORDERABLES Final Result [facility] [address] [place] [address] [phone] * Glucose, Whole Blood (12/27/2024 3:10 PM EST) Only the most recent of2 resultswithin the time period is included. Glucose, Whole Blood 111 60 - 115 mg/dL [facility] Comment:METER #: [id number] 0Testing performed in the Endocrinology Department [address] , [address], [facility]. 12/27/2024 3:10 PM EST 12/27/2024 3:13 PM EST us Generic External Data Provider LAB BLOOD ORDERAB LES Final Result Performing Organization Address [facility] Co de Phone Number [facility] [address] [place] [phone] * (ABNORMAL) Lipid Panel with Reflex to Direct LDL (11/26/2023 11:30 AM EDT) Triglycerides 145 <150 mg/dL [facility] Comment:Desirable Triglyceri de: less than 150 mg/dLBorderline High Triglyceride 150-199 mg/dLHigh Triglyceride: 200-499 mg/dLVery High Triglyceride: greater than or equal to 5OO mg/dL Cholesterol 152 <200 mg/dL [facility] Comment:Desirable Cholestero l: less than 200 mg/dLBorderline High Cholesterol: 200-239 mg/dLHigh Cholesterol: greater than 239 mg/dL LDL Cholesterol Calculated 91 <100 mg/dL [facility] Comment:Desirable LDL: less than 100 mg/dLNear Optimal/Above Optimal LDL: 110- 129 mg/dLBorderline High LDL: 130-159 mg/dLHigh LDL: 160-189 mg/dLVery High LDL: greater than or equal to 190 mg/dL HDL Cholesterol 32(L) >40 mg/dL [facility] Comment:Desirable HDL: great er than 40 mg/dL Note: This HDL assay may give artificially low results in patients with liver disease. Blood 11/26/2023 11:3 0 AM EDT 11/26/2023 1:20 PM EDT us Cinthya Stanley MD LAB BLOOD ORDERABLES Final Resul t Performing Organization Address [facility]/ZIP Co de Phone Number [facility] [address] [place] [address] [phone] * Hepatitis C Antibody with Reflex to HCV, RNA, Quantitative, Real-Time PCR (11/26/2023 11:30 AM EDT) Hepatitis C Antibody Nonreactive Nonreactive [facility] Comment:Antibodies to HCV no t detected; does not exclude early acuteHCV infection. Blood Venous blood specimen / Unknown 11/26/2023 11:30 AM EDT 11/26/2023 1:20 PM EDT Cinthya Stanley MD LAB BLOOD ORDERABLES Final Resul t Performing Organization Address [facility] Co de Phone Number [facility] [address] [place] [address] [phone] * HIV-1/2 Antigen and Antibodies, Fourth Generation, with Reflexes (11/26/2023 11:30 AM EDT) HIV AB/AG Nonreactive Nonreactive [facility] Comment:HIV-1 p24 Ag and/or HIV-1/HIV-2 Ab not detected.A test result that is nonreactive does not exclude thepossibility of exposure to or infection with HIV-1 and/orHIV-2. Nonreactive results in this assay for individualswith prior exposure to HIV-1 and/or HIV-2 may be due toantigen and antibody levels that are below the limit ofdetection of this assay.The [employer] HIV Ag/Ab Combo assay result andsupplemental assay results should be interpreted inconjunction with the patient's clinical presentation,history and other laboratory results. If the results areinconsistent with clinical evidence, additional testing issuggested to confirm the result. Blood Venous blood specimen / Unknown 11/26/2023 11:30 AM EDT 11/26/2023 1:20 PM EDT us Cinthya Stanley MD LAB BLOOD ORDERABLES Final Resul t Performing Organization Address [facility]/ZIP Co de Phone Number [facility] [address] [place] [address] [phone] * Albumin, Random Urine W/Creatinine (11/26/2023 12:00 AM EDT) Creatinine, Urine 238.24 mg/dL [facility] Microalbumin Urine 23.0 mg/L [facility] Microalbum Creatinine Ratio Ur 9.6 <30 ug/mg cr [facility] Comment:Albumin/Creatinine R atio Reference Ranges: Normal: < 30 ug/mg creatinine Microalbuminuria: 30 - 300 ug/mg creatinineClinical Albuminuria: > 300 ug/mg creatinine Urine 11/26/2023 11/26/2023 us Cinthya Stanley MD LAB URINE ORDERABLES Final Resul t [facility] [address] [place] [address] [phone] * Hm Diabetes Eye Exam (01/24/2023) Eye Exam Normal Normal Comment:foster eye 01/24/2023 Historical Provider HEALTH MAINTENANCE Final [...] has been evaluated with computer assisted technology. [facility] Oven Drier Tender : SEE COMMENT [facility] Comment: MXD, CT (ASCP) CT screening location: [address] [address] Interpretation/R esult: Negative for intraepithelial lesion or malignancy. [facility] LMP: NONE [facility] Prev. BX: NONE [facility] Prev. PAP: NONE [facility] SOURCE: None given [facility] Statement Of Adequacy: SEE COMMENT [facility] Comment: Satisfactory for evaluation. Endocervical/transformation zone component present. Age and/or menstrual status not provided 07/24/2021 4:01 PM EDT us Cinthya Stanley MD LAB PATHOLOGY ORDERABLES Final R esult [facility] [address] from Last 3 Months or Most [...] 02/02/2025 Patient has chronic kidney disease 02/07/2025 Insurance [facility] MEDICAID STAND ADULT Care Teams Ore Miner Blasting Relationship Specialty Start Date End Date Cinthya Stanley MD [address] [place] [address] PCP - General Family Medicine 10/23/11
--- OUTSIDE RECORDS SUMMARY | 2025-02-08 10:40 | XMS_ITS | Encounter Summary ---
Author Organization [employer] Address [address] [place] [address] [address] [address] Care Team Providers Care Forklift Supervisor Name Role Phone Cinthya Ray MD Primary Care Provider [phone] Mayito Acuña PharmD Unavailable [phone] Reason for Referral * Consultation (Urgent) - Closed Specialty Diagnoses / Procedures Referred By Contac t Referred To Contact Endocrinology Diagnoses Type 2 diabetes mellitus with hyperglycemia, with long-term current use of insulin (HCC) Cinthya Ray MD [address] [place] [address] Phone: tel: fax: [facility] Endocrinology [address] [place] [address] Phone: tel: fax: Referral ID Status Reason Start Date Expiration Date V isits Requested Visits Authorized [id number] Closed Specialty Services Required 04/19/2024 04/19/2025 12 12 Encounter Details Date Type Department Care Team (Late st Contact Info) Description 04/19/2024 Orders Only [facility] [address] [place] [address] Cinthya Ray MD [address] [place] [address] Type 2 diabetes mellitus with hyperglycemia, with [...] Upcoming Encounters Date Type Department Care Team ([facility] st Contact Info) Description 02/15/2025 9:00 AM EST Office Visit [facility] ADULT DENTAL [address] [place] [address] Thompson [facility] [address] [place] [address] 02/22/2025 9:00 AM EST Office Visit [facility] ADULT DENTAL [address] [place], [place] [phone] [facility] [address] [place] [address] 02/24/2025 1:45 PM EST Procedure Visit [facility] MED[facility] [address] [place], [place] [phone] Abigail Darling, COCO [address] [place] [address] Pending Results Name Type Priority Associated Diagnoses Date /Time Referral to Endocrinology Outpatient Referral Urgent Type 2 diabetes mellitus with hyperglycemia, with long-term current use of insulin ([facility]) 04/30/2024 Scheduled Referrals Name Type Priority Associated Diagnoses Order Schedule Referral to Endocrinology Outpatient Referral Urgent Type 2 diabetes mellitus with hyperglycemia, with long-term current use of insulin ([facility]) Expected: 04/19/2024 (Approximate), Expires: 04/19/2025 documented [...] hyperglycemia, with long-term current use of insulin ([facility])- Primary documented in this encounter Additional Health Concerns Assessment Noted Time PHQ-9 Depression Total Score: 11 024 9:48 AM EDT documented as of this encounter Care Teams Forklift Supervisor Relationship Specialty Start Date End Date Cinthya Ray MD [address] [place] [address] PCP - General Family Medicine 10/23/11 Mayito Acuña PharmD [address] [place] [address] Pharmacist Internal Medicine 03/07/23 04/22/24 documented as of this encounter
--- OUTSIDE RECORDS SUMMARY | 2025-02-08 10:40 | XMS_ITS | Encounter Summary ---
Author Organization [employer] Address [address] [place] [address] 7 [place] [address] Care Team Providers Care Rivet Passer Name Role Phone Cinthya Ray MD Primary Care Provider [phone] Reason for Visit * Reason Comments Med Refill Encounter Details Date Type Department Care Team ([facility] st Contact Info) Description 04/26/2024 Refill [facility] [address] [place], [place] [phone] Cinthya Ray MD [address] [place] [address] Social History Tobacco Use Types Packs/Day Years [...] Description 02/15/2025 9:00 AM EST Office Visit [facility] ADULT DENTAL 505 [place] [address] ShaniRhonaThompson 505 [place] [address] 02/22/2025 9:00 AM EST Office Visit [facility] ADULT DENTAL [address] [place] [address] Shani Thompson [address] [place] [address] 02/24/2025 1:45 PM EST Procedure Visit [facility] [address] [place], [place] [phone] Abigail Darling CNM [address] [place], [place] [phone] documented as of this encounter Goals Goal Patient Goal Type Associated Problems Recent Progress Patient-Stated? Author Blood Pressure < 140/90 Blood Pressure 110/78(2024 2:52 PM EST) Mayito Rodriguez, PharmD Hemoglobin A1c < 7 Result Component 6.5( 5 1:48 PM EST) No Mayito Acuña PharmD documented as of this encounter Visit Diagnoses Not on filedocumented in this encounter Additional Health Concerns Assessment Noted Time PHQ-9 Depression Total Score: 11 024 9:48 AM EDT documented as of this encounter Care Teams Rivet Passer Relationship Specialty Start Date End Date Cinthya Ray MD [address] [place] [address] PCP - General Family Medicine 10/23/11 documented as of this encounter
--- OUTSIDE RECORDS SUMMARY | 2025-02-08 10:40 | XMS_ITS | Encounter Summary ---
Author Organization [employer] Address [address] [place] [address] 7[place], [place] [address] Care Team Providers Care Barley Steeper Name Role Phone Cinthya Ray MD Primary Care Provider [phone] Reason for Referral * Consultation (Routine) - Closed Specialty Diagnoses / Procedures Referred By Contac t Referred To Contact Cardiology Diagnoses Hypotension, unspecified hypotension type Cinthya Ray MD 230 [place] [address] Phone: tel: fax: [facility] Referral ID Status Reason Start Date Expiration Date V isits Requested Visits Authorized [id number] Closed Specialty Services Required 07/09/2024 07/09/2025 6 6 Encounter Details Date Type Department Care Team (Late st Contact Info) Description 07/09/2024 Orders Only [facility] MEDICINE 230 [place], [place] [phone] Cinthya Ray MD [address] [place], [place] [phone] Hypotension, unspecified hypotension type (Primary Dx) Social [...] Description 02/15/2025 9:00 AM EST Office Visit [facility] ADULT DENTAL [address] [place] [address] [facility] [address] [place] [address] 02/22/2025 9:00 AM EST Office Visit [facility] ADULT DENTAL [address] [place] [address] [facility] [address] [place] [address] 02/24/2025 1:45 PM EST Procedure Visit [facility] 230 [facility] [place] [phone] Abigail Darling CNM [address] [place], [place] [phone] Scheduled Referrals Name Type Priority Associated Diagnoses [...] documented as of this encounter Care Teams Barley Steeper Relationship Specialty Start Date End Date Cinthya Ray MD 230 [facility] [place] [address] PCP - General Family Medicine 10/23/11 documented as of this encounter
--- OUTSIDE RECORDS SUMMARY | 2025-02-08 10:40 | XMS_ITS | Encounter Summary ---
Author Organization [employer] Address [address] [facility] 7t [place] [address] Care Team Providers Care Cargo Checker Name Role Phone Cinthya Ray MD Primary Care Provider [phone] Mayito Acuña PharmD Unavailable [phone] Encounter Details Date Type Department Care Team (Late st Contact Info) Description 06/13/2022 Orders Only [facility] [address] [place] [address] Jerrica Girard FNP Social History Tobacco Use [...] [facility] AD[facility] 505 [place] [address] [facility] [address] [place] [address] 02/22/2025 9:00 AM EST Office Visit [facility] AD[facility] 505 [place] [address] [facility] [address] [place] [address] 02/24/2025 1:45 PM EST Procedure Visit [facility] [address] [place] [address] Abigail Darling CNM [address] [place] [address] documented as of this encounter Visit Diagnoses Not on filedocumented in this encounter Care Teams Cargo Checker Relationship Specialty Start Date End Date Cinthya Ray MD [address] [place] [address] PCP - General Family Medicine 10/23/11 Mayito Acuña, DyanD [address] [place] [address] Pharmacist Internal Medicine 03/07/23 04/22/24 documented as of this encounter
--- OUTSIDE RECORDS SUMMARY | 2025-02-08 10:40 | XMS_ITS | Encounter Summary ---
Author Organization [employer] Address [address] [facility] 7 [place] [address] Care Team Providers Care Child Care Centre Manager Name Role Phone Cinthya Ray MD Primary Care Provider [phone] Reason for Visit * Reason Comments Med Refill Encounter Details Date Type Department Care Team ([facility] st Contact Info) Description 11/23/2024 Refill [facility] [address] [place] [address] [phone] Lexis Spann MD 230 [place], [place] [phone] Social History Tobacco Use Types Packs/Day Years [...] Description 02/15/2025 9:00 AM EST Office Visit [facility] ADULT DENTAL 505 [place] [address] ShaniRhonaThompson 505 [place] [address] 02/22/2025 9:00 AM EST Office Visit [facility] ADULT DENTAL 505 [place] [address] Shani Thompson 505 [place] [address] 02/24/2025 1:45 PM EST Procedure Visit [facility] 230 [place], [place] [phone] Abigail Darling CNM [address] [place] [address] documented as of this encounter Goals Goal [...] as of this encounter Care Teams Child Care Centre Manager Relationship Specialty Start Date End Date Cinthya Ray MD [address] [place] [address] PCP - General Family Medicine 10/23/11 documented as of this encounter
--- OUTSIDE RECORDS SUMMARY | 2025-02-08 10:41 | XMS_ITS | Encounter Summary ---
Author Organization [employer] Address [address] [facility] 7 [place] [address] Care Team Providers Care Computed Tomography Scanner Operator Name Role Phone Cinthya Ray MD Primary Care Provider [phone] Mayito Acuña PharmD Unavailable [phone] Reason for Visit * Reason Onset Date Comments Med Refill 12/24/2023 Encounter Details Date Type Department Care Team (Late st Contact Info) Description 12/24/2023 Refill [facility] MED & PEDS [address] [place], [place] [phone] Cinthya Ray MD [address] [place], [place] [phone] Type 2 diabetes mellitus with hyperglycemia, without long-term current use of insulin ([facility]) Social History Tobacco Use Types [...] 02/15/2025 9:00 AM EST Office [facility] 505 [place] [address] [facility] Thompson [address] [place] [address] 02/22/2025 9:00 AM EST Office Visit [facility] 505 [place] [address] [facility] Thompson [address] [place] [address] 02/24/2025 1:45 PM EST Procedure Visit [facility] MEDICINE [address] [place] [address] Abigail Darling, COCO [address] [place], [place] [phone] documented as of this encounter Goals Goal [...] documented as of this encounter Care Teams Computed Tomography Scanner Operator Relationship Specialty Start Date End Date Cinthya Ray MD [address] [place] [address] PCP - General Family Medicine 10/23/11 Mayito Acuña PharmD [address] [place] [address] Pharmacist Internal Medicine 03/07/23 04/22/24 documented as of this encounter
--- OUTSIDE RECORDS SUMMARY | 2025-02-08 10:41 | XMS_ITS | Encounter Summary ---
Author Organization [employer] Address [address] [facility] 7 [place] [address] Care Team Providers Care Getter Operator Name Role Phone Cinthya Ray MD Primary Care Provider [phone] Mayito Acuña PharmD Unavailable [phone] Reason for Visit * Reason Onset Date Comments Med Refill 11/02/2023 Encounter Details Date Type Department Care Team (Late st Contact Info) Description 11/02/2023 Refill [facility] CH[facility] MED & PEDS [address] [place], [place] [phone] Cinthya Ray MD [address] [place], [place] [phone] Type 2 diabetes mellitus with hyperglycemia, without long-term current use of insulin ([facility]) Social History Tobacco Use [...] [facility] ADULT D[facility] 505 [place] [address] [facility] [address] [place] [address] 02/22/2025 9:00 AM EST Office Visit [facility] AD[facility] 505 [place] [address] [facility] 505 [place] [address] 02/24/2025 1:45 PM EST Procedure Visit [facility] MEDICINE 230 [place], [place] [phone] Abigail Darling CNM 230 [place], [place] [phone] documented as of this encounter Goals Goal Patient Goal Type Associated Problems Recent Progress Patient-Stated? Author Blood Pressure < 140/90 Blood Pressure 110/78(2024 2:52 PM EST) No Mayito AcuñaCitlali Hemoglobin A1c < 7 Result Component 6.5( 5 1:48 PM EST) No Mayito Acuña PharmD documented as of this encounter Visit Diagnoses Diagnosis Type 2 diabetes mellitus with hyperglycemia, without long-term current use of insulin (HCC) documented in this encounter Additional Health Concerns Assessment Noted Time PHQ-9 Depression Total Score: 11 024 9:48 AM EDT documented as of this encounter Care Teams Getter Operator Relationship Specialty Start Date End Date Cinthya Ray MD [address] [place] [address] PCP - General Family Medicine 10/23/11 Mayito Acuña PharmD [address] [place] [address] Pharmacist Internal Medicine 03/07/23 04/22/24 documented as of this encounter
--- OUTSIDE RECORDS SUMMARY | 2025-02-08 10:41 | XMS_ITS | Encounter Summary ---
Author Organization [employer] Address [address] [facility] 7 [place] [address] Care Team Providers Care Mover Helper Name Role Phone Cinthya Ray MD Primary Care Provider [phone] Mayito Acuña PharmD Unavailable Encounter Details Date Type Department Care Team (Late st Contact Info) Description 04/07/2024 Orders Only [facility] MEDICINE 230 [place], [place] [phone] Lexis Spann MD [address] [place] [address] Social History Tobacco Use Types Packs/Day Years [...] the past 12 months, has t he [employer], gas, oil or water company threatened to [...] AM EST Office Visit [facility] ADULT DENTAL 505 [place] [address] Shani Thompson 505 [place] [address] 02/22/2025 9:00 AM EST Office Visit [facility] ADULT DENTAL [address] [place] [address] [facility] [address] [place] [address] 02/24/2025 1:45 PM EST Procedure Visit [facility] MEDICINE [address] [place], [place] [phone] Abigail Darling CNM [address] [place] [address] documented as of this encounter Goals Goal Patient Goal Type Associated Problems Recent Progress Patient-Stated? Author Blood Pressure < 140/90 Blood Pressure 110/78(12/29/ 2025 2:52 PM EST) No Acuña, Mayito, PharmD Hemoglobin A1c < 7 Result Component 6.5( 5 1:48 PM EST) No Mayito Acuña PharmD documented as of this encounter Visit Diagnoses Not on filedocumented in this encounter Additional Health Concerns Assessment Noted Time PHQ-9 Depression Total Score: 11 024 9:48 AM EDT documented as of this encounter Care Teams Mover Helper Relationship Specialty Start Date End Date Cinthya Ray MD [address] [place] [address] PCP - General Family Medicine 10/23/11 Mayito Acuña PharmD [address] [place] [address] Pharmacist Internal Medicine 03/07/23 04/22/24 documented as of this encounter
--- OUTSIDE RECORDS SUMMARY | 2025-02-08 10:41 | XMS_ITS | Encounter Summary ---
Author Organization [employer] Address [address] [place] [address] 7 [place] [address] Care Team Providers Care Public Space Attendant Name Role Phone Cinthya Ray MD Primary Care Provider [phone] Mayito Acuña PharmD Unavailable [phone] Reason for Visit * Reason Onset Date Comments Med Refill 09/29/2023 Encounter Details Date Type Department Care Team (Late st Contact Info) Description 09/29/2023 Refill [facility] 230 [place], [place] [phone] Cinthya Ray MD 230 [place], [place] [phone] Type 2 diabetes mellitus with hyperglycemia, without long-term current use of insulin ([facility]) Social History Tobacco [...] [facility] ADULT D[facility] [address] [place] [address] [facility] 505 [place] [address] 02/22/2025 9:00 AM EST Office Visit [facility] ADULT [facility] [address] [place] [address] [facility] [address] [place] [address] 02/24/2025 1:45 PM EST Procedure Visit [facility] MED[facility] 230 [place], [place] [phone] Abigail Darling CNM [address] [place], [place] [phone] documented as of this encounter Goals Goal Patient Goal Type Associated Problems Recent Progress Patient-Stated? Author Blood Pressure < 140/90 Blood Pressure 110/78(2024 2:52 PM EST) No Mayito Acuña, Citlali Hemoglobin A1c < 7 Result Component 6.5( 5 1:48 PM EST) No Mayito Acuña, Citlali documented as of this encounter Visit Diagnoses Diagnosis Type 2 diabetes mellitus with hyperglycemia, without long-term current use of insulin (HCC) documented in this encounter Additional Health Concerns Assessment Noted Time PHQ-9 Depression Total Score: 11 024 9:48 AM EDT documented as of this encounter Care Teams Public Space Attendant Relationship Specialty Start Date End Date Cinthya Ray MD [address] [place] [address] PCP - General Family Medicine 10/23/11 Mayito Acuña, Citlali [address] [place] [address] Pharmacist Internal Medicine 03/07/23 04/22/24 documented as of this encounter
--- OUTSIDE RECORDS SUMMARY | 2025-02-08 10:41 | XMS_ITS | Encounter Summary ---
Author Organization [employer] Address [address] [place] [address] 7 [place] [address] Care Team Providers Care Tip Mender Name Role Phone Cinthya Ray MD Primary Care Provider [phone] Mayito Acuña PharmD Unavailable Reason for Visit * Reason Onset Date Comments Med Refill 11/02/2023 Encounter Details Date Type Department Care Team (Late st Contact Info) Description 11/02/2023 Refill [facility] MED[facility] [address] [place], [place] [phone] Cinthya Ray MD [address] [place], [place] [phone] Social History Tobacco Use Types Packs/Day Years [...] but unableto make. Pt will come to [facility] today open till 8pm. Pt [...] Gill Sent: 11/10/2023 5:32 PM EDT To: [facility] Front Office Subject: Appointment Request Appointment Request From: Sonali Rosa With Provider: Cinthya Ray MD [[facility]] Preferred Date Range: 11/11/2023 - 11/13/2023 [...] 9:00 AM EST Office Visit [facility] ADULT DENTAL [address] [place] [address] [facility], [place] [address] [place] [address] 02/22/2025 9:00 AM EST Office Visit [facility] ADULT DENTAL [address] [place] [address] Shani, Thompson [address] [place] [address] 02/24/2025 1:45 PM EST Procedure Visit [facility] [address] [place] [address] Abigail Darling CNM [address] [place] [address] documented as of this encounter Goals Goal Patient Goal Type Associated Problems Recent Progress Patient-Stated? Author Blood Pressure < 140/90 Blood Pressure 110/78(2024 2:52 PM EST) No Mayito Acuña, PharmD Hemoglobin A1c < 7 Result Component 6.5( 1:48 PM EST) No Mayito Acuña, PharmD documented as of this encounter Visit Diagnoses Not on filedocumented in this encounter Additional Health Concerns Assessment Noted Time PHQ-9 Depression Total Score: 11 024 9:48 AM EDT documented as of this encounter Care Teams Tip Mender Relationship Specialty Start Date End Date Cinthya Ray MD [address] [place] [address] PCP - General Family Medicine 10/23/11 Mayito Acuña, DyanD [address] [place] [address] Pharmacist Internal Medicine 03/07/23 04/22/24 documented as of this encounter
--- OUTSIDE RECORDS SUMMARY | 2025-02-08 10:41 | XMS_ITS | Clinical Summary ---
Author Organization [facility] Address [address] [place] [address] Phone Care Team Providers Care Spray Pilot Name Role Phone Unavailable Primary Care Provider Unavailabl e Allergies No known active allergies Medical History Medical History Date Comments Diabetes mellitus ([facility] V24, [facility] V28) Social History Tobacco Use Types Packs/Day Years Used Date Smoking Tobacco: Never Assessed Comments Unknown Sex and Gender Information Value Date Recorded Sex Assigned at Female 02/29/2024 2:10 AM EST Legal Sex Female 2:17 AM EST Gender Identity Not on file Sexual Orientation Not on file Last Filed Vital Signs Vital Sign Reading [...]
--- OUTSIDE RECORDS SUMMARY | 2025-02-08 10:41 | XMS_ITS | Encounter Summary ---
Author Organization [employer] Address [address] [place] [address] 7 [place] [address] Care Team Providers Care Radiation Oncology Nurse Name Role Phone Cinthya Ray MD Primary Care Provider [phone] Mayito Acuña PharmD Unavailable [phone] Reason for Visit * Reason Onset Date Comments Med Refill 10/30/2023 Encounter Details Date Type Department Care Team (Late st Contact Info) Description 10/30/2023 Refill [facility] MEDICINE [address] [place], [place] [phone] Cinthya Ray MD [address] [place], [place] [phone] Social History Tobacco Use Types Packs/Day Years [...] Description 02/15/2025 9:00 AM EST Office Visit [facility] ADULT DENTAL 505 [place] [address] [facility] 505 [place] [address] 02/22/2025 9:00 AM EST Office Visit [facility] ADULT DENTAL [address] [place] [address] [facility] [address] [place] [address] 02/24/2025 1:45 PM EST Procedure Visit [facility] MEDICINE [address] [place] [address] Abigail Darling CNM [address] [place], [place] [phone] documented as of this encounter Goals Goal Patient Goal Type Associated Problems Recent Progress Patient-Stated? Author Blood Pressure < 140/90 Blood Pressure 110/78(2024 2:52 PM EST) No Mayito Acuña PharmD Hemoglobin A1c < 7 Result Component 6.5( 1:48 PM EST) No Acuña, Mayito, PharmD documented as of this encounter Visit Diagnoses Not on filedocumented in this encounter Additional Health Concerns Assessment Noted Time PHQ-9 Depression Total Score: 11 024 9:48 AM EDT documented as of this encounter Care Teams Radiation Oncology Nurse Relationship Specialty Start Date End Date Cinthya Ray MD [address] [place] [address] PCP - General Family Medicine 10/23/11 Mayito Acuña, PharmD [address] [place] [address] Pharmacist Internal Medicine 03/07/23 04/22/24 documented as of this encounter
--- OUTSIDE RECORDS SUMMARY | 2025-02-08 10:41 | XMS_ITS | Encounter Summary ---
Author Organization [employer] Address [address] [facility] 7 [place] [address] Care Team Providers Care Cushion Builder Name Role Phone Cinthya Ray MD Primary Care Provider [phone] Mayito Acuña PharmD Unavailable [phone] Reason for Visit * Reason Onset Date Comments Med Refill 09/29/2023 Encounter Details Date Type Department Care Team (Late st Contact Info) Description 09/29/2023 Refill [facility] CH[facility] MED & PEDS [address] [place], [place] [phone] Cinthya Ray MD [address] [place], [place] [phone] Type 2 diabetes mellitus with hyperglycemia, without long-term current use of insulin ([facility]) Social History Tobacco Use Types [...] Description 02/15/2025 9:00 AM EST Office Visit [facility] ADULT DENTAL [address] [place] [address] [facility] [address] [place] [address] 02/22/2025 9:00 AM EST Office Visit [facility] ADULT DENTAL [address] [place] [address] [facility] [address] [place] [address] 02/24/2025 1:45 PM EST Procedure Visit [facility] [address] [place], [place] [phone] Abigail Dalring CNM [address] [place], [place] [phone] documented as of this encounter Goals Goal [...] documented as of this encounter Care Teams Cushion Builder Relationship Specialty Start Date End Date Cinthya Ray MD [address] [place] [address] PCP - General Family Medicine 10/23/11 Mayito Acuña PharmD [address] [place] [address] Pharmacist Internal Medicine 03/07/23 04/22/24 documented as of this encounter
--- OUTSIDE RECORDS SUMMARY | 2025-02-08 10:41 | XMS_ITS | Encounter Summary ---
Author Organization [employer] Address [address] [place] [address] 7 [place] [address] Care Team Providers Care Nanotechnology Technician Name Role Phone Cinthya Ray MD Primary Care Provider [phone] Mayito Acuña PharmD Unavailable [phone] Reason for Visit * Reason Onset Date Comments Med Refill 08/06/2023 Encounter Details Date Type Department Care Team (Late st Contact Info) Description 08/06/2023 Refill [facility] MED[facility]INE [address] [place], [place] [phone] Cinthya Ray MD [address] [place], [place] [phone] Social History Tobacco Use Types Packs/Day Years [...] [facility] [address] [place] [address] [facility] [address] [place] [address] 02/22/2025 9:00 AM EST Office Visit [facility] ADULT DENTAL [address] [place] [address] [facility] [address] [place] [address] 02/24/2025 1:45 PM EST Procedure Visit [facility] MEDICINE [address] [place] [address] Abigail Darling CNM [address] [place], [place] [phone] documented as of this encounter Goals Goal [...] documented as of this encounter Care Teams Nanotechnology Technician Relationship Specialty Start Date End Date Cinthya Ray MD [address] [place] [address] PCP - General Family Medicine 10/23/11 Mayito Acuña, PharmD [address] [place] [address] Pharmacist Internal Medicine 03/07/23 04/22/24 documented as of this encounter
--- OUTSIDE RECORDS SUMMARY | 2025-02-08 10:41 | XMS_ITS | Encounter Summary ---
Author Organization [employer] Address [address] [facility] 7 [place] [address] Care Team Providers Care Title Assistant Name Role Phone Cinthya Ray MD Primary Care Provider [phone] Mayito Acuña PharmD Unavailable [phone] Encounter Details Date Type Department Care Team (Late st Contact Info) Description 06/30/2023 Orders Only [facility] MEDICINE [address] [place], [place] [phone] Mayito Acuña, PharmD 230 [place] [address] Type 2 diabetes mellitus with hyperglycemia, with long-term current use of insulin ([facility]) (Primary Dx) Social History Tobacco Use [...] Description 02/15/2025 9:00 AM EST Office Visit [facility] ADULT DENTAL 505 [place] [address] [facility] [address] [place] [address] 02/22/2025 9:00 AM EST Office Visit [facility] ADULT DENTAL [address] [place] [address] [facility] [address] [place] [address] 02/24/2025 1:45 PM EST Procedure Visit [facility] MEDICINE [address] [place] [address] Abigail Darling CNM [address] [place], [place] [phone] documented as of this encounter Goals Goal Patient Goal Type Associated Problems Recent Progress Patient-Stated? Author Blood Pressure < 140/90 Blood Pressure 110/78(2024 2:52 PM EST) No Mayito Acuña, Citlali Hemoglobin A1c < 7 Result Component 6.5( 1:48 PM EST) Mayito Rodriguez PharmD documented as of this encounter Procedures Procedure Name Priority Date/Time Associated Diagnosis Comments HEMATOXYLIN AND EOSIN STAIN Routine 06/30/2023 12:47 PM EDT Type 2 diabetes mellitus with hyperglycemia, with long-term current use of insulin ([facility]) documented in this encounter Results * Hematoxylin and Eosin Stain (06/30/2023 12:47 PM EDT) 06/30/2023 12:4 7 PM EDT 06/30/2023 1:27 PM EDT [facility] - 07/02/2023 9:30 AM EDT ----- ------- Name: Sonali Gill Age/Sex: 33/F : 1990 Unit#: [id number] Attend Dr: Jose Figueroa MD Re06/30/23 Status: [facility] Location: [facility] Disch: ----- ------- SPEC : [id number] RECD: 06/30/23 STATUS: TRUNG DEAN NUM: [id number] MELANIA: 06/30/23-[address]: Jose Figueroa MD [...] Name: Sonali Gill Age/Sex: [facility] 1990 [id number]#: [id number] Attend Dr: Jose Figueroa MD Re06/30/23 Status: [facility] Location: [facility] Disch: ----- ------- SPEC : [id number] RECD: 06/30/23 STATUS: TRUNG DEAN NUM: [id number] MELANIA: 06/30/[address] [facility] [address]: Jose Figueroa MD ENTERED: 06/30/23 SP [...] on A-C Copies To: Jose Figueroa MD [address] [place] [address] [place], [place] [phone] Cinthya Ray MD [address] [place] [address] ----- ------- Signed (signature on file) Esa Aguiar MD 07/02/23 0930 ----- ------- END OF REPORT us Generic External Data Provider LAB BLOOD ORDERAB LES Final Result [facility] [address] [place] [address] [phone] documented in this encounter Visit Diagnoses Diagnosis Type 2 diabetes mellitus with hyperglycemia, with long-term current use of insulin (HCC)- Primary documented in this encounter Additional Health Concerns Assessment Noted Time PHQ-9 Depression Total Score: 0 06/10/19 24 2:55 PM EDT documented as of this encounter Care Teams Title Assistant Relationship Specialty Start Date End Date Cinthya Ray MD [address] [place] [address] PCP - General Family Medicine 10/23/11 Mayito Acuña, DyanD [address] [place] [address] Pharmacist Internal Medicine 03/07/23 04/22/24 documented as of this encounter
--- OUTSIDE RECORDS SUMMARY | 2025-02-08 10:41 | XMS_ITS | Encounter Summary ---
Author Organization [employer] Address [address] [facility] 7t [place] [address] Care Team Providers Care Library Customer Service Clerk Name Role Phone Cinthya Ray MD Primary Care Provider [phone] Encounter Details Date Type Department Care Team (Latest Contact Info) Description 02/06/2025 Travel Social History Tobacco Use Types Packs/Day [...] 02/15/2025 9:00 AM EST Office Visit [facility] ADULT [facility] [address] [place] [address] Shani Thompson 505 [place] [address] 02/22/2025 9:00 AM EST Office Visit [facility] ADULT [facility] [address] [place] [address] [facility] [address] [place] [address] 02/24/2025 1:45 PM EST Procedure Visit [facility]ICINE 230 [place] [address] Abigail Darling CNM [address] [place] [address] documented as of this encounter Goals Goal Patient Goal Type Associated Problems Recent Progress Patient-Stated? Author Blood Pressure < 140/90 Blood Pressure 110/78(2024 2:52 PM EST) No Mayito Acuña, Citlali Hemoglobin A1c < 7 Result Component 6.5( 1:48 PM EST) No Mayito Acuña, Citlali Help patients manage their type 2 diabetes Care Plan Help patients manage their type 2 diabetes No MoeJohnathanTien Patient has chronic kidney disease Care Plan Patient has chronic kidney disease No Moe Tien Patient has chronic kidney disease Care Plan [...] chronic kidney disease No Janey Jaramillo [place] documented as of this encounter Visit Diagnoses [...] 02/02/2025 Patient has chronic kidney disease 02/02/2025 Assessment Noted Time PHQ-9 Depression Total Score: 14 025 3:57 PM EDT documented as of this encounter Care Teams Library Customer Service Clerk Relationship Specialty Start Date End Date Cinthya Ray MD [address] [place] [address] PCP - General Family Medicine 10/23/11 documented as of this encounter
--- OUTSIDE RECORDS SUMMARY | 2025-02-08 10:41 | XMS_ITS | Encounter Summary ---
Author Organization [employer] Address [address] [facility] 7 [place] [address] Care Team Providers Care Press Reader Name Role Phone Cinthya Ray MD Primary Care Provider [phone] Reason for Visit * Reason Comments Care Coordination CHW outreach for SDO H housing search-referral completed Encounter Details Date Type Department Care Team (Latest Contact Info) Description 02/07/2025 Patient Outreach [facility] MEDICINE [address] [place] [address] Cinthya Ray MD [address] [place] [address] Care Coordination (CHW outreach for SDOH housing search-referral completed ) Social History Tobacco Use Types Packs/Day Years [...] your housing situation today? I have trev sing 02/07/[address] you li [...] AM EDT documented as of this encounter Progress Notes * David Ceballos - 02/07/2025 3:34 PM EST CHW David Ceballos, placed outbound call to patient for assistance with SDOH as a referral was received by the provider. Patient's name and were confirmed. Patient screened positive for the following [facility] housing insecurities. Patient states is staying with her friend but is searching for her own apartment. CHW referral patient to the list of application mail out to her address on file. Patient verbalizes understanding, and able to agree with plan to follow up herself. Patient educated on extended clinic hours on Mondays through Wednesdays, and Walk-In Urgent Care Located in [facility]. Patient provided with after-hours line for [facility], , which offer night time triage service and option to transfer to chief juvenile probation officer provider if needed. documented in this encounter Plan of Treatment Upcoming Encounters Date Type Department Care Team (Late st Contact Info) Description 02/15/2025 9:00 AM EST Office Visit [facility] ADULT DENTAL [address] [place], [place] [phone] Thompson Mcleod 505 [place] [address] 02/22/2025 9:00 AM EST Office Visit [facility] ADULT DENTAL [address] [place], [place] [phone] Thompson [facility] 505 [place] [address] 02/24/2025 1:45 PM EST Procedure Visit [facility] [address] [place] [address] Abigail Darling CNM [address] [place] [address] documented as of this encounter Goals Goal [...] David Ceballos documented as of this encounter Visit Diagnoses [...] documented as of this encounter Care Teams Press Reader Relationship Specialty Start Date End Date Cinthya Ray MD [address] [place] [address] PCP - General Family Medicine 10/23/11 documented as of this encounter
--- OUTSIDE RECORDS SUMMARY | 2025-02-08 10:41 | XMS_ITS | Encounter Summary ---
Author Organization [employer] Address [address] [facility] 7 [place] [address] Care Team Providers Care Audio Production Engineer Name Role Phone Cinthya Ray MD Primary Care Provider [phone] Mayito Acuña PharmD Unavailable [phone] Reason for Visit * Reason Onset Date Comments Results 12/09/2022 Encounter Details Date Type Department Care Team ([facility] st Contact Info) Description 12/09/[address] [facility] MEDICINE [address] [place], [place] [phone] Cinthya Ray MD [address] [place], [place] [phone] Results Social History Tobacco Use Types Packs/Day [...] to US results. Please contact pt at [phone] documented in this encounter Plan of Treatment Upcoming Encounters Date Type Department Care Team (Late st Contact Info) Description 02/15/2025 9:00 AM EST Office Visit [facility] ADULT DENTAL [address] [place] [address] [facility] 505 [place] [address] 02/22/2025 9:00 AM EST Office Visit [facility] ADULT DENTAL [address] [place] [address] Tony Mcleodio [address] [place] [address] 02/24/2025 1:45 PM EST Procedure Visit [facility] MEDICINE [address] [place] [address] Abigail Darling CNM [address] [place] [address] documented as of this encounter Visit Diagnoses Not on filedocumented in this encounter Care Teams Audio Production Engineer Relationship Specialty Start Date End Date Sakurai, Cinthya, MD [address] [place], [place] [phone] PCP - General Family Medicine 10/23/11 Mayito Acuña, DyanD [address] [place] [address] Pharmacist Internal Medicine 03/07/23 04/22/24 documented as of this encounter
--- OUTSIDE RECORDS SUMMARY | 2025-02-08 10:41 | XMS_ITS | Encounter Summary ---
Author Organization [employer] Address [address] [place] [address] 7 [place] [address] Care Team Providers Care Vice President Of Finance Name Role Phone Cinthya Ray MD Primary Care Provider [phone] Mayito Acuña PharmD Unavailable [phone] Reason for Visit * Reason Comments Med Refill Encounter Details Date Type Department Care Team (Late st Contact Info) Description 08/31/2022 Refill [facility] MEDICINE [address] [place] [address] Starla Nuñez MD 230 [place], [place] [phone] Injury of head, initial encounter Social History [...] Description 02/15/2025 9:00 AM EST Office Visit [facility] ADULT DENTAL [address] [facility] [place] [address] Rhona Mcleodricio [address] [place] [address] 02/22/2025 9:00 AM EST Office Visit [facility] ADULT DENTAL 505 [place] [address] Tony Mcleodio 505 [place], [place] [phone] 02/24/2025 1:45 PM EST Procedure Visit [facility] MEDICINE [address] [place] [address] Abigail Darling CNM [address] [place] [address] documented as of this encounter Visit Diagnoses Diagnosis Injury of head, initial encounter documented in this encounter Care Teams Vice President Of Finance Relationship Specialty Start Date End Date Cinthya Ray MD [address] [place] [address] PCP - General Family Medicine 10/23/11 Mayito Acuña, Citlali [address] [place] [address] Pharmacist Internal Medicine 03/07/23 04/22/24 documented as of this encounter
--- OUTSIDE RECORDS SUMMARY | 2025-02-08 10:41 | XMS_ITS | Encounter Summary ---
Author Organization [employer] Address [address] [facility] 7 [place] [address] Care Team Providers Care Grain Elevator Clerk Name Role Phone Cinthya Ray MD Primary Care Provider [phone] Mayito Acuña PharmD Unavailable [phone] Reason for Visit * Reason Onset Date Comments Med Refill 03/12/2024 Encounter Details Date Type Department Care Team (Late st Contact Info) Description 03/12/2024 Refill [facility] CHC MED & PEDS [address] [place], [place] [phone] Cinthya Ray MD [address] [place], [place] [phone] Type 2 diabetes mellitus with hyperglycemia, without long-term current use of insulin ([facility]) Social History Tobacco [...] [facility] ADULT DENTAL [address] [place] [address] [facility] Thompson [address] [place] [address] 02/22/2025 9:00 AM EST Office Visit [facility] ADULT DENTAL [address] [place] [address] [facility] Thompson [address] [place] [address] 02/24/2025 1:45 PM EST Procedure Visit [facility] MEDICINE [address] [place] [address] Abigail Darling, [employer]OCO [address] [place], [place] [phone] documented as of this encounter Goals Goal [...] documented as of this encounter Care Teams Grain Elevator Clerk Relationship Specialty Start Date End Date Cinthya Ray MD [address] [place] [address] PCP - General Family Medicine 10/23/11 Mayito Acuña PharmD [address] [place] [address] Pharmacist Internal Medicine 03/07/23 04/22/24 documented as of this encounter
--- OUTSIDE RECORDS SUMMARY | 2025-02-08 10:41 | XMS_ITS | Encounter Summary ---
Author Organization [employer] Address [address] [facility] 7t [place] [address] Care Team Providers Care Ammonia Refrigeration Technician Name Role Phone Cinthya Ray MD Primary Care Provider Encounter Details Date Type Department Care Team (Latest Contact Info) Description 02/07/2025 Travel Social History Tobacco Use Types Packs/Day [...] 9:00 AM EST Office Visit [facility] ADULT DENTAL [address] [place] [address] Shani Thompson [address] [place] [address] 02/22/2025 9:00 AM EST Office Visit [facility] ADULT DENTAL [address] [place] [address] [facility] [address] [place] [address] 02/24/2025 1:45 PM EST Procedure Visit [facility] MEDICINE [address] [place] [address] Abigail Darling CNM [address] [place] [address] documented as of this encounter Goals Goal Patient Goal Type Associated Problems Recent Progress Patient-Stated? Author Blood Pressure < 140/90 Blood Pressure 110/78(2024 2:52 PM EST) No Mayito Acuña, Citlali Hemoglobin A1c < 7 Result Component 6.5( 1:48 PM EST) No Mayito Acuña, Citlali Help patients manage their type 2 diabetes Care Plan Help patients manage their type 2 diabetes No MoeTien Patient has chronic kidney disease Care Plan [...] documented as of this encounter Care Teams Ammonia Refrigeration Technician Relationship Specialty Start Date End Date Cinthya Ray MD [address] [place] [address] PCP - General Family Medicine 10/23/11 documented as of this encounter
--- OUTSIDE RECORDS SUMMARY | 2025-02-08 10:41 | XMS_ITS | Encounter Summary ---
Author Organization [email or web address] Address [address] [place] [address] [facility] [place] [address] Care Team Providers Care Bread Distributor Name Role Phone Cinthya Ray MD Primary Care Provider [phone] Mayito Acuña PharmD Unavailable [phone] Reason for Referral * Consultation (Routine) - Closed Specialty Diagnoses / Procedures Referred By Contcarly t Referred To Contact Pharmacy Diagnoses Type 2 diabetes mellitus with hyperglycemia, with long-term current use of insulin (HCC) Cinthya Ray MD [address] [place] [address] Phone: tel: fax: Referral ID Status Reason Start Date Expiration Date V isits Requested Visits Authorized [id number] Closed Consult and Treat 12/23/2023 12/22/2024 6 6 Encounter Details Date Type Department Care Team (Late st Contact Info) Description 12/23/2023 Orders Only [facility] [address] [place], [place] [phone] Cinthya Ray MD [address] [place], [place] [phone] Type 2 diabetes mellitus with hyperglycemia, with [...] [facility] [address] [place] [address] Thompson [facility]cleod [address] [place] [address] 02/22/2025 9:00 AM EST Office Visit [facility] [address] [place], [place] [phone] [facility] [address] [place], [place] [phone] 02/24/2025 1:45 PM EST Procedure Visit [facility] [address] [place], [place] [phone] Abigail Darling CNM [address] [place], [place] [phone] Scheduled Referrals Name Type Priority Associated Diagnoses Orde r Schedule Referral to Pharmacy CDTM Outpatient Referral Routine Type 2 diabetes mellitus with hyperglycemia, with long-term current use of insulin ([facility]) Ordered: 12/23/2023 documented as of this encounter [...] hyperglycemia, with long-term current use of insulin ([facility])- Primary documented in this encounter Additional Health Concerns Assessment Noted Time PHQ-9 Depression Total Score: 11 024 9:48 AM EDT documented as of this encounter Care Teams Bread Distributor Relationship Specialty Start Date End Date Cinthya Ray MD [address] [place] [address] PCP - General Family Medicine 10/23/11 Mayito Acuña PharmD [address] [place] [address] [phone] Pharmacist Internal Medicine 03/07/23 04/22/24 documented as of this encounter
--- OUTSIDE RECORDS SUMMARY | 2025-02-08 10:41 | XMS_ITS | Encounter Summary ---
Author Organization [employer] Address [address] [facility] 7 [place] [address] Care Team Providers Care Equipment Engineer Name Role Phone Cinthya Ray MD Primary Care Provider [phone] Mayito Acuña PharmD Unavailable [phone] Reason for Visit * Reason Onset Date Comments Med Refill 01/03/2023 Encounter Details Date Type Department Care Team (Late st Contact Info) Description 01/03/2023 Refill [facility] [address] [place], [place] [phone] Cinthya Ray MD [address] [place], [place] [phone] Social History Tobacco Use Types Packs/Day Years [...] Description 02/15/2025 9:00 AM EST Office Visit [facility] [address] [place] [address] [facility] 505 [place] [address] 02/22/2025 9:00 AM EST Office Visit [facility] [address] [place] [address] [facility] [address] [place] [address] 02/24/2025 1:45 PM EST Procedure Visit [facility] [address] [place] [address] Abigail Darling CNM [address] [place] [address] documented as of this encounter Visit Diagnoses Not on filedocumented in this encounter Care Teams Equipment Engineer Relationship Specialty Start Date End Date Cinthya Ray MD [address] [place] [address] PCP - General Family Medicine 10/23/11 Mayito Acuña, DyanD [address] [place] [address] Pharmacist Internal Medicine 03/07/23 04/22/24 documented as of this encounter
--- OUTSIDE RECORDS SUMMARY | 2025-02-08 10:41 | XMS_ITS | Encounter Summary ---
Author Organization [employer] Address [address] [place] [address] 7 [place] [address] Care Team Providers Care Aeroplane Pilot Name Role Phone Cinthya Ray MD Primary Care Provider [phone] Reason for Visit * Reason Comments Med Change Request Encounter Details Date Type Department Care Team ([facility] st Contact Info) Description 07/20/2024 Refill [facility] [address] [place], [place] [phone] Cinthya Ray MD [address] [place] [address] Type 2 diabetes mellitus with hyperglycemia, with long-term current use of insulin ([facility]) Social History Tobacco Use Types [...] [facility] ADULT D[facility] [address] [place] [address] Rhona [facility]cleodricio [address] [place] [address] 02/22/2025 9:00 AM EST Office Visit [facility] ADULT [facility] 505 [place] [address] Shani Thompson [address] [place] [address] 02/24/2025 1:45 PM EST Procedure Visit [facility] [address] [place], [place] [phone] Abigail Darling CNM [address] [place] [address] documented as of this encounter Goals Goal [...] documented as of this encounter Care Teams Aeroplane Pilot Relationship Specialty Start Date End Date Cinthya Ray MD [address] [place] [address] PCP - General Family Medicine 10/23/11 documented as of this encounter
--- OUTSIDE RECORDS SUMMARY | 2025-02-08 10:41 | XMS_ITS | Encounter Summary ---
Author Organization [employer] Address [address] [place] [address] 7 [place] [address] Care Team Providers Care Machine Former Name Role Phone Cinthya Ray MD Primary Care Provider [phone] Mayito Acuña PharmD Unavailable [phone] Reason for Visit * Reason Onset Date Comments Appointment Request 09/02/2022 Encounter Details Date Type Department Care Team ([facility] st Contact Info) Description 09/02/2022 Telephone [facility] [address] [place], [place] [phone] Cinthya Ray MD [address] [place], [place] [phone] Appointment Request Social History Tobacco Use Types [...] her kidney failure.' Please contact pt at [phone] documented in this encounter Plan of Treatment Upcoming Encounters Date Type Department Care Team (Late st Contact Info) Description 02/15/2025 9:00 AM EST Office [facility] ADULT D[facility] [address] [place] [address] [facility] [address] [place] [address] 02/22/2025 9:00 AM EST Office [facility] [address] [place] [address] [facility] [address] [place] [address] 02/24/2025 1:45 PM EST Procedure Visit [facility] [address] [place] [address] Abigail Darling CNM [address] [place] [address] documented as of this encounter Visit Diagnoses Not on filedocumented in this encounter Care Teams Machine Former Relationship Specialty Start Date End Date Cinthya Ray MD [address] [place] [address] PCP - General Family Medicine 10/23/11 Mayito Acuña, PharmD [address] [place] [phone] Pharmacist Internal Medicine 03/07/23 04/22/24 documented as of this encounter
--- OUTSIDE RECORDS SUMMARY | 2025-02-08 10:41 | XMS_ITS | Encounter Summary ---
Author Organization [employer] Address [address] [facility] 7 [place] [address] Care Team Providers Care Kettle Girl Name Role Phone Cinthya Ray MD Primary Care Provider [phone] Mayito Acuña PharmD Unavailable [phone] Encounter Details Date Type Department Care Team (Late st Contact Info) Description 09/15/2023 Orders Only [facility] [address] [place], [place] [phone] Cinthya Ray MD [address] [place] [address] Type 2 diabetes mellitus with hyperglycemia, without long-term current use of insulin ([facility]) Social History Tobacco Use Types [...] 9:00 AM EST Office Visit [facility] [address] [place] [address] [facility] [address] [place] [address] 02/22/2025 9:00 AM EST Office Visit [facility]ULT [facility] [address] [place] [address] [facility] [address] [place] [address] 02/24/2025 1:45 PM EST Procedure Visit [facility] [address] [place] [address] Abigail Darling CNM [address] [place], [place] [phone] documented as of this encounter Goals Goal [...] documented as of this encounter Care Teams Kettle Girl Relationship Specialty Start Date End Date Cinthya Ray MD [address] [place] [address] PCP - General Family Medicine 10/23/11 Mayito Acuña, PharmD [address] [place] [address] Pharmacist Internal Medicine 03/07/23 04/22/24 documented as of this encounter
--- OUTSIDE RECORDS SUMMARY | 2025-02-08 10:41 | XMS_ITS | Encounter Summary ---
Author Organization [employer] Address 75 [facility] 7 [place] [address] Care Team Providers Care Splicer Apprentice Name Role Phone Cinthya Ray MD Primary Care Provider Mayito Acuña PharmD Unavailable [phone] Reason for Visit * Reason Onset Date Comments Med Refill 10/30/2023 Encounter Details Date Type Department Care Team (Late st Contact Info) Description 10/30/2023 Refill [facility] [address] [place], [place] [phone] Cinthya Ray MD [address] [place], [place] [phone] Type 2 diabetes mellitus with hyperglycemia, without long-term current use of insulin ([facility]) Social History Tobacco [...] Description 02/15/2025 9:00 AM EST Office Visit [facility] ADULT DENT[facility] [address] [place] [address] [facility] [address] [place] [address] 02/22/2025 9:00 AM EST Office Visit [facility] ADULT D[facility] [address] [place] [address] [facility] [address] [place] [address] 02/24/2025 1:45 PM EST Procedure Visit [facility] [address] [place], [place] [phone] Abigail Darling CNM [address] [place], [place] [phone] documented as of this encounter Goals Goal [...] documented as of this encounter Care Teams Splicer Apprentice Relationship Specialty Start Date End Date Cinthya Ray MD [address] [place] [address] PCP - General Family Medicine 10/23/11 Mayito Acuña PharmD [address] [place] [address] Pharmacist Internal Medicine 03/07/23 04/22/24 documented as of this encounter
[2025-02-08 11:21] LABS: MANUAL DIFF FLAG NO
[2025-02-08 11:27] LABS: Hematocrit 36.7 % (37.0-47.0); Hemoglobin 11.6 g/dl (12.0-16.0); Imm Gran Abs Auto 0.01 X10*3/uL (0.00-0.03); Imm Gran Pct Auto 0.2 % (0.0-0.4); Lymphocytes Absolute Auto 1.8 X10*3/uL (1.2-4.9); Mean Corpuscular HGB Conc 31.6 g/dl (31.0-35.0); Mean Corpuscular Hemoglobin 24.4 pg (27.0-33.0); Mean Corpuscular Volume 77.3 fL (80.0-98.0); NRBC Abs Auto 0.000 X10*3/uL (0.0-0.012); NRBC Pct Auto 0.0 /100WBC (0.0-0.2); Platelet Count 259 X10*3/uL (160-400); Red Blood Count 4.75 X10*6/uL (4.20-5.50); Reticulocytes Absolute 0.071 X10*6/uL (0.026-0.095); White Blood Count 5.9 X10*3/uL (4.8-10.8)
[2025-02-08 11:38] LABS: Hemoglobin A1C 151.2095 umol/L
[2025-02-08 11:56] LABS: Cholesterol 169 mg/dL (<200); HDL Cholesterol 32 mg/dL (>40); Triglycerides 164 mg/dL (<150)
[2025-02-08 12:21] LABS: HBsAGNum1 0.32 S/CO (0.00-0.99); HIV Num 1 0.07 S/CO (0.00-0.99); Hepatitis B Surface Antigen Negative (Negative); ~HepC Num1 0.08 S/CO (0.00-0.79); ~Hepatitis C Antibody Nonreactive (Nonreactive)
[2025-02-08 12:24] LABS: Ferritin 8 ng/mL (10-122)
[2025-02-08 12:28] LABS: Syphilis Screen Reactive (Nonreactive)
[2025-02-08 12:30] LABS: Folate 7.0 ng/mL (> or = 4.0); Vitamin B12 443 pg/mL (200-900)
[2025-02-08 12:35] LABS: Alanine Aminotransferase 20 U/L (0-31); Albumin Level 3.9 g/dL (3.5-5.0); Alkaline Phosphatase 79 U/L (39-117); Anion Gap 10 (12-20); Aspartate Amino Transferase 25 U/L (5-31); Blood Urea Nitrogen 9 mg/dL (9-16); Calcium 8.4 mg/dL (8.4-10.2); Carbon Dioxide 26 mmol/L (22-29); Chloride 107 mmol/L (96-108); Cholesterol 171 mg/dL (<200); Estimated Glomerular Filt Rate > 60; HDL Cholesterol 30 mg/dL (>40); Iron 27 mcg/dL (30-160); Percent Iron Saturation 8 % (15-50); Potassium 4.0 mmol/L (3.3-5.1); Sodium 139 mmol/L (135-145); Total Iron Binding Capacity 352 mcg/dL (228-428); Total Protein 7.1 g/dL (6.5-8.0); Triglycerides 167 mg/dL (<150); Unsaturated Iron Binding 325 ug/dL
[2025-02-08 13:06] LABS: Microalbum/Creatinine Ratio Ur 6.1 ug/mg cr (<30)
[2025-02-08 13:29] LABS: Reflex LDLD? No
== END 2025-02-08 08:47 ==
LOC: HO.HHCL 08:46
PROVIDERS: Physician Assistant; PCP Family Medicine; Visit Provider Family Medicine
DX: Z11.59 Encounter for screening for other viral diseases (principal); Z11.4 Encounter for screening for human immunodeficiency virus [HIV]; E11.649 Type 2 diabetes mellitus with hypoglycemia without coma; I95.9 Hypotension, unspecified; E78.2 Mixed hyperlipidemia; R00.0 Tachycardia, unspecified; R63.4 Abnormal weight loss; Z20.2 Contact with and (suspected) exposure to infections with a predominantly sexual mode of transmission; Z79.4 Long term (current) use of insulin
CPT/HCPCS: 36415; 80053; 80061; 82043; 82570; 82607; 82728; 82746; 83036; 83540; 84443; 85025; 85045; 86592; 86780; 86803; 87340; 87389